=== PATIENT | male | born 1950 | race Caucasian/White ===

== ENCOUNTER 2020-08-07 11:10 | Outpatient (REF) | payer MEDICARE, BC, SELFPAY ==
[2020-08-07 13:48] LABS: MANUAL DIFF FLAG NO
[2020-08-07 13:54] LABS: Basophils Percent Auto 0.4 % (0-2); Eosinophils Absolute Auto 0.2 X10*3/uL (0.0-0.4); Eosinophils Percent Auto 2.4 % (0-4); Hematocrit 42.1 % (42-52); Hemoglobin 14.6 g/dl (14.0-18.0); Imm Gran Abs Auto 0.03 X10*3/uL (0.00-0.03); Imm Gran Pct Auto 0.3 % (0.0-0.4); Lymphocytes Absolute Auto 2.2 X10*3/uL (1.2-4.9); Lymphocytes Percent Auto 23.8 % (20-40); Mean Corpuscular HGB Conc 34.7 g/dl (31.0-36.0); Mean Corpuscular Hemoglobin 31.6 pg (27.0-33.0); Mean Corpuscular Volume 91.1 fL (80-98); Mean Platelet Volume 9.6 fL (9.4-12.4); Monocytes Absolute Auto 0.8 X10*3/uL (0.1-1.2); Monocytes Percent Auto 8.9 % (2-11); Neutrophils Percent Auto 64.2 % (45-73); Platelet Count 319 X10*3/uL (160-400); Red Blood Count 4.62 X10*6/uL (4.60-5.80); Red Cell Distribution Width 13.2 % (11.0-16.0); White Blood Count 9.3 X10*3/uL (4.8-10.8)
[2020-08-07 14:05] LABS: Estimated Average Glucose 140 mg/dL; Hemoglobin A1c % 6.5 %
[2020-08-07 14:33] LABS: Alanine Aminotransferase 22 U/L (0-40); Albumin Level 4.5 g/dL (3.5-5.0); Alkaline Phosphatase 66 U/L (39-117); Anion Gap 14 (12-20); Aspartate Amino Transferase 19 U/L (5-37); Bilirubin Total 0.6 mg/dL (0.0-1.0); Blood Urea Nitrogen 19 mg/dL (9-16); Calcium 10.3 mg/dL (8.4-10.2); Carbon Dioxide 26 mmol/L (22-29); Chloride 100 mmol/L (96-108); Estimated Glomerular Filt Rate > 60; Glucose Random 133 mg/dL (60-115); Potassium 4.7 mmol/l (3.3-5.1); Sodium 135 mmol/L (135-145); Total Protein 7.2 g/dL (6.5-8.0)
== END 2020-08-07 11:11 | disposition home or self-care (01) ==
LOC: HO.10HDL 11:10
PROVIDERS: Visit Provider Internal Medicine
DX: D64.9 Anemia, unspecified (principal); I48.0 Paroxysmal atrial fibrillation; R73.03 Prediabetes
CPT/HCPCS: 36415; 80053; 83036; 85025

== ENCOUNTER 2020-09-06 10:47 | Outpatient (REF) | payer BC, SELFPAY ==
[2020-09-06 15:03] LABS: PSA,Total (Free>4and<10) 4.24 ng/mL (0.00-4.00)
[2020-09-07 12:01] LABS: Percent Free Prostate Spec Ag 22 % (calc) (>25); Prostate Specific Ag Total 4.5 ng/mL (< OR = 4.0)
== END 2020-09-06 10:48 | disposition home or self-care (01) ==
LOC: HO.10HDL 10:47
PROVIDERS: Visit Provider Urology
DX: R97.20 Elevated prostate specific antigen [PSA] (principal)
CPT/HCPCS: 84153

== ENCOUNTER 2020-09-10 12:35 | Outpatient (REF) | payer MEDICARE, SELFPAY ==
--- NOTE | 2020-09-10 13:04 | XR_ITS ---
EXAMINATION: XR FOOT, LEFT CLINICAL INFORMATION: Arthritis COMPARISON: None TECHNIQUE: AP, lateral, and oblique views of the left foot. FINDINGS: There is arthritis at the first MTP and MTT joints with joint space narrowing and osteophyte formation. There is an old healed distal fibular fracture and plate and screws. No acute fracture or dislocation is seen. There is pes planus. Soft tissues are unremarkable. XR/XR foot LT min 3V IMPRESSION: Old trauma to the distal fibula. Arthritis at the first MTP and MTT joints. Pes planus.
[2020-09-10 13:36] LABS: MANUAL DIFF FLAG NO
[2020-09-10 13:53] LABS: Basophils Absolute Auto 0.1 X10*3/uL (0.0-0.2); Basophils Percent Auto 0.6 % (0-2); Eosinophils Absolute Auto 0.2 X10*3/uL (0.0-0.4); Eosinophils Percent Auto 1.5 % (0-4); Hematocrit 39.2 % (42-52); Hemoglobin 13.5 g/dl (14.0-18.0); Imm Gran Abs Auto 0.04 X10*3/uL (0.00-0.03); Imm Gran Pct Auto 0.4 % (0.0-0.4); Lymphocytes Absolute Auto 2.1 X10*3/uL (1.2-4.9); Mean Corpuscular HGB Conc 34.4 g/dl (31.0-36.0); Mean Corpuscular Hemoglobin 31.3 pg (27.0-33.0); Mean Corpuscular Volume 90.7 fL (80-98); Mean Platelet Volume 8.9 fL (9.4-12.4); Monocytes Absolute Auto 0.8 X10*3/uL (0.1-1.2); Monocytes Percent Auto 7.6 % (2-11); Neutrophils Absolute Auto 7.3 X10*3/uL (2.0-8.3); Neutrophils Percent Auto 69.9 % (45-73); Platelet Count 507 X10*3/uL (160-400); Red Blood Count 4.32 X10*6/uL (4.60-5.80); Red Cell Distribution Width 12.8 % (11.0-16.0); White Blood Count 10.4 X10*3/uL (4.8-10.8)
[2020-09-10 14:19] LABS: Alanine Aminotransferase 17 U/L (0-40); Albumin Level 4.3 g/dL (3.5-5.0); Alkaline Phosphatase 79 U/L (39-117); Anion Gap 16 (12-20); Aspartate Amino Transferase 15 U/L (5-37); Bilirubin Total 0.4 mg/dL (0.0-1.0); Blood Urea Nitrogen 17 mg/dL (9-16); Calcium 9.8 mg/dL (8.4-10.2); Carbon Dioxide 25 mmol/L (22-29); Chloride 99 mmol/L (96-108); Estimated Glomerular Filt Rate > 60; Glucose Random 138 mg/dL (60-115); Potassium 4.8 mmol/l (3.3-5.1); Sodium 135 mmol/L (135-145); Total Protein 7.3 g/dL (6.5-8.0)
[2020-09-10 14:37] LABS: Estimated Average Glucose 151 mg/dL; Hemoglobin A1c % 6.9 %
== END 2020-09-10 12:36 | disposition home or self-care (01) ==
LOC: HO.LAB 12:35
PROVIDERS: Visit Provider Internal Medicine
DX: L03.032 Cellulitis of left toe (principal)
CPT/HCPCS: 36415; 73630; 80053; 83036; 85025; 86140; 87071; 87147; 87186; 87205

== ENCOUNTER → 2020-09-11 15:08 | Outpatient (BNVA) | payer SELFPAY | PROVIDERS: PCP Internal Medicine; Visit Provider Surgery | DX: Z76.89 Persons encountering health services in other specified circumstances (principal) ==

== ENCOUNTER → 2020-09-13 12:58 | Outpatient (BNVA) | payer MEDICARE, BC, SELFPAY | PROVIDERS: PCP Internal Medicine; Visit Provider Surgery | DX: M86.9 Osteomyelitis, unspecified (principal) | CPT/HCPCS: 99211 ==

== ENCOUNTER → 2020-09-18 10:22 | Outpatient (BNVA) | payer BC, MEDICARE, SELFPAY | PROVIDERS: PCP Internal Medicine; Referring Provider Internal Medicine; Visit Provider Surgery | DX: Z76.89 Persons encountering health services in other specified circumstances (principal) ==

== ENCOUNTER → 2020-09-19 11:11 | Outpatient (BNVA) | payer SELFPAY | PROVIDERS: PCP Internal Medicine; Visit Provider Internal Medicine | DX: M86.9 Osteomyelitis, unspecified (principal) | CPT/HCPCS: 99212 ==

== ENCOUNTER → 2020-09-25 09:30 | Outpatient (BNVA) | payer SELFPAY | PROVIDERS: PCP Internal Medicine; Visit Provider Surgery | DX: M86.9 Osteomyelitis, unspecified (principal); L97.529 Non-pressure chronic ulcer of other part of left foot with unspecified severity | CPT/HCPCS: 99212 ==

== ENCOUNTER → 2020-10-08 10:20 | Outpatient (BNVA) | payer MEDICARE, BC, SELFPAY | PROVIDERS: PCP Internal Medicine; Visit Provider Internal Medicine | DX: L97.529 Non-pressure chronic ulcer of other part of left foot with unspecified severity (principal); M86.9 Osteomyelitis, unspecified | CPT/HCPCS: 99212 ==

== ENCOUNTER 2020-10-10 11:36 | Inpatient (IN) | payer MEDICARE, BC, SELFPAY ==
[2020-10-04 12:36] VITALS: BMI 27.5
--- NOTE | 2020-10-04 14:42 | P.CONAN_ITS ---
Documented by User: Nikky Francisco 10/04/20 14:45 HPI - Anesthesia Eval Consult details Narrative: 70yo M for Left Partial Amputation 2nd Toe PMFSH Past Medical History Medical History (Updated 10/10/20 @ 11:34 by Paula He) Amputated toe of right foot Arrhythmia History of amputation of toe History of heart valve abnormality History of neuropathy History of tachycardia On anticoagulant therapy Osteomyelitis of second toe of left foot Pre-diabetes Ulcer of left second toe Family History Family History Mother No problems noted. Surgical History Surgical History (Updated 10/04/20 @ 12:52 by Sunita Pacheco) Hx of amputation Status post ORIF of fracture of ankle Social History Social History Alcohol intake: never Smoking Status: Never smoker Use of substances other than those prescribed or required for medical reasons: No Advance Directives: Yes Advance Directives Information Provided: Yes Advance Directives on File: Yes Advance Directives Date on File: 08/07/20 Recently lost weight without trying: No Meds Allergies Allergy/AdvReac Type Severity Reaction Status Date / Time penicillin V Allergy Intermediate rash Verified 10/04/20 12:52 Erythromycin Allergy Intermediate diarrhea Uncoded 10/04/20 12:52 Home Medications Medication Instructions Recorded Confirmed Type apixaban 5 mg tablet 5 mg PO BID 09/11/20 10/04/20 History metoprolol succinate 25 mg 25 mg PO DAILY 09/11/20 10/04/20 History tablet,extended release 24 hr doxycycline monohydrate 1 cap PO BID 10/04/20 10/04/20 History Exam Exam Date and Time: October 04, 2020 1442 Height,Weight and Vital Signs: Height 6 ft 3 in Weight 99.79 kg Pertinent Lab Results Pertinent Lab Results: Laboratory Tests 09/10/20 09/10/20 13:00 13:00 WBC 10.4 Hgb 13.5 L Hct 39.2 L Plt Count 507 H D Sodium 135 Potassium 4.8 Chloride 99 Carbon Dioxide 25 BUN 17 H Creatinine 0.97 Narrative Narrative: EKG 07/11/20: SR with P SVCs @ 74 Echo 10/2019: Nml LV sys function with mild LVH, impaired relaxation, elevated filling pressures; Mild dilated LA; Mod thickening of anterior mitral leaflet with mild prolapse with mild to mod eccentric MR posteriorly directed; Normal RV sys pressure; No pericardial effusion Assessment and Plan Assessment Anesthesia Assessment: Chart Reviewed Documented by User: Paula He 10/10/20 11:52 [facility] Past Medical History Medical History (Updated 10/10/20 @ 11:34 by Paula He) Amputated toe of right foot Arrhythmia History of amputation of toe History of heart valve abnormality History of neuropathy History of tachycardia On anticoagulant therapy Osteomyelitis of second toe of left foot Pre-diabetes Ulcer of left second toe Family History Family History Mother No problems noted. Surgical History Surgical History (Updated 10/04/20 @ 12:52 by Sunita Pacheco) Hx of amputation Status post ORIF of fracture of ankle History of Problems with Anesthesia: No Social History Social History Alcohol intake: never Smoking Status: Never smoker Use of substances other than those prescribed or required for medical reasons: No Advance Directives: Yes Advance Directives Information Provided: Yes Advance Directives on File: Yes Advance Directives Date on File: 08/07/20 Recently lost weight without trying: No Meds Allergies Allergy/AdvReac Type Severity Reaction Status Date / Time penicillin V Allergy Intermediate rash Verified 10/04/20 12:52 Erythromycin Allergy Intermediate diarrhea Uncoded 10/04/20 12:52 Home Medications Medication Instructions Recorded Confirmed Type apixaban 5 mg tablet 5 mg PO BID 09/11/20 10/04/20 History metoprolol succinate 25 mg 25 mg PO DAILY 09/11/20 10/04/20 History tablet,extended release 24 hr doxycycline monohydrate 1 cap PO BID 10/04/20 10/04/20 History Exam Height,Weight and Vital Signs: Vital Signs Temp Pulse Resp BP Pulse Ox 10/10/20 10:11 96.9 F 77 18 145/74 H 97 Narrative Narrative: Overbite, chin recession, small mouth opening Airway Mallampati Class: II TM Dist: >3cm Neck ROM: Full Heart: RRR?murmur Lungs: CTAB Assessment and Plan Assessment Anesthesia Assessment: Anesthesia Plan Discussed and Chart Reviewed Final Anesthetic Review NPO: Yes ASA Class: III Final Preanesthetic Review: No Changes in Pt Med Stat, Meds/Allgs Chart Reviewed, Consent Obtained/Reviewed and Anes Risks/Benef Reviewed Patient Risk: Intermediate Procedure Risk: Low Anesthetic Plan Anesthetic Plan: GA Disposition: Standard PACU
[2020-10-10] VITALS (13 sets, daily range): BP systolic 124–149; BP diastolic 54–84; PULSE 68–101; RESP 12–20; TEMP 35.9–36.4; O2SAT 94–100
[2020-10-10] MEDS: Lactated Ringers 1,000 ML 50 ML IVCONT (10:03)
[2020-10-10] MEDS: ceFAZolin Sodium/Dextrose,Iso 2 GM/50 ML PIGGYBACK IV (10:07)
[2020-10-10 10:28] LABS: COVID-19 Test Negative (Negative)
--- NOTE | 2020-10-10 11:20 | MHC.SHP ---
Pre-Procedural Eval Section A The patient is an INPATIENT: No Changes since office visit: Yes Patient answered all questions; No Cold of Flu in the past 2 weeks, No New Medical Problems and No Changes in Medication The History & Physical has been completed within 30 days and I have reviewed it.: Yes Section B Chief Complaint: Osteomyelitis,Non-pressure chronic ulcer of other Allergies: Allergies Allergy/AdvReac Type Severity Reaction Status Date / Time penicillin V Allergy Intermediate rash Verified 10/04/20 12:52 Erythromycin Allergy Intermediate diarrhea Uncoded 10/04/20 12:52 Plan Patient has been examined and remains a candidate for the planned procedure
--- NOTE | 2020-10-10 12:35 | W.PM.OPN ---
Operative Note Operative Note Date of Service: 10/10/20 Narrative: Preoperative diagnosis: Osteomyelitis distal phalanx left 2nd toe Postoperative diagnosis: Same Procedure: Partial amputation left 2nd toe Acoustic Warfare Analyst: Cecily Fleming p.a.-C Anesthesia: General, laryngeal mask and digital block Specimen: Distal aspect left 2nd toe Estimated blood loss: Less than 2 cc Immediate complications: None Indications: This is a 70-year-old gentleman who developed an ulcer on the tip of his left 2nd toe with associated cellulitis. Examination revealed that the ulcer probe to bone and x-ray findings were consistent with osteomyelitis in the distal phalanx of the left 2nd toe. He was not considered to be an appropriate candidate for long-term antibiotics and amputation was recommended. Procedure in detail: With patient in the supine position after induction of adequate general anesthesia, time-out procedure was performed. He received 2 g of cefazolin for antibiotic prophylaxis. The left foot and ankle were prepped with Betadine solution and were draped sterilely. A fishmouth type incision was marked on the distal aspect of the left 2nd toe and digital block was placed using 4 cc of a mixture of 0.5% Marcaine and 2% lidocaine. Incision was made and was carried through the subcutaneous tissues to the level of the bone. The toe was disarticulated at the interphalangeal joint. Cartilage was removed from the exposed phalanx using the bone cutter and rongeur. A file was then employed to smooth the rough edges of exposed bone. The wound was irrigated with saline solution. There was no significant bleeding. The proximal leg incision was closed with 1 suture of 3-0 nylon on either side. The flaps were then inspected. The posterior flap was significantly longer and it appeared that there would be redundancy of soft tissue. The posterior flap was therefore trimmed to excise a central with of approximately 3 mm of skin and subcutaneous tissues. Only minor bleeding was encountered. The wound was then closed with a single subcutaneous suture of 3 0 Polysorb placed centrally. Skin was closed with interrupted sutures of 3 0 nylon. A quarter-inch [place] drain was trimmed to create a thin drain at approximately 1.3 cm in length. This was placed into the depth of the incision and was brought out between at stitches laterally. A bulky dry sterile dressing was applied. He tolerated the procedure well and was transported to the recovery room in stable condition. Sponge and sharp counts were correct.
[2020-10-10] MEDS: Heparin Sodium,Porcine 5,000 UNIT/ML VIAL 5000 UNIT SUBCUT (14:21)
[2020-10-10 14:26] LABS: Glucose, Whole Blood 155 mg/dL (60-115)
[2020-10-10] MEDS: 0.9 % Sodium Chloride Flush 3 ML SYRINGE IVFLUSH (15:43)
[2020-10-10] MEDS: Docusate Sodium 100 MG CAPSULE PO (21:42)
[2020-10-11] MEDS: Heparin Sodium,Porcine 5,000 UNIT/ML VIAL 5000 UNIT SUBCUT (01:29)
[2020-10-11] MEDS: 0.9 % Sodium Chloride Flush 3 ML SYRINGE IVFLUSH ×2 (01:29→07:45)
[2020-10-11 02:00] VITALS: BP 138/77; PULSE 78; RESP 19; TEMP 36.6; O2SAT 96
[2020-10-11 06:00] VITALS: BP 134/75; PULSE 78; RESP 19; TEMP 36.6; O2SAT 97
[2020-10-11 07:18] VITALS: BP 119/56; PULSE 103; RESP 17; TEMP 36.4; O2SAT 96
[2020-10-11] MEDS: Docusate Sodium 100 MG CAPSULE PO (07:44)
[2020-10-11] MEDS: Metoprolol Succinate ER 25 MG TAB.ER.24H PO (07:44)
--- NOTE | 2020-10-11 08:21 | PM.PNGS ---
Subjective Subjective Date of Service: 10/11/20 Interval history: Alert. Reports that he slept well. No complaints of pain. Physical Exam Vital Signs: Vital Signs: Last Vital Signs Temp 97.6 F 10/11/20 07:18 Pulse 103 H 10/11/20 07:18 Resp 17 10/11/20 07:18 BP 119/56 L 10/11/20 07:18 Pulse Ox 96 10/11/20 07:18 Body Mass Index 27.5 Const: Other: Alert, appears comfortable Resp: Other: Clear to auscultation Cardio: Other: Regular rate and rhythm with an occasional ectopic beat GI: Other: Soft, nontender, nondistended Extrem: Other: Left 2nd toe partial amputation site: Mild edema and mild erythema consistent with hyperemia and bruising, slight bleeding from skin edges. [place] drain in place. Progress Note: A&P Assessment and plan (1) Osteomyelitis of second toe of left foot: Problem details: There is no benefit to antibiotics at this point beyond surgery Status: Acute Assessment and Plan: Treated surgically this admission with partial amputation of the left 2nd toe (2) Ulcer of left second toe: Status: Acute Assessment and Plan: Treated surgically this admission with partial amputation of the left 2nd toe (3) Amputation of toe of left foot: Status: Acute Assessment and Plan: He is doing well day 1 post partial amputation of the left 2nd toe for nonhealing ulcer and associated osteomyelitis of the distal phalanx. He began physical therapy yesterday. He appears stable for discharge home with visiting nurses. He had VNA services prior to this admission. He is chronically anticoagulated on Eliquis, which has been on hold for surgery and will be resumed tomorrow. He will follow up in the office in 2 weeks. Fall Risk Details Current Medications: Current Medications Generic Name Dose Route Start Last Admin Trade Name Freq PRN Reason Stop Dose Admin Acetaminophen 650 mg 10/10/20 13:01 Acetaminophen 325 Mg Tablet PO Q6H PRN Pain, Mild (Pain Scale 1-3) Docusate Sodium 100 mg 10/10/20 21:00 10/11/20 07:44 Docusate Sodium 100 Mg Capsule PO 100 mg BID CODY Administration Heparin Sodium (Porcine) 5,000 unit 10/10/20 13:00 10/11/20 01:29 Heparin Sodium,Porcine 5,000 Unit/Ml Vial SUBCUT 5,000 unit Q12H CODY Administration Metoprolol Succinate 25 mg 10/11/20 09:00 10/11/20 07:44 Metoprolol Succinate Er 25 Mg Tab.Er.24h PO 25 mg DAILY CODY Administration Protocol Morphine Sulfate 2 mg 10/10/20 13:01 Morphine Sulfate 2 Mg/Ml Cartridge IVPUSH Q3H PRN Pain, Moderate (Pain Scale 4-6 Ondansetron HCl 4 mg 10/10/20 13:01 Ondansetron Hcl 4 Mg/2 Ml Vial IVPUSH Q8H PRN Nausea Oxycodone HCl 5 mg 10/10/20 13:01 Oxycodone Hcl Immed Release 5 Mg Tablet PO Q4H PRN Pain, Moderate (Pain Scale 4-6 Sodium Chloride 3 ml 10/10/20 16:00 10/11/20 07:45 0.9 % Sodium Chloride Flush 3 Ml Syringe IVFLUSH 3 ml QSHIFT CODY Administration Time Spent With Patient Time: Total time spent is greater than 50% in coordination of care (as documented) at patient's floor/unit and/or counseling patient: Time with patient: 15 - 24 minutes
--- NOTE | 2020-10-11 08:37 | P.F2F_ITS ---
Service Date Service Date: 10/11/20 Encounter Date of encounter: 10/11/20 Encounter: Postoperative care, dressing change day 1 status post partial amputation left 2nd toe Reasons for Services Signs and symptoms assessed: Monitor for signs and symptoms of infection, bleeding left 2nd toe amputation site. Continue wound care. Patient is to resume Eliquis after VNA visit on 10/12/2020. Reason for care home: wound care (Daily dry sterile dressing left foot, 2nd toe amputation site) Homebound: Leaving the home is medically contraindicated at this time without the asist of a device and/or another person due th the listed conditions above and below. Reason homebound: unsteady gait / fall risk and poor balance / fall risk Homebound supporting statement: Increased instability due to use of offloading shoe left foot postoperatively. Ongoing need for wound care left foot. Certification: Based on the above findings, I certify that this patient is confined to the home and needs intermittent care home care, physical therapy and/or speech therapy, or continues to need occupational therapy. The patient is under my care, and I have initiated the establishment of the plan of care. The patient will be followed by a physician who will periodically review the plan of care.
--- NOTE | 2020-10-11 09:47 | HO.POSTANES ---
Post Anesthesia Evaluation Post Anesthesia Evaluation Vital Signs: Vital Signs Temp Pulse Resp BP Pulse Ox 10/11/20 07:18 97.6 F 103 H 17 119/56 L 96 10/11/20 06:00 97.8 F 78 19 134/75 97 10/11/20 02:00 97.8 F 78 19 138/77 96 Anesthesia: General Mental Status: Awake Pain Control: Satisfactory Nausea/Vomiting: None Hydration: Adequate Anesthesia-Related Issues: No Anes. Related Issues
--- NOTE | 2020-10-11 10:06 | MHC.CM.PN ---
PATIENT IS DISCHARGED HOME WITH RESUMPTION OF HIS [facility] [facility] SERVICES. PATIENT LIVES WITH MOTHER AND SIBLING THERE ARE CANES AND WALKERS IN HE HOME IF PATIENT FEELS THE NEED TO RELY ON POST DISCHARGE. NO [facility]. PATIENT USES [facility] OR [facility] [place] [facility] FOR HIS TRANSPORT NEEDS. IMM 10/11 IN CHART.
--- NOTE | 2020-10-11 10:44 | PM.DS ---
DS: Providers Provider Date of admission: 10/10/20 11:36 Primary care physician: Ramin Medrano MD DS: Diagnosis Discharge Diagnosis (1) Osteomyelitis of second toe of left foot: Status: Resolved Problem details: Treated surgically with partial amputation of left 2nd toe (2) Ulcer of left second toe: Status: Resolved Problem details: Treated surgically with partial amputation left 2nd toe (3) Amputation of toe of left foot: Status: Acute Problem details: Performed for treatment of nonhealing ulcer tip of left 2nd toe with associated osteomyelitis of distal phalanx. DS: Medications Discharge Medications Home Medications: Home Medications Medication Instructions Recorded Confirmed apixaban 5 mg tablet 5 mg PO BID 09/11/20 10/04/20 metoprolol succinate 25 mg 25 mg PO DAILY 09/11/20 10/04/20 tablet,extended release 24 hr DS: Summary Hospital Course Hospital Course: On the day of admission, he was taken to the operating room where partial amputation of the left 2nd toe was carried out. He tolerated the procedure well. He had no difficulty with pain postoperatively. He was seen by Physical therapy on the day of surgery and again the following morning for safety assessment and gait training with offloading shoe for left foot. He was able to ambulate safely using the offloading shoe and a cane. The [place] drain was removed from the operative site left 2nd toe on the 1st postoperative morning and a new dry sterile dressing was applied. He was felt to be stable for discharge following physical therapy assessment on the 1st postoperative day. He is to resume his usual Eliquis dose after he is seen by the visiting nurses on the day following discharge, 10/12/2020. Time Spent with Patient Time attestation: Total time spent providing and/or coordinating discharge services: Less than 30 minutes Physical Exam Vital Signs: Vital Signs: Last Vital Signs Temp 97.6 F 10/11/20 07:18 Pulse 103 H 10/11/20 07:18 Resp 17 10/11/20 07:18 BP 119/56 L 10/11/20 07:18 Pulse Ox 96 10/11/20 07:18 Body Mass Index 27.5 Const: Other: Alert, cooperative, in no distress HENMT: Head: Yes normocephalic and Yes atraumatic Resp: Auscultation: clear to auscultation bilaterally Cardio: Rate: regular rate Rhythm: regular rhythm Extrem: Other: Left 2nd toe partial amputation site sutures intact, slight oozing from suture line with removal of adherent dressing, mild edema and erythema consistent with a combination of hyperemia and mild ecchymotic change DS: Data Data Completed and Pending Pending studies at discharge: Pending at discharge 10/10/20 12:05 Surgical [PTH] Routine Labs on day of discharge: 10/10/20 09:33 ceFAZolin Sodium/Dextrose,Iso [Ancef] 2 gm in 50 ml IV PREOP 10/10/20 09:38 COVID-19 ID NOW ([place]) Stat 10/10/20 09:45 Lactated Ringers [Lr] 1,000 ml IVCONT 50 mls/hr 10/10/20 10:05 Glucose, Whole Blood Routine ceFAZolin Sodium/Dextrose,Iso [Ancef] 2 gm in 50 ml .ROUTE As directed 10/10/20 10:36 Lidocaine HCl 2 % MPF [Xylocaine 2 % MPF] 5 ml .ROUTE .STK-MED ONE Midazolam HCl/PF [Versed] 2 mg .ROUTE .STK-MED ONE fentaNYL citrate/PF [Sublimaze] 50 mcg .ROUTE .STK-MED ONE propofoL [Diprivan] 200 mg IVPUSH .STK-MED ONE 10/10/20 11:16 Bupivacaine MPF 0.5 % [Sensorcaine MPF 0.5% 10 ML] 10 ml .ROUTE .STK-MED ONE Lidocaine HCl 1 % MPF [Xylocaine 1 % MPF] 5 ml .ROUTE .STK-MED ONE 10/10/20 12:25 Transfer Order Routine 10/10/20 14:58 Continuous pulse oximetry CONT Vital Signs Q1H Vital Signs Q5MIN Laboratory Last Values POC Glucose 155 mg/dL (60-115) H 10/10/20 10:05 COVID-19 ([facility]) Negative (Negative) 10/10/20 09:38 COVID-19 Clin Com See Note 10/10/20 09:38 Discharge Plan Discharge Anticipated Discharge Date/Time: 10/11/20 00:36 Patient Disposition: Home Health Service Referrals: Ramin Medrano MD [Primary Care Provider] - Hilda Key MD [Physician] - (Follow-up in the office in 2 weeks) Discharge Medications: Continued metoprolol succinate 25 mg tablet extended release 24 hr 25 mg PO DAILY RF: 0 Held Eliquis 5 mg tablet 5 mg PO BID RF: 0 Hold Instructions: Resume on 10/12/20. Resume taking your Eliquis on 10/12/2020, after your visit with the visiting nurse. Discontinued doxycycline hyclate 100 mg tablet 100 mg PO BID Qty: 14 RF: 0 doxycycline monohydrate 100 mg capsule 1 cap PO BID RF: 0 doxycycline hyclate 100 mg tablet,delayed release (DR/EC) 100 mg PO BID 30 Days Qty: 60 RF: 0 doxycycline monohydrate [Monodox] 100 mg capsule 100 mg PO BID Qty: 30 RF: 1 Discharge Orders: Discharge Order (Routine); Ordered 10/11/20 Ordered By: Hilda Key Diet: advance to usual diet Activity on Discharge: Use cane or walker Activity Restrictions/Additional Instructions: Use your offloading shoe left foot at all times for ambulation. Keep the left foot dressing clean and dry. Use acetaminophen 650 mg every 6 hours if needed for pain. Visit Report Forms: Patient Portal Discharge page Care Plan Goals: Healing of amputation site left 2nd toe, return to normal function Health Concerns: Recent partial amputation left 2nd toe Plan of Treatment: Ambulation with offloading shoe left foot until amputation site is adequately healed, VNA for wound care.
--- NOTE | 2020-10-11 10:50 | PM.DS ---
DS: Providers Provider Date of admission: 10/10/20 11:36 Primary care physician: Ramin Medrano MD DS: Diagnosis Discharge Diagnosis (1) Osteomyelitis of second toe of left foot: Status: Resolved Problem details: Treated surgically with partial amputation of left 2nd toe (2) Ulcer of left second toe: Status: Resolved Problem details: Treated surgically with partial amputation left 2nd toe (3) Amputation of toe of left foot: Status: Acute Problem details: Performed for treatment of nonhealing ulcer tip of left 2nd toe with associated osteomyelitis of distal phalanx. DS: Medications Discharge Medications Home Medications: Home Medications Medication Instructions Recorded Confirmed apixaban 5 mg tablet 5 mg PO BID 09/11/20 10/04/20 metoprolol succinate 25 mg 25 mg PO DAILY 09/11/20 10/04/20 tablet,extended release 24 hr DS: Summary Hospital Course Hospital Course: Brief HPI: This is a 70-year-old gentleman who developed an ulcer on the tip of his left 2nd toe with associated cellulitis. Examination revealed that the ulcer probe to bone and x-ray findings were consistent with osteomyelitis in the distal phalanx of the left 2nd toe. He was not considered to be an appropriate candidate for long-term antibiotics and amputation was recommended. Hospital Course: On the day of admission, he was taken to the operating room where partial amputation of the left 2nd toe was carried out. He tolerated the procedure well. He had no difficulty with pain postoperatively. He was seen by Physical therapy on the day of surgery and again the following morning for safety assessment and gait training with offloading shoe for left foot. He was able to ambulate safely using the offloading shoe and a cane. Dressing change on the 1st postoperative day was clean with mild edema and mild erythema. [place] drain was in place. He was discharged to home on 10/11/20 in stable condition with VNA services. He is to resume his eliquis 10/12/20. He is to ambulate with an offloading shoe until the amputation site is healed. Status at Discharge Functional status at discharge: uses cane/walker Overall status at discharge: patient is progressing back to baseline Time Spent with Patient Time attestation: Total time spent providing and/or coordinating discharge services: Discharge coordination time: Greater than 30 minutes Physical Exam Vital Signs: Vital Signs: Last Vital Signs Temp 97.6 F 10/11/20 07:18 Pulse 103 H 12/10/20 07:18 Resp 17 10/11/20 07:18 BP 119/56 L 10/11/20 07:18 Pulse Ox 96 10/11/20 07:18 Body Mass Index 27.5 Const: General: comfortable, no acute distress and alert Orientation/consciousness: patient oriented x3 Resp: Effort & Inspection: normal respiratory effort Skin: Other: normal color, warm and dry Neuro: General: patient oriented x3 Extrem: Other: left second toe amputation site- clean, mild edema and mild erythema consistent with hyperemia and bruising, slight bleeding from skin edges. [place] drain in place. DS: Data Data Completed and Pending Pending studies at discharge: Pending at discharge 10/10/20 12:05 Surgical [PTH] Routine Labs on day of discharge: 10/10/20 09:33 ceFAZolin Sodium/Dextrose,Iso [Ancef] 2 gm in 50 ml IV PREOP 10/10/20 09:38 COVID-19 ID NOW ([facility]) Stat 10/10/20 09:45 Lactated Ringers [Lr] 1,000 ml IVCONT 50 mls/hr 10/10/20 10:05 Glucose, Whole Blood Routine ceFAZolin Sodium/Dextrose,Iso [Ancef] 2 gm in 50 ml .ROUTE As directed 10/10/20 10:36 Lidocaine HCl 2 % MPF [Xylocaine 2 % MPF] 5 ml .ROUTE .STK-MED ONE Midazolam HCl/PF [Versed] 2 mg .ROUTE .STK-MED ONE fentaNYL citrate/PF [Sublimaze] 50 mcg .ROUTE .STK-MED ONE propofoL [Diprivan] 200 mg IVPUSH .STK-MED ONE 10/10/20 11:16 Bupivacaine MPF 0.5 % [Sensorcaine MPF 0.5% 10 ML] 10 ml .ROUTE .STK-MED ONE Lidocaine HCl 1 % MPF [Xylocaine 1 % MPF] 5 ml .ROUTE .STK-MED ONE 10/10/20 12:25 Transfer Order Routine 10/10/20 14:58 Continuous pulse oximetry CONT Vital Signs Q1H Vital Signs Q5MIN Laboratory Last Values POC Glucose 155 mg/dL (60-115) H 10/10/20 10:05 COVID-19 ([facility]) Negative (Negative) 10/10/20 09:38 COVID-19 Clin Com See Note 10/10/20 09:38 Discharge Plan Discharge Anticipated Discharge Date/Time: 10/11/20 00:36 Patient Disposition: Home Health Service Referrals: Ramin Medrano MD [Primary Care Provider] - Hilda Key MD [Physician] - (Follow-up in the office in 2 weeks) Discharge Medications: Continued metoprolol succinate 25 mg tablet extended release 24 hr 25 mg PO DAILY RF: 0 Held Eliquis 5 mg tablet 5 mg PO BID RF: 0 Hold Instructions: Resume on 10/12/20. Resume taking your Eliquis on 10/12/2020, after your visit with the visiting nurse. Discontinued doxycycline hyclate 100 mg tablet 100 mg PO BID Qty: 14 RF: 0 doxycycline monohydrate 100 mg capsule 1 cap PO BID RF: 0 doxycycline hyclate 100 mg tablet,delayed release (DR/EC) 100 mg PO BID 30 Days Qty: 60 RF: 0 doxycycline monohydrate [Monodox] 100 mg capsule 100 mg PO BID Qty: 30 RF: 1 Discharge Orders: Discharge Order (Routine); Ordered 10/11/20 Ordered By: Hilda Key Diet: advance to usual diet Activity on Discharge: Use cane or walker Activity Restrictions/Additional Instructions: Use your offloading shoe left foot at all times for ambulation. Keep the left foot dressing clean and dry. Use acetaminophen 650 mg every 6 hours if needed for pain. Visit Report Forms: Patient Portal Discharge page Care Plan Goals: Healing of amputation site left 2nd toe, return to normal function Health Concerns: Recent partial amputation left 2nd toe Plan of Treatment: Ambulation with offloading shoe left foot until amputation site is adequately healed, VNA for wound care.
== END 2020-10-11 11:00 | disposition home health service (06) | DRG 504 ==
LOC: HO.SSSA 11:37 → HO.S3 12:40
PROVIDERS: Nurse Practitioner; Admitting Provider Surgery; PCP Internal Medicine; Visit Provider Surgery
PROC: (CPT 28825; principal; 2020-10-10 11:00)
DX: M86.9 Osteomyelitis, unspecified (principal); L97.526 Non-pressure chronic ulcer of other part of left foot with bone involvement without evidence of necrosis; Z20.828 Contact with and (suspected) exposure to other viral communicable diseases; Z88.0 Allergy status to penicillin; Z79.01 Long term (current) use of anticoagulants; Z79.899 Other long term (current) drug therapy
CPT/HCPCS: 28825; 82947; 87635; 88304; 88305; 88311; 97116; 97161; 99024; J0690; J2250; J3010

== ENCOUNTER → 2020-10-23 10:33 | Outpatient (BNVA) | payer MEDICARE, BC, SELFPAY | PROVIDERS: PCP Internal Medicine; Visit Provider Surgery | DX: R73.03 Prediabetes (principal); M86.9 Osteomyelitis, unspecified; Z89.422 Acquired absence of other left toe(s) | CPT/HCPCS: 99212 ==

== ENCOUNTER 2020-11-06 10:19 | Outpatient (REF) | payer MEDICARE, BC, SELFPAY ==
[2020-11-06 14:15] LABS: MANUAL DIFF FLAG NO
[2020-11-06 14:20] LABS: Basophils Percent Auto 0.4 % (0-2); Eosinophils Absolute Auto 0.1 X10*3/uL (0.0-0.4); Eosinophils Percent Auto 1.5 % (0-4); Hematocrit 41.1 % (42-52); Imm Gran Abs Auto 0.02 X10*3/uL (0.00-0.03); Imm Gran Pct Auto 0.2 % (0.0-0.4); Lymphocytes Percent Auto 20.9 % (20-40); Mean Corpuscular HGB Conc 34.1 g/dl (31.0-36.0); Mean Corpuscular Hemoglobin 31.1 pg (27.0-33.0); Mean Corpuscular Volume 91.3 fL (80-98); Mean Platelet Volume 9.6 fL (9.4-12.4); Monocytes Absolute Auto 0.7 X10*3/uL (0.1-1.2); Monocytes Percent Auto 7.3 % (2-11); Neutrophils Absolute Auto 6.6 X10*3/uL (2.0-8.3); Neutrophils Percent Auto 69.7 % (45-73); Platelet Count 303 X10*3/uL (160-400); Red Cell Distribution Width 13.1 % (11.0-16.0); White Blood Count 9.4 X10*3/uL (4.8-10.8)
[2020-11-06 14:41] LABS: Anion Gap 16 (12-20); Blood Urea Nitrogen 18 mg/dL (9-16); Calcium 9.2 mg/dL (8.4-10.2); Carbon Dioxide 25 mmol/L (22-29); Chloride 100 mmol/L (96-108); Estimated Glomerular Filt Rate > 60; Glucose Random 228 mg/dL (60-115); Potassium 4.5 mmol/l (3.3-5.1); Sodium 136 mmol/L (135-145)
[2020-11-06 14:43] LABS: Estimated Average Glucose 146 mg/dL; Hemoglobin A1c % 6.7 %
== END 2020-11-06 10:20 | disposition home or self-care (01) ==
LOC: HO.10HDL 10:19
PROVIDERS: Visit Provider Internal Medicine
DX: E11.9 Type 2 diabetes mellitus without complications (principal); I48.0 Paroxysmal atrial fibrillation
CPT/HCPCS: 36415; 80048; 83036; 85025

== ENCOUNTER → 2020-11-08 10:14 | Outpatient (BNVA) | payer MEDICARE, BC, SELFPAY | PROVIDERS: PCP Internal Medicine; Visit Provider Surgery | DX: S98.132D Complete traumatic amputation of one left lesser toe, subsequent encounter (principal) | CPT/HCPCS: 99212 ==

== ENCOUNTER → 2020-11-22 09:32 | Outpatient (BNVA) | payer MEDICARE, BC, SELFPAY | PROVIDERS: PCP Internal Medicine; Visit Provider Surgery | DX: S98.132D Complete traumatic amputation of one left lesser toe, subsequent encounter (principal); L97.509 Non-pressure chronic ulcer of other part of unspecified foot with unspecified severity | CPT/HCPCS: 99212 ==

== ENCOUNTER → 2020-11-29 11:07 | Outpatient (BNVA) | payer MEDICARE, BC, SELFPAY | PROVIDERS: PCP Internal Medicine; Visit Provider Surgery | DX: L97.529 Non-pressure chronic ulcer of other part of left foot with unspecified severity (principal); Z89.422 Acquired absence of other left toe(s) | CPT/HCPCS: 97597; 99212 ==

== ENCOUNTER 2020-12-06 11:23 | Outpatient (REF) | payer MEDICARE, BC, SELFPAY ==
[2020-12-06 14:34] LABS: PSA,Total (Free>4and<10) 5.75 ng/mL (0.00-4.00)
[2020-12-07 10:27] LABS: Free Prostate Spec Ag 1.3 ng/mL; Percent Free Prostate Spec Ag 27 % (calc) (>25); Prostate Specific Ag Total 4.9 ng/mL (< OR = 4.0)
== END 2020-12-06 11:24 | disposition home or self-care (01) ==
LOC: HO.LAB 11:23
PROVIDERS: PCP Internal Medicine; Visit Provider Urology
DX: R97.20 Elevated prostate specific antigen [PSA] (principal); Z12.5 Encounter for screening for malignant neoplasm of prostate
CPT/HCPCS: 36415; 84153; 84154

== ENCOUNTER → 2020-12-13 11:03 | Outpatient (BNVA) | payer MEDICARE, BC, SELFPAY | PROVIDERS: PCP Internal Medicine; Visit Provider Surgery | DX: L97.509 Non-pressure chronic ulcer of other part of unspecified foot with unspecified severity (principal); S98.132A Complete traumatic amputation of one left lesser toe, initial encounter | CPT/HCPCS: 99212 ==

== ENCOUNTER → 2020-12-27 09:08 | Outpatient (BNVA) | payer MEDICARE, BC, SELFPAY | PROVIDERS: PCP Internal Medicine; Visit Provider Surgery | DX: L97.528 Non-pressure chronic ulcer of other part of left foot with other specified severity (principal) | CPT/HCPCS: 11042; 99212 ==

== ENCOUNTER → 2021-01-07 09:31 | Outpatient (BNVA) | payer MEDICARE, BC, SELFPAY | PROVIDERS: PCP Internal Medicine; Visit Provider Surgery | DX: L84 Corns and callosities (principal); L97.521 Non-pressure chronic ulcer of other part of left foot limited to breakdown of skin | CPT/HCPCS: 11042; 99212 ==

== ENCOUNTER → 2021-01-08 09:10 | Outpatient (REF) | payer MEDICARE, BC, SELFPAY ==
--- NOTE | 2021-01-08 09:30 | CA_ITS ---
Transthoracic Echocardiogram Patient (Last, First, Middle): Shashank Fregoso, Gender: Male Date of : 1950 Age: 70 Procedure Date: 01/08/2021 Procedure Type: Transthoracic Echocardiogram Location: OP Height: 190.5 cm Weight: 97.07 kg BSA: 2.26 m2 Heart Rate: bpm BP: 122 / 79 mmHg Director General: ISELA Referring MD: Sharif Alexander MD Symptoms: I34.1 MITRAL VALVE PROLAPSE Study Quality: Fair ECG Rhythm: Sinus Conclusions: - The left ventricular systolic function is low normal. The visually estimated ejection fraction is between 50-55%. - In some views, LVEDD with mild dilatation at 6 cm, but other views with normal size. Endocardial definition is suboptimal and hence difficult to assess accurately. - The mitral valve appears myxomatous. There is mild anterior mitral leaflet prolapse. There is mild mitral valve regurgitation. - There is mild tricuspid valve regurgitation. Findings Left Ventricle There is mildly increased left ventricular wall thickness. The left ventricular systolic function is low normal. The visually estimated ejection fraction is between 50-55%. There is no evidence of regional wall motion abnormalities. E/E prime ratio is between 8 and 15 consistent with indeterminate filling pressures. Evidence suggests grade I (mild) diastolic dysfunction. In some views, LVEDD with mild dilatation at 6 cm, but other views with normal size. Endocardial definition is suboptimal and hence difficult to assess accurately. Right Ventricle Normal right ventricular cavity size and systolic function. Atria The left atrium is normal in size. There is lipomatous hypertrophy of the interatrial septum. The right atrium is normal in size. Aortic Valve There is a normal trileaflet aortic valve. There is no aortic valve stenosis. There is no aortic valve regurgitation. Mitral Valve The mitral valve appears myxomatous. There is mild anterior mitral leaflet thickening. There is mild mitral annular calcification. There is mild anterior mitral leaflet prolapse. There is mild mitral valve regurgitation. There is no mitral valve stenosis. Pulmonic Valve The pulmonic valve was not well visualized. There is trace pulmonic valve regurgitation. Tricuspid Valve There is mild tricuspid valve regurgitation. The pulmonary artery systolic pressure is normal. Great Vessels The aortic annulus, sinuses of valsalva, and asc aorta are normal in size. Venous The inferior vena cava is normal in size and collapses greater than 50% with inspiration. Pericardium/Pleural There is no evidence of pericardial effusion. Prior Study Comparison Changes noted compared to prior study dated: 10/07/2019. See comment on LV size and EF. Measurements M-Mode Liner Measurements Normals - Women/Men LVIDd: 6.36 3.9-5.3/4.2-5.9 cm LVIDd Index: 2.81 1.9-3.2 cm/m2 LVIDs: 4.81 2.0-3.8 cm M-Mode Volumes LV EDV: 206.00 LV ESV: 108.00 2D Linear Measurements IVSd: 1.30 0.6-0.9/0.6-1.0 cm LVIDd: 6.04 3.9-5.3/4.2-5.9 cm LVIDd Index: 2.67 2.4-3.2/2.2-3.1 cm/m2 LVIDs: 4.96 2.0-3.6 cm LVPWd: 0.85 0.7-1.1 cm LA Diam: 3.80 2.7-3.8/3.0-4.0 cm LAIDs Index: 1.68 1.5-2.3 cm/m2 LV Mass: 343.00 67-162/88-224 g LV Mass Index: 151.77 43-95/49-115 g/m2 LVOT Diam: 2.50 3.0+(-)1.3 cm 2D Systolic Function EF 4C: 68.50 >55% EF 2C: 45.90 >55% EF BiP: 57.80 >55% M-Mode Systolic Function FS: 24.40 27-47/25-43% LVEF: 47.60 >55% Mitral Valve MV Pk E: 0.72 MV PK A: 1.12 MV Decel Time: 283.00 E/A: 0.60 E'Lateral: 6.38 E'Medial: 8.90 E/E' Med: 8.00 E/E' Lat: 11.20 PHT: 83.00 MVA PHT: 2.65 Decel [place]: 2.55 Aortic Valve AoV Pk Henry: 1.03 AoV Pk Grad: 4.00 LVOT LVOT Pk Henry: 0.81 LVOT Mn Henry: 0.54 LVOT VTI: 0.16 LVOT Pk Grad: 3.00 LVOT Mn Grad: 1.00 LVOT Diam: 2.50 LVOT Area: 4.91 Diastolic Function MV Pk E: 0.72 MV Pk A: 1.12 E/A: 0.60 E'Medial: 8.90 E/E' Med: 8.00 E' Laterial: 6.38 E/E' Lat: 11.20 Tricuspid Valve TR Pk Henry: 2.46 TR Pk Grad: 24.00 RA Press: 3.00 RVSP: 27.00 Great Vessels Aorta Ao Asc: 3.30 2.1-3.4 cm Updated in Other Vendor System with Status of Final Darius Chaves MD electronically signed on 01/08/2021 4:47:15 PM with status of Final
== END ==
LOC: HO.CARD 09:10
PROVIDERS: Visit Provider Internal Medicine Cardiovascular Disease
DX: I34.1 Nonrheumatic mitral (valve) prolapse (principal)
CPT/HCPCS: 93306

== ENCOUNTER 2021-01-09 12:23 | Outpatient (REF) | payer MEDICARE, BC, SELFPAY ==
--- NOTE | ~2021-01-09 | MR_ITS ---
EXAMINATION: MR FOOT WITHOUT AND WITH CONTRAST, LEFT CLINICAL INFORMATION: Nonpressure chronic ulcer. Patient reports ulcer left great toe. Patient reports portion of the 2nd digit amputated. COMPARISON: X-ray of the left foot September 2020 TECHNIQUE: MRI of the left foot was performed without and with contrast. 10 mL of Gadavist contrast was given intravenously during the contrast portion of the exam. FINDINGS: GREAT TOE: Along the plantar aspect of the distal great toe beginning at the level of the IP joint, there is abnormal signal in the plantar subcutaneous soft tissues. This probably extends to the cortex of the bone plantar medially. There is partial enhancement of the soft tissues compatible with cellulitis and inflammatory change. I do not see a well circumscribed collection that would suggest an abscess. This abnormal signal and enhancement extends circumferentially along the proximal aspect of the great toe to the level of the metacarpophalangeal joint. There is no bone erosion or abnormal signal within this distal portion of the bone. FIRST MTP JOINT: There is osteoarthritis with marginal osteophytes and a mild joint effusion. First tarsometatarsal joint: There is osteoarthritis with subchondral cystic change and edema crossing the joint along with marginal osteophytes and cartilage heterogeneity. SECOND TOE: There is a blunted appearance of the distal phalanx which may reflect postsurgical change. The marrow signal is normal. The surrounding soft tissues and remaining bone are normal. FOURTH TOE: Unremarkable. FIFTH TOE: There is diffuse marrow edema noted in the distal half of the bone extending from the mid diaphysis to the head. There is no effusion of the 1st metatarsophalangeal joint. Question subtle deformity at the neck raising the question of a nondisplaced fracture. There is minimal, if any, abnormal signal in the soft tissues surrounding this portion of the metacarpal. ADDITIONAL FINDINGS: There is generalized abnormal signal with minimal enhancement in the dorsal subcutaneous soft tissues compatible with mostly edema and perhaps small areas of cellulitis. MUSCLES AND TENDONS: There is prominent atrophy and fatty infiltration throughout the muscles of the foot along with mild edema and partial enhancement. 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 MR/MR foot LT wo/w con IMPRESSION: Great toe: Soft tissue abnormality along the plantar aspect of the distal great toe most likely representing an ulceration and cellulitis. No definite osteomyelitis. 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 Question of postsurgical change in the distal phalanx of the 2nd toe. Abnormality of the 5th metatarsal. The appearance is more suggestive of a posttraumatic etiology, likely stress reaction or stress fracture. Osteomyelitis is thought to be unlikely given that there is no apparent overlying soft tissue inflammatory/infectious process. Abnormality in the subcutaneous soft tissues diffusely predominantly mostly edema perhaps with scattered areas of cellulitis. 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
[2021-01-09 13:20] LABS: Blood Urea Nitrogen 17 mg/dL (9-16); Estimated Glomerular Filt Rate > 60
== END 2021-01-09 12:24 | disposition home or self-care (01) ==
LOC: HO.MRI 12:23
PROVIDERS: Visit Provider Surgery
DX: S98.132A Complete traumatic amputation of one left lesser toe, initial encounter (principal); L97.509 Non-pressure chronic ulcer of other part of unspecified foot with unspecified severity
CPT/HCPCS: 36415; 73720; 82565; 84520; A9585

== ENCOUNTER 2021-01-14 15:07 | Outpatient (REF) | payer MEDICARE, BC, SELFPAY | END 2021-01-14 15:08 | disposition home or self-care (01) | LOC: HO.LNP 15:07 | PROVIDERS: Visit Provider Podiatrist | DX: L97.522 Non-pressure chronic ulcer of other part of left foot with fat layer exposed (principal); L03.032 Cellulitis of left toe | CPT/HCPCS: 87071; 87147; 87205 ==

== ENCOUNTER → 2021-01-23 10:00 | Outpatient (BNVA) | payer MEDICARE, BC, SELFPAY | PROVIDERS: PCP Internal Medicine; Visit Provider Surgery | DX: Z13.89 Encounter for screening for other disorder (principal) | CPT/HCPCS: 11042; 99212 ==

== ENCOUNTER 2021-01-23 10:28 | Inpatient (IN) | payer MEDICARE, BC, SELFPAY ==
[2021-01-23] VITALS (8 sets, daily range): BP systolic 109–165; BP diastolic 43–70; PULSE 67–97; RESP 13–20; TEMP 36.3–36.9; O2SAT 95–98; BMI 31.4
--- NOTE | ~2021-01-23 | US_ITS ---
EXAMINATION: BILATERAL LOWER EXTREMITY DUPLEX DOPPLER ARTERIAL EVALUATION CLINICAL INFORMATION: PVD COMPARISON: None TECHNIQUE: EXAMINATION: COLOR-FLOW DUPLEX IMAGING OF THE BILATERAL LOWER EXTREMITY ARTERIAL SYSTEM. VELOCITY MEASUREMENTS TO THE POPLITEAL ARTERIES.. Findings: Right lower extremity: Common femoral artery has a triphasic waveform with peak systolic velocity of 122 cm/s. Profunda femoral artery has a triphasic waveform with peak systolic velocity of 103 cm/s. The proximal superficial femoral artery waveform is not included on the imaging however on the technologist sheet it is listed as a triphasic waveform with peak systolic velocity of 88 cm/s. Mid superficial femoral artery has a triphasic waveform with peak systolic velocity of 85 cm/s. Distal superficial femoral artery has a triphasic waveform with peak systolic velocity of 68 cm/s. Popliteal artery has a triphasic waveform with peak systolic velocity of 71 cm/s. Distal popliteal artery has a triphasic waveform with peak systolic velocity of 74 cm/s. Posterior tibial artery distally has a triphasic waveform with peak systolic velocity of 86 cm/s. The proximal peroneal artery has a triphasic waveform with peak systolic velocity of 51 cm/s. Left lower extremity: Common femoral artery has a triphasic waveform with peak systolic velocity of 106 cm/s. Profunda femoral artery has a triphasic waveform with peak systolic velocity of 117 cm/s. Proximal superficial femoral artery has a triphasic waveform with peak systolic velocity of 109 cm/s. Mid superficial femoral artery has a triphasic waveform with peak systolic velocity of 115 cm/s. Distal superficial femoral artery has a triphasic waveform with peak systolic velocity of 106 cm/s. Popliteal artery has a triphasic waveform with peak systolic velocity of 97 cm/s. Distal popliteal artery has a triphasic waveform with peak systolic velocity of 89 cm/s. Distal posterior tibial artery has a monophasic waveform with peak systolic velocity of 83 cm/s. Mid posterior tibial artery has a monophasic waveform with peak systolic velocity of 177 cm/s. Proximal posterior tibial artery has a monophasic waveform with peak systolic velocity of 91 cm/s. Proximal peroneal artery has a triphasic waveform with peak systolic velocity of 126 cm/s. US/US arterial duplex LE BI IMPRESSION: No hemodynamically significant peripheral vascular disease seen in the right lower extremity. Hemodynamically significant peripheral vascular disease within the left calf.
--- NOTE | ~2021-01-23 | MR_ITS ---
EXAMINATION: MR FOOT WITHOUT AND WITH CONTRAST, LEFT CLINICAL INFORMATION: Evaluate for osteomyelitis. COMPARISON: MRI of the left foot 01/09/2021. X-ray of the left toes 01/23/2021 TECHNIQUE: MRI of the left foot was performed targeted to the midfoot/forefoot given the clinical indication. FINDINGS: There is irregularity of the soft tissues along the medial aspect of the great toe with the epicenter at the level of the IP joint. This extends over a length of approximately 2.1 cm. It extends essentially the full distance dorsal to plantar over a distance of 3.2 cm. The defect extends down to bone at the level of the joint indicating a depth of approximately 0.8 cm. There is concomitant circumferential abnormal signal throughout the subcutaneous soft tissues circumferentially about the length of the great toe beginning at the TMT joint but most prominent beginning at the level of the MTP joint. The abnormal signal is dark on T1 and bright on T2. There is irregular enhancement of the soft tissues beginning at the level of the proximal phalanx and extending distally. The nonenhancement includes portions of the soft tissue as well as any periarticular location involving the distal end of the proximal phalanx and base of the distal phalanx. This area of nonenhancement may reflect fluid and/or necrotic tissue. The heterogeneity of the signal favors necrotic tissue which extends circumferentially about the joint. The tendons appear intact. There is diffuse signal abnormality within the muscles with concomitant enhancement compatible with myositis. FIFTH METATARSAL: There is persistent abnormal signal involving the distal end of the metatarsal compatible with an incompletely healed fracture, similar to prior. There is abnormal signal in the surrounding soft tissues likely reflecting periosteal reaction and some posttraumatic change, similar to prior. SECOND TOE: Unchanged appearance with a blunted appearance of the distal phalanx which may reflect postsurgical change. The signal remains normal. THIRD TOE: Unremarkable. FOURTH TOE: Unremarkable. Osteoarthritis of the 1st metatarsophalangeal joint with subchondral cystic changes. Edema in the proximal phalanx presumably related to the aforementioned abnormality centered at the IP joint. Persistent osteoarthritis of the 1st tarsometatarsal joint with cartilage loss and subchondral cystic change, unchanged compared to prior. Mild arthrosis of the naviculocuneiform joint manifested by subchondral cystic change. Mild osteoarthritis of the 4th tarsometatarsal joint manifested by subchondral cystic change. SUBCUTANEOUS SOFT TISSUES: Generalized abnormal signal throughout the subcutaneous soft tissues of the midfoot as well as the forefoot compatible with a combination of edema and cellulitis given the partial enhancement. MUSCLES AND TENDONS: Prominent generalized atrophy and fatty infiltration throughout the muscles along with edema on the T2-weighted sequences and partial enhancement. This likely reflects denervation myositis but cannot exclude concomitant infectious myositis given the evidence of infection detailed above. MR/MR foot LT wo/w con IMPRESSION: Progression of the previous infectious/inflammatory process noted in the soft tissues in the great toe on the prior MRI 01/09/2021. The present findings are most compatible with septic arthritis of the IP joint of the great toe with concomitant osteomyelitis of the proximal and distal phalanx of the great toe. There is abnormality in the surrounding soft tissues compatible with progressing ulceration, cellulitis and likely some necrotic soft tissue surrounding the joint. Progression of the generalized subcutaneous abnormality throughout the midfoot and forefoot compatible with a combination of edema and generalized cellulitis. Muscle abnormality slightly more pronounced than prior of uncertain significance. 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 Concomitant infectious myositis cannot be excluded given the progressing inflammatory/infectious process. Abnormality of the 5th metatarsal compatible with an incompletely healed fracture. Stable osteoarthritis.
--- NOTE | ~2021-01-23 | XR_ITS ---
EXAMINATION: XR TOES, LEFT CLINICAL INFORMATION: Left foot ulcer COMPARISON: Previous left foot x-ray September 2020 left foot MRI 01/09/2021 TECHNIQUE: 3 views of the left toes were obtained. FINDINGS: There is orthopedic hardware with plate and screws in the distal fibula. There are postsurgical changes to the distal second toe. There is a healing oblique nondisplaced fracture of the distal fifth metatarsal shaft. . There is arthritis at the first MTP joint with joint space narrowing and osteophyte formation. There is soft tissue swelling over the great toe. No x-ray evidence of osteomyelitis is seen. No radiopaque soft tissue foreign body is seen. XR/XR toe LT min 2V IMPRESSION: Healing fracture of the left fifth metatarsal bone. Arthritis at the first MTP joint. Soft tissue swelling over the great toe. No x-ray evidence of osteomyelitis.
--- NOTE | 2021-01-23 10:46 | ED_ITS ---
HPI - Extremity Injury (Lower) General Chief Complaint: Extremity Injury, Lower Stated Complaint: ulcer lt foot Time Seen by Provider: 01/23/21 10:41 Source: patient and old records reviewed Mode of arrival: wheelchair Limitations: no limitations History of Present Illness HPI Narrative: 71 y/o male with history of paroxysmal afib on Eliquis, pre-DM not on medication, left 2nd toe osteomyelitis s/p amputation in Oct 2020 now with chronic left great toe ulcer who presents to the ER from Dr. Wylie's office for evaluation of worsening wound on his left great toe. Patient reports he has a visiting nurse come 3x a week and there has been more drainage from the wound and more swelling lately. He is a poor historian and cannot characterize the changes that have been going on with his foot. I leave that to the nurses and doctors. He denies fever, chills or increased pain. He reports with his neuropathy he doesn't feel much in either foot. Per Dr. Wylie's documentation today - wound is worsening & has significant drainage with cellulitis on the foot. MRI on 01/09 had no evidence of osteomyelitis. Areas was debrided in the office. Recommending IV antibiotics and admission. MD complaint: foot injury Onset (ago): month(s) Injury: Left: toes (great toe) Type of Injury: unknown Severity: moderate Associated symptoms: swelling and able to partially bear weight Other symptoms: none Treatments prior to arrival: bandage Related Data Home Medications Medication Instructions Recorded Confirmed apixaban 5 mg tablet 5 mg PO BID 09/11/20 01/23/21 cholecalciferol (vitamin D3) 25 25 mcg PO DAILY 10/23/20 01/23/21 mcg (1,000 unit) capsule doxycycline monohydrate 100 mg PO DAILY 01/23/21 01/23/21 Previous Rx's Medication Instructions Recorded metoprolol tartrate 25 mg tablet 25 mg PO BID 90 Days #180 tab 10/23/20 off loading boot #1 ea 12/27/20 Allergies Allergy/AdvReac Type Severity Reaction Status Date / Time penicillin V Allergy Intermediate rash Verified 01/07/21 10:17 Erythromycin Allergy Intermediate diarrhea Uncoded 10/04/20 12:52 Review of Systems Review of Systems: Constitutional: No Fever, No Chills ENT/Mouth: No sore throat, No Rhinorrhea, No Swallowing Difficulty Cardiovascular: No Chest Pain, No SOB, No Orthopnea, +Edema Respiratory: No Cough, No Sputum, No Wheezing, No dyspnea Gastrointestinal: No Nausea, No Vomiting, No Diarrhea, No abdominal Pain Genitourinary: No Dysuria, No Urinary Frequency, No Hematuria Musculoskeletal: No joint pain, No Myalgias Skin: + Skin Lesions, No rash Neuro: No Weakness, + Numbness, No Dizziness, No Headache Psych: No Anxiety/Panic, No Depression Heme/Lymph: No Bruising, No Lymphadenopathy Endocrine: No Polyuria, No Polydipsia [facility] Past Medical History Attestation statement: The following information was validated with the patient. Medical History Amputated toe of right foot Arrhythmia History of amputation of toe History of heart valve abnormality History of neuropathy History of tachycardia On anticoagulant therapy Osteomyelitis of second toe of left foot Pre-diabetes Ulcer of left second toe Surgical History Hx of amputation Status post ORIF of fracture of ankle Family History Family History Mother No problems noted. Social History Social History Alcohol intake: never Smoking Status: Never smoker Use of substances other than those prescribed or required for medical reasons: No Advance Directives: Yes Advance Directives on File: Yes Advance Directives Date on File: 08/07/20 service: Yes Current occupational status: retired Physical Exam Vital Signs: Vital Signs: Last Vital Signs Temp 97.7 F 01/23/21 14:31 Pulse 77 01/23/21 14:31 Resp 17 01/23/21 14:31 BP 127/70 01/23/21 14:31 Pulse Ox 98 01/23/21 14:31 Body Mass Index 31.4 Appearance: Elderly male in bed. Alert. Oriented X3. No acute distress. Eyes: Pupils equal, round and reactive to light. ENT: Pharynx normal. Neck: Normal inspection. Neck supple. CVS: Normal heart rate and rhythm. Pulses normal. Respiratory: No respiratory distress. Breath sounds normal. Abdomen: Soft and nontender. +BS x4 Skin: Skin warm and dry. Normal skin color. Normal skin turgor. No rashes. Extremities: left foot with mild edema and cellulitic changes along the top of his foot extending to great toe. Left great toe with 1.5cm ulcerations medially and on plantar aspect with blackened eschar centrally, yellowed skin surrounding and small amount of yellow drainage. Neuro: Oriented X 3. No motor deficit. + sensory deficits to bilateral plantar aspects of feet Course Course Course Narrative: 71 y/o male with history of pre-DM and chronic toe ulcers with history of amputations presenting with worsening left great toe ulcerations and new cellulitis. Dr. Wylie recommending admission for IV antibiotics. No fevers at home or on arrival. No tachycardia or evidence of sepsis. Will get basic lab workup, XR of toe and blood cultures. Will hold off on LE doppler at this time given he is on Eliquis. Reevaluation(s) Reevaluation #1: XR does not show any evidence of osteomyelitis at this time. No leukocytosis. Hyperglycemia 260's noted, suspect untreated DM contributing to his ongoing non-healing and worsening wounds. A1c added. IV antibiotics ordered with plans for admission. Patient agreeable. Hospitalist aware. Reevaluation #2: Dr. Wylie came to evaluate the patient in the ER - he will follow the patient during admission, may require amputation. Consultations Consultation #1: General Surgery - Dr. Wylie. MDM - Extremity Injury (Lower) Lab Data Attestation: I reviewed the patient's lab results. Result diagrams: 01/23/21 11:08 01/23/21 11:08 Labs: Lab Results 01/23/21 01/23/21 01/23/21 Range/Units 11:08 11:08 11:08 WBC 10.1 (4.8-10.8) X10*3/uL RBC 3.70 L (4.60-5.80) X10*6/uL Hgb 11.2 L (14.0-18.0) g/dl Hct 33.9 L (42-52) % MCV 91.6 (80-98) fL MCH 30.3 (27.0-33.0) pg MCHC 33.0 (31.0-36.0) g/dl RDW 13.2 (11.0-16.0) % Plt Count 395 D (160-400) X10*3/uL MPV 8.9 L (9.4-12.4) fL Immature Gran % (Auto) 0.6 H (0.0-0.4) % Neut % (Auto) 77.2 H (45-73) % Lymph % (Auto) 13.0 L (20-40) % [place] % (Auto) 7.5 (2-11) % Eos % (Auto) 1.3 (0-4) % Baso % (Auto) 0.4 (0-2) % Lymph # (Auto) 1.3 (1.2-4.9) X10*3/uL [place] # (Auto) 0.8 (0.1-1.2) X10*3/uL Eos # (Auto) 0.1 (0.0-0.4) X10*3/uL Baso # (Auto) 0.0 (0.0-0.2) X10*3/uL Abs Immat Gran (auto) 0.06 H (0.00-0.03) X10*3/uL Absolute Neuts (auto) 7.8 (2.0-8.3) X10*3/uL Absolute Nucleated RBC 0.000 (0.0-0.012) X10*3/uL Nucleated RBC % (auto) 0.0 (0.0-0.2) /100WBC ESR 91 H (0-15) MM/HR PT 16.6 H (10.8-13.0) SEC INR 1.4 H (0.9-1.1) APTT 36.5 (24.1-38.0) SEC Sodium (135-145) mmol/L Potassium (3.3-5.1) mmol/L Chloride (96-108) mmol/L Carbon Dioxide (22-29) mmol/L Anion Gap (12-20) BUN (9-16) mg/dL Creatinine (0.5-1.4) mg/dL Estim Creat Clear Calc Estimated GFR Random Glucose (60-115) mg/dL Estimat Average Glucose mg/dL Hemoglobin A1c % % Lactic Acid (0.5-2.0) mmol/L Calcium (8.4-10.2) mg/dL Magnesium (1.6-2.6) mg/dL Total Bilirubin (0.0-1.0) mg/dL Direct Bilirubin (0.0-0.5) mg/dL AST (5-37) U/L ALT (0-40) U/L Alkaline Phosphatase (39-117) U/L C-Reactive Protein (< or = 0.50) mg/dL Total Protein (6.5-8.0) g/dL Albumin (3.5-5.0) g/dL Urine Color Urine Appearance Urine pH (5.0-8.0) Ur Specific [place] (1.005-1.025) Urine Protein (NEG-TRACE) MG/DL Urine Glucose (UA) (NEG) MG/DL Urine Ketones (NEG) MG/DL Urine Blood (NEG) Urine Nitrite (NEG) Ur Leukocyte Esterase (NEG) COVID-19 ([facility]) (Negative) COVID-19 Clin Com 01/23/21 01/23/21 01/23/21 Range/Units 11:08 11:08 11:08 WBC (4.8-10.8) X10*3/uL RBC (4.60-5.80) X10*6/uL Hgb (14.0-18.0) g/dl Hct (42-52) % MCV (80-98) fL MCH (27.0-33.0) pg MCHC (31.0-36.0) g/dl RDW (11.0-16.0) % Plt Count (160-400) X10*3/uL MPV (9.4-12.4) fL Immature Gran % (Auto) (0.0-0.4) % Neut % (Auto) (45-73) % Lymph % (Auto) (20-40) % [place] % (Auto) (2-11) % Eos % (Auto) (0-4) % Baso % (Auto) (0-2) % Lymph # (Auto) (1.2-4.9) X10*3/uL [place] # (Auto) (0.1-1.2) X10*3/uL Eos # (Auto) (0.0-0.4) X10*3/uL Baso # (Auto) (0.0-0.2) X10*3/uL Abs Immat Gran (auto) (0.00-0.03) X10*3/uL Absolute Neuts (auto) (2.0-8.3) X10*3/uL Absolute Nucleated RBC (0.0-0.012) X10*3/uL Nucleated RBC % (auto) (0.0-0.2) /100WBC ESR (0-15) MM/HR PT (10.8-13.0) SEC INR (0.9-1.1) APTT (24.1-38.0) SEC Sodium 134 L (135-145) mmol/L Potassium 5.0 (3.3-5.1) mmol/L Chloride 99 (96-108) mmol/L Carbon Dioxide 25 (22-29) mmol/L Anion Gap 15 (12-20) BUN 18 H (9-16) mg/dL Creatinine 1.04 (0.5-1.4) mg/dL Estim Creat Clear Calc 87.6 Estimated GFR > 60 Random Glucose 259 H (60-115) mg/dL Estimat Average Glucose mg/dL Hemoglobin A1c % % Lactic Acid 1.5 (0.5-2.0) mmol/L Calcium 8.9 (8.4-10.2) mg/dL Magnesium 2.1 (1.6-2.6) mg/dL Total Bilirubin 0.7 (0.0-1.0) mg/dL Direct Bilirubin 0.2 (0.0-0.5) mg/dL AST 18 (5-37) U/L ALT 20 (0-40) U/L Alkaline Phosphatase 99 D (39-117) U/L C-Reactive Protein 8.91 H (< or = 0.50) mg/dL Total Protein 6.6 (6.5-8.0) g/dL Albumin 3.6 (3.5-5.0) g/dL Urine Color Urine Appearance Urine pH (5.0-8.0) Ur Specific [place] (1.005-1.025) Urine Protein (NEG-TRACE) MG/DL Urine Glucose (UA) (NEG) MG/DL Urine Ketones (NEG) MG/DL Urine Blood (NEG) Urine Nitrite (NEG) Ur Leukocyte Esterase (NEG) COVID-19 ([facility]) Negative (Negative) COVID-19 Clin Com See Note 01/23/21 01/23/21 Range/Units 11:08 13:42 WBC (4.8-10.8) X10*3/uL RBC (4.60-5.80) X10*6/uL Hgb (14.0-18.0) g/dl Hct (42-52) % MCV (80-98) fL MCH (27.0-33.0) pg MCHC (31.0-36.0) g/dl RDW (11.0-16.0) % Plt Count (160-400) X10*3/uL MPV (9.4-12.4) fL Immature Gran % (Auto) (0.0-0.4) % Neut % (Auto) (45-73) % Lymph % (Auto) (20-40) % [place] % (Auto) (2-11) % Eos % (Auto) (0-4) % Baso % (Auto) (0-2) % Lymph # (Auto) (1.2-4.9) X10*3/uL [place] # (Auto) (0.1-1.2) X10*3/uL Eos # (Auto) (0.0-0.4) X10*3/uL Baso # (Auto) (0.0-0.2) X10*3/uL Abs Immat Gran (auto) (0.00-0.03) X10*3/uL Absolute Neuts (auto) (2.0-8.3) X10*3/uL Absolute Nucleated RBC (0.0-0.012) X10*3/uL Nucleated RBC % (auto) (0.0-0.2) /100WBC ESR (0-15) MM/HR PT (10.8-13.0) SEC INR (0.9-1.1) APTT (24.1-38.0) SEC Sodium (135-145) mmol/L Potassium (3.3-5.1) mmol/L Chloride (96-108) mmol/L Carbon Dioxide (22-29) mmol/L Anion Gap (12-20) BUN (9-16) mg/dL Creatinine (0.5-1.4) mg/dL Estim Creat Clear Calc Estimated GFR Random Glucose (60-115) mg/dL Estimat Average Glucose 148 mg/dL Hemoglobin A1c % 6.8 % Lactic Acid (0.5-2.0) mmol/L Calcium (8.4-10.2) mg/dL Magnesium (1.6-2.6) mg/dL Total Bilirubin (0.0-1.0) mg/dL Direct Bilirubin (0.0-0.5) mg/dL AST (5-37) U/L ALT (0-40) U/L Alkaline Phosphatase (39-117) U/L C-Reactive Protein (< or = 0.50) mg/dL Total Protein (6.5-8.0) g/dL Albumin (3.5-5.0) g/dL Urine Color YELLOW Urine Appearance CLEAR Urine pH 6.0 (5.0-8.0) Ur Specific [place] 1.015 (1.005-1.025) Urine Protein NEG (NEG-TRACE) MG/DL Urine Glucose (UA) 500 H (NEG) MG/DL Urine Ketones NEG (NEG) MG/DL Urine Blood NEG (NEG) Urine Nitrite NEG (NEG) Ur Leukocyte Esterase NEG (NEG) COVID-19 ([facility]) (Negative) COVID-19 Clin Com Discharge Plan Discharge Clinical Impression: Ulcer of great toe, Cellulitis of foot Patient Disposition: Admitted As Inpatient Prescriptions: No Action metoprolol tartrate 25 mg tablet 25 mg PO BID 90 Days Qty: 180 RF: 3 doxycycline monohydrate 100 mg Capsule 100 mg PO DAILY RF: 0 Eliquis 5 mg tablet 5 mg PO BID RF: 0 Hold Instructions: Resume on 10/12/20. Resume taking your Eliquis on 10/12/2020, after your visit with the visiting nurse. cholecalciferol (vitamin D3) 25 mcg (1,000 unit) capsule 25 mcg PO DAILY RF: 0 (DME) DARKELL off loading boot Kit See Rx Instructions .ROUTE .MEDSUPPLY Qty: 1 RF: 0
[2021-01-23 11:17] LABS: MANUAL DIFF FLAG NO
[2021-01-23 11:22] LABS: Basophils Percent Auto 0.4 % (0-2); Eosinophils Absolute Auto 0.1 X10*3/uL (0.0-0.4); Eosinophils Percent Auto 1.3 % (0-4); Hematocrit 33.9 % (42-52); Hemoglobin 11.2 g/dl (14.0-18.0); Imm Gran Abs Auto 0.06 X10*3/uL (0.00-0.03); Imm Gran Pct Auto 0.6 % (0.0-0.4); Lymphocytes Absolute Auto 1.3 X10*3/uL (1.2-4.9); Mean Corpuscular Hemoglobin 30.3 pg (27.0-33.0); Mean Corpuscular Volume 91.6 fL (80-98); Mean Platelet Volume 8.9 fL (9.4-12.4); Monocytes Absolute Auto 0.8 X10*3/uL (0.1-1.2); Monocytes Percent Auto 7.5 % (2-11); Neutrophils Absolute Auto 7.8 X10*3/uL (2.0-8.3); Neutrophils Percent Auto 77.2 % (45-73); Platelet Count 395 X10*3/uL (160-400); Red Cell Distribution Width 13.2 % (11.0-16.0); White Blood Count 10.1 X10*3/uL (4.8-10.8)
[2021-01-23 11:27] LABS: INTERNATIONAL NORM RATIO 1.4 (0.9-1.1); Prothrombin Time 16.6 SEC (10.8-13.0)
[2021-01-23 11:30] LABS: Partial Thromboplastin Time 36.5 SEC (24.1-38.0)
[2021-01-23 11:41] LABS: COVID-19 Test Negative (Negative); IDNOW Serial# 9DD0AD1C
[2021-01-23 11:45] LABS: Lactic Acid 1.5 mmol/L (0.5-2.0)
[2021-01-23 11:52] LABS: Alanine Aminotransferase 20 U/L (0-40); Albumin Level 3.6 g/dL (3.5-5.0); Alkaline Phosphatase 99 U/L (39-117); Anion Gap 15 (12-20); Aspartate Amino Transferase 18 U/L (5-37); Bilirubin Direct 0.2 mg/dL (0.0-0.5); Bilirubin Total 0.7 mg/dL (0.0-1.0); Blood Urea Nitrogen 18 mg/dL (9-16); C Reactive Protein 8.91 mg/dL (< or = 0.50); Calcium 8.9 mg/dL (8.4-10.2); Carbon Dioxide 25 mmol/L (22-29); Chloride 99 mmol/L (96-108); Creatinine Clr Calc Pharmacy 87.6; Estimated Glomerular Filt Rate > 60; Glucose Random 259 mg/dL (60-115); Magnesium 2.1 mg/dL (1.6-2.6); Sodium 134 mmol/L (135-145); Total Protein 6.6 g/dL (6.5-8.0)
[2021-01-23 12:06] LABS: Erythrocyte Sedimentation Rate 91 MM/HR (0-15)
[2021-01-23] MEDS: Piperacillin Sodium/Tazobactam 3.375 GM in 0.9 % Sodium Chloride 50 ML IV ×2 (12:13→22:23)
[2021-01-23] MEDS: 0.9 % Sodium Chloride 1,000 ML 999 ML IVCONT (12:14)
[2021-01-23 12:39] LABS: Estimated Average Glucose 148 mg/dL; Hemoglobin A1C 145.3335 umol/L; Hemoglobin A1c % 6.8 %
[2021-01-23] MEDS: vancomycin HCL 1,500 MG in 0.9 % Sodium Chloride 500 ML 333.33 MG IV (13:03)
[2021-01-23 13:55] LABS: Glucose Urine UA 500 MG/DL (NEG); Leukocyte Esterase Urine NEG (NEG); Nitrite Urine NEG (NEG); Specific Gravity - Urine 1.015 (1.005-1.025); Urine Blood NEG (NEG); Urine Ketones NEG (NEG); Urine Protein NEG (NEG-TRACE)
[2021-01-23 13:59] LABS: Appearance Urine CLEAR; Color Urine YELLOW
--- NOTE | 2021-01-23 15:24 | P.CONGS_ITS ---
History of Present Illness Consult details Consult date: 01/23/21 Narrative: 71-year-old male who is well known to me. I had sent him to the ER the office because of worsening left big toe ulcer along with cellulitis. He had previously undergone partial amputation of 2nd toe on the left with Dr. Key. Recently, he had developed an ulcer on the left big toe medially. I had been taking care of this in the office with dressing changes. This had been stable but there was some persistent drainage so I had sent him for an MRI 2 weeks ago which did not reveal obvious osteomyelitis on the big toe. I saw him in the office today and I had noticed that the ulcers seem to be worse with significant nonviable tissue both skin and fat. I had to do sharp excisional debridement in the office for the ulcer on the medial aspect of the big toe as well as on the plantar aspect. There was note of cellulitic changes as well on the left foot so I brought him down to the emergency room. He otherwise denied any fever or chills. Review of Systems Constitutional: Constitutional: Denies chills and Denies fever(s) Cardiovascular: Cardiovascular: Denies chest pain, Denies dyspnea and Denies dyspnea on exertion Respiratory: Respiratory: Denies cough, Denies dyspnea and Denies dyspnea on e xertion Gastrointestinal: Gastrointestinal: Denies hematochezia and Denies change in bowel habits Genitourinary: Genitourinary: Denies hematuria and Denies difficulty urinating Musculoskeletal: Musculoskeletal: Denies back pain and Denies limited range of motion Neurologic: Denies focal weakness and Denies convulsions Psychiatric: Psychiatric: Denies depression and Denies mood swings [facility] Past Medical History Medical History Amputated toe of right foot Arrhythmia History of amputation of toe History of heart valve abnormality History of neuropathy History of tachycardia On anticoagulant therapy Osteomyelitis of second toe of left foot Pre-diabetes Ulcer of left second toe Family History Family History Mother No problems noted. Surgical History Surgical History Hx of amputation Status post ORIF of fracture of ankle Social History Social History Alcohol intake: never Smoking Status: Never smoker Use of substances other than those prescribed or required for medical reasons: No Advance Directives: Yes Advance Directives on File: Yes Advance Directives Date on File: 08/07/20 service: Yes Current occupational status: retired Meds Allergies Allergy/AdvReac Type Severity Reaction Status Date / Time penicillin V Allergy Intermediate rash Verified 01/07/21 10:17 Erythromycin Allergy Intermediate diarrhea Uncoded 10/04/20 12:52 Active Medications: Current Medications Generic Name Dose Route Start Last Admin Trade Name Freq PRN Reason Stop Dose Admin Pharmacy Consult 1 each 01/23/21 14:36 Consult Rx Perform Med Rec MISCELLANE ONCE PRN Consult order Home Medications Medication Instructions Recorded Confirmed Last Taken Type apixaban 5 mg tablet 5 mg PO BID 09/11/20 01/23/21 Unknown History cholecalciferol (vitamin D3) 25 25 mcg PO DAILY 10/23/20 01/23/21 Unknown History mcg (1,000 unit) capsule doxycycline monohydrate 100 mg PO DAILY 01/23/21 01/23/21 01/23/21 History Physical Exam Vital Signs: Vital Signs: Last Vital Signs Temp 97.7 F 01/23/21 14:31 Pulse 77 01/23/21 14:31 Resp 17 01/23/21 14:31 BP 127/70 01/23/21 14:31 Pulse Ox 98 01/23/21 14:31 Body Mass Index 31.4 Const: General: comfortable and no acute distress Orientation/consciousness : patient oriented x3 Neck: Neck: Yes no lymphadenopathy Resp: Auscultation: clear to auscultation bilaterally Cardio: Rhythm: regular rhythm GI: Palpation (GI): Soft to palpation, nontender and no guarding Neuro: General: patient oriented x3 Extrem: Other: Left foot - with significant cellulitis of the forefoot. There is an ulcer on the big toe medially as well as plan on the plantar aspect and these had been debrided in the office appeared each had measured about 1.5 cm in diameter. There is note of significant fibrinous exudates as well at this time Results Labs Result diagrams: 01/23/21 11:08 01/23/21 11:08 Labs: Abnormal lab results 01/23/21 01/23/21 01/23/21 Range/Units 11:08 11:08 11:08 RBC 3.70 L (4.60-5.80) X10*6/uL Hgb 11.2 L (14.0-18.0) g/dl Hct 33.9 L (42-52) % MPV 8.9 L (9.4-12.4) fL Immature Gran % (Auto) 0.6 H (0.0-0.4) % Neut % (Auto) 77.2 H (45-73) % Lymph % (Auto) 13.0 L (20-40) % Abs Immat Gran (auto) 0.06 H (0.00-0.03) X10*3/uL ESR 91 H (0-15) MM/HR PT 16.6 H (10.8-13.0) SEC INR 1.4 H (0.9-1.1) Sodium (135-145) mmol/L BUN (9-16) mg/dL Random Glucose (60-115) mg/dL C-Reactive Protein (< or = 0.50) mg/dL Urine Glucose (UA) (NEG) MG/DL 01/23/21 01/23/21 Range/Units 11:08 13:42 RBC (4.60-5.80) X10*6/uL Hgb (14.0-18.0) g/dl Hct (42-52) % MPV (9.4-12.4) fL Immature Gran % (Auto) (0.0-0.4) % Neut % (Auto) (45-73) % Lymph % (Auto) (20-40) % Abs Immat Gran (auto) (0.00-0.03) X10*3/uL ESR (0-15) MM/HR PT (10.8-13.0) SEC INR (0.9-1.1) Sodium 134 L (135-145) mmol/L BUN 18 H (9-16) mg/dL Random Glucose 259 H (60-115) mg/dL C-Reactive Protein 8.91 H (< or = 0.50) mg/dL Urine Glucose (UA) 500 H (NEG) MG/DL Short CBC 01/23/21 Range/Units 11:08 WBC 10.1 (4.8-10.8) X10*3/uL Hgb 11.2 L (14.0-18.0) g/dl Hct 33.9 L (42-52) % Plt Count 395 D (160-400) X10*3/uL BMP 01/23/21 11:08 Sodium 134 L Potassium 5.0 Chloride 99 Carbon Dioxide 25 BUN 18 H Creatinine 1.04 Calcium 8.9 Liver Function 01/23/21 Range/Units 11:08 Total Bilirubin 0.7 (0.0-1.0) mg/dL Direct Bilirubin 0.2 (0.0-0.5) mg/dL AST 18 (5-37) U/L ALT 20 (0-40) U/L Alkaline Phosphatase 99 D (39-117) U/L Albumin 3.6 (3.5-5.0) g/dL Urine 01/23/21 Range/Units 13:42 Urine Color YELLOW Urine Appearance CLEAR Urine pH 6.0 (5.0-8.0) Ur Specific [place] 1.015 (1.005-1.025) Urine Protein NEG (NEG-TRACE) MG/DL Urine Glucose (UA) 500 H (NEG) MG/DL All other labs normal. Assessment and Plan (1) Ulcer of great toe: Status: Acute I have been following him in the office for this. I had noticed this to be worse today with significant nonviable tissue on both the plantar and the medial aspect. There has been more drainage as well. I had changed dressings earlier after doing upper excisional debridement in the office. His MRI from 2 weeks ago did not show any obvious osteomyelitis but I would recommend repeating this because of the obvious worsening. He is to be admitted by the hospitalist service for IV antibiotics. I told him that if the MRI shows osteomyelitis, we may need to consider amputation of the big toe. In the meantime, he needs good wound care. He admits that he has not been taking care of this ulcer himself as he says he could not reach this for dressing changes. He says the visiting nurse comes only 3 times a week and therefore the ulcer become soaked and 30 in between dressing changes. He he also has not had his blood sugars checked at all in several months now. I will follow along while he is in the hospital.
--- NOTE | 2021-01-23 17:06 | PM.IMHP ---
History of Present Illness Date of Service: 01/23/21 Chief Complaint: left first toe ulcer 71M sent from general surgery office (Dr. Wylie) for left first toe ulcer, suspected OM and cellulitis. he has a previous 2nd toe ampitation and subsequently developed the first toe ulcer. he had been seeing surgery and wound care with dressing changes, mri 01/09 did not show OM. but he has been having significant drainage still. he had debridement in office, but due to cellulitis changes was sent to eD for iv abx, mri, and possible amputation. patient denies fever, chills, sob, chest pain, n/v/d. Review of Systems Review of Systems: Constitutional: Denies fever, denies Chills Eyes: denies blurry vision ENT: denies sore throat CVS: denies chest pain Respiratory: Denies dyspnea GI: no abdominal pain : denies dysuria MSK: denies neck pain Skin: denies rash Neuro: denies specific motor weakness Psych: denies suicidal ideation Endocrine: denies heat/cold intoleratnce Hematologic: denies easy bleeding Allergy: denies hives [facility] Medical History Amputated toe of right foot Arrhythmia History of amputation of toe History of heart valve abnormality History of neuropathy Osteomyelitis of second toe of left foot Pre-diabetes Ulcer of left second toe Family History Mother No problems noted. Family history: reviewed and not pertinent Surgical History Hx of amputation Status post ORIF of fracture of ankle Social History Alcohol intake: never Smoking Status: Never smoker Use of substances other than those prescribed or required for medical reasons: No Advance Directives: Yes Advance Directives on File: Yes Advance Directives Date on File: 08/07/20 service: Yes Current occupational status: retired Meds Allergies Allergy/AdvReac Type Severity Reaction Status Date / Time penicillin V Allergy Intermediate rash Verified 01/07/21 10:17 Erythromycin Allergy Intermediate diarrhea Uncoded 10/04/20 12:52 Active Medications: Current Medications Generic Name Dose Route Start Last Admin Trade Name Freq PRN Reason Stop Dose Admin Pharmacy Consult 1 each 01/23/21 14:36 Consult Rx Perform Med Rec MISCELLANE ONCE PRN Consult order Home Medications Medication Instructions Recorded Confirmed Last Taken Type apixaban 5 mg tablet 5 mg PO BID 09/11/20 01/23/21 Unknown History cholecalciferol (vitamin D3) 25 25 mcg PO DAILY 10/23/20 01/23/21 Unknown History mcg (1,000 unit) capsule doxycycline monohydrate 100 mg PO DAILY 01/23/21 01/23/21 01/23/21 History Physical Exam Vital Signs and Narrative: Vital Signs: Last Vital Signs Temp 98.5 F 01/23/21 16:00 Pulse 83 01/23/21 16:00 Resp 16 01/23/21 16:00 BP 109/52 L 01/23/21 16:00 Pulse Ox 97 01/23/21 16:00 Body Mass Index 31.4 General: no acute distress HEENT: atraumatic Neck: normal to visual inspection CVS: S1, S2, RRR Resp: CTA bilateral Chest: non tender GI: soft, non tender, non distended : no CVA tenderness Skin: no rashes Extremities: see picture Neuro: Oriented X3, grossly intact Psych: cooperative Results Labs CBC and Chem 7: 01/23/21 11:08 01/23/21 11:08 Labs: Laboratory Results - last 24 hr 01/23/21 01/23/21 01/23/21 11:08 11:08 11:08 MCV 91.6 MCH 30.3 MCHC 33.0 RDW 13.2 Plt Count 395 D MPV 8.9 L Immature Gran % (Auto) 0.6 H Neut % (Auto) 77.2 H Lymph % (Auto) 13.0 L Hendry % (Auto) 7.5 Eos % (Auto) 1.3 Baso % (Auto) 0.4 Lymph # (Auto) 1.3 Hendry # (Auto) 0.8 Eos # (Auto) 0.1 Baso # (Auto) 0.0 Abs Immat Gran (auto) 0.06 H Absolute Neuts (auto) 7.8 Absolute Nucleated RBC 0.000 Nucleated RBC % (auto) 0.0 ESR 91 H PT 16.6 H INR 1.4 H APTT 36.5 Anion Gap Estim Creat Clear Calc Estimated GFR Random Glucose Estimat Average Glucose Hemoglobin A1c % Lactic Acid Calcium Magnesium Total Bilirubin Direct Bilirubin AST ALT Alkaline Phosphatase C-Reactive Protein Total Protein Albumin Urine Color Urine Appearance Urine pH Ur Specific [place] Urine Protein Urine Glucose (UA) Urine Ketones Urine Blood Urine Nitrite Ur Leukocyte Esterase COVID-19 ([facility]) COVID-19 Clin Com 01/23/21 01/23/21 01/23/21 11:08 11:08 11:08 MCV MCH MCHC RDW Plt Count MPV Immature Gran % (Auto) Neut % (Auto) Lymph % (Auto) Hendry % (Auto) Eos % (Auto) Baso % (Auto) Lymph # (Auto) Hendry # (Auto) Eos # (Auto) Baso # (Auto) Abs Immat Gran (auto) Absolute Neuts (auto) Absolute Nucleated RBC Nucleated RBC % (auto) ESR PT INR APTT Anion Gap 15 Estim Creat Clear Calc 87.6 Estimated GFR > 60 Random Glucose 259 H Estimat Average Glucose Hemoglobin A1c % Lactic Acid 1.5 Calcium 8.9 Magnesium 2.1 Total Bilirubin 0.7 Direct Bilirubin 0.2 AST 18 ALT 20 Alkaline Phosphatase 99 D C-Reactive Protein 8.91 H Total Protein 6.6 Albumin 3.6 Urine Color Urine Appearance Urine pH Ur Specific [place] Urine Protein Urine Glucose (UA) Urine Ketones Urine Blood Urine Nitrite Ur Leukocyte Esterase COVID-19 ([facility]) Negative COVID-19 [place] Com See Note 01/23/21 01/23/21 11:08 13:42 MCV MCH MCHC RDW Plt Count MPV Immature Gran % (Auto) Neut % (Auto) Lymph % (Auto) Hendry % (Auto) Eos % (Auto) Baso % (Auto) Lymph # (Auto) Hendry # (Auto) Eos # (Auto) Baso # (Auto) Abs Immat Gran (auto) Absolute Neuts (auto) Absolute Nucleated RBC Nucleated RBC % (auto) ESR PT INR APTT Anion Gap Estim Creat Clear Calc Estimated GFR Random Glucose Estimat Average Glucose 148 Hemoglobin A1c % 6.8 Lactic Acid Calcium Magnesium Total Bilirubin Direct Bilirubin AST ALT Alkaline Phosphatase C-Reactive Protein Total Protein Albumin Urine Color YELLOW Urine Appearance CLEAR Urine pH 6.0 Ur Specific [place] 1.015 Urine Protein NEG Urine Glucose (UA) 500 H Urine Ketones NEG Urine Blood NEG Urine Nitrite NEG Ur Leukocyte Esterase NEG COVID-19 ([facility]) COVID-19 Clin Com Imaging Radiologist's Impressions: Impressions Toe X-Ray 01/23/21 10:44 IMPRESSION: Healing fracture of the left fifth metatarsal bone. Arthritis at the first MTP joint. Soft tissue swelling over the great toe. No x-ray evidence of osteomyelitis. Assessment and Plan (1) Ulcer of great toe: Qualifiers: Laterality: left Non-pressure ulcer stage: unspecified non-pressure ulcer stage Qualified Code(s): L97.529 - Non-pressure chronic ulcer of other part of left foot with unspecified severity Status: Acute 71M presented from surgical clinic with left first toe ulcer and cellulitis left first toe ulcer and cellulitis concern for blanquita Parker mri arterial duplex surgery following may need amputation preDM hyperglycemia, will cover with sliding scale pafjohann armas lopressor hold eliquis for possible amputation
--- NOTE | 2021-01-23 18:17 | PC.NURSE ---
client brought dinner, soiled and urinated in bed. client changed, skin wiped down with wipes. client did well with sterilift. client ate 100% of dinner. offers no new complaints. pending bed assignment. nad noted.
--- NOTE | 2021-01-23 20:10 | PC.NURSE ---
call for report, nurse stated he will call back
--- NOTE | 2021-01-23 20:35 | PC.NURSE ---
x2 time attempting to give report. Client remains in bed, nad noted,
--- NOTE | 2021-01-23 20:52 | PC.NURSE ---
REPORT GIVEN AT THIS TIME.
[2021-01-23] MEDS: Metoprolol Tartrate 25 MG TABLET PO (22:23)
[2021-01-23] MEDS: Insulin Lispro 100 UNIT/ML 3 ML VIAL SUBCUT (22:31)
[2021-01-23 22:32] LABS: Glucose, Whole Blood 225 mg/dL (60-115)
--- NOTE | 2021-01-23 22:35 | PC.NURSE ---
patient assessed and admitted by resource MARTIN Yuen,alert and oriented,resting in bed ,bed alarm on for safety
[2021-01-24] VITALS (7 sets, daily range): BP systolic 118–136; BP diastolic 52–74; PULSE 74–89; RESP 16–20; TEMP 36.4–36.7; O2SAT 81–98; BMI 31.4
[2021-01-24] MEDS: vancomycin HCL 1,000 MG in 0.9 % Sodium Chloride 250 ML 270 MG IV ×2 (00:44→14:33)
[2021-01-24] MEDS: 0.9 % Sodium Chloride Flush 3 ML SYRINGE IVFLUSH ×4 (00:49→21:18)
[2021-01-24] MEDS: Piperacillin Sodium/Tazobactam 3.375 GM in 0.9 % Sodium Chloride 50 ML IV ×4 (03:44→21:11)
[2021-01-24 06:11] LABS: MANUAL DIFF FLAG NO
[2021-01-24 06:35] LABS: Anion Gap 13 (12-20); Blood Urea Nitrogen 14 mg/dL (9-16); Calcium 8.4 mg/dL (8.4-10.2); Carbon Dioxide 25 mmol/L (22-29); Chloride 104 mmol/L (96-108); Creatinine Clr Calc Pharmacy 109.8; Estimated Glomerular Filt Rate > 60; Glucose Random 180 mg/dL (60-115); Potassium 4.6 mmol/L (3.3-5.1); Sodium 137 mmol/L (135-145)
[2021-01-24 06:40] LABS: Basophils Percent Auto 0.4 % (0-2); Eosinophils Absolute Auto 0.3 X10*3/uL (0.0-0.4); Eosinophils Percent Auto 3.1 % (0-4); Hematocrit 31.8 % (42-52); Hemoglobin 10.4 g/dl (14.0-18.0); Imm Gran Abs Auto 0.04 X10*3/uL (0.00-0.03); Imm Gran Pct Auto 0.5 % (0.0-0.4); Lymphocytes Absolute Auto 1.1 X10*3/uL (1.2-4.9); Lymphocytes Percent Auto 13.2 % (20-40); Mean Corpuscular HGB Conc 32.7 g/dl (31.0-36.0); Mean Corpuscular Hemoglobin 30.3 pg (27.0-33.0); Mean Corpuscular Volume 92.7 fL (80-98); Mean Platelet Volume 8.8 fL (9.4-12.4); Monocytes Absolute Auto 0.6 X10*3/uL (0.1-1.2); Monocytes Percent Auto 7.1 % (2-11); Neutrophils Absolute Auto 6.1 X10*3/uL (2.0-8.3); Neutrophils Percent Auto 75.7 % (45-73); Platelet Count 359 X10*3/uL (160-400); Red Blood Count 3.43 X10*6/uL (4.60-5.80); Red Cell Distribution Width 13.2 % (11.0-16.0); White Blood Count 8.1 X10*3/uL (4.8-10.8)
[2021-01-24 07:50] LABS: Glucose, Whole Blood 175 mg/dL (60-115)
[2021-01-24] MEDS: Insulin Lispro 100 UNIT/ML 3 ML VIAL SUBCUT ×3 (08:18→21:13)
[2021-01-24] MEDS: Metoprolol Tartrate 25 MG TABLET PO ×2 (08:19→21:10)
[2021-01-24] MEDS: Cholecalciferol (Vitamin D3) 25 MCG TABLET PO (08:19)
[2021-01-24] MEDS: Enoxaparin Sodium 40 MG/0.4 ML SYRINGE SUBCUT (08:19)
--- NOTE | 2021-01-24 08:30 | P.PNGS_ITS ---
Subjective Subjective Date of Service: 01/24/21 Interval history: No new complaints Denies pain on the left foot - says he has neuropathy Physical Exam Vital Signs: Vital Signs: Last Vital Signs Temp 97.5 F 01/24/21 07:37 Pulse 81 01/24/21 07:37 Resp 16 01/24/21 07:37 BP 133/74 01/24/21 07:37 Pulse Ox 81 L 01/24/21 07:37 Body Mass Index 31.4 Const: General: comfortable and no acute distress Resp: Effort & Inspection: normal respiratory effort Cardio: Rhythm: regular rhythm GI: Palpation (GI): Soft to palpation and nontender Extrem: Other: Left foot - ulcer on the big toe from lateral to the plantar area; nonviable tissue on base and rim of skin along with pus seen. Bone is exposed; cellulitis stable Progress Note: A&P Assessment and plan (1) Ulcer of great toe: Status: Acute Assessment and Plan: Has worsening ulcer of the big toe with necrotic tissue I proceeded to repeat up excisional debridement bedside using scissors to excise as much of nonviable tissue on the base and the rim of the ulcer Aggregate size of the ulcer is now about 4 x 3 cm Bone is also seen Likely to require big toe amp Repeat MRI Still with cellulitis although not worse Discussed with hospitalist service Fall Risk Details Current Medications: Current Medications Generic Name Dose Route Start Last Admin Trade Name Freq PRN Reason Stop Dose Admin Acetaminophen 650 mg 01/23/21 21:21 Acetaminophen 325 Mg Tablet PO Q6H PRN Pain, Mild (Pain Scale 1-3) Enoxaparin Sodium 40 mg 01/24/21 09:00 01/24/21 08:19 Enoxaparin Sodium 40 Mg/0.4 Ml Syringe SUBCUT 40 mg DAILY [facility] Administration Vancomycin HCl 1,000 mg/ 270 mls @ 270 mls/hr 01/24/21 01:00 01/24/21 01:48 Sodium Chloride IV Infused Q12H [facility] Infusion Piperacillin Sod/Tazobactam 50 mls @ 100 mls/hr 01/23/21 22:00 01/24/21 04:17 Sod 3.375 gm/ Sodium Chloride IV Infused Q6H [facility] Infusion Insulin Human Lispro 0 unit 01/23/21 21:21 01/24/21 08:18 Insulin Lispro 100 Unit/Ml 3 Ml Vial SUBCUT 2 unit QIDACHS [facility] Administration Protocol Metoprolol Tartrate 25 mg 01/23/21 21:21 01/24/21 08:19 Metoprolol Tartrate 25 Mg Tablet PO 25 mg BID [facility] Administration Protocol Pharmacy Consult 1 each 01/23/21 21:21 Consult Rx Vancomycin Dosing MISCELLANE DAILY PRN Consult order Sodium Chloride 3 ml 01/24/21 00:00 01/24/21 08:19 0.9 % Sodium Chloride Flush 3 Ml Syringe IVFLUSH 3 ml QSHIFT [facility] Administration Vitamin D 25 mcg 01/24/21 09:00 01/24/21 08:19 Cholecalciferol (Vitamin D3) 25 Mcg Tablet PO 25 mcg DAILY [facility] Administration Time Spent With Patient Time: Total time spent is greater than 50% in coordination of care (as documented) at patient's floor/unit and/or counseling patient: Time with patient: 15 - 24 minutes
[2021-01-24 11:52] LABS: Glucose, Whole Blood 173 mg/dL (60-115)
--- NOTE | 2021-01-24 12:15 | HO.PM.IMPN ---
Subjective Subjective Date of Service: 01/24/21 Interval History: seen and examined this AM foot feels the same, says he has neuropathy so he doesnt feel much denies fevers or chills ROS General - no fevers or chills Cardiovascular - no chest pain Respiratory - no shortness of breath or cough Abdominal- no abdominal pain, nausea, vomiting, diarrhea Physical Exam Vital Signs: Vital Signs: Last Vital Signs Temp 97.5 F 01/24/21 07:37 Pulse 81 01/24/21 07:37 Resp 16 01/24/21 07:37 BP 133/74 01/24/21 07:37 Pulse Ox 97 01/24/21 08:53 Body Mass Index 31.4 Const: Other: General - no acute distress, appears comfortable Cardiovascular - regular rate and rhythm, S1-S2 Lungs - normal respiratory effort, clear to auscultation bilaterally, no wheezing Abdomen - soft, nontender, no rebound or guarding Extremities - LE in dressing -- changed by gen surg this AM Neuro - awake and alert, no focal deficits Objective Data Current Medications Generic Name Dose Route Start Last Admin Trade Name Yoandyq PRN Reason Stop Dose Admin Acetaminophen 650 mg 01/23/21 21:21 Acetaminophen 325 Mg Tablet PO Q6H PRN Pain, Mild (Pain Scale 1-3) Enoxaparin Sodium 40 mg 01/24/21 09:00 01/24/21 08:19 Enoxaparin Sodium 40 Mg/0.4 Ml Syringe SUBCUT 40 mg DAILY [facility] Administration Vancomycin HCl 1,000 mg/ 270 mls @ 270 mls/hr 01/24/21 01:00 01/24/21 01:48 Sodium Chloride IV Infused Q12H [facility] Infusion Piperacillin Sod/Tazobactam 50 mls @ 100 mls/hr 01/23/21 22:00 01/24/21 11:50 Sod 3.375 gm/ Sodium Chloride IV Infused Q6H [facility] Infusion Insulin Human Lispro 0 unit 01/23/21 21:21 01/24/21 08:18 Insulin Lispro 100 Unit/Ml 3 Ml Vial SUBCUT 2 unit QIDACHS [facility] Administration Protocol Metoprolol Tartrate 25 mg 01/23/21 21:21 01/24/21 08:19 Metoprolol Tartrate 25 Mg Tablet PO 25 mg BID [facility] Administration Protocol Pharmacy Consult 1 each 01/23/21 21:21 Consult Rx Vancomycin Dosing MISCELLANE DAILY PRN Consult order Sodium Chloride 3 ml 01/24/21 00:00 01/24/21 08:19 0.9 % Sodium Chloride Flush 3 Ml Syringe IVFLUSH 3 ml QSHIFT [facility] Administration Vitamin D 25 mcg 01/24/21 09:00 01/24/21 08:19 Cholecalciferol (Vitamin D3) 25 Mcg Tablet PO 25 mcg DAILY [facility] Administration Labs CBC & Chem 7: 01/24/21 05:57 01/24/21 05:57 Assessment and Plan (1) Ulcer of great toe: Status: Acute Assessment and Plan: 71 M being followed in the Gen Surg clinic and admitted from there for worsening ulcer / cellulitis and concern for osteo 1. L first toe Ulcer / cellulitis concern over osteo MRI today vancomcyin/zosyn arterial studies Gen Surg on board -- may need amputation pending MRI 2. Diabetes Mellitis previously was in the pre-diabetic range per patient report. Previous records indicate A1C as high as 6.9 A1c now 6.8 Pt prefers to not start any diabetic meds upon d/c. States he will be seeing his PCP (Dr. Medrano) upon discharge and will decide upon discussing with him. 3. PAF Lopressors Eliquis to be resumed once surgical decision made Full Code DVT, pptx -- Eliquis as above
--- NOTE | 2021-01-24 15:31 | MHC.CM.PN ---
NURSE CLINICAL DOCUMENT IMPROVEMENT EDUCATOR NOTE ELECTRONIC MEDICAL RECORD REVIEWED ALONG , MET WITH PATIENT , EXPLAINED THE ROLE OF THE NURSE CLINICAL DOCUMENT IMPROVEMENT EDUCATOR IN THE TRANSITION FROM THE HOSPITAL TO HOME PATIENT REPORTS THAT HE HAS A HEALTH CARE PROXY AT HOME AND HAS NAMED HIS BROTHER RITU ARTHUR HIS AGENT. (I REQUESTED COPY BE BROUGHT INTO HOSPITAL )HE CONFIRMED PCP DR ELODIA MOSER .PATIENT LIVES WITH HIS BROTHER AND BOTH CARE FOR HIS 95 YEAR OLD MOTHER. PATIENT IS RETIED FROM THE [facility], HE IS NOT CONNECTED WITH THE [facility] AND USES THE [facility] ON [facility]. HE REPORTS THAT HE IS INDEPENDENT IN HIS ADLS AND USES A [facility] TO AMBULATE. HE IS CURRENTLY ACTIVE WITH THE [facility] FOR [facility] FOR WOUND ASSESSMENT AND DRESINGS, HE HAS [facility] FOR FIRST VISIT THIS JANUARY HE HAD A MRI TODAY AND BASED ON THE REULTS HE IS WAITING TO SEE WHAT THE PLAN WILL BE NEXT BEFORE HE CAN MAKE ANY ALTERNATE DECISIONS ABOUT SHORT TERM REHAB, CLINICAL DOCUMENT IMPROVEMENT EDUCATOR TO FOLOW UP TOMORROW
[2021-01-24 16:48] LABS: Glucose, Whole Blood 214 mg/dL (60-115)
--- NOTE | 2021-01-24 17:19 | P.EN_ITS ---
Event Note Date of Service: 01/24/21 Event Note: His arterial Doppler suggests arterial insufficiency of the left l eg. I have recommended hospitalist service to consult Dr. Rodriguez of vascular surgery. I explained this to the patient. He does have significant nonviable tissue that I have debrided on the left big toe and I am not optimistic that this will heal I will continue to debride this periodically. His MRI results are pending I explained to the patient as well that prior to consideration of amputation, he will be evaluated by Dr. Rodriguez for possible need for establishment of adequate arterial flow to the foot.
[2021-01-24 20:47] LABS: Glucose, Whole Blood 215 mg/dL (60-115)
[2021-01-25] VITALS (7 sets, daily range): BP systolic 114–141; BP diastolic 64–78; PULSE 74–88; RESP 14–20; TEMP 35.9–36.6; O2SAT 96–97
[2021-01-25 01:34] LABS: Vancomycin Trough 13.5 mcg/mL (10.0-20.0)
[2021-01-25] MEDS: vancomycin HCL 1,000 MG in 0.9 % Sodium Chloride 250 ML 270 MG IV ×2 (01:56→13:12)
[2021-01-25] MEDS: Piperacillin Sodium/Tazobactam 3.375 GM in 0.9 % Sodium Chloride 50 ML IV ×4 (03:57→21:31)
[2021-01-25 07:22] LABS: Glucose, Whole Blood 151 mg/dL (60-115)
[2021-01-25] MEDS: Insulin Lispro 100 UNIT/ML 3 ML VIAL SUBCUT ×4 (07:58→21:31)
[2021-01-25] MEDS: Metoprolol Tartrate 25 MG TABLET PO ×2 (09:45→21:31)
[2021-01-25] MEDS: Cholecalciferol (Vitamin D3) 25 MCG TABLET PO (09:45)
[2021-01-25] MEDS: Enoxaparin Sodium 40 MG/0.4 ML SYRINGE SUBCUT (09:46)
[2021-01-25] MEDS: 0.9 % Sodium Chloride Flush 3 ML SYRINGE IVFLUSH ×3 (09:46→21:36)
--- NOTE | 2021-01-25 11:14 | P.CONGS_ITS ---
History of Present Illness Consult details Consult date: 01/25/21 Narrative: 71-year-old gentleman who has been seen as an outpatient by General surgery has a persistent nonhealing left lower extremity ulcer. He noted that his prior left 2nd toe was amputated in his gone on to progressed to his right great toe. He was most recently diagnosed with diabetes. He presented to his surgeons office to noted there was concerns of infection and he was subsequently admitted. He now presents for vascular evaluation. Review of Systems Review of Systems: Yes all other systems are reviewed and are negative Constitutional: Constitutional: Reports no additional constitutional complaints ENT: Reports Normal hearing present Cardiovascular: Cardiovascular: Denies chest pain, Denies chest pain at rest, Denies chest pain with activity and Denies pedal edema Respiratory: Respiratory: Denies cough Gastrointestinal: Gastrointestinal: Denies abdominal pain Musculoskeletal: Musculoskeletal: Denies abnormal gait, Denies muscle cramps and Denies radiating pain into limb Integumentary/Breasts: Skin/Breast: Denies skin ulcer and Denies wounds Neurologic: Reports Normal hearing present and Denies abnormal gait Psychiatric: Psychiatric: Reports no additional psychiatric complaints PMFSH Past Medical History Medical History Amputated toe of right foot Arrhythmia History of amputation of toe History of heart valve abnormality History of neuropathy Osteomyelitis of second toe of left foot Pre-diabetes Ulcer of left second toe Family History Family History Mother No problems noted. Family history: reviewed and not pertinent Surgical History Surgical History Hx of amputation Status post ORIF of fracture of ankle Social History Social History Household Members: Family Housing: House Do you presently have visiting nurse or other home services: Yes Alcohol intake: never Smoking Status: Never smoker Second Hand Smoke Exposure: No Use of substances other than those prescribed or required for medical reasons: No Currently Displaying Signs/Symptoms of Drug Intoxication Withdrawal: No Any prior treatment program specific to substance use: No Have you been hit, kicked, punched, or otherwise hurt by someone within the past year? If so, by whom?: No Do you feel safe in your current relationship?: No Current Relationship Is there a partner from a previous relationship who is making you feel unsafe now?: No Are you made to feel afraid or neglected: No Advance Directives: Yes Advance Directives on File: Yes Advance Directives Date on File: 08/07/20 Do you have thoughts of harming others: None Do you have a plan to hurt others: No Plan Recently lost weight without trying: No service: Yes Current occupational status: retired Meds Allergies Allergy/AdvReac Type Severity Reaction Status Date / Time penicillin V Allergy Intermediate rash Verified 01/07/21 10:17 Erythromycin Allergy Intermediate diarrhea Uncoded 10/04/20 12:52 Active Medications: Current Medications Generic Name Dose Route Start Last Admin Trade Name Freq PRN Reason Stop Dose Admin Acetaminophen 650 mg 01/23/21 21:21 Acetaminophen 325 Mg Tablet PO Q6H PRN Pain, Mild (Pain Scale 1-3) Enoxaparin Sodium 40 mg 01/24/21 09:00 01/25/21 09:46 Enoxaparin Sodium 40 Mg/0.4 Ml Syringe SUBCUT 40 mg DAILY [facility] Administration Vancomycin HCl 1,000 mg/ 270 mls @ 270 mls/hr 01/24/21 01:00 01/25/21 03:46 Sodium Chloride IV Infused Q12H [facility] Infusion Piperacillin Sod/Tazobactam 50 mls @ 100 mls/hr 01/23/21 22:00 01/25/21 10:25 Sod 3.375 gm/ Sodium Chloride IV Infused Q6H [facility] Infusion Vancomycin HCl 1,000 mg/ 270 mls @ 270 mls/hr 01/25/21 11:03 Sodium Chloride IV 01/25/21 12:02 PREOP ONE Insulin Human Lispro 0 unit 01/23/21 21:21 01/25/21 07:58 Insulin Lispro 100 Unit/Ml 3 Ml Vial SUBCUT 2 unit QIDACHS [facility] Administration Protocol Metoprolol Tartrate 25 mg 01/23/21 21:21 01/25/21 09:45 Metoprolol Tartrate 25 Mg Tablet PO 25 mg BID [facility] Administration Protocol Pharmacy Consult 1 each 01/23/21 21:21 Consult Rx Vancomycin Dosing MISCELLANE DAILY PRN Consult order Sodium Chloride 3 ml 01/24/21 00:00 01/25/21 09:46 0.9 % Sodium Chloride Flush 3 Ml Syringe IVFLUSH 3 ml QSHIFT [facility] Administration Vitamin D 25 mcg 01/24/21 09:00 01/25/21 09:45 Cholecalciferol (Vitamin D3) 25 Mcg Tablet PO 25 mcg DAILY [facility] Administration Home Medications Medication Instructions Recorded Confirmed Last Taken Type apixaban 5 mg tablet 5 mg PO BID 09/11/20 01/23/21 Unknown History cholecalciferol (vitamin D3) 25 25 mcg PO DAILY 10/23/20 01/23/21 Unknown History mcg (1,000 unit) capsule doxycycline monohydrate 100 mg PO DAILY 01/23/21 01/23/21 01/23/21 History Physical Exam Vital Signs: Vital Signs: Last Vital Signs Temp 97.9 F 01/25/21 07:30 Pulse 86 01/25/21 07:45 Resp 16 01/25/21 07:30 BP 127/69 01/25/21 07:45 Pulse Ox 97 01/25/21 07:45 Body Mass Index 31.4 Const: General: cooperative, healthy appearing and comfortable Orien tation/consciousness: oriented to person, oriented to place and oriented to time HENMT: Head: Yes normal to inspection Neck: Neck: Yes normal visual inspection Carotids: no bruits Chest: Chest palpation & inspection: normal inspection of the chest Resp: Effort & Inspection: normal respiratory effort and able to speak in complete sentences Auscultation: clear to auscultation bilaterally, no crackles, no rales, no rhonchi and no wheezes Cardio: Rate: regular rate Rhythm: regular rhythm Heart sounds: S1 normal heart sound present and S2 normal heart sound present Bruits: no carotid bruits Peripheral pulses: dorsalis pedis present (DP signals only) GI: Inspection: Yes normal to inspection Skin: Wounds: wounds noted (Left foot nonhealing great toe) Hair: normal Neuro: General: oriented to person, oriented to place and oriented to time Cranial nerves: Yes CN's II-XII intact bilaterally and Yes Normal hearing pres ent Cognition (Neuro): normal cognition Motor exam (neuro): 5/5 motor strength present throughout Extrem: Other: venous exam: No significant superficial varicosities or spider telangiectasias, minimal edema General: No clubbing, No cyanosis and No edema Psych: Appearance: grossly normal Mental Status: mental status grossly normal Speech and movement: Normal speech and movement present Results Labs Result diagrams: 01/24/21 05:57 01/24/21 05:57 Labs: Abnormal lab results 01/24/21 01/24/21 01/24/21 Range/Units 11:35 16:21 20:32 POC Glucose 173 H 214 H 215 H (60-115) mg/dL 01/25/21 Range/Units 07:15 POC Glucose 151 H (60-115) mg/dL Urine 01/23/21 Range/Units 13:42 Urine Color YELLOW Urine Appearance CLEAR Urine pH 6.0 (5.0-8.0) Ur Specific [place] 1.015 (1.005-1.025) Urine Protein NEG (NEG-TRACE) MG/DL Urine Glucose (UA) 500 H (NEG) MG/DL All other labs normal. Assessment and Plan (1) PVD (peripheral vascular disease): Status: Acute Patient notes nonhealing left leg ulcer. I have discussed the pathophysiology of peripheral vascular disease with the patient. I have also discussed risk factor modification. I have reviewed the patient's arterial testing which reveals on direct ultrasound below-knee left lower extremity at herosclerotic disease. the patient would benefit from a left leg endovascular peripheral angiogram with possible angioplasty, stent, and/or atherectomy. This has been discussed in detail with the patient along with risks, benefits, and complications. This includes but is not limited to bleeding, infection, heart attack, need for emergent surgical repair, limb ischemia, blood vessel damage, b leeding, puncture, kidney injury, bruising, allergic reaction, and skin reaction. The patient demonstrates a clear understanding. We will schedule for the next appropriate time. Thank you for allowing us to assist in this patient's care. Subsequent to the endovascular intervention will discuss with General surgery regarding further intervention regarding the toes.
[2021-01-25 11:57] LABS: Glucose, Whole Blood 154 mg/dL (60-115)
--- NOTE | 2021-01-25 12:16 | MHC.CM.PN ---
NURSE E COMMERCE ANALYST NOTE ELECTRONIC MEDICAL RECORD REVIEWED ALONG WITH CASE DISCUSSED WITH STAFF NURSE AND ON MULTIPLE DISCIPLINARY ROUNDS. MET WITH PATIENT TODAY HE REPORTED HE IS STILL WAITING FOR THE RESULTS OF HIS MRI, HE REPORTED THE HAD SOME INSUFFICIENCY IN HIS LEFT LEG THAT THE DOPPLER STUDY SHOWED HE IS AWARE THAT HE ALMA BE HERE THROUGH THE WEEKEND PROCEDURE SCHEDULED FOR THURSDAY WITH VASCULAR SURGEON PER DOCUMENTATION PATIENT LEG ULCER RECENTLY DIAGNOSED WITH DIABETES HAS PERSISTENT NON-HEALING LEFT LOWER GREAT TOE GENERAL SURGEON CONTINUES TO FOLLOW FOR POSSIBLE FURTHER DEBRIDEMENT CONTINUE PLAN OF CARE WITH SLIDING SCALE INSULIN AND 2- IV ANTIBIOTICS. MONITORING OF ALL LABS DISCHARGE PLAN TO BE FURTHER DETERMINED INITIALLY RESUMPTION OF HIS [facility] FOR WOUND CARE AND DRESSING CHANGES [facility]ERCE ANALYST TO CONTINUE TO FOLLOW FOR ANY CHANGES IN DISCHARGE NEEDS [facility] STAY HERE OVER THE WEEKEND
--- NOTE | 2021-01-25 13:37 | HO.PM.IMPN ---
Subjective Subjective Date of Service: 01/25/21 Interval History: Patient offers no acute complaints denies pain, no fever chills, no issues overnight. ROS General no headache,no dizziness, no fever chills. CVS no chest pain, no palpitation. Respiratory no cough ,no sob Gastrointestinal no nausea, no vomiting, no abdominal pain Physical Exam Vital Signs: Vital Signs: Last Vital Signs Temp 96.7 F L 01/25/21 10:40 Pulse 74 01/25/21 10:40 Resp 16 01/25/21 07:30 BP 126/69 01/25/21 10:40 Pulse Ox 97 01/25/21 10:40 Body Mass Index 31.4 General - no acute distress, appears comfortable Cardiovascular - regular rate and rhythm, S1-S2 Lungs - normal respiratory effort, clear to auscultation bilaterally, no wheezing, no rhonchi Abdomen - soft, non tender, bowel sounds audible, no rebound or guarding Extremities - LE in dressing , left lower extremity swollen, mild hyperemia dorsum of foot, as per patient has chronic left leg swelling due to history of left ankle fracture. Neuro - awake and alert, no focal deficits Objective Data Current Medications Generic Name Dose Route Start Last Admin Trade Name Freq PRN Reason Stop Dose Admin Acetaminophen 650 mg 01/23/21 21:21 Acetaminophen 325 Mg Tablet PO Q6H PRN Pain, Mild (Pain Scale 1-3) Enoxaparin Sodium 40 mg 01/24/21 09:00 01/25/21 09:46 Enoxaparin Sodium 40 Mg/0.4 Ml Syringe SUBCUT 40 mg DAILY [facility] Administration Vancomycin HCl 1,000 mg/ 270 mls @ 270 mls/hr 01/24/21 01:00 01/25/21 13:12 Sodium Chloride IV 270 mls/hr Q12H [facility] Administration Piperacillin Sod/Tazobactam 50 mls @ 100 mls/hr 01/23/21 22:00 01/25/21 10:25 Sod 3.375 gm/ Sodium Chloride IV Infused Q6H [facility] Infusion Vancomycin HCl 1,000 mg/ 270 mls @ 270 mls/hr 01/28/21 08:00 Sodium Chloride IV 01/28/21 08:59 PREOP ONE Insulin Human Lispro 0 unit 01/23/21 21:21 01/25/21 12:15 Insulin Lispro 100 Unit/Ml 3 Ml Vial SUBCUT 2 unit QIDACHS [facility] Administration Protocol Metoprolol Tartrate 25 mg 01/23/21 21:21 01/25/21 09:45 Metoprolol Tartrate 25 Mg Tablet PO 25 mg BID [facility] Administration Protocol Pharmacy Consult 1 each 01/23/21 21:21 Consult Rx Vancomycin Dosing MISCELLANE DAILY PRN Consult order Sodium Chloride 3 ml 01/24/21 00:00 01/25/21 09:46 0.9 % Sodium Chloride Flush 3 Ml Syringe IVFLUSH 3 ml QSHIFT [facility] Administration Vitamin D 25 mcg 01/24/21 09:00 01/25/21 09:45 Cholecalciferol (Vitamin D3) 25 Mcg Tablet PO 25 mcg DAILY [facility] Administration Labs CBC & Chem 7: 01/24/21 05:57 01/24/21 05:57 Microbiology Microbiology Results: Microbiology 01/23/21 11:08 Blood - Venous Blood Culture - Preliminary No growth after 48 hours. 01/23/21 11:40 Blood - Venous Blood Culture - Preliminary No growth after 24 hours. Assessment and Plan (1) Ulcer of great toe: Status: Acute (2) Cellulitis of foot: Status: Acute (3) PVD (peripheral vascular disease): Status: Acute (4) Pre-diabetes: Problem details: no medications at this time Status: Acute (5) Arrhythmia: Problem details: Paroxysmal afib-on eliquis & metoprolol Status: Acute Assessment and Plan: 71 M being followed in the Gen Surg clinic and admitted from there for worsening ulcer / cellulitis and concern for osteo 1. L first toe Ulcer / cellulitis dorsum of foot No fevers, normal WBC count, no pain due to neuropathy concern over osteo, MRI foot obtained report pending, duplex study lower extremity consistent with hemodynamically significant peripheral vascular disease in left calf Patient seen by Dr. Rodriguez today he scheduled for left foot angiogram on Thursday Will continue iv vancomycin and IV zosyn day [address] Wylie, further surgical intervention after report of angiogram 2. Diabetes Mellitis previously was in the pre-diabetic range per patient report. Previous records indicate A1C as high as 6.9, A1c now 6.8 Pt. prefers not to start any diabetic meds upon d/c. States he will be seeing his PCP (Dr. Medrano) upon discharge and will decide upon discussing treatment with him. Blood sugar currently 150-200 range continue insulin sliding scale 3. PAF Continue Lopressor , is stable blood pressure and pulse, Eliquis to be resumed once surgical decision is made. Full Code DVT, pptx with Lovenox for now
--- NOTE | 2021-01-25 15:42 | P.PNGS_ITS ---
Subjective Subjective Date of Service: 01/25/21 Interval history: Says he is comfortable Denies significant pain on the foot Physical Exam Vital Signs: Vital Signs: Last Vital Signs Temp 97.1 F 01/25/21 15:09 Pulse 86 01/25/21 15:09 Resp 14 01/25/21 15:09 BP 114/64 01/25/21 15:09 Pulse Ox 97 01/25/21 15:09 Body Mass Index 31.4 Laboratory Results - last 24 hr 01/24/21 01/24/21 01/25/21 16:21 20:32 00:14 POC Glucose 214 H 215 H Vancomycin Trough 13.5 01/25/21 01/25/21 07:15 11:52 POC Glucose 151 H 154 H Vancomycin Trough Const: General: comfortable and no acute distress GI: Palpation (GI): Soft to palpation and nontender Extrem: Other: Left foot - dressings clean and dry- had been changed earlier Progress Note: A&P Assessment and plan (1) Osteomyelitis: Status: Acute Assessment and Plan: Has osteomyelitis of the big toe MRI Will need revascularization procedure with Dr. Rodriguez Will discuss option of amputation after revascularization In the meantime will need good wound care Will do periodic debridement of the big toe ulcer understands plan Fall Risk Details Current Medications: Current Medications Generic Name Dose Route Start Last Admin Trade Name Yoandyq PRN Reason Stop Dose Admin Acetaminophen 650 mg 01/23/21 21:21 Acetaminophen 325 Mg Tablet PO Q6H PRN Pain, Mild (Pain Scale 1-3) Enoxaparin Sodium 40 mg 01/24/21 09:00 01/25/21 09:46 Enoxaparin Sodium 40 Mg/0.4 Ml Syringe SUBCUT 40 mg DAILY [facility] Administration Vancomycin HCl 1,000 mg/ 270 mls @ 270 mls/hr 01/24/21 01:00 01/25/21 14:29 Sodium Chloride IV Infused Q12H [facility] Infusion Piperacillin Sod/Tazobactam 50 mls @ 100 mls/hr 01/23/21 22:00 01/25/21 10:25 Sod 3.375 gm/ Sodium Chloride IV Infused Q6H [facility] Infusion Vancomycin HCl 1,000 mg/ 270 mls @ 270 mls/hr 01/28/21 08:00 Sodium Chloride IV 01/28/21 08:59 PREOP ONE Insulin Human Lispro 0 unit 01/23/21 21:21 01/25/21 12:15 Insulin Lispro 100 Unit/Ml 3 Ml Vial SUBCUT 2 unit QIDACHS [facility] Administration Protocol Metoprolol Tartrate 25 mg 01/23/21 21:21 01/25/21 09:45 Metoprolol Tartrate 25 Mg Tablet PO 25 mg BID [facility] Administration Protocol Pharmacy Consult 1 each 01/23/21 21:21 Consult Rx Vancomycin Dosing MISCELLANE DAILY PRN Consult order Sodium Chloride 3 ml 01/24/21 00:00 01/25/21 09:46 0.9 % Sodium Chloride Flush 3 Ml Syringe IVFLUSH 3 ml QSHIFT [facility] Administration Vitamin D 25 mcg 01/24/21 09:00 01/25/21 09:45 Cholecalciferol (Vitamin D3) 25 Mcg Tablet PO 25 mcg DAILY [facility] Administration Time Spent With Patient Time: Total time spent is greater than 50% in coordination of care (as documented) at patient's floor/unit and/or counseling patient: Time with patient: 15 - 24 minutes
[2021-01-25 16:44] LABS: Glucose, Whole Blood 158 mg/dL (60-115)
[2021-01-25 20:32] LABS: Glucose, Whole Blood 188 mg/dL (60-115)
[2021-01-26] MEDS: vancomycin HCL 1,000 MG in 0.9 % Sodium Chloride 250 ML 270 MG IV ×2 (01:52→12:45)
[2021-01-26] MEDS: Piperacillin Sodium/Tazobactam 3.375 GM in 0.9 % Sodium Chloride 50 ML IV ×4 (04:15→21:29)
[2021-01-26 07:31] LABS: Glucose, Whole Blood 157 mg/dL (60-115)
[2021-01-26] MEDS: 0.9 % Sodium Chloride Flush 3 ML SYRINGE IVFLUSH ×2 (07:54→16:37)
[2021-01-26] MEDS: Insulin Lispro 100 UNIT/ML 3 ML VIAL SUBCUT ×4 (07:54→21:27)
[2021-01-26 07:55] VITALS: BP 134/72; PULSE 77
[2021-01-26] MEDS: Metoprolol Tartrate 25 MG TABLET PO ×2 (07:55→21:26)
[2021-01-26] MEDS: Enoxaparin Sodium 40 MG/0.4 ML SYRINGE SUBCUT (07:55)
[2021-01-26] MEDS: Cholecalciferol (Vitamin D3) 25 MCG TABLET PO (07:55)
--- NOTE | 2021-01-26 09:26 | HO.PM.IMPN ---
Subjective Subjective Date of Service: 01/26/21 Interval History: Seen in follow-up of osteomyelitis of the toe. He is a well of a plan for angiogram on Thursday. He offered no complaint at this time.\ Review of Systems General no headache,no dizziness, no fever chills. CVS no chest pain, no palpitation. Respiratory no cough ,no sob Gastrointestinal no nausea, no vomiting, no abdominal pain Musculoskeletal: No pain in the toe. Physical Exam Vital Signs: Vital Signs: Last Vital Signs Temp 97.3 F 01/25/21 23:34 Pulse 77 01/26/21 07:55 Resp 18 01/25/21 23:34 BP 134/72 01/26/21 07:55 Pulse Ox 97 01/25/21 23:34 Body Mass Index 31.4 Const: Other: General - no acute distress, appears comfortable Cardiovascular - regular rate and rhythm, S1-S2 Lungs - normal respiratory effort, clear to auscultation bilaterally, no wheezing Abdomen - soft, nontender, no rebound or guarding Extremities - LE in dressing -- dressing in place. Neuro - awake and alert, no focal deficits Objective Data Current Medications Generic Name Dose Route Start Last Admin Trade Name Freq PRN Reason Stop Dose Admin Acetaminophen 650 mg 01/23/21 21:21 Acetaminophen 325 Mg Tablet PO Q6H PRN Pain, Mild (Pain Scale 1-3) Enoxaparin Sodium 40 mg 01/24/21 09:00 01/26/21 07:55 Enoxaparin Sodium 40 Mg/0.4 Ml Syringe SUBCUT 40 mg DAILY [facility] Administration Vancomycin HCl 1,000 mg/ 270 mls @ 270 mls/hr 01/24/21 01:00 01/26/21 03:52 Sodium Chloride IV Infused Q12H [facility] Infusion Piperacillin Sod/Tazobactam 50 mls @ 100 mls/hr 01/23/21 22:00 01/26/21 05:18 Sod 3.375 gm/ Sodium Chloride IV Infused Q6H [facility] Infusion Vancomycin HCl 1,000 mg/ 270 mls @ 270 mls/hr 01/28/21 08:00 Sodium Chloride IV 01/28/21 08:59 PREOP ONE Insulin Human Lispro 0 unit 01/23/21 21:21 01/26/21 07:54 Insulin Lispro 100 Unit/Ml 3 Ml Vial SUBCUT 2 unit QIDACHS [facility] Administration Protocol Metoprolol Tartrate 25 mg 01/23/21 21:21 01/26/21 07:55 Metoprolol Tartrate 25 Mg Tablet PO 25 mg BID [facility] Administration Protocol Pharmacy Consult 1 each 01/23/21 21:21 Consult Rx Vancomycin Dosing MISCELLANE DAILY PRN Consult order Sodium Chloride 3 ml 01/24/21 00:00 01/26/21 07:54 0.9 % Sodium Chloride Flush 3 Ml Syringe IVFLUSH 3 ml QSHIFT [facility] Administration Vitamin D 25 mcg 01/24/21 09:00 01/26/21 07:55 Cholecalciferol (Vitamin D3) 25 Mcg Tablet PO 25 mcg DAILY [facility] Administration Labs CBC & Chem 7: 01/24/21 05:57 01/24/21 05:57 Microbiology Microbiology Results: Microbiology 01/23/21 11:40 Blood - Venous Blood Culture - Preliminary No growth after 48 hours. 01/23/21 11:08 Blood - Venous Blood Culture - Preliminary No growth after 48 hours. Assessment and Plan (1) Ulcer of great toe: Status: Acute (2) Cellulitis of foot: Status: Acute (3) PVD (peripheral vascular disease): Status: Acute (4) Pre-diabetes: Problem details: no medications at this time Status: Acute (5) Arrhythmia: Problem details: Paroxysmal afib-on eliquis & metoprolol Status: Acute Assessment and Plan: 71 M being followed in the Gen Surg clinic and admitted from there for worsening ulcer / cellulitis and concern for osteo 1. L first toe Ulcer / cellulitis dorsum of foot/MRI 01/24 is compatible with fall osteomyelitis of the left big toe. No fevers, normal WBC count, no pain due to neuropathy Dr. Rodriguez will perform angiogram and possible revascularization. on Sunday 01/28 Continue iv vancomycin and IV zosyn day 4 Surgery (Dr[address] Anmol monreal) is following in the event that he would need ultimate amputation. Id consult 2. Diabetes Mellitis previously was in the pre-diabetic range per patient report. Previous records indicate A1C as high as 6.9, A1c now 6.8 Pt. prefers not to start any diabetic meds upon d/c. States he will be seeing his PCP (Dr. Medrano) upon discharge and will decide upon discussing treatment with him. Blood sugar currently 150-200 range continue insulin sliding scale and diabetic diet. 3. PAF Continue Lopressor , is stable blood pressure and pulse, Eliquis to be resumed once surgical decision is made. Full Code DVT, pptx with Lovenox for now
[2021-01-26 11:18] LABS: Glucose, Whole Blood 199 mg/dL (60-115)
[2021-01-26 12:00] VITALS: BP 114/58; PULSE 78; RESP 12; TEMP 36.3; O2SAT 95
[2021-01-26 13:00] LABS: Vancomycin Trough 18.2 mcg/mL (10.0-20.0)
[2021-01-26 14:18] LABS: Anion Gap 13 (12-20); Blood Urea Nitrogen 13 mg/dL (9-16); Calcium 8.5 mg/dL (8.4-10.2); Carbon Dioxide 25 mmol/L (22-29); Chloride 103 mmol/L (96-108); Creatinine Clr Calc Pharmacy 90.2; Estimated Glomerular Filt Rate > 60; Glucose Random 174 mg/dL (60-115); Potassium 4.1 mmol/L (3.3-5.1); Sodium 137 mmol/L (135-145)
[2021-01-26 15:17] VITALS: BP 138/64; PULSE 88; RESP 16; TEMP 36.1; O2SAT 97
[2021-01-26 16:32] LABS: Glucose, Whole Blood 166 mg/dL (60-115)
[2021-01-26 19:54] VITALS: BP 133/67; PULSE 82; RESP 16; TEMP 36.2; O2SAT 97
[2021-01-26 20:33] LABS: Glucose, Whole Blood 187 mg/dL (60-115)
[2021-01-26 21:26] VITALS: BP 133/67; PULSE 82
[2021-01-26 23:43] VITALS: BP 131/70; PULSE 83; RESP 18; TEMP 36.4; O2SAT 97
[2021-01-27] VITALS (8 sets, daily range): BP systolic 102–145; BP diastolic 51–79; PULSE 68–94; RESP 14–19; TEMP 36–36.7; O2SAT 95–98
[2021-01-27] MEDS: vancomycin HCL 1,000 MG in 0.9 % Sodium Chloride 250 ML 270 MG IV ×2 (00:42→12:21)
[2021-01-27] MEDS: 0.9 % Sodium Chloride Flush 3 ML SYRINGE IVFLUSH ×3 (02:25→16:55)
[2021-01-27] MEDS: Piperacillin Sodium/Tazobactam 3.375 GM in 0.9 % Sodium Chloride 50 ML IV ×4 (04:31→21:28)
[2021-01-27 08:19] LABS: Glucose, Whole Blood 164 mg/dL (60-115)
[2021-01-27] MEDS: Enoxaparin Sodium 40 MG/0.4 ML SYRINGE SUBCUT (08:20)
[2021-01-27] MEDS: Insulin Lispro 100 UNIT/ML 3 ML VIAL SUBCUT ×3 (08:20→21:27)
[2021-01-27] MEDS: Metoprolol Tartrate 25 MG TABLET PO ×2 (08:20→21:26)
[2021-01-27] MEDS: Cholecalciferol (Vitamin D3) 25 MCG TABLET PO (08:20)
--- NOTE | 2021-01-27 10:26 | PM.PNGS ---
Subjective Subjective Date of Service: 01/27/21 Interval history: denies new complaints denies pain on left foot Physical Exam Vital Signs: Vital Signs: Last Vital Signs Temp 98.0 F 01/27/21 07:27 Pulse 90 01/27/21 08:20 Resp 19 01/27/21 07:27 BP 145/74 H 01/27/21 08:20 Pulse Ox 98 01/27/21 07:27 Body Mass Index 31.4 Const: General: comfortable and no acute distress Resp: Effort & Inspection: normal respiratory effort Cardio: Rate: regular rate GI: Palpation (GI): Soft to palpation and nontender Extrem: Other: left foot - ulcer on big toe, some drainage, cellulitis sems to be better Progress Note: A&P Assessment and plan (1) Osteomyelitis: Status: Acute Assessment and Plan: has PVD for angioplasty of left leg tomorrow with Dr. Rodriguez wound care for ulcer likely to need amputation of big toe down the line Fall Risk Details Current Medications: Current Medications Generic Name Dose Route Start Last Admin Trade Name Yoandyq PRN Reason Stop Dose Admin Acetaminophen 650 mg 01/23/21 21:21 Acetaminophen 325 Mg Tablet PO Q6H PRN Pain, Mild (Pain Scale 1-3) Enoxaparin Sodium 40 mg 01/24/21 09:00 01/27/21 08:20 Enoxaparin Sodium 40 Mg/0.4 Ml Syringe SUBCUT 40 mg DAILY [facility] Administration Vancomycin HCl 1,000 mg/ 270 mls @ 270 mls/hr 01/24/21 01:00 01/27/21 02:25 Sodium Chloride IV Infused Q12H [facility] Infusion Piperacillin Sod/Tazobactam 50 mls @ 100 mls/hr 01/23/21 22:00 01/27/21 05:08 Sod 3.375 gm/ Sodium Chloride IV Infused Q6H [facility] Infusion Vancomycin HCl 1,000 mg/ 270 mls @ 270 mls/hr 01/28/21 08:00 Sodium Chloride IV 01/28/21 08:59 PREOP ONE Insulin Human Lispro 0 unit 01/23/21 21:21 01/27/21 08:20 Insulin Lispro 100 Unit/Ml 3 Ml Vial SUBCUT 2 unit QIDACHS [facility] Administration Protocol Metoprolol Tartrate 25 mg 01/23/21 21:21 01/27/21 08:20 Metoprolol Tartrate 25 Mg Tablet PO 25 mg BID [facility] Administration Protocol Pharmacy Consult 1 each 01/23/21 21:21 Consult Rx Vancomycin Dosing MISCELLANE DAILY PRN Consult order Sodium Chloride 3 ml 01/24/21 00:00 01/27/21 08:21 0.9 % Sodium Chloride Flush 3 Ml Syringe IVFLUSH 3 ml QSHIFT [facility] Administration Vitamin D 25 mcg 01/24/21 09:00 01/27/21 08:20 Cholecalciferol (Vitamin D3) 25 Mcg Tablet PO 25 mcg DAILY [facility] Administration Time Spent With Patient Time: Total time spent is greater than 50% in coordination of care (as documented) at patient's floor/unit and/or counseling patient: Time with patient: 15 - 24 minutes
[2021-01-27 11:50] LABS: Glucose, Whole Blood 169 mg/dL (60-115)
--- NOTE | 2021-01-27 14:34 | HO.PM.IMPN ---
Subjective Subjective Date of Service: 01/27/21 Interval History: Patient resting comfortably offers no complaints of pain or distress tolerating diet is aware of his plan of angiogram on Thursday prepared to be NPO after midnight. ROS General no headache, no dizziness, no fever chills. CVS no chest pain, no palpitation. Respiratory no cough, no sob Gastrointestinal no nausea, no vomiting, no abdominal pain Physical Exam Vital Signs: Vital Signs: Last Vital Signs Temp 97.1 F 01/27/21 11:37 Pulse 73 01/27/21 11:37 Resp 16 01/27/21 11:37 BP 120/57 L 01/27/21 11:37 Pulse Ox 96 01/27/21 11:37 Body Mass Index 31.4 General - no acute distress, resting comfortably in bed Cardiovascular - regular rate and rhythm, S1-S2 Lungs - normal respiratory effort, clear to auscultation bilaterally, no wheezing Abdomen - soft, nontender, no rebound or guarding Extremities - LE in dressing, no drainage noted , persistent mild hyperemia dorsum of foot Neuro - awake and alert, no focal deficits Objective Data Current Medications Generic Name Dose Route Start Last Admin Trade Name Freq PRN Reason Stop Dose Admin Acetaminophen 650 mg 01/23/21 21:21 Acetaminophen 325 Mg Tablet PO Q6H PRN Pain, Mild (Pain Scale 1-3) Enoxaparin Sodium 40 mg 01/24/21 09:00 01/27/21 08:20 Enoxaparin Sodium 40 Mg/0.4 Ml Syringe SUBCUT 40 mg DAILY CODY Administration Vancomycin HCl 1,000 mg/ 270 mls @ 270 mls/hr 01/24/21 01:00 01/27/21 13:47 Sodium Chloride IV Infused Q12H CODY Infusion Piperacillin Sod/Tazobactam 50 mls @ 100 mls/hr 01/23/21 22:00 01/27/21 11:30 Sod 3.375 gm/ Sodium Chloride IV Infused Q6H CODY Infusion Vancomycin HCl 1,000 mg/ 270 mls @ 270 mls/hr 01/28/21 08:00 Sodium Chloride IV 01/28/21 08:59 PREOP ONE Insulin Human Lispro 0 unit 01/23/21 21:21 01/27/21 12:20 Insulin Lispro 100 Unit/Ml 3 Ml Vial SUBCUT 2 unit QIDACHS CODY Administration Protocol Metoprolol Tartrate 25 mg 01/23/21 21:21 01/27/21 08:20 Metoprolol Tartrate 25 Mg Tablet PO 25 mg BID CODY Administration Protocol Pharmacy Consult 1 each 01/23/21 21:21 Consult Rx Vancomycin Dosing MISCELLANE DAILY PRN Consult order Sodium Chloride 3 ml 01/24/21 00:00 01/27/21 08:21 0.9 % Sodium Chloride Flush 3 Ml Syringe IVFLUSH 3 ml QSHIFT CODY Administration Vitamin D 25 mcg 01/24/21 09:00 01/27/21 08:20 Cholecalciferol (Vitamin D3) 25 Mcg Tablet PO 25 mcg DAILY CODY Administration Labs CBC & Chem 7: 01/24/21 05:57 01/26/21 13:46 Microbiology Microbiology Results: Microbiology 01/23/21 11:40 Blood - Venous Blood Culture - Preliminary No growth after 48 hours. 01/23/21 11:08 Blood - Venous Blood Culture - Preliminary No growth after 48 hours. Assessment and Plan (1) Osteomyelitis: Status: Acute (2) PVD (peripheral vascular disease): Status: Acute (3) Pre-diabetes: Problem details: no medications at this time Status: Acute (4) Arrhythmia: Problem details: Paroxysmal afib-on eliquis & metoprolol Status: Acute (5) Cellulitis of foot: Status: Acute Assessment and Plan: 71 M being followed in the Gen Surg clinic and admitted from there for worsening ulcer / cellulitis and concern for osteo 1. L first toe Ulcer / cellulitis dorsum of foot/MRI 01/24 is compatible with osteomyelitis of the left big toe. No fevers, normal WBC count, no pain due to neuropathy, is scheduled for angiogram and possible revascularization on Sunday 01/28 Continue iv vancomycin and IV zosyn day [address] Wylie is following in the event that he would need ultimate amputation. Await ID input 2. Diabetes Mellitis Blood sugar remains less than 200, previously was in the pre-diabetic range per patient report. Previous records indicate A1C as high as 6.9, A1c now 6.8 Pt. prefers not to start any diabetic meds upon d/c. States he will be seeing his PCP (Dr. Medrano) upon discharge and will decide upon discussing treatment with him. Blood sugar currently 150-200 range continue insulin sliding scale and diabetic diet. 3. PAF Continue Lopressor ,stable blood pressure and pulse, Eliquis to be resumed once surgical decision is made. Full Code DVT, pptx with Lovenox for now
[2021-01-27 16:38] LABS: Glucose, Whole Blood 123 mg/dL (60-115)
--- NOTE | 2021-01-27 20:31 | P.CNID_ITS ---
History of Present Illness Data of Consult Service Date: 01/27/21 Requesting physician: [facility] Primary Care Provider: Ramin Medrano MD HPI Reason for consult: osteomyelitis left great toe,Group B strep He presents with swelling and discomfort left great toe,suddenly less than a wee k. He has malodor and was sent in by Dr Wylie of Surgery He denies trauma to area. VNA has seen him three times a week and mentioned wound getting worse on toe rapidly Culture shows Group B strep and MRI septic arthritis left great toe and osteomyelitis proximal and distal phalanx left great toe He has no fever or chills Blood cultures negative so far I had seen him October and he had left second toe amputated. Review of Systems Review of Systems: Yes all other systems are reviewed and are negative [facility] Past Medical History Medical History Amputated toe of right foot Arrhythmia History of amputation of toe History of heart valve abnormality History of neuropathy Osteomyelitis Osteomyelitis of second toe of left foot Pre-diabetes Ulcer of left second toe Family History Family History Mother No problems noted. Family history: reviewed and not pertinent Surgical History Surgical History Hx of amputation Status post ORIF of fracture of ankle Social History Social History Household Members: Family Housing: House Do you presently have visiting nurse or other home services: Yes Alcohol intake: never Smoking Status: Never smoker Second Hand Smoke Exposure: No Use of substances other than those prescribed or required for medical reasons: No Currently Displaying Signs/Symptoms of Drug Intoxication Withdrawal: No Any prior treatment program specific to substance use: No Have you been hit, kicked, punched, or otherwise hurt by someone within the past year? If so, by whom?: No Do you feel safe in your current relationship?: No Current Relationship Is there a partner from a previous relationship who is making you feel unsafe now?: No Are you made to feel afraid or neglected: No Advance Directives: Yes Advance Directives on File: Yes Advance Directives Date on File: 08/07/20 Do you have thoughts of harming others: None Do you have a plan to hurt others: No Plan Recently lost weight without trying: No service: Yes Current occupational status: retired Meds Allergies Allergy/AdvReac Type Severity Reaction Status Date / Time penicillin V Allergy Intermediate rash Verified 01/07/21 10:17 Erythromycin Allergy Intermediate diarrhea Uncoded 10/04/20 12:52 Active Medications: Current Medications Generic Name Dose Route Start Last Admin Trade Name Freq PRN Reason Stop Dose Admin Acetaminophen 650 mg 01/23/21 21:21 Acetaminophen 325 Mg Tablet PO Q6H PRN Pain, Mild (Pain Scale 1-3) Enoxaparin Sodium 40 mg 01/24/21 09:00 01/27/21 08:20 Enoxaparin Sodium 40 Mg/0.4 Ml Syringe SUBCUT 40 mg DAILY CODY Administration Vancomycin HCl 1,000 mg/ 270 mls @ 270 mls/hr 01/24/21 01:00 01/27/21 13:47 Sodium Chloride IV Infused Q12H CODY Infusion Piperacillin Sod/Tazobactam 50 mls @ 100 mls/hr 01/23/21 22:00 01/27/21 17:35 Sod 3.375 gm/ Sodium Chloride IV Infused Q6H CODY Infusion Vancomycin HCl 1,000 mg/ 270 mls @ 270 mls/hr 01/28/21 08:00 Sodium Chloride IV 01/28/21 08:59 PREOP ONE Insulin Human Lispro 0 unit 01/23/21 21:21 01/27/21 16:36 Insulin Lispro 100 Unit/Ml 3 Ml Vial SUBCUT Not Given QIDACHS [facility] Protocol Metoprolol Tartrate 25 mg 01/23/21 21:21 01/27/21 08:20 Metoprolol Tartrate 25 Mg Tablet PO 25 mg BID CODY Administration Protocol Pharmacy Consult 1 each 01/23/21 21:21 Consult Rx Vancomycin Dosing MISCELLANE DAILY PRN Consult order Sodium Chloride 3 ml 01/24/21 00:00 01/27/21 16:55 0.9 % Sodium Chloride Flush 3 Ml Syringe IVFLUSH 3 ml QSHIFT CODY Administration Vitamin D 25 mcg 01/24/21 09:00 01/27/21 08:20 Cholecalciferol (Vitamin D3) 25 Mcg Tablet PO 25 mcg DAILY CODY Administration Home Medications Medication Instructions Recorded Confirmed Last Taken Type apixaban 5 mg tablet 5 mg PO BID 09/11/20 01/23/21 Unknown History cholecalciferol (vitamin D3) 25 25 mcg PO DAILY 10/23/20 01/23/21 Unknown History mcg (1,000 unit) capsule doxycycline monohydrate 100 mg PO DAILY 01/23/21 01/23/21 01/23/21 History Physical Exam Vital Signs: Vital Signs: Last Vital Signs Temp 98.0 F 01/27/21 19:16 Pulse 94 01/27/21 19:16 Resp 14 01/27/21 19:16 BP 123/60 01/27/21 19:16 Pulse Ox 98 01/27/21 19:16 Body Mass Index 31.4 Const: General: cooperative HENMT: Head: Yes normal to inspection Mouth: Normal oral and palatal mucosa present Eyes: General: appearance normal, both eyes and all related structures Resp: Effort & Inspection: normal respiratory effort Cardio: Rate: regular rate Rhythm: regular rhythm GI: Palpation (GI): Soft to palpation and nontender : General: Yes no CVA tenderness Back/Spine/Pelvis: Back: no CVA tenderness Skin: General skin exam: no rashes or lesions noted Neuro: Other: neuropathy feet Extrem: Other: right great toe ulcer and necrosis,foul odor,diminished pulses Results Labs CBC & Chem 7: 01/24/21 05:57 01/28/21 07:56 Labs: Short CBC 01/23/21 01/24/21 01/26/21 Range/Units 11:08 05:57 13:46 Creatinine 1.04 0.83 1.01 (0.5-1.4) mg/dL C-Reactive Protein 8.91 H (< or = 0.50) mg/dL Microbiology Microbiology Results: Microbiology 01/23/21 11:40 Blood - Venous Blood Culture - Preliminary No growth after 48 hours. 01/23/21 11:08 Blood - Venous Blood Culture - Preliminary No growth after 48 hours. Assessment and Plan (1) Osteomyelitis: Problem details: Group B strep osteomyelitis great toe He has had prior osteomyelitis left second toe He lists allergy to PCN but has tolerated short term Piperacillin/Tazobac syed,semi-synthetic May develop allergy to Merepenem Status: Acute Continue Vancomycin IV outpatient for 6 weeks and po Doxycycline possible 2-3 months after (2) PVD (peripheral vascular disease): Status: Acute
[2021-01-27 20:41] LABS: Glucose, Whole Blood 176 mg/dL (60-115)
[2021-01-28 00:50] LABS: Vancomycin Trough 18.4 mcg/mL (10.0-20.0)
[2021-01-28] MEDS: vancomycin HCL 1,000 MG in 0.9 % Sodium Chloride 250 ML 270 MG IV ×2 (01:02→14:01)
[2021-01-28] MEDS: 0.9 % Sodium Chloride Flush 3 ML SYRINGE IVFLUSH ×4 (01:06→21:36)
[2021-01-28 03:32] VITALS: BP 127/60; PULSE 72; RESP 18; TEMP 36.1; O2SAT 97
[2021-01-28] MEDS: Piperacillin Sodium/Tazobactam 3.375 GM in 0.9 % Sodium Chloride 50 ML IV ×3 (04:05→21:28)
[2021-01-28 07:34] VITALS: BP 141/67; PULSE 75; RESP 17; TEMP 36.1; O2SAT 98
[2021-01-28 08:03] VITALS: BP 141/67; PULSE 75
[2021-01-28] MEDS: Cholecalciferol (Vitamin D3) 25 MCG TABLET PO (08:03)
[2021-01-28] MEDS: Metoprolol Tartrate 25 MG TABLET PO ×2 (08:03→21:27)
[2021-01-28 08:14] LABS: Glucose, Whole Blood 138 mg/dL (60-115)
[2021-01-28 09:00] LABS: Creatinine Clr Calc Pharmacy 104.7; Estimated Glomerular Filt Rate > 60
[2021-01-28 10:15] LABS: Glucose, Whole Blood 142 mg/dL (60-115)
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
--- NOTE | 2021-01-28 15:39 | MHC.CLN ---
F/U PO INTAKE 75-100% DIET RX: REGULAR -PT MAY BENEFIT FROM 2200DM DIET R/T DX PRE-DM PT PENDING OR TOMORROW WILL CHANGE DIET TO 2200DM FOLLOWING
[2021-01-28 15:53] VITALS: BP 107/59; PULSE 81; RESP 20; TEMP 36.1; O2SAT 98
[2021-01-28 16:36] LABS: Glucose, Whole Blood 183 mg/dL (60-115)
[2021-01-28] MEDS: Insulin Lispro 100 UNIT/ML 3 ML VIAL SUBCUT (16:40)
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
[2021-01-28 19:22] VITALS: BP 135/66; PULSE 80; RESP 20; TEMP 36.5; O2SAT 98
[2021-01-28 20:20] LABS: Glucose, Whole Blood 136 mg/dL (60-115)
[2021-01-28 21:27] VITALS: BP 135/66; PULSE 80
[2021-01-29] VITALS (15 sets, daily range): BP systolic 96–152; BP diastolic 46–78; PULSE 64–102; RESP 16–18; TEMP 36–37.1; O2SAT 96–99
[2021-01-29] MEDS: vancomycin HCL 1,000 MG in 0.9 % Sodium Chloride 250 ML 270 MG IV (00:56)
[2021-01-29] MEDS: Piperacillin Sodium/Tazobactam 3.375 GM in 0.9 % Sodium Chloride 50 ML IV ×2 (03:48→10:31)
--- NOTE | 2021-01-29 07:12 | PC.NURSE ---
buttock/coccyx area redness noted with open area wound to left great toe dressing scant amount of red drainage. patient aware of plan of care rash to abd and legs groin michael aware
[2021-01-29 07:21] LABS: Glucose, Whole Blood 142 mg/dL (60-115)
--- NOTE | 2021-01-29 09:13 | W.PM.OPN ---
Operative Note Operative Note Date of Service: 01/29/21 Narrative: Angiogram report from [facility] Preoperative diagnosis: Atherosclerosis of left lower extremity with nonhealing ulcer Postoperative diagnosis: Same Procedure: 1. Ultrasound-guided right common femoral access 2. Aortogram with left lower extremity runoff 3. Angioplasty of left posterior tibial artery Surgeon:Guillermo Rodriguez M.D. Twisting Department End Finder:None Anesthesia: Local with moderate conscious sedation for a total of 53 minutes, performed by nd Specimens:none Drains:none Estimated blood loss: Less than 10 ml Indications: Very pleasant 71-year-old gentleman with nonhealing left great toe ulcer had undergone noninvasive testing. It demonstrated below-knee disease. He now presents for endovascular intervention. The patient has signed the informed consent after reviewing risks, complications, benefits, and alternatives previously discussed with the patient in my office. The patient was given the opportunity to ask any additional questions or voice any concerns. All questions were answered to the patient's satisfaction. Procedure in detail: Patient was brought to the angiography suite prior to which a time-out was called for patient identification and site verification. Bilateral groins were prepped and draped in the standard surgical fashion. Under ultrasound guidance right common femoral was punctured with micro puncture needle and wire. Subsequently a precision 4 Maori sheath was then placed. ProNoxis wire was advanced to the level of the aorta. 4 Maori Flush catheter was brought up and parked at the level of the renal arteries. Aortogram was then undertaken. Catheter was brought down to the level of the iliac bifurcation. Iliacs were subsequently imaged. Catheter was then brought in up and over to the left side SFA. Runoff study was then undertaken. It was recognized that he had below-knee disease. At this time 5000 units of systemic heparin was administered. After 5 minutes of circulation time and up and over 6 Maori sheath was then placed. Wire was brought down all the way down to the below-knee position which was a Glidewire Advantage. Catheter was then brought to follow-up. We closely imaged the below-knee vessels. It was noted that the anterior tibial occludes and the posterior tibial had multiple stenotic areas throughout. This point we were able to traverse these lesions with an 035 wire and follow-up with a Glidewire. Once this was accomplished it was plasty it with a 3 x 40 balloon. Multiple insufflations were required. Once this was accomplished completion angiogram demonstrated excellent result. Catheter wires sheath was brought back to the ipsilateral side. At this point StarClose closure device was then deployed. Patient tolerated the procedure well. Returned to recovery with stable vitals. Interpretation of films: 1. Ultrasound demonstrates appropriate femoral puncture. Image of which was saved. 2. Aortogram demonstrates appropriate caliber aorta. Minimal disease. Appropriate take-off of the renals. 3. Iliac images demonstrate normal flow throughout bilateral iliacs no significant disease 4. Left lower extremity study demonstrated excellent flow through the common femoral profunda and SFA through its entire length. Good flow through the popliteal artery. Below knee demonstrated peroneal which was the most dominant anterior tibial occluded in the proximal quarter. And posterior tibial had flow all the way down to the ankle there was multiple stenotic segments. Completion angiogram demonstrated excellent flow through the posterior tibial. Conclusion: 1. Successful plasty of posterior tibial artery. Patient is on Eliquis. Aspirin will be added. This note is constructed using voice recognition software. While every effort has been made to ensure accuracy, supervisor turkey farm errors may have been included. Thank you for allowing me to participate in the care of your patient. Yours sincerely, Guillermo Rodriguez MD, FACS, R.P.V.I.
[2021-01-29] MEDS: iohexoL 300 MG/ML 100 ML INFUS..BTL IV (09:37)
[2021-01-29] MEDS: Lidocaine HCl 1 % MPF 5 ML VIAL 10 ML SUBCUT (09:38)
[2021-01-29] MEDS: Aspirin 325 MG TABLET 650 MG PO (09:56)
[2021-01-29 13:06] LABS: Glucose, Whole Blood 140 mg/dL (60-115)
--- NOTE | 2021-01-29 13:53 | MHC.CM.PN ---
NURSE CARE MANGER NOTE ELECTRONIC MEDICAL RECRD REVIEWED AQLONG WITH CASE DISCUSSED WITH STAFF NURSE AND MET BREE BELLA , S/P
--- NOTE | 2021-01-29 13:56 | MHC.CM.PN ---
NURSE BAKERY MACHINE MECHANIC SUPERVISOR NOTE CASE DISCUSSED ON MULTIPLE DISCIPLINARY ROUNDS ,PER CHART DOCUMENTATION PATIENT WITH ATHEROSCLEROSIS OF THE LEFT LOWER EXTREMITY WITH NONHEALING ULCER S/P( SUCCESSFUL PLASTY OF POSTERIOR TIBIAL ARTERY PATIENT IS ON ELIQUIS AND ASPIRIN TO BE ADDED), QUESTION OF WHETHER PATIENT WILL NEED [facility] IV ANTIBIOTICS , AND WILL THEN NEED REHAB FOR ADMINISTRATION OF IV ABX PATIENT DOES NOT HAVE TRANSPORTATION TO COME BACK TO SHORT STAY SURGERY , HAS NO TRANSPORTATION AND [facility] DO[facility] NOT FEEL HE WOULD BE ABLE TO HANDLE THIS, IN DISCUSSION PATIENT IS RELUCTANT IN HAVING ANY IV ANTIBIOTICS AT HOME AND ALSO RELUCATANT TO GO TO SHORT TERM REHAB. CLINICAL UPDATES SENT TO THE REHAB PREVIOUSLY
[2021-01-29] MEDS: diphenhydrAMINE HCL 50 MG/ML VIAL 25 MG IVPUSH (14:08)
[2021-01-29] MEDS: Famotidine 20 MG TABLET PO (14:08)
--- NOTE | 2021-01-29 14:35 | HO.PM.IMPN ---
Subjective Subjective Date of Service: 01/29/21 Interval History: Patient return from or are after having angiogram, noted to have diffuse rash on torso and lower extremities, patient unable to recall when rash started denies any itching or discomfort, Feels rash could be be due to linen, denies fever chills, no shortness of breath no difficulty swallowing or lip swelling. ROS General no headache, no dizziness, no fever chills. CVS no chest pain, no palpitation. Respiratory no cough, no sob Gastrointestinal no nausea, no vomiting, no abdominal pain Physical Exam Vital Signs: Vital Signs: Last Vital Signs Temp 97.1 F 01/29/21 13:00 Pulse 93 01/29/21 13:00 Resp 16 01/29/21 13:00 BP 149/72 H 01/29/21 13:00 Pulse Ox 96 01/29/21 13:00 Body Mass Index 31.4 General - no acute distress, resting comfortably in bed Cardiovascular - regular rate and rhythm, S1-S2 Lungs - normal respiratory effort, clear to auscultation bilaterally, no wheezing Abdomen - soft, nontender, no rebound or guarding Extremities - left big toe ulcer some drainage noted , persistent hyperemia dorsum of foot improving Neuro - awake and alert, no focal deficits. Skin diffuse morbilliform rash back upper trunk inside of both thighs and leg. Objective Data Current Medications Generic Name Dose Route Start Last Admin Trade Name Freq PRN Reason Stop Dose Admin Acetaminophen 650 mg 01/23/21 21:21 Acetaminophen 325 Mg Tablet PO Q6H PRN Pain, Mild (Pain Scale 1-3) Aspirin 81 mg 01/30/21 09:00 Aspirin 81 Mg Tab.Chew PO DAILY [facility] Diphenhydramine HCl 25 mg 01/29/21 14:00 01/29/21 14:09 Diphenhydramine Hcl 25 Mg Tablet PO Not Given Q6H [facility] Enoxaparin Sodium 40 mg 01/24/21 09:00 01/28/21 08:03 Enoxaparin Sodium 40 Mg/0.4 Ml Syringe SUBCUT Not Given DAILY [facility] Famotidine 20 mg 01/29/21 09:00 01/29/21 14:08 Famotidine 20 Mg Tablet PO 20 mg DAILY [facility] Administration Vancomycin HCl 1,000 mg/ 270 mls @ 270 mls/hr 01/24/21 01:00 01/29/21 13:04 Sodium Chloride IV Not Given Q12H [facility] Insulin Human Lispro 0 unit 01/23/21 21:21 01/29/21 13:03 Insulin Lispro 100 Unit/Ml 3 Ml Vial SUBCUT Not Given QIDACHS [facility] Protocol Metoprolol Tartrate 25 mg 01/23/21 21:21 01/29/21 12:48 Metoprolol Tartrate 25 Mg Tablet PO Not Given BID [facility] Protocol Oxycodone HCl 5 mg 01/29/21 09:12 Oxycodone Hcl Immed Release 5 Mg Tablet PO Q4H PRN Pain, Moderate (Pain Scale 4-6 Pharmacy Consult 1 each 01/23/21 21:21 Consult Rx Vancomycin Dosing MISCELLANE DAILY PRN Consult order Sodium Chloride 3 ml 01/24/21 00:00 01/29/21 14:09 0.9 % Sodium Chloride Flush 3 Ml Syringe IVFLUSH Not Given QSHIFT [facility] Vitamin D 25 mcg 01/24/21 09:00 01/29/21 08:34 Cholecalciferol (Vitamin D3) 25 Mcg Tablet PO Not Given DAILY [facility] Labs CBC & Chem 7: 01/24/21 05:57 01/28/21 07:56 Microbiology Microbiology Results: Microbiology 01/23/21 11:40 Blood - Venous Blood Culture - Final No growth after 5 days. 01/23/21 11:08 Blood - Venous Blood Culture - Final No growth after 5 days. Assessment and Plan (1) Osteomyelitis: Problem details: Group B strep osteomyelitis great toe He has had prior osteomyelitis left second toe He lists allergy to PCN but has tolerated short term Piperacillin/Tazobactam,semi-synthetic May develop allergy to Merepenem Status: Acute (2) PVD (peripheral vascular disease): Status: Acute (3) Pre-diabetes: Problem details: no medications at this time Status: Acute (4) Cellulitis of foot: Status: Acute (5) Ulcer of great toe: Status: Acute (6) Arrhythmia: Problem details: Paroxysmal afib-on eliquis & metoprolol Status: Acute Assessment and Plan: 71 M being followed in the Gen Surg clinic and admitted from there for worsening ulcer / cellulitis and concern for osteo 1. L first toe Ulcer / cellulitis dorsum of foot/MRI 01/24 is compatible with osteomyelitis of the left big toe. No fevers, normal WBC count, blood culture negative, wound culture from left foot grew strep vaginal laxity and left 2nd toe grew Staphylococcus aureus MSSA, no pain due to neuropathy, Continue iv vancomycin day 7 and dc IV zosyn due to rash, patient underwent angiogram this morning and had a successful plasty of posterior tibial artery by Dr. Rodriguez, he recommend to continue Eliquis and added aspirin Will discuss with ID regarding antibiotic coverage. Being followed by Dr. Wylie for wound care and possible amputation. 2. Diabetes Mellitis Blood sugar remains less than 200, previously was in the pre-diabetic range per patient report. Previous records indicate A1C as high as 6.9, A1c now 6.8 Pt. prefers not to start any diabetic meds upon d/c. States he will be seeing his PCP (Dr. Medrano) upon discharge and will decide upon discussing treatment with him. Blood sugar currently 150-200 range continue insulin sliding scale and diabetic diet. 3. PAF Continue Lopressor ,stable blood pressure and pulse, will resume Eliquis okay with Dr. Rodriguez 4. Drug rash likely related to Zosyn with prior history of rash to penicillin, will place patient on Benadryl scheduled and as needed and Pepcid, will discontinue Zosyn follow clinical course. Full Code DVT, pptx Will resume Eliquis after discussing with General surgery, continue Lovenox.
[2021-01-29 14:58] LABS: Vancomycin Trough 19.2 mcg/mL (10.0-20.0)
[2021-01-29] MEDS: Enoxaparin Sodium 40 MG/0.4 ML SYRINGE SUBCUT (16:08)
[2021-01-29 16:30] LABS: Glucose, Whole Blood 195 mg/dL (60-115)
[2021-01-29] MEDS: Insulin Lispro 100 UNIT/ML 3 ML VIAL SUBCUT ×2 (17:03→21:17)
[2021-01-29] MEDS: diphenhydrAMINE HCL 25 MG TABLET PO (19:38)
[2021-01-29 20:44] LABS: Glucose, Whole Blood 165 mg/dL (60-115)
[2021-01-29] MEDS: Metoprolol Tartrate 25 MG TABLET PO (21:16)
[2021-01-29] MEDS: 0.9 % Sodium Chloride Flush 3 ML SYRINGE IVFLUSH (21:17)
[2021-01-30] VITALS (7 sets, daily range): BP systolic 108–160; BP diastolic 46–94; PULSE 58–101; RESP 16–19; TEMP 36.1–36.7; O2SAT 93–99
[2021-01-30] MEDS: vancomycin HCL 1,000 MG in 0.9 % Sodium Chloride 250 ML 27 MG IV (00:43)
[2021-01-30] MEDS: diphenhydrAMINE HCL 25 MG TABLET PO ×4 (01:48→20:36)
[2021-01-30 06:36] LABS: MANUAL DIFF FLAG NO
[2021-01-30 06:48] LABS: Basophils Percent Auto 0.3 % (0-2); Eosinophils Absolute Auto 0.4 X10*3/uL (0.0-0.4); Eosinophils Percent Auto 4.1 % (0-4); Hematocrit 38.3 % (42-52); Hemoglobin 12.3 g/dl (14.0-18.0); Imm Gran Abs Auto 0.05 X10*3/uL (0.00-0.03); Imm Gran Pct Auto 0.5 % (0.0-0.4); Lymphocytes Absolute Auto 1.4 X10*3/uL (1.2-4.9); Lymphocytes Percent Auto 13.6 % (20-40); Mean Corpuscular HGB Conc 32.1 g/dl (31.0-36.0); Mean Corpuscular Volume 93.4 fL (80-98); Mean Platelet Volume 8.6 fL (9.4-12.4); Monocytes Absolute Auto 0.6 X10*3/uL (0.1-1.2); Monocytes Percent Auto 5.6 % (2-11); Neutrophils Absolute Auto 7.9 X10*3/uL (2.0-8.3); Neutrophils Percent Auto 75.9 % (45-73); Platelet Count 431 X10*3/uL (160-400); Red Cell Distribution Width 13.5 % (11.0-16.0); White Blood Count 10.5 X10*3/uL (4.8-10.8)
[2021-01-30 07:27] LABS: Anion Gap 14 (12-20); Blood Urea Nitrogen 12 mg/dL (9-16); Calcium 8.1 mg/dL (8.4-10.2); Carbon Dioxide 23 mmol/L (22-29); Chloride 106 mmol/L (96-108); Creatinine Clr Calc Pharmacy 104.7; Estimated Glomerular Filt Rate > 60; Glucose Random 137 mg/dL (60-115); Potassium 4.3 mmol/L (3.3-5.1); Sodium 139 mmol/L (135-145)
[2021-01-30 07:58] LABS: Glucose, Whole Blood 139 mg/dL (60-115)
--- NOTE | 2021-01-30 08:20 | PM.PNGS ---
Subjective Subjective Date of Service: 01/30/21 Interval history: Denies complaints No pain on foot Underwent plasty of the left posterior tibial artery yesterday Physical Exam Vital Signs: Vital Signs: Last Vital Signs Temp 97.4 F 01/30/21 07:27 Pulse 86 01/30/21 07:27 Resp 16 01/30/21 07:27 BP 140/65 H 01/30/21 07:27 Pulse Ox 99 01/30/21 07:27 Body Mass Index 31.4 Chemistry 01/28/21 01/30/21 07:56 05:59 Sodium 139 Potassium 4.3 Carbon Dioxide 23 BUN 12 Creatinine 0.87 0.87 Calcium 8.1 L Hematology 01/30/21 05:59 WBC 10.5 Hgb 12.3 L Plt Count 431 H Const: General: comfortable and no acute distress Resp: Effort & Inspection: normal respiratory effort Cardio: Rate: regular rate Extrem: Other: Dressings dry, no cellulitis Progress Note: A&P Assessment and plan (1) Osteomyelitis: Problem details: Group B strep osteomyelitis great toe He has had prior osteomyelitis left second toe He lists allergy to PCN but has tolerated short term Piperacillin/Tazobactam,semi-synthetic May develop allergy to Merepenem Status: Acute Assessment and Plan: Has ulcer the big toe with osteomyelitis Unlikely to heal Will discuss with vascular regarding timing of amputation if patient prefers this Wound care in the meantime Will monitor patient Fall Risk Details Current Medications: Current Medications Generic Name Dose Route Start Last Admin Trade Name Freq PRN Reason Stop Dose Admin Acetaminophen 650 mg 01/23/21 21:21 Acetaminophen 325 Mg Tablet PO Q6H PRN Pain, Mild (Pain Scale 1-3) Aspirin 81 mg 01/30/21 09:00 Aspirin 81 Mg Tab.Chew PO DAILY [facility] Diphenhydramine HCl 25 mg 01/29/21 14:00 01/30/21 01:48 Diphenhydramine Hcl 25 Mg Tablet PO 25 mg Q6H [facility] Administration Enoxaparin Sodium 40 mg 01/29/21 16:00 01/29/21 16:08 Enoxaparin Sodium 40 Mg/0.4 Ml Syringe SUBCUT 40 mg Q24H [facility] Administration Famotidine 20 mg 01/29/21 09:00 01/29/21 14:08 Famotidine 20 Mg Tablet PO 20 mg DAILY [facility] Administration Vancomycin HCl 1,000 mg/ 270 mls @ 270 mls/hr 01/24/21 01:00 01/30/21 00:43 Sodium Chloride IV 27 mls/hr Q12H [facility] Administration Insulin Human Lispro 0 unit 01/23/21 21:21 01/30/21 07:59 Insulin Lispro 100 Unit/Ml 3 Ml Vial SUBCUT Not Given QIDACHS [facility] Protocol Metoprolol Tartrate 25 mg 01/23/21 21:21 01/29/21 21:16 Metoprolol Tartrate 25 Mg Tablet PO 25 mg BID [facility] Administration Protocol Oxycodone HCl 5 mg 01/29/21 09:12 Oxycodone Hcl Immed Release 5 Mg Tablet PO Q4H PRN Pain, Moderate (Pain Scale 4-6 Pharmacy Consult 1 each 01/23/21 21:21 Consult Rx Vancomycin Dosing MISCELLANE DAILY PRN Consult order Sodium Chloride 3 ml 01/24/21 00:00 01/29/21 21:17 0.9 % Sodium Chloride Flush 3 Ml Syringe IVFLUSH 3 ml QSHIFT [facility] Administration Vitamin D 25 mcg 01/24/21 09:00 01/29/21 08:34 Cholecalciferol (Vitamin D3) 25 Mcg Tablet PO Not Given DAILY [facility] Time Spent With Patient Time: Total time spent is greater than 50% in coordination of care (as documented) at patient's floor/unit and/or counseling patient: Time with patient: 15 - 24 minutes
[2021-01-30] MEDS: Metoprolol Tartrate 25 MG TABLET PO ×2 (08:27→20:36)
[2021-01-30] MEDS: Cholecalciferol (Vitamin D3) 25 MCG TABLET PO (08:27)
[2021-01-30] MEDS: Aspirin 81 MG TAB.CHEW PO (08:27)
[2021-01-30] MEDS: 0.9 % Sodium Chloride Flush 3 ML SYRINGE IVFLUSH ×3 (08:35→20:39)
[2021-01-30] MEDS: Famotidine 20 MG TABLET PO (10:10)
[2021-01-30 12:05] LABS: Glucose, Whole Blood 142 mg/dL (60-115)
--- NOTE | 2021-01-30 12:52 | HO.PM.IMPN ---
Subjective Subjective Date of Service: 01/30/21 Interval History: Patient offers no acute complaints, denies itching, no shortness of breath, no difficulty swallowing, patient noted to have a diarrhea and stool incontinence, no fever chills. ROS General no headache, no dizziness ,no fever chills. CVS no chest pain, no palpitation. Respiratory no cough, no sob Gastrointestinal no nausea, no vomiting, no abdominal pain, pos diarrhea. Physical Exam Vital Signs: Vital Signs: Last Vital Signs Temp 98.0 F 01/30/21 11:35 Pulse 71 01/30/21 11:35 Resp 19 01/30/21 11:35 BP 128/55 L 01/30/21 11:35 Pulse Ox 95 01/30/21 11:35 Body Mass Index 31.4 General - no acute distress, resting comfortably in bed Cardiovascular - regular rate and rhythm, S1-S2 Lungs - normal respiratory effort, clear to auscultation bilaterally, no wheezing Abdomen - soft, nontender, no rebound or guarding Extremities - left big toe ulcer some drainage noted , persistent hyperemia dorsum of foot worse question related to rash Neuro - awake and alert, no focal deficits. Skin diffuse morbilliform hyperemic rash on back, upper trunk, inside of both thighs and leg and upper extremities. Objective Data Current Medications Generic Name Dose Route Start Last Admin Trade Name Freq PRN Reason Stop Dose Admin Acetaminophen 650 mg 01/23/21 21:21 Acetaminophen 325 Mg Tablet PO Q6H PRN Pain, Mild (Pain Scale 1-3) Aspirin 81 mg 01/30/21 09:00 01/30/21 08:27 Aspirin 81 Mg Tab.Chew PO 81 mg DAILY [facility] Administration Calamine 1 appl 01/30/21 13:00 Calamine/Zinc Oxide Lotion 177 Ml Bottle TOPICAL ONCE [facility] Protocol Diphenhydramine HCl 25 mg 01/29/21 14:00 01/30/21 08:27 Diphenhydramine Hcl 25 Mg Tablet PO 25 mg Q6H [facility] Administration Enoxaparin Sodium 40 mg 01/29/21 16:00 01/29/21 16:08 Enoxaparin Sodium 40 Mg/0.4 Ml Syringe SUBCUT 40 mg Q24H [facility] Administration Famotidine 20 mg 01/29/21 09:00 01/30/21 10:10 Famotidine 20 Mg Tablet PO 20 mg DAILY [facility] Administration Vancomycin HCl 1,000 mg/ 270 mls @ 270 mls/hr 01/24/21 01:00 01/30/21 10:54 Sodium Chloride IV Infused Q12H [facility] Infusion Methylprednisolone Sodium 104 mls @ 100 mls/hr 01/30/21 12:51 Succinate 250 mg/ Sodium IV 01/30/21 13:53 Chloride ONCE ONE Insulin Human Lispro 0 unit 01/23/21 21:21 01/30/21 11:56 Insulin Lispro 100 Unit/Ml 3 Ml Vial SUBCUT Not Given QIDACHS [facility] Protocol Metoprolol Tartrate 25 mg 01/23/21 21:21 01/30/21 08:27 Metoprolol Tartrate 25 Mg Tablet PO 25 mg BID [facility] Administration Protocol Oxycodone HCl 5 mg 01/29/21 09:12 Oxycodone Hcl Immed Release 5 Mg Tablet PO Q4H PRN Pain, Moderate (Pain Scale 4-6 Pharmacy Consult 1 each 01/23/21 21:21 Consult Rx Vancomycin Dosing MISCELLANE DAILY PRN Consult order Sodium Chloride 3 ml 01/24/21 00:00 01/30/21 08:35 0.9 % Sodium Chloride Flush 3 Ml Syringe IVFLUSH 3 ml QSHIFT [facility] Administration Vitamin D 25 mcg 01/24/21 09:00 01/30/21 08:27 Cholecalciferol (Vitamin D3) 25 Mcg Tablet PO 25 mcg DAILY [facility] Administration Labs CBC & Chem 7: 01/30/21 05:59 01/30/21 05:59 Microbiology Microbiology Results: Microbiology 01/23/21 11:40 Blood - Venous Blood Culture - Final No growth after 5 days. 01/23/21 11:08 Blood - Venous Blood Culture - Final No growth after 5 days. Assessment and Plan (1) Osteomyelitis: Problem details: Group B strep osteomyelitis great toe He has had prior osteomyelitis left second toe He lists allergy to PCN but has tolerated short term Piperacillin/Tazobactam,semi-synthetic May develop allergy to Merepenem Status: Acute (2) PVD (peripheral vascular disease): Status: Acute (3) Pre-diabetes: Problem details: no medications at this time Status: Acute (4) Arrhythmia: Problem details: Paroxysmal afib-on eliquis & metoprolol Status: Acute (5) Cellulitis of foot: Status: Acute (6) Ulcer of great toe: Status: Acute (7) Amputation of toe of left foot: Problem details: Performed for treatment of nonhealing ulcer tip of left 2nd toe with associated osteomyelitis of distal phalanx. He is doing well. Status: Acute (8) Rash of body: Status: Acute Assessment and Plan: 71 M being followed in the Gen Surg clinic and admitted from there for worsening ulcer / cellulitis and concern for osteo 1. L first toe Ulcer / cellulitis dorsum of foot/MRI 01/24 is compatible with osteomyelitis of the left big toe. No fevers, normal WBC count, blood culture negative, wound culture from left foot grew strep agalactiae and left 2nd toe grew Staphylococcus aureus MSSA, no pain due to neuropathy, Continue iv vancomycin day 8 , patient underwent angiogram and had a successful plasty of posterior tibial artery by Dr. Rodriguez,on 01/29, he recommend to continue Eliquis once okay by general surgeon and added aspirin. Id recommend 4-6 weeks of IV vancomycin followed by doxycycline Being followed by Dr. Wylie for wound care and possible amputation, he will discuss with Dr. Rodriguez for timing of amputation will continue to hold Eliquis. 2. Diabetes Mellitis Blood sugar remains less than 200, previously was in the pre-diabetic range per patient report. Previous records indicate A1C as high as 6.9, A1c now 6.8 Pt. prefers not to start any diabetic meds upon d/c. States he will be seeing his PCP (Dr. Medrano) upon discharge and will decide upon discussing treatment with him. Blood sugar currently 150-200 range continue insulin sliding scale and diabetic diet. 3. PAF Continue Lopressor ,stable blood pressure and pulse, will resume Eliquis once okay with General surgery 4. Drug rash likely related to Zosyn with prior history of rash to penicillin, cont. Benadryl scheduled and Pepcid,due to persistent rash will add IV steroid and calamine 5.Diarrhea question related to antibiotics will check C diff. Full Code DVT, pptx Will resume Eliquis after discussing with General surgery, continue Lovenox.
[2021-01-30] MEDS: Calamine/Zinc Oxide LOTION 177 ML BOTTLE 1 APPL TOPICAL (13:18)
[2021-01-30] MEDS: vancomycin HCL 1,000 MG in 0.9 % Sodium Chloride 250 ML 270 MG IV (14:29)
--- NOTE | 2021-01-30 14:37 | MHC.CLN ---
F/U PO INTAKE 75-100% DIET RX: REGULAR -PT MAY BENEFIT FROM 2200DM DIET R/T DX PRE-DM WILL CHANGE DIET TO 2200DM FOLLOWING
[2021-01-30] MEDS: Enoxaparin Sodium 40 MG/0.4 ML SYRINGE SUBCUT (16:19)
[2021-01-30 16:21] LABS: Glucose, Whole Blood 204 mg/dL (60-115)
[2021-01-30] MEDS: Insulin Lispro 100 UNIT/ML 3 ML VIAL SUBCUT ×2 (16:30→20:36)
--- NOTE | 2021-01-30 18:14 | HO.VASCPN ---
Subjective Subjective Date of Service: 01/30/21 Patient reports: no new complaints and feels better Interval history: He very pleasant 71-year-old gentleman with nonhealing left lower extremity ulcer. He has undergone endovascular intervention. He has no postprocedure complications. He feels fairly well. He states that his foot does feel somewhat warmer. He did see General surgery this morning. He notes no new complaints. He is resting comfortably. Tolerating regular diet with no difficulty. Physical Exam Vital Signs: Vital Signs: Last Vital Signs Temp 97.2 F 01/30/21 15:23 Pulse 79 01/30/21 15:23 Resp 18 01/30/21 15:23 BP 132/69 01/30/21 15:23 Pulse Ox 97 01/30/21 15:23 Body Mass Index 31.4 Const: General: cooperative, healthy appearing and no acute distress Orientation/consciousness: oriented to person, oriented to place and oriented to time HENMT: Head: Yes normal to inspection Neck: Carotids: no bruits Chest: Chest palpation & inspection: normal inspection of the chest Resp: Effort & Inspection: normal respiratory effort and able to speak in complete sentences Auscultation: clear to auscultation bilaterally Cardio: Rate: regular rate Heart sounds: S1 normal heart sound present and S2 normal heart sound present Peripheral pulses: dorsalis pedis present on the left dopplerable GI: Inspection: Yes normal to inspection Skin: General skin exam: no rashes or lesions noted Wounds: wounds noted ( Nonhealing left great toe) Neuro: General: oriented to person, oriented to place, oriented to time and CN's II-XI intact bilaterally Extrem: General: Yes normal to inspection, Yes full ROM and Yes no clubbing, cyanosis or edema Psych: Appearance: grossly normal and well kempt Speech and movement: Normal speech and movement present Affect: normal affect Progress Note: A&P Assessment and plan (1) PVD (peripheral vascular disease): Status: Acute Assessment and Plan: patient has nonhealing left great toe ulceration. He underwent successful endovascular intervention with plasty of left posterior tibial artery. He now in has since has 2 vessel runoff. Should be adequate for healing. Case discussed with General surgery. Stable from a vascular perspective. Upon discharge will need to be maintained on aspirin and he was on Eliquis prior to admission. He can follow up with me as an outpatient in 2 weeks time. Thank you for allowing us to assist in his care. Fall Risk Details Current Medications: Current Medications Generic Name Dose Route Start Last Admin Trade Name Frejaylen PRN Reason Stop Dose Admin Acetaminophen 650 mg 01/23/21 21:21 Acetaminophen 325 Mg Tablet PO Q6H PRN Pain, Mild (Pain Scale 1-3) Aspirin 81 mg 01/30/21 09:00 01/30/21 08:27 Aspirin 81 Mg Tab.Chew PO 81 mg DAILY [facility] Administration Calamine 1 appl 01/30/21 13:00 01/30/21 13:18 Calamine/Zinc Oxide Lotion 177 Ml Bottle TOPICAL 1 appl ONCE [facility] Administration Protocol Diphenhydramine HCl 25 mg 01/29/21 14:00 01/30/21 13:17 Diphenhydramine Hcl 25 Mg Tablet PO 25 mg Q6H [facility] Administration Enoxaparin Sodium 40 mg 01/29/21 16:00 01/30/21 16:19 Enoxaparin Sodium 40 Mg/0.4 Ml Syringe SUBCUT 40 mg Q24H [facility] Administration Famotidine 20 mg 01/29/21 09:00 01/30/21 10:10 Famotidine 20 Mg Tablet PO 20 mg DAILY [facility] Administration Vancomycin HCl 1,000 mg/ 270 mls @ 270 mls/hr 01/24/21 01:00 01/30/21 15:38 Sodium Chloride IV Infused Q12H [facility] In[facility] Insulin Human Lispro 0 unit 01/23/21 21:21 01/30/21 16:30 Insulin Lispro 100 Unit/Ml 3 Ml Vial SUBCUT 4 unit QIDACHS [facility] Administration Protocol Metoprolol Tartrate 25 mg 01/23/21 21:21 01/30/21 08:27 Metoprolol Tartrate 25 Mg Tablet PO 25 mg BID [facility] Administration Protocol Oxycodone HCl 5 mg 01/29/21 09:12 Oxycodone Hcl Immed Release 5 Mg Tablet PO Q4H PRN Pain, Moderate (Pain Scale 4-6 Pharmacy Consult 1 each 01/23/21 21:21 Consult Rx Vancomycin Dosing MISCELLANE DAILY PRN Consult order Sodium Chloride 3 ml 01/24/21 00:00 01/30/21 13:24 0.9 % Sodium Chloride Flush 3 Ml Syringe IVFLUSH 3 ml QSHIFT [facility] Administration Vitamin D 25 mcg 01/24/21 09:00 01/30/21 08:27 Cholecalciferol (Vitamin D3) 25 Mcg Tablet PO 25 mcg DAILY [facility] Administration Time Spent With Patient Time: Total time spent is greater than 50% in coordination of care (as documented) at patient's floor/unit and/or counseling patient: Time with patient: 15 - 24 minutes
[2021-01-30 20:29] LABS: Glucose, Whole Blood 336 mg/dL (60-115)
[2021-01-31] VITALS (9 sets, daily range): BP systolic 113–170; BP diastolic 56–66; PULSE 55–80; RESP 16–18; TEMP 36–36.6; O2SAT 96–100
[2021-01-31 01:09] LABS: Vancomycin Trough 15.1 mcg/mL (10.0-20.0)
[2021-01-31 07:49] LABS: Glucose, Whole Blood 187 mg/dL (60-115)
--- NOTE | 2021-01-31 08:12 | PM.PNGS ---
Subjective Subjective Date of Service: 01/31/21 Interval history: Denies pain on the foot No events overnight Physical Exam Vital Signs: Vital Signs: Last Vital Signs Temp 97.5 F 01/31/21 07:31 Pulse 66 01/31/21 07:31 Resp 17 01/31/21 07:31 BP 120/60 01/31/21 07:31 Pulse Ox 98 01/31/21 07:31 Body Mass Index 31.4 Const: General: comfortable and no acute distress Resp: Effort & Inspection: normal respiratory effort Cardio: Rhythm: regular rhythm GI: Palpation (GI): Soft to palpation and nontender Extrem: Other: Left big toe ulceration, nonviable tissue noted, some drainage Progress Note: A&P Assessment and plan (1) Osteomyelitis: Problem details: Group B strep osteomyelitis great toe He has had prior osteomyelitis left second toe He lists allergy to PCN but has tolerated short term Piperacillin/Tazobactam,semi-synthetic May develop allergy to Merepenem Status: Acute Assessment and Plan: Repeat MRI shows worsening left big toe inflammatory changes Osteomyelitis noted on the proximal and distal phalanx of the toe Discussed this with patient, reviewed options with him including amputation versus long-term antibiotic treatment With the appearance of the ulceration as well as MRI changes, I doubt this will resolve with antibiotic treatment alone He has stated that he wants to proceed with amputation of the big toe. Explained to the technique of this procedure. I reviewed the risks including but not limited to bleeding, infections, poor healing, as well as benefits and alternatives He has given consent Fall Risk Details Current Medications: Current Medications Generic Name Dose Route Start Last Admin Trade Name Yoandyq PRN Reason Stop Dose Admin Acetaminophen 650 mg 01/23/21 21:21 Acetaminophen 325 Mg Tablet PO Q6H PRN Pain, Mild (Pain Scale 1-3) Aspirin 81 mg 01/30/21 09:00 01/30/21 08:27 Aspirin 81 Mg Tab.Chew PO 81 mg DAILY [facility] Administration Calamine 1 appl 01/30/21 13:00 01/30/21 13:18 Calamine/Zinc Oxide Lotion 177 Ml Bottle TOPICAL 1 appl ONCE [facility] Administration Protocol Diphenhydramine HCl 25 mg 01/29/21 14:00 01/31/21 01:46 Diphenhydramine Hcl 25 Mg Tablet PO Not Given Q6H [facility] Enoxaparin Sodium 40 mg 01/29/21 16:00 01/30/21 16:19 Enoxaparin Sodium 40 Mg/0.4 Ml Syringe SUBCUT 40 mg Q24H [facility] Administration Famotidine 20 mg 01/29/21 09:00 01/30/21 10:10 Famotidine 20 Mg Tablet PO 20 mg DAILY [facility] Administration Insulin Human Lispro 0 unit 01/23/21 21:21 01/31/21 07:31 Insulin Lispro 100 Unit/Ml 3 Ml Vial SUBCUT Not Given QIDACHS [facility] Protocol Metoprolol Tartrate 25 mg 01/23/21 21:21 01/30/21 20:36 Metoprolol Tartrate 25 Mg Tablet PO 25 mg BID [facility] Administration Protocol Oxycodone HCl 5 mg 01/29/21 09:12 Oxycodone Hcl Immed Release 5 Mg Tablet PO Q4H PRN Pain, Moderate (Pain Scale 4-6 Sodium Chloride 3 ml 01/24/21 00:00 01/30/21 20:39 0.9 % Sodium Chloride Flush 3 Ml Syringe IVFLUSH 3 ml QSHIFT [facility] Administration Vitamin D 25 mcg 01/24/21 09:00 01/30/21 08:27 Cholecalciferol (Vitamin D3) 25 Mcg Tablet PO 25 mcg DAILY [facility] Administration Time Spent With Patient Time: Total time spent is greater than 50% in coordination of care (as documented) at patient's floor/unit and/or counseling patient: Time with patient: 15 - 24 minutes
[2021-01-31] MEDS: 0.9 % Sodium Chloride Flush 3 ML SYRINGE IVFLUSH ×3 (08:30→21:02)
--- NOTE | 2021-01-31 10:08 | P.CONAN_ITS ---
[facility] Active Problems Active Problems: All Active Problems (Updated 01/30/21 @ 13:00 by Deisy Yao MD) Rash of body (Acute) Osteomyelitis (Acute) PVD (peripheral vascular disease) (Acute) Pre-diabetes (Acute) Arrhythmia (Acute) Cellulitis of foot (Acute) Ulcer of great toe (Acute) Amputation of toe of left foot (Acute) Past Medical History Medical History Amputated toe of right foot Arrhythmia History of amputation of toe History of heart valve abnormality History of neuropathy Osteomyelitis Osteomyelitis of second toe of left foot Pre-diabetes Ulcer of left second toe Family History Family History Mother No problems noted. Surgical History Surgical History Hx of amputation Status post ORIF of fracture of ankle Social History Social History Household Members: Family Housing: House Do you presently have visiting nurse or other home services: Yes Alcohol intake: never Smoking Status: Never smoker Second Hand Smoke Exposure: No Use of substances other than those prescribed or required for medical reasons: No Currently Displaying Signs/Symptoms of Drug Intoxication Withdrawal: No Any prior treatment program specific to substance use: No Have you been hit, kicked, punched, or otherwise hurt by someone within the past year? If so, by whom?: No Do you feel safe in your current relationship?: No Current Relationship Is there a partner from a previous relationship who is making you feel unsafe now?: No Are you made to feel afraid or neglected: No Advance Directives: Yes Advance Directives on File: Yes Advance Directives Date on File: 08/07/20 Do you have thoughts of harming others: None Do you have a plan to hurt others: No Plan Recently lost weight without trying: No service: Yes Current occupational status: retired Meds Allergies Allergy/AdvReac Type Severity Reaction Status Date / Time penicillin V Allergy Intermediate rash Verified 01/07/21 10:17 Erythromycin Allergy Intermediate diarrhea Uncoded 10/04/20 12:52 Active Medications: Current Medications Generic Name Dose Route Start Last Admin Trade Name Freq PRN Reason Stop Dose Admin Acetaminophen 650 mg 01/23/21 21:21 Acetaminophen 325 Mg Tablet PO Q6H PRN Pain, Mild (Pain Scale 1-3) Aspirin 81 mg 01/30/21 09:00 01/31/21 08:19 Aspirin 81 Mg Tab.Chew PO Not Given DAILY [facility] Calamine 1 appl 01/30/21 13:00 01/30/21 13:18 Calamine/Zinc Oxide Lotion 177 Ml Bottle TOPICAL 1 appl ONCE [facility] Administration Protocol Diphenhydramine HCl 25 mg 01/29/21 14:00 01/31/21 08:19 Diphenhydramine Hcl 25 Mg Tablet PO Not Given Q6H [facility] Enoxaparin Sodium 40 mg 01/29/21 16:00 01/30/21 16:19 Enoxaparin Sodium 40 Mg/0.4 Ml Syringe SUBCUT 40 mg Q24H [facility] Administration Famotidine 20 mg 01/29/21 09:00 01/31/21 08:19 Famotidine 20 Mg Tablet PO Not Given DAILY [facility] Insulin Human Lispro 0 unit 01/23/21 21:21 01/31/21 07:31 Insulin Lispro 100 Unit/Ml 3 Ml Vial SUBCUT Not Given QIDACHS [facility] Protocol Metoprolol Tartrate 25 mg 01/23/21 21:21 01/31/21 08:19 Metoprolol Tartrate 25 Mg Tablet PO Not Given BID [facility] Protocol Oxycodone HCl 5 mg 01/29/21 09:12 Oxycodone Hcl Immed Release 5 Mg Tablet PO Q4H PRN Pain, Moderate (Pain Scale 4-6 Sodium Chloride 3 ml 01/24/21 00:00 01/31/21 08:30 0.9 % Sodium Chloride Flush 3 Ml Syringe IVFLUSH 3 ml QSHIFT [facility] Administration Vitamin D 25 mcg 01/24/21 09:00 01/31/21 08:19 Cholecalciferol (Vitamin D3) 25 Mcg Tablet PO Not Given DAILY [facility] Home Medications Medication Instructions Recorded Confirmed Last Taken Type apixaban 5 mg tablet 5 mg PO BID 09/11/20 01/23/21 Unknown History cholecalciferol (vitamin D3) 25 25 mcg PO DAILY 10/23/20 01/23/21 Unknown History mcg (1,000 unit) capsule doxycycline monohydrate 100 mg PO DAILY 01/23/21 01/23/21 01/23/21 History Exam Exam Date and Time: January 31, 2021 1008 Height,Weight and Vital Signs: Height 6 ft 2 in Weight 111.13 kg Last Vital Signs Temp 97.5 F 01/31/21 07:31 Pulse 66 01/31/21 07:31 Resp 17 01/31/21 07:31 BP 120/60 01/31/21 07:31 Pulse Ox 98 01/31/21 07:31 Pertinent Lab Results Pertinent Lab Results: Laboratory Tests 01/23/21 01/23/21 01/23/21 11:08 11:08 11:08 WBC 10.1 RBC 3.70 L Hgb 11.2 L Hct 33.9 L MCV 91.6 MCH 30.3 MCHC 33.0 RDW 13.2 Plt Count 395 D MPV 8.9 L Immature Gran % (Auto) 0.6 H Neut % (Auto) 77.2 H Lymph % (Auto) 13.0 L Morrison % (Auto) 7.5 Eos % (Auto) 1.3 Baso % (Auto) 0.4 Lymph # (Auto) 1.3 Morrison # (Auto) 0.8 Eos # (Auto) 0.1 Baso # (Auto) 0.0 Abs Immat Gran (auto) 0.06 H Absolute Neuts (auto) 7.8 Absolute Nucleated RBC 0.000 Nucleated RBC % (auto) 0.0 ESR 91 H PT 16.6 H INR 1.4 H APTT 36.5 Sodium Potassium Chloride Carbon Dioxide Anion Gap BUN Creatinine Estim Creat Clear Calc Estimated GFR POC Glucose Random Glucose Estimat Average Glucose Hemoglobin A1c % Lactic Acid Calcium Magnesium Total Bilirubin Direct Bilirubin AST ALT Alkaline Phosphatase C-Reactive Protein Total Protein Albumin Urine Color Urine Appearance Urine pH Ur Specific [place] Urine Protein Urine Glucose (UA) Urine Ketones Urine Blood Urine Nitrite Ur Leukocyte Esterase Vancomycin Trough COVID-19 ([facility]) COVID-19 Clin Com 01/23/21 01/23/21 01/23/21 11:08 11:08 11:08 WBC RBC Hgb Hct MCV MCH MCHC RDW Plt Count MPV Immature Gran % (Auto) Neut % (Auto) Lymph % (Auto) Morrison % (Auto) Eos % (Auto) Baso % (Auto) Lymph # (Auto) Morrison # (Auto) Eos # (Auto) Baso # (Auto) Abs Immat Gran (auto) Absolute Neuts (auto) Absolute Nucleated RBC Nucleated RBC % (auto) ESR PT INR APTT Sodium 134 L Potassium 5.0 Chloride 99 Carbon Dioxide 25 Anion Gap 15 BUN 18 H Creatinine 1.04 Estim Creat Clear Calc 87.6 Estimated GFR > 60 POC Glucose Random Glucose 259 H Estimat Average Glucose Hemoglobin A1c % Lactic Acid 1.5 Calcium 8.9 Magnesium 2.1 Total Bilirubin 0.7 Direct Bilirubin 0.2 AST 18 ALT 20 Alkaline Phosphatase 99 D C-Reactive Protein 8.91 H Total Protein 6.6 Albumin 3.6 Urine Color Urine Appearance Urine pH Ur Specific [place] Urine Protein Urine Glucose (UA) Urine Ketones Urine Blood Urine Nitrite Ur Leukocyte Esterase Vancomycin Trough COVID-19 ([facility]) Negative COVID-19 Clin Com See Note 01/23/21 01/23/21 01/23/21 11:08 13:42 22:21 WBC RBC Hgb Hct MCV MCH MCHC RDW Plt Count MPV Immature Gran % (Auto) Neut % (Auto) Lymph % (Auto) [place] % (Auto) Eos % (Auto) Baso % (Auto) Lymph # (Auto) [place] # (Auto) Eos # (Auto) Baso # (Auto) Abs Immat Gran (auto) Absolute Neuts (auto) Absolute Nucleated RBC Nucleated RBC % (auto) ESR PT INR APTT Sodium Potassium Chloride Carbon Dioxide Anion Gap BUN Creatinine Estim Creat Clear Calc Estimated GFR POC Glucose 225 H Random Glucose Estimat Average Glucose 148 Hemoglobin A1c % 6.8 Lactic Acid Calcium Magnesium Total Bilirubin Direct Bilirubin AST ALT Alkaline Phosphatase C-Reactive Protein Total Protein Albumin Urine Color YELLOW Urine Appearance CLEAR Urine pH 6.0 Ur Specific [place] 1.015 Urine Protein NEG Urine Glucose (UA) 500 H Urine Ketones NEG Urine Blood NEG Urine Nitrite NEG Ur Leukocyte Esterase NEG Vancomycin Trough COVID-19 ([facility]) COVID-19 Clin DocASAP 01/24/21 01/24/21 01/24/21 05:57 05:57 07:34 WBC 8.1 RBC 3.43 L Hgb 10.4 L Hct 31.8 L MCV 92.7 MCH 30.3 MCHC 32.7 RDW 13.2 Plt Count 359 MPV 8.8 L Immature Gran % (Auto) 0.5 H Neut % (Auto) 75.7 H Lymph % (Auto) 13.2 L Morrison % (Auto) 7.1 Eos % (Auto) 3.1 Baso % (Auto) 0.4 Lymph # (Auto) 1.1 L [place] # (Auto) 0.6 Eos # (Auto) 0.3 Baso # (Auto) 0.0 Abs Immat Gran (auto) 0.04 H Absolute Neuts (auto) 6.1 Absolute Nucleated RBC 0.000 Nucleated RBC % (auto) 0.0 ESR PT INR APTT Sodium 137 Potassium 4.6 Chloride 104 Carbon Dioxide 25 Anion Gap 13 BUN 14 Creatinine 0.83 Estim Creat Clear Calc 109.8 Estimated GFR > 60 POC Glucose 175 H Random Glucose 180 H Estimat Average Glucose Hemoglobin A1c % Lactic Acid Calcium 8.4 Magnesium Total Bilirubin Direct Bilirubin AST ALT Alkaline Phosphatase C-Reactive Protein Total Protein Albumin Urine Color Urine Appearance Urine pH Ur Specific [place] Urine Protein Urine Glucose (UA) Urine Ketones Urine Blood Urine Nitrite Ur Leukocyte Esterase Vancomycin Trough COVID-19 ([facility]) COVID-19 [employer] 01/24/21 01/24/21 01/24/21 11:35 16:21 20:32 WBC RBC Hgb Hct MCV MCH MCHC RDW Plt Count MPV Immature Gran % (Auto) Neut % (Auto) Lymph % (Auto) Morrison % (Auto) Eos % (Auto) Baso % (Auto) Lymph # (Auto) [place] # (Auto) Eos # (Auto) Baso # (Auto) Abs Immat Gran (auto) Absolute Neuts (auto) Absolute Nucleated RBC Nucleated RBC % (auto) ESR PT INR APTT Sodium Potassium Chloride Carbon Dioxide Anion Gap BUN Creatinine Estim Creat Clear Calc Estimated GFR POC Glucose 173 H 214 H 215 H Random Glucose Estimat Average Glucose Hemoglobin A1c % Lactic Acid Calcium Magnesium Total Bilirubin Direct Bilirubin AST ALT Alkaline Phosphatase C-Reactive Protein Total Protein Albumin Urine Color Urine Appearance Urine pH Ur Specific [place] Urine Protein Urine Glucose (UA) Urine Ketones Urine Blood Urine Nitrite Ur Leukocyte Esterase Vancomycin Trough COVID-19 ([facility]) COVID-19 Clin DocASAP 01/25/21 01/25/21 01/25/21 00:14 07:15 11:52 WBC RBC Hgb Hct MCV MCH MCHC RDW Plt Count MPV Immature Gran % (Auto) Neut % (Auto) Lymph % (Auto) [place] % (Auto) Eos % (Auto) Baso % (Auto) Lymph # (Auto) [place] # (Auto) Eos # (Auto) Baso # (Auto) Abs Immat Gran (auto) Absolute Neuts (auto) Absolute Nucleated RBC Nucleated RBC % (auto) ESR PT INR APTT Sodium Potassium Chloride Carbon Dioxide Anion Gap BUN Creatinine Estim Creat Clear Calc Estimated GFR POC Glucose 151 H 154 H Random Glucose Estimat Average Glucose Hemoglobin A1c % Lactic Acid Calcium Magnesium Total Bilirubin Direct Bilirubin AST ALT Alkaline Phosphatase C-Reactive Protein Total Protein Albumin Urine Color Urine Appearance Urine pH Ur Specific [place] Urine Protein Urine Glucose (UA) Urine Ketones Urine Blood Urine Nitrite Ur Leukocyte Esterase Vancomycin Trough 13.5 COVID-19 ([facility]) COVID-19 Clin Com 01/25/21 01/25/21 01/26/21 16:32 20:28 07:27 WBC RBC Hgb Hct MCV MCH MCHC RDW Plt Count MPV Immature Gran % (Auto) Neut % (Auto) Lymph % (Auto) [place] % (Auto) Eos % (Auto) Baso % (Auto) Lymph # (Auto) [place] # (Auto) Eos # (Auto) Baso # (Auto) Abs Immat Gran (auto) Absolute Neuts (auto) Absolute Nucleated RBC Nucleated RBC % (auto) ESR PT INR APTT Sodium Potassium Chloride Carbon Dioxide Anion Gap BUN Creatinine Estim Creat Clear Calc Estimated GFR POC Glucose 158 H 188 H 157 H Random Glucose Estimat Average Glucose Hemoglobin A1c % Lactic Acid Calcium Magnesium Total Bilirubin Direct Bilirubin AST ALT Alkaline Phosphatase C-Reactive Protein Total Protein Albumin Urine Color Urine Appearance Urine pH Ur Specific [place] Urine Protein Urine Glucose (UA) Urine Ketones Urine Blood Urine Nitrite Ur Leukocyte Esterase Vancomycin Trough COVID-19 ([facility]) COVID-19 [employer] 01/26/21 01/26/21 01/26/21 11:15 12:00 13:46 WBC RBC Hgb Hct MCV MCH MCHC RDW Plt Count MPV Immature Gran % (Auto) Neut % (Auto) Lymph % (Auto) [place] % (Auto) Eos % (Auto) Baso % (Auto) Lymph # (Auto) [place] # (Auto) Eos # (Auto) Baso # (Auto) Abs Immat Gran (auto) Absolute Neuts (auto) Absolute Nucleated RBC Nucleated RBC % (auto) ESR PT INR APTT Sodium 137 Potassium 4.1 Chloride 103 Carbon Dioxide 25 Anion Gap 13 BUN 13 Creatinine 1.01 Estim Creat Clear Calc 90.2 Estimated GFR > 60 POC Glucose 199 H Random Glucose 174 H Estimat Average Glucose Hemoglobin A1c % Lactic Acid Calcium 8.5 Magnesium Total Bilirubin Direct Bilirubin AST ALT Alkaline Phosphatase C-Reactive Protein Total Protein Albumin Urine Color Urine Appearance Urine pH Ur Specific [place] Urine Protein Urine Glucose (UA) Urine Ketones Urine Blood Urine Nitrite Ur Leukocyte Esterase Vancomycin Trough 18.2 COVID-19 ([facility]) COVID-19 [employer] 01/26/21 01/26/21 01/27/21 16:14 20:27 07:28 WBC RBC Hgb Hct MCV MCH MCHC RDW Plt Count MPV Immature Gran % (Auto) Neut % (Auto) Lymph % (Auto) [place] % (Auto) Eos % (Auto) Baso % (Auto) Lymph # (Auto) [place] # (Auto) Eos # (Auto) Baso # (Auto) Abs Immat Gran (auto) Absolute Neuts (auto) Absolute Nucleated RBC Nucleated RBC % (auto) ESR PT INR APTT Sodium Potassium Chloride Carbon Dioxide Anion Gap BUN Creatinine Estim Creat Clear Calc Estimated GFR POC Glucose 166 H 187 H 164 H Random Glucose Estimat Average Glucose Hemoglobin A1c % Lactic Acid Calcium Magnesium Total Bilirubin Direct Bilirubin AST ALT Alkaline Phosphatase C-Reactive Protein Total Protein Albumin Urine Color Urine Appearance Urine pH Ur Specific [place] Urine Protein Urine Glucose (UA) Urine Ketones Urine Blood Urine Nitrite Ur Leukocyte Esterase Vancomycin Trough COVID-19 ([facility]) COVID-19 [employer] 01/27/21 01/27/21 01/27/21 11:39 16:31 20:28 WBC RBC Hgb Hct MCV MCH MCHC RDW Plt Count MPV Immature Gran % (Auto) Neut % (Auto) Lymph % (Auto) [place] % (Auto) Eos % (Auto) Baso % (Auto) Lymph # (Auto) [place] # (Auto) Eos # (Auto) Baso # (Auto) Abs Immat Gran (auto) Absolute Neuts (auto) Absolute Nucleated RBC Nucleated RBC % (auto) ESR PT INR APTT Sodium Potassium Chloride Carbon Dioxide Anion Gap BUN Creatinine Estim Creat Clear Calc Estimated GFR POC Glucose 169 H 123 H 176 H Random Glucose Estimat Average Glucose Hemoglobin A1c % Lactic Acid Calcium Magnesium Total Bilirubin Direct Bilirubin AST ALT Alkaline Phosphatase C-Reactive Protein Total Protein Albumin Urine Color Urine Appearance Urine pH Ur Specific [place] Urine Protein Urine Glucose (UA) Urine Ketones Urine Blood Urine Nitrite Ur Leukocyte Esterase Vancomycin Trough COVID-19 ([facility]) COVID-19 Clin Doc[facility]AP 01/28/21 01/28/21 01/28/21 00:10 07:33 07:56 WBC RBC Hgb Hct MCV MCH MCHC RDW Plt Count MPV Immature Gran % (Auto) Neut % (Auto) Lymph % (Auto) [place] % (Auto) Eos % (Auto) Baso % (Auto) Lymph # (Auto) [place] # (Auto) Eos # (Auto) Baso # (Auto) Abs Immat Gran (auto) Absolute Neuts (auto) Absolute Nucleated RBC Nucleated RBC % (auto) ESR PT INR APTT Sodium Potassium Chloride Carbon Dioxide Anion Gap BUN Creatinine 0.87 Estim Creat Clear Calc 104.7 Estimated GFR > 60 POC Glucose 138 H Random Glucose Estimat Average Glucose Hemoglobin A1c % Lactic Acid Calcium Magnesium Total Bilirubin Direct Bilirubin AST ALT Alkaline Phosphatase C-Reactive Protein Total Protein Albumin Urine Color Urine Appearance Urine pH Ur Specific [place] Urine Protein Urine Glucose (UA) Urine Ketones Urine Blood Urine Nitrite Ur Leukocyte Esterase Vancomycin Trough 18.4 COVID-19 ([facility]) [employer] 01/28/21 01/28/21 01/28/21 10:11 16:29 20:10 WBC RBC Hgb Hct MCV MCH MCHC RDW Plt Count MPV Immature Gran % (Auto) Neut % (Auto) Lymph % (Auto) [place] % (Auto) Eos % (Auto) Baso % (Auto) Lymph # (Auto) [place] # (Auto) Eos # (Auto) Baso # (Auto) Abs Immat Gran (auto) Absolute Neuts (auto) Absolute Nucleated RBC Nucleated RBC % (auto) ESR PT INR APTT Sodium Potassium Chloride Carbon Dioxide Anion Gap BUN Creatinine Estim Creat Clear Calc Estimated GFR POC Glucose 142 H 183 H 136 H Random Glucose Estimat Average Glucose Hemoglobin A1c % Lactic Acid Calcium Magnesium Total Bilirubin Direct Bilirubin AST ALT Alkaline Phosphatase C-Reactive Protein Total Protein Albumin Urine Color Urine Appearance Urine pH Ur Specific [place] Urine Protein Urine Glucose (UA) Urine Ketones Urine Blood Urine Nitrite Ur Leukocyte Esterase Vancomycin Trough COVID-19 ([facility]) COVID-19 [employer] 01/29/21 01/29/21 01/29/21 07:17 12:59 14:20 WBC RBC Hgb Hct MCV MCH MCHC RDW Plt Count MPV Immature Gran % (Auto) Neut % (Auto) Lymph % (Auto) [place] % (Auto) Eos % (Auto) Baso % (Auto) Lymph # (Auto) [place] # (Auto) Eos # (Auto) Baso # (Auto) Abs Immat Gran (auto) Absolute Neuts (auto) Absolute Nucleated RBC Nucleated RBC % (auto) ESR PT INR APTT Sodium Potassium Chloride Carbon Dioxide Anion Gap BUN Creatinine Estim Creat Clear Calc Estimated GFR POC Glucose 142 H 140 H Random Glucose Estimat Average Glucose Hemoglobin A1c % Lactic Acid Calcium Magnesium Total Bilirubin Direct Bilirubin AST ALT Alkaline Phosphatase C-Reactive Protein Total Protein Albumin Urine Color Urine Appearance Urine pH Ur Specific [place] Urine Protein Urine Glucose (UA) Urine Ketones Urine Blood Urine Nitrite Ur Leukocyte Esterase Vancomycin Trough 19.2 COVID-19 ([facility]) COVID-[employer] 01/29/21 01/29/21 01/30/21 16:18 20:33 05:59 WBC 10.5 RBC 4.10 L Hgb 12.3 L Hct 38.3 L D MCV 93.4 MCH 30.0 MCHC 32.1 RDW 13.5 Plt Count 431 H MPV 8.6 L Immature Gran % (Auto) 0.5 H Neut % (Auto) 75.9 H Lymph % (Auto) 13.6 L [place] % (Auto) 5.6 Eos % (Auto) 4.1 H Baso % (Auto) 0.3 Lymph # (Auto) 1.4 [place] # (Auto) 0.6 Eos # (Auto) 0.4 Baso # (Auto) 0.0 Abs Immat Gran (auto) 0.05 H Absolute Neuts (auto) 7.9 Absolute Nucleated RBC 0.000 Nucleated RBC % (auto) 0.0 ESR PT INR APTT Sodium Potassium Chloride Carbon Dioxide Anion Gap BUN Creatinine Estim Creat Clear Calc Estimated GFR POC Glucose 195 H 165 H Random Glucose Estimat Average Glucose Hemoglobin A1c % Lactic Acid Calcium Magnesium Total Bilirubin Direct Bilirubin AST ALT Alkaline Phosphatase C-Reactive Protein Total Protein Albumin Urine Color Urine Appearance Urine pH Ur Specific [place] Urine Protein Urine Glucose (UA) Urine Ketones Urine Blood Urine Nitrite Ur Leukocyte Esterase Vancomycin Trough COVID-19 ([facility]) COVID-19 [employer] 01/30/21 01/30/21 01/30/21 05:59 07:27 11:35 WBC RBC Hgb Hct MCV MCH MCHC RDW Plt Count MPV Immature Gran % (Auto) Neut % (Auto) Lymph % (Auto) [place] % (Auto) Eos % (Auto) Baso % (Auto) Lymph # (Auto) [place] # (Auto) Eos # (Auto) Baso # (Auto) Abs Immat Gran (auto) Absolute Neuts (auto) Absolute Nucleated RBC Nucleated RBC % (auto) ESR PT INR APTT Sodium 139 Potassium 4.3 Chloride 106 Carbon Dioxide 23 Anion Gap 14 BUN 12 Creatinine 0.87 Estim Creat Clear Calc 104.7 Estimated GFR > 60 POC Glucose 139 H 142 H Random Glucose 137 H Estimat Average Glucose Hemoglobin A1c % Lactic Acid Calcium 8.1 L Magnesium Total Bilirubin Direct Bilirubin AST ALT Alkaline Phosphatase C-Reactive Protein Total Protein Albumin Urine Color Urine Appearance Urine pH Ur Specific [place] Urine Protein Urine Glucose (UA) Urine Ketones Urine Blood Urine Nitrite Ur Leukocyte Esterase Vancomycin Trough COVID-19 ([facility]) COVID-19 Clin Com 01/30/21 01/30/21 01/31/21 16:16 20:25 00:11 WBC RBC Hgb Hct MCV MCH MCHC RDW Plt Count MPV Immature Gran % (Auto) Neut % (Auto) Lymph % (Auto) [place] % (Auto) Eos % (Auto) Baso % (Auto) Lymph # (Auto) [place] # (Auto) Eos # (Auto) Baso # (Auto) Abs Immat Gran (auto) Absolute Neuts (auto) Absolute Nucleated RBC Nucleated RBC % (auto) ESR PT INR APTT Sodium Potassium Chloride Carbon Dioxide Anion Gap BUN Creatinine Estim Creat Clear Calc Estimated GFR POC Glucose 204 H 336 H Random Glucose Estimat Average Glucose Hemoglobin A1c % Lactic Acid Calcium Magnesium Total Bilirubin Direct Bilirubin AST ALT Alkaline Phosphatase C-Reactive Protein Total Protein Albumin Urine Color Urine Appearance Urine pH Ur Specific [place] Urine Protein Urine Glucose (UA) Urine Ketones Urine Blood Urine Nitrite Ur Leukocyte Esterase Vancomycin Trough 15.1 COVID-19 ([facility]) COVID-19 Clin Com 01/31/21 07:28 WBC RBC Hgb Hct MCV MCH MCHC RDW Plt Count MPV Immature Gran % (Auto) Neut % (Auto) Lymph % (Auto) [place] % (Auto) Eos % (Auto) Baso % (Auto) Lymph # (Auto) [place] # (Auto) Eos # (Auto) Baso # (Auto) Abs Immat Gran (auto) Absolute Neuts (auto) Absolute Nucleated RBC Nucleated RBC % (auto) ESR PT INR APTT Sodium Potassium Chloride Carbon Dioxide Anion Gap BUN Creatinine Estim Creat Clear Calc Estimated GFR POC Glucose 187 H Random Glucose Estimat Average Glucose Hemoglobin A1c % Lactic Acid Calcium Magnesium Total Bilirubin Direct Bilirubin AST ALT Alkaline Phosphatase C-Reactive Protein Total Protein Albumin Urine Color Urine Appearance Urine pH Ur Specific [place] Urine Protein Urine Glucose (UA) Urine Ketones Urine Blood Urine Nitrite Ur Leukocyte Esterase Vancomycin Trough COVID-19 ([facility]) COVID-19 Clin Com
[2021-01-31 10:48] LABS: Glucose, Whole Blood 132 mg/dL (60-115)
[2021-01-31] MEDS: Lactated Ringers 1,000 ML 20 ML IVCONT (10:54)
--- NOTE | 2021-01-31 12:01 | PM.OP ---
Brief Operative Note Date of Service: 01/31/21 Pre-op diagnosis: osteomyelitis, left big toe Post-op diagnosis: same Procedure: amputation, left big toe Surgeon: Ramin Wylie MD Anesthesia: MAC Estimated blood loss (mL): 25 Pathology: other (big toe) Condition: stable Disposition: PACU
[2021-01-31 12:50] LABS: Glucose, Whole Blood 175 mg/dL (60-115)
--- NOTE | 2021-01-31 14:11 | HO.PM.IMPN ---
Subjective Subjective Date of Service: 01/31/21 Interval History: Patient is NPO for left big toe amputation, patient denies itching, no fever, no chills, no other acute issues overnight. ROS General no headache, no dizziness ,no fever chills. CVS no chest pain, no palpitation. Respiratory no cough, no sob Gastrointestinal no nausea, no vomiting, no abdominal pain, diarrhea resolved . Physical Exam Vital Signs: Vital Signs: Last Vital Signs Temp 97.4 F 01/31/21 12:42 Pulse 60 01/31/21 12:42 Resp 18 01/31/21 12:42 BP 153/66 H 01/31/21 12:42 Pulse Ox 100 01/31/21 12:42 Body Mass Index 31.4 General - no acute distress, resting comfortably in bed Cardiovascular - regular rate and rhythm, S1-S2 Lungs - normal respiratory effort, clear to auscultation bilaterally, no wheezing Abdomen - soft, nontender, no rebound or guarding Extremities - left big toe ulcer, hyperemia dorsum of foot worse question related to rash Neuro - awake and alert, no focal deficits. Skin diffuse morbilliform hyperemic rash on back, upper trunk, inside of both thighs and leg and upper extremities, Less hyperemic this morning. Objective Data Current Medications Generic Name Dose Route Start Last Admin Trade Name Freq PRN Reason Stop Dose Admin Acetaminophen 650 mg 01/23/21 21:21 Acetaminophen 325 Mg Tablet PO Q6H PRN Pain, Mild (Pain Scale 1-3) Acetaminophen 650 mg 01/31/21 10:10 Acetaminophen 325 Mg Tablet PO ONCE PRN Pain, Mild (Pain Scale 1-3) Aspirin 81 mg 01/30/21 09:00 01/31/21 08:19 Aspirin 81 Mg Tab.Chew PO Not Given DAILY [facility] Calamine 1 appl 01/30/21 13:00 01/30/21 13:18 Calamine/Zinc Oxide Lotion 177 Ml Bottle TOPICAL 1 appl ONCE [facility] Administration Protocol Diphenhydramine HCl 25 mg 01/29/21 14:00 01/31/21 08:19 Diphenhydramine Hcl 25 Mg Tablet PO Not Given Q6H [facility] Enoxaparin Sodium 40 mg 01/29/21 16:00 01/30/21 16:19 Enoxaparin Sodium 40 Mg/0.4 Ml Syringe SUBCUT 40 mg Q24H [facility] Administration Famotidine 20 mg 01/29/21 09:00 01/31/21 08:19 Famotidine 20 Mg Tablet PO Not Given DAILY [facility] Fentanyl 50 mcg 01/31/21 10:10 Fentanyl Citrate/Pf 100 Mcg/2 Ml Vial IVPUSH Q5M PRN Pain, Severe (Pain Scale 7-10) Lactated Ringer's 1,000 mls @ 20 mls/hr 01/31/21 10:15 01/31/21 10:54 Lr IVCONT 20 mls/hr .Q24H [facility] Administration Insulin Human Lispro 0 unit 01/23/21 21:21 01/31/21 11:24 Insulin Lispro 100 Unit/Ml 3 Ml Vial SUBCUT Not Given QIDACHS [facility] Protocol Metoprolol Tartrate 25 mg 01/23/21 21:21 01/31/21 08:19 Metoprolol Tartrate 25 Mg Tablet PO Not Given BID [facility] Protocol Ondansetron HCl 4 mg 01/31/21 10:10 Ondansetron Hcl 4 Mg/2 Ml Vial IVPUSH ONCE PRN Nausea and Vomiting Oxycodone HCl 5 mg 01/29/21 09:12 Oxycodone Hcl Immed Release 5 Mg Tablet PO Q4H PRN Pain, Moderate (Pain Scale 4-6 Oxycodone HCl 5 mg 01/31/21 10:10 Oxycodone Hcl Immed Release 5 Mg Tablet PO ONCE PRN Pain, Severe (Pain Scale 7-10) Sodium Chloride 3 ml 01/24/21 00:00 01/31/21 08:30 0.9 % Sodium Chloride Flush 3 Ml Syringe IVFLUSH 3 ml QSHIFT [facility] Administration Vitamin D 25 mcg 01/24/21 09:00 01/31/21 08:19 Cholecalciferol (Vitamin D3) 25 Mcg Tablet PO Not Given DAILY [facility] Labs CBC & Chem 7: 01/30/21 05:59 01/30/21 05:59 Microbiology Microbiology Results: Microbiology 01/23/21 11:40 Blood - Venous Blood Culture - Final No growth after 5 days. 01/23/21 11:08 Blood - Venous Blood Culture - Final No growth after 5 days. Assessment and Plan (1) Cellulitis of foot: Status: Acute (2) Osteomyelitis: Problem details: Group B strep osteomyelitis great toe He has had prior osteomyelitis left second toe He lists allergy to PCN but has tolerated short term Piperacillin/Tazobactam,semi-synthetic May develop allergy to Merepenem Status: Acute (3) Rash of body: Status: Acute (4) PVD (peripheral vascular disease): Status: Acute (5) Pre-diabetes: Problem details: no medications at this time Status: Acute (6) Ulcer of great toe: Status: Acute Assessment and Plan: 71 M being followed in the Gen Surg clinic and admitted from there for worsening ulcer / cellulitis and concern for osteo 1. L first toe Ulcer / cellulitis dorsum of foot/MRI 01/24 is compatible with osteomyelitis of the left big toe. No fevers, normal WBC count, blood culture negative, wound culture from left foot grew strep agalactiae and left 2nd toe grew Staphylococcus aureus MSSA, Patient scheduled for left toe amputation today by General surgery, will continue iv vancomycin day 9 will discuss duration of antibiotic with ID since patient is status post amputation patient underwent angiogram and had a successful plasty of posterior tibial artery by Dr. Rodriguez,on 01/29 Will resume Eliquis once okay by general surgeon 2. Diabetes Mellitis Blood sugar remains less than 200, previously was in the pre-diabetic range per patient report. Previous records indicate A1C as high as 6.9, A1c now 6.8 Pt. prefers not to start any diabetic meds upon d/c. States he will be seeing his PCP (Dr. Medrano) upon discharge and will decide upon discussing treatment with him. Blood sugar currently 150-200 range continue insulin sliding scale and diabetic diet. 3. PAF Continue Lopressor ,stable blood pressure and pulse, will resume Eliquis once okay with General surgery 4. Drug rash likely related to Zosyn with prior history of rash to penicillin, cont. Benadryl scheduled, calamine and Pepcid, rash is improving. 5.Diarrhea question related to antibiotics , resolved, stool not sent for C diff follow clinical course. Full Code DVT, pptx Will resume Eliquis after discussing with General surgery, continue Lovenox.
--- NOTE | 2021-01-31 14:21 | MHC.CM.PN ---
NURSE CONFER[facility] CENTER COORDINATOR NOTE ELECTRONIC MEDICAL RECORDS REVIEWED ALONG WITH CASE DISCUSSED WITH STAFF NURSE AND ON MULTIPLE DISCIPLINARY ROUNDS MET WITH PATIENT , HE HAD AMPUTATION OF THE GREAT BIG TOE Today , anticipate he will start with physical therapy tomorrow and hoping he will not need iv amtibiotics and be able to go home with resumption the [facility] (nsg/pt)
[2021-01-31] MEDS: diphenhydrAMINE HCL 25 MG TABLET PO ×2 (14:49→21:00)
[2021-01-31] MEDS: Enoxaparin Sodium 40 MG/0.4 ML SYRINGE SUBCUT (14:49)
[2021-01-31] MEDS: vancomycin HCL 1,000 MG in 0.9 % Sodium Chloride 250 ML 270 MG IV (15:11)
[2021-01-31 16:20] LABS: Glucose, Whole Blood 184 mg/dL (60-115)
[2021-01-31] MEDS: Insulin Lispro 100 UNIT/ML 3 ML VIAL SUBCUT (16:28)
[2021-01-31 20:49] LABS: Glucose, Whole Blood 131 mg/dL (60-115)
--- NOTE | 2021-01-31 20:58 | W.PM.OPN ---
Operative Note Operative Note Date of Service: 01/31/21 Narrative: Preop diagnosis: osteomyelitis, left big toe Postop diagnosis: the same Procedure: Amputation, left big toe Surgeon: Ramin Wylie MD The patient is a 71M with a big toe ulcer with gangrene and drainage. His MRI had shown osteomyelitis of the proximal and distal phalanx. He wanted to proceed with toe amputation. He was aware of the risks, benefits and alterantives. He did have peripheral arterial disease and needed to have angioplasty of the posterior tibial artery before amputation was planned. He was brought to the OR and placed supine under MAC. The left foot was prepped and draped in the usual sterie fashion.The planned line of incision around the base of the big toe to the interdigital space was marked.. A surgical timeout was done. The patient received Cefazolin IV for prophylaxis. I infitrated the planned line of incision with Lidocaine 1%. I made the incision using a blade 15 around the big toe. This was carried down through the full thickness of the skin and subcutaneous layer using electrocautery. I divided all soft tissues including tendons and ligaments using curved Hsu scissors to expose the metatarsal head. I divided all attachments at the metatarsophalageal joint until the big toe was released.This was sent as a specimen. I used electrocautery to achieve hemostasis. I copiously irrigated. I developed viable flaps on both the dorsal and plantar aspects to allow closure without tension. I reapposed the soft tissues with Polysorb 2-0 interrupted sutures and closed the skin with full thickness Nylon 2-0 interrupted sutures. Xeroform dressings and thick gauze was applied and the foot was wrapped in Kerlix roll. The patient tolerated the procedure well. Initial and final counts of sponges and instruments were correct. EBL was about 25 cc. The patient was awakened and transferred to the RR with stable vital signs..
[2021-01-31] MEDS: Metoprolol Tartrate 25 MG TABLET PO (21:00)
[2021-02-01 03:53] VITALS: BP 135/65; PULSE 68; RESP 17; TEMP 36.6; O2SAT 98
[2021-02-01] MEDS: vancomycin HCL 1,000 MG in 0.9 % Sodium Chloride 250 ML 270 MG IV ×2 (04:04→15:11)
[2021-02-01] MEDS: diphenhydrAMINE HCL 25 MG TABLET PO ×4 (04:04→19:28)
[2021-02-01 07:21] VITALS: BP 153/65; PULSE 69; RESP 18; TEMP 36.5; O2SAT 99
--- NOTE | 2021-02-01 07:38 | HO.POSTANES ---
Post Anesthesia Evaluation Post Anesthesia Evaluation Vital Signs: Vital Signs Temp Pulse Resp BP Pulse Ox 02/01/21 07:21 97.7 F 69 18 153/65 H 99 02/01/21 03:53 97.9 F 68 17 135/65 98 01/31/21 23:46 96.8 F 62 18 139/62 96 01/31/21 21:00 80 140/57 H Anesthesia: Monitored Mental Status: Awake Pain Control: Satisfactory Nausea/Vomiting: None Hydration: Adequate Anesthesia-Related Issues: No Anes. Related Issues
[2021-02-01] MEDS: 0.9 % Sodium Chloride Flush 3 ML SYRINGE IVFLUSH ×2 (07:49→17:31)
[2021-02-01 07:50] LABS: Glucose, Whole Blood 131 mg/dL (60-115)
[2021-02-01 10:10] VITALS: O2SAT 97
[2021-02-01] MEDS: Famotidine 20 MG TABLET PO (10:24)
[2021-02-01] MEDS: Metoprolol Tartrate 25 MG TABLET PO ×2 (10:24→21:20)
[2021-02-01] MEDS: Aspirin 81 MG TAB.CHEW PO (10:25)
[2021-02-01] MEDS: Cholecalciferol (Vitamin D3) 25 MCG TABLET PO (10:25)
[2021-02-01] MEDS: Insulin Lispro 100 UNIT/ML 3 ML VIAL SUBCUT ×2 (11:40→21:20)
[2021-02-01 11:48] LABS: Glucose, Whole Blood 151 mg/dL (60-115)
--- NOTE | 2021-02-01 11:48 | HO.VASCPN ---
Subjective Subjective Date of Service: 02/01/21 Patient reports: feels better Interval history: 71-year-old gentleman status post endovascular intervention and toe amp. He appears to be doing relatively well. Pain is well controlled. He has now developed a generalized body rash which is his main complaint. In general feels well. He notes that his leg does feel significantly better. He is extremely compliant with offloading. He now presents for routine follow-up. Physical Exam Vital Signs: Vital Signs: Last Vital Signs Temp 97.7 F 02/01/21 07:21 Pulse 69 02/01/21 07:21 Resp 18 02/01/21 07:21 BP 153/65 H 02/01/21 07:21 Pulse Ox 97 02/01/21 10:10 Body Mass Index 31.4 Const: General: cooperative, healthy appearing and no acute distress Orientation/consciousness: oriented to person, oriented to place and oriented to time HENMT: Head: Yes normal to inspection Neck: Carotids: no bruits Chest: Chest palpation & inspection: normal inspection of the chest Resp: Effort & Inspection: normal respiratory effort and able to speak in complete sentences Auscultation: clear to auscultation bilaterally Cardio: Rate: regular rate Heart sounds: S1 normal heart sound present and S2 normal heart sound present GI: Inspection: Yes normal to inspection Skin: General skin exam: no rashes or lesions noted Wounds: wounds noted (Left foot dressing clean dry intact) Neuro: General: oriented to person, oriented to place, oriented to time and CN's II-XI intact bilaterally Extrem: General: Yes normal to inspection, Yes full ROM and Yes no clubbing, cyanosis or edema Psych: Appearance: grossly normal and well kempt Speech and movement: Normal speech and movement present Affect: normal affect Progress Note: A&P Assessment and plan (1) PVD (peripheral vascular disease): Status: Acute Assessment and Plan: Patient has undergone successful angioplasty of left posterior tibial artery. He has undergone toe amputation. He appears to be doing relatively well. Patient will need to be maintained on Eliquis an aspirin upon discharge. He will follow up with us approximately 2 weeks after discharge. Continue local wound care and postop care per Dr. Tana monreal. Thank you for allowing us to assist in this patient's care. If there are any questions or concerns please do not hesitate to contact us. Fall Risk Details Current Medications: Current Medications Generic Name Dose Route Start Last Admin Trade Name Freq PRN Reason Stop Dose Admin Acetaminophen 650 mg 01/23/21 21:21 Acetaminophen 325 Mg Tablet PO Q6H PRN Pain, Mild (Pain Scale 1-3) Acetaminophen 650 mg 01/31/21 10:10 Acetaminophen 325 Mg Tablet PO ONCE PRN Pain, Mild (Pain Scale 1-3) Aspirin 81 mg 01/30/21 09:00 02/01/21 10:25 Aspirin 81 Mg Tab.Chew PO 81 mg DAILY [facility] Administration Calamine 1 appl 01/30/21 13:00 01/30/21 13:18 Calamine/Zinc Oxide Lotion 177 Ml Bottle TOPICAL 1 appl ONCE [facility] Administration Protocol Diphenhydramine HCl 25 mg 01/29/21 14:00 02/01/21 10:25 Diphenhydramine Hcl 25 Mg Tablet PO 25 mg Q6H [facility] Administration Enoxaparin Sodium 40 mg 01/29/21 16:00 01/31/21 14:49 Enoxaparin Sodium 40 Mg/0.4 Ml Syringe SUBCUT 40 mg Q24H [facility] Administration Famotidine 20 mg 01/29/21 09:00 02/01/21 10:24 Famotidine 20 Mg Tablet PO 20 mg DAILY [facility] Administration Fentanyl 50 mcg 01/31/21 10:10 Fentanyl Citrate/Pf 100 Mcg/2 Ml Vial IVPUSH Q5M PRN Pain, Severe (Pain Scale 7-10) Vancomycin HCl 1,000 mg/ 270 mls @ 270 mls/hr 01/31/21 15:00 02/01/21 05:31 Sodium Chloride IV Infused Q12H [facility] Infusion Insulin Human Lispro 0 unit 01/23/21 21:21 02/01/21 11:40 Insulin Lispro 100 Unit/Ml 3 Ml Vial SUBCUT 2 unit QIDACHS [facility] Administration Protocol Metoprolol Tartrate 25 mg 01/23/21 21:21 02/01/21 10:24 Metoprolol Tartrate 25 Mg Tablet PO 25 mg BID [facility] Administration Protocol Ondansetron HCl 4 mg 01/31/21 10:10 Ondansetron Hcl 4 Mg/2 Ml Vial IVPUSH ONCE PRN Nausea and Vomiting Oxycodone HCl 5 mg 01/29/21 09:12 Oxycodone Hcl Immed Release 5 Mg Tablet PO Q4H PRN Pain, Moderate (Pain Scale 4-6 Oxycodone HCl 5 mg 01/31/21 10:10 Oxycodone Hcl Immed Release 5 Mg Tablet PO ONCE PRN Pain, Severe (Pain Scale 7-10) Pharmacy Consult 1 each 01/31/21 14:31 Consult Rx Vancomycin Dosing MISCELLANE DAILY PRN Consult order Sodium Chloride 3 ml 01/24/21 00:00 02/01/21 07:49 0.9 % Sodium Chloride Flush 3 Ml Syringe IVFLUSH 3 ml QSHIFT [facility] Administration Vitamin D 25 mcg 01/24/21 09:00 02/01/21 10:25 Cholecalciferol (Vitamin D3) 25 Mcg Tablet PO 25 mcg DAILY [facility] Administration Time Spent With Patient Time: Total time spent is greater than 50% in coordination of care (as documented) at patient's floor/unit and/or counseling patient: Time with patient: 15 - 24 minutes
--- NOTE | 2021-02-01 13:16 | HO.PM.IMPN ---
Subjective Subjective Date of Service: 02/01/21 Interval History: Patient offers no acute complaints resting comfortably in bed, denies itching no foot pain, no fever chills. ROS General no headache, no dizziness ,no fever chills. CVS no chest pain, no palpitation. Respiratory no cough, no sob Gastrointestinal no nausea, no vomiting, no abdominal pain, diarrhea resolved . Physical Exam Vital Signs: Vital Signs: Last Vital Signs Temp 97.7 F 02/01/21 07:21 Pulse 69 02/01/21 07:21 Resp 18 02/01/21 07:21 BP 153/65 H 02/01/21 07:21 Pulse Ox 97 02/01/21 10:10 Body Mass Index 31.4 General - no acute distress, resting comfortably in bed Cardiovascular - regular rate and rhythm, S1-S2 Lungs - normal respiratory effort, clear to auscultation bilaterally, no wheezing Abdomen - soft, nontender, no rebound or guarding Extremities -dressing in place left foot, no drainage, hyperemia dorsum of foot worse related to rash Neuro - awake and alert, no focal deficits. Skin diffuse morbilliform hyperemic rash on back, upper trunk, inside of both thighs and leg and upper extremities, gradually improving with less redness. Objective Data Current Medications Generic Name Dose Route Start Last Admin Trade Name Freq PRN Reason Stop Dose Admin Acetaminophen 650 mg 01/23/21 21:21 Acetaminophen 325 Mg Tablet PO Q6H PRN Pain, Mild (Pain Scale 1-3) Acetaminophen 650 mg 01/31/21 10:10 Acetaminophen 325 Mg Tablet PO ONCE PRN Pain, Mild (Pain Scale 1-3) Aspirin 81 mg 01/30/21 09:00 02/01/21 10:25 Aspirin 81 Mg Tab.Chew PO 81 mg DAILY [facility] Administration Calamine 1 appl 01/30/21 13:00 01/30/21 13:18 Calamine/Zinc Oxide Lotion 177 Ml Bottle TOPICAL 1 appl ONCE [facility] Administration Protocol Diphenhydramine HCl 25 mg 01/29/21 14:00 02/01/21 10:25 Diphenhydramine Hcl 25 Mg Tablet PO 25 mg Q6H [facility] Administration Enoxaparin Sodium 40 mg 01/29/21 16:00 01/31/21 14:49 Enoxaparin Sodium 40 Mg/0.4 Ml Syringe SUBCUT 40 mg Q24H [facility] Administration Famotidine 20 mg 01/29/21 09:00 02/01/21 10:24 Famotidine 20 Mg Tablet PO 20 mg DAILY [facility] Administration Fentanyl 50 mcg 01/31/21 10:10 Fentanyl Citrate/Pf 100 Mcg/2 Ml Vial IVPUSH Q5M PRN Pain, Severe (Pain Scale 7-10) Vancomycin HCl 1,000 mg/ 270 mls @ 270 mls/hr 01/31/21 15:00 02/01/21 05:31 Sodium Chloride IV Infused Q12H [facility] Infusion Insulin Human Lispro 0 unit 01/23/21 21:21 02/01/21 11:40 Insulin Lispro 100 Unit/Ml 3 Ml Vial SUBCUT 2 unit QIDACHS [facility] Administration Protocol Metoprolol Tartrate 25 mg 01/23/21 21:21 02/01/21 10:24 Metoprolol Tartrate 25 Mg Tablet PO 25 mg BID [facility] Administration Protocol Ondansetron HCl 4 mg 01/31/21 10:10 Ondansetron Hcl 4 Mg/2 Ml Vial IVPUSH ONCE PRN Nausea and Vomiting Oxycodone HCl 5 mg 01/29/21 09:12 Oxycodone Hcl Immed Release 5 Mg Tablet PO Q4H PRN Pain, Moderate (Pain Scale 4-6 Oxycodone HCl 5 mg 01/31/21 10:10 Oxycodone Hcl Immed Release 5 Mg Tablet PO ONCE PRN Pain, Severe (Pain Scale 7-10) Pharmacy Consult 1 each 01/31/21 14:31 Consult Rx Vancomycin Dosing MISCELLANE DAILY PRN Consult order Sodium Chloride 3 ml 01/24/21 00:00 02/01/21 07:49 0.9 % Sodium Chloride Flush 3 Ml Syringe IVFLUSH 3 ml QSHIFT [facility] Administration Vitamin D 25 mcg 01/24/21 09:00 02/01/21 10:25 Cholecalciferol (Vitamin D3) 25 Mcg Tablet PO 25 mcg DAILY [facility] Administration Labs CBC & Chem 7: 01/30/21 05:59 01/30/21 05:59 Microbiology Microbiology Results: Microbiology 01/23/21 11:40 Blood - Venous Blood Culture - Final No growth after 5 days. 01/23/21 11:08 Blood - Venous Blood Culture - Final No growth after 5 days. Assessment and Plan (1) Osteomyelitis: Problem details: Group B strep osteomyelitis great toe He has had prior osteomyelitis left second toe He lists allergy to PCN but has tolerated short term Piperacillin/Tazobactam,semi-synthetic May develop allergy to Merepenem Status: Acute (2) Amputation of toe of left foot: Problem details: Performed for treatment of nonhealing ulcer tip of left 2nd toe with associated osteomyelitis of distal phalanx. He is doing well. Status: Acute (3) Rash of body: Status: Acute (4) PVD (peripheral vascular disease): Status: Acute (5) Pre-diabetes: Problem details: no medications at this time Status: Acute (6) Cellulitis of foot: Status: Acute (7) Ulcer of great toe: Status: Acute Assessment and Plan: 71 M being followed in the Gen Surg clinic and admitted from there for worsening ulcer / cellulitis and concern for osteo 1. L first toe Ulcer / cellulitis dorsum of foot/MRI 01/24 compatible with osteomyelitis of the left big toe, patient underwent left toe amputation 01/[address] Wylie, he recommend to resume Eliquis tomorrow, continue dry sterile dressing, will recommend patient to walk on heel will plan discharge on Thursday On iv vancomycin day 10 will discuss duration of antibiotic with ID since patient is status post amputation patient underwent angiogram and had a successful plasty of posterior tibial artery by Dr. Rodriguez,on 01/29 2. Diabetes Mellitis Blood sugar remains less than 200, previously was in the pre-diabetic range per patient report. Previous records indicate A1C as high as 6.9, A1c now 6.8 Pt. prefers not to start any diabetic meds upon d/c. States he will be seeing his PCP (Dr. Medrano) upon discharge and will decide upon discussing treatment with him. Blood sugar currently 150-200 range continue insulin sliding scale and diabetic diet. 3. PAF Continue Lopressor ,stable blood pressure and pulse, will resume Eliquis tomorrow as per General surgery condition 4. Drug rash likely related to Zosyn with prior history of rash to penicillin, cont. Benadryl scheduled, calamine and Pepcid, rash is improving. 5.Diarrhea question related to antibiotics , resolved, stool not sent for C diff follow clinical course. Full Code DVT, pptx Will resume Eliquis tomorrow, continue Lovenox.
--- NOTE | 2021-02-01 13:33 | MHC.CM.PN ---
NURSE CARE MANGER NOTE ELECTRONIC MEDICAL RECORD REVIEWED ALONG WITH CASE DISCUSSED WITH STAFF NURSE AND ON MULTIPLE DISCIPLINARY ROUNDS. MET WITH PATIENT , EXPRESSED THAT HE WAS GLAD HE WAS ABLE TO HAVE THE SURGERY SOONER THAN LATER DISCHARGE PLAN HOME ?THURSDAY WILL NEED NURSING AND HOME PHYSICAL THEAPRY THROUGH THE [facility] ER AND STILL HOPES TP BE ABLE TO GO HOME AND NOT NEED IV ABX, UPDATE SENT TO THE [facility] FOR NURSING WOUND CARE AND HOME PHYSICAL THEAPRY . ANTICIPATE D/C ON THURSDAY
--- NOTE | 2021-02-01 13:47 | P.PNGS_ITS ---
Subjective Subjective Date of Service: 02/01/21 Interval history: States he is comfortable Denies significant pain on the amputation site No complaints Physical Exam Vital Signs: Vital Signs: Last Vital Signs Temp 97.7 F 02/01/21 07:21 Pulse 69 02/01/21 07:21 Resp 18 02/01/21 07:21 BP 153/65 H 02/01/21 07:21 Pulse Ox 97 02/01/21 10:10 Body Mass Index 31.4 Laboratory Results - last 24 hr 01/31/21 01/31/21 02/01/21 16:17 20:16 07:20 POC Glucose 184 H 131 H 131 H 02/01/21 11:32 POC Glucose 151 H Const: General: comfortable and no acute distress Resp: Effort & Inspection: normal respiratory effort Cardio: Rhythm: abnormal rhythm Extrem: Other: Left big toe amputation site clean, sutures intact, skin viable with no gangrene, some redness, no tension, no discharge Progress Note: A&P Assessment and plan (1) Osteomyelitis: Problem details: Group B strep osteomyelitis great toe He has had prior osteomyelitis left second toe He lists allergy to PCN but has tolerated short term Piperacillin/Tazobactam,semi-synthetic May develop allergy to Merepenem Status: Acute Assessment and Plan: Status post big toe amputation left Amputation site clean, sutures intact I changed dressings with dry gauze, wrapped the foot in Kerlix Continue dry dressings daily I have instructed the patient to not bear weight on the forefoot If discharged home this weekend, will see in the office for follow-up visit He may need a visiting nurse to do dressing changes at home Fall Risk Details Current Medications: Current Medications Generic Name Dose Route Start Last Admin Trade Name Freq PRN Reason Stop Dose Admin Acetaminophen 650 mg 01/23/21 21:21 Acetaminophen 325 Mg Tablet PO Q6H PRN Pain, Mild (Pain Scale 1-3) Acetaminophen 650 mg 01/31/21 10:10 Acetaminophen 325 Mg Tablet PO ONCE PRN Pain, Mild (Pain Scale 1-3) Aspirin 81 mg 01/30/21 09:00 02/01/21 10:25 Aspirin 81 Mg Tab.Chew PO 81 mg DAILY [facility] Administration Calamine 1 appl 01/30/21 13:00 01/30/21 13:18 Calamine/Zinc Oxide Lotion 177 Ml Bottle TOPICAL 1 appl ONCE [facility] Administration Protocol Diphenhydramine HCl 25 mg 01/29/21 14:00 02/01/21 10:25 Diphenhydramine Hcl 25 Mg Tablet PO 25 mg Q6H [facility] Administration Enoxaparin Sodium 40 mg 01/29/21 16:00 01/31/21 14:49 Enoxaparin Sodium 40 Mg/0.4 Ml Syringe SUBCUT 40 mg Q24H [facility] Administration Famotidine 20 mg 01/29/21 09:00 02/01/21 10:24 Famotidine 20 Mg Tablet PO 20 mg DAILY [facility] Administration Fentanyl 50 mcg 01/31/21 10:10 Fentanyl Citrate/Pf 100 Mcg/2 Ml Vial IVPUSH Q5M PRN Pain, Severe (Pain Scale 7-10) Vancomycin HCl 1,000 mg/ 270 mls @ 270 mls/hr 01/31/21 15:00 02/01/21 05:31 Sodium Chloride IV Infused Q12H [facility] Infusion Insulin Human Lispro 0 unit 01/23/21 21:21 02/01/21 11:40 Insulin Lispro 100 Unit/Ml 3 Ml Vial SUBCUT 2 unit QIDACHS [facility] Administration Protocol Metoprolol Tartrate 25 mg 01/23/21 21:21 02/01/21 10:24 Metoprolol Tartrate 25 Mg Tablet PO 25 mg BID [facility] Administration Protocol Ondansetron HCl 4 mg 01/31/21 10:10 Ondansetron Hcl 4 Mg/2 Ml Vial IVPUSH ONCE PRN Nausea and Vomiting Oxycodone HCl 5 mg 01/29/21 09:12 Oxycodone Hcl Immed Release 5 Mg Tablet PO Q4H PRN Pain, Moderate (Pain Scale 4-6 Oxycodone HCl 5 mg 01/31/21 10:10 Oxycodone Hcl Immed Release 5 Mg Tablet PO ONCE PRN Pain, Severe (Pain Scale 7-10) Pharmacy Consult 1 each 01/31/21 14:31 Consult Rx Vancomycin Dosing MISCELLANE DAILY PRN Consult order Sodium Chloride 3 ml 01/24/21 00:00 02/01/21 07:49 0.9 % Sodium Chloride Flush 3 Ml Syringe IVFLUSH 3 ml QSHIFT [facility] Administration Vitamin D 25 mcg 01/24/21 09:00 02/01/21 10:25 Cholecalciferol (Vitamin D3) 25 Mcg Tablet PO 25 mcg DAILY [facility] Administration Time Spent With Patient Time: Total time spent is greater than 50% in coordination of care (as document ed) at patient's floor/unit and/or counseling patient: Time with patient: 15 - 24 minutes
[2021-02-01] MEDS: Enoxaparin Sodium 40 MG/0.4 ML SYRINGE SUBCUT (15:10)
[2021-02-01 16:34] LABS: Glucose, Whole Blood 139 mg/dL (60-115)
[2021-02-01 20:48] LABS: Glucose, Whole Blood 175 mg/dL (60-115)
[2021-02-01 21:16] VITALS: BP 145/66; PULSE 84; RESP 20; TEMP 36.3; O2SAT 98
[2021-02-01 21:20] VITALS: BP 145/66; PULSE 84
[2021-02-02] VITALS (7 sets, daily range): BP systolic 110–150; BP diastolic 49–77; PULSE 75–93; RESP 18–20; TEMP 35.9–36.3; O2SAT 97–99
[2021-02-02 03:10] LABS: Vancomycin Trough 9.8 mcg/mL (10.0-20.0)
[2021-02-02] MEDS: diphenhydrAMINE HCL 25 MG TABLET PO ×4 (03:25→21:01)
[2021-02-02 07:23] LABS: Anion Gap 13 (12-20); Blood Urea Nitrogen 21 mg/dL (9-16); Calcium 8.8 mg/dL (8.4-10.2); Carbon Dioxide 25 mmol/L (22-29); Chloride 105 mmol/L (96-108); Creatinine Clr Calc Pharmacy 101.2; Estimated Glomerular Filt Rate > 60; Glucose Random 157 mg/dL (60-115); Potassium 3.9 mmol/L (3.3-5.1); Sodium 139 mmol/L (135-145)
[2021-02-02 08:18] LABS: Glucose, Whole Blood 166 mg/dL (60-115)
[2021-02-02] MEDS: 0.9 % Sodium Chloride Flush 3 ML SYRINGE IVFLUSH ×2 (09:42→17:30)
[2021-02-02] MEDS: Aspirin 81 MG TAB.CHEW PO (09:42)
[2021-02-02] MEDS: Metoprolol Tartrate 25 MG TABLET PO ×2 (09:42→21:01)
[2021-02-02] MEDS: Cholecalciferol (Vitamin D3) 25 MCG TABLET PO (09:42)
[2021-02-02] MEDS: Famotidine 20 MG TABLET PO (09:42)
[2021-02-02] MEDS: Insulin Lispro 100 UNIT/ML 3 ML VIAL SUBCUT ×2 (09:43→17:30)
--- NOTE | 2021-02-02 12:01 | HO.PM.IMPN ---
Subjective Subjective Date of Service: 02/02/21 Interval History: Patient feels warm, no headaches no fevers no other acute complaints, wants to rest today , is willing to be out of bed and ambulate. ROS General no headache, no dizziness ,no fever chills. CVS no chest pain, no palpitation. Respiratory no cough, no sob Gastrointestinal no nausea, no vomiting, no abdominal pain, no recurrent diarrhea . Physical Exam Vital Signs: Vital Signs: Last Vital Signs Temp 97.4 F 02/02/21 08:00 Pulse 88 02/02/21 08:00 Resp 18 02/02/21 08:00 BP 150/77 H 02/02/21 08:00 Pulse Ox 97 02/02/21 08:00 Body Mass Index 31.4 General - no acute distress, resting comfortably in bed Cardiovascular - regular rate and rhythm, S1-S2 Lungs - normal respiratory effort, clear to auscultation bilaterally, no wheezing Abdomen - soft, nontender, no rebound or guarding Extremities -dressing in place left foot, no drainage left lower extremity edema resolved Neuro - awake and alert, no focal deficits. Skin diffuse morbilliform hyperemic rash on back, upper trunk, inside of both thighs and leg and upper extremities, redness lower extremity improved but persist on face and upper body. Objective Data Current Medications Generic Name Dose Route Start Last Admin Trade Name Yoandyq PRN Reason Stop Dose Admin Acetaminophen 650 mg 01/23/21 21:21 Acetaminophen 325 Mg Tablet PO Q6H PRN Pain, Mild (Pain Scale 1-3) Acetaminophen 650 mg 01/31/21 10:10 Acetaminophen 325 Mg Tablet PO ONCE PRN Pain, Mild (Pain Scale 1-3) Apixaban 5 mg 02/02/21 21:00 Apixaban 5 Mg Tablet PO BID [facility] Aspirin 81 mg 01/30/21 09:00 02/02/21 09:42 Aspirin 81 Mg Tab.Chew PO 81 mg DAILY [facility] Administration Calamine 1 appl 01/30/21 13:00 01/30/21 13:18 Calamine/Zinc Oxide Lotion 177 Ml Bottle TOPICAL 1 appl ONCE [facility] Administration Protocol Diphenhydramine HCl 25 mg 01/29/21 14:00 02/02/21 09:42 Diphenhydramine Hcl 25 Mg Tablet PO 25 mg Q6H [facility] Administration Doxycycline Hyclate 100 mg 02/01/21 16:00 02/02/21 03:25 Doxycycline Hyclate 100 Mg Tablet PO 100 mg Q12H [facility] Administration Famotidine 20 mg 01/29/21 09:00 02/02/21 09:42 Famotidine 20 Mg Tablet PO 20 mg DAILY [facility] Administration Insulin Human Lispro 0 unit 01/23/21 21:21 02/02/21 09:43 Insulin Lispro 100 Unit/Ml 3 Ml Vial SUBCUT 2 unit QIDACHS [facility] Administration Protocol Metoprolol Tartrate 25 mg 01/23/21 21:21 02/02/21 09:42 Metoprolol Tartrate 25 Mg Tablet PO 25 mg BID [facility] Administration Protocol Ondansetron HCl 4 mg 01/31/21 10:10 Ondansetron Hcl 4 Mg/2 Ml Vial IVPUSH ONCE PRN Nausea and Vomiting Oxycodone HCl 5 mg 01/29/21 09:12 Oxycodone Hcl Immed Release 5 Mg Tablet PO Q4H PRN Pain, Moderate (Pain Scale 4-6 Oxycodone HCl 5 mg 01/31/21 10:10 Oxycodone Hcl Immed Release 5 Mg Tablet PO ONCE PRN Pain, Severe (Pain Scale 7-10) Pharmacy Consult 1 each 01/31/21 14:31 Consult Rx Vancomycin Dosing MISCELLANE DAILY PRN Consult order Sodium Chloride 3 ml 01/24/21 00:00 02/02/21 09:42 0.9 % Sodium Chloride Flush 3 Ml Syringe IVFLUSH 3 ml QSHIFT [facility] Administration Vitamin D 25 mcg 01/24/21 09:00 02/02/21 09:42 Cholecalciferol (Vitamin D3) 25 Mcg Tablet PO 25 mcg DAILY [facility] Administration Labs CBC & Chem 7: 01/30/21 05:59 02/02/21 06:23 Microbiology Microbiology Results: Microbiology 01/23/21 11:40 Blood - Venous Blood Culture - Final No growth after 5 days. 01/23/21 11:08 Blood - Venous Blood Culture - Final No growth after 5 days. Assessment and Plan (1) Cellulitis of foot: Status: Acute (2) Osteomyelitis: Problem details: Group B strep osteomyelitis great toe He has had prior osteomyelitis left second toe He lists allergy to PCN but has tolerated short term Piperacillin/Tazobactam,semi-synthetic May develop allergy to Merepenem Status: Acute (3) Rash of body: Status: Acute (4) PVD (peripheral vascular disease): Status: Acute (5) Pre-diabetes: Problem details: no medications at this time Status: Acute (6) Ulcer of great toe: Status: Acute (7) Amputation of toe of left foot: Problem details: Performed for treatment of nonhealing ulcer tip of left 2nd toe with associated osteomyelitis of distal phalanx. He is doing well. Status: Acute Assessment and Plan: 71 M being followed in the Gen Surg clinic and admitted from there for worsening ulcer / cellulitis and concern for osteo 1. L first toe Ulcer / cellulitis dorsum of foot/MRI 01/24 compatible with osteomyelitis of the left big toe, patient underwent left toe amputation 01/[address] Wylie, continue dry sterile dressing, will recommend patient to walk on heel will plan discharge on Thursday, resume Eliquis today and DC Lovenox s/p iv vancomycin for 10 days id recommend doxycycline and Augmentin since patient allergic to penicillin will hold Augmentin give doxycycline and will further care discuss case with ID patient underwent angiogram and had a successful plasty of posterior tibial artery by Dr. Rodriguez,on 01/29 2. Diabetes Mellitis Blood sugar remains less than 200, previously was in the pre-diabetic range per patient report. Previous records indicate A1C as high as 6.9, A1c now 6.8 Pt. prefers not to start any diabetic meds upon d/c. States he will be seeing his PCP (Dr. Medrano) upon discharge and will decide upon discussing treatment with him. Blood sugar currently 150-200 range continue insulin sliding scale and diabetic diet. 3. PAF Continue Lopressor ,stable blood pressure and pulse, resume Eliquis today okay with General surgery 4. Drug rash likely related to Zosyn with prior history of rash to penicillin, cont. Benadryl scheduled, calamine and Pepcid, rash is improving slowly. 5.Diarrhea question related to antibiotics , resolved, no recurrent diarrhea Full Code DVT, pptx Will resume Eliquis dc Lovenox.
[2021-02-02 12:03] LABS: Glucose, Whole Blood 140 mg/dL (60-115)
[2021-02-02] MEDS: Apixaban 5 MG TABLET PO (13:51)
[2021-02-02 16:39] LABS: Glucose, Whole Blood 155 mg/dL (60-115)
--- NOTE | 2021-02-02 17:22 | PM.PNGS ---
Subjective Subjective Date of Service: 02/02/21 Interval history: No new complaints. He reports no difficulty with pain at the left great toe amputation site. He hopes to be able to go home tomorrow. He reports that he has been out of bed. Physical Exam Vital Signs: Vital Signs: Last Vital Signs Temp 97 F 02/02/21 15:57 Pulse 78 02/02/21 15:57 Resp 20 02/02/21 15:57 BP 129/67 02/02/21 15:57 Pulse Ox 99 02/02/21 15:57 Body Mass Index 31.4 Const: General: cooperative, no acute distress and alert Extrem: Other: The left great toe amputation site is clean. The skin appears mildly hyperemic. There is no active drainage. No significant edema. Slight bloody staining was present on the dressing. Progress Note: A&P Assessment and plan (1) Ulcer of great toe: Status: Acute Assessment and Plan: Now day 2 post amputation of left 1st toe. Amputation site is clean. Continue daily dressing changes. Will need VNA on discharge. Also requires offloading shoe for left foot. Will order. Fall Risk Details Current Medications: Current Medications Generic Name Dose Route Start Last Admin Trade Name Freq PRN Reason Stop Dose Admin Acetaminophen 650 mg 01/23/21 21:21 Acetaminophen 325 Mg Tablet PO Q6H PRN Pain, Mild (Pain Scale 1-3) Acetaminophen 650 mg 01/31/21 10:10 Acetaminophen 325 Mg Tablet PO ONCE PRN Pain, Mild (Pain Scale 1-3) Apixaban 5 mg 02/02/21 12:00 02/02/21 13:51 Apixaban 5 Mg Tablet PO 5 mg Q12H [facility] Administration Aspirin 81 mg 01/30/21 09:00 02/02/21 09:42 Aspirin 81 Mg Tab.Chew PO 81 mg DAILY [facility] Administration Calamine 1 appl 01/30/21 13:00 01/30/21 13:18 Calamine/Zinc Oxide Lotion 177 Ml Bottle TOPICAL 1 appl ONCE [facility] Administration Protocol Diphenhydramine HCl 25 mg 01/29/21 14:00 02/02/21 13:51 Diphenhydramine Hcl 25 Mg Tablet PO 25 mg Q6H [facility] Administration Doxycycline Hyclate 100 mg 02/01/21 16:00 02/02/21 03:25 Doxycycline Hyclate 100 Mg Tablet PO 100 mg Q12H [facility] Administration Famotidine 20 mg 01/29/21 09:00 02/02/21 09:42 Famotidine 20 Mg Tablet PO 20 mg DAILY [facility] Administration Insulin Human Lispro 0 unit 01/23/21 21:21 02/02/21 13:00 Insulin Lispro 100 Unit/Ml 3 Ml Vial SUBCUT Not Given QIDACHS [facility] Protocol Metoprolol Tartrate 25 mg 01/23/21 21:21 02/02/21 09:42 Metoprolol Tartrate 25 Mg Tablet PO 25 mg BID [facility] Administration Protocol Ondansetron HCl 4 mg 01/31/21 10:10 Ondansetron Hcl 4 Mg/2 Ml Vial IVPUSH ONCE PRN Nausea and Vomiting Oxycodone HCl 5 mg 01/29/21 09:12 Oxycodone Hcl Immed Release 5 Mg Tablet PO Q4H PRN Pain, Moderate (Pain Scale 4-6 Oxycodone HCl 5 mg 01/31/21 10:10 Oxycodone Hcl Immed Release 5 Mg Tablet PO ONCE PRN Pain, Severe (Pain Scale 7-10) Pharmacy Consult 1 each 01/31/21 14:31 Consult Rx Vancomycin Dosing MISCELLANE DAILY PRN Consult order Sodium Chloride 3 ml 01/24/21 00:00 02/02/21 09:42 0.9 % Sodium Chloride Flush 3 Ml Syringe IVFLUSH 3 ml QSHIFT [facility] Administration Vitamin D 25 mcg 01/24/21 09:00 02/02/21 09:42 Cholecalciferol (Vitamin D3) 25 Mcg Tablet PO 25 mcg DAILY [facility] Administration Time Spent With Patient Time: Total time spent is greater than 50% in coordination of care (as documented) at patient's floor/unit and/or counseling patient: Time with patient: less than 15 minutes
[2021-02-02 20:45] LABS: Glucose, Whole Blood 150 mg/dL (60-115)
[2021-02-03] MEDS: Apixaban 5 MG TABLET PO (00:38)
[2021-02-03] MEDS: diphenhydrAMINE HCL 25 MG TABLET PO (03:40)
[2021-02-03 07:28] VITALS: BP 151/67; PULSE 84; RESP 18; TEMP 36.3; O2SAT 98
[2021-02-03 07:47] LABS: Glucose, Whole Blood 142 mg/dL (60-115)
[2021-02-03 08:46] VITALS: BP 151/67; PULSE 84
[2021-02-03] MEDS: Aspirin 81 MG TAB.CHEW PO (08:46)
[2021-02-03] MEDS: Cholecalciferol (Vitamin D3) 25 MCG TABLET PO (08:46)
[2021-02-03] MEDS: Metoprolol Tartrate 25 MG TABLET PO (08:46)
[2021-02-03] MEDS: Famotidine 20 MG TABLET PO (08:47)
--- NOTE | 2021-02-03 09:16 | MHC.CM.PN ---
PATIENT IS DISCHARGED HOME WITH RESUMPTION OF HIS [facility] SERVICES. PATIENT IS ON PO ABX. RN AWARE OF PLAN. IMM 02/03 IN CHART
[2021-02-03 10:00] VITALS: O2SAT 98
--- NOTE | 2021-02-03 10:04 | P.F2F_ITS ---
Service Date Service Date: 02/03/21 Encounter Date of encounter: 02/03/21 Encounter: Pt. is s/p amputation of left first toe. Incision is well approximated. Has small amount of blood-tinged drainage. Slight hyperemia around operative site. Needs daily dressing changes: cleanse incision line wiht NS, cover with non-woven gauze and bulky DSD, light non-compressive cortes wrap. Ambulate with forefoot off-loading shoe. Reasons for Services Reason for half-way: wound care and postoperative assessment and/or care MD Overseeing Care: Ramin Wylie Homebound: Leaving the home is medically contraindicated at this time without the asist of a device and/or another person due th the listed conditions above and below. Reason homebound: unsteady gait / fall risk and weakness related to hospital stay Homebound supporting statement: Weak and unsteady due to disease state, recent left first toe amputation. Certification: Based on the above findings, I certify that this patient is confined to the home and needs intermittent half-way care, physical therapy and/or speech therapy, or continues to need occupational therapy. The patient is under my care, and I have initiated the establishment of the plan of care. The patient will be followed by a physician who will periodically review the plan of care.
--- NOTE | 2021-02-03 10:30 | MHC.INPTTRAN ---
Pt post op day 3 from amputation of L great toe. Dressing changed last 02/03/21. Dressing change orders are to cleanse incision with NS, cover with nonwoven gauze and bulky dressing, light cortes wrap (no compression). Pt should be ambulating using off-loading shoe for L forefoot. Pt alert and oriented, vital signs stable.
--- NOTE | 2021-02-03 11:01 | PM.PNGS ---
Subjective Subjective Date of Service: 02/03/21 Interval history: No complaints. He has received his offloading shoe. He reports that he will be discharged later today. Physical Exam Vital Signs: Vital Signs: Last Vital Signs Temp 97.4 F 02/03/21 07:28 Pulse 84 02/03/21 08:46 Resp 18 02/03/21 07:28 BP 151/67 H 02/03/21 08:46 Pulse Ox 98 02/03/21 10:00 Body Mass Index 31.4 Const: Other: Alert, appears comfortable Extrem: Other: The left foot is warm. The left 1st toe amputation site remains clean and well approximated. There is no active drainage. Slight serosanguineous staining on dressing. The skin adjacent to the amputation site appears less hyperemic. Progress Note: A&P Assessment and plan (1) Ulcer of great toe: Status: Acute Assessment and Plan: Day 3 status post amputation of left great toe for persistent ulcer and osteomyelitis. The wound is clean. He is surgically stable for discharge. He will be followed by the VNA and should follow up with Dr. Wylie in about 10-14 days. Fall Risk Details Current Medications: Current Medications Generic Name Dose Route Start Last Admin Trade Name Freq PRN Reason Stop Dose Admin Acetaminophen 650 mg 01/23/21 21:21 Acetaminophen 325 Mg Tablet PO Q6H PRN Pain, Mild (Pain Scale 1-3) Acetaminophen 650 mg 01/31/21 10:10 Acetaminophen 325 Mg Tablet PO ONCE PRN Pain, Mild (Pain Scale 1-3) Apixaban 5 mg 02/02/21 12:00 02/03/21 00:38 Apixaban 5 Mg Tablet PO 5 mg Q12H [facility] Administration Aspirin 81 mg 01/30/21 09:00 02/03/21 08:46 Aspirin 81 Mg Tab.Chew PO 81 mg DAILY [facility] Administration Calamine 1 appl 01/30/21 13:00 01/30/21 13:18 Calamine/Zinc Oxide Lotion 177 Ml Bottle TOPICAL 1 appl ONCE [facility] Administration Protocol Diphenhydramine HCl 25 mg 01/29/21 14:00 02/03/21 08:49 Diphenhydramine Hcl 25 Mg Tablet PO Not Given Q6H [facility] Doxycycline Hyclate 100 mg 02/01/21 16:00 02/03/21 03:41 Doxycycline Hyclate 100 Mg Tablet PO 100 mg Q12H [facility] Administration Famotidine 20 mg 01/29/21 09:00 02/03/21 08:47 Famotidine 20 Mg Tablet PO 20 mg DAILY [facility] Administration Insulin Human Lispro 0 unit 01/23/21 21:21 02/03/21 07:57 Insulin Lispro 100 Unit/Ml 3 Ml Vial SUBCUT Not Given QIDACHS [facility] Protocol Metoprolol Tartrate 25 mg 01/23/21 21:21 02/03/21 08:46 Metoprolol Tartrate 25 Mg Tablet PO 25 mg BID [facility] Administration Protocol Ondansetron HCl 4 mg 01/31/21 10:10 Ondansetron Hcl 4 Mg/2 Ml Vial IVPUSH ONCE PRN Nausea and Vomiting Oxycodone HCl 5 mg 01/31/21 10:10 Oxycodone Hcl Immed Release 5 Mg Tablet PO ONCE PRN Pain, Severe (Pain Scale 7-10) Pharmacy Consult 1 each 01/31/21 14:31 Consult Rx Vancomycin Dosing MISCELLANE DAILY PRN Consult order Sodium Chloride 3 ml 01/24/21 00:00 02/03/21 08:47 0.9 % Sodium Chloride Flush 3 Ml Syringe IVFLUSH Not Given QSHIFT [facility] Vitamin D 25 mcg 01/24/21 09:00 02/03/21 08:46 Cholecalciferol (Vitamin D3) 25 Mcg Tablet PO 25 mcg DAILY [facility] Administration Time Spent With Patient Time: Total time spent is greater than 50% in coordination of care (as documented) at patient's floor/unit and/or counseling patient: Time with patient: less than 15 minutes
--- NOTE | 2021-02-03 12:04 | P.DS_ITS ---
DS: Providers Provider Date of Service: 02/03/21 Date of admission: 01/23/21 17:05 Primary care physician: Ramin Medrano MD Consults: 01/23/21 15:01 Consult to General Surgery Stat Consulting Provider: Ramin Wylie Reason for consultation: worsening chronic left great toe wound, may need amputation Has provider been notified: Yes 01/24/21 16:37 Consult to Vascular Surgery Routine Consulting Provider: Guillermo Rodriguez Reason for consultation: PAD, needs evaluation prior to possible amputation 01/26/21 09:38 Consult to Infectious Diseases Routine Consulting Provider: Danisha Gomez Reason for consultation: Osteomyelitis of the left big toe. DS: Diagnosis Discharge Diagnosis (1) Ulcer of great toe: Status: Acute DS: Medications Discharge Medications Home Medications: Home Medications Medication Instructions Recorded Confirmed apixaban 5 mg tablet 5 mg PO BID 09/11/20 01/23/21 cholecalciferol (vitamin D3) 25 25 mcg PO DAILY 10/23/20 01/23/21 mcg (1,000 unit) capsule Previous Rx's Medication Instructions Recorded metoprolol tartrate 25 mg tablet 25 mg PO BID 90 Days #180 tab 10/23/20 off loading boot #1 ea 12/27/20 aspirin 81 mg PO DAILY #30 tab 02/03/21 doxycycline hyclate 100 mg PO Q12H 9 Days #18 tab 02/03/21 DS: Summary Hospital Course Hospital Course: History of presenting illness Chief Complaint: left first toe ulcer 71M sent from general surgery office (Dr. Wylie) for left first toe ulcer, suspected OM and cellulitis. he has a previous 2nd toe ampitation and subsequently developed the first toe ulcer. he had been seeing surgery and wound care with dressing changes, mri 01/09 did not show OM. but he has been having significant drainage still. he had debridement in office, but due to cellulitis changes was sent to ED for iv abx, mri, and possible amputation. patient denies fever, chills, sob, chest pain, n/v/d. Hospital course 71 M being followed in the Gen Surgery clinic and admitted from there for worsening ulcer / cellulitis and concern for osteo 1. L first toe Ulcer / cellulitis dorsum of foot/MRI 01/24 compatible with osteomyelitis of the left big toe, patient underwent left toe amputation 01/[address] Wylie, recommend to continue dry sterile dressing, use offloading boot, s/p iv vancomycin for 10 days now being discharged home on doxycycline for 9 more days during hospitalization he underwent angiogram and had a successful plasty of posterior tibial artery by Dr. Rodriguez,on 01/29, recommend outpatient follow-up with Dr. Rodriguez has been recommended to continue Eliquis and aspirin. 2. Diabetes Mellitis Blood sugar remains less than 200, previously was in the pre-diabetic range per patient report. Previous records indicate A1C as high as 6.9, A1c now 6.8 Pt. prefers not to start any diabetic meds upon d/c. States he will be seeing his PCP (Dr. Medrano) upon discharge and will decide upon discussing treatment with him. Blood sugar currently 150-200 range continue insulin sliding scale and diabetic diet. 3. PAF Continue Lopressor and Eliquis 4. Drug rash likely related to Zosyn improving, continue Benadryl and calamine lotion Time Spent with Patient Time attestation: Total time spent providing and/or coordinating discharge services: Discharge coordination time: Greater than 30 minutes Physical Exam Vital Signs: Vital Signs: Last Vital Signs Temp 97.4 F 02/03/21 07:28 Pulse 84 02/03/21 08:46 Resp 18 02/03/21 07:28 BP 151/67 H 02/03/21 08:46 Pulse Ox 98 02/03/21 10:00 Body Mass Index 31.4 General - no acute distress, resting comfortably in bed Cardiovascular - regular rate and rhythm, S1-S2 Lungs - normal respiratory effort, clear to auscultation bilaterally, no wheezi ng Abdomen - soft, nontender, no rebound or guarding Extremities -amputation site clean and well approximated no active drainage noted, left lower extremity edema resolved Neuro - awake and alert, no focal deficits. Skin diffuse morbilliform hyperemic rash on back, upper trunk, inside of both thighs and leg and upper extremities, significantly improved now with mild diffuse hyperemia. DS: Data Data Completed and Pending Completed studies during hospitalization [Text1]: Procedures Detachment at Left 2nd Toe, Low, Open Approach (10/10/20) Pending studies at discharge: Pending at discharge 01/31/21 11:35 Surgical [PTH] Routine Labs on day of discharge: Laboratory Results - last 24 hr 02/02/21 02/02/21 02/02/21 11:37 16:34 20:41 POC Glucose 140 H 155 H 150 H 02/03/21 07:26 POC Glucose 142 H Discharge Plan Discharge Patient Disposition: Home Health Service Referrals: [facility] [Outside] Ramin Medrano MD [Primary Care Provider] - Discharge Medications: New aspirin 81 mg Tablet,Chewable 81 mg PO DAILY Qty: 30 RF: 0 doxycycline hyclate 100 mg Tablet 100 mg PO Q12H 9 Days Qty: 18 RF: 0 Continued metoprolol tartrate 25 mg tablet 25 mg PO BID 90 Days Qty: 180 RF: 3 Eliquis 5 mg tablet 5 mg PO BID RF: 0 Hold Instructions: Resume on 10/12/20. Resume taking your Eliquis on 10/12/2020, after your visit with the visiting nurse. cholecalciferol (vitamin D3) 25 mcg (1,000 unit) capsule 25 mcg PO DAILY RF: 0 (DME) [employer] off loading boot Kit See Rx Instructions .ROUTE .MEDSUPPLY Qty: 1 RF: 0 Discontinued doxycycline monohydrate 100 mg Capsule 100 mg PO DAILY RF: 0 Discharge Orders: Discharge Order (Routine); Ordered 02/03/21 Ordered By: Deisy Yao Diet: diabetic diet Activity on Discharge: As tolerated Stand Alone Forms: Patient Portal Discharge page Care Plan Goals: Continue daily dressing to left big toe and use offloading boot, patient has penicillin allergy that causes rash. Dressing instructions: Cleanse incision line with NS, cover with nonwoven gauze and bulky dsd, light cortes wrap (no compression). Ambulate using off-loading shoe for left forefoot. Health Concerns: Diabetes mellitus follow-up with primary care physician, status post left toe amputation continue daily dressing and follow-up with General surgery/left posterior tibial artery plasty follow-up with Dr. Rodriguez, apply calamine lotion to the rash and use Benadryl as needed for itching Plan of Treatment: Outpatient follow-up with primary care physician, Dr. Rodriguez from vascular surgery and Dr. Wylie from General surgery in next 1-2 Discharge Date/Time: 02/03/21 11:42
== END 2021-02-03 11:42 | disposition home health service (06) | DRG 253 ==
LOC: HO.ED 15:51 → HO.EDOVER 17:49 → HO.S3 20:02
PROVIDERS: Family Medicine; Internal Medicine; Physician Assistant; Surgery; Surgery Vascular Surgery; Admitting Provider Internal Medicine; Emergency Provider Emergency Medicine; PCP Internal Medicine; Visit Provider Hospitalist
PROC: 047S3ZZ Dilation of Left Posterior Tibial Artery, Percutaneous Approach (ICD-10-PCS; principal; 2021-01-29 07:30)
DX: E11.52 Type 2 diabetes mellitus with diabetic peripheral angiopathy with gangrene (principal); M86.172 Other acute osteomyelitis, left ankle and foot; I70.245 Atherosclerosis of native arteries of left leg with ulceration of other part of foot; L03.032 Cellulitis of left toe; E11.621 Type 2 diabetes mellitus with foot ulcer; L97.529 Non-pressure chronic ulcer of other part of left foot with unspecified severity; I48.0 Paroxysmal atrial fibrillation; Z20.822 Contact with and (suspected) exposure to COVID-19; Z88.0 Allergy status to penicillin; Z79.01 Long term (current) use of anticoagulants; Z79.82 Long term (current) use of aspirin; Z79.899 Other long term (current) drug therapy; E11.69 Type 2 diabetes mellitus with other specified complication; B95.1 Streptococcus, group B, as the cause of diseases classified elsewhere
CPT/HCPCS: 11042; 36253; 36415; 73660; 73720; 76937; 80048; 80076; 80202; 81003; 82565; 82947; 83036; 83605; 83735; 85025; 85610; 85652; 85730; 86140; 87040; 87635; 88305; 88311; 93925; 96365; 96366; 96368; 99024; 99152; 99153; 99212; 99284; 99285; A9585; C1725; C1760; C1769; C1887; J0690; J1100; J1200; J1650; J2405; J2543; J2930; J3010; J3370; Q0163; Q9967

== ENCOUNTER 2021-02-18 11:05 | Outpatient (REF) | payer MEDICARE, BC, SELFPAY ==
[2021-02-18 14:11] LABS: MANUAL DIFF FLAG NO
[2021-02-18 14:22] LABS: Basophils Percent Auto 0.6 % (0-2); Eosinophils Absolute Auto 0.2 X10*3/uL (0.0-0.4); Eosinophils Percent Auto 3.1 % (0-4); Hematocrit 36.6 % (42-52); Imm Gran Abs Auto 0.02 X10*3/uL (0.00-0.03); Imm Gran Pct Auto 0.3 % (0.0-0.4); Lymphocytes Absolute Auto 1.4 X10*3/uL (1.2-4.9); Lymphocytes Percent Auto 19.7 % (20-40); Mean Corpuscular HGB Conc 32.8 g/dl (31.0-36.0); Mean Corpuscular Hemoglobin 29.9 pg (27.0-33.0); Mean Platelet Volume 9.7 fL (9.4-12.4); Monocytes Absolute Auto 0.6 X10*3/uL (0.1-1.2); Monocytes Percent Auto 9.1 % (2-11); Neutrophils Absolute Auto 4.7 X10*3/uL (2.0-8.3); Neutrophils Percent Auto 67.2 % (45-73); Platelet Count 393 X10*3/uL (160-400); Red Blood Count 4.02 X10*6/uL (4.60-5.80)
[2021-02-18 14:29] LABS: Estimated Average Glucose 146 mg/dL; Hemoglobin A1c % 6.7 %
[2021-02-18 14:35] LABS: Alanine Aminotransferase 13 U/L (0-40); Alkaline Phosphatase 81 U/L (39-117); Anion Gap 19 (12-20); Aspartate Amino Transferase 15 U/L (5-37); Bilirubin Total 0.5 mg/dL (0.0-1.0); Blood Urea Nitrogen 19 mg/dL (9-16); Calcium 9.3 mg/dL (8.4-10.2); Carbon Dioxide 21 mmol/L (22-29); Chloride 100 mmol/L (96-108); Estimated Glomerular Filt Rate > 60; Glucose Random 182 mg/dL (60-115); Potassium 4.9 mmol/L (3.3-5.1); Sodium 135 mmol/L (135-145); Total Protein 6.9 g/dL (6.5-8.0)
[2021-02-18 14:50] LABS: Vitamin D 25-OH Total 28.7 ng/mL (>30)
== END 2021-02-18 11:06 | disposition home or self-care (01) ==
LOC: HO.10HDL 11:05
PROVIDERS: Visit Provider Internal Medicine
DX: R73.03 Prediabetes (principal); E55.9 Vitamin D deficiency, unspecified; I48.0 Paroxysmal atrial fibrillation
CPT/HCPCS: 36415; 80053; 82306; 83036; 85025

== ENCOUNTER → 2021-03-08 14:24 | Outpatient (BNVA) | payer MEDICARE, BC, SELFPAY | PROVIDERS: PCP Internal Medicine; Referring Provider Internal Medicine; Visit Provider Surgery | DX: Z47.81 Encounter for orthopedic aftercare following surgical amputation (principal); S98.119 Complete traumatic amputation of unspecified great toe | CPT/HCPCS: 99212 ==

== ENCOUNTER → 2021-03-14 10:05 | Outpatient (BNVA) | payer MEDICARE, BC, SELFPAY | PROVIDERS: PCP Internal Medicine; Visit Provider Surgery Vascular Surgery | DX: I73.9 Peripheral vascular disease, unspecified (principal) | CPT/HCPCS: 99212 ==

== ENCOUNTER → 2021-04-03 08:03 | Outpatient (BNVA) | payer MEDICARE, BC, SELFPAY | PROVIDERS: PCP Internal Medicine; Referring Provider Internal Medicine; Visit Provider Surgery | DX: S98.112D Complete traumatic amputation of left great toe, subsequent encounter (principal) | CPT/HCPCS: 99212 ==

== ENCOUNTER → 2021-06-05 08:12 | Outpatient (BNVA) | payer MEDICARE, BC, SELFPAY | PROVIDERS: PCP Internal Medicine; Referring Provider Internal Medicine; Visit Provider Surgery | DX: Z47.81 Encounter for orthopedic aftercare following surgical amputation (principal); Z89.422 Acquired absence of other left toe(s) | CPT/HCPCS: 99212 ==

== ENCOUNTER 2021-06-10 08:33 | Outpatient (REF) | payer MEDICARE, BC, SELFPAY ==
--- NOTE | ~2021-06-10 | US_ITS ---
EXAMINATION: COLOR-FLOW DUPLEX IMAGING OF THE BILATERAL LOWER EXTREMITY ARTERIAL SYSTEM. VELOCITY MEASUREMENTS THROUGHOUT THE FEMORAL ARTERIES WITH ANKLE-BRACHIAL PERIPHERAL ARTERIAL TESTING. Interventional Radiologist: Evangelitsa Hollingsworth M.D., F.S.I.R., F.A.C.R. CLINICAL INFORMATION: This is a 71-year-old male with bilateral peripheral vascular disease. History of amputation of the bilateral toes. RIGHT FEMORAL RUNOFF VELOCITIES: The right common femoral artery measures 103 cm/s and biphasic. The right profunda femoral artery is 77 cm/s and is triphasic. Right proximal superficial femoral artery measures 121 cm/s and triphasic. Mid superficial femoral artery is 111 cm/s and triphasic. Distal right superficial femoral artery measures 83 cm/s and is triphasic. Right popliteal velocity measures 93 cm/s and is triphasic. The posterior tibial artery velocity measures 102 cm/s and was triphasic. The right ankle-brachial index is 1.19. The waveforms were suboptimal for evaluation. LEFT FEMORAL RUNOFF VELOCITIES: The left common femoral artery measures 86 cm/s and triphasic. The left profunda femoral artery is 51 cm/s and is triphasic. Left proximal superficial femoral artery measures 101 cm/s and triphasic. Mid superficial femoral artery is 94 cm/s and triphasic. Distal left superficial femoral artery measures 83 cm/s and is triphasic. Left popliteal velocity measures 86 cm/s and is triphasic. The posterior tibial artery velocity measures 63 cm/s and was monophasic. The left ankle-brachial index is 0.98. The waveforms were suboptimal for evaluation. US/US ASHLEY complete IMPRESSION: 1. Resting peripheral arterial testing without evidence of inflow or outflow disease.
--- NOTE | ~2021-06-10 | US_ITS ---
EXAMINATION: COLOR-FLOW DUPLEX IMAGING OF THE BILATERAL LOWER EXTREMITY ARTERIAL SYSTEM. VELOCITY MEASUREMENTS THROUGHOUT THE FEMORAL ARTERIES WITH ANKLE-BRACHIAL PERIPHERAL ARTERIAL TESTING. Interventional Radiologist: Evangelista Hollingsworth M.D., F.S.I.R., F.A.C.R. CLINICAL INFORMATION: This is a 71-year-old male with bilateral peripheral vascular disease. History of amputation of the bilateral toes. RIGHT FEMORAL RUNOFF VELOCITIES: The right common femoral artery measures 103 cm/s and biphasic. The right profunda femoral artery is 77 cm/s and is triphasic. Right proximal superficial femoral artery measures 121 cm/s and triphasic. Mid superficial femoral artery is 111 cm/s and triphasic. Distal right superficial femoral artery measures 83 cm/s and is triphasic. Right popliteal velocity measures 93 cm/s and is triphasic. The posterior tibial artery velocity measures 102 cm/s and was triphasic. The right ankle-brachial index is 1.19. The waveforms were suboptimal for evaluation. LEFT FEMORAL RUNOFF VELOCITIES: The left common femoral artery measures 86 cm/s and triphasic. The left profunda femoral artery is 51 cm/s and is triphasic. Left proximal superficial femoral artery measures 101 cm/s and triphasic. Mid superficial femoral artery is 94 cm/s and triphasic. Distal left superficial femoral artery measures 83 cm/s and is triphasic. Left popliteal velocity measures 86 cm/s and is triphasic. The posterior tibial artery velocity measures 63 cm/s and was monophasic. The left ankle-brachial index is 0.98. The waveforms were suboptimal for evaluation. US/US arterial duplex LE BI IMPRESSION: 1. Resting peripheral arterial testing without evidence of inflow or outflow disease.
== END 2021-06-10 08:34 | disposition home or self-care (01) ==
LOC: HO.US 08:33
PROVIDERS: Visit Provider Surgery Vascular Surgery
DX: I70.213 Atherosclerosis of native arteries of extremities with intermittent claudication, bilateral legs (principal)
CPT/HCPCS: 93923; 93925

== ENCOUNTER → 2021-06-27 08:59 | Outpatient (BNVA) | payer MEDICARE, BC, SELFPAY | PROVIDERS: PCP Internal Medicine; Referring Provider Internal Medicine; Visit Provider Surgery Vascular Surgery | DX: I73.9 Peripheral vascular disease, unspecified (principal); Z89.412 Acquired absence of left great toe; Z88.1 Allergy status to other antibiotic agents; Z88.0 Allergy status to penicillin | CPT/HCPCS: 99212 ==

== ENCOUNTER 2021-07-09 11:40 | Outpatient (REF) | payer MEDICARE, BC, SELFPAY ==
[2021-07-09 14:00] LABS: MANUAL DIFF FLAG NO
[2021-07-09 14:07] LABS: Basophils Absolute Auto 0.1 X10*3/uL (0.0-0.2); Basophils Percent Auto 0.9 % (0-2); Eosinophils Absolute Auto 0.3 X10*3/uL (0.0-0.4); Eosinophils Percent Auto 3.1 % (0-4); Hematocrit 41.3 % (42-52); Hemoglobin 14.1 g/dl (14.0-18.0); Imm Gran Abs Auto 0.02 X10*3/uL (0.00-0.03); Imm Gran Pct Auto 0.2 % (0.0-0.4); Lymphocytes Absolute Auto 2.1 X10*3/uL (1.2-4.9); Lymphocytes Percent Auto 25.8 % (20-40); Mean Corpuscular HGB Conc 34.1 g/dl (31.0-36.0); Mean Corpuscular Hemoglobin 30.7 pg (27.0-33.0); Mean Platelet Volume 9.6 fL (9.4-12.4); Monocytes Absolute Auto 0.6 X10*3/uL (0.1-1.2); Monocytes Percent Auto 7.6 % (2-11); Neutrophils Absolute Auto 5.1 X10*3/uL (2.0-8.3); Neutrophils Percent Auto 62.4 % (45-73); Platelet Count 279 X10*3/uL (160-400); Red Blood Count 4.59 X10*6/uL (4.60-5.80); Red Cell Distribution Width 13.5 % (11.0-16.0); White Blood Count 8.2 X10*3/uL (4.8-10.8)
[2021-07-09 14:24] LABS: Estimated Average Glucose 128 mg/dL; Hemoglobin A1c % 6.1 %
[2021-07-09 14:25] LABS: Alanine Aminotransferase 12 U/L (0-40); Albumin Level 4.4 g/dL (3.5-5.0); Alkaline Phosphatase 65 U/L (39-117); Anion Gap 13 (12-20); Aspartate Amino Transferase 15 U/L (5-37); Bilirubin Total 0.5 mg/dL (0.0-1.0); Blood Urea Nitrogen 19 mg/dL (9-16); Calcium 10.2 mg/dL (8.4-10.2); Carbon Dioxide 25 mmol/L (22-29); Chloride 103 mmol/L (96-108); Cholesterol 198 mg/dL; Estimated Glomerular Filt Rate > 60; Glucose Fasting 111 mg/dL (60-99); Iron 118 mcg/dL (45-160); Percent Iron Saturation 40 % (15-50); Potassium 4.8 mmol/L (3.3-5.1); Sodium 136 mmol/L (135-145); Total Iron Binding Capacity 298 mcg/dL (228-428); Total Protein 7.1 g/dL (6.5-8.0); Unsaturated Iron Binding 180 ug/dL
[2021-07-09 14:47] LABS: Creatinine Urine 54.89 mg/dL; Microalbum/Creatinine Ratio Ur 10.9 ug/mg cr
[2021-07-09 14:53] LABS: Prostate Specific Antigen 4.12 ng/mL (<0.05-4.0)
== END 2021-07-09 11:41 | disposition home or self-care (01) ==
LOC: HO.10HDL 11:40
PROVIDERS: Visit Provider Internal Medicine
DX: R73.03 Prediabetes (principal); R97.20 Elevated prostate specific antigen [PSA]; I73.9 Peripheral vascular disease, unspecified; Z12.5 Encounter for screening for malignant neoplasm of prostate
CPT/HCPCS: 36415; 80053; 82043; 82465; 83036; 83540; 84153; 85025

== ENCOUNTER → 2021-12-09 12:33 | Outpatient (BNVA) | payer MEDICARE, BC, SELFPAY | PROVIDERS: PCP Internal Medicine; Referring Provider Internal Medicine; Visit Provider Internal Medicine Cardiovascular Disease | DX: I73.9 Peripheral vascular disease, unspecified (principal); I48.0 Paroxysmal atrial fibrillation | CPT/HCPCS: 93005; 99212 ==

== ENCOUNTER 2021-12-11 12:38 | Outpatient (REF) | payer MEDICARE, BC, SELFPAY ==
--- NOTE | ~2021-12-11 | US_ITS ---
EXAMINATION: COLOR-FLOW DUPLEX IMAGING OF THE BILATERAL LOWER EXTREMITY ARTERIAL SYSTEM. VELOCITY MEASUREMENTS THROUGHOUT THE FEMORAL ARTERIES WITH ANKLE-BRACHIAL PERIPHERAL ARTERIAL TESTING. Interventional Radiologist: Evangelista Hollingsworth M.D., F.S.I.R., F.A.C.R. CLINICAL INFORMATION: This is a 71-year-old male with peripheral vascular disease. Diabetes. RIGHT FEMORAL RUNOFF VELOCITIES: The right common femoral artery measures 152 cm/s and triphasic. The right profunda femoral artery is 82 cm/s and is triphasic. Right proximal superficial femoral artery measures 110 cm/s and triphasic. Mid superficial femoral artery is 111 cm/s and triphasic. Distal right superficial femoral artery measures 85 cm/s and is triphasic. Right popliteal velocity measures 85 cm/s and is triphasic. The posterior tibial artery velocity measures 134 cm/s and was triphasic. The right ankle-brachial index is 0.99. LEFT FEMORAL RUNOFF VELOCITIES: The left common femoral artery measures 136 cm/s and triphasic. The right profunda femoral artery is 110 cm/s and is triphasic. Right proximal superficial femoral artery measures 133 cm/s and triphasic. Mid superficial femoral artery is 127 cm/s and triphasic. Distal right superficial femoral artery measures 94 cm/s and is triphasic. Right popliteal velocity measures 96 cm/s and is biphasic. The posterior tibial artery velocity measures 339 cm/s and was monophasic. There is likely high-grade stenosis present in the posterior tibial artery. There is severe atherosclerotic disease present. The left ankle-brachial index is 0.78. US/US arterial duplex LE BI IMPRESSION: 1. Normal right lower extremity peripheral arterial testing without evidence of hemodynamically significant stenosis. 2. Abnormal left lower extremity peripheral arterial testing. There is likely a tibial vessel high-grade hemodynamically significant stenosis.
--- NOTE | ~2021-12-11 | US_ITS ---
EXAMINATION: COLOR-FLOW DUPLEX IMAGING OF THE BILATERAL LOWER EXTREMITY ARTERIAL SYSTEM. VELOCITY MEASUREMENTS THROUGHOUT THE FEMORAL ARTERIES WITH ANKLE-BRACHIAL PERIPHERAL ARTERIAL TESTING. Interventional Radiologist: Evangelista Hollingsworth M.D., F.S.I.R., F.A.C.R. CLINICAL INFORMATION: This is a 71-year-old male with peripheral vascular disease. Diabetes. RIGHT FEMORAL RUNOFF VELOCITIES: The right common femoral artery measures 152 cm/s and triphasic. The right profunda femoral artery is 82 cm/s and is triphasic. Right proximal superficial femoral artery measures 110 cm/s and triphasic. Mid superficial femoral artery is 111 cm/s and triphasic. Distal right superficial femoral artery measures 85 cm/s and is triphasic. Right popliteal velocity measures 85 cm/s and is triphasic. The posterior tibial artery velocity measures 134 cm/s and was triphasic. The right ankle-brachial index is 0.99. LEFT FEMORAL RUNOFF VELOCITIES: The left common femoral artery measures 136 cm/s and triphasic. The right profunda femoral artery is 110 cm/s and is triphasic. Right proximal superficial femoral artery measures 133 cm/s and triphasic. Mid superficial femoral artery is 127 cm/s and triphasic. Distal right superficial femoral artery measures 94 cm/s and is triphasic. Right popliteal velocity measures 96 cm/s and is biphasic. The posterior tibial artery velocity measures 339 cm/s and was monophasic. There is likely high-grade stenosis present in the posterior tibial artery. There is severe atherosclerotic disease present. The left ankle-brachial index is 0.78. US/US ASHLEY complete IMPRESSION: 1. Normal right lower extremity peripheral arterial testing without evidence of hemodynamically significant stenosis. 2. Abnormal left lower extremity peripheral arterial testing. There is likely a tibial vessel high-grade hemodynamically significant stenosis.
== END 2021-12-11 12:39 | disposition home or self-care (01) ==
LOC: HO.US 12:38
PROVIDERS: Visit Provider Surgery Vascular Surgery
DX: I73.9 Peripheral vascular disease, unspecified (principal)
CPT/HCPCS: 93923; 93925

== ENCOUNTER → 2021-12-12 10:55 | Outpatient (BNVA) | payer MEDICARE, BC, SELFPAY | PROVIDERS: PCP Internal Medicine; Visit Provider Surgery Vascular Surgery | DX: I73.9 Peripheral vascular disease, unspecified (principal) | CPT/HCPCS: 99212 ==

== ENCOUNTER 2021-12-30 10:58 | Day surgery (SDC) | payer MEDICARE, BC, SELFPAY ==
[2021-12-30] VITALS (9 sets, daily range): BP systolic 134–159; BP diastolic 69–80; PULSE 91–105; RESP 18–20; TEMP 36.6–36.7; O2SAT 96–97; BMI 26.9
[2021-12-30 12:31] LABS: MANUAL DIFF FLAG NO
[2021-12-30 12:39] LABS: Basophils Percent Auto 0.5 % (0-2); Eosinophils Absolute Auto 0.1 X10*3/uL (0.0-0.4); Eosinophils Percent Auto 1.5 % (0-4); Hematocrit 39.2 % (42.0-52.0); Hemoglobin 13.4 g/dl (14.0-18.0); Imm Gran Abs Auto 0.02 X10*3/uL (0.00-0.03); Imm Gran Pct Auto 0.3 % (0.0-0.4); Lymphocytes Absolute Auto 1.6 X10*3/uL (1.2-4.9); Lymphocytes Percent Auto 22.1 % (20-40); Mean Corpuscular HGB Conc 34.2 g/dl (31.0-36.0); Mean Corpuscular Hemoglobin 31.1 pg (27.0-33.0); Mean Platelet Volume 8.7 fL (9.4-12.4); Monocytes Absolute Auto 0.6 X10*3/uL (0.1-1.2); Monocytes Percent Auto 8.3 % (2-11); Neutrophils Percent Auto 67.3 % (45-73); Platelet Count 225 X10*3/uL (160-400); Red Blood Count 4.31 X10*6/uL (4.60-5.80); Red Cell Distribution Width 13.1 % (11.0-16.0); White Blood Count 7.4 X10*3/uL (4.8-10.8)
[2021-12-30 12:45] LABS: Blood Urea Nitrogen 16 mg/dL (9-16); Estimated Glomerular Filt Rate > 60
[2021-12-30] MEDS: iohexoL 300 MG/ML 100 ML INFUS..BTL IV (14:21)
--- NOTE | 2021-12-30 14:52 | P.OP_ITS ---
Operative Note Operative Note Date of Service: 12/30/21 Narrative: Angiogram report from [facility] Preoperative diagnosis: Atherosclerosis of left lower extremity with nonhealing ulcer Postoperative diagnosis: Same Procedure: 1. Ultrasound-guided right common femoral access 2. Aortogram with left lower extremity runoff Surgeon:Guillermo Rodriguez M.D., FACS, RPVI Title Search Manager:None Anesthesia: Local with moderate conscious sedation. Total intraservice moderate sedation time was 28 minutes. I monitored the patient's level of consciousness and physiologic status continuously throughout the procedure. Specimens:none Drains:none Estimated blood loss: Less than 10 ml Implant: None Indications: 71-year-old gentleman with a history of nonhealing left foot ulcer. He has been treated by Podiatry. He has undergone ultrasound evaluation now presents for endovascular intervention. patient has signed the informed consent after reviewing risks, complications, benefits, and alternatives previously discussed with the patient. The patient was given the opportunity to ask any additional questions or voice any concerns. All questions were answered to the patient's satisfaction. Procedure in detail: Patient was brought to the angiography suite prior to which a time-out was called for patient identification and site verification. Bilateral groins were prepped and draped in the standard surgical fashion. Under ultrasound guidance right common femoral was punctured with micro puncture needle and wire. Subsequently a precision 5 Estonian sheath was then placed. Bentson wire was advanced to the level of the aorta. 5 Estonian Flush catheter was brought up and parked at the level of the renal arteries. Aortogram was then undertaken. Catheter was brought down to the level of the iliac bifurcation. Iliacs were subsequently imaged. Catheter was then brought in up and over to the left side SFA. Runoff study was then undertaken. No int ervention was indicated. Catheter wire sheath was removed. 10 minutes direct pressure was held. Patient tolerated the procedure well. Returned to recovery with stable vitals. Interpretation of films: 1. Ultrasound demonstrates appropriate femoral puncture. Image of which was saved. 2. Aortogram demonstrates appropriate caliber aorta. Minimal disease. Appropriate take-off of the renals. 3. Iliac images demonstrate no significant disease 4. Left Leg Common femoral artery: No significant disease Profundus Femoris: No significant disease Superficial femoral artery: No significant disease Popliteal artery (p1,p2,p3): No significant disease Anterior tibial artery: Occludes after proximal 1/3 Peroneal artery: Patent all the way to the level of the foot Posterior tibial artery: Patent all the way to the level of the foot Dorsalis pedis/plantar arch: Incomplete Conclusion: 1. Successful diagnostic angiogram with adequate supply to heal foot ulcer 2. Anticoagulation status: Resume prior with no change This note is constructed using voice recognition software. While every effort has been made to ensure accuracy, major sales associate errors may have been included. Thank you for allowing me to participate in the care of your patient. Yours sincerely, Guillermo Rodriguez MD, FACS, R.P.V.I.
== END 2021-12-30 17:37 | disposition home or self-care (01) ==
PROVIDERS: Visit Provider Surgery Vascular Surgery
DX: I70.245 Atherosclerosis of native arteries of left leg with ulceration of other part of foot (principal); L97.529 Non-pressure chronic ulcer of other part of left foot with unspecified severity; Z89.421 Acquired absence of other right toe(s); R73.03 Prediabetes; Z88.0 Allergy status to penicillin; Z88.1 Allergy status to other antibiotic agents
CPT/HCPCS: 36247; 36415; 75630; 76937; 82565; 84520; 85025; C1769; C1887; J2250; J3010; Q9967

== ENCOUNTER 2022-01-13 18:37 | Inpatient (IN) | payer MEDICARE, BC, SELFPAY ==
--- NOTE | ~2022-01-13 | XR_ITS ---
EXAMINATION: XR CHEST CLINICAL INFORMATION: Fever with cough. COMPARISON: None TECHNIQUE: Frontal view of the chest was obtained. FINDINGS: Minimal linear markings are seen in the left lower lung. The lungs otherwise clear. The heart and mediastinal structures are unremarkable. XR/XR chest 1V IMPRESSION: Minimal linear markings in the left lower lung suggesting atelectasis/scarring. No overt acute cardiopulmonary process.
--- NOTE | ~2022-01-13 | XR_ITS ---
EXAMINATION: XR FOOT, LEFT CLINICAL INFORMATION: Question third toe osteomyelitis COMPARISON: Left foot radiographs 01/23/2021 and MRI left foot 01/24/2021 TECHNIQUE: AP, lateral, and oblique views of the left foot. FINDINGS: Since the prior study, the patient has undergone amputation of the phalanges of the first toe as well as the possibly a portion of the distal phalanx of the second and probably third toe. No acute fractures are seen. On the AP view, there is some indistinctness seen in a portion of the most distal visualized phalangeal tissue. Again seen is an old fracture of the fibula with plate and screw device present. XR/XR foot LT 2V IMPRESSION: Evidence of previous amputations and ORIF fibula. There is a question of some subtle bone destruction at the distal end of the third most distal phalanx. No fractures.
--- NOTE | ~2022-01-13 | CT_ITS ---
EXAMINATION: CT HEAD WITHOUT CONTRAST CLINICAL INFORMATION: Status post fall. COMPARISON: No relevant prior imaging. TECHNIQUE: Contiguous axial imaging was performed from the skull base to vertex without intravenous administration of contrast. This CT examination was performed using dose optimization techniques as appropriate, variously including the following: *Automated exposure control *Adjustment of mA and/or kV according to patient size (this includes techniques or standardized protocols for targeted exams where dose is matched to indication/reason for exam; i.e. extremities or head) *Use of iterative reconstruction technique DLP: 1173 mGy-cm FINDINGS: There is no acute intracranial hemorrhage or abnormal extra-axial collection. No intracranial mass effect or midline shift. Lateral and third ventricles are normal. No hydrocephalus. Baird-white matter differentiation is preserved and there is no evidence of acute territorial infarct. The calvarium and skull base are intact. Mastoid air cells and middle ear cavities are well aerated. No active paranasal sinus disease. CT/CT head/brain wo con IMPRESSION: Unremarkable CT scan of the head. No evidence of acute territorial infarct or hemorrhage.
--- NOTE | 2022-01-13 18:49 | ED.AMS ---
HPI - Altered Mental Status General Chief Complaint: Altered Mental Status Stated Complaint: WEAKNESS,AMS PER EMS Time Seen by Provider: 01/13/22 18:49 Source: patient Mode of arrival: EMS Limitations: no limitations History of Present Illness HPI narrative: Patient is 72 years so with history of paroxysmal atrial fibrillation on Eliquis with history of diabetes and peripheral vascular disease comes here for weakness and increased confusion since morning today patient denies any fall but was found on the floor by EMS also has cough for last few weeks had rectal temperature of 102.8 degrees on arrival patient is a small wound on left 3rd toe with slight redness for last few days Related Data Home Medications Medication Instructions Recorded Confirmed cholecalciferol (vitamin D3) 25 25 mcg PO DAILY 10/23/20 01/13/22 mcg (1,000 unit) capsule lancets 28 gauge #100 ea 03/14/21 12/09/21 Previous Rx's Medication Instructions Recorded off loading boot ([facility] off #1 ea 12/27/20 loading boot) aspirin 81 mg chewable tablet 81 mg PO DAILY #30 tab 02/03/21 apixaban 5 mg tablet (Eliquis) 5 mg PO BID 90 Days #180 tab 11/18/21 metoprolol tartrate 25 mg tablet 25 mg PO BID 90 Days #180 tab 12/30/21 Allergies Allergy/AdvReac Type Severity Reaction Status Date / Time penicillin V Allergy Intermediate rash Verified 12/30/21 11:40 Erythromycin Allergy Intermediate diarrhea Uncoded 03/14/21 10:20 Review of Systems Review of Systems: Yes all other systems are reviewed and are negative PMFSH Past Medical History Medical History Amputated toe of right foot Amputation of great toe Arrhythmia History of amputation of toe History of heart valve abnormality History of neuropathy Osteomyelitis Osteomyelitis of second toe of left foot Pre-diabetes Ulcer of left second toe Surgical History Hx of amputation Status post ORIF of fracture of ankle Family History Family History Mother No problems noted. Social History Social History Household Members: Family Housing: House Do you presently have visiting nurse or other home services: Yes Alcohol intake: never Second Hand Smoke Exposure: No Advance Directives: Yes Advance Directives Information Provided: No Advance Directives on File: No Advance Directives Date on File: 08/07/20 service: Yes Current occupational status: retired Physical Exam ED Vital Signs: Vital Signs - 24 hr 01/13/22 18:50 01/13/22 19:05 01/13/22 20:33 Temperature 99.1 F 102.8 F H 101.2 F H Pulse Rate 132 H 130 H Respiratory Rate 24 H 22 H Blood Pressure 139/68 120/74 Pulse Oximetry 92 95 01/13/22 20:42 Temperature 101.2 F H Pulse Rate Respiratory Rate Blood Pressure Pulse Oximetry BMI result Body Mass Index 27.7 Appearance: Alert. Oriented X3. No acute distress. Febrile to touch Eyes: No pallor/icterus ENT: Pharynx normal. Oral Mucosa moist Neck: Normal inspection. Neck supple. CVS: Normal heart rate and rhythm. Pulses normal. Respiratory: No respiratory distress. Equal air entry bilateral, no wheezing/rales/rhonchi Abdomen: Soft and nontender. Bowel sounds are present, no mass palpable, no CVA tenderness Skin: Skin warm and dry. Normal skin color. Normal skin turgor. Extremities: No lower extremity edema. No calf tenderness left foot 3rd toes inflamed with erythema and warmth on the dorsum of the foot Neuro: Oriented X 3. No motor deficit. No sensory deficit.No cerebellar signs , cranial nerves II-XII intact MDM - Altered Mental Status MDM Narrative Medical decision making narrative: Patient with infected left 3rd toe with slight cellulitis with fever elevated lactic acid level likely deeper infection will admit patient for infected left foot with cellulitis possible osteomyelitis will give IV vancomycin patient already received Rocephin IV. Lab Data Attestation: I reviewed the patient's lab results. Result diagrams: 01/13/22 19:16 01/13/22 19:16 Labs: Lab Results 01/13/22 01/13/22 01/13/22 Range/Units 19:16 19:16 19:16 WBC 10.3 (4.8-10.8) X10*3/uL RBC 4.14 L (4.60-5.80) X10*6/uL Hgb 12.9 L (14.0-18.0) g/dl Hct 37.9 L (42.0-52.0) % MCV 91.5 (80.0-98.0) fL MCH 31.2 (27.0-33.0) pg MCHC 34.0 (31.0-36.0) g/dl RDW 13.2 (11.0-16.0) % Plt Count 229 (160-400) X10*3/uL MPV 9.1 L (9.4-12.4) fL Immature Gran % (Auto) 0.4 (0.0-0.4) % Neut % (Auto) 88.7 H (45-73) % Lymph % (Auto) 5.6 L (20-40) % Ritchie % (Auto) 5.0 (2-11) % Eos % (Auto) 0.1 (0-4) % Baso % (Auto) 0.2 (0-2) % Lymph # (Auto) 0.6 L (1.2-4.9) X10*3/uL Ritchie # (Auto) 0.5 (0.1-1.2) X10*3/uL Eos # (Auto) 0.0 (0.0-0.4) X10*3/uL Baso # (Auto) 0.0 (0.0-0.2) X10*3/uL Abs Immat Gran (auto) 0.04 H (0.00-0.03) X10*3/uL Absolute Neuts (auto) 9.1 H (2.0-8.3) x10*3/uL Absolute Nucleated RBC 0.000 (0.0-0.012) X10*3/uL Nucleated RBC % (auto) 0.0 (0.0-0.2) /100WBC PT (9.9-13.0) SEC INR (0.9-1.1) APTT (24.1-38.0) SEC Sodium 133 L (135-145) mmol/L Potassium 4.6 (3.3-5.1) mmol/L Chloride 99 (96-108) mmol/L Carbon Dioxide 22 (22-29) mmol/L Anion Gap 17 (12-20) BUN 19 H (9-16) mg/dL Creatinine 1.19 (0.5-1.4) mg/dL Estim Creat Clear Calc 68.0 Estimated GFR > 60 Random Glucose 295 H D (60-115) mg/dL Lactic Acid 2.4 H* (0.5-2.0) mmol/L Lactic Acid F/U @ 2Hr (0.5-2.0) mmol/L Calcium 9.4 D (8.4-10.2) mg/dL Magnesium 1.7 (1.6-2.6) mg/dL Total Bilirubin 1.1 H (0.0-1.0) mg/dL AST 22 D (5-37) U/L ALT 17 (0-40) U/L Alkaline Phosphatase 74 (39-117) U/L Total Protein 7.5 (6.5-8.0) g/dL Albumin 4.2 (3.5-5.0) g/dL Urine Color Urine Appearance Urine pH (5.0-8.0) Ur Specific [place] (1.005-1.025) Urine Protein (NEG-TRACE) MG/DL Urine Glucose (UA) (NEG) MG/DL Urine Ketones (NEG) MG/DL Urine Blood (NEG) Urine Nitrite (NEG) Ur Leukocyte Esterase (NEG) Urine RBC (0) /HPF Urine WBC (0-4) /HPF Ur Squamous Epith Cells /LPF Urine Bacteria /LPF COVID-19 ([facility]) (Negative) COVID-19 Clin Com 01/13/22 01/13/22 01/13/22 Range/Units 19:16 19:16 20:44 WBC (4.8-10.8) X10*3/uL RBC (4.60-5.80) X10*6/uL Hgb (14.0-18.0) g/dl Hct (42.0-52.0) % MCV (80.0-98.0) fL MCH (27.0-33.0) pg MCHC (31.0-36.0) g/dl RDW (11.0-16.0) % Plt Count (160-400) X10*3/uL MPV (9.4-12.4) fL Immature Gran % (Auto) (0.0-0.4) % Neut % (Auto) (45-73) % Lymph % (Auto) (20-40) % Ritchie % (Auto) (2-11) % Eos % (Auto) (0-4) % Baso % (Auto) (0-2) % Lymph # (Auto) (1.2-4.9) X10*3/uL Ritchie # (Auto) (0.1-1.2) X10*3/uL Eos # (Auto) (0.0-0.4) X10*3/uL Baso # (Auto) (0.0-0.2) X10*3/uL Abs Immat Gran (auto) (0.00-0.03) X10*3/uL Absolute Neuts (auto) (2.0-8.3) x10*3/uL Absolute Nucleated RBC (0.0-0.012) X10*3/uL Nucleated RBC % (auto) (0.0-0.2) /100WBC PT 14.0 H (9.9-13.0) SEC INR 1.2 H (0.9-1.1) APTT 38.1 H (24.1-38.0) SEC Sodium (135-145) mmol/L Potassium (3.3-5.1) mmol/L Chloride (96-108) mmol/L Carbon Dioxide (22-29) mmol/L Anion Gap (12-20) BUN (9-16) mg/dL Creatinine (0.5-1.4) mg/dL Estim Creat Clear Calc Estimated GFR Random Glucose (60-115) mg/dL Lactic Acid (0.5-2.0) mmol/L Lactic Acid F/U @ 2Hr (0.5-2.0) mmol/L Calcium (8.4-10.2) mg/dL Magnesium (1.6-2.6) mg/dL Total Bilirubin (0.0-1.0) mg/dL AST (5-37) U/L ALT (0-40) U/L Alkaline Phosphatase (39-117) U/L Total Protein (6.5-8.0) g/dL Albumin (3.5-5.0) g/dL Urine Color YELLOW Urine Appearance CLEAR Urine pH 5.5 (5.0-8.0) Ur Specific [place] 1.020 (1.005-1.025) Urine Protein TRACE (NEG-TRACE) MG/DL Urine Glucose (UA) 500 H (NEG) MG/DL Urine Ketones 5 (NEG) MG/DL Urine Blood 3+ H (NEG) Urine Nitrite NEG (NEG) Ur Leukocyte Esterase NEG (NEG) Urine RBC 5-9 H (0) /HPF Urine WBC 0 (0-4) /HPF Ur Squamous Epith Cells 1+ /LPF Urine Bacteria 1+ /LPF COVID-19 ([facility]) Negative (Negative) COVID-19 Clin Com See Note 01/13/22 Range/Units 21:59 WBC (4.8-10.8) X10*3/uL RBC (4.60-5.80) X10*6/uL Hgb (14.0-18.0) g/dl Hct (42.0-52.0) % MCV (80.0-98.0) fL MCH (27.0-33.0) pg MCHC (31.0-36.0) g/dl RDW (11.0-16.0) % Plt Count (160-400) X10*3/uL MPV (9.4-12.4) fL Immature Gran % (Auto) (0.0-0.4) % Neut % (Auto) (45-73) % Lymph % (Auto) (20-40) % Ritchie % (Auto) (2-11) % Eos % (Auto) (0-4) % Baso % (Auto) (0-2) % Lymph # (Auto) (1.2-4.9) X10*3/uL Ritchie # (Auto) (0.1-1.2) X10*3/uL Eos # (Auto) (0.0-0.4) X10*3/uL Baso # (Auto) (0.0-0.2) X10*3/uL Abs Immat Gran (auto) (0.00-0.03) X10*3/uL Absolute Neuts (auto) (2.0-8.3) x10*3/uL Absolute Nucleated RBC (0.0-0.012) X10*3/uL Nucleated RBC % (auto) (0.0-0.2) /100WBC PT (9.9-13.0) SEC INR (0.9-1.1) APTT (24.1-38.0) SEC Sodium (135-145) mmol/L Potassium (3.3-5.1) mmol/L Chloride (96-108) mmol/L Carbon Dioxide (22-29) mmol/L Anion Gap (12-20) BUN (9-16) mg/dL Creatinine (0.5-1.4) mg/dL Estim Creat Clear Calc Estimated GFR Random Glucose (60-115) mg/dL Lactic Acid (0.5-2.0) mmol/L Lactic Acid F/U @ 2Hr 1.4 (0.5-2.0) mmol/L Calcium (8.4-10.2) mg/dL Magnesium (1.6-2.6) mg/dL Total Bilirubin (0.0-1.0) mg/dL AST (5-37) U/L ALT (0-40) U/L Alkaline Phosphatase (39-117) U/L Total Protein (6.5-8.0) g/dL Albumin (3.5-5.0) g/dL Urine Color Urine Appearance Urine pH (5.0-8.0) Ur Specific [place] (1.005-1.025) Urine Protein (NEG-TRACE) MG/DL Urine Glucose (UA) (NEG) MG/DL Urine Ketones (NEG) MG/DL Urine Blood (NEG) Urine Nitrite (NEG) Ur Leukocyte Esterase (NEG) Urine RBC (0) /HPF Urine WBC (0-4) /HPF Ur Squamous Epith Cells /LPF Urine Bacteria /LPF COVID-19 ([facility]) (Negative) COVID-19 Clin Com ECG Data ECG #1: Attestation: I personally reviewed and interpreted this ECG as follows: Interpretation: Sinus tachycardia with heart rate 131 beats per minute no acute STT wave changes no acute ischemia impression sinus tachycardia Discharge Plan Discharge Clinical Impression: Cellulitis, Fever Patient Disposition: Admitted As Inpatient
[2022-01-13 18:50] VITALS: BP 139/68; PULSE 132; RESP 24; TEMP 37.3; O2SAT 92; BMI 27.7
--- NOTE | 2022-01-13 19:00 | ECG_ITS ---
Test Reason : ams Blood Pressure : / mmHG Vent. Rate : 131 BPM Atrial Rate : 131 BPM P-R Int : 148 ms QRS Dur : 086 ms QT Int : 308 ms P-R-T Axes : 022 030 050 degrees QTc Int : 454 ms Sinus tachycardia Possible Left atrial enlargement Nonspecific ST and T wave abnormality Abnormal ECG No previous ECGs available Referred By: Dominguez Otoole Electronically Signed By:BETSY LOMAS
[2022-01-13 19:05] VITALS: TEMP 39.3
[2022-01-13] MEDS: Acetaminophen 325 MG TABLET 650 MG PO (19:23)
[2022-01-13] MEDS: 0.9 % Sodium Chloride 1,000 ML 999 ML IV (19:25)
[2022-01-13 19:26] LABS: MANUAL DIFF FLAG NO
[2022-01-13 19:30] LABS: Basophils Percent Auto 0.2 % (0-2); Eosinophils Percent Auto 0.1 % (0-4); Hematocrit 37.9 % (42.0-52.0); Hemoglobin 12.9 g/dl (14.0-18.0); Imm Gran Abs Auto 0.04 X10*3/uL (0.00-0.03); Imm Gran Pct Auto 0.4 % (0.0-0.4); Lymphocytes Absolute Auto 0.6 X10*3/uL (1.2-4.9); Lymphocytes Percent Auto 5.6 % (20-40); Mean Corpuscular Hemoglobin 31.2 pg (27.0-33.0); Mean Corpuscular Volume 91.5 fL (80.0-98.0); Mean Platelet Volume 9.1 fL (9.4-12.4); Monocytes Absolute Auto 0.5 X10*3/uL (0.1-1.2); Neutrophils Absolute Auto 9.1 x10*3/uL (2.0-8.3); Neutrophils Percent Auto 88.7 % (45-73); Platelet Count 229 X10*3/uL (160-400); Red Blood Count 4.14 X10*6/uL (4.60-5.80); Red Cell Distribution Width 13.2 % (11.0-16.0); White Blood Count 10.3 X10*3/uL (4.8-10.8)
[2022-01-13 19:37] LABS: INTERNATIONAL NORM RATIO 1.2 (0.9-1.1)
[2022-01-13 19:40] LABS: Partial Thromboplastin Time 38.1 SEC (24.1-38.0)
[2022-01-13 19:43] LABS: Alanine Aminotransferase 17 U/L (0-40); Albumin Level 4.2 g/dL (3.5-5.0); Alkaline Phosphatase 74 U/L (39-117); Anion Gap 17 (12-20); Aspartate Amino Transferase 22 U/L (5-37); Bilirubin Total 1.1 mg/dL (0.0-1.0); Blood Urea Nitrogen 19 mg/dL (9-16); Calcium 9.4 mg/dL (8.4-10.2); Carbon Dioxide 22 mmol/L (22-29); Chloride 99 mmol/L (96-108); Estimated Glomerular Filt Rate > 60; Glucose Random 295 mg/dL (60-115); Magnesium 1.7 mg/dL (1.6-2.6); Potassium 4.6 mmol/L (3.3-5.1); Sodium 133 mmol/L (135-145); Total Protein 7.5 g/dL (6.5-8.0)
[2022-01-13 19:44] LABS: COVID-19 Test Negative (Negative); IDNOW Serial# 16C4AD1C; Lactic Acid 2.4 mmol/L (0.5-2.0)
[2022-01-13 20:33] VITALS: BP 120/74; PULSE 130; RESP 22; TEMP 38.4; O2SAT 95
[2022-01-13 20:42] VITALS: TEMP 38.4
[2022-01-13] MEDS: cefTRIAXone sodium 1 GM in 0.9 % Sodium Chloride 50 ML IV (20:43)
[2022-01-13 20:51] LABS: Appearance Urine CLEAR; Color Urine YELLOW; Glucose Urine UA 500 MG/DL (NEG); Leukocyte Esterase Urine NEG (NEG); Nitrite Urine NEG (NEG); PH 5.5 (5.0-8.0); UACC Culture Trigger NO; Urine Blood 3+ (NEG); Urine Ketones 5 MG/DL (NEG); Urine Protein TRACE MG/DL (NEG-TRACE)
[2022-01-13 21:02] LABS: Bacteria Urine 1+ /LPF; Squamous Epithelial Cell Urine 1+ /LPF; WBC Urine 0 /HPF (0-4)
[2022-01-13 21:24] LABS: Reflex Lactate? Lactic Acid Added
--- NOTE | 2022-01-13 21:39 | PHA.MEDREC ---
Pharmacy Consult ? Medication Reconciliation Pharmacy has completed the medication reconciliation. Spoke with patient in ED who knew all medications. Pt states he took all medications this morning.
[2022-01-13] MEDS: vancomycin HCL 1,000 MG in 0.9 % Sodium Chloride 250 ML 270 MG IV (22:01)
[2022-01-13 22:12] LABS: ~Lactic Acid-LAB USE ONLY 1.4 mmol/L (0.5-2.0)
--- NOTE | 2022-01-13 22:22 | P.HPHOSP_ITS ---
History of Present Illness Date of Service: 01/13/22 Chief Complaint: Generalized weakness 72-year-old male with a past medical history of hypertension, AFib on Eliquis, neuropathy, history of osteomyelitis of the left 2nd toe, history of toe amputation about any ago; peripheral vascular disease, pre diabetes; presented to the hospital today with a chief complaint of generalized weakness. Patient reported that he felt generally weak and unable to get up from the bed. Denies any falls or trauma. Mentions that he has to amputation about any ago and has an infection on the left 3rd toe and has an appointment to follow-up with vascular surgery clinic tomorrow. Denies any fevers and chills. Denies any cough or sputum production. Denies any urinary symptoms. Denies any chest pain or palpitations. Review of all other systems is negative except mentioned above ER course: Per ER team patient noted to have tachycardia, fever, lactic acidosis, lactic acidosis; sepsis in the setting of left 3rd toe cellulitis. Given antibiotics. Admitted to the hospital for further management. Also mentioned that patient reported fall(which he denied to me) to the ER team and had a CT head done which showed no acute findings. [facility] Medical History Amputated toe of right foot Amputation of great toe Arrhythmia History of amputation of toe History of heart valve abnormality History of neuropathy Osteomyelitis Osteomyelitis of second toe of left foot Pre-diabetes Ulcer of left second toe Family History Mother No problems noted. Pertinent family history: Reviewed Surgical History Hx of amputation Status post ORIF of fracture of ankle Social History Household Members: Family Housing: House Do you presently have visiting nurse or other home services: Yes Alcohol intake: never Second Hand Smoke Exposure: No Advance Directives: Yes Advance Directives Information Provided: No Advance Directives on File: No Advance Directives Date on File: 08/07/20 service: Yes Current occupational status: retired Meds Allergies Allergy/AdvReac Type Severity Reaction Status Date / Time penicillin V Allergy Intermediate rash Verified 12/30/21 11:40 Erythromycin Allergy Intermediate diarrhea Uncoded 03/14/21 10:20 Active Medications: Current Medications Apixaban (Apixaban 5 Mg Tablet) 5 mg PO BID [facility] Aspirin (Aspirin 81 Mg Tab.Chew) 81 mg PO DAILY [facility] Dextrose (Dextrose 50 % 25 Gm/50 Ml Vial) 25 gm IVPUSH Q15M PRN; Protocol PRN Reason: per Hypoglycemia Standing Ord. Glucose (Glucose Gel 15 Gm Gel..Gram.) 15 gm PO Q15M PRN; Protocol PRN Reason: per Hypoglycemia Standing Ord. Vancomycin HCl 1,000 mg/ (Sodium Chloride) 270 mls @ 270 mls/hr IV ONCE ONE Stop: 01/13/22 22:38 Last Admin: 01/13/22 22:01 Dose: 270 mls/hr Documented by: Vancomycin HCl 1,000 mg/ (Sodium Chloride) 270 mls @ 270 mls/hr IV Q12H CODY Cefepime HCl 1 gm/ Sodium (Chloride) 50 mls @ 100 mls/hr IV Q8H [facility] Insulin Human Lispro (Insulin Lispro 100 Unit/Ml 3 Ml Vial) 0 unit SUBCUT QIDACHS [facility]; Protocol Metoprolol Tartrate (Metoprolol Tartrate 25 Mg Tablet) 25 mg PO BID [facility]; Protocol Pharmacy Consult (Consult Rx Perform Med Rec) 1 each MISCELLANE ONCE PRN PRN Reason: Consult order Pharmacy Consult (Consult Rx Vancomycin Dosing) 1 each MISCELLANE DAILY PRN PRN Reason: Consult order Vitamin D (Cholecalciferol (Vitamin D3) 25 Mcg Tablet) 25 mcg PO DAILY [facility] Home Medications Medication Instructions Recorded Confirmed Last Taken Type cholecalciferol (vitamin D3) 25 25 mcg PO DAILY 10/23/20 01/13/22 01/13/22 History mcg (1,000 unit) capsule lancets 28 gauge #100 ea 03/14/21 12/09/21 Unknown History Physical Exam Vital Signs and Narrative: Vital Signs: Last Vital Signs Temp 101.2 F H 01/13/22 20:42 Pulse 130 H 01/13/22 20:33 Resp 22 H 01/13/22 20:33 BP 120/74 01/13/22 20:33 Pulse Ox 95 01/13/22 20:33 BMI result Body Mass Index 27.7 Gen: Appears be in no acute distress HEENT: NCAT, Moist mucosa. Pulmonary: Vesicular breath sounds, fair air entry CVS: Normal S1-S2 Abdomen: BS+, Soft, Nontender Extremities: Warm well perfused; noted to have left 3rd toe erythema, warm, tender. Dorsum of the foot is mildly warm but no significant erythema Neuro: Alert and awake. Results Labs CBC and Chem 7: 01/13/22 19:16 01/13/22 19:16 Labs: Laboratory Results - last 24 hr 01/13/22 01/13/22 01/13/22 19:16 19:16 19:16 MCV 91.5 MCH 31.2 MCHC 34.0 RDW 13.2 Plt Count 229 MPV 9.1 L Immature Gran % (Auto) 0.4 Neut % (Auto) 88.7 H Lymph % (Auto) 5.6 L [place] % (Auto) 5.0 Eos % (Auto) 0.1 Baso % (Auto) 0.2 Lymph # (Auto) 0.6 L [place] # (Auto) 0.5 Eos # (Auto) 0.0 Baso # (Auto) 0.0 Abs Immat Gran (auto) 0.04 H Absolute Neuts (auto) 9.1 H Absolute Nucleated RBC 0.000 Nucleated RBC % (auto) 0.0 PT INR APTT Anion Gap 17 Estim Creat Clear Calc 68.0 Estimated GFR > 60 Random Glucose 295 H D Lactic Acid 2.4 H* Lactic Acid F/U @ 2Hr Calcium 9.4 D Magnesium 1.7 Total Bilirubin 1.1 H AST 22 D ALT 17 Alkaline Phosphatase 74 Total Protein 7.5 Albumin 4.2 Urine Color Urine Appearance Urine pH Ur Specific [place] Urine Protein Urine Glucose (UA) Urine Ketones Urine Blood Urine Nitrite Ur Leukocyte Esterase Urine RBC Urine WBC Ur Squamous Epith Cells Urine Bacteria COVID-19 (SREEDHAR) COVID-19 Clin Com 01/13/22 01/13/22 01/13/22 19:16 19:16 20:44 MCV MCH MCHC RDW Plt Count MPV Immature Gran % (Auto) Neut % (Auto) Lymph % (Auto) [place] % (Auto) Eos % (Auto) Baso % (Auto) Lymph # (Auto) [place] # (Auto) Eos # (Auto) Baso # (Auto) Abs Immat Gran (auto) Absolute Neuts (auto) Absolute Nucleated RBC Nucleated RBC % (auto) PT 14.0 H INR 1.2 H APTT 38.1 H Anion Gap Estim Creat Clear Calc Estimated GFR Random Glucose Lactic Acid Lactic Acid F/U @ 2Hr Calcium Magnesium Total Bilirubin AST ALT Alkaline Phosphatase Total Protein Albumin Urine Color YELLOW Urine Appearance CLEAR Urine pH 5.5 Ur Specific [place] 1.020 Urine Protein TRACE Urine Glucose (UA) 500 H Urine Ketones 5 Urine Blood 3+ H Urine Nitrite NEG Ur Leukocyte Esterase NEG Urine RBC 5-9 H Urine WBC 0 Ur Squamous Epith Cells 1+ Urine Bacteria 1+ COVID-19 (SREEDHAR) Negative COVID-19 Clin Com See Note 01/13/22 21:59 MCV MCH MCHC RDW Plt Count MPV Immature Gran % (Auto) Neut % (Auto) Lymph % (Auto) [place] % (Auto) Eos % (Auto) Baso % (Auto) Lymph # (Auto) [place] # (Auto) Eos # (Auto) Baso # (Auto) Abs Immat Gran (auto) Absolute Neuts (auto) Absolute Nucleated RBC Nucleated RBC % (auto) PT INR APTT Anion Gap Estim Creat Clear Calc Estimated GFR Random Glucose Lactic Acid Lactic Acid F/U @ 2Hr 1.4 Calcium Magnesium Total Bilirubin AST ALT Alkaline Phosphatase Total Protein Albumin Urine Color Urine Appearance Urine pH Ur Specific [place] Urine Protein Urine Glucose (UA) Urine Ketones Urine Blood Urine Nitrite Ur Leukocyte Esterase Urine RBC Urine WBC Ur Squamous Epith Cells Urine Bacteria COVID-19 (SREEDHAR) COVID-19 Clin Com Imaging Radiologist's Impressions: Impressions Chest X-Ray 01/13/22 20:04 IMPRESSION: Minimal linear markings in the left lower lung suggesting atelectasis/scarring. No overt acute cardiopulmonary process. Head CT 01/13/22 20:46 IMPRESSION: Unremarkable CT scan of the head. No evidence of acute territorial infarct or hemorrhage. Assessment and Plan (1) PAF (paroxysmal atrial fibrillation): Status: Acute (2) PVD (peripheral vascular disease): Status: Acute (3) Pre-diabetes: Status: Acute (4) Cellulitis: Status: Acute Plan 72-year-old male with a past medical history of hypertension, AFib on Eliquis, neuropathy, history of osteomyelitis of the left 2nd toe, history of toe amputation about any ago; peripheral vascular disease, pre diabetes; presented to the hospital today with a chief complaint of generalized weakness. Noted to have sepsis in the setting of foot infection. A admitted for further manage ment. Sepsis/Left 3rd toe cellulitis: Foot x ray showed: There is a question of some subtle bone destruction at the distal end of the third most distal phalanx. concerning for osteomyelitis. Patient was initially febrile to 101.2, tachy to 130s, lactate of 2.4; given IV fluids. Will give the patient on IV vancomycin and cefepime. Will consult ID and vascular surgery. Tylenol p.r.n. AFib with RVR: Continue home metoprolol and Eliquis. IV metoprolol prn. Urinary retention: Bladder scan showed 788 cc of urine. Davis catheter. Urology follow-up. History of prediabetes: Will obtain hemoglobin A1c. Insulin sliding scale. DVT prophylaxis: Patient on Eliquis Code status: Full code Quality Stroke Does the patient have a stroke diagnosis?: No VTE Prior VTE?: No VTE Risk Level:: Medical - moderate - high VTE Device Contraindication: Treatment Not Indicated VTE Drug Contraindication: N/A - Med Ordered
--- NOTE | 2022-01-13 22:42 | PHA.PROG ---
Admission Date/Time: January 13, 2022 22:21 Indication: Weight in k.6 kg Adjusted body weight in K.94 Serum Creatinine - Last 168 Hours 01/13/22 19:16 Creatinine 1.19 Estimated CrCl and GFR - Last 168 Hours 01/13/22 19:16 Estim Creat Clear Calc 68.0 Estimated GFR > 60 Vancomycin Loading Dose: 2000 Current Vancomycin Dosing Regimen: 1500 Q 24H Vancomycin Monitoring using AUC goal of 400 - 600 range with trough as surrogate marker 442: Date and Time for next Vancomycin Level to be drawn: 01/15 @ 2100 Pharmacist Comments on Vancomycin Plan: Vancomycin dosing will take advantage of [facility] as a clinical decision support tool that uses Bayesian modeling to calculate individual patient's pharmacokinetic parameters and forecast the patient's drug concentration time course with the target goal AUC 24 range of 400 - 600 mg/L/hr.
[2022-01-13 23:02] VITALS: BP 124/54; PULSE 116; RESP 22; TEMP 37.2; O2SAT 95
[2022-01-13 23:05] LABS: Estimated Average Glucose 143 mg/dL; Hemoglobin A1c % 6.6 %
--- NOTE | 2022-01-13 23:39 | PC.NURSE ---
This RN wrapped the PT's left foot with sterile bandages.
[2022-01-14] VITALS (8 sets, daily range): BP systolic 104–183; BP diastolic 60–103; PULSE 80–156; RESP 15–28; TEMP 36.5–39.8; O2SAT 87–100
[2022-01-14] MEDS: 0.9 % Sodium Chloride 1,000 ML 75 ML IVCONT ×2 (00:42→14:10)
[2022-01-14] MEDS: cefEPime HCl 1 GM in 0.9 % Sodium Chloride 50 ML IV ×4 (00:42→23:26)
[2022-01-14] MEDS: Metoprolol Tartrate 5 MG/5 ML VIAL IVPUSH (00:52)
[2022-01-14] MEDS: 0.9 % Sodium Chloride Flush 3 ML SYRINGE IVFLUSH ×3 (01:41→15:46)
[2022-01-14] MEDS: Acetaminophen 325 MG TABLET 650 MG PO ×2 (02:29→11:22)
--- NOTE | 2022-01-14 04:43 | PC.NURSE ---
RECEIVED FROM MAIN ED TO OVERFLOW BED 4...AWAKE...VAGUE BUT CONVERSANT.....SINUS TACH HR 156-160..TACHYPNEIC...BP 183/103..TREMULOUS...TEMP 101.8 RECTAL...HOAPIOTALIST PAGED AND PRESENT...LOPRESSOR 5 MG IV GIVEN...NS 75 CC/HR STARTED...ANTIBIOTICS PER DEC...TYLENOL 650MG PO...C/O INABILITY TO VOID..BLADDER SCANNED >780ml... UPDATED...#16 FR TEMPERATURE MULTANI INSERTED WITH 750ML URINE OBTAINED..CORE TEMP 103.8CURRENTLY TEMP 100.6 AND HR 100-102
[2022-01-14 06:13] LABS: MANUAL DIFF FLAG NO
[2022-01-14 06:16] LABS: Basophils Percent Auto 0.2 % (0-2); Eosinophils Percent Auto 0.1 % (0-4); Hematocrit 34.4 % (42.0-52.0); Hemoglobin 11.4 g/dl (14.0-18.0); Imm Gran Abs Auto 0.05 X10*3/uL (0.00-0.03); Imm Gran Pct Auto 0.6 % (0.0-0.4); Lymphocytes Absolute Auto 0.4 X10*3/uL (1.2-4.9); Lymphocytes Percent Auto 4.7 % (20-40); Mean Corpuscular HGB Conc 33.1 g/dl (31.0-36.0); Mean Corpuscular Hemoglobin 30.9 pg (27.0-33.0); Mean Corpuscular Volume 93.2 fL (80.0-98.0); Mean Platelet Volume 9.2 fL (9.4-12.4); Monocytes Absolute Auto 0.5 X10*3/uL (0.1-1.2); Monocytes Percent Auto 5.5 % (2-11); Neutrophils Absolute Auto 8.1 x10*3/uL (2.0-8.3); Neutrophils Percent Auto 88.9 % (45-73); Platelet Count 220 X10*3/uL (160-400); Red Blood Count 3.69 X10*6/uL (4.60-5.80); Red Cell Distribution Width 13.3 % (11.0-16.0); White Blood Count 9.1 X10*3/uL (4.8-10.8)
[2022-01-14 06:36] LABS: Anion Gap 13 (12-20); Blood Urea Nitrogen 22 mg/dL (9-16); Calcium 8.5 mg/dL (8.4-10.2); Carbon Dioxide 22 mmol/L (22-29); Chloride 105 mmol/L (96-108); Creatinine Clr Calc Pharmacy 55.8; Estimated Glomerular Filt Rate 48; Glucose Random 275 mg/dL (60-115); Potassium 3.8 mmol/L (3.3-5.1); Sodium 136 mmol/L (135-145)
[2022-01-14 07:30] LABS: Glucose, Whole Blood 246 mg/dL (60-115)
[2022-01-14] MEDS: Aspirin 81 MG TAB.CHEW PO (08:15)
[2022-01-14] MEDS: Cholecalciferol (Vitamin D3) 25 MCG TABLET PO (08:15)
[2022-01-14] MEDS: Insulin Lispro 100 UNIT/ML 3 ML VIAL SUBCUT ×3 (08:15→21:11)
[2022-01-14] MEDS: Metoprolol Tartrate 25 MG TABLET PO ×2 (08:15→20:38)
[2022-01-14] MEDS: Apixaban 5 MG TABLET PO ×2 (08:15→20:38)
--- NOTE | 2022-01-14 09:47 | MHC.CM.PN ---
Patient lives in a house with his Brother/HCP/Javed and their Mother, whom they care for. Patient uses a cane at times and has had [facility] in the past. Home/no services is the goal for dc and CM has initiated and will follow for dc planning. IMM addressed with Javed (patient is still in ED) and original will be mailed certified letter to Javed and a copy will be placed on the chart for Patient's review. PCP is Dr. Ramin Medrano and Patient has received [employer] vax X2.
--- NOTE | 2022-01-14 10:41 | PC.NURSE ---
pt desat to 72. RN in room. Pt moving around, and NC dislodged. pt boosted and repositioned. O2 currently at 98 on 3L NC. will continue to monitor.
--- NOTE | 2022-01-14 11:13 | P.PNIM_ITS ---
Subjective Subjective Date of Service: 01/14/22 Interval History: f/u on cellulitis of the foot and suspected osteomylitis of the foot Review of Systems .no fever . some pain in the foot Physical Exam Vital Signs: Vital Signs: Last Vital Signs Temp 103.6 F H 01/14/22 03:37 Pulse 80 01/14/22 09:38 Resp 20 01/14/22 09:38 BP 106/62 01/14/22 09:38 Pulse Ox 100 01/14/22 09:38 BMI result Body Mass Index 27.7 Const: Other: General: AO X 3, no acute distress Resp: CTA bilateral CVS: S1,S2,RRR GI: +BS, NT, no distention Skin: Neuro: motor grossly intact Psych: appropriate affect Objective Data Active Medications Acetaminophen (Acetaminophen 325 Mg Tablet) 650 mg PO Q6H PRN PRN Reason: Pain, Mild (Pain Scale 1-3) Last Admin: 01/14/22 02:29 Dose: 650 mg Documented by: PIPO Apixaban (Apixaban 5 Mg Tablet) 5 mg PO BID [facility] Last Admin: 01/14/22 08:15 Dose: 5 mg Documented by: ALVINA Aspirin (Aspirin 81 Mg Tab.Chew) 81 mg PO DAILY [facility] Last Admin: 01/14/22 08:15 Dose: 81 mg Documented by: ALVINA Dextrose (Dextrose 50 % 25 Gm/50 Ml Vial) 25 gm IVPUSH Q15M PRN; Protocol PRN Reason: per Hypoglycemia Standing Ord. Docusate Sodium (Docusate Sodium 100 Mg Capsule) 100 mg PO DAILY PRN PRN Reason: Constipation Glucose (Glucose Gel 15 Gm Gel..Gram.) 15 gm PO Q15M PRN; Protocol PRN Reason: per Hypoglycemia Standing Ord. Cefepime HCl 1 gm/ Sodium (Chloride) 50 mls @ 100 mls/hr IV Q8H [facility] Last Infusion: 01/14/22 10:24 Dose: 0 mls/hr Documented by: ALVINA Sodium Chloride (Ns) 1,000 mls @ 75 mls/hr IVCONT .[id number] [facility] Last Admin: 01/14/22 00:42 Dose: 75 mls/hr Documented by: PIPO Vancomycin HCl 1,250 mg/ (Sodium Chloride) 250 mls @ 166.667 mls/hr IV Q24H [facility] Insulin Human Lispro (Insulin Lispro 100 Unit/Ml 3 Ml Vial) 0 unit SUBCUT QIDACHS [facility]; Protocol Last Admin: 01/14/22 08:15 Dose: 4 unit Documented by: ALVINA Melatonin (Melatonin 3 Mg Tablet) 6 mg PO BEDTIME PRN PRN Reason: Insomnia Metoprolol Tartrate (Metoprolol Tartrate 25 Mg Tablet) 25 mg PO BID [facility]; Protocol Last Admin: 01/14/22 08:15 Dose: 25 mg Documented by: ALVINA Metoprolol Tartrate (Metoprolol Tartrate 5 Mg/5 Ml Vial) 5 mg IVPUSH Q6H PRN PRN Reason: HR>125 Last Admin: 01/14/22 00:52 Dose: 5 mg Documented by: PIPO Pharmacy Consult (Consult Rx Perform Med Rec) 1 each MISCELLANE ONCE PRN PRN Reason: Consult order Pharmacy Consult (Consult Rx Vancomycin Dosing) 1 each MISCELLANE DAILY PRN PRN Reason: Consult order Sodium Chloride (0.9 % Sodium Chloride Flush 3 Ml Syringe) 3 ml IVFLUSH QSHIFT [facility] Last Admin: 01/14/22 08:15 Dose: 3 ml Documented by: ALVINA Vitamin D (Cholecalciferol (Vitamin D3) 25 Mcg Tablet) 25 mcg PO DAILY [facility] Last Admin: 01/14/22 08:15 Dose: 25 mcg Documented by: ALVINA Labs CBC & Chem 7: 01/14/22 05:54 01/14/22 05:54 Labs: Laboratory Results - last 24 hr 01/13/22 01/13/22 01/13/22 19:16 19:16 19:16 MCV 91.5 MCH 31.2 MCHC 34.0 RDW 13.2 Plt Count 229 MPV 9.1 L Immature Gran % (Auto) 0.4 Neut % (Auto) 88.7 H Lymph % (Auto) 5.6 L [place] % (Auto) 5.0 Eos % (Auto) 0.1 Baso % (Auto) 0.2 Lymph # (Auto) 0.6 L [place] # (Auto) 0.5 Eos # (Auto) 0.0 Baso # (Auto) 0.0 Abs Immat Gran (auto) 0.04 H Absolute Neuts (auto) 9.1 H Absolute Nucleated RBC 0.000 Nucleated RBC % (auto) 0.0 PT INR APTT Anion Gap 17 Estim Creat Clear Calc 68.0 Estimated GFR > 60 POC Glucose Random Glucose 295 H D Estimat Average Glucose Hemoglobin A1c % Lactic Acid 2.4 H* Lactic Acid F/U @ 2Hr Calcium 9.4 D Magnesium 1.7 Total Bilirubin 1.1 H AST 22 D ALT 17 Alkaline Phosphatase 74 Total Protein 7.5 Albumin 4.2 Urine Color Urine Appearance Urine pH Ur Specific [place] Urine Protein Urine Glucose (UA) Urine Ketones Urine Blood Urine Nitrite Ur Leukocyte Esterase Urine RBC Urine WBC Ur Squamous Epith Cells Urine Bacteria COVID-19 ([facility]REEDHAR) COVID-19 Clin Com 01/13/22 01/13/22 01/13/22 19:16 19:16 19:16 MCV MCH MCHC RDW Plt Count MPV Immature Gran % (Auto) Neut % (Auto) Lymph % (Auto) [place] % (Auto) Eos % (Auto) Baso % (Auto) Lymph # (Auto) [place] # (Auto) Eos # (Auto) Baso # (Auto) Abs Immat Gran (auto) Absolute Neuts (auto) Absolute Nucleated RBC Nucleated RBC % (auto) PT 14.0 H INR 1.2 H APTT 38.1 H Anion Gap Estim Creat Clear Calc Estimated GFR POC Glucose Random Glucose Estimat Average Glucose 143 Hemoglobin A1c % 6.6 Lactic Acid Lactic Acid F/U @ 2Hr Calcium Magnesium Total Bilirubin AST ALT Alkaline Phosphatase Total Protein Albumin Urine Color Urine Appearance Urine pH Ur Specific [place] Urine Protein Urine Glucose (UA) Urine Ketones Urine Blood Urine Nitrite Ur Leukocyte Esterase Urine RBC Urine WBC Ur Squamous Epith Cells Urine Bacteria COVID-19 (SREEDHAR) Negative COVID-19 Clin Com See Note 01/13/22 01/13/22 01/14/22 20:44 21:59 05:54 MCV 93.2 MCH 30.9 MCHC 33.1 RDW 13.3 Plt Count 220 MPV 9.2 L Immature Gran % (Auto) 0.6 H Neut % (Auto) 88.9 H Lymph % (Auto) 4.7 L [place] % (Auto) 5.5 Eos % (Auto) 0.1 Baso % (Auto) 0.2 Lymph # (Auto) 0.4 L [place] # (Auto) 0.5 Eos # (Auto) 0.0 Baso # (Auto) 0.0 Abs Immat Gran (auto) 0.05 H Absolute Neuts (auto) 8.1 Absolute Nucleated RBC 0.000 Nucleated RBC % (auto) 0.0 PT INR APTT Anion Gap Estim Creat Clear Calc Estimated GFR POC Glucose Random Glucose Estimat Average Glucose Hemoglobin A1c % Lactic Acid Lactic Acid F/U @ 2Hr 1.4 Calcium Magnesium Total Bilirubin AST ALT Alkaline Phosphatase Total Protein Albumin Urine Color YELLOW Urine Appearance CLEAR Urine pH 5.5 Ur Specific [place] 1.020 Urine Protein TRACE Urine Glucose (UA) 500 H Urine Ketones 5 Urine Blood 3+ H Urine Nitrite NEG Ur Leukocyte Esterase NEG Urine RBC 5-9 H Urine WBC 0 Ur Squamous Epith Cells 1+ Urine Bacteria 1+ COVID-19 (SREEDHAR) COVID-19 [employer] 01/14/22 01/14/22 05:54 07:27 MCV MCH MCHC RDW Plt Count MPV Immature Gran % (Auto) Neut % (Auto) Lymph % (Auto) [place] % (Auto) Eos % (Auto) Baso % (Auto) Lymph # (Auto) [place] # (Auto) Eos # (Auto) Baso # (Auto) Abs Immat Gran (auto) Absolute Neuts (auto) Absolute Nucleated RBC Nucleated RBC % (auto) PT INR APTT Anion Gap 13 Estim Creat Clear Calc 55.8 Estimated GFR 48 POC Glucose 246 H Random Glucose 275 H Estimat Average Glucose Hemoglobin A1c % Lactic Acid Lactic Acid F/U @ 2Hr Calcium 8.5 D Magnesium Total Bilirubin AST ALT Alkaline Phosphatase Total Protein Albumin Urine Color Urine Appearance Urine pH Ur Specific [place] Urine Protein Urine Glucose (UA) Urine Ketones Urine Blood Urine Nitrite Ur Leukocyte Esterase Urine RBC Urine WBC Ur Squamous Epith Cells Urine Bacteria COVID-19 (SREEDHAR) COVID-19 Clin Com Microbiology Microbiology Results: Microbiology 01/13/22 19:37 Blood Culture - Preliminary Blood - Venous Prelim: GPC Gram Stain only Assessment and Plan (1) Cellulitis: Status: Acute Plan 72-year-old male with a past medical history of hypertension, AFib on Eliquis, neuropathy, history of osteomyelitis of the left 2nd toe, history of toe amputation about any ago; peripheral vascular disease, pre diabetes; presented to the hospital today with a chief complaint of generalized weakness.? Noted to have sepsis in the setting of foot infection.? A admitted for further ma nagement.? Sepsis/Left 3rd toe cellulitis: Foot x ray showed:?There is a question of some subtle bone destruction at the distal end of the third most distal phalanx.?concerning for osteomyelitis. Patient was initially febrile to 101.2, tachy to 130s, lactate of 2.4 and therefore meets sepsis criteria Continue IV vancomycin and cefepime.? Cnsult ID and vascular surgery.? Tylenol p.r.n. ?Crhonic AFIB--Continue home metoprolol and Eliquis.? Urinary retention:? Bladder scan showed 788 cc of urine.? Davis catheter.? Urology follow-up. History of prediabetes:? Will obtain hemoglobin A1c.? Insulin sliding scale. DVT prop--Eliquis Quality Stroke Does the patient have a stroke diagnosis?: No VTE Prior VTE?: No VTE Risk Level:: Medical - moderate - high VTE Device Contraindication: Treatment Not Indicated VTE Drug Contraindication: N/A - Med Ordered
--- NOTE | 2022-01-14 12:43 | PC.NURSE ---
pt temperature via catheter probe at 1122 102.2. 650mg PO tylenol given PRN. Temperature at [address] Pichardo notified. Will continue to monitor.
--- NOTE | 2022-01-14 13:01 | PM.CNGS ---
History of Present Illness Consult details Consult date: 01/14/22 Reason for consult: wound care Narrative: Very pleasant 72-year-old gentleman with a prior history of nonhealing left foot ulcer of the left 3rd toe. He originally had a diagnostic angiogram nearly 2 weeks ago with us. He has had this nonhealing ulcer. He had some fevers and weakness yesterday which brought him to the emergency room. He was subsequently worked up and he now presents to us for lower extremity follow-up. Review of Systems Review of Systems: Yes all other systems are reviewed and are negative Constitutional: Constitutional: Reports no additional constitutional complaints ENT: Reports Normal hearing present Cardiovascular: Cardiovascular: Denies chest pain, Denies chest pain at rest, Denies chest pain with activity and Denies pedal edema Respiratory: Respiratory: Denies cough Gastrointestinal: Gastrointestinal: Denies abdominal pain Musculoskeletal: Musculoskeletal: Denies abnormal gait, Denies muscle cramps and Denies radiating pain into limb Integumentary/Breasts: Skin/Breast: Denies skin ulcer and Denies wounds Neurologic: Reports Normal hearing present and Denies abnormal gait Psychiatric: Psychiatric: Reports no additional psychiatric complaints PMFSH Past Medical History Medical History Amputated toe of right foot Amputation of great toe Arrhythmia History of amputation of toe History of heart valve abnormality History of neuropathy Osteomyelitis Osteomyelitis of second toe of left foot Pre-diabetes Ulcer of left second toe Family History Family History Mother No problems noted. Surgical History Surgical History Hx of amputation Status post ORIF of fracture of ankle Social History Social History Household Members: Family Housing: House Do you presently have visiting nurse or other home services: Yes Alcohol intake: never Second Hand Smoke Exposure: No Advance Directives: Yes Advance Directives Information Provided: No Advance Directives on File: No Advance Directives Date on File: 08/07/20 service: No Current occupational status: retired Meds Allergies Allergy/AdvReac Type Severity Reaction Status Date / Time penicillin V Allergy Intermediate rash Verified 12/30/21 11:40 Erythromycin Allergy Intermediate diarrhea Uncoded 03/14/21 10:20 Active Medications: Current Medications Acetaminophen (Acetaminophen 325 Mg Tablet) 650 mg PO Q6H PRN PRN Reason: Pain, Mild (Pain Scale 1-3) Last Admin: 01/14/22 11:22 Dose: 650 mg Documented by: Apixaban (Apixaban 5 Mg Tablet) 5 mg PO BID [facility] Last Admin: 01/14/22 08:15 Dose: 5 mg Documented by: Aspirin (Aspirin 81 Mg Tab.Chew) 81 mg PO DAILY [facility] Last Admin: 01/14/22 08:15 Dose: 81 mg Documented by: Dextrose (Dextrose 50 % 25 Gm/50 Ml Vial) 25 gm IVPUSH Q15M PRN; Protocol PRN Reason: per Hypoglycemia Standing Ord. Docusate Sodium (Docusate Sodium 100 Mg Capsule) 100 mg PO DAILY PRN PRN Reason: Constipation Glucose (Glucose Gel 15 Gm Gel..Gram.) 15 gm PO Q15M PRN; Protocol PRN Reason: per Hypoglycemia Standing Ord. Cefepime HCl 1 gm/ Sodium (Chloride) 50 mls @ 100 mls/hr IV Q8H [facility] Last Infusion: 01/14/22 10:24 Dose: Infused Documented by: Sodium Chloride (Ns) 1,000 mls @ 75 mls/hr IVCONT .[id number] [facility] Last Admin: 01/14/22 00:42 Dose: 75 mls/hr Documented by: Vancomycin HCl 1,250 mg/ (Sodium Chloride) 250 mls @ 166.667 mls/hr IV Q24H [facility] Insulin Human Lispro (Insulin Lispro 100 Unit/Ml 3 Ml Vial) 0 unit SUBCUT QIDACHS [facility]; Protocol Last Admin: 01/14/22 08:15 Dose: 4 unit Documented by: Melatonin (Melatonin 3 Mg Tablet) 6 mg PO BEDTIME PRN PRN Reason: Insomnia Metoprolol Tartrate (Metoprolol Tartrate 25 Mg Tablet) 25 mg PO BID [facility]; Protocol Last Admin: 01/14/22 08:15 Dose: 25 mg Documented by: Metoprolol Tartrate (Metoprolol Tartrate 5 Mg/5 Ml Vial) 5 mg IVPUSH Q6H PRN PRN Reason: HR>125 Last Admin: 01/14/22 00:52 Dose: 5 mg Documented by: Pharmacy Consult (Consult Rx Perform Med Rec) 1 each MISCELLANE ONCE PRN PRN Reason: Consult order Pharmacy Consult (Consult Rx Vancomycin Dosing) 1 each MISCELLANE DAILY PRN PRN Reason: Consult order Sodium Chloride (0.9 % Sodium Chloride Flush 3 Ml Syringe) 3 ml IVFLUSH QSHIFT [facility] Last Admin: 01/14/22 08:15 Dose: 3 ml Documented by: Vitamin D (Cholecalciferol (Vitamin D3) 25 Mcg Tablet) 25 mcg PO DAILY [facility] Last Admin: 01/14/22 08:15 Dose: 25 mcg Documented by: Home Medications Medication Instructions Recorded Confirmed Last Taken Type cholecalciferol (vitamin D3) 25 25 mcg PO DAILY 10/23/20 01/13/22 01/13/22 History mcg (1,000 unit) capsule lancets 28 gauge #100 ea 03/14/21 12/09/21 Unknown History Physical Exam Vital Signs: Vital Signs: Last Vital Signs Temp 102.4 F H 01/14/22 12:14 Pulse 106 H 01/14/22 12:14 Resp 18 01/14/22 12:14 BP 110/71 01/14/22 12:14 Pulse Ox 97 01/14/22 12:14 BMI result Body Mass Index 27.7 Const: General: cooperative, healthy appearing and comfortable Orientation/consciousness: oriented to person, oriented to place and oriented to time HENMT: Head: Yes normal to inspection Neck: Neck: Yes normal visual inspection Carotids: no bruits Chest: Chest palpation & inspection: normal inspection of the chest Resp: Effort & Inspection: normal respiratory effort and able to speak in complete sentences Auscultation: clear to auscultation bilaterally, no crackles, no rales, no rhonchi and no wheezes Cardio: Rate: regular rate Rhythm: regular rhythm Heart sounds: S1 normal heart sound present and S2 normal heart sound present Bruits: no carotid bruits Peripheral pulses: dorsalis pedis present (Bilateral DP signals only) GI: Inspection: Yes normal to inspection Skin: Wounds: wounds noted (Left 3rd toe nonhealing ulcer) Hair: normal Neuro: General: oriented to person, oriented to place and oriented to time Cranial nerves: Yes CN's II-XII intact bilaterally and Yes Normal hearing present Cognition (Neuro): normal cognition Motor exam (neuro): 5/5 motor strength present throughout Extrem: Other: venous exam: No significant superficial varicosities or spider telangiectasias, minimal edema General: No clubbing, No cyanosis and No edema Psych: Appearance: grossly normal Mental Status: mental status grossly normal Speech and movement: Normal speech and movement present Results Labs Result diagrams: 01/14/22 05:54 01/14/22 05:54 Labs: Abnormal lab results 01/13/22 01/13/22 01/13/22 Range/Units 19:16 19:16 19:16 RBC 4.14 L (4.60-5.80) X10*6/uL Hgb 12.9 L (14.0-18.0) g/dl Hct 37.9 L (42.0-52.0) % MPV 9.1 L (9.4-12.4) fL Immature Gran % (Auto) (0.0-0.4) % Neut % (Auto) 88.7 H (45-73) % Lymph % (Auto) 5.6 L (20-40) % Lymph # (Auto) 0.6 L (1.2-4.9) X10*3/uL Abs Immat Gran (auto) 0.04 H (0.00-0.03) X10*3/uL Absolute Neuts (auto) 9.1 H (2.0-8.3) x10*3/uL PT (9.9-13.0) SEC INR (0.9-1.1) APTT (24.1-38.0) SEC Sodium 133 L (135-145) mmol/L BUN 19 H (9-16) mg/dL Creatinine (0.5-1.4) mg/dL POC Glucose (60-115) mg/dL Random Glucose 295 H D (60-115) mg/dL Lactic Acid 2.4 H* (0.5-2.0) mmol/L Total Bilirubin 1.1 H (0.0-1.0) mg/dL Urine Glucose (UA) (NEG) MG/DL Urine Blood (NEG) Urine RBC (0) /HPF 01/13/22 01/13/22 01/14/22 Range/Units 19:16 20:44 05:54 RBC 3.69 L (4.60-5.80) X10*6/uL Hgb 11.4 L (14.0-18.0) g/dl Hct 34.4 L (42.0-52.0) % MPV 9.2 L (9.4-12.4) fL Immature Gran % (Auto) 0.6 H (0.0-0.4) % Neut % (Auto) 88.9 H (45-73) % Lymph % (Auto) 4.7 L (20-40) % Lymph # (Auto) 0.4 L (1.2-4.9) X10*3/uL Abs Immat Gran (auto) 0.05 H (0.00-0.03) X10*3/uL Absolute Neuts (auto) (2.0-8.3) x10*3/uL PT 14.0 H (9.9-13.0) SEC INR 1.2 H (0.9-1.1) APTT 38.1 H (24.1-38.0) SEC Sodium (135-145) mmol/L BUN (9-16) mg/dL Creatinine (0.5-1.4) mg/dL POC Glucose (60-115) mg/dL Random Glucose (60-115) mg/dL Lactic Acid (0.5-2.0) mmol/L Total Bilirubin (0.0-1.0) mg/dL Urine Glucose (UA) 500 H (NEG) MG/DL Urine Blood 3+ H (NEG) Urine RBC 5-9 H (0) /HPF 01/14/22 01/14/22 Range/Units 05:54 07:27 RBC (4.60-5.80) X10*6/uL Hgb (14.0-18.0) g/dl Hct (42.0-52.0) % MPV (9.4-12.4) fL Immature Gran % (Auto) (0.0-0.4) % Neut % (Auto) (45-73) % Lymph % (Auto) (20-40) % Lymph # (Auto) (1.2-4.9) X10*3/uL Abs Immat Gran (auto) (0.00-0.03) X10*3/uL Absolute Neuts (auto) (2.0-8.3) x10*3/uL PT (9.9-13.0) SEC INR (0.9-1.1) APTT (24.1-38.0) SEC Sodium (135-145) mmol/L BUN 22 H (9-16) mg/dL Creatinine 1.45 H (0.5-1.4) mg/dL POC Glucose 246 H (60-115) mg/dL Random Glucose 275 H (60-115) mg/dL Lactic Acid (0.5-2.0) mmol/L Total Bilirubin (0.0-1.0) mg/dL Urine Glucose (UA) (NEG) MG/DL Urine Blood (NEG) Urine RBC (0) /HPF Short CBC 01/13/22 01/14/22 Range/Units 19:16 05:54 WBC 10.3 9.1 (4.8-10.8) X10*3/uL Hgb 12.9 L 11.4 L (14.0-18.0) g/dl Hct 37.9 L 34.4 L (42.0-52.0) % Plt Count 229 220 (160-400) X10*3/uL BMP 01/13/22 01/14/22 19:16 05:54 Sodium 133 L 136 Potassium 4.6 3.8 Chloride 99 105 Carbon Dioxide 22 22 BUN 19 H 22 H Creatinine 1.19 1.45 H Calcium 9.4 D 8.5 D Liver Function 01/13/22 Range/Units 19:16 Total Bilirubin 1.1 H (0.0-1.0) mg/dL AST 22 D (5-37) U/L ALT 17 (0-40) U/L Alkaline Phosphatase 74 (39-117) U/L Albumin 4.2 (3.5-5.0) g/dL Urine 01/13/22 Range/Units 20:44 Urine Color YELLOW Urine Appearance CLEAR Urine pH 5.5 (5.0-8.0) Ur Specific [place] 1.020 (1.005-1.025) Urine Protein TRACE (NEG-TRACE) MG/DL Urine Glucose (UA) 500 H (NEG) MG/DL All other labs normal. Assessment and Plan (1) PVD (peripheral vascular disease): Status: Acute In short patient had undergone diagnostic angiogram on 12/30/2021. At that time there was adequate a supply to heal the foot. Would recommend continued antibiotics. He will require amputation of that left 3rd toe. Would also investigate other sources of fever. We will follow with you. Of note I will be away and Dr. Wylie will be covering in my interim. Thank you for allowing us to participate in his care. If there are any questions or concerns please do not hesitate to contact us. Wound care orders written Procedures Date of Service Date of Service: 01/14/22
[2022-01-14 13:23] LABS: Glucose, Whole Blood 185 mg/dL (60-115)
[2022-01-14 18:26] LABS: Glucose, Whole Blood 142 mg/dL (60-115)
[2022-01-14 21:04] LABS: Glucose, Whole Blood 241 mg/dL (60-115)
[2022-01-14] MEDS: vancomycin HCL 1,250 MG in 0.9 % Sodium Chloride 250 ML 166.67 MG IV (23:26)
[2022-01-15] VITALS (7 sets, daily range): BP systolic 113–138; BP diastolic 56–60; PULSE 83–102; RESP 16–21; TEMP 36.4–37.3; O2SAT 96–99
[2022-01-15] MEDS: 0.9 % Sodium Chloride 1,000 ML 75 ML IVCONT ×2 (03:14→17:45)
--- NOTE | 2022-01-15 04:03 | PC.NURSE ---
This rn took over patient's care at 0030, patient alert, denies pain or discomfort at this time. Patient repositioned with 2 assist, skin care provided. IVF NS @ 75 currently running, vss. Call aguilar within reach.
[2022-01-15] MEDS: cefEPime HCl 1 GM in 0.9 % Sodium Chloride 50 ML IV (07:27)
[2022-01-15] MEDS: Insulin Lispro 100 UNIT/ML 3 ML VIAL SUBCUT ×3 (07:37→16:56)
[2022-01-15] MEDS: 0.9 % Sodium Chloride Flush 3 ML SYRINGE IVFLUSH ×2 (07:41→20:21)
[2022-01-15 07:57] LABS: Glucose, Whole Blood 172 mg/dL (60-115)
[2022-01-15 08:38] LABS: Creatinine Clr Calc Pharmacy 83.4; Estimated Glomerular Filt Rate > 60
--- NOTE | 2022-01-15 09:15 | CA_ITS ---
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 The calculated ejection fraction is 60% by biplane method. - The mitral valve appears myxomatous. There is moderate anterior and mild posterior mitral leaflet thickening. There is mild mitral annular calcification. There is no mitral valve stenosis. No significant regurgitation noted. - No clear evidence of vegetations. Findings Left Ventricle Normal left ventricular cavity size. There is mildly increased left ventricular wall thickness. The left ventricular systolic function is normal. The calculated ejection fraction is 60% by biplane method. There is no evidence of regional wall motion abnormalities. Diastolic function is normal for age. Right Ventricle Normal right ventricular cavity size and systolic function. Atria Both atria are normal in size. Aortic Valve There is a normal trileaflet aortic valve. There is no aortic valve stenosis. The mean gradient is 4 mmHg. There is no aortic valve regurgitation. Mitral Valve The mitral valve appears myxomatous. There is moderate anterior and mild posterior mitral leaflet thickening. There is mild mitral annular calcification. There is no mitral valve stenosis. No significant regurgitation noted. Pulmonic Valve The pulmonic valve was not well visualized. Tricuspid Valve There is trace tricuspid valve regurgitation. The pulmonary artery systolic pressure is normal. Great Vessels The sinuses of valsalva and asc aorta are normal in size. Venous The inferior vena cava is normal in size and collapses greater than 50% with inspiration. Pericardium/Pleural There is no evidence of pericardial effusion. Prior Study Comparison No significant change compared to prior study dated: 01/08/2021. Recommendations, Care & Conclusions Consider a JAIME if clinically appropriate. Measurements 2D Linear Measurements IVSd: 1.27 0.6-0.9/0.6-1.0 cm LVIDd: 4.88 3.9-5.3/4.2-5.9 cm LVIDd Index: 2.13 2.4-3.2/2.2-3.1 cm/m2 LVIDs: 3.12 2.0-3.6 cm LVPWd: 1.26 0.7-1.1 cm LA Diam: 3.70 2.7-3.8/3.0-4.0 cm LAIDs Index: 1.62 1.5-2.3 cm/m2 LV Mass: 302.28 67-162/88-224 g LV Mass Index: 132.00 43-95/49-115 g/m2 LVOT Diam: 2.60 3.0+(-)1.3 cm 2D Systolic Function EF 4C: 66.80 >55% EF 2C: 54.20 >55% EF BiP: 59.90 >55% Mitral Valve MV Pk E: 0.83 MV PK A: 1.22 MV Decel Time: 153.00 E/A: 0.70 E'Lateral: 8.16 E'Medial: 4.46 E/E' Med: 18.50 E/E' Lat: 10.10 PHT: 45.00 MVA PHT: 4.89 Decel [place]: 5.41 Aortic Valve AoV Pk Henry: 1.44 AoV Mn Henry: 0.91 AoV VTI: 0.25 AoV Pk Grad: 8.00 Aov Mn Grad: 4.00 MASON Cont.VTI: 4.62 LVOT LVOT Pk Henry: 1.11 LVOT Mn Henry: 0.71 LVOT VTI: 0.22 LVOT Pk Grad: 5.00 LVOT Mn Grad: 2.00 LVOT Diam: 2.60 LVOT Area: 5.31 Diastolic Function MV Pk E: 0.83 MV Pk A: 1.22 E/A: 0.70 E'Medial: 4.46 E/E' Med: 18.50 E' Laterial: 8.16 E/E' Lat: 10.10 Tricuspid Valve TR Pk Henry: 2.75 TR Pk Grad: 30.00 RA Press: 3.00 RVSP: 33.00 Great Vessels Aorta Sinus of Valsalva: 3.40 2.0-3.[address] [place]: 3.20 1.7-3.4 cm Pulmonary Valve PV Pk Henry: 1.45 Peak PV Grad: 8.00 Updated in Other Vendor System with Status of Final Darius Chaves MD electronically signed on 01/15/2022 12:33:14 PM with status of Final
[2022-01-15] MEDS: Apixaban 5 MG TABLET PO ×2 (09:43→20:18)
[2022-01-15] MEDS: Metoprolol Tartrate 25 MG TABLET PO ×2 (09:44→20:18)
[2022-01-15] MEDS: Cholecalciferol (Vitamin D3) 25 MCG TABLET PO (09:44)
[2022-01-15] MEDS: Aspirin 81 MG TAB.CHEW PO (09:44)
--- NOTE | 2022-01-15 09:55 | P.CDIC_ITS ---
CDI Concurrent Query Documentation Clarification: PHYSICIAN'S DOCUMENTATION REQUEST Date of Query: 01/15/22 0955 Patient Name: Shashank Fregoso Admit Date: 01/13/22 Dear Doctor, A review of the medical record indicates additional documentation may be needed. Please review below and update the documentation accordingly. Risk Factors/Clinical Indicators/Treatments x-ray left foot: ? concern for osteomyelitis per MD progress note 01/14/22: suspected osteomyelitis of foot Based on the above, could you clarify in the Progress Notes the appropriate diagnosis, if significant, that supports the above abnormalities and additional evaluation, monitoring, and/or treatment rendered: * Acute Osteomyelitis * Chronic Osteomyelitis * Other (please specify) * Unable to determine Use of terms such as suspected, likely, concern for, or probable (associated with a specific diagnosis that is being evaluated, monitored, or treated as if it exists) are acceptable and can be coded in the inpatient setting, when documented at the time of discharge. Thank you, Nikky Del Rio RN Extension: [phone] Please use your independent medical judgment in providing your response. THIS QUERY IS PART OF THE PERMANENT MEDICAL RECORD Provider Response: Other Other Diagnosis: Acute osteomylitis
--- NOTE | 2022-01-15 10:35 | HO.VASCPN ---
Subjective Subjective Date of Service: 01/15/22 Patient reports: no new complaints and feels better Interval history: Patient seen and examined. No significant events overnight. Reports that he is doing relatively well. Pain and discomfort in the left foot is improved. He has been maintained on antibiotics. Physical Exam Vital Signs: Vital Signs: Last Vital Signs Temp 97.6 F 01/15/22 08:27 Pulse 98 01/15/22 08:27 Resp 16 01/15/22 08:27 BP 138/57 L 01/15/22 08:27 Pulse Ox 97 01/15/22 08:27 BMI result Body Mass Index 27.7 Const: General: cooperative, healthy appearing and no acute distress Orientation/consciousness: oriented to person, oriented to place and oriented to time HENMT: Head: Yes normal to inspection Neck: Carotids: no bruits Chest: Chest palpation & inspection: normal inspection of the chest Resp: Effort & Inspection: normal respiratory effort and able to speak in complete sentences Auscultation: clear to auscultation bilaterally Cardio: Rate: regular rate Heart sounds: S1 normal heart sound present and S2 normal heart sound present GI: Inspection: Yes normal to inspection Skin: General skin exam: no rashes or lesions noted Wounds: wounds noted (Left 3rd toe with exposed bone) Neuro: General: oriented to person, oriented to place, oriented to time and CN's II-XI intact bilaterally Extrem: General: Yes normal to inspection, Yes full ROM and Yes no clubbing, cyanosis or edema Psych: Appearance: grossly normal and well kempt Speech and movement: Normal speech and movement present Affect: normal affect Progress Note: A&P Assessment and plan (1) PVD (peripheral vascular disease): Status: Acute Assessment and Plan: In short patient is doing well with antibiotics. He will require left 3rd toe amputation. I I will be away starting this evening. Dr. Wylie will be my covering doctor. This case was referred to him. Thank you for allowing us to assist in his care. If there are any questions or concerns please do not hesitate to contact us. Fall Risk Details Current Medications: Current Medications Acetaminophen (Acetaminophen 325 Mg Tablet) 650 mg PO Q6H PRN PRN Reason: Pain, Mild (Pain Scale 1-3) Last Admin: 01/14/22 11:22 Dose: 650 mg Documented by: Apixaban (Apixaban 5 Mg Tablet) 5 mg PO BID [facility] Last Admin: 01/15/22 09:43 Dose: 5 mg Documented by: Aspirin (Aspirin 81 Mg Tab.Chew) 81 mg PO DAILY [facility] Last Admin: 01/15/22 09:44 Dose: 81 mg Documented by: Dextrose (Dextrose 50 % 25 Gm/50 Ml Vial) 25 gm IVPUSH Q15M PRN; Protocol PRN Reason: per Hypoglycemia Standing Ord. Docusate Sodium (Docusate Sodium 100 Mg Capsule) 100 mg PO DAILY PRN PRN Reason: Constipation Glucose (Glucose Gel 15 Gm Gel..Gram.) 15 gm PO Q15M PRN; Protocol PRN Reason: per Hypoglycemia Standing Ord. Cefepime HCl 1 gm/ Sodium (Chloride) 50 mls @ 100 mls/hr IV Q8H [facility] Last Admin: 01/15/22 07:27 Dose: 100 mls/hr Documented by: Sodium Chloride (Ns) 1,000 mls @ 75 mls/hr IVCONT .[id number] [facility] Last Admin: 01/15/22 03:14 Dose: 75 mls/hr Documented by: Vancomycin HCl 1,250 mg/ (Sodium Chloride) 250 mls @ 166.667 mls/hr IV Q24H [facility] Last Infusion: 01/15/22 01:47 Dose: Infused Documented by: Insulin Human Lispro (Insulin Lispro 100 Unit/Ml 3 Ml Vial) 0 unit SUBCUT QIDACHS [facility]; Protocol Last Admin: 01/15/22 07:37 Dose: 2 unit Documented by: Melatonin (Melatonin 3 Mg Tablet) 6 mg PO BEDTIME PRN PRN Reason: Insomnia Metoprolol Tartrate (Metoprolol Tartrate 25 Mg Tablet) 25 mg PO BID [facility]; Protocol Last Admin: 01/15/22 09:44 Dose: 25 mg Documented by: Metoprolol Tartrate (Metoprolol Tartrate 5 Mg/5 Ml Vial) 5 mg IVPUSH Q6H PRN PRN Reason: HR>125 Last Admin: 01/14/22 00:52 Dose: 5 mg Documented by: Pharmacy Consult (Consult Rx Perform Med Rec) 1 each MISCELLANE ONCE PRN PRN Reason: Consult order Pharmacy Consult (Consult Rx Vancomycin Dosing) 1 each MISCELLANE DAILY PRN PRN Reason: Consult order Sodium Chloride (0.9 % Sodium Chloride Flush 3 Ml Syringe) 3 ml IVFLUSH QSHIFT [facility] Last Admin: 01/15/22 07:41 Dose: 3 ml Documented by: Vitamin D (Cholecalciferol (Vitamin D3) 25 Mcg Tablet) 25 mcg PO DAILY [facility] Last Admin: 01/15/22 09:44 Dose: 25 mcg Documented by: Time Spent With Patient Time: Total time spent is greater than 50% in coordination of care (as documented) at patient's floor/unit and/or counseling patient: Time with patient: 15 - 24 minutes Procedures Date of Service Date of Service: 01/15/22 Quality Stroke Does the patient have a stroke diagnosis?: No VTE Prior VTE?: No VTE Risk Level:: Medical - moderate - high VTE Device Contraindication: Treatment Not Indicated VTE Drug Contraindication: N/A - Med Ordered
--- NOTE | 2022-01-15 10:53 | HO.PM.IMPN ---
Subjective Subjective Date of Service: 01/15/22 Interval History: f/u on cellulitis of the foot and suspected osteomylitis of the foot Physical Exam Vital Signs: Vital Signs: Last Vital Signs Temp 97.6 F 01/15/22 08:27 Pulse 98 01/15/22 08:27 Resp 16 01/15/22 08:27 BP 138/57 L 01/15/22 08:27 Pulse Ox 97 01/15/22 08:27 BMI result Body Mass Index 27.7 Const: Other: General: AO X 3, no acute distress Resp: CTA bilateral CVS: S1,S2,RRR GI: +BS, NT, no distention Skin: Neuro: motor grossly intact Psych: appropriate affect Objective Data Active Medications Acetaminophen (Acetaminophen 325 Mg Tablet) 650 mg PO Q6H PRN PRN Reason: Pain, Mild (Pain Scale 1-3) Last Admin: 01/14/22 11:22 Dose: 650 mg Documented by: ALVINA Apixaban (Apixaban 5 Mg Tablet) 5 mg PO BID [facility] Last Admin: 01/15/22 09:43 Dose: 5 mg Documented by: TROY Aspirin (Aspirin 81 Mg Tab.Chew) 81 mg PO DAILY [facility] Last Admin: 01/15/22 09:44 Dose: 81 mg Documented by: TROY Dextrose (Dextrose 50 % 25 Gm/50 Ml Vial) 25 gm IVPUSH Q15M PRN; Protocol PRN Reason: per Hypoglycemia Standing Ord. Docusate Sodium (Docusate Sodium 100 Mg Capsule) 100 mg PO DAILY PRN PRN Reason: Constipation Glucose (Glucose Gel 15 Gm Gel..Gram.) 15 gm PO Q15M PRN; Protocol PRN Reason: per Hypoglycemia Standing Ord. Cefepime HCl 1 gm/ Sodium (Chloride) 50 mls @ 100 mls/hr IV Q8H [facility] Last Admin: 01/15/22 07:27 Dose: 100 mls/hr Documented by: TROY Sodium Chloride (Ns) 1,000 mls @ 75 mls/hr IVCONT .[id number] [facility] Last Admin: 01/15/22 03:14 Dose: 75 mls/hr Documented by: ANDREA Vancomycin HCl 1,250 mg/ (Sodium Chloride) 250 mls @ 166.667 mls/hr IV Q24H [facility] Last Infusion: 01/15/22 01:47 Dose: 0 mls/hr Documented by: ANDREA Insulin Human Lispro (Insulin Lispro 100 Unit/Ml 3 Ml Vial) 0 unit SUBCUT QIDACHS [facility]; Protocol Last Admin: 01/15/22 07:37 Dose: 2 unit Documented by: TROY Melatonin (Melatonin 3 Mg Tablet) 6 mg PO BEDTIME PRN PRN Reason: Insomnia Metoprolol Tartrate (Metoprolol Tartrate 25 Mg Tablet) 25 mg PO BID [facility]; Protocol Last Admin: 01/15/22 09:44 Dose: 25 mg Documented by: TROY Metoprolol Tartrate (Metoprolol Tartrate 5 Mg/5 Ml Vial) 5 mg IVPUSH Q6H PRN PRN Reason: HR>125 Last Admin: 01/14/22 00:52 Dose: 5 mg Documented by: PIPO Pharmacy Consult (Consult Rx Perform Med Rec) 1 each MISCELLANE ONCE PRN PRN Reason: Consult order Pharmacy Consult (Consult Rx Vancomycin Dosing) 1 each MISCELLANE DAILY PRN PRN Reason: Consult order Sodium Chloride (0.9 % Sodium Chloride Flush 3 Ml Syringe) 3 ml IVFLUSH QSHIFT [facility] Last Admin: 01/15/22 07:41 Dose: 3 ml Documented by: TROY Vitamin D (Cholecalciferol (Vitamin D3) 25 Mcg Tablet) 25 mcg PO DAILY [facility] Last Admin: 01/15/22 09:44 Dose: 25 mcg Documented by: TROY Labs CBC & Chem 7: 01/14/22 05:54 01/15/22 08:10 Labs: Laboratory Results - last 24 hr 01/14/22 01/14/22 01/14/22 13:15 18:23 21:00 Estim Creat Clear Calc Estimated GFR POC Glucose 185 H 142 H 241 H 01/15/22 01/15/22 07:34 08:10 Estim Creat Clear Calc 83.4 Estimated GFR > 60 POC Glucose 172 H Microbiology Microbiology Results: Microbiology 01/13/22 19:37 Blood Culture - Preliminary Blood - Venous Staphylococcus species 01/13/22 19:18 Blood Culture - Preliminary Blood - Venous Staphylococcus species Assessment and Plan (1) PVD (peripheral vascular disease): Status: Acute (2) Cellulitis: Status: Acute Plan 72-year-old male with a past medical history of hypertension, AFib on Eliquis, neuropathy, history of osteomyelitis of the left 2nd toe, history of toe amputation about any ago; peripheral vascular disease, pre diabetes; presented to the hospital today with a chief complaint of generalized weakness.? Noted to have sepsis in the setting of foot infection.? A admitted for further management.? Sepsis/Left 3rd toe cellulitis and proable acute osteomylitis of 3rd toe and gram positive cocci bacteremia -Continue Vanco and Zosyn until sensitivity available, -He will require ampuation at later time, Dr. Wylie will be doing this for Dr. Jennifer Mandujano to rule out endocariditis ?Chronic AFIB--Continue home metoprolol and Eliquis.? Urinary retention:? Bladder scan showed 788 cc of urine.? Davis catheter.? Urology follow-up. History of prediabetes:? Will obtain hemoglobin A1c.? Insulin sliding scale. DVT prop--Eliquis Need for inpatient; for IV Abx for sepsis, osteomylitis and eventual need for ampuatation after holding eliquis Quality Stroke Does the patient have a stroke diagnosis?: No VTE Prior VTE?: No VTE Risk Level:: Medical - moderate - high VTE Device Contraindication: Treatment Not Indicated VTE Drug Contraindication: N/A - Med Ordered
--- NOTE | 2022-01-15 12:01 | PC.NURSE ---
alert, speech clear, ate breakfast, nad, now sleeping, sr on monitor w occasional pvc's
[2022-01-15 12:06] LABS: Glucose, Whole Blood 192 mg/dL (60-115)
--- NOTE | 2022-01-15 14:18 | P.CNID_ITS ---
History of Present Illness Data of Consult Service Date: 01/14/22 Requesting physician: Aditya Pichardo Primary Care Provider: Unknown Physician HPI Reason for consult: bacteremia,sepsis He presents with fever and weakness and left third toe erythema. He has had surgery on foot in past due to infection. He has bacteremia,staph species Review of Systems Review of Systems: Yes all other systems are reviewed and are negative PMFSH Past Medical History Medical History (Updated 01/15/22 @ 14:26 by Danisha Gomez MD) Amputated toe of right foot Amputation of great toe Arrhythmia History of amputation of toe History of heart valve abnormality History of neuropathy Osteomyelitis Osteomyelitis Osteomyelitis of second toe of left foot Pre-diabetes Ulcer of left second toe Family History Family History Mother No problems noted. Family history: reviewed and not pertinent Surgical History Surgical History Hx of amputation Status post ORIF of fracture of ankle Social History Social History Household Members: Family Housing: House Do you presently have visiting nurse or other home services: Yes Alcohol intake: never Second Hand Smoke Exposure: No Advance Directives Date on File: 08/07/20 service: No Current occupational status: retired Meds Allergies Allergy/AdvReac Type Severity Reaction Status Date / Time penicillin V Allergy Intermediate rash Verified 12/30/21 11:40 Erythromycin Allergy Intermediate diarrhea Uncoded 03/14/21 10:20 Active Medications: Current Medications Acetaminophen (Acetaminophen 325 Mg Tablet) 650 mg PO Q6H PRN PRN Reason: Pain, Mild (Pain Scale 1-3) Last Admin: 01/14/22 11:22 Dose: 650 mg Documented by: Apixaban (Apixaban 5 Mg Tablet) 5 mg PO BID [facility] Last Admin: 01/15/22 09:43 Dose: 5 mg Documented by: Aspirin (Aspirin 81 Mg Tab.Chew) 81 mg PO DAILY [facility] Last Admin: 01/15/22 09:44 Dose: 81 mg Documented by: Dextrose (Dextrose 50 % 25 Gm/50 Ml Vial) 25 gm IVPUSH Q15M PRN; Protocol PRN Reason: per Hypoglycemia Standing Ord. Docusate Sodium (Docusate Sodium 100 Mg Capsule) 100 mg PO DAILY PRN PRN Reason: Constipation Glucose (Glucose Gel 15 Gm Gel..Gram.) 15 gm PO Q15M PRN; Protocol PRN Reason: per Hypoglycemia Standing Ord. Cefepime HCl 1 gm/ Sodium (Chloride) 50 mls @ 100 mls/hr IV Q8H [facility] Last Infusion: 01/15/22 08:00 Dose: Infused Documented by: Sodium Chloride (Ns) 1,000 mls @ 75 mls/hr IVCONT .[id number] [facility] Last Admin: 01/15/22 03:14 Dose: 75 mls/hr Documented by: Vancomycin HCl 1,250 mg/ (Sodium Chloride) 250 mls @ 166.667 mls/hr IV Q24H [facility] Last Infusion: 01/15/22 01:47 Dose: Infused Documented by: Insulin Human Lispro (Insulin Lispro 100 Unit/Ml 3 Ml Vial) 0 unit SUBCUT QIDACHS [facility]; Protocol Last Admin: 01/15/22 13:17 Dose: 2 unit Documented by: Melatonin (Melatonin 3 Mg Tablet) 6 mg PO BEDTIME PRN PRN Reason: Insomnia Metoprolol Tartrate (Metoprolol Tartrate 25 Mg Tablet) 25 mg PO BID [facility]; Protocol Last Admin: 01/15/22 09:44 Dose: 25 mg Documented by: Metoprolol Tartrate (Metoprolol Tartrate 5 Mg/5 Ml Vial) 5 mg IVPUSH Q6H PRN PRN Reason: HR>125 Last Admin: 01/14/22 00:52 Dose: 5 mg Documented by: Pharmacy Consult (Consult Rx Perform Med Rec) 1 each MISCELLANE ONCE PRN PRN Reason: Consult order Pharmacy Consult (Consult Rx Vancomycin Dosing) 1 each MISCELLANE DAILY PRN PRN Reason: Consult order Sodium Chloride (0.9 % Sodium Chloride Flush 3 Ml Syringe) 3 ml IVFLUSH QSHIFT [facility] Last Admin: 01/15/22 07:41 Dose: 3 ml Documented by: Vitamin D (Cholecalciferol (Vitamin D3) 25 Mcg Tablet) 25 mcg PO DAILY [facility] Last Admin: 01/15/22 09:44 Dose: 25 mcg Documented by: Home Medications Medication Instructions Recorded Confirmed Last Taken Type cholecalciferol (vitamin D3) 25 25 mcg PO DAILY 10/23/20 01/13/22 01/13/22 History mcg (1,000 unit) capsule lancets 28 gauge #100 ea 03/14/21 12/09/21 Unknown History Physical Exam Vital Signs: Vital Signs: Last Vital Signs Temp 97.8 F 01/15/22 12:04 Pulse 83 01/15/22 12:04 Resp 20 01/15/22 12:04 BP 138/57 L 01/15/22 12:04 Pulse Ox 97 01/15/22 12:04 BMI result Body Mass Index 27.7 Eyes: General: appearance normal, both eyes and all related structures Resp: Effort & Inspection: normal respiratory effort Cardio: Rate: regular rate GI: Palpation (GI): Soft to palpation and nontender Neuro: Other: neuropathy feet Extrem: Other: reddened left third toe Results Labs CBC & Chem 7: 01/14/22 05:54 01/15/22 08:10 Labs: BMP 01/15/22 08:10 Creatinine 0.97 Microbiology Microbiology Results: Microbiology 01/13/22 19:37 Blood - Venous Blood Culture - Preliminary Staphylococcus species 01/13/22 19:18 Blood - Venous Blood Culture - Preliminary Staphylococcus species Assessment and Plan (1) Fever: Status: Acute (2) Cellulitis: Status: Acute (3) Osteomyelitis: Status: Acute He likely has osteomyelitis third toe. Organisms are possible staph or strep Bacteremia likely due to foot infection,endocarditis is risk Plan Would give IV Vancomycin and await results of blood culture Echo. Line and six weeks IV antibiotics
--- NOTE | 2022-01-15 16:17 | PM.EVENT ---
Event Note Date of Service: 01/15/22 Event Note: patient and examined has cellulitic changes of the 3rd toe distally note of thick fibrinous exudates and ulcer seen by Dr. Rodriguez - toe amp recommended in view of exposed bone, osteomyelitis of the distal phalanx some improvement with IV antibiotics patient has been on Eliquis hold anti coagulant plan toe amp on Thursday?
[2022-01-15 16:28] LABS: Glucose, Whole Blood 193 mg/dL (60-115)
[2022-01-15 20:44] LABS: Glucose, Whole Blood 145 mg/dL (60-115)
[2022-01-15 21:32] LABS: Vancomycin Trough 6.9 mcg/mL (10.0-20.0)
[2022-01-15] MEDS: vancomycin HCL 1,500 MG in 0.9 % Sodium Chloride 500 ML 333.33 MG IV (22:44)
[2022-01-16 04:00] VITALS: BP 127/65; PULSE 87; RESP 18; TEMP 36.4; O2SAT 98
[2022-01-16 06:30] LABS: Estimated Glomerular Filt Rate > 60
[2022-01-16 07:35] VITALS: BP 109/61; PULSE 102; RESP 19; TEMP 37.1; O2SAT 99
[2022-01-16 07:36] LABS: Glucose, Whole Blood 145 mg/dL (60-115)
--- NOTE | 2022-01-16 07:43 | PHA.PROG ---
Admission Date/Time: January 13, 2022 22:21 Indication: Bone and Joint Infection Weight in k.6 kg Adjusted body weight in Kg: [place] body weight in Kg: Obesity Dosing Indication % IBW: Serum Creatinine - Last 168 Hours 01/13/22 01/14/22 01/15/22 19:16 05:54 08:10 Creatinine 1.19 1.45 H 0.97 01/16/22 05:59 Creatinine 0.88 Estimated CrCl and GFR - Last 168 Hours 01/13/22 01/14/22 01/15/22 19:16 05:54 08:10 Estim Creat Clear Calc 68.0 55.8 83.4 Estimated GFR > 60 48 > 60 01/16/22 05:59 Estim Creat Clear Calc 92.0 Estimated GFR > 60 Vancomycin Loading Dose: Current Vancomycin Dosing Regimen: 2000mg Q24H Vancomycin Monitoring using AUC goal of 400 - 600 range with trough as surrogate marker: Date and Time for next Vancomycin Level to be drawn: 01/17 @ 2100 Vancomycin Trough 6.9 mcg/mL (10.0-20.0) L 01/15/22 20:55 Pharmacist Comments on Vancomycin Plan: PATIENTS RENAL FUNCTION HAS IMPROVED, CURRENT SCR IS 0.88. I RECOMMEND INCREASING REGIMEN TO 2000 MG Q24H. THE MODEL PREDICTS A AUC OF 451 AND A TROUGH OF 11.7. WE WILL CONTINUE TO MONITOR RENAL FUNCTION AND PENDING CULTURES. Vancomycin dosing will take advantage of [employer] as a clinical decision support tool that uses Bayesian modeling to calculate individual patient's pharmacokinetic parameters and forecast the patient's drug concentration time course with the target goal AUC 24 range of 400 - 600 mg/L/hr.
[2022-01-16] MEDS: Cholecalciferol (Vitamin D3) 25 MCG TABLET PO (08:36)
[2022-01-16] MEDS: Metoprolol Tartrate 25 MG TABLET PO ×2 (08:36→21:36)
[2022-01-16] MEDS: 0.9 % Sodium Chloride 1,000 ML 75 ML IVCONT ×2 (08:36→22:05)
[2022-01-16] MEDS: Aspirin 81 MG TAB.CHEW PO (08:36)
--- NOTE | 2022-01-16 09:14 | P.PNIM_ITS ---
Subjective Subjective Date of Service: 01/16/22 Interval History: f/u on cellulitis of the foot and suspected osteomylitis of the foot--no new issues Review of Systems .no fever . some pain in the foot Physical Exam Vital Signs: Vital Signs: Last Vital Signs Temp 98.8 F 01/16/22 07:35 Pulse 102 H 01/16/22 07:35 Resp 19 01/16/22 07:35 BP 109/61 01/16/22 07:35 Pulse Ox 99 01/16/22 07:35 BMI result Body Mass Index 27.7 Const: Other: General: AO X 3, no acute distress Resp: CTA bilateral CVS: S1,S2,RRR GI: +BS, NT, no distention Skin:essentially unchanged Neuro: motor grossly intact Psych: appropriate affect Objective Data Active Medications Acetaminophen (Acetaminophen 325 Mg Tablet) 650 mg PO Q6H PRN PRN Reason: Pain, Mild (Pain Scale 1-3) Last Admin: 01/14/22 11:22 Dose: 650 mg Documented by: ALVINA Apixaban (Apixaban 5 Mg Tablet) 5 mg PO BID [facility] Last Admin: 01/16/22 08:37 Dose: Not Given Documented by: CHERYL Non-Admin Reason: pos.surgery tomorrow Aspirin (Aspirin 81 Mg Tab.Chew) 81 mg PO DAILY [facility] Last Admin: 01/16/22 08:36 Dose: 81 mg Documented by: CHERYL Dextrose (Dextrose 50 % 25 Gm/50 Ml Vial) 25 gm IVPUSH Q15M PRN; Protocol PRN Reason: per Hypoglycemia Standing Ord. Docusate Sodium (Docusate Sodium 100 Mg Capsule) 100 mg PO DAILY PRN PRN Reason: Constipation Glucose (Glucose Gel 15 Gm Gel..Gram.) 15 gm PO Q15M PRN; Protocol PRN Reason: per Hypoglycemia Standing Ord. Sodium Chloride (Ns) 1,000 mls @ 75 mls/hr IVCONT .[id number] [facility] Last Admin: 01/16/22 08:36 Dose: 75 mls/hr Documented by: CHERYL Vancomycin HCl 2,000 mg/ (Sodium Chloride) 540 mls @ 270 mls/hr IV Q24H [facility] Insulin Human Lispro (Insulin Lispro 100 Unit/Ml 3 Ml Vial) 0 unit SUBCUT QIDACHS [facility]; Protocol Last Admin: 01/16/22 07:42 Dose: Not Given Documented by: CHERYL Non-Admin Reason: No Insulin Coverage Melatonin (Melatonin 3 Mg Tablet) 6 mg PO BEDTIME PRN PRN Reason: Insomnia Metoprolol Tartrate (Metoprolol Tartrate 25 Mg Tablet) 25 mg PO BID [facility]; Protocol Last Admin: 01/16/22 08:36 Dose: 25 mg Documented by: CHERYL Metoprolol Tartrate (Metoprolol Tartrate 5 Mg/5 Ml Vial) 5 mg IVPUSH Q6H PRN PRN Reason: HR>125 Last Admin: 01/14/22 00:52 Dose: 5 mg Documented by: PIPO Pharmacy Consult (Consult Rx Perform Med Rec) 1 each MISCELLANE ONCE PRN PRN Reason: Consult order Pharmacy Consult (Consult Rx Vancomycin Dosing) 1 each MISCELLANE DAILY PRN PRN Reason: Consult order Sodium Chloride (0.9 % Sodium Chloride Flush 3 Ml Syringe) 3 ml IVFLUSH QSHIFT [facility] Last Admin: 01/16/22 07:20 Dose: Not Given Documented by: CHERYL Non-Admin Reason: IV Running Vitamin D (Cholecalciferol (Vitamin D3) 25 Mcg Tablet) 25 mcg PO DAILY [facility] Last Admin: 01/16/22 08:36 Dose: 25 mcg Documented by: CHERYL Labs CBC & Chem 7: 01/14/22 05:54 01/16/22 05:59 Labs: Laboratory Results - last 24 hr 01/15/22 01/15/22 01/15/22 12:03 16:24 20:39 Estim Creat Clear Calc Estimated GFR POC Glucose 192 H 193 H 145 H Vancomycin Trough 01/15/22 01/16/22 01/16/22 20:55 05:59 07:32 Estim Creat Clear Calc 92.0 Estimated GFR > 60 POC Glucose 145 H Vancomycin Trough 6.9 L Microbiology Microbiology Results: Microbiology 01/13/22 19:37 Blood Culture - Final Blood - Venous Staphylococcus aureus 01/13/22 19:18 Blood Culture - Final Blood - Venous Staphylococcus aureus Assessment and Plan (1) Osteomyelitis: Status: Acute (2) Chronic a-fib: Status: Acute Plan 72-year-old male with a past medical history of hypertension, AFib on Eliquis, neuropathy, history of osteomyelitis of the left 2nd toe, history of toe amputation about any ago; peripheral vascular disease, pre diabetes; presented to the hospital today with a chief complaint of generalized weakness.? Noted to have sepsis in the setting of foot infection.? A admitted for further management.? Sepsis/Left 3rd toe cellulitis and proable acute osteomylitis of 3rd toe -Continue Vanco and DC Zosyn -He will require ampuation, planned for tomorrow by Dr. Wylie, lula jacksonqumadi today -Echo to rule out endocariditis Staph Aureus Sepsis and bacteremia--probably from toe wound -Continue Vanco as above -Echo no vegetatation -ID is recommending 6 weeks of IV antibiotics ?Chronic AFIB--Continue home metoprolol and Eliquis.? Urinary retention:? Bladder scan showed 788 cc of urine.? Davis catheter.? Urology follow-up. History of prediabetes:? Will obtain hemoglobin A1c.? Insulin sliding scale. DVT prop--Eliquis Need for inpatient: need for IV Abx for sepsis, acute osteomylitis and awaiting ampuatation planned for tomorrow Quality Stroke Does the patient have a stroke diagnosis?: No VTE Prior VTE?: No VTE Risk Level:: Medical - moderate - high VTE Device Contraindication: Treatment Not Indicated VTE Drug Contraindication: N/A - Med Ordered
[2022-01-16 11:11] LABS: Glucose, Whole Blood 154 mg/dL (60-115)
[2022-01-16 12:00] VITALS: BP 110/61; PULSE 86; RESP 18; TEMP 36.5; O2SAT 100
--- NOTE | 2022-01-16 12:07 | PM.PNGS ---
Subjective Subjective Date of Service: 01/16/22 Interval history: Says he feels okay Denies severe pain on the left foot Physical Exam Vital Signs: Vital Signs: Last Vital Signs Temp 98.8 F 01/16/22 07:35 Pulse 102 H 01/16/22 07:35 Resp 19 01/16/22 07:35 BP 109/61 01/16/22 07:35 Pulse Ox 99 01/16/22 07:35 BMI result Body Mass Index 27.7 Const: General: comfortable and no acute distress Resp: Effort & Inspection: normal respiratory effort Cardio: Rhythm: abnormal rhythm Extrem: Other: Left 3rd toe with deep ulcer at the plantar aspect of the tip, significant inflammatory changes and edema, cellulitis Objective Data Active Medications Acetaminophen (Acetaminophen 325 Mg Tablet) 650 mg PO Q6H PRN PRN Reason: Pain, Mild (Pain Scale 1-3) Last Admin: 01/14/22 11:22 Dose: 650 mg Documented by: ALVINA Apixaban (Apixaban 5 Mg Tablet) 5 mg PO BID [facility] Last Admin: 01/16/22 08:37 Dose: Not Given Documented by: CHERYL Non-Admin Reason: pos.surgery tomorrow Aspirin (Aspirin 81 Mg Tab.Chew) 81 mg PO DAILY [facility] Last Admin: 01/16/22 08:36 Dose: 81 mg Documented by: CHERYL Dextrose (Dextrose 50 % 25 Gm/50 Ml Vial) 25 gm IVPUSH Q15M PRN; Protocol PRN Reason: per Hypoglycemia Standing Ord. Docusate Sodium (Docusate Sodium 100 Mg Capsule) 100 mg PO DAILY PRN PRN Reason: Constipation Glucose (Glucose Gel 15 Gm Gel..Gram.) 15 gm PO Q15M PRN; Protocol PRN Reason: per Hypoglycemia Standing Ord. Sodium Chloride (Ns) 1,000 mls @ 75 mls/hr IVCONT .[id number] [facility] Last Admin: 01/16/22 08:36 Dose: 75 mls/hr Documented by: CHERYL Vancomycin HCl 2,000 mg/ (Sodium Chloride) 540 mls @ 270 mls/hr IV Q24H [facility] Cefazolin Sodium/Dextrose (Ancef) 2 gm in 50 mls @ 100 mls/hr IV PREOP ONE Stop: 01/17/22 13:10 Insulin Human Lispro (Insulin Lispro 100 Unit/Ml 3 Ml Vial) 0 unit SUBCUT QIDACHS [facility]; Protocol Last Admin: 01/16/22 07:42 Dose: Not Given Documented by: CHERYL Non-Admin Reason: No Insulin Coverage Melatonin (Melatonin 3 Mg Tablet) 6 mg PO BEDTIME PRN PRN Reason: Insomnia Metoprolol Tartrate (Metoprolol Tartrate 25 Mg Tablet) 25 mg PO BID [facility]; Protocol Last Admin: 01/16/22 08:36 Dose: 25 mg Documented by: CHERYL Metoprolol Tartrate (Metoprolol Tartrate 5 Mg/5 Ml Vial) 5 mg IVPUSH Q6H PRN PRN Reason: HR>125 Last Admin: 01/14/22 00:52 Dose: 5 mg Documented by: PIPO Pharmacy Consult (Consult Rx Perform Med Rec) 1 each MISCELLANE ONCE PRN PRN Reason: Consult order Pharmacy Consult (Consult Rx Vancomycin Dosing) 1 each MISCELLANE DAILY PRN PRN Reason: Consult order Sodium Chloride (0.9 % Sodium Chloride Flush 3 Ml Syringe) 3 ml IVFLUSH QSHIFT [facility] Last Admin: 01/16/22 07:20 Dose: Not Given Documented by: CHERYL Non-Admin Reason: IV Running Vitamin D (Cholecalciferol (Vitamin D3) 25 Mcg Tablet) 25 mcg PO DAILY [facility] Last Admin: 01/16/22 08:36 Dose: 25 mcg Documented by: CHERYL Labs CBC & Chem 7: 01/14/22 05:54 01/16/22 05:59 Labs: Laboratory Results - last 24 hr 01/15/22 01/15/22 01/15/22 12:03 16:24 20:39 Estim Creat Clear Calc Estimated GFR POC Glucose 192 H 193 H 145 H Vancomycin Trough 01/15/22 01/16/22 01/16/22 20:55 05:59 07:32 Estim Creat Clear Calc 92.0 Estimated GFR > 60 POC Glucose 145 H Vancomycin Trough 6.9 L 01/16/22 11:07 Estim Creat Clear Calc Estimated GFR POC Glucose 154 H Vancomycin Trough Microbiology Microbiology Results: Microbiology 01/13/22 19:37 Blood Culture - Final Blood - Venous Staphylococcus aureus 01/13/22 19:18 Blood Culture - Final Blood - Venous Staphylococcus aureus Procedures Date of Service Date of Service: 01/16/22 Progress Note: A&P Assessment and plan (1) Osteomyelitis: Status: Acute Assessment and Plan: He has a deep ulcer of the 3rd toe on the left with cellulitis X-ray suggestive of osteomyelitis of the distal phalanx He does not want to proceed with long-term antibiotics Prefers amputation of the toe He had discussed this as well with Dr. Rodriguez Reviewed with him the technique of this procedure Explained the risks including but not limited to bleeding, infections, poor healing, as well as the benefits and alternatives Mary Jane Saidahilda Plan for toe amputation, 3rd toe left tomorrow Fall Risk Details Current Medications: Current Medications Acetaminophen (Acetaminophen 325 Mg Tablet) 650 mg PO Q6H PRN PRN Reason: Pain, Mild (Pain Scale 1-3) Last Admin: 01/14/22 11:22 Dose: 650 mg Documented by: Apixaban (Apixaban 5 Mg Tablet) 5 mg PO BID [facility] Last Admin: 01/16/22 08:37 Dose: Not Given Documented by: Aspirin (Aspirin 81 Mg Tab.Chew) 81 mg PO DAILY [facility] Last Admin: 01/16/22 08:36 Dose: 81 mg Documented by: Dextrose (Dextrose 50 % 25 Gm/50 Ml Vial) 25 gm IVPUSH Q15M PRN; Protocol PRN Reason: per Hypoglycemia Standing Ord. Docusate Sodium (Docusate Sodium 100 Mg Capsule) 100 mg PO DAILY PRN PRN Reason: Constipation Glucose (Glucose Gel 15 Gm Gel..Gram.) 15 gm PO Q15M PRN; Protocol PRN Reason: per Hypoglycemia Standing Ord. Sodium Chloride (Ns) 1,000 mls @ 75 mls/hr IVCONT .[id number] [facility] Last Admin: 01/16/22 08:36 Dose: 75 mls/hr Documented by: Vancomycin HCl 2,000 mg/ (Sodium Chloride) 540 mls @ 270 mls/hr IV Q24H [facility] Cefazolin Sodium/Dextrose (Ancef) 2 gm in 50 mls @ 100 mls/hr IV PREOP ONE Stop: 01/17/22 13:10 Insulin Human Lispro (Insulin Lispro 100 Unit/Ml 3 Ml Vial) 0 unit SUBCUT QIDACHS [facility]; Protocol Last Admin: 01/16/22 07:42 Dose: Not Given Documented by: Melatonin (Melatonin 3 Mg Tablet) 6 mg PO BEDTIME PRN PRN Reason: Insomnia Metoprolol Tartrate (Metoprolol Tartrate 25 Mg Tablet) 25 mg PO BID [facility]; Protocol Last Admin: 01/16/22 08:36 Dose: 25 mg Documented by: Metoprolol Tartrate (Metoprolol Tartrate 5 Mg/5 Ml Vial) 5 mg IVPUSH Q6H PRN PRN Reason: HR>125 Last Admin: 01/14/22 00:52 Dose: 5 mg Documented by: Pharmacy Consult (Consult Rx Perform Med Rec) 1 each MISCELLANE ONCE PRN PRN Reason: Consult order Pharmacy Consult (Consult Rx Vancomycin Dosing) 1 each MISCELLANE DAILY PRN PRN Reason: Consult order Sodium Chloride (0.9 % Sodium Chloride Flush 3 Ml Syringe) 3 ml IVFLUSH QSHIFT [facility] Last Admin: 01/16/22 07:20 Dose: Not Given Documented by: Vitamin D (Cholecalciferol (Vitamin D3) 25 Mcg Tablet) 25 mcg PO DAILY [facility] Last Admin: 01/16/22 08:36 Dose: 25 mcg Documented by: Time Spent With Patient Time: Total time spent is greater than 50% in coordination of care (as documented) at patient's floor/unit and/or counseling patient: Time with patient: 15 - 24 minutes Quality Stroke Does the patient have a stroke diagnosis?: No VTE Prior VTE?: No VTE Risk Level:: Medical - moderate - high VTE Device Contraindication: Treatment Not Indicated VTE Drug Contraindication: N/A - Med Ordered
[2022-01-16] MEDS: Insulin Lispro 100 UNIT/ML 3 ML VIAL SUBCUT ×2 (12:47→21:37)
--- NOTE | 2022-01-16 14:50 | PC.NURSE ---
Addendum entered by Karin Garcia RN 01/16/22 17:44: Patient is not able to void since FC removal. States has no discomfort or urge. Bladder scanned for [address] Pichardo notified via [employer],no new orders at this time just to monitor. Original Note: FC removed at 11:27 today,first DTV is due at 17:27,if patient still retain urine urology consult should be placed per Dr Pichardo.
[2022-01-16 16:00] VITALS: BP 150/65; PULSE 87; RESP 18; TEMP 36.9; O2SAT 100
[2022-01-16 16:34] LABS: Glucose, Whole Blood 119 mg/dL (60-115)
[2022-01-16 20:43] LABS: Glucose, Whole Blood 169 mg/dL (60-115)
[2022-01-16] MEDS: 0.9 % Sodium Chloride Flush 3 ML SYRINGE IVFLUSH (22:00)
[2022-01-16 22:49] VITALS: BP 117/58; PULSE 86; RESP 18; TEMP 36.8; O2SAT 99
[2022-01-17] VITALS (10 sets, daily range): BP systolic 107–125; BP diastolic 51–64; PULSE 72–106; RESP 16–20; TEMP 36.2–37; O2SAT 97–99
[2022-01-17 06:55] LABS: Creatinine Clr Calc Pharmacy 101.2; Estimated Glomerular Filt Rate > 60
[2022-01-17 07:28] LABS: Glucose, Whole Blood 136 mg/dL (60-115)
[2022-01-17] MEDS: 0.9 % Sodium Chloride Flush 3 ML SYRINGE IVFLUSH ×3 (08:02→23:37)
[2022-01-17] MEDS: Metoprolol Tartrate 25 MG TABLET PO ×2 (08:19→23:37)
[2022-01-17] MEDS: Cholecalciferol (Vitamin D3) 25 MCG TABLET PO (08:20)
--- NOTE | 2022-01-17 08:51 | HE.PHANOTE ---
VANCOMYCIN ADDENDUM: Nurse on 01/17 found the 2 G vanco hanging still full, that was due to be given on 01/16 @ 2300. The nurse Henna Tate never actually gave the dose, though it was documented as given. We will re-time a 2g dose to be given today, 01/17 @ 1000. Next trough will now be drawn on 01/18 @ 0800.
--- NOTE | 2022-01-17 09:59 | HO.PM.IMPN ---
Subjective Subjective Date of Service: 01/17/22 Interval History: f/u on cellulitis of the foot and suspected osteomylitis of the foot--no new issues ready for surgery Davis reinserted overnight d/t urinary retention Review of Systems .no fever . some pain in the foot . urinary retention Physical Exam Vital Signs: Vital Signs: Last Vital Signs Temp 98.2 F 01/17/22 07:23 Pulse 90 01/17/22 07:23 Resp 20 01/17/22 07:23 BP 125/64 01/17/22 07:23 Pulse Ox 99 01/17/22 07:23 BMI result Body Mass Index 27.7 Const: Other: General: AO X 3, no acute distress Resp: CTA bilateral CVS: S1,S2,RRR GI: +BS, NT, no distention Skin:essentially unchanged Neuro: motor grossly intact Psych: appropriate affect Objective Data Active Medications Acetaminophen (Acetaminophen 325 Mg Tablet) 650 mg PO Q6H PRN PRN Reason: Pain, Mild (Pain Scale 1-3) Last Admin: 01/14/22 11:22 Dose: 650 mg Documented by: ALVINA Apixaban (Apixaban 5 Mg Tablet) 5 mg PO BID [facility] Last Admin: 01/17/22 08:00 Dose: Not Given Documented by: CATIA Non-Admin Reason: pre op Aspirin (Aspirin 81 Mg Tab.Chew) 81 mg PO DAILY [facility] Last Admin: 01/17/22 08:16 Dose: Not Given Documented by: CATIA Non-Admin Reason: pre op Dextrose (Dextrose 50 % 25 Gm/50 Ml Vial) 25 gm IVPUSH Q15M PRN; Protocol PRN Reason: per Hypoglycemia Standing Ord. Docusate Sodium (Docusate Sodium 100 Mg Capsule) 100 mg PO DAILY PRN PRN Reason: Constipation Glucose (Glucose Gel 15 Gm Gel..Gram.) 15 gm PO Q15M PRN; Protocol PRN Reason: per Hypoglycemia Standing Ord. Cefazolin Sodium/Dextrose (Ancef) 2 gm in 50 mls @ 100 mls/hr IV PREOP ONE Stop: 01/17/22 13:10 Vancomycin HCl 2,000 mg/ (Sodium Chloride) 540 mls @ 270 mls/hr IV Q24H [facility] Insulin Human Lispro (Insulin Lispro 100 Unit/Ml 3 Ml Vial) 0 unit SUBCUT QIDACHS [facility]; Protocol Last Admin: 01/17/22 08:00 Dose: Not Given Documented by: CATIA Non-Admin Reason: No Insulin Coverage Melatonin (Melatonin 3 Mg Tablet) 6 mg PO BEDTIME PRN PRN Reason: Insomnia Metoprolol Tartrate (Metoprolol Tartrate 25 Mg Tablet) 25 mg PO BID [facility]; Protocol Last Admin: 01/17/22 08:19 Dose: 25 mg Documented by: CATIA Metoprolol Tartrate (Metoprolol Tartrate 5 Mg/5 Ml Vial) 5 mg IVPUSH Q6H PRN PRN Reason: HR>125 Last Admin: 01/14/22 00:52 Dose: 5 mg Documented by: PIPO Pharmacy Consult (Consult Rx Perform Med Rec) 1 each MISCELLANE ONCE PRN PRN Reason: Consult order Pharmacy Consult (Consult Rx Vancomycin Dosing) 1 each MISCELLANE DAILY PRN PRN Reason: Consult order Sodium Chloride (0.9 % Sodium Chloride Flush 3 Ml Syringe) 3 ml IVFLUSH QSHIFT [facility] Last Admin: 01/17/22 08:02 Dose: 3 ml Documented by: CATIA Vitamin D (Cholecalciferol (Vitamin D3) 25 Mcg Tablet) 25 mcg PO DAILY [facility] Last Admin: 01/17/22 08:20 Dose: 25 mcg Documented by: CATIA Labs CBC & Chem 7: 01/14/22 05:54 01/17/22 06:14 Labs: Laboratory Results - last 24 hr 01/16/22 01/16/22 01/16/22 11:07 16:22 20:39 Estim Creat Clear Calc Estimated GFR POC Glucose 154 H 119 H 169 H 01/17/22 01/17/22 06:14 07:22 Estim Creat Clear Calc 101.2 Estimated GFR > 60 POC Glucose 136 H Microbiology Microbiology Results: Microbiology 01/13/22 19:37 Blood Culture - Final Blood - Venous Staphylococcus aureus 01/13/22 19:18 Blood Culture - Final Blood - Venous Staphylococcus aureus Assessment and Plan (1) Osteomyelitis: Status: Acute (2) Chronic a-fib: Status: Acute Plan 72-year-old male with a past medical history of hypertension, AFib on Eliquis, neuropathy, history of osteomyelitis of the left 2nd toe, history of toe amputation about any ago; peripheral vascular disease, pre diabetes; presented to the hospital today with a chief complaint of generalized weakness.? Noted to have sepsis in the setting of foot infection.? A admitted for further management.? Sepsis/Left 3rd toe cellulitis and proable acute osteomylitis of 3rd toe -Continue Vanco and DC Zosyn -He will require ampuation, planned for td01/[address] Wylie, hold eliquis today -Echo : no vegetations Staph Aureus Sepsis and bacteremia- -Change Vanco to Keflex -Echo no vegetatation -ID is recommending 6 weeks of IV antibiotics ?Chronic AFIB--Continue home metoprolol and Eliquis.? Urinary retention:? Bladder scan showed 788 cc of urine.? Davis catheter.? Urology follow-up. History of prediabetes:? Will obtain hemoglobin A1c.? Insulin sliding scale. DVT prop--Eliquis Need for inpatient: need for IV Abx for sepsis, acute osteomylitis and awaiting ampuatation planned for tomorrow Quality Stroke Does the patient have a stroke diagnosis?: No VTE Prior VTE?: No VTE Risk Level:: Medical - moderate - high VTE Device Contraindication: Treatment Not Indicated VTE Drug Contraindication: N/A - Med Ordered
--- NOTE | 2022-01-17 10:19 | P.CDIC_ITS ---
CDI Concurrent Query Documentation Clarification: PHYSICIAN'S DOCUMENTATION REQUEST Date of Query: 01/17/22 1020 Patient Name: Shashank Fregoso Admit Date: 01/13/22 Dear Doctor, A review of the medical record indicates additional documentation may be indicated. Please review below and update the documentation accordingly. Clinical Indicators: Risk Factors/Clinical Indicators/Treatments PMH: PVD, pre-diabetes wound left third toe Per H&P: Left third toe cellulitis Per MD progress note 01/14/22: suspected osteomyelitis Surgical plan for amputation Based on the above, could you please provide, in the Progress Notes, further information regarding the ulcer/wound: * Type (etiology) of ulcer/wound: * Diabetic ulcer * Venous stasis ulcer * Arterial (ischemic) ulcer * Pressure (decubitus) ulcer * Traumatic wound * Other * Unable to determine * For a non-pressure ulcer, please indicate the depth/severity: * Limited to the breakdown of skin * With fat layer exposed * With necrosis of muscle * With necrosis of bone * Other * Unable to determine * If a pressure ulcer, please also include the stage* of the ulcer: * Stage 1 - Skin intact, non-blanchable redness * Stage 2 - Partial thickness loss of dermis, includes intact or open blister * Stage 3 - Full thickness tissue not including bone, tendon, or muscle * Stage 4 - Full thickness tissue loss, including exposed bones, tendon, or muscle * Unstageable - Full thickness tissue loss in which the base of the ulcer is covered by slough (yellow, delvalle, luis, green or brown) and/or eschar (delvalle, brown, or black) in the wound bed. * Suspected deep tissue injury - Purple or maroon localized area of discolored intact skin or blood-filled blister due to damage of underlying soft tissues from pressure and/or shear. The area may be preceded by tissue that is painful, firm, mushy, boggy, warmer, or cooler as compare to adjacent tissue. * Unable to determine *Source: National Pressure Ulcer Advisory Panel (NPUAP) Use of terms such as suspected, likely, concern for, or probable (associated with a specific diagnosis that is being evaluated, monitored, or treated as if it exists) are acceptable and can be coded in the inpatient setting, when documented at the time of discharge. Thank you, Nikky Del Rio RN Extension: [phone] Please use your independent medical judgment in providing your response. THIS QUERY IS PART OF THE PERMANENT MEDICAL RECORD Provider Response: Other Other Diagnosis: Cellulitis not ulcer documented
--- NOTE | 2022-01-17 10:19 | MHC.CDI.CONC ---
CDI Concurrent Query Documentation Clarification: PHYSICIAN'S DOCUMENTATION REQUEST Date of Query: 01/17/22 1020 Patient Name: Shashank Fregoso Admit Date: 01/13/22 Dear Doctor, A review of the medical record indicates additional documentation may be indicated. Please review below and update the documentation accordingly. Clinical Indicators: Risk Factors/Clinical Indicators/Treatments PMH: PVD, pre-diabetes wound left third toe Per H&P: Left third toe cellulitis Per MD progress note 01/14/22: suspected osteomyelitis Surgical plan for amputation Based on the above, could you please provide, in the Progress Notes, further information regarding the ulcer/wound: Type (etiology) of ulcer/wound: Diabetic ulcer Venous stasis ulcer Arterial (ischemic) ulcer Pressure (decubitus) ulcer Traumatic wound Other Unable to determine For a non-pressure ulcer, please indicate the depth/severity: Limited to the breakdown of skin With fat layer exposed With necrosis of muscle With necrosis of bone Other Unable to determine If a pressure ulcer, please also include the stage* of the ulcer: Stage 1 - Skin intact, non-blanchable redness Stage 2 - Partial thickness loss of dermis, includes intact or open blister Stage 3 - Full thickness tissue not including bone, tendon, or muscle Stage 4 - Full thickness tissue loss, including exposed bones, tendon, or muscle Unstageable - Full thickness tissue loss in which the base of the ulcer is covered by slough (yellow, delvalle, luis, green or brown) and/or eschar (delvalle, brown, or black) in the wound bed. Suspected deep tissue injury - Purple or maroon localized area of discolored intact skin or blood-filled blister due to damage of underlying soft tissues from pressure and/or shear. The area may be preceded by tissue that is painful, firm, mushy, boggy, warmer, or cooler as compare to adjacent tissue. Unable to determine *Source: National Pressure Ulcer Advisory Panel (NPUAP) Use of terms such as suspected, likely, concern for, or probable (associated with a specific diagnosis that is being evaluated, monitored, or treated as if it exists) are acceptable and can be coded in the inpatient setting, when documented at the time of discharge. Thank you, Nikky Del Rio RN Extension: [phone] Please use your independent medical judgment in providing your response. THIS QUERY IS PART OF THE PERMANENT MEDICAL RECORD Provider Response: Other Other Diagnosis: Cellulitis not ulcer documented
[2022-01-17 10:27] LABS: Vancomycin Trough 4.6 mcg/mL (10.0-20.0)
[2022-01-17 10:58] LABS: Glucose, Whole Blood 136 mg/dL (60-115)
--- NOTE | 2022-01-17 11:14 | MHC.CM.PN ---
Per ROUNDS discussion, Patient is not yet medically cleared for dc (Toe Amp today, IV Cefazolin, IV Vanco); Home with possible new VNA appears likely and CM will continue to follow.
[2022-01-17] MEDS: Lactated Ringers 1,000 ML 100 ML IVCONT ×2 (12:42→16:51)
--- NOTE | 2022-01-17 12:48 | PC.NURSE ---
Addendum entered by Yulisa Keith RN 01/17/22 12:57: Correction: right great toe amp not leg. Original Note: Skin/wound assessment. Patient has an infected diabetic ulcer on left 3rd toe with osteomyelitis. The toe will be amputated this afternoon, will follow up on Thursday. Patient also has psoriasis over whole body. Also has left second toe amputated and a right leg amp.
--- NOTE | 2022-01-17 13:17 | P.CONAN_ITS ---
HPI - Anesthesia Eval Consult details Narrative: toe amputation PMFSH Active Problems Active Problems: All Active Problems (Updated 01/16/22 @ 09:21 by Aditya Pichardo MD) Chronic a-fib (Acute) Osteomyelitis (Acute) Fever (Acute) Cellulitis (Acute) Amputation of great toe (Acute) Rash of body (Acute) PVD (peripheral vascular disease) (Acute) Pre-diabetes (Acute) Arrhythmia (Acute) Amputation of toe of left foot (Acute) Past Medical History Medical History (Updated 01/16/22 @ 09:21 by Aditya Pichardo MD) Amputated toe of right foot Amputation of great toe Arrhythmia Chronic a-fib History of amputation of toe History of heart valve abnormality History of neuropathy Osteomyelitis Osteomyelitis Osteomyelitis of second toe of left foot Pre-diabetes Ulcer of left second toe Family History Family History Mother No problems noted. Family history of problems with anesthesia: No Surgical History Surgical History Hx of amputation Status post ORIF of fracture of ankle History of Problems with Anesthesia: No Social History Social History Household Members: Family Housing: House Do you presently have visiting nurse or other home services: No Alcohol intake: never Patient Tobacco Use Status: Never used Tobacco Second Hand Smoke Exposure: No Advance Directives Date on File: 08/07/20 service: No Current occupational status: retired Meds Allergies Allergy/AdvReac Type Severity Reaction Status Date / Time penicillin V Allergy Intermediate rash Verified 12/30/21 11:40 Erythromycin Allergy Intermediate diarrhea Uncoded 03/14/21 10:20 Active Medications: Current Medications Acetaminophen (Acetaminophen 325 Mg Tablet) 650 mg PO Q6H PRN PRN Reason: Pain, Mild (Pain Scale 1-3) Last Admin: 01/14/22 11:22 Dose: 650 mg Documented by: Apixaban (Apixaban 5 Mg Tablet) 5 mg PO BID [facility] Last Admin: 01/17/22 08:00 Dose: Not Given Documented by: Aspirin (Aspirin 81 Mg Tab.Chew) 81 mg PO DAILY [facility] Last Admin: 01/17/22 08:16 Dose: Not Given Documented by: Dextrose (Dextrose 50 % 25 Gm/50 Ml Vial) 25 gm IVPUSH Q15M PRN; Protocol PRN Reason: per Hypoglycemia Standing Ord. Docusate Sodium (Docusate Sodium 100 Mg Capsule) 100 mg PO DAILY PRN PRN Reason: Constipation Glucose (Glucose Gel 15 Gm Gel..Gram.) 15 gm PO Q15M PRN; Protocol PRN Reason: per Hypoglycemia Standing Ord. Cefazolin Sodium 1 gm/ Sodium (Chloride) 50 mls @ 100 mls/hr IV Q8H [facility] Last Infusion: 01/17/22 12:42 Dose: Infused Documented by: Insulin Human Lispro (Insulin Lispro 100 Unit/Ml 3 Ml Vial) 0 unit SUBCUT QIDACHS [facility]; Protocol Last Admin: 01/17/22 11:05 Dose: Not Given Documented by: Melatonin (Melatonin 3 Mg Tablet) 6 mg PO BEDTIME PRN PRN Reason: Insomnia Metoprolol Tartrate (Metoprolol Tartrate 25 Mg Tablet) 25 mg PO BID [facility]; Protocol Last Admin: 01/17/22 08:19 Dose: 25 mg Documented by: Metoprolol Tartrate (Metoprolol Tartrate 5 Mg/5 Ml Vial) 5 mg IVPUSH Q6H PRN PRN Reason: HR>125 Last Admin: 01/14/22 00:52 Dose: 5 mg Documented by: Pharmacy Consult (Consult Rx Perform Med Rec) 1 each MISCELLANE ONCE PRN PRN Reason: Consult order Pharmacy Consult (Consult Rx Vancomycin Dosing) 1 each MISCELLANE DAILY PRN PRN Reason: Consult order Sodium Chloride (0.9 % Sodium Chloride Flush 3 Ml [facility]) [facility] Admin: 01/17/22 08:02 Dose: 3 ml Documented by: Vitamin D (Cholecalciferol (Vitamin D3) 25 Mcg Tablet) 25 mcg PO DAILY [facility] Last Admin: 01/17/22 08:20 Dose: 25 mcg Documented by: Home Medications Medication Instructions Recorded Confirmed Last Taken Type cholecalciferol (vitamin D3) 25 25 mcg PO DAILY 10/23/20 01/13/22 01/13/22 History mcg (1,000 unit) capsule lancets 28 gauge #100 ea 03/14/21 12/09/21 Unknown History Exam Exam Date and Time: January 17, 2022 131 Height,Weight and Vital Signs: Height 6 ft 3 in Weight 100.6 kg Last Vital Signs Temp 98.6 F 01/17/22 12:03 Pulse 72 01/17/22 12:03 Resp 16 01/17/22 12:03 BP 118/53 L 01/17/22 12:03 Pulse Ox 99 01/17/22 12:03 Pertinent Lab Results Pertinent Lab Results: Laboratory Tests 01/13/22 01/13/22 01/13/22 19:16 19:16 19:16 WBC 10.3 RBC 4.14 L Hgb 12.9 L Hct 37.9 L MCV 91.5 MCH 31.2 MCHC 34.0 RDW 13.2 Plt Count 229 MPV 9.1 L Immature Gran % (Auto) 0.4 Neut % (Auto) 88.7 H Lymph % (Auto) 5.6 L Whitman % (Auto) 5.0 Eos % (Auto) 0.1 Baso % (Auto) 0.2 Lymph # (Auto) 0.6 L Whitman # (Auto) 0.5 Eos # (Auto) 0.0 Baso # (Auto) 0.0 Abs Immat Gran (auto) 0.04 H Absolute Neuts (auto) 9.1 H Absolute Nucleated RBC 0.000 Nucleated RBC % (auto) 0.0 PT INR APTT Sodium 133 L Potassium 4.6 Chloride 99 Carbon Dioxide 22 Anion Gap 17 BUN 19 H Creatinine 1.19 Estim Creat Clear Calc 68.0 Estimated GFR > 60 POC Glucose Random Glucose 295 H D Estimat Average Glucose Hemoglobin A1c % Lactic Acid 2.4 H* Lactic Acid F/U @ 2Hr Calcium 9.4 D Magnesium 1.7 Total Bilirubin 1.1 H AST 22 D ALT 17 Alkaline Phosphatase 74 Total Protein 7.5 Albumin 4.2 Urine Color Urine Appearance Urine pH Ur Specific [place] Urine Protein Urine Glucose (UA) Urine Ketones Urine Blood Urine Nitrite Ur Leukocyte Esterase Urine RBC Urine WBC Ur Squamous Epith Cells Urine Bacteria Vancomycin Trough COVID-19 ([facility]) COVID-19 Clin Com 01/13/22 01/13/22 01/13/22 19:16 19:16 19:16 WBC RBC Hgb Hct MCV MCH MCHC RDW Plt Count MPV Immature Gran % (Auto) Neut % (Auto) Lymph % (Auto) Whitman % (Auto) Eos % (Auto) Baso % (Auto) Lymph # (Auto) Whitman # (Auto) Eos # (Auto) Baso # (Auto) Abs Immat Gran (auto) Absolute Neuts (auto) Absolute Nucleated RBC Nucleated RBC % (auto) PT 14.0 H INR 1.2 H APTT 38.1 H Sodium Potassium Chloride Carbon Dioxide Anion Gap BUN Creatinine Estim Creat Clear Calc Estimated GFR POC Glucose Random Glucose Estimat Average Glucose 143 Hemoglobin A1c % 6.6 Lactic Acid Lactic Acid F/U @ 2Hr Calcium Magnesium Total Bilirubin AST ALT Alkaline Phosphatase Total Protein Albumin Urine Color Urine Appearance Urine pH Ur Specific [place] Urine Protein Urine Glucose (UA) Urine Ketones Urine Blood Urine Nitrite Ur Leukocyte Esterase Urine RBC Urine WBC Ur Squamous Epith Cells Urine Bacteria Vancomycin Trough COVID-19 ([facility]) Negative COVID-19 Clin Com See Note 01/13/22 01/13/22 01/14/22 20:44 21:59 05:54 WBC 9.1 RBC 3.69 L Hgb 11.4 L Hct 34.4 L MCV 93.2 MCH 30.9 MCHC 33.1 RDW 13.3 Plt Count 220 MPV 9.2 L Immature Gran % (Auto) 0.6 H Neut % (Auto) 88.9 H Lymph % (Auto) 4.7 L Whitman % (Auto) 5.5 Eos % (Auto) 0.1 Baso % (Auto) 0.2 Lymph # (Auto) 0.4 L Whitman # (Auto) 0.5 Eos # (Auto) 0.0 Baso # (Auto) 0.0 Abs Immat Gran (auto) 0.05 H Absolute Neuts (auto) 8.1 Absolute Nucleated RBC 0.000 Nucleated RBC % (auto) 0.0 PT INR APTT Sodium Potassium Chloride Carbon Dioxide Anion Gap BUN Creatinine Estim Creat Clear Calc Estimated GFR POC Glucose Random Glucose Estimat Average Glucose Hemoglobin A1c % Lactic Acid Lactic Acid F/U @ 2Hr 1.4 Calcium Magnesium Total Bilirubin AST ALT Alkaline Phosphatase Total Protein Albumin Urine Color YELLOW Urine Appearance CLEAR Urine pH 5.5 Ur Specific [place] 1.020 Urine Protein TRACE Urine Glucose (UA) 500 H Urine Ketones 5 Urine Blood 3+ H Urine Nitrite NEG Ur Leukocyte Esterase NEG Urine RBC 5-9 H Urine WBC 0 Ur Squamous Epith Cells 1+ Urine Bacteria 1+ Vancomycin Trough COVID-19 ([facility]) COVID-19 Clin Com 01/14/22 01/14/22 01/14/22 05:54 07:27 13:15 WBC RBC Hgb Hct MCV MCH MCHC RDW Plt Count MPV Immature Gran % (Auto) Neut % (Auto) Lymph % (Auto) Whitman % (Auto) Eos % (Auto) Baso % (Auto) Lymph # (Auto) Whitman # (Auto) Eos # (Auto) Baso # (Auto) Abs Immat Gran (auto) Absolute Neuts (auto) Absolute Nucleated RBC Nucleated RBC % (auto) PT INR APTT Sodium 136 Potassium 3.8 Chloride 105 Carbon Dioxide 22 Anion Gap 13 BUN 22 H Creatinine 1.45 H Estim Creat Clear Calc 55.8 Estimated GFR 48 POC Glucose 246 H 185 H Random Glucose 275 H Estimat Average Glucose Hemoglobin A1c % Lactic Acid Lactic Acid F/U @ 2Hr Calcium 8.5 D Magnesium Total Bilirubin AST ALT Alkaline Phosphatase Total Protein Albumin Urine Color Urine Appearance Urine pH Ur Specific [place] Urine Protein Urine Glucose (UA) Urine Ketones Urine Blood Urine Nitrite Ur Leukocyte Esterase Urine RBC Urine WBC Ur Squamous Epith Cells Urine Bacteria Vancomycin Trough COVID-19 ([facility]) COVID-19 [employer] 01/14/22 01/14/22 01/15/22 18:23 21:00 07:34 WBC RBC Hgb Hct MCV MCH MCHC RDW Plt Count MPV Immature Gran % (Auto) Neut % (Auto) Lymph % (Auto) Whitman % (Auto) Eos % (Auto) Baso % (Auto) Lymph # (Auto) Whitman # (Auto) Eos # (Auto) Baso # (Auto) Abs Immat Gran (auto) Absolute Neuts (auto) Absolute Nucleated RBC Nucleated RBC % (auto) PT INR APTT Sodium Potassium Chloride Carbon Dioxide Anion Gap BUN Creatinine Estim Creat Clear Calc Estimated GFR POC Glucose 142 H 241 H 172 H Random Glucose Estimat Average Glucose Hemoglobin A1c % Lactic Acid Lactic Acid F/U @ 2Hr Calcium Magnesium Total Bilirubin AST ALT Alkaline Phosphatase Total Protein Albumin Urine Color Urine Appearance Urine pH Ur Specific [place] Urine Protein Urine Glucose (UA) Urine Ketones Urine Blood Urine Nitrite Ur Leukocyte Esterase Urine RBC Urine WBC Ur Squamous Epith Cells Urine Bacteria Vancomycin Trough COVID-19 ([facility]) COVID-19 [employer] Com 01/15/22 01/15/22 01/15/22 08:10 12:03 16:24 WBC RBC Hgb Hct MCV MCH MCHC RDW Plt Count MPV Immature Gran % (Auto) Neut % (Auto) Lymph % (Auto) Whitman % (Auto) Eos % (Auto) Baso % (Auto) Lymph # (Auto) Whitman # (Auto) Eos # (Auto) Baso # (Auto) Abs Immat Gran (auto) Absolute Neuts (auto) Absolute Nucleated RBC Nucleated RBC % (auto) PT INR APTT Sodium Potassium Chloride Carbon Dioxide Anion Gap BUN Creatinine 0.97 Estim Creat Clear Calc 83.4 Estimated GFR > 60 POC Glucose 192 H 193 H Random Glucose Estimat Average Glucose Hemoglobin A1c % Lactic Acid Lactic Acid F/U @ 2Hr Calcium Magnesium Total Bilirubin AST ALT Alkaline Phosphatase Total Protein Albumin Urine Color Urine Appearance Urine pH Ur Specific [place] Urine Protein Urine Glucose (UA) Urine Ketones Urine Blood Urine Nitrite Ur Leukocyte Esterase Urine RBC Urine WBC Ur Squamous Epith Cells Urine Bacteria Vancomycin Trough COVID-19 ([facility]) COVID-19 [employer] 01/15/22 01/15/22 01/16/22 20:39 20:55 05:59 WBC RBC Hgb Hct MCV MCH MCHC RDW Plt Count MPV Immature Gran % (Auto) Neut % (Auto) Lymph % (Auto) Whitman % (Auto) Eos % (Auto) Baso % (Auto) Lymph # (Auto) Whitman # (Auto) Eos # (Auto) Baso # (Auto) Abs Immat Gran (auto) Absolute Neuts (auto) Absolute Nucleated RBC Nucleated RBC % (auto) PT INR APTT Sodium Potassium Chloride Carbon Dioxide Anion Gap BUN Creatinine 0.88 Estim Creat Clear Calc 92.0 Estimated GFR > 60 POC Glucose 145 H Random Glucose Estimat Average Glucose Hemoglobin A1c % Lactic Acid Lactic Acid F/U @ 2Hr Calcium Magnesium Total Bilirubin AST ALT Alkaline Phosphatase Total Protein Albumin Urine Color Urine Appearance Urine pH Ur Specific [place] Urine Protein Urine Glucose (UA) Urine Ketones Urine Blood Urine Nitrite Ur Leukocyte Esterase Urine RBC Urine WBC Ur Squamous Epith Cells Urine Bacteria Vancomycin Trough 6.9 L COVID-19 ([facility]) COVID-19 [employer] 01/16/22 01/16/22 01/16/22 07:32 11:07 16:22 WBC RBC Hgb Hct MCV MCH MCHC RDW Plt Count MPV Immature Gran % (Auto) Neut % (Auto) Lymph % (Auto) Whitman % (Auto) Eos % (Auto) Baso % (Auto) Lymph # (Auto) [place]man # (Auto) Eos # (Auto) Baso # (Auto) Abs Immat Gran (auto) Absolute Neuts (auto) Absolute Nucleated RBC Nucleated RBC % (auto) PT INR APTT Sodium Potassium Chloride Carbon Dioxide Anion Gap BUN Creatinine Estim Creat Clear Calc Estimated GFR POC Glucose 145 H 154 H 119 H Random Glucose Estimat Average Glucose Hemoglobin A1c % Lactic Acid Lactic Acid F/U @ 2Hr Calcium Magnesium Total Bilirubin AST ALT Alkaline Phosphatase Total Protein Albumin Urine Color Urine Appearance Urine pH Ur Specific [place] Urine Protein Urine Glucose (UA) Urine Ketones Urine Blood Urine Nitrite Ur Leukocyte Esterase Urine RBC Urine WBC Ur Squamous Epith Cells Urine Bacteria Vancomycin Trough COVID-19 ([facility]) COVID-19 [employer] Com 01/16/22 01/17/22 01/17/22 20:39 06:14 07:22 WBC RBC Hgb Hct MCV MCH MCHC RDW Plt Count MPV Immature Gran % (Auto) Neut % (Auto) Lymph % (Auto) Whitman % (Auto) Eos % (Auto) Baso % (Auto) Lymph # (Auto) [place]man # (Auto) Eos # (Auto) Baso # (Auto) Abs Immat Gran (auto) Absolute Neuts (auto) Absolute Nucleated RBC Nucleated RBC % (auto) PT INR APTT Sodium Potassium Chloride Carbon Dioxide Anion Gap BUN Creatinine 0.80 Estim Creat Clear Calc 101.2 Estimated GFR > 60 POC Glucose 169 H 136 H Random Glucose Estimat Average Glucose Hemoglobin A1c % Lactic Acid Lactic Acid F/U @ 2Hr Calcium Magnesium Total Bilirubin AST ALT Alkaline Phosphatase Total Protein Albumin Urine Color Urine Appearance Urine pH Ur Specific [place] Urine Protein Urine Glucose (UA) Urine Ketones Urine Blood Urine Nitrite Ur Leukocyte Esterase Urine RBC Urine WBC Ur Squamous Epith Cells Urine Bacteria Vancomycin Trough COVID-19 ([facility]) COVID-19 [employer] Com 01/17/22 01/17/22 09:57 10:55 WBC RBC Hgb Hct MCV MCH MCHC RDW Plt Count MPV Immature Gran % (Auto) Neut % (Auto) Lymph % (Auto) [place]man % (Auto) Eos % (Auto) Baso % (Auto) Lymph # (Auto) [place] # (Auto) Eos # (Auto) Baso # (Auto) Abs Immat Gran (auto) Absolute Neuts (auto) Absolute Nucleated RBC Nucleated RBC % (auto) PT INR APTT Sodium Potassium Chloride Carbon Dioxide Anion Gap BUN Creatinine Estim Creat Clear Calc Estimated GFR POC Glucose 136 H Random Glucose Estimat Average Glucose Hemoglobin A1c % Lactic Acid Lactic Acid F/U @ 2Hr Calcium Magnesium Total Bilirubin AST ALT Alkaline Phosphatase Total Protein Albumin Urine Color Urine Appearance Urine pH Ur Specific [place] Urine Protein Urine Glucose (UA) Urine Ketones Urine Blood Urine Nitrite Ur Leukocyte Esterase Urine RBC Urine WBC Ur Squamous Epith Cells Urine Bacteria Vancomycin Trough 4.6 L COVID-19 ([facility]) COVID-19 Clin Com Airway Mallampati Class: II Neck ROM: Full Loose/Missing/Broken Teeth: Yes Heart: ok Lungs: ok Assessment and Plan Final Anesthetic Review Family History of Problems with Anesthesia: No History of Problems with Anesthesia: No NPO: Yes ASA Class: III Final Preanesthetic Review: No Changes in Pt Med Stat, Meds/Allgs Chart Reviewed, Consent Obtained/Reviewed and Anes Risks/Benef Reviewed Patient Risk: High Procedure Risk: Low Assessment/Block/Sedation in SS: Assess/Block/Sedation-SS Anesthetic Plan Anesthetic Plan: MAC: and Regional Block Disposition: Standard PACU
--- NOTE | 2022-01-17 14:20 | P.OP_ITS ---
Operative Note Operative Note Date of Service: 01/17/22 Narrative: Preop diagnosis: Osteomyelitis, 3rd toe left, with healing wound Postop diagnosis: The same Procedure: Amputation of the 3rd toe left, including the metatarsal head Surgeon: Ramin Wylie MD commercial loan assistant: VALENCIA Fleming The patient is a 72-year-old male, seen by Dr. Rodriguez with note of a nonhealing wound on the left 3rd toe the plantar aspect distally, along with a signs of osteomyelitis on x-ray. The patient had wanted to proceed with amputation instead of long-term IV antibiotics. He understood the technique of procedure. He was aware of the risks, benefits, and alternatives He was brought to the operating room. He was placed supine under monitored anesthesia care. An ankle block had been done by the anesthesiologist as well. The foot was prepped and draped in the usual sterile fashion. A surgical time- out was done. The patient received cefazolin 2 g IV preoperatively. I infiltrated the planned line of incision surrounding this 3rd toe at the base extending to the dorsum using a blade 15. The incision using blade 15. And this was carried down through the full-thickness skin subcutaneous fat. I used the curved Hsu scissors to dissect through the soft tissues including the tendons surrounding the distal metatarsal the 3rd toe. I was able to identify the metatarsal head. I dissected the metatarsal head to expose this proximally and used a bone cutter to divide this. I completed the amputation by dividing the rest of the soft tissues using curved Hsu. This was then sent for a specimen. I cauterized oozing areas. Once hemostasis was ensured, I copiously irrigated. I reapposed the subcutaneous layer with Dexon 3-0 interrupted sutures. Skin closure was achieved with multiple nylon 3-0 interrupted sutures. Dressings were applied. The area is infiltrated with Marcaine 0.5% for postop analgesia and the procedure was completed. The patient tolerated the procedure well. No complicationsnoted. Initial and final counts of sponges and instruments were correct. Estimated blood loss was about 25 cc The patient was referred to the recovery room with stable vital signs.
[2022-01-17 16:25] LABS: Glucose, Whole Blood 125 mg/dL (60-115)
[2022-01-17 20:25] LABS: Glucose, Whole Blood 172 mg/dL (60-115)
[2022-01-17] MEDS: Insulin Lispro 100 UNIT/ML 3 ML VIAL SUBCUT (23:37)
[2022-01-17] MEDS: Apixaban 5 MG TABLET PO (23:37)
[2022-01-18] VITALS (7 sets, daily range): BP systolic 111–154; BP diastolic 53–71; PULSE 76–95; RESP 17–20; TEMP 36.1–37.1; O2SAT 95–98
[2022-01-18 07:34] LABS: Glucose, Whole Blood 125 mg/dL (60-115)
[2022-01-18 08:11] LABS: Creatinine Clr Calc Pharmacy 102.5; Estimated Glomerular Filt Rate > 60
--- NOTE | 2022-01-18 08:31 | HO.POSTANES ---
Post Anesthesia Evaluation Post Anesthesia Evaluation Vital Signs: Vital Signs Temp Pulse Resp BP Pulse Ox 01/18/22 07:33 97.8 F 76 17 120/57 L 97 01/18/22 03:20 97.6 F 81 18 111/53 L 98 01/17/22 23:54 98.6 F 92 18 123/59 L 97 Anesthesia: Monitored Mental Status: Awake Pain Control: Satisfactory Nausea/Vomiting: None Hydration: Adequate Anesthesia-Related Issues: No Anes. Related Issues
[2022-01-18 08:43] LABS: Vancomycin Trough < 3.0 mcg/mL (10.0-20.0)
--- NOTE | 2022-01-18 10:09 | HO.PM.IMPN ---
Subjective Subjective Date of Service: 01/18/22 Interval History: f/u on cellulitis of the foot and suspected osteomylitis of the foot--no new issues s/p amputation of 3rd toe 01/17 Davis reinserted overnight d/t urinary retention Review of Systems .no fever . some pain in the foot . urinary retention Physical Exam Vital Signs: Vital Signs: Last Vital Signs Temp 97.8 F 01/18/22 07:33 Pulse 76 01/18/22 07:33 Resp 17 01/18/22 07:33 BP 120/57 L 01/18/22 07:33 Pulse Ox 97 01/18/22 07:33 BMI result Body Mass Index 27.7 Const: Other: General: AO X 3, no acute distress Resp: CTA bilateral CVS: S1,S2,RRR GI: +BS, NT, no distention Skin: amputated site dressing in place Neuro: motor grossly intact Psych: appropriate affect Objective Data Active Medications Acetaminophen (Acetaminophen 325 Mg Tablet) 650 mg PO Q6H PRN PRN Reason: Pain, Mild (Pain Scale 1-3) Last Admin: 01/14/22 11:22 Dose: 650 mg Documented by: ALVINA Apixaban (Apixaban 5 Mg Tablet) 5 mg PO BID [facility] Last Admin: 01/17/22 23:37 Dose: 5 mg Documented by: LINO Aspirin (Aspirin 81 Mg Tab.Chew) 81 mg PO DAILY [facility] Last Admin: 01/17/22 08:16 Dose: Not Given Documented by: CATIA Non-Admin Reason: pre op Dextrose (Dextrose 50 % 25 Gm/50 Ml Vial) 25 gm IVPUSH Q15M PRN; Protocol PRN Reason: per Hypoglycemia Standing Ord. Docusate Sodium (Docusate Sodium 100 Mg Capsule) 100 mg PO DAILY PRN PRN Reason: Constipation Fentanyl (Fentanyl Citrate/Pf 100 Mcg/2 Ml Vial) 25 mcg IVPUSH Q5M PRN; Protocol PRN Reason: Pain, Moderate (Pain Scale 4-6 Glucose (Glucose Gel 15 Gm Gel..Gram.) 15 gm PO Q15M PRN; Protocol PRN Reason: per Hypoglycemia Standing Ord. Hydromorphone HCl (Hydromorphone Hcl 0.5 Mg/0.5 Ml Syringe) 0.25 mg IVPUSH Q5M PRN; Protocol PRN Reason: Pain, Severe (Pain Scale 7-10) Cefazolin Sodium 1 gm/ Sodium (Chloride) 50 mls @ 100 mls/hr IV Q8H [facility] Last Infusion: 01/18/22 03:38 Dose: 0 mls/hr Documented by: LINO Lactated Ringer's (Lr) 1,000 mls @ 100 mls/hr IVCONT .Q10H [facility] Last Admin: 01/18/22 02:57 Dose: Not Given Documented by: LINO Non-Admin Reason: IV Running Insulin Human Lispro (Insulin Lispro 100 Unit/Ml 3 Ml Vial) 0 unit SUBCUT QIDACHS [facility]; Protocol Last Admin: 01/18/22 07:38 Dose: Not Given Documented by: LACEY Non-Admin Reason: No Insulin Coverage Melatonin (Melatonin 3 Mg Tablet) 6 mg PO BEDTIME PRN PRN Reason: Insomnia Metoprolol Tartrate (Metoprolol Tartrate 25 Mg Tablet) 25 mg PO BID [facility]; Protocol Last Admin: 01/17/22 23:37 Dose: 25 mg Documented by: LINO Metoprolol Tartrate (Metoprolol Tartrate 5 Mg/5 Ml Vial) 5 mg IVPUSH Q6H PRN PRN Reason: HR>125 Last Admin: 01/14/22 00:52 Dose: 5 mg Documented by: PIPO Ondansetron HCl (Ondansetron Hcl 4 Mg/2 Ml Vial) 4 mg IVPUSH ONCE PRN PRN Reason: Nausea and Vomiting Pharmacy Consult (Consult Rx Perform Med Rec) 1 each MISCELLANE ONCE PRN PRN Reason: Consult order Pharmacy Consult (Consult Rx Vancomycin Dosing) 1 each MISCELLANE DAILY PRN PRN Reason: Consult order Sodium Chloride (0.9 % Sodium Chloride Flush 3 Ml Syringe) 3 ml IVFLUSH QSHIFT [facility] Last Admin: 01/17/22 23:37 Dose: 3 ml Documented by: LINO Vitamin D (Cholecalciferol (Vitamin D3) 25 Mcg Tablet) 25 mcg PO DAILY [facility] Last Admin: 01/17/22 08:20 Dose: 25 mcg Documented by: CATIA Labs CBC & Chem 7: 01/14/22 05:54 01/18/22 07:46 Labs: Laboratory Results - last 24 hr 01/17/22 01/17/22 01/17/22 09:57 10:55 16:22 Estim Creat Clear Calc Estimated GFR POC Glucose 136 H 125 H Vancomycin Trough 4.6 L 01/17/22 01/18/22 01/18/22 20:05 07:30 07:46 Estim Creat Clear Calc Estimated GFR POC Glucose 172 H 125 H Vancomycin Trough < 3.0 L 01/18/22 07:46 Estim Creat Clear Calc 102.5 Estimated GFR > 60 POC Glucose Vancomycin Trough Assessment and Plan (1) Osteomyelitis: Status: Acute (2) Chronic a-fib: Status: Acute Plan 72-year-old male with a past medical history of hypertension, AFib on Eliquis, neuropathy, history of osteomyelitis of the left 2nd toe, history of toe amputation about any ago; peripheral vascular disease, pre diabetes; presented to the hospital today with a chief complaint of generalized weakness.? Noted to have sepsis in the setting of foot infection.? A admitted for further management.? Sepsis/Left 3rd toe cellulitis and diabetic related ulcerand proable acute osteomylitis of 3rd toe -Culture = staph Aureus, Vanco and Zosyn changed to Keflex, will need PICC line Thursday for Iv Abx -Had ampuation on ay 01/[address] Wylie, restart Eliquis today -Echo : no vegetations Staph Aureus Sepsis and bacteremia- -Change Vanco to Keflex -Echo no vegetatation -ID is recommending 6 weeks of IV antibiotics ?Chronic AFIB--Continue home metoprolol and Eliquis.? Urinary retention:? Bladder scan showed 788 cc of urine.? Davis catheter.? Urology follow-up. History of prediabetes:? Will obtain hemoglobin A1c.? Insulin sliding scale. DVT prop--Eliquis Need for inpatient: need for IV Abx for sepsis, acute osteomylitis and awaiting ampuatation planned for tomorrow Quality Stroke Does the patient have a stroke diagnosis?: No VTE Prior VTE?: No VTE Risk Level:: Medical - moderate - high VTE Device Contraindication: Treatment Not Indicated VTE Drug Contraindication: N/A - Med Ordered
[2022-01-18] MEDS: 0.9 % Sodium Chloride Flush 3 ML SYRINGE IVFLUSH ×3 (10:38→20:19)
[2022-01-18] MEDS: Aspirin 81 MG TAB.CHEW PO (10:38)
[2022-01-18] MEDS: Metoprolol Tartrate 25 MG TABLET PO ×2 (10:38→20:19)
[2022-01-18] MEDS: Cholecalciferol (Vitamin D3) 25 MCG TABLET PO (10:38)
[2022-01-18 10:53] LABS: Glucose, Whole Blood 161 mg/dL (60-115)
[2022-01-18] MEDS: Insulin Lispro 100 UNIT/ML 3 ML VIAL SUBCUT ×3 (12:17→20:43)
--- NOTE | 2022-01-18 13:18 | PM.PNGS ---
Subjective Subjective Date of Service: 01/18/22 Interval history: feeling great Physical Exam Vital Signs: Vital Signs: Last Vital Signs Temp 98.2 F 01/18/22 12:00 Pulse 76 01/18/22 12:00 Resp 17 01/18/22 12:00 BP 115/55 L 01/18/22 12:00 Pulse Ox 97 01/18/22 12:00 BMI result Body Mass Index 27.7 Objective Data Active Medications Acetaminophen (Acetaminophen 325 Mg Tablet) 650 mg PO Q6H PRN PRN Reason: Pain, Mild (Pain Scale 1-3) Last Admin: 01/14/22 11:22 Dose: 650 mg Documented by: ALVINA Aspirin (Aspirin 81 Mg Tab.Chew) 81 mg PO DAILY [facility] Last Admin: 01/18/22 10:38 Dose: 81 mg Documented by: LACEY Dextrose (Dextrose 50 % 25 Gm/50 Ml Vial) 25 gm IVPUSH Q15M PRN; Protocol PRN Reason: per Hypoglycemia Standing Ord. Docusate Sodium (Docusate Sodium 100 Mg Capsule) 100 mg PO DAILY PRN PRN Reason: Constipation Fentanyl (Fentanyl Citrate/Pf 100 Mcg/2 Ml Vial) 25 mcg IVPUSH Q5M PRN; Protocol PRN Reason: Pain, Moderate (Pain Scale 4-6 Glucose (Glucose Gel 15 Gm Gel..Gram.) 15 gm PO Q15M PRN; Protocol PRN Reason: per Hypoglycemia Standing Ord. Hydromorphone HCl (Hydromorphone Hcl 0.5 Mg/0.5 Ml Syringe) 0.25 mg IVPUSH Q5M PRN; Protocol PRN Reason: Pain, Severe (Pain Scale 7-10) Cefazolin Sodium 1 gm/ Sodium (Chloride) 50 mls @ 100 mls/hr IV Q8H [facility] Last Infusion: 01/18/22 11:10 Dose: 0 mls/hr Documented by: LACEY Lactated Ringer's (Lr) 1,000 mls @ 100 mls/hr IVCONT .Q10H [facility] Last Admin: 01/18/22 10:44 Dose: Not Given Documented by: LACEY Non-Admin Reason: IV Running Insulin Human Lispro (Insulin Lispro 100 Unit/Ml 3 Ml Vial) 0 unit SUBCUT QIDACHS [facility]; Protocol Last Admin: 01/18/22 12:17 Dose: 2 unit Documented by: LACEY Melatonin (Melatonin 3 Mg Tablet) 6 mg PO BEDTIME PRN PRN Reason: Insomnia Metoprolol Tartrate (Metoprolol Tartrate 25 Mg Tablet) 25 mg PO BID [facility]; Protocol Last Admin: 01/18/22 10:38 Dose: 25 mg Documented by: LACEY Metoprolol Tartrate (Metoprolol Tartrate 5 Mg/5 Ml Vial) 5 mg IVPUSH Q6H PRN PRN Reason: HR>125 Last Admin: 01/14/22 00:52 Dose: 5 mg Documented by: PIPO Ondansetron HCl (Ondansetron Hcl 4 Mg/2 Ml Vial) 4 mg IVPUSH ONCE PRN PRN Reason: Nausea and Vomiting Pharmacy Consult (Consult Rx Perform Med Rec) 1 each MISCELLANE ONCE PRN PRN Reason: Consult order Pharmacy Consult (Consult Rx Vancomycin Dosing) 1 each MISCELLANE DAILY PRN PRN Reason: Consult order Sodium Chloride (0.9 % Sodium Chloride Flush 3 Ml Syringe) 3 ml IVFLUSH QSHIFT [facility] Last Admin: 01/18/22 10:38 Dose: 3 ml Documented by: LACEY Vitamin D (Cholecalciferol (Vitamin D3) 25 Mcg Tablet) 25 mcg PO DAILY [facility] Last Admin: 01/18/22 10:38 Dose: 25 mcg Documented by: LACEY Labs CBC & Chem 7: 01/14/22 05:54 01/18/22 07:46 Labs: Laboratory Results - last 24 hr 01/17/22 01/17/22 01/18/22 16:22 20:05 07:30 Estim Creat Clear Calc Estimated GFR POC Glucose 125 H 172 H 125 H Vancomycin Trough 01/18/22 01/18/22 01/18/22 07:46 07:46 10:50 Estim Creat Clear Calc 102.5 Estimated GFR > 60 POC Glucose 161 H Vancomycin Trough < 3.0 L Procedures Date of Service Date of Service: 01/18/22 Progress Note: A&P Assessment and plan (1) Amputation of toe of left foot: Status: Acute Assessment and Plan: sp amputation of left third toe - incision site looks great. keep covered and change dressing every other day. antibx as per med team fu in the office for suture removal in 10-14 days Fall Risk Details Current Medications: Current Medications Acetaminophen (Acetaminophen 325 Mg Tablet) 650 mg PO Q6H PRN PRN Reason: Pain, Mild (Pain Scale 1-3) Last Admin: 01/14/22 11:22 Dose: 650 mg Documented by: Aspirin (Aspirin 81 Mg Tab.Chew) 81 mg PO DAILY [facility] Last Admin: 01/18/22 10:38 Dose: 81 mg Documented by: Dextrose (Dextrose 50 % 25 Gm/50 Ml Vial) 25 gm IVPUSH Q15M PRN; Protocol PRN Reason: per Hypoglycemia Standing Ord. Docusate Sodium (Docusate Sodium 100 Mg Capsule) 100 mg PO DAILY PRN PRN Reason: Constipation Fentanyl (Fentanyl Citrate/Pf 100 Mcg/2 Ml Vial) 25 mcg IVPUSH Q5M PRN; Protocol PRN Reason: Pain, Moderate (Pain Scale 4-6 Glucose (Glucose Gel 15 Gm Gel..Gram.) 15 gm PO Q15M PRN; Protocol PRN Reason: per Hypoglycemia Standing Ord. Hydromorphone HCl (Hydromorphone Hcl 0.5 Mg/0.5 Ml Syringe) 0.25 mg IVPUSH Q5M PRN; Protocol PRN Reason: Pain, Severe (Pain Scale 7-10) Cefazolin Sodium 1 gm/ Sodium (Chloride) 50 mls @ 100 mls/hr IV Q8H [facility] Last Infusion: 01/18/22 11:10 Dose: Infused Documented by: Lactated Ringer's (Lr) 1,000 mls @ 100 mls/hr IVCONT .Q10H [facility] Last Admin: 01/18/22 10:44 Dose: Not Given Documented by: Insulin Human Lispro (Insulin Lispro 100 Unit/Ml 3 Ml Vial) 0 unit SUBCUT QIDACHS [facility]; Protocol Last Admin: 01/18/22 12:17 Dose: 2 unit Documented by: Melatonin (Melatonin 3 Mg Tablet) 6 mg PO BEDTIME PRN PRN Reason: Insomnia Metoprolol Tartrate (Metoprolol Tartrate 25 Mg Tablet) 25 mg PO BID [facility]; Protocol Last Admin: 01/18/22 10:38 Dose: 25 mg Documented by: Metoprolol Tartrate (Metoprolol Tartrate 5 Mg/5 Ml Vial) 5 mg IVPUSH Q6H PRN PRN Reason: HR>125 Last Admin: 01/14/22 00:52 Dose: 5 mg Documented by: Ondansetron HCl (Ondansetron Hcl 4 Mg/2 Ml Vial) 4 mg IVPUSH ONCE PRN PRN Reason: Nausea and Vomiting Pharmacy Consult (Consult Rx Perform Med Rec) 1 each MISCELLANE ONCE PRN PRN Reason: Consult order Pharmacy Consult (Consult Rx Vancomycin Dosing) 1 each MISCELLANE DAILY PRN PRN Reason: Consult order Sodium Chloride (0.9 % Sodium Chloride Flush 3 Ml Syringe) 3 ml IVFLUSH QSHIFT [facility] Last Admin: 01/18/22 10:38 Dose: 3 ml Documented by: Vitamin D (Cholecalciferol (Vitamin D3) 25 Mcg Tablet) 25 mcg PO DAILY [facility] Last Admin: 01/18/22 10:38 Dose: 25 mcg Documented by: Time Spent With Patient Time: Total time spent is greater than 50% in coordination of care (as documented) at patient's floor/unit and/or counseling patient: Time with patient: less than 15 minutes Quality Stroke Does the patient have a stroke diagnosis?: No VTE Prior VTE?: No VTE Risk Level:: Medical - moderate - high VTE Device Contraindication: Treatment Not Indicated VTE Drug Contraindication: N/A - Med Ordered
[2022-01-18] MEDS: Lactated Ringers 1,000 ML 100 ML IVCONT (15:26)
[2022-01-18 16:38] LABS: Glucose, Whole Blood 168 mg/dL (60-115)
[2022-01-18 20:39] LABS: Glucose, Whole Blood 331 mg/dL (60-115)
[2022-01-19] VITALS (7 sets, daily range): BP systolic 120–176; BP diastolic 57–80; PULSE 78–96; RESP 16–18; TEMP 36.2–37.3; O2SAT 94–98
[2022-01-19] MEDS: Lactated Ringers 1,000 ML 100 ML IVCONT ×2 (01:18→11:51)
[2022-01-19 07:14] LABS: Anion Gap 12 (12-20); Blood Urea Nitrogen 14 mg/dL (9-16); Calcium 8.2 mg/dL (8.4-10.2); Carbon Dioxide 22 mmol/L (22-29); Chloride 108 mmol/L (96-108); Creatinine Clr Calc Pharmacy 112.4; Estimated Glomerular Filt Rate > 60; Glucose Random 134 mg/dL (60-115); Hematocrit 31.4 % (42.0-52.0); Hemoglobin 10.2 g/dl (14.0-18.0); Mean Corpuscular HGB Conc 32.5 g/dl (31.0-36.0); Mean Corpuscular Hemoglobin 30.4 pg (27.0-33.0); Mean Corpuscular Volume 93.7 fL (80.0-98.0); Mean Platelet Volume 9.4 fL (9.4-12.4); Platelet Count 247 X10*3/uL (160-400); Potassium 3.5 mmol/L (3.3-5.1); Red Blood Count 3.35 X10*6/uL (4.60-5.80); Red Cell Distribution Width 13.7 % (11.0-16.0); Sodium 138 mmol/L (135-145); White Blood Count 8.4 X10*3/uL (4.8-10.8)
[2022-01-19 07:43] LABS: Glucose, Whole Blood 129 mg/dL (60-115)
[2022-01-19] MEDS: 0.9 % Sodium Chloride Flush 3 ML SYRINGE IVFLUSH ×3 (08:17→19:38)
[2022-01-19] MEDS: Metoprolol Tartrate 25 MG TABLET PO ×2 (08:17→19:38)
[2022-01-19] MEDS: Aspirin 81 MG TAB.CHEW PO (08:17)
[2022-01-19] MEDS: Cholecalciferol (Vitamin D3) 25 MCG TABLET PO (08:17)
--- NOTE | 2022-01-19 09:28 | HO.PM.IMPN ---
Subjective Subjective Date of Service: 01/19/22 Interval History: f/u on cellulitis of the foot and suspected osteomylitis of the foot--no new issues s/p amputation of 3rd toe 01/17 Davis reinserted overnight d/t urinary retention, has fine rash all over body Review of Systems .no fever . some pain in the foot . urinary retention -rash Physical Exam Vital Signs: Vital Signs: Last Vital Signs Temp 99.2 F 01/19/22 07:53 Pulse 86 01/19/22 07:53 Resp 16 01/19/22 07:53 BP 158/80 H 01/19/22 07:53 Pulse Ox 98 01/19/22 07:53 BMI result Body Mass Index 27.7 Const: Other: General: AO X 3, no acute distress Resp: CTA bilateral CVS: S1,S2,RRR GI: +BS, NT, no distention Skin: amputated site dressing in place, fine rash all over body Neuro: motor grossly intact Psych: appropriate affect Objective Data Active Medications Acetaminophen (Acetaminophen 325 Mg Tablet) 650 mg PO Q6H PRN PRN Reason: Pain, Mild (Pain Scale 1-3) Last Admin: 01/14/22 11:22 Dose: 650 mg Documented by: ALVINA Aspirin (Aspirin 81 Mg Tab.Chew) 81 mg PO DAILY [facility] Last Admin: 01/19/22 08:17 Dose: 81 mg Documented by: LACEY Dextrose (Dextrose 50 % 25 Gm/50 Ml Vial) 25 gm IVPUSH Q15M PRN; Protocol PRN Reason: per Hypoglycemia Standing Ord. Docusate Sodium (Docusate Sodium 100 Mg Capsule) 100 mg PO DAILY PRN PRN Reason: Constipation Fentanyl (Fentanyl Citrate/Pf 100 Mcg/2 Ml Vial) 25 mcg IVPUSH Q5M PRN; Protocol PRN Reason: Pain, Moderate (Pain Scale 4-6 Glucose (Glucose Gel 15 Gm Gel..Gram.) 15 gm PO Q15M PRN; Protocol PRN Reason: per Hypoglycemia Standing Ord. Hydromorphone HCl (Hydromorphone Hcl 0.5 Mg/0.5 Ml Syringe) 0.25 mg IVPUSH Q5M PRN; Protocol PRN Reason: Pain, Severe (Pain Scale 7-10) Cefazolin Sodium 1 gm/ Sodium (Chloride) 50 mls @ 100 mls/hr IV Q8H [facility] Last Admin: 01/19/22 08:09 Dose: Not Given Documented by: LACEY Non-Admin Reason: Physician Held Med Lactated Ringer's (Lr) 1,000 mls @ 100 mls/hr IVCONT .Q10H [facility] Last Admin: 01/19/22 05:09 Dose: Not Given Documented by: MARY Non-Admin Reason: IV Running Insulin Human Lispro (Insulin Lispro 100 Unit/Ml 3 Ml Vial) 0 unit SUBCUT QIDACHS [facility]; Protocol Last Admin: 01/19/22 08:11 Dose: Not Given Documented by: LCAEY Non-Admin Reason: No Insulin Coverage Melatonin (Melatonin 3 Mg Tablet) 6 mg PO BEDTIME PRN PRN Reason: Insomnia Metoprolol Tartrate (Metoprolol Tartrate 25 Mg Tablet) 25 mg PO BID [facility]; Protocol Last Admin: 01/19/22 08:17 Dose: 25 mg Documented by: LACEY Metoprolol Tartrate (Metoprolol Tartrate 5 Mg/5 Ml Vial) 5 mg IVPUSH Q6H PRN PRN Reason: HR>125 Last Admin: 01/14/22 00:52 Dose: 5 mg Documented by: PIPO Ondansetron HCl (Ondansetron Hcl 4 Mg/2 Ml Vial) 4 mg IVPUSH ONCE PRN PRN Reason: Nausea and Vomiting Pharmacy Consult (Consult Rx Perform Med Rec) 1 each MISCELLANE ONCE PRN PRN Reason: Consult order Pharmacy Consult (Consult Rx Vancomycin Dosing) 1 each MISCELLANE DAILY PRN PRN Reason: Consult order Sodium Chloride (0.9 % Sodium Chloride Flush 3 Ml Syringe) 3 ml IVFLUSH QSHIFT [facility] Last Admin: 01/19/22 08:17 Dose: 3 ml Documented by: LACEY Vitamin D (Cholecalciferol (Vitamin D3) 25 Mcg Tablet) 25 mcg PO DAILY [facility] Last Admin: 01/19/22 08:17 Dose: 25 mcg Documented by: LACEY Labs CBC & Chem 7: 01/19/22 06:39 01/19/22 06:39 Labs: Laboratory Results - last 24 hr 01/18/22 01/18/22 01/18/22 10:50 16:34 20:36 MCV MCH MCHC RDW Plt Count MPV Absolute Nucleated RBC Nucleated RBC % (auto) Anion Gap Estim Creat Clear Calc Estimated GFR POC Glucose 161 H 168 H 331 H Random Glucose Calcium 01/19/22 01/19/22 01/19/22 06:39 06:39 07:36 MCV 93.7 MCH 30.4 MCHC 32.5 RDW 13.7 Plt Count 247 MPV 9.4 Absolute Nucleated RBC 0.000 Nucleated RBC % (auto) 0.0 Anion Gap 12 Estim Creat Clear Calc 112.4 Estimated GFR > 60 POC Glucose 129 H Random Glucose 134 H D Calcium 8.2 L Assessment and Plan (1) Osteomyelitis: Status: Acute (2) Chronic a-fib: Status: Acute Plan 72-year-old male with a past medical history of hypertension, AFib on Eliquis, neuropathy, history of osteomyelitis of the left 2nd toe, history of toe amputation about any ago; peripheral vascular disease, pre diabetes; presented to the hospital today with a chief complaint of generalized weakness.? Noted to have sepsis in the setting of foot infection.? A admitted for further management.? Sepsis/Left 3rd toe cellulitis and diabetic related ulcerand proable acute osteomylitis of 3rd toe -Culture = staph Aureus, Vanco and Zosyn changed to Keflex on 01/17 and seem to have devlopped rash to it, will need PICC line Thursday for Iv Abx. Stop Keflex and discuss with ID -Had ampuation on ay 01/[address] Wylie, restart Eliquis today -Echo : no vegetations Staph Aureus Sepsis and bacteremia- -Change Vanco to Keflex -Echo no vegetatation -ID is recommending 6 weeks of IV antibiotics ?Chronic AFIB--Continue home metoprolol and Eliquis.? Urinary retention:? Bladder scan showed 788 cc of urine.? Davis catheter.? Urology consult, add flomax History of prediabetes:? Will obtain hemoglobin A1c.? Insulin sliding scale. DVT prop--Eliquis Need for inpatient: need for IV Abx for sepsis, acute osteomylitis and s/p ampuatation and post surgery care and will need PICC line inserted once blood culture are negative for home infusion of half-way antibiotics Quality Stroke Does the patient have a stroke diagnosis?: No VTE Prior VTE?: No VTE Risk Level:: Medical - moderate - high VTE Device Contraindication: Treatment Not Indicated VTE Drug Contraindication: N/A - Med Ordered
[2022-01-19 11:06] LABS: Glucose, Whole Blood 160 mg/dL (60-115)
[2022-01-19] MEDS: Insulin Lispro 100 UNIT/ML 3 ML VIAL SUBCUT (11:45)
[2022-01-19 16:09] LABS: Glucose, Whole Blood 112 mg/dL (60-115)
[2022-01-19] MEDS: levoFLOXacin/D5W 750 MG/150 ML PIGGYBACK 100 MG IV (18:00)
[2022-01-19 21:11] LABS: Glucose, Whole Blood 149 mg/dL (60-115)
[2022-01-19] MEDS: Apixaban 5 MG TABLET PO (21:16)
[2022-01-20 03:29] VITALS: BP 141/67; PULSE 74; RESP 18; TEMP 36.9; O2SAT 96
[2022-01-20] MEDS: Lactated Ringers 1,000 ML 100 ML IVCONT ×2 (04:22→13:43)
[2022-01-20 06:34] LABS: Estimated Glomerular Filt Rate > 60
[2022-01-20 07:16] VITALS: BP 137/62; PULSE 80; RESP 18; TEMP 36.7; O2SAT 97
[2022-01-20 07:23] LABS: Glucose, Whole Blood 140 mg/dL (60-115)
[2022-01-20] MEDS: Cholecalciferol (Vitamin D3) 25 MCG TABLET PO (08:18)
[2022-01-20] MEDS: Apixaban 5 MG TABLET PO ×2 (08:18→21:42)
[2022-01-20] MEDS: Metoprolol Tartrate 25 MG TABLET PO ×2 (08:18→21:42)
[2022-01-20] MEDS: Aspirin 81 MG TAB.CHEW PO (08:18)
--- NOTE | 2022-01-20 08:18 | PM.PNGS ---
Subjective Subjective Date of Service: 01/20/22 Interval history: denies complaints asking to go home says he feels well Physical Exam Vital Signs: Vital Signs: Last Vital Signs Temp 98.0 F 01/20/22 07:16 Pulse 80 01/20/22 07:16 Resp 18 01/20/22 07:16 BP 137/62 01/20/22 07:16 Pulse Ox 97 01/20/22 07:16 BMI result Body Mass Index 27.7 Const: General: comfortable and no acute distress Resp: Effort & Inspection: normal respiratory effort Extrem: Other: 3rd toe amputation site clean, sutures intact, no infection Objective Data Active Medications Acetaminophen (Acetaminophen 325 Mg Tablet) 650 mg PO Q6H PRN PRN Reason: Pain, Mild (Pain Scale 1-3) Last Admin: 01/14/22 11:22 Dose: 650 mg Documented by: ALVINA Apixaban (Apixaban 5 Mg Tablet) 5 mg PO BID [facility] Last Admin: 01/19/22 21:16 Dose: 5 mg Documented by: HELEN Aspirin (Aspirin 81 Mg Tab.Chew) 81 mg PO DAILY [facility] Last Admin: 01/19/22 08:17 Dose: 81 mg Documented by: LACEY Dextrose (Dextrose 50 % 25 Gm/50 Ml Vial) 25 gm IVPUSH Q15M PRN; Protocol PRN Reason: per Hypoglycemia Standing Ord. Docusate Sodium (Docusate Sodium 100 Mg Capsule) 100 mg PO DAILY PRN PRN Reason: Constipation Fentanyl (Fentanyl Citrate/Pf 100 Mcg/2 Ml Vial) 25 mcg IVPUSH Q5M PRN; Protocol PRN Reason: Pain, Moderate (Pain Scale 4-6 Glucose (Glucose Gel 15 Gm Gel..Gram.) 15 gm PO Q15M PRN; Protocol PRN Reason: per Hypoglycemia Standing Ord. Hydromorphone HCl (Hydromorphone Hcl 0.5 Mg/0.5 Ml Syringe) 0.25 mg IVPUSH Q5M PRN; Protocol PRN Reason: Pain, Severe (Pain Scale 7-10) Lactated Ringer's (Lr) 1,000 mls @ 100 mls/hr IVCONT .Q10H [facility] Last Admin: 01/20/22 04:22 Dose: 100 mls/hr Documented by: HELEN Levofloxacin (Levaquin) 750 mg in 150 mls @ 100 mls/hr IV Q24H [facility] Last Infusion: 01/19/22 19:41 Dose: 0 mls/hr Documented by: HELEN Insulin Human Lispro (Insulin Lispro 100 Unit/Ml 3 Ml Vial) 0 unit SUBCUT QIDACHS [facility]; Protocol Last Admin: 01/20/22 07:29 Dose: Not Given Documented by: CATIA Non-Admin Reason: No Insulin Coverage Melatonin (Melatonin 3 Mg Tablet) 6 mg PO BEDTIME PRN PRN Reason: Insomnia Metoprolol Tartrate (Metoprolol Tartrate 25 Mg Tablet) 25 mg PO BID [facility]; Protocol Last Admin: 01/19/22 19:38 Dose: 25 mg Documented by: HELEN Metoprolol Tartrate (Metoprolol Tartrate 5 Mg/5 Ml Vial) 5 mg IVPUSH Q6H PRN PRN Reason: HR>125 Last Admin: 01/14/22 00:52 Dose: 5 mg Documented by: PIPO Ondansetron HCl (Ondansetron Hcl 4 Mg/2 Ml Vial) 4 mg IVPUSH ONCE PRN PRN Reason: Nausea and Vomiting Pharmacy Consult (Consult Rx Perform Med Rec) 1 each MISCELLANE ONCE PRN PRN Reason: Consult order Pharmacy Consult (Consult Rx Vancomycin Dosing) 1 each MISCELLANE DAILY PRN PRN Reason: Consult order Sodium Chloride (0.9 % Sodium Chloride Flush 3 Ml Syringe) 3 ml IVFLUSH QSHIFT [facility] Last Admin: 01/20/22 07:30 Dose: Not Given Documented by: CATIA Non-Admin Reason: IV Running Vitamin D (Cholecalciferol (Vitamin D3) 25 Mcg Tablet) 25 mcg PO DAILY [facility] Last Admin: 01/19/22 08:17 Dose: 25 mcg Documented by: LACEY Labs CBC & Chem 7: 01/19/22 06:39 01/20/22 06:00 Labs: Laboratory Results - last 24 hr 01/19/22 01/19/22 01/19/22 10:58 16:05 21:07 Estim Creat Clear Calc Estimated GFR POC Glucose 160 H 112 149 H 01/20/22 01/20/22 06:00 07:18 Estim Creat Clear Calc 114.0 Estimated GFR > 60 POC Glucose 140 H Microbiology Microbiology Results: Microbiology 01/18/22 10:45 Blood Culture - Preliminary Blood - Venous No growth after 24 hours. 01/18/22 10:45 Blood Culture - Preliminary Blood - Venous No growth after 24 hours. Procedures Date of Service Date of Service: 01/20/22 Progress Note: A&P Assessment and plan (1) Osteomyelitis: Status: Acute Assessment and Plan: s/p toe amp doing well dressings dry ok to dc home from surgical standpoint ok to see me in office for ffup to remove sutures no weight bearing on forefoot Fall Risk Details Current Medications: Current Medications Acetaminophen (Acetaminophen 325 Mg Tablet) 650 mg PO Q6H PRN PRN Reason: Pain, Mild (Pain Scale 1-3) Last Admin: 01/14/22 11:22 Dose: 650 mg Documented by: Apixaban (Apixaban 5 Mg Tablet) 5 mg PO BID [facility] Last Admin: 01/19/22 21:16 Dose: 5 mg Documented by: Aspirin (Aspirin 81 Mg Tab.Chew) 81 mg PO DAILY [facility] Last Admin: 01/19/22 08:17 Dose: 81 mg Documented by: Dextrose (Dextrose 50 % 25 Gm/50 Ml Vial) 25 gm IVPUSH Q15M PRN; Protocol PRN Reason: per Hypoglycemia Standing Ord. Docusate Sodium (Docusate Sodium 100 Mg Capsule) 100 mg PO DAILY PRN PRN Reason: Constipation Fentanyl (Fentanyl Citrate/Pf 100 Mcg/2 Ml Vial) 25 mcg IVPUSH Q5M PRN; Protocol PRN Reason: Pain, Moderate (Pain Scale 4-6 Glucose (Glucose Gel 15 Gm Gel..Gram.) 15 gm PO Q15M PRN; Protocol PRN Reason: per Hypoglycemia Standing Ord. Hydromorphone HCl (Hydromorphone Hcl 0.5 Mg/0.5 Ml Syringe) 0.25 mg IVPUSH Q5M PRN; Protocol PRN Reason: Pain, Severe (Pain Scale 7-10) Lactated Ringer's (Lr) 1,000 mls @ 100 mls/hr IVCONT .Q10H [facility] Last Admin: 01/20/22 04:22 Dose: 100 mls/hr Documented by: Levofloxacin (Levaquin) 750 mg in 150 mls @ 100 mls/hr IV Q24H [facility] Last Infusion: 01/19/22 19:41 Dose: Infused Documented by: Insulin Human Lispro (Insulin Lispro 100 Unit/Ml 3 Ml Vial) 0 unit SUBCUT QIDACHS [facility]; Protocol Last Admin: 01/20/22 07:29 Dose: Not Given Documented by: Melatonin (Melatonin 3 Mg Tablet) 6 mg PO BEDTIME PRN PRN Reason: Insomnia Metoprolol Tartrate (Metoprolol Tartrate 25 Mg Tablet) 25 mg PO BID [facility]; Protocol Last Admin: 01/19/22 19:38 Dose: 25 mg Documented by: Metoprolol Tartrate (Metoprolol Tartrate 5 Mg/5 Ml Vial) 5 mg IVPUSH Q6H PRN PRN Reason: HR>125 Last Admin: 01/14/22 00:52 Dose: 5 mg Documented by: Ondansetron HCl (Ondansetron Hcl 4 Mg/2 Ml Vial) 4 mg IVPUSH ONCE PRN PRN Reason: Nausea and Vomiting Pharmacy Consult (Consult Rx Perform Med Rec) 1 each MISCELLANE ONCE PRN PRN Reason: Consult order Pharmacy Consult (Consult Rx Vancomycin Dosing) 1 each MISCELLANE DAILY PRN PRN Reason: Consult order Sodium Chloride (0.9 % Sodium Chloride Flush 3 Ml Syringe) 3 ml IVFLUSH QSHIFT [facility] Last Admin: 01/20/22 07:30 Dose: Not Given Documented by: Vitamin D (Cholecalciferol (Vitamin D3) 25 Mcg Tablet) 25 mcg PO DAILY [facility] Last Admin: 01/19/22 08:17 Dose: 25 mcg Documented by: Time Spent With Patient Time: Total time spent is greater than 50% in coordination of care (as documented) at patient's floor/unit and/or counseling patient: Time with patient: 15 - 24 minutes Quality Stroke Does the patient have a stroke diagnosis?: No VTE Prior VTE?: No VTE Risk Level:: Medical - moderate - high VTE Device Contraindication: Treatment Not Indicated VTE Drug Contraindication: N/A - Med Ordered
[2022-01-20] MEDS: Docusate Sodium 100 MG CAPSULE PO (08:22)
[2022-01-20 11:12] VITALS: BP 135/62; PULSE 79; RESP 18; TEMP 36.9; O2SAT 95
[2022-01-20 11:30] LABS: Glucose, Whole Blood 205 mg/dL (60-115)
[2022-01-20] MEDS: Insulin Lispro 100 UNIT/ML 3 ML VIAL SUBCUT ×2 (11:39→21:43)
[2022-01-20] MEDS: Tamsulosin HCL 0.4 MG CAPSULE PO (11:40)
--- NOTE | 2022-01-20 12:02 | MHC.CM.PN ---
Per MD, Patient is not yet medically cleared for dc (needs PICC for likely LT IVABT (VANCO). CM will follow for dc planning.
--- NOTE | 2022-01-20 12:30 | PHA.PROG ---
Admission Date/Time: January 13, 2022 22:21 Indication: bacteremia Weight in k.6 kg Adjusted body weight in K.5 Branscomb body weight in K.94 Serum Creatinine - Last 168 Hours 01/13/22 01/14/22 01/15/22 19:16 05:54 08:10 Creatinine 1.19 1.45 H 0.97 01/16/22 01/17/22 01/18/22 05:59 06:14 07:46 Creatinine 0.88 0.80 0.79 01/19/22 01/20/22 06:39 06:00 Creatinine 0.72 0.71 Estimated CrCl and GFR - Last 168 Hours 01/13/22 01/14/22 01/15/22 19:16 05:54 08:10 Estim Creat Clear Calc 68.0 55.8 83.4 Estimated GFR > 60 48 > 60 01/16/22 01/17/22 01/18/22 05:59 06:14 07:46 Estim Creat Clear Calc 92.0 101.2 102.5 Estimated GFR > 60 > 60 > 60 01/19/22 01/20/22 06:39 06:00 Estim Creat Clear Calc 112.4 114.0 Estimated GFR > 60 > 60 Vancomycin Loading Dose: 1250mg Current Vancomycin Dosing Regimen: 1250 q 12 Vancomycin Monitoring using AUC goal of 400 - 600 range with trough as surrogate marker: 452mg/l/hr Date and Time for next Vancomycin Level to be drawn: 01/21 @ 1100 Vancomycin Trough < 3.0 mcg/mL (10.0-20.0) L 01/18/22 07:46 Pharmacist Comments on Vancomycin Plan: Vancomycin dosing will take advantage of [employer] as a clinical decision support tool that uses Bayesian modeling to calculate individual patient's pharmacokinetic parameters and forecast the patient's drug concentration time course with the target goal AUC 24 range of 400 - 600 mg/L/hr.
[2022-01-20] MEDS: vancomycin HCL 1,250 MG in 0.9 % Sodium Chloride 250 ML 166.67 MG IV (13:40)
[2022-01-20 14:00] VITALS: O2SAT 98
[2022-01-20 15:50] VITALS: BP 145/69; PULSE 111; RESP 18; TEMP 36.8; O2SAT 97
[2022-01-20 16:02] LABS: Glucose, Whole Blood 143 mg/dL (60-115)
[2022-01-20] MEDS: methylPREDNISolone Sod Succ 125 MG/2 ML VIAL IVPUSH (16:29)
--- NOTE | 2022-01-20 16:36 | PC.NURSE ---
1600 finished IV A/B vanco skin increased redness. Dr Pichardo notified. 1620 has sl body tremors skin wm and red. Dr Pichardo aware, ordered IV steroid and given.
--- NOTE | 2022-01-20 16:39 | HO.PM.IMPN ---
Subjective Subjective Date of Service: 01/20/22 Interval History: f/u on cellulitis of the foot and suspected osteomylitis of the foot--no new issues s/p amputation of 3rd toe 01/17 Review of Systems .no fever . some pain in the foot . 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 Neuro: motor grossly intact Psych: appropriate affect Objective Data Active Medications Acetaminophen (Acetaminophen 325 Mg Tablet) 650 mg PO Q6H PRN PRN Reason: Pain, Mild (Pain Scale 1-3) Last Admin: 01/14/22 11:22 Dose: 650 mg Documented by: ALVINA Apixaban (Apixaban 5 Mg Tablet) 5 mg PO BID REPLACED BY [facility] Last Admin: 01/20/22 08:18 Dose: 5 mg Documented by: CATIA Aspirin (Aspirin 81 Mg Tab.Chew) 81 mg PO DAILY REPLACED BY [facility] Last Admin: 01/20/22 08:18 Dose: 81 mg Documented by: CATIA Dextrose (Dextrose 50 % 25 Gm/50 Ml Vial) 25 gm IVPUSH Q15M PRN; Protocol PRN Reason: per Hypoglycemia Standing Ord. Docusate Sodium (Docusate Sodium 100 Mg Capsule) 100 mg PO DAILY PRN PRN Reason: Constipation Last Admin: 01/20/22 08:22 Dose: 100 mg Documented by: CATIA Fentanyl (Fentanyl Citrate/Pf 100 Mcg/2 Ml Vial) 25 mcg IVPUSH Q5M PRN; Protocol PRN Reason: Pain, Moderate (Pain Scale 4-6 Glucose (Glucose Gel 15 Gm Gel..Gram.) 15 gm PO Q15M PRN; Protocol PRN Reason: per Hypoglycemia Standing Ord. Hydromorphone HCl (Hydromorphone Hcl 0.5 Mg/0.5 Ml Syringe) 0.25 mg IVPUSH Q5M PRN; Protocol PRN Reason: Pain, Severe (Pain Scale 7-10) Levofloxacin (Levaquin) 750 mg in 150 mls @ 100 mls/hr IV Q24H REPLACED BY [facility] Last Infusion: 01/19/22 19:41 Dose: 0 mls/hr Documented by: HELEN Vancomycin HCl 1,250 mg/ (Sodium Chloride) 250 mls @ 166.667 mls/hr IV Q12H REPLACED BY [facility] Last Infusion: 01/20/22 15:47 Dose: 0 mls/hr Documented by: CATIA Insulin Human Lispro (Insulin Lispro 100 Unit/Ml 3 Ml Vial) 0 unit SUBCUT QIDACHS REPLACED BY [facility]; Protocol Last Admin: 01/20/22 16:35 Dose: Not Given Documented by: CATIA Non-Admin Reason: No Insulin Coverage Melatonin (Melatonin 3 Mg Tablet) 6 mg PO BEDTIME PRN PRN Reason: Insomnia Metoprolol Tartrate (Metoprolol Tartrate 25 Mg Tablet) 25 mg PO BID REPLACED BY [facility]; Protocol Last Admin: 01/20/22 08:18 Dose: 25 mg Documented by: CATIA Metoprolol Tartrate (Metoprolol Tartrate 5 Mg/5 Ml Vial) 5 mg IVPUSH Q6H PRN PRN Reason: HR>125 Last Admin: 01/14/22 00:52 Dose: 5 mg Documented by: PIPO Ondansetron HCl (Ondansetron Hcl 4 Mg/2 Ml Vial) 4 mg IVPUSH ONCE PRN PRN Reason: Nausea and Vomiting Pharmacy Consult (Consult Rx Perform Med Rec) 1 each MISCELLANE ONCE PRN PRN Reason: Consult order Pharmacy Consult (Consult Rx Vancomycin Dosing) 1 each MISCELLANE DAILY PRN PRN Reason: Consult order Pharmacy Consult (Consult Rx Vancomycin Dosing) 1 each MISCELLANE DAILY PRN PRN Reason: Consult order Sodium Chloride (0.9 % Sodium Chloride Flush 3 Ml Syringe) 3 ml IVFLUSH QSHIFT REPLACED BY [facility] Last Admin: 01/20/22 15:47 Dose: Not Given Documented by: CATIA Non-Admin Reason: IV Running Tamsulosin HCl (Tamsulosin Hcl 0.4 Mg Capsule) 0.4 mg PO DAILY REPLACED BY [facility] Last Admin: 01/20/22 11:40 Dose: 0.4 mg Documented by: CATIA Vitamin D (Cholecalciferol (Vitamin D3) 25 Mcg Tablet) 25 mcg PO DAILY [facility] Last Admin: 01/20/22 08:18 Dose: 25 mcg Documented by: CATIA Labs CBC & Chem 7: 01/19/22 06:39 01/20/22 06:00 Labs: Laboratory Results - last 24 hr 01/19/22 01/20/22 01/20/22 21:07 06:00 07:18 Estim Creat Clear Calc 114.0 Estimated GFR > 60 POC Glucose 149 H 140 H 01/20/22 01/20/22 11:15 15:58 Estim Creat Clear Calc Estimated GFR POC Glucose 205 H 143 H Microbiology Microbiology Results: Microbiology 01/18/22 10:45 Blood Culture - Preliminary Blood - Venous No growth after 48 hours. 01/18/22 10:45 Blood Culture - Preliminary Blood - Venous No growth after 48 hours. Assessment and Plan (1) Osteomyelitis: Status: Acute (2) Chronic a-fib: Status: Acute Plan 72-year-old male with a past medical history of hypertension, AFib on Eliquis, neuropathy, history of osteomyelitis of the left 2nd toe, history of toe amputation about any ago; peripheral vascular disease, pre diabetes; presented to the hospital today with a chief complaint of generalized weakness.? Noted to have sepsis in the setting of foot infection.? A admitted for further management.? Sepsis/Left 3rd toe cellulitis and diabetic related ulcerand proable acute osteomylitis of 3rd toe -Culture = staph Aureus, Vanco and Zosyn changed to Keflex on 01/17 and seem to have devlopped rash to it, will need PICC line Thursday for Iv Abx. Stop Keflex and discuss with ID -Had ampuation on ay 01/[address] Wylie, restart Eliquis today -Echo : no vegetations Staph Aureus Sepsis and bacteremia- -Echo no vegetatation -ID is recommending 6 weeks of IV antibiotics with Vanco, has tendendcy to have red man's syndrome with rapid infusion of vanco so need to slow consdierably ?Chronic AFIB--Continue home metoprolol and Eliquis.? Urinary retention:? Bladder scan showed 788 cc of urine.? Davis catheter.? Urology consult, add flomax History of prediabetes:? Will obtain hemoglobin A1c.? Insulin sliding scale. DVT prop--Eliquis Need for inpatient: need for IV Abx for sepsis, acute osteomylitis and s/p ampuatation and post surgery care and will need PICC line inserted once blood culture are negative for home infusion of residential antibiotics Quality Stroke Does the patient have a stroke diagnosis?: No VTE Prior VTE?: No VTE Risk Level:: Medical - moderate - high VTE Device Contraindication: Treatment Not Indicated VTE Drug Contraindication: N/A - Med Ordered
--- NOTE | 2022-01-20 20:24 | PC.NURSE ---
The whole body rash , skin from head to toe flushed , DR Pichardo was notified solumedrol IV was ordered and administered . Pt is refusing IV antibiotics tonight and DR Pichardo was notified
[2022-01-20 21:22] LABS: Glucose, Whole Blood 209 mg/dL (60-115)
[2022-01-20] MEDS: Acetaminophen 325 MG TABLET 650 MG PO (21:44)
[2022-01-20] MEDS: 0.9 % Sodium Chloride Flush 3 ML SYRINGE IVFLUSH (21:45)
[2022-01-21] VITALS (7 sets, daily range): BP systolic 129–144; BP diastolic 62–78; PULSE 75–110; RESP 18–20; TEMP 36–36.8; O2SAT 95–96
[2022-01-21] MEDS: vancomycin HCL 1,250 MG in 0.9 % Sodium Chloride 250 ML 75 MG IV (01:19)
[2022-01-21 07:22] LABS: Glucose, Whole Blood 220 mg/dL (60-115)
[2022-01-21] MEDS: Aspirin 81 MG TAB.CHEW PO (08:23)
[2022-01-21] MEDS: Metoprolol Tartrate 25 MG TABLET PO ×2 (08:23→21:11)
[2022-01-21] MEDS: Apixaban 5 MG TABLET PO ×2 (08:23→21:11)
[2022-01-21] MEDS: Tamsulosin HCL 0.4 MG CAPSULE PO (08:23)
[2022-01-21] MEDS: Cholecalciferol (Vitamin D3) 25 MCG TABLET PO (08:23)
[2022-01-21] MEDS: Insulin Lispro 100 UNIT/ML 3 ML VIAL SUBCUT ×4 (08:24→21:11)
[2022-01-21] MEDS: 0.9 % Sodium Chloride Flush 3 ML SYRINGE IVFLUSH ×2 (08:25→18:16)
[2022-01-21 08:51] LABS: Creatinine Clr Calc Pharmacy 99.9; Estimated Glomerular Filt Rate > 60
--- NOTE | 2022-01-21 10:39 | P.PNIM_ITS ---
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 some pain in the foot . 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 Neuro: motor grossly intact Psych: appropriate affect Objective Data Active Medications Acetaminophen (Acetaminophen 325 Mg Tablet) 650 mg PO Q6H PRN PRN Reason: Pain, Mild (Pain Scale 1-3) Last Admin: 01/20/22 21:44 Dose: 650 mg Documented by: BRADLEY Apixaban (Apixaban 5 Mg Tablet) 5 mg PO BID [facility] Last Admin: 01/21/22 08:23 Dose: 5 mg Documented by: FELIPA Aspirin (Aspirin 81 Mg Tab.Chew) 81 mg PO DAILY [facility] Last Admin: 01/21/22 08:23 Dose: 81 mg Documented by: FELIPA Dextrose (Dextrose 50 % 25 Gm/50 Ml Vial) 25 gm IVPUSH Q15M PRN; Protocol PRN Reason: per Hypoglycemia Standing Ord. Docusate Sodium (Docusate Sodium 100 Mg Capsule) 100 mg PO DAILY PRN PRN Reason: Constipation Last Admin: 01/20/22 08:22 Dose: 100 mg Documented by: CATIA Fentanyl (Fentanyl Citrate/Pf 100 Mcg/2 Ml Vial) 25 mcg IVPUSH Q5M PRN; Protocol PRN Reason: Pain, Moderate (Pain Scale 4-6 Glucose (Glucose Gel 15 Gm Gel..Gram.) 15 gm PO Q15M PRN; Protocol PRN Reason: per Hypoglycemia Standing Ord. Hydromorphone HCl (Hydromorphone Hcl 0.5 Mg/0.5 Ml Syringe) 0.25 mg IVPUSH Q5M PRN; Protocol PRN Reason: Pain, Severe (Pain Scale 7-10) Vancomycin HCl 1,250 mg/ (Sodium Chloride) 250 mls @ 166.667 mls/hr IV Q12H [facility] Last Infusion: 01/21/22 04:57 Dose: 0 mls/hr Documented by: BRI Insulin Human Lispro (Insulin Lispro 100 Unit/Ml 3 Ml Vial) 0 unit SUBCUT QIDACHS [facility]; Protocol Last Admin: 01/21/22 08:24 Dose: 4 unit Documented by: FELIPA Melatonin (Melatonin 3 Mg Tablet) 6 mg PO BEDTIME PRN PRN Reason: Insomnia Metoprolol Tartrate (Metoprolol Tartrate 25 Mg Tablet) 25 mg PO BID [facility]; Prot ocol Last Admin: 01/21/22 08:23 Dose: 25 mg Documented by: FELIPA Metoprolol Tartrate (Metoprolol Tartrate 5 Mg/5 Ml Vial) 5 mg IVPUSH Q6H PRN PRN Reason: HR>125 Last Admin: 01/14/22 00:52 Dose: 5 mg Documented by: PIPO Ondansetron HCl (Ondansetron Hcl 4 Mg/2 Ml Vial) 4 mg IVPUSH ONCE PRN PRN Reason: Nausea and Vomiting Pharmacy Consult (Consult Rx Perform Med Rec) 1 each MISCELLANE ONCE PRN PRN Reason: Consult order Pharmacy Consult (Consult Rx Vancomycin Dosing) 1 each MISCELLANE DAILY PRN PRN Reason: Consult order Sodium Chloride (0.9 % Sodium Chloride Flush 3 Ml Syringe) 3 ml IVFLUSH QSHIFT [facility] Last Admin: 01/21/22 08:25 Dose: 3 ml Documented by: FELIPA Tamsulosin HCl (Tamsulosin Hcl 0.4 Mg Capsule) 0.4 mg PO DAILY [facility] Last Admin: 01/21/22 08:23 Dose: 0.4 mg Documented by: FELIPA Vitamin D (Cholecalciferol (Vitamin D3) 25 Mcg Tablet) 25 mcg PO DAILY [facility] Last Admin: 01/21/22 08:23 Dose: 25 mcg Documented by: FELIPA Labs CBC & Chem 7: 01/19/22 06:39 01/21/22 07:57 Labs: Laboratory Results - last 24 hr 01/20/22 01/20/22 01/20/22 11:15 15:58 21:18 Estim Creat Clear Calc Estimated GFR POC Glucose 205 H 143 H 209 H 01/21/22 01/21/22 07:07 07:57 Estim Creat Clear Calc 99.9 Estimated GFR > 60 POC Glucose 220 H Microbiology Microbiology Results: Microbiology 01/18/22 10:45 Blood Culture - Preliminary Blood - Venous No growth after 48 hours. 01/18/22 10:45 Blood Culture - Preliminary Blood - Venous No growth after 48 hours. Assessment and Plan (1) Osteomyelitis: Status: Acute (2) Chronic a-fib: Status: Acute Plan 72-year-old male with a past medical history of hypertension, AFib on Eliquis, neuropathy, history of osteomyelitis of the left 2nd toe, history of toe ampu tation about any ago; peripheral vascular disease, pre diabetes; presented to the hospital today with a chief complaint of generalized weakness.? Noted to have sepsis in the setting of foot infection.? A admitted for further management.? Sepsis/Left 3rd toe cellulitis and diabetic related ulcerand proable acute osteomylitis of 3rd toe -Culture = staph Aureus, Vanco and Zosyn changed to Keflex on 01/17 and seem to have devlopped rash to it, will need PICC line Thursday for Iv Abx. Stop Keflex and discuss with ID -Had ampuation on ay 01/[address] Wylie, restart Eliquis today -Echo : no vegetations Staph Aureus Sepsis and bacteremia- -Echo no vegetatation -ID is recommending 6 weeks of IV antibiotics with Vanco, has tendendcy to have red man's syndrome with rapid infusion of vanco so need to slow consdierably ?Chronic AFIB--Continue home metoprolol and Eliquis.? Urinary retention:? Bladder scan showed 788 cc of urine.? Davis catheter.? Urology consult, add flomax History of prediabetes:? Will obtain hemoglobin A1c.? Insulin sliding scale. DVT prop--Eliquis Need for inpatient: need for IV Abx for sepsis, acute osteomylitis and s/p ampuatation and post surgery care and will need PICC , he doesn't think he can do self wound care at home and therefore will need rehab Quality Stroke Does the patient have a stroke diagnosis?: No VTE Prior VTE?: No VTE Risk Level:: Medical - moderate - high VTE Device Contraindication: Treatment Not Indicated VTE Drug Contraindication: N/A - Med Ordered
[2022-01-21 11:20] LABS: Glucose, Whole Blood 218 mg/dL (60-115)
[2022-01-21 12:29] LABS: Vancomycin Random 13.2 mcg/mL (15-20)
--- NOTE | 2022-01-21 12:54 | HE.PHANOTE ---
VANCOMYCIN DOSING ADDENDUM Based of trough of 13.2 and patient infusion related reaction dose decrease to 1000mg q 12. Rate decreased to 2 hours and benadryl added 30min before dose. Next trough tomorrow 01/22 @ 1100. Predicted AUC 438
[2022-01-21 13:29] LABS: COVID-19 Test Negative (Negative)
--- NOTE | 2022-01-21 17:18 | HO.PICC ---
PICC Line Insertion NPICC Diagnosis: [left foot osteomyelitis] Indication: [group home antibiotics needed] Pertinent Labs: [reviewed] Technique: Following informed consent including risks, benefits and alternatives and using sterile technique including cap and mask, sterile gown, glove and drape, the [right] arm was prepped and draped in the usual sterile fashion of full barrier technique with CHG. Following completion of [place] Protocol the skin and soft tissues were anesthetized with 1% Lidocaine plain. Using ultrasound guidance, [right basilic] vein access was attempted twice unsuccessfully by Malika Vargas. Right brachial vein access was obtained on second attempt by Yesi Abdi RN. Over an 0.018 wire through peel-away sheath, a [4 FR single lumen] PICC line was positioned. Catheter length is [45 CM] internal length, [0 CM] external length, for a total trimmed length of [45 CM]. The procedure was performed in [S272]. Tip verification was performed by Taylor Hi with Sherlock 3CG. Tip located in SVC. Ultrasound was used to document vein patency and for needle entry. A formal ultrasound picture and cardiac rhythm strip was recorded. [employer] Pharmacist has released the line for use and it is currently dressed with a StatLock, Tegaderm, and CHG disc. Verification has been performed for blood return and line patency. Arm Circumference: [26 CM] Equipment: [AppUpper - ASO Power PICC Solo] Catheter Type: [4FR single lumen PICC] Lot #: [[id number]]
[2022-01-21 17:34] LABS: Glucose, Whole Blood 214 mg/dL (60-115)
[2022-01-21] MEDS: Famotidine/PF 20 MG/2 ML VIAL IVPUSH (18:15)
[2022-01-21] MEDS: methylPREDNISolone Sod Succ 125 MG/2 ML VIAL 60 MG IVPUSH (18:15)
[2022-01-21] MEDS: diphenhydrAMINE HCL 25 MG TABLET PO (18:16)
[2022-01-21] MEDS: levoFLOXacin/D5W 750 MG/150 ML PIGGYBACK 100 MG IV (18:20)
[2022-01-21 20:07] LABS: Glucose, Whole Blood 213 mg/dL (60-115)
[2022-01-22] VITALS: BP 122/61; PULSE 72; RESP 16; TEMP 36.7; O2SAT 95
[2022-01-22] MEDS: diphenhydrAMINE HCL 25 MG TABLET PO (00:43)
[2022-01-22] MEDS: 0.9 % Sodium Chloride Flush 3 ML SYRINGE IVFLUSH ×2 (00:43→08:05)
[2022-01-22 04:00] VITALS: BP 129/60; PULSE 71; RESP 16; TEMP 36.3; O2SAT 96
[2022-01-22 07:12] LABS: Glucose, Whole Blood 220 mg/dL (60-115)
[2022-01-22 08:00] VITALS: BP 150/72; PULSE 71; RESP 18; TEMP 36.4; O2SAT 97
[2022-01-22] MEDS: Insulin Lispro 100 UNIT/ML 3 ML VIAL SUBCUT ×2 (08:04→11:52)
[2022-01-22] MEDS: Apixaban 5 MG TABLET PO (08:05)
[2022-01-22] MEDS: Metoprolol Tartrate 25 MG TABLET PO (08:05)
[2022-01-22] MEDS: Cholecalciferol (Vitamin D3) 25 MCG TABLET PO (08:05)
[2022-01-22] MEDS: Tamsulosin HCL 0.4 MG CAPSULE PO (08:05)
[2022-01-22] MEDS: Aspirin 81 MG TAB.CHEW PO (08:05)
--- NOTE | 2022-01-22 10:03 | MHC.CM.PN ---
Per MD, Patient will be medically cleared for dc to STR/SNF today. Patient will dc to his first choice SNF- [facility] today at 12:30 PM, via [facility]. IMM addressed with Patient yesterday and the original was given to him and a copy was placed on the chart. Patient is aware of and in agreement with the dc plan.
[2022-01-22 11:03] LABS: Glucose, Whole Blood 218 mg/dL (60-115)
--- NOTE | 2022-01-22 11:26 | PM.DS ---
DS: Providers Provider Date of Service: 01/22/22 Date of admission: 01/13/22 22:21 Primary care physician: Ramin Medrano MD Consults: 01/13/22 22:17 Consult to Infectious Diseases Routine Consulting Provider: Danisha Gomez Reason for consultation: cellulitis Consult to Vascular Surgery Routine Consulting Provider: Guillermo Rodriguez Reason for consultation: Foot infection 01/16/22 11:53 Consult to General Surgery Routine Consulting Provider: Ramin Wylie Reason for consultation: foot infection DS: Diagnosis Discharge Diagnosis (1) Osteomyelitis: Status: Acute DS: Summary Hospital Course Hospital Course: Chief Complaint: Generalized weakness 72-year-old male with a past medical history of hypertension, AFib on Eliquis, neuropathy, history of osteomyelitis of the left 2nd toe, history of toe amputation about any ago; peripheral vascular disease, pre diabetes; presented to the hospital today with a chief complaint of generalized weakness.? Patient reported that he felt generally weak and unable to get up from the bed.? Denies any falls or trauma.? Mentions that he has to amputation about any ago and has an infection on the left 3rd toe and has an appointment to follow-up with vascular surgery clinic tomorrow.? Denies any fevers and chills.? Denies any cough or sputum production.? Denies any urinary symptoms.? Denies any chest pain or palpitations.? Review of all other systems is negative except mentioned above ER course: Per ER team patient noted to have tachycardia, fever, lactic acidosis, lactic acidosis; sepsis in the setting of left 3rd toe cellulitis.? Given antibiotics.? Admitted to the hospital for further management.? Also mentioned that patient reported fall(which he denied to me) to the ER team and had a CT head done which showed no acute findings. Hospital course: Sepsis/Left 3rd toe cellulitis? and diabetic related ulcerand proable acute osteomylitis of 3rd toe -Blood Culture = staph Aureus. He was treated initially with Vanco and Zosyn which was later changed to Vanco alone but then he developped an allergic rash that we initially thought to be sharlene syndrome unfortunately he continues to have diffuse rash lasting days with administration of Vancomycin and therefore changing to IV Levquin which is also sensitive to. He had ampuation on 01/17 by? Dr. Wylie. -Echocardiogram showed no vegetations or endocarditis. Repeat blood cultures have been negative. Staph Aureus Sepsis and bacteremia---See above for management. ?Chronic AFIB--Continue home metoprolol and Eliquis.? Urinary retention:? Bladder scan showed 788 cc of urine.? Davis catheter.? Urology consult, add flomax History of prediabetes:? Will obtain hemoglobin A1c.? Insulin sliding scale. Time Spent with Patient Time attestation: Total time spent providing and/or coordinating discharge services: Discharge coordination time: Greater than 30 minutes Quality: Stroke Does the patient have a stroke diagnosis?: No Physical Exam Vital Signs: Vital Signs: Selected Entries 01/22/22 08:00 Temperature 97.6 F Pulse Rate 71 Respiratory Rate 18 Blood Pressure 150/72 H Pulse Oximetry 97 Oxygen Delivery Me thod Room Air Const: Other: General: AO X 3, no acute distress Resp:? 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 motor grossly intact Psych: appropriate affect DS: Data Data Completed and Pending Completed studies during hospitalization [Text1]: Procedures Detachment at Left 1st Toe, Complete, Open Approach (01/23/21) Detachment at Left 2nd Toe, Low, Open Approach (10/10/20) Dilation of Left Posterior Tibial Artery, Percutaneous Approach (01/23/21) Excision of Left Foot Skin, External Approach (01/23/21) Pending studies at discharge: Pending at discharge 01/17/22 14:07 Surgical [PTH] Routine Labs on day of discharge: Laboratory Results - last 24 hr 01/19/22 01/19/22 01/19/22 10:58 16:05 21:07 Creatinine Estim Creat Clear Calc Estimated GFR POC Glucose 160 H 112 149 H 01/20/22 01/20/22 06:00 07:18 Creatinine 0.71 Estim Creat Clear Calc 114.0 Estimated GFR > 60 POC Glucose 140 H Preliminary micro results at discharge 01/18/22 10:45 Blood Culture - Preliminary Blood - Venous No growth after 24 hours. 01/18/22 10:45 Blood Culture - Preliminary Blood - Venous No growth after 24 hours. Discharge Plan Discharge Anticipated Discharge Date/Time: 01/22/22 11:16 Patient Disposition: Xfer SNF Discharge Diagnosis: Osteomyelitis of the foot Referrals: [facility] [Outside] - 1 Week Ramin Medrano MD [Primary Care Provider] - 1 Week Discharge Medications: New levofloxacin in D5W 750 mg/150 mL Piggyback 750 mg IV Q24H 40 Days 0RF Continued Eliquis 5 mg tablet 5 mg PO BID 90 Days Qty: 180 0RF Hold Instructions: Resume on 10/12/20. Resume taking your Eliquis on 10/12/2020, after your visit with the visiting nurse. metoprolol tartrate 25 mg tablet 25 mg PO BID 90 Days Qty: 180 3RF aspirin 81 mg Tablet,Chewable 81 mg PO DAILY Qty: 30 0RF cholecalciferol (vitamin D3) 25 mcg (1,000 unit) capsule 25 mcg PO DAILY 0RF (DME) [employer] off loading boot Kit See Rx Instructions .ROUTE .MEDSUPPLY Qty: 1 0RF Rx Instructions: As directed (DME) lancets 28 gauge misc See Rx Instructions ea topical DAILY Qty: 100 0RF Rx Instructions: As directed Discharge Orders: Discharge Order (Routine); Ordered 01/22/22 Ordered By: Aditya Pichardo Diet: advance to usual diet Activity on Discharge: As tolerated Stand Alone Forms: Patient Portal Discharge page Activity Restrictions/Additional Instructions: Dry dressings with gauze on the amputation site Wrap the foot with Kerlix roll No weight-bearing on the forefoot Care Plan Goals: Full recovery from amputation Health Concerns: osteomylitis that require amputation Plan of Treatment: Take antibiotics (Levaquin)as recommended and follow up with your Doctor Assessment: as above
--- NOTE | 2022-01-22 12:09 | PM.UROCN ---
History of Present Illness Consult details Consult date: 01/22/22 Narrative: Shashank is a pleasant male. Admits with generalized weakness Davis catheter placed for retention Failure of voiding trial after 2 days Has been on alpha-esha Prior borderline PSA and will addl tomorrow Review of Systems Constitutional: Constitutional: Reports as per HPI and Reports no additional constitutional complaints Cardiovascular: Cardiovascular: Reports as per HPI and Reports no additional cardiovascular complaints Respiratory: Respiratory: Reports as per HPI and Reports no additional respiratory complaints Gastrointestinal: Gastrointestinal: Reports as per HPI and Reports no additional gastrointestinal complaints Genitourinary: Genitourinary: Reports as per HPI Musculoskeletal: Musculoskeletal: Reports no additional musculoskeletal complaints and Reports as per HPI Neurologic: Reports system reviewed and no additional complaints, except as documented and Reports as per HPI [facility] Past Medical History Medical History (Updated 01/22/22 @ 12:12 by David Boateng MD) Amputated toe of right foot Amputation of great toe Arrhythmia Chronic a-fib History of amputation of toe History of heart valve abnormality History of neuropathy Osteomyelitis Osteomyelitis Osteomyelitis of second toe of left foot Pre-diabetes Ulcer of left second toe Family History Family History Mother No problems noted. Family history: reviewed and not pertinent Surgical History Surgical History Hx of amputation Status post ORIF of fracture of ankle Social History Social History Household Members: Family Housing: House Do you presently have visiting nurse or other home services: No Alcohol intake: never Patient Tobacco Use Status: Never used Tobacco Second Hand Smoke Exposure: No Advance Directives Date on File: 08/07/20 service: No Current occupational status: retired Meds Allergies Allergy/AdvReac Type Severity Reaction Status Date / Time penicillin V Allergy Intermediate rash Verified 12/30/21 11:40 Erythromycin Allergy Intermediate diarrhea Uncoded 03/14/21 10:20 Active Medications: Current Medications Acetaminophen (Acetaminophen 325 Mg Tablet) 650 mg PO Q6H PRN PRN Reason: Pain, Mild (Pain Scale 1-3) Last Admin: 01/20/22 21:44 Dose: 650 mg Documented by: Apixaban (Apixaban 5 Mg Tablet) 5 mg PO BID [facility] Last Admin: 01/22/22 08:05 Dose: 5 mg Documented by: Aspirin (Aspirin 81 Mg Tab.Chew) 81 mg PO DAILY [facility] Last Admin: 01/22/22 08:05 Dose: 81 mg Documented by: Dextrose (Dextrose 50 % 25 Gm/50 Ml Vial) 25 gm IVPUSH Q15M PRN; Protocol PRN Reason: per Hypoglycemia Standing Ord. Diphenhydramine HCl (Diphenhydramine Hcl 25 Mg Tablet) 25 mg PO 0030,1230 [facility] Last Admin: 01/22/22 00:43 Dose: 25 mg Documented by: Docusate Sodium (Docusate Sodium 100 Mg Capsule) 100 mg PO DAILY PRN PRN Reason: Constipation Last Admin: 01/20/22 08:22 Dose: 100 mg Documented by: Fentanyl (Fentanyl Citrate/Pf 100 Mcg/2 Ml Vial) 25 mcg IVPUSH Q5M PRN; Protocol PRN Reason: Pain, Moderate (Pain Scale 4-6 Glucose (Glucose Gel 15 Gm Gel..Gram.) 15 gm PO Q15M PRN; Protocol PRN Reason: per Hypoglycemia Standing Ord. Hydromorphone HCl (Hydromorphone Hcl 0.5 Mg/0.5 Ml Syringe) 0.25 mg IVPUSH Q5M PRN; Protocol PRN Reason: Pain, Severe (Pain Scale 7-10) Levofloxacin (Levaquin) 750 mg in 150 mls @ 100 mls/hr IV Q24H [facility] Last Infusion: 01/21/22 21:12 Dose: Infused Documented by: Insulin Human Lispro (Insulin Lispro 100 Unit/Ml 3 Ml Vial) 0 unit SUBCUT QIDACHS [facility]; Protocol Last Admin: 01/22/22 11:52 Dose: 4 unit Documented by: Melatonin (Melatonin 3 Mg Tablet) 6 mg PO BEDTIME PRN PRN Reason: Insomnia Metoprolol Tartrate (Metoprolol Tartrate 25 Mg Tablet) 25 mg PO BID [facility]; Protocol Last Admin: 01/22/22 08:05 Dose: 25 mg Documented by: Metoprolol Tartrate (Metoprolol Tartrate 5 Mg/5 Ml Vial) 5 mg IVPUSH Q6H PRN PRN Reason: HR>125 Last Admin: 01/14/22 00:52 Dose: 5 mg Documented by: Ondansetron HCl (Ondansetron Hcl 4 Mg/2 Ml Vial) 4 mg IVPUSH ONCE PRN PRN Reason: Nausea and Vomiting Pharmacy Consult (Consult Rx Perform Med Rec) 1 each MISCELLANE ONCE PRN PRN Reason: Consult order Pharmacy Consult (Consult Rx Vancomycin Dosing) 1 each MISCELLANE DAILY PRN PRN Reason: Consult order Sodium Chloride (0.9 % Sodium Chloride Flush 3 Ml Syringe) 3 ml IVFLUSH QSHIFT [facility] Last Admin: 01/22/22 08:05 Dose: 3 ml Documented by: Tamsulosin HCl (Tamsulosin Hcl 0.4 Mg Capsule) 0.4 mg PO DAILY [facility] Last Admin: 01/22/22 08:05 Dose: 0.4 mg Documented by: Vitamin D (Cholecalciferol (Vitamin D3) 25 Mcg Tablet) 25 mcg PO DAILY [facility] Last Admin: 01/22/22 08:05 Dose: 25 mcg Documented by: Home Medications Medication Instructions Recorded Confirmed Last Taken Type cholecalciferol (vitamin D3) 25 25 mcg PO DAILY 10/23/20 01/13/22 01/13/22 History mcg (1,000 unit) capsule lancets 28 gauge #100 ea 03/14/21 12/09/21 Unknown History Physical Exam Vital Signs: Vital Signs: Last Vital Signs Temp 97.6 F 01/22/22 08:00 Pulse 71 01/22/22 08:00 Resp 18 01/22/22 08:00 BP 150/72 H 01/22/22 08:00 Pulse Ox 97 01/22/22 08:00 BMI result Body Mass Index 27.7 Const: General: cooperative, healthy appearing, comfortable and no acute distress Orientation/consciousness: patient oriented x3 HEENT: Face and sinus: Yes normal facial exam Mouth: moist mucous membranes Neck: Neck: Yes normal visual inspection, Yes full ROM and Yes trachea midline Chest: Chest palpation & inspection: normal inspection of the chest Resp: Effort & Inspection: normal respiratory effort, able to speak in complete sentences and no respiratory distress GI: Inspection: Yes normal to inspection Back/Spine/Pelvis: Cervical Spine: normal cervical lordosis Thoracic/Lumbar Spine: thoracic and lumbar spine normal to inspection Skin: General skin exam: no rashes or lesions noted Neuro: General: patient oriented x3, tone normal and moves all extremities Extrem: General: Yes normal to inspection and Yes capillary refill normal Results Labs Result diagrams: 01/19/22 06:39 01/21/22 07:57 Labs: Abnormal lab results 01/21/22 01/21/22 01/21/22 Range/Units 11:19 17:32 20:03 POC Glucose 214 H 213 H (60-115) mg/dL Random Vancomycin 13.2 L (15-20) mcg/mL 01/22/22 01/22/22 Range/Units 07:08 10:59 POC Glucose 220 H 218 H (60-115) mg/dL Random Vancomycin (15-20) mcg/mL Urine 01/13/22 Range/Units 20:44 Urine Color YELLOW Urine Appearance CLEAR Urine pH 5.5 (5.0-8.0) Ur Specific [place] 1.020 (1.005-1.025) Urine Protein TRACE (NEG-TRACE) MG/DL Urine Glucose (UA) 500 H (NEG) MG/DL All other labs normal. Assessment and Plan (1) Urinary retention with incomplete bladder emptying: Status: Acute Plan Voiding trial Add finasteride Procedures Date of Service Date of Service: 01/22/22
== END 2022-01-22 13:10 | disposition skilled nursing facility (03) | DRG 854 ==
LOC: HO.ED 19:00 → HO.EDOVER 22:26 → HO.IMC 01-15 12:32
PROVIDERS: Surgery; Admitting Provider Hospitalist; Emergency Provider Internal Medicine; PCP Internal Medicine; Visit Provider Internal Medicine
PROC: 0Y6U0Z0 Detachment at Left 3rd Toe, Complete, Open Approach (ICD-10-PCS; principal; 2022-01-17 13:00)
DX: A41.01 Sepsis due to Methicillin susceptible Staphylococcus aureus (principal); M86.172 Other acute osteomyelitis, left ankle and foot; Z20.822 Contact with and (suspected) exposure to COVID-19; I48.0 Paroxysmal atrial fibrillation; E11.40 Type 2 diabetes mellitus with diabetic neuropathy, unspecified; L27.0 Generalized skin eruption due to drugs and medicaments taken internally; T36.8X5A Adverse effect of other systemic antibiotics, initial encounter; E11.51 Type 2 diabetes mellitus with diabetic peripheral angiopathy without gangrene; E11.69 Type 2 diabetes mellitus with other specified complication; L03.032 Cellulitis of left toe; R33.9 Retention of urine, unspecified; Z88.0 Allergy status to penicillin; Z79.01 Long term (current) use of anticoagulants; Z79.82 Long term (current) use of aspirin; Z79.899 Other long term (current) drug therapy
CPT/HCPCS: 36415; 36573; 70450; 71045; 73620; 80048; 80053; 80202; 81001; 82565; 82947; 83036; 83605; 83735; 85025; 85027; 85610; 85730; 87040; 87077; 87186; 87205; 87635; 88305; 88311; 93005; 93306; 96361; 96365; 96367; 97162; 99024; 99285; C1751; C1758; J0690; J0692; J0696; J1956; J2930; J3010; J3370; Q0163

== ENCOUNTER → 2022-02-05 11:17 | Outpatient (BNVA) | payer MEDICARE, BC, SELFPAY | PROVIDERS: PCP Internal Medicine; Referring Provider Internal Medicine; Visit Provider Surgery | DX: Z89.429 Acquired absence of other toe(s), unspecified side (principal) | CPT/HCPCS: 99202; 99212 ==

== ENCOUNTER → 2022-02-24 10:57 | Outpatient (BNVA) | payer MEDICARE, BC, SELFPAY | PROVIDERS: PCP Internal Medicine; Visit Provider Internal Medicine | DX: Z86.19 Personal history of other infectious and parasitic diseases (principal); Z89.422 Acquired absence of other left toe(s) | CPT/HCPCS: 99212 ==

== ENCOUNTER → 2022-03-05 14:10 | Outpatient (BNVA) | payer MEDICARE, BC, SELFPAY | PROVIDERS: PCP Internal Medicine; Referring Provider Internal Medicine; Visit Provider Surgery | DX: Z09 Encounter for follow-up examination after completed treatment for conditions other than malignant neoplasm (principal); Z89.422 Acquired absence of other left toe(s) | CPT/HCPCS: 99212 ==

== ENCOUNTER 2022-04-02 11:09 | Outpatient (REF) | payer MEDICARE, BC, SELFPAY ==
[2022-04-02 13:05] LABS: MANUAL DIFF FLAG NO
[2022-04-02 13:07] LABS: Basophils Absolute Auto 0.1 X10*3/uL (0.0-0.2); Basophils Percent Auto 0.6 % (0-2); Eosinophils Absolute Auto 0.4 X10*3/uL (0.0-0.4); Eosinophils Percent Auto 3.3 % (0-4); Hematocrit 38.7 % (42.0-52.0); Hemoglobin 12.8 g/dl (14.0-18.0); Imm Gran Abs Auto 0.04 X10*3/uL (0.00-0.03); Imm Gran Pct Auto 0.4 % (0.0-0.4); Lymphocytes Absolute Auto 2.2 X10*3/uL (1.2-4.9); Lymphocytes Percent Auto 20.5 % (20-40); Mean Corpuscular HGB Conc 33.1 g/dl (31.0-36.0); Mean Corpuscular Hemoglobin 29.5 pg (27.0-33.0); Mean Corpuscular Volume 89.2 fL (80.0-98.0); Mean Platelet Volume 9.1 fL (9.4-12.4); Monocytes Absolute Auto 0.8 X10*3/uL (0.1-1.2); Monocytes Percent Auto 7.3 % (2-11); Neutrophils Absolute Auto 7.3 x10*3/uL (2.0-8.3); Neutrophils Percent Auto 67.9 % (45-73); Platelet Count 427 X10*3/uL (160-400); Red Blood Count 4.34 X10*6/uL (4.60-5.80); Red Cell Distribution Width 14.1 % (11.0-16.0); White Blood Count 10.7 X10*3/uL (4.8-10.8)
[2022-04-02 13:18] LABS: Estimated Average Glucose 131 mg/dL; Hemoglobin A1c % 6.2 %
[2022-04-02 13:23] LABS: Alanine Aminotransferase 11 U/L (0-40); Albumin Level 4.1 g/dL (3.5-5.0); Alkaline Phosphatase 77 U/L (39-117); Anion Gap 13 (12-20); Aspartate Amino Transferase 14 U/L (5-37); Bilirubin Total 0.3 mg/dL (0.0-1.0); Blood Urea Nitrogen 20 mg/dL (9-16); Calcium 10.1 mg/dL (8.4-10.2); Carbon Dioxide 26 mmol/L (22-29); Chloride 101 mmol/L (96-108); Estimated Glomerular Filt Rate > 60; Glucose Random 132 mg/dL (60-115); Iron 68 mcg/dL (45-160); Percent Iron Saturation 24 % (15-50); Potassium 4.7 mmol/L (3.3-5.1); Sodium 135 mmol/L (135-145); Total Iron Binding Capacity 287 mcg/dL (228-428); Total Protein 7.4 g/dL (6.5-8.0); Unsaturated Iron Binding 219 ug/dL
== END 2022-04-02 11:10 | disposition home or self-care (01) ==
LOC: HO.10HDL 11:09
PROVIDERS: PCP Internal Medicine; Visit Provider Urology
DX: R33.9 Retention of urine, unspecified (principal); I48.91 Unspecified atrial fibrillation; I73.9 Peripheral vascular disease, unspecified; N40.0 Benign prostatic hyperplasia without lower urinary tract symptoms; E08.40 Diabetes mellitus due to underlying condition with diabetic neuropathy, unspecified
CPT/HCPCS: 36415; 51798; 80053; 83036; 83540; 85025; 99202

== ENCOUNTER → 2022-05-13 09:24 | Outpatient (BNVA) | payer MEDICARE, BC, SELFPAY | PROVIDERS: PCP Internal Medicine; Visit Provider Urology | DX: R33.9 Retention of urine, unspecified (principal) | CPT/HCPCS: 51798 ==

== ENCOUNTER 2022-07-10 18:09 | Inpatient (IN) | payer MEDICARE, BC, SELFPAY ==
--- NOTE | ~2022-07-10 | XR_ITS ---
EXAMINATION: XR CHEST CLINICAL INFORMATION: Covid, shortness of breath COMPARISON: 01/13/2022 TECHNIQUE: Frontal view of the chest was obtained. FINDINGS: Lung volumes are symmetric. Redemonstrated linear atelectasis versus scarring at the left lung base. No focal consolidation is seen. No evidence of pneumothorax, pleural effusion, or pulmonary edema. The cardiomediastinal contour is unremarkable. No acute osseous findings are seen. XR/XR chest 1V IMPRESSION: No acute cardiopulmonary findings.
--- NOTE | ~2022-07-10 | MR_ITS ---
EXAMINATION: MRI OF THE BRAIN WITHOUT CONTRAST CLINICAL INFORMATION: Encephalopathy. COMPARISON: CT scan of the head 07/10/2022. TECHNIQUE: MRI of the brain was obtained using routine sequences without contrast. Multiple sequences are degraded by patient motion artifact. FINDINGS: No diffusion abnormalities are identified to suggest an acute or subacute infarct. No mass effect or midline shift is seen. There is mild commensurate prominence of the ventricles and sulci consistent with mild diffuse volume loss. Overall, accounting for artifact, brain parenchymal signal is unremarkable. No extra-axial fluid collections are seen. The brainstem and cerebellum are normal. No pathologic magnetic susceptibility artifact is identified on the gradient refocused acquisition. The craniovertebral junction, marrow signal, and midline structures are normal. The major intracranial flow-voids at the level of the [place] are preserved. The dural venous sinus flow-voids are maintained. The mastoid air cells are well-aerated. There is mild mucoperiosteal thickening in the sphenoid sinuses bilaterally. There are prominent retention cysts in the inferior maxillary sinuses bilaterally. MR/MR head/brain wo con IMPRESSION: 1. There are no acute bleeds or infarcts. No masses are demonstrated. Brain parenchymal signal is unremarkable.
--- NOTE | ~2022-07-10 | CT_ITS ---
EXAMINATION: CT HEAD WITHOUT CONTRAST CLINICAL INFORMATION: Weakness, altered mental status COMPARISON: 01/13/2022 TECHNIQUE: Contiguous axial imaging was performed from the skull base to vertex without intravenous administration of contrast. This CT examination was performed using dose optimization techniques as appropriate, variously including the following: *Automated exposure control *Adjustment of mA and/or kV according to patient size (this includes techniques or standardized protocols for targeted exams where dose is matched to indication/reason for exam; i.e. extremities or head) *Use of iterative reconstruction technique DLP: 1216 mGy-cm FINDINGS: Suboptimal assessment in some regions due to motion artifact. There is no evidence of acute intracranial hemorrhage or territorial infarction. No abnormal mass-effect or midline shift is seen. Baird to white matter differentiation is well preserved. No extra-axial fluid collections are identified. The ventricles are normal in size. There is no abnormal attenuation within the brain parenchyma. The osseous structures and soft tissues are normal. Partially opacified bilateral maxillary sinuses. The mastoid air cells are well-aerated. CT/CT head/brain wo IV con IMPRESSION: No acute intracranial pathology.
--- NOTE | ~2022-07-10 | XR_ITS ---
EXAMINATION: XR ABDOMEN KUB CLINICAL INDICATION: Screening MRI. COMPARISON: None TECHNIQUE: AP view of the abdomen. FINDINGS: No metallic foreign body in the abdomen or pelvis. Gas in large and small bowel loops without abnormal dilatation. Nonobstructive bowel. Degenerative spondylosis spine. XR/XR KUB IMPRESSION: No metallic foreign body in the abdomen. No acute abnormality.
--- NOTE | ~2022-07-10 | XR_ITS ---
EXAMINATION: XR SOFT TISSUE NECK CLINICAL INDICATION: Rule out foreign body. Bone in throat. COMPARISON: None TECHNIQUE: 2 views of the soft tissue neck were obtained. FINDINGS: The lower soft tissues are not well visualized on the lateral view. No foreign body or abnormal air collection is appreciated. The epiglottis is normal. Prevertebral soft tissues are normal. There are degenerative changes at C4-C5 and C5-C6. XR/XR soft tissue neck IMPRESSION: Limited exam. The lower cervical soft tissues are not well visualized on the lateral view. No foreign body or abnormal air collection seen.
--- NOTE | 2022-07-10 18:37 | ED.GENADULT ---
HPI - General Adult General Chief complaint: Weakness Stated complaint: bone in esophogus Time Seen by Provider: 07/10/22 18:20 Source: EMS Mode of arrival: EMS Limitations: no limitations History of Present Illness HPI narrative: 72-year-old male with a PMHx of A-fib on Eliquis, T2DM, diabetic neuropathy, and urinary retention who presents to the ED with generalized weakness X 1 day. The patient reports that he was in his usual state of health until this morning when he began feeling weak and was unable to get out of bed. He can recall the events of day without issue, he tells me that today was his brother's birthday. His only compalint is weakness, he reports usually he is able to get up and ambulate w/o assistance at home however today he was unable to get up. He denies any abdominal pain, chest pain, shortness of breath, dysuria, changes in vision, headaches, dizziness, fevers, or chills. Of note, he denies any foreign body sensation in his throat currently although this was reported initially on triage. He states that he has phlegm in his throat and a slight sore throat but no object. Related Data Home Medications Medication Instructions Recorded Confirmed lancets 28 gauge #100 ea 03/14/21 07/11/22 dextrose 15 gram/33 gram oral gel 15 g PO 02/05/22 04/02/22 packet (Dex4 Glucose) levofloxacin 750 mg/150 mL in 5 % 750 mg IV Q24H 02/05/22 07/11/22 dextrose intravenous piggyback Previous Rx's Medication Instructions Recorded metoprolol tartrate 25 mg tablet 25 mg PO BID 90 days #180 tabs 12/30/21 levofloxacin 750 mg/150 mL in 5 % 750 mg IV Q24H 40 days 01/22/22 dextrose intravenous piggyback apixaban 5 mg tablet (Eliquis) 5 mg PO BID 90 days #180 tabs 02/18/22 finasteride 5 mg tablet 5 mg PO DAILY 90 days #90 tabs 04/02/22 terazosin 10 mg capsule 10 mg PO BEDTIME 90 days #90 caps 04/02/22 Allergies Allergy/AdvReac Type Severity Reaction Status Date / Time penicillin V Allergy Intermediate rash Verified 04/02/22 11:27 Erythromycin Allergy Intermediate diarrhea Uncoded 04/02/22 11:27 Review of Systems Review of Systems: Constitutional : No Weight loss, No Fever, No Chills, + Fatigue, + Malaise, + generalized weakness ENT/Mouth : No sore throat, No Rhinorrhea Eyes: No Eye Pain, No Swelling, No Redness Cardiovascular : No Chest Pain, No SOB, No Dyspnea on Exertion, No Orthopnea, No Edema, No Palpitations Respiratory : No Cough, No Sputum, No Wheezing Gastrointestinal : No Nausea, No Vomiting, No Diarrhea, No Constipation, No abdominal Pain, No Hematochezia, No Melena Genitourinary : No Dysuria, No Urinary Frequency, No Hematuria, Musculoskeletal : No joint pain, No Myalgias, No Joint Swelling Skin : No Skin Lesions, No rash Neuro : + Weakness, No Numbness, No Dizziness, No Headache Psych : No Anxiety/Panic, No Depression All other systems reviewed and are negative Yes all other systems are reviewed and are negative [facility] Past Medical History Attestation statement: The following information was validated with the patient. Source: old records reviewed and nursing notes reviewed Medical History Amputated toe of right foot Amputation of great toe Amputation of toe of left foot Arrhythmia Chronic a-fib History of amputation of toe History of heart valve abnormality History of neuropathy Osteomyelitis Osteomyelitis Osteomyelitis of second toe of left foot Pre-diabetes PVD (peripheral vascular disease) Ulcer of left second toe Surgical History Hx of amputation Status post amputation of toe Status post ORIF of fracture of ankle Family History Family History Mother No problems noted. Social History Social History Household Members: Family Housing: House Do you presently have visiting nurse or other home services: No Alcohol intake: never Patient Tobacco Use Status: Never used Tobacco Second Hand Smoke Exposure: No Use of substances other than those prescribed or required for medical reasons: No Advance Directives: Yes Advance Directives on File: Yes Advance Directives Date on File: 08/07/20 service: No Current occupational status: retired Physical Exam ED Vital Signs: Vital Signs - 24 hr 07/10/22 18:51 07/10/22 22:03 07/10/22 22:06 Temperature 98.6 F Pulse Rate 119 H 109 H Respiratory Rate 18 18 Blood Pressure 145/67 H 135/48 L Pulse Oximetry 93 95 Oxygen Delivery Method Room Air Room Air BMI result Body Mass Index 27.5 VSS Appearance: Alert.? Oriented X3.? No acute distress.? Head: Normocephalic, atraumatic, no step-offs or deformities Eyes: Pupils equal, round and reactive to light.? ENT: Pharynx normal.? Neck: Normal inspection.? Neck supple.? CVS: Normal heart rate and rhythm.? Pulses normal.? Respiratory: No respiratory distress.? Breath sounds normal.? Abdomen: Soft and nontender.? Skin: Skin warm and dry.? Normal skin color.? Normal skin turgor.? Extremities: No lower extremity edema.? No calf ttp. Global weakness Back: No midline tenderness, no C-spine tenderness, full range of motion, no CVA tenderness bilaterally Neuro: Oriented X 3.? No motor deficit.? No sensory deficit. CN 2-12 intact. GCS 15. NIH 0. No pronator drift. No facial droop. Patient states to weak to ambulate. Course Reevaluation(s) Reevaluation #1: Patient is COVID-19 positive, likely causing his weakness. CBC and chemistry pending. Time: 21:04 Reevaluation #2: CBC appears to be around patient's baseline. Chemistry with no acute electrolyte abnormalities requiring intervention. Patient's troponin is negative, EKG nonischemic unlikely ACS. BNP slightly elevated however low suspicion for CHF, no signs of CHF on exam. Patient's total CK noted to be elevated 1026, receiving IV fluids at this time, will repeat at a later time. Urine, CPK, CT of the head and brain pending. Time: 23:19 Reevaluation #3: CT w/o acute findings. Patient noted to have a urinary tract infection. Patient will be started on antibiotics and will continue to receive IVF. CPK uptrending. Plan to admit patient to hospitalist team for rhabdo, UTI, COVID-19. Time: 00:49 Medical Decision Making MDM Narrative Medical decision making narrative: 72 y/o M with a PMHx of a-fib and DM2 presenting with 1 day of generalized weakness. Family memeber at home w/ similar sx. PE significant for global weakness. However no focal neuro deficits . GCS 15 NIH 0 Plan to obtain basic labs, UA, EKG, troponin, and CPK. Will rule out UTI, electrolyte abnormalities, ACS. No complaints of SOB, patient is anticoagulated, low suspicion for PE. Lab Data Result diagrams: 07/10/22 20:41 07/10/22 20:41 Labs: Lab Results 07/10/22 07/10/22 07/10/22 Range/Units 20:41 20:41 20:41 WBC 5.8 (4.8-10.8) X10*3/uL RBC 4.32 L (4.60-5.80) X10*6/uL Hgb 13.1 L (14.0-18.0) g/dl Hct 38.1 L (42.0-52.0) % MCV 88.2 (80.0-98.0) fL MCH 30.3 (27.0-33.0) pg MCHC 34.4 (31.0-36.0) g/dl RDW 13.6 (11.0-16.0) % Plt Count 185 D (160-400) X10*3/uL MPV 9.0 L (9.4-12.4) fL Immature Gran % (Auto) 0.5 H (0.0-0.4) % Neut % (Auto) 72.8 (45-73) % Lymph % (Auto) 14.0 L (20-40) % [place] % (Auto) 12.4 H (2-11) % Eos % (Auto) 0.0 (0-4) % Baso % (Auto) 0.3 (0-2) % Lymph # (Auto) 0.8 L (1.2-4.9) X10*3/uL [place] # (Auto) 0.7 (0.1-1.2) X10*3/uL Eos # (Auto) 0.0 (0.0-0.4) X10*3/uL Baso # (Auto) 0.0 (0.0-0.2) X10*3/uL Abs Immat Gran (auto) 0.03 (0.00-0.03) X10*3/uL Absolute Neuts (auto) 4.2 (2.0-8.3) x10*3/uL Absolute Nucleated RBC 0.000 (0.0-0.012) X10*3/uL Nucleated RBC % (auto) 0.0 (0.0-0.2) /100WBC PT 13.0 (10.0-13.1) SEC INR 1.1 (0.9-1.1) Sodium 136 (135-145) mmol/L Potassium 4.2 (3.3-5.1) mmol/L Chloride 98 (96-108) mmol/L Carbon Dioxide 25 (22-29) mmol/L Anion Gap 17 (12-20) BUN 23 H (9-16) mg/dL Creatinine 1.27 (0.5-1.4) mg/dL Estim Creat Clear Calc 63.7 Estimated GFR 56 Random Glucose 167 H (60-115) mg/dL Calcium 9.2 D (8.4-10.2) mg/dL Total Bilirubin 0.9 (0.0-1.0) mg/dL AST 28 D (5-37) U/L ALT 16 (0-40) U/L Alkaline Phosphatase 66 (39-117) U/L Total Creatine Kinase (38-174) U/L Troponin I High Sens (<3.5-35.0) ng/L B-Natriuretic Peptide (<100) pg/mL Total Protein 7.2 (6.5-8.0) g/dL Albumin 4.2 (3.5-5.0) g/dL Urine Color Urine Appearance Urine pH (5.0-9.0) Ur Specific [place] (1.005-1.025) Urine Protein (Neg-Trace) mg/dL Urine Glucose (UA) (Negative) mg/dL Urine Ketones (Negative) mg/dL Urine Blood (Negative) Urine Nitrite (Negative) Ur Leukocyte Esterase (Negative) Urine RBC (0-2) /HPF Urine WBC (0-5) /HPF Ur Squamous Epith Cells (0-2) /HPF Urine Bacteria (None Seen) Hyaline Casts (0-2) /LPF Granular Casts Urine Yeast COVID-19 (SREEDHAR) (Negative) COVID-19 Clin Com S. pyogenes GrpA ALFRED (Negative) 07/10/22 07/10/22 07/10/22 Range/Units 20:41 20:41 20:41 WBC (4.8-10.8) X10*3/uL RBC (4.60-5.80) X10*6/uL Hgb (14.0-18.0) g/dl Hct (42.0-52.0) % MCV (80.0-98.0) fL MCH (27.0-33.0) pg MCHC (31.0-36.0) g/dl RDW (11.0-16.0) % Plt Count (160-400) X10*3/uL MPV (9.4-12.4) fL Immature Gran % (Auto) (0.0-0.4) % Neut % (Auto) (45-73) % Lymph % (Auto) (20-40) % [place] % (Auto) (2-11) % Eos % (Auto) (0-4) % Baso % (Auto) (0-2) % Lymph # (Auto) (1.2-4.9) X10*3/uL [place] # (Auto) (0.1-1.2) X10*3/uL Eos # (Auto) (0.0-0.4) X10*3/uL Baso # (Auto) (0.0-0.2) X10*3/uL Abs Immat Gran (auto) (0.00-0.03) X10*3/uL Absolute Neuts (auto) (2.0-8.3) x10*3/uL Absolute Nucleated RBC (0.0-0.012) X10*3/uL Nucleated RBC % (auto) (0.0-0.2) /100WBC PT (10.0-13.1) SEC INR (0.9-1.1) Sodium (135-145) mmol/L Potassium (3.3-5.1) mmol/L Chloride (96-108) mmol/L Carbon Dioxide (22-29) mmol/L Anion Gap (12-20) BUN (9-16) mg/dL Creatinine (0.5-1.4) mg/dL Estim Creat Clear Calc Estimated GFR Random Glucose (60-115) mg/dL Calcium (8.4-10.2) mg/dL Total Bilirubin (0.0-1.0) mg/dL AST (5-37) U/L ALT (0-40) U/L Alkaline Phosphatase (39-117) U/L Total Creatine Kinase 1026 H (38-174) U/L Troponin I High Sens (<3.5-35.0) ng/L B-Natriuretic Peptide (<100) pg/mL Total Protein (6.5-8.0) g/dL Albumin (3.5-5.0) g/dL Urine Color Urine Appearance Urine pH (5.0-9.0) Ur Specific [place] (1.005-1.025) Urine Protein (Neg-Trace) mg/dL Urine Glucose (UA) (Negative) mg/dL Urine Ketones (Negative) mg/dL Urine Blood (Negative) Urine Nitrite (Negative) Ur Leukocyte Esterase (Negative) Urine RBC (0-2) /HPF Urine WBC (0-5) /HPF Ur Squamous Epith Cells (0-2) /HPF Urine Bacteria (None Seen) Hyaline Casts (0-2) /LPF Granular Casts Urine Yeast COVID-19 (SREEDHAR) Positive A (Negative) COVID-19 Clin Com See Note S. pyogenes GrpA ALFRED Negative (Negative) 07/10/22 07/11/22 07/11/22 Range/Units 20:41 00:17 00:17 WBC (4.8-10.8) X10*3/uL RBC (4.60-5.80) X10*6/uL Hgb (14.0-18.0) g/dl Hct (42.0-52.0) % MCV (80.0-98.0) fL MCH (27.0-33.0) pg MCHC (31.0-36.0) g/dl RDW (11.0-16.0) % Plt Count (160-400) X10*3/uL MPV (9.4-12.4) fL Immature Gran % (Auto) (0.0-0.4) % Neut % (Auto) (45-73) % Lymph % (Auto) (20-40) % [place] % (Auto) (2-11) % Eos % (Auto) (0-4) % Baso % (Auto) (0-2) % Lymph # (Auto) (1.2-4.9) X10*3/uL [place] # (Auto) (0.1-1.2) X10*3/uL Eos # (Auto) (0.0-0.4) X10*3/uL Baso # (Auto) (0.0-0.2) X10*3/uL Abs Immat Gran (auto) (0.00-0.03) X10*3/uL Absolute Neuts (auto) (2.0-8.3) x10*3/uL Absolute Nucleated RBC (0.0-0.012) X10*3/uL Nucleated RBC % (auto) (0.0-0.2) /100WBC PT (10.0-13.1) SEC INR (0.9-1.1) Sodium (135-145) mmol/L Potassium (3.3-5.1) mmol/L Chloride (96-108) mmol/L Carbon Dioxide (22-29) mmol/L Anion Gap (12-20) BUN (9-16) mg/dL Creatinine (0.5-1.4) mg/dL Estim Creat Clear Calc Estimated GFR Random Glucose (60-115) mg/dL Calcium (8.4-10.2) mg/dL Total Bilirubin (0.0-1.0) mg/dL AST (5-37) U/L ALT (0-40) U/L Alkaline Phosphatase (39-117) U/L Total Creatine Kinase 2385 H D (38-174) U/L Troponin I High Sens 10.6 (<3.5-35.0) ng/L B-Natriuretic Peptide 135 H (<100) pg/mL Total Protein (6.5-8.0) g/dL Albumin (3.5-5.0) g/dL Urine Color Yellow Urine Appearance Turbid Urine pH 6.5 (5.0-9.0) Ur Specific [place] 1.020 (1.005-1.025) Urine Protein 100 (2+) H (Neg-Trace) mg/dL Urine Glucose (UA) Negative (Negative) mg/dL Urine Ketones Negative (Negative) mg/dL Urine Blood Small (1+) H (Negative) Urine Nitrite Negative (Negative) Ur Leukocyte Esterase Large (3+) H (Negative) Urine RBC 3-5 H (0-2) /HPF Urine WBC >50 H (0-5) /HPF Ur Squamous Epith Cells 0-2 (0-2) /HPF Urine Bacteria Trace (None Seen) Hyaline Casts 6-10 (0-2) /LPF Granular Casts Present Urine Yeast Present COVID-19 (SREEDHAR) (Negative) COVID-19 Clin Com S. pyogenes GrpA ALFRED (Negative) ECG Data Attestation: I personally reviewed and interpreted this ECG as follows: Prior ECG tracings: available for review Interpretation: Ventricular rate of 113, IN normal, QRS normal, QT/QTC normal. EKG sinus tachycardia with frequent PVCs, no ST elevations or inversions concerning for ischemia. When compared to EKG from December 2021 there are now PVCs present. Critical Care Time Critical Care Time Critical Care Time: No Discharge Plan Discharge Clinical Impression: Weakness, COVID, Rhabdomyolysis, Acute UTI Patient Disposition: Admitted As Inpatient
--- NOTE | 2022-07-10 18:47 | ECG_ITS ---
Test Reason : WEAKNESS Blood Pressure : / mmHG Vent. Rate : 113 BPM Atrial Rate : 113 BPM P-R Int : 144 ms QRS Dur : 086 ms QT Int : 328 ms P-R-T Axes : 022 034 046 degrees QTc Int : 449 ms Sinus tachycardia with frequent Premature ventricular complexes and Fusion complexes Possible Left atrial enlargement Nonspecific ST and T wave abnormality Abnormal ECG When compared with ECG of 13-JAN-2022 19:15, Fusion complexes are now Present Premature ventricular complexes are now Present Referred By: Shraddha John Electronically Signed By:TRINIDAD OBRIEN
[2022-07-10 18:51] VITALS: BP 145/67; PULSE 119; RESP 18; O2SAT 93; BMI 27.5
[2022-07-10 20:48] LABS: MANUAL DIFF FLAG NO
[2022-07-10 20:50] LABS: Basophils Percent Auto 0.3 % (0-2); Hematocrit 38.1 % (42.0-52.0); Hemoglobin 13.1 g/dl (14.0-18.0); Imm Gran Abs Auto 0.03 X10*3/uL (0.00-0.03); Imm Gran Pct Auto 0.5 % (0.0-0.4); Lymphocytes Absolute Auto 0.8 X10*3/uL (1.2-4.9); Mean Corpuscular HGB Conc 34.4 g/dl (31.0-36.0); Mean Corpuscular Hemoglobin 30.3 pg (27.0-33.0); Mean Corpuscular Volume 88.2 fL (80.0-98.0); Monocytes Absolute Auto 0.7 X10*3/uL (0.1-1.2); Monocytes Percent Auto 12.4 % (2-11); Neutrophils Absolute Auto 4.2 x10*3/uL (2.0-8.3); Neutrophils Percent Auto 72.8 % (45-73); Platelet Count 185 X10*3/uL (160-400); Red Blood Count 4.32 X10*6/uL (4.60-5.80); Red Cell Distribution Width 13.6 % (11.0-16.0); White Blood Count 5.8 X10*3/uL (4.8-10.8)
[2022-07-10 20:56] LABS: INTERNATIONAL NORM RATIO 1.1 (0.9-1.1)
[2022-07-10 20:59] LABS: Strep A Nucleic Acid Negative (Negative)
[2022-07-10 21:01] LABS: COVID-19 Test Positive (Negative); IDNOW Serial# 16C4AD1C
[2022-07-10 21:19] LABS: Alanine Aminotransferase 16 U/L (0-40); Albumin Level 4.2 g/dL (3.5-5.0); Alkaline Phosphatase 66 U/L (39-117); Anion Gap 17 (12-20); Aspartate Amino Transferase 28 U/L (5-37); Bilirubin Total 0.9 mg/dL (0.0-1.0); Blood Urea Nitrogen 23 mg/dL (9-16); Calcium 9.2 mg/dL (8.4-10.2); Carbon Dioxide 25 mmol/L (22-29); Chloride 98 mmol/L (96-108); Creatinine Clr Calc Pharmacy 63.7; Estimated Glomerular Filt Rate 56; Glucose Random 167 mg/dL (60-115); Potassium 4.2 mmol/L (3.3-5.1); Sodium 136 mmol/L (135-145); Total Protein 7.2 g/dL (6.5-8.0)
[2022-07-10 21:22] LABS: Troponin-I High Sensitivity 10.6 ng/L (<3.5-35.0)
[2022-07-10 21:45] LABS: B Type Natriuretic Peptide 135 pg/mL (<100)
[2022-07-10 22:03] VITALS: BP 135/48; PULSE 109; RESP 18; O2SAT 95
[2022-07-10 22:06] VITALS: TEMP 37
[2022-07-10] MEDS: 0.9 % Sodium Chloride 1,000 ML 999 ML IV ×2 (22:12→23:24)
[2022-07-11 00:24] LABS: Appearance Urine Turbid; Color Urine Yellow; Glucose Urine UA Negative (Negative); Leukocyte Esterase Urine Large (3+) (Negative); Nitrite Urine Negative (Negative); PH 6.5 (5.0-9.0); Urine Blood Small (1+) (Negative); Urine Ketones Negative (Negative); Urine Protein 100 (2+) mg/dL (Neg-Trace)
[2022-07-11 00:37] LABS: Bacteria Urine Trace (None Seen); Granular Casts Urine Present; Squamous Epithelial Cell Urine 0-2 /HPF (0-2); UACC Culture Trigger YES; WBC Urine >50 /HPF (0-5)
[2022-07-11] MEDS: levoFLOXacin/D5W 750 MG/150 ML PIGGYBACK 100 MG IV (01:23)
[2022-07-11] MEDS: 0.9 % Sodium Chloride 1,000 ML 999 ML IV ×2 (01:23)
[2022-07-11 03:13] VITALS: BP 136/57; PULSE 90; RESP 16; TEMP 36.6; O2SAT 96
--- NOTE | 2022-07-11 03:39 | PC.NURSE ---
I assumed nursing care of Shashank at 2300. Since that time he has been resting in bed, sleeping but wakes to verbal stimuli. He makes avoidant eye contact but is otherwise calm and cooperative and able to verbalize his needs. he required some convincing that he has a positive covid diagnosis - despite me showing him the result in epacubetech he still required a lot of explanation to understand that he tested positive for this. Respirations are spontaneous and non-labored. Room air sats 95% or better. RR WNL. Speech clear and appropriate. No chest pain. NO nausea or vomiting. Pt is taking PO fluids without difficulty. He has been voiding into commode both in the bed and while standing at bedside with one stand by assist. Rodney has had L great toe amputation and has some difficulty with steadiness - states he uses a cane at home to assist with ambulation successfully and independently. When sanding with him at the bedside while he stands using urinal he is very slightly unsteady (requires 1 stand by assist). Pt had small episode of of brown stool in bed. Pt states it was diarrhea' but it was not liguid-y. And, again, it was a very small amount.His skin was cleansed and linens changed. Since I arrived at 2300 I have witnessed the completion of 1L of NS and have subsequently infused 3 additional 1L NS boluses, per PA orders for a total of 4L NS boluses here in the ED. In addition UA was obtained and IV Leavquin given for UTI. pt aware that he is to be admitted and verbalizes an understanding of this.
--- NOTE | 2022-07-11 06:13 | PC.NURSE ---
Addendum entered by Shahid Lyon 07/11/22 10:28: Patient also incontinent of watery brown stool. aware. Addendum entered by Shahid Lyon 07/11/22 10:11: Patient seems to be confused and is incontinent of urine and stool. Patient found at edge of bed with urine and clothes on floor. Camera being placed in room. aware Original Note: Shashank was incontinent of a large amount of soft, brown stool. It appears that he attempted to get OOB when he had a bowel movement as stool is noted to be all over the edge of the bed and the floor at the foot of his bed. Bed, floor and the patients' skin were cleansed and dry linens were provided. Mendy MILLER aware and at the bedside.
--- NOTE | 2022-07-11 06:44 | PM.IMHP ---
History of Present Illness Date of Service: 07/11/22 Chief Complaint: weakness This is a 72-year-old male with past medical history of diabetes, chronic AFib, BPH, osteomyelitis status post amputation of left big toe, peripheral vascular disease, presents to the hospital with complaints of weakness. Patient reports that he started feeling weak on the day of presentation, he has also had a cough, with some shortness of breath, for the past 1 week, denies any chest pain, no sputum production. He also has rhinorrhea. He lives with his mother who just been admitted to the hospital today with COVID infection. He is not vaccinated against COVID. No recent trauma or fall, no recent significant immobility. Denies any abdominal pain, nausea or vomiting, has diarrhea this morning with 1 episode in the hospital, reports urinary frequency and urgency with no dysuria, but contributes it to his BPH medications. Patient denies any lower extremity edema. No numbness weakness or tingling. On arrival to the ED patient hemodynamically stable found to have a heart rate of 119 satting 93% on room air Labs are significant for WBC count of 5.8, labs otherwise unremarkable, has a BUN of 23 with a creatinine of 1.27 with a baseline of 0.93, CPK of 2385, BNP of 135, UA that is positive for leukocyte Estrace and WBC with minimal epithelia cells, COVID-19 positive Chest x-ray shows no acute cardiopulmonary disease Head CT negative Patient will be admitted for further management Review of Systems Review of Systems: Yes all other systems are reviewed and are negative [facility] Medical History Amputated toe of right foot Amputation of great toe Amputation of toe of left foot Arrhythmia Chronic a-fib History of amputation of toe History of heart valve abnormality History of neuropathy Osteomyelitis Osteomyelitis Osteomyelitis of second toe of left foot Pre-diabetes PVD (peripheral vascular disease) Ulcer of left second toe Family History (Updated 07/11/22 @ 06:48 by Winnie Brooke MD) Mother CAD (coronary artery disease) Surgical History Hx of amputation Status post amputation of toe Status post ORIF of fracture of ankle Social History Household Members: Family Housing: House Do you presently have visiting nurse or other home services: No Alcohol intake: never Patient Tobacco Use Status: Never used Tobacco Second Hand Smoke Exposure: No Use of substances other than those prescribed or required for medical reasons: No Advance Directives: Yes Advance Directives on File: Yes Advance Directives Date on File: 08/07/20 service: No Current occupational status: retired Meds Allergies Allergy/AdvReac Type Severity Reaction Status Date / Time penicillin V Allergy Intermediate rash Verified 04/02/22 11:27 Erythromycin Allergy Intermediate diarrhea Uncoded 04/02/22 11:27 Active Medications: Current Medications Acetaminophen (Acetaminophen 325 Mg Tablet) 650 mg PO Q6H PRN PRN Reason: Pain, Mild (Pain Scale 1-3) Docusate Sodium (Docusate Sodium 100 Mg Capsule) 100 mg PO DAILY PRN PRN Reason: Constipation Lactated Ringer's (Lr) 1,000 mls @ 100 mls/hr IVCONT .Q10H [facility] Ceftriaxone Sodium 1 gm/ (Sodium Chloride) 50 mls @ 100 mls/hr IV Q24H [facility] Ondansetron HCl (Ondansetron Hcl 4 Mg/2 Ml Vial) 4 mg IVPUSH Q8H PRN PRN Reason: Nausea and Vomiting Pharmacy Consult (Consult Rx Perform Med Rec) 1 each MISCELLANE ONCE PRN PRN Reason: Consult order Sodium Chloride (0.9 % Sodium Chloride Flush 3 Ml Syringe) 3 ml IVFLUSH QSHIFT [facility] Home Medications Medication Instructions Recorded Confirmed Last Taken Type lancets 28 gauge #100 ea 03/14/21 07/11/22 Unknown History levofloxacin 750 mg/150 mL in 5 % 750 mg IV Q24H 02/05/22 07/11/22 Unknown History dextrose intravenous piggyback Physical Exam Vital Signs and Narrative: Vital Signs: Last Vital Signs Temp 97.8 F 07/11/22 03:13 Pulse 90 07/11/22 03:13 Resp 16 07/11/22 03:13 BP 136/57 L 07/11/22 03:13 Pulse Ox 96 07/11/22 03:13 O2 Del Method 07/11/22 03:13 BMI result Body Mass Index 27.5 Const: Other: Poor hygiene General: cooperative and no acute distress Orientation/consciousness: patient oriented x3 Eyes: General: appearance normal, both eyes and all related structures Resp: Effort & Inspection: normal respiratory effort Auscultation: clear to auscultation bilaterally Cardio: Rate: regular rate Rhythm: regular rhythm GI: Palpation (GI): Soft to palpation Auscultation: normal bowel sounds Skin: General skin exam: no rashes or lesions noted Neuro: General: patient oriented x3 Cognition (Neuro): normal cognition Extrem: General: Yes normal to inspection and Yes no pedal edema Results Labs CBC and Chem 7: 07/10/22 20:41 07/10/22 20:41 Labs: Laboratory Results - last 24 hr 07/10/22 07/10/22 07/10/22 20:41 20:41 20:41 MCV 88.2 MCH 30.3 MCHC 34.4 RDW 13.6 Plt Count 185 D MPV 9.0 L Immature Gran % (Auto) 0.5 H Neut % (Auto) 72.8 Lymph % (Auto) 14.0 L [place] % (Auto) 12.4 H Eos % (Auto) 0.0 Baso % (Auto) 0.3 Lymph # (Auto) 0.8 L [place] # (Auto) 0.7 Eos # (Auto) 0.0 Baso # (Auto) 0.0 Abs Immat Gran (auto) 0.03 Absolute Neuts (auto) 4.2 Absolute Nucleated RBC 0.000 Nucleated RBC % (auto) 0.0 PT 13.0 INR 1.1 Anion Gap 17 Estim Creat Clear Calc 63.7 Estimated GFR 56 Random Glucose 167 H Calcium 9.2 D Total Bilirubin 0.9 AST 28 D ALT 16 Alkaline Phosphatase 66 Total Creatine Kinase B-Natriuretic Peptide Total Protein 7.2 Albumin 4.2 Urine Color Urine Appearance Urine pH Ur Specific [place] Urine Protein Urine Glucose (UA) Urine Ketones Urine Blood Urine Nitrite Ur Leukocyte Esterase Urine RBC Urine WBC Ur Squamous Epith Cells Urine Bacteria Hyaline Casts Granular Casts Urine Yeast COVID-19 (SREEDHAR) COVID-19 Clin Com S. pyogenes GrpA ALFRED 07/10/22 07/10/22 07/10/22 20:41 20:41 20:41 MCV MCH MCHC RDW Plt Count MPV Immature Gran % (Auto) Neut % (Auto) Lymph % (Auto) [place] % (Auto) Eos % (Auto) Baso % (Auto) Lymph # (Auto) [place] # (Auto) Eos # (Auto) Baso # (Auto) Abs Immat Gran (auto) Absolute Neuts (auto) Absolute Nucleated RBC Nucleated RBC % (auto) PT INR Anion Gap Estim Creat Clear Calc Estimated GFR Random Glucose Calcium Total Bilirubin AST ALT Alkaline Phosphatase Total Creatine Kinase 1026 H B-Natriuretic Peptide Total Protein Albumin Urine Color Urine Appearance Urine pH Ur Specific [place] Urine Protein Urine Glucose (UA) Urine Ketones Urine Blood Urine Nitrite Ur Leukocyte Esterase Urine RBC Urine WBC Ur Squamous Epith Cells Urine Bacteria Hyaline Casts Granular Casts Urine Yeast COVID-19 (SREEDHAR) Positive A COVID-19 Clin Com See Note S. pyogenes GrpA ALFRED Negative 07/10/22 07/11/22 07/11/22 20:41 00:17 00:17 MCV MCH MCHC RDW Plt Count MPV Immature Gran % (Auto) Neut % (Auto) Lymph % (Auto) [place] % (Auto) Eos % (Auto) Baso % (Auto) Lymph # (Auto) [place] # (Auto) Eos # (Auto) Baso # (Auto) Abs Immat Gran (auto) Absolute Neuts (auto) Absolute Nucleated RBC Nucleated RBC % (auto) PT INR Anion Gap Estim Creat Clear Calc Estimated GFR Random Glucose Calcium Total Bilirubin AST ALT Alkaline Phosphatase Total Creatine Kinase 2385 H D B-Natriuretic Peptide 135 H Total Protein Albumin Urine Color Yellow Urine Appearance Turbid Urine pH 6.5 Ur Specific [place] 1.020 Urine Protein 100 (2+) H Urine Glucose (UA) Negative Urine Ketones Negative Urine Blood Small (1+) H Urine Nitrite Negative Ur Leukocyte Esterase Large (3+) H Urine RBC 3-5 H Urine WBC >50 H Ur Squamous Epith Cells 0-2 Urine Bacteria Trace Hyaline Casts 6-10 Granular Casts Present Urine Yeast Present COVID-19 (SREEDHAR) COVID-19 Clin Com S. pyogenes GrpA ALFRED Imaging Radiologist's Impressions: Impressions Soft Tissue Neck X-Ray 07/10/22 18:47 IMPRESSION: Limited exam. The lower cervical soft tissues are not well visualized on the lateral view. No foreign body or abnormal air collection seen. Chest X-Ray 07/10/22 23:52 IMPRESSION: No acute cardiopulmonary findings. Head CT 07/11/22 00:00 IMPRESSION: No acute intracranial pathology. Assessment and Plan (1) COVID: Status: Acute (2) Rhabdomyolysis: Qualifiers: Rhabdomyolysis type: non-traumatic Qualified Code(s): M62.82 - Rhabdomyolysis Status: Acute (3) Acute UTI: Status: Acute (4) BHUMI (acute kidney injury): Status: Acute (5) Weakness: Status: Acute Plan 72-year-old male with past medical history of diabetes, AFib presents to the hospital with complaints of weakness, cough, found to have COVID-19 infection # acute COVID-19 infection - no hypoxia, no evidence of pneumonia on chest x-ray - continue to monitor oxygen - supportive measures # rhabdomyolysis - no trauma, no recent immobility or fall - will treat with IV fluid - monitor BMP, follow CPK # acute UTI - symptomatic - will treat with IV ceftriaxone - follow cultures # BHUMI - has elevated creatinine and BUN from baseline - will treat with IV fluid - follow BMP # weakness - likely secondary to above - may need PT OT prior to this she # AFib - chronic - continue apixaban and metoprolol for rate control DVT prophylaxis: Apixaban Given rhabdomyolysis as well as BHUMI and acute UTI patient will require minimum 2 night hospital stay for IV fluids, IV antibiotics Quality Stroke Does the patient have a stroke diagnosis?: No VTE Prior VTE?: No VTE Risk Level:: Medical - moderate - high VTE Device Contraindication: Treatment Not Indicated VTE Drug Contraindication: N/A - Med Ordered
[2022-07-11] MEDS: cefTRIAXone sodium 1 GM in 0.9 % Sodium Chloride 50 ML IV (06:59)
[2022-07-11 07:44] VITALS: BP 123/58; PULSE 98; RESP 19; TEMP 36.8; O2SAT 96
[2022-07-11] MEDS: Lactated Ringers 1,000 ML 100 ML IVCONT (07:47)
[2022-07-11] MEDS: Finasteride 5 MG TABLET PO (08:11)
[2022-07-11] MEDS: Metoprolol Tartrate 25 MG TABLET PO ×2 (08:11→22:09)
[2022-07-11] MEDS: Apixaban 5 MG TABLET PO ×2 (08:11→22:10)
[2022-07-11 13:02] LABS: Anion Gap 18 (12-20); Blood Urea Nitrogen 19 mg/dL (9-16); Carbon Dioxide 21 mmol/L (22-29); Chloride 102 mmol/L (96-108); Creatinine Clr Calc Pharmacy 74.2; Estimated Glomerular Filt Rate > 60; Glucose Random 166 mg/dL (60-115); Potassium 3.8 mmol/L (3.3-5.1); Sodium 137 mmol/L (135-145)
[2022-07-11 13:05] VITALS: BP 132/64; PULSE 106; RESP 16; O2SAT 96
[2022-07-11 13:11] LABS: Calcium 7.9 mg/dL (8.4-10.2)
--- NOTE | 2022-07-11 15:40 | MHC.CM.PN ---
[facility] ADDRESSED WITH PATIENT'S BROTHER, LANDON ARTHUR AT [phone], PATIENT HAS COVID. ORIGINAL MAILED VIA CERTIFIED MAIL, COPY TO CHART. IMM ADDENDUM COMPLETED. PATIENT LIVES WITH HIS FAMILY, BROTHER AND MOTHER. IS INDEPENDENT AT HOME AND COMMUNITY USES A [facility] NO HOME SERVICES COVID CLAREX'D X2 PCP: ROCHELLE MOSER NO HCP BROTHER WILL TRANSPORT D/C PLAN: HOME SELF-CARE
--- NOTE | 2022-07-11 16:46 | P.PNIM_ITS ---
Subjective Subjective Date of Service: 07/11/22 Interval History: Encephalopathy possible, generalized weakness. UTI. Review of Systems Patient seems somewhat confuse, otherwise following simple commands, able to answer -denies any abdominal pain or chest pain or shortness of breath or fever or chills or cough or phlegm. Physical Exam Vital Signs: Vital Signs: Last Vital Signs Temp 98.2 F 07/11/22 07:44 Pulse 106 H 07/11/22 13:05 Resp 16 07/11/22 13:05 BP 132/64 07/11/22 13:05 Pulse Ox 96 07/11/22 13:05 O2 Del Method 07/11/22 13:05 BMI result Body Mass Index 27.5 Physical exam: Appearance: Alert.? Oriented X2, near baseline as per family cvs: rrr, [id number] res: clear to auscultation ,no rhonchii or wheezing abd: no rebound or guarding ,nt, bs present. ext pulses present , no cyanosis neuro: nonfocal. Objective Data Active Medications Acetaminophen (Acetaminophen 325 Mg Tablet) 650 mg PO Q6H PRN PRN Reason: Pain, Mild (Pain Scale 1-3) Apixaban (Apixaban 5 Mg Tablet) 5 mg PO BID [facility] Last Admin: 07/11/22 08:11 Dose: 5 mg Documented By: VIC Docusate Sodium (Docusate Sodium 100 Mg Capsule) 100 mg PO DAILY PRN PRN Reason: Constipation Doxazosin Mesylate (Doxazosin Mesylate 2 Mg Tablet) 8 mg PO BEDTIME [facility] Finasteride (Finasteride 5 Mg Tablet) 5 mg PO DAILY [facility] Last Admin: 07/11/22 08:11 Dose: 5 mg Documented By: VIC Lactated Ringer's (Lr) 1,000 mls @ 100 mls/hr IVCONT .Q10H [facility] Last Admin: 07/11/22 07:47 Dose: 100 mls/hr Documented By: VIC Ceftriaxone Sodium 1 gm/ (Sodium Chloride) 50 mls @ 100 mls/hr IV Q24H [facility] Last Infusion: 07/11/22 07:52 Dose: 0 mls/hr Documented By: VIC Metoprolol Tartrate (Metoprolol Tartrate 25 Mg Tablet) 25 mg PO BID [facility]; Protocol Last Admin: 07/11/22 08:11 Dose: 25 mg Documented By: VIC Ondansetron HCl (Ondansetron Hcl 4 Mg/2 Ml Vial) 4 mg IVPUSH Q8H PRN PRN Reason: Nausea and Vomiting Pharmacy Consult (Consult Rx Perform Med Rec) 1 each MISCELLANE ONCE PRN PRN Reason: Consult order Sodium Chloride (0.9 % Sodium Chloride Flush 3 Ml Syringe) 3 ml IVFLUSH QSHIFT [facility] Last Admin: 07/11/22 15:35 Dose: Not Given Documented By: VIC Non-Admin Reason: IV Running Labs CBC & Chem 7: 07/10/22 20:41 07/11/22 12:18 Labs: Laboratory Results - last 24 hr 07/10/22 07/10/22 07/10/22 20:41 20:41 20:41 MCV 88.2 MCH 30.3 MCHC 34.4 RDW 13.6 Plt Count 185 D MPV 9.0 L Immature Gran % (Auto) 0.5 H Neut % (Auto) 72.8 Lymph % (Auto) 14.0 L [place] % (Auto) 12.4 H Eos % (Auto) 0.0 Baso % (Auto) 0.3 Lymph # (Auto) 0.8 L [place] # (Auto) 0.7 Eos # (Auto) 0.0 Baso # (Auto) 0.0 Abs Immat Gran (auto) 0.03 Absolute Neuts (auto) 4.2 Absolute Nucleated RBC 0.000 Nucleated RBC % (auto) 0.0 PT 13.0 INR 1.1 Anion Gap 17 Estim Creat Clear Calc 63.7 Estimated GFR 56 Random Glucose 167 H Calcium 9.2 D Total Bilirubin 0.9 AST 28 D ALT 16 Alkaline Phosphatase 66 Total Creatine Kinase B-Natriuretic Peptide Total Protein 7.2 Albumin 4.2 Urine Color Urine Appearance Urine pH Ur Specific [place] Urine Protein Urine Glucose (UA) Urine Ketones Urine Blood Urine Nitrite Ur Leukocyte Esterase Urine RBC Urine WBC Ur Squamous Epith Cells Urine Bacteria Hyaline Casts Granular Casts Urine Yeast COVID-19 (SREEDHAR) COVID-19 Clin Com S. pyogenes GrpA ALFRED 07/10/22 07/10/22 07/10/22 20:41 20:41 20:41 MCV MCH MCHC RDW Plt Count MPV Immature Gran % (Auto) Neut % (Auto) Lymph % (Auto) [place] % (Auto) Eos % (Auto) Baso % (Auto) Lymph # (Auto) [place] # (Auto) Eos # (Auto) Baso # (Auto) Abs Immat Gran (auto) Absolute Neuts (auto) Absolute Nucleated RBC Nucleated RBC % (auto) PT INR Anion Gap Estim Creat Clear Calc Estimated GFR Random Glucose Calcium Total Bilirubin AST ALT Alkaline Phosphatase Total Creatine Kinase 1026 H B-Natriuretic Peptide Total Protein Albumin Urine Color Urine Appearance Urine pH Ur Specific [place] Urine Protein Urine Glucose (UA) Urine Ketones Urine Blood Urine Nitrite Ur Leukocyte Esterase Urine RBC Urine WBC Ur Squamous Epith Cells Urine Bacteria Hyaline Casts Granular Casts Urine Yeast COVID-19 (SREEDHAR) Positive A COVID-19 Clin Com See Note S. pyogenes GrpA ALFRED Negative 07/10/22 07/11/22 07/11/22 20:41 00:17 00:17 MCV MCH MCHC RDW Plt Count MPV Immature Gran % (Auto) Neut % (Auto) Lymph % (Auto) [place] % (Auto) Eos % (Auto) Baso % (Auto) Lymph # (Auto) [place] # (Auto) Eos # (Auto) Baso # (Auto) Abs Immat Gran (auto) Absolute Neuts (auto) Absolute Nucleated RBC Nucleated RBC % (auto) PT INR Anion Gap Estim Creat Clear Calc Estimated GFR Random Glucose Calcium Total Bilirubin AST ALT Alkaline Phosphatase Total Creatine Kinase 2385 H D B-Natriuretic Peptide 135 H Total Protein Albumin Urine Color Yellow Urine Appearance Turbid Urine pH 6.5 Ur Specific [place] 1.020 Urine Protein 100 (2+) H Urine Glucose (UA) Negative Urine Ketones Negative Urine Blood Small (1+) H Urine Nitrite Negative Ur Leukocyte Esterase Large (3+) H Urine RBC 3-5 H Urine WBC >50 H Ur Squamous Epith Cells 0-2 Urine Bacteria Trace Hyaline Casts 6-10 Granular Casts Present Urine Yeast Present COVID-19 (SREEDHAR) COVID-19 Clin Com S. pyogenes GrpA ALFRED 07/11/22 12:18 MCV MCH MCHC RDW Plt Count MPV Immature Gran % (Auto) Neut % (Auto) Lymph % (Auto) [place] % (Auto) Eos % (Auto) Baso % (Auto) Lymph # (Auto) [place] # (Auto) Eos # (Auto) Baso # (Auto) Abs Immat Gran (auto) Absolute Neuts (auto) Absolute Nucleated RBC Nucleated RBC % (auto) PT INR Anion Gap 18 Estim Creat Clear Calc 74.2 Estimated GFR > 60 Random Glucose 166 H Calcium 7.9 L D Total Bilirubin AST ALT Alkaline Phosphatase Total Creatine Kinase 2427 H B-Natriuretic Peptide Total Protein Albumin Urine Color Urine Appearance Urine pH Ur Specific [place] Urine Protein Urine Glucose (UA) Urine Ketones Urine Blood Urine Nitrite Ur Leukocyte Esterase Urine RBC Urine WBC Ur Squamous Epith Cells Urine Bacteria Hyaline Casts Granular Casts Urine Yeast COVID-19 (SREEDHAR) COVID-19 Clin Com S. pyogenes GrpA ALFRED Assessment and Plan (1) BHUMI (acute kidney injury): Status: Acute (2) Acute UTI: Status: Acute (3) Rhabdomyolysis: Status: Acute Plan 72-year-old male with past medical history of diabetes, AFib presents to the hospital with complaints of weakness, cough, found to have COVID-19 infection # acute COVID-19 infection - no hypoxia, no evidence of pneumonia on chest x-ray -? continue to monitor oxygen - supportive measures # rhabdomyolysis - no trauma, no recent immobility or fall - will treat with IV fluid - monitor BMP, CPK trending up # acute UTI - symptomatic - will treat with IV ceftriaxone Urine culture and blood culture pending # BHUMI - has elevated creatinine and BUN from baseline - impproving with IV fluid - follow BMP # weakness - likely secondary to above - may need PT OT prior to this she # AFib - chronic - continue apixaban and metoprolol for rate control toxic metabolic encephalopathy-multifactorial( as above bhumi,covid,uti,rhabo) cotninue above supportive care ct head neg added mri Pt eval DVT prophylaxis:? Apixaban need for inaptient: Rhabdomyolysis requiring IV fluid, UTI on IV antibiotics Quality Stroke Does the patient have a stroke diagnosis?: No VTE Prior VTE?: No VTE Risk Level:: Medical - moderate - high VTE Device Contraindication: Treatment Not Indicated VTE Drug Contraindication: N/A - Med Ordered
[2022-07-11 17:25] VITALS: BP 162/82; PULSE 84; TEMP 36.8; O2SAT 96
--- NOTE | 2022-07-11 17:50 | PC.NURSE ---
Addendum entered by Shahid Lyon 07/11/22 18:00: Updated MRI about situation who stated they would reach out to Dr. Griggs with a plan. Original Note: Patient a poor historian. Attempted to do MRI screening form. Attempted to call brother Kalyan with no answer. This RN left a message for brother to call back.
--- NOTE | 2022-07-11 20:02 | PC.NURSE ---
PT off unit with transport to MRI. Per RN to RN report received, pt to not be pre medicated for the MRI per MD Griggs. cable mechanic aware, transported provided with brief overview/history on pt's presentation.
[2022-07-11 21:33] VITALS: BP 133/48; PULSE 79; RESP 18; O2SAT 94
[2022-07-11] MEDS: Doxazosin Mesylate 2 MG TABLET 8 MG PO (22:10)
[2022-07-12] VITALS (7 sets, daily range): BP systolic 99–124; BP diastolic 37–50; PULSE 76–96; RESP 16–20; TEMP 36.3–37.2; O2SAT 96–98
[2022-07-12] MEDS: Lactated Ringers 1,000 ML 100 ML IVCONT ×3 (02:02→23:57)
[2022-07-12] MEDS: cefTRIAXone sodium 1 GM in 0.9 % Sodium Chloride 50 ML IV (06:13)
--- NOTE | 2022-07-12 06:13 | PC.NURSE ---
LR infusion held/paused while ceftriaxone infusing per MAR.
[2022-07-12 07:10] LABS: MANUAL DIFF FLAG NO
[2022-07-12 07:15] LABS: Basophils Percent Auto 0.1 % (0-2); Hematocrit 36.1 % (42.0-52.0); Imm Gran Abs Auto 0.04 X10*3/uL (0.00-0.03); Imm Gran Pct Auto 0.4 % (0.0-0.4); Lymphocytes Percent Auto 10.3 % (20-40); Mean Corpuscular HGB Conc 33.2 g/dl (31.0-36.0); Mean Corpuscular Volume 90.3 fL (80.0-98.0); Mean Platelet Volume 9.6 fL (9.4-12.4); Monocytes Absolute Auto 0.4 X10*3/uL (0.1-1.2); Monocytes Percent Auto 4.3 % (2-11); Neutrophils Absolute Auto 8.1 x10*3/uL (2.0-8.3); Neutrophils Percent Auto 84.9 % (45-73); Platelet Count 172 X10*3/uL (160-400); Red Cell Distribution Width 13.9 % (11.0-16.0); White Blood Count 9.6 X10*3/uL (4.8-10.8)
[2022-07-12 07:56] LABS: Anion Gap 17 (12-20); Blood Urea Nitrogen 27 mg/dL (9-16); Calcium 7.9 mg/dL (8.4-10.2); Carbon Dioxide 19 mmol/L (22-29); Chloride 105 mmol/L (96-108); Estimated Glomerular Filt Rate > 60; Glucose Random 137 mg/dL (60-115); Potassium 4.2 mmol/L (3.3-5.1); Sodium 137 mmol/L (135-145)
[2022-07-12 09:00] LABS: Thyroid Stimulating Hormone 0.85 uIU/mL (0.32-4.0)
[2022-07-12] MEDS: Metoprolol Tartrate 25 MG TABLET PO ×2 (09:16→19:48)
[2022-07-12] MEDS: Finasteride 5 MG TABLET PO (09:16)
[2022-07-12] MEDS: Apixaban 5 MG TABLET PO ×2 (09:17→19:48)
--- NOTE | 2022-07-12 13:45 | PC.NURSE ---
PT VS are stable, one of pt IV was removed d/t the iv was dislodged.
--- NOTE | 2022-07-12 14:36 | HO.PM.IMPN ---
Subjective Subjective Date of Service: 07/12/22 Interval History: Encephalopathy possible, generalized weakness.? UTI. Review of Systems confusion seems improving denies any chest pain or sob or abd pain Physical Exam Vital Signs: Vital Signs: Last Vital Signs Temp 98.8 F 07/12/22 13:34 Pulse 93 07/12/22 13:34 Resp 20 07/12/22 13:34 BP 102/47 L 07/12/22 13:34 Pulse Ox 96 07/12/22 13:34 O2 Del Method 07/12/22 13:34 BMI result Body Mass Index 27.5 Appearance: Alert.? Oriented X3, near baseline as per family cvs: rrr, [id number] res: clear to auscultation ,no rhonchii or wheezing abd: no rebound or guarding ,nt, bs present. ext pulses present , no cyanosis neuro: nonfocal. Objective Data Active Medications Acetaminophen (Acetaminophen 325 Mg Tablet) 650 mg PO Q6H PRN PRN Reason: Pain, Mild (Pain Scale 1-3) Apixaban (Apixaban 5 Mg Tablet) 5 mg PO BID [facility] Last Admin: 07/12/22 09:17 Dose: 5 mg Documented By: SAMANTHA Docusate Sodium (Docusate Sodium 100 Mg Capsule) 100 mg PO DAILY PRN PRN Reason: Constipation Doxazosin Mesylate (Doxazosin Mesylate 2 Mg Tablet) 8 mg PO BEDTIME [facility] Last Admin: 07/11/22 22:10 Dose: 8 mg Documented By: YAMILE Finasteride (Finasteride 5 Mg Tablet) 5 mg PO DAILY [facility] Last Admin: 07/12/22 09:16 Dose: 5 mg Documented By: SAMANTHA Lactated Ringer's (Lr) 1,000 mls @ 100 mls/hr IVCONT .Q10H [facility] Last Admin: 07/12/22 13:59 Dose: 1,000 mls/hr Documented By: KARISSA Ceftriaxone Sodium 1 gm/ (Sodium Chloride) 50 mls @ 100 mls/hr IV Q24H [facility] Last Infusion: 07/12/22 06:43 Dose: 100 mls/hr Documented By: YAMILE Metoprolol Tartrate (Metoprolol Tartrate 25 Mg Tablet) 25 mg PO BID [facility]; Protocol Last Admin: 09/10/22 09:16 Dose: 25 mg Documented By: SAMANTHA Ondansetron HCl (Ondansetron Hcl 4 Mg/2 Ml Vial) 4 mg IVPUSH Q8H PRN PRN Reason: Nausea and Vomiting Pharmacy Consult (Consult Rx Perform Med Rec) 1 each MISCELLANE ONCE PRN PRN Reason: Consult order Sodium Chloride (0.9 % Sodium Chloride Flush 3 Ml Syringe) 3 ml IVFLUSH QSHIFT [facility] Last Admin: 07/12/22 09:00 Dose: Not Given Documented By: SAMANTHA Non-Admin Reason: IV Running Labs CBC & Chem 7: 07/12/22 07:03 07/12/22 07:03 Labs: Laboratory Results - last 24 hr 07/12/22 07/12/22 07:03 07:03 MCV 90.3 MCH 30.0 MCHC 33.2 RDW 13.9 Plt Count 172 MPV 9.6 Immature Gran % (Auto) 0.4 Neut % (Auto) 84.9 H Lymph % (Auto) 10.3 L [place] % (Auto) 4.3 Eos % (Auto) 0.0 Baso % (Auto) 0.1 Lymph # (Auto) 1.0 L [place] # (Auto) 0.4 Eos # (Auto) 0.0 Baso # (Auto) 0.0 Abs Immat Gran (auto) 0.04 H Absolute Neuts (auto) 8.1 Absolute Nucleated RBC 0.000 Nucleated RBC % (auto) 0.0 Anion Gap 17 Estim Creat Clear Calc 68.0 Estimated GFR > 60 Random Glucose 137 H Calcium 7.9 L Total Creatine Kinase 1512 H D TSH 0.85 Microbiology Microbiology Results: Microbiology 07/11/22 Unknown Urine Culture - Final Urine clean catch - Urine luis top No growth. Assessment and Plan (1) BHUMI (acute kidney injury): Status: Acute (2) Weakness: Status: Acute (3) Rhabdomyolysis: Status: Acute (4) Acute UTI: Status: Acute (5) Toxic metabolic encephalopathy: Status: Acute Plan 72-year-old male with past medical history of diabetes, AFib presents to the hospital with complaints of weakness, cough, found to have COVID-19 infection # acute COVID-19 infection - no hypoxia, no evidence of pneumonia on chest x-ray -? continue to monitor oxygen - supportive measures # rhabdomyolysis: cpk trending down 1500 - no trauma, no recent immobility or fall - will treat with IV fluid - monitor BMP, CPK trending up # acute UTI - symptomatic - will treat with IV ceftriaxone Urine culture and blood culture pending # BHUMI slightly worseni- has elevated creatinine and BUN from baseline - impproving with IV fluid - follow BMP check pvr # weakness - likely secondary to above - may need PT OT prior to this she # AFib - chronic - continue apixaban and metoprolol for rate control toxic metabolic encephalopathy-multifactorial( as above bhumi,covid,uti,rhabo): improving cotninue above supportive care ct head neg added mri Pt eval DVT prophylaxis:? Apixaban need for inaptient:toxic metabolic encephalopathy,? Rhabdomyolysis requiring IV fluid, UTI on IV antibiotics Quality Stroke Does the patient have a stroke diagnosis?: No VTE Prior VTE?: No VTE Risk Level:: Medical - moderate - high VTE Device Contraindication: Treatment Not Indicated VTE Drug Contraindication: N/A - Med Ordered
[2022-07-12 15:52] LABS: Vitamin B12 735 pg/mL (200-900)
--- NOTE | 2022-07-12 18:41 | PC.NURSE ---
PATIENT WAS INC OF MEDIUM BOWEL MOVEMENT ,
[2022-07-12] MEDS: Doxazosin Mesylate 2 MG TABLET 8 MG PO (19:47)
--- NOTE | 2022-07-12 19:49 | PC.NURSE ---
Pt meds were given, pt was clean and changed. pt vs are stable, we will continue to monitor.
--- NOTE | 2022-07-12 23:32 | PC.NURSE ---
Pt was assisted to the commode, pt urinate on his bed. Pt VS are goign to [facility] once he is finish on the commode.
--- NOTE | 2022-07-12 23:34 | PC.NURSE ---
patient full bed change performed, ivf running per order
[2022-07-13] MEDS: cefTRIAXone sodium 1 GM in 0.9 % Sodium Chloride 50 ML IV (05:47)
[2022-07-13 07:08] LABS: Anion Gap 16 (12-20); Blood Urea Nitrogen 23 mg/dL (9-16); Calcium 8.1 mg/dL (8.4-10.2); Carbon Dioxide 20 mmol/L (22-29); Chloride 107 mmol/L (96-108); Creatinine Clr Calc Pharmacy 96.4; Estimated Glomerular Filt Rate > 60; Glucose Random 103 mg/dL (60-115); Potassium 3.9 mmol/L (3.3-5.1); Sodium 139 mmol/L (135-145)
[2022-07-13 08:18] VITALS: BP 104/45; PULSE 96; RESP 16; TEMP 36.4; O2SAT 98
[2022-07-13] MEDS: Finasteride 5 MG TABLET PO (10:23)
[2022-07-13] MEDS: Apixaban 5 MG TABLET PO (10:23)
[2022-07-13] MEDS: Metoprolol Tartrate 25 MG TABLET PO (10:23)
[2022-07-13] MEDS: Lactated Ringers 1,000 ML 100 ML IVCONT ×2 (10:24→16:49)
[2022-07-13] MEDS: 0.9 % Sodium Chloride Flush 3 ML SYRINGE IVFLUSH (10:25)
--- NOTE | 2022-07-13 12:12 | P.DS_ITS ---
DS: Providers Provider Date of Service: 07/13/22 Date of admission: 07/11/22 06:03 Primary care physician: Unknown Physician DS: Diagnosis Discharge Diagnosis (1) BHUMI (acute kidney injury): Status: Acute (2) Weakness: Status: Acute (3) Rhabdomyolysis: Status: Acute (4) Acute UTI: Status: Acute (5) Toxic metabolic encephalopathy: Status: Acute DS: Summary Hospital Course Hospital Course: 72-year-old male with past medical history of diabetes, chronic AFib, BPH, osteomyelitis status post amputation of left big toe, peripheral vascular disease, presents to the hospital with complaints of weakness.? Patient reports that he started feeling weak on the day of presentation, he has also had a cou gh, with some shortness of breath, for the past 1 week, denies any chest pain, no sputum production.? He also has rhinorrhea.? He lives with his mother who just been admitted to the hospital today with COVID infection.? He is not vaccinated against COVID.? No recent trauma or fall, no recent significant immobility.? Denies any abdominal pain, nausea or vomiting, has diarrhea this morning with 1 episode in the hospital, reports urinary frequency and urgency with no dysuria, but contributes it to his BPH medications. Patient denies any lower extremity edema.? No numbness weakness or tingling.? On arrival to the ED patient hemodynamically stable found to have a heart rate of 119 satting 93% on room air Labs are significant for WBC count of 5.8, labs otherwise unremarkable, has a BUN of 23 with a creatinine of 1.27 with a baseline of 0.93, CPK of 2385, BNP of 135, UA that is positive for leukocyte Estrace and WBC with minimal epithelia cells, COVID-19 positive Chest x-ray shows no acute cardiopulmonary disease Head CT negative Patient will be admitted for further management. Hospital course: Patient came to the hospital because of generalized weakness,toxic metabolic encephalopathy, acute kidney injury( BHUMI), UTI, rhabdomyolysis,covid : Patient was treated with IV hydration, IV antibiotics-seems to be improved significantly with supportive care. ct head and mri brain negative , mental status improved to baseline. Patient does not have leukocytosis or fever or shortness of breath. Now his mental status is at his baseline. Seen by PT recommended-home with services. Plan: Complete course of antibiotic. Encouraged for hydration Follow-up with PCP outpatient. Time Spent with Patient Time attestation: Total time spent providing and/or coordinating discharge services: Discharge coordination time: Greater than 30 minutes Quality: Safe Use of Opioids Does Pt have an Active Cancer Diagnosis on the Problem List?: No Quality: Stroke Does the patient have a stroke diagnosis?: No Physical Exam Vital Signs: Vital Signs: Last Vital Signs Temp 97.5 F 07/13/22 08:18 Pulse 96 07/13/22 08:18 Resp 16 07/13/22 08:18 BP 104/45 L 07/13/22 08:18 Pulse Ox 98 07/13/22 08:18 O2 Del Method 07/13/22 08:18 BMI result Body Mass Index 27.5 Appearance: Alert.? Oriented X3.? not in distress.? cvs: rrr, [id number] , no murmur res: clear to auscultation ,no rhonchii or wheezing abd: no rebound or guarding ,nt, bs present. ext pulses present , no cyanosis. neuro: axo3 , nonfocal. DS: Data Data Completed and Pending Completed studies during hospitalization [Text1]: Procedures Detachment at Left 1st Toe, Complete, Open Approach (01/23/21) Detachment at Left 2nd Toe, Low, Open Approach (10/10/20) Detachment at Left 3rd Toe, Complete, Open Approach (01/13/22) Dilation of Left Posterior Tibial Artery, Percutaneous Approach (01/23/21) Excision of Left Foot Skin, External Approach (01/23/21) Insertion of Infusion Device into Superior Vena Cava, Percutaneous Approach (01/13/22) Labs on day of discharge: Laboratory Results - last 24 hr 07/12/22 07/13/22 07:08 06:30 Sodium 139 Potassium 3.9 Chloride 107 Carbon Dioxide 20 L Anion Gap 16 BUN 23 H Creatinine 0.84 Estim Creat Clear Calc 96.4 Estimated GFR > 60 Random Glucose 103 Calcium 8.1 L Total Creatine Kinase 775 H D Vitamin B12 735 Discharge Plan Discharge Patient Disposition: Home Health Service Discharge Diagnosis: uti,bhumi,rhabdomylysis , toxic metabolic encephalopathy Referrals: Physician,Unknown J [Primary Care Provider] - 1 Week Discharge Medications: New docusate sodium 100 mg Capsule 100 mg PO DAILY PRN (Reason: Constipation) Qty: 30 0RF cefuroxime axetil 250 mg tablet 250 mg PO Q12H Qty: 14 0RF Continued metoprolol tartrate 25 mg tablet 25 mg PO BID 90 Days Qty: 180 3RF Eliquis 5 mg tablet 5 mg PO BID 90 Days Qty: 180 1RF Hold Instructions: Resume on 10/12/20. Resume taking your Eliquis on 10/12/2020, after your visit with the visiting nurse. tamsulosin 0.4 mg capsule 1 cap PO DAILY@1700 (DME) lancets 28 gauge misc See Rx Instructions topical DAILY Qty: 100 Rx Instructions: As directed terazosin 10 mg capsule 10 mg PO BEDTIME 90 Days Qty: 90 1RF finasteride 5 mg tablet 5 mg PO DAILY 90 Days Qty: 90 1RF Discharge Orders: Discharge Order (Routine); Ordered 07/13/22 Ordered By: Ana Cristina Griggs Diet: Advance to usual diet Activity on Discharge: As tolerated Stand Alone Forms: Patient Portal Discharge page Care Plan Goals: Patient came to the hospital because of generalized weakness, confusion(toxic metabolic encephalopathy), acute kidney injury( BHUMI), infection in the urine( UTI), also found to have muscle enzyme leak: Patient was treated with IV hydration, IV antibiotics-seems to be improved significantly with supportive care. Now his mental status is at his baseline. Seen by PT recommended-home with services Health Concerns: as above. If any new confusion or fever or any abdominal pain or new symptoms please call out to the nearest emergency room for further evaluation. Plan of Treatment: Complete course of antibiotic . Encouraged for hydration. Follow-up with PCP. Assessment: As above. Patient Instructions: Acute Kidney Injury (DC), Urinary Tract Infection in Men (DC), Rhabdomyolysis (DC), Encephalopathy (DC)
--- NOTE | 2022-07-13 12:14 | W.MHC.F2F ---
Service Date Service Date: 07/13/22 Encounter Date of encounter: 07/13/22 Encounter: toxic metabolic encephalopathy Reasons for Services Signs and symptoms assessed: uti,gala,rhabdomylysis , toxic metabolic encephalopathy Reason for residential: medication management, medication treatment and teach disease management Reason for physical therapy: home safety and mobility, therapeutic exercises, restore joint function, gait/transfer training, assess need for DME, ADL training, energy conservation and other MD Overseeing Care: Ramin Medrano Homebound: Leaving the home is medically contraindicated at this time without the asist of a device and/or another person due th the listed conditions above and below. Reason homebound: weakness related to hospital stay Homebound supporting statement: Patient is generalized weak post hospitalization and has multiple medical comorbidities needs help to go to appointments Certification: Based on the above findings, I certify that this patient is confined to the home and needs intermittent residential care, physical therapy and/or speech therapy, or continues to need occupational therapy. The patient is under my care, and I have initiated the establishment of the plan of care. The patient will be followed by a physician who will periodically review the plan of care.
--- NOTE | 2022-07-13 12:33 | MHC.CM.PN ---
Addendum entered by Sammie Alicia 07/13/22 13:58: D/C now on hold: pt has developed a body rash (? from ATB). ED RN has called Abhilash, pt's brother and transportation to inform him of pt's continued stay. [facility] updated on d/c hold as well. Original Note: Pt has been medically cleared by MD to d/c to home: Pt aware and in agreement w/plan: states he is weak but better overall. Pt's brother called and will transport pt to home at 2pm today. Pt has [facility] set up through [facility] for RN /PT visits.
--- NOTE | 2022-07-13 13:34 | HO.PM.IMPN ---
Subjective Subjective Date of Service: 07/14/22 Interval History: ? allergy cross to ceftraixone Review of Systems has redness of skin/itching denies any sob or chest pain or nause a Physical Exam Vital Signs: Vital Signs: Last Vital Signs Temp 97.5 F 07/13/22 08:18 Pulse 96 07/13/22 08:18 Resp 16 07/13/22 08:18 BP 104/45 L 07/13/22 08:18 Pulse Ox 98 07/13/22 08:18 O2 Del Method 07/13/22 08:18 BMI result Body Mass Index 27.5 Appearance: Alert.? Oriented X3, near baseline as per family cvs: rrr, [id number] res: clear to auscultation ,no rhonchii or wheezing abd: no rebound or guarding ,nt, bs present. ext pulses present , no cyanosis neuro: nonfocal. skin:diffuse rash , itching Objective Data Active Medications Acetaminophen (Acetaminophen 325 Mg Tablet) 650 mg PO Q6H PRN PRN Reason: Pain, Mild (Pain Scale 1-3) Apixaban (Apixaban 5 Mg Tablet) 5 mg PO BID [facility] Last Admin: 07/13/22 10:23 Dose: 5 mg Documented By: TROY Docusate Sodium (Docusate Sodium 100 Mg Capsule) 100 mg PO DAILY PRN PRN Reason: Constipation Doxazosin Mesylate (Doxazosin Mesylate 2 Mg Tablet) 8 mg PO BEDTIME [facility] Last Admin: 07/12/22 19:47 Dose: 8 mg Documented By: KARISSA Finasteride (Finasteride 5 Mg Tablet) 5 mg PO DAILY [facility] Last Admin: 07/13/22 10:23 Dose: 5 mg Documented By: TROY Lactated Ringer's (Lr) 1,000 mls @ 100 mls/hr IVCONT .Q10H [facility] Last Admin: 07/13/22 10:24 Dose: 100 mls/hr Documented By: TROY Metoprolol Tartrate (Metoprolol Tartrate 25 Mg Tablet) 25 mg PO BID [facility]; Protocol Last Admin: 07/13/22 10:23 Dose: 25 mg Documented By: TROY Ondansetron HCl (Ondansetron Hcl 4 Mg/2 Ml Vial) 4 mg IVPUSH Q8H PRN PRN Reason: Nausea and Vomiting Pharmacy Consult (Consult Rx Perform Med Rec) 1 each MISCELLANE ONCE PRN PRN Reason: Consult order Sodium Chloride (0.9 % Sodium Chloride Flush 3 Ml Syringe) 3 ml IVFLUSH QSHIFT [facility] Last Admin: 07/13/22 10:25 Dose: 3 ml Documented By: TROY Labs CBC & Chem 7: 07/12/22 07:03 07/13/22 06:30 Labs: Laboratory Results - last 24 hr 07/12/22 07/13/22 07:08 06:30 Anion Gap 16 Estim Creat Clear Calc 96.4 Estimated GFR > 60 Random Glucose 103 Calcium 8.1 L Total Creatine Kinase 775 H D Vitamin B12 735 Microbiology Microbiology Results: Microbiology 07/11/22 Unknown Urine Culture - Final Urine clean catch - Urine luis top No growth. Assessment and Plan (1) Toxic metabolic encephalopathy: Status: Acute (2) Acute UTI: Status: Acute (3) Prostatitis: Status: Acute Plan 72-year-old male with past medical history of diabetes, AFib presents to the hospital with complaints of weakness, cough, found to have COVID-19 infection # acute COVID-19 infection - no hypoxia, no evidence of pneumonia on chest x-ray -? continue to monitor oxygen - supportive measures # rhabdomyolysis: cpk trending down 1500 - no trauma, no recent immobility or fall - will treat with IV fluid - monitor BMP, CPK trending up # acute UTI - symptomatic - will treat with IV ceftriaxone Urine culture -neg d/w iD seems has urinary sympoms -possible prostatitis : will switch to levoquin ( she received 3 days antibiotucs -will add levaquin to complete 14 days antibiotics). # BHUMI slightly worseni- has elevated creatinine and BUN from baseline - impproving with IV fluid - follow BMP check pvr # weakness - likely secondary to above - may need PT OT prior to this she # AFib - chronic - continue apixaban and metoprolol for rate control toxic metabolic encephalopathy-multifactorial( as above bhumi,covid,uti,rhabo): improving cotninue above supportive care ct head neg mri-neg difuse rash/itching: ? cross reactivity to ceftriaxone hold ceftin iv steriods and benadryl no respiratory symptoms or cough or mucosal swellin moniter clolsey Pt eval DVT prophylaxis:? Apixaban need for inaptient:toxic metabolic encephalopathy,? Rhabdomyolysis requiring IV fluid, UTI on IV antibiotics, allergic reaction Quality Stroke Does the patient have a stroke diagnosis?: No VTE Prior VTE?: No VTE Risk Level:: Medical - moderate - high VTE Device Contraindication: Treatment Not Indicated VTE Drug Contraindication: N/A - Med Ordered
--- NOTE | 2022-07-13 13:52 | PC.NURSE ---
WHILE GETTING READY TO D/C PT, T/W NOTICED REDNESS ALL OVER SKIN. DR CHEN NOTIFIED, WILL KEEP HIM 1 MORE DAY. TO RECEIVE DIFFERENT ABX AND STEROIDS
[2022-07-13] MEDS: methylPREDNISolone Sod Succ 40 MG/ML VIAL IVPUSH ×2 (14:31→18:41)
[2022-07-13] MEDS: diphenhydrAMINE HCL 50 MG/ML VIAL 12.5 MG IVPUSH (14:31)
--- NOTE | 2022-07-13 14:33 | PC.NURSE ---
pt dressed and ready for discharge but had full body redness and assumed reaction to ceftin, denies sob or itchiness, medicated as ordered,
[2022-07-13 16:53] VITALS: BP 121/66; PULSE 81; RESP 16; TEMP 37.1; O2SAT 95
[2022-07-13 23:39] VITALS: BP 142/85; PULSE 71; RESP 16; TEMP 36.8; O2SAT 97
[2022-07-14] MEDS: Doxazosin Mesylate 2 MG TABLET 8 MG PO (00:58)
[2022-07-14] MEDS: Metoprolol Tartrate 25 MG TABLET PO ×2 (00:58→10:18)
[2022-07-14] MEDS: Apixaban 5 MG TABLET PO ×2 (00:58→10:17)
[2022-07-14 03:50] VITALS: BP 110/75; PULSE 76; RESP 16; O2SAT 97
[2022-07-14] MEDS: Lactated Ringers 1,000 ML 100 ML IVCONT (05:18)
[2022-07-14] MEDS: methylPREDNISolone Sod Succ 40 MG/ML VIAL IVPUSH (06:36)
[2022-07-14 07:09] VITALS: BP 117/57; PULSE 54; RESP 14; TEMP 36.4; O2SAT 95
[2022-07-14 07:29] LABS: Glucose, Whole Blood 195 mg/dL (60-115)
--- NOTE | 2022-07-14 08:50 | PC.NURSE ---
pt a/o x 4 no sob/sergei noted skin pink warm dry speaks in full sentences. lungs - cta, heart sound regular. abd soft and n/t. bs + x 4 quads. pt aware of plan of care.
[2022-07-14 08:54] VITALS: BP 125/56; PULSE 61; RESP 16; O2SAT 94
--- NOTE | 2022-07-14 09:13 | MHC.CM.PN ---
pt dcd from [facility] notified of dc unable to reach brother will continue to try
[2022-07-14 10:14] VITALS: BP 135/67; PULSE 68; RESP 16; TEMP 36.4; O2SAT 95
[2022-07-14] MEDS: 0.9 % Sodium Chloride Flush 3 ML SYRINGE IVFLUSH (10:17)
--- NOTE | 2022-07-14 10:20 | PC.NURSE ---
pt's katty knee slight redness noted, no rash/hives noted. pt to be d/c'd home with brother. dr. morales at bedside, pt aware of plan of care.
== END 2022-07-14 11:08 | disposition home health service (06) | DRG 177 ==
LOC: HO.ED 07-11 00:53 → HO.EDOVER 07-11 06:12
PROVIDERS: Physician Assistant; Admitting Provider Internal Medicine; Emergency Provider Internal Medicine; Visit Provider Internal Medicine
DX: U07.1 COVID-19 (principal); G92.8 Other toxic encephalopathy; I48.20 Chronic atrial fibrillation, unspecified; M86.9 Osteomyelitis, unspecified; N39.0 Urinary tract infection, site not specified; M62.82 Rhabdomyolysis; N17.9 Acute kidney failure, unspecified; E11.69 Type 2 diabetes mellitus with other specified complication; E11.40 Type 2 diabetes mellitus with diabetic neuropathy, unspecified; E11.51 Type 2 diabetes mellitus with diabetic peripheral angiopathy without gangrene; N41.9 Inflammatory disease of prostate, unspecified; N40.0 Benign prostatic hyperplasia without lower urinary tract symptoms; Z28.310 Unvaccinated for COVID-19; Z88.0 Allergy status to penicillin; Z88.1 Allergy status to other antibiotic agents; Z79.01 Long term (current) use of anticoagulants; Z79.899 Other long term (current) drug therapy
CPT/HCPCS: 36415; 70360; 70450; 70551; 71045; 74018; 80048; 80053; 81001; 82550; 82607; 82947; 83880; 84443; 84484; 85025; 85610; 87086; 87635; 87651; 93005; 97161; 99285; J0696; J1200; J1956; J2920

== ENCOUNTER → 2022-07-30 13:16 | Outpatient (BNVA) | payer MEDICARE, BC, SELFPAY | PROVIDERS: Visit Provider Urology | DX: N40.1 Benign prostatic hyperplasia with lower urinary tract symptoms (principal); R33.8 Other retention of urine; E08.40 Diabetes mellitus due to underlying condition with diabetic neuropathy, unspecified; Z79.899 Other long term (current) drug therapy | CPT/HCPCS: 51798; 99212 ==

== ENCOUNTER → 2022-08-27 13:31 | Outpatient (BNVA) | payer MEDICARE, BC, SELFPAY | PROVIDERS: PCP Internal Medicine; Visit Provider Internal Medicine Cardiovascular Disease | DX: I48.0 Paroxysmal atrial fibrillation (principal); Z79.01 Long term (current) use of anticoagulants; Z79.899 Other long term (current) drug therapy | CPT/HCPCS: 93005; 99212 ==

== ENCOUNTER 2022-10-03 10:37 | Outpatient (REF) | payer MEDICARE, BC, SELFPAY | END 2022-10-03 10:38 | disposition home or self-care (01) | LOC: HO.LAB 10:37 | PROVIDERS: Visit Provider Urology | DX: N39.0 Urinary tract infection, site not specified (principal); R33.9 Retention of urine, unspecified; N41.9 Inflammatory disease of prostate, unspecified | CPT/HCPCS: 51798; 87086; 99212 ==

== ENCOUNTER 2022-12-01 08:19 | Outpatient (REF) | payer MEDICARE, BC, SELFPAY ==
[2022-12-01 08:42] LABS: MANUAL DIFF FLAG NO
[2022-12-01 08:51] LABS: Basophils Absolute Auto 0.1 X10*3/uL (0.0-0.2); Basophils Percent Auto 0.7 % (0-2); Eosinophils Absolute Auto 0.3 X10*3/uL (0.0-0.4); Eosinophils Percent Auto 3.6 % (0-4); Hematocrit 39.1 % (42.0-52.0); Hemoglobin 13.3 g/dl (14.0-18.0); Imm Gran Abs Auto 0.02 X10*3/uL (0.00-0.03); Imm Gran Pct Auto 0.3 % (0.0-0.4); Lymphocytes Absolute Auto 1.7 X10*3/uL (1.2-4.9); Lymphocytes Percent Auto 21.9 % (20-40); Mean Corpuscular Hemoglobin 30.2 pg (27.0-33.0); Mean Corpuscular Volume 88.9 fL (80.0-98.0); Mean Platelet Volume 8.7 fL (9.4-12.4); Monocytes Absolute Auto 0.5 X10*3/uL (0.1-1.2); Monocytes Percent Auto 7.2 % (2-11); Neutrophils Percent Auto 66.3 % (45-73); Platelet Count 245 X10*3/uL (160-400); Red Cell Distribution Width 13.2 % (11.0-16.0); White Blood Count 7.5 X10*3/uL (4.8-10.8)
[2022-12-01 09:19] LABS: Estimated Average Glucose 134 mg/dL; Hemoglobin A1c % 6.3 %
[2022-12-01 10:09] LABS: Alanine Aminotransferase 11 U/L (0-40); Albumin Level 4.1 g/dL (3.5-5.0); Alkaline Phosphatase 75 U/L (39-117); Anion Gap 13 (12-20); Aspartate Amino Transferase 16 U/L (5-37); Bilirubin Total 0.6 mg/dL (0.0-1.0); Blood Urea Nitrogen 22 mg/dL (9-16); Calcium 9.8 mg/dL (8.4-10.2); Carbon Dioxide 26 mmol/L (22-29); Chloride 104 mmol/L (96-108); Cholesterol 202 mg/dL; Estimated Glomerular Filt Rate > 60; Glucose Fasting 142 mg/dL (60-99); Glucose Random 143 mg/dL (60-115); HDL Cholesterol 36 mg/dL; LDL Cholesterol Calculated 113 mg/dl; Potassium 4.4 mmol/L (3.3-5.1); Sodium 139 mmol/L (135-145); Total Protein 6.9 g/dL (6.5-8.0); Triglycerides 266 mg/dL
== END 2022-12-01 08:20 | disposition home or self-care (01) ==
LOC: HO.LAB 08:19
PROVIDERS: PCP Internal Medicine; Visit Provider Internal Medicine
DX: I48.0 Paroxysmal atrial fibrillation (principal); I73.9 Peripheral vascular disease, unspecified; R73.03 Prediabetes; I10 Essential (primary) hypertension; E78.5 Hyperlipidemia, unspecified
CPT/HCPCS: 36415; 80048; 80053; 80061; 83036; 85025

== ENCOUNTER 2023-03-25 10:28 | Outpatient (REF) | payer MEDICARE, BC, SELFPAY ==
[2023-03-25 13:36] LABS: MANUAL DIFF FLAG NO
[2023-03-25 13:43] LABS: Basophils Percent Auto 0.5 % (0-2); Eosinophils Absolute Auto 0.2 X10*3/uL (0.0-0.4); Hematocrit 39.5 % (42.0-52.0); Hemoglobin 13.5 g/dl (14.0-18.0); Imm Gran Abs Auto 0.03 X10*3/uL (0.00-0.03); Imm Gran Pct Auto 0.4 % (0.0-0.4); Lymphocytes Absolute Auto 1.6 X10*3/uL (1.2-4.9); Lymphocytes Percent Auto 19.6 % (20-40); Mean Corpuscular HGB Conc 34.2 g/dl (31.0-36.0); Mean Corpuscular Hemoglobin 31.3 pg (27.0-33.0); Mean Corpuscular Volume 91.4 fL (80.0-98.0); Monocytes Absolute Auto 0.6 X10*3/uL (0.1-1.2); Neutrophils Absolute Auto 5.6 x10*3/uL (2.0-8.3); Neutrophils Percent Auto 69.5 % (45-73); Platelet Count 268 X10*3/uL (160-400); Red Blood Count 4.32 X10*6/uL (4.60-5.80); Red Cell Distribution Width 13.5 % (11.0-16.0)
[2023-03-25 14:07] LABS: Anion Gap 14 (12-20); Blood Urea Nitrogen 21 mg/dL (9-16); Carbon Dioxide 27 mmol/L (22-29); Chloride 102 mmol/L (96-108); Estimated Glomerular Filt Rate > 60; Glucose Random 141 mg/dL (60-115); Iron 93 mcg/dL (45-160); Percent Iron Saturation 35 % (15-50); Potassium 4.8 mmol/L (3.3-5.1); Sodium 138 mmol/L (135-145); Total Iron Binding Capacity 263 mcg/dL (228-428); Unsaturated Iron Binding 170 ug/dL
[2023-03-25 14:13] LABS: Estimated Average Glucose 131 mg/dL; Hemoglobin A1c % 6.2 %
== END 2023-03-25 10:29 | disposition home or self-care (01) ==
LOC: HO.10HDL 10:28
PROVIDERS: Visit Provider Internal Medicine
DX: E11.9 Type 2 diabetes mellitus without complications (principal); I48.0 Paroxysmal atrial fibrillation; D64.9 Anemia, unspecified; E55.9 Vitamin D deficiency, unspecified
CPT/HCPCS: 36415; 80048; 82306; 83036; 83540; 85025

== ENCOUNTER → 2023-04-02 09:38 | Outpatient (BNVA) | payer MEDICARE, BC, SELFPAY | PROVIDERS: PCP Internal Medicine; Visit Provider Urology | DX: R33.9 Retention of urine, unspecified (principal); E08.40 Diabetes mellitus due to underlying condition with diabetic neuropathy, unspecified | CPT/HCPCS: 51798; 99212 ==

== ENCOUNTER 2023-06-25 10:29 | Outpatient (REF) | payer MEDICARE, BC, SELFPAY ==
[2023-06-25 13:08] LABS: MANUAL DIFF FLAG NO
[2023-06-25 13:13] LABS: Basophils Absolute Auto 0.1 X10*3/uL (0.0-0.2); Basophils Percent Auto 0.6 % (0-2); Eosinophils Absolute Auto 0.2 X10*3/uL (0.0-0.4); Eosinophils Percent Auto 2.3 % (0-4); Hematocrit 38.7 % (42.0-52.0); Hemoglobin 13.2 g/dl (14.0-18.0); Imm Gran Abs Auto 0.03 X10*3/uL (0.00-0.03); Imm Gran Pct Auto 0.4 % (0.0-0.4); Lymphocytes Absolute Auto 1.5 X10*3/uL (1.2-4.9); Lymphocytes Percent Auto 18.8 % (20-40); Mean Corpuscular HGB Conc 34.1 g/dl (31.0-36.0); Mean Corpuscular Hemoglobin 30.8 pg (27.0-33.0); Mean Corpuscular Volume 90.2 fL (80.0-98.0); Mean Platelet Volume 9.7 fL (9.4-12.4); Monocytes Absolute Auto 0.6 X10*3/uL (0.1-1.2); Monocytes Percent Auto 7.8 % (2-11); Neutrophils Absolute Auto 5.6 x10*3/uL (2.0-8.3); Neutrophils Percent Auto 70.1 % (45-73); Platelet Count 252 X10*3/uL (160-400); Red Blood Count 4.29 X10*6/uL (4.60-5.80); Red Cell Distribution Width 13.3 % (11.0-16.0)
[2023-06-25 13:29] LABS: Alanine Aminotransferase 16 U/L (0-40); Albumin Level 4.1 g/dL (3.5-5.0); Alkaline Phosphatase 62 U/L (39-117); Anion Gap 13 (12-20); Aspartate Amino Transferase 17 U/L (5-37); Bilirubin Total 0.5 mg/dL (0.0-1.0); Blood Urea Nitrogen 21 mg/dL (9-16); Calcium 9.8 mg/dL (8.4-10.2); Carbon Dioxide 25 mmol/L (22-29); Chloride 102 mmol/L (96-108); Estimated Glomerular Filt Rate > 60; Glucose Random 179 mg/dL (60-115); Potassium 4.6 mmol/L (3.3-5.1); Sodium 135 mmol/L (135-145); Total Protein 7.4 g/dL (6.5-8.0)
[2023-06-25 13:48] LABS: Estimated Average Glucose 134 mg/dL; Hemoglobin A1c % 6.3 % (<6.0)
== END 2023-06-25 10:30 | disposition home or self-care (01) ==
LOC: HO.10HDL 10:29
PROVIDERS: Visit Provider Internal Medicine
DX: R73.03 Prediabetes (principal); I48.0 Paroxysmal atrial fibrillation; N40.0 Benign prostatic hyperplasia without lower urinary tract symptoms; G62.9 Polyneuropathy, unspecified
CPT/HCPCS: 36415; 80053; 83036; 85025

== ENCOUNTER 2023-08-26 11:57 | Outpatient (AMB) | payer MEDICARE, BC, SELFPAY ==
--- NOTE | 2023-08-26 12:46 | A.OFFVIS_ITS ---
Intake Vital Signs 08/26/23 12:49 Height 6 ft 3 in Weight 214 lb 4.629 oz BMI 26.8 BP 140/80 H Blood Pressure Location Lt brachial Position Sitting Pulse 81 Intake Visit Reasons: 1 yr f/up Intake Note: 1 year follow up w/ EKG Blind Cleaner Required: No Accompanied by: Self / Same As Patient Allergies penicillin V Allergy (Intermediate, Verified 08/26/23 12:49) rash Erythromycin Allergy (Intermediate, Uncoded 08/26/23 12:49) diarrhea Medication List - Last Reconciled 08/26/23 by Sharif Alexander MD apixaban (Eliquis) 5 mg PO BID 90 days bethanechol chloride 25 mg PO BID 90 days docusate sodium 100 mg PO DAILY PRN finasteride 5 mg PO DAILY 90 days lancets As directed levofloxacin 250 mg PO DAILY metoprolol tartrate 25 mg PO BID 90 days prednisone 20 mg PO DAILY terazosin 10 mg PO BEDTIME 90 days HPI HPI Comments History of Present Illness Details 73-year-old gentleman with history of pa roxysmal atrial fibrillation was here for follow-up. He has been doing well. He had COVID-19 infection in July 2022 and was in the hospital for 4 days. He is saying he has recovered from that. He also had toe amputation due to diabetes. Denying chest pain or shortness of breath. No palpitations. EKG in the office is showing sinus rhythm. No bleeding concerns with Eliquis. 08/26/2023: He returns for follow-up. Marimar buenrostro is undergoing cataract surgery. He also has urinary incontinence and is following in neurology. Blood pressure is a little elevated. Overall clinically stable. No bleeding concerns. [facility] Medical History Amputated toe of right foot Amputation of great toe Amputation of toe of left foot Arrhythmia Chronic a-fib History of amputation of toe History of heart valve abnormality History of neuropathy Osteomyelitis Osteomyelitis Osteomyelitis of second toe of left foot Pre-diabetes PVD (peripheral vascular disease) Ulcer of left second toe Surgical History Status post amputation of toe Hx of amputation Status post ORIF of fracture of ankle Family History Mother CAD (coronary artery disease) Social History Household Members: Family Housing: House Do you presently have visiting nurse or other home services: No Alcohol intake: never Patient Tobacco Use Status: Never used Tobacco Second Hand Smoke Exposure: No Advance Directives Date on File: 08/07/20 service: No Current occupational status: retired Review of Systems Const Denies weakness ENT Denies dizziness Card Denies chest pain, Denies chest pain with activity, Denies syncope, Denies rapid heart rate, Denies pedal edema, Denies edema, Denies leg edema, Denies lightheadedness, Denies palpitations, Denies dyspnea, Denies dyspnea on exertion and Denies orthopnea Resp Denies cough, Denies dyspnea and Denies dyspnea on exertion GI Denies hematochezia and Denies change in stool character Musc Denies abnormal gait, Denies muscle cramps, Denies muscle weakness, Denies numbness, Denies radiating pain into limb and Denies tingling Neuro Denies abnormal gait, Denies dizziness, Denies syncope, Denies numbness, Denies tingling and Denies weakness Endo Denies palpitations Physical Exam Vital Signs: Last Vital Signs Pulse 81 08/26/23 12:49 BP 140/80 H 08/26/23 12:49 BMI result Body Mass Index 26.8 GENERAL APPEARANCE: in no acute distress, pleasant. NECK: no carotid bruit, no jugular venous distention. SKIN: no suspicious lesions, warm and dry. HEART: no murmurs, regular rate and rhythm. LUNGS: clear to auscultation bilaterally. ABDOMEN: soft, nontender. EXTREMITIES: no edema. Office Procedures EKG Details: Sinus rhythm 81 beats per minute, normal axis, normal ECG, QTC 420 milliseconds. [id number], Complete Assessment & Plan Assessment & Plan (1) PAF (paroxysmal atrial fibrillation): Code(s): I48.0 - Paroxysmal atrial fibrillation Plan 73-year-old gentleman here for follow-up. He has background history of paroxysmal atrial fibrillation. He has been on apixaban for anticoagulation and has been tolerating it well. He also has been on metoprolol tartrate 25 mg twice a day. His blood pressure is mildly elevated. I have advised him to increase the metoprolol to 50 mg twice a day. Scripts sent. He can follow up with us once a year. Thank you for allowing me to participate in the care of your patient. Please feel free to contact me if you have any questions. Medications: New metoprolol tartrate 50 mg PO BID 100 tabs 3RF Discontinued metoprolol tartrate Discontinued Reason: None 25 mg PO BID 90 days 180 tabs 3RF Coding Level of Care Code Est Pt Level 3 (81887) Diagnoses PAF (paroxysmal atrial fibrillation) I48.0 CPT Codes EKG - CPT: 69318-[id number], Complete ([id number])
[2023-08-26 12:49] VITALS: BP 140/80; PULSE 81; BMI 26.8
== END 2023-08-26 13:14 | disposition home or self-care (01) ==
PROVIDERS: Visit Provider Internal Medicine Cardiovascular Disease
DX: I48.0 Paroxysmal atrial fibrillation (principal)
CPT/HCPCS: 93010; 99213

== ENCOUNTER → 2023-08-26 11:57 | Outpatient (BNVA) | payer MEDICARE, BC, SELFPAY ==
--- NOTE | 2023-11-17 11:03 | HP_ITS ---
DATE OF SERVICE: 08/26/2023 HISTORY OF PRESENT ILLNESS: The patient is a 73-year-old male who was seen in the office on 11/11/2023, for preop evaluation prior to cataract surgery with Dr. Laurenterg is scheduled for November 23 in November 30. Patient feels well, has no specific complaints. REVIEW OF SYSTEMS: Weight is up about 9 pounds. No fevers, chills, or sweats. No headaches or dizziness. No chest pains or palpitations. No peripheral edema. No coughing or shortness of breath. No heartburn or stomach pains. Some nocturia, occasional incontinence, arthritis in his feet. No speech or confusion problems. Sleep and appetite are normal. No reported seasonal allergies. No bleeding problems. PAST MEDICAL HISTORY: Significant for an allergy to penicillin, atopic dermatitis, [id number] diabetes, paroxysmal atrial fibrillation, low vitamin D, BPH, peripheral neuropathy, anemia. He has been hospitalized in the past for sepsis and cellulitis. He has mitral valve regurg. He has a history of psoriasis, elevated cholesterol. FAMILY HISTORY: Significant for mother in her 90s from heart disease. Father at 76 from COPD. He has 1 brother, in good health. SOCIAL HISTORY: He is single, retired, lives with his brother. PHYSICAL EXAMINATION: GENERAL: He is awake and alert. He is in no distress. VITAL SIGNS: Temperature 97.6, pulse 77, respirations 12, blood pressure 122/70, oxygen saturations 96% on room air. Weight is 213. He is 6 feet 3 inches. HEENT: Pupils equal. Wax cleared from the left. HEART: Sounds S1 and S2. Regular rate. LUNGS: Clear. ABDOMEN: Soft, nontender. EXTREMITIES: No clubbing, cyanosis. 2+ pulses. He does not smoke. NEUROLOGIC: Cranial nerves II through XII are intact. He is alert and oriented. LABORATORY DATA: Last labs show A1c of 6.3. ASSESSMENT AND PLAN: He is medically stable for the proposed procedure. I will be available if there are any medical issues. Handy Medrano MD FC/MODL / [phone]
== END ==
PROVIDERS: Visit Provider Internal Medicine Cardiovascular Disease
DX: I48.0 Paroxysmal atrial fibrillation (principal)
CPT/HCPCS: 93005; 99212

== ENCOUNTER 2023-11-18 10:23 | Outpatient (REF) | payer MEDICARE, BC, SELFPAY ==
[2023-11-18 10:39] LABS: MANUAL DIFF FLAG NO
[2023-11-18 10:53] LABS: Basophils Percent Auto 0.6 % (0-2); Eosinophils Absolute Auto 0.2 X10*3/uL (0.0-0.4); Eosinophils Percent Auto 3.3 % (0-4); Hematocrit 37.2 % (42.0-52.0); Hemoglobin 12.5 g/dl (14.0-18.0); Imm Gran Abs Auto 0.03 X10*3/uL (0.00-0.03); Imm Gran Pct Auto 0.4 % (0.0-0.4); Lymphocytes Absolute Auto 1.5 X10*3/uL (1.2-4.9); Lymphocytes Percent Auto 22.1 % (20-40); Mean Corpuscular HGB Conc 33.6 g/dl (31.0-36.0); Mean Corpuscular Hemoglobin 30.4 pg (27.0-33.0); Mean Corpuscular Volume 90.5 fL (80.0-98.0); Monocytes Absolute Auto 0.6 X10*3/uL (0.1-1.2); Monocytes Percent Auto 7.9 % (2-11); Neutrophils Absolute Auto 4.6 x10*3/uL (2.0-8.3); Neutrophils Percent Auto 65.7 % (45-73); Platelet Count 225 X10*3/uL (160-400); Red Blood Count 4.11 X10*6/uL (4.60-5.80); Red Cell Distribution Width 13.1 % (11.0-16.0)
[2023-11-18 11:01] LABS: Estimated Average Glucose 137 mg/dL; Hemoglobin A1C 150.0641 umol/L; Hemoglobin A1c % 6.4 % (<6.0)
[2023-11-18 11:26] LABS: Alanine Aminotransferase 16 U/L (0-40); Albumin Level 4.1 g/dL (3.5-5.0); Alkaline Phosphatase 57 U/L (39-117); Anion Gap 10 (12-20); Aspartate Amino Transferase 15 U/L (5-37); Bilirubin Total 0.5 mg/dL (0.0-1.0); Blood Urea Nitrogen 25 mg/dL (9-16); Calcium 9.8 mg/dL (8.4-10.2); Carbon Dioxide 28 mmol/L (22-29); Chloride 102 mmol/L (96-108); Estimated Glomerular Filt Rate > 60; Glucose Random 168 mg/dL (60-115); Iron 104 mcg/dL (45-160); Percent Iron Saturation 43 % (15-50); Potassium 5.1 mmol/L (3.3-5.1); Sodium 135 mmol/L (135-145); Total Iron Binding Capacity 244 mcg/dL (228-428); Total Protein 6.9 g/dL (6.5-8.0); Unsaturated Iron Binding 140 ug/dL
[2023-11-18 12:23] LABS: Creatinine Urine 88.44 mg/dL; Microalbum/Creatinine Ratio Ur 261.1 ug/mg cr (<30)
== END 2023-11-18 10:24 | disposition home or self-care (01) ==
LOC: HO.LAB 10:23
PROVIDERS: PCP Internal Medicine; Visit Provider Internal Medicine
DX: D64.9 Anemia, unspecified (principal); I48.0 Paroxysmal atrial fibrillation; E11.9 Type 2 diabetes mellitus without complications; N40.0 Benign prostatic hyperplasia without lower urinary tract symptoms
CPT/HCPCS: 36415; 80053; 82043; 82570; 83036; 83540; 85025

== ENCOUNTER 2023-11-23 09:03 | Day surgery (SDC) | payer MEDICARE, BC, SELFPAY ==
[2023-11-18 09:40] VITALS: BMI 27.0
--- NOTE | 2023-11-19 12:06 | HO.ANESPROP2 ---
Documented by User: Nikky Francisco NP 11/19/23 12:07 HPI - Anesthesia Eval Consult details Narrative: 73yo M for Left Cataract Extraction IOL Insertion Medically cleared No previous cataract on record Eliquis for afib PMFSH Active Problems Active Problems: All Active Problems (Updated 11/19/23 @ 06:54 by Stefany Schaefer RN) PAF (paroxysmal atrial fibrillation) (Acute) Prostatitis (Acute) Acute UTI (Acute) Rhabdomyolysis (Acute) COVID (Acute) Diabetic neuropathy associated with diabetes mellitus due to underlying condition (Acute) Urinary retention with incomplete bladder emptying (Acute) Rash of body (Acute) Status post amputation of toe (Acute) Amputation of great toe (Acute) Arrhythmia (Acute) Past Medical History Medical History Psoriasis Sepsis Elevated cholesterol Anemia BPH (benign prostatic hyperplasia) Diabetes Vitamin D deficiency Neuropathy HTN (hypertension) Chronic a-fib Amputation of great toe Osteomyelitis PVD (peripheral vascular disease) Amputation of toe of left foot Pre-diabetes History of neuropathy Arrhythmia Osteomyelitis of second toe of left foot Ulcer of left second toe Amputated toe of right foot History of amputation of toe History of heart valve abnormality Family History Family History Mother CAD (coronary artery disease) Family history of problems with anesthesia: No Surgical History Surgical History Status post amputation of toe Hx of amputation Status post ORIF of fracture of ankle History of Problems with Anesthesia: No Social History Social History Household Members: Family Housing: House Are you a primary care management specialist to a significant other at home: No Do you presently have visiting nurse or other home services: No Alcohol intake: never Comment: scheduled med Patient Tobacco Use Status: Never used Tobacco Second Hand Smoke Exposure: No Use of substances other than those prescribed or required for medical reasons: Yes Have you been hit, kicked, punched, or otherwise hurt by someone within the past year? If so, by whom?: No Advance Directives: No Advance Directives Information Provided: Yes Advance Directives on File: No Advance Directives Date on File: 08/07/20 Recently lost weight without trying: No Eating poorly because of decreased appetite: No Nutrition Risks: No Nutritional Risk Poor oral hygiene: No service: No Current occupational status: retired Meds Allergies Allergy/AdvReac Type Severity Reaction Status Date / Time penicillin V Allergy Intermediate rash Verified 08/26/23 12:49 Erythromycin Allergy Intermediate diarrhea Uncoded 08/26/23 12:49 Home Medications Medication Instructions Recorded Confirmed Last Taken Type lancets 28 gauge #100 ea 03/14/21 11/18/23 Unknown History finasteride 5 mg tablet 5 mg PO BEDTIME 11/18/23 11/18/23 Unknown History Exam Height,Weight and Vital Signs: Height 6 ft 2 in Weight 95.254 kg Assessment and Plan Assessment Anesthesia Assessment: Chart Reviewed Final Anesthetic Review Family History of Problems with Anesthesia: No History of Problems with Anesthesia: No Documented by User: Russell Wheat MD 11/23/23 12:03 ON LICENSE OF [facility] Past Medical History Medical History Psoriasis Sepsis Elevated cholesterol Anemia BPH (benign prostatic hyperplasia) Diabetes Vitamin D deficiency Neuropathy HTN (hypertension) Chronic a-fib Amputation of great toe Osteomyelitis PVD (peripheral vascular disease) Amputation of toe of left foot Pre-diabetes History of neuropathy Arrhythmia Osteomyelitis of second toe of left foot Ulcer of left second toe Amputated toe of right foot History of amputation of toe History of heart valve abnormality Family History Family History Mother CAD (coronary artery disease) Surgical History Surgical History Status post amputation of toe Hx of amputation Status post ORIF of fracture of ankle Social History Social History Household Members: Family Housing: House Are you a primary care management specialist to a significant other at home: No Do you presently have visiting nurse or other home services: No Alcohol intake: never Comment: scheduled med Patient Tobacco Use Status: Never used Tobacco Second Hand Smoke Exposure: No Use of substances other than those prescribed or required for medical reasons: Yes Have you been hit, kicked, punched, or otherwise hurt by someone within the past year? If so, by whom?: No Advance Directives: No Advance Directives Information Provided: Yes Advance Directives on File: No Advance Directives Date on File: 08/07/20 Recently lost weight without trying: No Eating poorly because of decreased appetite: No Nutrition Risks: No Nutritional Risk Poor oral hygiene: No service: No Current occupational status: retired Meds Allergies Allergy/AdvReac Type Severity Reaction Status Date / Time penicillin V Allergy Intermediate rash Verified 08/26/23 12:49 Erythromycin Allergy Intermediate diarrhea Uncoded 08/26/23 12:49 Home Medications Medication Instructions Recorded Confirmed Last Taken Type lancets 28 gauge #100 ea 03/14/21 11/18/23 Unknown History finasteride 5 mg tablet 5 mg PO BEDTIME 11/18/23 11/18/23 Unknown History Exam Airway Mallampati Class: II TM Dist: >3cm Neck ROM: Full Loose/Missing/Broken Teeth: Yes Heart: irreg irreg s1s2 Lungs: cta b/l Assessment and Plan Assessment Anesthesia Assessment: Anesthesia Plan Discussed Final Anesthetic Review NPO: Yes ASA Class: III Final Preanesthetic Review: No Changes in Pt Med Stat, Meds/Allgs Chart Reviewed, Consent Obtained/Reviewed and Anes Risks/Benef Reviewed Patient Risk: Intermediate Procedure Risk: Low Assessment/Block/Sedation in SS: Assess/Block/Sedation-SS Anesthetic Plan Anesthetic Plan: MAC: Disposition: Standard PACU
--- NOTE | 2023-11-20 08:34 | MHC.SHP ---
Pre-Procedural Eval Section A Date of Service: 11/20/23 The patient is an INPATIENT: No Changes since office visit: No Cold of Flu in the past 2 weeks, No New Medical Problems, No Changes in Medication and No Patient answered all questions The History & Physical has been completed within 30 days and I have reviewed it.: Yes Section B Chief Complaint: Age-related nuclear cataract, left eye Allergies: Allergies Allergy/AdvReac Type Severity Reaction Status Date / Time penicillin V Allergy Intermediate rash Verified 08/26/23 12:49 Erythromycin Allergy Intermediate diarrhea Uncoded 08/26/23 12:49 Plan Diagnosis/Plan: Unchanged I have reviewed the history and physical and performed a pertinent physical examination on my patient. No changes have occurred unless specified. Time Spent With Patient Time: Total time managing care of this patient today ____ minutes.
[2023-11-23] MEDS: Phenylephrine HCL 2.5% Oph SoL 2 ML BOTTLE 1 DROP EYE-LEFT ×3 (11:48→12:07)
[2023-11-23] MEDS: Lactated Ringers 500 ML 50 ML IV (11:48)
[2023-11-23] MEDS: Ketorolac Tromethamine 0.5% Op 5 ML DROPS 1 DROP EYE-LEFT ×3 (11:49→12:07)
[2023-11-23] MEDS: Cyclopentolate 1 % Ophth Sol 2 ML DRPBTL 1 DROP EYE-LEFT ×3 (11:49→12:07)
[2023-11-23] MEDS: Tropicamide 1 % Ophth Sol 3 ML BTL 1 DROP EYE-LEFT ×3 (11:49→12:07)
[2023-11-23] MEDS: Tetracaine HCl/PF 0.5% Oph Sol 4 ML DROPS 1 DROP EYE-LEFT (11:49)
[2023-11-23 12:08] VITALS: BP 154/85; PULSE 71; RESP 18; TEMP 36.4; O2SAT 95
[2023-11-23 12:29] LABS: Glucose, Whole Blood 150 mg/dL (60-115)
--- NOTE | 2023-11-23 13:02 | MHC.SHP ---
Pre-Procedural Eval Section A Date of Service: 11/23/23 The patient is an INPATIENT: No Changes since office visit: No Cold of Flu in the past 2 weeks, No New Medical Problems, No Changes in Medication and No Patient answered all questions The History & Physical has been completed within 30 days and I have reviewed it.: Yes Section B Chief Complaint: Age-related nuclear cataract, left eye Allergies: Allergies Allergy/AdvReac Type Severity Reaction Status Date / Time penicillin V Allergy Intermediate rash Verified 08/26/23 12:49 Erythromycin Allergy Intermediate diarrhea Uncoded 08/26/23 12:49 Plan Diagnosis/Plan: Unchanged I have reviewed the history and physical and performed a pertinent physical examination on my patient. No changes have occurred unless specified. Time Spent With Patient Time: Total time managing care of this patient today ____ minutes.
--- NOTE | 2023-11-23 13:02 | HO.PNOPHT ---
Ophthalmology Procedure Procedure Date of Service: 11/23/23 Ophthalmology Viscoelastic: Healgladis Duet Dual Pack Pro Ophthalmology Lenses: TECMEL [id number] (20) Procedure Notes: PREOPERATIVE DIAGNOSIS: Decreased visual acuity left eye secondary to cataract POSTOPERATIVE DIAGNOSIS: Same PROCEDURE: Left cataract extraction with intraocular lens insertion SURGEON: Bart Arambula M.D. ANESTHESIA: Topical/MAC ESTIMATED BLOOD LOSS: None COMPLICATIONS: None After obtaining informed consent, the patient was brought to the operation room suite and placed in the supine position. After adequate sedation per anesthesia, topical drops of Tetracaine were given to the left eye. The eye was then prepped and draped in the usual sterile fashion. The operating room microscope was then positioned over the operative eye and a lid speculum placed. A paracentesis was created. Viscoelastic was then instilled into the anterior chamber. A three plane incision was then created temporally, utilizing a 2.85 mm keratome. Capsulotomy forceps were then utilized to create a circular tear capsulotomy. Hydrodissection and hydrodelineation were carried out until adequate mobilization of the nucleus occurred. Phacoemulsification was then utilized to remove the dense central nucleus followed by removal of the cortical material utilizing the automated aspiration irrigation unit. Viscoat elastic was instilled into the posterior capsular bag followed by placement of a posterior chamber intraocular lens without difficulty. The residual Viscoat elastic was then removed utilizing the automated IA machine. The wound was check and found to be watertight. The patient tolerated the procedure well and the lid speculum was removed. Intracameral injection of Vigamox 0.1 mL followed by a subtenon injection of Kenalog-40 0.2 mL were administered. The patient will be seen in the a.m.
[2023-11-23 13:37] VITALS: BP 132/78; PULSE 84; RESP 16; TEMP 36.6; O2SAT 96
[2023-11-23 13:42] VITALS: BP 135/78; PULSE 79; RESP 18; TEMP 36.6; O2SAT 95
== END 2023-11-23 13:55 | disposition home or self-care (01) ==
PROVIDERS: PCP Internal Medicine; Visit Provider Ophthalmology
PROC: (CPT 66985; principal; 2023-11-23 12:10)
DX: H25.12 Age-related nuclear cataract, left eye (principal); H54.7 Unspecified visual loss; I10 Essential (primary) hypertension; H18.413 Arcus senilis, bilateral; E11.40 Type 2 diabetes mellitus with diabetic neuropathy, unspecified; E55.9 Vitamin D deficiency, unspecified; Z89.422 Acquired absence of other left toe(s); M86.8X8 Other osteomyelitis, other site; L30.9 Dermatitis, unspecified; I48.0 Paroxysmal atrial fibrillation; Z79.01 Long term (current) use of anticoagulants; Z79.899 Other long term (current) drug therapy; Z88.0 Allergy status to penicillin; Z88.1 Allergy status to other antibiotic agents
CPT/HCPCS: 66984; 82947; J2250; J3010; J3301; V2632

== ENCOUNTER 2023-12-08 14:14 | Outpatient (AMB) | payer MEDICARE, BC, SELFPAY ==
--- NOTE | 2023-12-08 15:23 | A.OFFVIS_ITS ---
Intake Intake Visit Reasons: 6m/PVR Intake Note: Patient is Present for Follow Up Urology Medication: Antibiotic Allergies: Blood Thinners: PVR: 253ml Allergies penicillin V Allergy (Intermediate, Verified 08/26/23 12:49) rash Erythromycin Allergy (Intermediate, Uncoded 08/26/23 12:49) diarrhea Medication List - Last Reconciled 12/08/23 by David Boateng MD apixaban (Eliquis) 5 mg PO BID bethanechol chloride 25 mg PO BID 90 days finasteride 5 mg PO BEDTIME 90 days lancets As directed metoprolol tartrate 50 mg PO BID 90 days terazosin 10 mg PO BEDTIME 90 days HPI HPI Comments History of Present Illness Details Shashank is a pleasant male. He is a patient of Dr. Medrano. He is seen for the following urologic conditions - urinary retention secondary to diabeti c neuropathy High PVR continues PVR today 250 Thinks he empties 8-10 oz per time Continue bethanechol Did discuss possible trial of InterStim We will talk about that again in 6 months Urinary retention Episode of retention in hospital December 2021 Had been started on Flomax Initial high residuals over 400 cc Has frequent small voids suspicious for overflow incontinence Not interested in the catheter Does not have hand mobility to perform clean intermittent catheterization Current therapy bethanechol PFSH Medical History Psoriasis Sepsis Elevated cholesterol Anemia BPH (benign prostatic hyperplasia) Diabetes Vitamin D deficiency Neuropathy HTN (hypertension) Chronic a-fib Amputation of great toe Osteomyelitis PVD (peripheral vascular disease) Amputation of toe of left foot Pre-diabetes History of neuropathy Arrhythmia Osteomyelitis of second toe of left foot Ulcer of left second toe Amputated toe of right foot History of amputation of toe History of heart valve abnormality Surgical History Status post amputation of toe Hx of amputation Status post ORIF of fracture of ankle Family History Mother CAD (coronary artery disease) Social History Household Members: Family Housing: House Are you a primary ocular care technician to a significant other at home: No Do you presently have visiting nurse or other home services: No Alcohol intake: never Comment: scheduled med Patient Tobacco Use Status: Never used Tobacco Second Hand Smoke Exposure: No Advance Directives Date on File: 08/07/20 service: No Current occupational status: retired Office Procedures Post Void Residual Post Residual Void Post Void Residual (PVR): [id number] Void Residual by ultrasound Assessment & Plan Assessment & Plan (1) Prostatitis: Code(s): N41.9 - Inflammatory disease of prostate, unspecified (2) Urinary retention with incomplete bladder emptying: Code(s): R33.9 - Retention of urine, unspecified Plan Six-month follow-up PVR Orders: Orders AMB Post Void Residual by ultrasound Today R33.9 - Retention of urine, unspecified Medications: Changed From finasteride 5 mg PO BEDTIME To finasteride 5 mg PO BEDTIME 90 tabs 1RF 90 days Refilled bethanechol chloride 25 mg PO BID 180 tabs 1RF 90 days R33.9 - Retention of urine, unspecified Patient Instructions: Imaging studies, laboratory and physical exam results were discussed and reviewed in detail. No major barriers to patient understanding were identified. An opportunity to ask questions regarding the treatment plan was provided. All questions were answered. The patient expressed understanding and agreement with the above treatment plan. The patient is aware they should contact our office by phone for worsening of their current condition or the appearance of new urologic symptoms. Compliance is encouraged with any medications and followup testing that is ordered. It is a privilege to participate in the urologic care of your patient. If you have any questions or concerns regarding treatment for the above conditions, or other urologic issues, please do not hesitate to contact me. The office telephone contact is [phone]. This note is constructed using voice recognition software. While every effort has been made to ensure accuracy dispatcher service errors may have been included. Yours sincerely, Dr David Boateng MD, [facility] - Urology Providers of Expert, Compassionate Care for the Genitourinary System Coding Level of Care Code Est Pt Level 4 (76256) Diagnoses Prostatitis N41.9 Urinary retention with incomplete bladder emptying R33.9 CPT Codes Post Residual Void - PVR CPT Code: 54567-Eeph Void Residual by ultrasound ([id number])
== END 2023-12-08 16:05 | disposition home or self-care (01) ==
PROVIDERS: PCP Internal Medicine; Visit Provider Urology
DX: N41.9 Inflammatory disease of prostate, unspecified (principal); R33.9 Retention of urine, unspecified
CPT/HCPCS: 99214

== ENCOUNTER → 2023-12-08 14:14 | Outpatient (BNVA) | payer MEDICARE, BC, SELFPAY | PROVIDERS: PCP Internal Medicine; Visit Provider Urology | DX: N41.9 Inflammatory disease of prostate, unspecified (principal); R33.9 Retention of urine, unspecified | CPT/HCPCS: 51798; 99212 ==

== ENCOUNTER 2024-01-06 08:51 | Outpatient (REF) | payer MEDICARE, BC, SELFPAY | END 2024-01-06 08:52 | disposition home or self-care (01) | LOC: HO.LNP 08:51 | PROVIDERS: Visit Provider Podiatrist | DX: Z13.89 Encounter for screening for other disorder (principal) | CPT/HCPCS: 87070; 87205 ==

== ENCOUNTER 2024-01-25 08:07 | Outpatient (RCR) | payer MEDICARE, BC, SELFPAY ==
--- NOTE | 2024-02-01 19:59 | HP_ITS ---
DATE OF SERVICE: 01/25/2024 HISTORY OF PRESENT ILLNESS: The patient is a 74-year-old male, who is seen in the office on 01/29/2024 for preop evaluation prior to a cataract surgery with Dr. Arambula is scheduled for 02/07. The patient is currently being treated for an infection on his left foot by Dr. Arnold. He is still on oral antibiotics. He has VNA care 3 days a week. He, otherwise, feels well. REVIEW OF SYSTEMS: No chest pains. No shortness of breath and a dry cough. No headaches or dizziness. No fevers or sweats. Weight has been stable. No stomach pains or heartburn. No urinary complaints. Some arthritis and joint pains. Sleep is normal. Appetite is normal. He does get seasonal allergies occasionally. He has chronic atopic dermatitis. PAST MEDICAL HISTORY: Significant for paroxysmal atrial fibrillation on Eliquis, hypertension, BPH, long-term use of anticoagulation, peripheral neuropathy, low vitamin D, psoriasis, history of the left 1st and 2nd toes and right 2nd toes amputated, anemia, vhs-gblgpad-bmbsdqasi diabetes, left foot wound, mitral valve regurg, elevated lipids, venous stasis disease. He had a TNA as 6 years old and fractured right arm as 12 years old. FAMILY HISTORY: Father at 76. Mother in her 90s from congestive heart failure. He has 1 brother with hypertension. SOCIAL HISTORY: He is retired. He lives with his brother. He does not smoke. PHYSICAL EXAMINATION: VITAL SIGNS: Temperature 97.8, pulse 90, respirations 12, pressure 130/70, weight is 209, height is 6 feet 3 inches, oxygen saturation is 95%. GENERAL: He is awake and alert, in no distress. HEENT: Clear. NECK: Supple. No lymph nodes, bruits, or masses. HEART: Sounds S1, S2. Regular rate and rhythm. LUNGS: Clear. ABDOMEN: Soft and nontender with positive bowel sounds. No HSM. EXTREMITIES: He has a dressing on his left foot. No clubbing, cyanosis, or edema on the right. NEUROLOGIC: Cranial nerves II through XII are intact. He moves all extremities normally. ALLERGIES: TO PENICILLIN. PRESENT MEDICINES: Tamsulosin 0.4 mg at bedtime, terazosin 10 mg at bedtime, metoprolol 25 mg p.o. b.i.d., and Eliquis 5 mg p.o. b.i.d. ASSESSMENT AND PLAN: He is medically stable for the proposed cataract surgery. I will be available if there are any medical issues. Handy Medrano MD FC/JONATHAN / [phone]
== END 2024-05-27 12:33 | disposition home or self-care (01) ==
LOC: HO.WCC 08:07
PROVIDERS: PCP Internal Medicine; Visit Provider Physician Assistant
DX: E11.621 Type 2 diabetes mellitus with foot ulcer (principal); L97.522 Non-pressure chronic ulcer of other part of left foot with fat layer exposed; G90.09 Other idiopathic peripheral autonomic neuropathy; I10 Essential (primary) hypertension; Z79.01 Long term (current) use of anticoagulants; Z89.412 Acquired absence of left great toe; Z89.422 Acquired absence of other left toe(s)
CPT/HCPCS: 11042; 99212

== ENCOUNTER 2024-02-05 09:11 | Outpatient (REF) | payer MEDICARE, BC, SELFPAY ==
[2024-02-05 09:37] LABS: MANUAL DIFF FLAG NO
[2024-02-05 09:50] LABS: Basophils Absolute Auto 0.1 X10*3/uL (0.0-0.2); Basophils Percent Auto 0.6 % (0-2); Eosinophils Absolute Auto 0.2 X10*3/uL (0.0-0.4); Eosinophils Percent Auto 2.6 % (0-4); Hematocrit 37.7 % (42.0-52.0); Imm Gran Abs Auto 0.02 X10*3/uL (0.00-0.03); Imm Gran Pct Auto 0.2 % (0.0-0.4); Lymphocytes Absolute Auto 1.6 X10*3/uL (1.2-4.9); Lymphocytes Percent Auto 20.4 % (20-40); Mean Corpuscular HGB Conc 34.5 g/dl (31.0-36.0); Mean Corpuscular Hemoglobin 30.7 pg (27.0-33.0); Mean Corpuscular Volume 88.9 fL (80.0-98.0); Mean Platelet Volume 8.7 fL (9.4-12.4); Monocytes Absolute Auto 0.5 X10*3/uL (0.1-1.2); Monocytes Percent Auto 6.7 % (2-11); Neutrophils Absolute Auto 5.6 x10*3/uL (2.0-8.3); Neutrophils Percent Auto 69.5 % (45-73); Platelet Count 270 X10*3/uL (160-400); Red Blood Count 4.24 X10*6/uL (4.60-5.80); Red Cell Distribution Width 13.1 % (11.0-16.0)
[2024-02-05 10:09] LABS: Estimated Average Glucose 140 mg/dL; Hemoglobin A1C 150.8169 umol/L; Hemoglobin A1c % 6.5 % (<6.0)
[2024-02-05 11:18] LABS: Alanine Aminotransferase 13 U/L (0-40); Albumin Level 3.9 g/dL (3.5-5.0); Alkaline Phosphatase 73 U/L (39-117); Anion Gap 15 (12-20); Aspartate Amino Transferase 14 U/L (5-37); Bilirubin Total 0.4 mg/dL (0.0-1.0); Blood Urea Nitrogen 23 mg/dL (9-16); Calcium 9.8 mg/dL (8.4-10.2); Carbon Dioxide 24 mmol/L (22-29); Chloride 101 mmol/L (96-108); Estimated Glomerular Filt Rate > 60; Glucose Random 257 mg/dL (60-115); Potassium 4.4 mmol/L (3.3-5.1); Sodium 136 mmol/L (135-145); Total Protein 7.3 g/dL (6.5-8.0)
[2024-02-05 11:36] LABS: Vitamin D 25-OH Total 25.8 ng/mL (>30)
[2024-02-05 13:13] LABS: Creatinine Urine 76.26 mg/dL
[2024-02-05 13:25] LABS: Microalbum/Creatinine Ratio Ur 1041.1 ug/mg cr (<30)
== END 2024-02-05 09:12 | disposition home or self-care (01) ==
LOC: HO.LAB 09:11
PROVIDERS: PCP Internal Medicine; Visit Provider Internal Medicine
DX: E11.9 Type 2 diabetes mellitus without complications (principal); I48.0 Paroxysmal atrial fibrillation; I10 Essential (primary) hypertension; N40.0 Benign prostatic hyperplasia without lower urinary tract symptoms; E55.9 Vitamin D deficiency, unspecified
CPT/HCPCS: 36415; 80053; 82043; 82306; 82570; 83036; 85025

== ENCOUNTER 2024-02-08 06:04 | Day surgery (SDC) | payer MEDICARE, BC, SELFPAY ==
[2023-11-18 09:45] VITALS: BMI 27.0
--- NOTE | 2023-11-27 09:06 | P.CONAN_ITS ---
Documented by User: Nikky Francisco NP 11/27/23 09:07 HPI - Anesthesia Eval Consult details Narrative: 73yo M for Right Cataract Extraction IOL Insertion PCP cleared Left eye 11/23/23: Fent 25, Midaz 1 Eliquis for afib PMFSH Active Problems Active Problems: All Active Problems (Updated 11/19/23 @ 06:54 by Stefany Schaefer RN) PAF (paroxysmal atrial fibrillation) (Acute) Prostatitis (Acute) Acute UTI (Acute) Rhabdomyolysis (Acute) COVID (Acute) Diabetic neuropathy associated with diabetes mellitus due to underlying condition (Acute) Urinary retention with incomplete bladder emptying (Acute) Rash of body (Acute) Status post amputation of toe (Acute) Amputation of great toe (Acute) Arrhythmia (Acute) Past Medical History Medical History Psoriasis Sepsis Elevated cholesterol Anemia BPH (benign prostatic hyperplasia) Diabetes Vitamin D deficiency Neuropathy HTN (hypertension) Chronic a-fib Amputation of great toe Osteomyelitis PVD (peripheral vascular disease) Amputation of toe of left foot Pre-diabetes History of neuropathy Arrhythmia Osteomyelitis of second toe of left foot Ulcer of left second toe Amputated toe of right foot History of amputation of toe History of heart valve abnormality Family History Family History Mother CAD (coronary artery disease) Family history of problems with anesthesia: No Surgical History Surgical History Status post amputation of toe Hx of amputation Status post ORIF of fracture of ankle History of Problems with Anesthesia: No Social History Social History Household Members: Family Housing: House Are you a primary school childcare attendant to a significant other at home: No Do you presently have visiting nurse or other home services: No Alcohol intake: never Comment: scheduled med Patient Tobacco Use Status: Never used Tobacco Second Hand Smoke Exposure: No Use of substances other than those prescribed or required for medical reasons: No Have you been hit, kicked, punched, or otherwise hurt by someone within the past year? If so, by whom?: No Advance Directives: Yes Advance Directives Information Provided: No Advance Directives on File: Yes Advance Directives Date on File: 08/07/20 Recently lost weight without trying: No Eating poorly because of decreased appetite: No Nutrition Risks: No Nutritional Risk Poor oral hygiene: No service: No Current occupational status: retired Meds Allergies Allergy/AdvReac Type Severity Reaction Status Date / Time penicillin V Allergy Intermediate rash Verified 08/26/23 12:49 Erythromycin Allergy Intermediate diarrhea Uncoded 08/26/23 12:49 Home Medications Medication Instructions Recorded Confirmed Last Taken Type lancets 28 gauge #100 ea 03/14/21 11/18/23 Unknown History finasteride 5 mg tablet 5 mg PO BEDTIME 11/18/23 11/18/23 Unknown History Exam Height,Weight and Vital Signs: Height 6 ft 2 in Weight 95.254 kg Assessment and Plan Assessment Anesthesia Assessment: Chart Reviewed Final Anesthetic Review Family History of Problems with Anesthesia: No History of Problems with Anesthesia: No Documented by User: Russell Wheat MD 11/30/23 07:03 [facility] Past Medical History Medical History Psoriasis Sepsis Elevated cholesterol Anemia BPH (benign prostatic hyperplasia) Diabetes Vitamin D deficiency Neuropathy HTN (hypertension) Chronic a-fib Amputation of great toe Osteomyelitis PVD (peripheral vascular disease) Amputation of toe of left foot Pre-diabetes History of neuropathy Arrhythmia Osteomyelitis of second toe of left foot Ulcer of left second toe Amputated toe of right foot History of amputation of toe History of heart valve abnormality Family History Family History Mother CAD (coronary artery disease) Surgical History Surgical History Status post amputation of toe Hx of amputation Status post ORIF of fracture of ankle Social History Social History Household Members: Family Housing: House Are you a primary school childcare attendant to a significant other at home: No Do you presently have visiting nurse or other home services: No Alcohol intake: never Comment: scheduled med Patient Tobacco Use Status: Never used Tobacco Second Hand Smoke Exposure: No Use of substances other than those prescribed or required for medical reasons: No Have you been hit, kicked, punched, or otherwise hurt by someone within the past year? If so, by whom?: No Advance Directives: Yes Advance Directives Information Provided: No Advance Directives on File: Yes Advance Directives Date on File: 08/07/20 Recently lost weight without trying: No Eating poorly because of decreased appetite: No Nutrition Risks: No Nutritional Risk Poor oral hygiene: No service: No Current occupational status: retired Meds Allergies Allergy/AdvReac Type Severity Reaction Status Date / Time penicillin V Allergy Intermediate rash Verified 08/26/23 12:49 Erythromycin Allergy Intermediate diarrhea Uncoded 08/26/23 12:49 Home Medications Medication Instructions Recorded Confirmed Last Taken Type lancets 28 gauge #100 ea 03/14/21 11/18/23 Unknown History finasteride 5 mg tablet 5 mg PO BEDTIME 11/18/23 11/18/23 Unknown History Exam Airway Mallampati Class: III TM Dist: >3cm Neck ROM: Full Loose/Missing/Broken Teeth: Yes Heart: irreg irreg s1s2 Lungs: cta b/l Assessment and Plan Assessment Anesthesia Assessment: Anesthesia Plan Discussed Final Anesthetic Review NPO: Yes ASA Class: III Final Preanesthetic Review: No Changes in Pt Med Stat, Meds/Allgs Chart Reviewed, Consent Obtained/Reviewed and Anes Risks/Benef Reviewed Patient Risk: Intermediate Procedure Risk: Low Assessment/Block/Sedation in SS: Assess/Block/Sedation-SS Anesthetic Plan Anesthetic Plan: MAC: Disposition: Standard PACU
[2024-02-02 09:52] VITALS: BMI 27.0
--- NOTE | 2024-02-04 13:49 | P.CONAN_ITS ---
Documented by User: Nikky Francisco NP 02/04/24 13:50 HPI - Anesthesia Eval Consult details Narrative: 74yo M for Right Cataract Extraction IOL Insertion Optimized per PCP Eliquis for PAF No previous cataract on record PMFSH Active Problems Active Problems: All Active Problems PAF (paroxysmal atrial fibrillation) (Acute) Prostatitis (Acute) Acute UTI (Acute) Rhabdomyolysis (Acute) COVID (Acute) Diabetic neuropathy associated with diabetes mellitus due to underlying condition (Acute) Urinary retention with incomplete bladder emptying (Acute) Rash of body (Acute) Status post amputation of toe (Acute) Amputation of great toe (Acute) Arrhythmia (Acute) Past Medical History Medical History Psoriasis Sepsis Elevated cholesterol Anemia BPH (benign prostatic hyperplasia) Diabetes Vitamin D deficiency Neuropathy HTN (hypertension) Chronic a-fib Amputation of great toe Osteomyelitis PVD (peripheral vascular disease) Amputation of toe of left foot Pre-diabetes History of neuropathy Arrhythmia Osteomyelitis of second toe of left foot Ulcer of left second toe Amputated toe of right foot History of heart valve abnormality Family History Family History Mother CAD (coronary artery disease) Family history of problems with anesthesia: No Surgical History Surgical History History of amputation of toe Status post amputation of toe Hx of amputation Status post ORIF of fracture of ankle History of Problems with Anesthesia: No Social History Social History Household Members: Family Housing: House Are you a primary career resource specialist to a significant other at home: No Do you presently have visiting nurse or other home services: Yes (visiting Rn) Alcohol intake: never Comment: scheduled med Patient Tobacco Use Status: Never used Tobacco Second Hand Smoke Exposure: No Use of substances other than those prescribed or required for medical reasons: No Have you been hit, kicked, punched, or otherwise hurt by someone within the past year? If so, by whom?: No Advance Directives: No Advance Directives Information Provided: Yes Advance Directives on File: Yes Advance Directives Date on File: 08/07/20 Recently lost weight without trying: No Eating poorly because of decreased appetite: No Nutrition Risks: No Nutritional Risk Poor oral hygiene: Yes (missing teeth on the lower) service: No Current occupational status: retired Meds Allergies Allergy/AdvReac Type Severity Reaction Status Date / Time penicillin V Allergy Intermediate rash Verified 02/08/24 06:31 Erythromycin Allergy Intermediate diarrhea Uncoded 02/08/24 06:31 Active Medications: Current Medications Acetaminophen (Acetaminophen 325 Mg Tablet) 650 mg PO ONCE PRN PRN Reason: Pain, Mild (Pain Scale 1-3) Home Medications ?Medication ?Instructions ?Recorded ?Confirmed ?Last Taken ?Type lancets 28 gauge #100 ea 03/14/21 12/08/23 Unknown History Exam Height,Weight and Vital Signs: Height 6 ft 2 in Weight 95.254 kg Assessment and Plan Assessment Anesthesia Assessment: Chart Reviewed Final Anesthetic Review Family History of Problems with Anesthesia: No History of Problems with Anesthesia: No Documented by User: Nakita Keys MD 02/08/24 07:53 PMFSH Past Medical History Medical History Psoriasis Sepsis Elevated cholesterol Anemia BPH (benign prostatic hyperplasia) Diabetes Vitamin D deficiency Neuropathy HTN (hypertension) Chronic a-fib Amputation of great toe Osteomyelitis PVD (peripheral vascular disease) Amputation of toe of left foot Pre-diabetes History of neuropathy Arrhythmia Osteomyelitis of second toe of left foot Ulcer of left second toe Amputated toe of right foot History of heart valve abnormality Family History Family History Mother CAD (coronary artery disease) Surgical History Surgical History History of amputation of toe Status post amputation of toe Hx of amputation Status post ORIF of fracture of ankle Social History Social History Household Members: Family Housing: House Are you a primary career resource specialist to a significant other at home: No Do you presently have visiting nurse or other home services: Yes (visiting Rn) Alcohol intake: never Comment: scheduled med Patient Tobacco Use Status: Never used Tobacco Second Hand Smoke Exposure: No Use of substances other than those prescribed or required for medical reasons: No Have you been hit, kicked, punched, or otherwise hurt by someone within the past year? If so, by whom?: No Advance Directives: No Advance Directives Information Provided: Yes Advance Directives on File: Yes Advance Directives Date on File: 08/07/20 Recently lost weight without trying: No Eating poorly because of decreased appetite: No Nutrition Risks: No Nutritional Risk Poor oral hygiene: Yes (missing teeth on the lower) service: No Current occupational status: retired Meds Allergies Allergy/AdvReac Type Severity Reaction Status Date / Time penicillin V Allergy Intermediate rash Verified 02/08/24 06:31 Erythromycin Allergy Intermediate diarrhea Uncoded 02/08/24 06:31 Home Medications ?Medication ?Instructions ?Recorded ?Confirmed ?Last Taken ?Type lancets 28 gauge #100 ea 03/14/21 12/08/23 Unknown History Exam Airway Mallampati Class: II TM Dist: >3cm Heart: rrr Lungs: cta Assessment and Plan Assessment Anesthesia Assessment: Anesthesia Plan Discussed Final Anesthetic Review NPO: Yes ASA Class: III Final Preanesthetic Review: No Changes in Pt Med Stat, Meds/Allgs Chart Reviewed, Consent Obtained/Reviewed and Anes Risks/Benef Reviewed Patient Risk: Intermediate Procedure Risk: Low Anesthetic Plan Anesthetic Plan: MAC: Disposition: Standard PACU
[2024-02-08] MEDS: Tetracaine HCl/PF 0.5% Oph Sol 4 ML DROPS 1 DROP EYE-RIGHT (06:35)
[2024-02-08] MEDS: Cyclopentolate 1 % Ophth Sol 2 ML DRPBTL 1 DROP EYE-RIGHT ×3 (06:38→07:02)
[2024-02-08] MEDS: Tropicamide 1 % Ophth Sol 3 ML BTL 1 DROP EYE-RIGHT ×3 (06:41→07:05)
[2024-02-08] MEDS: Lactated Ringers 500 ML 50 ML IV (06:44)
[2024-02-08] MEDS: Ketorolac Tromethamine 0.5% Op 5 ML DROPS 1 DROP EYE-RIGHT ×3 (06:44→07:08)
[2024-02-08] MEDS: Phenylephrine HCL 2.5% Oph SoL 2 ML BOTTLE 1 DROP EYE-RIGHT ×3 (06:47→07:11)
[2024-02-08 06:48] LABS: Glucose, Whole Blood 171 mg/dL (60-115)
[2024-02-08 06:50] VITALS: BP 164/76; PULSE 107; RESP 16; TEMP 35.7; O2SAT 98; BMI 26.7
--- NOTE | 2024-02-08 07:28 | MHC.SHP ---
Pre-Procedural Eval Section A - 24 Hr Update-Section A only Date of Service: 02/08/24 The patient is an INPATIENT: No Changes since office visit: No Cold of Flu in the past 2 weeks, No New Medical Problems, No Changes in Medication and No Patient answered all questions The patient has been examined within 24 hours of the surgical procedure. The History & Physical has been completed within 30 days and I have reviewed it.: Yes Section B - Complete if H&P > 30 days Chief Complaint: Age-related nuclear cataract, right eye Allergies: Allergies Allergy/AdvReac Type Severity Reaction Status Date / Time penicillin V Allergy Intermediate rash Verified 02/08/24 06:31 Erythromycin Allergy Intermediate diarrhea Uncoded 02/08/24 06:31 Plan Diagnosis/Plan: Unchanged I have reviewed the history and physical and performed a pertinent physical examination on my patient. No changes have occurred unless specified. Time Spent With Patient Time: Total time managing care of this patient today ____ minutes.
--- NOTE | 2024-02-08 07:29 | HO.PNOPHT ---
Ophthalmology Procedure Procedure Date of Service: 02/08/24 Ophthalmology Viscoelastic: Healgladis Duet Dual Pack Pro Ophthalmology Lenses: TECNIS [id number] (19.5) Procedure Notes: PREOPERATIVE DIAGNOSIS: Decreased visual acuity right eye secondary to cataract POSTOPERATIVE DIAGNOSIS: Same PROCEDURE: Right cataract extraction with intraocular lens insertion SURGEON: Bart Arambula M.D. ANESTHESIA: Topical/MAC ESTIMATED BLOOD LOSS: None COMPLICATIONS: None After obtaining informed consent, the patient was brought to the operating room suite and placed in the supine position. After adequate sedation per anesthesia, topical drops of Tetracaine were given to the right eye. The eye was then prepped and draped in the usual sterile fashion. The operating room microscope was then positioned over the operative eye and a lid speculum placed. A paracentesis was created. Viscoelastic was then instilled into the anterior chamber. A three plane incision was then created temporally, utilizing a 2.85 mm keratome. Capsulotomy forceps were then utilized to create a circular tear capsulotomy. Hydrodissection and hydrodelineation were carried out until adequate mobilization of the nucleus occurred. Phacoemulsification was then utilized to remove the dense central nucleus followed by removal of the cortical material utilizing the automated aspiration irrigation unit. Viscoelastic was instilled into the posterior capsular bag followed by placement of a posterior chamber intraocular lens without difficulty. The residual Viscoelastic was then removed utilizing the automated IA machine. The wound was checked and found to be watertight. The patient tolerated the procedure well and the lid speculum was removed. Intracameral injection of Vigamox 0.1 mL followed by a subtenon injection of Kenalog-40 0.2 mL were administered. The patient will be seen in the a.m.
[2024-02-08 08:18] VITALS: BP 139/79; PULSE 107; RESP 18; TEMP 36.1; O2SAT 96
== END 2024-02-08 08:28 | disposition home or self-care (01) ==
PROVIDERS: PCP Internal Medicine; Visit Provider Ophthalmology
PROC: (CPT 66985; principal; 2024-02-08 07:30)
DX: H25.11 Age-related nuclear cataract, right eye (principal); H54.7 Unspecified visual loss; Z96.1 Presence of intraocular lens; I10 Essential (primary) hypertension; E11.9 Type 2 diabetes mellitus without complications; I48.0 Paroxysmal atrial fibrillation; Z89.421 Acquired absence of other right toe(s); Z89.422 Acquired absence of other left toe(s); Z79.01 Long term (current) use of anticoagulants; Z79.899 Other long term (current) drug therapy; Z88.0 Allergy status to penicillin; Z88.1 Allergy status to other antibiotic agents
CPT/HCPCS: 66984; 82947; J2250; J3010; J3301; V2632

== ENCOUNTER 2024-03-03 17:22 | Inpatient (IN) | payer MEDICARE, BC, SELFPAY ==
--- NOTE | ~2024-03-03 | CT_ITS ---
EXAMINATION: CT SCAN OF THE LEFT FOOT WITH CONTRAST CLINICAL INFORMATION: Foot callus, evaluate for osteomyelitis. COMPARISON: X-ray of the left foot March 2024. TECHNIQUE: CT scan of the left lower extremity is performed with contrast. 85 cc of contrast given intravenously. Reconstruction imaging performed at the acquisition workstation. This CT examination was performed using dose optimization techniques as appropriate, variously including the following: *Automated exposure control *Adjustment of mA and/or kV according to patient size (this includes techniques or standardized protocols for targeted exams where dose is matched to indication/reason for exam; i.e. extremities or head) *Use of iterative reconstruction technique FINDINGS There is some irregularity of the plantar medial aspect of the foot at the level of the 1st tarsometatarsal joint. There is some increased density in the plantar subcutaneous soft tissues, compatible with edema and/or cellulitis. No focal fluid collection/abscess detected. I do not see a sinus tract. There is no underlying bone erosion or destruction. ADDITIONAL FINDINGS: Postoperative changes with amputation distal to level of the head of the 1st metatarsal and head of the 3rd metatarsal are unchanged. There is osteoarthritis of the 1st tarsometatarsal joint with marginal osteophytes and subchondral cystic change, and overall [id number] arthrosis. Talonavicular joint: There is mild arthrosis with marginal osteophytes and subchondral cystic change. Talocrural joint: There is hmar-[id number]-[id number] osteoarthritis with marginal osteophytes and subchondral cystic change. There is some irregularity of the tibial articular surface laterally, likely sequela of old fracture. Postop changes in the distal fibula with plate and screw fixation noted and some heterotopic ossification extending along the syndesmosis. There is atrophy and fatty infiltration of the abductor digiti minimi muscle and flexor digitorum brevis. CT/CT foot LT w IV con IMPRESSION: 1. Findings compatible with cellulitis in the plantar medial aspect of the foot at the level of the 1st tarsometatarsal joint. There is no underlying bone erosion or destruction to suggest osteomyelitis. 2. Postoperative changes with amputation distal to the level of the head of the 1st metatarsal and head of the 3rd metatarsal. Additional postoperative and posttraumatic changes in the distal fibula and tibia. 3. 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 4. Atrophy and fatty infiltration of the abductor digiti minimi muscle and flexor digitorum brevis.
--- NOTE | ~2024-03-03 | XR_ITS ---
EXAMINATION: XR CHEST CLINICAL INFORMATION: Cough COMPARISON: 07/10/2022 TECHNIQUE: 2 views of the chest were obtained. FINDINGS: Lungs are well expanded. Old thin linear opacity of scarring in the lingula. There appears to be minimal linear opacity of atelectasis in the inferior ligula adjacent to the paracardiac fat pad. No airspace disease or pleural effusion. The hazy opacity at lung bases seen on the frontal radiograph appears to be due to the soft tissues of the chest wall. Cardiac silhouette has normal size and contour. The pulmonary vascular pattern is normal. No acute osseous abnormality. XR/XR chest 2V IMPRESSION: No radiographic evidence of pneumonia. There are no acute/significant findings compared to the prior exam from 07/10/2022.
--- NOTE | ~2024-03-03 | CT_ITS ---
EXAMINATION: CT ABDOMEN AND PELVIS WITH CONTRAST CLINICAL INFORMATION: Fever, tachycardia and vomiting COMPARISON: None available. TECHNIQUE: Multidetector volumetric images were obtained from the superior aspect of the liver through the pubic symphysis following administration 85 mL of Omnipaque 350 intravenous contrast. Sagittal and coronal reformatted images were obtained on the technologist's workstation. Oral contrast: Yes This CT examination was performed using dose optimization techniques as appropriate, variously including the following: *Automated exposure control *Adjustment of mA and/or kV according to patient size (this includes techniques or standardized protocols for targeted exams where dose is matched to indication/reason for exam; i.e. extremities or head) *Use of iterative reconstruction technique DLP: 1223 mGy-cm FINDINGS: Limited due to motion. LUNG BASES: The visualized lung bases are unremarkable. LIVER, GALLBLADDER, AND BILIARY TREE: Fatty liver. Small gallstones. No biliary duct dilatation. No focal liver lesion. PANCREAS: Unremarkable. SPLEEN: Unremarkable. ADRENAL GLANDS: Unremarkable. KIDNEYS AND URETERS: Mild bilateral hydronephrosis and ureteral dilatation. No stone. BLADDER: Bladder is well distended. Bladder wall appears diffusely thickened and trabeculated. Findings question suggestive of the bladder outline obstruction. GASTROINTESTINAL TRACT: Constipation. Small and large bowel otherwise normal. The appendix is normal. ABDOMINAL WALL: No significant hernia is appreciated. LYMPH NODES: Normal. VASCULAR: Unremarkable. PELVIC VISCERA: Unremarkable. OSSEOUS STRUCTURES: Degenerative changes of the spine and hip joints. CT/CT abdomen pelvis w IV con IMPRESSION: Mild bilateral hydronephrosis and ureteral dilatation. Thick-walled trabeculated bladder suggestive of bladder outlet obstruction. Mild fatty infiltration of the liver. Small gallstones in the gallbladder. Constipation. Fleischner guidelines were followed.
--- NOTE | ~2024-03-03 | XR_ITS ---
EXAMINATION: XR FOOT, LEFT CLINICAL INFORMATION: Plantar foot wound. Osteomyelitis? COMPARISON: 01/13/2022 TECHNIQUE: 3 views of the left foot. FINDINGS: Old healed fracture of the distal fibula with intact lateral fixation plate and fixation screws in place. There appears to be a chronic pes planus and hindfoot valgus configuration. Prior amputation of the 1st and 3rd toes through the region of the metatarsophalangeal joints. The 2nd toe has been amputated through the region of the base of the middle phalanx. The residual bones of the forefoot are intact. No erosions or periostitis. No radiographic evidence of osteomyelitis. There is dorsal osteophyte formation at the first/second tarsometatarsal joints. A bandage is seen at the plantar aspect of the foot. No soft tissue gas or radiopaque foreign body in this region. XR/XR foot LT min 3V IMPRESSION: No acute osseous abnormality in the visualized ankle or foot compared to 01/13/2022. No evidence of osteomyelitis.
[2024-03-03 17:38] VITALS: BP 172/86; PULSE 122; RESP 18; TEMP 39.2; O2SAT 96; BMI 27.3
--- NOTE | 2024-03-03 17:53 | ED_ITS ---
HPI - General Adult General Chief complaint: Weakness Stated complaint: fever Time Seen by Provider: 03/03/24 17:59 Source: patient and EMS Mode of arrival: EMS Limitations: no limitations History of Present Illness HPI narrative: Patient is a 74-year-old male with past medical history of atrial fibrillation on Eliquis, type 2 diabetes with neuropathy, urinary retention, reported history of urosepsis approximately 2 years ago presenting to emergency department for evaluation of weakness and fatigue since this morning and fever. He reports he was feeling well prior to today. He went out shopping with his brother, and fell increasingly more tired, then was noted to be febrile. When asked to review symptoms he does endorse having a nonproductive cough recently which his brother has been experiencing as well. During evaluation he is noted to have a wound to his left foot, which he states he is currently being treated by our wound center and reports currently being on antibiotics for this, but by his account ?things have been healing fine?. Denies dizziness, lightheadedness, headache, neck pain, neck stiffness, chest pain, shortness of breath, difficulty breathing, nausea, vomiting, diarrhea, genitourinary symptoms, numbness or tingling of his extremities, pain to the left foot Related Data Home Medications ?Medication ?Instructions ?Recorded ?Confirmed lancets 28 gauge #100 ea 03/14/21 12/08/23 Previous Rx's ?Medication ?Instructions ?Recorded terazosin 10 mg capsule 10 mg PO BEDTIME 90 days #90 caps 04/02/23 bethanechol chloride 25 mg tablet 25 mg PO BID 90 days #180 tabs 12/08/23 finasteride 5 mg tablet 5 mg PO BEDTIME 90 days #90 tabs 12/08/23 metoprolol tartrate 50 mg tablet 50 mg PO BID 90 days #180 tabs 02/08/24 apixaban 5 mg tablet (Eliquis) 5 mg PO BID #180 tabs 02/16/24 Allergies Allergy/AdvReac Type Severity Reaction Status Date / Time penicillin V Allergy Intermediate rash Verified 03/03/24 17:41 amoxicillin Allergy Unknown Verified 03/03/24 17:41 Erythromycin Allergy Intermediate diarrhea Uncoded 02/08/24 06:31 Review of Systems 2 Review of Systems: Yes all other systems are reviewed and are negative PMFSH Past Medical History Attestation statement: The following information was validated with the patient. Source: old records reviewed Medical History Psoriasis Sepsis Elevated cholesterol Anemia BPH (benign prostatic hyperplasia) Diabetes Vitamin D deficiency Neuropathy HTN (hypertension) Chronic a-fib Amputation of great toe Osteomyelitis PVD (peripheral vascular disease) Amputation of toe of left foot Pre-diabetes History of neuropathy Arrhythmia Osteomyelitis of second toe of left foot Ulcer of left second toe Amputated toe of right foot History of heart valve abnormality Surgical History History of amputation of toe Status post amputation of toe Hx of amputation Status post ORIF of fracture of ankle Family History Family History Mother CAD (coronary artery disease) Social History Social History Household Members: Family Housing: House Are you a primary health care facility administrator to a significant other at home: No Do you presently have visiting nurse or other home services: Yes (visiting Rn) Alcohol intake: never Comment: scheduled med Patient Tobacco Use Status: Never used Tobacco Second Hand Smoke Exposure: No Advance Directives: Yes Advance Directives Information Provided: No Advance Directives on File: No Advance Directives Date on File: 08/07/20 Do you have a plan to hurt others: No Plan service: No Current occupational status: retired Physical Exam ED Vital Signs: Vital Signs - 24 hr 03/03/24 17:38 03/03/24 18:00 03/03/24 18:00 Temperature 102.5 F H Pulse Rate 122 H 115 H Pulse Rate [Monitor] 117 H Respiratory Rate 18 22 H Blood Pressure 172/86 H Pulse Oximetry 96 Oxygen Delivery Method Room Air Room Air 03/03/24 19:17 03/03/24 21:26 03/03/24 23:37 Temperature 100.7 F H 101.5 F H Pulse Rate 106 H 155 H 125 H Pulse Rate [Monitor] Respiratory Rate 20 Blood Pressure 124/55 L Pulse Oximetry 95 Oxygen Delivery Method Room Air 03/04/24 00:00 Temperature 101.3 F H Pulse Rate 113 H Pulse Rate [Monitor] Respiratory Rate 22 H Blood Pressure 119/66 Pulse Oximetry 94 Oxygen Delivery Method Room Air BMI result Body Mass Index 27.3 Appearance: Alert.?Oriented to person, place and time. No acute distress.?Normal affect. Eyes: Pupils equal, round and reactive to light.? ENT: Pharynx normal.?? Neck: Normal inspection.? Neck supple.?? CVS: Heart sounds normal. Normal heart rate and rhythm.? Pulses normal.?? Respiratory: No respiratory distress.? Lung sounds clear to auscultation bilaterally?? Abdomen: Soft and non-tender. Normoactive bowel sounds. Skin: Skin warm and dry.? Normal skin color.? ? Extremities: No lower extremity edema.? No calf TTP. Neuro: Moves all extremities spontaneously. Sensation intact bilaterally. Ambulates with normal steady gait. Course Course Course Narrative: CXR is without acute cardiopulmonary abnormality, XR left foot is without evidence of acute osseous abnormality to suggest osteomyelitis, surrounding erythema is concerning for local wound infection. Urinalysis pending at this time. Viral panel was negative. Reevaluation(s) Reevaluation #1: Advised by nursing staff afebrile, tachy 150s, 4 hours post previous administration will provide additional acetaminophen 650 mg, and 1 L normal saline IV fluid urinalysis pending. Time: 21:41 Reevaluation #2: Nursing staff has advised me that patient threw up almost immediately after taking the 2nd dose of acetaminophen orally. Decision made at this time to have acetaminophen administered via rectal suppository, Zofran IV for vomiting. Urinalysis with microscopic hematuria, 2+ leukocyte esterase and greater than 50 WBC, no urine bacteria or squamous epithelial cells are seen.. CT of the abdomen and pelvis is pending. Time: 22:03 Reevaluation #3: CT of the abdomen pelvis reveals mild bilateral hydronephrosis and ureteral dilation with thickened bladder wall, plan for admission to service, suspect urosepsis. Consulted with Urology, recommendations for Davis catheter insertion. Admitted to medicine service, spoke with hospitalist Dr. Bandar Singh Time: 01:55 Medications Administered Generic Name Dose Route Start Last Admin Trade Name Freq PRN Reason Stop Dose Admin Vancomycin HCl 2,000 mg in 500 mls @ 250 mls/hr 03/04/24 00:30 03/04/24 01:48 Vancomycin/Ns IV 03/04/24 02:29 250 mls/hr ONCE ONE Administration Discontinued Medications Generic Name Dose Route Start Last Admin Trade Name Linda PRN Reason Stop Dose Admin Acetaminophen 975 mg 03/03/24 17:47 03/03/24 17:58 Acetaminophen 325 Mg Tablet PO 03/03/24 17:48 975 mg ONCE ONE Administration Acetaminophen 650 mg 03/03/24 21:28 03/03/24 21:46 Acetaminophen 325 Mg Tablet PO 03/03/24 21:29 650 mg ONCE ONE Administration Acetaminophen 650 mg 03/03/24 22:02 03/03/24 22:14 Acetaminophen Supp 650 Mg Supp.Rect LA 03/03/24 22:03 650 mg ONCE ONE Administration Ceftriaxone Sodium 2 gm/ 50 mls @ 100 mls/hr 03/03/24 17:47 03/03/24 18:27 Sodium Chloride IV 03/03/24 18:16 Infused ONCE ONE Infusion Sodium Chloride 1,000 mls @ 999 mls/hr 03/03/24 18:00 03/03/24 19:15 Ns IV 03/03/24 19:00 Infused .Q1H1M CODY Infusion Sodium Chloride 1,000 mls @ 999 mls/hr 03/03/24 21:30 03/03/24 21:35 Ns IV 03/03/24 22:30 999 mls/hr .Q1H1M CODY Administration Sodium Chloride 1,000 mls @ 999 mls/hr 03/03/24 23:45 03/03/24 23:46 Ns IV 03/04/24 00:45 999 mls/hr .Q1H1M CODY Administration Ibuprofen 600 mg 03/04/24 00:16 03/04/24 01:48 Ibuprofen 600 Mg Tablet PO 03/04/24 00:17 600 mg ONCE STA Administration Iohexol 85 ml 03/03/24 22:31 03/03/24 22:32 Iohexol 350 Mg/Ml 100 Ml Infus..Btl IV 03/03/24 22:32 85 ml ONCE ONE Administration Metoprolol Tartrate 2.5 mg 03/03/24 23:37 03/03/24 23:45 Metoprolol Tartrate 5 Mg/5 Ml Vial IVPUSH 03/03/24 23:38 2.5 mg ONCE ONE Administration Protocol Ondansetron HCl 4 mg 03/03/24 22:03 03/03/24 22:14 Ondansetron Hcl 4 Mg/2 Ml Vial IVPUSH 03/03/24 22:04 4 mg ONCE ONE Administration Medical Decision Making Medical Decision Making MDM Narrative: Patient is a 74-year-old male with past medical history of atrial fibrillation on Eliquis, type 2 diabetes with neuropathy, urinary retention, anemia, hyperlipidemia, BPH, hypertension, amputation to left 1st and 2nd digit secondary to osteomyelitis, reported history of urosepsis approximately 2 years ago presenting to emergency department for evaluation of weakness and fatigue since this morning and fever. Review of symptoms he does endorse nonproductive cough, and is found to have a chronic wound to the plantar aspect of the left foot as her PE portion of this note, there is no active drainage, however there is surrounding erythema. Extremities neurovascularly intact distally. By his account he is prescribed oral antibiotics but does not know the name, on review of pharmacy records last indicated prescription for antibiotics was clindamycin for a 10 day supply 01/06/2024. Sepsis alert was called, at this time no hypotension, or signs of severe sepsis/organ dysfunction, patient received 1 L normal saline IV fluid, acetaminophen for hypothermia, and cover with ceftriaxone for possible respiratory etiology versus osteomyelitis. Differential Diagnosis Differential Diagnoses: The differential diagnosis associated with the presentation includes (Viral syndrome, pneumonia, osteomyelitis, sepsis) Admission/Observation Consideration of admission/observation: Escalation of care including admission/observation considered (See narrative above in course narrative for further detail) Consult Healthcare Provider Management of the patient was discussed with: Hospitalist (See course narrative) and Manager Retail (See course narrative) Lab Data [facility] Lab Attestation statement: I reviewed the patient's lab results. (See course narrative) 03/03/24 17:55 03/03/24 17:55 Labs: Lab Results 03/03/24 03/03/24 03/03/24 Range/Units 17:55 17:59 21:41 WBC 8.9 (4.8-10.8) X10*3/uL RBC 4.05 L (4.60-5.80) X10*6/uL Hgb 12.5 L (14.0-18.0) g/dl Hct 35.1 L (42.0-52.0) % MCV 86.7 (80.0-98.0) fL MCH 30.9 (27.0-33.0) pg MCHC 35.6 (31.0-36.0) g/dl RDW 13.1 (11.0-16.0) % Plt Count 214 (160-400) X10*3/uL MPV 9.0 L (9.4-12.4) fL Immature Gran % (Auto) 0.6 H (0.0-0.4) % Neut % (Auto) 85.3 H (45-73) % Lymph % (Auto) 7.5 L (20-40) % [place] % (Auto) 6.2 (2-11) % Eos % (Auto) 0.1 (0-4) % Baso % (Auto) 0.3 (0-2) % Lymph # (Auto) 0.7 L (1.2-4.9) X10*3/uL [place] # (Auto) 0.6 (0.1-1.2) X10*3/uL Eos # (Auto) 0.0 (0.0-0.4) X10*3/uL Baso # (Auto) 0.0 (0.0-0.2) X10*3/uL Abs Immat Gran (auto) 0.05 H (0.00-0.03) X10*3/uL Absolute Neuts (auto) 7.6 (2.0-8.3) x10*3/uL Absolute Nucleated RBC 0.000 (0.0-0.012) X10*3/uL Nucleated RBC % (auto) 0.0 (0.0-0.2) /100WBC PT 13.2 (11.1-13.3) SEC INR 1.1 (0.9-1.1) Sodium 132 L (135-145) mmol/L Potassium 4.3 (3.3-5.1) mmol/L Chloride 100 (96-108) mmol/L Carbon Dioxide 19 L (22-29) mmol/L Anion Gap 17 (12-20) BUN 26 H (9-16) mg/dL Creatinine 1.12 (0.5-1.4) mg/dL Estim Creat Clear Calc 66.3 Estimated GFR > 60 Random Glucose 187 H (60-115) mg/dL Lactic Acid 2.0 (0.5-2.0) mmol/L Calcium 10.1 (8.4-10.2) mg/dL Magnesium 1.6 (1.6-2.6) mg/dL Total Bilirubin 0.7 (0.0-1.0) mg/dL AST 16 (5-37) U/L ALT 13 (0-40) U/L Alkaline Phosphatase 64 (39-117) U/L C-Reactive Protein 3.07 H (< or = 0.50) mg/dL B-Natriuretic Peptide 53 (<100) pg/mL Total Protein 7.1 (6.5-8.0) g/dL Albumin 3.9 (3.5-5.0) g/dL Urine Color Yellow Urine Appearance Cloudy Urine pH 6.0 (5.0-9.0) Ur Specific [place] 1.020 (1.005-1.025) Urine Protein 300 (3+) H (Neg-Trace) mg/dL Urine Glucose (UA) 250 H (Negative) mg/dL Urine Ketones Negative (Negative) mg/dL Urine Blood Large (3+) H (Negative) Urine Nitrite Negative (Negative) Ur Leukocyte Esterase Moderate (2+) H (Negative) Urine RBC >20 H (0-2) /HPF Urine WBC >50 H (0-5) /HPF Ur Squamous Epith Cells 0-2 (0-2) /HPF Urine Bacteria None Seen (None Seen) Hyaline Casts 0-2 (0-2) /LPF Influenza Type A (PCR) NEGATIVE (Negative) Influenza Type B (PCR) NEGATIVE (Negative) RSV RNA Qual (PCR) NEGATIVE (Negative) SARS-CoV-2 RNA (RT-PCR) NEGATIVE (Negative) Independent Interpretation I performed an independent interpretation of an: Plain X-Ray (No consolidation or infiltrate on CXR, no acute osseous abnormality or fracture in XR foot) Radiology Impression Discussion of test interpretation with radiology: I have reviewed the radiologist's reading. Radiologist Impression: XR/XR foot LT min 3V IMPRESSION: No acute osseous abnormality in the visualized ankle or foot compared to 01/13/2022. No evidence of osteomyelitis. XR/XR chest 2V IMPRESSION: No radiographic evidence of pneumonia. There are no acute/significant findings compared to the prior exam from 07/10/2022. CT/CT abdomen pelvis w IV con IMPRESSION: Mild bilateral hydronephrosis and ureteral dilatation. Thick-walled trabeculated bladder suggestive of bladder outlet obstruction. Mild fatty infiltration of the liver. Small gallstones in the gallbladder. Constipation. Independent Historian Clinical information obtained from an independent historian. History obtained from or confirmed by: EMS External Record Review External record reviewed: Inpatient record and Outpatient record Prescription Management I considered prescription management with: Antibiotic Critical Care Time Critical Care Time Critical Care Time: Yes Total Critical Care Time: 60 Attestation: I personally attest to this critical care time spent taking care of the patient exclusive of all other billable procedures was approximately 60 minutes including initial evaluation of patient, ordering tests, x-ray interpretation, EKG interpretation, IV metoprolol, medical consultation, documentation, re- evaluation. Discharge Plan Discharge Clinical Impression: Acute UTI, Bladder outlet obstruction, Bilateral hydronephrosis, Sepsis, Hyponatremia
[2024-03-03] MEDS: 0.9 % Sodium Chloride 1,000 ML 999 ML IV ×3 (17:54→23:46)
[2024-03-03] MEDS: cefTRIAXone sodium 2 GM in 0.9 % Sodium Chloride 50 ML IV (17:57)
[2024-03-03] MEDS: Acetaminophen 325 MG TABLET 975 MG PO (17:58)
[2024-03-03 18:00] VITALS: PULSE 115; PULSE 117; RESP 22
[2024-03-03 18:05] LABS: MANUAL DIFF FLAG NO
--- NOTE | 2024-03-03 18:07 | PC.NURSE ---
Pt arrived via EMS from home, pt reporting weakness starting today after shopping with his brother. Pt warm to touch, 102/5f temp rectally, pt denies SOB/CP/n/v/d. Reporting cold like symptoms recently. Pt given medications per DEC. Sepsis protocol ordered. Pt is able to speak in full sentences at this time. PORTABLE MACHINE CUTTER at bedside to assess patient, wound noted on Left foot, undressed and redressed at this time mild redness noted around wound scab. Pt brother at bedside. Condom cath placed to collect urine at this time. Pt remains tachy on monitor 120-125 denies any CP/palpitations.
[2024-03-03 18:08] LABS: Basophils Percent Auto 0.3 % (0-2); Eosinophils Percent Auto 0.1 % (0-4); Hematocrit 35.1 % (42.0-52.0); Hemoglobin 12.5 g/dl (14.0-18.0); Imm Gran Abs Auto 0.05 X10*3/uL (0.00-0.03); Imm Gran Pct Auto 0.6 % (0.0-0.4); Lymphocytes Absolute Auto 0.7 X10*3/uL (1.2-4.9); Lymphocytes Percent Auto 7.5 % (20-40); Mean Corpuscular HGB Conc 35.6 g/dl (31.0-36.0); Mean Corpuscular Hemoglobin 30.9 pg (27.0-33.0); Mean Corpuscular Volume 86.7 fL (80.0-98.0); Monocytes Absolute Auto 0.6 X10*3/uL (0.1-1.2); Monocytes Percent Auto 6.2 % (2-11); Neutrophils Absolute Auto 7.6 x10*3/uL (2.0-8.3); Neutrophils Percent Auto 85.3 % (45-73); Platelet Count 214 X10*3/uL (160-400); Red Blood Count 4.05 X10*6/uL (4.60-5.80); Red Cell Distribution Width 13.1 % (11.0-16.0); White Blood Count 8.9 X10*3/uL (4.8-10.8)
[2024-03-03 18:17] LABS: INTERNATIONAL NORM RATIO 1.1 (0.9-1.1); Prothrombin Time 13.2 SEC (11.1-13.3)
[2024-03-03 18:26] LABS: Alanine Aminotransferase 13 U/L (0-40); Albumin Level 3.9 g/dL (3.5-5.0); Alkaline Phosphatase 64 U/L (39-117); Anion Gap 17 (12-20); Aspartate Amino Transferase 16 U/L (5-37); Bilirubin Total 0.7 mg/dL (0.0-1.0); Blood Urea Nitrogen 26 mg/dL (9-16); Calcium 10.1 mg/dL (8.4-10.2); Carbon Dioxide 19 mmol/L (22-29); Chloride 100 mmol/L (96-108); Creatinine Clr Calc Pharmacy 66.3; Estimated Glomerular Filt Rate > 60; Glucose Random 187 mg/dL (60-115); Magnesium 1.6 mg/dL (1.6-2.6); Potassium 4.3 mmol/L (3.3-5.1); Sodium 132 mmol/L (135-145); Total Protein 7.1 g/dL (6.5-8.0)
[2024-03-03 18:33] LABS: B Type Natriuretic Peptide 53 pg/mL (<100)
[2024-03-03 18:48] LABS: Influenza A PCR NEGATIVE (Negative); Influenza B PCR NEGATIVE (Negative); Resp Syncy Virus RNA Qual PCR NEGATIVE (Negative); SARS COV2 PCR INHOUSE NEGATIVE (Negative)
[2024-03-03 19:17] VITALS: BP 124/55; PULSE 106; RESP 20; TEMP 38.2; O2SAT 95
[2024-03-03 21:26] VITALS: PULSE 155; TEMP 38.6
[2024-03-03 21:40] VITALS: BP 181/86; PULSE 147; RESP 27; TEMP 38.6; O2SAT 92
[2024-03-03] MEDS: Acetaminophen 325 MG TABLET 650 MG PO (21:46)
[2024-03-03 21:49] LABS: Appearance Urine Cloudy; Color Urine Yellow; Glucose Urine UA 250 mg/dL (Negative); Leukocyte Esterase Urine Moderate (2+) (Negative); Nitrite Urine Negative (Negative); UMIC TRIGGER UACC YES; Urine Blood Large (3+) (Negative); Urine Ketones Negative (Negative); Urine Protein 300 (3+) mg/dL (Neg-Trace)
[2024-03-03 22:13] LABS: Bacteria Urine None Seen (None Seen); Hyaline Casts Urine 0-2 /LPF (0-2); RBC Urine >20 /HPF (0-2); Squamous Epithelial Cell Urine 0-2 /HPF (0-2); UACC Culture Trigger YES; WBC Urine >50 /HPF (0-5)
[2024-03-03] MEDS: Acetaminophen Supp 650 MG SUPP.RECT PR (22:14)
[2024-03-03] MEDS: ondansetron HCL 4 MG/2 ML VIAL IVPUSH (22:14)
--- NOTE | 2024-03-03 22:28 | ECG_ITS ---
Test Reason : WEAKNESS Blood Pressure : / mmHG Vent. Rate : 121 BPM Atrial Rate : 121 BPM P-R Int : 170 ms QRS Dur : 086 ms QT Int : 308 ms P-R-T Axes : 028 017 067 degrees QTc Int : 437 ms Sinus tachycardia with Premature supraventricular complexes Possible Left atrial enlargement Borderline ECG When compared with ECG of 10-JUL-2022 19:34, Premature ventricular complexes are no longer Present Referred By: Jaci Martinez Electronically Signed By:BETSY LOMAS
[2024-03-03] MEDS: iohexoL 350 MG/ML 100 ML INFUS..BTL 85 ML IV (22:32)
--- NOTE | 2024-03-03 22:42 | ECG_ITS ---
Test Reason : tachy Blood Pressure : / mmHG Vent. Rate : 131 BPM Atrial Rate : 131 BPM P-R Int : 154 ms QRS Dur : 084 ms QT Int : 300 ms P-R-T Axes : 015 020 059 degrees QTc Int : 443 ms Sinus tachycardia Possible Left atrial enlargement Nonspecific ST and T wave abnormality Abnormal ECG When compared with ECG of 03-MAR-2024 17:37, No significant changes seen Referred By: Deisy Yao Electronically Signed By:BETSY LOMAS
[2024-03-03 23:37] VITALS: PULSE 125
[2024-03-03] MEDS: Metoprolol Tartrate 5 MG/5 ML VIAL 2.5 MG IVPUSH (23:45)
--- NOTE | 2024-03-03 23:49 | PC.NURSE ---
IV metoprolol given HR 125 BP:110/66 repeat HR: 113 BP 121/67
[2024-03-04] VITALS (15 sets, daily range): BP systolic 90–159; BP diastolic 45–67; PULSE 95–118; RESP 16–22; TEMP 36.4–39.3; O2SAT 93–97
--- NOTE | 2024-03-04 00:04 | MHC.EDTECH ---
This tech took over care of patient at 2300,hourly rounds and vitals completed,rectal probe placed and temp is 101.3,HR 113 RN aware, Belongings list completed and copy placed in chart.
--- NOTE | 2024-03-04 00:41 | PM.IMHP ---
History of Present Illness Date of Service: 03/04/24 Attending physician on admission: Antonette Singh Chief Complaint: High temperature Shashank Fregoso is a 74 years old man with a past medical history significant for MSSA bacteremia, BPH, chronic atrial fibrillation on Eliquis and chronic left foot ulcer (plantar) was brought to the emergency department by EMS where he was found to have elevated temperature. Patient denied any symptoms such as headache, sore throat, shortness on breath, abdominal pain, nausea, vomiting, diarrhea or dizziness. He reported a very occasional dry cough. He denies pain with urination but noted urinary frequency. He was told by his brother that he was having a fever but he has not aware of it. He mentioned that he has been admitted in the past for sepsis. In the ED, he was found to have tachycardia, fever (max temp is 101.5) and tachypnea. O2 sats are normal on room air. Blood workup showed no leukocytosis, bandemia or lactic acidosis. There is slight hyponatremia. LFTs are normal. Creatinine is 1.12. BNP is 53. Urinalysis showed finding consistent with urinary tract infection and microscopic hematuria. Viral testing for influenza, RSV and COVID-19 is negative. Left foot x-rays three views showed no acute osseous abnormality. Abdomen pelvis CT scan with IV contrast showed mild bilateral hydronephrosis and urethral dilation, thick wall trabeculated bladder suggestive of bladder outlet obstruction, mild fatty infiltration of the liver, cholelithiasis and constipation. ED tx: Ceftriaxone 2 g, acetaminophen 975 mg p.o. + 650 mg x 2, NS 2 L bolus, metoprolol 2.5 mg IV and Zofran 4 mg IV. Review of Systems Review of Systems: All 12 systems were reviewed and normal except as noted in HPI. [facility] Medical History Psoriasis Sepsis Elevated cholesterol Anemia BPH (benign prostatic hyperplasia) Diabetes Vitamin D deficiency Neuropathy HTN (hypertension) Chronic a-fib Amputation of great toe Osteomyelitis PVD (peripheral vascular disease) Amputation of toe of left foot Pre-diabetes History of neuropathy Arrhythmia Osteomyelitis of second toe of left foot Ulcer of left second toe Amputated toe of right foot History of heart valve abnormality Family History Mother CAD (coronary artery disease) Surgical History History of amputation of toe Status post amputation of toe Hx of amputation Status post ORIF of fracture of ankle Social History Household Members: Family Housing: House Are you a primary family day care worker to a significant other at home: No Do you presently have visiting nurse or other home services: Yes (visiting Rn) Alcohol intake: never Comment: scheduled med Patient Tobacco Use Status: Never used Tobacco Second Hand Smoke Exposure: No Advance Directives: Yes Advance Directives Information Provided: No Advance Directives on File: No Advance Directives Date on File: 08/07/20 Do you have a plan to hurt others: No Plan service: No Current occupational status: retired Meds Allergies Allergy/AdvReac Type Severity Reaction Status Date / Time penicillin V Allergy Intermediate rash Verified 03/03/24 17:41 amoxicillin Allergy Unknown Verified 03/03/24 17:41 Erythromycin Allergy Intermediate diarrhea Uncoded 02/08/24 06:31 Active Medications: Current Medications Acetaminophen (Acetaminophen Supp 325 Mg Supp.Rect) [address] Q6H PRN PRN Reason: Pain, Mild (Pain Scale 1-3) Sodium Chloride (Ns) 1,000 mls @ 999 mls/hr IV .Q1H1M CODY Stop: 03/04/24 00:45 Last Admin: 03/03/24 23:46 Dose: 999 mls/hr Lactated Ringer's (Lr) 1,000 mls @ 125 mls/hr IVCONT .Q8H [facility] Vancomycin HCl (Vancomycin/Ns) 2,000 mg in 500 mls @ 250 mls/hr IV ONCE ONE Stop: 03/04/24 02:29 Pharmacy Consult (Consult Rx Vancomycin Dosing) 1 each MISCELLANE DAILY PRN PRN Reason: Consult order Sodium Chloride (0.9 % Sodium Chloride Flush 3 Ml Syringe) 3 ml IVFLUSH QSHIFT [facility] Home Medications ?Medication ?Instructions ?Recorded ?Confirmed ?Last Taken ?Type lancets 28 gauge #100 ea 03/14/21 12/08/23 Unknown History Physical Exam Vital Signs and Narrative: Vital Signs: Last Vital Signs Temp 101.3 F H 03/04/24 00:00 Pulse 113 H 05/03/24 00:00 Resp 22 H 03/04/24 00:00 BP 119/66 03/04/24 00:00 Pulse Ox 94 03/04/24 00:00 O2 Del Method Room Air 03/04/24 00:00 BMI result Body Mass Index 27.3 Constitutional - Awake and Alert, No apparent distress. Acutely ill. Febrile HEENT - PERRLA, EOMI. Dry oral mucosa Heart - Tachycardia, irregular rhythm. Lungs - Normal lung expansion, Normal respiratory effort, No respiratory distress, CTA bilaterally Abdomen- NT / ND; +BS; No rebound or guarding Extremities: Skin - Warm/Dry Neurological - Alert & oriented x3. No focal weakness grossly noted. Psychological - Appropriate affect Results Labs 03/03/24 17:55 03/03/24 17:55 Labs: Laboratory Results - last 24 hr 03/03/24 03/03/24 03/03/24 17:55 17:59 21:41 MCV 86.7 MCH 30.9 MCHC 35.6 RDW 13.1 Plt Count 214 MPV 9.0 L Immature Gran % (Auto) 0.6 H Neut % (Auto) 85.3 H Lymph % (Auto) 7.5 L Iron % (Auto) 6.2 Eos % (Auto) 0.1 Baso % (Auto) 0.3 Lymph # (Auto) 0.7 L Iron # (Auto) 0.6 Eos # (Auto) 0.0 Baso # (Auto) 0.0 Abs Immat Gran (auto) 0.05 H Absolute Neuts (auto) 7.6 Absolute Nucleated RBC 0.000 Nucleated RBC % (auto) 0.0 PT 13.2 INR 1.1 Anion Gap 17 Estim Creat Clear Calc 66.3 Estimated GFR > 60 Random Glucose 187 H Lactic Acid 2.0 Calcium 10.1 Magnesium 1.6 Total Bilirubin 0.7 AST 16 ALT 13 Alkaline Phosphatase 64 B-Natriuretic Peptide 53 Total Protein 7.1 Albumin 3.9 Urine Color Yellow Urine Appearance Cloudy Urine pH 6.0 Ur Specific [place] 1.020 Urine Protein 300 (3+) H Urine Glucose (UA) 250 H Urine Ketones Negative Urine Blood Large (3+) H Urine Nitrite Negative Ur Leukocyte Esterase Moderate (2+) H Urine RBC >20 H Urine WBC >50 H Ur Squamous Epith Cells 0-2 Urine Bacteria None Seen Hyaline Casts 0-2 Influenza Type A (PCR) NEGATIVE Influenza Type B (PCR) NEGATIVE RSV RNA Qual (PCR) NEGATIVE SARS-CoV-2 RNA (RT-PCR) NEGATIVE Imaging Radiologist's Impressions: Impressions Chest X-Ray 03/03/24 18:39 IMPRESSION: No radiographic evidence of pneumonia. There are no acute/significant findings compared to the prior exam from 07/10/2022. Foot X-Ray 03/03/24 18:39 IMPRESSION: No acute osseous abnormality in the visualized ankle or foot compared to 01/13/2022. No evidence of osteomyelitis. Abdomen/Pelvis CT 03/03/24 22:32 IMPRESSION: Mild bilateral hydronephrosis and ureteral dilatation. Thick-walled trabeculated bladder suggestive of bladder outlet obstruction. Mild fatty infiltration of the liver. Small gallstones in the gallbladder. Constipation. Fleischner guidelines were followed. Assessment and Plan (1) Atrial fibrillation with rapid ventricular response: Status: Acute (2) Acute UTI: Status: Acute (3) Bladder outlet obstruction: Status: Acute (4) Hyponatremia: Status: Acute (5) Bilateral hydronephrosis: Status: Acute Plan Shashank Fregoso is a 74 years old man with PMHx significant for MSSA bacteremia admitted with: Urinary tract infection associated with bladder outlet obstruction + bilateral hydronephrosis likely due to BPH. SIRS criteria but no severe sepsis. Admit to hospitalist service. Telemetry. Insert indwelling urinary catheter. Continue IV fluids. Continue empiric IV antibiotic therapy with ceftriaxone. Add vancomycin. Continue tamsulosin and finasteride. Blood and urine cultures obtained -will follow results. Check CRP. Urology consult. Mild hyponatremia. Continue IV fluids. Continue to monitor. Chronic AFib. Continue metoprolol and Eliquis. Chronic left foot ulcer. Wound care. Chronic anemia. Continue to monitor. DVT prophylaxis: Eliquis Code status: Full Patient will need hospitalization for at least 2 midnights for UTI + SIRS treatment with empiric IV antibiotic therapy and IV fluids. Patient will need close monitoring of vital signs. Quality Stroke Does the patient have a stroke diagnosis?: No VTE Prior VTE?: No VTE Risk Level:: Medical - moderate - high VTE Device Contraindication: Treatment Not Indicated VTE Drug Contraindication: N/A - Med Ordered
--- NOTE | 2024-03-04 00:45 | MHC.EDTECH ---
Assisted RN with a Davis placement,(Coude) emptied 675MLS from Davis, vitals taken,rectal temp 100.9 RN is aware
[2024-03-04 01:33] LABS: C Reactive Protein 3.07 mg/dL (< or = 0.50)
[2024-03-04] MEDS: Ibuprofen 600 MG TABLET PO (01:48)
[2024-03-04] MEDS: vancomycin/NS 2,000 MG/500 ML PLAST..BAG 250 MG IV (01:48)
--- NOTE | 2024-03-04 02:24 | MHC.EDTECH ---
Hourly rounds and vitals completed,BP low 90/47,rectal temp 99.9 RN aware at bedside.
[2024-03-04] MEDS: Lactated Ringers 1,000 ML 125 ML IVCONT ×2 (02:28→09:45)
--- NOTE | 2024-03-04 03:11 | MHC.EDTECH ---
Hourly rounds and vitals completed,BP is low 96/45 RN aware at bedside,patient is resting comfortably
--- NOTE | 2024-03-04 06:15 | MHC.EDTECH ---
Emptied 300MLS from Davis,hourly rounds and vitals completed,call aguilar in reach
--- NOTE | 2024-03-04 07:28 | PHA.PROG ---
Admission Date/Time: March 04, 2024 00:20 Indication: Sepsis Weight in k kg Adjusted body weight in K.54 kg Serum Creatinine - Last 168 Hours 03/03/24 17:55 Creatinine 1.12 Estimated CrCl and GFR - Last 168 Hours 03/03/24 17:55 Estim Creat Clear Calc 66.3 Estimated GFR > 60 Vancomycin Loading Dose: 2,000 mg Current Vancomycin Dosing Regimen: 1,500 mg Q24H Vancomycin Monitoring using AUC goal of 400 - 600 range with trough as surrogate marker: 465 mg/L, predicted trough 13.4 mg/L Date and Time for next Vancomycin Level to be drawn: 03/05 @ 21:00 Pharmacist Comments on Vancomycin Plan: Vancomycin dosing will take advantage of Pow[employer] Now as a clinical decision support tool that uses Bayesian modeling to calculate individual patient's pharmacokinetic parameters and forecast the patient's drug concentration time course with the target goal AUC 24 range of 400 - 600 mg/L/hr.
--- NOTE | 2024-03-04 07:33 | PC.NURSE ---
Late documentation: This RN notified by Tech that pt had taken off bp cuff and leads and that he was tachy. 2nd set of bp unable to be obtained d/t pt removing cuff and it did not cycle. Pt rectal temp elevated again. Provider notified and PO tylenol ordered and given but pt vomited right after. Rectal Temp elevated, Zofran and Rectal Tylenol, and fluids given per provider. Pt also had not voided, carmichael ordred by provider. 16F coude used d/t 1st carmichael attempt not successful. 875 output. Continuous rectal temp in place. Pt admitted, given ibuprofen per , temp improved but had a drop in BP, notified and bolus ordered and given. Maintenance fluids given and running at 125/hr. Pt reporting feeling better. Vitals improved.
--- NOTE | 2024-03-04 08:59 | PHA.MEDREC ---
Pharmacy Consult ? Medication Reconciliation Pharmacy has completed the medication reconciliation. Spoke to patient who was a proper historian
[2024-03-04] MEDS: 0.9 % Sodium Chloride Flush 3 ML SYRINGE IVFLUSH (09:45)
[2024-03-04] MEDS: Pantoprazole Sodium 40 MG/10 ML VIAL IVPUSH (09:53)
--- NOTE | 2024-03-04 10:42 | P.EN_ITS ---
Event Note Date of Service: 03/04/24 Event Note: Shashank Fregoso is a 74 years old man with PMHx significant for MSSA bacteremia admitted with: Feeling better this morning denies fever, no chills, no shortness of breath no acute issues since admission, complaining of discomfort anterior chest wall katty aterally noted to have rash On examination awake alert x3 in no acute distress Lungs clear Abdomen soft nontender bowel sounds audible Left foot dressing in place no drainage see pictures in admission note Skin moist hyperemic rash underneath the breasts folds A/P bladder outlet obstruction + bilateral hydronephrosis likely due to BPH, UA unremarkable, normal chest x-ray, normal foot x-ray, no evidence of cellulitis, lactic acid 2.CRP 3.07. Admit to hospitalist service. Telemetry. Insert indwelling urinary catheter. Continue IV fluids. Continue empiric IV antibiotic therapy with ceftriaxone and vancomycin. Continue tamsulosin and finasteride. Sepsis present on admission with tachycardia, tachypnea with positive Blood culture 1/2 , for Gram-positive cocci /urine cultures pending -will follow results. follow Urology consult. Mild acute hyponatremia. Status post IV fluids follow lab Chronic AFib. Continue metoprolol and Eliquis. Chronic left foot ulcer. X-ray foot showed no acute osseous abnormality, Wound care consult pending. Chronic anemia. stable hematocrit Nicole intertrigo placed on nystatin powder b.i.d. under breast Med req completed DVT prophylaxis: Eliquis Code status: Full Patient will need hospitalization for at least 2 midnights for UTI + SIRS treatment with empiric IV antibiotic therapy and IV fluids. Patient will need close monitoring of vital signs. Time Spent With Patient Time: Total time managing care of this patient today ____ minutes.
[2024-03-04] MEDS: Nystatin Powder 15 GM BOTTLE 1 APPL TOPICAL ×2 (14:55→21:01)
--- NOTE | 2024-03-04 16:11 | MHC.CM.PN ---
PT REPORTS HE LIVES WITH HIS BROTHER AND IS INDEPENDENT WITH SELF CARE HE SAYS HE IS ACTIVE WITH A VNA FOR WOUND CARE AT HOME, AND GOES TO THE [facility] HE USES A CANE AT HOME AND A WALKER WHEN HE GOES TO [facility] PT SAYS HE HAS A HCP NAMING HIS BROTHER HIS AGENT, COPY REQUESTED PCP: ROCHELLE MOSER IMM DELIVERED DCP: HOME, RESUME VNA AND WOUND CLINIC BROTHER TO TRANSPORT * CM ATTEMPTED TO CONTACT DR CHILDRESS OFFICE TO OBTAIN THE NAME OF PTS VNA, HOWEVER CALL GOES TO .
[2024-03-04] MEDS: cefTRIAXone sodium 1 GM in 0.9 % Sodium Chloride 50 ML IV (18:00)
[2024-03-04] MEDS: Tamsulosin HCL 0.4 MG CAPSULE PO (20:58)
[2024-03-04] MEDS: Apixaban 5 MG TABLET PO (20:58)
[2024-03-04] MEDS: Metoprolol Tartrate 50 MG TABLET PO (20:59)
[2024-03-04] MEDS: Finasteride 5 MG TABLET PO (21:00)
[2024-03-05] VITALS (7 sets, daily range): BP systolic 99–140; BP diastolic 57–64; PULSE 84–107; RESP 18–20; TEMP 36.6–37.6; O2SAT 92–95
[2024-03-05] MEDS: Acetaminophen Supp 325 MG SUPP.RECT 975 MG PR (00:11)
[2024-03-05] MEDS: vancomycin HCL 1,500 MG in 0.9 % Sodium Chloride 500 ML 333.33 MG IV ×2 (00:27→23:48)
[2024-03-05 03:05] LABS: MANUAL DIFF FLAG NO
[2024-03-05 03:08] LABS: Basophils Percent Auto 0.3 % (0-2); Eosinophils Absolute Auto 0.1 X10*3/uL (0.0-0.4); Eosinophils Percent Auto 0.8 % (0-4); Hemoglobin 10.2 g/dl (14.0-18.0); Imm Gran Abs Auto 0.06 X10*3/uL (0.00-0.03); Imm Gran Pct Auto 0.6 % (0.0-0.4); Lymphocytes Absolute Auto 0.7 X10*3/uL (1.2-4.9); Lymphocytes Percent Auto 6.6 % (20-40); Mean Corpuscular Hemoglobin 30.9 pg (27.0-33.0); Mean Corpuscular Volume 90.9 fL (80.0-98.0); Mean Platelet Volume 9.2 fL (9.4-12.4); Monocytes Absolute Auto 0.9 X10*3/uL (0.1-1.2); Monocytes Percent Auto 9.1 % (2-11); Neutrophils Absolute Auto 8.4 x10*3/uL (2.0-8.3); Neutrophils Percent Auto 82.6 % (45-73); Platelet Count 162 X10*3/uL (160-400); Red Cell Distribution Width 13.5 % (11.0-16.0); White Blood Count 10.2 X10*3/uL (4.8-10.8)
[2024-03-05 03:23] LABS: Lactic Acid 1.2 mmol/L (0.5-2.0)
[2024-03-05 03:30] LABS: Alanine Aminotransferase 55 U/L (0-40); Albumin Level 2.9 g/dL (3.5-5.0); Alkaline Phosphatase 67 U/L (39-117); Anion Gap 14 (12-20); Aspartate Amino Transferase 56 U/L (5-37); Bilirubin Total 0.7 mg/dL (0.0-1.0); Blood Urea Nitrogen 33 mg/dL (9-16); Calcium 7.8 mg/dL (8.4-10.2); Carbon Dioxide 18 mmol/L (22-29); Chloride 108 mmol/L (96-108); Creatinine Clr Calc Pharmacy 49.2; Estimated Glomerular Filt Rate 46; Glucose Random 195 mg/dL (60-115); Potassium 4.2 mmol/L (3.3-5.1); Sodium 136 mmol/L (135-145); Total Protein 5.3 g/dL (6.5-8.0)
[2024-03-05] MEDS: Lactated Ringers 500 ML 999 ML IV (05:53)
--- NOTE | 2024-03-05 06:01 | PM.EVENT ---
Event Note Date of Service: 03/05/24 Event Note: Patient had fever spike of 102.8 and tachycardia. Nurse brought to my attention that patient's Davis is draining almost darkish brown urine. I requested to get AM labs earlier CBC +differential, CMP, lactic acid, total CK and recheck urinalysis. Hemoglobin dropped from 12.5-10.2. There is no leukocytosis or lactic acidosis. Creatinine increased from 1.12 to 1.51. Now transaminases are elevated total CK. Urinalysis has been repeated and showed large blood, moderate leukocyte steroids, RBC > 20 and WBC >50. At 6 AM I did evaluate pt as nurse stated patient was tremulous and red; was concerned patient might be having a bad reaction to vancomycin. Patient is certainly looked flushed however, he does not look like this since admission time (even before receiving 1st dose of vancomycin). He was also shivering and said he is cold. Patient stated he was fine. Most recent temperature is 97.9 degrees. No tachycardia or hypotension. Elevated transaminases likely secondary to rhabdomyolysis possibly due to rigors. Restart IV fluids. Check urine myoglobin. Continue to monitor CK. Elevated creatinine, likely secondary to rhabdomyolysis, poor p.o. intake. Restart IV fluids. Dark brown urine likely multifactorial: hematuria due to UTI and/traumatic, concentrated urine due to dehydration. Pt on Eliquis and aspirin -hold for now. Worsening anemia, likely due to hematuria. Continue to monitor. Eliquis and aspirin on hold now. Time Spent With Patient Time: Total time managing care of this patient today ____ minutes.
[2024-03-05] MEDS: Lactated Ringers 1,000 ML 100 ML IVCONT ×2 (06:33→16:24)
[2024-03-05] MEDS: Cholecalciferol (Vitamin D3) 25 MCG TABLET PO (10:17)
[2024-03-05] MEDS: Metoprolol Tartrate 50 MG TABLET PO ×2 (10:17→20:41)
[2024-03-05] MEDS: Cyanocobalamin (Vitamin B-12) 500 MCG TABLET PO (10:17)
[2024-03-05] MEDS: Pantoprazole Sodium 40 MG/10 ML VIAL IVPUSH (10:17)
[2024-03-05] MEDS: 0.9 % Sodium Chloride Flush 3 ML SYRINGE IVFLUSH ×2 (10:18→16:19)
[2024-03-05] MEDS: Nystatin Powder 15 GM BOTTLE 1 APPL TOPICAL ×2 (10:20→20:45)
--- NOTE | 2024-03-05 12:32 | P.PNIM_ITS ---
Subjective Subjective Date of Service: 03/05/24 Interval History: Overall improving as related to notes. No acute issues overnight Review of Systems Denies chest pain Denies shortness of breath Denies nausea vomiting diarrhea Denies fever chills Physical Exam 2 Vital Signs: Vital Signs: Last Vital Signs Temp 99.4 F 03/05/24 11:00 Pulse 93 03/05/24 11:00 Resp 20 03/05/24 11:00 BP 113/62 03/05/24 11:00 Pulse Ox 95 03/05/24 11:00 O2 Del Method Room Air 03/05/24 11:00 BMI result Body Mass Index 27.3 Const: Other: Awake alert no acute distress Resp: Other: Clear to auscultation bilaterally no rales rhonchi or wheezes Cardio: Other: No S4; positive S1-S2; no S3 murmurs rubs or gallops GI: Other: Soft nontender nondistended normoactive bowel sounds Extrem: Other: No edema bilaterally Objective Data Active Medications Acetaminophen (Acetaminophen Supp 325 Mg Supp.Rect) 975 mg GA Q6H PRN PRN Reason: Pain, Mild (Pain Scale 1-3) Last Admin: 03/05/24 00:11 Dose: 975 mg Documented By: STANLEY Apixaban (Apixaban 5 Mg Tablet) 5 mg PO BID [facility] Last Admin: 03/04/24 20:58 Dose: 5 mg Documented By: STANLEY Cyanocobalamin (Cyanocobalamin (Vitamin B-12) 500 Mcg Tablet) 500 mcg PO DAILY [facility] Last Admin: 03/05/24 10:17 Dose: 500 mcg Documented By: ANA Finasteride (Finasteride 5 Mg Tablet) 5 mg PO BEDTIME [facility] Last Admin: 03/04/24 21:00 Dose: 5 mg Documented By: STANLEY Ceftriaxone Sodium 1 gm/ (Sodium Chloride) 50 mls @ 100 mls/hr IV Q24H [facility] Last Infusion: 03/04/24 18:31 Dose: Infused Documented By: ANDRES Vancomycin HCl 1,500 mg/ (Sodium Chloride) 500 mls @ 333.333 mls/hr IV Q24H [facility] Last Infusion: 03/05/24 05:25 Dose: Infused Documented By: KRISH Lactated Ringer's (Lr) 1,000 mls @ 100 mls/hr IVCONT .Q10H [facility] Stop: 03/06/24 05:44 Last Admin: 03/05/24 06:33 Dose: 100 mls/hr Documented By: KRISH Metoprolol Tartrate (Metoprolol Tartrate 50 Mg Tablet) 50 mg PO BID [facility]; Protocol Last Admin: 03/05/24 10:17 Dose: 50 mg Documented By: ANA Nystatin (Nystatin Powder 15 Gm Bottle) 1 appl TOPICAL BID [facility]; Protocol Last Admin: 03/05/24 10:20 Dose: 1 appl Documented By: ANA Pantoprazole Sodium (Pantoprazole Sodium 40 Mg/10 Ml Vial) 40 mg IVPUSH DAILY [facility] Last Admin: 03/05/24 10:17 Dose: 40 mg Documented By: ANA Pharmacy Consult (Consult Rx Vancomycin Dosing) 1 each MISCELLANE DAILY PRN PRN Reason: Consult order Sodium Chloride (0.9 % Sodium Chloride Flush 3 Ml Syringe) 3 ml IVFLUSH QSHIFT [facility] Last Admin: 03/05/24 10:18 Dose: 3 ml Documented By: ANA Tamsulosin HCl (Tamsulosin Hcl 0.4 Mg Capsule) 0.4 mg PO BEDTIME [facility] Last Admin: 03/04/24 20:58 Dose: 0.4 mg Documented By: STANLEY Vitamin D (Cholecalciferol (Vitamin D3) 25 Mcg Tablet) 25 mcg PO DAILY [facility] Last Admin: 03/05/24 10:17 Dose: 25 mcg Documented By: ANA Labs 03/05/24 02:50 03/05/24 02:50 Labs: Laboratory Results - last 24 hr 03/05/24 02:50 MCV 90.9 MCH 30.9 MCHC 34.0 RDW 13.5 Plt Count 162 MPV 9.2 L Immature Gran % (Auto) 0.6 H Neut % (Auto) 82.6 H Lymph % (Auto) 6.6 L [place] % (Auto) 9.1 Eos % (Auto) 0.8 Baso % (Auto) 0.3 Lymph # (Auto) 0.7 L [place] # (Auto) 0.9 Eos # (Auto) 0.1 Baso # (Auto) 0.0 Abs Immat Gran (auto) 0.06 H Absolute Neuts (auto) 8.4 H Absolute Nucleated RBC 0.000 Nucleated RBC % (auto) 0.0 Anion Gap 14 Estim Creat Clear Calc 49.2 Estimated GFR 46 Random Glucose 195 H Lactic Acid 1.2 Calcium 7.8 L D Total Bilirubin 0.7 AST 56 H ALT 55 H Alkaline Phosphatase 67 Total Creatine Kinase 230 H Total Protein 5.3 L Albumin 2.9 L Microbiology Microbiology Results: Microbiology 03/03/24 17:55 Blood Culture - Preliminary Blood - Venous Staphylococcus species 03/03/24 17:55 Blood Culture - Preliminary Blood - Venous Staphylococcus species 03/03/24 Unknown Urine Culture - Final Urine clean catch - Urine luis top No growth. Assessment and Plan (1) Acute UTI: Status: Acute (2) Hyponatremia: Status: Acute Plan Shashank Fregoso is a 74 years old man with PMHx significant for MSSA bacteremia admitted with pyelonephritis 1. UTI 2/2 blood cultures positive for GPC -ceftriaxone/vancomycin (2) -adjust as per cultures 2. Hyponatremia -resolved with volume repletion -follow renals/divalents Eliquis Full code Patient requires ongoing hospitalization for IV antibiotics to treat bacteremia pending ID Quality Stroke Does the patient have a stroke diagnosis?: No VTE Prior VTE?: No VTE Risk Level:: Medical - moderate - high VTE Device Contraindication: Treatment Not Indicated VTE Drug Contraindication: N/A - Med Ordered
--- NOTE | 2024-03-05 14:35 | P.CONPL_ITS ---
History of Present Illness History of Present Illness Consult date: 03/05/24 Chief complaint: Shortness of breath Narrative: 74-year-old gentleman with underlying history of MSSA bacteremia, BPH, chronic AFib on Eliquis, chronic left foot plantar ulcer admitted on 03/04/2024 with fevers. Patient empirically treated with ceftriaxone for prior history of MSSA bacteremia. His blood cultures growing staphylococcal species. He currently denies any dyspnea. His chest x-ray shows no evidence of lobar pneumonia. Review of Systems 2 Constitutional: Constitutional: Denies daytime sleepiness, Denies excessive sweating, Denies fatigue, Reports fever(s), Denies lethargy, Denies malaise, Denies night sweats, Denies snoring and Denies weight loss Eyes: Eyes: Denies blurry vision and Denies itchy eyes ENT: Denies nasal congestion, Denies post nasal drip, Denies sinus pain, Denies sinus pressure and Denies other ( Thrush) Cardiovascular: Cardiovascular: Denies chest pain, Denies pedal edema, Denies dyspnea, Denies orthopnea and Denies paroxysmal nocturnal dyspnea Respiratory: Respiratory: Denies cough, Denies hemoptysis, Denies excessive phlegm production, Denies dyspnea, Denies snoring and Denies wheezing Gastrointestinal: Gastrointestinal: Denies abdominal pain and Denies heartburn Musculoskeletal: Musculoskeletal: Denies myalgias, Denies arthralgias and Denies joint swelling Integumentary/Breasts: Skin/Breast: Denies rash Neurologic: Denies memory loss and Denies seizure-like activity Psychiatric: Psychiatric: Denies abnormal sleep pattern, Denies anxiety and Denies memory loss Endocrine: Endocrine: Denies excessive sweating, Denies fatigue and Denies heat intolerance Hematologic/Lymphatic: Hematologic/Lymphatic: Denies easy bruising Allergic/Immunologic: Allergic/Immunologic: Denies itchy eyes, Denies seasonal rhinorrhea and Denies wheezing PMFSH Past Medical History Medical History Psoriasis Sepsis Elevated cholesterol Anemia BPH (benign prostatic hyperplasia) Diabetes Vitamin D deficiency Neuropathy HTN (hypertension) Chronic a-fib Amputation of great toe Osteomyelitis PVD (peripheral vascular disease) Amputation of toe of left foot Pre-diabetes History of neuropathy Arrhythmia Osteomyelitis of second toe of left foot Ulcer of left second toe Amputated toe of right foot History of heart valve abnormality Family History Family History Mother CAD (coronary artery disease) Surgical History Surgical History History of amputation of toe Status post amputation of toe Hx of amputation Status post ORIF of fracture of ankle Social History Social History Household Members: Family Housing: House Are you a primary progressive care nurse to a significant other at home: No Do you presently have visiting nurse or other home services: Yes ([facility] for foot dressings) Alcohol intake: never Comment: scheduled med Patient Tobacco Use Status: Never used Tobacco Second Hand Smoke Exposure: No Use of substances other than those prescribed or required for medical reasons: No Have you been hit, kicked, punched, or otherwise hurt by someone within the past year? If so, by whom?: No Do you feel safe in your current relationship?: No Current Relationship Is there a partner from a previous relationship who is making you feel unsafe now?: No Are you made to feel afraid or neglected: No Advance Directives: Yes Advance Directives Information Provided: No Advance Directives on File: No Advance Directives Date on File: 08/07/20 Do you have a plan to hurt others: No Plan Recently lost weight without trying: No Nutrition Risks: No Nutritional Risk service: No Current occupational status: retired Meds Allergies Allergy/AdvReac Type Severity Reaction Status Date / Time penicillin V Allergy Intermediate rash Verified 03/03/24 17:41 amoxicillin Allergy Unknown Verified 03/03/24 17:41 Erythromycin Allergy Intermediate diarrhea Uncoded 02/08/24 06:31 Active Medications: Current Medications Acetaminophen (Acetaminophen Supp 325 Mg Supp.Rect) 975 mg GA Q6H PRN PRN Reason: Pain, Mild (Pain Scale 1-3) Last Admin: 03/05/24 00:11 Dose: 975 mg Apixaban (Apixaban 5 Mg Tablet) 5 mg PO BID [facility] Last Admin: 03/04/24 20:58 Dose: 5 mg Cyanocobalamin (Cyanocobalamin (Vitamin B-12) 500 Mcg Tablet) 500 mcg PO DAILY [facility] Last Admin: 03/05/24 10:17 Dose: 500 mcg Finasteride (Finasteride 5 Mg Tablet) 5 mg PO BEDTIME [facility] Last Admin: 03/04/24 21:00 Dose: 5 mg Ceftriaxone Sodium 1 gm/ (Sodium Chloride) 50 mls @ 100 mls/hr IV Q24H [facility] Last Infusion: 03/04/24 18:31 Dose: Infused Vancomycin HCl 1,500 mg/ (Sodium Chloride) 500 mls @ 333.333 mls/hr IV Q24H [facility] Last Infusion: 03/05/24 05:25 Dose: Infused Lactated Ringer's (Lr) 1,000 mls @ 100 mls/hr IVCONT .Q10H [facility] Stop: 03/06/24 05:44 Last Admin: 03/05/24 06:33 Dose: 100 mls/hr Metoprolol Tartrate (Metoprolol Tartrate 50 Mg Tablet) 50 mg PO BID [facility]; Protocol Last Admin: 03/05/24 10:17 Dose: 50 mg Nystatin (Nystatin Powder 15 Gm Bottle) 1 appl TOPICAL BID [facility]; Protocol Last Admin: 03/05/24 10:20 Dose: 1 appl Pantoprazole Sodium (Pantoprazole Sodium 40 Mg/10 Ml Vial) 40 mg IVPUSH DAILY [facility] Last Admin: 03/05/24 10:17 Dose: 40 mg Pharmacy Consult (Consult Rx Vancomycin Dosing) 1 each MISCELLANE DAILY PRN PRN Reason: Consult order Sodium Chloride (0.9 % Sodium Chloride Flush 3 Ml Syringe) 3 ml IVFLUSH QSHIFT [facility] Last Admin: 03/05/24 10:18 Dose: 3 ml Tamsulosin HCl (Tamsulosin Hcl 0.4 Mg Capsule) 0.4 mg PO BEDTIME [facility] Last Admin: 03/04/24 20:58 Dose: 0.4 mg Vitamin D (Cholecalciferol (Vitamin D3) 25 Mcg Tablet) 25 mcg PO DAILY [facility] Last Admin: 03/05/24 10:17 Dose: 25 mcg Home Medications ?Medication ?Instructions ?Recorded ?Confirmed ?Last Taken ?Type lancets 28 gauge #100 ea 03/14/21 12/08/23 Unknown History aspirin 81 mg tablet,delayed 81 mg PO DAILY 03/04/24 03/04/24 Unknown History release cholecalciferol (vitamin D3) 25 25 mcg PO DAILY 03/04/24 03/04/24 Unknown History mcg (1,000 unit) tablet cyanocobalamin (vitamin B-12) 500 500 mcg PO DAILY 03/04/24 03/04/24 Unknown History mcg tablet tamsulosin 0.4 mg capsule 0.4 mg PO BEDTIME 03/04/24 03/04/24 Unknown History Physical Exam 2 Vital Signs: Vital Signs: Last Vital Signs Temp 99.4 F 03/05/24 11:00 Pulse 93 03/05/24 11:00 Resp 20 03/05/24 11:00 BP 113/62 03/05/24 11:00 Pulse Ox 95 03/05/24 11:00 O2 Del Method Room Air 03/05/24 11:00 BMI result Body Mass Index 27.3 Const: General: no acute distress and alert Nutritional Appearance: not obese Orientation/consciousness: Other orientation findings ( oriented) HEENT: Head: Yes atraumatic Eyes: General: appearance normal, both eyes and all related structures S clerae: sclerae normal EOM: EOMs intact bilaterally Neck: Neck: Yes supple Lymphatic: no lymphadenopathy noted Resp: Effort & Inspection: normal respiratory effort and no use of accessory muscles Auscultation: clear to auscultation bilaterally Cardio: Rate: regular rate Rhythm: regular rhythm Heart sounds: no gallops, no murmurs and no rubs Skin: General skin exam: other ( warm) Extrem: General: No clubbing, No cyanosis and Yes edema (Trace bilateral) Results Laboratory Findings 03/05/24 02:50 03/05/24 02:50 ABG, PT/INR, D-dimer: PT/INR, D-dimer PT 13.2 SEC (11.1-13.3) 03/03/24 17:55 INR 1.1 (0.9-1.1) 03/03/24 17:55 Abnormal lab findings: Abnormal Labs 03/03/24 03/03/24 03/05/24 17:55 21:41 02:50 RBC 4.05 L 3.30 L Hgb 12.5 L 10.2 L Hct 35.1 L 30.0 L MPV 9.0 L 9.2 L Immature Gran % (Auto) 0.6 H 0.6 H Neut % (Auto) 85.3 H 82.6 H Lymph % (Auto) 7.5 L 6.6 L Lymph # (Auto) 0.7 L 0.7 L Abs Immat Gran (auto) 0.05 H 0.06 H Absolute Neuts (auto) 8.4 H Sodium 132 L Carbon Dioxide 19 L 18 L BUN 26 H 33 H Creatinine 1.51 H Random Glucose 187 H 195 H Calcium 7.8 L D AST 56 H ALT 55 H Total Creatine Kinase 230 H C-Reactive Protein 3.07 H Total Protein 5.3 L Albumin 2.9 L Urine Protein 300 (3+) H Urine Glucose (UA) 250 H Urine Blood Large (3+) H Ur Leukocyte Esterase Moderate (2+) H Urine RBC >20 H Urine WBC >50 H Microbiology: Microbiology 03/03/24 17:55 Blood - Venous Blood Culture - Preliminary Staphylococcus species 03/03/24 17:55 Blood - Venous Blood Culture - Preliminary Staphylococcus species 03/03/24 Unknown Urine clean catch - Urine luis top Urine Culture - Final No growth. Assessment and Plan (1) Bacteremia due to Staphylococcus: Status: Acute (2) Sepsis: Status: Acute Plan Impression: 74-year-old gentleman admitted with fevers secondary to staphylococcal bacteremia with possible urinary on skin sources. Patient denies any complains of dyspnea at this time. His x-ray demonstrates no evidence of lobar pneumonia. He maintains normal oximetry on room air. Recommendations: Considering underlying Gram-positive bacteremia, consider repeating blood cultures, and if positive consider evaluation for endocarditis with 2D echocardiogram. Procedures Date of Service Date of Service: 03/05/24
[2024-03-05] MEDS: cefTRIAXone sodium 1 GM in 0.9 % Sodium Chloride 50 ML IV (17:07)
[2024-03-05] MEDS: Tamsulosin HCL 0.4 MG CAPSULE PO (20:41)
[2024-03-05] MEDS: Finasteride 5 MG TABLET PO (20:41)
[2024-03-05 21:37] LABS: Vancomycin Random 14.7 mcg/mL (15-20)
[2024-03-06] MEDS: Lactated Ringers 1,000 ML 100 ML IVCONT (02:42)
[2024-03-06 03:50] VITALS: BP 128/56; PULSE 92; RESP 18; TEMP 37; O2SAT 92
[2024-03-06 06:56] LABS: MANUAL DIFF FLAG NO
[2024-03-06 07:04] LABS: Basophils Percent Auto 0.1 % (0-2); Eosinophils Absolute Auto 0.2 X10*3/uL (0.0-0.4); Eosinophils Percent Auto 2.3 % (0-4); Hemoglobin 10.3 g/dl (14.0-18.0); Imm Gran Abs Auto 0.03 X10*3/uL (0.00-0.03); Imm Gran Pct Auto 0.4 % (0.0-0.4); Lymphocytes Absolute Auto 0.5 X10*3/uL (1.2-4.9); Lymphocytes Percent Auto 6.1 % (20-40); Mean Corpuscular HGB Conc 34.3 g/dl (31.0-36.0); Mean Corpuscular Hemoglobin 30.7 pg (27.0-33.0); Mean Corpuscular Volume 89.6 fL (80.0-98.0); Mean Platelet Volume 9.3 fL (9.4-12.4); Monocytes Absolute Auto 0.2 X10*3/uL (0.1-1.2); Monocytes Percent Auto 2.7 % (2-11); Neutrophils Absolute Auto 6.8 x10*3/uL (2.0-8.3); Neutrophils Percent Auto 88.4 % (45-73); Platelet Count 146 X10*3/uL (160-400); Red Blood Count 3.35 X10*6/uL (4.60-5.80); Red Cell Distribution Width 13.5 % (11.0-16.0); White Blood Count 7.7 X10*3/uL (4.8-10.8)
[2024-03-06 07:17] LABS: Anion Gap 14 (12-20); Blood Urea Nitrogen 28 mg/dL (9-16); Calcium 7.9 mg/dL (8.4-10.2); Carbon Dioxide 19 mmol/L (22-29); Chloride 108 mmol/L (96-108); Creatinine Clr Calc Pharmacy 59.9; Estimated Glomerular Filt Rate 57; Glucose Random 161 mg/dL (60-115); Potassium 3.8 mmol/L (3.3-5.1); Sodium 137 mmol/L (135-145)
[2024-03-06 07:23] VITALS: BP 150/64; PULSE 99; RESP 18; TEMP 36.3; O2SAT 94
[2024-03-06 08:31] VITALS: BP 150/64; PULSE 99
[2024-03-06] MEDS: Metoprolol Tartrate 50 MG TABLET PO ×2 (08:31→20:17)
[2024-03-06] MEDS: Cholecalciferol (Vitamin D3) 25 MCG TABLET PO (08:31)
[2024-03-06] MEDS: Pantoprazole Sodium 40 MG/10 ML VIAL IVPUSH (08:31)
[2024-03-06] MEDS: 0.9 % Sodium Chloride Flush 3 ML SYRINGE IVFLUSH ×3 (08:31→23:43)
[2024-03-06] MEDS: Cyanocobalamin (Vitamin B-12) 500 MCG TABLET PO (08:31)
[2024-03-06] MEDS: Nystatin Powder 15 GM BOTTLE 1 APPL TOPICAL ×2 (08:32→20:17)
[2024-03-06 09:34] LABS: Vancomycin Random 22.6 mcg/mL (15-20)
--- NOTE | 2024-03-06 09:47 | HE.PHANOTE ---
RE: vanco Level on 03/06 came back at 22.6; decreased dose to 1250mg Q24H with predicted AUC of 455mg/L, trough of 13.5. Getting another level before next dose tonight @2100 to confirm clearance
[2024-03-06 11:44] VITALS: BP 134/63; PULSE 92; RESP 18; TEMP 36.4; O2SAT 96
--- NOTE | 2024-03-06 12:50 | HO.PM.IMPN ---
Subjective Subjective Date of Service: 03/06/24 Interval History: No acute issues overnight. Mentation clear Review of Systems Denies chest pain Denies shortness of breath Denies nausea vomiting diarrhea Denies fever chills Physical Exam Vital Signs: Vital Signs: Last Vital Signs Temp 97.6 F 03/06/24 11:44 Pulse 92 03/06/24 11:44 Resp 18 03/06/24 11:44 BP 134/63 03/06/24 11:44 Pulse Ox 96 03/06/24 11:44 O2 Del Method Room Air 03/06/24 11:44 BMI result Body Mass Index 27.3 Const: Other: Awake alert no acute distress Resp: Other: Clear to auscultation bilaterally no rales rhonchi or wheezes Cardio: Other: No S4; positive S1-S2; no S3 murmurs rubs or gallops GI: Other: Soft nontender nondistended normoactive bowel sounds Extrem: Other: No edema bilaterally Objective Data Active Medications Acetaminophen (Acetaminophen Supp 325 Mg Supp.Rect) 975 mg NE Q6H PRN PRN Reason: Pain, Mild (Pain Scale 1-3) Last Admin: 03/05/24 00:11 Dose: 975 mg Documented By: STANLEY Apixaban (Apixaban 5 Mg Tablet) 5 mg PO BID [facility] Last Admin: 03/04/24 20:58 Dose: 5 mg Documented By: STANLEY Cyanocobalamin (Cyanocobalamin (Vitamin B-12) 500 Mcg Tablet) 500 mcg PO DAILY [facility] Last Admin: 03/06/24 08:31 Dose: 500 mcg Documented By: ISAIAS Finasteride (Finasteride 5 Mg Tablet) 5 mg PO BEDTIME [facility] Last Admin: 03/05/24 20:41 Dose: 5 mg Documented By: MACKENZIE Ceftriaxone Sodium 1 gm/ (Sodium Chloride) 50 mls @ 100 mls/hr IV Q24H [facility] Last Infusion: 03/05/24 17:37 Dose: Infused Documented By: ISAIAS Vancomycin HCl 1,250 mg/ (Sodium Chloride) 250 mls @ 166.667 mls/hr IV Q24H [facility] Metoprolol Tartrate (Metoprolol Tartrate 50 Mg Tablet) 50 mg PO BID [facility]; Protocol Last Admin: 03/06/24 08:31 Dose: 50 mg Documented By: ISAIAS Nystatin (Nystatin Powder 15 Gm Bottle) 1 appl TOPICAL BID [facility]; Protocol Last Admin: 03/06/24 08:32 Dose: 1 appl Documented By: ISAIAS Pantoprazole Sodium (Pantoprazole Sodium 40 Mg/10 Ml Vial) 40 mg IVPUSH DAILY [facility] Last Admin: 03/06/24 08:31 Dose: 40 mg Documented By: ISAIAS Pharmacy Consult (Consult Rx Vancomycin Dosing) 1 each MISCELLANE DAILY PRN PRN Reason: Consult order Sodium Chloride (0.9 % Sodium Chloride Flush 3 Ml Syringe) 3 ml IVFLUSH QSHIFT [facility] Last Admin: 03/06/24 08:31 Dose: 3 ml Documented By: ISAIAS Tamsulosin HCl (Tamsulosin Hcl 0.4 Mg Capsule) 0.4 mg PO BEDTIME [facility] Last Admin: 03/05/24 20:41 Dose: 0.4 mg Documented By: MACKENZIE Vitamin D (Cholecalciferol (Vitamin D3) 25 Mcg Tablet) 25 mcg PO DAILY [facility] Last Admin: 03/06/24 08:31 Dose: 25 mcg Documented By: ISAIAS Labs 03/06/24 06:37 03/06/24 06:37 Labs: Laboratory Results - last 24 hr 03/05/24 03/06/24 03/06/24 21:04 06:37 09:10 MCV 89.6 MCH 30.7 MCHC 34.3 RDW 13.5 Plt Count 146 L MPV 9.3 L Immature Gran % (Auto) 0.4 Neut % (Auto) 88.4 H Lymph % (Auto) 6.1 L [place] % (Auto) 2.7 Eos % (Auto) 2.3 Baso % (Auto) 0.1 Lymph # (Auto) 0.5 L [place] # (Auto) 0.2 Eos # (Auto) 0.2 Baso # (Auto) 0.0 Abs Immat Gran (auto) 0.03 Absolute Neuts (auto) 6.8 Absolute Nucleated RBC 0.000 Nucleated RBC % (auto) 0.0 Anion Gap 14 Estim Creat Clear Calc 59.9 Estimated GFR 57 Random Glucose 161 H Calcium 7.9 L Total Creatine Kinase 308 H Random Vancomycin 14.7 L 22.6 H Microbiology Microbiology Results: Microbiology 03/03/24 17:55 Blood Culture - Final Blood - Venous Staphylococcus aureus 05/02/24 17:55 Blood Culture - Final Blood - Venous Staphylococcus aureus Assessment and Plan (1) Bacteremia due to Staphylococcus: Status: Acute (2) Hyponatremia: Status: Acute Plan Shashank Fregoso is a 74 years old man with PMHx significant for MSSA bacteremia admitted with pyelonephritis 1. UTI 2/2 blood cultures positive for MSSA -ceftriaxone/vancomycin (3) -adjust as per cultures 2. Hyponatremia -resolved with volume repletion -follow renals/divalents Eliquis Full code Patient requires ongoing hospitalization for IV antibiotics to treat bacteremia Quality Stroke Does the patient have a stroke diagnosis?: No VTE Prior VTE?: No VTE Risk Level:: Medical - moderate - high VTE Device Contraindication: Treatment Not Indicated VTE Drug Contraindication: N/A - Med Ordered
[2024-03-06 15:17] VITALS: BP 147/68; PULSE 92; RESP 18; TEMP 36.4; O2SAT 94
[2024-03-06] MEDS: cefTRIAXone sodium 1 GM in 0.9 % Sodium Chloride 50 ML IV (16:46)
[2024-03-06 19:12] VITALS: BP 117/60; PULSE 100; RESP 20; TEMP 36.6; O2SAT 92
[2024-03-06] MEDS: Tamsulosin HCL 0.4 MG CAPSULE PO (20:17)
[2024-03-06] MEDS: Finasteride 5 MG TABLET PO (20:17)
[2024-03-06 21:45] LABS: Vancomycin Random 15.5 mcg/mL (15-20)
[2024-03-06] MEDS: vancomycin HCL 1,250 MG in 0.9 % Sodium Chloride 250 ML 166.67 MG IV (23:42)
[2024-03-07] VITALS (9 sets, daily range): BP systolic 106–149; BP diastolic 53–72; PULSE 62–108; RESP 18–22; TEMP 36.1–37.3; O2SAT 88–93
--- NOTE | 2024-03-07 07:00 | CA_ITS ---
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 There is mildly increased left ventricular wall thickness. The visually estimated ejection fraction is between 55-60%. - Elevated filling pressures. - Mildly increased right ventricular cavity size. There is normal right ventricular systolic function. - The mitral valve appears myxomatous. There is moderate anterior mitral leaflet thickening. There is mild mitral annular calcification. There is mild to moderate mitral valve regurgitation. There is no mitral valve stenosis. Findings Left Ventricle Normal left ventricular size and systolic function. There is mildly increased left ventricular wall thickness. The visually estimated ejection fraction is between 55-60%. There is no evidence of regional wall motion abnormalities. Abnormal diastolic function is noted. Spectral Doppler is indicative of an impaired relaxation filling pattern. Elevated filling pressures. Right Ventricle Mildly increased right ventricular cavity size. There is normal right ventricular systolic function. Atria The left atrium is mildly dilated. Aortic Valve The aortic valve structure and function is likely normal. There is no aortic valve stenosis. There is no aortic valve regurgitation. Mitral Valve The mitral valve appears myxomatous. There is moderate anterior mitral leaflet thickening. There is mild mitral annular calcification. There is mild to moderate mitral valve regurgitation. There is no mitral valve stenosis. Pulmonic Valve The pulmonic valve is likely normal. Tricuspid Valve Moderately elevated right atrial pressure. There is no evidence of pulmonary hypertension. Great Vessels There is mild dilatation of the ascending aorta measuring 3.50 cm. The visualized portions of the pulmonary artery and branches are normal. Venous The inferior vena cava is dilated and collapses less than 50% with inspiration. Pericardium/Pleural There is no evidence of pericardial effusion. Prior Study Comparison Changes noted compared to prior study dated: 01/15/2022. Mild to moderate MR. Elevated filling pressures. No obvious vegetation noted. Recommendations, Care & Conclusions Consider a JAIME if clinically appropriate. Measurements 2D Linear Measurements IVSd: 1.27 0.6-0.9/0.6-1.0 cm LVIDd: 5.35 3.9-5.3/4.2-5.9 cm LVIDd Index: 2.43 2.4-3.2/2.2-3.1 cm/m2 LVIDs: 3.21 2.0-3.6 cm LVPWd: 1.26 0.7-1.1 cm Ao Root: 3.00 2.1-3.5 cm LA Diam: 3.80 2.7-3.8/3.0-4.0 cm LAIDs Index: 1.73 1.5-2.3 cm/m2 LV Mass: 349.62 67-162/88-224 g LV Mass Index: 158.92 43-95/49-115 g/m2 LVOT Diam: 2.70 3.0+(-)1.3 cm Mitral Valve MV VTI: 0.47 MV Pk Henry: 1.48 MV Mn Henry: 0.89 MV Pk Grad: 9.00 MV Mn Grad: 4.00 MV Pk E: 0.99 MV PK A: 1.35 MV Decel Time: 222.00 E/A: 0.70 E'Lateral: 5.11 E'Medial: 4.90 E/E' Med: 20.10 E/E' Lat: 19.30 PHT: 65.00 MVA PHT: 3.38 MVA Continuity: 2.57 Decel [place]: 4.44 Aortic Valve AoV Pk Henry: 1.37 AoV Mn Henry: 0.83 AoV VTI: 0.30 AoV Pk Grad: 8.00 Aov Mn Grad: 3.00 [place] Cont.VTI: 4.03 LVOT LVOT Pk Henry: 1.05 LVOT Mn Henry: 0.61 LVOT VTI: 0.21 LVOT Pk Grad: 4.00 LVOT Mn Grad: 2.00 LVOT Diam: 2.70 LVOT Area: 5.73 Diastolic Function MV Pk E: 0.99 MV Pk A: 1.35 E/A: 0.70 E'Medial: 4.90 E/E' Med: 20.10 E' Laterial: 5.11 E/E' Lat: 19.30 Tricuspid Valve TR Pk Henry: 2.68 TR Pk Grad: 29.00 RA Press: 3.00 RVSP: 32.00 Great Vessels Aorta Ao Root-2D: 3.00 2.0-3.7 cm Ao Asc: 3.50 2.1-3.4 cm Pulmonary Valve PV Pk Henry: 1.06 Peak PV Grad: 4.00 Updated in Other Vendor System with Status of Final Sharif Alexander MD electronically signed on 03/07/2024 12:08:37 PM with status of Final
[2024-03-07 07:24] LABS: Creatinine Clr Calc Pharmacy 61.9; Estimated Glomerular Filt Rate 59
[2024-03-07] MEDS: Cholecalciferol (Vitamin D3) 25 MCG TABLET PO (08:23)
[2024-03-07] MEDS: Cyanocobalamin (Vitamin B-12) 500 MCG TABLET PO (08:23)
[2024-03-07] MEDS: Metoprolol Tartrate 50 MG TABLET PO ×2 (08:23→20:11)
[2024-03-07] MEDS: Pantoprazole Sodium 40 MG/10 ML VIAL IVPUSH (08:24)
[2024-03-07] MEDS: 0.9 % Sodium Chloride Flush 3 ML SYRINGE IVFLUSH ×3 (08:24→20:13)
[2024-03-07] MEDS: Nystatin Powder 15 GM BOTTLE 1 APPL TOPICAL ×2 (08:34→20:13)
--- NOTE | 2024-03-07 10:39 | MHC.CM.PN ---
Per ROUNDS discussion, Patient is not yet medically cleared for dc and will benefit from a PT Eval to assist with disposition. CM will follow.
--- NOTE | 2024-03-07 13:02 | P.PNIM_ITS ---
Subjective Subjective Date of Service: 03/07/24 Interval History: No acute issues overnight. Intermittent O2 requirement noted Review of Systems Denies chest pain Denies shortness of breath Denies nausea vomiting diarrhea Denies fever chills Physical Exam 2 Vital Signs: Vital Signs: Last Vital Signs Temp 99.1 F 03/07/24 11:05 Pulse 90 03/07/24 12:30 Resp 20 03/07/24 11:05 BP 110/62 03/07/24 11:05 Pulse Ox 88 L 03/07/24 12:30 O2 Del Method Room Air 03/07/24 11:05 BMI result Body Mass Index 27.3 Const: Other: Awake alert no acute distress Resp: Other: Clear to auscultation bilaterally no rales rhonchi or wheezes Cardio: Other: No S4; positive S1-S2; no S3 murmurs rubs or gallops GI: Other: Soft nontender nondistended normoactive bowel sounds Extrem: Other: No edema bilaterally Objective Data Active Medications Acetaminophen (Acetaminophen Supp 325 Mg Supp.Rect) 975 mg [place] Q6H PRN PRN Reason: Pain, Mild (Pain Scale 1-3) Last Admin: 03/05/24 00:11 Dose: 975 mg Documented By: STANELY Apixaban (Apixaban 5 Mg Tablet) 5 mg PO BID [facility] Last Admin: 03/04/24 20:58 Dose: 5 mg Documented By: STANLEY Cyanocobalamin (Cyanocobalamin (Vitamin B-12) 500 Mcg Tablet) 500 mcg PO DAILY [facility] Last Admin: 03/07/24 08:23 Dose: 500 mcg Documented By: ANA Finasteride (Finasteride 5 Mg Tablet) 5 mg PO BEDTIME [facility] Last Admin: 03/06/24 20:17 Dose: 5 mg Documented By: MACKENZIE Ceftriaxone Sodium 1 gm/ (Sodium Chloride) 50 mls @ 100 mls/hr IV Q24H [facility] Last Infusion: 03/06/24 17:16 Dose: Infused Documented By: ISAIAS Vancomycin HCl 1,250 mg/ (Sodium Chloride) 250 mls @ 166.667 mls/hr IV Q24H [facility] Last Infusion: 03/07/24 01:22 Dose: Infused Documented By: MACKENZIE Metoprolol Tartrate (Metoprolol Tartrate 50 Mg Tablet) 50 mg PO BID [facility]; Protocol Last Admin: 03/07/24 08:23 Dose: 50 mg Documented By: ANA Nystatin (Nystatin Powder 15 Gm Bottle) 1 appl TOPICAL BID [facility]; Protocol Last Admin: 03/07/24 08:34 Dose: 1 appl Documented By: ANA Pharmacy Consult (Consult Rx Vancomycin Dosing) 1 each MISCELLANE DAILY PRN PRN Reason: Consult order Sodium Chloride (0.9 % Sodium Chloride Flush 3 Ml Syringe) 3 ml IVFLUSH QSHIFT [facility] Last Admin: 03/07/24 08:24 Dose: 3 ml Documented By: ANA Tamsulosin HCl (Tamsulosin Hcl 0.4 Mg Capsule) 0.4 mg PO BEDTIME [facility] Last Admin: 03/06/24 20:17 Dose: 0.4 mg Documented By: MACKENZIE Vitamin D (Cholecalciferol (Vitamin D3) 25 Mcg Tablet) 25 mcg PO DAILY [facility] Last Admin: 03/07/24 08:23 Dose: 25 mcg Documented By: ANA Labs 03/06/24 06:37 03/07/24 06:38 Labs: Laboratory Results - last 24 hr 03/06/24 03/07/24 21:20 06:38 Estim Creat Clear Calc 61.9 Estimated GFR 59 Random Vancomycin 15.5 Assessment and Plan (1) Bacteremia due to Staphylococcus: Status: Acute Plan Shashank Fregoso is a 74 years old man with PMHx significant for MSSA bacteremia admitted with pyelonephritis 1. UTI 2/2 blood cultures positive for MSSA -ceftriaxone/vancomycin (4) -ask ID input 2. Hyponatremia -resolved with volume repletion -follow renals/divalents Eliquis Full code Patient requires ongoing hospitalization for IV antibiotics to treat bacteremia Quality Stroke Does the patient have a stroke diagnosis?: No VTE Prior VTE?: No VTE Risk Level:: Medical - moderate - high VTE Device Contraindication: Treatment Not Indicated VTE Drug Contraindication: N/A - Med Ordered
--- NOTE | 2024-03-07 14:13 | MHC.CM.PN ---
PT is recommending STR; CM will follow.
[2024-03-07] MEDS: cefTRIAXone sodium 1 GM in 0.9 % Sodium Chloride 50 ML IV (19:05)
[2024-03-07] MEDS: Tamsulosin HCL 0.4 MG CAPSULE PO (20:11)
[2024-03-07] MEDS: Finasteride 5 MG TABLET PO (20:11)
[2024-03-07 21:29] LABS: Vancomycin Random 12.7 mcg/mL (15-20)
--- NOTE | 2024-03-07 21:35 | HE.PHANOTE ---
VANCO increasing vanco to 1500mg Q24H per subtheraprutic trough of 12.7. Predicted AUC 488, trough 13.4, next trough to be drawn 03/08 2100.
[2024-03-08] VITALS (7 sets, daily range): BP systolic 135–162; BP diastolic 57–79; PULSE 80–92; RESP 16–20; TEMP 36.1–36.8; O2SAT 92–94
[2024-03-08] MEDS: vancomycin HCL 1,500 MG in 0.9 % Sodium Chloride 500 ML 333.33 MG IV (00:20)
[2024-03-08 07:28] LABS: Creatinine Clr Calc Pharmacy 71.4; Estimated Glomerular Filt Rate > 60
[2024-03-08] MEDS: 0.9 % Sodium Chloride Flush 3 ML SYRINGE IVFLUSH ×3 (07:57→20:46)
[2024-03-08] MEDS: Cholecalciferol (Vitamin D3) 25 MCG TABLET PO (07:57)
[2024-03-08] MEDS: Nystatin Powder 15 GM BOTTLE 1 APPL TOPICAL ×2 (07:57→20:46)
[2024-03-08] MEDS: Metoprolol Tartrate 50 MG TABLET PO ×2 (07:57→20:45)
[2024-03-08] MEDS: Cyanocobalamin (Vitamin B-12) 500 MCG TABLET PO (07:57)
--- NOTE | 2024-03-08 11:35 | MHC.CM.PN ---
Second IMM 03/08/24, CM met with pt to ask if he will go to [facility]. He said he wants to go home, that he is active with [facility]. He said he lives with his brother and they help each other with things. We discussed a referral to [facility], he said he will speak to his brother and let me know. CM to send [facility] a message via [employer].
--- NOTE | 2024-03-08 15:27 | P.PNIM_ITS ---
Subjective Subjective Date of Service: 03/08/24 Interval History: Being followed for emesis bacteremia, patient offers no acute complaints denies cough, no shortness of breath, no nausea, no vomiting, no abdominal pain, tolerating diet denies urinary symptoms, no foot pain, no acute events overnight. Review of Systems All other system reviewed and negative. Physical Exam 2 Vital Signs: Vital Signs: Last Vital Signs Temp 96.9 F 03/08/24 15:16 Pulse 80 03/08/24 15:16 Resp 20 03/08/24 15:16 BP 162/79 H 03/08/24 12:00 Pulse Ox 92 03/08/24 15:16 O2 Del Method Room Air 03/08/24 15:16 BMI result Body Mass Index 27.3 Const: Other: General alert oriented x3, resting comfortably in no acute distress. Neck supple no JVD. CVS regular rate rhythm, Respiratory lungs clear to auscultation, no respiratory distress, no wheeze, no rhonchi. Gastrointestinal abdomen soft, non tender, bowel sounds audible, no guarding , no rigidity. Extremities no edema. Neuro non focal , speech clear. Left foot plantar surface dry callus, no surrounding redness Skin /dry skin/moist rash under breasts improving, Objective Data Active Medications Acetaminophen (Acetaminophen Supp 325 Mg Supp.Rect) 975 mg [place] Q6H PRN PRN Reason: Pain, Mild (Pain Scale 1-3) Last Admin: 03/05/24 00:11 Dose: 975 mg Documented By: STANLEY Apixaban (Apixaban 5 Mg Tablet) 5 mg PO BID [facility] Last Admin: 03/04/24 20:58 Dose: 5 mg Documented By: STANLEY Cyanocobalamin (Cyanocobalamin (Vitamin B-12) 500 Mcg Tablet) 500 mcg PO DAILY [facility] Last Admin: 03/08/24 07:57 Dose: 500 mcg Documented By: ANA Finasteride (Finasteride 5 Mg Tablet) 5 mg PO BEDTIME [facility] Last Admin: 03/07/24 20:11 Dose: 5 mg Documented By: MACKENZIE Ceftriaxone Sodium 1 gm/ (Sodium Chloride) 50 mls @ 100 mls/hr IV Q24H COUNT [facility] Last Infusion: 03/07/24 19:47 Dose: Infused Documented By: MACKENZIE Vancomycin HCl 1,500 mg/ (Sodium Chloride) 500 mls @ 333.333 mls/hr IV Q24H COUNT [facility] Last Infusion: 03/08/24 02:00 Dose: Infused Documented By: ADALID Metoprolol Tartrate (Metoprolol Tartrate 50 Mg Tablet) 50 mg PO BID [facility]; Protocol Last Admin: 03/08/24 07:57 Dose: 50 mg Documented By: ANA Nystatin (Nystatin Powder 15 Gm Bottle) 1 appl TOPICAL BID [facility]; Protocol Last Admin: 03/08/24 07:57 Dose: 1 appl Documented By: ANA Pharmacy Consult (Consult Rx Vancomycin Dosing) 1 each MISCELLANE DAILY PRN PRN Reason: Consult order Sodium Chloride (0.9 % Sodium Chloride Flush 3 Ml Syringe) 3 ml IVFLUSH QSHIFT COUNT [facility] Last Admin: 03/08/24 07:57 Dose: 3 ml Documented By: ANA Tamsulosin HCl (Tamsulosin Hcl 0.4 Mg Capsule) 0.4 mg PO BEDTIME [facility] Last Admin: 03/07/24 20:11 Dose: 0.4 mg Documented By: MACKENZIE Vitamin D (Cholecalciferol (Vitamin D3) 25 Mcg Tablet) 25 mcg PO DAILY [facility] Last Admin: 03/08/24 07:57 Dose: 25 mcg Documented By: ANA Labs 03/06/24 06:37 03/08/24 06:20 Labs: Laboratory Results - last 24 hr 03/07/24 03/08/24 21:01 06:20 Estim Creat Clear Calc 71.4 Estimated GFR > 60 Random Vancomycin 12.7 L Assessment and Plan (1) Bacteremia due to Staphylococcus: Status: Acute Plan Shashank Fregoso is a 74 years old man with PMHx significant for MSSA bacteremia admitted with pyelonephritis Sepsis due to MSSA bacteremia Afebrile, normal WBC, offers no acute complaints. UA unremarkable, normal chest x-ray, normal foot x-ray, no evidence of cellulitis, lactic acid 2,CRP 3.07. Urine culture showed no growth, blood cultures x2 grew MSSA, on IV ceftriaxone and vancomycin D4 . Will DC IV vanco Will repeat blood cultures x2, ID eval obtained. Mild acute hyponatremia. Resolved with volume repletion,follow lab History of chronic urinary retention with bilateral hydronephrosis Davis catheter removed patient voiding without difficulty, continue tamsulosin and finasteride. Outpatient urology follow-up Chronic persistent AFib. Continue metoprolol and Eliquis. Chronic left foot ulcer. X-ray foot showed no acute osseous abnormality, Chronic anemia. stable hematocrit Nicole intertrigo placed on nystatin powder b.i.d. under breast DVT prophylaxis: Eliquis Code status: Full Patient will need continued inpatient hospitalization for IV antibiotic therapy and for follow-up on repeat blood cultures and expert consultation. Quality Stroke Does the patient have a stroke diagnosis?: No VTE Prior VTE?: No VTE Risk Level:: Medical - moderate - high VTE Device Contraindication: Treatment Not Indicated VTE Drug Contraindication: N/A - Med Ordered
[2024-03-08] MEDS: cefTRIAXone sodium 1 GM in 0.9 % Sodium Chloride 50 ML IV (16:30)
[2024-03-08] MEDS: Tamsulosin HCL 0.4 MG CAPSULE PO (20:45)
[2024-03-08] MEDS: Finasteride 5 MG TABLET PO (20:45)
[2024-03-08 21:58] LABS: Vancomycin Random 14.1 mcg/mL (15-20)
[2024-03-09] VITALS (7 sets, daily range): BP systolic 113–175; BP diastolic 67–79; PULSE 69–91; RESP 18–20; TEMP 36.2–37.4; O2SAT 92–99
--- NOTE | 2024-03-09 00:23 | W.PM.IDCN ---
History of Present Illness Data of Consult Service Date: 03/08/24 Requesting physician: Deisy aYo Primary Care Provider: Ramin Medrano MD HPI Reason for consult: sepsis<MSSA He presents with weakness and chills. He has relatively nonchanging left plantar ulcer foot. He has MSSA bacteremia. Review of Systems Review of Systems: Yes all other systems are reviewed and are negative PMFSH Past Medical History Medical History Psoriasis Sepsis Elevated cholesterol Anemia BPH (benign prostatic hyperplasia) Diabetes Vitamin D deficiency Neuropathy HTN (hypertension) Chronic a-fib Amputation of great toe Osteomyelitis PVD (peripheral vascular disease) Amputation of toe of left foot Pre-diabetes History of neuropathy Arrhythmia Osteomyelitis of second toe of left foot Ulcer of left second toe Amputated toe of right foot History of heart valve abnormality Family History Family History Mother CAD (coronary artery disease) Surgical History Surgical History History of amputation of toe Status post amputation of toe Hx of amputation Status post ORIF of fracture of ankle Social History Social History Household Members: Family Housing: House Are you a primary managed care nurse to a significant other at home: No Do you presently have visiting nurse or other home services: Yes ([facility] for foot dressings) Alcohol intake: never Comment: scheduled med Patient Tobacco Use Status: Never used Tobacco Second Hand Smoke Exposure: No Use of substances other than those prescribed or required for medical reasons: No Currently Displaying Signs/Symptoms of Drug Intoxication Withdrawal: No Have you been hit, kicked, punched, or otherwise hurt by someone within the past year? If so, by whom?: No Do you feel safe in your current relationship?: No Current Relationship Is there a partner from a previous relationship who is making you feel unsafe now?: No Are you made to feel afraid or neglected: No Advance Directives: Yes Advance Directives Information Provided: No Advance Directives on File: No Advance Directives Date on File: 08/07/20 Do you have a plan to hurt others: No Plan Recently lost weight without trying: No Nutrition Risks: No Nutritional Risk service: No Current occupational status: retired Meds Allergies Allergy/AdvReac Type Severity Reaction Status Date / Time penicillin V Allergy Intermediate rash Verified 03/03/24 17:41 amoxicillin Allergy Unknown Verified 03/03/24 17:41 Erythromycin Allergy Intermediate diarrhea Uncoded 02/08/24 06:31 Active Medications: Current Medications Acetaminophen (Acetaminophen Supp 325 Mg Supp.Rect) 975 mg [place] Q6H PRN PRN Reason: Pain, Mild (Pain Scale 1-3) Last Admin: 03/05/24 00:11 Dose: 975 mg Apixaban (Apixaban 5 Mg Tablet) 5 mg PO BID [facility] Last Admin: 03/04/24 20:58 Dose: 5 mg Cyanocobalamin (Cyanocobalamin (Vitamin B-12) 500 Mcg Tablet) 500 mcg PO DAILY [facility] Last Admin: 03/08/24 07:57 Dose: 500 mcg Finasteride (Finasteride 5 Mg Tablet) 5 mg PO BEDTIME [facility] Last Admin: 03/08/24 20:45 Dose: 5 mg Ceftriaxone Sodium 1 gm/ (Sodium Chloride) 50 mls @ 100 mls/hr IV Q24H [facility] Last Infusion: 03/08/24 18:54 Dose: Infused Metoprolol Tartrate (Metoprolol Tartrate 50 Mg Tablet) 50 mg PO BID [facility]; Protocol Last Admin: 03/08/24 20:45 Dose: 50 mg Nystatin (Nystatin Powder 15 Gm Bottle) 1 appl TOPICAL BID [facility]; Protocol Last Admin: 03/08/24 20:46 Dose: 1 appl Sodium Chloride (0.9 % Sodium Chloride Flush 3 Ml Syringe) 3 ml IVFLUSH QSHIFT [facility] Last Admin: 03/08/24 20:46 Dose: 3 ml Tamsulosin HCl (Tamsulosin Hcl 0.4 Mg Capsule) 0.4 mg PO BEDTIME [facility] Last Admin: 03/08/24 20:45 Dose: 0.4 mg Vitamin D (Cholecalciferol (Vitamin D3) 25 Mcg Tablet) 25 mcg PO DAILY [facility] Last Admin: 03/08/24 07:57 Dose: 25 mcg Home Medications ?Medication ?Instructions ?Recorded ?Confirmed ?Last Taken ?Type lancets 28 gauge #100 ea 03/14/21 12/08/23 Unknown History aspirin 81 mg tablet,delayed 81 mg PO DAILY 03/04/24 03/04/24 Unknown History release cholecalciferol (vitamin D3) 25 25 mcg PO DAILY 03/04/24 03/04/24 Unknown History mcg (1,000 unit) tablet cyanocobalamin (vitamin B-12) 500 500 mcg PO DAILY 03/04/24 03/04/24 Unknown History mcg tablet tamsulosin 0.4 mg capsule 0.4 mg PO BEDTIME 03/04/24 03/04/24 Unknown History Physical Exam Vital Signs: Vital Signs: Last Vital Signs Temp 99.4 F 03/09/24 00:00 Pulse 82 03/09/24 00:00 Resp 20 03/09/24 00:00 BP 149/74 H 03/09/24 00:00 Pulse Ox 96 03/09/24 00:00 O2 Del Method Room Air 03/09/24 00:00 BMI result Body Mass Index 27.3 Const: General: cooperative HEENT: Head: Yes normal to inspection Face and sinus: Yes normal facial exam Mouth: Normal oral and palatal mucosa present Teeth and gingiva: dentition normal Eyes: General: appearance normal, both eyes and all related structures Pupils: Equal, round and reactive pupils present Resp: Effort & Inspection: normal respiratory effort Cardio: Rate: regular rate Rhythm: regular rhythm GI: Palpation (GI): Soft to palpation and nontender : General: Yes no CVA tenderness Back/Spine/Pelvis: Back: no CVA tenderness Skin: General skin exam: no rashes or lesions noted Neuro: General: moves all extremities Cranial nerves: Yes Equal, round and reactive pupils present Extrem: Other: healing area left plantar Psych: Appearance: grossly normal Results Labs 03/06/24 06:37 03/08/24 06:20 Labs: BMP 03/08/24 06:20 Creatinine 1.04 Microbiology Microbiology Results: Microbiology 03/03/24 17:55 Blood - Venous Blood Culture - Final Staphylococcus aureus 03/03/24 17:55 Blood - Venous Blood Culture - Final Staphylococcus aureus 03/03/24 Unknown Urine clean catch - Urine luis top Urine Culture - Final No growth. Assessment and Plan (1) Bacteremia due to Staphylococcus: Status: Acute (2) Sepsis: Status: Acute Plan Check echo if not done Change to Kefzol CHeck MRI foot if able,left
[2024-03-09] MEDS: Nystatin Powder 15 GM BOTTLE 1 APPL TOPICAL ×2 (09:00→20:46)
[2024-03-09] MEDS: Cholecalciferol (Vitamin D3) 25 MCG TABLET PO (09:00)
[2024-03-09] MEDS: Metoprolol Tartrate 50 MG TABLET PO ×2 (09:00→20:45)
[2024-03-09] MEDS: Cyanocobalamin (Vitamin B-12) 500 MCG TABLET PO (09:00)
--- NOTE | 2024-03-09 09:10 | PC.NURSE ---
Informed MD of the following - pt is a DM and doesnt have poc orders or diabetic diet order. pt's BP elevaetd this AM 170s
[2024-03-09 09:23] LABS: Estimated Glomerular Filt Rate > 60
[2024-03-09 09:43] LABS: Glucose, Whole Blood 166 mg/dL (60-115)
--- NOTE | 2024-03-09 11:05 | MHC.CM.PN ---
Pt is not yet ready for DC, awaiting test results for blood cultures. DC plan, pt prefers to go home with services, he has been accepted at some [facility] if he chooses to go.
[2024-03-09 11:18] LABS: Glucose, Whole Blood 142 mg/dL (60-115)
--- NOTE | 2024-03-09 11:57 | P.CONCA_ITS ---
History of Present Illness History of Present Illness Date of Service: 03/09/24 Requesting physician: Deisy Yao Chief complaint: MSSA bacteremia, MVP Narrative: 74-year-old gentleman with background history of peripheral vascular disease with toe amputation of left foot and chronic wound on the left foot presenting with MSSA bacteremia. He said he was having fevers at home then decided come to the emergency department. He had positive blood cultures with MSSA which have cleared since 03/03/2024. His echocardiography was performed which shows mitral valve prolapse which is known. He does not have any obvious vegetation and significant mitral valve regurgitation. As mentioned his blood cultures are clearing already. His left foot wound was dressed by wound care. [facility] Past Medical History Medical History Psoriasis Sepsis Elevated cholesterol Anemia BPH (benign prostatic hyperplasia) Diabetes Vitamin D deficiency Neuropathy HTN (hypertension) Chronic a-fib Amputation of great toe Osteomyelitis PVD (peripheral vascular disease) Amputation of toe of left foot Pre-diabetes History of neuropathy Arrhythmia Osteomyelitis of second toe of left foot Ulcer of left second toe Amputated toe of right foot History of heart valve abnormality Family History Family History Mother CAD (coronary artery disease) Surgical History Surgical History History of amputation of toe Status post amputation of toe Hx of amputation Status post ORIF of fracture of ankle Social History Social History Household Members: Family Housing: House Are you a primary director of health care marketing to a significant other at home: No Do you presently have visiting nurse or other home services: Yes ([facility] for foot dressings) Alcohol intake: never Comment: scheduled med Patient Tobacco Use Status: Never used Tobacco Second Hand Smoke Exposure: No Use of substances other than those prescribed or required for medical reasons: No Currently Displaying Signs/Symptoms of Drug Intoxication Withdrawal: No Have you been hit, kicked, punched, or otherwise hurt by someone within the past year? If so, by whom?: No Do you feel safe in your current relationship?: No Current Relationship Is there a partner from a previous relationship who is making you feel unsafe now?: No Are you made to feel afraid or neglected: No Advance Directives: Yes Advance Directives Information Provided: No Advance Directives on File: No Advance Directives Date on File: 08/07/20 Do you have a plan to hurt others: No Plan Recently lost weight without trying: No Nutrition Risks: No Nutritional Risk service: No Current occupational status: retired Meds Allergies Allergy/AdvReac Type Severity Reaction Status Date / Time penicillin V Allergy Intermediate rash Verified 03/03/24 17:41 amoxicillin Allergy Unknown Verified 03/03/24 17:41 Erythromycin Allergy Intermediate diarrhea Uncoded 02/08/24 06:31 Active Medications: Current Medications Acetaminophen (Acetaminophen Supp 325 Mg Supp.Rect) 975 mg [place] Q6H PRN PRN Reason: Pain, Mild (Pain Scale 1-3) Last Admin: 03/05/24 00:11 Dose: 975 mg Apixaban (Apixaban 5 Mg Tablet) 5 mg PO BID [facility] Last Admin: 03/04/24 20:58 Dose: 5 mg Cyanocobalamin (Cyanocobalamin (Vitamin B-12) 500 Mcg Tablet) 500 mcg PO DAILY [facility] Last Admin: 03/09/24 09:00 Dose: 500 mcg Finasteride (Finasteride 5 Mg Tablet) 5 mg PO BEDTIME [facility] Last Admin: 03/08/24 20:45 Dose: 5 mg Cefazolin Sodium 1 gm/ Sodium (Chloride) 50 mls @ 100 mls/hr IV Q8H [facility] Last Infusion: 03/09/24 09:30 Dose: Infused Metoprolol Tartrate (Metoprolol Tartrate 50 Mg Tablet) 50 mg PO BID [facility]; Protocol Last Admin: 03/09/24 09:00 Dose: 50 mg Nystatin (Nystatin Powder 15 Gm Bottle) 1 appl TOPICAL BID [facility]; Protocol Last Admin: 03/09/24 09:00 Dose: 1 appl Sodium Chloride (0.9 % Sodium Chloride Flush 3 Ml Syringe) [facility] Last Admin: 03/09/24 07:41 Dose: Not Given Tamsulosin HCl (Tamsulosin Hcl 0.4 Mg Capsule) 0.4 mg PO BEDTIME [facility] Last Admin: 03/08/24 20:45 Dose: 0.4 mg Vitamin D (Cholecalciferol (Vitamin D3) 25 Mcg Tablet) 25 mcg PO DAILY [facility] Last Admin: 03/09/24 09:00 Dose: 25 mcg Home Medications ?Medication ?Instructions ?Recorded ?Confirmed ?Last Taken ?Type lancets 28 gauge #100 ea 03/14/21 12/08/23 Unknown History aspirin 81 mg tablet,delayed 81 mg PO DAILY 03/04/24 03/04/24 Unknown History release cholecalciferol (vitamin D3) 25 25 mcg PO DAILY 03/04/24 03/04/24 Unknown History mcg (1,000 unit) tablet cyanocobalamin (vitamin B-12) 500 500 mcg PO DAILY 03/04/24 03/04/24 Unknown History mcg tablet tamsulosin 0.4 mg capsule 0.4 mg PO BEDTIME 03/04/24 03/04/24 Unknown History Physical Exam 2 Vital Signs: Vital Signs: Last Vital Signs Temp 97.2 F 03/09/24 11:46 Pulse 69 03/09/24 11:46 Resp 20 03/09/24 11:46 BP 157/78 H 03/09/24 11:46 Pulse Ox 99 03/09/24 11:46 O2 Del Method Room Air 03/09/24 11:46 BMI result Body Mass Index 27.3 GENERAL APPEARANCE: in no acute distress, pleasant. NECK: no carotid bruit, no jugular venous distention. SKIN: no suspicious lesions, warm and dry. HEART: Late systolic murmur at the apex, regular rate and rhythm. LUNGS: clear to auscultation bilaterally. ABDOMEN: soft, nontender. EXTREMITIES: no edema. Left ankle wound currently dressed. PERIPHERAL PULSES: equal. NEUROLOGIC: No gross deficits, AAO X 3 Objective Labs and Meds 03/06/24 06:37 03/09/24 07:35 Lab results: Laboratory Results - last 24 hr 03/08/24 03/09/24 03/09/24 21:04 07:35 09:40 Hold Purple Top SEE NOTE Creatinine 0.94 Estim Creat Clear Calc 79.0 Estimated GFR > 60 POC Glucose 166 H Random Vancomycin 14.1 L 03/09/24 11:14 Hold Purple Top Creatinine Estim Creat Clear Calc Estimated GFR POC Glucose 142 H Random Vancomycin Assessment and Plan (1) Bacteremia due to Staphylococcus: Status: Acute Plan Pleasant 74-year-old gentleman with background history of mitral valve prolapse presenting with MSSA bacteremia due to wound infection on the left foot. On antibiotics and his cultures are cleared already. ECHO did not raise any obvious concern for vegetation. With myxomatous valve disease the valve leaflets appear thickened which is not unusual. Also with antibiotics his blood cultures have cleared and he has a clear source on the left foot as potential nidus for infection. Continue antibiotics as per ID recommendations. Currently no obvious concern for endocarditis and no JAIME is recommended. Thank you for allowing me to participate in the care of your patient. Please feel free to contact me if you have any questions. Procedures Date of Service Date of Service: 03/09/24
--- NOTE | 2024-03-09 12:29 | HO.WOUND ---
Wound Consult: Initial 74yr old?Male admitted to [facility] on 03/04/24 - See progress notes and H&P for detailed history.? Wound consult placed for Left Plantar Diabetic Wound.? Patient agreeable to assessment and photo documentation.? The left foot was assessed +pp noted - pt reports neuropathy and denies any feeling and is unaware of hoe he originally got this wound to the plantar area. Assessment reveals soft thick callused tissue - easily lifted revealing two small wound beds. They appear clean and do not appear infected at this time. They will likley lbeneft from calluse removal to allow for proper wound healing. Of note the patient does follow [facility] the outpatient wound clinic for the left foot wound. Dr. Yao notified of the wounds and she will consider if she will consult surgery to [facility] inpatient or if patient will have the callus treated at his next follow up appointment with outpt wound center. Left Plantar Foot Etiology: ??Diabetic Wound Measurements: see charting for details Wound Bed: two areas of red moisy clean tissue noted Drainage / Odor: sero sang drainage noted no odor Edges: ? irregular and callused Maryuri wound: ?red pink slight purple noted - not warm to touch and No Induration, Fluctuance noted Pain: patient denies pain Goals of Treatment: ? Callus pare down - Durafiber AG for moisture management and antimicrobial properties. follow up with outpt wound clinic Recommendations: 1. Turn and Reposition every 2 hours and as needed for patient comfort.? Use pillows or wedges to support off loading positions. 2. Off Load all bony prominences with use of pillows and heel boots if needed.? Apply Preventative foams where needed. ? 3. Monitor for incontinence and moisture control, use barrier creams when needed for prevention and treatment. 4. Provide adequate and supplemental nutrition.? 5. When applicable maintain blood glucose levels per Providers order. 6. Left Plantar - Cleanse and irrigate with NS wound wash, pat dry. lightly pack wound beds with cut to size Durafiber AG cover with foam dressing. Change every other day. Recommend follow up out patient Wound Clinic at [address] [place] [id number] and to call for an appointment at time of discharge. [phone].? Re-consult wound care Nurse for wound deterioration or wound changes.
--- NOTE | 2024-03-09 13:50 | HO.PM.IMPN ---
Subjective Subjective Date of Service: 03/09/24 Interval History: Being followed for MSSA bacteremia , patient denies fever, no chills denies foot pain due to neuropathy, tolerating diet, no nausea, no vomiting, no other acute issues overnight. Constitutional All other system reviewed and negative Physical Exam Vital Signs: Vital Signs: Last Vital Signs Temp 97.2 F 03/09/24 11:46 Pulse 69 03/09/24 11:46 Resp 20 03/09/24 11:46 BP 157/78 H 03/09/24 11:46 Pulse Ox 99 03/09/24 11:46 O2 Del Method Room Air 03/09/24 11:46 BMI result Body Mass Index 27.3 Const: Other: General alert oriented x3, resting comfortably in no acute distress. Neck supple, no JVD. CVS regular rate rhythm, Respiratory lungs clear to auscultation, no respiratory distress, no wheeze, no rhonchi. Gastrointestinal abdomen soft, non tender, bowel sounds audible, no guarding , no rigidity. Extremities no edema. Neuro non focal , speech clear. Left foot plantar surface dry callus, no tenderness, no surrounding redness. Skin /dry skin/moist rash under breasts improving, Objective Data Active Medications Acetaminophen (Acetaminophen Supp 325 Mg Supp.Rect) 975 mg NE Q6H PRN PRN Reason: Pain, Mild (Pain Scale 1-3) Last Admin: 03/05/24 00:11 Dose: 975 mg Documented By: STANLEY Apixaban (Apixaban 5 Mg Tablet) 5 mg PO BID [facility] Last Admin: 03/04/24 20:58 Dose: 5 mg Documented By: STANLEY Cyanocobalamin (Cyanocobalamin (Vitamin B-12) 500 Mcg Tablet) 500 mcg PO DAILY [facility] Last Admin: 03/09/24 09:00 Dose: 500 mcg Documented By: TORREY Finasteride (Finasteride 5 Mg Tablet) 5 mg PO BEDTIME [facility] Last Admin: 03/08/24 20:45 Dose: 5 mg Documented By: SHAMAR Cefazolin Sodium 1 gm/ Sodium (Chloride) 50 mls @ 100 mls/hr IV Q8H [facility] Last Infusion: 03/09/24 09:30 Dose: Infused Documented By: TORREY Metoprolol Tartrate (Metoprolol Tartrate 50 Mg Tablet) 50 mg PO BID [facility]; Protocol Last Admin: 03/09/24 09:00 Dose: 50 mg Documented By: TORREY Nystatin (Nystatin Powder 15 Gm Bottle) 1 appl TOPICAL BID [facility]; Protocol Last Admin: 03/09/24 09:00 Dose: 1 appl Documented By: TORREY Sodium Chloride (0.9 % Sodium Chloride Flush 3 Ml Syringe) 3 ml IVFLUSH QSHIFT [facility] Last Admin: 03/09/24 07:41 Dose: Not Given Documented By: TORREY Non-Admin Reason: Previously Administered Tamsulosin HCl (Tamsulosin Hcl 0.4 Mg Capsule) 0.4 mg PO BEDTIME [facility] Last Admin: 03/08/24 20:45 Dose: 0.4 mg Documented By: SHAMAR Vitamin D (Cholecalciferol (Vitamin D3) 25 Mcg Tablet) 25 mcg PO DAILY [facility] Last Admin: 03/09/24 09:00 Dose: 25 mcg Documented By: TORREY Labs 03/06/24 06:37 03/09/24 07:35 Labs: Laboratory Results - last 24 hr 03/08/24 03/09/24 03/09/24 21:04 07:35 09:40 Hold Purple Top SEE NOTE Estim Creat Clear Calc 79.0 Estimated GFR > 60 POC Glucose 166 H Random Vancomycin 14.1 L 03/09/24 11:14 Hold Purple Top Estim Creat Clear Calc Estimated GFR POC Glucose 142 H Random Vancomycin Microbiology Microbiology Results: Microbiology 03/08/24 09:34 Blood Culture - Preliminary Blood - Venous No growth after 24 hours. 03/08/24 09:09 Blood Culture - Preliminary Blood - Venous No growth after 24 hours. Assessment and Plan (1) Bacteremia due to Staphylococcus: Status: Acute Plan Shashank Fregoso is a 74 years old man with PMHx significant for MSSA bacteremia admitted with pyelonephritis Sepsis due to MSSA bacteremia Afebrile, normal WBC, offers no acute complaints. UA unremarkable, normal chest x-ray, normal foot x-ray, no evidence of cellulitis, lactic acid 2,CRP 3.07. 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 Alexander since blood cultures have cleared and no vegetation suspected therefore JAIME not recommended Repeat blood cultures x2 are negative. Case discussed with ID she recommend to obtain CT foot likely cause of infection to rule out osteo to decide duration of antibiotics. Will discuss duration of antibiotics with ID. Mild acute hyponatremia. Resolved with volume repletion,follow lab History of chronic urinary retention with bilateral hydronephrosis Davis catheter removed patient voiding without difficulty, continue tamsulosin and finasteride. Outpatient urology follow-up Chronic persistent AFib. Continue metoprolol and Eliquis. Chronic left foot ulcer. X-ray foot showed no acute osseous abnormality, seen by wound nurse will follow their recommendation Recommendations: 1. Turn and Reposition every 2 hours and as needed for patient comfort.? Use pillows or wedges to support off loading positions. 2. Off Load all bony prominences with use of pillows and heel boots if needed.? Apply Preventative foams where needed. ? 3. Monitor for incontinence and moisture control, use barrier creams when needed for prevention and treatment. 4. Provide adequate and supplemental nutrition.? 5. When applicable maintain blood glucose levels per Providers order. 6. Left Plantar - Cleanse and irrigate with NS wound wash, pat dry. lightly pack wound beds with cut to size Durafiber AG cover with foam dressing. Change every other day. Recommend follow up out patient Wound Clinic at [address] [place] [address] and to call for an appointment at time of discharge. [phone].? Chronic anemia. stable hematocrit Nicole intertrigo placed on nystatin powder b.i.d. under breast DVT prophylaxis: Eliquis Code status: Full Patient will need continued inpatient hospitalization for IV antibiotic therapy and for follow-up on ct foot and expert consultation. Quality Stroke Does the patient have a stroke diagnosis?: No VTE Prior VTE?: No VTE Risk Level:: Medical - moderate - high VTE Device Contraindication: Treatment Not Indicated VTE Drug Contraindication: N/A - Med Ordered
[2024-03-09] MEDS: iohexoL 350 MG/ML 100 ML INFUS..BTL IV (15:37)
[2024-03-09 16:36] LABS: Glucose, Whole Blood 146 mg/dL (60-115)
[2024-03-09] MEDS: Tamsulosin HCL 0.4 MG CAPSULE PO (20:45)
[2024-03-09] MEDS: Finasteride 5 MG TABLET PO (20:45)
[2024-03-09] MEDS: 0.9 % Sodium Chloride Flush 3 ML SYRINGE IVFLUSH (20:51)
[2024-03-09 21:27] LABS: Glucose, Whole Blood 142 mg/dL (60-115)
[2024-03-10] VITALS (8 sets, daily range): BP systolic 149–183; BP diastolic 62–82; PULSE 64–79; RESP 18–20; TEMP 35.8–37.6; O2SAT 94–98
[2024-03-10 06:15] LABS: Creatinine Clr Calc Pharmacy 84.4; Estimated Glomerular Filt Rate > 60
[2024-03-10 07:56] LABS: Glucose, Whole Blood 134 mg/dL (60-115)
[2024-03-10] MEDS: Cyanocobalamin (Vitamin B-12) 500 MCG TABLET PO (08:49)
[2024-03-10] MEDS: Cholecalciferol (Vitamin D3) 25 MCG TABLET PO (08:49)
[2024-03-10] MEDS: Metoprolol Tartrate 50 MG TABLET PO ×2 (08:49→21:37)
[2024-03-10] MEDS: 0.9 % Sodium Chloride Flush 3 ML SYRINGE IVFLUSH (08:51)
[2024-03-10] MEDS: Nystatin Powder 15 GM BOTTLE 1 APPL TOPICAL (08:51)
[2024-03-10 11:19] LABS: Glucose, Whole Blood 134 mg/dL (60-115)
--- NOTE | 2024-03-10 13:46 | MHC.CM.PN ---
EMR REVIEWED, CM MET W/PT WHO REPORTED HE WANTS TO GO HOME [facility]VER PT NEEDS 4WKS IV ABX AND PT IS UNABLE TO DO THEM ON HIS OWN D/T NUEROPATHY IN HANDS, PT ALSO REPORTS HIS BROTHER WOULD BE UNABLE TO ASSIST D/T HIS OWN MEDICAL ISSUES. PT REPORTS HE WENT TO [facility] ABOUT 4YRS AGO FOR THE SAME ISSUE AND WILL GO TO [facility] AGAIN. PT IN IR FOR MIDLINE AT TIME OF THIS NOTE HOWEVER FACILITY UNABLE TO TAKE PT UNTIL TOMORROW, MORNING, PT PREBOOKED FOR 11AM. HOSPITALIST/NSG AWARE
--- NOTE | 2024-03-10 14:17 | HO.PM.IMPN ---
Subjective Subjective Date of Service: 03/10/24 Interval History: Being followed for emesis and bacteremia. Patient sitting comfortably offers no acute complaints, denies fever, no chills, no foot pain no other acute events overnight. Review of Systems All other system reviewed and negative. Physical Exam Vital Signs: Vital Signs: Last Vital Signs Temp 96.4 F L 03/10/24 11:58 Pulse 77 03/10/24 11:58 Resp 18 03/10/24 11:58 BP 166/62 H 03/10/24 11:58 Pulse Ox 97 03/10/24 11:58 O2 Del Method Room Air 03/10/24 11:58 BMI result Body Mass Index 27.3 Const: Other: General alert oriented x3, resting comfortably in no acute distress. Neck supple, no JVD. CVS regular rate rhythm, Respiratory lungs clear to auscultation, no respiratory distress, no wheeze, no rhonchi. Gastrointestinal abdomen soft, non tender, bowel sounds audible, no guarding , no rigidity. Extremities no edema. Neuro non focal , speech clear. Left foot plantar surface dry callus, no tenderness, no surrounding redness. Skin /dry skin/moist rash under breasts improving, Objective Data Active Medications Acetaminophen (Acetaminophen Supp 325 Mg Supp.Rect) 975 mg NE Q6H PRN PRN Reason: Pain, Mild (Pain Scale 1-3) Last Admin: 03/05/24 00:11 Dose: 975 mg Documented By: STANLEY Apixaban (Apixaban 5 Mg Tablet) 5 mg PO BID [facility] Last Admin: 03/04/24 20:58 Dose: 5 mg Documented By: STANLEY Cyanocobalamin (Cyanocobalamin (Vitamin B-12) 500 Mcg Tablet) 500 mcg PO DAILY [facility] Last Admin: 03/10/24 08:49 Dose: 500 mcg Documented By: ANUPAM Finasteride (Finasteride 5 Mg Tablet) 5 mg PO BEDTIME [facility] Last Admin: 03/09/24 20:45 Dose: 5 mg Documented By: STANLEY Cefazolin Sodium 1 gm/ Sodium (Chloride) 50 mls @ 100 mls/hr IV Q8H [facility] Metoprolol Tartrate (Metoprolol Tartrate 50 Mg Tablet) 50 mg PO BID [facility]; Protocol Last Admin: 03/10/24 08:49 Dose: 50 mg Documented By: ANUPAM Nystatin (Nystatin Powder 15 Gm Bottle) 1 appl TOPICAL BID [facility]; Protocol Last Admin: 03/10/24 08:51 Dose: 1 appl Documented By: ANUPAM Sodium Chloride (0.9 % Sodium Chloride Flush 3 Ml Syringe) 3 ml IVFLUSH QSHIFT [facility] Last Admin: 03/10/24 08:51 Dose: 3 ml Documented By: ANUPAM Tamsulosin HCl (Tamsulosin Hcl 0.4 Mg Capsule) 0.4 mg PO BEDTIME [facility] Last Admin: 03/09/24 20:45 Dose: 0.4 mg Documented By: BELOTILIATC Vitamin D (Cholecalciferol (Vitamin D3) 25 Mcg Tablet) 25 mcg PO DAILY [facility] Last Admin: 03/10/24 08:49 Dose: 25 mcg Documented By: ANUPAM Labs 03/06/24 06:37 03/10/24 05:40 Labs: Laboratory Results - last 24 hr 03/09/24 03/09/24 03/10/24 16:31 20:46 05:40 Estim Creat Clear Calc 84.4 Estimated GFR > 60 POC Glucose 146 H 142 H 03/10/24 03/10/24 07:52 11:09 Estim Creat Clear Calc Estimated GFR POC Glucose 134 H 134 H Microbiology Microbiology Results: Microbiology 03/08/24 09:34 Blood Culture - Preliminary Blood - Venous No growth after 48 hours. 03/08/24 09:09 Blood Culture - Preliminary Blood - Venous No growth after 48 hours. Assessment and Plan (1) Bacteremia due to Staphylococcus: Status: Acute Plan Shashank Fregoso is a 74 years old man with PMHx significant for MSSA bacteremia admitted with pyelonephritis Sepsis due to MSSA bacteremia Afebrile, normal WBC, offers no acute complaints. UA unremarkable, normal chest x-ray, normal foot x-ray, no evidence of cellulitis, lactic acid 2,CRP 3.07. 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 Alexander since blood cultures have cleared and no vegetation suspected therefore JAIME not recommended Repeat blood cultures x2 are negative. CT foot showed no osteomyelitis, case discussed with ID she recommend 4 weeks of IV cefazolin/order midline patient will be transferred to rehab facility to finish course of antibiotics Mild acute hyponatremia. Resolved with volume repletion,follow lab History of chronic urinary retention with bilateral hydronephrosis Davis catheter removed patient voiding without difficulty, continue tamsulosin and finasteride. Outpatient urology follow-up Chronic persistent AFib. Continue metoprolol and Eliquis. Chronic left foot ulcer. X-ray foot showed no acute osseous abnormality, seen by wound nurse will follow their recommendation Recommendations: 1. Turn and Reposition every 2 hours and as needed for patient comfort.? Use pillows or wedges to support off loading positions. 2. Off Load all bony prominences with use of pillows and heel boots if needed.? Apply Preventative foams where needed. ? 3. Monitor for incontinence and moisture control, use barrier creams when needed for prevention and treatment. 4. Provide adequate and supplemental nutrition.? 5. When applicable maintain blood glucose levels per Providers order. 6. Left Plantar - Cleanse and irrigate with NS wound wash, pat dry. lightly pack wound beds with cut to size Durafiber AG cover with foam dressing. Change every other day. Recommend follow up out patient Wound Clinic at [address] [place] [id number] and to call for an appointment at time of discharge. [phone].? Chronic anemia. stable hematocrit Nicole intertrigo placed on nystatin powder b.i.d. under breast DVT prophylaxis: Eliquis Code status: Full Patient will need continued inpatient hospitalization for IV antibiotic therapy and for safe disposition. Quality Stroke Does the patient have a stroke diagnosis?: No VTE Prior VTE?: No VTE Risk Level:: Medical - moderate - high VTE Device Contraindication: Treatment Not Indicated VTE Drug Contraindication: N/A - Med Ordered
[2024-03-10] MEDS: Tamsulosin HCL 0.4 MG CAPSULE PO (21:37)
[2024-03-10] MEDS: Finasteride 5 MG TABLET PO (21:42)
[2024-03-10 21:44] LABS: Glucose, Whole Blood 147 mg/dL (60-115)
[2024-03-11 04:00] VITALS: BP 168/74; PULSE 70; RESP 20; TEMP 37.3; O2SAT 94
[2024-03-11] MEDS: 0.9 % Sodium Chloride Flush 3 ML SYRINGE IVFLUSH ×2 (05:06→08:21)
[2024-03-11 06:53] LABS: Creatinine Clr Calc Pharmacy 79.9; Estimated Glomerular Filt Rate > 60
[2024-03-11 07:40] VITALS: BP 159/73; PULSE 66; RESP 16; TEMP 36.2; O2SAT 95
[2024-03-11 07:45] LABS: Glucose, Whole Blood 136 mg/dL (60-115)
[2024-03-11 08:15] VITALS: BP 159/73; PULSE 66; O2SAT 95
[2024-03-11] MEDS: Metoprolol Tartrate 50 MG TABLET PO (08:21)
[2024-03-11] MEDS: Cyanocobalamin (Vitamin B-12) 500 MCG TABLET PO (08:21)
[2024-03-11] MEDS: Cholecalciferol (Vitamin D3) 25 MCG TABLET PO (08:22)
[2024-03-11] MEDS: Nystatin Powder 15 GM BOTTLE 1 APPL TOPICAL (08:22)
--- NOTE | 2024-03-11 09:20 | HO.MIDLINE_ITS ---
Midline Insertion MIDLINE INSERTION Diagnosis: Bacteremia Indication: salvage determiner antibiotics needed Pertinent Labs: reviewed Technique: Using sterile technique including cap and mask, glove and drape, the right arm was prepped and draped in the usual sterile fashion of full barrier technique with CHG. Using ultrasound guidance, Right brachial vein access was obtained on first attempt. A 20G X 8CM non-PASV Midline was positioned. The procedure was performed in S272. Ultrasound was used to document vein patency and for needle entry. A formal ultrasound picture was recorded. [employer] has released the line for use and it is currently dressed with a StatLock, Tegaderm, and CHG disc. Verification has been performed for blood return and line patency. Arm Circumference: 32CM Equipment: BARD PowerGlide ST Midline Catheter Type: 20G X 8CM non-PASV Midline Lot #: [id number]
--- NOTE | 2024-03-11 10:33 | MHC.CM.PN ---
Addendum entered by Kamille Gaytan 03/11/24 11:32: CM CALLED PTS BROTHER, VICENTE [phone] AND UPDATED HIM ON THE DC TIME Original Note: CM MET WITH PT TO DISCUSS DC PLANNING. PT IS AWARE HE WILL DC TO [facility] TODAY DC TIME CHANGED TO 1230 SO THAT PT COULD GET A DOSE OF HIS ABX PRIOR TO DC DBV WILL ORDER THE MEDS THIS MORNING AND HAVE THEM ON HAND FOR HIS EVENING DOSE PT WILL DC TO [facility] TODAY VIA [facility] AT 120 HOURS
--- NOTE | 2024-03-11 10:43 | P.DS_ITS ---
DS: Providers Provider Date of Service: 03/11/24 Date of admission: 03/04/24 00:20 Primary care physician: Ramin Medrano MD Consults: 03/04/24 00:57 Consult to Urology Routine Consulting Provider: David Boateng Reason for consultation: UTI,sepsis,outlet obstruction Has provider been notified: Yes 03/04/24 01:01 Consult to Wound Care Routine Reason for consultation: Left plantar ulcer 03/05/24 00:03 Consult to Pulmonology Routine Consulting Provider: [facility] [facility] Reason for consultation: Hx tobacco smoking. SOB X1 wk, cough Has provider been notified: No 03/08/24 08:44 Consult to Infectious Diseases Routine Consulting Provider: [facility] [place] [facility] Reason for consultation: gm pos bacteremia Has provider been notified: No 03/09/24 07:41 Consult to Cardiology Routine Consulting Provider: [facility] [place] [facility] Reason for consultation: bacteremia /mitral valve myxomatous Has provider been notified: No DS: Diagnosis Discharge Diagnosis (1) Bacteremia due to Staphylococcus: Status: Acute DS: Summary Hospital Course Hospital Course: Date of Service: 03/04/24 Attending physician on admission: Antonette Singh Chief Complaint: High temperature Shashank Fregoso is a 74 years old man with a past medical history significant for MSSA bacteremia, BPH, chronic atrial fibrillation on Eliquis and chronic left foot ulcer (plantar) was brought to the emergency department by EMS where he was found to have elevated temperature. Patient denied any symptoms such as headache, sore throat, shortness on breath, abdominal pain, nausea, vomiting, diarrhea or dizziness. He reported a very occasional dry cough. He denies pain with urination but noted urinary frequency. He was told by his brother that he was having a fever but he has not aware of it. He mentioned that he has been admitted in the past for sepsis. In the ED, he was found to have tachycardia, fever (max temp is 101.5) and tachypnea. O2 sats are normal on room air. Blood workup showed no leukocytosis, bandemia or lactic acidosis. There is slight hyponatremia. LFTs are normal. Creatinine is 1.12. BNP is 53. Urinalysis showed finding consistent with urinary tract infection and microscopic hematuria. Viral testing for influenza, RSV and COVID-19 is negative. Left foot x-rays three views showed no acute osseous abnormality. Abdomen pelvis CT scan with IV contrast showed mild bilateral hydronephrosis and urethral dilation, thick wall trabeculated bladder suggestive of bladder outlet obstruction, mild fatty infiltration of the liver, cholelithiasis and constipation. ED tx: Ceftriaxone 2 g, acetaminophen 975 mg p.o. + 650 mg x 2, NS 2 L bolus, metoprolol 2.5 mg IV and Zofran 4 mg IV. 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 Alexander from Cardiology since blood culture cleared and no vegetation suspected therefore nicola was not recommended CT scan of the foot showed no osteomyelitis , Infectious Disease Dr. Gomez recommended 4 weeks of IV antibiotic Repeat blood cultures came back negative patient is now being discharged to rehab to finish 4 weeks course of antibiotics, midline placed this morning, likely source of bacteremia is likely foot infection Mild acute hyponatremia. Resolved with volume repletion History of chronic urinary retention with bilateral hydronephrosis recommend to continue Flomax and finasteride and follow-up with Urology as outpatient Chronic persistent AFib. In sinus rhythm, Continue metoprolol and Eliquis. Chronic left foot ulcer. X-ray foot showed no acute osseous abnormality, CT foot showed no osteomyelitis, seen by wound nurse with following recommendations 1. Turn and Reposition every 2 hours and as needed for patient comfort.? Use pillows or wedges to support off loading positions. 2. Off Load all bony prominences with use of pillows and heel boots if needed.? Apply Preventative foams where needed. ? 3. Monitor for incontinence and moisture control, use barrier creams when needed for prevention and treatment. 4. Provide adequate and supplemental nutrition.? 5. When applicable maintain blood glucose levels per Providers order. 6. Left Plantar - Cleanse and irrigate with NS wound wash, pat dry. lightly pack wound beds with cut to size Durafiber AG cover with foam dressing. Change every other day. Recommend follow up out patient Wound Clinic at [address] [place] [phone] and to call for an appointment at time of discharge. [phone].? Chronic anemia. stable hematocrit Nicole intertrigo on nystatin powder b.i.d. under breast Time Attestation Discharge Coordination Time (in mins): 36 5 Quality: Safe Use of Opioids Does Pt have an Active Cancer Diagnosis on the Problem List?: No Quality: Stroke Does the patient have a stroke diagnosis?: No Physical Exam Vital Signs: Vital Signs: Last Vital Signs Temp 97.2 F 03/11/24 07:40 Pulse 66 03/11/24 08:15 Resp 16 03/11/24 07:40 BP 159/73 H 03/11/24 08:15 Pulse Ox 95 03/11/24 08:15 O2 Del Method Room Air 03/11/24 07:40 BMI result Body Mass Index 27.3 Const: Other: General alert oriented x3, resting comfortably in no acute distress. Neck supple, no JVD. CVS regular rate rhythm, Respiratory lungs clear to auscultation, no respiratory distress, no wheeze, no rhonchi. Gastrointestinal abdomen soft, non tender, bowel sounds audible, no guarding , no rigidity. Extremities no edema. Neuro non focal , speech clear. Left foot plantar surface dry callus, no tenderness, no surrounding redness. Skin /dry /moist rash under breasts improving, DS: Data Data Completed and Pending Completed studies during hospitalization [Text1]: Procedures Detachment at Left 1st Toe, Complete, Open Approach (01/23/21) Detachment at Left 2nd Toe, Low, Open Approach (10/10/20) Detachment at Left 3rd Toe, Complete, Open Approach (01/13/22) Dilation of Left Posterior Tibial Artery, Percutaneous Approach (01/23/21) Excision of Left Foot Skin, External Approach (01/23/21) Insertion of Infusion Device into Superior Vena Cava, Percutaneous Approach (01/13/22) Labs on day of discharge: Laboratory Results - last 24 hr 03/10/24 03/10/24 03/11/24 11:09 21:38 06:15 Creatinine 0.93 Estim Creat Clear Calc 79.9 Estimated GFR > 60 POC Glucose 134 H 147 H 03/11/24 07:41 Creatinine Estim Creat Clear Calc Estimated GFR POC Glucose 136 H Preliminary micro results at discharge 03/08/24 09:34 Blood Culture - Preliminary Blood - Venous No growth after 48 hours. 03/08/24 09:09 Blood Culture - Preliminary Blood - Venous No growth after 48 hours. Discharge Plan Discharge Anticipated Discharge Date/Time: 03/11/24 10:29 Patient Disposition: Xfer SNF Discharge Diagnosis: Sepsis due to MSSA bacteremia Chronic left foot ulcer Referrals: [facility] [Outside] - 1 Day (SHORT TERM REHAB) Ramin Medrano MD [Primary Care Provider] - 1 Week Discharge Medications: New nystatin 100,000 unit/gram Powder 1 appl topical BID Qty: 15 0RF Protocol: Apply to: Apply to: reash under breast Continued metoprolol tartrate 50 mg tablet 50 mg PO BID 90 Days Qty: 180 3RF Eliquis 5 mg tablet 5 mg PO BID Qty: 180 3RF Hold Instructions: Resume on 10/12/20. Resume taking your Eliquis on 10/12/2020, after your visit with the visiting nurse. cyanocobalamin (vitamin B-12) 500 mcg Tablet 500 mcg PO DAILY tamsulosin 0.4 mg capsule 0.4 mg PO BEDTIME cholecalciferol (vitamin D3) 25 mcg (1,000 unit) Tablet 25 mcg PO DAILY (DME) lancets 28 gauge misc See Rx Instructions topical DAILY Qty: 100 Rx Instructions: As directed finasteride 5 mg tablet 5 mg PO BEDTIME 90 Days Qty: 90 1RF Discontinued aspirin [Aspir-81] 81 mg Tablet,Delayed Release (Dr/Ec) 81 mg PO DAILY Discharge Orders: Discharge Order (Routine); Ordered 03/11/24 Ordered By: Deisy Yao Diet: Advance to usual diet Activity on Discharge: As tolerated Stand Alone Forms: Patient Portal Discharge page Print Language: Latvian Activity Restrictions/Additional Instructions: Topical Wound Care Recommendations: Left Plantar - Cleanse and irrigate with NS wound wash, pat dry. lightly pack wound beds with cut to size Durafiber AG cover with foam dressing. Change every other day. Recommend follow up out patient Wound Clinic at [address] [place] [phone] and to call for an appointment at time of discharge. [phone].? Care Plan Goals: Continue IV cefazolin 1 g q.8 hours through April 05 for total 4 weeks of IV antibiotics midline in place Health Concerns: atrial fibrillation continue home medication Plan of Treatment: Outpatient follow-up with primary care physician/Cardiology and Urology as previously planned Assessment: As above
[2024-03-11 11:47] VITALS: BP 166/70; PULSE 67; RESP 16; TEMP 36.2; O2SAT 97
[2024-03-11 11:48] LABS: Glucose, Whole Blood 159 mg/dL (60-115)
== END 2024-03-11 13:00 | disposition skilled nursing facility (03) | DRG 872 ==
LOC: HO.ED 18:22 → HO.EDOVER 03-04 01:28 → HO.IMC 03-04 08:22
PROVIDERS: Nurse Practitioner Family; Admitting Provider Internal Medicine; Emergency Provider Emergency Medicine; PCP Internal Medicine; Visit Provider Hospitalist
DX: A41.01 Sepsis due to Methicillin susceptible Staphylococcus aureus (principal); N13.6 Pyonephrosis; N13.8 Other obstructive and reflux uropathy; E87.1 Hypo-osmolality and hyponatremia; M62.82 Rhabdomyolysis; I48.19 Other persistent atrial fibrillation; L97.429 Non-pressure chronic ulcer of left heel and midfoot with unspecified severity; E11.51 Type 2 diabetes mellitus with diabetic peripheral angiopathy without gangrene; E11.621 Type 2 diabetes mellitus with foot ulcer; I34.1 Nonrheumatic mitral (valve) prolapse; R31.9 Hematuria, unspecified; B37.2 Candidiasis of skin and nail; E86.0 Dehydration; E11.40 Type 2 diabetes mellitus with diabetic neuropathy, unspecified; Z20.822 Contact with and (suspected) exposure to COVID-19; N40.1 Benign prostatic hyperplasia with lower urinary tract symptoms; Z79.01 Long term (current) use of anticoagulants; Z79.899 Other long term (current) drug therapy
CPT/HCPCS: 0241U; 36410; 36415; 71046; 73630; 73701; 74177; 80048; 80053; 80202; 81001; 82550; 82565; 82947; 83605; 83735; 83880; 85025; 85610; 86140; 87040; 87077; 87086; 87186; 87205; 93005; 93306; 97110; 97116; 97162; 99285; C1758; C9113; J0690; J0696; J2405; J3370; J3371; J7120; Q9957; Q9967

== ENCOUNTER → 2024-03-03 18:21 | Outpatient (BNV) | payer MEDICARE, BC, SELFPAY | PROVIDERS: Emergency Provider Emergency Medicine; PCP Internal Medicine; Visit Provider Internal Medicine | DX: R78.81 Bacteremia (principal); B95.8 Unspecified staphylococcus as the cause of diseases classified elsewhere | CPT/HCPCS: 99223; 99232; 99233; 99239; 99499 ==

== ENCOUNTER → 2024-03-03 22:28 | Outpatient (BNV) | payer MEDICARE, BC, SELFPAY | PROVIDERS: Admitting Provider Internal Medicine; Emergency Provider Emergency Medicine; PCP Internal Medicine; Visit Provider Internal Medicine | DX: I49.1 Atrial premature depolarization (principal); R00.0 Tachycardia, unspecified | CPT/HCPCS: 93010 ==

== ENCOUNTER 2024-03-04 00:20 | Outpatient (BNV) | payer MEDICARE, BC, SELFPAY | END 2024-03-07 07:00 | PROVIDERS: Admitting Provider Internal Medicine; Emergency Provider Emergency Medicine; PCP Internal Medicine; Visit Provider Internal Medicine Cardiovascular Disease | DX: I34.1 Nonrheumatic mitral (valve) prolapse (principal); I34.0 Nonrheumatic mitral (valve) insufficiency; I34.81 Nonrheumatic mitral (valve) annulus calcification | CPT/HCPCS: 93306 ==

== ENCOUNTER → 2024-03-04 00:20 | Outpatient (BNV) | payer MEDICARE, BC, SELFPAY | PROVIDERS: Admitting Provider Internal Medicine; Emergency Provider Emergency Medicine; PCP Internal Medicine; Visit Provider Internal Medicine Cardiovascular Disease | DX: R78.81 Bacteremia (principal); B95.8 Unspecified staphylococcus as the cause of diseases classified elsewhere | CPT/HCPCS: 99222 ==

== ENCOUNTER → 2024-03-04 00:20 | Outpatient (BNV) | payer MEDICARE, BC, SELFPAY | PROVIDERS: Admitting Provider Internal Medicine; Emergency Provider Emergency Medicine; PCP Internal Medicine; Visit Provider Internal Medicine Pulmonary Disease | DX: A41.9 Sepsis, unspecified organism (principal); R78.81 Bacteremia; B95.8 Unspecified staphylococcus as the cause of diseases classified elsewhere | CPT/HCPCS: 99222 ==

== ENCOUNTER → 2024-03-04 00:20 | Outpatient (BNV) | payer MEDICARE, BC, SELFPAY | PROVIDERS: Admitting Provider Internal Medicine; Emergency Provider Emergency Medicine; PCP Internal Medicine; Visit Provider Internal Medicine | DX: R78.81 Bacteremia (principal); A41.9 Sepsis, unspecified organism; B95.8 Unspecified staphylococcus as the cause of diseases classified elsewhere | CPT/HCPCS: 99222 ==

== ENCOUNTER 2024-04-20 13:25 | Outpatient (AMB) | payer MEDICARE, BC, SELFPAY ==
--- NOTE | 2024-04-20 13:26 | A.OFFVIS_ITS ---
Vital Signs 3 04/20/24 13:37 Weight 191 lb Pulse 107 H Pulse Source Pulse Oximeter Temp 98.3 F Temp Source Oral Pulse Oximetry (%) 98 Oxygen Delivery Method Room Air Intake Visit Reasons: reff [facility] [place] follow up Allergies penicillin V Allergy (Intermediate, Verified 04/20/24 13:37) rash amoxicillin Allergy (Verified 04/20/24 13:37) Unknown Erythromycin Allergy (Intermediate, Uncoded 02/08/24 06:31) diarrhea HPI HPI reff [facility] [place] follow up: Details: He has had MSSA bacteremia. He has been on IV Kefzol. He has treatment endocarditis. He has cellulitis,no OM. [facility] Medical History Bladder outlet obstruction Psoriasis Sepsis Elevated cholesterol Anemia BPH (benign prostatic hyperplasia) Diabetes Vitamin D deficiency Neuropathy HTN (hypertension) Chronic a-fib Amputation of great toe Osteomyelitis PVD (peripheral vascular disease) Amputation of toe of left foot Pre-diabetes History of neuropathy Arrhythmia Osteomyelitis of second toe of left foot Ulcer of left second toe Amputated toe of right foot History of heart valve abnormality Surgical History History of amputation of toe Status post amputation of toe Hx of amputation Status post ORIF of fracture of ankle Family History Mother CAD (coronary artery disease) Social History Household Members: Family Housing: House Are you a primary home health care case manager to a significant other at home: No Do you presently have visiting nurse or other home services: Yes ([facility] for foot dressings) Alcohol intake: never Comment: scheduled med Patient Tobacco Use Status: Never used Tobacco Second Hand Smoke Exposure: No Advance Directives Date on File: 08/07/20 service: No Current occupational status: retired Review of Systems Const All systems reviewed & are unremarkable except as noted in HPI and below Physical Exam Vital Signs: Last Vital Signs Temp 98.3 F 04/20/24 13:37 Pulse 107 H 04/20/24 13:37 Pulse Ox 98 04/20/24 13:37 Oxygen Delivery Method Room Air 06/19/24 13:37 Const Other: General: cooperative Orientation/consciousness: patient oriented x3 HEENT Head: Yes normal to inspection Mouth: Normal oral and palatal mucosa present Eyes General: appearance normal, both eyes and all related structures Pupils: Equal, round and reactive pupils present Resp Effort & Inspection: normal respiratory effort Cardio Rate: regular rate Rhythm: regular rhythm GI Palpation (GI): Soft to palpation and nontender General: Yes no CVA tenderness Back/Spine/Pelvis Back: no CVA tenderness Skin General skin exam: no rashes or lesions noted Neuro General: patient oriented x3 Cranial nerves: Yes CN's II-XII intact bilaterally and Yes Equal, round and reactive pupils present Extrem General: Yes normal to inspection Psych Appearance: grossly normal Assessment & Plan Assessment & Plan (1) Bacteremia due to Staphylococcus: Comment: He is doing well Code(s): R78.81 - Bacteremia; B95.8 - Unspecified staphylococcus as the cause of diseases classified elsewhere Category: Medical Plan: Would finish IV Kefzol No po at this time. See prn need. Orders: Orders 2 Blood Culture X2 04/20/24 R78.81 - Bacteremia, B95.8 - Unspecified staphylococcus as the cause of diseases classified elsewhere Coding Level of Care Code Est Pt Level 3 (59501) Diagnoses Bacteremia due to Staphylococcus R78.81; B95.8
[2024-04-20 13:37] VITALS: PULSE 107; TEMP 36.8; O2SAT 98
== END 2024-04-20 13:55 | disposition home or self-care (01) ==
LOC: HO.HID 13:25
PROVIDERS: PCP Internal Medicine; Visit Provider Internal Medicine
DX: R78.81 Bacteremia (principal); B95.8 Unspecified staphylococcus as the cause of diseases classified elsewhere
CPT/HCPCS: 99213

== ENCOUNTER 2024-04-20 13:25 | Outpatient (REF) | payer MEDICARE, BC, SELFPAY | END 2024-04-20 13:26 | disposition home or self-care (01) | LOC: HO.LAB 13:25 | PROVIDERS: PCP Internal Medicine; Visit Provider Internal Medicine | DX: R78.81 Bacteremia (principal); B95.8 Unspecified staphylococcus as the cause of diseases classified elsewhere | CPT/HCPCS: 87040; 99212 ==

== ENCOUNTER 2024-05-20 23:25 | Inpatient (IN) | payer MEDICARE, BC, SELFPAY ==
--- NOTE | 2024-05-20 | ECG_ITS ---
Test Reason : SOB Blood Pressure : / mmHG Vent. Rate : 117 BPM Atrial Rate : 117 BPM P-R Int : 148 ms QRS Dur : 086 ms QT Int : 316 ms P-R-T Axes : 011 039 046 degrees QTc Int : 440 ms Sinus tachycardia Otherwise normal ECG When compared with ECG of 03-MAR-2024 22:42, Nonspecific T wave abnormality no longer evident in Lateral leads Referred By: Generic ED Physician Electronically Signed By:MAURI RG MD
--- NOTE | ~2024-05-20 | US_ITS ---
EXAMINATION: US RETROPERITONEAL LIMITED (RENAL ONLY) CLINICAL INFORMATION: Acute kidney insufficiency. COMPARISON: 03-25 TECHNIQUE: Standard renal and bladder ultrasound FINDINGS: RIGHT KIDNEY: 12.3 x 1.4 x 5.9 cm (SAG x AP x TRV). The kidney is normal in size, contour, and echogenicity. Renal cortical thickness is normal. No stones. No perinephric collection. Mild fullness of the renal collecting system. LEFT KIDNEY: 11.7 x 1.0 x 5.0 cm (SAG x AP x TRV). The kidney is normal in size, contour, and echogenicity. Renal cortical thickness is normal. No calculi or focal parenchymal lesions. Mild dilatation of the intrarenal collecting system. No ureteral jet seen on either side. Bladder diverticula suspected. Layering debris consistent with blood, pus or debris. US/US renal BI IMPRESSION: Mild fullness of the intrarenal collecting system bilaterally persists. No ureteral jets seen. Bladder diverticula. Bladder debris as above. Urologic assessment recommended.
--- NOTE | ~2024-05-20 | CT_ITS ---
EXAMINATION: CT CHEST WITHOUT CONTRAST CLINICAL INFORMATION: Cough and fever. COMPARISON: None available. TECHNIQUE: Multidetector volumetric CT imaging of the chest was done. Axial MIP volume rendering provided. Sagittal and coronal reformatted images were obtained. This CT examination was performed using dose optimization techniques as appropriate, variously including the following: *Automated exposure control *Adjustment of mA and/or kV according to patient size (this includes techniques or standardized protocols for targeted exams where dose is matched to indication/reason for exam; i.e. extremities or head) *Use of iterative reconstruction technique DLP: 276 mGy-cm FINDINGS: COUNTER HAND: Unremarkable. LUNGS: There is scarring and/or subsegmental atelectasis at the lung bases. There is no evidence for active infiltrate. MEDIASTINUM: The mediastinum is normal. CORONARY ARTERY CALCIFICATION: Moderate. PLEURA: There is no pleural effusion. No pleural mass or thickening. AXILLA: No lymphadenopathy. UPPER ABDOMEN: Unremarkable. OSSEOUS STRUCTURES: Unremarkable. CT/CT chest wo IV con IMPRESSION: Scarring and/or subsegmental atelectasis at the lung bases. No evidence for active infiltrate. Fleischner guidelines were followed.
--- NOTE | ~2024-05-20 | XR_ITS ---
EXAMINATION: XR CHEST CLINICAL INFORMATION: Cough. Dyspnea. COMPARISON: 03/03/2024. TECHNIQUE: Frontal view of the chest was obtained. FINDINGS: The patient is mildly rotated. The cardiomediastinal silhouette is stable. There is left lower lung field increased markings/scarring grossly similar to previous. There is no definitive new consolidation or definitive evidence for significant pleural effusions. The bony structures and soft tissues are unremarkable XR/XR chest 1V IMPRESSION: Left lower lung field increased markings/scarring grossly similar to previous. No definitive new consolidation or definitive evidence for significant pleural effusions.
[2024-05-20 23:34] VITALS: BP 138/78; BP 144/81; PULSE 120; RESP 17; TEMP 37.1; O2SAT 95; O2SAT 98; BMI 24.7
[2024-05-20 23:54] LABS: MANUAL DIFF FLAG NO
[2024-05-20 23:55] LABS: Basophils Percent Auto 0.4 % (0-2); Eosinophils Percent Auto 0.2 % (0-4); Hematocrit 30.9 % (42.0-52.0); Hemoglobin 10.8 g/dl (14.0-18.0); Imm Gran Abs Auto 0.03 X10*3/uL (0.00-0.03); Imm Gran Pct Auto 0.3 % (0.0-0.4); Lymphocytes Absolute Auto 1.1 X10*3/uL (1.2-4.9); Lymphocytes Percent Auto 11.6 % (20-40); Mean Corpuscular Hemoglobin 29.8 pg (27.0-33.0); Mean Corpuscular Volume 85.1 fL (80.0-98.0); Mean Platelet Volume 8.3 fL (9.4-12.4); Monocytes Absolute Auto 1.2 X10*3/uL (0.1-1.2); Monocytes Percent Auto 12.3 % (2-11); Neutrophils Absolute Auto 7.4 x10*3/uL (2.0-8.3); Neutrophils Percent Auto 75.2 % (45-73); Platelet Count 259 X10*3/uL (160-400); Red Blood Count 3.63 X10*6/uL (4.60-5.80); White Blood Count 9.8 X10*3/uL (4.8-10.8)
[2024-05-21] VITALS (21 sets, daily range): BP systolic 86–176; BP diastolic 40–110; PULSE 100–165; RESP 18–30; TEMP 35.9–38.9; O2SAT 93–99
--- NOTE | 2024-05-21 | ECG_ITS ---
Test Reason : TACHYCARDIA Blood Pressure : / mmHG Vent. Rate : 155 BPM Atrial Rate : 000 BPM P-R Int : 000 ms QRS Dur : 082 ms QT Int : 318 ms P-R-T Axes : 000 062 069 degrees QTc Int : [address] depression, consider subendocardial injury Abnormal ECG When compared with ECG of 21-MAY-2024 00:06, ST now depressed in Inferior leads ST now depressed in Lateral leads Nonspecific T wave abnormality now evident in Lateral leads Referred By: Alejandrina Torres Electronically Signed By:MAURI RG MD
[2024-05-21 00:10] LABS: Alanine Aminotransferase 7 U/L (0-40); Albumin Level 3.8 g/dL (3.5-5.0); Alkaline Phosphatase 77 U/L (39-117); Anion Gap 18 (12-20); Aspartate Amino Transferase 14 U/L (5-37); Blood Urea Nitrogen 47 mg/dL (9-16); Calcium 9.1 mg/dL (8.4-10.2); Carbon Dioxide 20 mmol/L (22-29); Chloride 100 mmol/L (96-108); Creatinine Clr Calc Pharmacy 45.1; Estimated Glomerular Filt Rate 39; Glucose Random 304 mg/dL (60-115); Potassium 4.6 mmol/L (3.3-5.1); Sodium 133 mmol/L (135-145); Total Protein 7.2 g/dL (6.5-8.0)
[2024-05-21 00:15] LABS: Troponin-I High Sensitivity 6.2 ng/L (<3.5-35.0)
[2024-05-21 00:32] LABS: Influenza A PCR NEGATIVE (Negative); Influenza B PCR NEGATIVE (Negative); Resp Syncy Virus RNA Qual PCR NEGATIVE (Negative); SARS COV2 PCR INHOUSE NEGATIVE (Negative)
[2024-05-21] MEDS: cefTRIAXone sodium 1 GM in 0.9 % Sodium Chloride 50 ML IV (00:46)
[2024-05-21] MEDS: Acetaminophen 325 MG TABLET 650 MG PO ×2 (00:46→09:13)
[2024-05-21 00:56] LABS: Lactic Acid 0.8 mmol/L (0.5-2.0)
[2024-05-21] MEDS: 0.9 % Sodium Chloride 1,000 ML 999 ML IV ×3 (01:05→06:52)
--- NOTE | 2024-05-21 01:13 | ED_ITS ---
HPI - Weakness General Chief complaint: Upper Respiratory Symptoms Stated complaint: weakness Time Seen by Provider: 05/21/24 00:36 Source: patient and old records reviewed Mode of arrival: EMS Limitations: no limitations History of Present Illness ED Provider: MACEY HPI Narrative: 74 yo male with PMH of MSSA bacteremia, PAF on eliquis, prostatitis, DM, HTN, chronic L plantar foot ulcer that was managed and healed well by wound clinic presents today with c/o not feeling well with weakness, cough, poor PO intake for 4 days. He notes his brother has a cold. They have not traveled, no one has taken a covid test. He has not taken tylenol or motrin at home. He couldn't get up today due to being so weak. No n/v/d. MD Complaint: generalized weakness Onset (ago): day(s) (4) Duration: progressively worsening Location: generalized Migration: none Severity: moderate Quality: dull Relieving factors: rest Exacerbating factors: movement and exertion Context: recent illness Associated symptoms: loss of appetite, myalgias and other (cough) Related Data Home Medications ?Medication ?Instructions ?Recorded ?Confirmed lancets 28 gauge #100 ea 03/14/21 12/08/23 cholecalciferol (vitamin D3) 25 25 mcg PO DAILY 03/04/24 03/04/24 mcg (1,000 unit) tablet cyanocobalamin (vitamin B-12) 500 500 mcg PO DAILY 03/04/24 03/04/24 mcg tablet tamsulosin 0.4 mg capsule 0.4 mg PO BEDTIME 03/04/24 03/04/24 Previous Rx's ?Medication ?Instructions ?Recorded finasteride 5 mg tablet 5 mg PO BEDTIME 90 days #90 tabs 12/08/23 metoprolol tartrate 50 mg tablet 50 mg PO BID 90 days #180 tabs 02/08/24 apixaban 5 mg tablet (Eliquis) 5 mg PO BID #180 tabs 02/16/24 Allergies Allergy/AdvReac Type Severity Reaction Status Date / Time penicillin V Allergy Intermediate rash Verified 05/20/24 23:41 amoxicillin Allergy Unknown Verified 05/20/24 23:41 Erythromycin Allergy Intermediate diarrhea Uncoded 05/20/24 23:41 Review of Systems 2 Review of Systems: Constitutional : No Fever, pos Chills, pos Fatigue ENT/Mouth : No sore throat, No Rhinorrhea Eyes: No Eye Pain, No Swelling, No Redness Cardiovascular : No Chest Pain, No SOB, No Dyspnea on Exertion Respiratory : pos Cough, No Sputum Gastrointestinal : No Nausea, No Vomiting, No Diarrhea, No abdominal Pain Genitourinary : No Dysuria, No Urinary Frequency, No Hematuria, Musculoskeletal : No joint pain, No Myalgias, No Joint Swelling Skin : No Skin Lesions, No rash Neuro : pos Weakness, No Numbness, No Dizziness, no Headache Psych : No Anxiety/Panic, No Depression All other systems reviewed and are negative [facility] Past Medical History Attestation statement: The following information was validated with the patient. Source: old records reviewed Medical History Bladder outlet obstruction Psoriasis Sepsis Elevated cholesterol Anemia BPH (benign prostatic hyperplasia) Diabetes Vitamin D deficiency Neuropathy HTN (hypertension) Chronic a-fib Amputation of great toe Osteomyelitis PVD (peripheral vascular disease) Amputation of toe of left foot Pre-diabetes History of neuropathy Arrhythmia Osteomyelitis of second toe of left foot Ulcer of left second toe Amputated toe of right foot History of heart valve abnormality Surgical History History of amputation of toe Status post amputation of toe Hx of amputation Status post ORIF of fracture of ankle Family History Family History Mother CAD (coronary artery disease) Social History Social History Household Members: Family Housing: House Are you a primary care team assistant to a significant other at home: No Do you presently have visiting nurse or other home services: Yes ([facility] for foot dressings) Alcohol intake: never Comment: scheduled med Patient Tobacco Use Status: Never used Tobacco Smoked in Last 30 Days: No Second Hand Smoke Exposure: No Use of substances other than those prescribed or required for medical reasons: No Advance Directives: Yes Advance Directives on File: Yes Advance Directives Date on File: 08/07/20 Do you have a plan to hurt others: No Plan service: No Current occupational status: retired Physical Exam 2 Vital Signs: Vital Signs: Last Vital Signs Temp 102 F H 05/21/24 00:35 Pulse 120 H 05/20/24 23:34 Resp 17 05/20/24 23:34 BP 144/81 H 05/20/24 23:34 Pulse Ox 94 05/21/24 01:05 O2 Del Method Room Air 05/21/24 01:05 BMI result Body Mass Index 24.7 Appearance: Alert. Oriented X3. No acute distress. Eyes: Pupils equal, round and reactive to light. ENT: Pharynx dry MM Neck: Normal inspection. Neck supple. CVS: tachycardic heart rate and rhythm. Pulses normal. Respiratory: No respiratory distress. Breath sounds diminished at the bases Abdomen: Soft and nontender. Skin: Skin warm and dry. pale skin color. Normal skin turgor. Extremities: No lower extremity edema. L foot plantar surface there is a scabbed area but no fluctuance or erythema Neuro: Oriented X 3. No motor deficit. No sensory deficit. Medications Administered Discontinued Medications Generic Name Dose Route Start Last Admin Trade Name Freq PRN Reason Stop Dose Admin Acetaminophen 650 mg 05/21/24 00:30 05/21/24 00:46 Acetaminophen 325 Mg Tablet PO 05/21/24 00:31 650 mg ONCE ONE Administration Ceftriaxone Sodium 1 gm/ 50 mls @ 100 mls/hr 05/21/24 00:30 05/21/24 01:34 Sodium Chloride IV 05/21/24 00:59 Infused ONCE ONE Infusion Sodium Chloride 1,000 mls @ 999 mls/hr 05/21/24 00:35 05/21/24 01:05 Ns IV 05/21/24 01:35 999 mls/hr .Q1H1M ONE Administration Medical Decision Making Medical Decision Making [facility] Narrative: 74 yo male with PMH of MSSA bacteremia, PAF on eliquis, prostatitis, DM, HTN, chronic L plantar foot ulcer here with c/o malaise not feeling well cough for 4 days at this time on exam febrile 102 sepsis protocol done - IVF x 2, empiric ceftriaxone, viral panel, labs, cultures, admission pending labs. He has mild BHUMI Differential Diagnosis Differential Diagnoses: The differential diagnosis associated with the presentation includes UTI, pneumonia, viral syndrome Admission/Observation Consideration of admission/observation: Escalation of care including admission/observation considered admit for BHUMI, culture surveillance Consult Healthcare Provider Management of the patient was discussed with: Hospitalist (will admit) Lab Data [facility] Lab Attestation statement: I reviewed the patient's lab results. 05/20/24 23:48 05/20/24 23:48 Labs: Lab Results 05/20/24 05/21/24 Range/Units 23:48 00:41 WBC 9.8 (4.8-10.8) X10*3/uL RBC 3.63 L (4.60-5.80) X10*6/uL Hgb 10.8 L (14.0-18.0) g/dl Hct 30.9 L (42.0-52.0) % MCV 85.1 (80.0-98.0) fL MCH 29.8 (27.0-33.0) pg MCHC 35.0 (31.0-36.0) g/dl RDW 14.0 (11.0-16.0) % Plt Count 259 D (160-400) X10*3/uL MPV 8.3 L (9.4-12.4) fL Immature Gran % (Auto) 0.3 (0.0-0.4) % Neut % (Auto) 75.2 H (45-73) % Lymph % (Auto) 11.6 L (20-40) % [place] % (Auto) 12.3 H (2-11) % Eos % (Auto) 0.2 (0-4) % Baso % (Auto) 0.4 (0-2) % Lymph # (Auto) 1.1 L (1.2-4.9) X10*3/uL [place] # (Auto) 1.2 (0.1-1.2) X10*3/uL Eos # (Auto) 0.0 (0.0-0.4) X10*3/uL Baso # (Auto) 0.0 (0.0-0.2) X10*3/uL Abs Immat Gran (auto) 0.03 (0.00-0.03) X10*3/uL Absolute Neuts (auto) 7.4 (2.0-8.3) x10*3/uL Absolute Nucleated RBC 0.000 (0.0-0.012) X10*3/uL Nucleated RBC % (auto) 0.0 (0.0-0.2) /100WBC Sodium 133 L (135-145) mmol/L Potassium 4.6 D (3.3-5.1) mmol/L Chloride 100 (96-108) mmol/L Carbon Dioxide 20 L (22-29) mmol/L Anion Gap 18 (12-20) BUN 47 H (9-16) mg/dL Creatinine 1.74 H (0.5-1.4) mg/dL Estim Creat Clear Calc 45.1 Estimated GFR 39 Random Glucose 304 H (60-115) mg/dL Lactic Acid 0.8 (0.5-2.0) mmol/L Calcium 9.1 D (8.4-10.2) mg/dL Total Bilirubin 1.0 (0.0-1.0) mg/dL AST 14 (5-37) U/L ALT 7 (0-40) U/L Alkaline Phosphatase 77 (39-117) U/L Troponin I High Sens 6.2 (<3.5-35.0) ng/L B-Natriuretic Peptide 27 (<100) pg/mL Total Protein 7.2 (6.5-8.0) g/dL Albumin 3.8 (3.5-5.0) g/dL Influenza Type A (PCR) NEGATIVE (Negative) Influenza Type B (PCR) NEGATIVE (Negative) RSV RNA Qual (PCR) NEGATIVE (Negative) SARS-CoV-2 RNA (RT-PCR) NEGATIVE (Negative) Independent Interpretation I performed an independent interpretation of an: EKG and Plain X-Ray (left lung opacity) Interpretation: Rate: 117 Rhythm: sinus tach [place]: normal Normal P waves. Normal EDILBERTO. Normal QRS complex. ST T wave : normal no YADIRA qTC: 440 prior studies: no acute ischemia The study has been interpreted contemporaneously by me. . Radiology Impression Discussion of test interpretation with radiology: I have reviewed the radiologist's reading. Independent Historian Clinical information obtained from an independent historian. History obtained from or confirmed by: EMS External Record Review External record reviewed: Inpatient record Critical Care Time Critical Care Time Critical Care Time: Yes Total Critical Care Time: 40 Attestation: review of records, sepsis protocol, 2L of IVF, admission I attest to this time spent taking care of the patient Discharge Plan Discharge Clinical Impression: BHUMI (acute kidney injury) Fever Qualifiers: Fever type: unspecified Qualified Code(s): R50.9 - Fever, unspecified Patient Disposition: Admitted As Inpatient Print Language: [place]
[2024-05-21 01:46] LABS: B Type Natriuretic Peptide 27 pg/mL (<100)
[2024-05-21 02:04] LABS: Appearance Urine Turbid; Color Urine Straw; Glucose Urine UA 100 mg/dL (Negative); Leukocyte Esterase Urine Large (3+) (Negative); Nitrite Urine Negative (Negative); PH 5.5 (5.0-9.0); UMIC TRIGGER UACC YES; Urine Blood Large (3+) (Negative); Urine Ketones Negative (Negative); Urine Protein 300 (3+) mg/dL (Neg-Trace)
[2024-05-21 02:06] LABS: Bacteria Urine 4+ (None Seen); Hyaline Casts Urine 0-2 /LPF (0-2); RBC Urine >20 /HPF (0-2); Squamous Epithelial Cell Urine 0-2 /HPF (0-2); UACC Culture Trigger YES; WBC Urine >50 /HPF (0-5)
[2024-05-21] MEDS: Azithromycin 500 MG in 0.9 % Sodium Chloride 250 ML 125 MG IV (02:06)
--- NOTE | 2024-05-21 02:38 | PM.IMHP ---
History of Present Illness Date of Service: 05/21/24 Chief Complaint: Fever This is a 74-year-old male with pertinent history of MSSA bacteremia, BPH, permanent atrial fibrillation on Eliquis who presents to the emergency department for evaluation of fever. Patient states he has not been feeling well for the past 3-4 days. He feels weak and has a dry cough. Patient also reports that he had a fever on the day of presentation. States he has had urinary frequency and urgency for a while. No chest pain, palpitations, shortness of breath, abdominal pain, changes in urinary habits. Patient states he could not get up from the bed due to weakness. Of note, patient was recently admitted with emesis a bacteremia and discharged on 03/11/2024 with 4 weeks of IV antibiotics. In the emergency department, patient was found to be febrile with temperature 102 degrees F. Also found to have BHUMI with creatinine 1.7. Patient was resuscitated with IV crystalloids and given IV ceftriaxone in the ER. Review of Systems Constitutional: Constitutional: Reports chills, Reports fever(s), Reports malaise, Reports poor appetite and Reports weakness Cardiovascular: Cardiovascular: Reports no additional cardiovascular complaints Respiratory: Respiratory: Reports no additional respiratory complaints Gastrointestinal: Gastrointestinal: Reports no additional gastrointestinal complaints Neurologic: Reports weakness [facility] Medical History Bladder outlet obstruction Psoriasis Sepsis Elevated cholesterol Anemia BPH (benign prostatic hyperplasia) Diabetes Vitamin D deficiency Neuropathy HTN (hypertension) Chronic a-fib Amputation of great toe Osteomyelitis PVD (peripheral vascular disease) Amputation of toe of left foot Pre-diabetes History of neuropathy Arrhythmia Osteomyelitis of second toe of left foot Ulcer of left second toe Amputated toe of right foot History of heart valve abnormality Family History Mother CAD (coronary artery disease) Surgical History History of amputation of toe Status post amputation of toe Hx of amputation Status post ORIF of fracture of ankle Social History Household Members: Family Housing: House Are you a primary critical care unit manager to a significant other at home: No Do you presently have visiting nurse or other home services: Yes ([facility] for foot dressings) Alcohol intake: never Comment: scheduled med Patient Tobacco Use Status: Never used Tobacco Smoked in Last 30 Days: No Second Hand Smoke Exposure: No Use of substances other than those prescribed or required for medical reasons: No Advance Directives: Yes Advance Directives on File: Yes Advance Directives Date on File: 08/07/20 Do you have a plan to hurt others: No Plan service: No Current occupational status: retired Meds Allergies Allergy/AdvReac Type Severity Reaction Status Date / Time penicillin V Allergy Intermediate rash Verified 05/20/24 23:41 amoxicillin Allergy Unknown Verified 05/20/24 23:41 Erythromycin Allergy Intermediate diarrhea Uncoded 05/20/24 23:41 Active Medications: Current Medications Sodium Chloride (Ns) 1,000 mls @ 999 mls/hr IV .Q1H1M ONE Stop: 05/21/24 02:59 Last Admin: 05/21/24 02:04 Dose: 999 mls/hr Azithromycin 500 mg/ Sodium (Chloride) 250 mls @ 125 mls/hr IV ONCE ONE Stop: 05/21/24 04:02 Last Admin: 05/21/24 02:06 Dose: 125 mls/hr Home Medications ?Medication ?Instructions ?Recorded ?Confirmed ?Last Taken ?Type lancets 28 gauge #100 ea 03/14/21 12/08/23 Unknown History cholecalciferol (vitamin D3) 25 25 mcg PO DAILY 03/04/24 03/04/24 Unknown History mcg (1,000 unit) tablet cyanocobalamin (vitamin B-12) 500 500 mcg PO DAILY 03/04/24 03/04/24 Unknown History mcg tablet tamsulosin 0.4 mg capsule 0.4 mg PO BEDTIME 03/04/24 03/04/24 Unknown History Physical Exam Vital Signs and Narrative: Vital Signs: Last Vital Signs Temp 99.9 F 05/21/24 02:28 Pulse 105 H 05/21/24 02:17 Resp 20 05/21/24 02:17 BP 127/65 05/21/24 02:17 Pulse Ox 94 05/21/24 02:17 O2 Del Method Room Air 05/21/24 02:17 BMI result Body Mass Index 24.7 Elderly male lying in bed in no distress Neck supple, no JVD Tachycardic with regular rhythm, S1-S2 heard Regular breath sounds bilaterally, no wheezing or crackles appreciated Abdomen soft nontender, no guarding, no rigidity Patient is awake, alert and oriented to self, place, time and person ; no focal motor deficit Psych: Normal mood Left plantar foot ulcer with no erythema or fluctuance Results Labs 05/20/24 23:48 05/20/24 23:48 Labs: Laboratory Results - last 24 hr 05/20/24 05/21/24 05/21/24 23:48 00:41 01:50 MCV 85.1 MCH 29.8 MCHC 35.0 RDW 14.0 Plt Count 259 D MPV 8.3 L Immature Gran % (Auto) 0.3 Neut % (Auto) 75.2 H Lymph % (Auto) 11.6 L [place] % (Auto) 12.3 H Eos % (Auto) 0.2 Baso % (Auto) 0.4 Lymph # (Auto) 1.1 L [place] # (Auto) 1.2 Eos # (Auto) 0.0 Baso # (Auto) 0.0 Abs Immat Gran (auto) 0.03 Absolute Neuts (auto) 7.4 Absolute Nucleated RBC 0.000 Nucleated RBC % (auto) 0.0 Anion Gap 18 Estim Creat Clear Calc 45.1 Estimated GFR 39 Random Glucose 304 H Lactic Acid 0.8 Calcium 9.1 D Total Bilirubin 1.0 AST 14 ALT 7 Alkaline Phosphatase 77 Troponin I High Sens 6.2 B-Natriuretic Peptide 27 Total Protein 7.2 Albumin 3.8 Urine Color Straw Urine Appearance Turbid Urine pH 5.5 Ur Specific [place] 1.010 Urine Protein 300 (3+) H Urine Glucose (UA) 100 H Urine Ketones Negative Urine Blood Large (3+) H Urine Nitrite Negative Ur Leukocyte Esterase Large (3+) H Urine RBC >20 H Urine WBC >50 H Ur Squamous Epith Cells 0-2 Urine Bacteria 4+ Hyaline Casts 0-2 Influenza Type A (PCR) NEGATIVE Influenza Type B (PCR) NEGATIVE RSV RNA Qual (PCR) NEGATIVE SARS-CoV-2 RNA (RT-PCR) NEGATIVE Imaging Radiologist's Impressions: Impressions Chest X-Ray 05/21/24 01:14 IMPRESSION: Left lower lung field increased markings/scarring grossly similar to previous. No definitive new consolidation or definitive evidence for significant pleural effusions. Assessment and Plan (1) Sepsis: Status: Acute (2) UTI (urinary tract infection): Status: Acute (3) BHUMI (acute kidney injury): Status: Acute Plan This is a 74-year-old male with pertinent history of MSSA bacteremia, BPH, permanent atrial fibrillation on Eliquis who presents to the emergency department for evaluation of fever. #. Sepsis due to acute UTI: Resuscitated with IV crystalloids. Initiating empiric IV Rocephin. Lactic acid and blood culture obtained. Follow urine culture #. Acute kidney injury stage I: Monitor creatinine and urine output with crystalloid resuscitation. Avoid nephrotoxins #. Hyperglycemia: Initiating Accu-Cheks with sliding scale insulin. Obtain A1c #. Permanent atrial fibrillation: On Eliquis. Continue metoprolol #. Chronic left foot ulcer: No concern for infection on admission. Consulting Wound Care #. Chronic normocytic anemia: Hemoglobin above transfusion threshold Med rec pending DVT prophylaxis: Eliquis Full code Admit as inpatient and will require two night minimum hospital stay for IV antibiotics (as above), which is not possible in a lesser acute setting. Quality Stroke Does the patient have a stroke diagnosis?: No VTE Prior VTE?: No VTE Risk Level:: Medical - moderate - high VTE Device Contraindication: Treatment Not Indicated VTE Drug Contraindication: N/A - Med Ordered
[2024-05-21] MEDS: Acetaminophen 1,000 MG/100 ML PIGGYBACK 400 MG IV (04:08)
--- NOTE | 2024-05-21 04:12 | PC.NURSE ---
pt tachy 160s. had to urinate and have a BM, both done, pt remains tachy and restless, multiple episodes of diarrhea. sample collected. pt washed and changed multiple times. pt medicated per DEC. EKG done per MD Torres.
[2024-05-21] MEDS: Metoprolol Tartrate 5 MG/5 ML VIAL IVPUSH (04:43)
[2024-05-21] MEDS: Lactated Ringers 500 ML IV (04:46)
--- NOTE | 2024-05-21 04:49 | PM.EVENT ---
Event Note Date of Service: 05/21/24 Event Note: Patient with episode of heart rate in the 160s. EKG with SVT. IV Lopressor 5 mg ordered with improvement in heart rate Time Spent With Patient Time: Total time managing care of this patient today ____ minutes.
[2024-05-21 05:13] LABS: Basophils Percent Auto 0.3 % (0-2); Eosinophils Percent Auto 0.2 % (0-4); Hematocrit 29.3 % (42.0-52.0); Hemoglobin 9.9 g/dl (14.0-18.0); Imm Gran Abs Auto 0.03 X10*3/uL (0.00-0.03); Imm Gran Pct Auto 0.5 % (0.0-0.4); Lymphocytes Absolute Auto 0.4 X10*3/uL (1.2-4.9); Lymphocytes Percent Auto 5.7 % (20-40); MANUAL DIFF FLAG SCAN; Mean Corpuscular HGB Conc 33.8 g/dl (31.0-36.0); Mean Corpuscular Hemoglobin 29.6 pg (27.0-33.0); Mean Corpuscular Volume 87.5 fL (80.0-98.0); Mean Platelet Volume 8.7 fL (9.4-12.4); Monocytes Absolute Auto 0.2 X10*3/uL (0.1-1.2); Monocytes Percent Auto 2.4 % (2-11); Neutrophils Absolute Auto 6.1 x10*3/uL (2.0-8.3); Neutrophils Percent Auto 90.9 % (45-73); Platelet Count 237 X10*3/uL (160-400); Red Blood Count 3.35 X10*6/uL (4.60-5.80); SCAN SMEAR FLAG 1; White Blood Count 6.7 X10*3/uL (4.8-10.8)
--- NOTE | 2024-05-21 05:21 | PC.NURSE ---
pt continues to be incont of stool and urine, assist with urinal at pt's request small void, bladder scan after 579ml, MD aware. new order for carmichael cath per . temp increased to 102 rectal after IV tylenol, cold packs in place at this time. LR infusing
[2024-05-21 05:25] LABS: Anion Gap 17 (12-20); Blood Urea Nitrogen 47 mg/dL (9-16); Calcium 8.2 mg/dL (8.4-10.2); Carbon Dioxide 16 mmol/L (22-29); Chloride 106 mmol/L (96-108); Creatinine Clr Calc Pharmacy 42.9; Estimated Glomerular Filt Rate 36; Glucose Random 276 mg/dL (60-115); Potassium 3.8 mmol/L (3.3-5.1); Sodium 135 mmol/L (135-145)
[2024-05-21 05:33] LABS: SLIDE REVIEW VERIFIED
--- NOTE | 2024-05-21 05:35 | PC.NURSE ---
pt off unit to U/S
[2024-05-21 05:48] LABS: CDiff Gene PCR POSITIVE (Negative)
[2024-05-21 06:31] LABS: CDIFF Internal ctrl Dots and bkg OK (V); CDiff Toxin Negative (Negative)
[2024-05-21 06:36] LABS: Estimated Average Glucose 146 mg/dL; Hemoglobin A1c % 6.7 % (<6.0)
--- NOTE | 2024-05-21 06:37 | PC.NURSE ---
carmichael placed 16fr coude , rectal temp 99.6. BPs 80s/40s. fluids started per MD order
--- NOTE | 2024-05-21 06:44 | PM.EVENT ---
Event Note Date of Service: 05/21/24 Event Note: Patient with C diff gene positive but toxin negative. Awaiting ID input Time Spent With Patient Time: Total time managing care of this patient today ____ minutes.
--- NOTE | 2024-05-21 07:25 | MHC.EDTECH ---
This pct upon checking when vitals were do last noticed this patient had a temp of 102 at 04:46 and no temp was taken after that it is now 07:32. RN Aware
[2024-05-21 07:53] LABS: Glucose, Whole Blood 219 mg/dL (60-115)
[2024-05-21] MEDS: Insulin Lispro 100 UNIT/ML 3 ML VIAL SUBCUT ×3 (07:58→18:47)
--- NOTE | 2024-05-21 08:14 | PHA.MEDREC ---
Pharmacy Consult ? Medication Reconciliation Pharmacy has completed the medication reconciliation. Spoke with patient to confirm medications. He last took them yesterday morning.
--- NOTE | 2024-05-21 09:18 | PC.NURSE ---
patient medicated per the MAR for fever. patient takes pills whole with water. resting quietly in bed, reports having an appetite this morning and eating most of breakfast. hr remains 130's on the monitor. offering no complaints at this time. call aguilar within reach
[2024-05-21 11:59] LABS: Adenovirus F 40/41 Not Detected (Not Detect.); Astrovirus Not Detected (Not Detect.); Campylobacter Not Detected (Not Detect.); Cryptosporidium Not Detected (Not Detect.); Cyclospora cayetanensis Not Detected (Not Detect.); E. coli EAEC Not Detected (Not Detect.); E. coli EPEC Not Detected (Not Detect.); E. coli ETEC Not Detected (Not Detect.); E. coli STEC Not Detected (Not Detect.); Entamoeba histolytica Not Detected (Not Detect.); Giardia lamblia Not Detected (Not Detect.); Plesiomonas shigelloides Not Detected (Not Detect.); Rotavirus A Not Detected (Not Detect.); Salmonella Not Detected (Not Detect.); Sapovirus Not Detected (Not Detect.); Shigella sp./EIEC Not Detected (Not Detect.); Vibrio Not Detected (Not Detect.); Vibrio Cholerae Not Detected (Not Detect.); Yersinia enterocolitica Not Detected (Not Detect.)
[2024-05-21 14:00] LABS: Glucose, Whole Blood 235 mg/dL (60-115)
--- NOTE | 2024-05-21 14:00 | MHC.EDTECH ---
Patient given lunch tray
--- NOTE | 2024-05-21 16:08 | P.PNIM_ITS ---
Subjective Subjective Date of Service: 05/21/24 Review of Systems Follow up Sepsis with BHUMI and UTI feeling sleepy Physical Exam 2 Vital Signs: Vital Signs: Last Vital Signs Temp 97.5 F 05/21/24 13:56 Pulse 140 H 05/21/24 13:56 Resp 20 05/21/24 13:56 BP 136/54 L 05/21/24 13:56 Pulse Ox 99 05/21/24 13:56 O2 Del Method Room Air 05/21/24 13:56 BMI result Body Mass Index 24.7 Appearing in no acute distress lung sounds are clear to auscultation heart regular rate rhythm, clear S1, S2 positive bowel sounds, abdomen is soft, nontender neuro patient is alert x3, no focal deficits Objective Data Active Medications Acetaminophen (Acetaminophen 325 Mg Tablet) 650 mg PO Q6H PRN PRN Reason: Pain, Mild (Pain Scale 1-3), fever or headache Last Admin: 05/21/24 09:13 Dose: 650 mg Documented By: JOAN Calcium Carbonate (Calcium Carbonate 750 Mg Tab.Chew) 750 mg PO Q4H PRN PRN Reason: Heartburn Glucose (Glucose Gel 15 Gm Gel..Gram.) 15 gm PO Q15M PRN; Protocol PRN Reason: per Hypoglycemia Standing Ord. Ceftriaxone Sodium 1 gm/ (Sodium Chloride) 50 mls @ 100 mls/hr IV Q24H [facility] Last Admin: 05/21/24 04:00 Dose: Not Given Documented By: TRUE Non-Admin Reason: Previously Administered Dextrose (D10) 250 mls @ 750 mls/hr IV Q15M PRN; Protocol PRN Reason: per Hypoglycemia Standing Ord. Insulin Human Lispro (Insulin Lispro 100 Unit/Ml 3 Ml Vial) 0 [facility]; Protocol Last Admin: 05/21/24 13:48 Dose: 4 unit Documented By: JOAN Magnesium Hydroxide (Milk Of Magnesia 30 Ml Oral.Susp) 30 ml PO DAILY PRN PRN Reason: Constipation Melatonin (Melatonin 3 Mg Tablet) 6 mg PO BEDTIME PRN PRN Reason: Insomnia Ondansetron HCl (Ondansetron Hcl 4 Mg/2 Ml Vial) 4 mg IVPUSH Q8H PRN PRN Reason: Nausea and Vomiting Sodium Chloride (0.9 % Sodium Chloride Flush 3 Ml Syringe) [facility] Last Admin: 05/21/24 08:01 Dose: Not Given Documented By: JOAN Non-Admin Reason: IV Running Labs 05/21/24 05:04 05/21/24 05:04 Labs: Laboratory Results - last 24 hr 05/20/24 05/21/24 05/21/24 23:48 00:41 01:50 MCV 85.1 MCH 29.8 MCHC 35.0 RDW 14.0 Plt Count 259 D MPV 8.3 L Immature Gran % (Auto) 0.3 Neut % (Auto) 75.2 H Lymph % (Auto) 11.6 L [place] % (Auto) 12.3 H Eos % (Auto) 0.2 Baso % (Auto) 0.4 Lymph # (Auto) 1.1 L [place] # (Auto) 1.2 Eos # (Auto) 0.0 Baso # (Auto) 0.0 Abs Immat Gran (auto) 0.03 Absolute Neuts (auto) 7.4 Absolute Nucleated RBC 0.000 Nucleated RBC % (auto) 0.0 Smear Tech's Comments Anion Gap 18 Estim Creat Clear Calc 45.1 Estimated GFR 39 POC Glucose Random Glucose 304 H Estimat Average Glucose Hemoglobin A1c % Lactic Acid 0.8 Calcium 9.1 D Total Bilirubin 1.0 AST 14 ALT 7 Alkaline Phosphatase 77 Troponin I High Sens 6.2 B-Natriuretic Peptide 27 Total Protein 7.2 Albumin 3.8 Urine Color Straw Urine Appearance Turbid Urine pH 5.5 Ur Specific [place] 1.010 Urine Protein 300 (3+) H Urine Glucose (UA) 100 H Urine Ketones Negative Urine Blood Large (3+) H Urine Nitrite Negative Ur Leukocyte Esterase Large (3+) H Urine RBC >20 H Urine WBC >50 H Ur Squamous Epith Cells 0-2 Urine Bacteria 4+ Hyaline Casts 0-2 Stl C. cayetanensis PCR Stool Rotavirus A PCR Stl Adenov F 40/41 PCR Stool Astrovirus (PCR) Stool Campylobacter PCR Stool Cryptosporidium PCR Stl Sh Tox Pr E STEC PCR Stool E coli O157 PCR Stl Enterotoxigenic E PCR Stool EPEC (PCR) Stool EAEC (PCR) Stl E. histolytica PCR Stool Giardia Lamblia PCR Stl P. shigelloides PCR Stool Salmonella PCR Stool Sapovirus (PCR) Stl Shigella/EIEC PCR St Y.enterocolitica PCR Stool Vibrio (PCR) Stl Vibrio cholerae PCR Stl Norovirus GI/GII PCR C. difficile Tox B Gene C. difficile Toxin A&B C. difficile Interpret Influenza Type A (PCR) NEGATIVE Influenza Type B (PCR) NEGATIVE RSV RNA Qual (PCR) NEGATIVE SARS-CoV-2 RNA (RT-PCR) NEGATIVE 05/21/24 05/21/24 05/21/24 04:53 05:04 07:49 MCV 87.5 MCH 29.6 MCHC 33.8 RDW 14.0 Plt Count 237 MPV 8.7 L Immature Gran % (Auto) 0.5 H Neut % (Auto) 90.9 H Lymph % (Auto) 5.7 L [place] % (Auto) 2.4 Eos % (Auto) 0.2 Baso % (Auto) 0.3 Lymph # (Auto) 0.4 L [place] # (Auto) 0.2 Eos # (Auto) 0.0 Baso # (Auto) 0.0 Abs Immat Gran (auto) 0.03 Absolute Neuts (auto) 6.1 Absolute Nucleated RBC 0.000 Nucleated RBC % (auto) 0.0 Smear Tech's Comments VERIFIED Anion Gap 17 Estim Creat Clear Calc 42.9 Estimated GFR 36 POC Glucose 219 H Random Glucose 276 H Estimat Average Glucose 146 Hemoglobin A1c % 6.7 H Lactic Acid Calcium 8.2 L D Total Bilirubin AST ALT Alkaline Phosphatase Troponin I High Sens B-Natriuretic Peptide Total Protein Albumin Urine Color Urine Appearance Urine pH Ur Specific [place] Urine Protein Urine Glucose (UA) Urine Ketones Urine Blood Urine Nitrite Ur Leukocyte Esterase Urine RBC Urine WBC Ur Squamous Epith Cells Urine Bacteria Hyaline Casts Stl C. cayetanensis PCR Not Detected Stool Rotavirus A PCR Not Detected Stl Adenov F 40/41 PCR Not Detected Stool Astrovirus (PCR) Not Detected Stool Campylobacter PCR Not Detected Stool Cryptosporidium PCR Not Detected Stl Sh Tox Pr E STEC PCR Not Detected Stool E coli O157 PCR Not applicable Stl Enterotoxigenic E PCR Not Detected Stool EPEC (PCR) Not Detected Stool EAEC (PCR) Not Detected Stl E. histolytica PCR Not Detected Stool Giardia Lamblia PCR Not Detected Stl P. shigelloides PCR Not Detected Stool Salmonella PCR Not Detected Stool Sapovirus (PCR) Not Detected Stl Shigella/EIEC PCR Not Detected St Y.enterocolitica PCR Not Detected Stool Vibrio (PCR) Not Detected Stl Vibrio cholerae PCR Not Detected Stl Norovirus GI/GII PCR See Comment C. difficile Tox B Gene POSITIVE A* C. difficile Toxin A&B Negative C. difficile Interpret SEE NOTE Influenza Type A (PCR) Influenza Type B (PCR) RSV RNA Qual (PCR) SARS-CoV-2 RNA (RT-PCR) 05/21/24 13:44 MCV MCH MCHC RDW Plt Count MPV Immature Gran % (Auto) Neut % (Auto) Lymph % (Auto) [place] % (Auto) Eos % (Auto) Baso % (Auto) Lymph # (Auto) Pitkin # (Auto) Eos # (Auto) Baso # (Auto) Abs Immat Gran (auto) Absolute Neuts (auto) Absolute Nucleated RBC Nucleated RBC % (auto) Smear Tech's Comments Anion Gap Estim Creat Clear Calc Estimated GFR POC Glucose 235 H Random Glucose Estimat Average Glucose Hemoglobin A1c % Lactic Acid Calcium Total Bilirubin AST ALT Alkaline Phosphatase Troponin I High Sens B-Natriuretic Peptide Total Protein Albumin Urine Color Urine Appearance Urine pH Ur Specific [place] Urine Protein Urine Glucose (UA) Urine Ketones Urine Blood Urine Nitrite Ur Leukocyte Esterase Urine RBC Urine WBC Ur Squamous Epith Cells Urine Bacteria Hyaline Casts Stl C. cayetanensis PCR Stool Rotavirus A PCR Stl Adenov F 40/41 PCR Stool Astrovirus (PCR) Stool Campylobacter PCR Stool Cryptosporidium PCR Stl Sh Tox Pr E STEC PCR Stool E coli O157 PCR Stl Enterotoxigenic E PCR Stool EPEC (PCR) Stool EAEC (PCR) Stl E. histolytica PCR Stool Giardia Lamblia PCR Stl P. shigelloides PCR Stool Salmonella PCR Stool Sapovirus (PCR) Stl Shigella/EIEC PCR St Y.enterocolitica PCR Stool Vibrio (PCR) Stl Vibrio cholerae PCR Stl Norovirus GI/GII PCR C. difficile Tox B Gene C. difficile Toxin A&B C. difficile Interpret Influenza Type A (PCR) Influenza Type B (PCR) RSV RNA Qual (PCR) SARS-CoV-2 RNA (RT-PCR) Assessment and Plan (1) UTI (urinary tract infection): Status: Acute (2) Sepsis: Status: Acute Plan This is a 74-year-old male with pertinent history of MSSA bacteremia, BPH, permanent atrial fibrillation on Eliquis who presents to the emergency department for evaluation of fever. SVT/ST one episode in ED with hr 160 treated with IV lopressor continue home dose of BB Sepsis due to acute UTI Resuscitated with IV crystalloids. IV Rocephin. Lactic acid and blood culture obtained. Follow urine culture PAF continue BB and Alba Acute kidney injury stage I Monitor creatinine and urine output with crystalloid resuscitation. Avoid nephrotoxins Hyperglycemia Initiating Accu-Cheks with sliding scale insulin. Obtain A1c Chronic left foot ulcer No concern for infection on admission. Consulting Wound Care Chronic normocytic anemia Hemoglobin above transfusion threshold DVT prophylaxis: Alba Attending Dr. Pichardo Full code Admit as inpatient and will require two night minimum hospital stay for IV antibiotics (as above), which is not possible in a lesser acute setting. Quality Stroke Does the patient have a stroke diagnosis?: No VTE Prior VTE?: No VTE Risk Level:: Medical - moderate - high VTE Device Contraindication: Treatment Not Indicated VTE Drug Contraindication: N/A - Med Ordered
[2024-05-21] MEDS: Metoprolol Tartrate 25 MG TABLET PO (17:02)
[2024-05-21] MEDS: 0.9 % Sodium Chloride 1,000 ML 100 ML IVCONT (17:02)
[2024-05-21] MEDS: 0.9 % Sodium Chloride Flush 3 ML SYRINGE IVFLUSH ×2 (17:03→22:25)
--- NOTE | 2024-05-21 17:56 | PC.NURSE ---
patient arousable to verbal stimuli w/out issue. IV fluids infusing at this time per the MAR. continues to rest quietly in bed, patient moving on own switching positions, laying on his right side. call aguilar within reach, no complaints at this time
[2024-05-21 18:06] LABS: Glucose, Whole Blood 212 mg/dL (60-115)
--- NOTE | 2024-05-21 18:36 | MHC.EDTECH ---
800 mL urine emptied from catheter.
[2024-05-21 22:19] LABS: Glucose, Whole Blood 176 mg/dL (60-115)
[2024-05-21] MEDS: Metoprolol Tartrate 50 MG TABLET PO (22:24)
[2024-05-21] MEDS: Apixaban 5 MG TABLET PO (22:24)
[2024-05-21] MEDS: Tamsulosin HCL 0.4 MG CAPSULE PO (22:24)
[2024-05-21] MEDS: Finasteride 5 MG TABLET PO (22:24)
[2024-05-22] VITALS (7 sets, daily range): BP systolic 105–123; BP diastolic 49–59; PULSE 57–100; RESP 16–20; TEMP 36.1–37.3; O2SAT 97–99
[2024-05-22] MEDS: 0.9 % Sodium Chloride 1,000 ML 100 ML IVCONT ×3 (01:12→22:48)
[2024-05-22] MEDS: cefTRIAXone sodium 1 GM in 0.9 % Sodium Chloride 50 ML IV (03:12)
--- NOTE | 2024-05-22 08:07 | MHC.CM.PN ---
Addendum entered by Glory Salinas 05/22/24 08:13: Patient no longer attends [facility]. Original Note: CM met with Patient at bedside and addressed IMM with him, providing Patient with the original and a copy has been placed in the chart. Patient lives in a house with his Brother/HCP/Kalyan and he uses both a cane and a walker to assist with mobility. Patient was dc'd from [facility] about a month ago and was sent home with [facility]; Patient's VNA services have ended and he is in agreement to another referral to [facility], but he does nor want to go to [facility] again. CM has initiated and will follow for dc planning. PCP is Dr. Ramin Medrano.
[2024-05-22 08:16] LABS: Glucose, Whole Blood 174 mg/dL (60-115)
[2024-05-22] MEDS: Apixaban 5 MG TABLET PO ×2 (08:30→20:34)
[2024-05-22] MEDS: Metoprolol Tartrate 50 MG TABLET PO ×2 (08:30→20:33)
[2024-05-22] MEDS: 0.9 % Sodium Chloride Flush 3 ML SYRINGE IVFLUSH (08:31)
[2024-05-22] MEDS: Insulin Lispro 100 UNIT/ML 3 ML VIAL SUBCUT ×4 (08:35→21:00)
[2024-05-22 08:45] LABS: Anion Gap 15 (12-20); Blood Urea Nitrogen 35 mg/dL (9-16); Carbon Dioxide 17 mmol/L (22-29); Chloride 111 mmol/L (96-108); Estimated Glomerular Filt Rate 46; Glucose Random 172 mg/dL (60-115); Potassium 3.9 mmol/L (3.3-5.1); Sodium 139 mmol/L (135-145)
[2024-05-22 10:56] LABS: Glucose, Whole Blood 250 mg/dL (60-115)
--- NOTE | 2024-05-22 11:03 | HO.PM.IMPN ---
Subjective Subjective Date of Service: 05/22/24 Review of Systems Follow up Sepsis with BHUMI and UTI feeling sleepy Physical Exam Vital Signs: Vital Signs: Last Vital Signs Temp 97.9 F 05/22/24 10:39 Pulse 57 05/22/24 10:39 Resp 16 05/22/24 10:39 BP 107/56 L 05/22/24 10:39 Pulse Ox 97 05/22/24 10:39 O2 Del Method Room Air 05/22/24 10:39 BMI result Body Mass Index 24.7 Appearing in no acute distress lung sounds are clear to auscultation heart regular rate rhythm, clear S1, S2 positive bowel sounds, abdomen is soft, nontender neuro patient is alert x3, no focal deficits Objective Data Active Medications Acetaminophen (Acetaminophen 325 Mg Tablet) 650 mg PO Q6H PRN PRN Reason: Pain, Mild (Pain Scale 1-3), fever or headache Last Admin: 05/21/24 09:13 Dose: 650 mg Documented By: JOAN Apixaban (Apixaban 5 Mg Tablet) 5 mg PO BID [facility] Last Admin: 05/22/24 08:30 Dose: 5 mg Documented By: JN Calcium Carbonate (Calcium Carbonate 750 Mg Tab.Chew) 750 mg PO Q4H PRN PRN Reason: Heartburn Finasteride (Finasteride 5 Mg Tablet) 5 mg PO BEDTIME [facility] Last Admin: 05/21/24 22:24 Dose: 5 mg Documented By: SHAMAR Glucose (Glucose Gel 15 Gm Gel..Gram.) 15 gm PO Q15M PRN; Protocol PRN Reason: per Hypoglycemia Standing Ord. Ceftriaxone Sodium 1 gm/ (Sodium Chloride) 50 mls @ 100 mls/hr IV Q24H [facility] Last Infusion: 05/22/24 03:42 Dose: Infused Documented By: SHAMAR Dextrose (D10) 250 mls @ 750 mls/hr IV Q15M PRN; Protocol PRN Reason: per Hypoglycemia Standing Ord. Sodium Chloride (Ns) 1,000 mls @ 100 mls/hr IVCONT .Q10H [facility] Last Admin: 05/22/24 01:12 Dose: 100 mls/hr Documented By: SHAMAR Insulin Human Lispro (Insulin Lispro 100 Unit/Ml 3 Ml Vial) 0 unit SUBCUT QIDACHS [facility]; Protocol Last Admin: 05/22/24 08:35 Dose: 2 unit Documented By: JN Magnesium Hydroxide (Milk Of Magnesia 30 Ml Oral.Susp) 30 ml PO DAILY PRN PRN Reason: Constipation Melatonin (Melatonin 3 Mg Tablet) 6 mg PO BEDTIME PRN PRN Reason: Insomnia Metoprolol Tartrate (Metoprolol Tartrate 50 Mg Tablet) 50 mg PO BID [facility]; Protocol Last Admin: 05/22/24 08:30 Dose: 50 mg Documented By: JN Ondansetron HCl (Ondansetron Hcl 4 Mg/2 Ml Vial) 4 mg IVPUSH Q8H PRN PRN Reason: Nausea and Vomiting Sodium Chloride (0.9 % Sodium Chloride Flush 3 Ml Syringe) 3 ml IVFLUSH QSHIFT [facility] Last Admin: 05/22/24 08:31 Dose: 3 ml Documented By: JN Tamsulosin HCl (Tamsulosin Hcl 0.4 Mg Capsule) 0.4 mg PO BEDTIME [facility] Last Admin: 05/21/24 22:24 Dose: 0.4 mg Documented By: SHAMAR Labs 05/21/24 05:04 05/22/24 07:54 Labs: Laboratory Results - last 24 hr 05/21/24 05/21/24 05/21/24 04:53 13:44 18:00 Hold Purple Top Anion Gap Estim Creat Clear Calc Estimated GFR POC Glucose 235 H 212 H Random Glucose Calcium Stl C. cayetanensis PCR Not Detected Stool Rotavirus A PCR Not Detected Stl Adenov F 40/41 PCR Not Detected Stool Astrovirus (PCR) Not Detected Stool Campylobacter PCR Not Detected Stool Cryptosporidium PCR Not Detected Stl Sh Tox Pr E STEC PCR Not Detected Stool E coli O157 PCR Not applicable Stl Enterotoxigenic E PCR Not Detected Stool EPEC (PCR) Not Detected Stool EAEC (PCR) Not Detected Stl E. histolytica PCR Not Detected Stool Giardia Lamblia PCR Not Detected Stl P. shigelloides PCR Not Detected Stool Salmonella PCR Not Detected Stool Sapovirus (PCR) Not Detected Stl Shigella/EIEC PCR Not Detected St Y.enterocolitica PCR Not Detected Stool Vibrio (PCR) Not Detected Stl Vibrio cholerae PCR Not Detected Stl Norovirus GI/GII PCR See Comment 05/21/24 05/22/24 05/22/24 22:14 07:54 08:11 Hold Purple Top SEE NOTE Anion Gap 15 Estim Creat Clear Calc 52.0 Estimated GFR 46 POC Glucose 176 H 174 H Random Glucose 172 H Calcium 8.0 L Stl C. cayetanensis PCR Stool Rotavirus A PCR Stl Adenov F PCR Stool Astrovirus (PCR) Stool Campylobacter PCR Stool Cryptosporidium PCR Stl Sh Tox Pr E STEC PCR Stool E coli O157 PCR Stl Enterotoxigenic E PCR Stool EPEC (PCR) Stool EAEC (PCR) Stl E. histolytica PCR Stool Giardia Lamblia PCR Stl P. shigelloides PCR Stool Salmonella PCR Stool Sapovirus (PCR) Stl Shigella/EIEC PCR St Y.enterocolitica PCR Stool Vibrio (PCR) Stl Vibrio cholerae PCR Stl Norovirus GI/GII PCR 05/22/24 10:43 Hold Purple Top Anion Gap Estim Creat Clear Calc Estimated GFR POC Glucose 250 H Random Glucose Calcium Stl C. cayetanensis PCR Stool Rotavirus A PCR Stl Adenov F PCR Stool Astrovirus (PCR) Stool Campylobacter PCR Stool Cryptosporidium PCR Stl Sh Tox Pr E STEC PCR Stool E coli O157 PCR Stl Enterotoxigenic E PCR Stool EPEC (PCR) Stool EAEC (PCR) Stl E. histolytica PCR Stool Giardia Lamblia PCR Stl P. shigelloides PCR Stool Salmonella PCR Stool Sapovirus (PCR) Stl Shigella/EIEC PCR St Y.enterocolitica PCR Stool Vibrio (PCR) Stl Vibrio cholerae PCR Stl Norovirus GI/GII PCR Microbiology Microbiology Results: Microbiology 05/21/24 00:41 Blood Culture - Preliminary Blood - Venous No growth after 24 hours. 05/21/24 00:41 Blood Culture - Preliminary Blood - Venous No growth after 24 hours. Assessment and Plan (1) UTI (urinary tract infection): Status: Acute (2) Sepsis: Status: Acute Plan This is a 74-year-old male with pertinent history of MSSA bacteremia, BPH, permanent atrial fibrillation on Eliquis who presents to the emergency department for evaluation of fever. SVT/ST one episode in ED with hr 160 s/p treated with IV lopressor continue home dose of BB cardiology consultation>continue current tx, likely not SVT initially Cdiff Toxin B po, Toxin AB neg having diarrhea start oral vancomycin x10 days Sepsis due to acute UTI Resuscitated with IV crystalloids. IV Rocephin. Lactic acid and blood culture obtained. Follow urine culture PAF continue BB and Alba Acute kidney injury stage I creat trending down Monitor creatinine and urine output with crystalloid resuscitation. Avoid nephrotoxins Hyperglycemia A1C 6.7, guidelines suggest tx initiation when A1C is >7 continue ss while inpatient Chronic left foot ulcer No concern for infection on admission. Consulting Wound Care Chronic normocytic anemia Hemoglobin above transfusion threshold DISPO PT consult pending DVT prophylaxis: Alba Attending Dr. Pichardo Full code Quality Stroke Does the patient have a stroke diagnosis?: No VTE Prior VTE?: No VTE Risk Level:: Medical - moderate - high VTE Device Contraindication: Treatment Not Indicated VTE Drug Contraindication: N/A - Med Ordered
--- NOTE | 2024-05-22 12:51 | PM.CNCAR ---
History of Present Illness History of Present Illness Date of Service: 05/22/24 Requesting physician: Samreen Villagran Consult reason: other (Tachycardia) Chief complaint: fever Narrative: I was consulted to see Shashank in cardiology consultation today for tachycardia. Heart rate up to 160 beats per minute question SVT. Initial 12 lead EKG was read by computer as SVT. Although reviewing the EKG appears to be sinus tachycardia with ST T wave abnormality. Patient had no chest pain. Came into the hospital with fever and was diagnose with urosepsis. Currently heart rate has stabilized. He was treated aggressively for sepsis syndrome and is doing well. With any cardiac symptoms. Has prior history of paroxysmal atrial fibrillation Eliquis and metoprolol therapy. Blood pressure has improved. Heart rate is steady. Review of Systems Constitutional: Constitutional: Reports chills, Reports fever(s) and Reports lethargy Cardiovascular: Cardiovascular: Denies chest pain, Reports rapid heart rate, Denies lightheadedness, Denies Loss of Consciousness, Denies palpitations and Denies dyspnea Respiratory: Respiratory: Denies dyspnea Gastrointestinal: Gastrointestinal: Reports no additional gastrointestinal complaints Musculoskeletal: Musculoskeletal: Reports no additional musculoskeletal complaints Neurologic: Reports system reviewed and no additional complaints, except as documented Endocrine: Endocrine: Denies palpitations PMFSH Past Medical History Medical History Bladder outlet obstruction Psoriasis Sepsis Elevated cholesterol Anemia BPH (benign prostatic hyperplasia) Diabetes Vitamin D deficiency Neuropathy HTN (hypertension) Chronic a-fib Amputation of great toe Osteomyelitis PVD (peripheral vascular disease) Amputation of toe of left foot Pre-diabetes History of neuropathy Arrhythmia Osteomyelitis of second toe of left foot Ulcer of left second toe Amputated toe of right foot History of heart valve abnormality Family History Family History Mother CAD (coronary artery disease) Surgical History Surgical History History of amputation of toe Status post amputation of toe Hx of amputation Status post ORIF of fracture of ankle Social History Social History Household Members: Family Housing: House Are you a primary customer care representative to a significant other at home: No Do you presently have visiting nurse or other home services: No (had visiting nurse up until recently) Alcohol intake: never Comment: scheduled med Patient Tobacco Use Status: Never used Tobacco Second Hand Smoke Exposure: No Advance Directives Date on File: 08/07/20 service: No Current occupational status: retired Meds Allergies Allergy/AdvReac Type Severity Reaction Status Date / Time penicillin V Allergy Intermediate rash Verified 05/20/24 23:41 amoxicillin Allergy Unknown Verified 05/20/24 23:41 Erythromycin Allergy Intermediate diarrhea Uncoded 05/20/24 23:41 Active Medications: Current Medications Acetaminophen (Acetaminophen 325 Mg Tablet) 650 mg PO Q6H PRN PRN Reason: Pain, Mild (Pain Scale 1-3), fever or headache Last Admin: 05/21/24 09:13 Dose: 650 mg Apixaban (Apixaban 5 Mg Tablet) 5 mg PO BID [facility] Last Admin: 05/22/24 08:30 Dose: 5 mg Calcium Carbonate (Calcium Carbonate 750 Mg Tab.Chew) 750 mg PO Q4H PRN PRN Reason: Heartburn Finasteride (Finasteride 5 Mg Tablet) 5 mg PO BEDTIME [facility] Last Admin: 05/21/24 22:24 Dose: 5 mg Glucose (Glucose Gel 15 Gm Gel..Gram.) 15 gm PO Q15M PRN; Protocol PRN Reason: per Hypoglycemia Standing Ord. Ceftriaxone Sodium 1 gm/ (Sodium Chloride) 50 mls @ 100 mls/hr IV Q24H [facility] Last Infusion: 05/22/24 03:42 Dose: Infused Dextrose (D10) 250 mls @ 750 mls/hr IV Q15M PRN; Protocol PRN Reason: per Hypoglycemia Standing Ord. Sodium Chloride (Ns) 1,000 mls @ 100 mls/hr IVCONT .Q10H [facility] Last Admin: 05/22/24 12:17 Dose: 100 mls/hr Insulin Human Lispro (Insulin Lispro 100 Unit/Ml 3 Ml Vial) 0 unit SUBCUT QIDACHS [facility]; Protocol Last Admin: 05/22/24 11:29 Dose: 4 unit Magnesium Hydroxide (Milk Of Magnesia 30 Ml Oral.Susp) 30 ml PO DAILY PRN PRN Reason: Constipation Melatonin (Melatonin 3 Mg Tablet) 6 mg PO BEDTIME PRN PRN Reason: Insomnia Metoprolol Tartrate (Metoprolol Tartrate 50 Mg Tablet) 50 mg PO BID [facility]; Protocol Last Admin: 05/22/24 08:30 Dose: 50 mg Ondansetron HCl (Ondansetron Hcl 4 Mg/2 Ml Vial) 4 mg IVPUSH Q8H PRN PRN Reason: Nausea and Vomiting Sodium Chloride (0.9 % Sodium Chloride Flush 3 Ml Syringe) 3 ml IVFLUSH QSHIFT [facility] Last Admin: 05/22/24 08:31 Dose: 3 ml Tamsulosin HCl (Tamsulosin Hcl 0.4 Mg Capsule) 0.4 mg PO BEDTIME [facility] Last Admin: 05/21/24 22:24 Dose: 0.4 mg Vancomycin HCl (Vancomycin Hcl 125 Mg Capsule) 125 mg PO Q6H [facility] Stop: 06/01/24 12:14 Home Medications ?Medication ?Instructions ?Recorded ?Confirmed ?Last Taken ?Type lancets 28 gauge #100 ea 03/14/21 12/08/23 Unknown History cholecalciferol (vitamin D3) 25 25 mcg PO DAILY 03/04/24 05/21/24 05/20/24 History mcg (1,000 unit) tablet cyanocobalamin (vitamin B-12) 500 500 mcg PO DAILY 03/04/24 05/21/24 05/20/24 History mcg tablet tamsulosin 0.4 mg capsule 0.4 mg PO BEDTIME 03/04/24 05/21/24 Unknown History bethanechol chloride 25 mg tablet 25 mg PO BID 05/21/24 05/21/24 05/20/24 History Physical Exam Vital Signs: Vital Signs: Last Vital Signs Temp 97.9 F 05/22/24 10:39 Pulse 57 05/22/24 10:39 Resp 16 05/22/24 10:39 BP 107/56 L 05/22/24 10:39 Pulse Ox 97 05/22/24 10:39 O2 Del Method Room Air 05/22/24 10:39 BMI result Body Mass Index 24.7 Const: General: cooperative, comfortable, no acute distress, alert and awake Nutritional Appearance: average body habitus Orientation/consciousness: patient oriented x3 HEENT: Head: Yes normocephalic and Yes atraumatic Neck: Neck: Yes trachea midline, Yes supple and Yes no JVD Resp: Effort & Inspection: normal respiratory effort Auscultation: clear to auscultation bilaterally Cardio: Jugular venous distension: no JVD Palpation: normal PMI Rate: regular rate Rhythm: regular rhythm Heart sounds: S1 normal heart sound present, S2 normal heart sound present, no click, no gallops and no murmurs GI: Auscultation: normal bowel sounds Skin: General skin exam: erythema and other (Diffuse maculopapular rash) Neuro: General: patient oriented x3 and no focal motor deficits Extrem: General: Yes no clubbing, cyanosis or edema Objective Labs and Meds 05/21/24 05:04 05/22/24 07:54 Lab results: Laboratory Results - last 24 hr 05/21/24 05/21/24 05/21/24 13:44 18:00 22:14 Hold Purple Top Sodium Potassium Chloride Carbon Dioxide Anion Gap BUN Creatinine Estim Creat Clear Calc Estimated GFR POC Glucose 235 H 212 H 176 H Random Glucose Calcium 05/22/24 05/22/24 05/22/24 07:54 08:11 10:43 Hold Purple Top SEE NOTE Sodium 139 Potassium 3.9 Chloride 111 H Carbon Dioxide 17 L Anion Gap 15 BUN 35 H Creatinine 1.51 H Estim Creat Clear Calc 52.0 Estimated GFR 46 POC Glucose 174 H 250 H Random Glucose 172 H Calcium 8.0 L Assessment and Plan (1) Sinus tachycardia: Status: Acute Sinus tachycardia as response to his underlying medical condition with severe sepsis. EKG changes at that time without any evidence of troponin elevation. Most likely rate related. Can consider outpatient myocardial perfusion imaging through his own jewelry consultant. Continue metoprolol therapy. Continue to treat aggressively underlying medical condition. (2) PAF (paroxysmal atrial fibrillation): Status: Acute Paroxysmal atrial fibrillation without any obvious clinical recurrence at this point time. Continue metoprolol therapy. Continue full oral anticoagulation, currently on Eliquis. Continue treat underlying medical condition aggressively. Will sign of the case. Will follow-up as outpatient. Procedures Date of Service Date of Service: 05/22/24
[2024-05-22] MEDS: vancomycin HCL 125 MG CAPSULE PO ×2 (13:02→18:06)
[2024-05-22 16:44] LABS: Glucose, Whole Blood 177 mg/dL (60-115)
[2024-05-22] MEDS: Tamsulosin HCL 0.4 MG CAPSULE PO (20:33)
[2024-05-22] MEDS: Finasteride 5 MG TABLET PO (20:34)
[2024-05-22 20:41] LABS: Glucose, Whole Blood 165 mg/dL (60-115)
[2024-05-23] VITALS (7 sets, daily range): BP systolic 105–138; BP diastolic 55–65; PULSE 87–107; RESP 18–20; TEMP 36.3–36.8; O2SAT 97–100
[2024-05-23] MEDS: cefTRIAXone sodium 1 GM in 0.9 % Sodium Chloride 50 ML IV (03:10)
[2024-05-23] MEDS: vancomycin HCL 125 MG CAPSULE PO ×4 (03:20→20:06)
--- NOTE | 2024-05-23 07:21 | PM.DS ---
DS: Providers Provider Date of admission: 05/21/24 02:36 Primary care physician: Unknown Physician Consults: 05/21/24 06:44 Consult to Infectious Diseases Routine Consulting Provider: [facility] Reason for consultation: ?cdiff 05/21/24 16:18 Consult to Cardiology Routine Consulting Provider: [facility] Reason for consultation: tachycardia, SVT 05/22/24 07:48 Consult to Urology Routine Consulting Provider: [facility] Reason for consultation: abnormal renal us DS: Diagnosis Discharge Diagnosis (1) Sinus tachycardia: Status: Acute (2) PAF (paroxysmal atrial fibrillation): Status: Acute Physical Exam Vital Signs: Vital Signs: Last Vital Signs Temp 97.5 F 05/23/24 03:34 Pulse 87 05/23/24 03:34 Resp 18 05/23/24 03:34 BP 128/59 L 05/23/24 03:34 Pulse Ox 98 05/23/24 03:34 O2 Del Method Room Air 05/23/24 03:34 BMI result Body Mass Index 24.7 DS: Data Data Completed and Pending Completed studies during hospitalization [Text1]: Procedures Detachment at Left 1st Toe, Complete, Open Approach (01/23/21) Detachment at Left 2nd Toe, Low, Open Approach (10/10/20) Detachment at Left 3rd Toe, Complete, Open Approach (01/13/22) Dilation of Left Posterior Tibial Artery, Percutaneous Approach (01/23/21) Excision of Left Foot Skin, External Approach (01/23/21) Insertion of Infusion Device into Right Brachial Vein, Percutaneous Approach (03/04/24) Insertion of Infusion Device into Superior Vena Cava, Percutaneous Approach (01/13/22) Labs on day of discharge: Laboratory Results - last 24 hr 05/22/24 05/22/24 05/22/24 07:54 08:11 10:43 Hold Purple Top SEE NOTE Sodium 139 Potassium 3.9 Chloride 111 H Carbon Dioxide 17 L Anion Gap 15 BUN 35 H Creatinine 1.51 H Estim Creat Clear Calc 52.0 Estimated GFR 46 POC Glucose 174 H 250 H Random Glucose 172 H Calcium 8.0 L 05/22/24 05/22/24 16:35 20:33 Hold Purple Top Sodium Potassium Chloride Carbon Dioxide Anion Gap BUN Creatinine Estim Creat Clear Calc Estimated GFR POC Glucose 177 H 165 H Random Glucose Calcium Preliminary micro results at discharge 05/21/24 00:41 Blood Culture - Preliminary Blood - Venous No growth after 48 hours. 05/21/24 00:41 Blood Culture - Preliminary Blood - Venous No growth after 48 hours. 05/21/24 Unknown Urine Culture - Preliminary Urine Catheterized - Davis Catheter Gram negative randy Discharge Plan Discharge Referrals: Physician,Unknown J [Primary Care Provider] - 1 Week Discharge Medications: No Action metoprolol tartrate 50 mg tablet 50 mg PO BID 90 Days Qty: 180 3RF Eliquis 5 mg tablet 5 mg PO BID Qty: 180 3RF Hold Instructions: Resume on 10/12/20. Resume taking your Eliquis on 10/12/2020, after your visit with the visiting nurse. bethanechol chloride 25 mg tablet 25 mg PO BID cyanocobalamin (vitamin B-12) 500 mcg Tablet 500 mcg PO DAILY tamsulosin 0.4 mg capsule 0.4 mg PO BEDTIME cholecalciferol (vitamin D3) 25 mcg (1,000 unit) Tablet 25 mcg PO DAILY (DME) lancets 28 gauge misc See Rx Instructions topical DAILY Qty: 100 Rx Instructions: As directed finasteride 5 mg tablet 5 mg PO BEDTIME 90 Days Qty: 90 1RF Print Language: Serbian
[2024-05-23 07:38] LABS: Glucose, Whole Blood 167 mg/dL (60-115)
[2024-05-23] MEDS: Insulin Lispro 100 UNIT/ML 3 ML VIAL SUBCUT ×4 (08:22→21:56)
[2024-05-23] MEDS: Apixaban 5 MG TABLET PO ×2 (08:22→20:06)
[2024-05-23] MEDS: Metoprolol Tartrate 50 MG TABLET PO ×2 (08:22→20:06)
[2024-05-23] MEDS: 0.9 % Sodium Chloride 1,000 ML 100 ML IVCONT ×2 (08:28→16:52)
[2024-05-23] MEDS: 0.9 % Sodium Chloride Flush 3 ML SYRINGE IVFLUSH ×3 (08:29→20:13)
[2024-05-23 09:28] LABS: Anion Gap 14 (12-20); Blood Urea Nitrogen 27 mg/dL (9-16); Calcium 7.5 mg/dL (8.4-10.2); Carbon Dioxide 15 mmol/L (22-29); Chloride 114 mmol/L (96-108); Creatinine Clr Calc Pharmacy 58.6; Estimated Glomerular Filt Rate 52; Glucose Random 156 mg/dL (60-115); Potassium 3.8 mmol/L (3.3-5.1); Sodium 139 mmol/L (135-145)
[2024-05-23 11:05] LABS: Glucose, Whole Blood 195 mg/dL (60-115)
--- NOTE | 2024-05-23 15:20 | MHC.CM.PN ---
EMR reviewed and per MD rounds, pt is not medically cleared for discharge due to management of UTI/Sepsis. Anticipating pt will discharge tomorrow home with resumption of previous [facility] services.
[2024-05-23 15:58] LABS: Glucose, Whole Blood 201 mg/dL (60-115)
--- NOTE | 2024-05-23 16:02 | P.CNUR_ITS ---
History of Present Illness Consult details Consult date: 05/23/24 Narrative: CC: Incomplete bladder emptying 74-year-old male Known to Urology Incomplete bladder emptying secondary to diabetic neuropathy Optimized on bladder medications and bethanechol Presents with recurrent UTI - E coli resistant to Bactrim, gentamicin, ampicillin Prior imaging with - Mild bilateral hydronephrosis and ureteral dilatation. Thick-walled trabeculated bladder suggestive of bladder outlet obstruction CIC has previously been discussed May require suprapubic tube placement Outpatient follow-up Review of Systems 2 Constitutional: Constitutional: Denies chills and Denies fever(s) Cardiovascular: Cardiovascular: Reports no additional cardiovascular complaints and Denies syncope Respiratory: Respiratory: Denies cough Gastrointestinal: Gastrointestinal: Denies abdominal pain and Denies heartburn Genitourinary: Genitourinary: Reports as per HPI and Denies change in libido Neurologic: Denies syncope Psychiatric: Psychiatric: Denies change in libido Endocrine: Endocrine: Denies change in libido [facility] Past Medical History Medical History Bladder outlet obstruction Psoriasis Sepsis Elevated cholesterol Anemia BPH (benign prostatic hyperplasia) Diabetes Vitamin D deficiency Neuropathy HTN (hypertension) Chronic a-fib Amputation of great toe Osteomyelitis PVD (peripheral vascular disease) Amputation of toe of left foot Pre-diabetes History of neuropathy Arrhythmia Osteomyelitis of second toe of left foot Ulcer of left second toe Amputated toe of right foot History of heart valve abnormality Family History Family History Mother CAD (coronary artery disease) Surgical History Surgical History History of amputation of toe Status post amputation of toe Hx of amputation Status post ORIF of fracture of ankle Social History Social History Household Members: Family Housing: House Are you a primary healthcare economics consultant to a significant other at home: No Do you presently have visiting nurse or other home services: No (had visiting nurse up until recently) Alcohol intake: never Comment: scheduled med Patient Tobacco Use Status: Never used Tobacco Second Hand Smoke Exposure: No Advance Directives Date on File: 08/07/20 service: No Current occupational status: retired Meds Allergies Allergy/AdvReac Type Severity Reaction Status Date / Time penicillin V Allergy Intermediate rash Verified 05/20/24 23:41 amoxicillin Allergy Unknown Verified 05/20/24 23:41 Erythromycin Allergy Intermediate diarrhea Uncoded 05/20/24 23:41 Active Medications: Current Medications Acetaminophen (Acetaminophen 325 Mg Tablet) 650 mg PO Q6H PRN PRN Reason: Pain, Mild (Pain Scale 1-3), fever or headache Last Admin: 05/21/24 09:13 Dose: 650 mg Apixaban (Apixaban 5 Mg Tablet) 5 mg PO BID [facility] Last Admin: 05/23/24 08:22 Dose: 5 mg Calcium Carbonate (Calcium Carbonate 750 Mg Tab.Chew) 750 mg PO Q4H PRN PRN Reason: Heartburn Finasteride (Finasteride 5 Mg Tablet) 5 mg PO BEDTIME [facility] Last Admin: 05/22/24 20:34 Dose: 5 mg Glucose (Glucose Gel 15 Gm Gel..Gram.) 15 gm PO Q15M PRN; Protocol PRN Reason: per Hypoglycemia Standing Ord. Ceftriaxone Sodium 1 gm/ (Sodium Chloride) 50 mls @ 100 mls/hr IV Q24H [facility] Last Infusion: 05/23/24 03:40 Dose: Infused Dextrose (D10) 250 mls @ 750 mls/hr IV Q15M PRN; Protocol PRN Reason: per Hypoglycemia Standing Ord. Sodium Chloride (Ns) 1,000 mls @ 100 mls/hr IVCONT .Q10H [facility] Last Admin: 05/23/24 08:28 Dose: 100 mls/hr Insulin Human Lispro (Insulin Lispro 100 Unit/Ml 3 Ml Vial) 0 unit SUBCUT QIDACHS [facility]; Protocol Last Admin: 05/23/24 12:02 Dose: 2 unit Magnesium Hydroxide (Milk Of Magnesia 30 Ml Oral.Susp) 30 ml PO DAILY PRN PRN Reason: Constipation Melatonin (Melatonin 3 Mg Tablet) 6 mg PO BEDTIME PRN PRN Reason: Insomnia Metoprolol Tartrate (Metoprolol Tartrate 50 Mg Tablet) 50 mg PO BID [facility]; Protocol Last Admin: 05/23/24 08:22 Dose: 50 mg Ondansetron HCl (Ondansetron Hcl 4 Mg/2 Ml Vial) 4 mg IVPUSH Q8H PRN PRN Reason: Nausea and Vomiting Sodium Chloride (0.9 % Sodium Chloride Flush 3 Ml Syringe) 3 ml IVFLUSH QSHIFT [facility] Last Admin: 05/23/24 08:29 Dose: 3 ml Tamsulosin HCl (Tamsulosin Hcl 0.4 Mg Capsule) 0.4 mg PO BEDTIME [facility] Last Admin: 05/22/24 20:33 Dose: 0.4 mg Vancomycin HCl (Vancomycin Hcl 125 Mg Capsule) 125 mg PO QID@0300,0900,1500,2100 [facility] Last Admin: 05/23/24 15:24 Dose: 125 mg Home Medications ?Medication ?Instructions ?Recorded ?Confirmed ?Last Taken ?Type lancets 28 gauge #100 ea 03/14/21 12/08/23 Unknown History cholecalciferol (vitamin D3) 25 25 mcg PO DAILY 03/04/24 05/21/24 05/20/24 History mcg (1,000 unit) tablet cyanocobalamin (vitamin B-12) 500 500 mcg PO DAILY 03/04/24 05/21/24 05/20/24 History mcg tablet tamsulosin 0.4 mg capsule 0.4 mg PO BEDTIME 03/04/24 05/21/24 Unknown History bethanechol chloride 25 mg tablet 25 mg PO BID 05/21/24 05/21/24 05/20/24 History Physical Exam 2 Vital Signs: Vital Signs: Last Vital Signs Temp 97.3 F 05/23/24 15:47 Pulse 102 H 05/23/24 15:47 Resp 20 05/23/24 15:47 BP 119/56 L 05/23/24 15:47 Pulse Ox 99 05/23/24 15:47 O2 Del Method Room Air 05/23/24 15:47 BMI result Body Mass Index 24.7 Const: General: cooperative, healthy appearing, comfortable and no acute distress Orientation/consciousness: patient oriented x3 HEENT: Face and sinus: Yes normal facial exam Mouth: moist mucous membranes Neck: Neck: Yes normal visual inspection, Yes full ROM and Yes trachea midline Chest: Chest palpation & inspection: normal inspection of the chest Resp: Effort & Inspection: normal respiratory effort, able to speak in complete sentences and no respiratory distress GI: Inspection: Yes normal to inspection Back/Spine/Pelvis: Cervical Spine: normal cervical lordosis Thoracic/Lumbar Spine: thoracic and lumbar spine normal to inspection Skin: General skin exam: no rashes or lesions noted Neuro: General: patient oriented x3, gait normal, tone normal and moves all extremities Extrem: General: Yes normal to inspection and Yes capillary refill normal Results Labs 05/21/24 05:04 05/23/24 08:09 Labs: Abnormal lab results 05/22/24 05/22/24 05/23/24 Range/Units 16:35 20:33 07:33 Chloride (96-108) mmol/L Carbon Dioxide (22-29) mmol/L BUN (9-16) mg/dL POC Glucose 177 H 165 H 167 H (60-115) mg/dL Random Glucose (60-115) mg/dL Calcium (8.4-10.2) mg/dL 05/23/24 05/23/24 05/23/24 Range/Units 08:09 10:55 15:54 Chloride 114 H (96-108) mmol/L Carbon Dioxide 15 L (22-29) mmol/L BUN 27 H (9-16) mg/dL POC Glucose 195 H 201 H (60-115) mg/dL Random Glucose 156 H (60-115) mg/dL Calcium 7.5 L D (8.4-10.2) mg/dL BMP 05/23/24 08:09 Sodium 139 Potassium 3.8 Chloride 114 H Carbon Dioxide 15 L BUN 27 H Creatinine 1.34 Calcium 7.5 L D Urine 05/21/24 Range/Units 01:50 Urine Color Straw Urine Appearance Turbid Urine pH 5.5 (5.0-9.0) Ur Specific [place] 1.010 (1.005-1.025) Urine Protein 300 (3+) H (Neg-Trace) mg/dL Urine Glucose (UA) 100 H (Negative) mg/dL All other labs normal. Assessment and Plan (1) UTI (urinary tract infection): Status: Acute (2) Diabetic neuropathy associated with diabetes mellitus due to underlying condition: Status: Acute (3) Urinary retention with incomplete bladder emptying: Status: Acute Plan Outpatient follow-up Procedures Date of Service Date of Service: 05/23/24
--- NOTE | 2024-05-23 17:09 | HO.PM.IMPN ---
Subjective Subjective Date of Service: 05/23/24 Interval History: Seen in follow up for UTI with sepsis, BHUMI INterval history: Reports rash on bilateral forearms, no pruritus. Still with non bloody diarrhea. No abd pain, fevers, anorexia. Still with intermittent sinus tachycardia/NSVT Review of Systems Review of Systems: Yes all other systems are reviewed and are negative Physical Exam Vital Signs: Vital Signs: Last Vital Signs Temp 97.3 F 05/23/24 15:47 Pulse 102 H 05/23/24 15:47 Resp 20 05/23/24 15:47 BP 119/56 L 05/23/24 15:47 Pulse Ox 99 05/23/24 15:47 O2 Del Method Room Air 05/23/24 15:47 BMI result Body Mass Index 24.7 Constitutional - Awake and Alert, No apparent distress Eyes - PERRLA, EOMI Cardiovascular - S1S2, RRR, No edema Respiratory - Normal lung expansion, Normal respiratory effort, No respiratory distress, CTA bilaterally Gastrointestinal - NT / ND; +BS; No rebound or guarding Extremities - no calf tenderness bilaterally, no swelling Skin - Warm/Dry. maculopapular rash bilateral forearms Neurological - Alert & oriented x3 Psychological - Appropriate affect Objective Data Active Medications Acetaminophen (Acetaminophen 325 Mg Tablet) 650 mg PO Q6H PRN PRN Reason: Pain, Mild (Pain Scale 1-3), fever or headache Last Admin: 05/21/24 09:13 Dose: 650 mg Documented By: JOAN Apixaban (Apixaban 5 Mg Tablet) 5 mg PO BID [facility] Last Admin: 05/23/24 08:22 Dose: 5 mg Documented By: SARAH Calcium Carbonate (Calcium Carbonate 750 Mg Tab.Chew) 750 mg PO Q4H PRN PRN Reason: Heartburn Finasteride (Finasteride 5 Mg Tablet) 5 mg PO BEDTIME [facility] Last Admin: 05/22/24 20:34 Dose: 5 mg Documented By: SHAMAR Glucose (Glucose Gel 15 Gm Gel..Gram.) 15 gm PO Q15M PRN; Protocol PRN Reason: per Hypoglycemia Standing Ord. Ceftriaxone Sodium 1 gm/ (Sodium Chloride) 50 mls @ 100 mls/hr IV Q24H [facility] Last Infusion: 05/23/24 03:40 Dose: Infused Documented By: SHAMAR Dextrose (D10) 250 mls @ 750 mls/hr IV Q15M PRN; Protocol PRN Reason: per Hypoglycemia Standing Ord. Sodium Chloride (Ns) 1,000 mls @ 100 mls/hr IVCONT .Q10H [facility] Last Admin: 05/23/24 16:52 Dose: 100 mls/hr Documented By: SARAH Insulin Human Lispro (Insulin Lispro 100 Unit/Ml 3 Ml Vial) 0 unit SUBCUT QIDACHS [facility]; Protocol Last Admin: 05/23/24 16:14 Dose: 4 unit Documented By: SARAH Magnesium Hydroxide (Milk Of Magnesia 30 Ml Oral.Susp) 30 ml PO DAILY PRN PRN Reason: Constipation Melatonin (Melatonin 3 Mg Tablet) 6 mg PO BEDTIME PRN PRN Reason: Insomnia Metoprolol Tartrate (Metoprolol Tartrate 50 Mg Tablet) 50 mg PO BID [facility]; Protocol Last Admin: 05/23/24 08:22 Dose: 50 mg Documented By: SARAH Ondansetron HCl (Ondansetron Hcl 4 Mg/2 Ml Vial) 4 mg IVPUSH Q8H PRN PRN Reason: Nausea and Vomiting Sodium Chloride (0.9 % Sodium Chloride Flush 3 Ml Syringe) 3 ml IVFLUSH QSHIFT [facility] Last Admin: 05/23/24 16:15 Dose: 3 ml Documented By: SARAH Tamsulosin HCl (Tamsulosin Hcl 0.4 Mg Capsule) 0.4 mg PO BEDTIME [facility] Last Admin: 05/22/24 20:33 Dose: 0.4 mg Documented By: SHAMAR Vancomycin HCl (Vancomycin Hcl 125 Mg Capsule) 125 mg PO QID@0300,0900,1500,2100 [facility] Last Admin: 05/23/24 15:24 Dose: 125 mg Documented By: SARAH Labs 05/21/24 05:04 05/23/24 08:09 Labs: Laboratory Results - last 24 hr 05/22/24 05/23/24 05/23/24 20:33 07:33 08:09 Anion Gap 14 Estim Creat Clear Calc 58.6 Estimated GFR 52 POC Glucose 165 H 167 H Random Glucose 156 H Calcium 7.5 L D 05/23/24 05/23/24 10:55 15:54 Anion Gap Estim Creat Clear Calc Estimated GFR POC Glucose 195 H 201 H Random Glucose Calcium Microbiology Microbiology Results: Microbiology 05/21/24 Unknown Urine Culture - Final Urine Catheterized - Davis Catheter Escherichia coli 05/21/24 00:41 Blood Culture - Preliminary Blood - Venous No growth after 48 hours. 05/21/24 00:41 Blood Culture - Preliminary Blood - Venous No growth after 48 hours. Assessment and Plan (1) UTI (urinary tract infection): Status: Acute (2) Sepsis: Status: Acute Plan This is a 74-year-old male with pertinent history of MSSA bacteremia, BPH, permanent atrial fibrillation on Eliquis who presents to the emergency department for evaluation of fever. SVT/ST - 05/23 NSVT up to 3 beats when ambulating intermittent episodes with HR up to 160-170 with ambulation, resolves with rest. BP stable s/p treated with IV lopressor continue home dose of BB cardiology consultation>continue current tx. Keep K>4 and Mag >4. Repleted. Rediscuss NSVT with cardiology tomorrow Cdiff Toxin B po, Toxin AB neg having diarrhea start oral vancomycin x10 days (initiated 05/22) Sepsis due to acute UTI Resuscitated with IV crystalloids. Urine culture positive for e coli sensitive to ceftriaxone and levaquin IV Rocephin but dc'd duet o drug rash on bilateral forearms (05/21-). Initiate levaquin 750mg daily 05/23 blood cultures negative to date PAF continue BB and Eliquis Acute kidney injury stage I creat trending down Monitor creatinine and urine output. Change NS to LR due to hyperchloremia Avoid nephrotoxins Follow renal function/lytes Hyperglycemia A1C 6.7, guidelines suggest tx initiation when A1C is >7 continue ss while inpatient Chronic left foot ulcer No concern for infection on admission. Consulting Wound Care Chronic normocytic anemia Hemoglobin above transfusion threshold DISPO PT consult pending DVT prophylaxis: Eliquis Full code Sen by PT recommending home with services Patient requires ongoing inpatient stay for ongoing IV antibiotics for UTI with sepsis and ongoing cardiac monitoring given new NS VT requiring repletion of electrolyte levels and expert consultation Quality Stroke Does the patient have a stroke diagnosis?: No VTE Prior VTE?: No VTE Risk Level:: Medical - moderate - high VTE Device Contraindication: Treatment Not Indicated VTE Drug Contraindication: N/A - Med Ordered
[2024-05-23] MEDS: Potassium Chloride Packet 20 MEQ PACKET 40 MEQ PO (17:47)
[2024-05-23] MEDS: levoFLOXacin/D5W 500 MG/100 ML PIGGYBACK 100 MG IV (17:48)
[2024-05-23] MEDS: Lactated Ringers 1,000 ML 100 ML IVCONT (18:09)
[2024-05-23 18:32] LABS: Magnesium 1.9 mg/dL (1.6-2.6)
[2024-05-23] MEDS: levoFLOXacin/D5W 250 MG/50 ML PIGGYBACK 50 MG IV (20:06)
[2024-05-23] MEDS: Finasteride 5 MG TABLET PO (20:06)
[2024-05-23] MEDS: Tamsulosin HCL 0.4 MG CAPSULE PO (20:06)
[2024-05-23 21:18] LABS: Glucose, Whole Blood 166 mg/dL (60-115)
[2024-05-24] VITALS (7 sets, daily range): BP systolic 116–160; BP diastolic 53–74; PULSE 70–93; RESP 18–20; TEMP 36–36.3; O2SAT 96–100
[2024-05-24] MEDS: Lactated Ringers 1,000 ML 100 ML IVCONT (02:51)
[2024-05-24] MEDS: vancomycin HCL 125 MG CAPSULE PO ×4 (02:51→20:39)
[2024-05-24 07:09] LABS: Glucose, Whole Blood 151 mg/dL (60-115)
[2024-05-24] MEDS: Metoprolol Tartrate 50 MG TABLET PO ×2 (08:04→20:39)
[2024-05-24] MEDS: Insulin Lispro 100 UNIT/ML 3 ML VIAL SUBCUT ×3 (08:04→20:42)
[2024-05-24] MEDS: 0.9 % Sodium Chloride Flush 3 ML SYRINGE IVFLUSH ×3 (08:04→23:18)
[2024-05-24] MEDS: Apixaban 5 MG TABLET PO ×2 (08:04→20:39)
[2024-05-24 09:35] LABS: Anion Gap 12 (12-20); Blood Urea Nitrogen 22 mg/dL (9-16); Calcium 7.5 mg/dL (8.4-10.2); Carbon Dioxide 18 mmol/L (22-29); Chloride 113 mmol/L (96-108); Creatinine Clr Calc Pharmacy 63.9; Estimated Glomerular Filt Rate 58; Glucose Random 230 mg/dL (60-115); Magnesium 1.7 mg/dL (1.6-2.6); Potassium 3.5 mmol/L (3.3-5.1); Sodium 139 mmol/L (135-145)
[2024-05-24 11:00] LABS: Glucose, Whole Blood 194 mg/dL (60-115)
--- NOTE | 2024-05-24 15:17 | P.PNIM_ITS ---
Subjective Subjective Date of Service: 05/24/24 Interval History: UTI , BHUMI Review of Systems bhumi seems improved no abd pain tele seems fine Physical Exam 2 Vital Signs: Vital Signs: Last Vital Signs Temp 96.8 F 05/24/24 11:14 Pulse 76 05/24/24 11:14 Resp 20 05/24/24 11:14 BP 120/58 L 05/24/24 11:14 Pulse Ox 100 05/24/24 11:14 O2 Del Method Room Air 05/24/24 11:14 BMI result Body Mass Index 24.7 Appearance: Alert.? Oriented X3.? cvs: rrr, [id number] . res: clear to auscultation ,no rhonchii or wheezing abd: no rebound or guarding ,nt, bs present. ext pulses present , no cyanosis. neuro: axo3 , nonfocal. Objective Data Active Medications Acetaminophen (Acetaminophen 325 Mg Tablet) 650 mg PO Q6H PRN PRN Reason: Pain, Mild (Pain Scale 1-3), fever or headache Last Admin: 05/21/24 09:13 Dose: 650 mg Documented By: JOAN Apixaban (Apixaban 5 Mg Tablet) 5 mg PO BID [facility] Last Admin: 05/24/24 08:04 Dose: 5 mg Documented By: SARAH Calcium Carbonate (Calcium Carbonate 750 Mg Tab.Chew) 750 mg PO Q4H PRN PRN Reason: Heartburn Finasteride (Finasteride 5 Mg Tablet) 5 mg PO BEDTIME [facility] Last Admin: 05/23/24 20:06 Dose: 5 mg Documented By: MACKENZIE Glucose (Glucose Gel 15 Gm Gel..Gram.) 15 gm PO Q15M PRN; Protocol PRN Reason: per Hypoglycemia Standing Ord. Dextrose (D10) 250 mls @ 750 mls/hr IV Q15M PRN; Protocol PRN Reason: per Hypoglycemia Standing Ord. Levofloxacin (Levaquin) 250 mg in 50 mls @ 50 mls/hr IV Q24H [facility] Last Infusion: 05/23/24 21:54 Dose: Infused Documented By: MACKENZIE Levofloxacin (Levaquin) 500 mg in 100 mls @ 100 mls/hr IV Q24H [facility] Last Infusion: 05/23/24 20:14 Dose: Infused Documented By: MACKENZIE Insulin Human Lispro (Insulin Lispro 100 Unit/Ml 3 Ml Vial) 0 unit SUBCUT QIDACHS [facility]; Protocol Last Admin: 05/24/24 11:35 Dose: 2 unit Documented By: SARAH Magnesium Hydroxide (Milk Of Magnesia 30 Ml Oral.Susp) 30 ml PO DAILY PRN PRN Reason: Constipation Melatonin (Melatonin 3 Mg Tablet) 6 mg PO BEDTIME PRN PRN Reason: Insomnia Metoprolol Tartrate (Metoprolol Tartrate 50 Mg Tablet) 50 mg PO BID [facility]; Protocol Last Admin: 05/24/24 08:04 Dose: 50 mg Documented By: SARAH Ondansetron HCl (Ondansetron Hcl 4 Mg/2 Ml Vial) 4 mg IVPUSH Q8H PRN PRN Reason: Nausea and Vomiting Sodium Chloride (0.9 % Sodium Chloride Flush 3 Ml Syringe) 3 ml IVFLUSH QSHIFT [facility] Last Admin: 05/24/24 08:04 Dose: 3 ml Documented By: SARAH Tamsulosin HCl (Tamsulosin Hcl 0.4 Mg Capsule) 0.4 mg PO BEDTIME [facility] Last Admin: 05/23/24 20:06 Dose: 0.4 mg Documented By: MACKENZIE Vancomycin HCl (Vancomycin Hcl 125 Mg Capsule) 125 mg PO QID@0300,0900,1500,2100 [facility] Last Admin: 05/24/24 08:04 Dose: 125 mg Documented By: SARAH Labs 05/21/24 05:04 05/24/24 09:05 Labs: Laboratory Results - last 24 hr 05/23/24 05/23/24 05/23/24 08:09 15:54 21:15 Anion Gap Estim Creat Clear Calc Estimated GFR POC Glucose 201 H 166 H Random Glucose Calcium Magnesium 1.9 05/24/24 05/24/24 05/24/24 07:03 09:05 10:53 Anion Gap 12 Estim Creat Clear Calc 63.9 Estimated GFR 58 POC Glucose 151 H 194 H Random Glucose 230 H Calcium 7.5 L Magnesium 1.7 Assessment and Plan (1) UTI (urinary tract infection): Status: Acute Plan 74-year-old male with pertinent history of MSSA bacteremia, BPH, permanent atrial fibrillation on Eliquis who presents to the emergency department for evaluation of fever. SVT/ST - 05/23 NSVT up to 3 beats when ambulating no new episodes hr improving added potassium and magnesium continue current tx. Keep K>4 and Mag >4. Cdiff Toxin B po, Toxin AB neg having diarrhea start oral vancomycin x10 days (initiated 05/22) Sepsis due to acute UTI Resuscitated with IV crystalloids. Urine culture positive for e coli sensitive to ceftriaxone and levaquin IV Rocephin but dc'd duet o drug rash on bilateral forearms (05/21-). Initiate levaquin 750mg daily 05/23 blood cultures negative to date PAF continue BB and Eliquis Acute kidney injury stage I creat trending down Monitor creatinine and urine output. Change NS to LR due to hyperchloremia Avoid nephrotoxins Follow renal function/lytes Hyperglycemia A1C 6.7, guidelines suggest tx initiation when A1C is >7 continue ss while inpatient Chronic left foot ulcer No concern for infection on admission. Consulting Wound Care Chronic normocytic anemia Hemoglobin above transfusion threshold Left plantar dm wound: seen by wound care recomended : Turn and Reposition every 2 hours and as needed for patient comfort.? Use pillows or wedges to support off loading positions. Off Load all bony prominences with use of pillows and heel boots if needed.? Apply Preventative foams where needed. ? Monitor for incontinence and moisture control, use barrier creams when needed for prevention and treatment. Provide adequate and supplemental nutrition.? When applicable maintain blood glucose levels per Providers order. Left Plantar - Cleanse and irrigate with NS wound wash, pat dry. lightly pack wound beds with cut to size Dur[employer] cover with foam dressing. Change every other day. DISPO PT consult pending DVT prophylaxis: Alba Full code Sen by PT recommending home with services ongoing inpatient stay for ongoing IV antibiotics for UTI with sepsis and ongoing cardiac monitoring given new NS VT requiring repletion of electrolyte levels and expert consultation Quality Stroke Does the patient have a stroke diagnosis?: No VTE Prior VTE?: No VTE Risk Level:: Medical - moderate - high VTE Device Contraindication: Treatment Not Indicated VTE Drug Contraindication: N/A - Med Ordered
[2024-05-24 16:07] LABS: Glucose, Whole Blood 138 mg/dL (60-115)
[2024-05-24] MEDS: Magnesium Oxide 400 MG TABLET PO (17:35)
[2024-05-24] MEDS: levoFLOXacin/D5W 500 MG/100 ML PIGGYBACK 100 MG IV (17:39)
[2024-05-24] MEDS: levoFLOXacin/D5W 250 MG/50 ML PIGGYBACK 50 MG IV (18:39)
[2024-05-24 20:02] LABS: Glucose, Whole Blood 179 mg/dL (60-115)
[2024-05-24] MEDS: Tamsulosin HCL 0.4 MG CAPSULE PO (20:39)
[2024-05-24] MEDS: Finasteride 5 MG TABLET PO (20:40)
[2024-05-25] MEDS: vancomycin HCL 125 MG CAPSULE PO ×2 (03:16→08:26)
[2024-05-25 03:35] VITALS: BP 126/60; PULSE 73; RESP 18; TEMP 36.1; O2SAT 98
[2024-05-25 07:09] VITALS: BP 146/70; PULSE 72; RESP 20; TEMP 36.4; O2SAT 97
[2024-05-25 07:33] LABS: Glucose, Whole Blood 139 mg/dL (60-115)
[2024-05-25] MEDS: Metoprolol Tartrate 50 MG TABLET PO (08:25)
[2024-05-25] MEDS: 0.9 % Sodium Chloride Flush 3 ML SYRINGE IVFLUSH (08:26)
[2024-05-25] MEDS: Apixaban 5 MG TABLET PO (08:26)
[2024-05-25] MEDS: Magnesium Oxide 400 MG TABLET PO (08:26)
[2024-05-25] MEDS: Insulin Lispro 100 UNIT/ML 3 ML VIAL SUBCUT (11:14)
[2024-05-25 11:15] VITALS: BP 131/61; PULSE 64; RESP 20; TEMP 36.1; O2SAT 99
[2024-05-25 11:15] LABS: Glucose, Whole Blood 167 mg/dL (60-115)
--- NOTE | 2024-05-25 12:23 | MHC.CM.PN ---
Second IMM given 05/25. Pt is medically cleared for discharge home with resumption of previous [facility] services. Pts brother Kalyan will transport him home.
--- NOTE | 2024-05-25 12:25 | PM.DS ---
DS: Providers Provider Date of Service: 05/25/24 Date of admission: 05/21/24 02:36 Date of discharge: 05/25/24 Primary care physician: Ramin Medrano MD Consults: 05/21/24 06:44 Consult to Infectious Diseases Routine Consulting Provider: [facility] Reason for consultation: ?cdiff 05/21/24 16:18 Consult to Cardiology Routine Consulting Provider: [facility] Reason for consultation: tachycardia, SVT 05/22/24 07:48 Consult to Urology Routine Consulting Provider: [facility] Reason for consultation: abnormal renal us Attending physician on discharge: Ana Cristina Griggs Discharging clinician: Ana Cristina Griggs DS: Diagnosis Discharge Diagnosis (1) UTI (urinary tract infection): Status: Acute DS: Summary Hospital Course Hospital Course: 74-year-old male with pertinent history of MSSA bacteremia, BPH, permanent atrial fibrillation on Eliquis who presents to the emergency department for evaluation of fever. Patient states he has not been feeling well for the past 3-4 days. He feels weak and has a dry cough. Patient also reports that he had a fever on the day of presentation. States he has had urinary frequency and urgency for a while. No chest pain, palpitations, shortness of breath, abdominal pain, changes in urinary habits. Patient states he could not get up from the bed due to weakness. Of note, patient was recently admitted with emesis a bacteremia and discharged on 03/11/2024 with 4 weeks of IV antibiotics. In the emergency department, patient was found to be febrile with temperature 102 degrees F. Also found to have BHUMI with creatinine 1.7. Patient was resuscitated with IV crystalloids and given IV ceftriaxone in the ER. Hospital course: patient with pertinent history of MSSA bacteremia, BPH, permanent atrial fibrillation on Eliquis who presents to the emergency department for evaluation of fever: Patient was found to have sepsis secondary to UTI, urine and blood culture sent, lactic acid normal , started on IV antibiotics-patient seems to be improved with the above management, no fever, blood cultures neg @48hrs, patient also has C diff positive, diarrhea: Also started on p.o. vanco, diarrhea improving-please complete the course of p.o. vanco for 8 more days.sepsis resolved. In addition patient was seen by Urology for urinary retention and incomplete bladder emptying- patient has Davis which he is going to go outpatient follow-up with Urology, complete antibiotics course, may need outpatient suprapubic catheter. BHUMI also improved with p.o. intake and hydration, monitor BMP outpatient. Patient mostly had episode of sinus tachycardia,?3 beat nsvt: Which seems to be improved with treating underlying above mentioned conditions. Monitor electrolytes and renal function closely. seen by cardiology-recent ef seems fine , tachycardia seems to be improved with treating underlying conditions, further management outpatient. Follow-up with patient outpatient cardiology. plan: Please complete vancomycin 125 mg p.o. q.i.d. for 8 more days. Levaquin 750 mg daily for 7 days. Monitor BMP closely Follow-up with Urology outpatient for further management of catheter and urinary retention. Also consider outpatient follow-up with the Cardiology. Above management discussed with the patient in detail length he understand in agreement with the above plan, time spent 40 minute. Time Attestation Total time managing care of this patient today: 40 mintues. Discharge Coordination Time (in mins): 40 min Quality: Safe Use of Opioids Does Pt have an Active Cancer Diagnosis on the Problem List?: No Quality: Stroke Does the patient have a stroke diagnosis?: No Physical Exam Vital Signs: Vital Signs: Last Vital Signs Temp 97.0 F 05/25/24 11:15 Pulse 64 05/25/24 11:15 Resp 20 05/25/24 11:15 BP 131/61 05/25/24 11:15 Pulse Ox 99 05/25/24 11:15 O2 Del Method Room Air 05/25/24 11:15 BMI result Body Mass Index 24.7 Appearance: Alert.? Oriented X3.? cvs: rrr, [id number] . res: clear to auscultation ,no rhonchii or wheezing abd: no rebound or guarding ,nt, bs present. ext pulses present , no cyanosis. neuro: axo3 , nonfocal. DS: Data Data Completed and Pending Completed studies during hospitalization [Text1]: Procedures Detachment at Left 1st Toe, Complete, Open Approach (01/23/21) Detachment at Left 2nd Toe, Low, Open Approach (10/10/20) Detachment at Left 3rd Toe, Complete, Open Approach (01/13/22) Dilation of Left Posterior Tibial Artery, Percutaneous Approach (01/23/21) Excision of Left Foot Skin, External Approach (01/23/21) Insertion of Infusion Device into Right Brachial Vein, Percutaneous Approach (03/04/24) Insertion of Infusion Device into Superior Vena Cava, Percutaneous Approach (01/13/22) Labs on day of discharge: Laboratory Results - last 24 hr 05/21/24 05/24/24 05/24/24 04:53 15:52 19:58 POC Glucose 138 H 179 H Stool Norovirus (PCR) SEE NOTE 05/25/24 05/25/24 07:08 11:03 POC Glucose 139 H 167 H Stool Norovirus (PCR) Preliminary micro results at discharge 05/21/24 00:41 Blood Culture - Preliminary Blood - Venous No growth after 48 hours. 05/21/24 00:41 Blood Culture - Preliminary Blood - Venous No growth after 48 hours. Imaging Chest x-ray: Radiologist's impression: ITS Impressions Chest X-Ray 05/21/24 01:14 IMPRESSION: Left lower lung field increased markings/scarring grossly similar to previous. No definitive new consolidation or definitive evidence for significant pleural effusions. Chest CT 05/21/24 02:10 IMPRESSION: Scarring and/or subsegmental atelectasis at the lung bases. No evidence for active infiltrate. Fleischner guidelines were followed. Renal Ultrasound 05/21/24 05:50 IMPRESSION: Mild fullness of the intrarenal collecting system bilaterally persists. No ureteral jets seen. Bladder diverticula. Bladder debris as above. Urologic assessment recommended. Discharge Plan Discharge Anticipated Discharge Date/Time: 05/25/24 11:45 Patient Disposition: Home Health Service Discharge Diagnosis: sepsis sec uti , c diff diarrhae, possible sinus tachy. Referrals: [facility] [Outside] - 1 Week David Boateng MD [Physician] - 1 Week Physician,Unknown J [Physician] - 1 Week Discharge Medications: New vancomycin 125 mg Capsule 125 mg PO QID@0300,0900,1500,2100 Qty: 32 0RF magnesium oxide 400 mg (241.3 mg magnesium) Tablet 400 mg PO BIDPC Qty: 20 0RF levofloxacin 750 mg tablet 750 mg PO DAILY Qty: 7 0RF potassium chloride 8 mEq capsule, extended release 8 meq PO DAILY Qty: 4 0RF Continued metoprolol tartrate 50 mg tablet 50 mg PO BID 90 Days Qty: 180 3RF Eliquis 5 mg tablet 5 mg PO BID Qty: 180 3RF Hold Instructions: Resume on 10/12/20. Resume taking your Eliquis on 10/12/2020, after your visit with the visiting nurse. bethanechol chloride 25 mg tablet 25 mg PO BID cyanocobalamin (vitamin B-12) 500 mcg Tablet 500 mcg PO DAILY tamsulosin 0.4 mg capsule 0.4 mg PO BEDTIME cholecalciferol (vitamin D3) 25 mcg (1,000 unit) Tablet 25 mcg PO DAILY (DME) lancets 28 gauge misc See Rx Instructions topical DAILY Qty: 100 Rx Instructions: As directed finasteride 5 mg tablet 5 mg PO BEDTIME 90 Days Qty: 90 1RF Discharge Orders: Discharge Order (Routine); Ordered 05/25/24 Ordered By: Ana Cristina Griggs Diet: Advance to usual diet Activity on Discharge: As tolerated Stand Alone Forms: Patient Portal Discharge page Print Language: [place] Other Ambulatory Orders: Basic Metabolic Panel (Routine) Timeframe: 1 Week Facility: [facility] - Location: Laboratory Ordered By: Ana Cristina Griggs Magnesium (Routine) Timeframe: 1 Week Facility: [facility] - Location: Laboratory Ordered By: Ana Cristina Griggs Care Plan Goals: patient with pertinent history of MSSA bacteremia, BPH, permanent atrial fibrillation on Eliquis who presents to the emergency department for evaluation of fever: Patient was found to have sepsis secondary to UTI, urine and blood culture sent, lactic acid normal , started on IV antibiotics-patient seems to be improved with the above management, no fever, blood cultures neg @48hrs, patient also has C diff positive, diarrhea: Also started on p.o. vanco, diarrhea improving-please complete the course of p.o. vanco for 8 more days. In addition patient was seen by Urology-considering history of urinary retention patient has Davis which he is going to go outpatient follow-up with Urology, complete antibiotics course, may need outpatient suprapubic catheter. BHUMI also improved with p.o. intake and hydration, monitor BMP outpatient. Patient mostly had episode of sinus tachycardia,?3 beat nsvt: Which seems to be improved with treating underlying above mentioned conditions. Monitor electrolytes and renal function closely. seen by cardiology-recent ef seems fine , tachycardia seems to be improved with treating underlying conditions, further management outpatient. Follow-up with patient outpatient cardiology. Health Concerns: as above. Plan of Treatment: as above. Assessment: as above.
--- NOTE | 2024-05-25 12:32 | W.MHC.F2F ---
Service Date Service Date: 05/25/24 Encounter Date of encounter: 05/25/24 Encounter: gala ,sepsis sec uti, sinus tachycardia Reasons for Services Signs and symptoms assessed: Palpitations or any urinary complaints or diarrhea. Reason for nursing home: wound care, medication management, medication treatment and teach disease management Reason for physical therapy: home safety and mobility, therapeutic exercises, restore joint function, gait/transfer training, assess need for DME, ADL training, energy conservation and other MD Overseeing Care: Ramin Medrano Homebound: Leaving the home is medically contraindicated at this time without the asist of a device and/or another person due th the listed conditions above and below. Reason homebound: weakness related to hospital stay Homebound supporting statement: Patient is generalized weak post hospitalization has multiple comorbidities including C diff, UTI, generalized weak -need help to go to her appointments, lab draws, PT, wound care. Certification: Based on the above findings, I certify that this patient is confined to the home and needs intermittent nursing home care, physical therapy and/or speech therapy, or continues to need occupational therapy. The patient is under my care, and I have initiated the establishment of the plan of care. The patient will be followed by a physician who will periodically review the plan of care. Time Spent With Patient Time: Total time managing care of this patient today ____ minutes.
== END 2024-05-25 13:37 | disposition home health service (06) | DRG 872 ==
LOC: HO.ED 05-21 02:00 → HO.EDOVER 05-21 02:42 → HO.S3 05-21 07:54 → HO.EDOVER 05-21 08:07 → HO.IMC 05-21 17:09
PROVIDERS: Nurse Practitioner Acute Care; Physician Assistant; Admitting Provider Student in an Organized Health Care Education/Training Program; Emergency Provider Emergency Medicine; PCP Internal Medicine; Visit Provider Internal Medicine
DX: A41.9 Sepsis, unspecified organism (principal); N17.9 Acute kidney failure, unspecified; N39.0 Urinary tract infection, site not specified; A04.72 Enterocolitis due to Clostridium difficile, not specified as recurrent; I47.10 Supraventricular tachycardia, unspecified; E11.40 Type 2 diabetes mellitus with diabetic neuropathy, unspecified; E11.65 Type 2 diabetes mellitus with hyperglycemia; R33.9 Retention of urine, unspecified; I48.0 Paroxysmal atrial fibrillation; B96.20 Unspecified Escherichia coli [E. coli] as the cause of diseases classified elsewhere; D64.9 Anemia, unspecified; Z20.822 Contact with and (suspected) exposure to COVID-19; Z79.01 Long term (current) use of anticoagulants; Z79.899 Other long term (current) drug therapy
CPT/HCPCS: 0241U; 36415; 71045; 71250; 76775; 80048; 80053; 81001; 81003; 82947; 83036; 83605; 83735; 83880; 84484; 85025; 87040; 87086; 87088; 87186; 87324; 87493; 87507; 92950; 93005; 97161; 99285; C1758; J0131; J0456; J0696; J1956; J7120

== ENCOUNTER → 2024-05-20 | Outpatient (BNV) | payer MEDICARE, BC, SELFPAY | PROVIDERS: Admitting Provider Student in an Organized Health Care Education/Training Program; Emergency Provider Emergency Medicine; Visit Provider Internal Medicine Cardiovascular Disease | DX: R94.31 Abnormal electrocardiogram [ECG] [EKG] (principal) | CPT/HCPCS: 93010 ==

== ENCOUNTER 2024-05-21 02:36 | Outpatient (BNV) | payer MEDICARE, BC, SELFPAY | END 2024-05-21 04:15 | PROVIDERS: Admitting Provider Student in an Organized Health Care Education/Training Program; Emergency Provider Emergency Medicine; Visit Provider Internal Medicine Cardiovascular Disease | DX: R94.31 Abnormal electrocardiogram [ECG] [EKG] (principal) | CPT/HCPCS: 93010 ==

== ENCOUNTER → 2024-05-21 02:36 | Outpatient (BNV) | payer MEDICARE, BC, SELFPAY | PROVIDERS: Admitting Provider Student in an Organized Health Care Education/Training Program; Emergency Provider Emergency Medicine; Visit Provider Student in an Organized Health Care Education/Training Program | DX: N39.0 Urinary tract infection, site not specified (principal) | CPT/HCPCS: 99223; 99231; 99232; 99239; 99499; G0180 ==

== ENCOUNTER → 2024-05-21 02:36 | Outpatient (BNV) | payer MEDICARE, BC, SELFPAY | PROVIDERS: Admitting Provider Student in an Organized Health Care Education/Training Program; Emergency Provider Emergency Medicine; PCP Internal Medicine; Visit Provider Urology | DX: N39.0 Urinary tract infection, site not specified (principal); E08.40 Diabetes mellitus due to underlying condition with diabetic neuropathy, unspecified; R33.9 Retention of urine, unspecified | CPT/HCPCS: 99222 ==

== ENCOUNTER → 2024-05-21 02:36 | Outpatient (BNV) | payer MEDICARE, BC, SELFPAY | PROVIDERS: Admitting Provider Student in an Organized Health Care Education/Training Program; Emergency Provider Emergency Medicine; Visit Provider Internal Medicine Cardiovascular Disease | DX: R00.0 Tachycardia, unspecified (principal); I48.0 Paroxysmal atrial fibrillation | CPT/HCPCS: 99222 ==

== ENCOUNTER 2024-06-07 11:16 | Inpatient (IN) | payer MEDICARE, BC, SELFPAY ==
[2024-06-07] VITALS (12 sets, daily range): BP systolic 111–154; BP diastolic 45–66; PULSE 64–132; RESP 14–20; TEMP 36.8–38.7; O2SAT 97–98; BMI 23.3
--- NOTE | ~2024-06-07 | CT_ITS ---
EXAMINATION: CT OF THE HEAD WITHOUT CONTRAST CT OF THE CERVICAL SPINE WITHOUT CONTRAST CLINICAL INFORMATION: Fall. Positive blood thinners. COMPARISON: CT scan of the head dated 07/11/2022. TECHNIQUE: Contiguous axial imaging was performed from the skullbase to vertex without intravenous administration of contrast. Coronal reformations of the head were obtained. Contiguous axial imaging was then performed from the skull base down to the thoracic inlet. Coronal and sagittal reformations of the cervical spine were obtained. This CT examination was performed using dose optimization techniques as appropriate, variously including the following: *Automated exposure control *Adjustment of mA and/or kV according to patient size (this includes techniques or standardized protocols for targeted exams where dose is matched to indication/reason for exam; i.e. extremities or head) *Use of iterative reconstruction technique DLP: 1100 mGy-cm. FINDINGS: CT scan of the head: Evaluation is limited due to motion artifact. There is no definite evidence of acute intracranial hemorrhage or territorial infarction. No abnormal mass-effect or midline shift is seen. Baird to white matter differentiation is well preserved. No extra-axial fluid collections are identified. The ventricles are normal in size. There is no abnormal attenuation within the brain parenchyma. Calcification of the carotid siphons is noted. The osseous structures and soft tissues are normal. Partial opacification/mucous retention cysts in the maxillary sinuses bilaterally are again noted. The mastoid air cells and visualized portions of the paranasal sinuses are otherwise well-aerated. CT scan of the cervical spine: Normal alignment is seen with no evidence of acute fracture or dislocation. Craniocervical junction and atlantoaxial articulations are intact. Prevertebral soft tissues are normal in thickness. There is severe degenerative disc disease from C4-C5 down to C6-C7 with disc space narrowing and bulky marginal spur formation, including large posterior osteophytes, which project into the thecal sac and causes significant spinal stenosis at all of these levels. Moderate facet arthropathy is seen in the mid cervical spine bilaterally. There is diffuse osteopenia. The included soft tissues of the neck and lung apices are unremarkable. CT/CT cervical spine wo IV con IMPRESSION: CT SCAN OF THE HEAD: 1. Limited assessment due to motion artifact. No definite acute intracranial pathology. 2. Chronic bilateral maxillary sinus disease. CT SCAN OF THE CERVICAL SPINE: 1. No evidence of cervical spine fracture or malalignment. 2. Severe degenerative disc disease in the mid and lower cervical spine with large posterior osteophytes projecting into the thecal sac and causing significant spinal stenosis at all levels from C4-C5 down to C6-C7.
--- NOTE | 2024-06-07 11:46 | ECG_ITS ---
Test Reason : fall Blood Pressure : / mmHG Vent. Rate : 075 BPM Atrial Rate : 075 BPM P-R Int : 158 ms QRS Dur : 082 ms QT Int : 382 ms P-R-T Axes : 021 030 039 degrees QTc Int : 426 ms Normal sinus rhythm Normal ECG When compared with ECG of 21-MAY-2024 04:15, Previous ECG has undetermined rhythm, needs review ST no longer depressed in Inferior leads ST elevation has replaced ST depression in Lateral leads Nonspecific T wave abnormality no longer evident in Lateral leads Referred By: Generic ED Physician Electronically Signed By:MAURI RG MD
--- NOTE | 2024-06-07 12:04 | PC.NURSE ---
Upon initial triage assessment, patient's niyah area found to be covered with stool, entire niyah area reddened/inflamed, patient's R leg has significant wound where urine leg bag attachment has embedded itself into his skin. Patient had full bed bath by this RN and EDT Svetlana, leg bag switched to larger carmichael bag, milky urine seen draining from catheter. Barrier cream applied to niyah area, coccyx area reddened, covered with allevyn.
--- NOTE | 2024-06-07 12:06 | ED.FALL ---
HPI - Fall General Chief Complaint: Fall Stated Complaint: fall this morning, +thinners, increasingly weak Time Seen by Provider: 06/07/24 12:06 Source: patient and RN notes reviewed Mode of arrival: ambulatory Limitations: no limitations History of Present Illness ED Provider: Tosin Worley PA-C HPI Narrative: This is a 74-year-old male with a past medical history of MSSA bacteremia, PAF on eliquis, prostatitis, DM, HTN, chronic L plantar foot ulcer that was managed and healed well by wound clinic, who presents emergency department with complaints of fall out of bed which occurred this morning. Patient states that while he was trying to get up from his bed after sleeping the night and felt weakness in his lower legs and fell onto his left side on the ground. He states that he has had weakness in his lower legs for several weeks. He states that since his last hospital admission he has not felt strength in his lower extremities. He denies hitting his head. No loss of consciousness. He states that he was not on the ground for a prolonged period of time. Patient was recently admitted for sepsis due to UTI. No other complaints or concerns at this time. MD complaint: fall Fall from: out of bed Fall witnessed: no Place fall occurred: home Loss of consciousness: none Prolonged down time: no Symptoms prior to fall: none Severity: moderate Quality: aching Associated symptoms (after fall): denies Related Data Home Medications ?Medication ?Instructions ?Recorded ?Confirmed lancets 28 gauge #100 ea 03/14/21 12/08/23 cholecalciferol (vitamin D3) 25 25 mcg PO DAILY 03/04/24 06/07/24 mcg (1,000 unit) tablet cyanocobalamin (vitamin B-12) 500 500 mcg PO DAILY 03/04/24 06/07/24 mcg tablet tamsulosin 0.4 mg capsule 0.4 mg PO BEDTIME 03/04/24 06/07/24 bethanechol chloride 25 mg tablet 25 mg PO BID 05/21/24 06/07/24 aspirin 81 mg capsule 81 mg PO DAILY 06/07/24 06/07/24 Previous Rx's ?Medication ?Instructions ?Recorded finasteride 5 mg tablet 5 mg PO BEDTIME 90 days #90 tabs 12/08/23 metoprolol tartrate 50 mg tablet 50 mg PO BID 90 days #180 tabs 02/08/24 apixaban 5 mg tablet (Eliquis) 5 mg PO BID #180 tabs 02/16/24 Allergies Allergy/AdvReac Type Severity Reaction Status Date / Time penicillin V Allergy Intermediate rash Verified 06/07/24 11:38 amoxicillin Allergy Unknown Verified 06/07/24 11:38 Erythromycin Allergy Intermediate diarrhea Uncoded 05/20/24 23:41 Review of Systems Review of Systems: Yes all other systems are reviewed and are negative Constitutional: Constitutional: Reports as per [facility] Past Medical History Attestation statement: The following information was validated with the patient. Medical History Bladder outlet obstruction Psoriasis Sepsis Elevated cholesterol Anemia BPH (benign prostatic hyperplasia) Diabetes Vitamin D deficiency Neuropathy HTN (hypertension) Chronic a-fib Amputation of great toe Osteomyelitis PVD (peripheral vascular disease) Amputation of toe of left foot Pre-diabetes History of neuropathy Arrhythmia Osteomyelitis of second toe of left foot Ulcer of left second toe Amputated toe of right foot History of heart valve abnormality Surgical History History of amputation of toe Status post amputation of toe Hx of amputation Status post ORIF of fracture of ankle Family History Family History Mother CAD (coronary artery disease) Social History Social History Household Members: Family Housing: House Are you a primary student career development specialist to a significant other at home: No Do you presently have visiting nurse or other home services: No (had visiting nurse up until recently) Alcohol intake: never Comment: scheduled med Patient Tobacco Use Status: Never used Tobacco Smoked in Last 30 Days: No Second Hand Smoke Exposure: No Use of substances other than those prescribed or required for medical reasons: No Advance Directives: Yes Advance Directives Information Provided: Yes Advance Directives on File: No Advance Directives Date on File: 08/07/20 Do you have a plan to hurt others: No Plan Nutrition Risks: No Nutritional Risk service: No Current occupational status: retired Physical Exam Vital Signs: Vital Signs: Last Vital Signs Temp 101.3 F H 06/07/24 22:54 Pulse 114 H 06/07/24 21:53 Resp 16 06/07/24 21:53 BP 154/62 H 06/07/24 20:00 Pulse Ox 97 06/07/24 20:00 O2 Del Method Room Air 06/07/24 20:00 BMI result Body Mass Index 23.3 Const: General: cooperative, comfortable and no acute distress Orientation/consciousness: patient oriented x3 Limitations: no limitations HEENT: Head: Yes normal to inspection, Yes normocephalic and Yes atraumatic Ears: hearing grossly normal bilaterally General nose exam: Normal external nose present Face and sinus: Yes normal facial exam Mouth: Normal oral and palatal mucosa present, oropharynx normal and moist mucous membranes Throat: Yes posterior oropharynx normal Eyes: General: appearance normal, both eyes and all related structures Eyelids: Yes eyelids normal Conjunctivae: conjunctivae normal Sclerae: sclerae normal Pupils: Equal, round and reactive pupils present EOM: EOMs intact bilaterally Neck: Neck: Yes normal visual inspection, Yes full ROM and Yes no lymphadenopathy Lymphatic: no lymphadenopathy noted Chest: Chest palpation & inspection: normal inspection of the chest Resp: Effort & Inspection: normal respiratory effort and able to speak in complete sentences Auscultation: clear to auscultation bilaterally, no crackles, no rales, no rhonchi and no wheezes Cardio: Rate: regular rate Rhythm: regular rhythm Heart sounds: S1 normal heart sound present and S2 normal heart sound present GI: Inspection: Yes normal to inspection Skin: Other: Right leg with mild skin breakdown with surrounding erythema, induration and warmth. No drainage from the area. This site is particularly over the leg bag that was placed due to catheter placement. General skin exam: no rashes or lesions noted Trauma: no lacerations or abrasions Wounds: no wounds Neuro: General: patient oriented x3 and moves all extremities Cranial nerves: Yes Equal, round and reactive pupils present Extrem: General: Yes normal to inspection Right upper extremity: normal to inspection Left upper extremity: normal to inspection Right lower extremity: normal to inspection Left lower extremity: normal to inspection Course Reevaluation(s) Reevaluation #1: Workup today reassuring. Given deconditioning, patient will be evaluated by PT and case management. He does have starting of cellulitis to his right lower leg due to leg bag. Was anticipating on starting on Keflex however patient states that at his last admission he developed a rash to his bilateral arms, this was Rocephin. Given rash with penicillin and Rocephin, will avoid, will start on doxy. Physician observation initiated pending PT Case Management dispo Time: 16:33 Reevaluation #2: I received report from nursing staff the patient has been experiencing copious amounts of liquid diarrhea in addition to his profound weakness. On review of his labs he is noted to have C diff positive gene in addition to toxin a. He had recent positive gene in May of 2024 but toxin testing was negative at that time. In the setting of his recent antibiotic use or hospitalization, treating accordingly with vancomycin. Admitted to Medicine Service, spoke with hospitalist, Dr. Bandar Singh. Time: 19:00 Medications Administered Generic Name Dose Route Start Last Admin Trade Name Freq PRN Reason Stop Dose Admin Acetaminophen 975 mg 06/07/24 19:55 06/07/24 21:25 Acetaminophen 325 Mg Tablet PO 975 mg Q6H PRN Administration Pain, Mild (Pain Scale 1-3), fever or headache Lactated Ringer's 1,000 mls @ 100 mls/hr 06/07/24 20:00 06/07/24 20:56 Lr IVCONT 100 mls/hr .Q10H CODY Administration Vancomycin HCl 2,000 mg in 500 mls @ 250 mls/hr 06/07/24 21:45 06/07/24 22:44 Vancomycin/Ns IV 06/07/24 23:44 250 mls/hr ONCE ONE Administration Metoprolol Tartrate 50 mg 06/07/24 21:05 06/07/24 21:26 Metoprolol Tartrate 50 Mg Tablet PO 50 mg BID CODY Administration Protocol Discontinued Medications Generic Name Dose Route Start Last Admin Trade Name Freq PRN Reason Stop Dose Admin Doxycycline Monohydrate 100 mg 06/07/24 21:00 06/07/24 20:53 Doxycycline Monohydrate 100 Mg Capsule PO 100 mg BID CODY Administration Sodium Chloride 1,000 mls @ 999 mls/hr 06/07/24 15:13 06/07/24 17:43 Ns IV 06/07/24 16:13 Infused .Q1H1M ONE Infusion Lactated Ringer's 500 mls @ 999 mls/hr 06/07/24 19:58 06/07/24 21:54 Lr IV 06/07/24 20:28 Infused .Q31M STA Infusion Vancomycin HCl 125 mg 06/07/24 19:00 06/07/24 19:59 Vancomycin Hcl 125 Mg Capsule PO 06/07/24 19:01 125 mg ONCE ONE Administration Medical Decision Making Medical Decision Making [facility] Narrative: 74-year-old male with a past medical history of MSSA bacteremia, PAF on eliquis, prostatitis, DM, HTN, chronic L plantar foot ulcer that was managed and healed well by wound clinic, who presents emergency department with complaints of fall out of bed which occurred this morning. He had a fall out of bed due to lower extremity weakness. He has had this issue for several weeks. On arrival, he is alert and oriented x4. CT head and neck was ordered. Labs, EKG, UA also ordered Differential Diagnosis Differential Diagnoses: The differential diagnosis associated with the presentation includes UTI, subdural hemorrhage, CVA-unlikely, deconditioning Admission/Observation Consideration of admission/observation: Escalation of care including admission/observation considered Lab Data [facility] Lab Attestation statement: I reviewed the patient's lab results. No leukocytosis, H&H revealing a normocytic anemia, similar to his baseline, troponin x2 negative. Creatinine 1.32, slightly elevated from baseline at around 1.2 given 1 L of IV fluids. 06/07/24 12:56 06/07/24 12:56 Labs: Lab Results 06/07/24 06/07/24 06/07/24 Range/Units 12:13 12:43 12:56 WBC 10.4 (4.8-10.8) X10*3/uL RBC 3.53 L (4.60-5.80) X10*6/uL Hgb 10.4 L (14.0-18.0) g/dl Hct 31.3 L (42.0-52.0) % MCV 88.7 (80.0-98.0) fL MCH 29.5 (27.0-33.0) pg MCHC 33.2 (31.0-36.0) g/dl RDW 13.8 (11.0-16.0) % Plt Count 362 D (160-400) X10*3/uL MPV 8.7 L (9.4-12.4) fL Immature Gran % (Auto) 0.4 (0.0-0.4) % Neut % (Auto) 71.4 (45-73) % Lymph % (Auto) 17.0 L (20-40) % [place] % (Auto) 7.7 (2-11) % Eos % (Auto) 2.5 (0-4) % Baso % (Auto) 1.0 (0-2) % Lymph # (Auto) 1.8 (1.2-4.9) X10*3/uL [place] # (Auto) 0.8 (0.1-1.2) X10*3/uL Eos # (Auto) 0.3 (0.0-0.4) X10*3/uL Baso # (Auto) 0.1 (0.0-0.2) X10*3/uL Abs Immat Gran (auto) 0.04 H (0.00-0.03) X10*3/uL Absolute Neuts (auto) 7.4 (2.0-8.3) x10*3/uL Absolute Nucleated RBC 0.000 (0.0-0.012) X10*3/uL Nucleated RBC % (auto) 0.0 (0.0-0.2) /100WBC PT 14.6 H (11.1-13.3) SEC INR 1.2 H (0.9-1.1) Sodium 135 (135-145) mmol/L Potassium 4.8 D (3.3-5.1) mmol/L Chloride 100 (96-108) mmol/L Carbon Dioxide 26 (22-29) mmol/L Anion Gap 14 (12-20) BUN 30 H (9-16) mg/dL Creatinine 1.32 (0.5-1.4) mg/dL Estim Creat Clear Calc 59.4 Estimated GFR 53 POC Glucose 183 H (60-115) mg/dL Random Glucose 172 H (60-115) mg/dL Calcium 10.1 D (8.4-10.2) mg/dL Magnesium 1.8 (1.6-2.6) mg/dL Total Bilirubin 0.4 (0.0-1.0) mg/dL AST 12 (5-37) U/L ALT 9 (0-40) U/L Alkaline Phosphatase 84 (39-117) U/L Troponin I High Sens < 2.7 D (<3.5-35.0) ng/L Total Protein 7.3 (6.5-8.0) g/dL Albumin 3.8 (3.5-5.0) g/dL Urine Color Yellow Urine Appearance Clear Urine pH 6.0 (5.0-9.0) Ur Specific [place] <= 1.005 (1.005-1.025) Urine Protein Negative (Neg-Trace) mg/dL Urine Glucose (UA) Negative (Negative) mg/dL Urine Ketones Negative (Negative) mg/dL Urine Blood Negative (Negative) Urine Nitrite Negative (Negative) Ur Leukocyte Esterase Negative (Negative) Stl C. cayetanensis PCR (Not Detect.) Stool Rotavirus A PCR (Not Detect.) Stl Adenov F 40/41 PCR (Not Detect.) Stool Astrovirus (PCR) (Not Detect.) Stool Campylobacter PCR (Not Detect.) Stool Cryptosporidium PCR (Not Detect.) Stl Sh Tox Pr E STEC PCR (Not Detect.) Stool E coli O157 PCR (Not Detect.) Stl Enterotoxigenic E PCR (Not Detect.) Stool EPEC (PCR) (Not Detect.) Stool EAEC (PCR) (Not Detect.) Stl E. histolytica PCR (Not Detect.) Stool Giardia Lamblia PCR (Not Detect.) Stl P. shigelloides PCR (Not Detect.) Stool Salmonella PCR (Not Detect.) Stool Sapovirus (PCR) (Not Detect.) Stl Shigella/EIEC PCR (Not Detect.) St Y.enterocolitica PCR (Not Detect.) Stool Vibrio (PCR) (Not Detect.) Stl Vibrio cholerae PCR (Not Detect.) Stl Norovirus GI/GII PCR (Not Detect.) C. difficile Tox B Gene (Negative) C. difficile Toxin A&B (Negative) C. difficile Interpret 06/07/24 06/07/24 Range/Units 15:48 15:56 WBC (4.8-10.8) X10*3/uL RBC (4.60-5.80) X10*6/uL Hgb (14.0-18.0) g/dl Hct (42.0-52.0) % MCV (80.0-98.0) fL MCH (27.0-33.0) pg MCHC (31.0-36.0) g/dl RDW (11.0-16.0) % Plt Count (160-400) X10*3/uL MPV (9.4-12.4) fL Immature Gran % (Auto) (0.0-0.4) % Neut % (Auto) (45-73) % Lymph % (Auto) (20-40) % [place] % (Auto) (2-11) % Eos % (Auto) (0-4) % Baso % (Auto) (0-2) % Lymph # (Auto) (1.2-4.9) X10*3/uL [place] # (Auto) (0.1-1.2) X10*3/uL Eos # (Auto) (0.0-0.4) X10*3/uL Baso # (Auto) (0.0-0.2) X10*3/uL Abs Immat Gran (auto) (0.00-0.03) X10*3/uL Absolute Neuts (auto) (2.0-8.3) x10*3/uL Absolute Nucleated RBC (0.0-0.012) X10*3/uL Nucleated RBC % (auto) (0.0-0.2) /100WBC PT (11.1-13.3) SEC INR (0.9-1.1) Sodium (135-145) mmol/L Potassium (3.3-5.1) mmol/L Chloride (96-108) mmol/L Carbon Dioxide (22-29) mmol/L Anion Gap (12-20) BUN (9-16) mg/dL Creatinine (0.5-1.4) mg/dL Estim Creat Clear Calc Estimated GFR POC Glucose (60-115) mg/dL Random Glucose (60-115) mg/dL Calcium (8.4-10.2) mg/dL Magnesium (1.6-2.6) mg/dL Total Bilirubin (0.0-1.0) mg/dL AST (5-37) U/L ALT (0-40) U/L Alkaline Phosphatase (39-117) U/L Troponin I High Sens < 2.7 (<3.5-35.0) ng/L Total Protein (6.5-8.0) g/dL Albumin (3.5-5.0) g/dL Urine Color Urine Appearance Urine pH (5.0-9.0) Ur Specific [place] (1.005-1.025) Urine Protein (Neg-Trace) mg/dL Urine Glucose (UA) (Negative) mg/dL Urine Ketones (Negative) mg/dL Urine Blood (Negative) Urine Nitrite (Negative) Ur Leukocyte Esterase (Negative) Stl C. cayetanensis PCR Not Detected (Not Detect.) Stool Rotavirus A PCR Not Detected (Not Detect.) Stl Adenov F 40/41 PCR Not Detected (Not Detect.) Stool Astrovirus (PCR) Not Detected (Not Detect.) Stool Campylobacter PCR Not Detected (Not Detect.) Stool Cryptosporidium PCR Not Detected (Not Detect.) Stl Sh Tox Pr E STEC PCR Not Detected (Not Detect.) Stool E coli O157 PCR Not applicable (Not Detect.) Stl Enterotoxigenic E PCR Not Detected (Not Detect.) Stool EPEC (PCR) Not Detected (Not Detect.) Stool EAEC (PCR) Not Detected (Not Detect.) Stl E. histolytica PCR Not Detected (Not Detect.) Stool Giardia Lamblia PCR Not Detected (Not Detect.) Stl P. shigelloides PCR Not Detected (Not Detect.) Stool Salmonella PCR Not Detected (Not Detect.) Stool Sapovirus (PCR) Not Detected (Not Detect.) Stl Shigella/EIEC PCR Not Detected (Not Detect.) St Y.enterocolitica PCR Not Detected (Not Detect.) Stool Vibrio (PCR) Not Detected (Not Detect.) Stl Vibrio cholerae PCR Not Detected (Not Detect.) Stl Norovirus GI/GII PCR Not Detected (Not Detect.) C. difficile Tox B Gene POSITIVE A* (Negative) C. difficile Toxin A&B Positive A* (Negative) C. difficile Interpret SEE NOTE Independent Interpretation I performed an independent interpretation of an: EKG Interpretation: EKG normal sinus rhythm with no ST elevation or depression. QT QTC 382/426 Radiology Impression Discussion of test interpretation with radiology: I have reviewed the radiologist's reading. Radiologist Impression: CT/CT head/brain wo IV con IMPRESSION: CT SCAN OF THE HEAD: 1. Limited assessment due to motion artifact. No definite acute intracranial pathology. 2. Chronic bilateral maxillary sinus disease. CT SCAN OF THE CERVICAL SPINE: 1. No evidence of cervical spine fracture or malalignment. 2. Severe degenerative disc disease in the mid and lower cervical spine with large posterior osteophytes projecting into the thecal sac and causing significant spinal stenosis at all levels from C4-C5 down to C6-C7. Dictated By: Shanon Roberto MD Discharge Plan Discharge Clinical Impression: Weakness, Cellulitis of right leg, C. difficile diarrhea Patient Disposition: Admitted As Inpatient
[2024-06-07 12:18] LABS: Glucose, Whole Blood 183 mg/dL (60-115)
--- NOTE | 2024-06-07 12:29 | MHC.EDTECH ---
This tech changed pt into hospital gown and changed sheets- pt sheets soiled, pt was cleaned, MARTIN Taylor put rash on pt inner legs, call aguilar within reach.
[2024-06-07 12:51] LABS: Appearance Urine Clear; Color Urine Yellow; Glucose Urine UA Negative (Negative); Leukocyte Esterase Urine Negative (Negative); Nitrite Urine Negative (Negative); Specific Gravity - Urine <= 1.005 (1.005-1.025); Urine Blood Negative (Negative); Urine Ketones Negative (Negative); Urine Protein Negative (Neg-Trace)
[2024-06-07 13:02] LABS: MANUAL DIFF FLAG NO
[2024-06-07 13:04] LABS: Basophils Absolute Auto 0.1 X10*3/uL (0.0-0.2); Eosinophils Absolute Auto 0.3 X10*3/uL (0.0-0.4); Eosinophils Percent Auto 2.5 % (0-4); Hematocrit 31.3 % (42.0-52.0); Hemoglobin 10.4 g/dl (14.0-18.0); Imm Gran Abs Auto 0.04 X10*3/uL (0.00-0.03); Imm Gran Pct Auto 0.4 % (0.0-0.4); Lymphocytes Absolute Auto 1.8 X10*3/uL (1.2-4.9); Mean Corpuscular HGB Conc 33.2 g/dl (31.0-36.0); Mean Corpuscular Hemoglobin 29.5 pg (27.0-33.0); Mean Corpuscular Volume 88.7 fL (80.0-98.0); Mean Platelet Volume 8.7 fL (9.4-12.4); Monocytes Absolute Auto 0.8 X10*3/uL (0.1-1.2); Monocytes Percent Auto 7.7 % (2-11); Neutrophils Absolute Auto 7.4 x10*3/uL (2.0-8.3); Neutrophils Percent Auto 71.4 % (45-73); Platelet Count 362 X10*3/uL (160-400); Red Blood Count 3.53 X10*6/uL (4.60-5.80); Red Cell Distribution Width 13.8 % (11.0-16.0); White Blood Count 10.4 X10*3/uL (4.8-10.8)
[2024-06-07 13:10] LABS: INTERNATIONAL NORM RATIO 1.2 (0.9-1.1); Prothrombin Time 14.6 SEC (11.1-13.3)
[2024-06-07 13:18] LABS: Alanine Aminotransferase 9 U/L (0-40); Albumin Level 3.8 g/dL (3.5-5.0); Alkaline Phosphatase 84 U/L (39-117); Anion Gap 14 (12-20); Aspartate Amino Transferase 12 U/L (5-37); Bilirubin Total 0.4 mg/dL (0.0-1.0); Blood Urea Nitrogen 30 mg/dL (9-16); Calcium 10.1 mg/dL (8.4-10.2); Carbon Dioxide 26 mmol/L (22-29); Chloride 100 mmol/L (96-108); Creatinine Clr Calc Pharmacy 59.4; Estimated Glomerular Filt Rate 53; Glucose Random 172 mg/dL (60-115); Magnesium 1.8 mg/dL (1.6-2.6); Potassium 4.8 mmol/L (3.3-5.1); Sodium 135 mmol/L (135-145); Total Protein 7.3 g/dL (6.5-8.0)
[2024-06-07 13:27] LABS: Troponin-I High Sensitivity < 2.7 ng/L (<3.5-35.0)
--- NOTE | 2024-06-07 14:35 | PC.NURSE ---
Spoke to patient's brother Kalyan about patient's current status, wondering if patient is going to get admitted to hospital. Informed Kalyan we are still awaiting test results, unsure if patient will be admitted versus reccommending rehab, patient seems to be very weak in bed.
--- NOTE | 2024-06-07 14:36 | MHC.EDTECH ---
This tech changed pt linen- pt soiled himself, call aguilar within reach.
[2024-06-07] MEDS: 0.9 % Sodium Chloride 1,000 ML 999 ML IV (15:25)
[2024-06-07 16:21] LABS: Troponin-I High Sensitivity < 2.7 ng/L (<3.5-35.0)
[2024-06-07 17:18] LABS: CDiff Gene PCR POSITIVE (Negative)
[2024-06-07 17:24] LABS: CDIFF Internal ctrl Dots and bkg OK (V); CDiff Toxin Positive (Negative)
[2024-06-07 17:27] LABS: Adenovirus F 40/41 Not Detected (Not Detect.); Astrovirus Not Detected (Not Detect.); Campylobacter Not Detected (Not Detect.); Cryptosporidium Not Detected (Not Detect.); Cyclospora cayetanensis Not Detected (Not Detect.); E. coli EAEC Not Detected (Not Detect.); E. coli EPEC Not Detected (Not Detect.); E. coli ETEC Not Detected (Not Detect.); E. coli STEC Not Detected (Not Detect.); Entamoeba histolytica Not Detected (Not Detect.); Giardia lamblia Not Detected (Not Detect.); Norovirus GI/GII Not Detected (Not Detect.); Plesiomonas shigelloides Not Detected (Not Detect.); Rotavirus A Not Detected (Not Detect.); Salmonella Not Detected (Not Detect.); Sapovirus Not Detected (Not Detect.); Shigella sp./EIEC Not Detected (Not Detect.); Vibrio Not Detected (Not Detect.); Vibrio Cholerae Not Detected (Not Detect.); Yersinia enterocolitica Not Detected (Not Detect.)
--- NOTE | 2024-06-07 18:49 | MHC.EDTECH ---
This tech checked pt vital signs and changed linens- pt soiled himself, call aguilar within reach.
[2024-06-07] MEDS: vancomycin HCL 125 MG CAPSULE PO (19:59)
--- NOTE | 2024-06-07 20:03 | ECG_ITS ---
Test Reason : A FIB Blood Pressure : / mmHG Vent. Rate : 130 BPM Atrial Rate : 130 BPM P-R Int : 144 ms QRS Dur : 082 ms QT Int : 304 ms P-R-T Axes : 043 046 069 degrees QTc Int : 447 ms Sinus tachycardia Possible Left atrial enlargement Nonspecific ST abnormality Abnormal ECG When compared with ECG of 07-JUN-2024 12:01, Vent. rate has increased BY [address] now depressed in Lateral leads Nonspecific T wave abnormality now evident in Inferior leads T wave amplitude has decreased in Lateral leads Referred By: Antonette Singh Electronically Signed By:MAURI RG MD
[2024-06-07] MEDS: Lactated Ringers 500 ML 999 ML IV (20:10)
--- NOTE | 2024-06-07 20:17 | PC.NURSE ---
Patient moved into private room d/t isolation status, underwear trimmer Natividad made aware. Upon moving patient, HR burst to 130's, looked like afib on monitor, ekg ordered, admitter Dr. Portillo made aware. Fluids ordered.
--- NOTE | 2024-06-07 20:45 | PHA.MEDREC ---
Addendum entered by Pietro Acosta RPh 06/07/24 20:56: Reviewed by [facility] Original Note: Pharmacy Consult ? Medication Reconciliation Pharmacy has completed the medication reconciliation. Spoke to patients brother Javed to confirm med list. Brother could only verify a few medication from patients bottles at home. Used claims to confirm other meds. Levofloxacin 750 mg daily last fill 7--24 X7 days, Magnesium oxide 400 mg BIDPC, last fill 7--24 x10 days, Potassium chloride 8 meq daily, last fill 7--24 X8 days and vancomycin 125mg qid, last fill 7-24-24 X8 days. treatment has been completed.
[2024-06-07] MEDS: Doxycycline Monohydrate 100 MG CAPSULE PO (20:53)
[2024-06-07] MEDS: Lactated Ringers 1,000 ML 100 ML IVCONT (20:56)
--- NOTE | 2024-06-07 20:57 | PM.IMHP ---
History of Present Illness Date of Service: 06/07/24 Attending physician on admission: Antonette Singh Chief Complaint: Generalized weakness Shashank Fregoso is a 74 years old man with past medical history significant for chronic indwelling urinary catheter, MSSA bacteremia, essential hypertension, atrial fibrillation on Eliquis, PVD s/p angioplasty of left posterior tibial artery, chronic left plantar foot ulcer was brought to the emergency department after he sustained a fall because he was feeling dizzy. Denies head trauma or loss of consciousness. Patient also complained of multiple events of watery diarrhea over the last several days. He denied abdominal pain, nausea, vomiting, fevers or chills. He also denies headache, shortness for breath, chest pain or palpitations. In the ED to [facility], he was found to have left right lower extremity cellulitis. Denied alcohol abuse, illicit drug use or tobacco smoking. He has history of left 2nd toe osteomyelitis status post amputation. Patient lives with his brother and is unable to take care of himself. Patient was treated with Levaquin last month for UTI/sepsis. In ED, he was found to have tachycardia consistent with rapid atrial fibrillation. Blood pressure is 154/63. Oxygen saturation is normal on room air. Blood workup showed no leukocytosis. Hemoglobin is 10.4 which is around baseline. Platelets are normal. INR is 1.2. There are no electrolyte imbalances. Creatinine is 1.32. LFTs are normal. Troponin negative x2. GI panel was negative except for C diff toxin. ED tx: NS 1 L bolus, vancomycin 125 mg PO. Review of Systems Review of Systems: All 12 systems were reviewed and normal except as noted in HPI. [facility] Medical History Bladder outlet obstruction Psoriasis Sepsis Elevated cholesterol Anemia BPH (benign prostatic hyperplasia) Diabetes Vitamin D deficiency Neuropathy HTN (hypertension) Chronic a-fib Amputation of great toe Osteomyelitis PVD (peripheral vascular disease) Amputation of toe of left foot Pre-diabetes History of neuropathy Arrhythmia Osteomyelitis of second toe of left foot Ulcer of left second toe Amputated toe of right foot History of heart valve abnormality Family History Mother CAD (coronary artery disease) Surgical History History of amputation of toe Status post amputation of toe Hx of amputation Status post ORIF of fracture of ankle Social History Household Members: Family Housing: House Are you a primary clinical care leader to a significant other at home: No Do you presently have visiting nurse or other home services: No (had visiting nurse up until recently) Alcohol intake: never Comment: scheduled med Patient Tobacco Use Status: Never used Tobacco Smoked in Last 30 Days: No Second Hand Smoke Exposure: No Use of substances other than those prescribed or required for medical reasons: No Advance Directives: Yes Advance Directives Information Provided: Yes Advance Directives on File: No Advance Directives Date on File: 08/07/20 Do you have a plan to hurt others: No Plan service: No Current occupational status: retired Meds Allergies Allergy/AdvReac Type Severity Reaction Status Date / Time penicillin V Allergy Intermediate rash Verified 06/07/24 11:38 amoxicillin Allergy Unknown Verified 06/07/24 11:38 Erythromycin Allergy Intermediate diarrhea Uncoded 05/20/24 23:41 Active Medications: Current Medications Acetaminophen (Acetaminophen 325 Mg Tablet) 975 mg PO Q6H PRN PRN Reason: Pain, Mild (Pain Scale 1-3), fever or headache Doxycycline Monohydrate (Doxycycline Monohydrate 100 Mg Capsule) 100 mg PO BID [facility] Last Admin: 06/07/24 20:53 Dose: 100 mg Lactated Ringer's (Lr) 1,000 mls @ 100 mls/hr IVCONT .Q10H [facility] Last Admin: 06/07/24 20:56 Dose: 100 mls/hr Melatonin (Melatonin 3 Mg Tablet) 6 mg PO BEDTIME PRN PRN Reason: Insomnia Sodium Chloride (0.9 % Sodium Chloride Flush 3 Ml Syringe) 3 ml IVFLUSH QSHIFT [facility] Vancomycin HCl (Vancomycin Hcl 125 Mg Capsule) 125 mg PO Q6H [facility] Home Medications ?Medication ?Instructions ?Recorded ?Confirmed ?Last Taken ?Type lancets 28 gauge #100 ea 03/14/21 12/08/23 Unknown History cholecalciferol (vitamin D3) 25 25 mcg PO DAILY 03/04/24 06/07/24 05/20/24 History mcg (1,000 unit) tablet cyanocobalamin (vitamin B-12) 500 500 mcg PO DAILY 03/04/24 06/07/2405/20/24 History mcg tablet tamsulosin 0.4 mg capsule 0.4 mg PO BEDTIME 03/04/24 06/07/24 Unknown History bethanechol chloride 25 mg tablet 25 mg PO BID 05/21/24 06/07/24 05/20/24 History aspirin 81 mg capsule 81 mg PO DAILY 06/07/24 06/07/24 Unknown History Physical Exam Vital Signs and Narrative: Vital Signs: Last Vital Signs Temp 98.3 F 06/07/24 18:00 Pulse 132 H 06/07/24 20:00 Resp 20 06/07/24 20:00 BP 154/62 H 06/07/24 20:00 Pulse Ox 97 06/07/24 20:00 O2 Del Method Room Air 06/07/24 20:00 BMI result Body Mass Index 23.3 Results Labs 06/07/24 12:56 06/07/24 12:56 Labs: Laboratory Results - last 24 hr 06/07/24 06/07/24 06/07/24 12:13 12:43 12:56 MCV 88.7 MCH 29.5 MCHC 33.2 RDW 13.8 Plt Count 362 D MPV 8.7 L Immature Gran % (Auto) 0.4 Neut % (Auto) 71.4 Lymph % (Auto) 17.0 L Collin % (Auto) 7.7 Eos % (Auto) 2.5 Baso % (Auto) 1.0 Lymph # (Auto) 1.8 Collin # (Auto) 0.8 Eos # (Auto) 0.3 Baso # (Auto) 0.1 Abs Immat Gran (auto) 0.04 H Absolute Neuts (auto) 7.4 Absolute Nucleated RBC 0.000 Nucleated RBC % (auto) 0.0 PT 14.6 H INR 1.2 H Anion Gap 14 Estim Creat Clear Calc 59.4 Estimated GFR 53 POC Glucose 183 H Random Glucose 172 H Calcium 10.1 D Magnesium 1.8 Total Bilirubin 0.4 AST 12 ALT 9 Alkaline Phosphatase 84 Troponin I High Sens < 2.7 D Total Protein 7.3 Albumin 3.8 Urine Color Yellow Urine Appearance Clear Urine pH 6.0 Ur Specific Sherwood <= 1.005 Urine Protein Negative Urine Glucose (UA) Negative Urine Ketones Negative Urine Blood Negative Urine Nitrite Negative Ur Leukocyte Esterase Negative Stl C. cayetanensis PCR Stool Rotavirus A PCR Stl Adenov F PCR Stool Astrovirus (PCR) Stool Campylobacter PCR Stool Cryptosporidium PCR Stl Sh Tox Pr E STEC PCR Stool E coli O157 PCR Stl Enterotoxigenic E PCR Stool EPEC (PCR) Stool EAEC (PCR) Stl E. histolytica PCR Stool Giardia Lamblia PCR Stl P. shigelloides PCR Stool Salmonella PCR Stool Sapovirus (PCR) Stl Shigella/EIEC PCR St Y.enterocolitica PCR Stool Vibrio (PCR) Stl Vibrio cholerae PCR Stl Norovirus GI/GII PCR C. difficile Tox B Gene C. difficile Toxin A&B C. difficile Interpret 06/07/24 06/07/24 15:48 15:56 MCV MCH MCHC RDW Plt Count MPV Immature Gran % (Auto) Neut % (Auto) Lymph % (Auto) Collin % (Auto) Eos % (Auto) Baso % (Auto) Lymph # (Auto) Collin # (Auto) Eos # (Auto) Baso # (Auto) Abs Immat Gran (auto) Absolute Neuts (auto) Absolute Nucleated RBC Nucleated RBC % (auto) PT INR Anion Gap Estim Creat Clear Calc Estimated GFR POC Glucose Random Glucose Calcium Magnesium Total Bilirubin AST ALT Alkaline Phosphatase Troponin I High Sens < 2.7 Total Protein Albumin Urine Color Urine Appearance Urine pH Ur Specific Sherwood Urine Protein Urine Glucose (UA) Urine Ketones Urine Blood Urine Nitrite Ur Leukocyte Esterase Stl C. cayetanensis PCR Not Detected Stool Rotavirus A PCR Not Detected Stl Adenov F PCR Not Detected Stool Astrovirus (PCR) Not Detected Stool Campylobacter PCR Not Detected Stool Cryptosporidium PCR Not Detected Stl Sh Tox Pr E STEC PCR Not Detected Stool E coli O157 PCR Not applicable Stl Enterotoxigenic E PCR Not Detected Stool EPEC (PCR) Not Detected Stool EAEC (PCR) Not Detected Stl E. histolytica PCR Not Detected Stool Giardia Lamblia PCR Not Detected Stl P. shigelloides PCR Not Detected Stool Salmonella PCR Not Detected Stool Sapovirus (PCR) Not Detected Stl Shigella/EIEC PCR Not Detected St Y.enterocolitica PCR Not Detected Stool Vibrio (PCR) Not Detected Stl Vibrio cholerae PCR Not Detected Stl Norovirus GI/GII PCR Not Detected C. difficile Tox B Gene POSITIVE A* C. difficile Toxin A&B Positive A* C. difficile Interpret SEE NOTE Imaging Radiologist's Impressions: Impressions Cervical Spine CT 06/07/24 12:58 IMPRESSION: CT SCAN OF THE HEAD: 1. Limited assessment due to motion artifact. No definite acute intracranial pathology. 2. Chronic bilateral maxillary sinus disease. CT SCAN OF THE CERVICAL SPINE: 1. No evidence of cervical spine fracture or malalignment. 2. Severe degenerative disc disease in the mid and lower cervical spine with large posterior osteophytes projecting into the thecal sac and causing significant spinal stenosis at all levels from C4-C5 down to C6-C7. Head CT 06/07/24 12:58 IMPRESSION: CT SCAN OF THE HEAD: 1. Limited assessment due to motion artifact. No definite acute intracranial pathology. 2. Chronic bilateral maxillary sinus disease. CT SCAN OF THE CERVICAL SPINE: 1. No evidence of cervical spine fracture or malalignment. 2. Severe degenerative disc disease in the mid and lower cervical spine with large posterior osteophytes projecting into the thecal sac and causing significant spinal stenosis at all levels from C4-C5 down to C6-C7. Assessment and Plan (1) Rapid atrial fibrillation: Status: Acute (2) Dehydration: Status: Acute (3) Clostridioides difficile infection: Status: Acute Plan Shashank Fregoso is a 74 years old man admitted with: Diarrhea secondary to C.diff infection; it seems to be the 2nd recurrence. Admit to hospitalist service. Start IV hydration. Start treatment with fidaxomicin 200 mg PO bid. Avoid antidiarrhea medications. ID consult. Atrial fibrillation with rapid ventricular response likely triggered by dehydration. Continue IV fluids. Continue metoprolol and Eliquis. Right lower extremity cellulitis. Continue doxycycline IV. BPH. Chronic indwelling urinary catheter. Continue finasteride and tamsulosin. Chronic anemia. Continue to monitor hemoglobin. Generalized weakness. Physiotherapy. Chronic left foot ulcer and PVD. DVT prophylaxis: Eliquis Code status: Full Patient will need hospitalization for at least 2 midnights for C diff infection and dehydration treatment with antibiotics and IV fluids. Patient will need also cardiac monitoring and rate control agents for rapid AFib. Quality Stroke Does the patient have a stroke diagnosis?: No VTE Prior VTE?: No VTE Risk Level:: Medical - moderate - high VTE Device Contraindication: Treatment Not Indicated VTE Drug Contraindication: N/A - Med Ordered
--- NOTE | 2024-06-07 21:19 | PC.NURSE ---
Patient again incontintent of large amount of stool, cleaned and switched to hospital bed.
[2024-06-07] MEDS: Acetaminophen 325 MG TABLET 975 MG PO (21:25)
[2024-06-07] MEDS: Metoprolol Tartrate 50 MG TABLET PO (21:26)
--- NOTE | 2024-06-07 22:12 | PC.NURSE ---
Spoke to pharmacy RE:kurt not stocked, will send more doses down.
[2024-06-07] MEDS: vancomycin/NS 2,000 MG/500 ML PLAST..BAG 250 MG IV (22:44)
[2024-06-08] VITALS (14 sets, daily range): BP systolic 75–133; BP diastolic 30–78; PULSE 74–119; RESP 14–20; TEMP 36.5–39.2; O2SAT 94–99; BMI 24.2
--- NOTE | 2024-06-08 01:46 | MHC.EDTECH ---
Patient incontinent of stool, full bed change with RN, vitals done, call aguilar placed within patients reach.
[2024-06-08] MEDS: Lactated Ringers 1,000 ML 999 ML IV (06:09)
[2024-06-08] MEDS: Acetaminophen 1,000 MG/100 ML PIGGYBACK 400 MG IV (06:09)
[2024-06-08] MEDS: Lactated Ringers 1,000 ML 100 ML IVCONT ×3 (06:10→22:38)
[2024-06-08] MEDS: Fidaxomicin 200 MG TABLET PO ×2 (06:33→17:32)
--- NOTE | 2024-06-08 07:51 | PC.NURSE ---
this RN resumed care of pt at 0645. pt noted to be incontinent of large amount of watery stool. pericare performed. redness/inflammation noted to pt's bottom. after cleaning pt up, pt had another large incontinence episode of watery stool. rectal tube placed per provider order. balloon inflated to 30ml. tube seems to be draining at this time - will document amount in I&O. when changing pt - pt noted to be hot to the touch - rectal temp obtained/displaying 101. pt also hypotensive and tachycardic - HR between 115-120bpm. LR continues to infuse at 100mls/hr. otherwise, pt denies pain/has no complaints. no sob/wob noted. respirations even/unlabored. plan of care ongoing. call aguilar placed within reach.
--- NOTE | 2024-06-08 08:51 | PC.NURSE ---
admitting provider aware pt remains hypotensive at this time. LR continues to infuse. no new orders at this time.
[2024-06-08] MEDS: Apixaban 5 MG TABLET PO ×2 (11:08→20:23)
[2024-06-08] MEDS: Cyanocobalamin (Vitamin B-12) 500 MCG TABLET PO (11:08)
[2024-06-08] MEDS: Cholecalciferol (Vitamin D3) 25 MCG TABLET PO (11:08)
[2024-06-08] MEDS: Bethanechol Chloride 25 MG TABLET PO ×2 (11:08→20:23)
[2024-06-08] MEDS: Aspirin Enteric Coated 81 MG TABLET.DR PO (11:08)
[2024-06-08] MEDS: Doxycycline Hyclate 100 MG in 0.9 % Sodium Chloride 250 ML 166.67 MG IV (11:09)
--- NOTE | 2024-06-08 11:18 | PC.NURSE ---
Assumed care of this patient at 1100, meds delayed d/t pharmacy delivery delayed. Medicated per DEC. Patient awoken, VS checked, temp and BP improved, patient requesting food, snacks and water given.
--- NOTE | 2024-06-08 11:58 | MHC.CM.PN ---
CM attempted to meet with Patient at bedside, in the ED but Patient appeared to be confused. CM spoke with Brother/HCP/Javed @ [phone] and addressed IMM with him (original will be mailed certified mail to Javed and a copy will be placed on the chart). Patient lives in a house with his Brother, he uses a cane and a walker to assist with mobility and he is active with [facility]. Home/resume said services VS STR at [facility] is the tentative plan and [facility] has initiated and will follow for dc planning(PT Eval was attempted). PCP is Dr. Ramin Medrano. Javed is sure he has given [facility] a copy of the HCP but per Medical Records, we do not have a copy; Javed will attempt to bring in another copy.
--- NOTE | 2024-06-08 12:40 | PC.NURSE ---
Upon reviewing the chart, patient's AM labs had not been drawn this morning. Called phlebotomy to inquire why labs had not been drawn, per phleb patient had refused, requesting for phleb to return to attempt to draw patient. Spoke to patient about importance of blood draws, patient agreeable at this time.
--- NOTE | 2024-06-08 13:35 | P.PNIM_ITS ---
Subjective Subjective Date of Service: 06/09/24 Interval History: Being followed for diarrhea/dizziness and fall. Patient noted to have soft blood pressures this morning persistent diarrhea. At present denies abdominal pain, no nausea, no vomiting, denies dizziness, no fevers, feeling tired. Denies right leg pain. Review of Systems All other systems are reviewed and are negative Physical Exam 2 Vital Signs: Vital Signs: Last Vital Signs Temp 98.1 F 06/08/24 11:13 Pulse 100 06/08/24 11:13 Resp 16 06/08/24 11:13 BP 100/78 06/08/24 11:13 Pulse Ox 99 06/08/24 11:13 O2 Del Method Room Air 06/08/24 11:13 BMI result Body Mass Index 23.3 Const: Other: General awake alert x3, resting comfortably in no acute distress. Neck no JVD. CVS regular rate rhythm, Respiratory lungs clear to auscultation, no respiratory distress, no wheeze, no rhonchi. Gastrointestinal abdomen soft, non tender, bowel sounds audible, no guarding , no rigidity. Extremities no LE edema. Right mid leg below-knee open sore, no drainage, mild swelling warmth and hyperemia Neuro non focal Psych appropriate Chronic Davis catheter Rectal bag with liquidy brown stool. Objective Data Active Medications Acetaminophen (Acetaminophen 325 Mg Tablet) 975 mg PO Q6H PRN PRN Reason: Pain, Mild (Pain Scale 1-3), fever or headache Last Admin: 06/07/24 21:25 Dose: 975 mg Documented By: DOROTHEA Apixaban (Apixaban 5 Mg Tablet) 5 mg PO BID [facility] Last Admin: 06/08/24 11:08 Dose: 5 mg Documented By: DOROTHEA Aspirin (Aspirin Enteric Coated 81 Mg Tablet.) 81 mg PO DAILY [facility] Last Admin: 06/08/24 11:08 Dose: 81 mg Documented By: DOROTHEA Bethanechol Chloride (Bethanechol Chloride 25 Mg Tablet) 25 mg PO BID [facility] Last Admin: 06/08/24 11:08 Dose: 25 mg Documented By: DOROTHEA Cyanocobalamin (Cyanocobalamin (Vitamin B-12) 500 Mcg Tablet) 500 mcg PO DAILY [facility] Last Admin: 06/08/24 11:08 Dose: 500 mcg Documented By: DOROTHEA Fidaxomicin (Fidaxomicin 200 Mg Tablet) 200 mg PO Q12H [facility] Stop: 06/18/24 05:59 Last Admin: 06/08/24 06:33 Dose: 200 mg Documented By: DESEAN Finasteride (Finasteride 5 Mg Tablet) 5 mg PO BEDTIME [facility] Lactated Ringer's (Lr) 1,000 mls @ 125 mls/hr IVCONT .Q8H [facility] Last Admin: 06/08/24 06:10 Dose: 100 mls/hr Documented By: DESEAN Doxycycline Hyclate 100 mg/ (Sodium Chloride) 250 mls @ 166.67 mls/hr IV Q12H [facility] Last Infusion: 06/08/24 13:01 Dose: Infused Documented By: DOROTHEA Vancomycin HCl 1,500 mg/ (Sodium Chloride) 500 mls @ 333.333 mls/hr IV Q24H [facility] Melatonin (Melatonin 3 Mg Tablet) 6 mg PO BEDTIME PRN PRN Reason: Insomnia Metoprolol Tartrate (Metoprolol Tartrate 50 Mg Tablet) 50 mg PO BID [facility]; Protocol Last Admin: 06/08/24 09:06 Dose: Not Given Documented By: RIANA Non-Admin Reason: Physician Held Med Comments: hypotensive. not administered per provider order. Sodium Chloride (0.9 % Sodium Chloride Flush 3 Ml Syringe) 3 ml IVFLUSH QSHIFT [facility] Last Admin: 06/08/24 07:50 Dose: Not Given Documented By: RIANA Non-Admin Reason: IV Running Tamsulosin HCl (Tamsulosin Hcl 0.4 Mg Capsule) 0.4 mg PO BEDTIME [facility] Vitamin D (Cholecalciferol (Vitamin D3) 25 Mcg Tablet) 25 mcg PO DAILY [facility] Last Admin: 06/08/24 11:08 Dose: 25 mcg Documented By: DOROTHEA Labs 06/09/24 05:58 06/09/24 05:58 Labs: Laboratory Results - last 24 hr 06/07/24 06/07/24 06/07/24 15:48 15:56 22:05 Lactic Acid 1.0 Troponin I High Sens < 2.7 Stl C. cayetanensis PCR Not Detected Stool Rotavirus A PCR Not Detected Stl Adenov F 40/41 PCR Not Detected Stool Astrovirus (PCR) Not Detected Stool Campylobacter PCR Not Detected Stool Cryptosporidium PCR Not Detected Stl Sh Tox Pr E STEC PCR Not Detected Stool E coli O157 PCR Not applicable Stl Enterotoxigenic E PCR Not Detected Stool EPEC (PCR) Not Detected Stool EAEC (PCR) Not Detected Stl E. histolytica PCR Not Detected Stool Giardia Lamblia PCR Not Detected Stl P. shigelloides PCR Not Detected Stool Salmonella PCR Not Detected Stool Sapovirus (PCR) Not Detected Stl Shigella/EIEC PCR Not Detected St Y.enterocolitica PCR Not Detected Stool Vibrio (PCR) Not Detected Stl Vibrio cholerae PCR Not Detected Stl Norovirus GI/GII PCR Not Detected C. difficile Tox B Gene POSITIVE A* C. difficile Toxin A&B Positive A* C. difficile Interpret SEE NOTE Assessment and Plan (1) C. difficile diarrhea: Status: Acute (2) Dehydration: Status: Acute (3) Rapid atrial fibrillation: Status: Acute (4) Cellulitis of right leg: Status: Acute Plan Shashank Fregoso is a 74 years old man admitted with: Diarrhea secondary to C.diff infection; it seems to be the 2nd recurrence. Continue IV fluid, fidaxomicin 200 mg PO bid. Avoid antidiarrhea medications. Initial normal WBC, bumped up to 25,000, follow CBC , electrolyte and clinical course. Obtain ID consult Atrial fibrillation with rapid ventricular response likely triggered by dehydration. Continue IV fluids. Continue metoprolol and Eliquis. Right lower extremity cellulitis with sepsis present on admission. Tachycardia due to atrial fibrillation/low blood pressure due to dehydration with poor po intake and diarrhea not due to severe sepsis. Continue IV vanco and DC IV doxy, follow ID consult. Follow wound care consult Hypotension due to poor by mouth intake/diarrhea and beta-blockers, Acute hypo magnesemia likely due to GI loss will replete and follow labs. BPH. Chronic indwelling urinary catheter. Continue finasteride and tamsulosin. Chronic anemia. Continue to monitor hemoglobin. Fall due to Dizziness likely due to dehydration, CT head and C-spine unremarkable, treat infection as above, obtain PT eval prior to discharge. DVT prophylaxis: Eliquis Code status: Full Patient will need continued inpatient hospitalization for C diff infection and dehydration treatment with antibiotics and IV fluids. Patient will need also cardiac monitoring and rate control agents for rapid AFib. Quality Stroke Does the patient have a stroke diagnosis?: No VTE Prior VTE?: No VTE Risk Level:: Medical - moderate - high VTE Device Contraindication: Treatment Not Indicated VTE Drug Contraindication: N/A - Med Ordered
[2024-06-08] MEDS: Acetaminophen 325 MG TABLET 975 MG PO (13:43)
[2024-06-08 14:10] LABS: Hematocrit 30.1 % (42.0-52.0); Hemoglobin 10.3 g/dl (14.0-18.0); Mean Corpuscular HGB Conc 34.2 g/dl (31.0-36.0); Mean Corpuscular Hemoglobin 29.8 pg (27.0-33.0); Mean Platelet Volume 8.9 fL (9.4-12.4); Platelet Count 374 X10*3/uL (160-400); Red Blood Count 3.46 X10*6/uL (4.60-5.80); White Blood Count 25.5 X10*3/uL (4.8-10.8)
--- NOTE | 2024-06-08 14:19 | PC.NURSE ---
Phleb at bedside drawing labs. Patient repositioned in bed, still c/o of lethargy, ate 50% of lunch.
[2024-06-08 14:37] LABS: Band Neutrophils Percent 24 % (3-5); Basophils Abs Manual 0.3 X10*3/uL (0.0-0.2); Basophils Percent Manual 1 % (0-2); Lymphocytes Absolute Manual 1.5 X10*3/uL (1.2-4.9); Lymphocytes Percent Manual 6 % (20-40); Monocytes Absolute Manual 2.3 X10*3/uL (0.1-1.2); Monocytes Percent Manual 9 % (2-11); Neutrophils Absolute Manual 21.4 X10*3/uL (2.0-8.3); Neutrophils Percent Manual 60 % (45-73)
[2024-06-08 14:38] LABS: RBC Morphology NORMAL
[2024-06-08 14:39] LABS: Platelet Estimate NORMAL (NORMAL); Platelet Morphology Comment NORMAL; Toxic Vacuolation PRESENT
--- NOTE | 2024-06-08 14:49 | PC.NURSE ---
Patient continues to have trending low BPs, 80's-90's/40's, lethargic in bed, labs started to result WBC noted to jump from 10.4 to 25.5, admitting provider Dr. Yao made aware will come down to reassess patient.
--- NOTE | 2024-06-08 15:00 | PC.NURSE ---
Patient's R leg wound area warm to touch, draining small amount yellow purulent drainage. Dr. Yao to bedside, will review abx order, and order 1x dose midodrine.
[2024-06-08 15:36] LABS: Alanine Aminotransferase 8 U/L (0-40); Albumin Level 2.9 g/dL (3.5-5.0); Alkaline Phosphatase 69 U/L (39-117); Anion Gap 14 (12-20); Aspartate Amino Transferase 19 U/L (5-37); Bilirubin Total 0.5 mg/dL (0.0-1.0); Blood Urea Nitrogen 24 mg/dL (9-16); Calcium 8.5 mg/dL (8.4-10.2); Carbon Dioxide 19 mmol/L (22-29); Chloride 107 mmol/L (96-108); Estimated Glomerular Filt Rate 53; Glucose Random 218 mg/dL (60-115); Magnesium 1.3 mg/dL (1.6-2.6); Potassium 4.7 mmol/L (3.3-5.1); Sodium 135 mmol/L (135-145); Total Protein 5.9 g/dL (6.5-8.0)
[2024-06-08] MEDS: Magnesium Sulfate/H2O 2 GM/50 ML PIGGYBACK IV (15:59)
[2024-06-08] MEDS: Midodrine HCl 5 MG TABLET PO (15:59)
[2024-06-08] MEDS: Albumin Human 25 % 100 ML IV ×2 (16:00→17:39)
[2024-06-08 16:59] LABS: Lactic Acid 2.1 mmol/L (0.5-2.0)
[2024-06-08 18:37] LABS: Reflex Lactate? Lactic Acid Added
[2024-06-08 19:17] LABS: ~Lactic Acid-LAB USE ONLY 1.9 mmol/L (0.5-2.0)
[2024-06-08] MEDS: Finasteride 5 MG TABLET PO (20:23)
[2024-06-08] MEDS: Metoprolol Tartrate 50 MG TABLET PO (20:23)
[2024-06-08] MEDS: Tamsulosin HCL 0.4 MG CAPSULE PO (20:23)
--- NOTE | 2024-06-08 21:17 | HO.WOUND ---
Wound Consult: Initial 74yr old?[place] [facility] - See progress notes and H&P for detailed history.? Wound consult placed for Right Leg Wound POA.? Patient agreeable to assessment and photo documentation.?Per nurse and provider wound is in direct relation to Leg bag strap which has since been removed. Right Medial Leg Etiology: ?Device related Unstageable Pressure Injury - Present on Admission Wound Bed: adherent thick yellow slough Drainage / Odor: creamy yellow drainage noted on dressing Edges: ? irregular Maryuri wound: Mild erythema - ? No Induration, Fluctuance or Warmth noted Pain: pt denies pain Goals of Treatment: ? Santyl for enzymatic debridement and Off load pressure Perineal area Etiology: ??MASD with Fungal Dermatitis - Present on Admission Wound Bed: red pink blanchable tissue with advancing boarders of macular rash Drainage / Odor: moisture noted Edges: ? advancing Maryuri wound: Intact No Induration, Fluctuance or Warmth noted Pain: denies Goals of Treatment: ? Barrier cream to protect from moisture and friction and antifungal powder Recommendations: 1. Turn and Reposition every 2 hours and as needed for patient comfort.? Use pillows or wedges to support off loading positions. 2. Off Load all bony prominences with use of pillows and heel boots if needed.? Apply Preventative foams where needed. ? 3. Monitor for incontinence and moisture control, use barrier creams when needed for prevention and treatment. 4. Provide adequate and supplemental nutrition.? 5. Continue low air loss mattress. 6. When applicable maintain blood glucose levels per Providers order. 7. Perineal area - Off Load Pressure - Cleanse with PH balance spray or wipes, pat dry. ?Apply antifungal powder per provider order. Be sure to dust off excess to prevent caking. Apply thin layer of Triad to wound bed - only pat and dab no scrub and rub when soiling occurs. Reapply thin layer PRN after each episode of incontinence. 8. Right Medial Leg - Cleanse with NS moist gauze, pat dry. Apply skin prep to periwound. Apply thick layer of Santyl to wound bed cover with NS moist gauze followed by dry gauze ABD pad. Change daily. Re-consult wound care Nurse for wound deterioration or wound changes.
[2024-06-08] MEDS: vancomycin HCL 1,500 MG in 0.9 % Sodium Chloride 500 ML 333.3 MG IV (22:36)
[2024-06-09] MEDS: Lactated Ringers 1,000 ML 125 ML IVCONT (01:55)
[2024-06-09 03:36] VITALS: BP 117/53; PULSE 97; RESP 20; TEMP 36.2; O2SAT 98
[2024-06-09] MEDS: Fidaxomicin 200 MG TABLET PO ×2 (05:48→18:01)
[2024-06-09 06:14] LABS: Hematocrit 27.6 % (42.0-52.0); Hemoglobin 9.1 g/dl (14.0-18.0); Mean Corpuscular Hemoglobin 29.4 pg (27.0-33.0); Mean Corpuscular Volume 89.3 fL (80.0-98.0); Platelet Count 259 X10*3/uL (160-400); Red Blood Count 3.09 X10*6/uL (4.60-5.80)
--- NOTE | 2024-06-09 06:17 | PC.NURSE ---
Rectal tube came out. New one replaced. Tolerated well.Draining brown liquid stool.100 ml stool since tube replaced at 2200.
[2024-06-09 07:06] VITALS: BP 121/56; PULSE 105; RESP 18; TEMP 36.6; O2SAT 97
[2024-06-09 07:24] LABS: Anion Gap 13 (12-20); Blood Urea Nitrogen 23 mg/dL (9-16); Calcium 8.4 mg/dL (8.4-10.2); Carbon Dioxide 20 mmol/L (22-29); Chloride 108 mmol/L (96-108); Creatinine Clr Calc Pharmacy 57.8; Estimated Glomerular Filt Rate 51; Glucose Random 131 mg/dL (60-115); Magnesium 1.9 mg/dL (1.6-2.6); Potassium 3.6 mmol/L (3.3-5.1); Sodium 137 mmol/L (135-145)
[2024-06-09] MEDS: Bethanechol Chloride 25 MG TABLET PO ×2 (08:30→21:30)
[2024-06-09] MEDS: Aspirin Enteric Coated 81 MG TABLET.DR PO (08:30)
[2024-06-09] MEDS: 0.9 % Sodium Chloride Flush 3 ML SYRINGE IVFLUSH ×2 (08:30→18:00)
[2024-06-09] MEDS: Apixaban 5 MG TABLET PO ×2 (08:30→21:30)
[2024-06-09] MEDS: Cholecalciferol (Vitamin D3) 25 MCG TABLET PO (08:30)
[2024-06-09] MEDS: Cyanocobalamin (Vitamin B-12) 500 MCG TABLET PO (08:30)
[2024-06-09] MEDS: Metoprolol Tartrate 50 MG TABLET PO ×2 (08:30→21:29)
[2024-06-09 10:34] VITALS: BMI 24.2
[2024-06-09 12:00] VITALS: BP 102/52; PULSE 82; RESP 18; TEMP 36; O2SAT 98
--- NOTE | 2024-06-09 14:49 | P.PNIM_ITS ---
Subjective Subjective Date of Service: 06/09/24 Interval History: Being followed for C diff infections/right leg cellulitis likely due to Davis bag leg strap. Patient incontinent of large loose green stool this morning, denies fever, no chills, no abdominal pain, no nausea, no vomiting tolerated 100% of breakfast, denies right leg pain or discomfort, no acute issues overnight, rectal bag with green loose stool. Feels tired. Review of Systems All other system reviewed and negative Physical Exam 2 Vital Signs: Vital Signs: Last Vital Signs Temp 96.8 F 06/09/24 12:00 Pulse 82 06/09/24 12:00 Resp 18 06/09/24 12:00 BP 102/52 L 06/09/24 12:00 Pulse Ox 98 06/09/24 12:00 O2 Del Method Room Air 06/09/24 12:00 BMI result Body Mass Index 24.2 Const: Other: General awake alert x3, resting comfortably in no acute distress. Neck no JVD. CVS regular rate rhythm, Respiratory lungs clear to auscultation, no respiratory distress, no wheeze, no rhonchi. Gastrointestinal abdomen soft, non tender, bowel sounds audible, no guarding , no rigidity. Extremities no LE edema. Right leg below-knee open sore, with adherent thick yellow slough, unstageable pressure injury, no drainage, mild swelling warmth and hyperemia, no tenderness Neuro non focal Psych appropriate Chronic Davis catheter Rectal bag with liquidy green stool. Objective Data Active Medications Acetaminophen (Acetaminophen 325 Mg Tablet) 975 mg PO Q6H PRN PRN Reason: Pain, Mild (Pain Scale 1-3), fever or headache Last Admin: 06/08/24 13:43 Dose: 975 mg Documented By: DOROTHEA Apixaban (Apixaban 5 Mg Tablet) 5 mg PO BID [facility] Last Admin: 06/09/24 08:30 Dose: 5 mg Documented By: VIRGILIO Aspirin (Aspirin Enteric Coated 81 Mg Tablet.) 81 mg PO DAILY [facility] Last Admin: 06/09/24 08:30 Dose: 81 mg Documented By: VIRGILIO Bethanechol Chloride (Bethanechol Chloride 25 Mg Tablet) 25 mg PO BID [facility] Last Admin: 06/09/24 08:30 Dose: 25 mg Documented By: VIRGILIO Collagenase (Collagenase Clostridium Hist. 30 Gm Tube) 1 appl TOPICAL DAILY [facility]; Protocol Cyanocobalamin (Cyanocobalamin (Vitamin B-12) 500 Mcg Tablet) 500 mcg PO DAILY [facility] Last Admin: 06/09/24 08:30 Dose: 500 mcg Documented By: VIRGILIO Fidaxomicin (Fidaxomicin 200 Mg Tablet) 200 mg PO Q12H [facility] Stop: 06/18/24 05:59 Last Admin: 06/09/24 05:48 Dose: 200 mg Documented By: STEVE Finasteride (Finasteride 5 Mg Tablet) 5 mg PO BEDTIME [facility] Last Admin: 06/08/24 20:23 Dose: 5 mg Documented By: STEVE Melatonin (Melatonin 3 Mg Tablet) 6 mg PO BEDTIME PRN PRN Reason: Insomnia Metoprolol Tartrate (Metoprolol Tartrate 50 Mg Tablet) 50 mg PO BID [facility]; Protocol Last Admin: 06/09/24 08:30 Dose: 50 mg Documented By: VIRGILIO Pharmacy Consult (Consult Rx Vancomycin Dosing) 1 each MISCELLANE DAILY [facility] Sodium Chloride (0.9 % Sodium Chloride Flush 3 Ml Syringe) 3 ml IVFLUSH QSHIFT [facility] Last Admin: 06/09/24 08:30 Dose: 3 ml Documented By: VIRGILIO Tamsulosin HCl (Tamsulosin Hcl 0.4 Mg Capsule) 0.4 mg PO BEDTIME [facility] Last Admin: 06/08/24 20:23 Dose: 0.4 mg Documented By: STEVE Vitamin D (Cholecalciferol (Vitamin D3) 25 Mcg Tablet) 25 mcg PO DAILY [facility] Last Admin: 06/09/24 08:30 Dose: 25 mcg Documented By: VIRGILIO Labs 06/09/24 05:58 06/09/24 05:58 Labs: Laboratory Results - last 24 hr 06/08/24 06/08/24 06/08/24 14:00 16:32 19:00 MCV MCH MCHC RDW Plt Count MPV Absolute Nucleated RBC Nucleated RBC % (auto) Anion Gap 14 Estim Creat Clear Calc 59.0 Estimated GFR 53 Random Glucose 218 H Lactic Acid 2.1 H* Lactic Acid F/U @ 2Hr 1.9 Calcium 8.5 D Magnesium 1.3 L* Total Bilirubin 0.5 AST 19 ALT 8 Alkaline Phosphatase 69 Total Protein 5.9 L Albumin 2.9 L 06/09/24 05:58 MCV 89.3 MCH 29.4 MCHC 33.0 RDW 14.0 Plt Count 259 D MPV 9.0 L Absolute Nucleated RBC 0.000 Nucleated RBC % (auto) 0.0 Anion Gap 13 Estim Creat Clear Calc 57.8 Estimated GFR 51 Random Glucose 131 H Lactic Acid Lactic Acid F/U @ 2Hr Calcium 8.4 Magnesium 1.9 Total Bilirubin AST ALT Alkaline Phosphatase Total Protein Albumin Microbiology Microbiology Results: Microbiology 06/07/24 12:56 - Preliminary Blood - Venous No growth after 24 hours. 06/07/24 12:56 Blood Culture - Preliminary Blood - Venous No growth after 24 hours. Assessment and Plan (1) C. difficile diarrhea: Status: Acute (2) Dehydration: Status: Acute (3) Rapid atrial fibrillation: Status: Acute (4) Cellulitis of right leg: Status: Acute Plan Shashank Fregoso is a 74 years old man admitted with: Diarrhea secondary to C.diff infection; it seems to be the 2nd recurrence. Persistent diarrhea, tolerating by mouth, continue fidaxomicin 200 mg PO bid. Avoid antidiarrhea medications. Initial normal WBC, bumped up to 25,000 on 06/08 likely reactive, repeat WBC 06/09 normalized , stable electrolytes DC IV fluids Follow ID consult Atrial fibrillation with rapid ventricular response likely triggered by dehydration noted on . No recurrent episodes,continue metoprolol and Eliquis. Right lower extremity cellulitis /unstageable pressure sore with sepsis present on admission. Not due to diabetes, likely due to pressure from Davis bag strap Seen by wound nurse will place on santyl DC IV vancomycin, blood cultures x2 negative times 24 hours, follow final blood c/s and clinical course. Hypotension resolved was likely due to poor by mouth intake/diarrhea and beta- blockers, Acute lactic acidosis due to dehydration, treated with IV fluid repeat lactic acid normalized. Acute hypo magnesemia likely due to GI loss ,Repleted and normalized. BPH. Chronic indwelling urinary catheter. Continue finasteride and tamsulosin. Chronic anemia. stable, Continue to monitor hemoglobin. Fall due to Dizziness likely due to dehydration, CT head and C-spine unremarkable, treat infection as above, obtain PT eval prior to discharge. DVT prophylaxis: Eliquis Code status: Full Patient will need continued inpatient hospitalization for C diff infection and dehydration treatment with antibiotics and close fluid and electrolyte monitoring Patient will also need cardiac monitoring and rate control agents for rapid AFib. Quality Stroke Does the patient have a stroke diagnosis?: No VTE Prior VTE?: No VTE Risk Level:: Medical - moderate - high VTE Device Contraindication: Treatment Not Indicated VTE Drug Contraindication: N/A - Med Ordered
--- NOTE | 2024-06-09 14:50 | P.CDIM_ITS ---
PROVIDER RESPONSE TEXT: To clarify, the appropriate diagnosis supported by the clinical indicators: No, Cellulitis is not related to / associated with / due to Diabetes QUERY TEXT: PHYSICIAN'S DOCUMENTATION REQUEST Date of Query: 06/09/2024 02:31 PM EDT Patient Name: Shashank Fregoso Admit Date: 06/07/2024 Dear Deisy Yao MD, A review of the medical record indicates additional documentation may be needed. Please review below and update the documentation accordingly. Documentation includes the conditions of Cellulitis and Diabetes. Clinical Indicators: Right lower extremity cellulitis IV Doxycycline PMH DM Please clarify the relationship between these conditions: Yes, Cellulitis is related to / associated with / due to Diabetes No, Cellulitis is not related to / associated with / due to Diabetes Other (explain) Clinically unable to determine (explain) Thank you, Nikky Del Rio RN Use of terms such as suspected, likely, concern for, or probable (associated with a specific diagnosi s that is being evaluated, monitored, or treated as if it exists) are acceptable and can be coded in the inpatient se tting, when documented at the time of discharge. Please use your independent medical judgment in providing your response. THIS QUERY IS PART OF THE PERMANENT MEDICAL RECORD
[2024-06-09 15:25] VITALS: BP 107/50; PULSE 74; RESP 20; TEMP 36.4; O2SAT 96
[2024-06-09] MEDS: Collagenase Clostridium Hist. 30 GM TUBE 1 APPL TOPICAL (18:00)
[2024-06-09 19:16] VITALS: BP 113/53; PULSE 95; RESP 17; TEMP 36.7; O2SAT 96
[2024-06-09 21:29] VITALS: BP 113/53; PULSE 95
[2024-06-09] MEDS: Tamsulosin HCL 0.4 MG CAPSULE PO (21:30)
[2024-06-09] MEDS: Finasteride 5 MG TABLET PO (21:30)
[2024-06-09 21:49] LABS: Vancomycin Random 16.7 mcg/mL (15-20)
--- NOTE | 2024-06-09 22:39 | W.PM.IDCN ---
History of Present Illness Data of Consult Service Date: 06/08/24 Requesting physician: Deisy Yao Primary Care Provider: Ramin Medrano MD HPI Reason for consult: Cdiff in stool He presents with watery loose stools as well as hyptension and temperature to 102 for a day. He has some right leg swelling as well. He was discharged on 05/25 with Levaquin ,urine infection concern. He has rectal tube. He has been started on Fidaxomicin. Review of Systems Review of Systems: Yes Unobtainable due to mental status [facility] Past Medical History Medical History Bladder outlet obstruction Psoriasis Sepsis Elevated cholesterol Anemia BPH (benign prostatic hyperplasia) Diabetes Vitamin D deficiency Neuropathy HTN (hypertension) Chronic a-fib Amputation of great toe Osteomyelitis PVD (peripheral vascular disease) Amputation of toe of left foot Pre-diabetes History of neuropathy Arrhythmia Osteomyelitis of second toe of left foot Ulcer of left second toe Amputated toe of right foot History of heart valve abnormality Family History Family History Mother CAD (coronary artery disease) Family history: reviewed and not pertinent Surgical History Surgical History History of amputation of toe Status post amputation of toe Hx of amputation Status post ORIF of fracture of ankle Social History Social History Household Members: Family Housing: House Are you a primary healthcare science specialist to a significant other at home: No Do you presently have visiting nurse or other home services: Yes (home comfort services [facility]) Alcohol intake: never Comment: scheduled med Patient Tobacco Use Status: Never used Tobacco Smoked in Last 30 Days: No Second Hand Smoke Exposure: No Use of substances other than those prescribed or required for medical reasons: No Currently Displaying Signs/Symptoms of Drug Intoxication Withdrawal: No Have you been hit, kicked, punched, or otherwise hurt by someone within the past year? If so, by whom?: No Do you feel safe in your current relationship?: Yes Is there a partner from a previous relationship who is making you feel unsafe now?: No Are you made to feel afraid or neglected: No Advance Directives: Yes Advance Directives Information Provided: Yes Advance Directives on File: No Advance Directives Date on File: 08/07/20 Do you have a plan to hurt others: No Plan Recently lost weight without trying: Yes How much weight loss: 14-23 pounds Eating poorly because of decreased appetite: Yes Nutrition screen score: 5 Nutrition Risks: Dental problems Poor oral hygiene: No (recently lost 2 teeth they just fell out ) service: No Current occupational status: retired Meds Allergies Allergy/AdvReac Type Severity Reaction Status Date / Time penicillin V Allergy Intermediate rash Verified 06/07/24 11:38 amoxicillin Allergy Unknown Verified 06/07/24 11:38 Erythromycin Allergy Intermediate diarrhea Uncoded 05/20/24 23:41 Active Medications: Current Medications Acetaminophen (Acetaminophen 325 Mg Tablet) 975 mg PO Q6H PRN PRN Reason: Pain, Mild (Pain Scale 1-3), fever or headache Last Admin: 06/08/24 13:43 Dose: 975 mg Apixaban (Apixaban 5 Mg Tablet) 5 mg PO BID [facility] Last Admin: 06/09/24 21:30 Dose: 5 mg Aspirin (Aspirin Enteric Coated 81 Mg Tablet.Dr) 81 mg PO DAILY [facility] Last Admin: 06/09/24 08:30 Dose: 81 mg Bethanechol Chloride (Bethanechol Chloride 25 Mg Tablet) 25 mg PO BID [facility] Last Admin: 06/09/24 21:30 Dose: 25 mg Collagenase (Collagenase Clostridium Hist. 30 Gm Tube) 1 appl TOPICAL DAILY [facility]; Protocol Last Admin: 06/09/24 18:00 Dose: 1 appl Cyanocobalamin (Cyanocobalamin (Vitamin B-12) 500 Mcg Tablet) 500 mcg PO DAILY [facility] Last Admin: 06/09/24 08:30 Dose: 500 mcg Fidaxomicin (Fidaxomicin 200 Mg Tablet) 200 mg PO Q12H [facility] Stop: 06/18/24 05:59 Last Admin: 06/09/24 18:01 Dose: 200 mg Finasteride (Finasteride 5 Mg Tablet) 5 mg PO BEDTIME [facility] Last Admin: 06/09/24 21:30 Dose: 5 mg Melatonin (Melatonin 3 Mg Tablet) 6 mg PO BEDTIME PRN PRN Reason: Insomnia Metoprolol Tartrate (Metoprolol Tartrate 50 Mg Tablet) 50 mg PO BID [facility]; Protocol Last Admin: 06/09/24 21:29 Dose: 50 mg Sodium Chloride (0.9 % Sodium Chloride Flush 3 Ml Syringe) 3 ml IVFLUSH QSHIFT [facility] Last Admin: 06/09/24 18:00 Dose: 3 ml Tamsulosin HCl (Tamsulosin Hcl 0.4 Mg Capsule) 0.4 mg PO BEDTIME [facility] Last Admin: 06/09/24 21:30 Dose: 0.4 mg Vitamin D (Cholecalciferol (Vitamin D3) 25 Mcg Tablet) 25 mcg PO DAILY [facility] Last Admin: 06/09/24 08:30 Dose: 25 mcg Home Medications ?Medication ?Instructions ?Recorded ?Confirmed ?Last Taken ?Type lancets 28 gauge #100 ea 03/14/21 12/08/23 Unknown History cholecalciferol (vitamin D3) 25 25 mcg PO DAILY 03/04/24 06/07/24 05/20/24 History mcg (1,000 unit) tablet cyanocobalamin (vitamin B-12) 500 500 mcg PO DAILY 03/04/24 06/07/24 05/20/24 History mcg tablet tamsulosin 0.4 mg capsule 0.4 mg PO BEDTIME 03/04/24 06/07/24 Unknown History bethanechol chloride 25 mg tablet 25 mg PO BID 05/21/24 06/07/24 05/20/24 History aspirin 81 mg capsule 81 mg PO DAILY 06/07/24 06/07/24 Unknown History Physical Exam Vital Signs: Vital Signs: Last Vital Signs Temp 98.0 F 06/09/24 19:16 Pulse 95 06/09/24 21:29 Resp 17 06/09/24 19:16 BP 113/53 L 06/09/24 21:29 Pulse Ox 96 06/09/24 19:16 O2 Del Method Room Air 06/09/24 19:16 BMI result Body Mass Index 24.2 GI: Other: mild abdominal discomfort Results Labs 06/09/24 05:58 06/09/24 05:58 Labs: Short CBC 06/09/24 Range/Units 05:58 WBC 8.0 (4.8-10.8) X10*3/uL Hgb 9.1 L (14.0-18.0) g/dl Hct 27.6 L (42.0-52.0) % Plt Count 259 D (160-400) X10*3/uL BMP 06/09/24 05:58 Sodium 137 Potassium 3.6 D Chloride 108 Carbon Dioxide 20 L BUN 23 H Creatinine 1.36 Calcium 8.4 Microbiology Microbiology Results: Microbiology 06/07/24 12:56 Blood - Venous - Preliminary No growth after 48 hours. 06/07/24 12:56 Blood - Venous Blood Culture - Preliminary No growth after 48 hours. Assessment and Plan (1) C. difficile diarrhea: Status: Acute (2) Clostridioides difficile infection: Status: Acute (3) Dehydration: Status: Acute (4) Rapid atrial fibrillation: Status: Acute Plan He has likely Cdiff diarrhea,true. I dont think he has cellulitis of leg. Fidaxomicin may be used for 10 days. If it is not covered may switch to po Vancomycin 125 mg qid. Whenever on antibiotics again may give prophylactic po Vancomycin 125 mg qid as long as on antibiotics and for 48 hours after. No antibiotics for cellulitis needed.
[2024-06-10] VITALS (9 sets, daily range): BP systolic 96–147; BP diastolic 55–69; PULSE 59–94; RESP 17–23; TEMP 35.6–36.9; O2SAT 97–99
[2024-06-10] MEDS: Fidaxomicin 200 MG TABLET PO ×2 (06:00→18:27)
[2024-06-10] MEDS: Cholecalciferol (Vitamin D3) 25 MCG TABLET PO (07:39)
[2024-06-10] MEDS: Apixaban 5 MG TABLET PO ×2 (07:39→21:11)
[2024-06-10] MEDS: Cyanocobalamin (Vitamin B-12) 500 MCG TABLET PO (07:39)
[2024-06-10] MEDS: Aspirin Enteric Coated 81 MG TABLET.DR PO (07:40)
[2024-06-10] MEDS: 0.9 % Sodium Chloride Flush 3 ML SYRINGE IVFLUSH ×3 (07:40→21:11)
[2024-06-10] MEDS: Bethanechol Chloride 25 MG TABLET PO ×2 (07:40→21:11)
[2024-06-10] MEDS: Metoprolol Tartrate 50 MG TABLET PO ×2 (07:50→21:11)
[2024-06-10 08:59] LABS: Hematocrit 28.8 % (42.0-52.0); Hemoglobin 9.5 g/dl (14.0-18.0); Mean Corpuscular Hemoglobin 29.4 pg (27.0-33.0); Mean Corpuscular Volume 89.2 fL (80.0-98.0); Mean Platelet Volume 9.3 fL (9.4-12.4); Platelet Count 312 X10*3/uL (160-400); Red Blood Count 3.23 X10*6/uL (4.60-5.80); Red Cell Distribution Width 13.8 % (11.0-16.0)
[2024-06-10 09:01] LABS: Anion Gap 13 (12-20); Blood Urea Nitrogen 30 mg/dL (9-16); Calcium 8.6 mg/dL (8.4-10.2); Carbon Dioxide 21 mmol/L (22-29); Chloride 109 mmol/L (96-108); Creatinine Clr Calc Pharmacy 58.2; Estimated Glomerular Filt Rate 52; Glucose Random 167 mg/dL (60-115); Potassium 3.5 mmol/L (3.3-5.1); Sodium 139 mmol/L (135-145)
--- NOTE | 2024-06-10 11:45 | MHC.CLN ---
F/U PT WITH INCREASED NUTRITION RISK R/T PRESSURE INJURY PO INTAKE 100% X 2 MEALS DIET RX: 2GM NA -APPROPRIATE NOTED DM -MONITOR BS CLOSELY PT RECEIVING ENSURE MAX TID TO PROMOTE WOUND HEALING SUPP TO PROVIDE 450KCALS, 90G PROTEIN MONITOR PO INTAKE AND ENCOURAGE SUPPLEMENT
--- NOTE | 2024-06-10 12:52 | MHC.CM.PN ---
CM met with Patient at bedside to discuss PT's recommendation for STR. Patient's first choice facility/[facility] does not have an available bed; Patient has agreed to a local SNF search. CM will follow.
--- NOTE | 2024-06-10 13:14 | MHC.CM.PN ---
No male beds available from SNF search; [facility] may have a bed over the weekend. CM will follow.
--- NOTE | 2024-06-10 14:48 | HO.PM.IMPN ---
Subjective Subjective Date of Service: 06/10/24 Interval History: Feeling significantly better this morning denies abdominal pain, no nausea, no vomiting, diarrhea improving, no fevers no chills no lightheadedness or dizziness, denies leg pain wishes to be discharged to rehab since unable to take care of himself, lives at home with brother. Review of Systems All other system reviewed and are negative. Physical Exam Vital Signs: Vital Signs: Last Vital Signs Temp 98.5 F 06/10/24 12:00 Pulse 90 06/10/24 12:00 Resp 20 06/10/24 12:00 BP 110/68 06/10/24 12:00 Pulse Ox 99 06/10/24 12:00 O2 Del Method Room Air 06/10/24 12:00 BMI result Body Mass Index 24.2 Const: Other: General awake alert x3, resting comfortably in no acute distress. Neck no JVD. CVS regular rate rhythm, Respiratory lungs clear to auscultation, no respiratory distress, no wheeze, no rhonchi. Gastrointestinal abdomen soft, non tender, bowel sounds audible, no guarding , no rigidity. Extremities no LE edema. Right leg below-knee open sore, with adherent thick yellow slough, un stageable pressure injury, improving, no drainage, swelling warmth and hyperemia improving, no tenderness Neuro non focal Psych appropriate Chronic Davis catheter Rectal bag no stool this a.m. Objective Data Active Medications Acetaminophen (Acetaminophen 325 Mg Tablet) 975 mg PO Q6H PRN PRN Reason: Pain, Mild (Pain Scale 1-3), fever or headache Last Admin: 06/08/24 13:43 Dose: 975 mg Documented By: DOROTHEA Apixaban (Apixaban 5 Mg Tablet) 5 mg PO BID [facility] Last Admin: 06/10/24 07:39 Dose: 5 mg Documented By: VIRGILIO Aspirin (Aspirin Enteric Coated 81 Mg Tablet.) 81 mg PO DAILY [facility] Last Admin: 06/10/24 07:40 Dose: 81 mg Documented By: VIRGILIO Bethanechol Chloride (Bethanechol Chloride 25 Mg Tablet) 25 mg PO BID [facility] Last Admin: 06/10/24 07:40 Dose: 25 mg Documented By: VIRGILIO Collagenase (Collagenase Clostridium Hist. 30 Gm Tube) 1 appl TOPICAL DAILY [facility]; Protocol Last Admin: 06/09/24 18:00 Dose: 1 appl Documented By: ISAIAS Cyanocobalamin (Cyanocobalamin (Vitamin B-12) 500 Mcg Tablet) 500 mcg PO DAILY [facility] Last Admin: 06/10/24 07:39 Dose: 500 mcg Documented By: VIRGILIO Fidaxomicin (Fidaxomicin 200 Mg Tablet) 200 mg PO Q12H [facility] Stop: 06/18/24 05:59 Last Admin: 06/10/24 06:00 Dose: 200 mg Documented By: STEVE Finasteride (Finasteride 5 Mg Tablet) 5 mg PO BEDTIME [facility] Last Admin: 06/09/24 21:30 Dose: 5 mg Documented By: STEVE Melatonin (Melatonin 3 Mg Tablet) 6 mg PO BEDTIME PRN PRN Reason: Insomnia Metoprolol Tartrate (Metoprolol Tartrate 50 Mg Tablet) 50 mg PO BID [facility]; Protocol Last Admin: 06/10/24 07:50 Dose: 50 mg Documented By: VIRGILIO Sodium Chloride (0.9 % Sodium Chloride Flush 3 Ml Syringe) 3 ml IVFLUSH QSHIFT [facility] Last Admin: 06/10/24 07:40 Dose: 3 ml Documented By: VIRGILIO Tamsulosin HCl (Tamsulosin Hcl 0.4 Mg Capsule) 0.4 mg PO BEDTIME [facility] Last Admin: 06/09/24 21:30 Dose: 0.4 mg Documented By: STEVE Vitamin D (Cholecalciferol (Vitamin D3) 25 Mcg Tablet) 25 mcg PO DAILY [facility] Last Admin: 06/10/24 07:39 Dose: 25 mcg Documented By: VIRGILIO Labs 06/10/24 08:06 06/10/24 08:06 Labs: Laboratory Results - last 24 hr 06/09/24 06/10/24 20:53 08:06 MCV 89.2 MCH 29.4 MCHC 33.0 RDW 13.8 Plt Count 312 MPV 9.3 L Absolute Nucleated RBC 0.000 Nucleated RBC % (auto) 0.0 Anion Gap 13 Estim Creat Clear Calc 58.2 Estimated GFR 52 Random Glucose 167 H Calcium 8.6 Random Vancomycin 16.7 Microbiology Microbiology Results: Microbiology 06/07/24 12:56 - Preliminary Blood - Venous No growth after 48 hours. 06/07/24 12:56 Blood Culture - Preliminary Blood - Venous No growth after 48 hours. Assessment and Plan (1) C. difficile diarrhea: Status: Acute (2) Dehydration: Status: Acute (3) Rapid atrial fibrillation: Status: Acute (4) Cellulitis of right leg: Status: Acute Plan Shashank Fregoso is a 74 years old man admitted with: Diarrhea secondary to C.diff infection; Diarrhea improving, tolerating by mouth, continue fidaxomicin 200 mg PO bid. Avoid antidiarrhea medications. Initial normal WBC, bumped up to 25,000 on 06/08 likely reactive, repeat WBC 06/09 normalized , stable electrolytes Recommend outpatient ID follow-up Atrial fibrillation with rapid ventricular response likely triggered by dehydration noted on . No recurrent episodes,continue metoprolol and Eliquis. Right lower extremity cellulitis /unstageable pressure sore with sepsis present on admission. Not due to diabetes, likely due to pressure from Davis bag strap Seen by wound nurse will place on santyl Symptoms improved, antibiotic discontinued. Hypotension resolved, was likely due to poor by mouth intake/diarrhea and beta-blockers, Acute lactic acidosis due to dehydration, treated with IV fluid repeat lactic acid normalized. Acute hypo magnesemia likely due to GI loss ,Repleted and normalized. BPH. Chronic indwelling urinary catheter. Continue finasteride and tamsulosin. Outpatient follow-up with Dr. Boateng Chronic anemia. stable, Continue to monitor hemoglobin. Fall due to Dizziness likely due to dehydration, CT head and C-spine unremarkable, treat infection as above, PT recommend short-term rehab DVT prophylaxis: Eliquis Code status: Full Disposition to rehab cm securing safe discharge. Patient will need continued inpatient hospitalization for C diff infection and dehydration treatment need close fluid and electrolyte monitoring Patient will also need cardiac monitoring and rate control agents for rapid AFib. Quality Stroke Does the patient have a stroke diagnosis?: No VTE Prior VTE?: No VTE Risk Level:: Medical - moderate - high VTE Device Contraindication: Treatment Not Indicated VTE Drug Contraindication: N/A - Med Ordered
[2024-06-10] MEDS: Collagenase Clostridium Hist. 30 GM TUBE 1 APPL TOPICAL (18:28)
[2024-06-10] MEDS: Finasteride 5 MG TABLET PO (21:11)
[2024-06-10] MEDS: Tamsulosin HCL 0.4 MG CAPSULE PO (21:11)
[2024-06-11 03:24] VITALS: BP 116/64; PULSE 84; RESP 21; TEMP 36.1; O2SAT 99
[2024-06-11] MEDS: Fidaxomicin 200 MG TABLET PO ×2 (05:31→18:04)
[2024-06-11 06:57] LABS: Estimated Glomerular Filt Rate 54
[2024-06-11 07:46] VITALS: BP 141/66; PULSE 89; RESP 20; TEMP 36.2; O2SAT 100
[2024-06-11] MEDS: Aspirin Enteric Coated 81 MG TABLET.DR PO (09:43)
[2024-06-11] MEDS: Cholecalciferol (Vitamin D3) 25 MCG TABLET PO (09:43)
[2024-06-11] MEDS: 0.9 % Sodium Chloride Flush 3 ML SYRINGE IVFLUSH ×2 (09:43→18:05)
[2024-06-11] MEDS: Apixaban 5 MG TABLET PO (09:43)
[2024-06-11] MEDS: Metoprolol Tartrate 50 MG TABLET PO (09:44)
[2024-06-11] MEDS: Bethanechol Chloride 25 MG TABLET PO (09:44)
[2024-06-11] MEDS: Cyanocobalamin (Vitamin B-12) 500 MCG TABLET PO (09:44)
[2024-06-11] MEDS: Collagenase Clostridium Hist. 30 GM TUBE 1 APPL TOPICAL (10:09)
[2024-06-11 11:03] VITALS: BP 117/59; PULSE 89; RESP 20; TEMP 36.3; O2SAT 98
--- NOTE | 2024-06-11 15:05 | P.PNIM_ITS ---
Subjective Subjective Date of Service: 06/11/24 Interval History: Being followed for C diff infection. Feeling better this morning denies abdominal pain, no nausea, no vomiting tolerating diet, bowel movement more formed and less frequent. Review of Systems All other system reviewed and negative Physical Exam 2 Vital Signs: Vital Signs: Last Vital Signs Temp 97.4 F 06/11/24 11:03 Pulse 89 06/11/24 11:03 Resp 20 06/11/24 11:03 BP 117/59 L 06/11/24 11:03 Pulse Ox 98 06/11/24 11:03 O2 Del Method Room Air 06/11/24 11:03 BMI result Body Mass Index 24.2 Const: Other: General awake alert x3, resting comfortably in no acute distress. Neck no JVD. CVS regular rate rhythm, Respiratory lungs clear to auscultation, no respiratory distress, no wheeze, no rhonchi. Gastrointestinal abdomen soft, non tender, bowel sounds audible, no guarding , no rigidity. Extremities no LE edema. Right leg below-knee open sore, with adherent thick yellow slough significantly improved, un stageable pressure injury, improving, no drainage, swelling warmth and hyperemia improving, no tenderness Neuro non focal Psych appropriate Chronic Davis catheter Rectal bag brown stools. Objective Data Active Medications Acetaminophen (Acetaminophen 325 Mg Tablet) 975 mg PO Q6H PRN PRN Reason: Pain, Mild (Pain Scale 1-3), fever or headache Last Admin: 06/08/24 13:43 Dose: 975 mg Documented By: DOROTHEA Apixaban (Apixaban 5 Mg Tablet) 5 mg PO BID [facility] Last Admin: 06/11/24 09:43 Dose: 5 mg Documented By: DIANA Aspirin (Aspirin Enteric Coated 81 Mg Tablet.) 81 mg PO DAILY [facility] Last Admin: 06/11/24 09:43 Dose: 81 mg Documented By: DIANA Bethanechol Chloride (Bethanechol Chloride 25 Mg Tablet) 25 mg PO BID [facility] Last Admin: 06/11/24 09:44 Dose: 25 mg Documented By: DIANA Collagenase (Collagenase Clostridium Hist. 30 Gm Tube) 1 appl TOPICAL DAILY [facility]; Protocol Last Admin: 06/11/24 10:09 Dose: 1 appl Documented By: DIANA Cyanocobalamin (Cyanocobalamin (Vitamin B-12) 500 Mcg Tablet) 500 mcg PO DAILY [facility] Last Admin: 06/11/24 09:44 Dose: 500 mcg Documented By: DIANA Fidaxomicin (Fidaxomicin 200 Mg Tablet) 200 mg PO Q12H [facility] Stop: 06/18/24 05:59 Last Admin: 06/11/24 05:31 Dose: 200 mg Documented By: PRASHANTH Finasteride (Finasteride 5 Mg Tablet) 5 mg PO BEDTIME [facility] Last Admin: 06/10/24 21:11 Dose: 5 mg Documented By: PRASHANTH Melatonin (Melatonin 3 Mg Tablet) 6 mg PO BEDTIME PRN PRN Reason: Insomnia Metoprolol Tartrate (Metoprolol Tartrate 50 Mg Tablet) 50 mg PO BID [facility]; Protocol Last Admin: 06/11/24 09:44 Dose: 50 mg Documented By: DIANA Sodium Chloride (0.9 % Sodium Chloride Flush 3 Ml Syringe) 3 ml IVFLUSH QSHIFT [facility] Last Admin: 06/11/24 09:43 Dose: 3 ml Documented By: DIANA Tamsulosin HCl (Tamsulosin Hcl 0.4 Mg Capsule) 0.4 mg PO BEDTIME [facility] Last Admin: 06/10/24 21:11 Dose: 0.4 mg Documented By: PRASHANTH Vitamin D (Cholecalciferol (Vitamin D3) 25 Mcg Tablet) 25 mcg PO DAILY [facility] Last Admin: 06/11/24 09:43 Dose: 25 mcg Documented By: DIANA Labs 06/10/24 08:06 06/11/24 05:56 Labs: Laboratory Results - last 24 hr 06/11/24 05:56 Estim Creat Clear Calc 60.0 Estimated GFR 54 Assessment and Plan (1) C. difficile diarrhea: Status: Acute Plan Shashank Fregoso is a 74 years old man admitted with: Diarrhea secondary to C.diff infection; Diarrhea improving, tolerating by mouth, on fidaxomicin 200 mg PO bid started on 06/08. Initial normal WBC, bumped up to 25,000 on 06/08 likely reactive, repeat WBC 06/09 normalized , stable electrolytes If fidaxomicin not covered by insurance will transition to by mouth vancomycin for total 10 days upon dc Id recommend prophylactic by mouth vancomycin 125 q.i.d. as long as on antibiotics and for 48 hours after, whenever patient is placed on antibiotics again. dc rectal tube Atrial fibrillation with rapid ventricular response likely triggered by dehydration noted on . No recurrent episodes,continue metoprolol and Eliquis. Right lower extremity cellulitis /unstageable pressure sore with sepsis present on admission. Not due to diabetes, likely due to pressure from Davis bag strap Seen by wound nurse on santyl Right leg redness improved, antibiotic discontinued. Hypotension resolved, was likely due to poor by mouth intake/diarrhea and beta- blockers, Acute lactic acidosis due to dehydration, treated with IV fluid repeat lactic acid normalized. Acute hypo magnesemia likely due to GI loss ,Repleted and normalized. BPH. Chronic indwelling urinary catheter. Continue finasteride and tamsulosin. Outpatient follow-up with Dr. Boateng Chronic anemia. stable, Continue to monitor hemoglobin. Fall due to Dizziness likely due to dehydration, CT head and C-spine unremarkable, treat infection as above, PT recommend short-term rehab DVT prophylaxis: Eliquis Code status: Full Disposition to rehab cm securing safe discharge. Patient will need continued inpatient hospitalization for C diff infection and dehydration treatment need close fluid and electrolyte monitoring Patient will also need cardiac monitoring and rate control agents for rapid AFib. Quality Stroke Does the patient have a stroke diagnosis?: No VTE Prior VTE?: No VTE Risk Level:: Medical - moderate - high VTE Device Contraindication: Treatment Not Indicated VTE Drug Contraindication: N/A - Med Ordered
--- NOTE | 2024-06-11 15:42 | P.DS_ITS ---
DS: Providers Provider Date of Service: 06/11/24 Date of admission: 06/07/24 19:55 Date of discharge: 06/11/24 Primary care physician: Ramin Medrano MD Consults: 06/07/24 16:34 Consult to Case Management Stat Comment: 06/07/24 21:07 Consult to Infectious Diseases Routine Consulting Provider: [facility] Reason for consultation: Diarrhea, C diff infection Has provider been notified: No 06/08/24 15:01 Consult to Wound Care Routine Reason for consultation: R leg wound from leg bag DS: Diagnosis Discharge Diagnosis (1) C. difficile diarrhea: Status: Acute DS: Summary Hospital Course Hospital Course: History of presenting illness: Date of Service: 06/07/24 Attending physician on admission: Antonette Singh Chief Complaint: Generalized weakness Shashank Fregoso is a 74 years old man with past medical history significant for chronic indwelling urinary catheter, MSSA bacteremia, essential hypertension, atrial fibrillation on Eliquis, PVD s/p angioplasty of left posterior tibial artery, chronic left plantar foot ulcer was brought to the emergency department after he sustained a fall because he was feeling dizzy. Denies head trauma or l oss of consciousness. Patient also complained of multiple events of watery diarrhea over the last several days. He denied abdominal pain, nausea, vomiting, fevers or chills. He also denies headache, shortness for breath, chest pain or palpitations. In the ED to [facility], he was found to have left right lower extremity cellulitis. Denied alcohol abuse, illicit drug use or tobacco smoking. He has history of left 2nd toe osteomyelitis status post amputation. Patient lives with his brother and is unable to take care of himself. Patient was treated with Levaquin last month for UTI/sepsis. In ED, he was found to have tachycardia consistent with rapid atrial fibrillation. Blood pressure is 154/63. Oxygen saturation is normal on room air. Blood workup showed no leukocytosis. Hemoglobin is 10.4 which is around baseline. Platelets are normal. INR is 1.2. There are no electrolyte imbalances. Creatinine is 1.32. LFTs are normal. Troponin negative x2. GI panel was negative except for C diff toxin. ED tx: NS 1 L bolus, vancomycin 125 mg PO. Hospital course: Shashank Fregoso is a 74 years old man admitted with diarrhea and diagnosed to have recurrent C diff infection and sepsis initially treated with fidaxomicin 200 mg by mouth b.i.d. received 3 days of therapy, WBC normalized, diarrhea slow down patient evaluated by Infectious Disease she recommend total 10 days of treatment will discharge him on vancomycin 125 mg q.i.d. for 7 more days, if patient is placed on antibiotic for some reason ID recommend prophylactic by mouth vancomycin 125 mg q.i.d. as long as on antibiotic and for 48 hours after recommend outpatient follow-up with ID, noted to stable chronic anemia. Patient noted to have an episode of Atrial fibrillation with rapid ventricular response likely triggered by dehydration noted on , treated with beta- blockers with good affect noted to have no recurrent episodes. continue metoprolol and Eliquis. Right lower extremity unstageable pressure sore present on admission, Not due to diabetes, likely due to pressure from Davis bag strap , seen by wound nurse continue daily dressing with Santyl, initially felt to have right lower extremity cellulitis and placed on antibiotics later discontinued as per ID recommendation. Hypotension resolved, was likely due to poor by mouth intake/diarrhea and beta- blockers. Acute lactic acidosis due to dehydration, treated with IV fluid repeat lactic acid normalized. Acute hypo magnesemia likely due to GI loss ,Repleted and normalized. BPH. Chronic indwelling urinary catheter. Continue finasteride and tamsulosin. Outpatient follow-up with Dr. Boateng Fall due to Dizziness likely due to dehydration, CT head and C-spine unremarkable, seen by Physical therapy and is being discharged to rehab due to weakness. Time Attestation Discharge Coordination Time (in mins): 40 Quality: Safe Use of Opioids Does Pt have an Active Cancer Diagnosis on the Problem List?: No Quality: Stroke Does the patient have a stroke diagnosis?: No Physical Exam Vital Signs: Vital Signs: Last Vital Signs Temp 97.4 F 06/11/24 11:03 Pulse 89 06/11/24 11:03 Resp 20 06/11/24 11:03 BP 117/59 L 06/11/24 11:03 Pulse Ox 98 06/11/24 11:03 O2 Del Method Room Air 06/11/24 11:03 BMI result Body Mass Index 24.2 Const: Other: General awake alert x3, resting comfortably in no acute distress. Neck no JVD. CVS regular rate rhythm, Respiratory lungs clear to auscultation, no respiratory distress, no wheeze, no rhonchi. Gastrointestinal abdomen soft, non tender, bowel sounds audible, no guarding , no rigidity. Extremities no LE edema. Right leg below-knee open sore, with adherent thick yellow slough significantly improved, un stageable pressure injury, improving, no drainage, swelling warmth and hyperemia improved, no tenderness Neuro non focal Psych appropriate Chronic Davis catheter DS: Data Data Completed and Pending Completed studies during hospitalization [Text1]: Procedures Detachment at Left 1st Toe, Complete, Open Approach (01/23/21) Detachment at Left 2nd Toe, Low, Open Approach (10/10/20) Detachment at Left 3rd Toe, Complete, Open Approach (01/13/22) Dilation of Left Posterior Tibial Artery, Percutaneous Approach (01/23/21) Excision of Left Foot Skin, External Approach (01/23/21) Insertion of Infusion Device into Right Brachial Vein, Percutaneous Approach (03/04/24) Insertion of Infusion Device into Superior Vena Cava, Percutaneous Approach (01/13/22) Labs on day of discharge: Laboratory Results - last 24 hr 06/11/24 05:56 Creatinine 1.31 Estim Creat Clear Calc 60.0 Estimated GFR 54 Preliminary micro results at discharge 06/07/24 12:56 - Preliminary Blood - Venous No growth after 48 hours. 06/07/24 12:56 Blood Culture - Preliminary Blood - Venous No growth after 48 hours. Discharge Plan Discharge Anticipated Discharge Date/Time: 06/11/24 15:38 Patient Disposition: Xfer SNF Discharge Diagnosis: C diff colitis Referrals: Ramin Medrano MD [Primary Care Provider] - 1 Week Discharge Medications: New Santyl 250 unit/gram Ointment 1 appl topical DAILY Qty: 15 0RF Protocol: Apply to: Apply to: rt leg wound Continued metoprolol tartrate 50 mg tablet 50 mg PO BID 90 Days Qty: 180 3RF Eliquis 5 mg tablet 5 mg PO BID Qty: 180 3RF Hold Instructions: Resume on 10/12/20. Resume taking your Eliquis on 10/12/2020, after your visit with the visiting nurse. bethanechol chloride 25 mg tablet 25 mg PO BID aspirin 81 mg Capsule 81 mg PO DAILY cyanocobalamin (vitamin B-12) 500 mcg Tablet 500 mcg PO DAILY tamsulosin 0.4 mg capsule 0.4 mg PO BEDTIME cholecalciferol (vitamin D3) 25 mcg (1,000 unit) Tablet 25 mcg PO DAILY (DME) lancets 28 gauge misc See Rx Instructions topical DAILY Qty: 100 Rx Instructions: As directed finasteride 5 mg tablet 5 mg PO BEDTIME 90 Days Qty: 90 1RF Discharge Orders: Discharge Order (Routine); Ordered 06/11/24 Ordered By: Deisy Yao Diet: Advance to usual diet Activity on Discharge: As tolerated Stand Alone Forms: Patient Portal Discharge page Print Language: Vincentian Care Plan Goals: Recurrent C diff infection continue vancomycin 125 mg q.i.d. for 7 more days Continue all home medications Daily right leg dressing change. Health Concerns: Atrial fibrillation Continue Davis catheter Plan of Treatment: Outpatient follow-up with primary care physician call for appointment Assessment: As above
[2024-06-11 15:51] VITALS: BP 101/58; PULSE 84; RESP 17; TEMP 36.6; O2SAT 98
--- NOTE | 2024-06-11 15:57 | MHC.CM.PN ---
Second IMM 06/11/24, pt. has been medically cleared for DC. He will go today to [facility] via [facility]. CM notified pt.'s brother Abhilash via phone call.
== END 2024-06-11 18:20 | disposition skilled nursing facility (03) | DRG 872 ==
LOC: HO.ED 16:34 → HO.EDOVER 19:59 → HO.S3 06-08 10:09 → HO.EDOVER 06-08 10:33 → HO.IMC 06-08 15:43
PROVIDERS: Physician Assistant Medical; Admitting Provider Internal Medicine; Emergency Provider Emergency Medicine; PCP Internal Medicine; Visit Provider Hospitalist
DX: A41.9 Sepsis, unspecified organism (principal); A04.71 Enterocolitis due to Clostridium difficile, recurrent; L03.115 Cellulitis of right lower limb; E87.21 Acute metabolic acidosis; I95.9 Hypotension, unspecified; L89.890 Pressure ulcer of other site, unstageable; I48.91 Unspecified atrial fibrillation; N40.0 Benign prostatic hyperplasia without lower urinary tract symptoms; D64.9 Anemia, unspecified; E86.0 Dehydration; E83.42 Hypomagnesemia; Z79.01 Long term (current) use of anticoagulants; Z79.82 Long term (current) use of aspirin; Z79.899 Other long term (current) drug therapy
CPT/HCPCS: 36415; 70450; 72125; 80048; 80053; 80202; 81003; 82565; 82947; 83605; 83735; 84484; 85007; 85025; 85027; 85610; 87040; 87324; 87493; 87507; 93005; 97162; 99285; C1758; J0131; J3370; J3371; J3475; J7120; P9047

== ENCOUNTER → 2024-06-07 11:46 | Outpatient (BNV) | payer MEDICARE, BC, SELFPAY | PROVIDERS: Emergency Provider Emergency Medicine; PCP Internal Medicine; Visit Provider Internal Medicine Cardiovascular Disease | DX: R55 Syncope and collapse (principal) | CPT/HCPCS: 93010 ==

== ENCOUNTER → 2024-06-07 19:55 | Outpatient (BNV) | payer MEDICARE, BC, SELFPAY | PROVIDERS: Admitting Provider Internal Medicine; Emergency Provider Emergency Medicine; PCP Internal Medicine; Visit Provider Internal Medicine | DX: A04.72 Enterocolitis due to Clostridium difficile, not specified as recurrent (principal) | CPT/HCPCS: 99223; 99232; 99239 ==

== ENCOUNTER → 2024-06-07 19:55 | Outpatient (BNV) | payer MEDICARE, BC, SELFPAY | PROVIDERS: Admitting Provider Internal Medicine; Emergency Provider Emergency Medicine; PCP Internal Medicine; Visit Provider Internal Medicine | DX: A04.72 Enterocolitis due to Clostridium difficile, not specified as recurrent (principal); A49.8 Other bacterial infections of unspecified site; E86.0 Dehydration; I48.91 Unspecified atrial fibrillation | CPT/HCPCS: 99222 ==

== ENCOUNTER 2024-07-02 08:45 | Inpatient (IN) | payer MEDICARE, BC, SELFPAY ==
[2024-07-02] VITALS (13 sets, daily range): BP systolic 91–160; BP diastolic 57–85; PULSE 82–161; RESP 16–23; TEMP 36.6–38.7; O2SAT 95–100; BMI 25.0
--- NOTE | 2024-07-02 | ECG_ITS ---
Test Reason : TACHYCARDIA Blood Pressure : / mmHG Vent. Rate : 154 BPM Atrial Rate : 000 BPM P-R Int : 000 ms QRS Dur : 082 ms QT Int : 298 ms P-R-T Axes : 000 014 158 degrees QTc Int : 477 ms Atrial fibrillation with rapid ventricular response with premature ventricular or aberrantly conducted complexes Possible Anterior infarct , age undetermined Abnormal ECG When compared with ECG of 07-JUN-2024 20:03, Atrial fibrillation has replaced Sinus rhythm Nonspecific T wave abnormality now evident in Lateral leads Referred By: Alejandrina Torres Electronically Signed By:TRINIDAD OBRIEN
--- NOTE | ~2024-07-02 | CT_ITS ---
EXAMINATION: CT ABDOMEN AND PELVIS WITH CONTRAST CLINICAL INFORMATION: Hematuria COMPARISON: CT abdomen/pelvis March 03, 2024 TECHNIQUE: Multiple axial images were obtained from the superior aspect of the liver through the pubic symphysis after the administration of 85 mL of intravenous Omnipaque. Images were evaluated on independent dedicated 3-D workstation and 3-D images were reconstructed with concurrent radiologist supervision and subsequently interpreted. Oral contrast was not administered. This CT examination was performed using dose optimization techniques as appropriate, variously including the following: *Automated exposure control *Adjustment of mA and/or kV according to patient size (this includes techniques or standardized protocols for targeted exams where dose is matched to indication/reason for exam; i.e. extremities or head) *Use of iterative reconstruction technique DLP: 587 mGy-cm FINDINGS: LUNG BASES: The visualized lung bases are clear. CARDIOMEDIASTINUM: The visualized heart is normal in size without pericardial effusion. Mild coronary artery calcification. LIVER: Homogeneous in attenuation. Normal in size. GALLBLADDER: Cholelithiasis. Noninflamed. BILIARY SYSTEM: No intrahepatic or extrahepatic biliary dilation. PANCREAS: Homogeneous in attenuation. SPLEEN: Normal in size. GENITOURINARY: Bilateral kidneys demonstrate symmetric enhancement. No perinephric fluid collection. No renal calculi. Severe distention of the urinary bladder with nondependent foci of gas, circumferential wall thickening, and pericystic inflammatory changes. Upstream mild bilateral hydroureter and hydronephrosis. Transurethral Davis catheter terminates within the membranous urethra. ADRENAL GLANDS: Unremarkable. REPRODUCTIVE: Prostate present with coarse calcifications. GASTROINTESTINAL: The visualized alimentary tract is normal in course. No evidence of obstruction. APPENDIX: The appendix is seen in its entirety and is unremarkable. PERITONEUM: No pneumoperitoneum. No intra-abdominal fluid collection. VASCULATURE: The abdominal aorta is normal in course and caliber. LYMPH NODES: No pathologically enlarged abdominal or pelvic lymph nodes. SOFT TISSUES/MUSCULOSKELETAL: Multilevel degenerative changes of the lumbar spine. No acute fractures or focal osseous lesions. CT/CT abdomen pelvis wo IV con IMPRESSION: Severe distention of the urinary bladder with circumferential wall thickening, gas, and perivesicular stranding resulting in mild upstream hydroureteronephrosis. Transurethral Davis catheter tip terminates within the membranous urethra. Fleischner guidelines were followed. Electronically signed by: Sylvester Lopez DO 07/02/2024 10:31 PM EDT RP
--- NOTE | 2024-07-02 09:19 | PC.NURSE ---
patient arrives via EMS from home, was [facility] , patient was admitted to rehab facility s/p c.diff. patient states he has been dealing with this diarrhea on and off since december, was discharged from rehab but tells this RN that he never stopped having diarrhea. patient states sometimes he is able to know when he has to use the bathroom and others he is incontinent of stool. patient presents covered in stool, changed into appropriate hospital attire and cleaned by this RN. moisture associated skin rash noted to niyah area, patient cleaned and dried by this RN. patient also presents with chronic carmichael, carmichael is in garbage bag upon arrival, patient states its been leaking so they put it in the garbage bag. garbrage bag noted to be fillled with urine. leg bag replaced by this RN at this time. carmichael appears dirty, patient unsure when it was last changed. patient denies any abdominal pain, nausea or vomiting, states he is just tired of having diarrhea. denies fevers or chills. abdomen soft and nontender, normoactive BS appreciated in all four quadrants. patient alert and oriented x4. answering questions appropriately. VSS upon arrival. patient states he usually ambulates at home with a walker and is supposed to have [facility] come and check his carmichael. lives at home with his brother, patient presents disheveled and appears uncared for.
--- NOTE | 2024-07-02 09:44 | ED_ITS ---
HPI - Nausea/Vomiting/Diarrhea General Chief complaint: Nausea/Vomiting/Diarrhea Stated complaint: Diarrhea Time Seen by Provider: 07/02/24 09:16 Source: patient Mode of arrival: EMS Limitations: no limitations History of Present Illness HPI Narrative: This is a 74 years old male with history of C difficile colitis, AFib indwelling catheter presented to the emergency department complaining of diarrhea. He was recently discharged from nursing facility to home he called the ambulance today because his going multiple times to the bathroom MD elicited complaint: nausea and diarrhea Onset (ago): week(s) Description of diarrhea: watery Associated nausea: Yes Associated abdominal pain: No Quality: cramping Related Data Home Medications ?Medication ?Instructions ?Recorded ?Confirmed lancets 28 gauge #100 ea 03/14/21 12/08/23 cholecalciferol (vitamin D3) 25 25 mcg PO DAILY 03/04/24 07/02/24 mcg (1,000 unit) tablet cyanocobalamin (vitamin B-12) 500 500 mcg PO DAILY 03/04/24 07/02/24 mcg tablet tamsulosin 0.4 mg capsule 0.4 mg PO BEDTIME 03/04/24 07/02/24 bethanechol chloride 25 mg tablet 25 mg PO BID 05/21/24 07/02/24 aspirin 81 mg capsule 81 mg PO DAILY 06/07/24 07/02/24 Previous Rx's ?Medication ?Instructions ?Recorded finasteride 5 mg tablet 5 mg PO BEDTIME 90 days #90 tabs 12/08/23 metoprolol tartrate 50 mg tablet 50 mg PO BID 90 days #180 tabs 02/08/24 apixaban 5 mg tablet (Eliquis) 5 mg PO BID #180 tabs 02/16/24 collagenase clostridium histo. 250 1 appl topical DAILY #15 grams 06/10/24 unit/gram topical ointment (Santyl) bethanechol chloride 25 mg tablet 25 mg PO BID 90 days #180 tabs 06/20/24 Allergies Allergy/AdvReac Type Severity Reaction Status Date / Time penicillin V Allergy Intermediate rash Verified 07/02/24 09:08 amoxicillin Allergy Unknown Verified 07/02/24 09:08 Erythromycin Allergy Intermediate diarrhea Uncoded 07/02/24 09:08 Review of Systems 2 Constitutional: Constitutional: Reports no additional constitutional complaints Respiratory: Respiratory: Reports no additional respiratory complaints Gastrointestinal: Gastrointestinal: Reports diarrhea and Reports nausea [facility] Past Medical History Attestation statement: The following information was validated with the patient. [facility] Narrative: C difficile colitis, atrial fibrillation Medical History Bladder outlet obstruction Psoriasis Sepsis Elevated cholesterol Anemia BPH (benign prostatic hyperplasia) Diabetes Vitamin D deficiency Neuropathy HTN (hypertension) Chronic a-fib Amputation of great toe Osteomyelitis PVD (peripheral vascular disease) Amputation of toe of left foot Pre-diabetes History of neuropathy Arrhythmia Osteomyelitis of second toe of left foot Ulcer of left second toe Amputated toe of right foot History of heart valve abnormality Surgical History History of amputation of toe Status post amputation of toe Hx of amputation Status post ORIF of fracture of ankle Family History Family History Mother CAD (coronary artery disease) Social History Social History Household Members: Family Housing: House Are you a primary field care coordinator to a significant other at home: No Do you presently have visiting nurse or other home services: Yes (home comfort services [facility] [place]) Alcohol intake: never Comment: scheduled med Patient Tobacco Use Status: Never used Tobacco Smoked in Last 30 Days: No Second Hand Smoke Exposure: No Use of substances other than those prescribed or required for medical reasons: No Advance Directives: No Advance Directives Information Provided: Yes Advance Directives Date on File: 08/07/20 Do you have a plan to hurt others: No Plan service: No Current occupational status: retired Physical Exam 2 Vital Signs: Vital Signs: Last Vital Signs Temp 98.4 F 07/02/24 14:00 Pulse 106 H 07/02/24 14:00 Resp 19 07/02/24 14:00 BP 160/59 H 07/02/24 14:00 Pulse Ox 100 07/02/24 14:00 O2 Del Method Room Air 07/02/24 14:00 BMI result Body Mass Index 25.0 Const: General: cooperative Nutritional Appearance: average body habitus Orientation/consciousness: oriented to person and patient oriented x3 L imitations: no limitations HEENT: Head: Yes normal to inspection Face and sinus: Yes normal facial exam Mouth: Normal oral and palatal mucosa present Throat: Yes posterior oropharynx normal Neck: Neck: Yes normal visual inspection Chest: Chest palpation & inspection: normal inspection of the chest Resp: Effort & Inspection: normal respiratory effort Auscultation: clear to auscultation bilaterally Cardio: Jugular venous distension: no JVD Rate: regular rate Rhythm: r egular rhythm GI: Inspection: Yes normal to inspection Palpation (GI): Soft to palpation, not firm and nontender Skin: General skin exam: no rashes or lesions noted Lesions: no lesions Rashes: no rashes Neuro: General: oriented to person and patient oriented x3 Cranial nerves: Yes CN's II-XII intact bilaterally Course Reevaluation(s) Reevaluation #1: Labs are within normal limits the vital signs normal, I do not think this patient needs criteria for admission, he was recent at the rehab, we will consult case management coordinator and PT Time: 10:29 Reevaluation #2: Patient was seen by the case management coordinator PT, this is no safe discharge, case management coordinator will place the patient nursing facility. To be noted during his stay in the emergency department and no diarrhea was noted. I sent anyway a request for C diff if he has diarrhea. At this point we will start ED observation Time: 15:43 Reevaluation #3: Pt was signed off to Dr Lopez Time: 15:58 Medications Administered Discontinued Medications Generic Name Dose Route Start Last Admin Trade Name Freq PRN Reason Stop Dose Admin Sodium Chloride 1,000 mls @ 999 mls/hr 07/02/24 09:30 07/02/24 10:56 Ns IVCONT 07/02/24 10:30 Infused .Q1H1M CODY Infusion Medical Decision Making Medical Decision Making [facility] Narrative: Patient presented with diarrhea will obtain labs electrolyte will give IV fluids Differential Diagnosis Differential Diagnoses: The differential diagnosis associated with the presentation includes C difficile colitis dehydration renal failure Admission/Observation Consideration of admission/observation: Escalation of care including admission/observation considered Lab Data [facility] Lab Attestation statement: I reviewed the patient's lab results. 07/02/24 09:45 07/02/24 09:45 Labs: Lab Results 07/02/24 Range/Units 09:45 WBC 12.6 H (4.8-10.8) X10*3/uL RBC 4.14 L D (4.60-5.80) X10*6/uL Hgb 11.6 L D (14.0-18.0) g/dl Hct 35.6 L D (42.0-52.0) % MCV 86.0 (80.0-98.0) fL MCH 28.0 (27.0-33.0) pg MCHC 32.6 (31.0-36.0) g/dl RDW 14.2 (11.0-16.0) % Plt Count 398 D (160-400) X10*3/uL MPV 8.7 L (9.4-12.4) fL Immature Gran % (Auto) 0.6 H (0.0-0.4) % Neut % (Auto) 76.9 H (45-73) % Lymph % (Auto) 10.9 L (20-40) % Osborne % (Auto) 9.0 (2-11) % Eos % (Auto) 1.9 (0-4) % Baso % (Auto) 0.7 (0-2) % Lymph # (Auto) 1.4 (1.2-4.9) X10*3/uL Osborne # (Auto) 1.1 (0.1-1.2) X10*3/uL Eos # (Auto) 0.2 (0.0-0.4) X10*3/uL Baso # (Auto) 0.1 (0.0-0.2) X10*3/uL Abs Immat Gran (auto) 0.07 H (0.00-0.03) X10*3/uL Absolute Neuts (auto) 9.7 H (2.0-8.3) x10*3/uL Absolute Nucleated RBC 0.000 (0.0-0.012) X10*3/uL Nucleated RBC % (auto) 0.0 (0.0-0.2) /100WBC Sodium 138 (135-145) mmol/L Potassium 4.0 (3.3-5.1) mmol/L Chloride 106 (96-108) mmol/L Carbon Dioxide 24 (22-29) mmol/L Anion Gap 12 (12-20) BUN 17 H (9-16) mg/dL Creatinine 1.39 (0.5-1.4) mg/dL Estim Creat Clear Calc 56.5 Estimated GFR 50 Random Glucose 202 H (60-115) mg/dL Calcium 10.0 D (8.4-10.2) mg/dL Total Bilirubin 0.5 (0.0-1.0) mg/dL AST 9 (5-37) U/L ALT 7 (0-40) U/L Alkaline Phosphatase 68 (39-117) U/L Total Protein 7.1 (6.5-8.0) g/dL Albumin 3.6 (3.5-5.0) g/dL Discharge Plan Discharge Clinical Impression: Adult failure to thrive Diarrhea Qualifiers: Diarrhea type: unspecified type Qualified Code(s): R19.7 - Diarrhea, unspecified Patient Disposition: Still a Patient Prescriptions: No Action metoprolol tartrate 50 mg tablet 50 mg PO BID 90 Days Qty: 180 3RF Eliquis 5 mg tablet 5 mg PO BID Qty: 180 3RF bethanechol chloride 25 mg tablet 25 mg PO BID 90 Days Qty: 180 1RF bethanechol chloride 25 mg tablet 25 mg PO BID aspirin 81 mg Capsule 81 mg PO DAILY Santyl 250 unit/gram Ointment 1 appl topical DAILY Qty: 15 0RF Protocol: Apply to: Apply to: rt leg wound cyanocobalamin (vitamin B-12) 500 mcg Tablet 500 mcg PO DAILY tamsulosin 0.4 mg capsule 0.4 mg PO BEDTIME cholecalciferol (vitamin D3) 25 mcg (1,000 unit) Tablet 25 mcg PO DAILY (DME) lancets 28 gauge misc See Rx Instructions topical DAILY Qty: 100 Rx Instructions: As directed finasteride 5 mg tablet 5 mg PO BEDTIME 90 Days Qty: 90 1RF Print Language: [place]se
[2024-07-02] MEDS: 0.9 % Sodium Chloride 1,000 ML 999 ML IVCONT (09:47)
[2024-07-02 09:52] LABS: MANUAL DIFF FLAG NO
[2024-07-02 09:53] LABS: Basophils Absolute Auto 0.1 X10*3/uL (0.0-0.2); Basophils Percent Auto 0.7 % (0-2); Eosinophils Absolute Auto 0.2 X10*3/uL (0.0-0.4); Eosinophils Percent Auto 1.9 % (0-4); Hematocrit 35.6 % (42.0-52.0); Hemoglobin 11.6 g/dl (14.0-18.0); Imm Gran Abs Auto 0.07 X10*3/uL (0.00-0.03); Imm Gran Pct Auto 0.6 % (0.0-0.4); Lymphocytes Absolute Auto 1.4 X10*3/uL (1.2-4.9); Lymphocytes Percent Auto 10.9 % (20-40); Mean Corpuscular HGB Conc 32.6 g/dl (31.0-36.0); Mean Platelet Volume 8.7 fL (9.4-12.4); Monocytes Absolute Auto 1.1 X10*3/uL (0.1-1.2); Neutrophils Absolute Auto 9.7 x10*3/uL (2.0-8.3); Neutrophils Percent Auto 76.9 % (45-73); Platelet Count 398 X10*3/uL (160-400); Red Blood Count 4.14 X10*6/uL (4.60-5.80); Red Cell Distribution Width 14.2 % (11.0-16.0); White Blood Count 12.6 X10*3/uL (4.8-10.8)
[2024-07-02 10:07] LABS: Alanine Aminotransferase 7 U/L (0-40); Albumin Level 3.6 g/dL (3.5-5.0); Alkaline Phosphatase 68 U/L (39-117); Anion Gap 12 (12-20); Aspartate Amino Transferase 9 U/L (5-37); Bilirubin Total 0.5 mg/dL (0.0-1.0); Blood Urea Nitrogen 17 mg/dL (9-16); Carbon Dioxide 24 mmol/L (22-29); Chloride 106 mmol/L (96-108); Creatinine Clr Calc Pharmacy 56.5; Estimated Glomerular Filt Rate 50; Glucose Random 202 mg/dL (60-115); Sodium 138 mmol/L (135-145); Total Protein 7.1 g/dL (6.5-8.0)
--- NOTE | 2024-07-02 12:16 | PC.NURSE ---
PT at bedside for eval
--- NOTE | 2024-07-02 12:36 | PC.NURSE ---
patient ambulated with walker with PT with steady gait. placed back on stretcher, states he has not needed to have a bowel movement since he has been here. all safety maintained. currently resting comfortably on ED stretcher
--- NOTE | 2024-07-02 13:30 | PC.NURSE ---
patient resting comfortably on stretcher at this time, not offering any complaints provided with ice chips per request. awaiting case management eval
--- NOTE | 2024-07-02 13:46 | PC.NURSE ---
case management at bedside for eval at this time
--- NOTE | 2024-07-02 14:04 | MHC.CM.PN ---
CM RECEIVED ED CONSULT. CM MET WITH PT AT BEDSIDE, PT LIVES WITH BROTHER BUT IS STRUGGLING BECAUSE OF THE LOOSE STOOLS AND INCONTINENCE. HIS BROTHER IS UNABLE TO ASSIST HIM WITH PERSONAL CARE. PER P.T. , NO INDICATION OF NEED FOR P.T. SERVICES. PT ADMITS TO NEEDING MORE ASSIST AT HOME AND MAY NEED A HIGHER LEVEL OF CARE. PT DOES NOT FEEL ABLE TO GO HOME DUE TO HIS CONTINUED LOOSE STOOLS AND INCONTINENCE. PROVIDER UPDATED AND PT WILL NEED TO SPEAK WITH A FINANCIAL COUNSELOR REGARDING LTC/MH BENEFITS. CM WILL CONTINUE TO FOLLOW FOR PLAN. PT IS ACTIVE WITH [facility]. RETURN REFERRAL SENT.
--- NOTE | 2024-07-02 15:40 | PC.NURSE ---
Med list reviewed with patient
[2024-07-02 16:18] LABS: CDiff Gene PCR POSITIVE (Negative)
--- NOTE | 2024-07-02 16:45 | PC.NURSE ---
upon arrival to overflow unit bed 6 - carmichael bag has minimal amount of bloody drainage in it. groin area appears red/raw. plan to apply barrier cream at this time.
[2024-07-02 16:57] LABS: Glucose, Whole Blood 175 mg/dL (60-115)
[2024-07-02 17:20] LABS: CDiff Toxin Positive (Negative)
[2024-07-02 17:21] LABS: CDIFF Internal ctrl Dots and bkg OK (V)
[2024-07-02] MEDS: Lactated Ringers 1,000 ML 125 ML IVCONT (18:07)
[2024-07-02] MEDS: vancomycin HCL 125 MG CAPSULE PO ×2 (18:07→23:34)
--- NOTE | 2024-07-02 18:14 | PC.NURSE ---
MD Meredith at bedside to evaluate pt
--- NOTE | 2024-07-02 18:16 | PM.IMHP ---
History of Present Illness Date of Service: 07/02/24 Chief Complaint: diarrhea, hematuria, weakness 74M PMH cdif colitis, bph with chronic carmichael, pafib on eliquis, PVD, CKD III, presented with diarrhea. patient had been admitted to [facility] 06/07/24 - 06/11/24 for cdif colitis, treated with course of vancomycin and discharged to SNF. he has since completed course. he had some improvement in diarrhea, but states never fully went away and worsened after finishing vancomycin. patient was discharged from SNF and at home reports feeling weak, inability to get to toilet on time, so came to ED. in ED initially placed on ED observation, cdif pcr and toxin came back positive, patient then noted to have hematuria in chronic carmichael. he denies chest pain, fever, chills, abdominal pain, sob. Review of Systems Review of Systems: Yes all other systems are reviewed and are negative [facility] Medical History Bladder outlet obstruction Psoriasis Sepsis Elevated cholesterol Anemia BPH (benign prostatic hyperplasia) Diabetes Vitamin D deficiency Neuropathy HTN (hypertension) Chronic a-fib Amputation of great toe Osteomyelitis PVD (peripheral vascular disease) Amputation of toe of left foot Pre-diabetes History of neuropathy Arrhythmia Osteomyelitis of second toe of left foot Ulcer of left second toe Amputated toe of right foot History of heart valve abnormality Family History Mother CAD (coronary artery disease) Surgical History History of amputation of toe Status post amputation of toe Hx of amputation Status post ORIF of fracture of ankle Social History Household Members: Family Housing: House Are you a primary respiratory care program director to a significant other at home: No Do you presently have visiting nurse or other home services: Yes (home comfort services [facility]) Alcohol intake: never Comment: scheduled med Patient Tobacco Use Status: Never used Tobacco Smoked in Last 30 Days: No Second Hand Smoke Exposure: No Use of substances other than those prescribed or required for medical reasons: No Advance Directives: No Advance Directives Information Provided: Yes Advance Directives Date on File: 08/07/20 Do you have a plan to hurt others: No Plan service: No Current occupational status: retired Meds Allergies Allergy/AdvReac Type Severity Reaction Status Date / Time penicillin V Allergy Intermediate rash Verified 07/02/24 09:08 amoxicillin Allergy Unknown Verified 07/02/24 09:08 Erythromycin Allergy Intermediate diarrhea Uncoded 07/02/24 09:08 Active Medications: Current Medications Collagenase (Collagenase Clostridium Hist. 30 Gm Tube) 1 appl TOPICAL DAILY CODY; Protocol Cyanocobalamin (Cyanocobalamin (Vitamin B-12) 500 Mcg Tablet) 500 mcg PO DAILY CODY Finasteride (Finasteride 5 Mg Tablet) 5 mg PO BEDTIME CODY Lactated Ringer's (Lr) 1,000 mls @ 125 mls/hr IVCONT .Q8H CODY Last Admin: 07/02/24 18:07 Dose: 125 mls/hr Metoprolol Tartrate (Metoprolol Tartrate 50 Mg Tablet) 50 mg PO BID CODY; Protocol Tamsulosin HCl (Tamsulosin Hcl 0.4 Mg Capsule) 0.4 mg PO BEDTIME CODY Vancomycin HCl (Vancomycin Hcl 125 Mg Capsule) 125 mg PO Q6H CODY Vitamin D (Cholecalciferol (Vitamin D3) 25 Mcg Tablet) 25 mcg PO DAILY [facility] Home Medications ?Medication ?Instructions ?Recorded ?Confirmed ?Last Taken ?Type lancets 28 gauge #100 ea 03/14/21 12/08/23 Unknown History cholecalciferol (vitamin D3) 25 25 mcg PO DAILY 03/04/24 07/02/24 07/02/24 History mcg (1,000 unit) tablet cyanocobalamin (vitamin B-12) 500 500 mcg PO DAILY 03/04/24 07/02/24 07/02/24 History mcg tablet tamsulosin 0.4 mg capsule 0.4 mg PO BEDTIME 03/04/24 07/02/24 07/01/24 History bethanechol chloride 25 mg tablet 25 mg PO BID 05/21/24 07/02/24 07/02/24 History aspirin 81 mg capsule 81 mg PO DAILY 06/07/24 07/02/24 07/02/24 History Physical Exam Vital Signs and Narrative: Vital Signs: Last Vital Signs Temp 98.4 F 07/02/24 16:00 Pulse 85 07/02/24 16:00 Resp 17 07/02/24 16:00 BP 149/71 H 07/02/24 16:00 Pulse Ox 95 07/02/24 16:00 O2 Del Method Room Air 07/02/24 16:00 BMI result Body Mass Index 25.0 General: AO X 3, no acute distress Resp: CTA bilateral, no accessory muscles used CVS: S1,S2,RRR GI: soft, non tender, non distended Neuro: motor grossly intact, alert Psych: appropriate affect, appropriate insight resting tremor blood in carmichael Results Labs 07/02/24 09:45 07/02/24 09:45 Labs: Laboratory Results - last 24 hr 07/02/24 07/02/24 07/02/24 09:45 15:15 16:52 MCV 86.0 MCH 28.0 MCHC 32.6 RDW 14.2 Plt Count 398 D MPV 8.7 L Immature Gran % (Auto) 0.6 H Neut % (Auto) 76.9 H Lymph % (Auto) 10.9 L King % (Auto) 9.0 Eos % (Auto) 1.9 Baso % (Auto) 0.7 Lymph # (Auto) 1.4 King # (Auto) 1.1 Eos # (Auto) 0.2 Baso # (Auto) 0.1 Abs Immat Gran (auto) 0.07 H Absolute Neuts (auto) 9.7 H Absolute Nucleated RBC 0.000 Nucleated RBC % (auto) 0.0 Anion Gap 12 Estim Creat Clear Calc 56.5 Estimated GFR 50 POC Glucose 175 H Random Glucose 202 H Calcium 10.0 D Total Bilirubin 0.5 AST 9 ALT 7 Alkaline Phosphatase 68 Total Protein 7.1 Albumin 3.6 C. difficile Tox B Gene POSITIVE A* C. difficile Toxin A&B Positive A* C. difficile Interpret SEE NOTE Assessment and Plan (1) Diarrhea: Qualifiers: Diarrhea type: unspecified type Qualified Code(s): R19.7 - Diarrhea, unspecified Status: Acute Plan 74M PMH cdif colitis, bph with chronic carmichael, pafib on eliquis, PVD, CKD III, presented with diarrhea recurrent cdif colitis (3rd episode) restart vanco po likely requires taper and lifelong prophylaxis ID eval gross hematuria monitor cbc hold eliquis, asa check ct abd pafib metopolol, hold eliquis pvd hold asa CKD III at baseline (creatinine around 1.3) bph with chronic carmichael continue flomax, finasteride dvt prophylaxis - mechanical due to hematuria full code patient with severe diarrhea due to cdif and gross hemautria, likely will need atleast 2 midnights to obtain formed stools and resolve hematuria, therefore, expected to require atleast 2 midnights inpatient Quality Stroke Does the patient have a stroke diagnosis?: No VTE Prior VTE?: No VTE Risk Level:: Medical - moderate - high VTE Device Contraindication: N/A - Device Ordered VTE Drug Contraindication: Treatment Not Indicated
--- NOTE | 2024-07-02 18:30 | PHA.MEDREC ---
Addendum entered by Aniket Menezes RPh 07/02/24 18:37: Med rec was reviewed by [facility]. Original Note: Pharmacy Consult ? Medication Reconciliation Pharmacy has completed the medication reconciliation. Reviewed med rec done by nursing.
--- NOTE | 2024-07-02 19:14 | PC.NURSE ---
this rn assumed care of pt, pt resting in stretcher, no acute distress noted. pt noted to have bright red blood in carmichael bag at this time, denies any urinary symptoms.
[2024-07-02] MEDS: Acetaminophen 325 MG TABLET 650 MG PO (19:30)
--- NOTE | 2024-07-02 19:37 | PC.NURSE ---
pt noted to be tachy 130s-140s upon retrieving vitals, aware at this time, steel die engraver Tess aware of pt condition. orders as follows.
--- NOTE | 2024-07-02 19:50 | PC.NURSE ---
pt moved to main ED at this time due to change in condition.
[2024-07-02] MEDS: Metoprolol Tartrate 5 MG/5 ML VIAL IVPUSH (19:59)
[2024-07-02] MEDS: Metoprolol Tartrate 50 MG TABLET PO (20:01)
[2024-07-02] MEDS: Tamsulosin HCL 0.4 MG CAPSULE PO (20:01)
--- NOTE | 2024-07-02 20:05 | PC.NURSE ---
pt brought over to ED bed 22 from overflow unit d/t HR being > 150 in afib RVR. ekg done on arrival to ED, 5mg iv lopressor given and bedtime dose of metoprolol po. rectal temp 101.7, tylenol administered by previous RN at 19:30. pt is on athletic monitor in no apparent distress denying chest pains or sob. per MD anderson orders being changed to med tele.
[2024-07-02] MEDS: Lactated Ringers 500 ML IV (20:12)
[2024-07-02] MEDS: metroNIDAZOLE/NS 500 MG/100 ML PIGGYBACK 100 MG IV (20:15)
--- NOTE | 2024-07-02 20:19 | PC.NURSE ---
pt meeting sepsis criteria for high HR and fever along with c diff infection, MD anderson ordered bolus of 500cc LR and iv flagyl. currently running. pt has no apparent distress no complaints or pain
--- NOTE | 2024-07-02 20:21 | PC.NURSE ---
pt going to CT scan prior to being brought upstairs
[2024-07-02] MEDS: Finasteride 5 MG TABLET PO (23:34)
[2024-07-03] VITALS (12 sets, daily range): BP systolic 91–148; BP diastolic 47–93; PULSE 90–126; RESP 16–20; TEMP 36.1–38.3; O2SAT 97–100
--- NOTE | 2024-07-03 01:40 | PM.EVENT ---
Event Note Date of Service: 07/03/24 Event Note: Patient went into AFib with RVR last night> rate controlled with IV metoprolol 5 mg. Time Spent With Patient Time: Total time managing care of this patient today ____ minutes.
[2024-07-03 03:57] LABS: Appearance Urine Turbid; Color Urine BROWN; Glucose Urine UA 100 mg/dL (Negative); Leukocyte Esterase Urine Moderate (2+) (Negative); Nitrite Urine Positive (Negative); UMIC TRIGGER UACC YES; Urine Blood Large (3+) (Negative); Urine Ketones Negative (Negative); Urine Protein 300 (3+) mg/dL (Neg-Trace)
[2024-07-03 03:59] LABS: Bacteria Urine 1+ (None Seen); Hyaline Casts Urine 0-2 /LPF (0-2); RBC Urine >20 /HPF (0-2); Squamous Epithelial Cell Urine 0-2 /HPF (0-2); UACC Culture Trigger YES; WBC Urine >50 /HPF (0-5)
[2024-07-03] MEDS: Acetaminophen 325 MG TABLET 650 MG PO ×3 (04:17→20:22)
[2024-07-03] MEDS: Lactated Ringers 1,000 ML 125 ML IVCONT ×3 (05:14→20:22)
[2024-07-03] MEDS: vancomycin HCL 125 MG CAPSULE PO ×4 (05:56→23:11)
[2024-07-03 07:22] LABS: Hematocrit 30.2 % (42.0-52.0); Mean Corpuscular HGB Conc 33.1 g/dl (31.0-36.0); Mean Corpuscular Hemoglobin 28.4 pg (27.0-33.0); Mean Corpuscular Volume 85.8 fL (80.0-98.0); Mean Platelet Volume 9.3 fL (9.4-12.4); Platelet Count 351 X10*3/uL (160-400); Red Blood Count 3.52 X10*6/uL (4.60-5.80); Red Cell Distribution Width 14.5 % (11.0-16.0)
[2024-07-03 07:26] LABS: Anion Gap 12 (12-20); Blood Urea Nitrogen 18 mg/dL (9-16); Carbon Dioxide 20 mmol/L (22-29); Chloride 108 mmol/L (96-108); Creatinine Clr Calc Pharmacy 49.1; Estimated Glomerular Filt Rate 43; Glucose Fasting 238 mg/dL (60-99); Potassium 3.4 mmol/L (3.3-5.1); Sodium 137 mmol/L (135-145)
[2024-07-03 07:50] LABS: Calcium 8.8 mg/dL (8.4-10.2); Magnesium 1.5 mg/dL (1.6-2.6)
--- NOTE | 2024-07-03 09:10 | P.PNIM_ITS ---
Subjective Subjective Date of Service: 07/03/24 Interval History: ongoing diarrhea, fever overnight Physical Exam 2 Vital Signs: Vital Signs: Last Vital Signs Temp 97 F 07/03/24 08:00 Pulse 98 07/03/24 08:00 Resp 16 07/03/24 08:00 BP 109/57 L 07/03/24 08:00 Pulse Ox 98 07/03/24 08:00 O2 Del Method Room Air 07/03/24 08:00 BMI result Body Mass Index 25.0 General: AO X 3, frail, ill appearing, incontinent with loose brown stool Resp: CTA bilateral, no accessory muscles used CVS: S1,S2,RRR GI: soft, non tender, non distended t Objective Data Active Medications Acetaminophen (Acetaminophen 325 Mg Tablet) 650 mg PO Q6H PRN PRN Reason: Pain, Mild (Pain Scale 1-3), fever or headache Last Admin: 07/03/24 04:17 Dose: 650 mg Documented By: KERRIE Calcium Carbonate (Calcium Carbonate 750 Mg Tab.Chew) 750 mg PO Q4H PRN PRN Reason: Heartburn Collagenase (Collagenase Clostridium Hist. 30 Gm Tube) 1 appl TOPICAL DAILY [facility]; Protocol Cyanocobalamin (Cyanocobalamin (Vitamin B-12) 500 Mcg Tablet) 500 mcg PO DAILY [facility] Finasteride (Finasteride 5 Mg Tablet) 5 mg PO BEDTIME [facility] Last Admin: 07/02/24 23:34 Dose: 5 mg Documented By: KERRIE Lactated Ringer's (Lr) 1,000 mls @ 125 mls/hr IVCONT .Q8H [facility] Last Admin: 07/03/24 05:14 Dose: 125 mls/hr Documented By: KERRIE Ceftriaxone Sodium 1 gm/ (Sodium Chloride) 50 mls @ 100 mls/hr IV Q24H [facility] Magnesium Hydroxide (Milk Of Magnesia 30 Ml Oral.Susp) 30 ml PO DAILY PRN PRN Reason: Constipation Melatonin (Melatonin 3 Mg Tablet) 6 mg PO BEDTIME PRN PRN Reason: Insomnia Metoprolol Tartrate (Metoprolol Tartrate 50 Mg Tablet) 50 mg PO BID [facility]; Protocol Last Admin: 07/02/24 20:01 Dose: 50 mg Documented By: DENISE Sodium Chloride (0.9 % Sodium Chloride Flush 3 Ml Syringe) 3 ml IVFLUSH QSHIFT [facility] Last Admin: 07/03/24 01:05 Dose: Not Given Documented By: KERRIE Non-Admin Reason: Previously Administered Tamsulosin HCl (Tamsulosin Hcl 0.4 Mg Capsule) 0.4 mg PO BEDTIME [facility] Last Admin: 07/02/24 20:01 Dose: 0.4 mg Documented By: DENISE Vancomycin HCl (Vancomycin Hcl 125 Mg Capsule) 125 mg PO Q6H [facility] Last Admin: 07/03/24 05:56 Dose: 125 mg Documented By: KERRIE Vitamin D (Cholecalciferol (Vitamin D3) 25 Mcg Tablet) 25 mcg PO DAILY [facility] Labs 07/03/24 06:19 07/03/24 06:19 Labs: Laboratory Results - last 24 hr 07/02/24 07/02/24 07/02/24 09:45 15:15 16:52 MCV 86.0 MCH 28.0 MCHC 32.6 RDW 14.2 Plt Count 398 D MPV 8.7 L Immature Gran % (Auto) 0.6 H Neut % (Auto) 76.9 H Lymph % (Auto) 10.9 L Jones % (Auto) 9.0 Eos % (Auto) 1.9 Baso % (Auto) 0.7 Lymph # (Auto) 1.4 Jones # (Auto) 1.1 Eos # (Auto) 0.2 Baso # (Auto) 0.1 Abs Immat Gran (auto) 0.07 H Absolute Neuts (auto) 9.7 H Absolute Nucleated RBC 0.000 Nucleated RBC % (auto) 0.0 Anion Gap 12 Estim Creat Clear Calc 56.5 Estimated GFR 50 POC Glucose 175 H Random Glucose 202 H Fasting Glucose Lactic Acid Calcium 10.0 D Magnesium Total Bilirubin 0.5 AST 9 ALT 7 Alkaline Phosphatase 68 Total Protein 7.1 Albumin 3.6 Urine Color Urine Appearance Urine pH Ur Specific [place] Urine Protein Urine Glucose (UA) Urine Ketones Urine Blood Urine Nitrite Ur Leukocyte Esterase Urine RBC Urine WBC Ur Squamous Epith Cells Urine Bacteria Hyaline Casts C. difficile Tox B Gene POSITIVE A* C. difficile Toxin A&B Positive A* C. difficile Interpret SEE NOTE 07/02/24 07/03/24 07/03/24 20:11 03:30 06:19 MCV 85.8 MCH 28.4 MCHC 33.1 RDW 14.5 Plt Count 351 MPV 9.3 L Immature Gran % (Auto) Neut % (Auto) Lymph % (Auto) Jones % (Auto) Eos % (Auto) Baso % (Auto) Lymph # (Auto) Jones # (Auto) Eos # (Auto) Baso # (Auto) Abs Immat Gran (auto) Absolute Neuts (auto) Absolute Nucleated RBC 0.000 Nucleated RBC % (auto) 0.0 Anion Gap 12 Estim Creat Clear Calc 49.1 Estimated GFR 43 POC Glucose Random Glucose Fasting Glucose 238 H Lactic Acid 2.0 Calcium 8.8 D Magnesium 1.5 L Total Bilirubin AST ALT Alkaline Phosphatase Total Protein Albumin Urine Color BROWN Urine Appearance Turbid Urine pH 6.0 Ur Specific [place] 1.020 Urine Protein 300 (3+) H Urine Glucose (UA) 100 H Urine Ketones Negative Urine Blood Large (3+) H Urine Nitrite Positive H Ur Leukocyte Esterase Moderate (2+) H Urine RBC >20 H Urine WBC >50 H Ur Squamous Epith Cells 0-2 Urine Bacteria 1+ Hyaline Casts 0-2 C. difficile Tox B Gene C. difficile Toxin A&B C. difficile Interpret Assessment and Plan (1) Diarrhea: Status: Acute Plan 74M PMH cdif colitis, bph with chronic carmichael, pafib on eliquis, PVD, CKD III, presented with diarrhea recurrent cdif colitis (3rd episode) with sepsis restarted vanco po 07/02/24 likely requires taper +/- lifelong prophylaxis ID eval gross hematuria with malpositioned chronic carmichael, uti, bilateral hydronephrosis monitor cbc holding eliquis, asa repplace carmichael rocephin, follow up cultures pafib metopolol, hold eliquis pvd hold asa gala on CKD III hypovolemic and obstructive ivf, replace carmichael, monitor bph with chronic carmichael continue flomax, finasteride dvt prophylaxis - mechanical due to hematuria full code reason for continued hospitalization:gala, fevers Quality Stroke Does the patient have a stroke diagnosis?: No VTE Prior VTE?: No VTE Risk Level:: Medical - moderate - high VTE Device Contraindication: N/A - Device Ordered VTE Drug Contraindication: Treatment Not Indicated
[2024-07-03] MEDS: Cyanocobalamin (Vitamin B-12) 500 MCG TABLET PO (09:31)
[2024-07-03] MEDS: Cholecalciferol (Vitamin D3) 25 MCG TABLET PO (09:31)
[2024-07-03] MEDS: Metoprolol Tartrate 50 MG TABLET PO ×2 (09:32→20:22)
[2024-07-03] MEDS: 0.9 % Sodium Chloride Flush 3 ML SYRINGE IVFLUSH (09:32)
[2024-07-03] MEDS: cefTRIAXone sodium 1 GM in 0.9 % Sodium Chloride 50 ML IV ×2 (09:33→20:22)
[2024-07-03] MEDS: Magnesium Sulfate/H2O 2 GM/50 ML PIGGYBACK IV (14:36)
[2024-07-03] MEDS: Zinc Oxide 20% Ointment 28.35 GM TUBE 1 APPL TOPICAL ×2 (16:45→23:11)
[2024-07-03] MEDS: Metoprolol Tartrate 5 MG/5 ML VIAL IVPUSH ×2 (17:57→21:15)
[2024-07-03] MEDS: Finasteride 5 MG TABLET PO (20:22)
[2024-07-03] MEDS: Tamsulosin HCL 0.4 MG CAPSULE PO (20:22)
[2024-07-03] MEDS: Lactated Ringers 1,000 ML 999 ML IV (23:11)
[2024-07-04] VITALS (30 sets, daily range): BP systolic 70–154; BP diastolic 33–64; PULSE 79–128; RESP 12–22; TEMP 36.1–37.2; O2SAT 92–100; BMI 23.1
--- NOTE | 2024-07-04 00:47 | PM.EVENT ---
Event Note Date of Service: 07/04/24 Event Note: RN reported hypotension. Patient feels lightheaded. Ordered 30 cc/kg fluid bolus. Also ordered lactic acid and blood culture. Is on antibiotics. Time Spent With Patient Time: Total time managing care of this patient today ____ minutes.
[2024-07-04] MEDS: LACTATED RINGERS 2520 ML IVCONT (01:00)
[2024-07-04 02:48] LABS: Lactic Acid 4.1 mmol/L (0.5-2.0)
--- NOTE | 2024-07-04 04:05 | P.PNCC_ITS ---
Critical Care Event Note Summary Date of Service: 07/04/24 Code activated: No Narrative: This case had a high probability of a clinically significant, sudden, or life threatening deterioration of this patient's condition which required my full and direct attention, intervention and personal management. Critical Care Time (minutes): 60 Comment: Clinical Precedent to this date: ?Patient is a 74-year-old male with underlying history of passing diff colitis x2 episode, BPH with chronic Davis, paroxysmal AFib who was on Eliquis, peripheral vascular disease, CKD stage 3, and bladder outlet obstruction, right foot toe amputation with left 2nd toe ulcer and osteomyelitis, neuropathy, hypertension, vitamin-D deficiency, diabetes, among others. Patient had been admitted by the hospitalist team on 07/01 due to his 3rd episode of C diff colitis treated with p.o. vancomycin and IV metronidazole.? His blood thinners have been as well as aspirin due to risk of b leeding and hematuria.? He was also found to have a urinary tract infection with E coli organisms which are sensitive to Rocephin which she is receiving Today pt around 01:00 patient progressively became more hypotensive despite of IV fluids.? Lactic acid is elevated, he has already received 30 mL/kilogram of IV fluids and his blood pressure is still around 70 systolic, it looks like the patient has a Gram-positive cocci Gram stain in 1 of his blood culture bottles for which she was not being treated even though in the past he had Staphylococcus bacteremia.? Given his decompensation he will need to be transferred to the ICU. Sepsis physical exam performed at 03:50 VS: ?70/42, 86, 18, 97% on room air, 97 degrees F General:? Alert not oriented, Somnolent, in a like position. Skin: ?Maculopapular rash on an erythematous base around groin, testicles and into the perineum area consistent with a candidal infection noted. Left great toe and 2nd toe have been amputated.? Right 2nd toe amputation.? Otherwise ?Intact, no lesions or rash HEENT:? Normocephalic, atraumatic, extraocular movements intact buccal mucosa dry Cardiac:? Clear S1-S2, no murmurs rubs or gallops. Pulmonary:? Decreased lung sounds bilaterally with coarse lung sounds at the bases. Abdomen:? Protuberant, positive bowel sounds in all 4 quadrants.? Soft, distended and hyper-resonant, nontender. ?Rectal tube in place with scant green fecal matter, Davis catheter with very thick sediment but no actual urine. Musculoskeletal:? Patient is in a like position Neurologic:? As above, no focal deficits. Vascular:? 2+ pulses upper and lower extremities distally. ?2nd capillary refill bilateral upper and lower extremities. SIGNIFICANT LABORATORY DATA: ?Lactic acid of 4.1; other labs reviewed, new set of laboratories will be obtained now REVIEW OF IMAGES: CT abdomen pelvis performed on 07/02/2024 IMPRESSION: Severe distention of the urinary bladder with circumferential wall thickening, gas, and perivesicular stranding resulting in mild upstream hydroureteronephrosis. Transurethral Davis catheter tip terminates within the membranous urethra. ASSESSMENT: 1. Acute septic versus hypovolemic shock (multifactorial in the setting of UTI/C diff colitis) 2. Reactive intermittent tachycardia 3. Infectious leukocytosis 4. Metabolic and lactic acidosis due to the above 5. BHUMI on CKD stage 3 vol depletion vs ATN 6. E coli Urinary tract infection 7. C diff colitis 8. Candidiasis of the groin and testicular area PLAN OF CARE: Patient will be transferred to the ICU, monitor vital signs, I and O's, has received 30 mL/kilos ready, we will give him albumin and start him on Levophed, he is on Rocephin which is covered in the E coli based on sensitivity, Flagyl intravenously and oral vancomycin, will broaden his antibiotics to vancomycin IV given that his positive culture is Gram-positive cocci however will cover him until more definite results are achieved, as this can be a contaminant as well..? We will recheck laboratories including lactic acid, magnesium, phosphorus, venous blood gas. ?We will order MRSA swab him from the nares and repeat blood cultures are already pending. ?Will discuss the case with Dr. Ann for possible repeat CT abdomen and pelvis in the morning throughout the possibility of underlying abscess on or around the bladder. We will start him on nystatin powder Will hold Proscar and Flomax. ?Replete electrolytes accordingly. ? GI PROPHYLAXIS: ?Will start him on IV PPI DVT PROPHYLAXIS: ?Pneumatic stockings only due to reported hematuria. ? Critical care time used for critical evaluation of this patient, diagnosis, treatment and coordination of care, review her records and documentation TOTAL CRITICAL CARE TIME? 60? MIN . discussion and coordination with consultants, completely separate from any procedures performed. Patient's care was discussed in detail with Dr. Ann is aware of all the above as well as the plan of care for this patient. Full progress note
[2024-07-04 04:24] LABS: Reflex Lactate? Lactic Acid Added
[2024-07-04] MEDS: Norepinephrine Bitartrate/D5W 8 MG/250 ML PLAST..BAG 7.88 MG IVCONT (04:35)
[2024-07-04] MEDS: Albumin Human 25 % 100 ML 133.33 ML IV ×2 (04:36→05:11)
--- NOTE | 2024-07-04 04:37 | PC.NURSE ---
Patient at beginning of shift noted to be diaphoretic and febrile easily arousable by name, confused and resting peacefully in bed with heart rate sustaining in the 130s-150s. Tylenol 650mg PO and scheduled metoprolol 50mg PO administered. MD notified and ordered metoprolol 5mg IVpush and administered. At 00:25 patient had manual blood pressure 70/40 MD notifed and ordered 1L bolus of LR and given. Patient still hypotensive, MD ordered 2,520mls/hr LR and given. New blood cultures and labs ordered and phlebotomy in to take them. BP retaken 70/42. MD notifed and patient transferred to ICU. Report given to ICU nurse.
[2024-07-04] MEDS: metroNIDAZOLE/NS 500 MG/100 ML PIGGYBACK 100 MG IV (04:45)
[2024-07-04] MEDS: vancomycin HCL 1,250 MG in 0.9 % Sodium Chloride 250 ML 166.67 MG IV (04:51)
[2024-07-04 04:57] LABS: VBG HCO3 9 mmol/L (22-26); VBG pCO2 14 mmHg; VBG pH 7.43 (7.32-7.43); VBG pO2 129 mmHg
[2024-07-04] MEDS: vancomycin HCL 125 MG CAPSULE PO (04:57)
[2024-07-04] MEDS: ondansetron HCL 4 MG/2 ML VIAL IVPUSH (04:58)
[2024-07-04 05:00] LABS: Basophils Absolute Auto 0.1 X10*3/uL (0.0-0.2); Basophils Percent Auto 0.6 % (0-2); Eosinophils Percent Auto 0.2 % (0-4); Hematocrit 28.3 % (42.0-52.0); Imm Gran Abs Auto 0.17 X10*3/uL (0.00-0.03); Lymphocytes Absolute Auto 0.3 X10*3/uL (1.2-4.9); Lymphocytes Percent Auto 1.9 % (20-40); MANUAL DIFF FLAG SCAN; Mean Corpuscular HGB Conc 31.8 g/dl (31.0-36.0); Mean Corpuscular Hemoglobin 28.3 pg (27.0-33.0); Mean Platelet Volume 9.6 fL (9.4-12.4); Monocytes Absolute Auto 0.2 X10*3/uL (0.1-1.2); Monocytes Percent Auto 1.4 % (2-11); Neutrophils Absolute Auto 16.4 x10*3/uL (2.0-8.3); Neutrophils Percent Auto 94.9 % (45-73); Platelet Count 252 X10*3/uL (160-400); Red Blood Count 3.18 X10*6/uL (4.60-5.80); Red Cell Distribution Width 14.6 % (11.0-16.0); SCAN SMEAR FLAG 1; White Blood Count 17.3 X10*3/uL (4.8-10.8)
[2024-07-04 05:00] LABS: Venous Blood Gas Refer to POC result
[2024-07-04 05:20] LABS: ~Lactic Acid-LAB USE ONLY 3.1 mmol/L (0.5-2.0)
[2024-07-04 05:22] LABS: Alanine Aminotransferase 13 U/L (0-40); Alkaline Phosphatase 57 U/L (39-117); Anion Gap 17 (12-20); Aspartate Amino Transferase 34 U/L (5-37); Bilirubin Total 0.5 mg/dL (0.0-1.0); Blood Urea Nitrogen 27 mg/dL (9-16); Calcium 8.2 mg/dL (8.4-10.2); Carbon Dioxide 15 mmol/L (22-29); Chloride 108 mmol/L (96-108); Creatinine Clr Calc Pharmacy 29.9; Estimated Glomerular Filt Rate 24; Glucose Random 204 mg/dL (60-115); Potassium 4.4 mmol/L (3.3-5.1); Sodium 136 mmol/L (135-145); Total Protein 5.6 g/dL (6.5-8.0)
[2024-07-04 05:28] LABS: Troponin-I High Sensitivity 22.2 ng/L (<3.5-35.0)
[2024-07-04 05:34] LABS: SLIDE REVIEW VERIFIED
[2024-07-04] MEDS: Sodium Bicarbonate 8.4% 50 MEQ/50 ML SYRINGE IVPUSH (05:38)
[2024-07-04 06:00] LABS: Magnesium 1.6 mg/dL (1.6-2.6); Phosphorus 4.1 mg/dL (2.7-4.5)
--- NOTE | 2024-07-04 06:12 | PC.NURSE ---
Pt transferred to ICU from [facility] at approx 0400. Upon initial assessment- pt A&Ox3/4, drowsy, makes needs known and follows simple commands. Afebrile. Afib on tele, HR 90s. Levophed ordered and titrated to maintain MAP > 65. Saturating 100% on room air, LS congested with non-productive cough. Pt with nausea/dry heaving, given PRN zofran per DEC. FMS in place, draining dark brown, liquid stool. Coude carmichael catheter in place, bag changed, UOP approx 10 mL/hr- PA aware, order to irrigate 60 mL with return of fluid. Albumin 100 mL IV x2, 1 amp of bicarb IVP given and bicarb gtt ordered per DEC. Skin overall intact- IAD/fungal to B/L groin/niyah area/buttocks; barrier cream applied, nystatin ordered per DEC. Pt aware of plan of care. Bed locked in lowest position, call aguilar in reach.
[2024-07-04 06:58] LABS: Reflex Lactate? 2 Y
--- NOTE | 2024-07-04 07:30 | PHA.PROG ---
Admission Date/Time: July 02, 2024 18:15 Indication: BACTEREMIA Weight in k kg Serum Creatinine - Last 168 Hours 07/02/24 07/03/24 07/04/24 09:45 06:19 04:50 Creatinine 1.39 1.60 H 2.61 H Estimated CrCl and GFR - Last 168 Hours 07/02/24 07/03/24 07/04/24 09:45 06:19 04:50 Estim Creat Clear Calc 56.5 49.1 29.9 Estimated GFR 50 43 24 Vancomycin Loading Dose: 1250 Current Vancomycin Dosing Regimen: 750 Q 24H Vancomycin Monitoring using AUC goal of 400 - 600 range with trough as surrogate marker: 491 Date and Time for next Vancomycin Level to be drawn: 07/06 @ 0600 Pharmacist Comments on Vancomycin Plan: Vancomycin dosing will take advantage of [employer] as a clinical decision support tool that uses Bayesian modeling to calculate individual patient's pharmacokinetic parameters and forecast the patient's drug concentration time course with the target goal AUC 24 range of 400 - 600 mg/L/hr.
[2024-07-04] MEDS: 0.9 % Sodium Chloride Flush 3 ML SYRINGE IVFLUSH ×2 (08:27→15:32)
[2024-07-04] MEDS: Sodium Bicarbonate 8.4% 150 MEQ in Dextrose 5 % 850 ML 100 MEQ IV ×2 (08:27→18:19)
[2024-07-04] MEDS: Cyanocobalamin (Vitamin B-12) 500 MCG TABLET PO (08:28)
[2024-07-04] MEDS: Cholecalciferol (Vitamin D3) 25 MCG TABLET PO (08:28)
[2024-07-04] MEDS: Zinc Oxide 20% Ointment 28.35 GM TUBE 1 APPL TOPICAL ×3 (08:29→20:52)
[2024-07-04 09:09] LABS: ~Lactic Acid-LAB USE ONLY 2.3 mmol/L (0.5-2.0)
[2024-07-04] MEDS: Lactated Ringers 500 ML IVCONT ×2 (09:10→18:20)
[2024-07-04] MEDS: Albumin Human 25 % 50 ML 100 ML IV (09:10)
[2024-07-04] MEDS: Calcium Gluconate/NaCl,Iso-Osm 1 GM/50 ML PLAST..BAG IV (09:10)
[2024-07-04] MEDS: Nystatin Powder 15 GM BOTTLE 1 APPL TOPICAL ×3 (09:41→20:52)
[2024-07-04] MEDS: Fidaxomicin 200 MG TABLET PO ×2 (09:41→20:49)
--- NOTE | 2024-07-04 10:27 | MHC.CLN ---
NUTRITION DIET=DIABETIC 1800 KCALS. SIGNIFICANT WEIGHT LOSS X 5 MONTHS -11%. RECURRENT C-DIFF (X3) DIARRHEA CONTRIBUTING TO SIGNIFICANT WEIGHT LOSS. NO PRESSURE INJURIES. PO APPEARS POOR, APPROX 25%. FOLLOW FOR INTAKE AND DIET TOLERANCE. SEE CLINICAL NUTRITION ASSESSMENT 07/04/24.
[2024-07-04] MEDS: cefTRIAXone sodium 1 GM in 0.9 % Sodium Chloride 50 ML IV ×2 (10:51→22:05)
[2024-07-04 19:07] LABS: Anion Gap 15 (12-20); Blood Urea Nitrogen 29 mg/dL (9-16); Calcium 8.2 mg/dL (8.4-10.2); Carbon Dioxide 22 mmol/L (22-29); Chloride 106 mmol/L (96-108); Creatinine Clr Calc Pharmacy 35.8; Estimated Glomerular Filt Rate 30; Glucose Random 198 mg/dL (60-115); Magnesium 1.5 mg/dL (1.6-2.6); Phosphorus 2.9 mg/dL (2.7-4.5); Potassium 3.1 mmol/L (3.3-5.1); Sodium 140 mmol/L (135-145)
[2024-07-04] MEDS: Potassium Chloride Packet 20 MEQ PACKET 40 MEQ PO (20:52)
[2024-07-04] MEDS: Magnesium Sulfate/H2O 2 GM/50 ML PIGGYBACK IV (20:52)
[2024-07-04] MEDS: Phentolamine Mesylate 5 MG VIAL SUBCUT (21:39)
[2024-07-04] MEDS: Norepinephrine Bitartrate/D5W 8 MG/250 ML PLAST..BAG 12.6 MG IVCONT (22:04)
--- NOTE | 2024-07-04 23:20 | HO.SKINPHOTO ---
Location: Right Forearm Category: Extravasation Upon initial assessment at 1999- site assessed with levophed infusing, pt denies any s/s but new blanching to surrounding tissue, and erythema noted directly at end of IV catheter. Attempted to aspirate medication from catheter and IV removed. [employer]ACHINE Nael notified, Phentolamine ordered and administered per DEC. Site outlined with surgical marker and warm packs applied.
[2024-07-05] VITALS (32 sets, daily range): BP systolic 77–144; BP diastolic 38–67; PULSE 96–138; RESP 12–19; TEMP 36–36.8; O2SAT 92–100; BMI 23.3
[2024-07-05] MEDS: 0.9 % Sodium Chloride Flush 3 ML SYRINGE IVFLUSH ×4 (00:38→20:12)
[2024-07-05] MEDS: Pantoprazole Sodium 40 MG/10 ML VIAL IVPUSH (05:09)
[2024-07-05 05:18] LABS: MANUAL DIFF FLAG NO
[2024-07-05 05:19] LABS: Basophils Percent Auto 0.3 % (0-2); Eosinophils Absolute Auto 0.3 X10*3/uL (0.0-0.4); Eosinophils Percent Auto 3.4 % (0-4); Hematocrit 28.6 % (42.0-52.0); Hemoglobin 9.1 g/dl (14.0-18.0); Imm Gran Abs Auto 0.04 X10*3/uL (0.00-0.03); Imm Gran Pct Auto 0.4 % (0.0-0.4); Lymphocytes Absolute Auto 0.5 X10*3/uL (1.2-4.9); Mean Corpuscular HGB Conc 31.8 g/dl (31.0-36.0); Mean Corpuscular Hemoglobin 27.9 pg (27.0-33.0); Mean Corpuscular Volume 87.7 fL (80.0-98.0); Mean Platelet Volume 9.6 fL (9.4-12.4); Monocytes Absolute Auto 0.3 X10*3/uL (0.1-1.2); Monocytes Percent Auto 2.8 % (2-11); Neutrophils Absolute Auto 8.1 x10*3/uL (2.0-8.3); Neutrophils Percent Auto 88.1 % (45-73); Platelet Count 247 X10*3/uL (160-400); Red Blood Count 3.26 X10*6/uL (4.60-5.80); Red Cell Distribution Width 14.6 % (11.0-16.0); White Blood Count 9.2 X10*3/uL (4.8-10.8)
[2024-07-05 05:34] LABS: Albumin Level 2.9 g/dL (3.5-5.0)
[2024-07-05 05:44] LABS: Anion Gap 15 (12-20); Blood Urea Nitrogen 28 mg/dL (9-16); Calcium 8.2 mg/dL (8.4-10.2); Carbon Dioxide 22 mmol/L (22-29); Chloride 108 mmol/L (96-108); Creatinine Clr Calc Pharmacy 38.9; Estimated Glomerular Filt Rate 33; Glucose Random 180 mg/dL (60-115); Phosphorus 2.5 mg/dL (2.7-4.5); Potassium 3.8 mmol/L (3.3-5.1); Sodium 141 mmol/L (135-145)
[2024-07-05] MEDS: Albumin Human 25 % 100 ML IV ×2 (07:06→08:31)
--- NOTE | 2024-07-05 07:39 | PM.CCPN ---
Subjective Subjective Date of Service: 07/05/24 Interval History: no significant overnight events Critical Care Time (minutes): 60 Physical Exam Vital Signs: Vital Signs: Last Vital Signs Temp 98.0 F 07/05/24 05:00 Pulse 113 H 07/05/24 07:00 Resp 17 07/05/24 07:00 BP 112/61 07/05/24 07:00 Pulse Ox 98 07/05/24 07:00 O2 Del Method Room Air 07/05/24 07:00 BMI result Body Mass Index 23.3 Const: General: cooperative, healthy appearing, comfortable, no acute distress, well developed, alert, awake and Physically active Orientation/consciousness: patient oriented x3 HEENT: Head: Yes normal to inspection, Yes normocephalic and Yes atraumatic Eyes: General: appearance normal, both eyes and all related structures Neck: Neck: Yes normal visual inspection, Yes full ROM, Yes no meningeal signs, Yes trachea midline and Yes supple Chest: Chest palpation & inspection: normal inspection of the chest Resp: Other: no appreciable rales, rhonchi, wheezing Effort & Inspection: normal respiratory effort Cardio: Rate: tachycardic Rhythm: abnormal rhythm GI: Inspection: Yes normal to inspection, No Abdominal wall edema and No distended Palpation (GI): Soft to palpation, not firm, nontender, no guarding and not rigid Skin: Other: appreciable purpura R upper extremity w/ some surrounding erythema; compartments soft throughout Neuro: General: patient oriented x3, tone normal, moves all extremities, no meningeal signs and no focal motor deficits Extrem: General: Yes normal to inspection, Yes full ROM and Yes capillary refill normal Psych: Appearance: grossly normal Objective Data Labs 07/05/24 05:02 07/05/24 05:02 Labs: Laboratory Results - last 24 hr 07/04/24 07/04/24 07/05/24 08:41 18:18 05:02 WBC 9.2 RBC 3.26 L Hgb 9.1 L Hct 28.6 L MCV 87.7 MCH 27.9 MCHC 31.8 RDW 14.6 Plt Count 247 MPV 9.6 Immature Gran % (Auto) 0.4 Neut % (Auto) 88.1 H Lymph % (Auto) 5.0 L [place] % (Auto) 2.8 Eos % (Auto) 3.4 Baso % (Auto) 0.3 Lymph # (Auto) 0.5 L [place] # (Auto) 0.3 Eos # (Auto) 0.3 Baso # (Auto) 0.0 Abs Immat Gran (auto) 0.04 H Absolute Neuts (auto) 8.1 Absolute Nucleated RBC 0.000 Nucleated RBC % (auto) 0.0 Sodium 140 141 Potassium 3.1 L D 3.8 D Chloride 106 108 Carbon Dioxide 22 22 Anion Gap 15 15 BUN 29 H 28 H Creatinine 2.18 H 2.02 H Estim Creat Clear Calc 35.8 38.9 Estimated GFR 30 33 Random Glucose 198 H 180 H Lactic Acid F/U @ 4Hr 2.3 H* Calcium 8.2 L 8.2 L Phosphorus 2.9 2.5 L Magnesium 1.5 L 2.0 Albumin 2.9 L Microbiology Microbiology Results: Microbiology 07/04/24 01:31 Blood - Venous Blood Culture - Preliminary No growth after 24 hours. 07/04/24 01:31 Blood - Venous Blood Culture - Preliminary No growth after 24 hours. 07/02/24 20:11 Blood - Venous Blood Culture - Preliminary No growth after 48 hours. 07/03/24 Unknown Urine Catheterized - Davis Catheter Urine Culture - Preliminary Culture in progress. 07/02/24 20:11 Blood - Venous Blood Culture - Preliminary Gram positive cocci Progress Note: A&P Assessment and plan (1) Clostridioides difficile infection: Status: Acute (2) Hypotension: Status: Acute Plan Patient is a 74 Y M with hypertension, diabetes mellitus, c/b paroxysmal atrial fibrillation on apixaban, peripheral artery disease s/p multiple toe amputations, BPH w/ chronic urinary catheter, and prior c. diff infections, initially presenting to emergency department on 07/01 w/ diarrhea, found to have c. diff infection and urinary tract infection, admitted to medicine; on 07/03 PM, patient developed hypotension N: no acute issues CV: hypotension, likely multifactorial, hypovolemia, distributive; norepinephrine gtt, wean as tolerated R: no acute issues GI: c. diff, on fidoxamicin PO : acute renal insufficiency, to monitor renal indices H: hematuria, improved; to resume home apixaban ID: c. diff, on fidoxamicin PO, gram positive bacteremia on vancomycin IV, likely urinary tract infection, on ceftriaxone E: diabetes mellitus, to monitor hypo-/hyper-glycemia P: no acute issues Quality Stroke Does the patient have a stroke diagnosis?: No VTE Prior VTE?: No VTE Risk Level:: Medical - moderate - high VTE Device Contraindication: N/A - Device Ordered VTE Drug Contraindication: N/A - Med Ordered
[2024-07-05 07:55] LABS: Glucose, Whole Blood 172 mg/dL (60-115)
[2024-07-05] MEDS: Fidaxomicin 200 MG TABLET PO ×2 (08:31→20:10)
[2024-07-05] MEDS: Apixaban 5 MG TABLET PO ×2 (08:31→20:09)
[2024-07-05] MEDS: Insulin Lispro 100 UNIT/ML 3 ML VIAL SUBCUT ×2 (08:33→17:31)
[2024-07-05] MEDS: Calcium Gluconate/NaCl,Iso-Osm 1 GM/50 ML PLAST..BAG IV (08:34)
[2024-07-05] MEDS: vancomycin HCL 750 MG in 0.9 % Sodium Chloride 250 ML 265 MG IV (08:34)
[2024-07-05] MEDS: Potassium Phosphate/NS 15 MMOL/250 ML PLAST..BAG 62.5 MMOL IV ×2 (08:34→14:16)
--- NOTE | 2024-07-05 08:36 | MHC.CLN ---
F/U PO INTAKE 25% X2 DIET RX: DIABETIC 1800 KCALS SIGNIFICANT WEIGHT LOSS X 5 MONTHS -11%. RECURRENT C-DIFF (X3) DIARRHEA CONTRIBUTING TO SIGNIFICANT WEIGHT LOSS. RECOMMEND INCREASING KCALS TO 2200DM R/T INCREASED NUTRITION RISK R/T POOR PO AND C-DIFF MONITOR PO INTAKE CLOSELY
[2024-07-05] MEDS: Metoprolol Tartrate 5 MG/5 ML VIAL IVPUSH (08:58)
[2024-07-05] MEDS: Lactated Ringers 500 ML IVCONT (09:00)
[2024-07-05] MEDS: Zinc Oxide 20% Ointment 28.35 GM TUBE 1 APPL TOPICAL ×3 (09:53→20:11)
[2024-07-05] MEDS: cefTRIAXone sodium 1 GM in 0.9 % Sodium Chloride 50 ML IV ×2 (10:20→21:20)
[2024-07-05] MEDS: Nystatin Powder 15 GM BOTTLE 1 APPL TOPICAL ×3 (10:30→20:11)
--- NOTE | 2024-07-05 13:12 | MHC.CM.PN ---
Pt continues care in ICU: remains on pressors for BP support, IV ATB for bacteremia/UTI. Pt from home w/existing VNA: had recently been to SNF - will make referrals in the event he needs to return. CM to follow.
[2024-07-05 14:12] LABS: Glucose, Whole Blood 198 mg/dL (60-115)
[2024-07-05 16:06] LABS: Glucose, Whole Blood 182 mg/dL (60-115)
[2024-07-05] MEDS: Metoprolol Tartrate 25 MG TABLET PO (18:05)
[2024-07-05 20:13] LABS: Glucose, Whole Blood 140 mg/dL (60-115)
[2024-07-06] VITALS (17 sets, daily range): BP systolic 94–125; BP diastolic 48–79; PULSE 86–116; RESP 15–20; TEMP 36–36.9; O2SAT 93–99; BMI 23.8
[2024-07-06] MEDS: Melatonin 3 MG TABLET PO (00:28)
[2024-07-06 05:39] LABS: MANUAL DIFF FLAG NO
[2024-07-06 05:41] LABS: Basophils Percent Auto 0.2 % (0-2); Eosinophils Absolute Auto 0.7 X10*3/uL (0.0-0.4); Hematocrit 26.9 % (42.0-52.0); Hemoglobin 8.6 g/dl (14.0-18.0); Imm Gran Abs Auto 0.04 X10*3/uL (0.00-0.03); Imm Gran Pct Auto 0.5 % (0.0-0.4); Lymphocytes Absolute Auto 0.8 X10*3/uL (1.2-4.9); Lymphocytes Percent Auto 9.4 % (20-40); Mean Corpuscular Hemoglobin 28.3 pg (27.0-33.0); Mean Corpuscular Volume 88.5 fL (80.0-98.0); Mean Platelet Volume 9.8 fL (9.4-12.4); Monocytes Absolute Auto 0.5 X10*3/uL (0.1-1.2); Monocytes Percent Auto 5.7 % (2-11); Neutrophils Absolute Auto 6.2 x10*3/uL (2.0-8.3); Neutrophils Percent Auto 75.2 % (45-73); Platelet Count 203 X10*3/uL (160-400); Red Blood Count 3.04 X10*6/uL (4.60-5.80); Red Cell Distribution Width 14.7 % (11.0-16.0); White Blood Count 8.2 X10*3/uL (4.8-10.8)
[2024-07-06 06:08] LABS: Anion Gap 16 (12-20); Blood Urea Nitrogen 28 mg/dL (9-16); Calcium 8.1 mg/dL (8.4-10.2); Carbon Dioxide 20 mmol/L (22-29); Chloride 109 mmol/L (96-108); Creatinine Clr Calc Pharmacy 46.5; Estimated Glomerular Filt Rate 40; Glucose Random 136 mg/dL (60-115); Magnesium 1.9 mg/dL (1.6-2.6); Phosphorus 2.9 mg/dL (2.7-4.5); Potassium 3.7 mmol/L (3.3-5.1); Sodium 141 mmol/L (135-145)
--- NOTE | 2024-07-06 07:46 | P.CDIM_ITS ---
PROVIDER RESPONSE TEXT: To clarify, the appropriate diagnosis supported by the clinical indicators: Acute QUERY TEXT: PHYSICIAN'S DOCUMENTATION REQUEST Date of Query: 07/05/2024 09:50 AM EDT Patient Name: Shashank Fregoso Admit Date: 07/02/2024 Dear Carline Ann MD, A review of the medical record indicates additional documentation may be needed. Please review below and update the documentation accordingly. Clinical Indicators: ICU progress note dated 07/04 - Metabolic and lactic acidosis due to the above. LA 4.1 Lactic acid is elevated, he has already received 30 ml/kilogram of IV fluids. Clarify which of the following accurately represents the acuity of the metabolic acidosis/lactic acid osis: Possible options might include: Acute Chronic Other (explain) Clinically unable to determine (explain) Thank you, Florencia Mccollum, CCS, CDIS Use of terms such as suspected, likely, concern for, or probable (associated with a specific diagnosi s that is being evaluated, monitored, or treated as if it exists) are acceptable and can be coded in the inpatient se tting, when documented at the time of discharge. Please use your independent medical judgment in providing your response. THIS QUERY IS PART OF THE PERMANENT MEDICAL RECORD
[2024-07-06 07:49] LABS: Glucose, Whole Blood 134 mg/dL (60-115)
--- NOTE | 2024-07-06 07:57 | P.PNCC_ITS ---
Subjective Subjective Date of Service: 07/06/24 Interval History: no significant overnight events Critical Care Time (minutes): 60 Physical Exam 2 Vital Signs: Vital Signs: Last Vital Signs Temp 97.2 F 07/06/24 00:00 Pulse 103 H 07/06/24 07:00 Resp 18 07/06/24 07:00 BP 117/56 L 07/06/24 07:00 Pulse Ox 97 07/06/24 07:00 O2 Del Method Room Air 07/06/24 07:00 BMI result Body Mass Index 23.8 Const: General: cooperative, healthy appearing, comfortable, no acute distress, well developed, alert, awake and Physically active O rientation/consciousness: patient oriented x3 HEENT: Head: Yes normal to inspection, Yes normocephalic and Yes atraumatic Eyes: General: appearance normal, both eyes and all related structures Neck: Neck: Yes normal visual inspection, Yes full ROM, Yes no meningeal signs, Yes trachea midline and Yes supple Chest: Chest palpation & inspection: normal inspection of the chest Resp: Other: no appreciable rales, rhonchi, wheezing Effort & Inspection: normal respiratory effort Cardio: Rate: regular rate Rhythm: abnormal rhythm GI: Inspection: Yes normal to inspection, No Abdominal wall edema and No distended Palpation (GI): Soft to palpation, not firm, nontender, no guarding and not rigid Skin: General skin exam: no rashes or lesions noted Neuro: General: patient oriented x3, tone normal, moves all extremities, no meningeal signs and no focal motor deficits Extrem: General: Yes normal to inspection, Yes full ROM and Yes capillary refill normal Psych: Appearance: grossly normal Objective Data Labs 07/06/24 05:03 07/06/24 05:03 Labs: Laboratory Results - last 24 hr 07/05/24 07/05/24 07/05/24 14:06 16:03 20:10 WBC RBC Hgb Hct MCV MCH MCHC RDW Plt Count MPV Immature Gran % (Auto) Neut % (Auto) Lymph % (Auto) Cameron % (Auto) Eos % (Auto) Baso % (Auto) Lymph # (Auto) Cameron # (Auto) Eos # (Auto) Baso # (Auto) Abs Immat Gran (auto) Absolute Neuts (auto) Absolute Nucleated RBC Nucleated RBC % (auto) Sodium Potassium Chloride Carbon Dioxide Anion Gap BUN Creatinine Estim Creat Clear Calc Estimated GFR POC Glucose 198 H 182 H 140 H Random Glucose Calcium Phosphorus Magnesium Albumin 07/06/24 07/06/24 05:03 07:45 WBC 8.2 RBC 3.04 L Hgb 8.6 L Hct 26.9 L MCV 88.5 MCH 28.3 MCHC 32.0 RDW 14.7 Plt Count 203 MPV 9.8 Immature Gran % (Auto) 0.5 H Neut % (Auto) 75.2 H Lymph % (Auto) 9.4 L Cameron % (Auto) 5.7 Eos % (Auto) 9.0 H Baso % (Auto) 0.2 Lymph # (Auto) 0.8 L Cameron # (Auto) 0.5 Eos # (Auto) 0.7 H Baso # (Auto) 0.0 Abs Immat Gran (auto) 0.04 H Absolute Neuts (auto) 6.2 Absolute Nucleated RBC 0.000 Nucleated RBC % (auto) 0.0 Sodium 141 Potassium 3.7 Chloride 109 H Carbon Dioxide 20 L Anion Gap 16 BUN 28 H Creatinine 1.69 H Estim Creat Clear Calc 46.5 Estimated GFR 40 POC Glucose 134 H Random Glucose 136 H Calcium 8.1 L Phosphorus 2.9 Magnesium 1.9 Albumin 3.0 L Microbiology Microbiology Results: Microbiology 07/03/24 Unknown Urine Catheterized - Davis Catheter Urine Culture - Final Enterobacter cloacae complex Morganella morganii ssp atiya 07/04/24 01:31 Blood - Venous Blood Culture - Preliminary No growth after 48 hours. 07/04/24 01:31 Blood - Venous Blood Culture - Preliminary No growth after 48 hours. 07/02/24 20:11 Blood - Venous Blood Culture - Final Coag negative Staphylococcus 07/02/24 20:11 Blood - Venous Blood Culture - Preliminary No growth after 48 hours. Progress Note: A&P Assessment and plan (1) Hypotension: Status: Acute (2) Clostridioides difficile infection: Status: Acute (3) PAF (paroxysmal atrial fibrillation): Status: Acute Plan Patient is a 74 Y M with hypertension, diabetes mellitus, c/b paroxysmal atrial fibrillation on apixaban, peripheral artery disease s/p multiple toe amputations, BPH w/ chronic urinary catheter, and prior c. diff infections, initially presenting to emergency department on 07/01 w/ diarrhea, found to have c. diff infection and urinary tract infection, admitted to medicine; on 07/03 PM, patient developed hypotension N: no acute issues CV: hypotension, likely multifactorial, hypovolemia, distributive, resolved R: no acute issues GI: c. diff, on fidoxamicin PO : acute renal insufficiency, to monitor renal indices H: hematuria, improved; to resume home apixaban ID: c. diff, on fidoxamicin PO, urinary tract infection, on ceftriaxone E: diabetes mellitus, to monitor hypo-/hyper-glycemia P: no acute issues Quality Stroke Does the patient have a stroke diagnosis?: No VTE Prior VTE?: No VTE Risk Level:: Medical - moderate - high VTE Device Contraindication: N/A - Device Ordered VTE Drug Contraindication: N/A - Med Ordered
[2024-07-06] MEDS: 0.9 % Sodium Chloride Flush 3 ML SYRINGE IVFLUSH (08:26)
[2024-07-06] MEDS: Sodium Bicarbonate 8.4% 50 MEQ/50 ML SYRINGE IVPUSH (08:28)
[2024-07-06] MEDS: Albumin Human 25 % 100 ML IV ×2 (08:28→10:31)
[2024-07-06] MEDS: Calcium Gluconate/NaCl,Iso-Osm 1 GM/50 ML PLAST..BAG IV (08:28)
[2024-07-06] MEDS: Fidaxomicin 200 MG TABLET PO ×2 (08:29→20:45)
[2024-07-06] MEDS: Metoprolol Tartrate 25 MG TABLET PO ×2 (08:30→20:45)
[2024-07-06] MEDS: Apixaban 5 MG TABLET PO ×2 (08:30→20:45)
[2024-07-06] MEDS: Nystatin Powder 15 GM BOTTLE 1 APPL TOPICAL ×2 (08:52→22:11)
[2024-07-06] MEDS: Zinc Oxide 20% Ointment 28.35 GM TUBE 1 APPL TOPICAL ×2 (08:52→22:11)
[2024-07-06] MEDS: Collagenase Clostridium Hist. 30 GM TUBE 1 APPL TOPICAL (08:52)
--- NOTE | 2024-07-06 09:22 | MHC.CLN ---
F/U PO INTAKE 50% X3 DIET RX: 2200DM-APPROPRIATE SIGNIFICANT WEIGHT LOSS X 5 MONTHS -11% RECURRENT C-DIFF (X3) DIARRHEA CONTRIBUTING TO SIGNIFICANT WEIGHT LOSS CONTINUE TO MONITOR PO INTAKE CLOSELY
--- NOTE | 2024-07-06 10:25 | P.CDIM_ITS ---
PROVIDER RESPONSE TEXT: To clarify, the appropriate diagnosis supported by the clinical indicators: Yes the UTI is related to / associated with / due to the chronic urinary catheter QUERY TEXT: PHYSICIAN'S DOCUMENTATION REQUEST Date of Query: 07/06/2024 08:42 AM EDT Patient Name: Shashank Fregoso Admit Date: 07/02/2024 Dear Carline Ann MD, A review of the medical record indicates additional documentation may be needed. Please review below and update the documentation accordingly. Clinical Indicators: Patient with chronic urinary catheter found to have UTI. ICU note 06/03 - Patient admitted 07/01 for C diff colitis, found to have a urinary tract infection with E coli organisms which are sensitive to Rocephin to which she was receiving. UA + Please clarify the relationship between these conditions if any: Yes the UTI is related to / associated with / due to the chronic urinary catheter No, the UTI is not related to / associated with / due to the chronic urinary catheter Other (explain) Clinically unable to determine (explain) Thank you, Florencia Mccollum, CCS, CDIS Use of terms such as suspected, likely, concern for, or probable (associated with a specific diagnosi s that is being evaluated, monitored, or treated as if it exists) are acceptable and can be coded in the inpatient se tting, when documented at the time of discharge. Please use your independent medical judgment in providing your response. THIS QUERY IS PART OF THE PERMANENT MEDICAL RECORD
[2024-07-06 11:10] LABS: Glucose, Whole Blood 186 mg/dL (60-115)
[2024-07-06] MEDS: Insulin Lispro 100 UNIT/ML 3 ML VIAL SUBCUT ×2 (11:36→22:09)
--- NOTE | 2024-07-06 12:00 | PC.NURSE ---
pt sent to [facility] with miriam carmichael and verbal order do not remove per Dr. Ann
--- NOTE | 2024-07-06 12:34 | W.PM.IDCN ---
History of Present Illness Data of Consult Service Date: 07/05/24 Requesting physician: Carline Ann Primary Care Provider: Ramin Medrano MD HPI Reason for consult: sepsis,Cdiff,bacteriruia He presents with fecal incontinence. He also has had some blood in urine. He has chronic Davis cath, CT shows some distention. I saw him 06/09 in hospital and was discharged on po Vancomycin for 10 days. He had positive Cdiff on 05/21,06/07 and 07/02. He has had hypotension and has been in ICU. He has urine enterobacter and morganella. Review of Systems Review of Systems: Yes all other systems are reviewed and are negative PMFSH Past Medical History Medical History (Updated 07/06/24 @ 12:38 by Danisha Gomez MD) Bacteriuria Bladder outlet obstruction Psoriasis Sepsis Elevated cholesterol Anemia BPH (benign prostatic hyperplasia) Diabetes Vitamin D deficiency Neuropathy HTN (hypertension) Chronic a-fib Amputation of great toe Osteomyelitis PVD (peripheral vascular disease) Amputation of toe of left foot Pre-diabetes History of neuropathy Arrhythmia Osteomyelitis of second toe of left foot Ulcer of left second toe Amputated toe of right foot History of heart valve abnormality Family History Family History Mother CAD (coronary artery disease) Surgical History Surgical History History of amputation of toe Status post amputation of toe Hx of amputation Status post ORIF of fracture of ankle Social History Social History Household Members: Other Housing: [facility] Are you a primary medicare specialist to a significant other at home: No Do you presently have visiting nurse or other home services: Yes ([facility]) Alcohol intake: never Comment: scheduled med Patient Tobacco Use Status: Never used Tobacco Second Hand Smoke Exposure: No Advance Directives Date on File: 08/07/20 service: No Current occupational status: retired Meds Allergies Allergy/AdvReac Type Severity Reaction Status Date / Time penicillin V Allergy Intermediate rash Verified 07/02/24 09:08 amoxicillin Allergy Unknown Verified 07/02/24 09:08 Erythromycin Allergy Intermediate diarrhea Uncoded 07/02/24 09:08 Active Medications: Current Medications Acetaminophen (Acetaminophen 325 Mg Tablet) 650 mg PO Q6H PRN PRN Reason: Pain, Mild (Pain Scale 1-3), fever or headache Last Admin: 07/03/24 20:22 Dose: 650 mg Apixaban (Apixaban 5 Mg Tablet) 5 mg PO BID [facility] Last Admin: 07/06/24 08:30 Dose: 5 mg Collagenase (Collagenase Clostridium Hist. 30 Gm Tube) 1 appl TOPICAL DAILY [facility]; Protocol Last Admin: 07/06/24 08:52 Dose: 1 appl Fidaxomicin (Fidaxomicin 200 Mg Tablet) 200 mg PO Q12H [facility] Last Admin: 07/06/24 08:29 Dose: 200 mg Finasteride (Finasteride 5 Mg Tablet) 5 mg PO BEDTIME [facility] Last Admin: 07/03/24 20:22 Dose: 5 mg Glucose (Glucose Gel 15 Gm Gel..Gram.) 15 gm PO Q15M PRN; Protocol PRN Reason: per Hypoglycemia Standing Ord. Dextrose (D10) 250 mls @ 750 mls/hr IV Q15M PRN; Protocol PRN Reason: per Hypoglycemia Standing Ord. Meropenem 1 gm/ Sodium (Chloride) 100 mls @ 200 mls/hr IV Q12H [facility] Last Infusion: 07/06/24 10:37 Dose: Infused Insulin Human Lispro (Insulin Lispro 100 Unit/Ml 3 Ml Vial) 0 unit SUBCUT QIDACHS [facility]; Protocol Last Admin: 07/06/24 11:36 Dose: 2 unit Melatonin (Melatonin 3 Mg Tablet) 3 mg PO BEDTIME PRN PRN Reason: Sleep Last Admin: 07/06/24 00:28 Dose: 3 mg Metoprolol Tartrate (Metoprolol Tartrate 25 Mg Tablet) 25 mg PO BID [facility]; Protocol Last Admin: 07/06/24 08:30 Dose: 25 mg Nystatin (Nystatin Powder 15 Gm Bottle) 1 appl TOPICAL TID [facility]; Protocol Last Admin: 07/06/24 08:52 Dose: 1 appl Ondansetron HCl (Ondansetron Hcl 4 Mg/2 Ml Vial) 4 mg IVPUSH Q6H PRN PRN Reason: Nausea Last Admin: 07/04/24 04:58 Dose: 4 mg Sodium Chloride (0.9 % Sodium Chloride Flush 3 Ml Syringe) 3 ml IVFLUSH QSHIFT [facility] Last Admin: 07/06/24 08:26 Dose: 3 ml Tamsulosin HCl (Tamsulosin Hcl 0.4 Mg Capsule) 0.4 mg PO BEDTIME [facility] Last Admin: 07/03/24 20:22 Dose: 0.4 mg Zinc Oxide (Zinc Oxide 20% Ointment 28.35 Gm Tube) 1 appl TOPICAL TID [facility]; Protocol Last Admin: 07/06/24 08:52 Dose: 1 appl Home Medications ?Medication ?Instructions ?Recorded ?Confirmed ?Last Taken ?Type lancets 28 gauge #100 ea 03/14/21 12/08/23 Unknown History cholecalciferol (vitamin D3) 25 25 mcg PO DAILY 03/04/24 07/02/24 07/02/24 History mcg (1,000 unit) tablet cyanocobalamin (vitamin B-12) 500 500 mcg PO DAILY 03/04/24 07/02/24 07/02/24 History mcg tablet tamsulosin 0.4 mg capsule 0.4 mg PO BEDTIME 03/04/24 07/02/24 07/01/24 History bethanechol chloride 25 mg tablet 25 mg PO BID 05/21/24 07/02/24 07/02/24 History aspirin 81 mg capsule 81 mg PO DAILY 06/07/24 07/02/24 07/02/24 History Physical Exam Vital Signs: Vital Signs: Last Vital Signs Temp 98.5 F 07/06/24 08:00 Pulse 86 07/06/24 11:00 Resp 15 07/06/24 11:00 BP 109/48 L 07/06/24 11:00 Pulse Ox 99 07/06/24 11:00 O2 Del Method Room Air 07/06/24 11:00 BMI result Body Mass Index 23.8 Skin: Other: reddened skin back Results Labs 07/06/24 05:03 07/06/24 05:03 Labs: Short CBC 07/06/24 Range/Units 05:03 WBC 8.2 (4.8-10.8) X10*3/uL Hgb 8.6 L (14.0-18.0) g/dl Hct 26.9 L (42.0-52.0) % Plt Count 203 (160-400) X10*3/uL BMP 07/06/24 05:03 Sodium 141 Potassium 3.7 Chloride 109 H Carbon Dioxide 20 L BUN 28 H Creatinine 1.69 H Calcium 8.1 L Liver Function 07/06/24 Range/Units 05:03 Albumin 3.0 L (3.5-5.0) g/dL Microbiology Microbiology Results: Microbiology 07/03/24 Unknown Urine Catheterized - Davis Catheter Urine Culture - Final Enterobacter cloacae complex Morganella morganii ssp atiya 07/04/24 01:31 Blood - Venous Blood Culture - Preliminary No growth after 48 hours. 07/04/24 01:31 Blood - Venous Blood Culture - Preliminary No growth after 48 hours. 07/02/24 20:11 Blood - Venous Blood Culture - Final Coag negative Staphylococcus 07/02/24 20:11 Blood - Venous Blood Culture - Preliminary No growth after 48 hours. Assessment and Plan (1) Hypotension: Status: Acute (2) C. difficile diarrhea: Status: Acute (3) Sepsis: Status: Acute (4) Bacteriuria: Status: Acute Plan He has Cdiff. He is probably colonized with morganella and enterobacter as is not bacteremic,however had hematuria. Cdiff probably wont get better until off antibiotics. Would give no more than 7 d IV antibiotics, Merem appropriate for urine Would not continue Fidaxomicin as has had prior admission and didnt make much difference as it usually doesnt. Give po Vancomycin 125 mg qid for 10 days and then po taper 125 tid one week ,125 bid one week,125 daily one week,125 every other day for a week and then consistently 125 mg every ,,Thursday. Watch redness skin ? drug reaction or usual state
[2024-07-06 16:16] LABS: Glucose, Whole Blood 139 mg/dL (60-115)
[2024-07-06 20:38] LABS: Glucose, Whole Blood 152 mg/dL (60-115)
[2024-07-07] VITALS (8 sets, daily range): BP systolic 91–150; BP diastolic 55–71; PULSE 82–110; RESP 17–18; TEMP 36.3–36.8; O2SAT 93–98; BMI 23.8
[2024-07-07 07:33] LABS: MANUAL DIFF FLAG NO
[2024-07-07 07:56] LABS: Basophils Percent Auto 0.3 % (0-2); Eosinophils Absolute Auto 0.6 X10*3/uL (0.0-0.4); Hemoglobin 8.9 g/dl (14.0-18.0); Imm Gran Abs Auto 0.03 X10*3/uL (0.00-0.03); Imm Gran Pct Auto 0.5 % (0.0-0.4); Lymphocytes Absolute Auto 0.7 X10*3/uL (1.2-4.9); Lymphocytes Percent Auto 10.4 % (20-40); Mean Corpuscular HGB Conc 31.8 g/dl (31.0-36.0); Mean Corpuscular Hemoglobin 28.2 pg (27.0-33.0); Mean Corpuscular Volume 88.6 fL (80.0-98.0); Monocytes Absolute Auto 0.3 X10*3/uL (0.1-1.2); Monocytes Percent Auto 5.1 % (2-11); Neutrophils Absolute Auto 4.7 x10*3/uL (2.0-8.3); Neutrophils Percent Auto 74.7 % (45-73); Platelet Count 177 X10*3/uL (160-400); Red Blood Count 3.16 X10*6/uL (4.60-5.80); Red Cell Distribution Width 14.6 % (11.0-16.0); White Blood Count 6.2 X10*3/uL (4.8-10.8)
[2024-07-07 08:06] LABS: Anion Gap 13 (12-20); Blood Urea Nitrogen 27 mg/dL (9-16); Calcium 8.5 mg/dL (8.4-10.2); Carbon Dioxide 27 mmol/L (22-29); Chloride 107 mmol/L (96-108); Creatinine Clr Calc Pharmacy 49.1; Estimated Glomerular Filt Rate 43; Glucose Random 129 mg/dL (60-115); Magnesium 1.8 mg/dL (1.6-2.6); Phosphorus 2.5 mg/dL (2.7-4.5); Potassium 3.5 mmol/L (3.3-5.1); Sodium 143 mmol/L (135-145)
[2024-07-07 08:34] LABS: Glucose, Whole Blood 115 mg/dL (60-115)
[2024-07-07] MEDS: vancomycin HCL 125 MG CAPSULE PO ×3 (08:38→20:49)
[2024-07-07] MEDS: 0.9 % Sodium Chloride Flush 3 ML SYRINGE IVFLUSH ×2 (08:38)
[2024-07-07] MEDS: Apixaban 5 MG TABLET PO ×2 (08:38→21:08)
[2024-07-07] MEDS: Lactated Ringers 1,000 ML 999 ML IV (09:27)
[2024-07-07] MEDS: Zinc Oxide 20% Ointment 28.35 GM TUBE 1 APPL TOPICAL ×3 (09:30→21:04)
[2024-07-07] MEDS: Nystatin Powder 15 GM BOTTLE 1 APPL TOPICAL ×3 (09:31→21:06)
--- NOTE | 2024-07-07 10:25 | MHC.CM.PN ---
Per ROUNDS discussion, CDiff is improving but Patient needs a PT eval to assist with disposition and he is not yet medically cleared for dc. CM will follow.
[2024-07-07] MEDS: Lactated Ringers 1,000 ML 100 ML IVCONT ×2 (10:39→20:45)
[2024-07-07 11:57] LABS: Glucose, Whole Blood 165 mg/dL (60-115)
[2024-07-07] MEDS: Insulin Lispro 100 UNIT/ML 3 ML VIAL SUBCUT (12:13)
--- NOTE | 2024-07-07 14:54 | HO.PM.IMPN ---
Subjective Subjective Date of Service: 07/07/24 Interval History: seen and evaluated this morning 1 episode of diarrhea overnight denies fever or chills no other reported events Review of Systems Review of Systems: Yes all other systems are reviewed and are negative Physical Exam Vital Signs: Vital Signs: Last Vital Signs Temp 98.1 F 07/07/24 12:00 Pulse 110 H 07/07/24 12:00 Resp 18 07/07/24 12:00 BP 149/66 H 07/07/24 12:00 Pulse Ox 98 07/07/24 12:00 O2 Del Method Room Air 07/07/24 12:00 BMI result Body Mass Index 23.8 Const: Other: Constitutional : interactive, not in distress Cardiovascular : no JVP, no lower extremity edema Respiratory : bilateral chest movement, not in resp distress Gastrointestinal: soft, lax, Non tender Skin : Warm, Dry Neurological : Alert & oriented , No focal deficit Objective Data Active Medications Acetaminophen (Acetaminophen 325 Mg Tablet) 650 mg PO Q6H PRN PRN Reason: Pain, Mild (Pain Scale 1-3), fever or headache Last Admin: 07/03/24 20:22 Dose: 650 mg Documented By: SHAQ Apixaban (Apixaban 5 Mg Tablet) 5 mg PO BID [facility] Last Admin: 07/07/24 08:38 Dose: 5 mg Documented By: SARAH Collagenase (Collagenase Clostridium Hist. 30 Gm Tube) 1 appl TOPICAL DAILY [facility]; Protocol Last Admin: 07/07/24 09:32 Dose: Not Given Documented By: SARAH Non-Admin Reason: Med Not Available Finasteride (Finasteride 5 Mg Tablet) 5 mg PO BEDTIME [facility] Last Admin: 07/03/24 20:22 Dose: 5 mg Documented By: SHAQ Glucose (Glucose Gel 15 Gm Gel..Gram.) 15 gm PO Q15M PRN; Protocol PRN Reason: per Hypoglycemia Standing Ord. Dextrose (D10) 250 mls @ 750 mls/hr IV Q15M PRN; Protocol PRN Reason: per Hypoglycemia Standing Ord. Meropenem 1 gm/ Sodium (Chloride) 100 mls @ 200 mls/hr IV Q12H [facility] Last Infusion: 07/07/24 09:28 Dose: Infused Documented By: SARAH Lactated Ringer's (Lr) 1,000 mls @ 100 mls/hr IVCONT .Q10H [facility] Last Admin: 07/07/24 10:39 Dose: 100 mls/hr Documented By: SARAH Insulin Human Lispro (Insulin Lispro 100 Unit/Ml 3 Ml Vial) 0 unit SUBCUT QIDACHS [facility]; Protocol Last Admin: 07/07/24 12:13 Dose: 2 unit Documented By: SARAH Melatonin (Melatonin 3 Mg Tablet) 3 mg PO BEDTIME PRN PRN Reason: Sleep Last Admin: 07/06/24 00:28 Dose: 3 mg Documented By: PIPO Metoprolol Tartrate (Metoprolol Tartrate 25 Mg Tablet) 25 mg PO BID [facility]; Protocol Last Admin: 07/07/24 08:45 Dose: Not Given Documented By: SARAH Non-Admin Reason: Physician Held Med Nystatin (Nystatin Powder 15 Gm Bottle) 1 appl TOPICAL TID [facility]; Protocol Last Admin: 07/07/24 09:31 Dose: 1 appl Documented By: SARAH Ondansetron HCl (Ondansetron Hcl 4 Mg/2 Ml Vial) 4 mg IVPUSH Q6H PRN PRN Reason: Nausea Last Admin: 07/04/24 04:58 Dose: 4 mg Documented By: FELIZ Sodium Chloride (0.9 % Sodium Chloride Flush 3 Ml Syringe) 3 ml IVFLUSH QSHIFT [facility] Last Admin: 07/07/24 08:38 Dose: 3 ml Documented By: SARAH Tamsulosin HCl (Tamsulosin Hcl 0.4 Mg Capsule) 0.4 mg PO BEDTIME [facility] Last Admin: 07/03/24 20:22 Dose: 0.4 mg Documented By: SHAQ Vancomycin HCl (Vancomycin Hcl 125 Mg Capsule) 125 mg PO Q6H [facility] Last Admin: 07/07/24 08:38 Dose: 125 mg Documented By: SARAH Zinc Oxide (Zinc Oxide 20% Ointment 28.35 Gm Tube) 1 appl TOPICAL TID [facility]; Protocol Last Admin: 07/07/24 09:30 Dose: 1 appl Documented By: SARAH Labs 07/07/24 06:31 07/07/24 06:31 Labs: Laboratory Results - last 24 hr 07/06/24 07/06/24 07/07/24 16:13 20:34 06:31 MCV 88.6 MCH 28.2 MCHC 31.8 RDW 14.6 Plt Count 177 MPV 10.0 Immature Gran % (Auto) 0.5 H Neut % (Auto) 74.7 H Lymph % (Auto) 10.4 L Mcduffie % (Auto) 5.1 Eos % (Auto) 9.0 H Baso % (Auto) 0.3 Lymph # (Auto) 0.7 L Mcduff[place] # (Auto) 0.3 Eos # (Auto) 0.6 H Baso # (Auto) 0.0 Abs Immat Gran (auto) 0.03 Absolute Neuts (auto) 4.7 Absolute Nucleated RBC 0.000 Nucleated RBC % (auto) 0.0 Anion Gap 13 Estim Creat Clear Calc 49.1 Estimated GFR 43 POC Glucose 139 H 152 H Random Glucose 129 H Calcium 8.5 Phosphorus 2.5 L Magnesium 1.8 07/07/24 07/07/24 08:30 11:49 MCV MCH MCHC RDW Plt Count MPV Immature Gran % (Auto) Neut % (Auto) Lymph % (Auto) Mcduffie % (Auto) Eos % (Auto) Baso % (Auto) Lymph # (Auto) Mcduffie # (Auto) Eos # (Auto) Baso # (Auto) Abs Immat Gran (auto) Absolute Neuts (auto) Absolute Nucleated RBC Nucleated RBC % (auto) Anion Gap Estim Creat Clear Calc Estimated GFR POC Glucose 115 165 H Random Glucose Calcium Phosphorus Magnesium Assessment and Plan (1) Bacteriuria: Status: Acute (2) Hypotension: Status: Acute (3) Diarrhea: Status: Acute (4) Adult failure to thrive: Status: Acute (5) C. 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 Diarrhea resolving changed to Fidoxamicin PO in ICU then ID rec restarting Vancomycin and follow tapering dose upon discharge gross hematuria with malpositioned chronic carmichael, uti, bilateral hydronephrosis restart eliquis, hold asa carmichael replaced Change Abx to Meropenem 07/06/2024 ID rec 1 week of Abx then discharge on Vancomycin PO only pafib metopolol, hold eliquis pvd hold asa gala on CKD III 2/2 hypovolemic and obstructive improved with IVF monitor BMP bph with chronic carmichael continue flomax, finasteride dvt prophylaxis - mechanical due to hematuria full code reason for continued hospitalization:gala,hypotension and need for IV antibiotics for treatment of UTI per ID recommendations. Quality Stroke Does the patient have a stroke diagnosis?: No VTE Prior VTE?: No VTE Risk Level:: Medical - moderate - high VTE Device Contraindication: N/A - Device Ordered VTE Drug Contraindication: N/A - Med Ordered
[2024-07-07 15:52] LABS: Glucose, Whole Blood 136 mg/dL (60-115)
[2024-07-07] MEDS: Metoprolol Tartrate 25 MG TABLET PO ×2 (17:15→20:49)
[2024-07-07 20:46] LABS: Glucose, Whole Blood 150 mg/dL (60-115)
[2024-07-08] VITALS (8 sets, daily range): BP systolic 115–135; BP diastolic 54–87; PULSE 62–97; RESP 16–21; TEMP 36–36.9; O2SAT 96–100; BMI 24.6
[2024-07-08] MEDS: 0.9 % Sodium Chloride Flush 3 ML SYRINGE IVFLUSH ×3 (00:30→15:33)
[2024-07-08] MEDS: vancomycin HCL 125 MG CAPSULE PO ×4 (02:51→21:15)
[2024-07-08 06:21] LABS: MANUAL DIFF FLAG NO
[2024-07-08] MEDS: Lactated Ringers 1,000 ML 100 ML IVCONT (06:38)
[2024-07-08 06:43] LABS: Basophils Percent Auto 0.3 % (0-2); Eosinophils Absolute Auto 0.5 X10*3/uL (0.0-0.4); Eosinophils Percent Auto 7.5 % (0-4); Hemoglobin 8.7 g/dl (14.0-18.0); Imm Gran Abs Auto 0.05 X10*3/uL (0.00-0.03); Imm Gran Pct Auto 0.7 % (0.0-0.4); Lymphocytes Absolute Auto 1.1 X10*3/uL (1.2-4.9); Lymphocytes Percent Auto 15.7 % (20-40); Mean Corpuscular HGB Conc 31.1 g/dl (31.0-36.0); Mean Corpuscular Hemoglobin 27.4 pg (27.0-33.0); Mean Corpuscular Volume 88.3 fL (80.0-98.0); Mean Platelet Volume 9.8 fL (9.4-12.4); Monocytes Absolute Auto 0.5 X10*3/uL (0.1-1.2); Monocytes Percent Auto 7.2 % (2-11); Neutrophils Absolute Auto 4.6 x10*3/uL (2.0-8.3); Neutrophils Percent Auto 68.6 % (45-73); Platelet Count 185 X10*3/uL (160-400); Red Blood Count 3.17 X10*6/uL (4.60-5.80); Red Cell Distribution Width 14.6 % (11.0-16.0); White Blood Count 6.8 X10*3/uL (4.8-10.8)
[2024-07-08 06:47] LABS: Anion Gap 12 (12-20); Blood Urea Nitrogen 22 mg/dL (9-16); Calcium 8.6 mg/dL (8.4-10.2); Carbon Dioxide 27 mmol/L (22-29); Chloride 107 mmol/L (96-108); Estimated Glomerular Filt Rate 54; Glucose Random 139 mg/dL (60-115); Magnesium 1.7 mg/dL (1.6-2.6); Phosphorus 2.1 mg/dL (2.7-4.5); Potassium 3.8 mmol/L (3.3-5.1); Sodium 142 mmol/L (135-145)
--- NOTE | 2024-07-08 07:10 | P.CDIM_ITS ---
PROVIDER RESPONSE TEXT: To clarify, the appropriate diagnosis supported by the clinical indicators: Acute renal failure (BHUMI) QUERY TEXT: PHYSICIAN'S DOCUMENTATION REQUEST Date of Query: 07/07/2024 09:00 AM EDT Patient Name: Shashank Fregoso Admit Date: 07/02/2024 Dear Td Lackey MD, A review of the medical record indicates additional documentation may be needed. Please review below and update the documentation accordingly. Clinical Indicators: Progress note 07/03 within the Plan: BHUMI & CKD stage 3 ICU progress note 07/05 & 07/06 - Acute renal insufficiency Please clarify which of the following accurately represents the patient's renal status : Acute renal failure (BHUMI) Acute renal insufficiency Other (explain) Clinically unable to determine (explain) Thank you, Florencia Mccollum, CCS, CDIS Use of terms such as suspected, likely, concern for, or probable (associated with a specific diagnosi s that is being evaluated, monitored, or treated as if it exists) are acceptable and can be coded in the inpatient se tting, when documented at the time of discharge. Please use your independent medical judgment in providing your response. THIS QUERY IS PART OF THE PERMANENT MEDICAL RECORD
[2024-07-08 07:48] LABS: Glucose, Whole Blood 130 mg/dL (60-115)
[2024-07-08] MEDS: Metoprolol Tartrate 25 MG TABLET PO ×2 (09:37→21:15)
[2024-07-08] MEDS: Apixaban 5 MG TABLET PO ×2 (09:38→21:15)
[2024-07-08] MEDS: Zinc Oxide 20% Ointment 28.35 GM TUBE 1 APPL TOPICAL ×3 (09:39→21:30)
[2024-07-08] MEDS: Nystatin Powder 15 GM BOTTLE 1 APPL TOPICAL ×3 (09:39→21:17)
--- NOTE | 2024-07-08 10:21 | MHC.CLN ---
F/U PO INTAKE 50% AVG. DIET RX: 2200DM-APPROPRIATE CONTINUE TO MONITOR PO INTAKE CLOSELY
[2024-07-08] MEDS: Insulin Lispro 100 UNIT/ML 3 ML VIAL SUBCUT (12:14)
[2024-07-08 12:49] LABS: Glucose, Whole Blood 159 mg/dL (60-115)
--- NOTE | 2024-07-08 13:26 | MHC.CM.PN ---
EMR reviewed and per MD rounds, pt is not medically cleared for discharge due to management of diarrhea/c.diff infection requiring antibiotics, anticipating pt will be here until antibiotic coarse finishes on Thursday 07/12.
--- NOTE | 2024-07-08 14:21 | HO.PM.IMPN ---
Subjective Subjective Date of Service: 07/08/24 Interval History: seen and evaluated this morning 1 episode of diarrhea overnight denies fever or chills no other reported events Physical Exam Vital Signs: Vital Signs: Last Vital Signs Temp 97.6 F 07/08/24 11:43 Pulse 97 07/08/24 11:43 Resp 16 07/08/24 11:43 BP 115/72 07/08/24 11:43 Pulse Ox 99 07/08/24 11:43 O2 Del Method Room Air 07/08/24 11:43 BMI result Body Mass Index 24.6 Const: Other: Constitutional : interactive, not in distress Cardiovascular : no JVP, no lower extremity edema Respiratory : bilateral chest movement, not in resp distress Gastrointestinal: soft, lax, Non tender Skin : Warm, Dry Neurological : Alert & oriented , No focal deficit Objective Data Active Medications Acetaminophen (Acetaminophen 325 Mg Tablet) 650 mg PO Q6H PRN PRN Reason: Pain, Mild (Pain Scale 1-3), fever or headache Last Admin: 07/03/24 20:22 Dose: 650 mg Documented By: SHAQ Apixaban (Apixaban 5 Mg Tablet) 5 mg PO BID [facility] Last Admin: 07/08/24 09:38 Dose: 5 mg Documented By: DIANA Collagenase (Collagenase Clostridium Hist. 30 Gm Tube) 1 appl TOPICAL DAILY [facility]; Protocol Last Admin: 07/08/24 09:57 Dose: Not Given Documented By: DIANA Non-Admin Reason: med not aval Finasteride (Finasteride 5 Mg Tablet) 5 mg PO BEDTIME [facility] Last Admin: 07/03/24 20:22 Dose: 5 mg Documented By: SHAQ Glucose (Glucose Gel 15 Gm Gel..Gram.) 15 gm PO Q15M PRN; Protocol PRN Reason: per Hypoglycemia Standing Ord. Dextrose (D10) 250 mls @ 750 mls/hr IV Q15M PRN; Protocol PRN Reason: per Hypoglycemia Standing Ord. Meropenem 1 gm/ Sodium (Chloride) 100 mls @ 200 mls/hr IV Q12H [facility] Last Infusion: 07/08/24 10:40 Dose: Infused Documented By: DIANA Insulin Human Lispro (Insulin Lispro 100 Unit/Ml 3 Ml Vial) 0 unit SUBCUT QIDACHS [facility]; Protocol Last Admin: 07/08/24 12:14 Dose: 2 unit Documented By: DIANA Lactic Acid (Ammonium Lactate 12 % Lotion 226 Gm Bottle) 1 appl TOPICAL BID [facility]; Protocol Melatonin (Melatonin 3 Mg Tablet) 3 mg PO BEDTIME PRN PRN Reason: Sleep Last Admin: 07/06/24 00:28 Dose: 3 mg Documented By: PIPO Metoprolol Tartrate (Metoprolol Tartrate 25 Mg Tablet) 25 mg PO BID [facility]; Protocol Last Admin: 07/08/24 09:37 Dose: 25 mg Documented By: DIANA Nystatin (Nystatin Powder 15 Gm Bottle) 1 appl TOPICAL TID [facility]; Protocol Last Admin: 07/08/24 09:39 Dose: 1 appl Documented By: DIANA Ondansetron HCl (Ondansetron Hcl 4 Mg/2 Ml Vial) 4 mg IVPUSH Q6H PRN PRN Reason: Nausea Last Admin: 07/04/24 04:58 Dose: 4 mg Documented By: FELIZ Sodium Chloride (0.9 % Sodium Chloride Flush 3 Ml Syringe) [facility] Last Admin: 07/08/24 09:37 Dose: 3 ml Documented By: DIANA Tamsulosin HCl (Tamsulosin Hcl 0.4 Mg Capsule) 0.4 mg PO BEDTIME [facility] Last Admin: 07/03/24 20:22 Dose: 0.4 mg Documented By: SHAQ Vancomycin HCl (Vancomycin Hcl 125 Mg Capsule) 125 mg PO Q6H [facility] Last Admin: 07/08/24 09:38 Dose: 125 mg Documented By: DIANA Zinc Oxide (Zinc Oxide 20% Ointment 28.35 Gm Tube) 1 appl TOPICAL TID [facility]; Protocol Last Admin: 07/08/24 09:39 Dose: 1 appl Documented By: DIANA Labs 07/08/24 05:57 07/08/24 05:57 Labs: Laboratory Results - last 24 hr 07/07/24 07/07/24 07/08/24 15:40 20:40 05:57 MCV 88.3 MCH 27.4 MCHC 31.1 RDW 14.6 Plt Count 185 MPV 9.8 Immature Gran % (Auto) 0.7 H Neut % (Auto) 68.6 Lymph % (Auto) 15.7 L [place] % (Auto) 7.2 Eos % (Auto) 7.5 H Baso % (Auto) 0.3 Lymph # (Auto) 1.1 L [place] # (Auto) 0.5 Eos # (Auto) 0.5 H Baso # (Auto) 0.0 Abs Immat Gran (auto) 0.05 H Absolute Neuts (auto) 4.6 Absolute Nucleated RBC 0.000 Nucleated RBC % (auto) 0.0 Anion Gap 12 Estim Creat Clear Calc 60.0 Estimated GFR 54 POC Glucose 136 H 150 H Random Glucose 139 H Calcium 8.6 Phosphorus 2.1 L Magnesium 1.7 07/08/24 07/08/24 07:27 11:15 MCV MCH MCHC RDW Plt Count MPV Immature Gran % (Auto) Neut % (Auto) Lymph % (Auto) [place] % (Auto) Eos % (Auto) Baso % (Auto) Lymph # (Auto) [place] # (Auto) Eos # (Auto) Baso # (Auto) Abs Immat Gran (auto) Absolute Neuts (auto) Absolute Nucleated RBC Nucleated RBC % (auto) Anion Gap Estim Creat Clear Calc Estimated GFR POC Glucose 130 H 159 H Random Glucose Calcium Phosphorus Magnesium Microbiology Microbiology Results: Microbiology 07/02/24 20:11 Blood Culture - Final Blood - Venous No growth after 5 days. Assessment and Plan (1) Bacteriuria: Status: Acute (2) Hypotension: Status: Acute (3) Adult failure to thrive: Status: Acute (4) Diarrhea: Status: Acute (5) C. 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 Diarrhea resolving changed to Fidoxamicin PO in ICU then ID rec restarting Vancomycin and follow tapering dose upon discharge gross hematuria with malpositioned chronic carmichael, uti, bilateral hydronephrosis restart eliquis, hold asa carmichael replaced Change Abx to Meropenem 07/06/2024 ID rec 1 week of Abx then discharge on Vancomycin PO only Hypotension multifactorial requiring ICU admission, resolved restart BP meds as tolerated Keep on IVF today pafib metopolol, hold eliquis pvd hold asa gala on CKD III 2/2 hypovolemic and obstructive improved with IVF monitor BMP bph with chronic carmichael continue flomax, finasteride dvt prophylaxis - mechanical due to hematuria full code reason for continued hospitalization:gala,hypotension and need for IV antibiotics for treatment of UTI per ID recommendations. Quality Stroke Does the patient have a stroke diagnosis?: No VTE Prior VTE?: No VTE Risk Level:: Medical - moderate - high VTE Device Contraindication: N/A - Device Ordered VTE Drug Contraindication: N/A - Med Ordered
[2024-07-08 16:17] LABS: Glucose, Whole Blood 137 mg/dL (60-115)
[2024-07-08 20:40] LABS: Glucose, Whole Blood 139 mg/dL (60-115)
[2024-07-08] MEDS: Melatonin 3 MG TABLET PO (21:15)
[2024-07-08] MEDS: Ammonium Lactate 12 % Lotion 226 GM BOTTLE 1 APPL TOPICAL (23:15)
[2024-07-09] MEDS: 0.9 % Sodium Chloride Flush 3 ML SYRINGE IVFLUSH ×3 (00:33→15:27)
[2024-07-09 02:51] VITALS: BP 151/74; PULSE 92; RESP 21; TEMP 36.3; O2SAT 99
[2024-07-09] MEDS: vancomycin HCL 125 MG CAPSULE PO ×4 (03:23→21:43)
[2024-07-09 07:06] VITALS: BP 121/75; PULSE 87; RESP 20; TEMP 36; O2SAT 96
[2024-07-09 07:08] LABS: Glucose, Whole Blood 121 mg/dL (60-115)
--- NOTE | 2024-07-09 07:39 | PC.NURSE ---
Patient has an uneventful night. No complaints voiced during the shift. Vancomycin 125 po given as ordered. Davis catheter draining clear yellow urine. No signs of distress noted.
[2024-07-09] MEDS: Apixaban 5 MG TABLET PO ×2 (08:14→21:42)
[2024-07-09] MEDS: Metoprolol Tartrate 25 MG TABLET PO ×2 (08:14→21:42)
[2024-07-09] MEDS: Nystatin Powder 15 GM BOTTLE 1 APPL TOPICAL ×3 (08:16→21:45)
[2024-07-09] MEDS: Ammonium Lactate 12 % Lotion 226 GM BOTTLE 1 APPL TOPICAL ×2 (08:16→21:45)
[2024-07-09 08:25] LABS: Basophils Percent Auto 0.4 % (0-2); Eosinophils Absolute Auto 0.3 X10*3/uL (0.0-0.4); Eosinophils Percent Auto 4.3 % (0-4); Hematocrit 30.1 % (42.0-52.0); Hemoglobin 9.5 g/dl (14.0-18.0); Imm Gran Abs Auto 0.04 X10*3/uL (0.00-0.03); Imm Gran Pct Auto 0.6 % (0.0-0.4); Lymphocytes Absolute Auto 1.5 X10*3/uL (1.2-4.9); Lymphocytes Percent Auto 20.3 % (20-40); Mean Corpuscular HGB Conc 31.6 g/dl (31.0-36.0); Mean Corpuscular Hemoglobin 27.5 pg (27.0-33.0); Mean Platelet Volume 9.5 fL (9.4-12.4); Monocytes Absolute Auto 0.4 X10*3/uL (0.1-1.2); Monocytes Percent Auto 5.6 % (2-11); Neutrophils Absolute Auto 4.9 x10*3/uL (2.0-8.3); Neutrophils Percent Auto 68.8 % (45-73); Platelet Count 215 X10*3/uL (160-400); Red Blood Count 3.46 X10*6/uL (4.60-5.80); Red Cell Distribution Width 14.6 % (11.0-16.0); White Blood Count 7.1 X10*3/uL (4.8-10.8)
[2024-07-09] MEDS: Zinc Oxide 20% Ointment 28.35 GM TUBE 1 APPL TOPICAL ×3 (08:25→21:45)
[2024-07-09 08:31] LABS: Anion Gap 13 (12-20); Blood Urea Nitrogen 17 mg/dL (9-16); Calcium 8.7 mg/dL (8.4-10.2); Carbon Dioxide 25 mmol/L (22-29); Chloride 107 mmol/L (96-108); Creatinine Clr Calc Pharmacy 71.4; Estimated Glomerular Filt Rate > 60; Glucose Random 127 mg/dL (60-115); Magnesium 1.5 mg/dL (1.6-2.6); Phosphorus 2.3 mg/dL (2.7-4.5); Potassium 3.4 mmol/L (3.3-5.1); Sodium 142 mmol/L (135-145)
[2024-07-09 10:58] LABS: Glucose, Whole Blood 205 mg/dL (60-115)
[2024-07-09 10:59] VITALS: BP 119/60; PULSE 85; RESP 20; TEMP 36.4; O2SAT 98
--- NOTE | 2024-07-09 11:29 | P.PNIM_ITS ---
Subjective Subjective Date of Service: 07/09/24 Interval History: seen and evaluated this morning Denies any fever or chills having bowel movements but no abdominal pain no other reported events Review of Systems Review of Systems: Yes all other systems are reviewed and are negative Physical Exam 2 Vital Signs: Vital Signs: Last Vital Signs Temp 97.6 F 07/09/24 10:59 Pulse 85 07/09/24 10:59 Resp 20 07/09/24 10:59 BP 119/60 07/09/24 10:59 Pulse Ox 98 07/09/24 10:59 O2 Del Method Room Air 07/09/24 10:59 BMI result Body Mass Index 24.6 Const: Other: Constitutional : interactive, not in distress Cardiovascular : no JVP, no lower extremity edema Respiratory : bilateral chest movement, not in resp distress Gastrointestinal: soft, lax, Non tender Skin : Warm, Dry Neurological : Alert & oriented , No focal deficit Objective Data Active Medications Acetaminophen (Acetaminophen 325 Mg Tablet) 650 mg PO Q6H PRN PRN Reason: Pain, Mild (Pain Scale 1-3), fever or headache Last Admin: 07/03/24 20:22 Dose: 650 mg Documented By: SHAQ Apixaban (Apixaban 5 Mg Tablet) 5 mg PO BID [facility] Last Admin: 07/09/24 08:14 Dose: 5 mg Documented By: BRENDEN Collagenase (Collagenase Clostridium Hist. 30 Gm Tube) 1 appl TOPICAL DAILY [facility]; Protocol Last Admin: 07/08/24 09:57 Dose: Not Given Documented By: DIANA Non-Admin Reason: med not aval Finasteride (Finasteride 5 Mg Tablet) 5 mg PO BEDTIME [facility] Last Admin: 07/03/24 20:22 Dose: 5 mg Documented By: SHAQ Glucose (Glucose Gel 15 Gm Gel..Gram.) 15 gm PO Q15M PRN; Protocol PRN Reason: per Hypoglycemia Standing Ord. Dextrose (D10) 250 mls @ 750 mls/hr IV Q15M PRN; Protocol PRN Reason: per Hypoglycemia Standing Ord. Meropenem 1 gm/ Sodium (Chloride) 100 mls @ 200 mls/hr IV Q12H [facility] Last Infusion: 07/09/24 08:48 Dose: Infused Documented By: BRENDEN Insulin Human Lispro (Insulin Lispro 100 Unit/Ml 3 Ml Vial) 0 unit SUBCUT QIDACHS [facility]; Protocol Last Admin: 07/09/24 08:15 Dose: Not Given Documented By: BRENDEN Non-Admin Reason: No Insulin Coverage Lactic Acid (Ammonium Lactate 12 % Lotion 226 Gm Bottle) 1 appl TOPICAL BID [facility]; Protocol Last Admin: 07/09/24 08:16 Dose: 1 appl Documented By: BRENDEN Melatonin (Melatonin 3 Mg Tablet) 3 mg PO BEDTIME PRN PRN Reason: Sleep Last Admin: 07/08/24 21:15 Dose: 3 mg Documented By: NEDA Metoprolol Tartrate (Metoprolol Tartrate 25 Mg Tablet) 25 mg PO BID [facility]; Protocol Last Admin: 07/09/24 08:14 Dose: 25 mg Documented By: BRENDEN Nystatin (Nystatin Powder 15 Gm Bottle) 1 appl TOPICAL TID [facility]; Protocol Last Admin: 07/09/24 08:16 Dose: 1 appl Documented By: BRENDEN Ondansetron HCl (Ondansetron Hcl 4 Mg/2 Ml Vial) 4 mg IVPUSH Q6H PRN PRN Reason: Nausea Last Admin: 07/04/24 04:58 Dose: 4 mg Documented By: FELIZ Sodium Chloride (0.9 % Sodium Chloride Flush 3 Ml Syringe) [facility] Last Admin: 07/09/24 08:15 Dose: 3 ml Documented By: BRENDEN Tamsulosin HCl (Tamsulosin Hcl 0.4 Mg Capsule) 0.4 mg PO BEDTIME [facility] Last Admin: 07/03/24 20:22 Dose: 0.4 mg Documented By: SHAQ Vancomycin HCl (Vancomycin Hcl 125 Mg Capsule) 125 mg PO Q6H [facility] Last Admin: 07/09/24 08:16 Dose: 125 mg Documented By: BRENDEN Zinc Oxide (Zinc Oxide 20% Ointment 28.35 Gm Tube) 1 appl TOPICAL TID [facility]; Protocol Last Admin: 07/09/24 08:25 Dose: 1 appl Documented By: BRENDEN Labs 07/09/24 08:07 07/09/24 08:07 Labs: Laboratory Results - last 24 hr 07/08/24 07/08/24 07/08/24 11:15 16:14 20:36 MCV MCH MCHC RDW Plt Count MPV Immature Gran % (Auto) Neut % (Auto) Lymph % (Auto) [place] % (Auto) Eos % (Auto) Baso % (Auto) Lymph # (Auto) [place] # (Auto) Eos # (Auto) Baso # (Auto) Abs Immat Gran (auto) Absolute Neuts (auto) Absolute Nucleated RBC Nucleated RBC % (auto) Anion Gap Estim Creat Clear Calc Estimated GFR POC Glucose 159 H 137 H 139 H Random Glucose Calcium Phosphorus Magnesium 07/09/24 07/09/24 07/09/24 06:54 08:07 10:54 MCV 87.0 MCH 27.5 MCHC 31.6 RDW 14.6 Plt Count 215 MPV 9.5 Immature Gran % (Auto) 0.6 H Neut % (Auto) 68.8 Lymph % (Auto) 20.3 [place] % (Auto) 5.6 Eos % (Auto) 4.3 H Baso % (Auto) 0.4 Lymph # (Auto) 1.5 [place] # (Auto) 0.4 Eos # (Auto) 0.3 Baso # (Auto) 0.0 Abs Immat Gran (auto) 0.04 H Absolute Neuts (auto) 4.9 Absolute Nucleated RBC 0.000 Nucleated RBC % (auto) 0.0 Anion Gap 13 Estim Creat Clear Calc 71.4 Estimated GFR > 60 POC Glucose 121 H 205 H Random Glucose 127 H Calcium 8.7 Phosphorus 2.3 L Magnesium 1.5 L Microbiology Microbiology Results: Microbiology 07/04/24 01:31 Blood Culture - Final Blood - Venous No growth after 5 days. 07/04/24 01:31 Blood Culture - Final Blood - Venous No growth after 5 days. Assessment and Plan (1) Bacteriuria: Status: Acute (2) Hypotension: Status: Acute (3) C. 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 Diarrhea resolving changed to Fidoxamicin PO in ICU then ID rec restarting Vancomycin and follow tapering dose upon discharge gross hematuria with malpositioned chronic carmichael, UTI w MDR bacterias, bilateral hydronephrosis restart eliquis, hold asa carmichael replaced Change Abx to Meropenem 07/06/2024 ID rec 1 week of Abx then discharge on Vancomycin PO only Hypotension multifactorial requiring ICU admission, resolved restart BP meds as tolerated Keep on IVF today pafib metopolol, hold eliquis pvd hold asa gala on CKD III 2/2 hypovolemic and obstructive improved with IVF monitor BMP bph with chronic carmichael continue flomax, finasteride dvt prophylaxis - mechanical due to hematuria full code reason for continued hospitalization:gala,hypotension and need for IV antibiotics for treatment of UTI per ID recommendations. Quality Stroke Does the patient have a stroke diagnosis?: No VTE Prior VTE?: No VTE Risk Level:: Medical - moderate - high VTE Device Contraindication: N/A - Device Ordered VTE Drug Contraindication: N/A - Med Ordered
[2024-07-09] MEDS: Insulin Lispro 100 UNIT/ML 3 ML VIAL SUBCUT (12:23)
[2024-07-09] MEDS: Magnesium Sulfate/H2O 2 GM/50 ML PIGGYBACK IV (15:27)
[2024-07-09 15:51] VITALS: BP 163/64; PULSE 97; RESP 18; TEMP 36.4; O2SAT 98
[2024-07-09 16:36] LABS: Glucose, Whole Blood 116 mg/dL (60-115)
[2024-07-09 19:47] VITALS: BP 156/70; PULSE 102; RESP 18; TEMP 36.2; O2SAT 97
[2024-07-09 20:40] LABS: Glucose, Whole Blood 141 mg/dL (60-115)
[2024-07-09 21:42] VITALS: BP 156/70; PULSE 102
[2024-07-10] VITALS (7 sets, daily range): BP systolic 133–143; BP diastolic 58–78; PULSE 67–100; RESP 16–20; TEMP 36.1–36.2; O2SAT 94–100; BMI 24.0
[2024-07-10] MEDS: 0.9 % Sodium Chloride Flush 3 ML SYRINGE IVFLUSH ×3 (00:01→14:40)
[2024-07-10] MEDS: vancomycin HCL 125 MG CAPSULE PO ×4 (02:24→20:28)
[2024-07-10 06:56] LABS: MANUAL DIFF FLAG NO
[2024-07-10 07:05] LABS: Glucose, Whole Blood 117 mg/dL (60-115)
[2024-07-10 07:10] LABS: Basophils Percent Auto 0.3 % (0-2); Eosinophils Absolute Auto 0.5 X10*3/uL (0.0-0.4); Eosinophils Percent Auto 5.8 % (0-4); Hematocrit 28.5 % (42.0-52.0); Imm Gran Abs Auto 0.05 X10*3/uL (0.00-0.03); Imm Gran Pct Auto 0.6 % (0.0-0.4); Lymphocytes Absolute Auto 2.1 X10*3/uL (1.2-4.9); Lymphocytes Percent Auto 27.1 % (20-40); Mean Corpuscular HGB Conc 31.6 g/dl (31.0-36.0); Mean Corpuscular Hemoglobin 27.8 pg (27.0-33.0); Mean Platelet Volume 9.6 fL (9.4-12.4); Monocytes Absolute Auto 0.8 X10*3/uL (0.1-1.2); Monocytes Percent Auto 10.3 % (2-11); Neutrophils Absolute Auto 4.3 x10*3/uL (2.0-8.3); Neutrophils Percent Auto 55.9 % (45-73); Platelet Count 226 X10*3/uL (160-400); Red Blood Count 3.24 X10*6/uL (4.60-5.80); Red Cell Distribution Width 14.6 % (11.0-16.0); White Blood Count 7.7 X10*3/uL (4.8-10.8)
[2024-07-10 07:25] LABS: Anion Gap 14 (12-20); Blood Urea Nitrogen 14 mg/dL (9-16); Calcium 8.6 mg/dL (8.4-10.2); Carbon Dioxide 26 mmol/L (22-29); Chloride 106 mmol/L (96-108); Creatinine Clr Calc Pharmacy 87.3; Estimated Glomerular Filt Rate > 60; Glucose Random 127 mg/dL (60-115); Magnesium 1.8 mg/dL (1.6-2.6); Phosphorus 2.2 mg/dL (2.7-4.5); Potassium 3.5 mmol/L (3.3-5.1); Sodium 142 mmol/L (135-145)
[2024-07-10] MEDS: Magnesium Oxide 400 MG TABLET PO (08:31)
[2024-07-10] MEDS: Apixaban 5 MG TABLET PO ×2 (08:31→20:28)
[2024-07-10] MEDS: Metoprolol Tartrate 25 MG TABLET PO ×2 (08:31→20:28)
[2024-07-10] MEDS: Nystatin Powder 15 GM BOTTLE 1 APPL TOPICAL ×3 (08:32→20:28)
[2024-07-10] MEDS: Ammonium Lactate 12 % Lotion 226 GM BOTTLE 1 APPL TOPICAL ×2 (08:32→20:29)
[2024-07-10] MEDS: Zinc Oxide 20% Ointment 28.35 GM TUBE 1 APPL TOPICAL ×3 (08:32→20:28)
[2024-07-10 10:52] LABS: Glucose, Whole Blood 178 mg/dL (60-115)
[2024-07-10] MEDS: Insulin Lispro 100 UNIT/ML 3 ML VIAL SUBCUT (12:20)
--- NOTE | 2024-07-10 13:17 | HO.PM.IMPN ---
Subjective Subjective Date of Service: 07/10/24 Interval History: seen and evaluated this morning Denies any fever or chills having loose bowel movements but no abdominal pain or fever no other reported events Review of Systems Review of Systems: Yes all other systems are reviewed and are negative Physical Exam Vital Signs: Vital Signs: Last Vital Signs Temp 97.2 F 07/10/24 10:52 Pulse 94 07/10/24 10:52 Resp 18 07/10/24 10:52 BP 133/67 07/10/24 10:52 Pulse Ox 97 07/10/24 10:52 O2 Del Method Room Air 07/10/24 10:52 BMI result Body Mass Index 24.0 Const: Other: Constitutional : interactive, not in distress Cardiovascular : no JVP, no lower extremity edema Respiratory : bilateral chest movement, not in resp distress Gastrointestinal: soft, lax, Non tender Skin : Warm, Dry Neurological : Alert & oriented , No focal deficit Objective Data Active Medications Acetaminophen (Acetaminophen 325 Mg Tablet) 650 mg PO Q6H PRN PRN Reason: Pain, Mild (Pain Scale 1-3), fever or headache Last Admin: 07/03/24 20:22 Dose: 650 mg Documented By: SHAQ Apixaban (Apixaban 5 Mg Tablet) 5 mg PO BID [facility] Last Admin: 07/10/24 08:31 Dose: 5 mg Documented By: BRENDEN Collagenase (Collagenase Clostridium Hist. 30 Gm Tube) 1 appl TOPICAL DAILY [facility]; Protocol Last Admin: 07/10/24 09:41 Dose: Not Given Documented By: BRENDEN Non-Admin Reason: See Note Finasteride (Finasteride 5 Mg Tablet) 5 mg PO BEDTIME [facility] Last Admin: 07/03/24 20:22 Dose: 5 mg Documented By: SHAQ Glucose (Glucose Gel 15 Gm Gel..Gram.) 15 gm PO Q15M PRN; Protocol PRN Reason: per Hypoglycemia Standing Ord. Dextrose (D10) 250 mls @ 750 mls/hr IV Q15M PRN; Protocol PRN Reason: per Hypoglycemia Standing Ord. Meropenem 1 gm/ Sodium (Chloride) 100 mls @ 200 mls/hr IV Q12H [facility] Last Infusion: 07/10/24 09:10 Dose: Infused Documented By: BRENDEN Insulin Human Lispro (Insulin Lispro 100 Unit/Ml 3 Ml Vial) 0 unit SUBCUT QIDACHS [facility]; Protocol Last Admin: 07/10/24 12:20 Dose: 2 unit Documented By: BRENDEN Lactic Acid (Ammonium Lactate 12 % Lotion 226 Gm Bottle) 1 appl TOPICAL BID [facility]; Protocol Last Admin: 07/10/24 08:32 Dose: 1 appl Documented By: BRENDEN Magnesium Oxide (Magnesium Oxide 400 Mg Tablet) 400 mg PO DAILY [facility] Last Admin: 07/10/24 08:31 Dose: 400 mg Documented By: BRENDEN Melatonin (Melatonin 3 Mg Tablet) 3 mg PO BEDTIME PRN PRN Reason: Sleep Last Admin: 07/08/24 21:15 Dose: 3 mg Documented By: NEDA Metoprolol Tartrate (Metoprolol Tartrate 25 Mg Tablet) 25 mg PO BID [facility]; Protocol Last Admin: 07/10/24 08:31 Dose: 25 mg Documented By: BRENDEN Nystatin (Nystatin Powder 15 Gm Bottle) 1 appl TOPICAL TID [facility]; Protocol Last Admin: 07/10/24 08:32 Dose: 1 appl Documented By: BRENDEN Ondansetron HCl (Ondansetron Hcl 4 Mg/2 Ml Vial) 4 mg IVPUSH Q6H PRN PRN Reason: Nausea Last Admin: 07/04/24 04:58 Dose: 4 mg Documented By: FELIZ Sodium Chloride (0.9 % Sodium Chloride Flush 3 Ml Syringe) 3 ml IVFLUSH QSHIFT [facility] Last Admin: 07/10/24 08:32 Dose: 3 ml Documented By: BRENDEN Tamsulosin HCl (Tamsulosin Hcl 0.4 Mg Capsule) 0.4 mg PO BEDTIME [facility] Last Admin: 07/03/24 20:22 Dose: 0.4 mg Documented By: SHAQ Vancomycin HCl (Vancomycin Hcl 125 Mg Capsule) 125 mg PO Q6H [facility] Last Admin: 07/10/24 08:31 Dose: 125 mg Documented By: BRENDEN Zinc Oxide (Zinc Oxide 20% Ointment 28.35 Gm Tube) 1 appl TOPICAL TID [facility]; Protocol Last Admin: 07/10/24 08:32 Dose: 1 appl Documented By: BRENDEN Labs 07/10/24 06:41 07/10/24 06:41 Labs: Laboratory Results - last 24 hr 07/09/24 07/09/24 07/10/24 16:26 20:37 06:41 MCV 88.0 MCH 27.8 MCHC 31.6 RDW 14.6 Plt Count 226 MPV 9.6 Immature Gran % (Auto) 0.6 H Neut % (Auto) 55.9 Lymph % (Auto) 27.1 [place] % (Auto) 10.3 Eos % (Auto) 5.8 H Baso % (Auto) 0.3 Lymph # (Auto) 2.1 [place] # (Auto) 0.8 Eos # (Auto) 0.5 H Baso # (Auto) 0.0 Abs Immat Gran (auto) 0.05 H Absolute Neuts (auto) 4.3 Absolute Nucleated RBC 0.000 Nucleated RBC % (auto) 0.0 Anion Gap 14 Estim Creat Clear Calc 87.3 Estimated GFR > 60 POC Glucose 116 H 141 H Random Glucose 127 H Calcium 8.6 Phosphorus 2.2 L Magnesium 1.8 07/10/24 07/10/24 07:01 10:45 MCV MCH MCHC RDW Plt Count MPV Immature Gran % (Auto) Neut % (Auto) Lymph % (Auto) [place] % (Auto) Eos % (Auto) Baso % (Auto) Lymph # (Auto) [place] # (Auto) Eos # (Auto) Baso # (Auto) Abs Immat Gran (auto) Absolute Neuts (auto) Absolute Nucleated RBC Nucleated RBC % (auto) Anion Gap Estim Creat Clear Calc Estimated GFR POC Glucose 117 H 178 H Random Glucose Calcium Phosphorus Magnesium Assessment and Plan (1) Bacteriuria: Status: Acute (2) Diarrhea: Status: Acute (3) Adult failure to thrive: Status: Acute (4) C. 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) with sepsis Diarrhea resolving changed to Fidoxamicin PO in ICU then ID rec restarting Vancomycin and follow LONG tapering dose upon discharge gross hematuria with malpositioned chronic carmichael, UTI w MDR bacterias, bilateral hydronephrosis restart eliquis, hold asa carmichael replaced Change Abx to Meropenem 07/06/2024 ID rec 1 week of Abx inpatient then discharge on Vancomycin PO only Hypotension multifactorial requiring ICU admission, resolved restart BP meds as tolerated Keep on IVF today pafib metopolol, hold eliquis pvd hold asa gala on CKD III 2/2 hypovolemic and obstructive improved with IVF monitor BMP bph with chronic carmichael continue flomax, finasteride dvt prophylaxis - mechanical due to hematuria full code reason for continued hospitalization:gala,hypotension and need for IV antibiotics for treatment of UTI per ID recommendations while monitoring C.Diff diarrhea. Quality Stroke Does the patient have a stroke diagnosis?: No VTE Prior VTE?: No VTE Risk Level:: Medical - moderate - high VTE Device Contraindication: N/A - Device Ordered VTE Drug Contraindication: N/A - Med Ordered
[2024-07-10 16:34] LABS: Glucose, Whole Blood 105 mg/dL (60-115)
[2024-07-10 20:57] LABS: Glucose, Whole Blood 148 mg/dL (60-115)
[2024-07-11] MEDS: vancomycin HCL 125 MG CAPSULE PO ×4 (00:31→20:07)
[2024-07-11] MEDS: 0.9 % Sodium Chloride Flush 3 ML SYRINGE IVFLUSH ×3 (00:36→15:28)
[2024-07-11 04:00] VITALS: BP 132/80; PULSE 91; RESP 16; TEMP 36.2; O2SAT 96
[2024-07-11 06:17] LABS: Hematocrit 27.7 % (42.0-52.0); Hemoglobin 8.8 g/dl (14.0-18.0); Mean Corpuscular HGB Conc 31.8 g/dl (31.0-36.0); Mean Corpuscular Hemoglobin 27.8 pg (27.0-33.0); Mean Corpuscular Volume 87.7 fL (80.0-98.0); Mean Platelet Volume 9.5 fL (9.4-12.4); Platelet Count 265 X10*3/uL (160-400); Red Blood Count 3.16 X10*6/uL (4.60-5.80); Red Cell Distribution Width 14.7 % (11.0-16.0)
[2024-07-11 06:20] LABS: MANUAL DIFF FLAG NO
[2024-07-11 06:25] LABS: Basophils Percent Auto 0.4 % (0-2); Eosinophils Absolute Auto 0.4 X10*3/uL (0.0-0.4); Eosinophils Percent Auto 4.7 % (0-4); Imm Gran Abs Auto 0.08 X10*3/uL (0.00-0.03); Lymphocytes Absolute Auto 2.2 X10*3/uL (1.2-4.9); Lymphocytes Percent Auto 27.2 % (20-40); Monocytes Absolute Auto 0.7 X10*3/uL (0.1-1.2); Monocytes Percent Auto 8.5 % (2-11); Neutrophils Absolute Auto 4.7 x10*3/uL (2.0-8.3); Neutrophils Percent Auto 58.2 % (45-73)
[2024-07-11 06:39] LABS: Anion Gap 14 (12-20); Blood Urea Nitrogen 12 mg/dL (9-16); Calcium 8.5 mg/dL (8.4-10.2); Carbon Dioxide 26 mmol/L (22-29); Chloride 106 mmol/L (96-108); Creatinine Clr Calc Pharmacy 91.4; Estimated Glomerular Filt Rate > 60; Glucose Random 123 mg/dL (60-115); Magnesium 1.7 mg/dL (1.6-2.6); Sodium 143 mmol/L (135-145)
[2024-07-11 07:52] LABS: Glucose, Whole Blood 113 mg/dL (60-115)
[2024-07-11 08:00] VITALS: BP 147/76; PULSE 86; RESP 20; TEMP 36.1; O2SAT 97
[2024-07-11] MEDS: Metoprolol Tartrate 25 MG TABLET PO ×2 (09:57→20:07)
[2024-07-11] MEDS: Ammonium Lactate 12 % Lotion 226 GM BOTTLE 1 APPL TOPICAL ×2 (09:57→20:08)
[2024-07-11] MEDS: Magnesium Oxide 400 MG TABLET PO (09:57)
[2024-07-11] MEDS: Apixaban 5 MG TABLET PO ×2 (09:57→20:08)
[2024-07-11] MEDS: Zinc Oxide 20% Ointment 28.35 GM TUBE 1 APPL TOPICAL ×3 (09:58→20:08)
--- NOTE | 2024-07-11 10:11 | MHC.CLN ---
F/U PO INTAKE 75-100% DIET RX: 2200DM-APPROPRIATE NOTED WT TRENDING UP CONTINUE TO MONITOR PO INTAKE AND ENCOURAGE SUPPLEMENTS
--- NOTE | 2024-07-11 10:22 | MHC.CM.PN ---
CM met with Patient and his Brother at bedside. Per ROUNDS discussion, dc to [facility] is anticipated for tomorrow; [facility] CM will follow.
[2024-07-11] MEDS: Nystatin Powder 15 GM BOTTLE 1 APPL TOPICAL ×3 (11:04→20:08)
[2024-07-11 11:32] VITALS: BP 127/74; PULSE 89; RESP 16; TEMP 36; O2SAT 96
[2024-07-11 11:42] LABS: Glucose, Whole Blood 124 mg/dL (60-115)
--- NOTE | 2024-07-11 11:54 | P.PNIM_ITS ---
Subjective Subjective Date of Service: 07/11/24 Interval History: seen and evaluated this morning Denies any fever or chills had 2 bowel movements but no abdominal pain or fever no other reported events Review of Systems Review of Systems: Yes all other systems are reviewed and are negative Physical Exam 2 Vital Signs: Vital Signs: Last Vital Signs Temp 96.8 F 07/11/24 11:32 Pulse 89 07/11/24 11:32 Resp 16 07/11/24 11:32 BP 127/74 07/11/24 11:32 Pulse Ox 96 07/11/24 11:32 O2 Del Method Room Air 07/11/24 11:32 BMI result Body Mass Index 24.0 Const: Other: Constitutional : interactive, not in distress Cardiovascular : no JVP, no lower extremity edema Respiratory : bilateral chest movement, not in resp distress Gastrointestinal: soft, lax, Non tender Skin : Warm, Dry Neurological : Alert & oriented , No focal deficit Objective Data Active Medications Acetaminophen (Acetaminophen 325 Mg Tablet) 650 mg PO Q6H PRN PRN Reason: Pain, Mild (Pain Scale 1-3), fever or headache Last Admin: 07/03/24 20:22 Dose: 650 mg Documented By: SAHQ Apixaban (Apixaban 5 Mg Tablet) 5 mg PO BID CODY Last Admin: 07/11/24 09:57 Dose: 5 mg Documented By: LACEY Collagenase (Collagenase Clostridium Hist. 30 Gm Tube) 1 appl TOPICAL DAILY CODY; Protocol Last Admin: 07/11/24 10:40 Dose: Not Given Documented By: LACEY Non-Admin Reason: Patient Condition Contraindication Finasteride (Finasteride 5 Mg Tablet) 5 mg PO BEDTIME CODY Last Admin: 07/03/24 20:22 Dose: 5 mg Documented By: SHAQ Glucose (Glucose Gel 15 Gm Gel..Gram.) 15 gm PO Q15M PRN; Protocol PRN Reason: per Hypoglycemia Standing Ord. Dextrose (D10) 250 mls @ 750 mls/hr IV Q15M PRN; Protocol PRN Reason: per Hypoglycemia Standing Ord. Meropenem 1 gm/ Sodium (Chloride) 100 mls @ 200 mls/hr IV Q8H [facility] Last Infusion: 07/11/24 10:41 Dose: Infused Documented By: LACEY Insulin Human Lispro (Insulin Lispro 100 Unit/Ml 3 Ml Vial) 0 unit SUBCUT QIDACHS [facility]; Protocol Last Admin: 07/11/24 11:45 Dose: Not Given Documented By: LACEY Non-Admin Reason: No Insulin Coverage Lactic Acid (Ammonium Lactate 12 % Lotion 226 Gm Bottle) 1 appl TOPICAL BID [facility]; Protocol Last Admin: 07/11/24 09:57 Dose: 1 appl Documented By: LACEY Magnesium Oxide (Magnesium Oxide 400 Mg Tablet) 400 mg PO DAILY [facility] Last Admin: 07/11/24 09:57 Dose: 400 mg Documented By: LACEY Melatonin (Melatonin 3 Mg Tablet) 3 mg PO BEDTIME PRN PRN Reason: Sleep Last Admin: 07/08/24 21:15 Dose: 3 mg Documented By: NEDA Metoprolol Tartrate (Metoprolol Tartrate 25 Mg Tablet) 25 mg PO BID [facility]; Protocol Last Admin: 07/11/24 09:57 Dose: 25 mg Documented By: LACEY Nystatin (Nystatin Powder 15 Gm Bottle) 1 appl TOPICAL TID [facility]; Protocol Last Admin: 07/11/24 11:04 Dose: 1 appl Documented By: LACEY Ondansetron HCl (Ondansetron Hcl 4 Mg/2 Ml Vial) 4 mg IVPUSH Q6H PRN PRN Reason: Nausea Last Admin: 07/04/24 04:58 Dose: 4 mg Documented By: FELIZ Sodium Chloride (0.9 % Sodium Chloride Flush 3 Ml Syringe) [facility] Last Admin: 07/11/24 09:57 Dose: 3 ml Documented By: LACEY Tamsulosin HCl (Tamsulosin Hcl 0.4 Mg Capsule) 0.4 mg PO BEDTIME [facility] Last Admin: 07/03/24 20:22 Dose: 0.4 mg Documented By: SHAQ Vancomycin HCl (Vancomycin Hcl 125 Mg Capsule) 125 mg PO Q6H [facility] Last Admin: 07/11/24 09:57 Dose: 125 mg Documented By: LACEY Zinc Oxide (Zinc Oxide 20% Ointment 28.35 Gm Tube) 1 appl TOPICAL TID [facility]; Protocol Last Admin: 07/11/24 09:58 Dose: 1 appl Documented By: LACEY Labs 07/11/24 05:48 07/11/24 05:48 Labs: Laboratory Results - last 24 hr 07/10/24 07/10/24 07/11/24 16:30 20:44 05:48 MCV 87.7 MCH 27.8 MCHC 31.8 RDW 14.7 Plt Count 265 MPV 9.5 Immature Gran % (Auto) 1.0 H Neut % (Auto) 58.2 Lymph % (Auto) 27.2 Cass % (Auto) 8.5 Eos % (Auto) 4.7 H Baso % (Auto) 0.4 Lymph # (Auto) 2.2 Cass # (Auto) 0.7 Eos # (Auto) 0.4 Baso # (Auto) 0.0 Abs Immat Gran (auto) 0.08 H Absolute Neuts (auto) 4.7 Absolute Nucleated RBC 0.000 Nucleated RBC % (auto) 0.0 Anion Gap 14 Estim Creat Clear Calc Estimated GFR POC Glucose 105 148 H Random Glucose Calcium Phosphorus Magnesium 07/11/24 07/11/24 07/11/24 05:48 05:48 05:48 MCV MCH MCHC RDW Plt Count MPV Immature Gran % (Auto) Neut % (Auto) Lymph % (Auto) Cass % (Auto) Eos % (Auto) Baso % (Auto) Lymph # (Auto) Cass # (Auto) Eos # (Auto) Baso # (Auto) Abs Immat Gran (auto) Absolute Neuts (auto) Absolute Nucleated RBC Nucleated RBC % (auto) Anion Gap Cancelled Estim Creat Clear Calc 91.4 Cancelled Estimated GFR > 60 Cancelled POC Glucose Random Glucose 123 H Calcium Phosphorus Magnesium 07/11/24 07/11/24 07/11/24 05:48 05:48 07:34 MCV MCH MCHC RDW Plt Count MPV Immature Gran % (Auto) Neut % (Auto) Lymph % (Auto) Cass % (Auto) Eos % (Auto) Baso % (Auto) Lymph # (Auto) Cass # (Auto) Eos # (Auto) Baso # (Auto) Abs Immat Gran (auto) Absolute Neuts (auto) Absolute Nucleated RBC Nucleated RBC % (auto) Anion Gap Estim Creat Clear Calc Estimated GFR POC Glucose 113 Random Glucose Cancelled Calcium 8.5 Cancelled Phosphorus 2.0 L Magnesium 1.7 09/09/24 11:15 MCV MCH MCHC RDW Plt Count MPV Immature Gran % (Auto) Neut % (Auto) Lymph % (Auto) Cass % (Auto) Eos % (Auto) Baso % (Auto) Lymph # (Auto) Cass # (Auto) Eos # (Auto) Baso # (Auto) Abs Immat Gran (auto) Absolute Neuts (auto) Absolute Nucleated RBC Nucleated RBC % (auto) Anion Gap Estim Creat Clear Calc Estimated GFR POC Glucose 124 H Random Glucose Calcium Phosphorus Magnesium Assessment and Plan (1) Bacteriuria: Status: Acute (2) Hypotension: Status: Acute (3) Adult failure to thrive: Status: Acute (4) C. 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) with sepsis Diarrhea resolving changed to Fidoxamicin PO in ICU then ID rec restarting Vancomycin and follow LONG tapering dose upon discharge gross hematuria with malpositioned chronic carmichael, UTI w MDR bacterias, bilateral hydronephrosis restart eliquis, hold asa carmichael replaced Meropenem 07/06/2024 to finish 07/12 ID rec 1 week of Abx inpatient then discharge on Vancomycin PO only Hypotension, resolved multifactorial requiring ICU admission, resolved restart BP meds as tolerated dc IVF today pafib metopolol, hold eliquis pvd hold asa gala on CKD III 2/2 hypovolemic and obstructive improved with IVF monitor BMP bph with chronic carmichael continue flomax, finasteride dvt prophylaxis - mechanical due to hematuria full code reason for continued hospitalization:gala,hypotension and need for IV antibiotics for treatment of UTI per ID recommendations while monitoring C.Diff diarrhea. Quality Stroke Does the patient have a stroke diagnosis?: No VTE Prior VTE?: No VTE Risk Level:: Medical - moderate - high VTE Device Contraindication: N/A - Device Ordered VTE Drug Contraindication: N/A - Med Ordered
--- NOTE | 2024-07-11 12:18 | MHC.CM.PN ---
CM assisted Patient with the completion of a HCP; he named his Brother/Javed as his Agent.
[2024-07-11 16:00] VITALS: BP 146/71; PULSE 89; RESP 16; TEMP 36.1; O2SAT 95
[2024-07-11 16:45] LABS: Glucose, Whole Blood 113 mg/dL (60-115)
[2024-07-11] MEDS: Potassium Chloride ER 20 MEQ TAB.ER.PRT 40 MEQ PO (16:58)
[2024-07-11 20:07] VITALS: PULSE 111
[2024-07-11 20:43] VITALS: BP 150/63; PULSE 106; RESP 20; O2SAT 97
[2024-07-11 21:19] LABS: Glucose, Whole Blood 170 mg/dL (60-115)
[2024-07-11] MEDS: Insulin Lispro 100 UNIT/ML 3 ML VIAL SUBCUT (21:44)
[2024-07-12] VITALS: BP 126/61; PULSE 82; RESP 20; TEMP 36.3; O2SAT 99
[2024-07-12] MEDS: 0.9 % Sodium Chloride Flush 3 ML SYRINGE IVFLUSH ×2 (01:07→09:02)
[2024-07-12] MEDS: vancomycin HCL 125 MG CAPSULE PO ×2 (01:07→09:02)
[2024-07-12 04:00] VITALS: BP 171/88; PULSE 95; RESP 20; TEMP 36.4; O2SAT 96
[2024-07-12 07:16] LABS: Creatinine Clr Calc Pharmacy 95.8; Estimated Glomerular Filt Rate > 60
[2024-07-12 07:50] VITALS: BP 148/82; PULSE 87; RESP 20; TEMP 36.1; O2SAT 99
[2024-07-12 08:07] LABS: Glucose, Whole Blood 102 mg/dL (60-115)
[2024-07-12] MEDS: Magnesium Oxide 400 MG TABLET PO (09:02)
[2024-07-12] MEDS: Potassium Chloride ER 20 MEQ TAB.ER.PRT 40 MEQ PO (09:02)
[2024-07-12] MEDS: Apixaban 5 MG TABLET PO (09:02)
[2024-07-12] MEDS: Zinc Oxide 20% Ointment 28.35 GM TUBE 1 APPL TOPICAL (09:03)
[2024-07-12] MEDS: Ammonium Lactate 12 % Lotion 226 GM BOTTLE 1 APPL TOPICAL (09:03)
[2024-07-12] MEDS: Nystatin Powder 15 GM BOTTLE 1 APPL TOPICAL (09:03)
[2024-07-12 09:06] VITALS: BP 172/92; PULSE 108
[2024-07-12] MEDS: Metoprolol Tartrate 25 MG TABLET PO (09:06)
--- NOTE | 2024-07-12 09:29 | MHC.CM.PN ---
Per MD, Patient is medically cleared for dc to SNF/STR today. Patient will dc to his first choice SNF/[facility] today at 1:30PM, via [facility]. CM spoke with Brother/HCP/AmorJaved @ [phone] and informed him of the dc plan. IMM addressed.
--- NOTE | 2024-07-12 11:15 | MHC.SL.SWA ---
Speech Pathologist Impression: Risk of Aspiration Due to: None Dysphasia Diet Status: Liquid Consistency and Strategies for Safe Swallow: Liquid Intake Recommendation: Thin Liquid Intake Strategies: Small Sips Unrestricted Solid Food Consistency: Dietary Recommendations: Regular Oral Medication Intake: Whole with Liquid Please contact the pharmacy regarding appropriate crushable or liquid drug formulations that are available whenever modified delivery is recommended. Compensatory Strategies and Precautions to be Taken for Safe Swallow: Sitting Upright (90 deg) Supervision While Eating and Drinking for Safe Swallow: Intermittent Supervision Swallowing Recommended Treatments: Compens. Strategy Educat. Recommendation for Speech: Discharged with Instructions for Home Use Comment: Recommend continue regular solids and thin liquids. Meds whole with liquid or puree, as preferred. Take meds slowly, x1-2 at a time. No skilled Speech Therapy indicated at this time. Frequency/Duration: N/a Timeline to reassess: PRN Sizing Machine Tender Clinican/Clinical Fellow: No Supervisory Statement: I have reviewed and agree with the student/clinical fellow's documentation: N/A Speech Language Pathologist: Warren Maxwell M.A., CCC-VIRTUAL ASSISTANT FOR [employer]
--- NOTE | 2024-07-12 11:27 | PM.DS ---
DS: Providers Provider Date of Service: 07/12/24 Date of admission: 07/02/24 18:15 Date of discharge: 07/12/24 Primary care physician: Ramin Medrano MD Consults: 07/02/24 18:06 Consult to Infectious Diseases Routine Consulting Provider: [facility] Reason for consultation: recurrent cdif 07/04/24 08:58 Consult to Infectious Diseases Routine Consulting Provider: JAYY BO Reason for consultation: Recurrent C Diff Infection Has provider been notified: Yes 07/06/24 08:03 Consult to Infectious Diseases Routine Consulting Provider: JAYY BO Reason for consultation: UTI Has provider been notified: No 07/10/24 18:10 Consult to Wound Care Routine Reason for consultation: right hip pupped blister are , DS: Diagnosis Discharge Diagnosis (1) Bacteriuria: Status: Acute (2) Hypotension: Status: Acute (3) Adult failure to thrive: Status: Acute (4) C. difficile diarrhea: Status: Acute (5) Diarrhea: Status: Acute (6) UTI (urinary tract infection): Status: Acute (7) Sepsis: Status: Acute (8) Clostridioides difficile infection: Status: Acute (9) Weakness: Status: Acute DS: Summary Hospital Course Hospital Course: Admission note HPI 74M PMH cdif colitis, bph with chronic carmichael, pafib on eliquis, PVD, CKD III, presented with diarrhea. patient had been admitted to [facility] 06/07/24 - 06/11/24 for cdif colitis, treated with course of vancomycin and discharged to SNF. he has since completed course. he had some improvement in diarrhea, but states never fully went away and worsened after finishing vancomycin. patient was discharged from SNF and at home reports feeling weak, inability to get to toilet on time, so came to ED. in ED initially placed on ED observation, cdif pcr and toxin came back positive, patient then noted to have hematuria in chronic carmichael. he denies chest pain, fever, chills, abdominal pain, sob. Hospital course # Recurrent cdif colitis (3rd episode) with sepsis Diarrhea resolved. he might have one or two loose bowel movements daily but no more fever or abdominal pain. tolerating diet well. changed to Fidoxamicin PO in ICU then ID rec restarting Vancomycin and follow LONG tapering dose upon discharge as described below. # Gross hematuria with malpositioned chronic carmichael, UTI w MDR bacterias, bilateral hydronephrosis Carmichael was replaced with good response as hematuria resolved and kidney function improved. Treated with Meropenem for MDR UTI Enterobacter and Morganella. Evaluated by ID who recommended 1 week of IV antibiotics then to stop all antibiotics and focus on C.Diff treatment with oral Vancomycin. # Hypotension, resolved Noticed at presentation and was multifactorial requiring ICU admission and IV fluids support, resolved and he was restarted his BP medications with fair tolerance. # Hx PAF, Continue metopolol, Eliquis # PVD, restart asa # BHUMI on CKD III 2/2 hypovolemic and obstructive, improved back to normal baseline with resolution of obstruction and usage of IVF. # Hx BPH with chronic carmichael, continue flomax, finasteride, voiding trial as outpatient upon follow up with Urology. Discharge plan Continue Magnesium supplement Nystatin and Zinc Oxide for skin care PO Vancomycin 125 mg qid for 10 days then po taper 125 tid one week then 125 mg 125 bid one week then 125 mg daily one week then consistently 125 mg every M,W,F To follow up with Urology in 2 weeks time Time Attestation Discharge Coordination Time (in mins): 44 Quality: Safe Use of Opioids Does Pt have an Active Cancer Diagnosis on the Problem List?: No Quality: Stroke Does the patient have a stroke diagnosis?: No Physical Exam Vital Signs: Vital Signs: Last Vital Signs Temp 97 F 07/12/24 07:50 Pulse 108 H 07/12/24 09:06 Resp 20 07/12/24 07:50 BP 172/92 H 07/12/24 09:06 Pulse Ox 99 07/12/24 07:50 O2 Del Method Room Air 07/12/24 07:50 BMI result Body Mass Index 24.0 Const: Other: Constitutional : interactive, not in distress Cardiovascular : no JVP, no lower extremity edema Respiratory : bilateral chest movement, not in resp distress Gastrointestinal: soft, lax, Non tender Skin : Warm, Dry Urology: Carmichael in place with clear urine in bag Neurological : Alert & oriented , No focal deficit DS: Data Data Completed and Pending Completed studies during hospitalization [Text1]: Procedures Detachment at Left 1st Toe, Complete, Open Approach (01/23/21) Detachment at Left 2nd Toe, Low, Open Approach (10/10/20) Detachment at Left 3rd Toe, Complete, Open Approach (01/13/22) Dilation of Left Posterior Tibial Artery, Percutaneous Approach (01/23/21) Excision of Left Foot Skin, External Approach (01/23/21) Insertion of Infusion Device into Right Brachial Vein, Percutaneous Approach (03/04/24) Insertion of Infusion Device into Superior Vena Cava, Percutaneous Approach (01/13/22) Labs on day of discharge: Laboratory Results - last 24 hr 07/11/24 07/11/24 07/11/24 11:15 16:41 20:29 Hold Purple Top Creatinine Estim Creat Clear Calc Estimated GFR POC Glucose 124 H 113 170 H 07/12/24 07/12/24 06:42 07:55 Hold Purple Top SEE NOTE Creatinine 0.82 Estim Creat Clear Calc 95.8 Estimated GFR > 60 POC Glucose 102 Imaging Chest x-ray: Radiologist's impression: ITS Impressions Abdomen/Pelvis CT 07/02/24 20:19 IMPRESSION: Severe distention of the urinary bladder with circumferential wall thickening, gas, and perivesicular stranding resulting in mild upstream hydroureteronephrosis. Transurethral Carmichael catheter tip terminates within the membranous urethra. Fleischner guidelines were followed. Electronically signed by: Sylvester Lopez DO 07/02/2024 10:31 PM EDT RP Discharge Plan Discharge Anticipated Discharge Date/Time: 07/12/24 11:13 Patient Disposition: Xfer [facility] Discharge Diagnosis: Diarrhea from C.Diff Urine infection Referrals: Artie [facility] [place] [Outside] - 1 Week Ramin Medrano MD [Primary Care Provider] - 1 Week Discharge Medications: New zinc oxide 20 % Ointment 1 appl topical TID Qty: 30 0RF Protocol: Apply to: Apply to: buttocks, irritated areas vancomycin 125 mg Capsule See Rx Instructions .ROUTE .COMPLEX Qty: 100 0RF Rx Instructions: po Vancomycin 125 mg qid for 10 days then po taper 125 tid one week then 125 mg 125 bid one week then 125 mg daily one week then consistently 125 mg every M,W,F magnesium oxide 400 mg (241.3 mg magnesium) Tablet 400 mg PO DAILY Qty: 90 0RF nystatin 100,000 unit/gram Powder 1 appl topical TID Qty: 30 0RF Protocol: Apply to: Apply to: groin/testicular are Continued metoprolol tartrate 50 mg tablet 50 mg PO BID 90 Days Qty: 180 3RF Eliquis 5 mg tablet 5 mg PO BID Qty: 180 3RF bethanechol chloride 25 mg tablet 25 mg PO BID aspirin 81 mg Capsule 81 mg PO DAILY Santyl 250 unit/gram Ointment 1 appl topical DAILY Qty: 15 0RF Protocol: Apply to: Apply to: rt leg wound cyanocobalamin (vitamin B-12) 500 mcg Tablet 500 mcg PO DAILY tamsulosin 0.4 mg capsule 0.4 mg PO BEDTIME cholecalciferol (vitamin D3) 25 mcg (1,000 unit) Tablet 25 mcg PO DAILY (DME) lancets 28 gauge misc See Rx Instructions topical DAILY Qty: 100 Rx Instructions: As directed finasteride 5 mg tablet 5 mg PO BEDTIME 90 Days Qty: 90 1RF Discharge Orders: Discharge Order (Routine); Ordered 07/12/24 Ordered By: Td Lackey Diet: Advance to usual diet Activity on Discharge: As tolerated Stand Alone Forms: Patient Portal Discharge page Print Language: Turkmen Care Plan Goals: You were treated for resistant bacterial UTI and C.Diff infection with diarrhea as you were seen by infectious disease specialist. Continue Magnesium supplement Nystatin and Zinc Oxide for skin care PO Vancomycin 125 mg qid for 10 days then po taper 125 tid one week then 125 mg 125 bid one week then 125 mg daily one week then consistently 125 mg every M,W,F Health Concerns: Read below Plan of Treatment: Read below Assessment: Read below
[2024-07-12 11:49] VITALS: BP 140/82; PULSE 105; RESP 20; TEMP 36.7; O2SAT 96
[2024-07-12] MEDS: Metoprolol Tartrate 50 MG TABLET PO (11:54)
[2024-07-12] MEDS: Insulin Lispro 100 UNIT/ML 3 ML VIAL SUBCUT (11:55)
[2024-07-12 12:08] LABS: Glucose, Whole Blood 175 mg/dL (60-115)
--- NOTE | 2024-07-12 15:56 | P.CDIM_ITS ---
PROVIDER RESPONSE TEXT: To clarify, the appropriate diagnosis supported by the clinical indicators: Hypokalemia: acute QUERY TEXT: PHYSICIAN'S DOCUMENTATION REQUEST Date of Query: 07/12/2024 07:50 AM EDT Patient Name: Shashank Fregoso Admit Date: 07/02/2024 Dear Td Lackey MD, A review of the medical record indicates additional documentation may be needed. Please review below and update the documentation accordingly. Clinical Indicators: LAB FINDINGS: potassium 3.0 L Klor-Con Based on the above, is there a diagnosis that correlates with these lab findings: Hypokalemia resolved, possible, probable etc. Labs indicate a diagnosis of (please specify) Other (explain) Clinically unable to determine (explain) Thank you, Florencia Mccollum, CCS, CDIS Use of terms such as suspected, likely, concern for, or probable (associated with a specific diagnosi s that is being evaluated, monitored, or treated as if it exists) are acceptable and can be coded in the inpatient se tting, when documented at the time of discharge. Please use your independent medical judgment in providing your response. THIS QUERY IS PART OF THE PERMANENT MEDICAL RECORD
== END 2024-07-12 14:06 | disposition skilled nursing facility (03) | DRG 698 ==
LOC: HO.ED 16:32 → HO.EDOVER 18:21 → HO.IMC 20:05 → HO.ICU 07-04 03:53 → HO.IMC 07-06 11:53
PROVIDERS: Emergency Medicine; Internal Medicine Critical Care Medicine; Nurse Practitioner Family; Physician Assistant Medical; Student in an Organized Health Care Education/Training Program; Admitting Provider Internal Medicine; Emergency Provider Emergency Medicine Emergency Medical Services; PCP Internal Medicine; Visit Provider Student in an Organized Health Care Education/Training Program
DX: T83.511A Infection and inflammatory reaction due to indwelling urethral catheter, initial encounter (principal); A41.9 Sepsis, unspecified organism; N13.6 Pyonephrosis; A04.71 Enterocolitis due to Clostridium difficile, recurrent; N17.9 Acute kidney failure, unspecified; E87.21 Acute metabolic acidosis; Z16.24 Resistance to multiple antibiotics; I95.9 Hypotension, unspecified; E11.51 Type 2 diabetes mellitus with diabetic peripheral angiopathy without gangrene; E11.22 Type 2 diabetes mellitus with diabetic chronic kidney disease; I48.0 Paroxysmal atrial fibrillation; B96.89 Other specified bacterial agents as the cause of diseases classified elsewhere; E87.6 Hypokalemia; E86.1 Hypovolemia; R31.0 Gross hematuria; N40.0 Benign prostatic hyperplasia without lower urinary tract symptoms; I73.9 Peripheral vascular disease, unspecified; N18.30 Chronic kidney disease, stage 3 unspecified; Z79.01 Long term (current) use of anticoagulants; Z79.82 Long term (current) use of aspirin; Z79.899 Other long term (current) drug therapy
CPT/HCPCS: 36415; 74176; 80048; 80053; 81001; 82040; 82565; 82803; 82947; 83605; 83735; 84100; 84484; 85025; 85027; 87040; 87076; 87086; 87088; 87186; 87205; 87324; 87493; 92610; 92950; 93005; 97161; 97162; 97530; 99285; C1758; J0613; J0696; J1836; J2185; J2405; J2470; J2760; J3370; J3371; J3475; J7120; P9047

== ENCOUNTER → 2024-07-02 18:15 | Outpatient (BNV) | payer MEDICARE, BC, SELFPAY | PROVIDERS: Admitting Provider Internal Medicine; Emergency Provider Emergency Medicine Emergency Medical Services; PCP Internal Medicine; Visit Provider Internal Medicine | DX: A41.9 Sepsis, unspecified organism (principal); R82.71 Bacteriuria; I95.9 Hypotension, unspecified; R62.7 Adult failure to thrive; A04.72 Enterocolitis due to Clostridium difficile, not specified as recurrent; R19.7 Diarrhea, unspecified; N39.0 Urinary tract infection, site not specified; R53.1 Weakness | CPT/HCPCS: 99223; 99232; 99239 ==

== ENCOUNTER → 2024-07-02 18:15 | Outpatient (BNV) | payer MEDICARE, BC, SELFPAY | PROVIDERS: Admitting Provider Internal Medicine; Emergency Provider Emergency Medicine Emergency Medical Services; PCP Internal Medicine; Visit Provider Internal Medicine | DX: I95.9 Hypotension, unspecified (principal); A04.72 Enterocolitis due to Clostridium difficile, not specified as recurrent; A41.9 Sepsis, unspecified organism; R82.71 Bacteriuria | CPT/HCPCS: 99222 ==

== ENCOUNTER → 2024-07-02 18:15 | Outpatient (BNV) | payer MEDICARE, BC, SELFPAY | PROVIDERS: Admitting Provider Internal Medicine; Emergency Provider Emergency Medicine Emergency Medical Services; PCP Internal Medicine; Visit Provider Physician Assistant Medical | DX: I48.0 Paroxysmal atrial fibrillation (principal); I95.9 Hypotension, unspecified; A04.72 Enterocolitis due to Clostridium difficile, not specified as recurrent | CPT/HCPCS: 99291 ==

== ENCOUNTER 2024-08-11 08:30 | Outpatient (AMB) | payer MEDICARE, BC, SELFPAY ==
--- NOTE | 2024-08-11 09:17 | MHC.OFFVIS ---
Intake Visit Reasons: PVR, follow up. Intake Note: Patient is Present for PVR/Catheter removed at Nursing Facility Urology Med: Finasteride, Bethanechol, Tamsulosin Antibiotic Allergy:Penicillin, Amoxicillin, Erythromycin Blood Thinner: Eliquis, Aspirin Last PVR: 253ml Todays PVR: 293 Trade Mark Attorney Required: No Accompanied by: Self / Same As Patient Allergies penicillin V Allergy (Intermediate, Verified 08/11/24 09:59) rash amoxicillin Allergy (Verified 08/11/24 09:59) Unknown Erythromycin Allergy (Intermediate, Uncoded 08/11/24 09:59) diarrhea Medication List - Last Reconciled 08/11/24 by David Boateng MD apixaban (Eliquis) 5 mg PO BID aspirin 81 mg PO DAILY bethanechol chloride 25 mg PO BID 90 days cholecalciferol (vitamin D3) 25 mcg PO DAILY collagenase clostridium histo. (Santyl) 1 appl See Protocol topical DAILY cyanocobalamin (vitamin B-12) 500 mcg PO DAILY finasteride 5 mg PO BEDTIME 90 days lancets As directed magnesium oxide 400 mg PO DAILY metoprolol tartrate 50 mg PO BID 90 days nystatin 1 appl See Protocol topical TID tamsulosin 0.4 mg PO BEDTIME 90 days vancomycin po Vancomycin 125 mg qid for 10 days then po taper 125 tid one week then 125 mg 125 bid one week then 125 mg daily one week then consistently 125 mg every M,W,F zinc oxide 20% 1 appl See Protocol topical TID HPI Comments Details: Shashank is a pleasant male. He is a patient of Dr. Medrano. 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 High PVR continues PVR today 250 Had episode with indwelling Davis catheter Catheter removed 2 or 3 days ago and has been able to empty using urinal Does maintain high residual Continue current medications Did discuss possible trial of InterStim We will talk about that again in 6 months Urinary retention Episode of retention in hospital December 2021 Had been started on Flomax Initial high residuals over 400 cc Has frequent small voids suspicious for overflow incontinence Not interested in the catheter Does not have hand mobility to perform clean intermittent catheterization Current therapy bethanechol PFSH Medical History (Updated 07/20/24 @ 00:02 by Background Dayne) PAF (paroxysmal atrial fibrillation) Bacteriuria Bladder outlet obstruction Psoriasis Sepsis Elevated cholesterol Anemia BPH (benign prostatic hyperplasia) Diabetes Vitamin D deficiency Neuropathy HTN (hypertension) Chronic a-fib Amputation of great toe Osteomyelitis PVD (peripheral vascular disease) Amputation of toe of left foot Pre-diabetes History of neuropathy Arrhythmia Osteomyelitis of second toe of left foot Ulcer of left second toe Amputated toe of right foot History of heart valve abnormality Surgical History (Updated 07/20/24 @ 00:02 by Casandra Oscar) History of amputation of toe Status post amputation of toe Hx of amputation Status post ORIF of fracture of ankle Family History Mother CAD (coronary artery disease) Social History Household Members: Other Housing: Shelter Are you a primary medicare nurse to a significant other at home: No Do you presently have visiting nurse or other home services: Yes (home comfort services [facility]) Alcohol intake: never Comment: scheduled med Patient Tobacco Use Status: Never used Tobacco Second Hand Smoke Exposure: No Advance Directives Date on File: 08/07/20 service: No Current occupational status: retired Review of Systems Const Denies chills and Denies fever(s) Card Reports no additional complaints and Denies syncope Resp Denies cough GI Denies abdominal pain and Denies heartburn Reports as per HPI and Denies change in libido Neuro Denies syncope Psych Denies change in libido Endo Denies change in libido Physical Exam Const General: cooperative, healthy appearing, comfortable and no acute distress Orientation/consciousness: patient oriented x3 HEENT Face and sinus: Yes normal facial exam Mouth: moist mucous membranes Neck Neck: Yes normal visual inspection, Yes full ROM and Yes trachea midline Chest Chest palpation & inspection: normal inspection of the chest Resp Effort & Inspection: normal respiratory effort, able to speak in complete sentences and no respiratory distress GI Inspection: Yes normal to inspection Back/Spine/Pelvis Cervical Spine: normal cervical lordosis Thoracic/Lumbar Spine: thoracic and lumbar spine normal to inspection Skin General skin exam: no rashes or lesions noted Neuro General: patient oriented x3, gait normal, tone normal and moves all extremities Extrem General: Yes normal to inspection and Yes capillary refill normal Office Procedures Post Void Residual Post Residual Void Post Void Residual (PVR): 293 [address]109-Yahd Void Residual by ultrasound Assessment & Plan Assessment & Plan (1) Urinary retention with incomplete bladder emptying: Code(s): R33.9 - Retention of urine, unspecified Category: Medical (2) Bilateral hydronephrosis: Code(s): N13.30 - Unspecified hydronephrosis Category: Medical Plan Six-month follow-up office PVR Orders: Orders AMB Post Void Residual by ultrasound Today R33.9 - Retention of urine, unspecified Medications: Changed From bethanechol chloride 25 mg PO BID To bethanechol chloride 25 mg PO BID 90 days 180 tabs 1RF From tamsulosin 0.4 mg PO BEDTIME To tamsulosin 0.4 mg PO BEDTIME 90 days 90 caps 1RF Refilled finasteride 5 mg PO BEDTIME 90 days 90 tabs 1RF Patient Instructions: Imaging studies, laboratory and physical exam results were discussed and reviewed in detail. No major barriers to patient understanding were identified. An opportunity to ask questions regarding the treatment plan was provided. All questions were answered. The patient expressed understanding and agreement with the above treatment plan. The patient is aware they should contact our office by phone for worsening of their current condition or the appearance of new urologic symptoms. Compliance is encouraged with any medications and followup testing that is ordered. It is a privilege to participate in the urologic care of your patient. If you have any questions or concerns regarding treatment for the above conditions, or other urologic issues, please do not hesitate to contact me. The office telephone contact is [phone]. This note is constructed using voice recognition software. While every effort has been made to ensure accuracy jewelry manager errors may have been included. Yours sincerely, Dr David Boateng MD, [facility] - Urology Providers of Expert, Compassionate Care for the Genitourinary System Coding Level of Care Code Est Pt Level 3 (71067) Diagnoses Urinary retention with incomplete bladder emptying R33.9 Bilateral hydronephrosis N13.30 CPT Codes Post Residual Void - PVR CPT Code: 22670-Fpmz Void Residual by ultrasound ([id number])
== END 2024-08-11 10:34 | disposition home or self-care (01) ==
LOC: HO.HUSH 08:30
PROVIDERS: PCP Internal Medicine; Visit Provider Urology
DX: R33.9 Retention of urine, unspecified (principal); N13.30 Unspecified hydronephrosis
CPT/HCPCS: 99213

== ENCOUNTER → 2024-08-11 08:30 | Outpatient (BNVA) | payer MEDICARE, BC, SELFPAY | PROVIDERS: PCP Internal Medicine; Visit Provider Urology | DX: R33.9 Retention of urine, unspecified (principal); N13.30 Unspecified hydronephrosis; E11.40 Type 2 diabetes mellitus with diabetic neuropathy, unspecified | CPT/HCPCS: 51798; 99212 ==

== ENCOUNTER 2024-11-07 01:01 | Inpatient (IN) | payer MEDICARE, BC, SELFPAY ==
[2024-11-07] VITALS (15 sets, daily range): BP systolic 95–140; BP diastolic 49–72; PULSE 93–128; RESP 14–16; TEMP 36.4–38; O2SAT 91–100; BMI 21.1
--- NOTE | 2024-11-07 | ECG_ITS ---
Test Reason : TACHYCARDIA Blood Pressure : / mmHG Vent. Rate : 124 BPM Atrial Rate : 000 BPM P-R Int : 000 ms QRS Dur : 094 ms QT Int : 338 ms P-R-T Axes : 000 073 -15 degrees QTc Int : 485 ms Atrial fibrillation with rapid ventricular response ST depression lateral leads, possible ischemia Abnormal ECG When compared with ECG of 02-JUL-2024 19:51, Questionable change in QRS axis Referred By: Generic ED Physician Electronically Signed By:BETSY LOMAS
--- OUTSIDE RECORDS SUMMARY | 2024-11-07 01:23 | XMS_ITS ---
Author Organization [facility] Address [address] [place] [address] Care Team Providers [employer] Recruiter Name Role Phone Ramin Medrano MD Primary Care Provider Berry Quiles [phone] REASON FOR VISIT NS Encounters Encounter Location Date Provider Diagnosis [facility] [address] [place] [address] 06/09/2024 Berry Arnold Plan Of Treatment No Information Progress Notes * Shashank FREGOSO JrDOB:[birth year] (74 yo M)Acc No.[id number]:06/09/2024 Patient:?Shashank Fregoso :1950???Age:74 Y???Sex:Male Address:[address] [place], [address] * true * Date:? Generated for Melchori natty/Carmen/eTransmitting on:?11/07/2024 01:23 AM EST
--- OUTSIDE RECORDS SUMMARY | 2024-11-07 01:23 | XMS_ITS | Patient Health Record ---
[facility] Address [address] [facility] [place] [address] Care Team Providers [employer] Customer Experience Advisor Name Role Phone Ramin Medrano MD Primary Care Provider Berry Quiles Unavailable [phone] Allergies Allergen (clinical drug ingredient) Drug/Non Drug Allergy documented on EMR Reaction Allergy Type Onset Date Status Erythrocin Unknown Drug Allergy Active Penicillin Unknown Drug Allergy Active Reason For Referral No Information Medications Medication SIG (Take, Route, Frequency, Duration) Notes Start Date End Date Status Clindamycin HCl 300 MG 1 capsule Orally every 6 hrs for 10 day(s) Active D3 Vitamin Active Aspirin 81 81 MG 1 tablet Orally Once a day for 30 day(s) 12/28/2020 Active Doxycycline Hyclate 100 MG Oral for 7 Not-Taking Eliquis 5 MG as directed Orally Active Clindamycin HCl 150 MG Oral for 8 Not-Taking Doxycycline Monohydrate 100 MG 1 capsule Orally Once a day for 30 days 01/15/2021 Not-Taking Doxycycline Monohydrate 100 MG Oral for 15 Not-Taking Terazosin HCl 10 MG TAKE 1 CAPSULE BY MO UTH EVERYDAY AT BEDTIME Oral for 90 Active Vitamin B12 Active Extra Depth Diabetic Shoes with 3 Pair Custom heat-molded multi-density innersoles for 1 year Dx: Active Finasteride 5 MG TAKE 1 TABLET BY BESSIE TH EVERY DAY Oral for 90 Active Silver sulfADIAZINE 1 % External for 20 Not-Taking Metoprolol Tartrate 25 MG as directed Or al Twice a day Active Immunizations Vaccine Route Administration Date Status Comme nts COVID-19 Moderna Vaccine Unknown 08/13/2021 Administere d 1st 07/15/21 2nd 08/13/21 Influenza Unknown 10/30/2021 Refused Pneumococcal Unknown 07/03/2021 Administered Social History Tobacco Use: Social History Observation Description Date Details (start date - stop date) Never Smoker NA - NA Tobacco Use/Smoking Question Answer Notes Are you a: nonsmoker Additional Findings: Tobacco Non-User Current no n-smoker Alcohol Screen Question Answer Notes Did you have a drink containing alcohol in the p ast year? No Points 0 Interpretation Negative Tobacco use other than smoking: Question Answer Notes Are you an other tobacco user? No Problems Problem Type SNOMED Code ICD Code Onset Dates Problem Status W/U Status Risk Notes Problem Non-pressure chronic ulcer of other part of right foot with fat layer exposed (L97.512) Active confirmed Problem Chronic ulcer of foot (508846176) Non-pressure chronic ulcer of other part of left foot with fat layer exposed (L97.522) Active confirmed Problem Non-pressure chronic ulcer of other part of left foot limited to breakdown of skin (L97.521) Active confirmed Problem Non-pressure chronic ulcer of other part of right foot limited to breakdown of skin (L97.511) Active confirmed Problem Polyneuropathy due to type 2 diabetes mellitus (885541316) Type 2 diabetes mellitus with diabetic polyneuropathy (E11.42) Active confirmed Problem Polyneuropathy due to diabetes mellitus type I (897023817) Type 1 diabetes mellitus with diabetic polyneuropathy (E10.42) Active confirmed Problem 292698496 Hammertoe of lef t foot (M20.42) Active confirmed Problem 43586910744485515 Subacute osteomyelitis of left foot (M86.272) Active confirmed Problem 244697536983599 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) Active confirmed Vital Signs Blood pressure diastolic 80 mm Hg 02/25/2024 Height 6ft 3in in 02/25/2024 Blood pressure systolic 140 mm Hg 02/25/2024 Weight 200 lbs 02/25/2024 BMI 25.00 kg/m2 02/25/2024 Procedures Procedure Date Ordered Date Performed Result Body Sit e 38432-JUFTVJE SKIN/TISSUE 01/06/2024 N/A 91914-[id number] SKIN/TISSUE 2024 N/A Encounters Encounter Location Date Provider Diagnosis [facility] [place] [address] [place] [address] 01/06/2024 Berry Arnold Type 2 diabetes mellitus with diabetic polyneuropathy E11.42 ; Pain in right toe(s) M79.674 ; Tinea unguium B35.1 ; Pain in left toe(s) M79.675 ; Hammertoe of left foot M20.42 ; Xerosis cutis L85.3 ; Non-pressure chronic ulcer of other part of left foot with fat layer exposed L97.522 and Cellulitis of left foot L03.116 [facility] [place] [address] [place] [address] 2024 Berry Arnold Type 2 diabetes mellitus with diabetic polyneuropathy E11.42 and Non-pressure chronic ulcer of other part of left foot with fat layer exposed L97.522 [facility] [address] [address] 02/25/2024 Berry Arnold Type 2 diabetes mellitus with diabetic polyneuropathy E11.42 and Non-pressure chronic ulcer of other part of left foot with fat layer exposed L97.522 [facility] [address] [address] 12/28/2023 [facility] [address] [place] [address] 01/06/2024 [facility] [address] [address] 01/06/2024 [facility] [address] [address] 01/06/2024 [facility] [address] [address] 01/07/2024 [facility] [address] [address] 02/04/2024 [facility] [address] [address] 02/16/2024 [facility] [address] [address] 05/09/2024 [facility] [address] [address] 06/09/2024 Berry Arnold Assessments Encounter Date Diagnosis (ICD Code) Assessment Notes Treatment Notes Treatment Clinical Notes Section Notes 01/06/2024 Type 2 diabetes mellitus with diabetic polyneuropathy (ICD-10 - E11.42) 02/25/2024 Non-pressure chronic ulcer of other part of left foot with fat layer exposed (ICD-10 - L97.522) 02/25/2024 Type 2 diabetes mellitus with diabetic polyneuropathy (ICD-10 - E11.42) 2024 Non-pressure chronic ulcer of other part of left foot with fat layer exposed (ICD-10 - L97.522) 2024 Type 2 diabetes mellitus with diabetic polyneuropathy (ICD-10 - E11.42) 01/06/2024 Pain in right toe(s) (ICD-10 - M79.674) 01/06/2024 Pain in left toe(s) (ICD-10 - M79.675) 01/06/2024 Tinea unguium (ICD-10 - B35.1) 01/06/2024 Hammertoe of left foot (ICD-10 - M20.42) 01/06/2024 Xerosis cutis (ICD-10 - L85.3) 01/06/2024 Non-pressure chronic ulcer of other part of left foot with fat layer exposed (ICD-10 - L97.522) 01/06/2024 Cellulitis of left foot (ICD-10 - L03.116) Plan Of Treatment Pending Test Test Name Order Date X ray : Foot, left 3V 01/14/2021 X ray : Foot, left 3V 11/14/2021 X ray : Foot, left 3V 01/06/2024 X ray : Foot, right 3V 01/14/2021 [id number] SKIN/TISSUE 12/04/2021 45703-[id number] SKIN/TISSUE 01/14/2021 39734-JRJNKQB SKIN/TISSUE 01/06/2024 45553-[id number] SKIN/TISSUE 2024 98975-JZKK SKIN LESIONS, OVER 4 01/15/20 21 40272-AKVS SKIN LESIONS, OVER 4 07/03/20 21 85353-BOJG SKIN LESIONS, OVER 4 10/30/20 21 13218-YXYM SKIN LESIONS, OVER 4 12/17/19 23 26156-GEPW SKIN LESIONS, 2 TO 4 03/13/20 22 Insurance Providers Payer Name Payer Address Payer Phone Subscriber Number Group Number Insured Name Patient Relationship to Insured Coverage Start Date Coverage End Date [employer] [address] [place] [address] [id number] Shashank Fregoso Self - patient is the insured [facility] [address] [place] [address] [id number] Shashank Fregoso Self - patient is the insured Medical (General) History Medical History History ICD Code Arthritis Broken bones Neuropathy Poor circulation Psoriasis Measles Chicken pox Joint implants/screws type II diabetes Surgical History Surgery Date(Month/Year) amputation, toe Left 10/2020 angiogram /ultrasound 12/2020 amputation, toe Left 12/2021 Hospitalization History Reason Date(Month/Year) C-collapsed in bed Infection Left Toe 10 days Rehab 6 weeks 01/13/22
--- OUTSIDE RECORDS SUMMARY | 2024-11-07 01:23 | XMS_ITS ---
Author Organization [facility] Address [address] [place] [address] Care Team Providers Care Fuel Quality Tech Name Role Phone Ramin Medrano MD Primary Care Provider Berry Quiles Unavailable [phone] REASON FOR VISIT Painful nail(s) aggrevated by shoes and causing difficulty standing/walking. Medications Medication SIG (Take, Route, Frequency, Duration) Notes Start Date End Date Status Extra Depth Diabetic Shoes with 3 Pair Custom heat-molded multi-density innersoles for 1 year Dx: Active Encounters Encounter Location Date Provider Diagnosis [facility] [address] [place] [address] 05/09/2024 Berry Arnold Type 2 diabetes mellitus with diabetic polyneuropathy E11.42 ; Pain in right toe(s) M79.674 ; Tinea unguium B35.1 ; Pain in left toe(s) M79.675 ; Hammertoe of left foot M20.42 and Xerosis cutis L85.3 Assessments Encounter Date Diagnosis (ICD Code) Assessment Notes Treatment Notes Treatment Clinical Notes Section Notes 05/09/2024 Type 2 diabetes mellitus with diabetic polyneuropathy (ICD-10 - E11.42) 05/09/2024 Pain in right toe(s) (ICD-10 - M79.674) 05/09/2024 Tinea unguium (ICD-10 - B35.1) 05/09/2024 Pain in left toe(s) (ICD-10 - M79.675) 05/09/2024 Hammertoe of left foot (ICD-10 - M20.42) 05/09/2024 Xerosis cutis (ICD-10 - L85.3) Plan Of Treatment Medication Medication Name Sig Start Date Stop Date Notes Extra Depth Diabetic Shoes w ith 3 Pair Custom heat-molded multi-density innersoles for 1 year Dx: Next Appt Details Follow Up: 3 Months, Reason: Procedure Notes * Category Sub-Category Detail Notes Debride Nail 6-10 Nail debridement Nail debridem ent performed extensively to reduce/remove overall nail length and girth, subungual debris, and necrotic tissue, by manual and electrical means with use of a nail nipper and/or dremel, to more viable healthy nail plate or bed tissue 6-10. Silver nitrate used for any petechial bleeding as necessary. Patient chooses, no pharmaceutical tx (87168) Keratoma Treatment Parring or Cutting o f Benign Hyperkeratotic Lesion(s) 14780 (2-4 Lesions) - The Benign hyperkeratotic lesions, as described above were pared, and/or cut utilizing a sterile #15 blade, tissue nippers, and/or dremel, Q7 Progress Notes * Shashank FREGOSO JrDOB:[birth year] (74 yo M)Acc No.[id number]:05/09/2024 Progress Note Patient:?Shashank FREGOSO r Provider:?Berry Arnold DPM :1950???Age:74 Y???Sex:Male Juan Pablo e:05/09/2024 Address:[address] [place], [place] [id number] Pcp:Ramin Medrano MD Subjective: * Chief Complaints: * ???1. Painful nail(s) aggrev ated by shoes and causing difficulty standing/walking.. * HPI: ???Painful Nails:?Pt States Last PCP Visit:?Date:?07/03/2023 * ROS:?General/Constitutional:?Nausea?denies.?Vomiting?denies.?Hunger Thirst?denies.?Loss appetite?denies.?Chills?denies.?Fatigue?denies.?Fever?denies.?Night Sweats?denies.?Unexplained weight loss?denies.?Unexplained weight gain?denies.?HEENTM:?Dentures?denies.?Dizziness?denies.?Glasses/contacts?admits.?Retinopathy?de nies.?Blurred/double vision?denies.?TMJ?denies.?Discharge/drainage?denies.?Implants?denies.?Sore throat?denies.?Dental implants?denies.?Hard of hearing ?denies.?Difficulty chewing/swallowing/speaking?denies.?Nose bleeds?denies.?Sore mouth?denies.?Respiratory:?On Oxygen?denies.?Pneumonia/pleurisy?denies.?Bronchitis?denies.?Emphysema?denies.?C oughing?admits.?Cough blood?denies.?Shortness of breath?denies.?Wheezing?denies.?Cardiovascular:?Pacemaker?denies.?MVP?denies.?WPW?denies.?CHF?denies.?Heart attack?denies.?Septal defect?denies.?Rapid beat?denies.?Chest pain ?denies.?Atrial Fib.?admits.?Murmur/Palpitations?admits.?Gastrointestinal:?Hemorrhoids?denies.?Stomach/Abdominal pain?denies.?Dark blood stool?denies.?Irritable bowel ?denies.?Constipation?denies.?Diarrhea?denies.?Hematology:?Swelling?admits.?Clots?denies.?Varicose Veins?denies.?Bruising?denies.?Bleeding problem?denies.?Genitourinary:?Blood urine?denies.?Frequent/Painfu/urination/bladder control?denies.?Kidney stones?denies.?Infection (UTI)?denies.?Nephropathy?admits.?sex trans dis (STD)?denies.?Prostate?denies.?Musculoskeletal:?Hammertoes?denies.?Bunions?admits.?Back Pain?denies.?Muscle Cramps/ Resting?denies.?Muscle cramps / walking?denies.?Generalized aches and pains?denies.?Weakness?denies.?Integ.:?Sawyer?denies.?Scars?denies.?Corns/calluses?admits.?Ingrown nails?denies.?Painful nails?denies.?Open Sores?denies.?Rashes?denies.?Neurologic:?Difficulty sleeping?denies.?Brain disorder?denies.?Numbness?admits.?Balance trouble?denies.?Confusion?denies.?Fainting/blackouts?denies.?Tingling?admits.?Tr emors?denies.? * Medical History:? Objective: * Vitals:? * Examination: ???Neurological: ?SENSORY:? Neurological exam demonstrates, reduced vibration sensation, reduced light touch sensation, reduced sharp/dull pin prick discrimination , 5.07 monofilament test performed at plantar aspects of 5 varied sites per foot shows sensation, reduced , B/L, at Forefoot, at Midfoot.?Vascular: ?DP PULSES (B):? 1/4, B/L.?PT PULSES (B):? 2/4, B/L.?EDEMA (C):? 1/4, B/L, Feet, Feet, Leg(s).?Nails: ?NAILS are:?Elongated, overgrown, dystrophic, lytic, greater than 3mm thick, discolored and friable with crumbly malodorous subungual debris, with dull to no pain on palpation due to neuropathy, , T3, T4, T5, T6, T7, T9.?General Examination: ?GENERAL APPEARANCE:?Reveals a pleasant, alert, well nourished, well developed, well hydrated individual, who demonstrates proper attention to hygene/body habitus, and is in no acute distress.?ORIENTED:?person, place, and time.?FOOT EXAM:?Orthopedic: ?MUSCLE STRENGTH:?5/5 all groups in a symmetrical fashion , B/L.?FOOT MORPHOLOGY:? Pes Planus structure, B/L.?DIGITAL DEFORMITIES:? Amputation T7, ta, t2 and partial t1, Digital contracture, of all other toes, B/L, non-reducable with WB or to push-up test, no over, nor underlapping.?Dermatologic: ?SKIN FINDINGS:? Skin exam reveals Keratotic lesion(s) located at, T3, T6, Plantar, Skin exam reveals Keratotic lesion(s) located at, Plantar, Midfoot, Left , Plantar, IPJ, T5, Plantar, Heel(s), B/L .?Ophthalmology Referral: ?DIABETES EYE EXAM? Assessment: * Assessment: 1.?Type 2 diabetes mellitus with diabetic polyneuropathy - E11.42???2.?Pain in right toe(s) - M79.674???3.?Tinea unguium - B35.1 (Primary)???4.?Pain in left toe(s) - M79.675???5.?Hammertoe of left foot - M20.42???6.?Xerosis cutis - L85.3??? Plan: * Treatment: * Procedures:?Debride Nail 6-10:?Nail debridement?Nail debridement performed extensively to reduce/remove overall nail length and girth, subungual debris, and necrotic tissue, by manual and electrical means with use of a nail nipper and/or dremel, to more viable healthy nail plate or bed tissue 6-10. Silver nitrate used for any petechial bleeding as necessary. Patient chooses, no pharmaceutical tx (43816).?Keratoma Treatment:?Parring or Cutting of Benign Hyperkeratotic Lesion(s)?57641 (2-4 Lesions) - The Benign hyperkeratotic lesions, as described above were pared, and/or cut utilizing a sterile #15 blade, tissue nippers, and/or dremel, Q7.? * Procedure Codes:?51016 DEBRI DE NAIL, 6 OR MORE, Modifiers: XS , 27445 TRIM SKIN LESIONS, OVER 4, Modifiers: XS * Follow Up:?3 Months * Images: * The named appointment provid er may or may not be the originator of this progress note, and it is not deemed complete until electronically signed by the appointment provider. Sign off status: Pending * Provider:?Berry Arnold DPM Date:? 024 Generated for Gaurang luz/Carmen/Peterson on:?11/07/2024 01:23 AM EST History and Physical Notes * HPI (History of Present Illness) Category Sub-Category Detail Notes Category Not es Painful Nails Pt States Last PCP Visit: Date:: 07/03/2023 Examination Category Sub-Category Detail Notes Category Not es Neurological SENSORY: Neurological exa m demonstrates, reduced vibration sensation, reduced light touch sensation, reduced sharp/dull pin prick discrimination , 5.07 monofilament test performed at plantar aspects of 5 varied sites per foot shows sensation, reduced , B/L, at Forefoot, at Midfoot Dermatologic SKIN FINDINGS: Skin exam reveal s Keratotic lesion(s) located at, T3, T6, Plantar, Skin exam reveals Keratotic lesion(s) located at, Plantar, Midfoot, Left , Plantar, IPJ, T5, Plantar, Heel(s), B/L Orthopedic FOOT MORPHOLOGY: Pes Planus structure, B/ L DIGITAL DEFORMITIES: Amputation T7, ta, t2 and partial t1, Digital contracture, of all other toes, B/L, non-reducable with WB or to push-up test, no over, nor underlapping MUSCLE STRENGTH: 5/5 all groups in a symmetrical fashion , B/L General Examination GENERAL APPEARANCE: Reveals a pleasant, alert, well nourished, well developed, well hydrated individual, who demonstrates proper attention to hygene/body habitus, and is in no acute distress FOOT EXAM: Lower Extremity Neurological Exa m performed:: Yes Visual exam of foot performed:: Yes Date: 06/17/2023 Sensory testing performed:: sensations d iminished Pedal pulse taking performed:: 2+ ORIENTED: person, place, and t carlos Ophthalmology Referral DIABETES EYE EXAM Diabetic Retinopa thy Screening:: No Findings of Diabetic Eye Exam:: no retin opathy Vascular DP PULSES (B): 1/4, B/L PT PULSES (B): 2/4, B/L EDEMA (C): 1/4, B/L, Feet, Feet , Leg(s) Nails NAILS are: Elongated, overg rown, dystrophic, lytic, greater than 3mm thick, discolored and friable with crumbly malodorous subungual debris, with dull to no pain on palpation due to neuropathy, , T3, T4, T5, T6, T7, T9
--- OUTSIDE RECORDS SUMMARY | 2024-11-07 01:23 | XMS_ITS ---
Author Organization [facility] Address [address] [place] [address] Care Team Providers Care High Pressure Operator Name Role Phone Ramin Medrano MD Primary Care Provider Berry Quiles [phone] REASON FOR VISIT Painful nail(s) aggrevated by shoes and causing difficulty standing/walking., Open sore Medications Medication SIG (Take, Route, Frequency, Duration) Notes Start Date End Date Status Extra Depth Diabetic Shoes with 3 Pair Custom heat-molded multi-density innersoles for 1 year Dx: Active Clindamycin HCl 300 MG 1 capsule Orally every 6 hrs for 10 day(s) Active Encounters Encounter Location Date Provider Diagnosis [facility] [address] [place] [address] 06/08/2024 Berry Arnold Type 2 diabetes mellitus with diabetic polyneuropathy E11.42 ; Pain in right toe(s) M79.674 ; Tinea unguium B35.1 ; Pain in left toe(s) M79.675 ; Hammertoe of left foot M20.42 ; Xerosis cutis L85.3 ; Non-pressure chronic ulcer of other part of left foot with fat layer exposed L97.522 and Cellulitis of left foot L03.116 Assessments Encounter Date Diagnosis (ICD Code) Assessment Notes Treatment Notes Treatment Clinical Notes Section Notes 06/08/2024 Type 2 diabetes mellitus with diabetic polyneuropathy (ICD-10 - E11.42) 06/08/2024 Pain in right toe(s) (ICD-10 - M79.674) 06/08/2024 Tinea unguium (ICD-10 - B35.1) 06/08/2024 Pain in left toe(s) (ICD-10 - M79.675) 06/08/2024 Hammertoe of left foot (ICD-10 - M20.42) 06/08/2024 Xerosis cutis (ICD-10 - L85.3) 06/08/2024 Non-pressure chronic ulcer of other part of left foot with fat layer exposed (ICD-10 - L97.522) 06/08/2024 Cellulitis of left foot (ICD-10 - L03.116) Plan Of Treatment Medication Medication Name Sig Start Date Stop Date Notes Extra Depth Diabetic Shoes w ith 3 Pair Custom heat-molded multi-density innersoles for 1 year Dx: Clindamycin HCl 300 MG 1 capsule Orally every 6 hrs for 10 day(s) Next Appt Details Follow Up: 1 Week, Reason: Procedure Notes * Category Sub-Category Detail [...] as necessary. Patient chooses, no pharmaceutical tx (84089) Debride skin and subQ Open wound Open wound selective debridement of devitalized soft tissue, fibrin, epidermis, dermis, thru skin and subcutaneous tissue, first 20 sq cm or less, using sterile sharp dissection. Pt. deferred anesthesia. Sterile antibiotic dressing applied, Wound Care, The patient was instructed on importance of proper wound care consisting of pressure reduction, maintainance of moist wound environment, and regular debridement of devitilized tissue, The patient is to cleanse the wound with warm soapy water/peroxide/saline or betadine BID based on product availability , The patient is to apply Antibiotic Oint. to the wound and cover with a DSD , The patient was instructed to change dressings according to orders or PRN saturation, leaks , The patient was instructed to monitor and report any signs or symptoms of infection or any untoward reactions (14067), Keratoma Treatment Parring or Cutting o f Benign Hyperkeratotic Lesion(s) 03545 (2-4 Lesions) - The Benign hyperkeratotic lesions, as described above were pared, and/or cut utilizing a sterile #15 blade, tissue nippers, and/or deepali, Q7 Progress Notes * Shashank FREGOSO JrDOB:[birth year] (74 yo M)Acc No.[id number]:06/08/2024 Progress Note Patient:?Shashank FREGOSO J r Provider:?Berry Arnold DPM :1950???Age:74 Y???Sex:Male Juan Pablo e:06/08/2024 Address:[address] [place] [address], [facility] [place] Pcp:Ramin Medrano MD Subjective: * Chief Complaints: * ???1. Painful nail(s) aggrev ated by shoes and causing difficulty standing/walking.. 2. Open sore. * HPI: ???Skin problems:?Nature:?Ulcer, bleeding.?Location:?Bottom, Midfoot, Left .?Onset/Cause:?unknown; dpn.?Course:?improved.?Treatments:?compliance with wound care daily and he?started at [facility] on 01/25/24 adn seeing them weekly and also having vna services.? * ROS:?General/Constitutional:?Nausea?denies.?Vomiting?denies.?Hunger Thirst?denies.?Loss appetite?denies.?Chills?denies.?Fatigue?denies.?Fever?denies.?Night Sweats?denies.?Unexplained weight loss?denies.?Unexplained [...] at Forefoot, at Midfoot.?Vascular: ?DP PULSES (B):? 11/05, B/L.?PT PULSES (B):? 12/06, B/L.?EDEMA (C):? 11/05, B/L, Feet, Feet, Leg(s).?Nails: ?NAILS are:?Elongated, overgrown, [...] , Plantar, IPJ, T5, Plantar, Heel(s), B/L .?ULCER:?LOCATION--plantar left midfoot --plantar first cuneiform, SIZE, 18mm X 15mm X 3mm, BASE, fibro-granular, RIM, hyperkeratotic, UNDERMINING, mild, TRACKING, Sub Q with Fat layer exposed,NECROTIC TISSUE, loosely-adherent yellow slough, DRAINAGE, serous, moderate, MALODOR, absent, CALOR, absent, ERYTHEMA, mild with no pop .?Ophthalmology Referral: ?DIABETES EYE EXAM? Assessment: * Assessment: 1.?Type 2 diabetes mellitus with diabetic polyneuropathy - E11.42???2.?Pain in right toe(s) - M79.674???3.?Tinea unguium - B35.1 (Primary)???4.?Pain in left toe(s) - M79.675???5.?Hammertoe of left foot - M20.42 ??6.?Xerosis cutis - L85.3???7.?Non-pressure chronic ulcer of other part of left foot with fat layer exposed - L97.522???8.?Cellulitis of left foot - L03.116??? Plan: * Treatment: 2.?Cellulitis of left foot? Start Clindamycin HCl Capsule, 300 MG, 1 capsule, Orally, every 6 hrs, 10 day(s), 40.?? * Procedures:?Debride Nail 6-10:?Nail debridement?Nail debridement performed extensively to reduce/remove overall nail length and girth, subungual debris, and necrotic tissue, by manual and electrical means with use of a nail nipper and/or deepali to more viable healthy nail plate or bed tissue 6-10. Silver nitrate used for any petechial bleeding as necessary. Patient chooses, no pharmaceutical tx (32412).?Debride skin and subQ:?Open wound?Open wound selective debridement of devitalized soft tissue, fibrin, epidermis, dermis, thru skin and subcutaneous tissue, first 20 sq cm or less, using sterile sharp dissection. Pt. deferred anesthesia. Sterile antibiotic dressing applied, Wound Care, The patient was instructed on importance of proper wound care consisting of pressure reduction, maintainance of moist wound environment, and regular debridement of devitilized tissue, The patient is to cleanse the wound with warm soapy water/peroxide/saline or betadine BID based on product availability , The patient is to apply Antibiotic Oint. to the wound and cover with a DSD , The patient was instructed to change dressings according to orders or PRN saturation, leaks , The patient was instructed to monitor and report any signs or symptoms of infection or any untoward reactions (01081), .?Keratoma Treatment:?Parring or Cutting of Benign Hyperkeratotic Lesion(s)?19790 (2-4 Lesions) - The Benign hyperkeratotic lesions, as described above were pared, and/or cut utilizing a sterile #15 blade, tissue nippers, and/or dremel, Q7.? * Procedure Codes:?78300 DEBRI DE NAIL, 6 OR MORE, Modifiers: XS , 04734 TRIM SKIN LESIONS, OVER 4, Modifiers: XS , 52111 X-RAY EXAM OF LEFT FOOT 3V, Modifiers: 26 , LT, 17829 DEBRIDE SKIN/TISSUE, Modifiers: XS * Follow Up:?1 Week * Images: * The named appointment provid er may or may not be the originator of this progress note, and it is not deemed complete until electronically signed by the appointment provider. Sign off status: Pending * Provider:?Berry Arnold DPM Date:? 024 Generated for Gaurang luz/Carmen/Moeitting on:?11/07/2024 01:23 AM EST History and Physical Notes * HPI (History of Present Illness) Category Sub-Category Detail Notes Category Not es Skin problems Nature: Ulcer, bleeding Location: Bottom, Midfoot, Lef t Onset/Cause: unknown; dpn Course: improved Treatments: compliance with woun d care daily and he started at [facility] on 01/25/24 adn seeing them weekly and also having vna services Examination Category Sub-Category Detail Notes Category Not [...] , Plantar, IPJ, T5, Plantar, Heel(s), B/L ULCER: LOCATION--plantar le ft midfoot --plantar first cuneiform, SIZE, 18mm X 15mm X 3mm, BASE, fibro-granular, RIM, hyperkeratotic, UNDERMINING, mild, TRACKING, Sub Q with Fat layer exposed,NECROTIC TISSUE, loosely-adherent yellow slough, DRAINAGE, serous, moderate, MALODOR, absent, CALOR, absent, ERYTHEMA, mild with no pop Orthopedic FOOT MORPHOLOGY: Pes Planus structure, B/ [...] Visual exam of foot performed:: Yes Date: 01/06/2024 Sensory testing performed:: sensations d iminished Pedal [...]
--- OUTSIDE RECORDS SUMMARY | 2024-11-07 01:24 | XMS_ITS | Clinical Summary ---
Author Organization Unknown Care Team Providers Care Erosion Control Coordinator Name Role Phone SHANTI MILLER, ROCHELLE Unavailable Unavailable LADARIUS PRINTING FILM STRIPPER, HANNAH Unavailable Unavail able ELIN RITTERN, ROZINA Unavailable Unavailjayla JIMÉNEZ RN, MELISSA Unavailable Unavailable KALETINA PRINTING FILM STRIPPER, SHARRON Unavailable Unavailab le Payers Payer Name Policy Type Policy Number Effective Date Expira tion Date MEDICARE - [facility] - PD [id number] [facility] [id number] Problems Condition Name Condition Details Condition Category Status Onset Date Resolution Date Last Treatment Date Treating Clinician Comments URINARY TRACT INFECTION, SITE NOT SPECIFIED Active 07-15 00:00: 00 COVID-19 Active 07-15 00:00: 00 ESSENTIAL (PRIMARY) HYPERTENSION Active 07-15 00:00: 00 CHRONIC ATRIAL FIBRILLATION , UNSPECIFIED Active 07-15 00:00: 00 TYPE 2 DIABETES W DIABETIC PERIPHERAL ANGIOPATH W/O GANGRENE Active 07-15 00:00: 00 TYPE 2 DIABETES MELLITUS WITH DIABETIC NEUROPATHY, UNSP Active 07-15 00:00: 00 BENIGN PROSTATIC HYPERPLASIA WITH LOWER URINARY TRACT SYMP Active 07-15 00:00: 00 OTHER RETENTION OF URINE Active 07-15 00:00: 00 EDITOR GREETING CARD (CURRENT) USE OF ANTICOAGULAN TS Active 07-15 00:00: 00 MCC (CURRENT) USE OF SYSTEMIC STEROIDS Active 07-15 00:00: 00 ACQUIRED ABSENCE OF RIGHT FOOT Active 07-15 00:00: 00 ACQUIRED ABSENCE OF OTHER LEFT TOE(S) Active 07-15 00:00: 00 HISTORY OF FALLING Active 07-15 00:00: 00 Allergies, Adverse Reactions, Alerts Allergy Name Allergy Type Status Severity Reaction(s) Onset Date Inactive Date Treating Clinician Comments PENICILLIN Propensity to adverse reactions Active 07-15 16:45: 07 ERYTHROMYCIN Propensity to adverse reactions Active 07-15 16:45: 20 Medications Ordered Medication Name Filled Medication Name Start Date Stop Date Current Medication? Ordering Clinician Indication Dosage Frequency Signature (SIG) Comments Components Eliquis 5 mg tablet 1-17 00:00: 00 07-10 23:59 :00 No [id number] Per instruc tions TWICE A DAY Per instructio ns TWICE A DAY (route: oral) Med Classific ation: Hematolog ical Agents metoprolol tartrate 25 mg tablet 2-28 00:00: 00 07-10 23:59 :00 No [id number] Per instruc tions TWICE A DAY Per instructio ns TWICE A DAY (route: oral) Med Classific ation: Cardiovas cular Therapy Agents Aspirin Low Dose 81 mg tablet,anastasiya yed release 03-10 00:00: 00 07-10 23:59 :00 No [id number] 1 tablet DAILY 1 tablet DAILY (route: oral) Med Classific ation: Hematolog ical Agents B12 Active 1,000 mcg chewable tablet 03-10 00:00: 00 07-10 23:59 :00 No [id number] 1 tablet DAILY 1 tablet DAILY (route: oral) Med Classific ation: Electroly te Balance-N utritiona l Products finasteride 5 mg tablet 04-03 00:00: 00 07-10 23:59 :00 No [id number] 1 tablet DAILY 1 tablet DAILY (route: oral) Med Classific ation: Genitouri nary Therapy Flomax 0.4 mg capsule - 00:00: 00 07-10 23:59 :00 No [id number] 1 capsule BEDTIME 1 capsule BEDTIME (route: oral) Med Classific ation: Genitouri nary Therapy metoprolol tartrate 25 mg tablet 8-24 00:00: 00 01-23 23:59 :00 No [id number] 1 tablet TWICE A DAY 1 tablet TWICE A DAY (route: oral) Med Classific ation: Cardiovas cular Therapy Agents finasteride 5 mg tablet 06-23 00:00: 00 01-23 23:59 :00 No [id number] 1 tablet EVERY DAY 1 tablet EVERY DAY (route: oral) Med Classific ation: Genitouri nary Therapy terazosin 10 mg capsule 06-23 00:00: 00 01-23 23:59 :00 No [id number] 1 capsule EVERYDAY AT BEDTIME 1 capsule EVERYDAY AT BEDTIME (route: oral) Med Classific ation: Cardiovas cular Therapy Agents tamsulosin 0.4 mg capsule 06-21 00:00: 00 01-23 23:59 :00 No [id number] 1 capsule EVERYDAY AT BEDTIME 1 capsule EVERYDAY AT BEDTIME (route: oral) Med Classific ation: Genitouri nary Therapy diphenhydra mine 25 mg tablet 07-15 00:00: 00 01-23 23:59 :00 No [id number] 1 tablet 3 TIMES DAILY 1 tablet 3 TIMES DAILY (route: oral) Med Classific ation: Respirato ry Therapy Agents docusate sodium 100 mg tablet 07-15 00:00: 00 01-23 23:59 :00 No [id number] 1 tablet DAILY 1 tablet DAILY (route: oral) Med Classific ation: Gastroint estinal Therapy Agents Eliquis 5 mg tablet 07-15 00:00: 00 01-23 23:59 :00 No [id number] 1 tablet DAILY 1 tablet DAILY (route: oral) Med Classific ation: Hematolog ical Agents prednisone 20 mg tablet 07-15 00:00: 00 07-19 23:59 :00 No [id number] 1 tablet DAILY 1 tablet DAILY (route: oral) Med Classific ation: Endocrine bethanechol chloride 50 mg tablet 08-01 00:00: 00 01-23 23:59 :00 No [id number] 50 mg 2 TIMES DAILY 50 mg 2 TIMES DAILY (route: oral) Med Classific ation: Genitouri nary Therapy Immunizations Ordered Immunization Name Filled Immunization Name Date Status Comments Refusal Reason COVID-19, COVID-19 2022-01-06 00:00:00 PNEUMOCOCCAL (PPV), PPV 2020-07-09 00:00:00 Vital Signs Vital Name Observation Time Observation Value Commen ts Temperature 2022-09-02 12:41:00.000 97.9 [degF] Temperature 2022-08-26 18:06:00.000 98.6 [degF] Temperature 2022-08-19 21:08:00.000 98.6 [degF] Temperature 2022-08-12 20:40:00.000 98.6 [degF] Temperature 2022-08-06 10:24:00.000 97.9 [degF] Temperature 2022-08-05 10:22:00.000 97.8 [degF] Temperature 2022-08-01 15:28:00.000 98.6 [degF] Temperature 2022-07-31 10:13:00.000 97.9 [degF] Temperature 2022-07-23 12:11:00.000 97.9 [degF] Temperature 2022-07-22 20:01:00.000 97.5 [degF] Temperature 2022-07-15 11:25:00.000 98.9 [degF] BMI (%) 2022-07-15 11:25:00.000 23 kg/m2 Height 2022-07-15 11:25:00.000 75 [in_us] Pulse 2022-09-02 12:41:00.000 73 /min Pulse 2022-08-26 18:06:00.000 80 /min Pulse 2022-08-19 21:08:00.000 80 /min Pulse 2022-08-12 20:40:00.000 80 /min Pulse 2022-08-06 10:24:00.000 74 /min Pulse 2022-08-05 10:22:00.000 78 /min Pulse 2022-08-01 15:28:00.000 80 /min Pulse 2022-07-31 10:13:00.000 72 /min Pulse 2022-07-23 12:11:00.000 72 /min Pulse 2022-07-22 20:01:00.000 68 /min Pulse 2022-07-15 11:25:00.000 86 /min O2 Saturation (%) 2022-08-19 21:08:00.000 98 % O2 Saturation (%) 2022-08-06 10:24:00.000 98 % O2 Saturation (%) 2022-07-31 10:13:00.000 97 % O2 Saturation (%) 2022-07-23 12:11:00.000 98 % O2 Saturation (%) 2022-07-22 20:01:00.000 98 % O2 Saturation (%) 2022-07-15 11:25:00.000 98 % Respirations 2022-09-02 12:41:00.000 18 /min Respirations 2022-08-26 18:06:00.000 18 /min Respirations 2022-08-19 21:08:00.000 18 /min Respirations 2022-08-12 20:40:00.000 20 /min Respirations 2022-08-06 10:24:00.000 16 /min Respirations 2022-08-05 10:22:00.000 16 /min Respirations 2022-08-01 15:28:00.000 18 /min Respirations 2022-07-31 10:13:00.000 16 /min Respirations 2022-07-23 12:11:00.000 16 /min Respirations 2022-07-22 20:01:00.000 16 /min Respirations 2022-07-15 11:25:00.000 20 /min Weight (lbs) 2022-08-26 18:07:00.000 192 [lb_av] Weight (lbs) 2022-07-15 11:25:00.000 192 [lb_av] Systolic Blood Pressure 2022-09-02 12:41:00.000 126 mm [Hg] Systolic Blood Pressure 2022-08-26 18:06:00.000 140 mm [Hg] Systolic Blood Pressure 2022-08-19 21:08:00.000 140 mm [Hg] Systolic Blood Pressure 2022-08-12 20:40:00.000 120 mm [Hg] Systolic Blood Pressure 2022-08-06 10:24:00.000 126 mm [Hg] Systolic Blood Pressure 2022-08-05 10:22:00.000 117 mm [Hg] Systolic Blood Pressure 2022-08-01 15:28:00.000 140 mm [Hg] Systolic Blood Pressure 2022-07-31 10:13:00.000 124 mm [Hg] Systolic Blood Pressure 2022-07-23 12:11:00.000 130 mm [Hg] Systolic Blood Pressure 2022-07-22 20:01:00.000 142 mm [Hg] Systolic Blood Pressure 2022-07-15 11:25:00.000 138 mm [Hg] Diastolic Blood Pressure 2022-09-02 12:41:00.000 58 mm [Hg] Diastolic Blood Pressure 2022-08-26 18:06:00.000 74 mm [Hg] Diastolic Blood Pressure 2022-08-19 21:08:00.000 60 mm [Hg] Diastolic Blood Pressure 2022-08-12 20:40:00.000 60 mm [Hg] Diastolic Blood Pressure 2022-08-06 10:24:00.000 80 mm [Hg] Diastolic Blood Pressure 2022-08-05 10:22:00.000 72 mm [Hg] Diastolic Blood Pressure 2022-08-01 15:28:00.000 74 mm [Hg] Diastolic Blood Pressure 2022-07-31 10:13:00.000 76 mm [Hg] Diastolic Blood Pressure 2022-07-23 12:11:00.000 84 mm [Hg] Diastolic Blood Pressure 2022-07-22 20:01:00.000 68 mm [Hg] Diastolic Blood Pressure 2022-07-15 11:25:00.000 74 mm [Hg] Plan of Treatment Planned Activity Planned Date Details Comments Future Scheduled Test SKILLED NU RSE TO EVALUATE PATIENT, IDENTIFY PRIMARY AND CO-MORBID CONDITIONS CODED PER CODING GUIDELINES, AND DEVELOP PATIENT SPECIFIC PLAN OF CARE THAT INCLUDES PATIENT GOAL FOR HOME HEALTH. CLINICAL SUMMARY (SOC/ELVER/RECERT, 10 DAY, 60 DAY) THE PATIENT IS RECEIVING HOMECARE DUE TO DISEASE MANAGEMENT AND EDUCATION RECENT HOSPITALIZATION/INPATIENT ADMISSION RELATED TO: UTI AND COVID 19 NEW OR CHANGED MEDICATIONS: ORAL STERIODS PATIENT LIVING SITUATION/CAREGIVER STATUS: LIVES WITH MOTHER AND BROTHER RECENT FALLS: NONE SUMMARIZE SKILLED NEED: DISEASE MANAGEMENT AND EDUCATION ADDITIONAL DISCIPLINES NEEDED OR DECLINED ORDERED SERVICES: PT [code = SKILLED NURSE TO EVALUATE PATIENT, IDENTIFY PRIMARY AND CO-MORBID CONDITIONS CODED PER CODING GUIDELINES, AND DEVELOP PATIENT SPECIFIC PLAN OF CARE THAT INCLUDES PATIENT GOAL FOR HOME HEALTH. CLINICAL SUMMARY (SOC/ELVER/RECERT, 10 DAY, 60 DAY) THE PATIENT IS RECEIVING HOMECARE DUE TO DISEASE MANAGEMENT AND EDUCATION RECENT HOSPITALIZATION/INPATIENT ADMISSION RELATED TO: UTI AND COVID 19 NEW OR CHANGED MEDICATIONS: ORAL STERIODS PATIENT LIVING SITUATION/CAREGIVER STATUS: LIVES WITH MOTHER AND BROTHER RECENT FALLS: NONE SUMMARIZE SKILLED NEED: DISEASE MANAGEMENT AND EDUCATION ADDITIONAL DISCIPLINES NEEDED OR DECLINED ORDERED SERVICES: PT] Future Scheduled Test SKILLED NU RSE FOR O/A OF LOWER EXTREMITIES TO IDENTIFY CHANGES OR LESIONS ASSOCIATED WITH DIABETES MELLITUS FOR EARLY INTERVENTIONS OF COMPLICATIONS. SKILLED NURSE TO PROVIDE INSTRUCTION ON PROPER DIABETIC SKIN/FOOT CARE. [code = SKILLED NURSE FOR O/A OF LOWER EXTREMITIES TO IDENTIFY CHANGES OR LESIONS ASSOCIATED WITH DIABETES MELLITUS FOR EARLY INTERVENTIONS OF COMPLICATIONS. SKILLED NURSE TO PROVIDE INSTRUCTION ON PROPER DIABETIC SKIN/FOOT CARE.] Future Scheduled Test SKILLED NU RSE TO REVIEW PATIENT MEDICATIONS. INSTRUCT PATIENT/CAREGIVER ON MONITORING OF EFFECTIVENESS, ADVERSE DRUG REACTIONS, SIDE EFFECTS OF ALL MEDICATIONS (PRESCRIPTION/-OTC), AND HOW AND WHEN TO REPORT PROBLEMS. [code = SKILLED NURSE TO REVIEW PATIENT MEDICATIONS. INSTRUCT PATIENT/CAREGIVER ON MONITORING OF EFFECTIVENESS, ADVERSE DRUG REACTIONS, SIDE EFFECTS OF ALL MEDICATIONS (PRESCRIPTION/-OTC), AND HOW AND WHEN TO REPORT PROBLEMS.] Future Scheduled Test SKILLED NU RSE TO PERFORM HOME SAFETY AND FALL ASSESSMENT AND PROVIDE INSTRUCTION TO IMPLEMENT HOME SAFETY AND FALL PREVENTION STRATEGIES. [code = SKILLED NURSE TO PERFORM HOME SAFETY AND FALL ASSESSMENT AND PROVIDE INSTRUCTION TO IMPLEMENT HOME SAFETY AND FALL PREVENTION STRATEGIES.] Future Scheduled Test SKILLED NU RSE TO OBTAIN PULSE OXIMETRY MEASUREMENT PRN FOR SIGNS AND SYMPTOMS OF SHORTNESS OF BREATH, ACTIVITY INTOLERANCE AND WHEN OXYGEN IS ORDERED. [code = SKILLED NURSE TO OBTAIN PULSE OXIMETRY MEASUREMENT PRN FOR SIGNS AND SYMPTOMS OF SHORTNESS OF BREATH, ACTIVITY INTOLERANCE AND WHEN OXYGEN IS ORDERED.] Future Scheduled Test PATIENT DA SILVA S A RISK OF REHOSPITALIZATION. SKILLED NURSE TO ESTABLISH SUPPORT MEASURES TO MINIMIZE RISK OF REHOSPITALIZATION, AND INSTRUCT PATIENT/CAREGIVER ON METHODS TO REDUCE AVOIDABLE HOSPITALIZATION. [code = PATIENT HAS A RISK OF REHOSPITALIZATION. SKILLED NURSE TO ESTABLISH SUPPORT MEASURES TO MINIMIZE RISK OF REHOSPITALIZATION, AND INSTRUCT PATIENT/CAREGIVER ON METHODS TO REDUCE AVOIDABLE HOSPITALIZATION.] Future Scheduled Test SKILLED NU RSE TO PROVIDE INSTRUCTION TO PATIENT/CAREGIVER RELATED TO DISCHARGE PLANNING. [code = SKILLED NURSE TO PROVIDE INSTRUCTION TO PATIENT/CAREGIVER RELATED TO DISCHARGE PLANNING.] Future Scheduled Test SKILLED NU RSE FOR OBSERVATION AND ASSESSMENT OF PATIENTS PAIN LEVEL AND EFFECTIVENESS OF PAIN MANAGEMENT REGIMEN. SKILLED NURSE TO INSTRUCT PATIENT/CAREGIVER REGARDING PHARMACOLOGIC AND NON-PHARMACOLOGIC PAIN CONTROL MEASURES. SKILLED NURSE TO REPORT TO PHYSICIAN IF PAIN IS UNCONTROLLED WITH CURRENT PAIN MANAGEMENT REGIMEN. [code = SKILLED NURSE FOR OBSERVATION AND ASSESSMENT OF PATIENTS PAIN LEVEL AND EFFECTIVENESS OF PAIN MANAGEMENT REGIMEN. SKILLED NURSE TO INSTRUCT PATIENT/CAREGIVER REGARDING PHARMACOLOGIC AND NON-PHARMACOLOGIC PAIN CONTROL MEASURES. SKILLED NURSE TO REPORT TO PHYSICIAN IF PAIN IS UNCONTROLLED WITH CURRENT PAIN MANAGEMENT REGIMEN.] Future Scheduled Test SKILLED NU RSE FOR O/A, TEACHING AND MANAGEMENT OF BPH FOR EARLY IDENTIFICATION OF EXACERBATION OF DISEASE PROCESS [code = SKILLED NURSE FOR O/A, TEACHING AND MANAGEMENT OF BPH FOR EARLY IDENTIFICATION OF EXACERBATION OF DISEASE PROCESS] Future Scheduled Test SKILLED NU RSE FOR O/A OF RESPIRATORY SYSTEM TO IDENTIFY CHANGES ASSOCIATED WITH EXACERBATION AND TO PROVIDE SKILLED TEACHING ON MANAGEMENT OF COVID 19 RESPIRATORY DISEASE PROCESS. [code = SKILLED NURSE FOR O/A OF RESPIRATORY SYSTEM TO IDENTIFY CHANGES ASSOCIATED WITH EXACERBATION AND TO PROVIDE SKILLED TEACHING ON MANAGEMENT OF COVID 19 RESPIRATORY DISEASE PROCESS.] Future Scheduled Test SKILLED NU RSE FOR O/A OF MUSCULOSKELETAL STATUS AND TEACHING ON MEASURES TO MANAGE OSTEOMYELITIS AND TO MAINTAIN SAFETY WITH ACTIVITY [code = SKILLED NURSE FOR O/A OF MUSCULOSKELETAL STATUS AND TEACHING ON MEASURES TO MANAGE OSTEOMYELITIS AND TO MAINTAIN SAFETY WITH ACTIVITY ] Future Scheduled Test SKILLED NU RSE FOR O/A TO IDENTIFY CHANGES ASSOCIATED WITH NEUROPATHY AND PROVIDE INSTRUCTION RELATED TO SAFETY MEASURES TO PREVENT INJURY SECONDARY TO IMPAIRED NEUROLOGICAL STATUS. SKILLED NURSE TO REPORT SIGNIFICANT CHANGES OF NEUROLOGIC STATUS TO PHYSICIAN FOR EARLY INTERVENTION. [code = SKILLED NURSE FOR O/A TO IDENTIFY CHANGES ASSOCIATED WITH NEUROPATHY AND PROVIDE INSTRUCTION RELATED TO SAFETY MEASURES TO PREVENT INJURY SECONDARY TO IMPAIRED NEUROLOGICAL STATUS. SKILLED NURSE TO REPORT SIGNIFICANT CHANGES OF NEUROLOGIC STATUS TO PHYSICIAN FOR EARLY INTERVENTION.] Future Scheduled Test SKILLED NU RSE FOR O/A AND SKILLED TEACHING IN MANAGEMENT OF PERIPHERAL VASCULAR DISEASE. [code = SKILLED NURSE FOR O/A AND SKILLED TEACHING IN MANAGEMENT OF PERIPHERAL VASCULAR DISEASE.] Future Scheduled Test SKILLED NU RSE TO ASSESS PATIENT'S SKIN INTEGRITY AND INSTRUCT PATIENT/CAREGIVER ON MEASURES TO PREVENT PRESSURE ULCERS. [code = SKILLED NURSE TO ASSESS PATIENT'S SKIN INTEGRITY AND INSTRUCT PATIENT/CAREGIVER ON MEASURES TO PREVENT PRESSURE ULCERS.] Future Scheduled Test PHYSICAL T HERAPIST TO EVALUATE PATIENT FOR STRENGTHENING AND MOBILITY [code = PHYSICAL THERAPIST TO EVALUATE PATIENT FOR STRENGTHENING AND MOBILITY ] Future Scheduled Test INSTRUCTED PATIENT/CAREGIVER ON SIGNS AND SYMPTOMS, RISK FACTORS, COMPLICATIONS, AND MANAGEMENT OF ATRIAL FIBRILLATION. [code = INSTRUCTED PATIENT/CAREGIVER ON SIGNS AND SYMPTOMS, RISK FACTORS, COMPLICATIONS, AND MANAGEMENT OF ATRIAL FIBRILLATION.] Future Scheduled Test SKILLED NU RSE TO PROVIDE TEACHING ON SIGNS AND SYMPTOMS AND MANAGEMENT OF HYPERTENSION. [code = SKILLED NURSE TO PROVIDE TEACHING ON SIGNS AND SYMPTOMS AND MANAGEMENT OF HYPERTENSION.] Future Scheduled Test SKILLED NU RSE FOR O/A AND TEACHING OF DIABETIC MANAGEMENT INCLUDING SPECIFY BLOOD SUGAR MONITORING/USE OF GLUCOMETER, DIABETIC DIET, LOWER EXTREMITY SKIN INSPECTION, PROPER SKIN/FOOT CARE, AND SIGNS AND SYMPTOMS HYPO/HYPERGLYCEMIA TO REPORT AND METHODS TO MANAGE). [code = SKILLED NURSE FOR O/A AND TEACHING OF DIABETIC MANAGEMENT INCLUDING SPECIFY BLOOD SUGAR MONITORING/USE OF GLUCOMETER, DIABETIC DIET, LOWER EXTREMITY SKIN INSPECTION, PROPER SKIN/FOOT CARE, AND SIGNS AND SYMPTOMS HYPO/HYPERGLYCEMIA TO REPORT AND METHODS TO MANAGE).] Future Scheduled Test SKILLED NU RSE FOR O/A AND SKILLED TEACHING RELATED TO SIGNS AND SYMPTOMS AND MANAGEMENT OF RIGHT/LEFT GREAT TOE AMPUTATION. [code = SKILLED NURSE FOR O/A AND SKILLED TEACHING RELATED TO SIGNS AND SYMPTOMS AND MANAGEMENT OF RIGHT/LEFT GREAT TOE AMPUTATION.] Goal 2022-09-02 Patient Goal - TO GET STRONG ER Goal Provider Goal - A PLAN OF CARE WILL BE ESTABLISHED THAT MEETS PATIENT'S [facility] NEEDS AND INCLUDES PATIENT GOAL FOR HOME HEALTH. Goal Provider Goal - CHANGES IN LOWER EXTREMITIES WILL BE IDENTIFIED AND REPORTED TO MD FOR PROMPT INTERVENTION TO PREVENT ASSOCIATED RISKS THROUGHOUT THE CERTIFICATION PERIOD. PATIENT/CAREGIVER WILL VERBALIZE UNDERSTANDING OF PROPER DIABETIC SKIN/FOOT CARE BY THE END OF THE CERTIFICATION PERIOD. Goal Provider Goal - PATIENT/CAREGIVER WILL VERBALIZE UNDERSTANDING OF EDUCATION PROVIDED ON MEDICATIONS BY THE END OF THE CERTIFICATION PERIOD. Goal Provider Goal - PATIENT/CAREGIVER WILL VERBALIZE/DEMONSTRATE EFFECTIVE HOME SAFETY AND FALL PREVENTION STRATEGIES THROUGHOUT CERTIFICATION PERIOD. Goal Provider Goal - PULSE OXIMETER RESULTS OBTAINED NEEDED FOR RESPIRATORY COMPLICATIONS. Goal Provider Goal - PATIENT WILL HAVE SUPPORT MEASURES ESTABLISHED TO PREVENT REHOSPITALIZATION AND PATIENT/CAREGIVER WILL VERBALIZE/DEMONSTRATE METHODS TO REDUCE AVOIDABLE HOSPITALIZATION BY END OF CERT PERIOD Goal Provider Goal - PATIENT/CAREGIVER WILL VERBALIZE UNDERSTANDING OF DISCHARGE PLANNING INSTRUCTIONS BY DATE OF DISCHARGE. Goal Provider Goal - PATIENT/CAREGIVER WILL DEMONSTRATE UNDERSTANDING OF PHARMACOLOGIC AND NONPHARMACOLOGIC PAIN CONTROL MEASURES AND PATIENT WILL HAVE IMPROVEMENT IN PAIN INTERFERING WITH ACTIVITY EVIDENCED BY PAIN CONTROLLED AT LEVEL OF 7 OR LESS BY END OF CERTIFICATION PERIOD. Goal Provider Goal - PATIENT/CAREGIVER WILL VERBALIZE UNDERSTANDING OF GENITOURINARY DISEASE PROCESS, AND EXACERBATIONS OF GENITOURINARY DISEASE WILL BE PROMPTLY IDENTIFIED FOR EARLY INTERVENTION THROUGHOUT THE CERTIFICATION PERIOD. Goal Provider Goal - PATIENT/CAREGIVER WILL VERBALIZE/DEMONSTRATE MANAGEMENT OF RESPIRATORY DISEASE PROCESS. CHANGES IN RESPIRATORY STATUS WILL BE IDENTIFIED AND REPORTED TO PHYSICIAN FOR PROMPT INTERVENTION THROUGHOUT THE CERTIFICATION PERIOD. Goal Provider Goal - PATIENT/CAREGIVER WILL VERBALIZE/DEMONSTRATE ABILITY TO MANAGE MUSCULOSKELETAL DISEASE WHILE MAINTAINING SAFETY BY THE END OF THE EPISODE. Goal Provider Goal - CHANGES IN NEUROLOGIC STATUS WILL BE IDENTIFIED AND REPORTED TO THE PHYSICIAN FOR PROMPT INTERVENTION OF ASSOCIATED RISK. PATIENT/CAREGIVER WILL VERBALIZE/DEMONSTRATE APPROPRIATE SAFETY MEASURES TO PREVENT INJURY BY THE END OF THE CERTIFICATION PERIOD. Goal Provider Goal - PATIENT/CARGIVER WILL VERBALIZE/DEMONSTRATE THE ABILITY TO MANAGE CIRCULATORY DISEASE PROCESS AND EXACERBATIONS WILL BE IDENTIFIED FOR EARLY INTERVENTION THROUGHOUT THE CERTIFICATION PERIOD. Goal Provider Goal - PATIENT/CAREGIVER WILL VERBALIZE UNDERSTANDING OF PRESSURE ULCER PREVENTION BY THE END OF THE EPISODE. Goal Provider Goal - A PHYSICAL THERAPY EVALUATION TO BE COMPLETED WITH RECOMMENDATIONS AND/OR WRITTEN PLAN OF TREATMENT ESTABLISHED FOR PHYSICIANS SIGNATURE. Goal Provider Goal - PATIENT/CAREGIVER WILL VERBALIZE UNDERSTANDING OF SIGNS AND SYMPTOMS, COMPLICATIONS, AND MANAGEMENT OF ATRIAL FIBRILLATION BY THE END OF THE EPISODE. Goal Provider Goal - PATIENT/CAREGIVER WILL VERBALIZE SIGNS AND SYMPTOMS OF HYPERTENSION AND WILL BE ABLE TO DEMONSTRATE ABILITY TO MANAGE EXACERBATION BY THE END OF THE EPISODE. Goal Provider Goal - PATIENT/CAREGIVER WILL VERBALIZE/DEMONSTRATE KNOWLEDGE OF DIABETIC MANAGEMENT. CHANGES IN DIABETIC STATUS WILL BE IDENTIFIED AND REPORTED TO PHYSICIAN FOR PROMPT INTERVENTION THROUGHOUT THE CERTIFICATION PERIOD. Goal Provider Goal - PATIENT/CAREGIVER WILL VERBALIZE UNDERSTANDING OF MUSCULOSKELETAL DISEASE INCLUDING SIGNS AND SYMPTOMS, MANAGEMENT, AND PRESCRIBED TREATMENT REGIMEN BY END OF EPISODE. Reason for Visit INDEPENDENT IN THE HOME Encounters Start Date/Time End Date/Time Encounter Type Admission Type Attending [facility] Care Department Encounter ID Discharge Date Discharge Status Discharge Condition Discharge Reason Percent Goals Met 2022-07-15 00:00:00 2022-09-02 00:00:00 Outpatient MELISSA FREED [facility] [id number] 00:00:00 DISCHARGE TO HOME OR SELF CARE INDEPENDEN T IN THE HOME GOALS MET ( ONLY) [id number]
[2024-11-07] MEDS: 0.9 % Sodium Chloride 1,000 ML 999 ML IV (01:54)
[2024-11-07 01:58] LABS: Basophils Percent Auto 0.2 % (0-2); Eosinophils Absolute Auto 0.2 X10*3/uL (0.0-0.4); Eosinophils Percent Auto 1.4 % (0-4); Hematocrit 36.8 % (42.0-52.0); Hemoglobin 11.8 g/dl (14.0-18.0); Imm Gran Abs Auto 0.06 X10*3/uL (0.00-0.03); Imm Gran Pct Auto 0.5 % (0.0-0.4); Lymphocytes Absolute Auto 0.4 X10*3/uL (1.2-4.9); Lymphocytes Percent Auto 3.1 % (20-40); MANUAL DIFF FLAG SCAN; Mean Corpuscular HGB Conc 32.1 g/dl (31.0-36.0); Mean Corpuscular Hemoglobin 28.8 pg (27.0-33.0); Mean Corpuscular Volume 89.8 fL (80.0-98.0); Mean Platelet Volume 8.8 fL (9.4-12.4); Monocytes Absolute Auto 0.5 X10*3/uL (0.1-1.2); Neutrophils Percent Auto 90.8 % (45-73); Platelet Count 407 X10*3/uL (160-400); Red Cell Distribution Width 18.3 % (11.0-16.0); SCAN SMEAR FLAG 1; White Blood Count 13.2 X10*3/uL (4.8-10.8)
[2024-11-07] MEDS: ondansetron HCL 4 MG/2 ML VIAL IVPUSH (02:03)
[2024-11-07] MEDS: Acetaminophen 1,000 MG/100 ML PIGGYBACK 400 MG IV (02:03)
--- NOTE | 2024-11-07 02:04 | ED_ITS ---
HPI - Nausea/Vomiting/Diarrhea General Chief complaint: Nausea/Vomiting/Diarrhea Stated complaint: NAUSEA/VOMITTING Time Seen by Provider: 11/07/24 01:34 Source: patient Mode of arrival: ambulatory Limitations: no limitations History of Present Illness ED Provider: HPI Narrative: Patient recently discharge to home after 4 weeks of stay at [facility] after sacral wound infection and sepsis in [facility] with a history of C diff in the past 06/25 other residents in the shelter also had similar symptoms Related Data Home Medications ?Medication ?Instructions ?Recorded ?Confirmed lancets 28 gauge #100 ea 03/14/21 08/11/24 cholecalciferol (vitamin D3) 25 25 mcg PO DAILY 03/04/24 08/11/24 mcg (1,000 unit) tablet cyanocobalamin (vitamin B-12) 500 500 mcg PO DAILY 03/04/24 08/11/24 mcg tablet aspirin 81 mg capsule 81 mg PO DAILY 06/07/24 08/11/24 Previous Rx's ?Medication ?Instructions ?Recorded metoprolol tartrate 50 mg tablet 50 mg PO BID 90 days #180 tabs 02/08/24 apixaban 5 mg tablet (Eliquis) 5 mg PO BID #180 tabs 02/16/24 collagenase clostridium histo. 250 1 appl topical DAILY #15 grams 06/10/24 unit/gram topical ointment (Santyl) magnesium oxide 400 mg (241.3 mg 400 mg PO DAILY #90 tabs 07/12/24 magnesium) tablet nystatin 100,000 unit/gram topical 1 appl topical TID #30 grams 07/12/24 powder vancomycin 125 mg capsule See Rx Instructions .Route 07/12/24 .COMPLEX #100 caps zinc oxide 20 % topical ointment 1 appl topical TID #30 grams 07/12/24 bethanechol chloride 25 mg tablet 25 mg PO BID 90 days #180 tabs 08/11/24 finasteride 5 mg tablet 5 mg PO BEDTIME 90 days #90 tabs 08/11/24 tamsulosin 0.4 mg capsule 0.4 mg PO BEDTIME 90 days #90 caps 08/11/24 Allergies Allergy/AdvReac Type Severity Reaction Status Date / Time penicillin V Allergy Intermediate rash Verified 11/07/24 01:16 amoxicillin Allergy Unknown Verified 11/07/24 01:16 Erythromycin Allergy Intermediate diarrhea Uncoded 08/11/24 09:59 Review of Systems 2 Review of Systems: Yes all other systems are reviewed and are negative [facility] Past Medical History Medical History PAF (paroxysmal atrial fibrillation) Bacteriuria Bladder outlet obstruction Psoriasis Sepsis Elevated cholesterol Anemia BPH (benign prostatic hyperplasia) Diabetes Vitamin D deficiency Neuropathy HTN (hypertension) Chronic a-fib Amputation of great toe Osteomyelitis PVD (peripheral vascular disease) Amputation of toe of left foot Pre-diabetes History of neuropathy Arrhythmia Osteomyelitis of second toe of left foot Ulcer of left second toe Amputated toe of right foot History of heart valve abnormality Surgical History History of amputation of toe Status post amputation of toe Hx of amputation Status post ORIF of fracture of ankle Family History Family History Mother CAD (coronary artery disease) Social History Social History Household Members: Other Housing: Residential Are you a primary family day care provider to a significant other at home: No Do you presently have visiting nurse or other home services: Yes (home comfort services [facility]) Alcohol intake: never Comment: scheduled med Patient Tobacco Use Status: Never used Tobacco Smoked in Last 30 Days: No Second Hand Smoke Exposure: No Use of substances other than those prescribed or required for medical reasons: No Advance Directives: Yes Advance Directives on File: Yes Advance Directives Date on File: 08/07/20 Do you have a plan to hurt others: No Plan Nutrition Risks: No Nutritional Risk service: No Current occupational status: retired Physical Exam 2 Vital Signs: Vital Signs: Last Vital Signs Temp 98.5 F 11/07/24 04:02 Pulse 94 11/07/24 05:31 Resp 16 11/07/24 05:31 BP 110/52 L 11/07/24 05:31 Pulse Ox 96 11/07/24 05:31 O2 Del Method Room Air 11/07/24 05:31 BMI result Body Mass Index 20.0 Appearance: Alert. Oriented X3. No acute distress. Eyes: No pallor or icterus ENT: Pharynx normal. Oral Mucosa moist Neck: Normal inspection. Neck supple. CVS: Tachycardia irregularly irregular Pulses normal. Respiratory: No respiratory distress. Equal air entry bilateral, no wheezing/rales/rhonchi Abdomen: Soft and nontender. Bowel sounds are present, no mass palpable, no CVA tenderness Skin: Skin warm and dry. Normal skin color. Normal skin turgor. Sacral decub++ Extremities: No lower extremity edema. No calf tenderness Neuro: Oriented X 3. No motor deficit. No sensory deficit.No cerebellar signs , cranial nerves II-XII intact decreased muscle mass in lower extremity Medications Administered Discontinued Medications Generic Name Dose Route Start Last Admin Trade Name Freq PRN Reason Stop Dose Admin Fidaxomicin 200 mg 11/07/24 03:18 11/07/24 04:01 Fidaxomicin 200 Mg Tablet PO 11/07/24 03:19 200 mg ONCE ONE Administration Sodium Chloride 1,000 mls @ 999 mls/hr 11/07/24 01:34 11/07/24 03:30 Ns IV 11/07/24 02:34 Infused .Q1H1M ONE Infusion Acetaminophen 1,000 mg in 100 mls @ 400 mls/hr 11/07/24 01:57 11/07/24 02:20 Ofirmev IV 11/07/24 02:11 Infused ONCE ONE Infusion Metronidazole 500 mg in 100 mls @ 100 mls/hr 11/07/24 04:04 11/07/24 06:04 Flagyl IV 11/07/24 05:03 Infused ONCE ONE Infusion Lactated Ringer's 1,000 mls @ 999 mls/hr 11/07/24 04:15 11/07/24 05:04 Lr IV 11/07/24 05:15 Infused .Q1H1M CODY Infusion Ondansetron HCl 4 mg 11/07/24 01:57 11/07/24 02:03 Ondansetron Hcl 4 Mg/2 Ml Vial IVPUSH 11/07/24 01:58 4 mg ONCE ONE Administration Medical Decision Making Medical Decision Making [facility] Narrative: Patient with acute diarrhea workup showed C diff toxin negative but gene positive 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 Final culture is pending will admit patient for increased weakness and profuse diarrhea Differential Diagnosis Differential Diagnoses: The differential diagnosis associated with the presentation includes Colitis/viral/C diff Admission/Observation Consideration of admission/observation: Escalation of care including admission/observation considered Consult Healthcare Provider Management of the patient was discussed with: Hospitalist Lab Data MDM Lab Attestation statement: I reviewed the patient's lab results. 11/07/24 05:15 11/07/24 05:15 Labs: Lab Results 11/07/24 11/07/24 Range/Units 01:48 02:06 WBC 13.2 H (4.8-10.8) X10*3/uL RBC 4.10 L D (4.60-5.80) X10*6/uL Hgb 11.8 L D (14.0-18.0) g/dl Hct 36.8 L D (42.0-52.0) % MCV 89.8 (80.0-98.0) fL MCH 28.8 (27.0-33.0) pg MCHC 32.1 (31.0-36.0) g/dl RDW 18.3 H (11.0-16.0) % Plt Count 407 H D (160-400) X10*3/uL MPV 8.8 L (9.4-12.4) fL Immature Gran % (Auto) 0.5 H (0.0-0.4) % Neut % (Auto) 90.8 H (45-73) % Lymph % (Auto) 3.1 L (20-40) % Henderson % (Auto) 4.0 (2-11) % Eos % (Auto) 1.4 (0-4) % Baso % (Auto) 0.2 (0-2) % Lymph # (Auto) 0.4 L (1.2-4.9) X10*3/uL Henderson # (Auto) 0.5 (0.1-1.2) X10*3/uL Eos # (Auto) 0.2 (0.0-0.4) X10*3/uL Baso # (Auto) 0.0 (0.0-0.2) X10*3/uL Abs Immat Gran (auto) 0.06 H (0.00-0.03) X10*3/uL Absolute Neuts (auto) 12.0 H (2.0-8.3) x10*3/uL Absolute Nucleated RBC 0.000 (0.0-0.012) X10*3/uL Nucleated RBC % (auto) 0.0 (0.0-0.2) /100WBC Smear Tech's Comments VERIFIED Sodium 140 (135-145) mmol/L Potassium 4.6 D (3.3-5.1) mmol/L Chloride 104 (96-108) mmol/L Carbon Dioxide 27 (22-29) mmol/L Anion Gap 14 (12-20) BUN 54 H (9-16) mg/dL Creatinine 1.21 (0.5-1.4) mg/dL Estim Creat Clear Calc 55.9 Estimated GFR 59 Random Glucose 218 H (60-115) mg/dL Lactic Acid 2.1 H* (0.5-2.0) mmol/L Calcium 10.1 D (8.4-10.2) mg/dL Total Bilirubin 0.6 (0.0-1.0) mg/dL AST 19 (5-37) U/L ALT 9 (0-40) U/L Alkaline Phosphatase 80 (39-117) U/L Total Protein 7.9 (6.5-8.0) g/dL Albumin 3.7 (3.5-5.0) g/dL C. difficile Tox B Gene POSITIVE A* (Negative) C. difficile Toxin A&B Negative (Negative) C. difficile Interpret SEE NOTE Influenza Type A (PCR) NEGATIVE (Negative) Influenza Type B (PCR) NEGATIVE (Negative) RSV RNA Qual (PCR) NEGATIVE (Negative) SARS-CoV-2 RNA (RT-PCR) NEGATIVE (Negative) Discharge Plan Discharge Clinical Impression: Acute colitis, Diarrhea, History of Clostridioides difficile infection Patient Disposition: Admitted As Inpatient
[2024-11-07 02:15] LABS: Alanine Aminotransferase 9 U/L (0-40); Albumin Level 3.7 g/dL (3.5-5.0); Anion Gap 14 (12-20); Aspartate Amino Transferase 19 U/L (5-37); Bilirubin Total 0.6 mg/dL (0.0-1.0); Blood Urea Nitrogen 54 mg/dL (9-16); Calcium 10.1 mg/dL (8.4-10.2); Carbon Dioxide 27 mmol/L (22-29); Chloride 104 mmol/L (96-108); Creatinine Clr Calc Pharmacy 55.9; Estimated Glomerular Filt Rate 59; Glucose Random 218 mg/dL (60-115); Potassium 4.6 mmol/L (3.3-5.1); Sodium 140 mmol/L (135-145); Total Protein 7.9 g/dL (6.5-8.0)
[2024-11-07 02:17] LABS: Lactic Acid 2.1 mmol/L (0.5-2.0)
[2024-11-07 02:32] LABS: SLIDE REVIEW VERIFIED
[2024-11-07 02:33] LABS: Influenza A PCR NEGATIVE (Negative); Influenza B PCR NEGATIVE (Negative); Resp Syncy Virus RNA Qual PCR NEGATIVE (Negative); SARS COV2 PCR INHOUSE NEGATIVE (Negative)
[2024-11-07 02:35] LABS: Alkaline Phosphatase 80 U/L (39-117)
--- NOTE | 2024-11-07 02:40 | PC.NURSE ---
pt tee from home, was d/c from [facility] yesterday with [facility], they stated facility had outbreak of a GI virus. pt woke up approx 2300 reporting sudden onset n/v/d/sinus congestion. on arrival pt incontinent of diarrhea, clothes removed, niyah care provided bed linen changed, unable to obtain sample. [id number] stage 3 tunneling pressure ulcer noted to coccyx see report by MD for picture. pt had 2nd episode of liquid diarrhea, cleaned up, dressing removed froom wound and wound cleaned as well. per MD, to put rectal tube in d/t breakdown of skin. sample sent to lab. bilat iv established. ekg and labs obtained. pt at baseline per brother axox3. on arrival temp/vitals reported to MD. pt placed on cardiac monitoring. denies pain. currently resting comfortably, call aguilar within reach.
[2024-11-07 03:14] LABS: CDiff Gene PCR POSITIVE (Negative)
[2024-11-07 03:50] LABS: CDIFF Internal ctrl Dots and bkg OK (V)
[2024-11-07 03:51] LABS: CDiff Toxin Negative (Negative)
[2024-11-07 03:54] LABS: Reflex Lactate? Lactic Acid Added
[2024-11-07] MEDS: Fidaxomicin 200 MG TABLET PO ×3 (04:01→20:32)
--- NOTE | 2024-11-07 04:03 | P.HPHOSP_ITS ---
History of Present Illness Date of Service: 11/07/24 Chief Complaint: Vomiting and diarrhea This is a 74-year-old male with pertinent history of MSSA bacteremia, BPH, permanent atrial fibrillation on Eliquis, peripheral vascular disease, recurrent C diff colitis, chronic kidney disease stage III, [id number] diabetes mellitus who presents to the emergency department for evaluation of vomiting and diarrhea. Patient was recently admitted at [facility] for sepsis due to sacral wound infection and discharged to rehab facility. States he was discharged home from rehab facility after a 4 week stay. Patient started having multiple episodes of nausea and vomiting 1 day prior to presentation. He had 4 episodes of nonbloody emesis and 4 episodes of nonbloody diarrhea. Denies abdominal pain. States the residents in the correction also had similar symptoms. No fever, chills, chest pain, palpitations, shortness of breath, changes in urinary habits. In the emergency department, patient was found to be febrile with temp 100.4 degrees, leukocytosis 13.2 and C diff gene noted to be positive. Review of Systems 2 Constitutional: Constitutional: Reports fatigue and Reports malaise Cardiovascular: Cardiovascular: Reports no additional cardiovascular complaints Respiratory: Respiratory: Reports no additional respiratory complaints Gastrointestinal: Gastrointestinal: Reports diarrhea, Reports loose stools, Reports nausea and Reports vomiting Genitourinary: Genitourinary: Reports no additional male genitourinary complaints Endocrine: Endocrine: Reports fatigue [facility] Medical History PAF (paroxysmal atrial fibrillation) Bacteriuria Bladder outlet obstruction Psoriasis Sepsis Elevated cholesterol Anemia BPH (benign prostatic hyperplasia) Diabetes Vitamin D deficiency Neuropathy HTN (hypertension) Chronic a-fib Amputation of great toe Osteomyelitis PVD (peripheral vascular disease) Amputation of toe of left foot Pre-diabetes History of neuropathy Arrhythmia Osteomyelitis of second toe of left foot Ulcer of left second toe Amputated toe of right foot History of heart valve abnormality Family History Mother CAD (coronary artery disease) Surgical History History of amputation of toe Status post amputation of toe Hx of amputation Status post ORIF of fracture of ankle Social History Household Members: Other Housing: Shelter Are you a primary health care legal assistant to a significant other at home: No Do you presently have visiting nurse or other home services: Yes (home comfort services [facility]) Alcohol intake: never Comment: scheduled med Patient Tobacco Use Status: Never used Tobacco Smoked in Last 30 Days: No Second Hand Smoke Exposure: No Use of substances other than those prescribed or required for medical reasons: No Advance Directives: Yes Advance Directives on File: Yes Advance Directives Date on File: 08/07/20 Do you have a plan to hurt others: No Plan Nutrition Risks: No Nutritional Risk service: No Current occupational status: retired Meds Allergies Allergy/AdvReac Type Severity Reaction Status Date / Time penicillin V Allergy Intermediate rash Verified 11/07/24 01:16 amoxicillin Allergy Unknown Verified 11/07/24 01:16 Erythromycin Allergy Intermediate diarrhea Uncoded 08/11/24 09:59 Home Medications ?Medication ?Instructions ?Recorded ?Confirmed ?Last Taken ?Type lancets 28 gauge #100 ea 03/14/21 08/11/24 Unknown History cholecalciferol (vitamin D3) 25 25 mcg PO DAILY 03/04/24 08/11/24 07/02/24 History mcg (1,000 unit) tablet cyanocobalamin (vitamin B-12) 500 500 mcg PO DAILY 03/04/24 08/11/24 07/02/24 History mcg tablet aspirin 81 mg capsule 81 mg PO DAILY 06/07/24 08/11/24 07/02/24 History Physical Exam 2 Vital Signs and Narrative: Vital Signs: Last Vital Signs Temp 100.4 F 11/07/24 01:20 Pulse 125 H 11/07/24 01:15 Resp 16 11/07/24 01:15 BP 120/72 11/07/24 01:15 Pulse Ox 100 11/07/24 01:15 O2 Del Method Room Air 11/07/24 01:15 BMI result Body Mass Index 20.0 Elderly male lying in bed in no distress Neck supple, no JVD Irregularly irregular, S1-S2 heard Regular breath sounds bilaterally, no wheezing or crackles appreciated Abdomen soft nontender, no guarding, no rigidity Patient is awake, alert and oriented x3 ; no focal motor deficit Psych: Normal mood Results Labs 11/07/24 01:48 11/07/24 01:48 Labs: Laboratory Results - last 24 hr 11/07/24 11/07/24 01:48 02:06 MCV 89.8 MCH 28.8 MCHC 32.1 RDW 18.3 H Plt Count 407 H D MPV 8.8 L Immature Gran % (Auto) 0.5 H Neut % (Auto) 90.8 H Lymph % (Auto) 3.1 L Hughes % (Auto) 4.0 Eos % (Auto) 1.4 Baso % (Auto) 0.2 Lymph # (Auto) 0.4 L Hughes # (Auto) 0.5 Eos # (Auto) 0.2 Baso # (Auto) 0.0 Abs Immat Gran (auto) 0.06 H Absolute Neuts (auto) 12.0 H Absolute Nucleated RBC 0.000 Nucleated RBC % (auto) 0.0 Smear Tech's Comments VERIFIED Anion Gap 14 Estim Creat Clear Calc 55.9 Estimated GFR 59 Random Glucose 218 H Lactic Acid 2.1 H* Calcium 10.1 D Total Bilirubin 0.6 AST 19 ALT 9 Alkaline Phosphatase 80 Total Protein 7.9 Albumin 3.7 C. difficile Tox B Gene POSITIVE A* C. difficile Toxin A&B Negative C. difficile Interpret SEE NOTE Influenza Type A (PCR) NEGATIVE Influenza Type B (PCR) NEGATIVE RSV RNA Qual (PCR) NEGATIVE SARS-CoV-2 RNA (RT-PCR) NEGATIVE Assessment and Plan (1) Intractable vomiting: Status: Acute (2) Intractable diarrhea: Status: Acute Plan This is a 74-year-old male with pertinent history of MSSA bacteremia, BPH, permanent atrial fibrillation on Eliquis, peripheral vascular disease, recurrent C diff colitis, chronic kidney disease stage III, ezo-pesmper-vbhyjxbkc diabetes mellitus who presents to the emergency department for evaluation of vomiting and diarrhea #. Intractable vomiting and diarrhea: Meets SIRS criteria. Resuscitated with IV crystalloids. GI panel pending. C diff gene positive but toxin negative. Initiated on fidaxomicin. ID consulted from the ER. Blood culture pending. Clear liquid diet and advance as tolerated #. Ycw-[id number] diabetes mellitus with hyperglycemia: Initiating Accu-Cheks with sliding scale insulin. Last A1c 6.7, repeat #. Acute lactic acidosis due to sepsis #. Permanent atrial fibrillation: On Eliquis. Continue metoprolol #. Peripheral vascular disease: On aspirin #. Chronic normocytic anemia: Hemoglobin above transfusion threshold #. Chronic kidney disease: Creatinine at baseline. Monitor and avoid nephrotoxins #. BPH: On Flomax and finasteride Med rec pending DVT prophylaxis: Alba Full code Admit as inpatient and will require two night minimum hospital stay for antibiotics (as above), which is not possible in a lesser acute setting. Quality Stroke Does the patient have a stroke diagnosis?: No VTE Prior VTE?: No VTE Risk Level:: Medical - moderate - high VTE Device Contraindication: Treatment Not Indicated VTE Drug Contraindication: N/A - Med Ordered
[2024-11-07] MEDS: Lactated Ringers 1,000 ML 999 ML IV ×2 (04:10→12:21)
--- NOTE | 2024-11-07 04:10 | PC.NURSE ---
MD made aware of BP. LR infusing per mar.
[2024-11-07 04:59] LABS: ~Lactic Acid-LAB USE ONLY 2.9 mmol/L (0.5-2.0)
[2024-11-07] MEDS: metroNIDAZOLE/NS 500 MG/100 ML PIGGYBACK 100 MG IV (05:04)
[2024-11-07 05:44] LABS: Basophils Percent Auto 0.2 % (0-2); Eosinophils Absolute Auto 0.1 X10*3/uL (0.0-0.4); Eosinophils Percent Auto 0.9 % (0-4); Hematocrit 31.9 % (42.0-52.0); Hemoglobin 9.9 g/dl (14.0-18.0); Imm Gran Abs Auto 0.04 X10*3/uL (0.00-0.03); Imm Gran Pct Auto 0.4 % (0.0-0.4); Lymphocytes Absolute Auto 0.3 X10*3/uL (1.2-4.9); Lymphocytes Percent Auto 3.1 % (20-40); MANUAL DIFF FLAG SCAN; Mean Corpuscular Hemoglobin 28.8 pg (27.0-33.0); Mean Corpuscular Volume 92.7 fL (80.0-98.0); Mean Platelet Volume 9.2 fL (9.4-12.4); Monocytes Absolute Auto 0.4 X10*3/uL (0.1-1.2); Monocytes Percent Auto 4.3 % (2-11); Neutrophils Percent Auto 91.1 % (45-73); Platelet Count 343 X10*3/uL (160-400); Red Blood Count 3.44 X10*6/uL (4.60-5.80); Red Cell Distribution Width 18.2 % (11.0-16.0); SCAN SMEAR FLAG 1; White Blood Count 9.9 X10*3/uL (4.8-10.8)
[2024-11-07 06:01] LABS: Anion Gap 14 (12-20); Blood Urea Nitrogen 50 mg/dL (9-16); Calcium 8.6 mg/dL (8.4-10.2); Carbon Dioxide 22 mmol/L (22-29); Chloride 107 mmol/L (96-108); Creatinine Clr Calc Pharmacy 61.5; Estimated Glomerular Filt Rate > 60; Glucose Random 301 mg/dL (60-115); Potassium 4.6 mmol/L (3.3-5.1); Sodium 138 mmol/L (135-145)
[2024-11-07 06:41] LABS: Reflex Lactate? 2 Y
[2024-11-07 07:09] LABS: Estimated Average Glucose 114 mg/dL; Hemoglobin A1c % 5.6 % (<6.0); Total Hemoglobin (HGBA1C) 2557.0728 umol/L
[2024-11-07 07:30] LABS: Glucose, Whole Blood 136 mg/dL (60-115)
[2024-11-07] MEDS: 0.9 % Sodium Chloride Flush 3 ML SYRINGE IVFLUSH ×3 (07:36→20:34)
--- NOTE | 2024-11-07 08:00 | PC.NURSE ---
This RN and second RN did full bed change with new linens and cleaned pt. Rectal tube placement confirmed with no output, MD aware.
[2024-11-07 09:22] LABS: ~Lactic Acid-LAB USE ONLY 1.8 mmol/L (0.5-2.0)
[2024-11-07 10:49] LABS: Adenovirus F 40/41 Not Detected (Not Detect.); Astrovirus Not Detected (Not Detect.); Campylobacter Not Detected (Not Detect.); Cryptosporidium Not Detected (Not Detect.); Cyclospora cayetanensis Not Detected (Not Detect.); E. coli EAEC Not Detected (Not Detect.); E. coli EPEC Not Detected (Not Detect.); E. coli ETEC Not Detected (Not Detect.); E. coli STEC Not Detected (Not Detect.); Entamoeba histolytica Not Detected (Not Detect.); Giardia lamblia Not Detected (Not Detect.); Plesiomonas shigelloides Not Detected (Not Detect.); Rotavirus A Not Detected (Not Detect.); Salmonella Not Detected (Not Detect.); Sapovirus Not Detected (Not Detect.); Shigella sp./EIEC Not Detected (Not Detect.); Vibrio Not Detected (Not Detect.); Vibrio Cholerae Not Detected (Not Detect.); Yersinia enterocolitica Not Detected (Not Detect.)
[2024-11-07 11:52] LABS: Glucose, Whole Blood 136 mg/dL (60-115)
--- NOTE | 2024-11-07 12:14 | PHA.MEDREC ---
Addendum entered by Vijaya Frederick RPh 11/07/24 12:26: Reviewed by [facility] Original Note: Pharmacy Consult ? Medication Reconciliation Pharmacy has completed the medication reconciliation. Utilized list from [facility] to confirm med list.
[2024-11-07 12:45] LABS: Lactic Acid 2.8 mmol/L (0.5-2.0)
[2024-11-07] MEDS: Albumin Human 25 % 100 ML 133.33 ML IV ×2 (13:31→14:14)
[2024-11-07 14:17] LABS: Reflex Lactate? Lactic Acid Added
--- NOTE | 2024-11-07 14:31 | HO.SKINPHOTO ---
Location: coccyx perineal
--- NOTE | 2024-11-07 14:43 | PM.EVENT ---
Event Note Date of Service: 11/07/24 Event Note: Chart reviewed patient examined. C diff refractory. Presents to floor with some relative hypotension and tachycardia. Given bolus of 1 L of lactated Ringer's 2 bottles of albumin with improvement in pressure. Otherwise agree with H&P and plan as outlined Time Spent With Patient Time: Total time managing care of this patient today ____ minutes.
[2024-11-07 15:14] LABS: ~Lactic Acid-LAB USE ONLY 2.5 mmol/L (0.5-2.0)
--- NOTE | 2024-11-07 15:35 | MHC.CLN ---
NUTRITION CONSULT 11/07. DIET=CL. +C-DIFF. ADDING ENSURE CLEAR TID. PROVIDES 720 KCALS, 24 G PROTEIN. SIGNIFICANT WEIGHT LOSS X 6 MONTHS, -14.9%. COMPLETE NUTRITION ASSESSMENT TO FOLLOW.
--- NOTE | 2024-11-07 15:38 | HO.WOUND ---
Wound Consult: Initial 74yr old male [place] [facility] [place] - See progress notes and H&P for detailed history.? Wound consult placed for Coccyx wound POA.? Patient agreeable to assessment and photo documentation.? Patient reports he has had the wound for sometime and resulted after a stay at an outside facility. He reports the wound was significantly larger in past suspect stage 4, however at this time wound bed with adherent slough will stage as unstageable at this time - of note depth is approximately 2cm. Coccyx Etiology: ?Unstageable Pressure injury ?Present on Admission Measurements: 2cm x 3cm x 2cm Wound Bed: Adherent yellow slough Drainage / Odor: delvalle drainage - no odor noted Edges: ? macerated and epibole and irregluar Maryuri wound: ?dark red blanchable tissue - MASD and maceration No Induration, Fluctuance or Warmth noted Pain: patient reports pain Goals of Treatment: Durafiber packing for moisture managment and autoytic debridement ? Recommendations: 1. Turn and Reposition every 2 hours and as needed for patient comfort.? Use pillows or wedges to support off loading positions. 2. Off Load all bony prominences with use of pillows and heel boots if needed.? Apply Preventative foams where needed. ? 3. Monitor for incontinence and moisture control, use barrier creams when needed for prevention and treatment. 4. Provide adequate and supplemental nutrition.? 5. Order low air loss mattress. 6. When applicable maintain blood glucose levels per Providers order. 7. Coccyx - Off Load Pressure with Q2hr turns and pillows. Cleanse and irrigate with NS, pat dry. Apply skin prep to periwound. Lightly pack wound bed with Durafiber Ag, fill space, cover with foam dressing. Change every other day and PRN. Re-consult wound care Nurse for wound deterioration or wound changes.
[2024-11-07 16:15] LABS: Glucose, Whole Blood 155 mg/dL (60-115)
--- NOTE | 2024-11-07 16:30 | W.PM.IDCN ---
History of Present Illness Data of Consult Service Date: 11/07/24 Requesting physician: Bart Lopez Primary Care Provider: Ramin Medrano MD HPI Reason for consult: recurrent Cdiff He presents with diarrhea,watery for last two to three days. He has no fever or chills. He was at Rehab and roommate apparently had norovirus. He has positive Cdiff. He had been at [facility] and treated for decubitus sepsis. I had seen him in July and he was supposed to be on chronic Cdiff preventive rx with Vancomycin 125 mg every ,,Thursday but apparently stopped taking it. Review of Systems Review of Systems: Yes Unobtainable due to mental condition [facility] Past Medical History Medical History (Updated 11/07/24 @ 16:36 by Danisha Gomez MD) PAF (paroxysmal atrial fibrillation) Bacteriuria Bladder outlet obstruction Psoriasis Sepsis Elevated cholesterol Anemia BPH (benign prostatic hyperplasia) Diabetes Vitamin D deficiency Neuropathy HTN (hypertension) Chronic a-fib Amputation of great toe Osteomyelitis PVD (peripheral vascular disease) Amputation of toe of left foot Pre-diabetes History of neuropathy Arrhythmia Osteomyelitis of second toe of left foot Ulcer of left second toe Amputated toe of right foot History of heart valve abnormality Family History Family History Mother CAD (coronary artery disease) Family history: reviewed and not pertinent Surgical History Surgical History History of amputation of toe Status post amputation of toe Hx of amputation Status post ORIF of fracture of ankle Social History Social History Household Members: Family Household Members Other:: Bother Housing: House Are you a primary workforce investment act career manager to a significant other at home: No Do you presently have visiting nurse or other home services: Yes (living Nurse) Alcohol intake: never Comment: scheduled med Patient Tobacco Use Status: Never used Tobacco Second Hand Smoke Exposure: No Advance Directives Date on File: 08/07/20 service: No Current occupational status: retired Meds Allergies Allergy/AdvReac Type Severity Reaction Status Date / Time penicillin V Allergy Intermediate rash Verified 11/07/24 01:16 amoxicillin Allergy Unknown Verified 11/07/24 01:16 Erythromycin Allergy Intermediate diarrhea Uncoded 08/11/24 09:59 Active Medications: Current Medications Acetaminophen (Acetaminophen 325 Mg Tablet) 650 mg PO Q6H PRN PRN Reason: Pain, Mild 1-3,fever,headache Calcium Carbonate (Calcium Carbonate 750 Mg Tab.Chew) 750 mg PO Q4H PRN PRN Reason: Heartburn Fidaxomicin (Fidaxomicin 200 Mg Tablet) 200 mg PO Q12H [facility] Last Admin: 11/07/24 08:06 Dose: 200 mg Glucose (Glucose Gel 15 Gm Gel..Gram.) 15 gm PO Q15M PRN; Protocol PRN Reason: per Hypoglycemia Standing Ord. Dextrose (D10) 250 mls @ 750 mls/hr IV Q15M PRN; Protocol PRN Reason: per Hypoglycemia Standing Ord. Insulin Human Lispro (Insulin Lispro 100 Unit/Ml 3 Ml Vial) 0 unit SUBCUT QIDACHS [facility]; Protocol Last Admin: 11/07/24 11:53 Dose: Not Given Magnesium Hydroxide (Milk Of Magnesia 30 Ml Oral.Susp) 30 ml PO DAILY PRN PRN Reason: Constipation Melatonin (Melatonin 3 Mg Tablet) 6 mg PO BEDTIME PRN PRN Reason: Insomnia Ondansetron HCl (Ondansetron Hcl 4 Mg/2 Ml Vial) 4 mg IVPUSH Q8H PRN PRN Reason: Nausea and Vomiting Sodium Chloride (0.9 % Sodium Chloride Flush 3 Ml Syringe) 3 ml IVFLUSH QSHIFT [facility] Last Admin: 11/07/24 15:26 Dose: 3 ml Home Medications ?Medication ?Instructions ?Recorded ?Confirmed ?Last Taken ?Type lancets 28 gauge #100 ea 03/14/21 08/11/24 Unknown History acetaminophen 325 mg tablet 650 mg PO Q4H PRN Fever Or Pain 11/07/24 11/07/24 Unknown History amiodarone 200 mg tablet 200 mg PO DAILY 11/07/24 11/07/24 Unknown History bisacodyl 10 mg rectal suppository 10 mg LA DAILY PRN Constipation 11/07/24 11/07/24 Unknown History dapagliflozin propanediol 10 mg 10 mg PO DAILY 11/07/24 11/07/24 Unknown History tablet (Farxiga) folic acid 1 mg tablet 1 mg PO DAILY 11/07/24 11/07/24 Unknown History glucagon 1 mg/0.2 mL subcutaneous 1 mg subcut Q15M PRN loww sugar 11/07/24 11/07/24 Unknown History solution insulin glargine 100 unit/mL 12 unit subcut BEDTIME 11/07/24 11/07/24 Unknown History subcutaneous solution insulin lispro 100 unit/mL 2 - 10 sliding scale dose subcut 11/07/24 11/07/24 Unknown History subcutaneous solution TID magnesium hydroxide 400 mg/5 mL 30 ml PO BEDTIME PRN Constipation 11/07/24 11/07/24 Unknown History oral suspension (Milk of Magnesia) metoprolol tartrate 25 mg tablet 25 mg PO BID 11/07/24 11/07/24 Unknown History midodrine 10 mg tablet 10 mg PO Q8H PRN sbp < 90 11/07/24 11/07/24 Unknown History potassium chloride 8 mEq 8 meq PO BID 11/07/24 11/07/24 Unknown History capsule,extended release sodium phosphates 19 gram-7 118 ml LA DAILY PRN Constipation 11/07/24 11/07/24 Unknown History gram/118 mL enema (Fleet Enema) thiamine HCl (vitamin B1) 100 mg 100 mg PO DAILY 11/07/24 11/07/24 Unknown History tablet Physical Exam Vital Signs: Vital Signs: Last Vital Signs Temp 97.8 F 11/07/24 15:37 Pulse 107 H 11/07/24 15:37 Resp 16 11/07/24 15:37 BP 122/51 L 11/07/24 15:37 Pulse Ox 98 11/07/24 15:37 O2 Del Method Room Air 11/07/24 15:37 BMI result Body Mass Index 21.1 Psych: Other: sleepy Results Labs 11/07/24 05:15 11/07/24 05:15 Labs: Short CBC 11/07/24 11/07/24 Range/Units 01:48 05:15 WBC 13.2 H 9.9 (4.8-10.8) X10*3/uL Hgb 11.8 L D 9.9 L (14.0-18.0) g/dl Hct 36.8 L D 31.9 L (42.0-52.0) % Plt Count 407 H D 343 (160-400) X10*3/uL BMP 11/07/24 11/07/24 01:48 05:15 Sodium 140 138 Potassium 4.6 D 4.6 Chloride 104 107 Carbon Dioxide 27 22 BUN 54 H 50 H Creatinine 1.21 1.10 Calcium 10.1 D 8.6 D Liver Function 11/07/24 Range/Units 01:48 Total Bilirubin 0.6 (0.0-1.0) mg/dL AST 19 (5-37) U/L ALT 9 (0-40) U/L Alkaline Phosphatase 80 (39-117) U/L Albumin 3.7 (3.5-5.0) g/dL Assessment and Plan (1) History of Clostridioides difficile infection: Status: Acute (2) Diarrhea: Status: Acute (3) Sepsis: Status: Acute Plan Cdiff sepsis cause Po Vancomycin 125 mg tid for 10 days and then taper as previous. Do not stop ,continue at 125 mg ,,Thu IV Flagyl if not improving.
[2024-11-07 16:40] LABS: Reflex Lactate? 2 Y
[2024-11-07] MEDS: Insulin Lispro 100 UNIT/ML 3 ML VIAL SUBCUT (17:01)
[2024-11-07 17:52] LABS: ~Lactic Acid-LAB USE ONLY 2.7 mmol/L (0.5-2.0)
[2024-11-07 20:36] LABS: Glucose, Whole Blood 119 mg/dL (60-115)
[2024-11-08 05:13] VITALS: BP 114/59; PULSE 95; RESP 18; TEMP 36.6; O2SAT 98
[2024-11-08 07:20] LABS: Glucose, Whole Blood 115 mg/dL (60-115)
[2024-11-08 07:38] VITALS: BP 101/52; PULSE 86; RESP 16; TEMP 37.1; O2SAT 100
[2024-11-08] MEDS: 0.9 % Sodium Chloride Flush 3 ML SYRINGE IVFLUSH ×2 (08:24→15:51)
[2024-11-08] MEDS: vancomycin HCL 125 MG CAPSULE PO ×3 (08:24→21:24)
--- NOTE | 2024-11-08 08:29 | MHC.IC ---
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
--- NOTE | 2024-11-08 09:15 | MHC.CM.PN ---
Patient lives in a home w/ his brother and a live-in caregiver. Ambulates w/ cane, walker PRN. DC'd from [facility] on 11/05 and was schedule for SOC with [facility] today for SN (wound care) and PT. Reports they are working w/ [facility] for additional supports. Referral sent via [facility] to follow up. PCP Ramin Medrano MD HCP on file and verified. IMM delivered. DP: Goal is home w/ brother/caregiver, start services w/ [facility]. Brother to transport. CM will continue to follow.
[2024-11-08 11:14] LABS: Glucose, Whole Blood 109 mg/dL (60-115)
[2024-11-08 11:59] VITALS: BMI 21.1
[2024-11-08 14:43] LABS: Norovirus Stool PCR DETECTED
--- NOTE | 2024-11-08 14:53 | P.PNIM_ITS ---
Subjective Subjective Date of Service: 11/08/24 Interval History: Continues to stool. No blood noted Review of Systems Denies chest pain Denies shortness of breath Denies fever and chills Admits to diarrhea without nausea and vomiting Physical Exam 2 Vital Signs: Vital Signs: Last Vital Signs Temp 98.7 F 11/08/24 07:38 Pulse 86 11/08/24 07:38 Resp 16 11/08/24 07:38 BP 101/52 L 11/08/24 07:38 Pulse Ox 100 11/08/24 07:38 O2 Del Method Room Air 11/08/24 07:38 BMI result Body Mass Index 21.1 Objective Data Active Medications Acetaminophen (Acetaminophen 325 Mg Tablet) 650 mg PO Q6H PRN PRN Reason: Pain, Mild 1-3,fever,headache Calcium Carbonate (Calcium Carbonate 750 Mg Tab.Chew) 750 mg PO Q4H PRN PRN Reason: Heartburn Glucose (Glucose Gel 15 Gm Gel..Gram.) 15 gm PO Q15M PRN; Protocol PRN Reason: per Hypoglycemia Standing Ord. Dextrose (D10) 250 mls @ 750 mls/hr IV Q15M PRN; Protocol PRN Reason: per Hypoglycemia Standing Ord. Insulin Human Lispro (Insulin Lispro 100 Unit/Ml 3 Ml Vial) 0 unit SUBCUT QIDACHS [facility]; Protocol Last Admin: 11/08/24 11:23 Dose: Not Given Documented By: BAO Non-Admin Reason: No Insulin Coverage Magnesium Hydroxide (Milk Of Magnesia 30 Ml Oral.Susp) 30 ml PO DAILY PRN PRN Reason: Constipation Melatonin (Melatonin 3 Mg Tablet) 6 mg PO BEDTIME PRN PRN Reason: Insomnia Ondansetron HCl (Ondansetron Hcl 4 Mg/2 Ml Vial) 4 mg IVPUSH Q8H PRN PRN Reason: Nausea and Vomiting Sodium Chloride (0.9 % Sodium Chloride Flush 3 Ml Syringe) [facility] Admin: 11/08/24 08:24 Dose: 3 ml Documented By: BAO Vancomycin HCl (Vancomycin Hcl 125 Mg Capsule) 125 mg PO Q6H [facility] Stop: 11/18/24 07:14 Last Admin: 11/08/24 14:21 Dose: 125 mg Documented By: BAO Labs 11/07/24 05:15 11/07/24 05:15 Labs: Laboratory Results - last 24 hr 11/07/24 11/07/24 11/07/24 02:06 14:37 16:11 POC Glucose 155 H Lactic Acid F/U @ 2Hr 2.5 H* Lactic Acid F/U @ 4Hr Stool Norovirus (PCR) DETECTED 11/07/24 11/07/24 11/08/24 17:11 20:32 07:11 POC Glucose 119 H 115 Lactic Acid F/U @ 2Hr Lactic Acid F/U @ 4Hr 2.7 H* Stool Norovirus (PCR) 11/08/24 11:02 POC Glucose 109 Lactic Acid F/U @ 2Hr Lactic Acid F/U @ 4Hr Stool Norovirus (PCR) Microbiology Microbiology Results: Microbiology 11/07/24 12:14 Blood Culture - Preliminary Blood - Venous No growth after 24 hours. 11/07/24 12:14 Blood Culture - Preliminary Blood - Venous No growth after 24 hours. 11/07/24 01:51 Blood Culture - Preliminary Blood - Venous No growth after 24 hours. 11/07/24 01:48 Blood Culture - Preliminary Blood - Venous No growth after 24 hours. Assessment and Plan (1) History of Clostridioides difficile infection: Status: Acute (2) Norovirus: Status: Acute Plan This is a 74-year-old male with pertinent history of MSSA bacteremia, BPH, permanent atrial fibrillation on Eliquis, peripheral vascular disease, recurrent C diff colitis, chronic kidney disease stage III, gdd-alldayk-rqobjmytb diabetes mellitus who presents to the emergency department for evaluation of vomiting and diarrhea. Specimens positive for C diff and norovirus 1.CDiff/Norovirus -continue vancomycin q.i.d.(12/09) -positive for norovirus today -we will add IV Flagyl -continue volume repletion 2.Uta-slzzjao-yarzeahwx diabetes mellitus -acceptable control on current therapies -lispro correctional scale 3.Permanent atrial fibrillation -acceptable rate control on current therapies -continue Eliquis -adjust therapies as clinically indicated 4.Chronic kidney disease -at baseline -follow renals/divalents Eliquis Full code Patient will require ongoing hospitalization for IV fluids to treat diarrhea secondary to C diff and norovirus Quality Stroke Does the patient have a stroke diagnosis?: No VTE Prior VTE?: No VTE Risk Level:: Medical - moderate - high VTE Device Contraindication: Treatment Not Indicated VTE Drug Contraindication: N/A - Med Ordered
[2024-11-08 15:04] VITALS: BP 118/69; PULSE 97; RESP 16; TEMP 36.3; O2SAT 98
[2024-11-08] MEDS: metroNIDAZOLE/NS 500 MG/100 ML PIGGYBACK 100 MG IV ×2 (15:51→21:24)
[2024-11-08] MEDS: Lactated Ringers 1,000 ML 100 ML IVCONT (15:51)
[2024-11-08 16:18] LABS: Glucose, Whole Blood 189 mg/dL (60-115)
[2024-11-08] MEDS: Insulin Lispro 100 UNIT/ML 3 ML VIAL SUBCUT (17:26)
[2024-11-08 18:57] VITALS: BP 102/68; PULSE 117; RESP 16; TEMP 36.6; O2SAT 96
[2024-11-08 20:51] LABS: Glucose, Whole Blood 144 mg/dL (60-115)
[2024-11-09] MEDS: vancomycin HCL 125 MG CAPSULE PO ×4 (00:34→19:42)
[2024-11-09 04:00] VITALS: BP 119/55; PULSE 72; RESP 16; TEMP 36.3; O2SAT 94
[2024-11-09 05:57] LABS: MANUAL DIFF FLAG NO
[2024-11-09 06:16] LABS: Alanine Aminotransferase 9 U/L (0-40); Albumin Level 3.2 g/dL (3.5-5.0); Alkaline Phosphatase 54 U/L (39-117); Anion Gap 11 (12-20); Aspartate Amino Transferase 25 U/L (5-37); Blood Urea Nitrogen 16 mg/dL (9-16); Calcium 8.6 mg/dL (8.4-10.2); Carbon Dioxide 22 mmol/L (22-29); Chloride 106 mmol/L (96-108); Creatinine Clr Calc Pharmacy 83.6; Estimated Glomerular Filt Rate > 60; Glucose Fasting 135 mg/dL (60-99); Potassium 3.5 mmol/L (3.3-5.1); Sodium 135 mmol/L (135-145)
[2024-11-09 06:17] LABS: Basophils Percent Auto 0.1 % (0-2); Eosinophils Absolute Auto 0.1 X10*3/uL (0.0-0.4); Eosinophils Percent Auto 0.7 % (0-4); Hematocrit 26.9 % (42.0-52.0); Hemoglobin 8.6 g/dl (14.0-18.0); Imm Gran Abs Auto 0.03 X10*3/uL (0.00-0.03); Imm Gran Pct Auto 0.4 % (0.0-0.4); Lymphocytes Absolute Auto 1.5 X10*3/uL (1.2-4.9); Lymphocytes Percent Auto 19.6 % (20-40); Mean Corpuscular Hemoglobin 28.7 pg (27.0-33.0); Mean Corpuscular Volume 89.7 fL (80.0-98.0); Mean Platelet Volume 9.2 fL (9.4-12.4); Monocytes Absolute Auto 0.4 X10*3/uL (0.1-1.2); Monocytes Percent Auto 5.4 % (2-11); Neutrophils Absolute Auto 5.5 x10*3/uL (2.0-8.3); Neutrophils Percent Auto 73.8 % (45-73); Platelet Count 295 X10*3/uL (160-400); Red Cell Distribution Width 17.9 % (11.0-16.0); White Blood Count 7.5 X10*3/uL (4.8-10.8)
[2024-11-09 07:23] VITALS: BP 141/74; PULSE 95; RESP 16; TEMP 36.7; O2SAT 95
[2024-11-09 07:29] LABS: Glucose, Whole Blood 141 mg/dL (60-115)
[2024-11-09] MEDS: metroNIDAZOLE/NS 500 MG/100 ML PIGGYBACK 100 MG IV ×3 (07:44→22:34)
[2024-11-09] MEDS: Lactated Ringers 1,000 ML 100 ML IVCONT (07:56)
--- NOTE | 2024-11-09 10:58 | MHC.CLN ---
F/U DIET ADVANCED TO FULL LIQUIDS. CHANGING SUPPLEMENT TO ENSURE TID. PROVIDES 1050 KCALS, 60 G PROTEIN. PATIENT WITH UNSTAGEABLE AREA TO COCCYX. SUPPLEMENT TO PROMOTE NUTRITIONAL STTUS AND WOUND HEALING. FOLLOW FOR DIET ADVANCEMENT, GI STATUS, INTAKE AND WOUND HEALING.
[2024-11-09 11:27] LABS: Glucose, Whole Blood 192 mg/dL (60-115)
--- NOTE | 2024-11-09 11:55 | MHC.CM.PN ---
Per MD rounds patient not medically cleared for dc. CM will continue to follow.
--- NOTE | 2024-11-09 12:12 | P.PNIM_ITS ---
Subjective Subjective Date of Service: 11/09/24 Interval History: Tolerating full liquids; wishes advancement of diet. Stool appears to be thickening Review of Systems Denies chest pain Denies shortness of breath Denies fever and chills Admits to diarrhea without nausea and vomiting Physical Exam 2 Vital Signs: Vital Signs: Last Vital Signs Temp 98.0 F 11/09/24 07:23 Pulse 95 11/09/24 07:23 Resp 16 11/09/24 07:23 BP 141/74 H 11/09/24 07:23 Pulse Ox 95 11/09/24 07:23 O2 Del Method Room Air 11/09/24 07:23 BMI result Body Mass Index 21.1 Const: Other: Awake alert no acute distress Resp: Other: Clear to auscultation bilaterally no rales rhonchi or wheezes Cardio: Other: No S4; positive S1-S2; no S3 murmurs rubs or gallops GI: Other: Soft nontender nondistended normoactive bowel sounds Extrem: Other: No edema bilaterally Psych: Other: sleepy Objective Data Active Medications Acetaminophen (Acetaminophen 325 Mg Tablet) 650 mg PO Q6H PRN PRN Reason: Pain, Mild 1-3,fever,headache Calcium Carbonate (Calcium Carbonate 750 Mg Tab.Chew) 750 mg PO Q4H PRN PRN Reason: Heartburn Glucose (Glucose Gel 15 Gm Gel..Gram.) 15 gm PO Q15M PRN; Protocol PRN Reason: per Hypoglycemia Standing Ord. Dextrose (D10) 250 mls @ 750 mls/hr IV Q15M PRN; Protocol PRN Reason: per Hypoglycemia Standing Ord. Lactated Ringer's (Lr) 1,000 mls @ 100 mls/hr IVCONT .Q10H [facility] Last Infusion: 11/09/24 11:49 Dose: 0 mls/hr Documented By: SABAS Metronidazole (Flagyl) 500 mg in 100 mls @ 100 mls/hr IV Q8H [facility] Last Infusion: 11/09/24 09:49 Dose: Infused Documented By: SABAS Insulin Human Lispro (Insulin Lispro 100 Unit/Ml 3 Ml Vial) 0 unit SUBCUT QIDACHS [facility]; Protocol Last Admin: 11/09/24 07:53 Dose: Not Given Documented By: SABAS Non-Admin Reason: No Insulin Coverage Magnesium Hydroxide (Milk Of Magnesia 30 Ml Oral.Susp) 30 ml PO DAILY PRN PRN Reason: Constipation Melatonin (Melatonin 3 Mg Tablet) 6 mg PO BEDTIME PRN PRN Reason: Insomnia Ondansetron HCl (Ondansetron Hcl 4 Mg/2 Ml Vial) 4 mg IVPUSH Q8H PRN PRN Reason: Nausea and Vomiting Sodium Chloride (0.9 % Sodium Chloride Flush 3 Ml Syringe) 3 ml IVFLUSH QSHIFT [facility] Last Admin: 11/09/24 07:58 Dose: Not Given Documented By: SABAS Non-Admin Reason: IV Running Vancomycin HCl (Vancomycin Hcl 125 Mg Capsule) 125 mg PO Q6H [facility] Stop: 11/18/24 07:14 Last Admin: 11/09/24 07:44 Dose: 125 mg Documented By: SABAS Labs 11/09/24 05:39 11/09/24 05:39 Labs: Laboratory Results - last 24 hr 11/07/24 11/08/24 11/08/24 02:06 16:06 20:42 MCV MCH MCHC RDW Plt Count MPV Immature Gran % (Auto) Neut % (Auto) Lymph % (Auto) Lyon % (Auto) Eos % (Auto) Baso % (Auto) Lymph # (Auto) Lyon # (Auto) Eos # (Auto) Baso # (Auto) Abs Immat Gran (auto) Absolute Neuts (auto) Absolute Nucleated RBC Nucleated RBC % (auto) Anion Gap Estim Creat Clear Calc Estimated GFR POC Glucose 189 H 144 H Fasting Glucose Calcium Total Bilirubin AST ALT Alkaline Phosphatase Total Protein Albumin Stool Norovirus (PCR) DETECTED 11/09/24 11/09/24 11/09/24 05:39 07:22 11:14 MCV 89.7 MCH 28.7 MCHC 32.0 RDW 17.9 H Plt Count 295 MPV 9.2 L Immature Gran % (Auto) 0.4 Neut % (Auto) 73.8 H Lymph % (Auto) 19.6 L Lyon % (Auto) 5.4 Eos % (Auto) 0.7 Baso % (Auto) 0.1 Lymph # (Auto) 1.5 Lyon # (Auto) 0.4 Eos # (Auto) 0.1 Baso # (Auto) 0.0 Abs Immat Gran (auto) 0.03 Absolute Neuts (auto) 5.5 Absolute Nucleated RBC 0.000 Nucleated RBC % (auto) 0.0 Anion Gap 11 L Estim Creat Clear Calc 83.6 Estimated GFR > 60 POC Glucose 141 H 192 H Fasting Glucose 135 H Calcium 8.6 Total Bilirubin 1.0 AST 25 ALT 9 Alkaline Phosphatase 54 Total Protein 6.0 L Albumin 3.2 L Stool Norovirus (PCR) Microbiology Microbiology Results: Microbiology 11/07/24 01:51 Blood Culture - Preliminary Blood - Venous No growth after 48 hours. 11/07/24 01:48 Blood Culture - Preliminary Blood - Venous No growth after 48 hours. 11/07/24 12:14 Blood Culture - Preliminary Blood - Venous No growth after 24 hours. 11/07/24 12:14 Blood Culture - Preliminary Blood - Venous No growth after 24 hours. Assessment and Plan (1) History of Clostridioides difficile infection: Status: Acute (2) Norovirus: Status: Acute Plan This is a 74-year-old male with pertinent history of MSSA bacteremia, BPH, permanent atrial fibrillation on Eliquis, peripheral vascular disease, recurrent C diff colitis, chronic kidney disease stage III, imx-aullzdx-husijavtl diabetes mellitus who presents to the emergency department for evaluation of vomiting and diarrhea. Specimens positive for C diff and norovirus 1.CDiff/Norovirus -continue vancomycin q.i.d.(01/06) -positive for norovirus today -we will add IV Flagyl(2) -continue volume repletion -advance diet to full liquids 2.Qii-wnuxbyo-mveewcpco diabetes mellitus -acceptable control on current therapies -lispro correctional scale 3.Permanent atrial fibrillation -acceptable rate control on current therapies -continue Eliquis -adjust therapies as clinically indicated 4.Chronic kidney disease -at baseline -follow renals/divalents Eliquis Full code Patient will require ongoing hospitalization for IV fluids to treat diarrhea secondary to C diff and norovirus Quality Stroke Does the patient have a stroke diagnosis?: No VTE Prior VTE?: No VTE Risk Level:: Medical - moderate - high VTE Device Contraindication: Treatment Not Indicated VTE Drug Contraindication: N/A - Med Ordered
[2024-11-09] MEDS: Insulin Lispro 100 UNIT/ML 3 ML VIAL SUBCUT ×3 (13:00→20:32)
[2024-11-09 13:45] LABS: Glucose, Whole Blood 157 mg/dL (60-115)
[2024-11-09 13:53] VITALS: BP 114/81; PULSE 146; RESP 18; TEMP 36.3; O2SAT 96
--- NOTE | 2024-11-09 14:00 | PC.NURSE ---
Patient had unwitnessed fall. At aprox 1335 bed alarm went off in patient room, upon entering the room MANAGER [employer]G noticed patient on the floor. Patient stated I have rolled out of bed onto the floor while trying to reposition . MANAGER [facility] called for help, Dr. Lopez at bedside with additional nursing staff. After assessment by MD patient was helped off the floor to the chair. VS stable except elevated HR at 146bpm. Assessment performed by RN, no changed since morning assessment. Rectal tube pulled out during the fall, per MD tube was not replaced. Davis catheter in place. Patient was helped to the chair for assessment and requested to stay in the recliner. Patient denied head strike stating I have rolled out on my butt No noticeable injuries. Camera placed in the room for additional monitoring. Patient already had bed/chair alarm in place. Will continue hourly rounding and monitor for possible changes/complaints. Family notified of the incident.
[2024-11-09 14:59] VITALS: BP 114/81; PULSE 146; RESP 18; TEMP 36.3; O2SAT 96
[2024-11-09 15:10] VITALS: BP 128/67; PULSE 121; RESP 24; TEMP 36.3; O2SAT 98
[2024-11-09] MEDS: 0.9 % Sodium Chloride Flush 3 ML SYRINGE IVFLUSH (15:19)
[2024-11-09 16:18] LABS: Glucose, Whole Blood 214 mg/dL (60-115)
[2024-11-09 19:01] VITALS: BP 125/77; PULSE 94; RESP 18; TEMP 36.9; O2SAT 94
[2024-11-09 19:47] LABS: Glucose, Whole Blood 197 mg/dL (60-115)
[2024-11-10] MEDS: vancomycin HCL 125 MG CAPSULE PO ×4 (01:48→18:32)
[2024-11-10] MEDS: Lactated Ringers 1,000 ML 100 ML IVCONT ×2 (02:25→12:38)
[2024-11-10 03:00] VITALS: BP 128/58; PULSE 98; RESP 18; TEMP 36.7; O2SAT 95
[2024-11-10] MEDS: metroNIDAZOLE/NS 500 MG/100 ML PIGGYBACK 100 MG IV ×3 (06:29→22:22)
[2024-11-10 06:31] LABS: Alanine Aminotransferase 6 U/L (0-40); Albumin Level 3.1 g/dL (3.5-5.0); Alkaline Phosphatase 97 U/L (39-117); Anion Gap 12 (12-20); Aspartate Amino Transferase 24 U/L (5-37); Bilirubin Total 0.7 mg/dL (0.0-1.0); Blood Urea Nitrogen 14 mg/dL (9-16); Calcium 8.1 mg/dL (8.4-10.2); Carbon Dioxide 22 mmol/L (22-29); Chloride 106 mmol/L (96-108); Creatinine Clr Calc Pharmacy 89.9; Estimated Glomerular Filt Rate > 60; Glucose Fasting 116 mg/dL (60-99); Potassium 3.4 mmol/L (3.3-5.1); Sodium 137 mmol/L (135-145); Total Protein 5.8 g/dL (6.5-8.0)
[2024-11-10 07:46] LABS: Glucose, Whole Blood 140 mg/dL (60-115)
[2024-11-10 08:08] VITALS: BP 121/53; PULSE 93; RESP 12; TEMP 37; O2SAT 95
--- NOTE | 2024-11-10 10:58 | PC.NURSE ---
Late entry for 11/09: Family notified of patient fall with no injury. Family updated on current plan of care and in agreement.
[2024-11-10 11:34] LABS: Glucose, Whole Blood 212 mg/dL (60-115)
--- NOTE | 2024-11-10 12:12 | HO.PM.IMPN ---
Subjective Subjective Date of Service: 11/10/24 Interval History: Continues to have loose stools. Slightly confused. Review of Systems Denies chest pain Denies shortness of breath Denies fever and chills Admits to diarrhea without nausea and vomiting Physical Exam Vital Signs: Vital Signs: Last Vital Signs Temp 98.6 F 11/10/24 08:08 Pulse 93 11/10/24 08:08 Resp 12 11/10/24 08:08 BP 121/53 L 11/10/24 08:08 Pulse Ox 95 11/10/24 08:08 O2 Del Method Room Air 11/10/24 08:08 O2 Flow Rate 3 11/10/24 03:00 BMI result Body Mass Index 21.1 Const: Other: Awake alert no acute distress Resp: Other: Clear to auscultation bilaterally no rales rhonchi or wheezes Cardio: Other: No S4; positive S1-S2; no S3 murmurs rubs or gallops GI: Other: Soft nontender nondistended normoactive bowel sounds Extrem: Other: No edema bilaterally Psych: Other: sleepy Objective Data Active Medications Acetaminophen (Acetaminophen 325 Mg Tablet) 650 mg PO Q6H PRN PRN Reason: Pain, Mild 1-3,fever,headache Calcium Carbonate (Calcium Carbonate 750 Mg Tab.Chew) 750 mg PO Q4H PRN PRN Reason: Heartburn Glucose (Glucose Gel 15 Gm Gel..Gram.) 15 gm PO Q15M PRN; Protocol PRN Reason: per Hypoglycemia Standing Ord. Dextrose (D10) 250 mls @ 750 mls/hr IV Q15M PRN; Protocol PRN Reason: per Hypoglycemia Standing Ord. Lactated Ringer's (Lr) 1,000 mls @ 100 mls/hr IVCONT .Q10H [facility] Last Admin: 11/10/24 02:25 Dose: 100 mls/hr Documented By: DUNG Metronidazole (Flagyl) 500 mg in 100 mls @ 100 mls/hr IV Q8H [facility] Last Infusion: 11/10/24 08:12 Dose: Infused Documented By: RINA Insulin Human Lispro (Insulin Lispro 100 Unit/Ml 3 Ml Vial) 0 unit SUBCUT QIDACHS [facility]; Protocol Last Admin: 11/10/24 07:57 Dose: Not Given Documented By: RINA Non-Admin Reason: No Insulin Coverage Magnesium Hydroxide (Milk Of Magnesia 30 Ml Oral.Susp) 30 ml PO DAILY PRN PRN Reason: Constipation Melatonin (Melatonin 3 Mg Tablet) 6 mg PO BEDTIME PRN PRN Reason: Insomnia Ondansetron HCl (Ondansetron Hcl 4 Mg/2 Ml Vial) 4 mg IVPUSH Q8H PRN PRN Reason: Nausea and Vomiting Sodium Chloride (0.9 % Sodium Chloride Flush 3 Ml Syringe) 3 ml IVFLUSH QSHIFT [facility] Last Admin: 11/10/24 07:36 Dose: Not Given Documented By: RINA Non-Admin Reason: IV Running Vancomycin HCl (Vancomycin Hcl 125 Mg Capsule) 125 mg PO Q6H [facility] Stop: 11/18/24 07:14 Last Admin: 11/10/24 08:03 Dose: 125 mg Documented By: RINA Labs 11/09/24 05:39 11/10/24 05:31 Labs: Laboratory Results - last 24 hr 11/09/24 11/09/24 11/09/24 13:40 16:03 19:05 Hold Purple Top Anion Gap Estim Creat Clear Calc Estimated GFR POC Glucose 157 H 214 H 197 H Fasting Glucose Calcium Total Bilirubin AST ALT Alkaline Phosphatase Total Protein Albumin 11/10/24 11/10/24 11/10/24 05:31 07:39 11:29 Hold Purple Top SEE NOTE Anion Gap 12 Estim Creat Clear Calc 89.9 Estimated GFR > 60 POC Glucose 140 H 212 H Fasting Glucose 116 H Calcium 8.1 L Total Bilirubin 0.7 AST 24 ALT 6 Alkaline Phosphatase 97 Total Protein 5.8 L Albumin 3.1 L Microbiology Microbiology Results: Microbiology 11/07/24 12:14 Blood Culture - Preliminary Blood - Venous No growth after 48 hours. 11/07/24 12:14 Blood Culture - Preliminary Blood - Venous No growth after 48 hours. Assessment and Plan (1) History of Clostridioides difficile infection: Status: Acute (2) Norovirus: Status: Acute Plan This is a 74-year-old male with pertinent history of MSSA bacteremia, BPH, permanent atrial fibrillation on Eliquis, peripheral vascular disease, recurrent C diff colitis, chronic kidney disease stage III, lrn-dfzkmxl-eltgeukuf diabetes mellitus who presents to the emergency department for evaluation of vomiting and diarrhea. Specimens positive for C diff and norovirus 1.CDiff/Norovirus -continue vancomycin q.i.d.(02/06) -positive for norovirus today -IV Flagyl(3) -continue volume repletion -advance diet to full liquids 2.Xwj-dnosqbw-aqfnwbmgb diabetes mellitus -acceptable control on current therapies -lispro correctional scale 3.Permanent atrial fibrillation -acceptable rate control on current therapies -continue Eliquis -adjust therapies as clinically indicated 4.Chronic kidney disease -at baseline -follow renals/divalents Eliquis Full code Patient will require ongoing hospitalization for IV fluids to treat diarrhea secondary to C diff and norovirus Quality Stroke Does the patient have a stroke diagnosis?: No VTE Prior VTE?: No VTE Risk Level:: Medical - moderate - high VTE Device Contraindication: Treatment Not Indicated VTE Drug Contraindication: N/A - Med Ordered
[2024-11-10] MEDS: Insulin Lispro 100 UNIT/ML 3 ML VIAL SUBCUT ×2 (12:16→21:25)
[2024-11-10 15:51] VITALS: BP 119/54; PULSE 100; RESP 12; TEMP 36.1; O2SAT 96
[2024-11-10 16:17] LABS: Glucose, Whole Blood 149 mg/dL (60-115)
[2024-11-10 19:18] VITALS: BP 104/70; PULSE 102; RESP 16; TEMP 36.2; O2SAT 96
[2024-11-10 20:26] LABS: Glucose, Whole Blood 172 mg/dL (60-115)
[2024-11-10] MEDS: Apixaban 5 MG TABLET PO (21:26)
[2024-11-11] MEDS: vancomycin HCL 125 MG CAPSULE PO ×4 (01:11→21:01)
[2024-11-11 03:03] VITALS: BP 112/66; PULSE 87; RESP 18; TEMP 36; O2SAT 97
[2024-11-11] MEDS: metroNIDAZOLE/NS 500 MG/100 ML PIGGYBACK 100 MG IV (06:05)
[2024-11-11 06:38] LABS: Alanine Aminotransferase 7 U/L (0-40); Alkaline Phosphatase 91 U/L (39-117); Anion Gap 10 (12-20); Aspartate Amino Transferase 21 U/L (5-37); Bilirubin Total 0.4 mg/dL (0.0-1.0); Blood Urea Nitrogen 15 mg/dL (9-16); Calcium 8.4 mg/dL (8.4-10.2); Carbon Dioxide 24 mmol/L (22-29); Chloride 108 mmol/L (96-108); Creatinine Clr Calc Pharmacy 83.6; Estimated Glomerular Filt Rate > 60; Glucose Fasting 129 mg/dL (60-99); Potassium 4.1 mmol/L (3.3-5.1); Sodium 138 mmol/L (135-145); Total Protein 5.7 g/dL (6.5-8.0)
[2024-11-11 07:37] LABS: Glucose, Whole Blood 115 mg/dL (60-115)
[2024-11-11 07:58] VITALS: BP 115/63; PULSE 79; RESP 18; TEMP 36.2; O2SAT 96
--- NOTE | 2024-11-11 08:22 | P.CDIM_ITS ---
PROVIDER RESPONSE TEXT: To clarify, the appropriate diagnosis supported by the clinical indicators: Pressure Injury unstageable coccyx: suspected QUERY TEXT: PHYSICIAN'S DOCUMENTATION REQUEST Date of Query: 11/09/2024 06:36 AM EST Patient Name: Shashank Fregoso Admit Date: 11/07/2024 Dear Bart Lopez DO, A review of the medical record indicates additional documentation may be needed. Please review below and update the documentation accordingly. Clinical Indicators: Wound care notes dated 11/07 - Unstageable pressure injury coccyx - present on admission Macerated and epibole and irregular. Durafiber packing for moisture management and autolytic debridement. Based on the above, could you please provide further information regarding the ulcer/wound/injury: Pressure Injury unstageable coccyx Possible, probable, suspected, etc. Other etiology of skin integrity Other (explain) Clinically unable to determine (explain) Thank you, Florencia Mccollum, CCS, CDIS Use of terms such as suspected, likely, concern for, or probable (associated with a specific diagnosi s that is being evaluated, monitored, or treated as if it exists) are acceptable and can be coded in the inpatient se tting, when documented at the time of discharge. Please use your independent medical judgment in providing your response. THIS QUERY IS PART OF THE PERMANENT MEDICAL RECORD
--- NOTE | 2024-11-11 08:22 | P.CDIM_ITS ---
PROVIDER RESPONSE TEXT: To clarify, the appropriate diagnosis supported by the clinical indicators: Pressure injury coccyx unstageable: suspected QUERY TEXT: PHYSICIAN'S DOCUMENTATION REQUEST Date of Query: 11/08/2024 05:29 AM EST Patient Name: Shashank Fregoso Admit Date: 11/07/2024 Dear Bart Lopez DO, A review of the medical record indicates additional documentation may be needed. Please review below and update the documentation accordingly. Clinical Indicators: Wound care notes 11/07 - Unstageable pressure injury coccyx, present on admission. macerated, epibole and irregular Durafiber packing for moisture management and autoytic debridement. Based on the above, could you please provide further information regarding the ulcer/wound/injury: Pressure injury coccyx unstageable Possible, probable, suspected etc. Other etiology Other (explain) Clinically unable to determine (explain) Thank you, Florencia Mccollum, CCS, CDIS Use of terms such as suspected, likely, concern for, or probable (associated with a specific diagnosi s that is being evaluated, monitored, or treated as if it exists) are acceptable and can be coded in the inpatient se tting, when documented at the time of discharge. Please use your independent medical judgment in providing your response. THIS QUERY IS PART OF THE PERMANENT MEDICAL RECORD
--- NOTE | 2024-11-11 08:22 | P.CDIM_ITS ---
PROVIDER RESPONSE TEXT: To clarify, the appropriate diagnosis supported by the clinical indicators: SIRS QUERY TEXT: PHYSICIAN'S DOCUMENTATION REQUEST Date of Query: 11/09/2024 07:21 AM EST Patient Name: Shashank Fregoso Admit Date: 11/07/2024 Dear Bart Lopez DO, A review of the medical record indicates additional documentation may be needed. Please review below and update the documentation accordingly. Clinical indicators: H&P 11/07 within the written Plan: Intractable vomiting and diarrhea, meets SIRS criteria. Acute lactic acidosis due to sepsis. IV crystalloids, Cdiff positive. WBC 13.2 Temp 100.4 HR 125 LA 2.8 ID 11/07 - Sepsis, Cdiff Sepsis Vancomycin Sepsis Systemic manifestations of infection, with 2 or more SIRS criteria which include: Fever > 100.4?F or hypothermia < 96.8?F Leukocytosis - WBC > 12,000 or leukopenia, WBC < 4,000, or > 10% bands Tachycardia- > 90 beats/minute Tachypnea- RR > 20 breaths/minute or PaCO2 < 32mmH Based on the above information, consistency and clarity of a noted PDX within the medical record: Sepsis is/was present After study Sepsis has been ruled out SIRS Other (explain) Clinically unable to determine (explain) Thank you, Florencia Mccollum, CCS, CDIS Use of terms such as suspected, likely, concern for, or probable (associated with a specific diagnosi s that is being evaluated, monitored, or treated as if it exists) are acceptable and can be coded in the inpatient se tting, when documented at the time of discharge. Please use your independent medical judgment in providing your response. THIS QUERY IS PART OF THE PERMANENT MEDICAL RECORD
[2024-11-11] MEDS: Apixaban 5 MG TABLET PO ×2 (08:45→21:01)
[2024-11-11 09:10] VITALS: BP 115/63; PULSE 79; O2SAT 96
--- NOTE | 2024-11-11 11:02 | MHC.CM.PN ---
Addendum entered by Ana Rosa Cannon RN 11/11/24 16:02: *Correction - CM attempted to call brother/HCP x3 to update on cancelled dc. No answer and no voicemail box. Addendum entered by Ana Rosa Cannon RN 11/11/24 15:56: Per dc cancelled. [facility] and family updated. Original Note: Per MD patient medically cleared for dc home w/ brother & parts delivery driver. PT rec home w/ services. Patient prefers [facility], as they were previously scheduled for SOC. They are aware of dc. BLS transport scheduled for 2:30 pm. Patient, HCP/brother, RN and MD aware.
--- NOTE | 2024-11-11 11:29 | P.DS_ITS ---
DS: Providers Provider Date of Service: 11/11/24 Date of admission: 11/07/24 04:02 Date of discharge: 11/11/24 Primary care physician: Ramin Medrano MD Consults: 11/07/24 03:18 Consult to Infectious Diseases Routine Consulting Provider: Danisha Gomez Reason for consultation: C diff colitis Has provider been notified: Yes 11/07/24 13:29 Consult to Wound Care Routine Reason for consultation: PI DS: Diagnosis Discharge Diagnosis (1) History of Clostridioides difficile infection: Status: Acute (2) Norovirus: Status: Acute DS: Summary Hospital Course Hospital Course: 74-year-old male with pertinent history of MSSA bacteremia, BPH, permanent atrial fibrillation on Eliquis, peripheral vascular disease, recurrent C diff c olitis, chronic kidney disease stage III, xop-irsxfuz-exzxbrhba diabetes mellitus who presents to the emergency department for evaluation of vomiting and diarrhea. Patient was recently admitted at [facility] for sepsis due to sacral wound infection and discharged to rehab facility. States he was discharged home from rehab facility after a 4 week stay. Patient started having multiple episodes of nausea and vomiting 1 day prior to presentation. He had 4 episodes of nonbloody emesis and 4 episodes of nonbloody diarrhea. Denies abdominal pain. States the residents in the half-way also had similar symptoms. No fever, chills, chest pain, palpitations, shortness of breath, changes in urinary habits. In the emergency department, patient was found to be febrile with temp 100.4 deg olesya, leukocytosis 13.2 and C diff gene noted to be positive. Hospital Course Patient was admitted to the general medical floor and started on vancomycin 125 mg q.i.d.. IV Flagyl was also initiated. Initially, secondary to increased stooling, rectal tube was placed. Over the next 72 hours, patient's diarrhea improved 2 soft formed in the rectal tube was removed. Over the last 48 hours has tolerated a regular diet. Was seen by Physical therapy who deemed him an acceptable candidate to go home with services. At this time he will be discharged on a slow vancomycin taper as outlined. He will follow up with his PCP next available Time Attestation Discharge Coordination Time (in mins): 35 Quality: Safe Use of Opioids Does Pt have an Active Cancer Diagnosis on the Problem List?: No Quality: Stroke Does the patient have a stroke diagnosis?: No Physical Exam Vital Signs: Vital Signs: Last Vital Signs Temp 97.1 F 11/11/24 07:58 Pulse 79 11/11/24 09:10 Resp 18 11/11/24 07:58 BP 115/63 11/11/24 09:10 Pulse Ox 96 11/11/24 09:10 O2 Del Method Room Air 11/11/24 07:58 O2 Flow Rate 3 11/10/24 03:00 BMI result Body Mass Index 21.1 Const: Other: Awake alert no acute distress Resp: Other: Clear to auscultation bilaterally no rales rhonchi or wheezes Cardio: Other: No S4; positive S1-S2; no S3 murmurs rubs or gallops GI: Other: Soft nontender nondistended normoactive bowel sounds Extrem: Other: No edema bilaterally Psych: Other: sleepy DS: Data Data Completed and Pending Completed studies during hospitalization [Text1]: Procedures Detachment at Left 1st Toe, Complete, Open Approach (01/23/21) Detachment at Left 2nd Toe, Low, Open Approach (10/10/20) Detachment at Left 3rd Toe, Complete, Open Approach (01/13/22) Dilation of Left Posterior Tibial Artery, Percutaneous Approach (01/23/21) Excision of Left Foot Skin, External Approach (01/23/21) Insertion of Infusion Device into Right Brachial Vein, Percutaneous Approach (03/04/24) Insertion of Infusion Device into Superior Vena Cava, Percutaneous Approach (01/13/22) Introduction of Vasopressor into Peripheral Vein, Percutaneous Approach (07/02/24) Labs on day of discharge: Laboratory Results - last 24 hr 11/10/24 11/10/24 11/10/24 11:29 16:06 20:21 Sodium Potassium Chloride Carbon Dioxide Anion Gap BUN Creatinine Estim Creat Clear Calc Estimated GFR POC Glucose 212 H 149 H 172 H Fasting Glucose Calcium Total Bilirubin AST ALT Alkaline Phosphatase Total Protein Albumin 11/11/24 11/11/24 05:58 07:22 Sodium 138 Potassium 4.1 D Chloride 108 Carbon Dioxide 24 Anion Gap 10 L BUN 15 Creatinine 0.85 Estim Creat Clear Calc 83.6 Estimated GFR > 60 POC Glucose 115 Fasting Glucose 129 H Calcium 8.4 Total Bilirubin 0.4 AST 21 ALT 7 Alkaline Phosphatase 91 Total Protein 5.7 L Albumin 3.0 L Preliminary micro results at discharge 11/07/24 12:14 Blood Culture - Preliminary Blood - Venous No growth after 48 hours. 11/07/24 12:14 Blood Culture - Preliminary Blood - Venous No growth after 48 hours. 11/07/24 01:51 Blood Culture - Preliminary Blood - Venous No growth after 48 hours. 11/07/24 01:48 Blood Culture - Preliminary Blood - Venous No growth after 48 hours. Discharge Plan Discharge Anticipated Discharge Date/Time: 11/11/24 11:18 Patient Disposition: Home Health Service Discharge Diagnosis: C diff colitis Referrals: [facility] [Outside] - 3-5 Days ([facility] will call you to schedule home appointments) Ramin Medrano MD [Primary Care Provider] - 1 Week Discharge Medications: New vancomycin 125 mg capsule See Rx Instructions .ROUTE .COMPLEX Qty: 70 0RF Rx Instructions: 125 mg orally: 1 p.o. q.i.d. x7 days, 1 p.o. t.i.d. x7 days, 1 p.o. b.i.d. x7 days, 1 p.o. daily x7 days. Continued Eliquis 5 mg tablet 5 mg PO BID Qty: 180 3RF magnesium oxide 400 mg (241.3 mg magnesium) Tablet 400 mg PO DAILY Qty: 90 0RF amiodarone 200 mg tablet 200 mg PO DAILY insulin lispro 100 unit/mL solution 2 - 10 sliding scale dose subcut TID Protocol: Insulin Correction Scale Less than or equal to 110 ---- Give (units): 0 111 to 150 Give (units): 0 151 to 200 Give (units): 2 201 to 250 Give (units): 4 251 to 300 Give (units): 6 301 to 350 Give (units): 8 Greater than 350 Give (units): 10 Call if Blood Glucose > : 350 Rx Instructions: 150-199=2 units, 200-249=4 units, 250-299=6 units, 300-349=8, 350-399=10 units metoprolol tartrate 25 mg tablet 25 mg PO BID dapagliflozin propanediol [Farxiga] 10 mg tablet 10 mg PO DAILY potassium chloride 8 mEq capsule, extended release 8 meq PO BID acetaminophen 325 mg Tablet 650 mg PO Q4H PRN (Reason: Fever Or Pain) insulin glargine 100 unit/mL Solution 12 unit subcut BEDTIME thiamine HCl (vitamin B1) 100 mg Tablet 100 mg PO DAILY magnesium hydroxide [Milk of Magnesia] 400 mg/5 mL Suspension 30 ml PO BEDTIME PRN (Reason: Constipation) Rx Instructions: If no BM in 3 days bisacodyl 10 mg Suppository 10 mg NC DAILY PRN (Reason: Constipation) Rx Instructions: If M.O.M no effective Fleet Enema 19-7 gram/118 mL Enema 118 ml NC DAILY PRN (Reason: Constipation) Rx Instructions: If Ducolax supp. no effective folic acid 1 mg Tablet 1 mg PO DAILY midodrine 10 mg Tablet 10 mg PO Q8H PRN (Reason: sbp < 90) Rx Instructions: do not give last dose of day after 6PM or within 4 hrs of bedtime glucagon 1 mg/0.2 mL Solution 1 mg SUBCUT Q15M PRN (Reason: loww sugar) Rx Instructions: until target blood sugar attained (DME) lancets 28 gauge misc See Rx Instructions topical DAILY Qty: 100 Rx Instructions: As directed bethanechol chloride 25 mg tablet 25 mg PO BID 90 Days Qty: 180 1RF Discharge Orders: Discharge Order (Routine); Ordered 11/11/24 Ordered By: Bart Lopez Diet: Advance to usual diet Activity on Discharge: As tolerated Stand Alone Forms: Patient Portal Discharge page Print Language: Hebrew Care Plan Goals: Vancomycin 125 mg 4 times a day for 1 week, then vancomycin 125 mg 3 times a day for 1 week, then vancomycin 125 mg 2 times a day for 1 week and then vancomycin daily for 1 week. When this taper is complete you will need to take vancomycin 125 mg daily on Thursday and Thursday Health Concerns: Resume all other medicines as taken prior to the hospital Plan of Treatment: Resume VNA services and follow up with the PCP next available Assessment: See discharge summary
[2024-11-11 11:34] LABS: Glucose, Whole Blood 166 mg/dL (60-115)
[2024-11-11] MEDS: Insulin Lispro 100 UNIT/ML 3 ML VIAL SUBCUT ×2 (12:21→21:01)
--- NOTE | 2024-11-11 13:29 | PC.NURSE ---
1230 carmichael catheter replaced per Dr. Lopez due to discharged coming from urethra, 16fr carmichael inserted, balloon inflated with 10cc NS, pt tolerated well
--- NOTE | 2024-11-11 13:38 | P.F2F_ITS ---
Service Date Service Date: 11/11/24 Encounter Date of encounter: 11/11/24 Encounter: Acute hospitalization Reasons for Services Signs and symptoms assessed: Medication management and physical therapy Reason for penitentiary: medication management, medication treatment and teach disease management Reason for occupational therapy: home safety and mobility and restore joint function Homebound: Leaving the home is medically contraindicated at this time without the asist of a device and/or another person due th the listed conditions above and below. Reason homebound: unsteady gait / fall risk and unable to drive Certification: Based on the above findings, I certify that this patient is confined to the home and needs intermittent penitentiary care, physical therapy and/or speech ther apy, or continues to need occupational therapy. The patient is under my care, and I have initiated the establishment of the plan of care. The patient will be followed by a physician who will periodically review the plan of care. Time Spent With Patient Time: Total time managing care of this patient today ____ minutes.
[2024-11-11 16:00] VITALS: BP 138/70; PULSE 90; RESP 20; TEMP 36.6; O2SAT 95
[2024-11-11 16:23] LABS: Glucose, Whole Blood 122 mg/dL (60-115)
--- NOTE | 2024-11-11 17:21 | PC.NURSE ---
F/C replaced and draining, a few clots noted, MD notified and primary RN. Pt tolerated well and thanked this greeting card writer for his bladder relief.
[2024-11-11 20:00] VITALS: BP 137/71; PULSE 114; RESP 18; TEMP 36.7; O2SAT 97
[2024-11-11 20:09] LABS: Glucose, Whole Blood 225 mg/dL (60-115)
[2024-11-12] MEDS: vancomycin HCL 125 MG CAPSULE PO ×3 (01:11→13:18)
[2024-11-12 07:56] LABS: Glucose, Whole Blood 130 mg/dL (60-115)
[2024-11-12 08:09] VITALS: BP 129/60; PULSE 93; RESP 18; TEMP 36.1; O2SAT 97
[2024-11-12] MEDS: Metoprolol Tartrate 25 MG TABLET PO (08:55)
[2024-11-12] MEDS: Apixaban 5 MG TABLET PO (08:55)
[2024-11-12] MEDS: Folic Acid 1 MG TABLET PO (08:55)
[2024-11-12] MEDS: Amiodarone HCL 200 MG TABLET PO (08:55)
[2024-11-12] MEDS: Thiamine HCL 100 MG TABLET PO (08:55)
[2024-11-12 09:29] LABS: Hematocrit 27.5 % (42.0-52.0); Hemoglobin 9.1 g/dl (14.0-18.0)
[2024-11-12 11:38] LABS: Glucose, Whole Blood 219 mg/dL (60-115)
[2024-11-12] MEDS: Insulin Lispro 100 UNIT/ML 3 ML VIAL SUBCUT (11:58)
--- NOTE | 2024-11-12 12:31 | PM.DS ---
DS: Providers Provider Date of Service: 11/12/24 Date of admission: 11/07/24 04:02 Date of discharge: 11/12/24 Primary care physician: Ramin Medrano MD Consults: 11/07/24 03:18 Consult to Infectious Diseases Routine Consulting Provider: Danisha Gomez Reason for consultation: C diff colitis Has provider been notified: Yes 11/07/24 13:29 Consult to Wound Care Routine Reason for consultation: PI DS: Diagnosis Discharge Diagnosis (1) Norovirus: Status: Acute (2) Clostridioides difficile infection: Status: Acute DS: Summary Hospital Course Hospital Course: From the history and physical by the admitting hospitalist, Hipolito Torres MD, 11/07/24: This is a 74-year-old male with pertinent history of MSSA bacteremia, BPH, permanent atrial fibrillation on Eliquis, peripheral vascular disease, recurrent C diff colitis, chronic kidney disease stage III, aok-rltvnit-bfbyklktb diabetes mellitus who presents to the emergency department for evaluation of vomiting and diarrhea. Patient was recently admitted at [facility] for sepsis due to sacral wound infection and discharged to rehab facility. States he was discharged home from rehab facility after a 4 week stay. Patient started having multiple episodes of nausea and vomiting 1 day prior to presentation. He had 4 episodes of nonbloody emesis and 4 episodes of nonbloody diarrhea. Denies abdominal pain. States the residents in the residential also had similar symptoms. No fever, chills, chest pain, palpitations, shortness of breath, changes in urinary habits. In the emergency department, patient was found to be febrile with temp 100.4 degrees, leukocytosis 13.2 and C diff gene noted to be positive. He was admitted to the general medical floor and started on vancomycin 125 mg q.i.d.. IV Flagyl was also initiated. Initially, secondary to increased stooling, rectal tube was placed. Notably, he also tested positive for norovirus. Over the next 72 hours, patient's diarrhea improved 2 soft formed in the rectal tube was removed. Over the last 72 hours has tolerated a regular diet. Was seen by Physical therapy who deemed him an acceptable candidate to go home with services. At this time he will be discharged on a slow vancomycin taper as outlined. Discharge was delayed by 1 day due to minor hematuria from Davis catheter change. Eliquis was continued as per home dosing. Time Attestation Discharge Coordination Time (in mins): 45 Quality: Safe Use of Opioids Does Pt have an Active Cancer Diagnosis on the Problem List?: No Quality: Stroke Does the patient have a stroke diagnosis?: No Physical Exam Vital Signs: Vital Signs: Last Vital Signs Temp 96.9 F 11/12/24 08:09 Pulse 93 11/12/24 08:09 Resp 18 11/12/24 08:09 BP 129/60 11/12/24 08:09 Pulse Ox 97 11/12/24 08:09 O2 Del Method Room Air 11/12/24 08:09 O2 Flow Rate 3 11/10/24 03:00 BMI result Body Mass Index 21.1 Gen: in no acute distress HEENT: sclera anicteric, moist mucus membranes Neck: supple Lungs: clear to auscultation bilaterally Heart: regular rate and rhythm, no murmurs Abd: soft, non-tender, non-distended : Davis with clear urine Ext: no edema Skin: warm/well-perfused Neuro: alert and oriented x3, no focal findings Psych: appropriate affect DS: Data Data Completed and Pending Completed studies during hospitalization [Text1]: Laboratory Results WBC 7.5 X10*3/uL (4.8-10.8) 11/09/24 05:39 RBC 3.00 X10*6/uL (4.60-5.80) L 11/09/24 05:39 Hgb 9.1 g/dl (14.0-18.0) L 11/12/24 09:23 Hct 27.5 % (42.0-52.0) L 11/12/24 09:23 MCV 89.7 fL (80.0-98.0) 11/09/24 05:39 MCH 28.7 pg (27.0-33.0) 11/09/24 05:39 MCHC 32.0 g/dl (31.0-36.0) 11/09/24 05:39 RDW 17.9 % (11.0-16.0) H 11/09/24 05:39 Plt Count 295 X10*3/uL (160-400) 11/09/24 05:39 MPV 9.2 fL (9.4-12.4) L 11/09/24 05:39 Immature Gran % (Auto) 0.4 % (0.0-0.4) 11/09/24 05:39 Neut % (Auto) 73.8 % (45-73) H 11/09/24 05:39 Lymph % (Auto) 19.6 % (20-40) L 11/09/24 05:39 Mccreary % (Auto) 5.4 % (2-11) 11/09/24 05:39 Eos % (Auto) 0.7 % (0-4) 11/09/24 05:39 Baso % (Auto) 0.1 % (0-2) 11/09/24 05:39 Lymph # (Auto) 1.5 X10*3/uL (1.2-4.9) 11/09/24 05:39 Mccreary # (Auto) 0.4 X10*3/uL (0.1-1.2) 11/09/24 05:39 Eos # (Auto) 0.1 X10*3/uL (0.0-0.4) 11/09/24 05:39 Baso # (Auto) 0.0 X10*3/uL (0.0-0.2) 11/09/24 05:39 Abs Immat Gran (auto) 0.03 X10*3/uL (0.00-0.03) 11/09/24 05:39 Absolute Neuts (auto) 5.5 x10*3/uL (2.0-8.3) 11/09/24 05:39 Absolute Nucleated RBC 0.000 X10*3/uL (0.0-0.012) 11/09/24 05:39 Nucleated RBC % (auto) 0.0 /100WBC (0.0-0.2) 11/09/24 05:39 Smear Tech's Comments VERIFIED 11/07/24 01:48 Hold Purple Top SEE NOTE 11/10/24 05:31 Sodium 138 mmol/L (135-145) 11/11/24 05:58 Potassium 4.1 mmol/L (3.3-5.1) D 11/11/24 05:58 Chloride 108 mmol/L (96-108) 11/11/24 05:58 Carbon Dioxide 24 mmol/L (22-29) 11/11/24 05:58 Anion Gap 10 (12-20) L 11/11/24 05:58 BUN 15 mg/dL (9-16) 11/11/24 05:58 Creatinine 0.85 mg/dL (0.5-1.4) 11/11/24 05:58 Estim Creat Clear Calc 83.6 11/11/24 05:58 Estimated GFR > 60 11/11/24 05:58 POC Glucose 219 mg/dL (60-115) H 11/12/24 11:28 Random Glucose 301 mg/dL (60-115) H 11/07/24 05:15 Fasting Glucose 129 mg/dL (60-99) H 11/11/24 05:58 Estimat Average Glucose 114 mg/dL 11/07/24 05:15 Hemoglobin A1c % 5.6 % (<6.0) 11/07/24 05:15 Lactic Acid 2.8 mmol/L (0.5-2.0) H* 11/07/24 12:13 Lactic Acid F/U @ 2Hr 2.5 mmol/L (0.5-2.0) H* 11/07/24 14:37 Lactic Acid F/U @ 4Hr 2.7 mmol/L (0.5-2.0) H* 11/07/24 17:11 Calcium 8.4 mg/dL (8.4-10.2) 11/11/24 05:58 Total Bilirubin 0.4 mg/dL (0.0-1.0) 11/11/24 05:58 AST 21 U/L (5-37) 11/11/24 05:58 ALT 7 U/L (0-40) 11/11/24 05:58 Alkaline Phosphatase 91 U/L (39-117) 11/11/24 05:58 Total Protein 5.7 g/dL (6.5-8.0) L 11/11/24 05:58 Albumin 3.0 g/dL (3.5-5.0) L 11/11/24 05:58 Stl C. cayetanensis PCR Not Detected (Not Detect.) 11/07/24 02:06 Stool Rotavirus A PCR Not Detected (Not Detect.) 11/07/24 02:06 Stl Adenov F 40/41 PCR Not Detected (Not Detect.) 11/07/24 02:06 Stool Astrovirus (PCR) Not Detected (Not Detect.) 11/07/24 02:06 Stool Campylobacter PCR Not Detected (Not Detect.) 11/07/24 02:06 Stool Cryptosporidium PCR Not Detected (Not Detect.) 11/07/24 02:06 Stl Sh Tox Pr E STEC PCR Not Detected (Not Detect.) 11/07/24 02:06 Stool E coli O157 PCR Not applicable (Not Detect.) 11/07/24 02:06 Stl Enterotoxigenic E PCR Not Detected (Not Detect.) 11/07/24 02:06 Stool EPEC (PCR) Not Detected (Not Detect.) 11/07/24 02:06 Stool EAEC (PCR) Not Detected (Not Detect.) 11/07/24 02:06 Stl E. histolytica PCR Not Detected (Not Detect.) 11/07/24 02:06 Stool Giardia Lamblia PCR Not Detected (Not Detect.) 11/07/24 02:06 Stl P. shigelloides PCR Not Detected (Not Detect.) 11/07/24 02:06 Stool Salmonella PCR Not Detected (Not Detect.) 11/07/24 02:06 Stool Sapovirus (PCR) Not Detected (Not Detect.) 11/07/24 02:06 Stl Shigella/EIEC PCR Not Detected (Not Detect.) 11/07/24 02:06 St Y.enterocolitica PCR Not Detected (Not Detect.) 11/07/24 02:06 Stool Vibrio (PCR) Not Detected (Not Detect.) 11/07/24 02:06 Stl Vibrio cholerae PCR Not Detected (Not Detect.) 11/07/24 02:06 Stool Norovirus (PCR) DETECTED 11/07/24 02:06 Stl Norovirus GI/GII PCR See Comment (Not Detect.) 11/07/24 02:06 C. difficile Tox B Gene POSITIVE (Negative) A* 11/07/24 02:06 C. difficile Toxin A&B Negative (Negative) 11/07/24 02:06 C. difficile Interpret SEE NOTE 11/07/24 02:06 Influenza Type A (PCR) NEGATIVE (Negative) 11/07/24 01:48 Influenza Type B (PCR) NEGATIVE (Negative) 11/07/24 01:48 RSV RNA Qual (PCR) NEGATIVE (Negative) 11/07/24 01:48 SARS-CoV-2 RNA (RT-PCR) NEGATIVE (Negative) 11/07/24 01:48 Discharge Plan Discharge Anticipated Discharge Date/Time: 11/11/24 11:18 Patient Disposition: Home Health Service Discharge Diagnosis: C diff colitis Referrals: [facility] [Outside] - 3-5 Days ([facility] will call you to schedule home appointments) Ramin Medrano MD [Primary Care Provider] - 1 Week Discharge Medications: New vancomycin 125 mg capsule See Rx Instructions .ROUTE .COMPLEX Qty: 70 0RF Rx Instructions: 125 mg orally: 1 p.o. q.i.d. x7 days, 1 p.o. t.i.d. x7 days, 1 p.o. b.i.d. x7 days, 1 p.o. daily x7 days. Continued Eliquis 5 mg tablet 5 mg PO BID Qty: 180 3RF magnesium oxide 400 mg (241.3 mg magnesium) Tablet 400 mg PO DAILY Qty: 90 0RF amiodarone 200 mg tablet 200 mg PO DAILY insulin lispro 100 unit/mL solution 2 - 10 sliding scale dose subcut TID Protocol: Insulin Correction Scale Less than or equal to 110 ---- Give (units): 0 111 to 150 Give (units): 0 151 to 200 Give (units): 2 201 to 250 Give (units): 4 251 to 300 Give (units): 6 301 to 350 Give (units): 8 Greater than 350 Give (units): 10 Call if Blood Glucose > : 350 Rx Instructions: 150-199=2 units, 200-249=4 units, 250-299=6 units, 300-349=8, 350-399=10 units metoprolol tartrate 25 mg tablet 25 mg PO BID dapagliflozin propanediol [Farxiga] 10 mg tablet 10 mg PO DAILY potassium chloride 8 mEq capsule, extended release 8 meq PO BID acetaminophen 325 mg Tablet 650 mg PO Q4H PRN (Reason: Fever Or Pain) insulin glargine 100 unit/mL Solution 12 unit subcut BEDTIME thiamine HCl (vitamin B1) 100 mg Tablet 100 mg PO DAILY magnesium hydroxide [Milk of Magnesia] 400 mg/5 mL Suspension 30 ml PO BEDTIME PRN (Reason: Constipation) Rx Instructions: If no BM in 3 days bisacodyl 10 mg Suppository 10 mg OK DAILY PRN (Reason: Constipation) Rx Instructions: If M.O.M no effective Fleet Enema 19-7 gram/118 mL Enema 118 ml OK DAILY PRN (Reason: Constipation) Rx Instructions: If Ducolax supp. no effective folic acid 1 mg Tablet 1 mg PO DAILY midodrine 10 mg Tablet 10 mg PO Q8H PRN (Reason: sbp < 90) Rx Instructions: do not give last dose of day after 6PM or within 4 hrs of bedtime glucagon 1 mg/0.2 mL Solution 1 mg SUBCUT Q15M PRN (Reason: loww sugar) Rx Instructions: until target blood sugar attained (DME) lancets 28 gauge misc See Rx Instructions topical DAILY Qty: 100 Rx Instructions: As directed bethanechol chloride 25 mg tablet 25 mg PO BID 90 Days Qty: 180 1RF Discharge Orders: Discharge Order (Routine); Ordered 11/12/24 Ordered By: Donna Pisano Diet: Advance to usual diet Activity on Discharge: As tolerated Stand Alone Forms: Patient Portal Discharge page Print Language: Armenian Care Plan Goals: Vancomycin 125 mg 4 times a day for 1 week, then vancomycin 125 mg 3 times a day for 1 week, then vancomycin 125 mg 2 times a day for 1 week and then vancomycin daily for 1 week. When this taper is complete you will need to take vancomycin 125 mg daily on Thursday and Thursday Health Concerns: Resume all other medicines as taken prior to the hospital Plan of Treatment: Resume VNA services and follow up with the PCP next available Assessment: See discharge summary
--- NOTE | 2024-11-12 12:57 | MHC.CM.PN ---
amb re booked for today at 3 brother yara aware [facility] notified
== END 2024-11-12 15:15 | disposition home health service (06) | DRG 392 ==
LOC: HO.ED 02:34 → HO.EDOVER 04:14 → HO.S3 09:28
PROVIDERS: Hospitalist; Admitting Provider Student in an Organized Health Care Education/Training Program; Emergency Provider Internal Medicine; PCP Internal Medicine; Visit Provider Family Medicine
DX: A08.11 Acute gastroenteropathy due to Norwalk agent (principal); I48.21 Permanent atrial fibrillation; A04.71 Enterocolitis due to Clostridium difficile, recurrent; E11.65 Type 2 diabetes mellitus with hyperglycemia; E11.51 Type 2 diabetes mellitus with diabetic peripheral angiopathy without gangrene; N40.0 Benign prostatic hyperplasia without lower urinary tract symptoms; L89.150 Pressure ulcer of sacral region, unstageable; N18.30 Chronic kidney disease, stage 3 unspecified; E11.22 Type 2 diabetes mellitus with diabetic chronic kidney disease; D63.1 Anemia in chronic kidney disease; Z79.4 Long term (current) use of insulin; Z79.01 Long term (current) use of anticoagulants; Z79.899 Other long term (current) drug therapy
CPT/HCPCS: 0241U; 36415; 80048; 80053; 82947; 83036; 83605; 85014; 85018; 85025; 87040; 87324; 87493; 87507; 93005; 97162; 99285; C1758; J0131; J1836; J2405; J7120; P9047

== ENCOUNTER → 2024-11-07 01:41 | Outpatient (BNV) | payer MEDICARE, BC, SELFPAY | PROVIDERS: Admitting Provider Student in an Organized Health Care Education/Training Program; Emergency Provider Internal Medicine; PCP Internal Medicine; Visit Provider Internal Medicine | DX: R94.31 Abnormal electrocardiogram [ECG] [EKG] (principal) | CPT/HCPCS: 93010 ==

== ENCOUNTER → 2024-11-07 04:02 | Outpatient (BNV) | payer MEDICARE, BC, SELFPAY | PROVIDERS: Admitting Provider Student in an Organized Health Care Education/Training Program; Emergency Provider Internal Medicine; PCP Internal Medicine; Visit Provider Student in an Organized Health Care Education/Training Program | DX: Z86.19 Personal history of other infectious and parasitic diseases (principal); A08.11 Acute gastroenteropathy due to Norwalk agent | CPT/HCPCS: G0180 ==

== ENCOUNTER → 2024-11-07 04:02 | Outpatient (BNV) | payer MEDICARE, BC, SELFPAY | PROVIDERS: Admitting Provider Student in an Organized Health Care Education/Training Program; Emergency Provider Internal Medicine; PCP Internal Medicine; Visit Provider Internal Medicine | DX: Z86.19 Personal history of other infectious and parasitic diseases (principal); R19.7 Diarrhea, unspecified; A41.9 Sepsis, unspecified organism | CPT/HCPCS: 99222 ==

== ENCOUNTER 2024-11-22 12:12 | Outpatient (REF) | payer MEDICARE, BC, SELFPAY ==
[2024-11-22 13:04] LABS: MANUAL DIFF FLAG NO
[2024-11-22 13:14] LABS: Basophils Absolute Auto 0.1 X10*3/uL (0.0-0.2); Basophils Percent Auto 0.8 % (0-2); Eosinophils Absolute Auto 0.1 X10*3/uL (0.0-0.4); Eosinophils Percent Auto 1.3 % (0-4); Hematocrit 36.2 % (42.0-52.0); Hemoglobin 11.3 g/dl (14.0-18.0); Imm Gran Abs Auto 0.03 X10*3/uL (0.00-0.03); Imm Gran Pct Auto 0.3 % (0.0-0.4); Lymphocytes Absolute Auto 1.8 X10*3/uL (1.2-4.9); Lymphocytes Percent Auto 16.4 % (20-40); Mean Corpuscular HGB Conc 31.2 g/dl (31.0-36.0); Mean Corpuscular Volume 92.8 fL (80.0-98.0); Mean Platelet Volume 8.9 fL (9.4-12.4); Monocytes Absolute Auto 0.7 X10*3/uL (0.1-1.2); Monocytes Percent Auto 6.2 % (2-11); Neutrophils Absolute Auto 8.3 x10*3/uL (2.0-8.3); Red Cell Distribution Width 16.8 % (11.0-16.0)
[2024-11-22 13:18] LABS: Estimated Average Glucose 108 mg/dL; Hemoglobin A1C 105.1658 umol/L; Hemoglobin A1c % 5.4 % (<6.0); Platelet Count 592 X10*3/uL (160-400); Total Hemoglobin (HGBA1C) 2937.5379 umol/L
[2024-11-22 13:28] LABS: Alanine Aminotransferase 13 U/L (0-40); Albumin Level 4.1 g/dL (3.5-5.0); Alkaline Phosphatase 73 U/L (39-117); Anion Gap 14 (12-20); Aspartate Amino Transferase 18 U/L (5-37); Bilirubin Total 0.4 mg/dL (0.0-1.0); Blood Urea Nitrogen 32 mg/dL (9-16); Calcium 9.6 mg/dL (8.4-10.2); Carbon Dioxide 26 mmol/L (22-29); Chloride 103 mmol/L (96-108); Estimated Glomerular Filt Rate > 60; Glucose Random 113 mg/dL (60-115); Magnesium 2.1 mg/dL (1.6-2.6); Potassium 4.7 mmol/L (3.3-5.1); Sodium 138 mmol/L (135-145); Total Protein 8.3 g/dL (6.5-8.0)
[2024-11-22 13:46] LABS: Vitamin D 25-OH Total 37.8 ng/mL (>30)
--- OUTSIDE RECORDS SUMMARY | 2024-11-22 13:50 | XMS_ITS ---
Author Organization [facility] acute [facility] Address [address] [facility] [place] [address] Care Team Providers Care Screw Machine Tender Name Role Phone Ramin Medrano MD Primary Care Provider Berry Quiles [phone] REASON FOR VISIT NS Encounters Encounter Location Date Provider Diagnosis [facility] [address] [place] [address] 06/09/2024 Berry Arnold Plan Of Treatment No Information Progress Notes * Shashank FREGOSO JrDOB:[birth year] (74 yo M)Acc No.[id number]:06/09/2024 Patient:?Shashank Fregoso :1950???Age:74 Y???Sex:Male Address:[address] [place], [address] * true * Date:? Generated for Melchori natty/Carmen/eTransmitting on:?11/22/2024 01:50 PM EST
--- OUTSIDE RECORDS SUMMARY | 2024-11-22 13:50 | XMS_ITS | Encounter Summary ---
Author Organization [facility] Address [address] [place] [address] Care Team Providers Care Progress Worker Name Role Phone Juan Carlos Luna MD Primary Care Provider Encounter Details Date Type Department Care Team (Latest Contact Info) Description 09/23/2024 Lab Requisition [facility] - Main Lab [address] [facility] [place] [address] Vanessa Winslow MD [address] [place] [address] [id number] Type 2 diabetes mellitus without complications (CMS/HCC); Essential (primary) hypertension; Unspecified atrial fibrillation (CMS/HCC) Social History Tobacco Use Types Packs/Day Years Used Date Smoking Tobacco: Never Smokeless Tobacco: Never Alcohol Use Standard Drinks/Week Comments Yes 0 (1 standard drink = 0.6 oz pur e alcohol) Sex and Gender Information Value Date Recorded Sex Assigned at Not on file Gender Identity Not on file Sexual Orientation Not on file documented as of this encounter Plan of Treatment Not on file documented as of this encounter Procedures Procedure Name Priority Date/Time Associated Diagnosis Comments COMPLETE BLOOD COUNT Routine 09/23/2024 7:27 AM EST Type 2 diabetes mellitus without complications (CMS/HCC) Essential (primary) hypertension Unspecified atrial fibrillation (CMS/HCC) THYROID STIMULATING HORMONE Routine 09/23/2024 7:27 AM EST Type 2 diabetes mellitus without complications (CMS/HCC) Essential (primary) hypertension Unspecified atrial fibrillation (CMS/HCC) THYROXINE FREE Routine 09/23/2024 7:27 AM EST Type 2 diabetes mellitus without complications (CMS/HCC) Essential (primary) hypertension Unspecified atrial fibrillation (CMS/HCC) MAGNESIUM Routine 09/23/2024 7:27 AM EST Type 2 diabetes mellitus without complications (CMS/HCC) Essential (primary) hypertension Unspecified atrial fibrillation (CMS/HCC) HEMOGLOBIN A1C Routine 09/23/2024 7:27 AM EST Type 2 diabetes mellitus without complications (CMS/HCC) Essential (primary) hypertension Unspecified atrial fibrillation (CMS/HCC) COMPREHENSIVE METABOLIC PANEL Routine 09/23/2024 7:27 AM EST Type 2 diabetes mellitus without complications (CMS/HCC) Essential (primary) hypertension Unspecified atrial fibrillation (CMS/HCC) documented in this encounter Results * (ABNORMAL) Magnesium (09/23/2024 7:27 AM EST) Magnesium 1.7(L) 1.9 - 2.6 mg/dL LAB CHEMISTRY METHOD 09/23/2024 10:44 AM EST [facility] Blood Venous blood specimen / Unknown Venipuncture / Unknown 09/23/2024 7:27 AM EST 09/23/2024 9:33 AM EST Vanessa Winslow MD LAB BLOOD ORDERABLES Performing Organization Address City/[facility]/ZIP Co de Phone Number [facility] [address] [place] [address], * Thyroxine free (09/23/2024 7:27 AM EST) Free T4 1.33 0.70 - 1.80 ng/dL LAB CHEMISTRY METHOD 09/23/2024 10:51 AM EST [facility] Blood Venous blood specimen / Unknown Venipuncture / Unknown 09/23/2024 7:27 AM EST 09/23/2024 9:33 AM EST Vanessa Winslow MD LAB BLOOD ORDERABLES [facility] [address] [place] [address], * Thyroid stimulating hormone (09/23/2024 7:27 AM EST) [facility] TSH 3.43 0.40 - 4.00 mcIU/mL LAB CHEMISTRY METHOD 09/23/2024 10:51 AM EST [facility] Blood Venous blood specimen / Unknown Venipuncture / Unknown 09/23/2024 7:27 AM EST 09/23/2024 9:33 AM EST Vanessa Winslow MD LAB BLOOD ORDERABLES Performing Organization Address [facility]/ZIP Co de Phone Number [facility] [address] [place] [address], * Hemoglobin A1c (09/23/2024 7:27 AM EST) [facility] Hemoglobin A1C 6.2 <6.5 % LAB CHEMISTRY METHOD 09/23/2024 11:40 AM EST [facility] Mean Bld Glu Estim. 131 mg/dL LAB CHEMISTRY METHOD 09/23/2024 11:40 AM EST [facility] Blood Venous blood specimen / Unknown Venipuncture / Unknown 09/23/2024 7:27 AM EST 09/23/2024 9:33 AM EST Vanessa Winslow MD LAB BLOOD ORDERABLES [facility] [address] [place] [address], [place] [phone] * (ABNORMAL) Comprehensive metabolic panel (09/23/2024 7:27 AM EST) [facility] Sodium 141 133 - 145 mmol/L LAB CHEMISTRY METHOD 09/23/2024 10:45 AM EST [facility] Potassium 4.3 3.5 - 5.5 mmol/L LAB CHEMISTRY METHOD 09/23/2024 10:45 AM [facility] Chloride 109 96 - 110 mmol/L LAB CHEMISTRY METHOD 09/23/2024 10:45 AM [facility] CO2 23 21 - 32 mmol/L LAB CHEMISTRY METHOD 09/23/2024 10:45 AM [facility] Anion Gap 9 3 - 11 LAB CHEMISTRY METHOD 09/23/2024 10:45 AM [facility] Glucose 88 70 - 100 mg/dL LAB CHEMISTRY METHOD 09/23/2024 10:45 AM [facility] BUN 18 5 - 25 mg/dL LAB CHEMISTRY METHOD 09/23/2024 10:45 AM [facility] Creatinine 1.23 0.70 - 1.30 mg/dL LAB CHEMISTRY METHOD 09/23/2024 10:45 AM [facility] eGFR 62 >=60 mL/min/1. 73m2 LAB CHEMISTRY METHOD 09/23/2024 10:45 AM [facility] Comment:Calculation based on the??Chronic Kidney Disease Epidemiology Collaboration (CKD-EPI) equation refit??without adjustment for race. BUN/Creatinine Ratio 14.6 LAB CHEMISTRY METHOD 09/23/2024 10:45 AM [facility] Calcium 8.5 8.5 - 10.5 mg/dL LAB CHEMISTRY METHOD 09/23/2024 10:45 AM [facility] AST (SGOT) 23 10 - 42 unit/L LAB CHEMISTRY METHOD 09/23/2024 10:45 AM [facility] ALT (SGPT) 22 10 - 60 unit/L LAB CHEMISTRY METHOD 09/23/2024 10:45 AM [facility] Alkaline Phosphatase 119 42 - 121 unit/L LAB CHEMISTRY METHOD 09/23/2024 10:45 AM [facility] Total Protein 5.5(L) 6.0 - 8.0 g/dL LAB CHEMISTRY METHOD 09/23/2024 10:45 AM EST [facility] Albumin 2.1(L) 3.2 - 5.0 g/dL LAB CHEMISTRY METHOD 09/23/2024 10:45 AM [facility] Total Bilirubin 0.6 0.0 - 1.4 mg/dL LAB CHEMISTRY METHOD 09/23/2024 10:45 AM [facility] Blood Venous blood specimen / Unknown Venipuncture / Unknown 09/23/2024 7:27 AM EST 09/23/2024 9:33 AM EST Vanessa Winslow MD LAB BLOOD ORDERABLES [facility] [address] [place] [address], * (ABNORMAL) Complete blood count (09/23/2024 7:27 AM EST) WBC 5.4 4.8 - 10.8 K/mcL LAB HEMETOLOGY METHOD 09/23/2024 10:24 AM [facility] RBC 3.30(L) 4.50 - 5.50 M/mcL LAB HEMETOLOGY METHOD 09/23/2024 10:24 AM [facility] Hemoglobin 8.8(L) 13.5 - 17.5 g/dL LAB HEMETOLOGY METHOD 09/23/2024 10:24 AM [facility] Hematocrit 29.3(L) 42.0 - 54.0 % LAB HEMETOLOGY METHOD 09/23/2024 10:24 AM [facility] MCV 89.1 79.0 - 98.0 FL LAB HEMETOLOGY METHOD 09/23/2024 10:24 AM [facility] MCH 26.7(L) 27.0 - 32.0 pcg LAB HEMETOLOGY METHOD 09/23/2024 10:24 AM [facility] MCHC 30.0(L) 32.0 - 37.0 g/dL LAB HEMETOLOGY METHOD 09/23/2024 10:24 AM [facility] RDW 16.4(H) 11.0 - 15.0 % LAB HEMETOLOGY METHOD 09/23/2024 10:24 AM [facility] Platelets 231 130 - 400 K/mcL LAB HEMETOLOGY METHOD 09/23/2024 10:24 AM [facility] MPV 9.8 7.0 - 11.0 FL LAB HEMETOLOGY METHOD 09/23/2024 10:24 AM [facility] NRBC 0.0 <1.0 % LAB HEMETOLOGY METHOD 09/23/2024 10:24 AM [facility] NRBC Absolute 0.00 <0.10 K/mcL LAB HEMETOLOGY METHOD 09/23/2024 10:24 AM [facility] Blood Venous blood specimen / Unknown Venipuncture / Unknown 09/23/2024 7:27 AM EST 09/23/2024 9:33 AM EST Vanessa Winslow MD LAB BLOOD ORDERABLES [facility] [address] [place], [place] [address] [phone] documented in this encounter Visit Diagnoses Diagnosis Type 2 diabetes mellitus without complications (CMS/HCC) Essential (primary) hypertension Unspecified essential hypertension Unspecified atrial fibrillation (CMS/HCC) documented in this encounter Care Teams Progress Worker Relationship Specialty Start Date End Date Juan Carlos Luna MD PCP - General Internal Medicine 06/12/15 documented as of this encounter
--- OUTSIDE RECORDS SUMMARY | 2024-11-22 13:50 | XMS_ITS | Encounter Summary ---
Author Organization [facility] Address [address] [place] [address] Care Team Providers Care Desulfurizer Machine Name Role Phone Juan Carlos Luna MD Primary Care Provider [phone] Encounter Details Date Type Department Care Team (Latest Contact Info) Description 10/21/2024 Lab Requisition [facility] - Main Lab [address] [facility] [place] [address] Vanessa Winslow MD [address] [place] [phone] Metabolic encephalopathy Social History Tobacco Use Types Packs/Day Years [...] Associated Diagnosis Comments COMPLETE BLOOD COUNT Routine 10/21/2024 6:03 AM EST Metabolic encephalopathy BASIC METABOLIC PANEL Routine 10/21/2024 6:03 AM EST Metabolic encephalopathy documented in this encounter Results * (ABNORMAL) Basic metabolic panel (10/21/2024 6:03 AM EST) Sodium 140 133 - 145 mmol/L LAB CHEMISTRY METHOD 10/21/2024 11:16 AM EST [facility] Potassium 5.0 3.5 - 5.5 mmol/L LAB CHEMISTRY METHOD 10/21/2024 11:16 AM EST [facility] Chloride 108 96 - 110 mmol/L LAB CHEMISTRY METHOD 10/21/2024 11:16 AM [facility] CO2 26 21 - 32 mmol/L LAB CHEMISTRY METHOD 10/21/2024 11:16 AM [facility] Anion Gap 6 3 - 11 LAB CHEMISTRY METHOD 10/21/2024 11:16 AM [facility] Glucose 142(H) 70 - 100 mg/dL LAB CHEMISTRY METHOD 10/21/2024 11:16 AM [facility] BUN 41(H) 5 - 25 mg/dL LAB CHEMISTRY METHOD 10/21/2024 11:16 AM [facility] Creatinine 1.21 0.70 - 1.30 mg/dL LAB CHEMISTRY METHOD 10/21/2024 11:16 AM [facility] eGFR 63 >=60 mL/min/1. 73m2 LAB CHEMISTRY METHOD 10/21/2024 11:16 AM [facility] Comment:Calculation based on the??Chronic Kidney Disease Epidemiology Collaboration (CKD-EPI) equation refit??without adjustment for race. BUN/Creatinine Ratio 33.9 LAB CHEMISTRY METHOD 10/21/2024 11:16 AM [facility] Calcium 9.1 8.5 - 10.5 mg/dL LAB CHEMISTRY METHOD 10/21/2024 11:16 AM [facility] Blood Venous blood specimen / Unknown Venipuncture / Unknown 10/21/2024 6:03 AM EST 10/21/2024 10:16 AM EST Vanessa Winslow MD LAB BLOOD ORDERABLES [facility] [address] [place] [address], * (ABNORMAL) Complete blood count (10/21/2024 6:03 AM EST) WBC 9.3 4.8 - 10.8 K/mcL LAB HEMETOLOGY METHOD 10/21/2024 10:58 AM [facility] RBC 3.30(L) 4.50 - 5.50 M/mcL LAB HEMETOLOGY METHOD 10/21/2024 10:58 AM [facility] Hemoglobin 9.3(L) 13.5 - 17.5 g/dL LAB HEMETOLOGY METHOD 10/21/2024 10:58 AM [facility] Hematocrit 31.0(L) 42.0 - 54.0 % LAB HEMETOLOGY METHOD 10/21/2024 10:58 AM [facility] MCV 93.7 79.0 - 98.0 FL LAB HEMETOLOGY METHOD 10/21/2024 10:58 AM [facility] MCH 28.1 27.0 - 32.0 pcg LAB HEMETOLOGY METHOD 10/21/2024 10:58 AM [facility] MCHC 30.0(L) 32.0 - 37.0 g/dL LAB HEMETOLOGY METHOD 10/21/2024 10:58 AM [facility] RDW 19.2(H) 11.0 - 15.0 % LAB HEMETOLOGY METHOD 10/21/2024 10:58 AM [facility] Platelets 396 130 - 400 K/mcL LAB HEMETOLOGY METHOD 10/21/2024 10:58 AM [facility] MPV 9.8 7.0 - 11.0 FL LAB HEMETOLOGY METHOD 10/21/2024 10:58 AM [facility] NRBC 0.0 <1.0 % LAB HEMETOLOGY METHOD 10/21/2024 10:58 AM [facility] NRBC Absolute 0.00 <0.10 K/mcL LAB HEMETOLOGY METHOD 10/21/2024 10:58 AM [facility] Blood Venous blood specimen / Unknown Venipuncture / Unknown 10/21/2024 6:03 AM EST 10/21/2024 10:16 AM EST Vanessa Winslow MD LAB BLOOD ORDERABLES [facility] [address] [place] [address], documented in this encounter Visit Diagnoses Diagnosis Metabolic encephalopathy documented in this encounter Care Teams Desulfurizer Machine Relationship Specialty Start Date End Date Juan Carlos Luna MD PCP - General Internal Medicine 06/12/15 documented as of this encounter
--- OUTSIDE RECORDS SUMMARY | 2024-11-22 13:50 | XMS_ITS | Encounter Summary ---
Author Organization [facility] Address [address] [place] [address] Care Team Providers Care Burn Out Tender Lace Name Role Phone Juan Carlos Luna MD Primary Care Provider [phone] Encounter Details Date Type Department Care Team (Late st Contact Info) Description 10/21/2024 Lab Requisition [facility] - Main Lab [address] [facility] [place] [address] Vanessa Winslow MD [address] [place] [id number] Urinary tract infection, site not specified Social History Tobacco Use Types Packs/Day Years [...] Procedure Name Priority Date/Time Associated Diagnosis Comments URINALYSIS WITH REFLEX MICROSCOPIC Routine 10/20/2024 8:00 PM EST Urinary tract infection, site not specified BAIRD URINE CULTURE TUBE Routine 10/20/2024 8:00 PM EST Urinary tract infection, site not specified URINALYSIS WITH REFLEX MICROSCOPIC Routine 10/20/2024 8:00 PM EST Urinary tract infection, site not specified documented in this encounter Results * (ABNORMAL) Urinalysis with reflex microscopic (10/20/2024 8:00 PM EST) Specific [place] Urine 1.022 1.003 - 1.030 LAB URINALYSIS - AUTOMATED METHOD 10/21/2024 11:30 AM [facility] pH, Urine 7.0 5.0 - 8.0 pH LAB URINALYSIS - AUTOMATED METHOD 10/21/2024 11:30 AM [facility] Leukocytes, Urine Moderate(A) Negative LAB URINALYSIS - AUTOMATED METHOD 10/21/2024 11:30 AM [facility] Nitrite, Urine Negative Negative LAB URINALYSIS - AUTOMATED METHOD 10/21/2024 11:30 AM [facility] Protein, Urine 100(A) <=Trace mg/dL LAB URINALYSIS - AUTOMATED METHOD 10/21/2024 11:30 AM [facility] Glucose, Urine >=1000(A) Negative mg/dL LAB URINALYSIS - AUTOMATED METHOD 10/21/2024 11:30 AM [facility] Ketones, Urine Negative Negative mg/dL LAB URINALYSIS - AUTOMATED METHOD 10/21/2024 11:30 AM [facility] Urobilinogen , Urine 0.2 0.2 - 1.0 mg/dL LAB URINALYSIS - AUTOMATED METHOD 10/21/2024 11:30 AM [facility] Bilirubin, Urine Negative Negative LAB URINALYSIS - AUTOMATED METHOD 10/21/2024 11:30 AM [facility] Blood, Urine Small(A) Negative LAB URINALYSIS - AUTOMATED METHOD 10/21/2024 11:30 AM [facility] RBC, Urine 8.6(H) 0 - 4 /HPF LAB URINALYSIS - AUTOMATED METHOD 10/21/2024 11:30 AM [facility] WBC, Urine 293.5(H) 0 - 4 /HPF LAB URINALYSIS - AUTOMATED METHOD 10/21/2024 11:30 AM [facility] Squamous Epithelial, Urine 3 0 - 60 /LPF LAB URINALYSIS - AUTOMATED METHOD 10/21/2024 11:30 AM [facility] Bacteria, Urine Negative Negative /HPF LAB URINALYSIS - AUTOMATED METHOD 10/21/2024 11:30 AM [facility] Hyaline Casts, Urine 0.0 0 - 3 /LPF LAB URINALYSIS - AUTOMATED METHOD 10/21/2024 11:30 AM [facility] Urine Urine specimen obtained by clean catch procedure / Unknown Non-blood Collection / Unknown 10/20/2024 8:00 PM EST 10/21/2024 9:44 AM EST Vanessa Winslow MD LAB URINE ORDERABLES [facility] [address] [place] [address], [place] [phone] * Baird urine culture tube (10/20/2024 8:00 PM EST) Extra Tube Hold for add-ons. 10/21/2024 11:01 AM [facility] Comment:Auto resulted. Urine Urine specimen obtained by clean catch procedure / Unknown Non-blood Collection / Unknown 10/20/2024 8:00 PM EST 10/21/2024 9:44 AM EST Vanessa Winslow MD LAB URINE ORDERABLES [facility] [address] [place] [address], [place] [phone] documented in this encounter Visit Diagnoses Diagnosis Urinary tract infection, site not specified documented in this encounter Care Teams Burn Out Tender Lace Relationship Specialty Start Date End Date Juan Carlos Luna MD PCP - General Internal Medicine 06/12/15 documented as of this encounter
--- OUTSIDE RECORDS SUMMARY | 2024-11-22 13:50 | XMS_ITS | Clinical Summary ---
Author Organization [facility] Address [address] [place] [address] Care Team Providers Care Scissors Grinder Name Role Phone Juan Carlos Luna MD Primary Care Provider Tiff cotter Allergies Active Allergy Reactions Criticality Noted Date Comments Erythromycin 05/25/2015 Penicillins 05/25/2015 Medications Medication Sig Dispensed Refills Start Date End Date Status lisinopril-hydroch lorothiazide (PRINZIDE,ZESTORET IC) tablet 20-12.5 mg Take 1 tablet by mouth daily. 90 tablet 3 08/04/2017 Active aspirin 81 MG chewable tablet Chew 1 tablet (81 mg total) by mouth daily. 30 tablet 0 09/19/2017 Active apixaban (ELIQUIS) 2.5 MG TABS tablet Take 1 tablet (2.5 mg total) by mouth every 12 (twelve) hours. 60 tablet 3 09/21/2017 Active aluminum sulfate-calcium acetate (DOMEBORO) packet Apply 2 packets topically 3 (three) times a day. 100 each 12 09/22/2017 Active Cholecalciferol (VITAMIN D3) 2000 UNITS TABS Take 2,000 Units by mouth daily. 0 Active cyanocobalamin 1000 MCG tablet Take 1 tablet (1,000 mcg total) by mouth daily. 150 tablet 1 11/02/2017 Active miconazole (MICATIN) 2 % powder Apply topically 2 (two) times a day. 70 g 0 11/02/2017 Active Tbo-Filgrastim (GRANIX) 480 MCG/0.8ML SOSY injection Give 480 mcg subcutaneous only if ANC IS LESS THAN 1000 3 Syringe 3 11/02/2017 Active Active Problems Problem Noted Date Diagnosed Date Osteomyelitis of toe of right foot 08/20/2018 Overview: third toe Fever 10/28/2017 Agranulocytosis 10/28/2017 Dysphasia 10/28/2017 Diarrhea 10/27/2017 Leukopenia 10/27/2017 Neutropenia 10/27/2017 Acute kidney injury 10/27/2017 Dehydration 10/27/2017 Hypotension 10/27/2017 Anemia 10/27/2017 Dysphagia 10/27/2017 Diabetes mellitus 10/27/2017 Superficial thrombophlebitis of left upper extre mity 10/27/2017 Postoperative state 09/29/2017 Anxiety disorder 05/25/2015 BP (high blood pressure) 05/25/2015 Benign localized hyperplasia of prostate 015 History of colon polyps History of mitral valve prolapse Immunizations Name Administration Dates Next Due Td (Tenivac) 09/09/2017 Family History Medical History Relation Name Comments Hemochromatosis Father Learning disabilities Maternal Grandmother Heart disease Mother Relation Name Status Comments Father Maternal Grandmother Mother Social History Tobacco Use Types Packs/Day Years Used Date Smoking Tobacco: Never Smokeless Tobacco: Never Alcohol Use Standard Drinks/Week Comments Yes 0 (1 standard drink = 0.6 oz pur e alcohol) Rare Sex and Gender Information Value Date Recorded Sex Assigned at Not on file Gender Identity Not on file Sexual Orientation Not on file Last Filed Vital Signs Vital Sign Reading Time Taken Comments Blood Pressure 137/77 11/04/2017 11:00 AM EST Pulse 150 11/04/2017 2:46 PM EST Temperature 36.7 ??C (98.1 ??F) 11/04/2017 11:[address] Respiratory Rate 18 11/04/2017 11:00 AM EST Oxygen Saturation 98% 11/04/2017 11:00 AM EST Inhaled Oxygen Concentration - - Weight 99.8 kg (220 lb) 11/11/2017 1:46 PM EST Height 193 cm (6' 4 ) 11/11/2017 1:46 PM EST Body Mass Index 26.78 11/11/2017 1:46 PM EST Plan of Treatment Health Maintenance Due Date Last Done Comments Hepatitis C Screening 1950 COVID-19 Vaccine (#1) 01/14/1955 Pneumococcal Vaccine (1 of 2 - PCV) 1957 Diabetes: Eye Exam (No Retinopathy) 1969 Diabetes: Microalbumin Test 1969 Shingrix-Zoster Vaccine (1 of 2) 1970 RSV Adult > 60+ Yrs or (1 - Risk 60-74 years 1-dose series) 2011 Hemoglobin A1C Due 05/09/2018 11/09/2017, 09/09/2017 Preventative Health Evaluation 08/14/2018 08/14/2017, 07/22/2016, 06/12/2015 Colon Cancer Screening (Colonoscopy) 06/08/2019 06/08/2009 Depression Screening 08/20/2019 08/20/2018, 08/14/2017, 08/14/2017, Additional history exists Diabetes: Foot Exam 08/20/2019 08/20/2018 Fall Risk Assessment 08/20/2019 08/20/2018, 08/14/2017, 08/14/2017, Additional history exists Influenza Vaccine (#1) 2024 DTap / Tdap / Td (3 - Td or Tdap) 09/09/2027 09/09/2017, 06/16/2015 Hepatitis B Vaccines Aged Out No long er eligible based on patient's age to complete this topic RSV Ped < 20 months Aged Out No longe r eligible based on patient's age to complete this topic Medical Devices Implanted Type Area Fastener Sewing Machine Operator Device Identifier Shelf Expiration Date Model / Serial / Lot Sponge Surgifoam 100 [id number] 12.5x8cm Hemostatic Agent - [id number] - [id number] Implanted:Qty: 1 on 09/14/2017 [place] Carline Price DPM [place] [facility] [place] Hemostatic Agent [employer] 02/10/2021 1974 / / [id number] Advance Directives For more information, please contact: [phone] Latest Code Status on File Code Status Date Activated Date Inactivated Comments Full Code 10/28/2017 12:29 AM 11/04/2017 11:33 PM Thi s code status was ascertained in the following way: per retirement documentation. . Code Status History Code Status Date Activated Date Inactivated Comments Full Code 09/09/2017 8:34 PM 09/23/2017 3:01 AM This code status was ascertained in the following way: discussion with patient . Care Teams Scissors Grinder Relationship Specialty Start Date End Date Juan Carlos Luna MD PCP - General Internal Medicine 06/12/15
--- OUTSIDE RECORDS SUMMARY | 2024-11-22 13:50 | XMS_ITS | Clinical Summary ---
Author Organization [address] Address [address] [place] [address] Phone Care Team Providers Care Heel Slicker Name Role Phone Juan Carlos Luna MD Primary Care Provider [phone] Encounters Date Type Department Care Team Description 10/21/2024 Lab Requisition [facility] Lab [address] [place] [phone] Vanessa Winslow MD Metabolic encephalopathy 10/21/2024 Lab Requisition [facility] Lab [address] [place] [phone] Vanessa Winslow MD Urinary tract infection, site not specified 10/19/2024 Lab Requisition [facility] Lab [address] [place] [phone] Vanessa Winslow MD Unspecified atrial fibrillation (CMS/HCC); Type 2 diabetes mellitus with diabetic chronic kidney disease (CMS/HCC) 09/26/2024 Lab Requisition [facility] Lab [address] [place] [phone] Vanessa Winslow MD Magnesium deficiency; Hyperkalemia; Sepsis, unspecified organism (CMS/HCC) 09/23/2024 Lab Requisition [facility] Lab [address] [place] [phone] Vanessa Winslow MD Type 2 diabetes mellitus without complications (CMS/HCC); Essential (primary) hypertension; Unspecified atrial fibrillation (CMS/HCC) from Last 3 Months Surgical History Surgery Date Site/Laterality Comments OTHER SURGICAL HISTORY PROCEDURE:Left fibular fracture;COMMENT:01/14 COLONOSCOPY 06/22/2003 PROCEDURE:COLONOSCOPY;COMMENT:Yesi Berger - Benign appearing polyp at 20 cm COLONOSCOPY 06/08/2009 PROCEDURE:COLONOSCOPY;COMMENT:Yesi Berger - Colonic diverticulosis INCISION AND DRAINAGE FOOT 09/18/2017 Right PROCEDURE:INCISION AND DRAINAGE FOOT;COMMENT:Procedure: I&D FOOT; Surgeon: Carline Price DPM; Location: [facility] MAIN OPERATING ROOM; Service: Podiatry; Laterality: Right; LAYERED WOUND CLOSURE 09/18/2017 Right PROCEDURE:LAYERED WOUND CLOSURE;COMMENT:Procedure: CLOSURE WOUND SECONDARY; Surgeon: Carline Price DPM; Location: [facility] MAIN OPERATING ROOM; Service: Podiatry; Laterality: Right; INCISION AND DRAINAGE FOOT 09/14/2017 Right PROCEDURE:INCISION AND DRAINAGE FOOT;COMMENT:Procedure: I&D FOOT WITH REMOVAL OF BONE; Surgeon: Carline Price DPM; Location: [facility] AMBULATORY SURGERY; Service: Podiatry; Laterality: Right; TOE AMPUTATION 09/10/2017 Right PROCEDURE:TOE AMPUTATION;COMMENT:Procedure: AMPUTATION TOE, I&D RIGHT FOOT WITH REMOVAL OF BONE; Surgeon: Carline Price DPM; Location: [facility] MAIN OPERATING ROOM; Service: Podiatry; Laterality: Right; Medical History Medical History Date Comments Anxiety disorder 05/25/2015 DX:Anxiety diso rder BP (high blood pressure) 05/25/2015 DX:BP ( high blood pressure) Benign localized hyperplasia of prostate 05/25/2015 DX:Benign localized hyperpla beverley of prostate History of colon polyps DX:Histo ry of colon polyps History of mitral valve prolapse DX:History of mitral valve prolapse Diabetes mellitus (CMS/HCC) DX:D iabetes mellitus ([facility]);COMMENT:A1c 6.07 September 2017 Osteomyelitis of toe of righ t foot (CMS/HCC) DX:Osteomyelitis of toe of r ight foot ([facility]);COMMENT:third toe Family History Medical History Relation Name Comments [...] on file Sexual Orientation Not on file Obstetrics History Plan of Treatment Health Maintenance Due Date Last Done Comments COVID-19 Vaccine (#1) 01/14/1956 Pneumococcal Vaccine: 65+ Years (1 of 2 - PCV) 1957 Diabetes: Annual Foot Exam 1961 Diabetes: Annual Retina Eye Exam 1961 Zoster Vaccines (1 of 2) 1970 RSV Immunization Patients 60+ Years Old (1 - Risk 60-74 years 1-dose series) 2011 Influenza Vaccine (#1) 2024 Abdominal Aortic Aneurysm (AAA) Screen 09/23/2024 Cholesterol Screening (Lipid Panel) 09/23/2024 Colorectal Cancer Screening: Colonoscopy 09/23/2024 Depression Screening 09/23/2024 Diabetes: Annual Urine Albumin-Creatinine Ratio (uACR) 09/23/2024 Falls Risk Assessment 09/23/2024 Hepatitis C Screening 09/23/2024 Medicare Annual Wellness Visit 09/23/2024 Social Influencers of Health Screening 09/23/2024 Diabetes: Blood Sugar Control Test (HGBA1C) 03/23/2025 09/23/2024 Diabetes: Annual GFR (Glomerular Filtration Rate) 10/21/2025 10/21/2024, 10/19/2024, 09/26/2024, Additional history exists Hypertension/CHF/CAD Annual BMP Blood Test 10/21/2025 10/21/2024, 10/19/2024, 09/26/2024, Additional history exists DTaP,Tdap,and Td Vaccines (2 - Td or Tdap) 09/09/2027 09/09/2017 HIB Vaccines Aged Out No longer eligi ble based on patient's age to complete this topic HPV Vaccines Aged Out No longer eligi ble based on patient's age to complete this topic Hepatitis A Vaccines Aged Out No long er eligible based on patient's age to complete this topic Hepatitis B Vaccines Aged Out No long er eligible based on patient's age to complete this topic IPV Vaccines Aged Out No longer eligi ble based on patient's age to complete this topic MMR Vaccines Aged Out No longer eligi ble based on patient's age to complete this topic Meningococcal ACWY Vaccine Aged Out N o longer eligible based on patient's age to complete this topic RSV Immunization Patients Under 20 months Aged Out No longer eligible based on patient's age to complete this topic Varicella Vaccines Aged Out No longer eligible based on patient's age to complete this topic Procedures Procedure Name Priority Date/Time Associated Diagnosis Comments BASIC METABOLIC PANEL Routine 10/21/2024 6:03 AM EST Metabolic encephalopathy COMPLETE BLOOD COUNT Routine 10/21/2024 6:03 AM EST Metabolic encephalopathy URINALYSIS WITH REFLEX MICROSCOPIC Routine 10/20/2024 8:00 PM EST Urinary tract infection, site not specified BAIRD URINE CULTURE TUBE Routine 10/20/2024 8:00 PM EST Urinary tract infection, site not specified URINALYSIS WITH REFLEX MICROSCOPIC Routine 10/20/2024 8:00 PM EST Urinary tract infection, site not specified BASIC METABOLIC PANEL Routine 10/19/2024 10:30 AM EST Unspecified atrial fibrillation (CMS/HCC) Type 2 diabetes mellitus with diabetic chronic kidney disease (CMS/HCC) COMPLETE BLOOD COUNT Routine 10/19/2024 10:30 AM EST Unspecified atrial fibrillation (CMS/HCC) Type 2 diabetes mellitus with diabetic chronic kidney disease (CMS/HCC) BASIC METABOLIC PANEL Routine 09/26/2024 4:48 AM EST Magnesium deficiency Hyperkalemia Sepsis, unspecified organism (CMS/HCC) COMPLETE BLOOD COUNT Routine 09/26/2024 4:48 AM EST Magnesium deficiency Hyperkalemia Sepsis, unspecified organism (CMS/HCC) MAGNESIUM Routine 09/26/2024 4:48 AM EST Magnesium deficiency Hyperkalemia Sepsis, unspecified organism (CMS/HCC) MAGNESIUM Routine 09/23/2024 7:27 AM EST [...] Essential (primary) hypertension Unspecified atrial fibrillation (CMS/HCC) COMPLETE BLOOD COUNT Routine 09/23/2024 7:27 AM EST Type 2 diabetes mellitus without complications (CMS/HCC) Essential (primary) hypertension Unspecified atrial fibrillation (CMS/HCC) from Last 3 Months Results * (ABNORMAL) Complete blood count (10/21/2024 6:03 AM EST) Only the most recent of4 resultswithin the time period is included. WBC 9.3 4.8 - 10.8 K/mcL LAB HEMETOLOGY METHOD 10/21/2024 10:[address] [facility] RBC 3.30(L) 4.50 - 5.50 M/mcL LAB HEMETOLOGY METHOD 10/21/2024 10:[address] [facility] Hemoglobin 9.3(L) 13.5 - 17.5 g/dL LAB HEMETOLOGY METHOD 10/21/2024 10:[address] [facility] Hematocrit 31.0(L) 42.0 - 54.0 % LAB HEMETOLOGY METHOD 10/21/2024 10:[address] [facility] MCV 93.7 79.0 - 98.0 FL LAB HEMETOLOGY METHOD 10/21/2024 10:58 AM EST [facility] MCH 28.1 27.0 - 32.0 pcg LAB HEMETOLOGY METHOD 10/21/2024 10:[address] [facility] MCHC 30.0(L) 32.0 - 37.0 g/dL LAB HEMETOLOGY METHOD 10/21/2024 10:58 AM EST [facility] RDW 19.2(H) 11.0 - 15.0 % LAB HEMETOLOGY METHOD 10/21/2024 10:[address] [facility] Platelets 396 130 - 400 K/mcL LAB HEMETOLOGY METHOD 10/21/2024 10:[address] [facility] MPV 9.8 7.0 - 11.0 FL LAB HEMETOLOGY METHOD 10/21/2024 10:58 AM EST [facility] NRBC 0.0 <1.0 % LAB HEMETOLOGY METHOD 10/21/2024 10:[address] [facility] NRBC Absolute 0.00 <0.10 K/mcL LAB HEMETOLOGY METHOD 10/21/2024 10:[address] [facility] Blood Venous blood specimen / Unknown Venipuncture / Unknown 10/21/2024 6:03 AM EST 10/21/2024 10:16 AM EST Vanessa Winslow MD LAB BLOOD ORDERABLES [facility] [address] [place] [address], * (ABNORMAL) Basic metabolic panel (10/21/2024 6:03 AM EST) Only the most recent of3 resultswithin the time period is included. Sodium 140 133 - 145 mmol/L LAB CHEMISTRY METHOD 10/21/2024 11:16 AM EST [facility] Potassium 5.0 3.5 - 5.5 mmol/L LAB CHEMISTRY METHOD 10/21/2024 11:[address] [facility] Chloride 108 96 - 110 mmol/L LAB CHEMISTRY METHOD 10/21/2024 11:[address] [facility] CO2 26 21 - 32 mmol/L LAB CHEMISTRY METHOD 10/21/2024 11:[address] [facility] Anion Gap 6 3 - 11 LAB CHEMISTRY METHOD 10/21/2024 11:[address] [facility] Glucose 142(H) 70 - 100 mg/dL LAB CHEMISTRY METHOD 10/21/2024 11:[address] [facility] BUN 41(H) 5 - 25 mg/dL LAB CHEMISTRY METHOD 10/21/2024 11:[address] [facility] Creatinine 1.21 0.70 - 1.30 mg/dL LAB CHEMISTRY METHOD 10/21/2024 11:[address] [facility] eGFR 63 >=60 mL/min/1. 73m2 LAB CHEMISTRY METHOD 10/21/2024 11:[address] [facility] Comment:Calculation based on the??Chronic Kidney Disease Epidemiology Collaboration (CKD-EPI) equation refit??without adjustment for race. BUN/Creatinine Ratio 33.9 LAB CHEMISTRY METHOD 10/21/2024 11:[address] [facility] Calcium 9.1 8.5 - 10.5 mg/dL LAB CHEMISTRY METHOD 10/21/2024 11:[address] [facility] Blood Venous blood specimen / Unknown Venipuncture / Unknown 10/21/2024 6:03 AM EST 10/21/2024 10:16 AM EST Vanessa Winslow MD LAB BLOOD ORDERABLES [facility] [address] [place] [address], * (ABNORMAL) Urinalysis with reflex microscopic (10/20/2024 8:00 PM EST) Specific [place] Urine 1.022 1.003 - 1.030 LAB URINALYSIS - AUTOMATED METHOD 10/21/2024 11:[address] [facility] pH, Urine 7.0 5.0 - 8.0 pH LAB URINALYSIS - AUTOMATED METHOD 10/21/2024 11:[address] [facility] Leukocytes, Urine Moderate(A) Negative LAB URINALYSIS - AUTOMATED METHOD 10/21/2024 11:[address] [facility] Nitrite, Urine Negative Negative LAB URINALYSIS - AUTOMATED METHOD 10/21/2024 11:[address] [facility] Protein, Urine 100(A) <=Trace mg/dL LAB URINALYSIS - AUTOMATED METHOD 10/21/2024 11:[address] [facility] Glucose, Urine >=1000(A) Negative mg/dL LAB URINALYSIS - AUTOMATED METHOD 10/21/2024 11:[address] [facility] Ketones, Urine Negative Negative mg/dL LAB URINALYSIS - AUTOMATED METHOD 10/21/2024 11:[address] [facility] Urobilinogen , Urine 0.2 0.2 - 1.0 mg/dL LAB URINALYSIS - AUTOMATED METHOD 10/21/2024 11:[address] [facility] Bilirubin, Urine Negative Negative LAB URINALYSIS - AUTOMATED METHOD 10/21/2024 11:[address] [facility] Blood, Urine Small(A) Negative LAB URINALYSIS - AUTOMATED METHOD 10/21/2024 11:[address] [facility] RBC, Urine 8.6(H) 0 - 4 /HPF LAB URINALYSIS - AUTOMATED METHOD 10/21/2024 11:[address] [facility] WBC, Urine 293.5(H) 0 - 4 /HPF LAB URINALYSIS - AUTOMATED METHOD 10/21/2024 11:[address] [facility] Squamous Epithelial, Urine 3 0 - 60 /LPF LAB URINALYSIS - AUTOMATED METHOD 10/21/2024 11:[address] [facility] Bacteria, Urine Negative Negative /HPF LAB URINALYSIS - AUTOMATED METHOD 10/21/2024 11:[address] [facility] Hyaline Casts, Urine 0.0 0 - 3 /LPF LAB URINALYSIS - AUTOMATED METHOD 10/21/2024 11:[address] [facility] Urine Urine specimen obtained by clean catch procedure / Unknown Non-blood Collection / Unknown 10/20/2024 8:00 PM EST 10/21/2024 9:44 AM EST Vanessa Winslow MD LAB URINE ORDERABLES Performing Organization Address [facility]/ZIP Co de Phone Number [facility] [address] [place] [address], * Baird urine culture tube (10/20/2024 8:00 PM EST) Extra Tube Hold for add-ons. 10/21/2024 11:[address] [facility] Comment:Auto resulted. Urine Urine specimen obtained by clean catch procedure / Unknown Non-blood Collection / Unknown 10/20/2024 8:00 PM EST 10/21/2024 9:44 AM EST Vanessa Winslow MD LAB URINE ORDERABLES Performing Organization Address City/[facility]/ZIP Co de Phone Number [facility] [address] [place] [address], [place] [phone] * (ABNORMAL) Magnesium (09/26/2024 4:48 AM EST) Only the most recent of2 resultswithin the time period is included. Magnesium 1.8(L) 1.9 - 2.6 mg/dL LAB CHEMISTRY METHOD 09/26/2024 12:10 PM EST [facility] Blood Venous blood specimen / Unknown Venipuncture / Unknown 09/26/2024 4:48 AM EST 09/26/2024 10:23 AM EST Vanessa Winslow MD LAB BLOOD ORDERABLES [facility] [address] [place] [address], * Thyroid stimulating hormone (09/23/2024 7:27 AM EST) [facility] TSH 3.43 0.40 - 4.00 mcIU/mL LAB CHEMISTRY METHOD 09/23/2024 10:51 AM EST [facility] Blood Venous blood specimen / Unknown Venipuncture / Unknown 09/23/2024 7:27 AM EST 09/23/2024 9:33 AM EST Vanessa Winslow MD LAB BLOOD ORDERABLES Performing Organization Address City/[facility]/ZIP Co de Phone Number [facility] [address] [place] [address], [place] [phone] * Thyroxine free (09/23/2024 7:27 AM EST) [facility] Free T4 1.33 0.70 - 1.80 ng/dL LAB CHEMISTRY METHOD 09/23/2024 10:51 AM EST [facility] Blood Venous blood specimen / Unknown Venipuncture / Unknown 09/23/2024 7:27 AM EST 09/23/2024 9:33 AM EST Vanessa Winslow MD LAB BLOOD ORDERABLES [facility] [address] [place] [address], [place] [phone] * Hemoglobin A1c (09/23/2024 7:27 AM EST) [facility] Hemoglobin A1C 6.2 <6.5 % LAB CHEMISTRY METHOD 09/23/2024 11:[address] [facility] Mean Bld Glu Estim. 131 mg/dL LAB CHEMISTRY METHOD 09/23/2024 11:[address] [facility] Blood Venous blood specimen / Unknown Venipuncture / Unknown 09/23/2024 7:27 AM EST 09/23/2024 9:33 AM EST Vanessa Winslow MD LAB BLOOD ORDERABLES [facility] [address] [place] [address], * (ABNORMAL) Comprehensive metabolic panel (09/23/2024 7:27 AM EST) [facility] Sodium 141 133 - 145 mmol/L LAB CHEMISTRY METHOD 09/23/2024 10:[address] [facility] Potassium 4.3 3.5 - 5.5 mmol/L LAB CHEMISTRY METHOD 09/23/2024 10:[address] [facility] Chloride 109 96 - 110 mmol/L LAB CHEMISTRY METHOD 09/23/2024 10:[address] [facility] CO2 23 21 - 32 mmol/L LAB CHEMISTRY METHOD 09/23/2024 10:[address] [facility] Anion Gap 9 3 - 11 LAB CHEMISTRY METHOD 09/23/2024 10:[address] [facility] Glucose 88 70 - 100 mg/dL LAB CHEMISTRY METHOD 09/23/2024 10:[address] [facility] BUN 18 5 - 25 mg/dL LAB CHEMISTRY METHOD 09/23/2024 10:[address] [facility] Creatinine 1.23 0.70 - 1.30 mg/dL LAB CHEMISTRY METHOD 09/23/2024 10:[address] [facility] eGFR 62 >=60 mL/min/1. 73m2 LAB CHEMISTRY METHOD 09/23/2024 10:[address] [facility] Comment:Calculation based on the??Chronic Kidney Disease Epidemiology Collaboration (CKD-EPI) equation refit??without adjustment for race. BUN/Creatinine Ratio 14.6 LAB CHEMISTRY METHOD 09/23/2024 10:[address] [facility] Calcium 8.5 8.5 - 10.5 mg/dL LAB CHEMISTRY METHOD 09/23/2024 10:[address] [facility] AST (SGOT) 23 10 - 42 unit/L LAB CHEMISTRY METHOD 09/23/2024 10:[address] [facility] ALT (SGPT) 22 10 - 60 unit/L LAB CHEMISTRY METHOD 09/23/2024 10:[address] [facility] Alkaline Phosphatase 119 42 - 121 unit/L LAB CHEMISTRY METHOD 09/23/2024 10:[address] [facility] Total Protein 5.5(L) 6.0 - 8.0 g/dL LAB CHEMISTRY METHOD 09/23/2024 10:[address] [facility] Albumin 2.1(L) 3.2 - 5.0 g/dL LAB CHEMISTRY METHOD 09/23/2024 10:[address] [facility] Total Bilirubin 0.6 0.0 - 1.4 mg/dL LAB CHEMISTRY METHOD 09/23/2024 10:[address] [facility] Blood Venous blood specimen / Unknown Venipuncture / Unknown 09/23/2024 7:27 AM EST 09/23/2024 9:33 AM EST Vanessa Winslow MD LAB BLOOD ORDERABLES [facility] [address] [place] [address], from Last 3 Months Care Teams Heel Slicker Relationship Specialty Start Date End Date Juan Carlos Luna MD PCP - General Internal Medicine 06/12/15
--- OUTSIDE RECORDS SUMMARY | 2024-11-22 13:50 | XMS_ITS | Encounter Summary ---
Author Organization [facility] Address [address] [place] [address] Care Team Providers Care Director Of Therapy Services Name Role Phone Juan Carlos Luna MD Primary Care Provider [phone] Encounter Details Date Type Department Care Team (Late st Contact Info) Description 09/26/2024 Lab Requisition [facility] [address] [facility] [place] [address] Vanessa Winslow MD [address] [place] [id number] Magnesium deficiency; Hyperkalemia; Sepsis, unspecified organism (CMS/HCC) Social History Tobacco Use Types Packs/Day [...] Associated Diagnosis Comments COMPLETE BLOOD COUNT Routine 09/26/2024 4:48 AM EST Magnesium deficiency Hyperkalemia Sepsis, unspecified organism (CMS/HCC) MAGNESIUM Routine 09/26/2024 4:48 AM EST Magnesium deficiency Hyperkalemia Sepsis, unspecified organism (CMS/HCC) BASIC METABOLIC PANEL Routine 09/26/2024 4:48 AM EST Magnesium deficiency Hyperkalemia Sepsis, unspecified organism (CMS/HCC) documented in this encounter Results * (ABNORMAL) Basic metabolic panel (09/26/2024 4:48 AM EST) Sodium 142 133 - 145 mmol/L LAB CHEMISTRY METHOD 09/26/2024 12:10 PM [facility] Potassium 5.5 3.5 - 5.5 mmol/L LAB CHEMISTRY METHOD 09/26/2024 12:10 PM [facility] Chloride 110 96 - 110 mmol/L LAB CHEMISTRY METHOD 09/26/2024 12:10 PM [facility] CO2 23 21 - 32 mmol/L LAB CHEMISTRY METHOD 09/26/2024 12:10 PM [facility] Anion Gap 9 3 - 11 LAB CHEMISTRY METHOD 09/26/2024 12:10 PM [facility] Glucose 102(H) 70 - 100 mg/dL LAB CHEMISTRY METHOD 09/26/2024 12:10 PM [facility] BUN 18 5 - 25 mg/dL LAB CHEMISTRY METHOD 09/26/2024 12:10 PM [facility] Creatinine 1.31(H) 0.70 - 1.30 mg/dL LAB CHEMISTRY METHOD 09/26/2024 12:10 PM [facility] eGFR 57(L) >=60 mL/min/1. 73m2 LAB CHEMISTRY METHOD 09/26/2024 12:10 PM [facility] Comment:Calculation based on the??Chronic Kidney Disease Epidemiology Collaboration (CKD-EPI) equation refit??without adjustment for race. BUN/Creatinine Ratio 13.7 LAB CHEMISTRY METHOD 09/26/2024 12:10 PM [facility] Calcium 8.7 8.5 - 10.5 mg/dL LAB CHEMISTRY METHOD 09/26/2024 12:10 PM [facility] Blood Venous blood specimen / Unknown Venipuncture / Unknown 09/26/2024 4:48 AM EST 09/26/2024 10:23 AM EST Vanessa Winslow MD LAB BLOOD ORDERABLES [facility] [address] [place] [address], * (ABNORMAL) Complete blood count (09/26/2024 4:48 AM EST) [facility] Signature WBC 6.1 4.8 - 10.8 K/mcL LAB HEMETOLOGY METHOD 09/26/2024 10:59 AM EST [facility] RBC 3.30(L) 4.50 - 5.50 M/mcL LAB HEMETOLOGY METHOD 09/26/2024 10:59 AM [facility] Hemoglobin 9.0(L) 13.5 - 17.5 g/dL LAB HEMETOLOGY METHOD 09/26/2024 10:59 AM [facility] Hematocrit 29.8(L) 42.0 - 54.0 % LAB HEMETOLOGY METHOD 09/26/2024 10:59 AM [facility] MCV 89.5 79.0 - 98.0 FL LAB HEMETOLOGY METHOD 09/26/2024 10:59 AM [facility] MCH 27.0 27.0 - 32.0 pcg LAB HEMETOLOGY METHOD 09/26/2024 10:59 AM [facility] MCHC 30.2(L) 32.0 - 37.0 g/dL LAB HEMETOLOGY METHOD 09/26/2024 10:59 AM [facility] RDW 16.9(H) 11.0 - 15.0 % LAB HEMETOLOGY METHOD 09/26/2024 10:59 AM [facility] Platelets 291 130 - 400 K/mcL LAB HEMETOLOGY METHOD 09/26/2024 10:59 AM [facility] MPV 9.7 7.0 - 11.0 FL LAB HEMETOLOGY METHOD 09/26/2024 10:59 AM [facility] NRBC 0.0 <1.0 % LAB HEMETOLOGY METHOD 09/26/2024 10:59 AM EST [facility] NRBC Absolute 0.00 <0.10 K/mcL LAB HEMETOLOGY METHOD 09/26/2024 10:59 AM EST [facility] Blood Venous blood specimen / Unknown Venipuncture / Unknown 09/26/2024 4:48 AM EST 09/26/2024 10:23 AM EST Vanessa Winslow MD LAB BLOOD ORDERABLES [facility] [address] [place] [address], * (ABNORMAL) Magnesium (09/26/2024 4:48 AM EST) Magnesium 1.8(L) 1.9 - 2.6 mg/dL LAB CHEMISTRY METHOD 09/26/2024 12:10 PM EST [facility] Blood Venous blood specimen / Unknown Venipuncture / Unknown 09/26/2024 4:48 AM EST 09/26/2024 10:23 AM EST Vanessa Winslow MD LAB BLOOD ORDERABLES [facility] [address] [place] [address], documented in this encounter Visit Diagnoses Diagnosis Magnesium deficiency Disorders of magnesium metabolism Hyperkalemia Hyperpotassemia Sepsis, unspecified organism (CMS/HCC) documented in this encounter Care Teams Director Of Therapy Services Relationship Specialty Start Date End Date Juan Carlos Luna MD PCP - General Internal Medicine 06/12/15 documented as of this encounter
--- OUTSIDE RECORDS SUMMARY | 2024-11-22 13:50 | XMS_ITS ---
Author Organization [facility] Address [address] [place] [address] Care Team Providers Care Manufacturing Automation Engineer Name Role Phone Ramin Medrano MD Primary Care Provider Berry Quiles [phone] REASON FOR VISIT Painful nail(s) aggrevated by shoes and causing difficulty standing/walking., Open sore Medications Medication SIG (Take, Route, Frequency, Duration) Notes Start Date End Date Status Extra Depth Diabetic Shoes with 3 Pair Custom heat-molded multi-density innersoles for 1 year Dx: Active Clindamycin HCl 300 MG 1 capsule Orally every 6 hrs for 10 day(s) Active Encounters Encounter Location Date Provider Diagnosis [facility] [address] [place] [address] 06/08/2024 Berry Arnold Type 2 diabetes mellitus [...] as necessary. Patient chooses, no pharmaceutical tx (58574) Debride skin and subQ Open wound Open [...] symptoms of infection or any untoward reactions (55490), Keratoma Treatment Parring or Cutting o f Benign Hyperkeratotic Lesion(s) 06205 (2-4 Lesions) - The Benign hyperkeratotic lesions, as described above were pared, and/or cut utilizing a sterile #15 blade, tissue nippers, and/or deepali, Q7 Progress Notes * Shashank FREGOSO JrDOB:[birth year] (74 yo M)Acc No.[id number]:06/08/2024 Progress Note Patient:?Shashank FREGOSO J r Provider:?Berry Arnold DPM :1950???Age:74 Y???Sex:Male Juan Pablo e:06/08/2024 Address:[address] [place] [address], [facility] [place], [id number] Pcp:Ramin Medrano MD Subjective: * Chief Complaints: * ???1. Painful nail(s) aggrev ated by shoes and causing difficulty standing/walking.. 2. Open sore. * HPI: ???Skin problems:?Nature:?Ulcer, bleeding.?Location:?Bottom, Midfoot, Left .?Onset/Cause:?unknown; dpn.?Course:?improved.?Treatments:?compliance with wound care daily and he?started at [facility] on 01/25/24 adn seeing them weekly and [...] as necessary. Patient chooses, no pharmaceutical tx (65454).?Debride skin and subQ:?Open wound?Open wound selective debridement [...] symptoms of infection or any untoward reactions (22254), .?Keratoma Treatment:?Parring or Cutting of Benign Hyperkeratotic Lesion(s)?71401 (2-4 Lesions) - The Benign hyperkeratotic lesions, as described above were pared, and/or cut utilizing a sterile #15 blade, tissue nippers, and/or dremel, Q7.? * Procedure Codes:?09070 DEBRI DE NAIL, 6 OR MORE, Modifiers: XS , 82008 TRIM SKIN LESIONS, OVER 4, Modifiers: XS , 99388 X-RAY EXAM OF LEFT FOOT 3V, Modifiers: 26 , LT, [address] DEBRIDE SKIN/TISSUE, Modifiers: XS * Follow Up:?1 Week * Images: * The named appointment provid er may or may not be the originator of this progress note, and it is not deemed complete until electronically signed by the appointment provider. Sign off status: Pending * Provider:?Berry Arnold DPM Date:? 024 Generated for Gaurang luz/Carmen/Peterson on:?11/22/2024 01:50 PM EST History and Physical Notes * HPI (History of Present Illness) Category Sub-Category Detail Notes Category Not es Skin problems Nature: Ulcer, bleeding Location: Bottom, Midfoot, Lef t Onset/Cause: unknown; dpn Course: improved Treatments: compliance with woun d care daily and he started at [facility] on 01/25/24 adn seeing them weekly and [...]
--- OUTSIDE RECORDS SUMMARY | 2024-11-22 13:50 | XMS_ITS | Encounter Summary ---
Author Organization [facility] Address [address] [place] [address] Care Team Providers Care Book Packer Name Role Phone Juan Carlos Luna MD Primary Care Provider [phone] Encounter Details Date Type Department Care Team (Late st Contact Info) Description 10/19/2024 Lab Requisition [facility] - Main Lab [address] [facility] [place] [address] Vanessa Winslow MD [address] [place] [address] [phone] Unspecified atrial fibrillation (CMS/HCC); Type 2 diabetes mellitus with diabetic chronic kidney disease (CMS/HCC) Social History Tobacco Use Types Packs/Day [...] Associated Diagnosis Comments COMPLETE BLOOD COUNT Routine 10/19/2024 10:30 AM EST Unspecified atrial fibrillation (CMS/HCC) Type 2 diabetes mellitus with diabetic chronic kidney disease (CMS/HCC) BASIC METABOLIC PANEL Routine 10/19/2024 10:30 AM EST Unspecified atrial fibrillation (CMS/HCC) Type 2 diabetes mellitus with diabetic chronic kidney disease (CMS/HCC) documented in this encounter Results * (ABNORMAL) Basic metabolic panel (10/19/2024 10:30 AM EST) Sodium 139 133 - 145 mmol/L LAB CHEMISTRY METHOD 10/19/2024 2:04 PM [facility] Potassium 4.7 3.5 - 5.5 mmol/L LAB CHEMISTRY METHOD 10/19/2024 2:04 PM [facility] Chloride 107 96 - 110 mmol/L LAB CHEMISTRY METHOD 10/19/2024 2:04 PM [facility] CO2 24 21 - 32 mmol/L LAB CHEMISTRY METHOD 10/19/2024 2:04 PM [facility] Anion Gap 8 3 - 11 LAB CHEMISTRY METHOD 10/19/2024 2:04 PM [facility] Glucose 179(H) 70 - 100 mg/dL LAB CHEMISTRY METHOD 10/19/2024 2:04 PM [facility] BUN 42(H) 5 - 25 mg/dL LAB CHEMISTRY METHOD 10/19/2024 2:04 PM [facility] Comment:Results verified by repeat testing Creatinine 1.40(H) 0.70 - 1.30 mg/dL LAB CHEMISTRY METHOD 10/19/2024 2:04 PM [facility] eGFR 53(L) >=60 mL/min/1. 73m2 LAB CHEMISTRY METHOD 10/19/2024 2:04 PM [facility] Comment:Calculation based on the??Chronic Kidney Disease Epidemiology Collaboration (CKD-EPI) equation refit??without adjustment for race. BUN/Creatinine Ratio 30.0 LAB CHEMISTRY METHOD 10/19/2024 2:04 PM [facility] Calcium 9.5 8.5 - 10.5 mg/dL LAB CHEMISTRY METHOD 10/19/2024 2:04 PM [facility] Blood Venous blood specimen / Unknown Venipuncture / Unknown 10/19/2024 10:30 AM EST 10/19/2024 11:49 AM EST Vanessa Winslow MD LAB BLOOD ORDERABLES [facility] [address] [place] [address], * (ABNORMAL) Complete blood count (10/19/2024 10:30 AM EST) WBC 12.6(H) 4.8 - 10.8 K/mcL LAB HEMETOLOGY METHOD 10/19/2024 1:32 PM EST [facility] RBC 3.50(L) 4.50 - 5.50 M/mcL LAB HEMETOLOGY METHOD 10/19/2024 1:32 PM EST [facility] Hemoglobin 9.7(L) 13.5 - 17.5 g/dL LAB HEMETOLOGY METHOD 10/19/2024 1:32 PM [facility] Hematocrit 31.9(L) 42.0 - 54.0 % LAB HEMETOLOGY METHOD 10/19/2024 1:32 PM EST [facility] MCV 91.7 79.0 - 98.0 FL LAB HEMETOLOGY METHOD 10/19/2024 1:32 PM EST [facility] MCH 27.9 27.0 - 32.0 pcg LAB HEMETOLOGY METHOD 10/19/2024 1:32 PM [facility] MCHC 30.4(L) 32.0 - 37.0 g/dL LAB HEMETOLOGY METHOD 10/19/2024 1:32 PM EST [facility] RDW 19.3(H) 11.0 - 15.0 % LAB HEMETOLOGY METHOD 10/19/2024 1:32 PM EST [facility] Platelets 485(H) 130 - 400 K/mcL LAB HEMETOLOGY METHOD 10/19/2024 1:32 PM EST [facility] MPV 9.6 7.0 - 11.0 FL LAB HEMETOLOGY METHOD 10/19/2024 1:32 PM [facility] NRBC 0.0 <1.0 % LAB HEMETOLOGY METHOD 10/19/2024 1:32 PM EST [facility] NRBC Absolute 0.00 <0.10 K/mcL LAB HEMETOLOGY METHOD 10/19/2024 1:32 PM EST [facility] Blood Venous blood specimen / Unknown Venipuncture / Unknown 10/19/2024 10:30 AM EST 10/19/2024 11:49 AM EST Vanessa Winslow MD LAB BLOOD ORDERABLES [facility] [address] [place], [place] [address] [phone] documented in this encounter Visit Diagnoses Diagnosis Unspecified atrial fibrillation (CMS/HCC) Type 2 diabetes mellitus with diabetic chronic kidney disease (CMS/HCC) documented in this encounter Care Teams Book Packer Relationship Specialty Start Date End Date Juan Carlos Luna MD PCP - General Internal Medicine 06/12/15 documented as of this encounter
--- OUTSIDE RECORDS SUMMARY | 2024-11-22 13:51 | XMS_ITS | Patient Health Record ---
Author Organization [facility] Address [address] [facility] [place] [address] Care Team Providers Care Custom Protection Officer Name Role Phone Ramin Medrano MD Primary Care Provider Berry Quiles Unavailable [phone] Allergies Allergen (clinical drug ingredient) Drug/Non Drug [...] Active confirmed Problem Chronic ulcer of foot (891780119) Non-pressure chronic ulcer of other part of left foot with fat layer exposed (L97.522) Active confirmed Problem Non-pressure chronic ulcer of other part of left foot limited to breakdown of skin (L97.521) Active confirmed Problem Non-pressure chronic ulcer of other part of right foot limited to breakdown of skin (L97.511) Active confirmed Problem Polyneuropathy due to type 2 diabetes mellitus (370028669) Type 2 diabetes mellitus with diabetic polyneuropathy (E11.42) Active confirmed Problem Polyneuropathy due to diabetes mellitus type I (183126553) Type 1 diabetes mellitus with diabetic polyneuropathy (E10.42) Active confirmed Problem 877277941 Hammertoe of lef t foot (M20.42) Active confirmed Problem [id number] Subacute osteomyelitis of left foot (M86.272) Active confirmed Problem 017606319094860 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) Active confirmed Vital Signs Blood pressure diastolic 80 mm Hg 02/25/2024 Height 6ft 3in in 02/25/2024 Blood pressure systolic 140 mm Hg 02/25/2024 Weight 200 lbs 02/25/2024 BMI 25.00 kg/m2 02/25/2024 Procedures Procedure Date Ordered Date Performed Result Body Sit e 68585-TGSYPPI SKIN/TISSUE 01/06/2024 N/A 35175-LQWUSXC SKIN/TISSUE 2024 N/A Encounters Encounter Location Date Provider Diagnosis [facility] [place] [address] [place] [address] 01/06/2024 Berry Arnold Type 2 diabetes mellitus with diabetic polyneuropathy E11.42 ; Pain in right toe(s) M79.674 ; Tinea unguium B35.1 ; Pain in left toe(s) M79.675 ; Hammertoe of left foot M20.42 ; Xerosis cutis L85.3 ; Non-pressure chronic ulcer of other part of left foot with fat layer exposed L97.522 and Cellulitis of left foot L03.116 [facility] [place] [address] [place] [address] 2024 Berry Arnold Type 2 diabetes mellitus with diabetic polyneuropathy E11.42 and Non-pressure chronic ulcer of other part of left foot with fat layer exposed L97.522 [facility] [address] [address] 02/25/2024 Berry Arnold Type 2 diabetes mellitus with diabetic polyneuropathy E11.42 and Non-pressure chronic ulcer of other part of left foot with fat layer exposed L97.522 [facility] [address] [address] 12/28/2023 [facility] [address] [place] [address] 01/06/2024 [facility] [address] [address] 01/06/2024 [facility] [address] [address] 01/06/2024 [facility] [address] [address] 01/07/2024 [facility] [address] [address] 02/04/2024 [facility] [address] [address] 02/16/2024 [facility] [address] [address] 05/09/2024 [facility] [address] [address] 06/09/2024 Berry Arnold Assessments Encounter Date Diagnosis [...] X ray : Foot, right 3V 01/14/2021 42424-TXUZKQZ SKIN/TISSUE 12/04/2021 09700-ERAKXGA SKIN/TISSUE 01/14/2021 94903-MDRTODE SKIN/TISSUE 01/06/2024 96696-SSZMHMR SKIN/TISSUE 2024 93903-ADYL SKIN LESIONS, OVER 4 01/15/20 21 13956-GGBM SKIN LESIONS, OVER 4 07/03/20 21 52412-BDQB SKIN LESIONS, OVER 4 10/30/20 21 26375-CYZM SKIN LESIONS, OVER 4 12/17/19 23 24047-ULEC SKIN LESIONS, 2 TO 4 03/13/20 22 Insurance Providers Payer Name Payer Address Payer Phone Subscriber Number Group Number Insured Name Patient Relationship to Insured Coverage Start Date Coverage End Date Medicare [employer] [address] [place] [address] [id number] Shashank Fregoso Self - patient is the insured [facility] [address] [place] [address] [id number] Shashank Fregoso Self - patient is the [...]
--- OUTSIDE RECORDS SUMMARY | 2024-11-22 13:51 | XMS_ITS ---
Author Organization [facility] on Address Unknown Problems Problem Status Start Date End Date CELLULITIS OF RIGHT LOWER LI MB (Primary) (L03.115 - ICD-10-CM) ACTIVE 06/11/2024 ENTEROCOLITIS DUE TO CLOSTRI DIUM DIFFICILE, NOT SPECIFIED RECURRENT (A04.72 - ICD-10-CM) ACTIVE 06/11/2024 SEPSIS, UNSPECIFIED ORGANISM (A41.9 - ICD-10-CM) ACTIV E 06/11/2024 ACUTE KIDNEY FAILURE, UNSPECIFIED (N17.9 - ICD-10-CM) ACTIVE 06/11/2024 URINARY TRACT INFECTION, SIT E NOT SPECIFIED (N39.0 - ICD-10-CM) ACTIVE 06/11/2024 TYPE 2 DIABETES MELLITUS WIT H DIABETIC NEUROPATHY, UNSPECIFIED (E11.40 - ICD-10-CM) ACTIVE 06/11/2024 NON-PRESSURE CHRONIC ULCER O F OTHER PART OF LEFT FOOT WITH UNSPECIFIED SEVERITY (L97.529 - ICD-10-CM) ACTIVE 06/11/2024 LOCAL INFECTION OF THE SKIN AND SUBCUTANEOUS TISSUE, UNSPECIFIED (L08.9 - ICD-10-CM) ACTIVE 06/11/2024 UNSPECIFIED ATRIAL FIBRILLATION (I48.91 - ICD-10-CM) A CTIVE 06/11/2024 OBSTRUCTIVE AND REFLUX UROPA THY, UNSPECIFIED (N13.9 - ICD-10-CM) ACTIVE 06/11/2024 ESSENTIAL (PRIMARY) HYPERTENSION (I10 - ICD-10-CM) ACT LULA 06/11/2024 PERIPHERAL VASCULAR DISEASE, UNSPECIFIED (I73.9 - ICD-10-CM) ACTIVE 06/11/2024 BLADDER-NECK OBSTRUCTION (N32.0 - ICD-10-CM) ACTIVE 06/11/2024 OTHER HYDRONEPHROSIS (N13.39 - ICD-10-CM) ACTIVE 06/11/2024 ANEMIA, UNSPECIFIED (D64.9 - ICD-10-CM) ACTIVE 0 06/11/2024 Encounters Encounter Performer Performer Role Encounter Diagnoses Location Date Discharge - Discharged to home or self care - Home - Other [facility] 06/11/2024 07:22 pm EDT - 06/30/2024 11:18 am EDT Immunizations Vaccine Date SARS-COV-2 (COVID-19) 08/22/2021 12:00 a m EDT SARS-COV-2 (COVID-19) 07/15/2021 12:00 a m EDT Prevnar 20 Pneumococcal conjugate (PCV20 ) RSV, recombinant, protein subunit RSVpre F, adjuvant rec COVID-19 vaccine, vector-nr, rS-Ad26, PF , 0.5 mL Social History
--- OUTSIDE RECORDS SUMMARY | 2024-11-22 13:51 | XMS_ITS ---
Author Organization [facility] Address [address] [place] [address] Care Team Providers Care Rn Nursery Name Role Phone Ramin Medrano MD Primary Care Provider Berry Quiles Unavailable [phone] REASON FOR VISIT Painful nail(s) aggrevated by shoes and causing difficulty standing/walking. Medications Medication SIG (Take, Route, Frequency, Duration) Notes Start Date End Date Status Extra Depth Diabetic Shoes with 3 Pair Custom heat-molded multi-density innersoles for 1 year Dx: Active Encounters Encounter Location Date Provider Diagnosis [facility] [address] [place] [address] 05/09/2024 Berry Arnold Type 2 diabetes mellitus [...] as necessary. Patient chooses, no pharmaceutical tx (99135) Keratoma Treatment Parring or Cutting o f Benign Hyperkeratotic Lesion(s) 04986 (2-4 Lesions) - The Benign hyperkeratotic lesions, as described above were pared, and/or cut utilizing a sterile #15 blade, tissue nippers, and/or dremel, Q7 Progress Notes * Shashank FREGOSO JrDOB:[birth year] (74 yo M)Acc No.[id number]:05/09/2024 Progress Note Patient:?Shashank FREGOSO r Provider:?Berry Arnold DPM :1950???Age:74 Y???Sex:Male Juan Pablo e:05/09/2024 Address:[address] [place], [place] [id number] Pcp:Ramin Medrano MD Subjective: * Chief Complaints: [...] as necessary. Patient chooses, no pharmaceutical tx (48479).?Keratoma Treatment:?Parring or Cutting of Benign Hyperkeratotic Lesion(s)?33080 (2-4 Lesions) - The Benign hyperkeratotic lesions, as described above were pared, and/or cut utilizing a sterile #15 blade, tissue nippers, and/or dremel, Q7.? * Procedure Codes:?97098 DEBRI DE NAIL, 6 OR MORE, Modifiers: XS , 42862 TRIM SKIN LESIONS, OVER 4, Modifiers: XS [...]
== END 2024-11-22 12:13 | disposition home or self-care (01) ==
LOC: HO.10HDL 12:12
PROVIDERS: Visit Provider Internal Medicine
DX: I48.91 Unspecified atrial fibrillation (principal); I10 Essential (primary) hypertension; N40.0 Benign prostatic hyperplasia without lower urinary tract symptoms; E55.9 Vitamin D deficiency, unspecified
CPT/HCPCS: 36415; 80053; 82306; 83036; 83735; 85025

== ENCOUNTER → 2024-12-07 08:54 | Outpatient (BNVA) | payer MEDICARE, BC, SELFPAY | PROVIDERS: PCP Internal Medicine; Visit Provider Urology | DX: R33.9 Retention of urine, unspecified (principal) | CPT/HCPCS: 51700; 51798 ==

== ENCOUNTER 2025-01-19 14:36 | Outpatient (AMB) | payer MEDICARE, BC, SELFPAY ==
[2025-01-19 15:09] VITALS: BP 124/70; PULSE 75; RESP 17; TEMP 36.4; O2SAT 99; BMI 22.1
--- NOTE | 2025-01-19 15:09 | A.OFFPC_ITS ---
Vital Signs 01/19/25 15:09 Height 6 ft 2 in Weight 172 lb BMI 22.1 BP 124/70 Blood Pressure Location Lt brachial Position Sitting Respiration 17 Pulse 75 Pulse Source Pulse Oximeter Temp 97.6 F Temp Source Axillary Pulse Oximetry (%) 99 Intake Visit Reasons: Routine Intake Note: Pt is here for a follow up appt to see the Doctor. Cloth Mercerizer Back Tender Required: No Allergies penicillin V Allergy (Intermediate, Verified 01/19/25 15:16) rash amoxicillin Allergy (Verified 01/19/25 15:16) Unknown Erythromycin Allergy (Intermediate, Uncoded 01/19/25 15:16) diarrhea Fall risk assessment: No Falls in past year Dental Screening Did you have a dental visit in the last 12 months?: No Did you have a dental problem in the last 6 months where you did not have access to dental care?: No Was dental information given to patient?: No HPI HPI Comments History of Present Illness Details 75 yo male with past medical of afib, ht n, bph, anemia, presenting for follow up Difficult year with 4 hospitalizations-had uti, sepsis, norovirus, c diff. Feels well presently Endocrine: Diabetes. Last A1C 5.4% November. CV: Seeing cardiology 01/27. Afib on eliquis and metoprolol Urology: Follows with Dr Boateng. On finasteride. Off catheter. ROS CONSTITUTIONAL: Denies weight loss, fever and chills. HEENT: Denies changes in vision and hearing. RESPIRATORY: Denies SOB and cough. CV: Denies palpitations and CP GI: Denies abdominal pain, nausea, vomiting and diarrhea. : Denies dysuria and urinary frequency. MSK: Denies new myalgia and joint pain. SKIN: Denies rash and pruritus. NEUROLOGICAL: Denies headache PSYCHIATRIC: Denies recent changes in mood. PHYSICAL EXAM: GENERAL: Alert and oriented x 3. NAD EYES: EOMI. Anicteric. HENT: Moist mucous membranes. No scleral icterus. No cervical lymphadenopathy. LUNGS: Clear to auscultation bilaterally. CARDIOVASCULAR: Regular rate and rhythm. No murmur. No JVD. ABDOMEN: Soft, non-tender +bs EXTREMITIES: No edema. Non-tender. SKIN: No rashes or lesions. Warm. NEUROLOGIC: No focal neurological deficits. CN II-XII grossly intact PSYCHIATRIC: Cooperative. Appropriate mood and affect [facility] Medical History (Updated 01/22/25 @ 19:30 by Nusrat Mcdonald MD) PAF (paroxysmal atrial fibrillation) History of Clostridioides difficile infection Bacteriuria Bladder outlet obstruction Psoriasis Sepsis Elevated cholesterol Anemia BPH (benign prostatic hyperplasia) Diabetes Vitamin D deficiency Neuropathy HTN (hypertension) Chronic a-fib Amputation of great toe Osteomyelitis PVD (peripheral vascular disease) Amputation of toe of left foot Pre-diabetes History of neuropathy Arrhythmia Osteomyelitis of second toe of left foot Ulcer of left second toe Amputated toe of right foot History of heart valve abnormality Surgical History History of amputation of toe Status post amputation of toe Hx of amputation Status post ORIF of fracture of ankle Family History Mother CAD (coronary artery disease) Social History Household Members: Family Household Members Other:: Bother Housing: House Are you a primary geriatric personal care aide to a significant other at home: No Do you presently have visiting nurse or other home services: Yes (living Nurse) Alcohol intake: never Comment: s/p unwitnessed fall, camera placed in room for additional monitoring Patient Tobacco Use Status: Never used Tobacco e-Cigarette/Vaping Use: Never Used Second Hand Smoke Exposure: No Advance Directives Date on File: 08/07/20 service: No Current occupational status: retired Cognitive needs: No Hearing needs: No Vision needs: No Questionnaire Thrive Questionnaire Date Thrive assessed: 11/08/24 Physical exam (Primary Care) Vital Signs: Last Vital Signs Temp 97.6 F 01/19/25 15:09 Pulse 75 01/19/25 15:09 Resp 17 01/19/25 15:09 BP 124/70 01/19/25 15:09 Pulse Ox 99 01/19/25 15:09 BMI result Body Mass Index 22.1 Tobacco/Smoking Status: Tobacco use Status Patient Tobacco Use Status Never used Tobacco 01/19/25 15:23 e-Cigarette/Vaping Use Never Used 01/19/25 15:23 Thrive Assessment: Date of Thrive Assessment Date Thrive assessed 11/08/24 01/19/25 15:23 Coding Level of Care Code New Pt Level 4 (68019) Complex EM visit Add On G2211 Diagnoses Diabetic polyneuropathy associated with diabetes mellitus due to underlying condition E08.42 Diabetes mellitus complication detail: diabetic polyneuropathy PAF (paroxysmal atrial fibrillation) I48.0 Assessment & Plan Assessment & Plan (1) Diabetic neuropathy associated with diabetes mellitus due to underlying condition: Code(s): E08.40 - Diabetes mellitus due to underlying condition with diabetic neuropathy, unspecified Category: Medical Qualifiers: Diabetes mellitus complication detail: diabetic polyneuropathy Qualified Code(s): E08.42 - Diabetes mellitus due to underlying condition with diabetic polyneuropathy (2) PAF (paroxysmal atrial fibrillation): Code(s): I48.0 - Paroxysmal atrial fibrillation Category: Medical Plan 75 year old for follow up. Past medical, surgical, social and family history reviewed. labs ordered. follow up diabetes Orders: Orders Complete Blood Count Auto Diff 2 Months E08.40 - Diabetes mellitus due to underlying condition with diabetic neuropathy, unspecified, Z13.0 - Encounter for screening for diseases of the blood and blood-forming organs and certain disorders involving the immune mechanism Comprehensive Met. Panel 2 Months E08.40 - Diabetes mellitus due to underlying condition with diabetic neuropathy, unspecified, Z13.0 - Encounter for screening for diseases of the blood and blood-forming organs and certain disorders involving the immune mechanism Hemoglobin A1c 2 Months E08.40 - Diabetes mellitus due to underlying condition with diabetic neuropathy, unspecified, Z13.0 - Encounter for screening for diseases of the blood and blood-forming organs and certain disorders involving the immune mechanism Lipid Panel 2 Months E08.40 - Diabetes mellitus due to underlying condition with diabetic neuropathy, unspecified, Z13.0 - Encounter for screening for diseases of the blood and blood-forming organs and certain disorders involving the immune mechanism TSH reflex Free T4 2 Months E08.40 - Diabetes mellitus due to underlying condition with diabetic neuropathy, unspecified, Z13.0 - Encounter for screening for diseases of the blood and blood-forming organs and certain disorders involving the immune mechanism
== END 2025-01-19 15:40 | disposition home or self-care (01) ==
LOC: HO.HMCHD 14:36
PROVIDERS: PCP Internal Medicine; Visit Provider Internal Medicine
DX: I48.0 Paroxysmal atrial fibrillation (principal); E08.42 Diabetes mellitus due to underlying condition with diabetic polyneuropathy

== ENCOUNTER → 2025-01-19 14:36 | Outpatient (BNVA) | payer MEDICARE, BC, SELFPAY | PROVIDERS: PCP Internal Medicine; Visit Provider Internal Medicine | DX: I48.0 Paroxysmal atrial fibrillation (principal); E08.42 Diabetes mellitus due to underlying condition with diabetic polyneuropathy; I48.91 Unspecified atrial fibrillation; I10 Essential (primary) hypertension; N40.0 Benign prostatic hyperplasia without lower urinary tract symptoms | CPT/HCPCS: 99202 ==

== ENCOUNTER 2025-01-27 09:41 | Outpatient (AMB) | payer MEDICARE, BC, SELFPAY ==
--- NOTE | 2025-01-27 10:02 | A.OFFVIS_ITS ---
Vital Signs 01/27/25 10:03 Height 6 ft 2 in Weight 178 lb 9.191 oz BMI 22.9 BP 110/70 Blood Pressure Location Lt brachial Position Sitting Pulse 67 Pulse Source Monitor Intake Visit Reasons: r/s 08/17/24 1 yr followup w/ekg Intake Note: r/s 1 yr f/up Shop Lead Required: No Accompanied by: Self / Same As Patient Allergies penicillin V Allergy (Intermediate, Verified 01/19/25 15:16) rash amoxicillin Allergy (Verified 01/19/25 15:16) Unknown Erythromycin Allergy (Intermediate, Uncoded 01/19/25 15:16) diarrhea Medication List - Last Reconciled 01/27/25 by Sharif Alexandre MD acetaminophen 650 mg PO Q4H PRN amiodarone 200 mg PO DAILY apixaban (Eliquis) 5 mg PO BID bethanechol chloride 25 mg PO BID 90 days bisacodyl 10 mg NE DAILY PRN dapagliflozin propanediol (Farxiga) 10 mg PO DAILY folic acid 1 mg PO DAILY glucagon 1 mg subcut Q15M PRN lancets As directed magnesium hydroxide (Milk of Magnesia) 30 mL PO BEDTIME PRN magnesium oxide 400 mg PO DAILY metoprolol tartrate 25 mg PO BID midodrine 10 mg PO Q8H PRN potassium chloride ER 8 mEq PO BID sodium phosphates 19-7 gram/118 mL (Fleet Enema) 118 mL NE DAILY PRN thiamine HCl (vitamin B1) 100 mg PO DAILY HPI Comments Details: 75-year-old gentleman with history of paroxysmal atrial fibrillation was here for follow-up. He has been doing well. He had COVID-19 infection in July 2022 and was in the hospital for 4 days. He is saying he has recovered from that. He also had toe amputation due to diabetes. Denying chest pain or shortness of breath. No palpitations. EKG in the office is showing sinus rhythm. No bleeding concerns with Eliquis. 08/26/2023: He returns for follow-up. He is undergoing cataract surgery. He also has urinary incontinence and is following in neurology. Blood pressure is a little elevated. Overall clinically stable. No bleeding concerns. 01/27/2025: Here for follow-up. He had a rough last year unfortunately and had multiple issues including urinary tract infection and sepsis for which she was in the intensive care unit at [facility]. He also had norovirus after that. He has lost a lot of weight. It appears he was started on amiodarone at [facility] along with metoprolol potentially for rate control during his sepsis episode. He is taking medication regularly. Heart rate is well controlled. Denying any significant symptoms currently. [facility] Medical History (Updated 01/27/25 @ 11:25 by Sharif Alexander MD) PAF (paroxysmal atrial fibrillation) History of Clostridioides difficile infection Bacteriuria Bladder outlet obstruction Psoriasis Sepsis Elevated cholesterol Anemia BPH (benign prostatic hyperplasia) Diabetes Vitamin D deficiency Neuropathy HTN (hypertension) Chronic a-fib Amputation of great toe Osteomyelitis PVD (peripheral vascular disease) Amputation of toe of left foot Pre-diabetes History of neuropathy Arrhythmia Osteomyelitis of second toe of left foot Ulcer of left second toe Amputated toe of right foot History of heart valve abnormality Surgical History History of amputation of toe Status post amputation of toe Hx of amputation Status post ORIF of fracture of ankle Family History Mother CAD (coronary artery disease) Social History Household Members: Family Household Members Other:: Bother Housing: House Are you a primary child care assistant to a significant other at home: No Do you presently have visiting nurse or other home services: Yes (living Nurse) Alcohol intake: never Comment: s/p unwitnessed fall, camera placed in room for additional monitoring Patient Tobacco Use Status: Never used Tobacco e-Cigarette/Vaping Use: Never Used Second Hand Smoke Exposure: No Advance Directives Date on File: 08/07/20 service: No Current occupational status: retired Cognitive needs: No Hearing needs: No Vision needs: No Physical Exam Vital Signs: Last Vital Signs Pulse 67 01/27/25 10:03 BP 110/70 01/27/25 10:03 BMI result Body Mass Index 22.9 GENERAL APPEARANCE: in no acute distress, pleasant. NECK: no carotid bruit, no jugular venous distention. SKIN: no suspicious lesions, warm and dry. HEART: Late systolic murmur at the apex, irregularly irregular rhythm. LUNGS: clear to auscultation bilaterally. ABDOMEN: soft, nontender. EXTREMITIES: no edema. PERIPHERAL PULSES: equal. NEUROLOGIC: No gross deficits, AAO X 3 Office Procedures EKG Details: Atrial fibrillation 67 beats per minute, rightward axis, QTC 448 milliseconds. [id number], Complete Assessment & Plan Assessment & Plan (1) Chronic a-fib: Code(s): I48.20 - Chronic atrial fibrillation, unspecified Category: Medical Plan 75 gentleman who is here for follow-up. He has background of permanent atrial fibrillation. He was being rate controlled in the past and has been on Eliquis 5 mg twice a day. Recent admissions with sepsis and it appears amiodarone was added for rate controlled. His heart rates are well controlled currently with amiodarone and metoprolol tartrate 25 mg twice a day. I will continue both for now. Continue anticoagulation as before. 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 Clinically stable otherwise. Walking with a walker and I have advised him to stay active as much as he can. Thank you for allowing me to participate in the care of your patient. Please feel free to contact me if you have any questions. Coding Level of Care Code Est Pt Level 4 (33557) Complex EM visit Add On G2211 Diagnoses Chronic a-fib I48.20 CPT Codes EKG - CPT: 24665-[id number], Complete ([id number])
[2025-01-27 10:03] VITALS: BP 110/70; PULSE 67; BMI 22.9
== END 2025-01-27 10:28 | disposition home or self-care (01) ==
LOC: HO.HCS 09:42
PROVIDERS: PCP Internal Medicine; Visit Provider Internal Medicine Cardiovascular Disease
DX: I48.20 Chronic atrial fibrillation, unspecified (principal)
CPT/HCPCS: 93010; 99214; G2211

== ENCOUNTER → 2025-01-27 09:41 | Outpatient (BNVA) | payer MEDICARE, BC, SELFPAY | PROVIDERS: PCP Internal Medicine; Visit Provider Internal Medicine Cardiovascular Disease | DX: I48.20 Chronic atrial fibrillation, unspecified (principal); R94.31 Abnormal electrocardiogram [ECG] [EKG] | CPT/HCPCS: 93005; 99212 ==

== ENCOUNTER 2025-02-10 10:04 | Outpatient (AMB) | payer MEDICARE, BC, SELFPAY ==
--- NOTE | 2025-02-10 10:13 | A.OFFVIS_ITS ---
Intake Visit Reasons: 6m/PVR Intake Note: Patient is present for 6M/PVR Urology Medication:BETHANECHOLE CHLORIDE,POTASSIUM CHLORIDE,VITAMIN B1 Antibiotic Allergy:PENICILLIN,AMOXICILLIN,ERYTHROMYCIN Blood Thinner:NONE Last PVR:293ML'S Todays PVR:225ML'S Alliance Director Required: No Allergies penicillin V Allergy (Intermediate, Verified 02/10/25 10:14) rash amoxicillin Allergy (Verified 02/10/25 10:14) Unknown Erythromycin Allergy (Intermediate, Uncoded 02/10/25 10:14) diarrhea HPI Comments Details: Shashank is a pleasant male. He is a patient of Dr. Medrano. 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 High PVR continues PVR today 250 Continue current medications - bethanechol Reporting episodes of incontinence in the evening Clinical picture consistent with detrusor hyperactivity, impaired contractility Has been on apixaban Will obtain UDS Likely to recommend trial InterStim Urinary retention Episode of retention in hospital December 2021 Had been started on Flomax Initial high residuals over 400 cc Has frequent small voids suspicious for overflow incontinence Not interested in the catheter Does not have hand mobility to perform clean intermittent catheterization Current therapy bethanechol [facility] Medical History (Updated 01/27/25 @ 11:25 by Sharif Alexander MD) PAF (paroxysmal atrial fibrillation) History of Clostridioides difficile infection Bacteriuria Bladder outlet obstruction Psoriasis Sepsis Elevated cholesterol Anemia BPH (benign prostatic hyperplasia) Diabetes Vitamin D deficiency Neuropathy HTN (hypertension) Chronic a-fib Amputation of great toe Osteomyelitis PVD (peripheral vascular disease) Amputation of toe of left foot Pre-diabetes History of neuropathy Arrhythmia Osteomyelitis of second toe of left foot Ulcer of left second toe Amputated toe of right foot History of heart valve abnormality Surgical History History of amputation of toe Status post amputation of toe Hx of amputation Status post ORIF of fracture of ankle Family History Mother CAD (coronary artery disease) Social History Household Members: Family Household Members Other:: Bother Housing: House Are you a primary child adolescent care to a significant other at home: No Do you presently have visiting nurse or other home services: Yes (living Nurse) Alcohol intake: never Comment: s/p unwitnessed fall, camera placed in room for additional monitoring Patient Tobacco Use Status: Never used Tobacco e-Cigarette/Vaping Use: Never Used Second Hand Smoke Exposure: No Advance Directives Date on File: 08/07/20 service: No Current occupational status: retired Cognitive needs: No Hearing needs: No Vision needs: No Review of Systems Const Denies chills and Denies fever(s) Card Reports no additional complaints and Denies syncope Resp Denies cough GI Denies abdominal pain and Denies heartburn Reports as per HPI and Denies change in libido Neuro Denies syncope Psych Denies change in libido Endo Denies change in libido Physical Exam Const General: cooperative, healthy appearing, comfortable and no acute distress Orientation/consciousness: patient oriented x3 HEENT Face and sinus: Yes normal facial exam Mouth: moist mucous membranes Neck Neck: Yes normal visual inspection, Yes full ROM and Yes trachea midline Chest Chest palpation & inspection: normal inspection of the chest Resp Effort & Inspection: normal respiratory effort, able to speak in complete sen tences and no respiratory distress GI Inspection: Yes normal to inspection Back/Spine/Pelvis Cervical Spine: normal cervical lordosis Thoracic/Lumbar Spine: thoracic and lumbar spine normal to inspection Skin General skin exam: no rashes or lesions noted Neuro General: patient oriented x3, gait normal, tone normal and moves all extremities Extrem General: Yes normal to inspection and Yes capillary refill normal Office Procedures Post Void Residual Post Residual Void Post Void Residual (PVR): 225 [id number] Void Residual by ultrasound Assessment & Plan Assessment & Plan (1) Bilateral hydronephrosis: Code(s): N13.30 - Unspecified hydronephrosis Category: Medical (2) Urinary retention with incomplete bladder emptying: Code(s): R33.9 - Retention of urine, unspecified Category: Medical Plan Urodynamics Orders: Orders AMB Urinalysis Automated Today Z13.9 - Encounter for screening, unspecified Patient Instructions: This note is constructed using voice recognition software. While every effort has been made to ensure accuracy rip/mould operator errors may have been included. Imaging studies, laboratory and physical exam results were discussed and reviewed in detail. No major barriers to patient understanding were identified. An opportunity to ask questions regarding the treatment plan was provided. All questions were answered. The patient expressed understanding and agreement with the above treatment plan. The patient is aware they should contact our office by phone for worsening of their current condition or the appearance of new urologic symptoms. Compliance is encouraged with any medications and followup testing that is ordered. It is a privilege to participate in the urologic care of your patient. If you have any questions or concerns regarding treatment for the above conditions, or other urologic issues, please do not hesitate to contact me. The office telephone contact is [phone]. Sincerely, Dr David Boateng MD, [facility] - Urology Compassionate Specialist Care for the Genitourinary System Coding Level of Care Code Est Pt Level 3 (70690) Diagnoses Bilateral hydronephrosis N13.30 Urinary retention with incomplete bladder emptying R33.9 CPT Codes Post Residual Void - PVR CPT Code: 19668-Yhyh Void Residual by ultrasound ([id number])
--- OUTSIDE RECORDS SUMMARY | 2025-02-10 10:43 | XMS_ITS | Clinical Summary ---
Author Organization [facility] Address [address] [place] [address] Care Team Providers Care Quality Officer Name Role Phone Juan Carlos Luna MD [...] this topic Medical Devices Implanted Type Area Dominatrix Device Identifier Shelf Expiration Date Model / Serial / Lot Sponge Surgifoam 100 [id number] 12.5x8cm Hemostatic Agent - [id number] - [id number] Implanted:Qty: 1 on 09/14/2017 by Carline Price DPM at [facility] and Med Hemostatic Agent [employer] 02/10/2021 1974 / / [id number] Advance Directives For more information, please contact: [phone] Latest Code Status on File Code Status Date Activated Date Inactivated Comments Full Code 10/28/2017 12:29 AM 11/04/2017 11:33 PM Thi s code status was ascertained in the following way: per detention documentation. . Code Status History Code Status Date Activated Date Inactivated Comments Full Code 09/09/2017 8:34 PM 09/23/2017 3:01 AM This code status was ascertained in the following way: discussion with patient . Care Teams Quality Officer Relationship Specialty Start Date End Date Juan Carlos Luna MD PCP - General Internal Medicine 06/12/15
--- OUTSIDE RECORDS SUMMARY | 2025-02-10 10:43 | XMS_ITS | Encounter Summary ---
Author Organization [facility] Address [address] [place] [address] Care Team Providers Care Bottom Buffer Name Role Phone Juan Carlos Luna PT Primary Care Provider [phone] Encounter Details Date Type Department Care Team (Late st Contact Info) Description 09/26/[address] [facility] - Main Lab [address] [facility] [place] [address] Vanessa Winslow MD [address] [place] [id number] Magnesium deficiency; Hyperkalemia; Sepsis, unspecified organism (CMS/HCC V24, CMS/HCC V28) Social History Tobacco Use Types Packs/Day Years Used Date Smoking Tobacco: Never Smokeless Tobacco: Never Alcohol Use Standard Drinks/Week Comments Yes 0 (1 standard drink = 0.6 oz pur e alcohol) Sex and Gender Information Value Date Recorded Sex Assigned at Not on file Legal Sex Male 11:34 PM EST Gender Identity Not on file Sexual Orientation [...] mmol/L LAB CHEMISTRY METHOD 09/26/2024 12:10 PM [facility] Potassium 5.5 3.5 - 5.5 mmol/L LAB CHEMISTRY METHOD 09/26/2024 12:10 PM [facility] Chloride 110 96 - 110 mmol/L LAB CHEMISTRY METHOD 09/26/2024 12:10 PM [facility] CO2 23 21 - 32 mmol/L LAB CHEMISTRY METHOD 09/26/2024 12:10 PM [facility] Anion Gap 9 3 - 11 LAB CHEMISTRY METHOD 09/26/2024 12:10 PM [facility] Glucose 102(H) 70 - 100 mg/dL LAB CHEMISTRY METHOD 09/26/2024 12:10 PM [facility] BUN 18 5 - 25 mg/dL LAB CHEMISTRY METHOD 09/26/2024 12:10 PM [facility] Creatinine 1.31(H) 0.70 - 1.30 mg/dL LAB CHEMISTRY METHOD 09/26/2024 12:10 PM [facility] eGFR 57(L) >=60 mL/min/1. 73m2 LAB CHEMISTRY METHOD 09/26/2024 12:10 PM [facility] Comment:Calculation based on the??Chronic Kidney Disease Epidemiology Collaboration (CKD-EPI) equation refit??without adjustment for race. BUN/Creatinine Ratio 13.7 LAB CHEMISTRY METHOD 09/26/2024 12:10 PM [facility] Calcium 8.7 8.5 - 10.5 mg/dL LAB CHEMISTRY METHOD 09/26/2024 12:10 PM [facility] Blood Venous blood specimen / Unknown Venipuncture / Unknown 09/26/2024 4:48 AM EST 09/26/2024 10:23 AM EST us Vanessa Winslow MD LAB BLOOD ORDERABLES Final Res ult [facility] [address] [place] [address], * (ABNORMAL) Complete blood count (09/26/2024 4:48 AM EST) WBC 6.1 4.8 - 10.8 K/mcL LAB HEMETOLOGY METHOD 09/26/2024 10:59 AM [facility] RBC 3.30(L) 4.50 - 5.50 M/mcL LAB HEMETOLOGY METHOD 09/26/2024 10:59 AM [facility] Hemoglobin 9.0(L) 13.5 - 17.5 g/dL LAB HEMETOLOGY METHOD 09/26/2024 10:59 AM [facility] Hematocrit 29.8(L) 42.0 - 54.0 % LAB HEMETOLOGY METHOD 09/26/2024 10:59 AM [facility] MCV 89.5 79.0 - 98.0 FL LAB HEMETOLOGY METHOD 09/26/2024 10:59 AM [facility] MCH 27.0 27.0 - 32.0 pcg LAB HEMETOLOGY METHOD 09/26/2024 10:59 AM [facility] MCHC 30.2(L) 32.0 - 37.0 g/dL LAB HEMETOLOGY METHOD 09/26/2024 10:59 AM [facility] RDW 16.9(H) 11.0 - 15.0 % LAB HEMETOLOGY METHOD 09/26/2024 10:59 AM [facility] Platelets 291 130 - 400 K/mcL LAB HEMETOLOGY METHOD 09/26/2024 10:59 AM [facility] MPV 9.7 7.0 - 11.0 FL LAB HEMETOLOGY METHOD 09/26/2024 10:59 AM EST [facility] NRBC 0.0 <1.0 % LAB HEMETOLOGY METHOD 09/26/2024 10:59 AM EST [facility] NRBC Absolute 0.00 <0.10 K/mcL LAB HEMETOLOGY METHOD 09/26/2024 10:59 AM EST [facility] Blood Venous blood specimen / Unknown Venipuncture / Unknown 09/26/2024 4:48 AM EST 09/26/2024 10:23 AM EST Vanessa Winslow MD LAB BLOOD ORDERABLES Final Res ult [facility] [address] [place] [address], [place] [phone] * (ABNORMAL) Magnesium (09/26/2024 4:48 AM EST) Magnesium 1.8(L) 1.9 - 2.6 mg/dL LAB CHEMISTRY METHOD 09/26/2024 12:10 PM EST [facility] Blood Venous blood specimen / Unknown Venipuncture / Unknown 09/26/2024 4:48 AM EST 09/26/2024 10:23 AM EST Vanessa Winslow MD LAB BLOOD ORDERABLES Final Res ult [facility] [address] [place] [address], [place] [phone] documented in this encounter Visit Diagnoses Diagnosis Magnesium deficiency Disorders of magnesium metabolism Hyperkalemia Hyperpotassemia Sepsis, unspecified organism (CMS/HCC V24, CMS/HCC V28) documented in this encounter Care Teams Bottom Buffer Relationship Specialty Start Date End Date Juan Carlos Luna, PT PCP - General Internal Medicine 06/12/15 documented as of this encounter
--- OUTSIDE RECORDS SUMMARY | 2025-02-10 10:43 | XMS_ITS | Encounter Summary ---
Author Organization [facility] Address [address] [place] [address] Care Team Providers Care Machine Plate Stacker Name Role Phone Juan Carlos Luna PT Primary Care Provider [phone] Encounter Details Date Type Department Care Team (Late st Contact Info) Description 10/19/2024 Lab Requisition [facility] - Main Lab [address] [facility] [place] [address] Vanessa Winslow MD [address] [place] [phone] Unspecified atrial fibrillation (CMS/HCC V24, CMS/HCC V28); Type 2 diabetes mellitus with diabetic chronic kidney disease (CMS/HCC V24, CMS/HCC V28) Social History Tobacco [...] mmol/L LAB CHEMISTRY METHOD 10/19/2024 2:04 PM [facility] Potassium 4.7 3.5 - 5.5 mmol/L LAB CHEMISTRY METHOD 10/19/2024 2:04 PM [facility] Chloride 107 96 - 110 mmol/L LAB CHEMISTRY METHOD 10/19/2024 2:04 PM [facility] CO2 24 21 - 32 mmol/L LAB CHEMISTRY METHOD 10/19/2024 2:04 PM [facility] Anion Gap 8 3 - 11 LAB CHEMISTRY METHOD 10/19/2024 2:04 PM [facility] Glucose 179(H) 70 - 100 mg/dL LAB CHEMISTRY METHOD 10/19/2024 2:04 PM [facility] BUN 42(H) 5 - 25 mg/dL LAB CHEMISTRY METHOD 10/19/2024 2:04 PM [facility] Comment:Results verified by repeat testing Creatinine 1.40(H) 0.70 - 1.30 mg/dL LAB CHEMISTRY METHOD 10/19/2024 2:04 PM [facility] eGFR 53(L) >=60 mL/min/1. 73m2 LAB CHEMISTRY METHOD 10/19/2024 2:04 PM [facility] Comment:Calculation based on the??Chronic Kidney Disease Epidemiology Collaboration (CKD-EPI) equation refit??without adjustment for race. BUN/Creatinine Ratio 30.0 LAB CHEMISTRY METHOD 10/19/2024 2:04 PM [facility] Calcium 9.5 8.5 - 10.5 mg/dL LAB CHEMISTRY METHOD 10/19/2024 2:04 PM [facility] Blood Venous blood specimen / Unknown Venipuncture / Unknown 10/19/2024 10:30 AM EST 10/19/2024 11:49 AM EST us Vanessa Winslow MD LAB BLOOD ORDERABLES Final Res ult [facility] [address] [place] [address], * (ABNORMAL) Complete blood count (10/19/2024 10:30 AM EST) WBC 12.6(H) 4.8 - 10.8 K/mcL LAB HEMETOLOGY METHOD 10/19/2024 1:32 PM EST [facility] RBC 3.50(L) 4.50 - 5.50 M/mcL LAB HEMETOLOGY METHOD 10/19/2024 1:32 PM [facility] Hemoglobin 9.7(L) 13.5 - 17.5 g/dL LAB HEMETOLOGY METHOD 10/19/2024 1:32 PM [facility] Hematocrit 31.9(L) 42.0 - 54.0 % LAB HEMETOLOGY METHOD 10/19/2024 1:32 PM [facility] MCV 91.7 79.0 - 98.0 FL LAB HEMETOLOGY METHOD 10/19/2024 1:32 PM [facility] MCH 27.9 27.0 - 32.0 pcg LAB HEMETOLOGY METHOD 10/19/2024 1:32 PM [facility] MCHC 30.4(L) 32.0 - 37.0 g/dL LAB HEMETOLOGY METHOD 10/19/2024 1:32 PM [facility] RDW 19.3(H) 11.0 - 15.0 % LAB HEMETOLOGY METHOD 10/19/2024 1:32 PM [facility] Platelets 485(H) 130 - 400 K/mcL LAB HEMETOLOGY METHOD 10/19/2024 1:32 PM [facility] MPV 9.6 7.0 - 11.0 FL LAB HEMETOLOGY METHOD 10/19/2024 1:32 PM EST [facility] NRBC 0.0 <1.0 % LAB HEMETOLOGY METHOD 10/19/2024 1:32 PM EST [facility] NRBC Absolute 0.00 <0.10 K/mcL LAB HEMETOLOGY METHOD 10/19/2024 1:32 PM EST [facility] Blood Venous blood specimen / Unknown Venipuncture / Unknown 10/19/2024 10:30 AM EST 10/19/2024 11:49 AM EST us Vanessa Winslow MD LAB BLOOD ORDERABLES Final Res ult [facility] [address] [place] [address], documented in this encounter Visit Diagnoses Diagnosis Unspecified atrial fibrillation (CMS/HCC V24, CMS/HCC V28) Type 2 diabetes mellitus with diabetic chronic kidney disease (CMS/HCC V24, CMS/HCC V28) documented in this encounter Care Teams Machine Plate Stacker Relationship Specialty Start Date End Date Juan Carlos Luna PT PCP - General Internal Medicine 06/12/15 documented as of this encounter
--- OUTSIDE RECORDS SUMMARY | 2025-02-10 10:43 | XMS_ITS | Encounter Summary ---
Author Organization [facility] Address [address] [place] [address] Care Team Providers Care Retail Store Clerk Name Role Phone Juan Carlos Luna PT Primary Care Provider [phone] Encounter Details Date Type Department Care Team (Latest Contact Info) Description 10/21/2024 Lab Requisition [facility] - Main Lab [address] [facility] [place] [phone] aVnessa Winslow MD [address] [place] [id number] Metabolic encephalopathy Social History Tobacco Use Types [...] LAB CHEMISTRY METHOD 10/21/2024 11:16 AM EST [facility] Potassium 5.0 3.5 - 5.5 [...] 6:03 AM EST 10/21/2024 10:16 AM EST us Vanessa Winslow MD LAB BLOOD ORDERABLES Final Res ult [facility] [address] [place] [address], [place] [phone] * (ABNORMAL) Complete blood count (10/21/2024 6:03 AM EST) [facility] WBC 9.3 4.8 - 10.8 K/mcL LAB [...] FL LAB HEMETOLOGY METHOD 10/21/2024 10:[address] [facility] MCH 28.1 27.0 - 32.0 pcg LAB HEMETOLOGY METHOD 10/21/2024 10:[address] [facility] MCHC 30.0(L) 32.0 - 37.0 g/dL LAB HEMETOLOGY METHOD 10/21/2024 10:[address] [facility] RDW 19.2(H) 11.0 - 15.0 % LAB HEMETOLOGY METHOD 10/21/2024 10:[address] [facility] Platelets 396 130 - 400 K/mcL LAB HEMETOLOGY METHOD 10/21/2024 10:[address] [facility] MPV 9.8 7.0 - 11.0 FL LAB HEMETOLOGY METHOD 10/21/2024 10:[address] [facility] NRBC 0.0 <1.0 % LAB HEMETOLOGY METHOD 10/21/2024 10:[address] [facility] NRBC Absolute 0.00 <0.10 K/mcL LAB HEMETOLOGY METHOD 10/21/2024 10:58 AM EST [facility] Blood Venous blood specimen / Unknown Venipuncture / Unknown 10/21/2024 6:03 AM EST 10/21/2024 10:16 AM EST us Vanessa Winslow MD LAB BLOOD ORDERABLES Final Res ult [facility] [address] [place] [address], documented in this encounter Visit Diagnoses Diagnosis Metabolic encephalopathy documented in this encounter Care Teams Retail Store Clerk Relationship Specialty Start Date End Date Juan Carlos Luna, PT PCP - General Internal Medicine 06/12/15 documented as of this encounter
--- OUTSIDE RECORDS SUMMARY | 2025-02-10 10:43 | XMS_ITS | Encounter Summary ---
Author Organization [facility] Address [address] [place] [address] Care Team Providers Care Bridal Stylist Sales Consultant Name Role Phone Juan Carlos Luna PT Primary Care Provider [phone] Encounter Details Date Type Department Care Team (Latest Contact Info) Description 09/23/[address] [facility] - Main Lab [address] [facility] [place] [address] Vanessa Winslow MD [address] [place] [id number] Type 2 diabetes mellitus without complications (CMS/HCC V24, CMS/HCC V28); Essential (primary) hypertension; Unspecified atrial fibrillation (CMS/HCC V24, CMS/HCC V28) Social History Tobacco [...] LAB CHEMISTRY METHOD 09/23/2024 10:44 AM EST [facility] Blood Venous blood specimen / Unknown Venipuncture / Unknown 09/23/2024 7:27 AM EST 09/23/2024 9:33 AM EST us Vanessa Winslow MD LAB BLOOD ORDERABLES Final Res ult [facility] [address] [place] [address], * Thyroxine free (09/23/2024 7:27 AM EST) Free T4 1.33 0.70 - 1.80 ng/dL LAB CHEMISTRY METHOD 09/23/2024 10:51 AM EST [facility] Blood Venous blood specimen / Unknown Venipuncture / Unknown 09/23/2024 7:27 AM EST 09/23/2024 9:33 AM EST Vanessa Winslow MD LAB BLOOD ORDERABLES Final Res ult Performing Organization Address City/[facility]/ZIP Co de Phone Number [facility] [address] [place] [address], [place] [phone] * Thyroid stimulating hormone (09/23/2024 7:27 AM EST) Pathologist [facility] TSH 3.43 0.40 - 4.00 mcIU/mL LAB CHEMISTRY METHOD 09/23/2024 10:51 AM EST [facility] Blood Venous blood specimen / Unknown Venipuncture / Unknown 09/23/2024 7:27 AM EST 09/23/2024 9:33 AM EST Vanessa Winslow MD LAB BLOOD ORDERABLES Final Res ult Performing Organization Address [facility]/ZIP Co de Phone Number [facility] [address] [place] [address], [place] [phone] * Hemoglobin A1c (09/23/2024 7:27 AM EST) [facility] Hemoglobin A1C 6.2 <6.5 % LAB CHEMISTRY METHOD 09/23/2024 11:40 AM EST [facility] Mean Bld Glu Estim. 131 mg/dL LAB CHEMISTRY METHOD 09/23/2024 11:40 AM EST [facility] Blood Venous blood specimen / Unknown Venipuncture / Unknown 09/23/2024 7:27 AM EST 09/23/2024 9:33 AM EST Vanessa Winslow MD LAB BLOOD ORDERABLES Final Res ult Performing Organization Address City/[facility]/ZIP Co de Phone Number [facility] [address] [place] [address], [place] [phone] * (ABNORMAL) Comprehensive metabolic panel (09/23/2024 7:27 AM EST) [facility] Signature Sodium 141 133 - 145 mmol/L LAB CHEMISTRY METHOD 09/23/2024 10:45 AM [facility] Potassium 4.3 3.5 - 5.5 mmol/L LAB CHEMISTRY METHOD 09/23/2024 10:45 AM [facility] Chloride 109 96 - 110 mmol/L LAB CHEMISTRY METHOD 09/23/2024 10:45 AM [facility] CO2 23 21 - 32 mmol/L LAB CHEMISTRY METHOD 09/23/2024 10:45 AM [facility] Anion Gap 9 3 - 11 LAB CHEMISTRY METHOD 09/23/2024 10:45 AM [facility] Glucose 88 70 - 100 mg/dL LAB CHEMISTRY METHOD 09/23/2024 10:45 AM [facility] BUN 18 5 - 25 mg/dL LAB CHEMISTRY METHOD 09/23/2024 10:45 AM [facility] Creatinine 1.23 0.70 - 1.30 mg/dL LAB CHEMISTRY METHOD 09/23/2024 10:45 AM [facility] eGFR 62 >=60 mL/min/1. 73m2 LAB CHEMISTRY METHOD 09/23/2024 10:45 AM [facility] Comment:Calculation based on the??Chronic Kidney Disease Epidemiology Collaboration (CKD-EPI) equation refit??without adjustment for race. BUN/Creatinine Ratio 14.6 LAB CHEMISTRY METHOD 09/23/2024 10:45 AM [facility] Calcium 8.5 8.5 - 10.5 mg/dL LAB CHEMISTRY METHOD 09/23/2024 10:45 AM [facility] AST (SGOT) 23 10 - 42 unit/L LAB CHEMISTRY METHOD 09/23/2024 10:45 AM [facility] ALT (SGPT) 22 10 - 60 unit/L LAB CHEMISTRY METHOD 09/23/2024 10:45 AM [facility] Alkaline Phosphatase 119 42 - 121 unit/L LAB CHEMISTRY METHOD 09/23/2024 10:45 AM EST [facility] Total Protein 5.5(L) 6.0 - 8.0 g/dL LAB CHEMISTRY METHOD 09/23/2024 10:45 AM [facility] Albumin 2.1(L) 3.2 - 5.0 g/dL LAB CHEMISTRY METHOD 09/23/2024 10:45 AM [facility] Total Bilirubin 0.6 0.0 - 1.4 mg/dL LAB CHEMISTRY METHOD 09/23/2024 10:45 AM [facility] Blood Venous blood specimen / Unknown Venipuncture / Unknown 09/23/2024 7:27 AM EST 09/23/2024 9:33 AM EST us Vanessa Winslow MD LAB BLOOD ORDERABLES Final Res ult [facility] [address] [place] [address], [place] [phone] * (ABNORMAL) Complete blood count (09/23/2024 7:27 AM EST) WBC 5.4 4.8 - 10.8 K/mcL LAB HEMETOLOGY METHOD 09/23/2024 10:24 AM [facility] RBC 3.30(L) 4.50 - 5.50 M/mcL LAB HEMETOLOGY METHOD 09/23/2024 10:24 AM [facility] Hemoglobin 8.8(L) 13.5 - 17.5 g/dL LAB HEMETOLOGY METHOD 09/23/2024 10:24 AM [facility] Hematocrit 29.3(L) 42.0 - 54.0 % LAB HEMETOLOGY METHOD 09/23/2024 10:24 AM [facility] MCV 89.1 79.0 - 98.0 FL LAB HEMETOLOGY METHOD 09/23/2024 10:24 AM EST [facility] MCH 26.7(L) 27.0 - 32.0 pcg LAB HEMETOLOGY METHOD 09/23/2024 10:24 AM [facility] MCHC 30.0(L) 32.0 - 37.0 g/dL LAB HEMETOLOGY METHOD 09/23/2024 10:24 AM [facility] RDW 16.4(H) 11.0 - 15.0 % LAB HEMETOLOGY METHOD 09/23/2024 10:24 AM EST [facility] Platelets 231 130 - 400 K/mcL LAB HEMETOLOGY METHOD 09/23/2024 10:24 AM [facility] MPV 9.8 7.0 - 11.0 FL LAB HEMETOLOGY METHOD 09/23/2024 10:24 AM EST [facility] NRBC 0.0 <1.0 % LAB HEMETOLOGY METHOD 09/23/2024 10:24 AM [facility] NRBC Absolute 0.00 <0.10 K/mcL LAB HEMETOLOGY METHOD 09/23/2024 10:24 AM [facility] Blood Venous blood specimen / Unknown Venipuncture / Unknown 09/23/2024 7:27 AM EST 09/23/2024 9:33 AM EST us Vanessa Winslow MD LAB BLOOD ORDERABLES Final Res ult [facility] [address] [place] [address], documented in this encounter Visit Diagnoses Diagnosis Type 2 diabetes mellitus without complications (CMS/HCC V24, CMS/HCC V28) Essential (primary) hypertension Unspecified essential hypertension Unspecified atrial fibrillation (CMS/HCC V24, CMS/HCC V28) documented in this encounter Care Teams Bridal Stylist Sales Consultant Relationship Specialty Start Date End Date Juan Carlos Luna, PT PCP - General Internal Medicine 06/12/15 documented as of this encounter
--- OUTSIDE RECORDS SUMMARY | 2025-02-10 10:43 | XMS_ITS | Clinical Summary ---
Author Organization [address] Address [address] [place] [address] Phone Care Team Providers Care Fireworks Display Specialist Name Role Phone CherylJuan Carlos Sujit PT Primary Care Provider [phone] Surgical History Surgery Date Site/Laterality Comments OTHER SURGICAL HISTORY PROCEDURE:Left fibular fracture;COMMENT:01/14 COLONOSCOPY 06/22/2003 PROCEDURE:COLONOSCOPY;COMMENT:Yesi Berger - Benign appearing polyp at 20 cm COLONOSCOPY 06/08/2009 PROCEDURE:COLONOSCOPY;COMMENT:Yesi Berger - Colonic diverticulosis INCISION AND DRAINAGE FOOT 09/18/2017 Right PROCEDURE:INCISION AND DRAINAGE FOOT;COMMENT:Procedure: I&D FOOT; Surgeon: Carline Price DPM; Location: [facility]; Service: Podiatry; Laterality: Right; LAYERED WOUND CLOSURE 09/18/2017 Right PROCEDURE:LAYERED WOUND CLOSURE;COMMENT:Procedure: CLOSURE WOUND SECONDARY; Surgeon: Carline Price DPM; Location: [facility]; Service: Podiatry; Laterality: Right; INCISION AND DRAINAGE FOOT 09/14/2017 Right PROCEDURE:INCISION AND DRAINAGE FOOT;COMMENT:Procedure: I&D FOOT WITH REMOVAL OF BONE; Surgeon: Carline Price DPM; Location: [facility]; Service: Podiatry; Laterality: Right; TOE AMPUTATION 09/10/2017 Right PROCEDURE:TOE AMPUTATION;COMMENT:Procedure: AMPUTATION TOE, I&D RIGHT FOOT WITH REMOVAL OF BONE; Surgeon: Carline Price DPM; Location: [facility]; Service: Podiatry; Laterality: Right; Medical History Medical History Date Comments Anxiety disorder 05/25/2015 DX:Anxiety diso rder BP (high blood pressure) 05/25/2015 DX:BP ( high blood pressure) Benign localized hyperplasia of prostate 05/25/2015 DX:Benign localized hyperpla beverley of prostate History of colon polyps DX:Histo ry of colon polyps History of mitral valve prolapse DX:History of mitral valve prolapse Diabetes mellitus ([facility] V 24, [facility] V28) DX:Diabetes mellitus ([facility]);COMMENT:A1c 6.07 September 2017 Osteomyelitis of toe of righ t foot ([facility] V24, [facility] V28) DX:Osteomyelitis of toe of right foot ([facility]);COMMENT:third toe Family History Medical History Relation Name [...] Last Done Comments COVID-19 Vaccine (#1) 01[birth year]14/1955 Diabetes: Annual Foot Exam 1961 Diabetes: Annual Retina Eye Exam 1961 Pneumococcal Vaccine: 50+ Years (1 of 2 - PCV) 1970 Zoster Vaccines (1 of 2) 1970 RSV Immunization Adult Patients (1 - Risk 60-74 years 1-dose series) 2011 Abdominal Aortic Aneurysm (AAA) Screen 09/23/2024 Cholesterol Screening (Lipid Panel) 09/23/2024 Colorectal Cancer Screening: Colonoscopy 09/23/2024 Depression Screening 09/23/2024 Diabetes: Annual Urine Albumin-Creatinine Ratio (uACR) 09/23/2024 Falls Risk Assessment 09/23/2024 Hepatitis C Screening 09/23/2024 Medicare Annual Wellness Visit 09/23/2024 Social Influencers of Health Screening 09/23/2024 Diabetes: Blood Sugar Control Test (HGBA1C) 03/23/2025 09/23/2024 Influenza Vaccine (Season Ended) 2025 Diabetes: Annual GFR (Glomerular Filtration Rate) 10/21/2025 [...] patient's age to complete this topic Meningococcal B Vaccine Aged Out No l onger eligible based on patient's age to complete this topic RSV Immunization Patients Under 20 months Aged Out No longer eligible based on patient's age to complete this topic Varicella Vaccines Aged Out No longer eligible based on patient's age to complete this topic Procedures Procedure Name Priority Date/Time Associated Diagnosis Comments BASIC METABOLIC PANEL Routine 10/21/2024 6:03 AM EST Metabolic encephalopathy HEMOGLOBIN A1C Routine 09/23/2024 7:27 AM EST Type 2 diabetes mellitus without complications (CMS/HCC) Essential (primary) hypertension Unspecified atrial fibrillation (CMS/HCC) from Last 3 Months or Most Recently Relevant to Health Maintenance Results * (ABNORMAL) Basic metabolic panel (10/21/2024 6:03 AM EST) Sodium 140 133 - 145 mmol/L LAB CHEMISTRY METHOD 10/21/2024 11:16 AM EST [facility] Potassium 5.0 3.5 - 5.5 mmol/L LAB CHEMISTRY METHOD 10/21/2024 11:16 AM EST [facility] Chloride 108 96 - 110 mmol/L LAB CHEMISTRY METHOD 10/21/2024 11:16 AM EST [facility] CO2 26 21 - 32 mmol/L LAB CHEMISTRY METHOD 10/21/2024 11:16 AM [facility] Anion Gap 6 3 - 11 LAB CHEMISTRY METHOD 10/21/2024 11:16 AM [facility] Glucose 142(H) 70 - 100 mg/dL LAB CHEMISTRY METHOD 10/21/2024 11:16 AM EST [facility] BUN 41(H) 5 - 25 mg/dL LAB CHEMISTRY METHOD 10/21/2024 11:16 AM [facility] Creatinine 1.21 0.70 - 1.30 mg/dL LAB CHEMISTRY METHOD 10/21/2024 11:16 AM [facility] eGFR 63 >=60 mL/min/1. 73m2 LAB CHEMISTRY METHOD 10/21/2024 11:16 AM EST [facility] Comment:Calculation based on the??Chronic Kidney Disease Epidemiology Collaboration (CKD-EPI) equation refit??without adjustment for race. BUN/Creatinine Ratio 33.9 LAB CHEMISTRY METHOD 10/21/2024 11:16 AM [facility] Calcium 9.1 8.5 - 10.5 mg/dL LAB CHEMISTRY METHOD 10/21/2024 11:16 AM [facility] Blood Venous blood specimen / Unknown Venipuncture / Unknown 10/21/2024 6:03 AM EST 10/21/2024 10:16 AM EST us Vanessa Winslow MD LAB BLOOD ORDERABLES Final Res ult [facility] [address] [place] [address], * Hemoglobin A1c (09/23/2024 7:27 AM EST) Hemoglobin A1C 6.2 <6.5 % LAB CHEMISTRY METHOD 09/23/2024 11:40 AM EST [facility] Mean Bld Glu Estim. 131 mg/dL LAB CHEMISTRY METHOD 09/23/2024 11:40 AM EST [facility] Blood Venous blood specimen / Unknown Venipuncture / Unknown 09/23/2024 7:27 AM EST 09/23/2024 9:33 AM EST us Vanessa Winslow MD LAB BLOOD ORDERABLES Final Res ult [facility] [address] [place] [address], [place] [phone] from Last 3 Months or Most Recently Relevant to Health Maintenance Insurance MEDICARE [facility] Care Teams Fireworks Display Specialist Relationship Specialty Start Date End Date Juan Carlos Luna PT PCP - General Internal Medicine 06/12/15
--- OUTSIDE RECORDS SUMMARY | 2025-02-10 10:43 | XMS_ITS | Encounter Summary ---
Author Organization [facility] Address [address] [place] [address] Care Team Providers Care Cemetery Keeper Name Role Phone Juan Carlos Luna PT Primary Care Provider [phone] Encounter Details Date Type Department Care Team (Late st Contact Info) Description 10/21/2024 Lab Requisition [facility] - Main Lab [address] [facility] [employer] [address] Vanessa Winslow MD [address] [place] [id number] Urinary tract infection, site not specified Social [...] reflex microscopic (10/20/2024 8:00 PM EST) Specific [place] Urine 1.022 1.003 - 1.030 LAB URINALYSIS - AUTOMATED METHOD 10/21/2024 11:30 AM [facility] pH, Urine 7.0 5.0 - 8.0 pH LAB URINALYSIS - AUTOMATED METHOD 10/21/2024 11:30 AM [facility] Leukocytes, Urine Moderate(A) Negative LAB URINALYSIS - AUTOMATED METHOD 10/21/2024 11:30 AM [facility] Nitrite, Urine Negative Negative LAB URINALYSIS - AUTOMATED METHOD 10/21/2024 11:30 AM [facility] Protein, Urine 100(A) <=Trace mg/dL LAB URINALYSIS - AUTOMATED METHOD 10/21/2024 11:30 AM [facility] Glucose, Urine >=1000(A) Negative mg/dL LAB URINALYSIS - AUTOMATED METHOD 10/21/2024 11:30 AM [facility] Ketones, Urine Negative Negative mg/dL LAB URINALYSIS - AUTOMATED METHOD 10/21/2024 11:30 AM [facility] Urobilinogen , Urine 0.2 0.2 - 1.0 mg/dL LAB URINALYSIS - AUTOMATED METHOD 10/21/2024 11:30 AM [facility] Bilirubin, Urine Negative Negative LAB URINALYSIS - AUTOMATED METHOD 10/21/2024 11:30 AM [facility] Blood, Urine Small(A) Negative LAB URINALYSIS - AUTOMATED METHOD 10/21/2024 11:30 AM [facility] RBC, Urine 8.6(H) 0 - 4 /HPF LAB URINALYSIS - AUTOMATED METHOD 10/21/2024 11:30 AM [facility] WBC, Urine 293.5(H) 0 - 4 /HPF LAB URINALYSIS - AUTOMATED METHOD 10/21/2024 11:30 AM [facility] Squamous Epithelial, Urine 3 0 - 60 /LPF LAB URINALYSIS - AUTOMATED METHOD 10/21/2024 11:30 AM [facility] Bacteria, Urine Negative Negative /HPF LAB URINALYSIS - AUTOMATED METHOD 10/21/2024 11:30 AM [facility] Hyaline Casts, Urine 0.0 0 - 3 /LPF LAB URINALYSIS - AUTOMATED METHOD 10/21/2024 11:30 AM [facility] Urine Urine specimen obtained by clean catch procedure / Unknown Non-blood Collection / Unknown 10/20/2024 8:00 PM EST 10/21/2024 9:44 AM EST Vanessa Winslow MD LAB URINE ORDERABLES Final Res ult Performing Organization Address [facility]/ZIP Co de Phone Number [facility] [address] [place] [address], [place] [phone] * Baird urine culture tube (10/20/2024 8:00 PM EST) Extra Tube Hold for add-ons. 10/21/2024 11:01 AM [facility] Comment:Auto resulted. Urine Urine specimen obtained by clean catch procedure / Unknown Non-blood Collection / Unknown 10/20/2024 8:00 PM EST 10/21/2024 9:44 AM EST us Vanessa Winslow MD LAB URINE ORDERABLES Final Res ult Performing Organization Address City/[facility]/ZIP Co de Phone Number [facility] [address] [place] [address], [place] [phone] documented in this encounter Visit Diagnoses Diagnosis Urinary tract infection, site not specified documented in this encounter Care Teams Cemetery Keeper Relationship Specialty Start Date End Date Juan Carlos Luna, PT PCP - General Internal Medicine 06/12/15 documented as of this encounter
== END 2025-02-10 10:59 | disposition home or self-care (01) ==
LOC: HO.HUSH 10:04
PROVIDERS: PCP Internal Medicine; Visit Provider Urology
DX: N13.30 Unspecified hydronephrosis (principal); R33.9 Retention of urine, unspecified; Z13.9 Encounter for screening, unspecified
CPT/HCPCS: 99213

== ENCOUNTER 2025-02-10 10:04 | Outpatient (REF) | payer MEDICARE, BC, SELFPAY ==
--- OUTSIDE RECORDS SUMMARY | 2025-02-10 12:55 | XMS_ITS | Encounter Summary ---
Author Organization [facility] Address [address] [place] [address] Care Team Providers Care Chest Painting Leader Name Role Phone Juan Carlos Luna PT Primary Care Provider Encounter Details Date Type Department Care Team (Late st Contact Info) Description 10/21/2024 Lab Requisition [facility] - Main Lab 299 [facility] [place] [address] Vanessa Winslow MD [address] [place] [id number] Urinary tract infection, site not specified Social [...] reflex microscopic (10/20/2024 8:00 PM EST) Specific [place] Urine 1.022 1.003 - 1.030 LAB URINALYSIS - AUTOMATED METHOD 10/21/2024 11:30 AM [facility] pH, Urine 7.0 5.0 - 8.0 pH LAB URINALYSIS - AUTOMATED METHOD 10/21/2024 11:30 AM [facility] Leukocytes, Urine Moderate(A) Negative LAB URINALYSIS - AUTOMATED METHOD 10/21/2024 11:30 AM [facility] Nitrite, Urine Negative Negative LAB URINALYSIS - AUTOMATED METHOD 10/21/2024 11:30 AM [facility] Protein, Urine 100(A) <=Trace mg/dL LAB URINALYSIS - AUTOMATED METHOD 10/21/2024 11:30 AM [facility] Glucose, Urine >=1000(A) Negative mg/dL LAB URINALYSIS - AUTOMATED METHOD 10/21/2024 11:30 AM [facility] Ketones, Urine Negative Negative mg/dL LAB URINALYSIS - AUTOMATED METHOD 10/21/2024 11:30 AM [facility] Urobilinogen , Urine 0.2 0.2 - 1.0 mg/dL LAB URINALYSIS - AUTOMATED METHOD 10/21/2024 11:30 AM [facility] Bilirubin, Urine Negative Negative LAB URINALYSIS - AUTOMATED METHOD 10/21/2024 11:30 AM [facility] Blood, Urine Small(A) Negative LAB URINALYSIS - AUTOMATED METHOD 10/21/2024 11:30 AM [facility] RBC, Urine 8.6(H) 0 - 4 /HPF LAB URINALYSIS - AUTOMATED METHOD 10/21/2024 11:30 AM [facility] WBC, Urine 293.5(H) 0 - 4 /HPF LAB URINALYSIS - AUTOMATED METHOD 10/21/2024 11:30 AM [facility] Squamous Epithelial, Urine 3 0 - 60 /LPF LAB URINALYSIS - AUTOMATED METHOD 10/21/2024 11:30 AM [facility] Bacteria, Urine Negative Negative /HPF LAB URINALYSIS - AUTOMATED METHOD 10/21/2024 11:30 AM [facility] Hyaline Casts, Urine 0.0 0 - 3 /LPF LAB URINALYSIS - AUTOMATED METHOD 10/21/2024 11:30 AM [facility] Urine Urine specimen obtained by clean catch procedure / Unknown Non-blood Collection / Unknown 10/20/2024 8:00 PM EST 10/21/2024 9:44 AM EST Vanessa Winslow MD LAB URINE ORDERABLES Final Res ult Performing Organization Address [facility]/ZIP Co de Phone Number [facility] [address] [place] [address], [place] [phone] * Baird urine culture tube (10/20/2024 8:00 PM EST) Extra Tube Hold for add-ons. 10/21/2024 11:01 AM [facility] Comment:Auto resulted. Urine Urine specimen obtained by clean catch procedure / Unknown Non-blood Collection / Unknown 10/20/2024 8:00 PM EST 10/21/2024 9:44 AM EST us Vanessa Winslow MD LAB URINE ORDERABLES Final Res ult Performing Organization Address City/[facility]/ZIP Co de Phone Number [facility] [address] [place] [address], [place] [phone] documented in this encounter Visit Diagnoses Diagnosis Urinary tract infection, site not specified documented in this encounter Care Teams Chest Painting Leader Relationship Specialty Start Date End Date Juan Carlos Luna, PT PCP - General Internal Medicine 06/12/15 documented as of this encounter
--- OUTSIDE RECORDS SUMMARY | 2025-02-10 12:55 | XMS_ITS | Encounter Summary ---
Author Organization [facility] Address [address] [place] [address] Care Team Providers Care County Administrator Name Role Phone Juan Carlos Luna PT Primary Care Provider [phone] Encounter Details Date Type Department Care Team (Late st Contact Info) Description 10/19/2024 Lab Requisition [facility] - Main Lab 299 [facility] [place] [address] Vanessa Winslow MD [address] [place] [id number] Unspecified atrial fibrillation (CMS/HCC V24, CMS/HCC V28); [...] mmol/L LAB CHEMISTRY METHOD 10/19/2024 2:04 PM [facility] Potassium 4.7 3.5 - 5.5 mmol/L LAB CHEMISTRY METHOD 10/19/2024 2:04 PM [facility] Chloride 107 96 - 110 mmol/L LAB CHEMISTRY METHOD 10/19/2024 2:04 PM [facility] CO2 24 21 - 32 mmol/L LAB CHEMISTRY METHOD 10/19/2024 2:04 PM [facility] Anion Gap 8 3 - 11 LAB CHEMISTRY METHOD 10/19/2024 2:04 PM [facility] Glucose 179(H) 70 - 100 mg/dL LAB CHEMISTRY METHOD 10/19/2024 2:04 PM [facility] BUN 42(H) 5 - 25 mg/dL LAB CHEMISTRY METHOD 10/19/2024 2:04 PM [facility] Comment:Results verified by repeat testing Creatinine 1.40(H) 0.70 - 1.30 mg/dL LAB CHEMISTRY METHOD 10/19/2024 2:04 PM [facility] eGFR 53(L) >=60 mL/min/1. 73m2 LAB CHEMISTRY METHOD 10/19/2024 2:04 PM [facility] Comment:Calculation based on the??Chronic Kidney Disease Epidemiology Collaboration (CKD-EPI) equation refit??without adjustment for race. BUN/Creatinine Ratio 30.0 LAB CHEMISTRY METHOD 10/19/2024 2:04 PM [facility] Calcium 9.5 8.5 - 10.5 mg/dL LAB CHEMISTRY METHOD 10/19/2024 2:04 PM [facility] Blood Venous blood specimen / Unknown Venipuncture / Unknown 10/19/2024 10:30 AM EST 10/19/2024 11:49 AM EST us Vanessa Winslow MD LAB BLOOD ORDERABLES Final Res ult [facility] [address] [place] [address], * (ABNORMAL) Complete blood count (10/19/2024 10:30 AM EST) WBC 12.6(H) 4.8 - 10.8 K/mcL LAB HEMETOLOGY METHOD 10/19/2024 1:32 PM EST [facility] RBC 3.50(L) 4.50 - 5.50 M/mcL LAB HEMETOLOGY METHOD 10/19/2024 1:32 PM [facility] Hemoglobin 9.7(L) 13.5 - 17.5 g/dL LAB HEMETOLOGY METHOD 10/19/2024 1:32 PM [facility] Hematocrit 31.9(L) 42.0 - 54.0 % LAB HEMETOLOGY METHOD 10/19/2024 1:32 PM [facility] MCV 91.7 79.0 - 98.0 FL LAB HEMETOLOGY METHOD 10/19/2024 1:32 PM [facility] MCH 27.9 27.0 - 32.0 pcg LAB HEMETOLOGY METHOD 10/19/2024 1:32 PM [facility] MCHC 30.4(L) 32.0 - 37.0 g/dL LAB HEMETOLOGY METHOD 10/19/2024 1:32 PM [facility] RDW 19.3(H) 11.0 - 15.0 % LAB HEMETOLOGY METHOD 10/19/2024 1:32 PM [facility] Platelets 485(H) 130 - 400 K/mcL LAB HEMETOLOGY METHOD 10/19/2024 1:32 PM [facility] MPV 9.6 7.0 - 11.0 FL LAB HEMETOLOGY METHOD 10/19/2024 1:32 PM EST [facility] NRBC 0.0 <1.0 % LAB HEMETOLOGY METHOD 10/19/2024 1:32 PM EST [facility] NRBC Absolute 0.00 <0.10 K/mcL LAB HEMETOLOGY METHOD 10/19/2024 1:32 PM EST [facility] Blood Venous blood specimen / Unknown Venipuncture / Unknown 10/19/2024 10:30 AM EST 10/19/2024 11:49 AM EST us Vanessa Winslow MD LAB BLOOD ORDERABLES Final Res ult [facility] [address] [place] [address], documented in this encounter Visit Diagnoses Diagnosis Unspecified atrial fibrillation (CMS/HCC V24, CMS/HCC V28) Type 2 diabetes mellitus with diabetic chronic kidney disease (CMS/HCC V24, CMS/HCC V28) documented in this encounter Care Teams County Administrator Relationship Specialty Start Date End Date Juan Carlos Luna PT PCP - General Internal Medicine 06/12/15 documented as of this encounter
--- OUTSIDE RECORDS SUMMARY | 2025-02-10 12:55 | XMS_ITS | Encounter Summary ---
Author Organization [facility] Address [address] [place] [address] Care Team Providers Care Video Library Assistant Name Role Phone Juan Carlos Luna PT Primary Care Provider [phone] Encounter Details Date Type Department Care Team (Latest Contact Info) Description 10/21/2024 Lab Requisition [facility] - Main Lab 299 [facility] [place] [id number] Vanessa Winslow MD [address] [place] [address] Metabolic encephalopathy Social History Tobacco Use Types [...] LAB CHEMISTRY METHOD 10/21/2024 11:16 AM EST [facility] Potassium 5.0 3.5 - 5.5 mmol/L LAB CHEMISTRY METHOD 10/21/2024 11:16 AM [facility] Chloride 108 96 - 110 mmol/L LAB CHEMISTRY METHOD 10/21/2024 11:16 AM [facility] CO2 26 21 - 32 mmol/L LAB CHEMISTRY METHOD 10/21/2024 11:16 AM [facility] Anion Gap 6 3 - 11 LAB CHEMISTRY METHOD 10/21/2024 11:16 AM [facility] Glucose 142(H) 70 - 100 mg/dL LAB CHEMISTRY METHOD 10/21/2024 11:16 AM [facility] BUN 41(H) 5 - 25 mg/dL LAB CHEMISTRY METHOD 10/21/2024 11:16 AM [facility] Creatinine 1.21 0.70 - 1.30 mg/dL LAB CHEMISTRY METHOD 10/21/2024 11:16 AM [facility] eGFR 63 >=60 mL/min/1. 73m2 LAB CHEMISTRY METHOD 10/21/2024 11:16 AM [facility] Comment:Calculation based on the??Chronic Kidney Disease Epidemiology Collaboration (CKD-EPI) equation refit??without adjustment for race. BUN/Creatinine Ratio 33.9 LAB CHEMISTRY METHOD 10/21/2024 11:16 AM [facility] Calcium 9.1 8.5 - 10.5 mg/dL LAB CHEMISTRY METHOD 10/21/2024 11:16 AM [facility] Blood Venous blood specimen / Unknown Venipuncture / Unknown 10/21/2024 6:03 AM EST 10/21/2024 10:16 AM EST us Vanessa Winslow MD LAB BLOOD ORDERABLES Final Res ult [facility] [address] [place] [address], [place] [phone] * (ABNORMAL) Complete blood count (10/21/2024 6:03 AM EST) [facility] WBC 9.3 4.8 - 10.8 K/mcL LAB HEMETOLOGY METHOD 10/21/2024 10:58 AM [facility] RBC 3.30(L) 4.50 - 5.50 M/mcL LAB HEMETOLOGY METHOD 10/21/2024 10:58 AM [facility] Hemoglobin 9.3(L) 13.5 - 17.5 g/dL LAB HEMETOLOGY METHOD 10/21/2024 10:58 AM [facility] Hematocrit 31.0(L) 42.0 - 54.0 % LAB HEMETOLOGY METHOD 10/21/2024 10:58 AM [facility] MCV 93.7 79.0 - 98.0 FL LAB HEMETOLOGY METHOD 10/21/2024 10:58 AM [facility] MCH 28.1 27.0 - 32.0 pcg LAB HEMETOLOGY METHOD 10/21/2024 10:58 AM [facility] MCHC 30.0(L) 32.0 - 37.0 g/dL LAB HEMETOLOGY METHOD 10/21/2024 10:58 AM [facility] RDW 19.2(H) 11.0 - 15.0 % LAB HEMETOLOGY METHOD 10/21/2024 10:58 AM [facility] Platelets 396 130 - 400 K/mcL LAB HEMETOLOGY METHOD 10/21/2024 10:58 AM [facility] MPV 9.8 7.0 - 11.0 FL LAB HEMETOLOGY METHOD 10/21/2024 10:58 AM [facility] NRBC 0.0 <1.0 % LAB HEMETOLOGY METHOD 10/21/2024 10:58 AM [facility] NRBC Absolute 0.00 <0.10 K/mcL LAB HEMETOLOGY METHOD 10/21/2024 10:58 AM EST [facility] Blood Venous blood specimen / Unknown Venipuncture / Unknown 10/21/2024 6:03 AM EST 10/21/2024 10:16 AM EST us Vanessa Winslow MD LAB BLOOD ORDERABLES Final Res ult [facility] [address] [place] [address], documented in this encounter Visit Diagnoses Diagnosis Metabolic encephalopathy documented in this encounter Care Teams Video Library Assistant Relationship Specialty Start Date End Date Juan Carlos Luna, PT PCP - General Internal Medicine 06/12/15 documented as of this encounter
--- OUTSIDE RECORDS SUMMARY | 2025-02-10 12:55 | XMS_ITS | Encounter Summary ---
Author Organization [facility] Address [address] [place] [address] Care Team Providers Care Life Skills Teacher Name Role Phone Juan Carlos Luna PT Primary Care Provider [phone] Encounter Details Date Type Department Care Team (Latest Contact Info) Description 09/23/2024 Lab Requisition [facility] - Main Lab 299 [facility] [place] [address] Vanessa Winslow MD [address] [place] [address] Type 2 diabetes mellitus without complications (CMS/HCC [...] LAB CHEMISTRY METHOD 09/23/2024 10:44 AM EST [facility] Blood Venous blood specimen / Unknown Venipuncture / Unknown 09/23/2024 7:27 AM EST 09/23/2024 9:33 AM EST us Vanessa Winslow MD LAB BLOOD ORDERABLES Final Res ult [facility] [address] [place] [address], * Thyroxine free (09/23/2024 7:27 AM EST) Free T4 1.33 0.70 - 1.80 ng/dL LAB CHEMISTRY METHOD 09/23/2024 10:51 AM EST [facility] Blood Venous blood specimen / Unknown Venipuncture / Unknown 09/23/2024 7:27 AM EST 09/23/2024 9:33 AM EST Vanessa Winslow MD LAB BLOOD ORDERABLES Final Res ult Performing Organization Address City/[facility]/ZIP Co de Phone Number [facility] [address] [place] [address], [place] [phone] * Thyroid stimulating hormone (09/23/2024 7:27 AM EST) Pathologist [facility] TSH 3.43 0.40 - 4.00 mcIU/mL LAB CHEMISTRY METHOD 09/23/2024 10:51 AM EST [facility] Blood Venous blood specimen / Unknown Venipuncture / Unknown 09/23/2024 7:27 AM EST 09/23/2024 9:33 AM EST Vanessa Winslow MD LAB BLOOD ORDERABLES Final Res ult Performing Organization Address [facility]/ZIP Co de Phone Number [facility] [address] [place] [address], [place] [phone] * Hemoglobin A1c (09/23/2024 7:27 AM EST) [facility] Hemoglobin A1C 6.2 <6.5 % LAB CHEMISTRY METHOD 09/23/2024 11:40 AM EST [facility] Mean Bld Glu Estim. 131 mg/dL LAB CHEMISTRY METHOD 09/23/2024 11:40 AM EST [facility] Blood Venous blood specimen / Unknown Venipuncture / Unknown 09/23/2024 7:27 AM EST 09/23/2024 9:33 AM EST Vanessa Winslow MD LAB BLOOD ORDERABLES Final Res ult Performing Organization Address City/[facility]/ZIP Co de Phone Number [facility] [address] [place] [address], [place] [phone] * (ABNORMAL) Comprehensive metabolic panel (09/23/2024 7:27 AM EST) [facility] Signature Sodium 141 133 - 145 mmol/L LAB CHEMISTRY METHOD 09/23/2024 10:45 AM [facility] Potassium 4.3 3.5 - 5.5 mmol/L LAB CHEMISTRY METHOD 09/23/2024 10:45 AM [facility] Chloride 109 96 - 110 mmol/L LAB CHEMISTRY METHOD 09/23/2024 10:45 AM [facility] CO2 23 21 - 32 mmol/L LAB CHEMISTRY METHOD 09/23/2024 10:45 AM [facility] Anion Gap 9 3 - 11 LAB CHEMISTRY METHOD 09/23/2024 10:45 AM [facility] Glucose 88 70 - 100 mg/dL LAB CHEMISTRY METHOD 09/23/2024 10:45 AM [facility] BUN 18 5 - 25 mg/dL LAB CHEMISTRY METHOD 09/23/2024 10:45 AM [facility] Creatinine 1.23 0.70 - 1.30 mg/dL LAB CHEMISTRY METHOD 09/23/2024 10:45 AM [facility] eGFR 62 >=60 mL/min/1. 73m2 LAB CHEMISTRY METHOD 09/23/2024 10:45 AM [facility] Comment:Calculation based on the??Chronic Kidney Disease Epidemiology Collaboration (CKD-EPI) equation refit??without adjustment for race. BUN/Creatinine Ratio 14.6 LAB CHEMISTRY METHOD 09/23/2024 10:45 AM [facility] Calcium 8.5 8.5 - 10.5 mg/dL LAB CHEMISTRY METHOD 09/23/2024 10:45 AM [facility] AST (SGOT) 23 10 - 42 unit/L LAB CHEMISTRY METHOD 09/23/2024 10:45 AM [facility] ALT (SGPT) 22 10 - 60 unit/L LAB CHEMISTRY METHOD 09/23/2024 10:45 AM [facility] Alkaline Phosphatase 119 42 - 121 unit/L LAB CHEMISTRY METHOD 09/23/2024 10:45 AM EST [facility] Total Protein 5.5(L) 6.0 - 8.0 g/dL LAB CHEMISTRY METHOD 09/23/2024 10:45 AM [facility] Albumin 2.1(L) 3.2 - 5.0 g/dL LAB CHEMISTRY METHOD 09/23/2024 10:45 AM [facility] Total Bilirubin 0.6 0.0 - 1.4 mg/dL LAB CHEMISTRY METHOD 09/23/2024 10:45 AM [facility] Blood Venous blood specimen / Unknown Venipuncture / Unknown 09/23/2024 7:27 AM EST 09/23/2024 9:33 AM EST us Vanessa Winslow MD LAB BLOOD ORDERABLES Final Res ult [facility] [address] [place] [address], [place] [phone] * (ABNORMAL) Complete blood count (09/23/2024 7:27 AM EST) WBC 5.4 4.8 - 10.8 K/mcL LAB HEMETOLOGY METHOD 09/23/2024 10:24 AM [facility] RBC 3.30(L) 4.50 - 5.50 M/mcL LAB HEMETOLOGY METHOD 09/23/2024 10:24 AM [facility] Hemoglobin 8.8(L) 13.5 - 17.5 g/dL LAB HEMETOLOGY METHOD 09/23/2024 10:24 AM [facility] Hematocrit 29.3(L) 42.0 - 54.0 % LAB HEMETOLOGY METHOD 09/23/2024 10:24 AM [facility] MCV 89.1 79.0 - 98.0 FL LAB HEMETOLOGY METHOD 09/23/2024 10:24 AM EST [facility] MCH 26.7(L) 27.0 - 32.0 pcg LAB HEMETOLOGY METHOD 09/23/2024 10:24 AM [facility] MCHC 30.0(L) 32.0 - 37.0 g/dL LAB HEMETOLOGY METHOD 09/23/2024 10:24 AM [facility] RDW 16.4(H) 11.0 - 15.0 % LAB HEMETOLOGY METHOD 09/23/2024 10:24 AM EST [facility] Platelets 231 130 - 400 K/mcL LAB HEMETOLOGY METHOD 09/23/2024 10:24 AM [facility] MPV 9.8 7.0 - 11.0 FL LAB HEMETOLOGY METHOD 09/23/2024 10:24 AM EST [facility] NRBC 0.0 <1.0 % LAB HEMETOLOGY METHOD 09/23/2024 10:24 AM [facility] NRBC Absolute 0.00 <0.10 K/mcL LAB HEMETOLOGY METHOD 09/23/2024 10:24 AM [facility] Blood Venous blood specimen / Unknown Venipuncture / Unknown 09/23/2024 7:27 AM EST 09/23/2024 9:33 AM EST us Vanessa Winslow MD LAB BLOOD ORDERABLES Final Res ult [facility] [address] [place] [address], documented in this encounter Visit Diagnoses Diagnosis Type 2 diabetes mellitus without complications (CMS/HCC V24, CMS/HCC V28) Essential (primary) hypertension Unspecified essential hypertension Unspecified atrial fibrillation (CMS/HCC V24, CMS/HCC V28) documented in this encounter Care Teams Life Skills Teacher Relationship Specialty Start Date End Date Juan Carlos Luna, PT PCP - General Internal Medicine 06/12/15 documented as of this encounter
--- OUTSIDE RECORDS SUMMARY | 2025-02-10 12:55 | XMS_ITS | Encounter Summary ---
Author Organization [facility] Address [address] [place] [address] Care Team Providers Care Senior Ui Ux Designer Name Role Phone Juan Carlos Luna PT Primary Care Provider [phone] Encounter Details Date Type Department Care Team (Late st Contact Info) Description 09/26/2024 Lab Requisition [facility] - Main Lab 299 [facility] [place] [address] Vanessa Winslow MD [address] [place] [address] Magnesium deficiency; Hyperkalemia; Sepsis, unspecified organism (CMS/HCC [...] mmol/L LAB CHEMISTRY METHOD 09/26/2024 12:10 PM [facility] Potassium 5.5 3.5 - 5.5 mmol/L LAB CHEMISTRY METHOD 09/26/2024 12:10 PM [facility] Chloride 110 96 - 110 mmol/L LAB CHEMISTRY METHOD 09/26/2024 12:10 PM [facility] CO2 23 21 - 32 mmol/L LAB CHEMISTRY METHOD 09/26/2024 12:10 PM [facility] Anion Gap 9 3 - 11 LAB CHEMISTRY METHOD 09/26/2024 12:10 PM [facility] Glucose 102(H) 70 - 100 mg/dL LAB CHEMISTRY METHOD 09/26/2024 12:10 PM [facility] BUN 18 5 - 25 mg/dL LAB CHEMISTRY METHOD 09/26/2024 12:10 PM [facility] Creatinine 1.31(H) 0.70 - 1.30 mg/dL LAB CHEMISTRY METHOD 09/26/2024 12:10 PM [facility] eGFR 57(L) >=60 mL/min/1. 73m2 LAB CHEMISTRY METHOD 09/26/2024 12:10 PM [facility] Comment:Calculation based on the??Chronic Kidney Disease Epidemiology Collaboration (CKD-EPI) equation refit??without adjustment for race. BUN/Creatinine Ratio 13.7 LAB CHEMISTRY METHOD 09/26/2024 12:10 PM [facility] Calcium 8.7 8.5 - 10.5 mg/dL LAB CHEMISTRY METHOD 09/26/2024 12:10 PM [facility] Blood Venous blood specimen / Unknown Venipuncture / Unknown 09/26/2024 4:48 AM EST 09/26/2024 10:23 AM EST us Vanessa Winslow MD LAB BLOOD ORDERABLES Final Res ult [facility] [address] [place] [address], * (ABNORMAL) Complete blood count (09/26/2024 4:48 AM EST) WBC 6.1 4.8 - 10.8 K/mcL LAB HEMETOLOGY METHOD 09/26/2024 10:59 AM [facility] RBC 3.30(L) 4.50 - 5.50 M/mcL LAB HEMETOLOGY METHOD 09/26/2024 10:59 AM [facility] Hemoglobin 9.0(L) 13.5 - 17.5 g/dL LAB HEMETOLOGY METHOD 09/26/2024 10:59 AM [facility] Hematocrit 29.8(L) 42.0 - 54.0 % LAB HEMETOLOGY METHOD 09/26/2024 10:59 AM [facility] MCV 89.5 79.0 - 98.0 FL LAB HEMETOLOGY METHOD 09/26/2024 10:59 AM [facility] MCH 27.0 27.0 - 32.0 pcg LAB HEMETOLOGY METHOD 09/26/2024 10:59 AM [facility] MCHC 30.2(L) 32.0 - 37.0 g/dL LAB HEMETOLOGY METHOD 09/26/2024 10:59 AM [facility] RDW 16.9(H) 11.0 - 15.0 % LAB HEMETOLOGY METHOD 09/26/2024 10:59 AM [facility] Platelets 291 130 - 400 K/mcL LAB HEMETOLOGY METHOD 09/26/2024 10:59 AM [facility] MPV 9.7 7.0 - 11.0 FL LAB HEMETOLOGY METHOD 09/26/2024 10:59 AM EST [facility] NRBC 0.0 <1.0 % LAB HEMETOLOGY METHOD 09/26/2024 10:59 AM EST [facility] NRBC Absolute 0.00 <0.10 K/mcL LAB HEMETOLOGY METHOD 09/26/2024 10:59 AM EST [facility] Blood Venous blood specimen / Unknown Venipuncture / Unknown 09/26/2024 4:48 AM EST 09/26/2024 10:23 AM EST Vanessa Winslow MD LAB BLOOD ORDERABLES Final Res ult [facility] [address] [place] [address], [place] [phone] * (ABNORMAL) Magnesium (09/26/2024 4:48 AM EST) Magnesium 1.8(L) 1.9 - 2.6 mg/dL LAB CHEMISTRY METHOD 09/26/2024 12:10 PM EST [facility] Blood Venous blood specimen / Unknown Venipuncture / Unknown 09/26/2024 4:48 AM EST 09/26/2024 10:23 AM EST Vanessa Winslow MD LAB BLOOD ORDERABLES Final Res ult [facility] [address] [place] [address], [place] [phone] documented in this encounter Visit Diagnoses Diagnosis Magnesium deficiency Disorders of magnesium metabolism Hyperkalemia Hyperpotassemia Sepsis, unspecified organism (CMS/HCC V24, CMS/HCC V28) documented in this encounter Care Teams Senior Ui Ux Designer Relationship Specialty Start Date End Date Juan Carlos Luna, PT PCP - General Internal Medicine 06/12/15 documented as of this encounter
--- OUTSIDE RECORDS SUMMARY | 2025-02-10 12:56 | XMS_ITS | Clinical Summary ---
Author Organization [address] Address [address] [place] [address] Phone Care Team Providers Care Customizer Name Role Phone CherylJuan Carlos Sujit PT Primary Care Provider [phone] Surgical History Surgery Date Site/Laterality Comments OTHER SURGICAL HISTORY PROCEDURE:Left fibular fracture;COMMENT:01/14 COLONOSCOPY 06/22/2003 PROCEDURE:COLONOSCOPY;COMMENT:Yesi Berger - Benign appearing polyp at 20 cm COLONOSCOPY 06/08/2009 PROCEDURE:COLONOSCOPY;COMMENT:Yesi Berger - Colonic diverticulosis INCISION AND DRAINAGE FOOT 09/18/2017 Right PROCEDURE:INCISION AND DRAINAGE FOOT;COMMENT:Procedure: I&D FOOT; Surgeon: Carline Price DPM; Location: [facility]; Service: Podiatry; Laterality: Right; LAYERED WOUND CLOSURE 09/18/2017 Right PROCEDURE:LAYERED WOUND CLOSURE;COMMENT:Procedure: CLOSURE WOUND SECONDARY; Surgeon: Carline Price DPM; Location: [facility]; Service: Podiatry; Laterality: Right; INCISION AND DRAINAGE FOOT 09/14/2017 Right PROCEDURE:INCISION AND DRAINAGE FOOT;COMMENT:Procedure: I&D FOOT WITH REMOVAL OF BONE; Surgeon: Carline Price DPM; Location: [facility]; Service: Podiatry; Laterality: Right; TOE AMPUTATION 09/10/2017 Right PROCEDURE:TOE AMPUTATION;COMMENT:Procedure: AMPUTATION TOE, I&D RIGHT FOOT WITH REMOVAL OF BONE; Surgeon: Carline Price DPM; Location: [facility]; Service: Podiatry; Laterality: Right; Medical History Medical History Date Comments Anxiety disorder 05/25/2015 DX:Anxiety diso rder BP (high blood pressure) 05/25/2015 DX:BP ( high blood pressure) Benign localized hyperplasia of prostate 05/25/2015 DX:Benign localized hyperpla beverley of prostate History of colon polyps DX:Histo ry of colon polyps History of mitral valve prolapse DX:History of mitral valve prolapse Diabetes mellitus ([facility] V 24, [facility] V28) DX:Diabetes mellitus ([facility]);COMMENT:A1c 6.07 September 2017 Osteomyelitis of toe of righ t foot ([facility] V24, [facility] V28) DX:Osteomyelitis of toe of right foot ([facility]);COMMENT:third toe Family History Medical History Relation [...] 10/21/2024 11:16 AM EST [facility] Chloride 108 96 - 110 mmol/L LAB CHEMISTRY METHOD 10/21/2024 11:16 AM EST [facility] CO2 26 21 - 32 mmol/L LAB CHEMISTRY METHOD 10/21/2024 11:16 AM [facility] Anion Gap 6 3 - 11 LAB CHEMISTRY METHOD 10/21/2024 11:16 AM [facility] Glucose 142(H) 70 - 100 mg/dL LAB CHEMISTRY METHOD 10/21/2024 11:16 AM EST [facility] BUN 41(H) 5 - 25 mg/dL LAB CHEMISTRY METHOD 10/21/2024 11:16 AM [facility] Creatinine 1.21 0.70 - 1.30 mg/dL LAB CHEMISTRY METHOD 10/21/2024 11:16 AM [facility] eGFR 63 >=60 mL/min/1. 73m2 LAB CHEMISTRY METHOD 10/21/2024 11:16 AM EST [facility] Comment:Calculation based on the??Chronic Kidney Disease Epidemiology Collaboration (CKD-EPI) equation refit??without adjustment for race. BUN/Creatinine Ratio 33.9 LAB CHEMISTRY METHOD 10/21/2024 11:16 AM [facility] Calcium 9.1 8.5 - 10.5 mg/dL LAB CHEMISTRY METHOD 10/21/2024 11:16 AM [facility] Blood Venous blood specimen / Unknown Venipuncture / Unknown 10/21/2024 6:03 AM EST 10/21/2024 10:16 AM EST us Vanessa Winslow MD LAB BLOOD ORDERABLES Final Res ult [facility] [address] [place] [address], * Hemoglobin A1c (09/23/2024 7:27 AM EST) Hemoglobin A1C 6.2 <6.5 % LAB CHEMISTRY METHOD 09/23/2024 11:40 AM EST [facility] Mean Bld Glu Estim. 131 mg/dL LAB CHEMISTRY METHOD 09/23/2024 11:40 AM EST [facility] Blood Venous blood specimen / Unknown Venipuncture / Unknown 09/23/2024 7:27 AM EST 09/23/2024 9:33 AM EST us Vanessa Winslow MD LAB BLOOD ORDERABLES Final Res ult [facility] [address] [place] [address], [place] [phone] from Last 3 Months or Most Recently Relevant to Health Maintenance Insurance MEDICARE [facility] Care Teams Customizer Relationship Specialty Start Date End Date Juan Carlos Luna PT PCP - General Internal Medicine 06/12/15
--- OUTSIDE RECORDS SUMMARY | 2025-02-10 12:56 | XMS_ITS | Clinical Summary ---
Author Organization [facility] Address [address] [place] [address] Care Team Providers Care Auto Dealership Porter Name Role Phone Juan Carlos Luna MD [...] this topic Medical Devices Implanted Type Area Print Operator Device Identifier Shelf Expiration Date Model / Serial / Lot Sponge Surgifoam 100 [id number] 12.5x8cm Hemostatic Agent - [id number] - [id number] Implanted:Qty: 1 on 09/14/2017 by Carline Price DPM at [facility] Hemostatic Agent [employer] 02/10/2021 1974 / / [id number] Advance Directives For more information, please contact: [phone] Latest Code Status on File Code Status Date Activated Date Inactivated Comments Full Code 10/28/2017 12:29 AM 11/04/2017 11:33 PM Thi s code status was ascertained in the following way: per fci documentation. . Code Status History Code Status Date Activated Date Inactivated Comments Full Code 09/09/2017 8:34 PM 09/23/2017 3:01 AM This code status was ascertained in the following way: discussion with patient . Care Teams Auto Dealership Porter Relationship Specialty Start Date End Date Juan Carlos Luna MD PCP - General Internal Medicine 06/12/15
== END 2025-02-10 10:05 | disposition home or self-care (01) ==
LOC: HO.LAB 10:04
PROVIDERS: PCP Internal Medicine; Visit Provider Urology
DX: N39.0 Urinary tract infection, site not specified (principal); B95.1 Streptococcus, group B, as the cause of diseases classified elsewhere; N13.30 Unspecified hydronephrosis; R33.9 Retention of urine, unspecified; N32.89 Other specified disorders of bladder; E11.9 Type 2 diabetes mellitus without complications; Z13.9 Encounter for screening, unspecified
CPT/HCPCS: 51798; 81003; 87086; 87147; 99212

== ENCOUNTER 2025-03-23 13:39 | Outpatient (AMB) | payer MEDICARE, BC, SELFPAY ==
--- OUTSIDE RECORDS SUMMARY | 2025-03-23 13:50 | XMS_ITS | Encounter Summary ---
Author Organization [facility] Address [address] [place] [address] Care Team Providers Care Manual Arts Therapy Teacher Name Role Phone Juan Carlos Luna PT Primary Care Provider [phone] Encounter Details Date Type Department Care Team (Latest Contact Info) Description 10/21/2024 Lab Requisition [facility] - Main Lab [address] [facility] [place] [employer] [id number] Vanessa Winslow MD [address] [place] [id number] Metabolic encephalopathy Social History Tobacco Use Types [...] MD LAB BLOOD ORDERABLES Final Res ult [facility] [address] [place] [address], [place] [phone] * (ABNORMAL) Complete blood count (10/21/2024 6:03 AM EST) [facility] WBC 9.3 4.8 - 10.8 K/mcL [...] LAB HEMETOLOGY METHOD 10/21/2024 10:58 AM EST [facility] Blood Venous blood specimen / Unknown Venipuncture / Unknown 10/21/2024 6:03 AM EST 10/21/2024 10:16 AM EST us Vanessa Winslow MD LAB BLOOD ORDERABLES Final Res ult [facility] [address] [place] [address], documented in this encounter Visit Diagnoses Diagnosis Metabolic encephalopathy documented in this encounter Care Teams Manual Arts Therapy Teacher Relationship Specialty Start Date End Date Juan Carlos Luna, PT PCP - General Internal Medicine 06/12/15 documented as of this encounter
[2025-03-23 13:56] VITALS: BP 144/75; PULSE 70; RESP 14; TEMP 36.4; O2SAT 99; BMI 22.6
--- NOTE | 2025-03-23 13:56 | A.OFFPC_ITS ---
Vital Signs 03/23/25 13:56 Height 6 ft 2 in Weight 176 lb BMI 22.6 BP 144/75 H Respiration 14 Pulse 70 Pulse Source Pulse Oximeter Temp 97.6 F Temp Source Temporal Artery Scan Pulse Oximetry (%) 99 Oxygen Delivery Method Room Air Intake Visit Reasons: Routine 2 month F/U - see comments Director Of Special Services Required: No Accompanied by: Self / Same As Patient Allergies penicillin V Allergy (Intermediate, Verified 03/23/25 13:56) rash amoxicillin Allergy (Verified 03/23/25 13:56) Unknown Erythromycin Allergy (Intermediate, Uncoded 03/23/25 13:56) diarrhea Tobacco use date assessed: 03/23/25 Fall risk assessment: 1 Fall in past year Last assessed Fall Risk: 03/23/25 Dental Screening Dental Screen Date: 03/23/25 Did you have a dental visit in the last 12 months?: Yes Did you have a dental problem in the last 6 months where you did not have access to dental care?: No Was dental information given to patient?: Patient has dentist HPI HPI Comments History of Present Illness Details 75 yo male with past medical of afib, ht n, bph, anemia, presenting for follow up Difficult year with 4 hospitalizations-had uti, sepsis, norovirus, c diff. Feels well presently Endocrine: Diabetes. Last A1C 5.4% November. CV: Saw cardiology 01/27. Afib on eliquis and metoprolol. Urology: Follows with Dr Boateng. On finasteride. Off catheter. ROS CONSTITUTIONAL: Denies weight loss, fever and chills. HEENT: Denies changes in vision and hearing. RESPIRATORY: Denies SOB and cough. CV: Denies palpitations and CP GI: Denies abdominal pain, nausea, vomiting and diarrhea. : Denies dysuria and urinary frequency. MSK: Denies new myalgia and joint pain. SKIN: Denies rash and pruritus. NEUROLOGICAL: Denies headache PSYCHIATRIC: Denies recent changes in mood. PHYSICAL EXAM: GENERAL: Alert and oriented x 3. NAD EYES: EOMI. Anicteric. HENT: Moist mucous membranes. No scleral icterus. No cervical lymphadenopathy. LUNGS: Clear to auscultation bilaterally. CARDIOVASCULAR: Regular rate and rhythm. No murmur. No JVD. ABDOMEN: Soft, non-tender +bs EXTREMITIES: No edema. Non-tender. SKIN: No rashes or lesions. Warm. NEUROLOGIC: No focal neurological deficits. CN II-XII grossly intact PSYCHIATRIC: Cooperative. Appropriate mood and affect. [facility] Medical History PAF (paroxysmal atrial fibrillation) History of Clostridioides difficile infection Bacteriuria Bladder outlet obstruction Psoriasis Sepsis Elevated cholesterol Anemia BPH (benign prostatic hyperplasia) Diabetes Vitamin D deficiency Neuropathy HTN (hypertension) Chronic a-fib Amputation of great toe Osteomyelitis PVD (peripheral vascular disease) Amputation of toe of left foot Pre-diabetes History of neuropathy Arrhythmia Osteomyelitis of second toe of left foot Ulcer of left second toe Amputated toe of right foot History of heart valve abnormality Surgical History History of amputation of toe Status post amputation of toe Hx of amputation Status post ORIF of fracture of ankle Family History Mother CAD (coronary artery disease) Social History Household Members: Family Household Members Other:: Bother Housing: House Are you a primary spiritual care coordinator to a significant other at home: No Do you presently have visiting nurse or other home services: Yes (living Nurse) Alcohol intake: current Alcohol intake frequency: holidays/special occasions only Patient Tobacco Use Status: Never used Tobacco e-Cigarette/Vaping Use: Never Used Second Hand Smoke Exposure: No Advance Directives Date on File: 08/07/20 service: No Current occupational status: retired Cognitive needs: Yes (walker) Hearing needs: No Vision needs: Yes (reading glasses) Questionnaire PHQ-9 Over the last 2 weeks, how often have you been bothered by any of the following problems? 1. Little interest or pleasure in doing things: not at all 2. Feeling down, depressed, or hopeless: not at all 3. Trouble falling or staying asleep, or sleeping too much: not at all 4. Feeling tired or having little energy: not at all 5. Poor appetite or overeating: not at all 6. Feeling bad about yourself - or that you are a failure or have let yourself or your family down: not at all 7. Trouble concentrating on things, such as reading the newspaper or watching television: not at all 8. Moving or speaking so slowly that other people could have noticed. Or the opposite - being so fidgety or restless that you have been moving around a lot more than usual: not at all 9. Thoughts that you would be better off or of hurting yourself in some way: not at all Total score: 0 Depression Screening Interpretation: Negative Depression Screening Done: Yes [id number] - PHQ-9 Billing: Yes Source: Developed by Drs. Albert Goldman, Cecy Kenyon, Ochoa Carbajal and colleagues, with an educational carmelo from [employer]. Thrive Questionnaire Date Thrive assessed: 03/23/25 I am a: Patient What is your living situation today?: I have a steady place to live Within the past 12 months, did the food you bought not last and you didn't have the money to get more?: Never true Within the past 12 months, did you worry whether your food would run out before you got money to buy more?: Never true Do you have trouble paying for medicines?: No Do you have trouble getting transportation to medical appointments?: No Do you have trouble paying your heating and electricity bill?: No Do you have trouble taking care of your child, family member or friend?: No Do you have trouble with day-to-day activities such as bathing, preparing meals, shopping, managing finances, etc.?: Yes (has a live in nurse) Are you currently unemployed and looking for a job?: No Are you interested in more education?: No Please select the resources that you would like help with: None THRIVE Score: 0 AUDIT C Alcohol Use Questionnaire (AUDIT-C) 1. How often do you have a drink containing alcohol?: Never 3. How often do you have six or more drinks on one occasion?: Never Total Score: 0 UTE-7 AMB Questionnaire UTE-7 Date UTE - 7 assessed: 03/23/25 Feeling nervous, anxious, or on edge: 0 = Not at all Not being able to stop or control worryin = Not at all Worrying too much about different things: 0 = Not at all Trouble relaxin = Not at all Being so restless that it is hard to sit still: 0 = Not at all Becoming easily annoyed or irritable: 0 = Not at all Feeling afraid as if something awful might happen: 0 = Not at all Total UET-7 score (0-4 normal; 5-9 mild; 10-14 moderate; 15-21 severe): 0 Source: Developed by Drs. Albert Goldman, Cecy Kenyon, Ochoa Carbajal and colleagues, with an educational carmelo from [employer]. Physical exam (Primary Care) Vital Signs: Last Vital Signs Temp 97.6 F 03/23/25 13:56 Pulse 70 03/23/25 13:56 Resp 14 03/23/25 13:56 BP 144/75 H 03/23/25 13:56 Pulse Ox 99 03/23/25 13:56 Oxygen Delivery Method Room Air 03/23/25 13:56 BMI result Body Mass Index 22.6 Tobacco/Smoking Status: Tobacco use Status Tobacco use date assessed 03/23/25 03/23/25 14:07 Patient Tobacco Use Status Never used Tobacco 03/23/25 14:07 e-Cigarette/Vaping Use Never Used 03/23/25 14:07 PHQ-9: PHQ-9 Score PHQ-9: Total score 0 03/26/25 17:38 Depression Screening Interpretation: Negative Thrive Assessment: Date of Thrive Assessment Date Thrive assessed 03/23/25 03/23/25 14:07 Coding Level of Care Code Est Pt Level 4 (63407) Diagnoses PAF (paroxysmal atrial fibrillation) I48.0 Chronic a-fib I48.20 Diabetic polyneuropathy associated with diabetes mellitus due to underlying condition E08.42 Diabetes mellitus complication detail: diabetic polyneuropathy Additional Codes PHQ-9 - 58178 - PHQ-9 Billing: Yes ([id number]) Assessment & Plan Assessment & Plan (1) PAF (paroxysmal atrial fibrillation): Code(s): I48.0 - Paroxysmal atrial fibrillation Category: Medical (2) Chronic a-fib: Code(s): I48.20 - Chronic atrial fibrillation, unspecified Category: Medical (3) Diabetic neuropathy associated with diabetes mellitus due to underlying condition: Code(s): E08.40 - Diabetes mellitus due to underlying condition with diabetic neuropathy, unspecified Category: Medical Qualifiers: Diabetes mellitus complication detail: diabetic polyneuropathy Qualified Code(s): E08.42 - Diabetes mellitus due to underlying condition with diabetic polyneuropathy Plan 75 y/o male for follow up Bilateral hand pain-voltaren ordered Rash b/l hands Groin rash-ordered Orders: Orders Comprehensive Met. Panel 4 Months E08.42 - Diabetes mellitus due to underlying condition with diabetic polyneuropathy, N17.9 - Acute kidney failure, unspecified, R53.1 - Weakness Complete Blood Count Auto Diff 4 Months E08.42 - Diabetes mellitus due to und erlying condition with diabetic polyneuropathy, N17.9 - Acute kidney failure, unspecified, R53.1 - Weakness Hemoglobin A1c 4 Months E08.42 - Diabetes mellitus due to underlying condition with diabetic polyneuropathy, N17.9 - Acute kidney failure, unspecified, R53.1 - Weakness Medications: New diclofenac sodium 3% 1 appl topical BID 100 grams 1RF betamethasone, augmented 0.05 % (Diprolene (augmented)) 1 appl topical BID PRN 50 grams 3RF skin irritation-arms clotrimazole-betamethasone 1-0.05 % 1 appl topical BID 45 grams 3RF groin rash 4 weeks acetaminophen 500 mg PO BID 180 caps 3RF
== END 2025-03-23 14:57 | disposition home or self-care (01) ==
LOC: HO.HMCHD 13:39
PROVIDERS: PCP Internal Medicine; Visit Provider Internal Medicine
DX: I48.0 Paroxysmal atrial fibrillation (principal); I48.20 Chronic atrial fibrillation, unspecified; E08.42 Diabetes mellitus due to underlying condition with diabetic polyneuropathy

== ENCOUNTER → 2025-03-23 13:39 | Outpatient (BNVA) | payer MEDICARE, BC, SELFPAY | PROVIDERS: PCP Internal Medicine; Visit Provider Internal Medicine | DX: I48.0 Paroxysmal atrial fibrillation (principal); I48.20 Chronic atrial fibrillation, unspecified; E08.42 Diabetes mellitus due to underlying condition with diabetic polyneuropathy; I10 Essential (primary) hypertension; Z79.01 Long term (current) use of anticoagulants; Z79.899 Other long term (current) drug therapy | CPT/HCPCS: 96127; 99212 ==

== ENCOUNTER 2025-03-31 09:09 | Outpatient (REF) | payer MEDICARE, BC, SELFPAY | END 2025-03-31 09:10 | disposition home or self-care (01) | LOC: HO.LAB 09:09 | PROVIDERS: PCP Internal Medicine; Visit Provider Urology | DX: N39.0 Urinary tract infection, site not specified (principal); N32.0 Bladder-neck obstruction; Z13.9 Encounter for screening, unspecified | CPT/HCPCS: 81003; 87086; 87088; 87186 ==

== ENCOUNTER 2025-03-31 09:09 | Outpatient (AMB) | payer MEDICARE, BC, SELFPAY ==
--- OUTSIDE RECORDS SUMMARY | 2025-03-31 09:19 | XMS_ITS | Clinical Summary ---
Author Organization [address] Address [address] [place] [address] Phone Care Team Providers Care Manager Operations Name Role Phone LunaJuan Carlos Sujit PT Primary Care Provider [phone] Surgical History Surgery Date Site/Laterality Comments OTHER SURGICAL HISTORY PROCEDURE:Left fibular fracture;COMMENT:01/14 COLONOSCOPY 06/22/2003 PROCEDURE:COLONOSCOPY;COMMENT:Yesi Berger - Benign appearing polyp at 20 cm COLONOSCOPY 06/08/2009 PROCEDURE:COLONOSCOPY;COMMENT:Yesi Berger - Colonic diverticulosis INCISION AND DRAINAGE FOOT 09/18/2017 Right PROCEDURE:INCISION AND DRAINAGE FOOT;COMMENT:Procedure: I&D FOOT; Surgeon: Carline Price DPM; Location: [facility] MAIN OPERATING ROOM; Service: Podiatry; Laterality: Right; LAYERED WOUND CLOSURE 09/18/2017 Right PROCEDURE:LAYERED WOUND CLOSURE;COMMENT:Procedure: CLOSURE WOUND SECONDARY; Surgeon: Carline Price DPM; Location: [facility] MAIN OPERATING ROOM; Service: Podiatry; Laterality: Right; INCISION AND DRAINAGE FOOT 09/14/2017 Right PROCEDURE:INCISION AND DRAINAGE FOOT;COMMENT:Procedure: I&D FOOT WITH REMOVAL OF BONE; Surgeon: Carline Price DPM; Location: [facility] AMBULATORY SURGERY; Service: Podiatry; Laterality: Right; TOE AMPUTATION 09/10/2017 Right PROCEDURE:TOE AMPUTATION;COMMENT:Procedure: AMPUTATION TOE, I&D RIGHT FOOT WITH REMOVAL OF BONE; Surgeon: Carline Price DPM; Location: [facility] MAIN OPERATING ROOM; Service: Podiatry; Laterality: Right; Medical History Medical History Date Comments Anxiety disorder 05/25/2015 DX:Anxiety diso rder BP (high blood pressure) 05/25/2015 DX:BP ( high blood pressure) Benign localized hyperplasia of prostate 05/25/2015 DX:Benign localized hyperpla beverley of prostate History of colon polyps DX:Histo ry of colon polyps History of mitral valve prolapse DX:History of mitral valve prolapse Diabetes mellitus ([facility] V 24, [facility] V28) DX:Diabetes mellitus ([facility]);COMMENT:A1c 6.07 September 2017 Osteomyelitis of toe of righ t foot ([facility] V24, [facility] V28) DX:Osteomyelitis of toe of right foot ([facility]);COMMENT:third toe Family History Medical History [...] LAB CHEMISTRY METHOD 10/21/2024 11:[address] [facility] Potassium 5.0 3.5 - 5.5 mmol/L LAB CHEMISTRY METHOD 10/21/2024 11:[address] [facility] Chloride 108 96 - 110 mmol/L LAB CHEMISTRY METHOD 10/21/2024 11:[address] [facility] CO2 26 21 - 32 mmol/L LAB CHEMISTRY METHOD 10/21/2024 11:16 AM [facility] Anion Gap 6 3 - 11 LAB CHEMISTRY METHOD 10/21/2024 11:16 AM [facility] Glucose 142(H) 70 - 100 mg/dL LAB CHEMISTRY METHOD 10/21/2024 11:[address] [facility] BUN 41(H) 5 - 25 mg/dL LAB CHEMISTRY METHOD 10/21/2024 11:16 AM [facility] Creatinine 1.21 0.70 - 1.30 mg/dL LAB CHEMISTRY METHOD 10/21/2024 11:16 AM [facility] eGFR 63 >=60 mL/min/1. 73m2 LAB CHEMISTRY METHOD 10/21/2024 11:[address] [facility] Comment:Calculation based on the??Chronic Kidney Disease Epidemiology Collaboration (CKD-EPI) equation refit??without adjustment for race. BUN/Creatinine Ratio 33.9 LAB CHEMISTRY METHOD 10/21/2024 11:16 AM [facility] Calcium 9.1 8.5 - 10.5 mg/dL LAB CHEMISTRY METHOD 10/21/2024 11:16 AM [facility] Blood Venous blood specimen / Unknown Venipuncture / Unknown 10/21/2024 6:03 AM EST 10/21/2024 10:16 AM EST us Vanessa Winslow MD LAB BLOOD ORDERABLES Final Res ult [facility] [address] [place] [address], * Hemoglobin A1c (09/23/2024 7:27 AM EST) Hemoglobin A1C 6.2 <6.5 % LAB CHEMISTRY METHOD 09/23/2024 11:[address] [facility] Mean Bld Glu Estim. 131 mg/dL LAB CHEMISTRY METHOD 09/23/2024 11:40 AM EST [facility] Blood Venous blood specimen / Unknown Venipuncture / Unknown 09/23/2024 7:27 AM EST 09/23/2024 9:33 AM EST us Vanessa Winslow MD LAB BLOOD ORDERABLES Final Res ult [facility] [address] [place] [address], [place] [phone] from Last 3 Months or Most Recently Relevant to Health Maintenance Insurance MEDICARE [facility] Care Teams Manager Operations Relationship Specialty Start Date End Date Juan Carlos Luna PT PCP - General Internal Medicine 06/12/15
--- NOTE | 2025-03-31 10:32 | AM.OFFVISNUR ---
Intake Visit Reasons: UA Allergies penicillin V Allergy (Intermediate, Verified 03/23/25 13:56) rash amoxicillin Allergy (Verified 03/23/25 13:56) Unknown Erythromycin Allergy (Intermediate, Uncoded 03/23/25 13:56) diarrhea Nursing Note Patient presents to the office today for urodynamic testing. Urine collected via straight cath for urinalysis dip testing. Urine appears yellow cloudy and +leuks and +Blood. Reviewed results with Dr. Pastrana and decision to cx urodynamics for today. Urine sent to lab for culture. Will follow up Thursday with culture results and plan for rescheduling. Results AMB Urinalysis, Automated UA Leukoctes 125 Jamey/uL Last Edit by Sunita Marques RN on 03/31/25 10:32 UA Nitrite Negative Last Edit by Sunita Marques RN on 03/31/25 10:32 UA Urobilinogen 0.2 mg/dL Last Edit by Sunita Marques RN on 03/31/25 10:32 UA Protein 15 mg/dL Last Edit by Sunita Marques RN on 03/31/25 10:32 UA pH 6.0 Last Edit by Sunita Marques RN on 03/31/25 10:32 UA Blood 200 Trevon/uL Last Edit by Sunita Marques RN on 03/31/25 10:32 UA Specific [place] 1.0 Last Edit by Sunita Marques RN on 03/31/25 10:32 UA Ketone Negative Last Edit by Sunita Marques RN on 03/31/25 10:32 UA Bilirubin 0 mg/dL Last Edit by Sunita Marques RN on 03/31/25 10:32 UA Glucose 1000 mg/dL Last Edit by Sunita Marques RN on 03/31/25 10:32 Assessment & Plan Assessment & Plan Orders: Orders AMB Urinalysis Automated Today Z13.9 - Encounter for screening, unspecified Urine Culture Today N39.0 - Urinary tract infection, site not specified Coding
== END 2025-03-31 10:35 | disposition home or self-care (01) ==
PROVIDERS: PCP Internal Medicine; Visit Provider Urology
DX: Z13.9 Encounter for screening, unspecified (principal)

== ENCOUNTER 2025-04-04 09:34 | Outpatient (REF) | payer MEDICARE, BC, SELFPAY ==
--- OUTSIDE RECORDS SUMMARY | 2025-04-04 10:40 | XMS_ITS | Encounter Summary ---
Author Organization [facility] Address [address] [place] [address] Care Team Providers Care Site Head Name Role Phone Juan Carlos Luna PT Primary Care Provider [phone] Encounter Details Date Type Department Care Team (Latest Contact Info) Description 10/21/2024 Lab Requisition [facility] - Main Lab [address] [facility] [place] [id number] Vanessa Winslow MD [address] [place] [id number] Metabolic encephalopathy Social History Tobacco Use Types [...] mmol/L LAB CHEMISTRY METHOD 10/21/2024 11:16 AM [facility] Chloride 108 96 - 110 mmol/L LAB CHEMISTRY METHOD 10/21/2024 11:16 AM [facility] CO2 26 21 - 32 mmol/L LAB CHEMISTRY METHOD 10/21/2024 11:16 AM [facility] Anion Gap 6 3 - 11 LAB CHEMISTRY METHOD 10/21/2024 11:16 AM [facility] Glucose 142(H) 70 - 100 mg/dL LAB CHEMISTRY METHOD 10/21/2024 11:16 AM [facility] BUN 41(H) 5 - 25 mg/dL LAB CHEMISTRY METHOD 10/21/2024 11:16 AM [facility] Creatinine 1.21 0.70 - 1.30 mg/dL LAB CHEMISTRY METHOD 10/21/2024 11:16 AM [facility] eGFR 63 >=60 mL/min/1. 73m2 LAB CHEMISTRY METHOD 10/21/2024 11:16 AM [facility] Comment:Calculation based on the??Chronic Kidney Disease Epidemiology Collaboration (CKD-EPI) equation refit??without adjustment for race. BUN/Creatinine Ratio 33.9 LAB CHEMISTRY METHOD 10/21/2024 11:16 AM [facility] Calcium 9.1 8.5 - 10.5 mg/dL LAB CHEMISTRY METHOD 10/21/2024 11:16 AM [facility] Blood Venous blood specimen / Unknown Venipuncture / Unknown 10/21/2024 6:03 AM EST 10/21/2024 10:16 AM EST us Vanessa Winslow MD LAB BLOOD ORDERABLES Final Res ult [facility] [address] [place] [address], [place] [phone] * (ABNORMAL) Complete blood count (10/21/2024 6:03 AM EST) [facility] WBC 9.3 4.8 - 10.8 K/mcL LAB HEMETOLOGY METHOD 10/21/2024 10:58 AM [facility] RBC 3.30(L) 4.50 - 5.50 M/mcL LAB HEMETOLOGY METHOD 10/21/2024 10:58 AM [facility] Hemoglobin 9.3(L) 13.5 - 17.5 g/dL LAB HEMETOLOGY METHOD 10/21/2024 10:58 AM [facility] Hematocrit 31.0(L) 42.0 - 54.0 % LAB HEMETOLOGY METHOD 10/21/2024 10:58 AM [facility] MCV 93.7 79.0 - 98.0 FL LAB HEMETOLOGY METHOD 10/21/2024 10:58 AM [facility] MCH 28.1 27.0 - 32.0 pcg LAB HEMETOLOGY METHOD 10/21/2024 10:58 AM [facility] MCHC 30.0(L) 32.0 - 37.0 g/dL LAB HEMETOLOGY METHOD 10/21/2024 10:58 AM [facility] RDW 19.2(H) 11.0 - 15.0 % LAB HEMETOLOGY METHOD 10/21/2024 10:58 AM [facility] Platelets 396 130 - 400 K/mcL LAB HEMETOLOGY METHOD 10/21/2024 10:58 AM [facility] MPV 9.8 7.0 - 11.0 FL LAB HEMETOLOGY METHOD 10/21/2024 10:58 AM [facility] NRBC 0.0 <1.0 % LAB HEMETOLOGY METHOD 10/21/2024 10:58 AM [facility] NRBC Absolute 0.00 <0.10 K/mcL LAB HEMETOLOGY METHOD 10/21/2024 10:58 AM EST [facility] Blood Venous blood specimen / Unknown Venipuncture / Unknown 10/21/2024 6:03 AM EST 10/21/2024 10:16 AM EST us Vanessa Winslow MD LAB BLOOD ORDERABLES Final Res ult [facility] [address] [place] [address], documented in this encounter Visit Diagnoses Diagnosis Metabolic encephalopathy documented in this encounter Care Teams Site Head Relationship Specialty Start Date End Date Juan Carlos Luna, PT PCP - General Internal Medicine 06/12/15 documented as of this encounter
[2025-04-04 10:47] LABS: MANUAL DIFF FLAG NO
[2025-04-04 11:16] LABS: Basophils Percent Auto 0.5 % (0-2); Eosinophils Absolute Auto 0.2 X10*3/uL (0.0-0.4); Eosinophils Percent Auto 1.9 % (0-4); Hematocrit 39.7 % (42.0-52.0); Hemoglobin 12.9 g/dl (14.0-18.0); Imm Gran Abs Auto 0.03 X10*3/uL (0.00-0.03); Imm Gran Pct Auto 0.3 % (0.0-0.4); Lymphocytes Absolute Auto 1.7 X10*3/uL (1.2-4.9); Lymphocytes Percent Auto 20.1 % (20-40); Mean Corpuscular HGB Conc 32.5 g/dl (31.0-36.0); Mean Corpuscular Hemoglobin 29.3 pg (27.0-33.0); Mean Platelet Volume 9.3 fL (9.4-12.4); Monocytes Absolute Auto 0.7 X10*3/uL (0.1-1.2); Monocytes Percent Auto 7.8 % (2-11); Neutrophils Percent Auto 69.4 % (45-73); Platelet Count 289 X10*3/uL (160-400); Red Blood Count 4.41 X10*6/uL (4.60-5.80); Red Cell Distribution Width 14.3 % (11.0-16.0); White Blood Count 8.6 X10*3/uL (4.8-10.8)
[2025-04-04 11:25] LABS: Estimated Average Glucose 128 mg/dL; Hemoglobin A1C 149.2012 umol/L; Hemoglobin A1c % 6.1 % (<6.0)
[2025-04-04 11:33] LABS: Alanine Aminotransferase 13 U/L (0-40); Albumin Level 4.2 g/dL (3.5-5.0); Alkaline Phosphatase 90 U/L (39-117); Anion Gap 11 (12-20); Aspartate Amino Transferase 23 U/L (5-37); Bilirubin Total 0.5 mg/dL (0.0-1.0); Blood Urea Nitrogen 42 mg/dL (9-16); Calcium 9.5 mg/dL (8.4-10.2); Carbon Dioxide 27 mmol/L (22-29); Chloride 105 mmol/L (96-108); Cholesterol 205 mg/dL (<200); Estimated Glomerular Filt Rate 50; Glucose Random 99 mg/dL (60-115); HDL Cholesterol 48 mg/dL (>40); LDL Cholesterol Calculated 118 mg/dL (<100); Potassium 4.7 mmol/L (3.3-5.1); Sodium 138 mmol/L (135-145); Total Protein 7.5 g/dL (6.5-8.0); Triglycerides 197 mg/dL (<150)
[2025-04-04 11:36] LABS: TSH reflex Free T4 1.86 uIU/mL (0.32-4.0)
== END 2025-04-04 09:35 | disposition home or self-care (01) ==
LOC: HO.10HDL 09:34
PROVIDERS: Visit Provider Internal Medicine
DX: Z13.0 Encounter for screening for diseases of the blood and blood-forming organs and certain disorders involving the immune mechanism (principal); E08.40 Diabetes mellitus due to underlying condition with diabetic neuropathy, unspecified
CPT/HCPCS: 36415; 80053; 80061; 83036; 84443; 85025

== ENCOUNTER 2025-07-14 08:13 | Outpatient (AMB) | payer MEDICARE, BC, SELFPAY ==
--- OUTSIDE RECORDS SUMMARY | 2025-07-14 08:29 | XMS_ITS | Encounter Summary ---
Author Organization [facility] Address [address] [place] [address] Care Team Providers Care Hat Brim Curler Name Role Phone Juan Carlos Luna PT Primary Care Provider [phone] Encounter Details Date Type Department Care Team (Latest Contact Info) Description 09/23/2024 Lab Requisition [facility] - Main Lab 299 [facility] [place] [address] Vanessa Winslow MD [address] [place] [address] Type 2 diabetes mellitus without complications (CMS/HCC [...] LAB CHEMISTRY METHOD 09/23/2024 10:44 AM EST [facility] Blood Venous blood specimen / Unknown Venipuncture / Unknown 09/23/2024 7:27 AM EST 09/23/2024 9:33 AM EST us Vanessa Winslow MD LAB BLOOD ORDERABLES Final Res ult [facility] LAB [address] [place] [address], * Thyroxine free (09/23/2024 7:27 AM EST) Free T4 1.33 0.70 - 1.80 ng/dL LAB CHEMISTRY METHOD 09/23/2024 10:51 AM EST [facility] Blood Venous blood specimen / Unknown Venipuncture / Unknown 09/23/2024 7:27 AM EST 09/23/2024 9:33 AM EST Vanessa Winslow MD LAB BLOOD ORDERABLES Final Res ult Performing Organization Address City/[facility]/ZIP Co de Phone Number [facility] LAB [address] [place] [address], [place] [phone] * Thyroid stimulating hormone (09/23/2024 7:27 AM EST) Pathologist [facility] TSH 3.43 0.40 - 4.00 mcIU/mL LAB CHEMISTRY METHOD 09/23/2024 10:51 AM EST [facility] Blood Venous blood specimen / Unknown Venipuncture / Unknown 09/23/2024 7:27 AM EST 09/23/2024 9:33 AM EST Vanessa Winslow MD LAB BLOOD ORDERABLES Final Res ult Performing Organization Address [facility]/ZIP Co de Phone Number [facility] [address] [place] [address], [place] [phone] * Hemoglobin A1c (09/23/2024 7:27 AM EST) [facility] Hemoglobin A1C 6.2 <6.5 % LAB CHEMISTRY METHOD 09/23/2024 11:40 AM EST [facility] Mean Bld Glu Estim. 131 mg/dL LAB CHEMISTRY METHOD 09/23/2024 11:40 AM EST [facility] Blood Venous blood specimen / Unknown Venipuncture / Unknown 09/23/2024 7:27 AM EST 09/23/2024 9:33 AM EST Vanessa Winslow MD LAB BLOOD ORDERABLES Final Res ult Performing Organization Address City/[facility]/ZIP Co de Phone Number [facility] [address] [place] [address], [place] [phone] * (ABNORMAL) Comprehensive metabolic panel (09/23/2024 7:27 AM EST) [facility] Signature Sodium 141 133 - 145 mmol/L LAB CHEMISTRY METHOD 09/23/2024 10:45 AM [facility] Potassium 4.3 3.5 - 5.5 mmol/L LAB CHEMISTRY METHOD 09/23/2024 10:45 AM [facility] Chloride 109 96 - 110 mmol/L LAB CHEMISTRY METHOD 09/23/2024 10:45 AM [facility] CO2 23 21 - 32 mmol/L LAB CHEMISTRY METHOD 09/23/2024 10:45 AM [facility] Anion Gap 9 3 - 11 LAB CHEMISTRY METHOD 09/23/2024 10:45 AM [facility] Glucose 88 70 - 100 mg/dL LAB CHEMISTRY METHOD 09/23/2024 10:45 AM [facility] BUN 18 5 - 25 mg/dL LAB CHEMISTRY METHOD 09/23/2024 10:45 AM [facility] Creatinine 1.23 0.70 - 1.30 mg/dL LAB CHEMISTRY METHOD 09/23/2024 10:45 AM [facility] eGFR 62 >=60 mL/min/1. 73m2 LAB CHEMISTRY METHOD 09/23/2024 10:45 AM [facility] Comment:Calculation based on the Chronic Kidney Disease Epidemiology Collaboration (CKD-EPI) equation refit without adjustment for race. BUN/Creatinine Ratio 14.6 LAB CHEMISTRY METHOD 09/23/2024 10:45 AM [facility] Calcium 8.5 8.5 - 10.5 mg/dL LAB CHEMISTRY METHOD 09/23/2024 10:45 AM [facility] AST (SGOT) 23 10 - 42 unit/L LAB CHEMISTRY METHOD 09/23/2024 10:45 AM [facility] ALT (SGPT) 22 10 - 60 unit/L LAB CHEMISTRY METHOD 09/23/2024 10:45 AM [facility] Alkaline Phosphatase 119 42 - 121 unit/L LAB CHEMISTRY METHOD 09/23/2024 10:45 AM [facility] Total Protein 5.5(L) 6.0 - 8.0 g/dL LAB CHEMISTRY METHOD 09/23/2024 10:45 AM [facility] Albumin 2.1(L) 3.2 - 5.0 g/dL LAB CHEMISTRY METHOD 09/23/2024 10:45 AM [facility] Total Bilirubin 0.6 0.0 - 1.4 mg/dL LAB CHEMISTRY METHOD 09/23/2024 10:45 AM [facility] Blood Venous blood specimen / Unknown Venipuncture / Unknown 09/23/2024 7:27 AM EST 09/23/2024 9:33 AM EST us Vanessa Winslow MD LAB BLOOD ORDERABLES Final Res ult [facility] [address] [place] [address], [place] [phone] * (ABNORMAL) Complete blood count (09/23/2024 7:27 AM EST) WBC 5.4 4.8 - 10.8 K/mcL LAB HEMETOLOGY METHOD 09/23/2024 10:24 AM [facility] RBC 3.30(L) 4.50 - 5.50 M/mcL LAB HEMETOLOGY METHOD 09/23/2024 10:24 AM [facility] Hemoglobin 8.8(L) 13.5 - 17.5 g/dL LAB HEMETOLOGY METHOD 09/23/2024 10:24 AM [facility] Hematocrit 29.3(L) 42.0 - 54.0 % LAB HEMETOLOGY METHOD 09/23/2024 10:24 AM [facility] MCV 89.1 79.0 - 98.0 FL LAB HEMETOLOGY METHOD 09/23/2024 10:24 AM EST [facility] MCH 26.7(L) 27.0 - 32.0 pcg LAB HEMETOLOGY METHOD 09/23/2024 10:24 AM [facility] MCHC 30.0(L) 32.0 - 37.0 g/dL LAB HEMETOLOGY METHOD 09/23/2024 10:24 AM [facility] RDW 16.4(H) 11.0 - 15.0 % LAB HEMETOLOGY METHOD 09/23/2024 10:24 AM EST [facility] Platelets 231 130 - 400 K/mcL LAB HEMETOLOGY METHOD 09/23/2024 10:24 AM [facility] MPV 9.8 7.0 - 11.0 FL LAB HEMETOLOGY METHOD 09/23/2024 10:24 AM EST [facility] NRBC 0.0 <1.0 % LAB HEMETOLOGY METHOD 09/23/2024 10:24 AM [facility] NRBC Absolute 0.00 <0.10 K/mcL LAB HEMETOLOGY METHOD 09/23/2024 10:24 AM [facility] Blood Venous blood specimen / Unknown Venipuncture / Unknown 09/23/2024 7:27 AM EST 09/23/2024 9:33 AM EST us Vanessa Winslow MD LAB BLOOD ORDERABLES Final Res ult [facility] [address] [place] [address], documented in this encounter Visit Diagnoses Diagnosis Type 2 diabetes mellitus without complications (CMS/HCC V24, CMS/HCC V28) Essential (primary) hypertension Unspecified essential hypertension Unspecified atrial fibrillation (CMS/HCC V24, CMS/HCC V28) documented in this encounter Care Teams Hat Brim Curler Relationship Specialty Start Date End Date Juan Carlos Luna, PT PCP - General Internal Medicine 06/12/15 documented as of this encounter
--- OUTSIDE RECORDS SUMMARY | 2025-07-14 08:29 | XMS_ITS | Clinical Summary ---
Author Organization [facility] Address [address] [place] [address] Care Team Providers Care Product Communications Manager Name Role Phone Juan Carlos Luna MD [...] 150 11/04/2017 2:46 PM EST Temperature 36.7 C (98.1 F) 11/04/2017 11:00 AM EST Respiratory Rate 18 11/04/2017 11:00 AM EST [...] 08/14/2017, Additional history exists Influenza Vaccine (#1) 2025 DTap / Tdap / Td (3 - Td or Tdap) 09/09/2027 09/09/2017, 06/16/2015 Hepatitis B Vaccines Aged Out No long er eligible based on patient's age to complete this topic RSV Ped < 20 months Aged Out No longe r eligible based on patient's age to complete this topic Medical Devices Implanted Type Area Truss Maker Device Identifier Shelf Expiration Date Model / Serial / Lot Sponge Surgifoam 100 [id number] 12.5x8cm Hemostatic Agent - [id number] - [id number] Implanted:Qty: 1 on 09/14/2017 by Carline Price DPM [place] [facility] [place] [facility] [place] Hemostatic Agent [employer] 02/10/2021 1974 / / [id number] Advance Directives For more information, please contact: [phone] Latest Code Status on File Code Status Date Activated Date Inactivated Comments Full Code 10/28/2017 12:29 AM 11/04/2017 11:33 PM Thi s code status was ascertained in the following way: per residential documentation. . Code Status History Code Status Date Activated Date Inactivated Comments Full Code 09/09/2017 8:34 PM 09/23/2017 3:01 AM This code status was ascertained in the following way: discussion with patient . Care Teams Product Communications Manager Relationship Specialty Start Date End Date Juan Carlos Luna MD PCP - General Internal Medicine 06/12/15
--- OUTSIDE RECORDS SUMMARY | 2025-07-14 08:29 | XMS_ITS | Encounter Summary ---
Author Organization [facility] Address [address] [place] [address] Care Team Providers Care Lead Cook Name Role Phone Juan Carlos Luna PT Primary Care Provider Encounter Details Date Type Department Care Team (Latest Contact Info) Description 10/21/2024 Lab Requisition [facility] - Main Lab 299 [facility] for; to ([place]) [place] [id number] Vanessa Winslow MD [address] [place] [address] Metabolic encephalopathy Social History Tobacco Use Types [...] mmol/L LAB CHEMISTRY METHOD 10/21/2024 11:16 AM [facility] Chloride 108 96 - 110 mmol/L LAB CHEMISTRY METHOD 10/21/2024 11:16 AM [facility] CO2 26 21 - 32 mmol/L LAB CHEMISTRY METHOD 10/21/2024 11:16 AM [facility] Anion Gap 6 3 - 11 LAB CHEMISTRY METHOD 10/21/2024 11:16 AM [facility] Glucose 142(H) 70 - 100 mg/dL LAB CHEMISTRY METHOD 10/21/2024 11:16 AM [facility] BUN 41(H) 5 - 25 mg/dL LAB CHEMISTRY METHOD 10/21/2024 11:16 AM [facility] Creatinine 1.21 0.70 - 1.30 mg/dL LAB CHEMISTRY METHOD 10/21/2024 11:16 AM [facility] eGFR 63 >=60 mL/min/1. 73m2 LAB CHEMISTRY METHOD 10/21/2024 11:16 AM [facility] LAB Comment:Calculation based on the Chronic Kidney Disease Epidemiology Collaboration (CKD-EPI) equation refit without adjustment for race. BUN/Creatinine Ratio 33.9 LAB CHEMISTRY METHOD 10/21/2024 11:16 AM [facility] Calcium 9.1 8.5 - 10.5 mg/dL LAB CHEMISTRY METHOD 10/21/2024 11:16 AM [facility] Blood Venous blood specimen / Unknown Venipuncture / Unknown 10/21/2024 6:03 AM EST 10/21/2024 10:16 AM EST us Vanessa Winslow MD LAB BLOOD ORDERABLES Final Res ult [facility] [address] [place] [address], [place] [phone] * (ABNORMAL) Complete blood count (10/21/2024 6:03 AM EST) Pathologist [facility] WBC 9.3 4.8 - 10.8 K/mcL LAB HEMETOLOGY METHOD 10/21/2024 10:58 AM [facility] RBC 3.30(L) 4.50 - 5.50 M/mcL LAB HEMETOLOGY METHOD 10/21/2024 10:58 AM [facility] Hemoglobin 9.3(L) 13.5 - 17.5 g/dL LAB HEMETOLOGY METHOD 10/21/2024 10:58 AM [facility] Hematocrit 31.0(L) 42.0 - 54.0 % LAB HEMETOLOGY METHOD 10/21/2024 10:58 AM [facility] MCV 93.7 79.0 - 98.0 FL LAB HEMETOLOGY METHOD 10/21/2024 10:58 AM [facility] MCH 28.1 27.0 - 32.0 pcg LAB HEMETOLOGY METHOD 10/21/2024 10:58 AM [facility] MCHC 30.0(L) 32.0 - 37.0 g/dL LAB HEMETOLOGY METHOD 10/21/2024 10:58 AM [facility] RDW 19.2(H) 11.0 - 15.0 % LAB HEMETOLOGY METHOD 10/21/2024 10:58 AM [facility] Platelets 396 130 - 400 K/mcL LAB HEMETOLOGY METHOD 10/21/2024 10:58 AM [facility] MPV 9.8 7.0 - 11.0 FL LAB HEMETOLOGY METHOD 10/21/2024 10:58 AM [facility] NRBC 0.0 <1.0 % LAB HEMETOLOGY METHOD 10/21/2024 10:58 AM [facility] NRBC Absolute 0.00 <0.10 K/mcL LAB HEMETOLOGY METHOD 10/21/2024 10:58 AM [facility] Blood Venous blood specimen / Unknown Venipuncture / Unknown 10/21/2024 6:03 AM EST 10/21/2024 10:16 AM EST us Vanessa Winslow MD LAB BLOOD ORDERABLES Final Res ult [facility] [address] [place] [address], documented in this encounter Visit Diagnoses Diagnosis Metabolic encephalopathy documented in this encounter Care Teams Lead Cook Relationship Specialty Start Date End Date Juan Carlos Luna, PT PCP - General Internal Medicine 06/12/15 documented as of this encounter
--- OUTSIDE RECORDS SUMMARY | 2025-07-14 08:29 | XMS_ITS | Encounter Summary ---
Author Organization [facility] Address [address] [place] [address] Care Team Providers Care Warehouse Delivery Driver Name Role Phone Juan Carlos Luna PT Primary Care Provider [phone] Encounter Details Date Type Department Care Team (Late st Contact Info) Description 10/19/[address] [facility] - Main Lab [address] [facility] [place] [address] Vanessa Winslow MD [address] [place] [address] Unspecified atrial fibrillation (CMS/HCC V24, CMS/HCC V28); [...] mmol/L LAB CHEMISTRY METHOD 10/19/2024 2:[address] [facility] Potassium 4.7 3.5 - 5.5 mmol/L LAB CHEMISTRY METHOD 10/19/2024 2:[address] [facility] Chloride 107 96 - 110 mmol/L LAB CHEMISTRY METHOD 10/19/2024 2:[address] [facility] CO2 24 21 - 32 mmol/L LAB CHEMISTRY METHOD 10/19/2024 2:[address] [facility] Anion Gap 8 3 - 11 LAB CHEMISTRY METHOD 10/19/2024 2:[address] [facility] Glucose 179(H) 70 - 100 mg/dL LAB CHEMISTRY METHOD 10/19/2024 2:[address] [facility] BUN 42(H) 5 - 25 mg/dL LAB CHEMISTRY METHOD 10/19/2024 2:[address] [facility] LAB Comment:Results verified by repeat testing Creatinine 1.40(H) 0.70 - 1.30 mg/dL LAB CHEMISTRY METHOD 10/19/2024 2:[address] [facility] eGFR 53(L) >=60 mL/min/1. 73m2 LAB CHEMISTRY METHOD 10/19/2024 2:[address] [facility] Comment:Calculation based on the Chronic Kidney Disease Epidemiology Collaboration (CKD-EPI) equation refit without adjustment for race. BUN/Creatinine Ratio 30.0 LAB CHEMISTRY METHOD 10/19/2024 2:[address] [facility] Calcium 9.5 8.5 - 10.5 mg/dL LAB CHEMISTRY METHOD 10/19/2024 2:[address] [facility] Blood Venous blood specimen / Unknown Venipuncture / Unknown 10/19/2024 10:30 AM EST 10/19/2024 11:49 AM EST us Vanessa Winslow MD LAB BLOOD ORDERABLES Final Res ult [facility] [address] [place] [address], * (ABNORMAL) Complete blood count (10/19/2024 10:30 AM EST) WBC 12.6(H) 4.8 - 10.8 K/mcL LAB HEMETOLOGY METHOD 10/19/2024 1:32 PM EST [facility] RBC 3.50(L) 4.50 - 5.50 M/mcL LAB HEMETOLOGY METHOD 10/19/2024 1:[address] [facility] Hemoglobin 9.7(L) 13.5 - 17.5 g/dL LAB HEMETOLOGY METHOD 10/19/2024 1:[address] [facility] Hematocrit 31.9(L) 42.0 - 54.0 % LAB HEMETOLOGY METHOD 10/19/2024 1:32 PM EST [facility] MCV 91.7 79.0 - 98.0 FL LAB HEMETOLOGY METHOD 10/19/2024 1:[address] [facility] MCH 27.9 27.0 - 32.0 pcg LAB HEMETOLOGY METHOD 10/19/2024 1:[address] [facility] MCHC 30.4(L) 32.0 - 37.0 g/dL LAB HEMETOLOGY METHOD 10/19/2024 1:[address] [facility] RDW 19.3(H) 11.0 - 15.0 % LAB HEMETOLOGY METHOD 10/19/2024 1:[address] [facility] Platelets 485(H) 130 - 400 K/mcL LAB HEMETOLOGY METHOD 10/19/2024 1:[address] [facility] MPV 9.6 7.0 - 11.0 FL LAB HEMETOLOGY METHOD 10/19/2024 1:32 PM EST [facility] NRBC 0.0 <1.0 % LAB HEMETOLOGY METHOD 10/19/2024 1:32 PM EST [facility] NRBC Absolute 0.00 <0.10 K/mcL LAB HEMETOLOGY METHOD 10/19/2024 1:32 PM EST [facility] Blood Venous blood specimen / Unknown Venipuncture / Unknown 10/19/2024 10:30 AM EST 10/19/2024 11:49 AM EST us Vanessa Winslow MD LAB BLOOD ORDERABLES Final Res ult [facility] [address] [place] [address], documented in this encounter Visit Diagnoses Diagnosis Unspecified atrial fibrillation (CMS/HCC V24, CMS/HCC V28) 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
--- OUTSIDE RECORDS SUMMARY | 2025-07-14 08:29 | XMS_ITS ---
Author Organization [facility] on Care Team Providers Care End User Consultant Name Role Phone Nikky Paz Unavailable Unavailable Silas, Ted Unavailable Unavailable Moon, Rosanna Unavailable Unavailable Antonella Gamboa Unavailable Unavailable Rosaura, Shelia Unavailable Unavailable Ralph, Bello Unavailable Unavailable Garcia, Latha Unavailable Unavailable Allergies and adverse reactions No Known Allergies Care Team Name Role Address Phone Organization Dates Nikky Paz PCP [address] [place] [address], [place], [address], [place] (Office): : [facility] [place] [facility] 06/11/2024 - 06/30/2024 Ted Rosen [address] [place] [address], [facility] [place] (Office): [facility] [place] 06/11/2024 - 06/30/2024 Rosanna Mustafa [address] [place], [address], [place] (Office): [facility] [place] [facility] 06/11/2024 - 06/30/2024 Antonella Gamboa [address] [place], [address], [place] (Office): [facility] [place] 06/11/2024 - 06/30/2024 Shelia Kaplan [address] [place], [address], [place] (Office): : [facility] [place] 06/11/2024 - 06/30/2024 Bello Rosas [address] [place], [address], [place] (Office): [facility] [place] 06/11/2024 - 06/30/2024 Latha Garcia [address] [place] [address], [address], [place] (Office): : [facility] [place] 06/11/2024 - 06/30/2024 Immunizations Immunization Status Vaccine Details Vaccine Code CodeSystem Date Notes SARS-COV-2 (COVID-19) completed SARS-COV-2 (COVID-19) vaccine, mRNA, spike protein, LNP, preservative free, 100 mcg/0.5mL dose or 50 mcg/0.25mL dose Mfg: Moderna Step 2 of Multi-step with next step required 207 CVX created date: 06/16/2024 administer ed date: 08/22/2021 Verified in [facility]IS. SARS-COV-2 (COVID-19) completed SARS-COV-2 (COVID-19) vaccine, mRNA, spike protein, LNP, preservative free, 100 mcg/0.5mL dose or 50 mcg/0.25mL dose Mfg: Moderna Step 1 of Multi-step with next step required 207 CVX created date: 06/16/2024 administer ed date: 07/15/2021 Verified in MIIS. Prevnar 20 Pneumococcal conjugate (PCV20) new Pneumococcal conjugate vaccine 20-valent (PCV20), polysaccharide [id number] conjugate, adjuvant, preservative free 216 CVX created date: 06/22/2024 consent date: 06/22/2024 Educated by Julee Beard RN on 06/22/2024 RSV, recombinant, protein subunit RSVpreF, adjuvant rec new Respiratory syncytial virus (RSV), vaccine, recombinant, protein subunit RSV prefusion F, adjuvant reconstituted, 0.5 mL, preservative free 303 CVX created date: 06/22/2024 consent date: 06/22/2024 Educated by Julee Beard RN on 06/22/2024 COVID-19 vaccine, vector-nr, rS-Ad26, PF, 0.5 mL cancelled SARS-COV-2 (COVID-19) vaccine, vector non-replicating, recombinant spike protein-Ad26, preservative free, 0.5 mL 212 CVX created date: 06/22/2024 consent date: 06/22/2024 Educated by Julee Beard RN on 06/22/2024 Mental Status Section Date Assessment Total Score Description 06/30/2024 BIMS 14 cognitively int act CAM 0 No delirium ind icated PHQ-9 00 06/17/2024 BIMS 13 cognitively int act CAM 0 No delirium ind icated PHQ-9 08 mild depression Problems Problem # Description Date of onset Resolved Date Code CodeSystem Concern Status 1 ACUTE KIDNEY FAILURE, UNSPECIFIED 06/11/[address] active 2 ANEMIA, UNSPECIFIED 06/11/[address] active 3 BLADDER-NECK OBSTRUCTION 06/11/[address] active 4 CELLULITIS OF RIGHT LOWER LIMB 06/11/[id number] active 5 ENTEROCOLITIS DUE TO CLOSTRIDIUM DIFFICILE, NOT SPECIFIED RECURRENT 06/11/[address] active 6 ESSENTIAL (PRIMARY) HYPERTENSION 06/11/[address] active 7 LOCAL INFECTION OF THE SKIN AND SUBCUTANEOUS TISSUE, UNSPECIFIED 06/11/[address] active 8 NON-PRESSURE CHRONIC ULCER OF OTHER PART OF LEFT FOOT WITH UNSPECIFIED SEVERITY 06/11/[address] active 9 OBSTRUCTIVE AND REFLUX UROPATHY, UNSPECIFIED 06/11/[address] active 10 OTHER HYDRONEPHROSIS 06/11/[address] active 11 PERIPHERAL VASCULAR DISEASE, UNSPECIFIED 06/11/[address] active 12 SEPSIS, UNSPECIFIED ORGANISM 06/11/[address] active 13 TYPE 2 DIABETES MELLITUS WITH DIABETIC NEUROPATHY, UNSPECIFIED 06/11/[address] active 14 UNSPECIFIED ATRIAL FIBRILLATION 06/11/[address] active 15 URINARY TRACT INFECTION, SITE NOT SPECIFIED 06/11/[address] active Reason for Referral No Reasons for Referral Entered Social History Social History Observation Description Start Date End Date Code Code System Current Smoking Status Tobacco smoking consumption unknown 638686827 SNOMED CT Sex Assigned At Male 1950 65365-5 [facility] Gender Identity Sexual Orientation Vital Signs Code Code System Vitals Name Values and Units Timing Information 9279-1 [facility] Respiratory Rate Value=17.0 Units=/m in 06/30/2024 8462-4 [facility] Blood Pressure-Diastolic Value=65 Un its=mmHg 06/30/2024 8480-6 [facility] Blood Pressure-Systolic Ncpyo=635 Un its=mmHg 06/30/2024 8310-5 [facility] Body Temperature Value=97.8 Units= F 06/30/2024 8867-4 [facility] Heart rate Value=75.0 Units=/min 66066-9 [facility] O2 % BldC Oximetry Value=97.0 Units= % 06/30/2024 60294-2 [facility] Pain Level Value=0.0 06/30/2024 2339-0 [facility] Blood Sugar Fdpus=334.0 Units=mg/dL 06/30/2024 27080-6 [facility] Weight Eiozo=717.0 Units=Lbs 8302-2 [facility] Height Value=68.0 Units=Inches 06/13/2024
--- OUTSIDE RECORDS SUMMARY | 2025-07-14 08:29 | XMS_ITS | Encounter Summary ---
Author Organization [facility] Address [address] [place] [address] Care Team Providers Care Inspector Of Dredging Name Role Phone Juan Carlos Luna PT Primary Care Provider [phone] Encounter Details Date Type Department Care Team (Late st Contact Info) Description 10/21/2024 Lab Requisition [facility] - Main Lab [address] [facility] [place] [address] Vanessa Winslow MD [address] [place] [id number] Urinary tract infection, site not specified Social [...] EST Urinary tract infection, site not specified BARID URINE CULTURE TUBE Routine 10/20/2024 8:00 PM EST Urinary tract infection, site not specified URINALYSIS WITH REFLEX MICROSCOPIC Routine 10/20/2024 8:00 PM EST Urinary tract infection, site not specified documented in this encounter Results * (ABNORMAL) Urinalysis with reflex microscopic (10/20/2024 8:00 PM EST) Specific [place] Urine 1.022 1.003 - 1.030 LAB URINALYSIS - AUTOMATED METHOD 10/21/2024 11:30 AM [facility] pH, Urine 7.0 5.0 - 8.0 pH LAB URINALYSIS - AUTOMATED METHOD 10/21/2024 11:30 AM [facility] Leukocytes, Urine Moderate(A) Negative LAB URINALYSIS - AUTOMATED METHOD 10/21/2024 11:30 AM [facility] Nitrite, Urine Negative Negative LAB URINALYSIS - AUTOMATED METHOD 10/21/2024 11:30 AM [facility] Protein, Urine 100(A) <=Trace mg/dL LAB URINALYSIS - AUTOMATED METHOD 10/21/2024 11:30 AM [facility] Glucose, Urine >=1000(A) Negative mg/dL LAB URINALYSIS - AUTOMATED METHOD 10/21/2024 11:30 AM [facility] Ketones, Urine Negative Negative mg/dL LAB URINALYSIS - AUTOMATED METHOD 10/21/2024 11:30 AM [facility] Urobilinogen , Urine 0.2 0.2 - 1.0 mg/dL LAB URINALYSIS - AUTOMATED METHOD 10/21/2024 11:30 AM [facility] Bilirubin, Urine Negative Negative LAB URINALYSIS - AUTOMATED METHOD 10/21/2024 11:30 AM [facility] Blood, Urine Small(A) Negative LAB URINALYSIS - AUTOMATED METHOD 10/21/2024 11:30 AM [facility] RBC, Urine 8.6(H) 0 - 4 /HPF LAB URINALYSIS - AUTOMATED METHOD 10/21/2024 11:30 AM [facility] WBC, Urine 293.5(H) 0 - 4 /HPF LAB URINALYSIS - AUTOMATED METHOD 10/21/2024 11:30 AM [facility] Squamous Epithelial, Urine 3 0 - 60 /LPF LAB URINALYSIS - AUTOMATED METHOD 10/21/2024 11:30 AM [facility] Bacteria, Urine Negative Negative /HPF LAB URINALYSIS - AUTOMATED METHOD 10/21/2024 11:30 AM [facility] Hyaline Casts, Urine 0.0 0 - 3 /LPF LAB URINALYSIS - AUTOMATED METHOD 10/21/2024 11:30 AM [facility] Urine Urine specimen obtained by clean catch procedure / Unknown Non-blood Collection / Unknown 10/20/2024 8:00 PM EST 10/21/2024 9:44 AM EST Vanessa Winslow MD LAB URINE ORDERABLES Final Res ult Performing Organization Address [facility]/ZIP Co de Phone Number [facility] [address] [place] [address], [place] [phone] * Baird urine culture tube (10/20/2024 8:00 PM EST) Extra Tube Hold for add-ons. 10/21/2024 11:01 AM [facility] Comment:Auto resulted. Urine Urine specimen obtained by clean catch procedure / Unknown Non-blood Collection / Unknown 10/20/2024 8:00 PM EST 10/21/2024 9:44 AM EST us Vanessa Winslow MD LAB URINE ORDERABLES Final Res ult Performing Organization Address City/[facility]/ZIP Co de Phone Number [facility] [address] [place] [address], [place] [phone] documented in this encounter Visit Diagnoses Diagnosis Urinary tract infection, site not specified documented in this encounter Care Teams Inspector Of Dredging Relationship Specialty Start Date End Date Juan Carlos Luna, PT PCP - General Internal Medicine 06/12/15 documented as of this encounter
--- OUTSIDE RECORDS SUMMARY | 2025-07-14 08:29 | XMS_ITS | Encounter Summary ---
Author Organization [facility] Address [address] [place] [address] Care Team Providers Care Multiple Slide Operator Name Role Phone Juan Carlos Luna PT Primary Care Provider [phone] Encounter Details Date Type Department Care Team (Late st Contact Info) Description 09/26/2024 Lab Requisition [facility] - Main Lab [address] [facility] [place] [address] Vanessa Winslow MD [address] [place] [phone] Magnesium deficiency; Hyperkalemia; Sepsis, unspecified organism (CMS/HCC [...] mmol/L LAB CHEMISTRY METHOD 09/26/2024 12:10 PM [facility] Potassium 5.5 3.5 - 5.5 mmol/L LAB CHEMISTRY METHOD 09/26/2024 12:10 PM [facility] Chloride 110 96 - 110 mmol/L LAB CHEMISTRY METHOD 09/26/2024 12:10 PM [facility] CO2 23 21 - 32 mmol/L LAB CHEMISTRY METHOD 09/26/2024 12:10 PM [facility] Anion Gap 9 3 - 11 LAB CHEMISTRY METHOD 09/26/2024 12:10 PM [facility] Glucose 102(H) 70 - 100 mg/dL LAB CHEMISTRY METHOD 09/26/2024 12:10 PM [facility] BUN 18 5 - 25 mg/dL LAB CHEMISTRY METHOD 09/26/2024 12:10 PM [facility] Creatinine 1.31(H) 0.70 - 1.30 mg/dL LAB CHEMISTRY METHOD 09/26/2024 12:10 PM [facility] eGFR 57(L) >=60 mL/min/1. 73m2 LAB CHEMISTRY METHOD 09/26/2024 12:10 PM [facility] Comment:Calculation based on the Chronic Kidney Disease Epidemiology Collaboration (CKD-EPI) equation refit without adjustment for race. BUN/Creatinine Ratio 13.7 LAB CHEMISTRY METHOD 09/26/2024 12:10 PM [facility] Calcium 8.7 8.5 - 10.5 mg/dL LAB CHEMISTRY METHOD 09/26/2024 12:10 PM [facility] Blood Venous blood specimen / Unknown Venipuncture / Unknown 09/26/2024 4:48 AM EST 09/26/2024 10:23 AM EST us Vanessa Winslow MD LAB BLOOD ORDERABLES Final Res ult [facility] [address] [place] [address], * (ABNORMAL) Complete blood count (09/26/2024 4:48 AM EST) WBC 6.1 4.8 - 10.8 K/mcL LAB HEMETOLOGY METHOD 09/26/2024 10:59 AM EST [facility] RBC 3.30(L) 4.50 - 5.50 M/[facility] LAB HEMETOLOGY METHOD 09/26/2024 10:59 AM [facility] Hemoglobin 9.0(L) 13.5 - 17.5 g/dL LAB HEMETOLOGY METHOD 09/26/2024 10:59 AM [facility] Hematocrit 29.8(L) 42.0 - 54.0 % LAB HEMETOLOGY METHOD 09/26/2024 10:59 AM EST [facility] MCV 89.5 79.0 - 98.0 FL LAB HEMETOLOGY METHOD 09/26/2024 10:59 AM [facility] MCH 27.0 27.0 - 32.0 pcg LAB HEMETOLOGY METHOD 09/26/2024 10:59 AM [facility] MCHC 30.2(L) 32.0 - 37.0 g/dL LAB HEMETOLOGY METHOD 09/26/2024 10:59 AM EST [facility] RDW 16.9(H) 11.0 - 15.0 % LAB HEMETOLOGY METHOD 09/26/2024 10:59 AM [facility] Platelets 291 130 - 400 K/mcL LAB HEMETOLOGY METHOD 09/26/2024 10:59 AM [facility] MPV 9.7 7.0 - 11.0 FL LAB HEMETOLOGY METHOD 09/26/2024 10:59 AM EST [facility] NRBC 0.0 <1.0 % LAB HEMETOLOGY METHOD 09/26/2024 10:59 AM EST [facility] NRBC Absolute 0.00 <0.10 K/mcL LAB HEMETOLOGY METHOD 09/26/2024 10:59 AM EST [facility] Blood Venous blood specimen / Unknown Venipuncture / Unknown 09/26/2024 4:48 AM EST 09/26/2024 10:23 AM EST Vanessa Winslow MD LAB BLOOD ORDERABLES Final Res ult [facility] [address] [place] [address], [place] [phone] * (ABNORMAL) Magnesium (09/26/2024 4:48 AM EST) Magnesium 1.8(L) 1.9 - 2.6 mg/dL LAB CHEMISTRY METHOD 09/26/2024 12:10 PM EST [facility] Blood Venous blood specimen / Unknown Venipuncture / Unknown 09/26/2024 4:48 AM EST 09/26/2024 10:23 AM EST Vanessa Winslow MD LAB BLOOD ORDERABLES Final Res ult [facility] [address] [place] [address], [place] [phone] documented in this encounter Visit Diagnoses Diagnosis Magnesium deficiency Disorders of magnesium metabolism Hyperkalemia Hyperpotassemia Sepsis, unspecified organism (CMS/HCC V24, CMS/HCC V28) documented in this encounter Care Teams Multiple Slide Operator Relationship Specialty Start Date End Date Juan Carlos Luna, PT PCP - General Internal Medicine 06/12/15 documented as of this encounter
--- OUTSIDE RECORDS SUMMARY | 2025-07-14 08:29 | XMS_ITS | Clinical Summary ---
Author Organization [address] Address [address] [place] [address] Phone Care Team Providers Care Forestry Pilot Name Role Phone CherylJuan Carlos Sujit PT Primary Care Provider [phone] Surgical History Surgery Date Site/Laterality Comments OTHER SURGICAL HISTORY PROCEDURE:Left fibular fracture;COMMENT:01/14 COLONOSCOPY 06/22/2003 PROCEDURE:COLONOSCOPY;COMMENT:Yesi Berger - Benign appearing polyp at 20 cm COLONOSCOPY 06/08/2009 PROCEDURE:COLONOSCOPY;COMMENT:Yesi Berger - Colonic diverticulosis INCISION AND DRAINAGE FOOT 09/18/2017 Right PROCEDURE:INCISION AND DRAINAGE FOOT;COMMENT:Procedure: I&D FOOT; Surgeon: Carline Price DPM; Location: [facility] MAIN OPERATING ROOM; Service: Podiatry; Laterality: Right; LAYERED WOUND CLOSURE 09/18/2017 Right PROCEDURE:LAYERED WOUND CLOSURE;COMMENT:Procedure: CLOSURE WOUND SECONDARY; Surgeon: Carline Price DPM; Location: [facility] MAIN OPERATING ROOM; Service: Podiatry; Laterality: Right; INCISION AND DRAINAGE FOOT 09/14/2017 Right PROCEDURE:INCISION AND DRAINAGE FOOT;COMMENT:Procedure: I&D FOOT WITH REMOVAL OF BONE; Surgeon: Carline Price DPM; Location: [facility] AMBULATORY SURGERY; Service: Podiatry; Laterality: Right; TOE AMPUTATION 09/10/2017 Right PROCEDURE:TOE AMPUTATION;COMMENT:Procedure: AMPUTATION TOE, I&D RIGHT FOOT WITH REMOVAL OF BONE; Surgeon: Carline Price DPM; Location: [facility] MAIN OPERATING ROOM; Service: Podiatry; Laterality: Right; Medical History Medical History Date Comments Anxiety disorder 05/25/2015 DX:Anxiety diso rder BP (high blood pressure) 05/25/2015 DX:BP ( high blood pressure) Benign localized hyperplasia of prostate 05/25/2015 DX:Benign localized hyperpla beverley of prostate History of colon polyps DX:Histo ry of colon polyps History of mitral valve prolapse DX:History of mitral valve prolapse Diabetes mellitus ([facility] V 24, [facility] V28) DX:Diabetes mellitus ([facility]);COMMENT:A1c 6.07 September 2017 Osteomyelitis of toe of righ t foot ([facility] V24, [facility] V28) DX:Osteomyelitis of toe of right foot ([facility]);COMMENT:third toe Family History Medical History Relation [...] Panel) 09/23/2024 Colorectal Cancer Screening: Colonoscopy 09/23/2024 Diabetes: Annual Urine Albumin-Creatinine Ratio (uACR) 09/23/2024 Falls Risk Assessment 09/23/2024 Hepatitis C Screening 09/23/2024 Medicare Annual Wellness Visit 09/23/2024 Social Influencers of Health Screening 09/23/2024 Depression Screening 11/02/2024 Diabetes: Blood Sugar Control Test (HGBA1C) 03/23/2025 09/23/2024 Influenza Vaccine (#1) 2025 Diabetes: Annual GFR (Glomerular Filtration Rate) [...] LAB CHEMISTRY METHOD 10/21/2024 11:16 AM EST [facility] Potassium 5.0 3.5 - 5.5 mmol/L LAB CHEMISTRY METHOD 10/21/2024 11:16 AM EST [facility] Chloride 108 96 - 110 mmol/L LAB CHEMISTRY METHOD 10/21/2024 11:16 AM EST [facility] CO2 26 21 - 32 mmol/L LAB CHEMISTRY METHOD 10/21/2024 11:16 AM [facility] Anion Gap 6 3 - 11 LAB CHEMISTRY METHOD 10/21/2024 11:16 AM [facility] Glucose 142(H) 70 - 100 mg/dL LAB CHEMISTRY METHOD 10/21/2024 11:16 AM [facility] BUN 41(H) 5 - 25 mg/dL LAB CHEMISTRY METHOD 10/21/2024 11:16 AM [facility] Creatinine 1.21 0.70 - 1.30 mg/dL LAB CHEMISTRY METHOD 10/21/2024 11:16 AM [facility] eGFR 63 >=60 mL/min/1. 73m2 LAB CHEMISTRY METHOD 10/21/2024 11:16 AM [facility] Comment:Calculation based on the Chronic Kidney Disease Epidemiology Collaboration (CKD-EPI) equation refit without adjustment for race. BUN/Creatinine Ratio 33.9 LAB CHEMISTRY METHOD 10/21/2024 11:16 AM [facility] Calcium 9.1 8.5 - 10.5 mg/dL LAB CHEMISTRY METHOD 10/21/2024 11:16 AM [facility] Blood Venous blood specimen / Unknown Venipuncture / Unknown 10/21/2024 6:03 AM EST 10/21/2024 10:16 AM EST us Vanessa Winslow MD LAB BLOOD ORDERABLES Final Res ult [facility] [address] [place] [address], * Hemoglobin A1c (09/23/2024 7:27 AM EST) Hemoglobin A1C 6.2 <6.5 % LAB CHEMISTRY METHOD 09/23/2024 11:40 AM EST [facility] Mean Bld Glu Estim. 131 mg/dL LAB CHEMISTRY METHOD 09/23/2024 11:40 AM EST [facility] Blood Venous blood specimen / Unknown Venipuncture / Unknown 09/23/2024 7:27 AM EST 09/23/2024 9:33 AM EST us Vanessa Winslow MD LAB BLOOD ORDERABLES Final Res ult [facility] [address] [place] [address], [place] [phone] from Last 3 Months or Most Recently Relevant to Health Maintenance Insurance MEDICARE [facility] Care Teams Forestry Pilot Relationship Specialty Start Date End Date Juan Carlos Luna PT PCP - General Internal Medicine 06/12/15
[2025-07-14 08:31] VITALS: BP 130/62; PULSE 110; BMI 24.7
--- NOTE | 2025-07-14 08:31 | A.OFFVIS_ITS ---
Vital Signs 07/14/25 08:31 Height 6 ft 2 in Weight 192 lb 3.889 oz BMI 24.7 BP 130/62 Blood Pressure Location Lt brachial Position Sitting Pulse 110 H Pulse Source Monitor Intake Visit Reasons: 5m follow up r/s 06-28-25 Vice President Payer Required: No Allergies penicillin V Allergy (Intermediate, Verified 07/14/25 08:34) rash amoxicillin Allergy (Verified 07/14/25 08:34) Unknown Erythromycin Allergy (Intermediate, Uncoded 07/14/25 08:34) diarrhea Medication List - Last Reconciled 07/14/25 by ANGELA LayC acetaminophen 500 mg PO BID amiodarone 200 mg PO DAILY apixaban (Eliquis) 5 mg PO BID betamethasone, augmented 0.05 % (Diprolene (augmented)) 1 appl topical BID PRN bethanechol chloride 25 mg PO BID 90 days bisacodyl 10 mg WA DAILY PRN clotrimazole-betamethasone 1-0.05 % 1 appl topical BID 4 weeks dapagliflozin propanediol (Farxiga) 10 mg PO DAILY diclofenac sodium 3% 1 appl topical BID finasteride 5 mg PO BEDTIME folic acid 1 mg PO DAILY glucagon 1 mg subcut Q15M PRN lancets As directed magnesium hydroxide (Milk of Magnesia) 30 mL PO BEDTIME PRN magnesium oxide 400 mg PO DAILY metoprolol tartrate 25 mg PO BID midodrine 10 mg PO Q8H PRN nitrofurantoin monohyd/m-cryst 100 mg (Macrobid) 100 mg PO BID 7 days potassium chloride ER 8 mEq PO BID sodium phosphates 19-7 gram/118 mL (Fleet Enema) 118 mL WA DAILY PRN tamsulosin 0.4 mg PO BEDTIME thiamine HCl (vitamin B1) 100 mg PO DAILY HPI HPI 5m follow up r/s 06-28-25: Details: Shashank is a 75-year-old male with past medical history of hypertension, hyperlipidemia, diabetes, persistent atrial fibrillation, [id number] mitral regurgitation who presents for follow-up. Today he reports that he has been doing well cardiac-merritt. His primary concern is of urinary issues and he follows with Dr. Boateng. He has not been having any heart palpitations, lightheadedness, chest discomfort, shortness of breath, leg edema. He does only light physical activities and ambulates with a walker. He reports compliance with all his medications. No bleeding issues reported. [facility] Medical History (Updated 07/14/25 @ 12:21 by ANGELA LayC) PAF (paroxysmal atrial fibrillation) History of Clostridioides difficile infection Bacteriuria Bladder outlet obstruction Psoriasis Sepsis Elevated cholesterol Anemia BPH (benign prostatic hyperplasia) Diabetes Vitamin D deficiency Neuropathy HTN (hypertension) Chronic a-fib Amputation of great toe Osteomyelitis PVD (peripheral vascular disease) Amputation of toe of left foot Pre-diabetes History of neuropathy Arrhythmia Osteomyelitis of second toe of left foot Ulcer of left second toe Amputated toe of right foot History of heart valve abnormality Surgical History History of amputation of toe Status post amputation of toe Hx of amputation Status post ORIF of fracture of ankle Family History Mother CAD (coronary artery disease) Social History Household Members: Family Household Members Other:: Bother Housing: House Are you a primary child care worker to a significant other at home: No Do you presently have visiting nurse or other home services: Yes (living Nurse) Alcohol intake: current Alcohol intake frequency: holidays/special occasions only Patient Tobacco Use Status: Never used Tobacco e-Cigarette/Vaping Use: Never Used Second Hand Smoke Exposure: No Advance Directives Date on File: 08/07/20 service: No Current occupational status: retired Cognitive needs: Yes (walker) Hearing needs: No Vision needs: Yes (reading glasses) Review of Systems Const All systems reviewed & are unremarkable except as noted in HPI and below ENT Denies dizziness Card Denies chest pain, Denies chest pain at rest, Denies chest pain with activity, Denies rapid heart rate, Denies pedal edema, Denies edema, Denies leg edema, Denies lightheadedness, Denies palpitations, Denies dyspnea, Denies dyspnea on exertion and Denies orthopnea Resp Denies cough, Denies dyspnea and Denies dyspnea on exertion GI Denies hematochezia and Denies change in stool character Musc Denies abnormal gait, Denies limited range of motion, Denies muscle cramps, Denies muscle weakness, Denies numbness, Denies radiating pain into limb, Denies stiffness and Denies tingling Neuro Denies abnormal gait, Denies dizziness, Denies numbness and Denies tingling Endo Denies palpitations Physical Exam Vital Signs: Last Vital Signs Pulse 110 H 07/14/25 08:31 BP 130/62 07/14/25 08:31 BMI result Body Mass Index 24.7 Const General: cooperative, healthy appearing, comfortable and no acute distress Orientation/consciousness: patient oriented x3 Neck Neck: Yes no JVD Resp Effort & Inspection: normal respiratory effort Auscultation: clear to auscultation bilaterally, no crackles, no rales, no rhonchi and no wheezes Cardio Jugular venous distension: no JVD Rate: tachycardic Rhythm: abnormal rhythm Heart sounds: S1 normal heart sound present, S2 normal heart sound present, no gallops, no murmurs and no rubs Neuro General: patient oriented x3 Extrem General: Yes normal to inspection, No no pedal edema and No calf tenderness Psych Appearance: grossly normal Mental Status: mental status grossly normal Speech and movement: Normal speech and movement present Office Procedures EKG Details: Today, read by me, atrial fibrillation with RVR with frequent PVCs versus aberrantly conducted complexes, rate 110, QTC 473 milliseconds [id number], Complete Assessment & Plan Assessment & Plan (1) Chronic a-fib: Code(s): I48.20 - Chronic atrial fibrillation, unspecified Category: Medical Plan: History of chronic atrial fibrillation treated with heart rate control. He is on amiodarone and metoprolol to help with rate control. Labs done 04/04/2025 showed normal AST and ALT, TSH 1.86. He is on Eliquis for anticoagulation. No bleeding issues reported. EKG today showing atrial fibrillation with rapid ventricular response, frequent PVCs, rate 110. He tells me he has visiting nurses at home that tell him his heart rate is normal. Will check Holter monitor to assess average heart rate and frequency of PVCs. Will update echocardiogram to ensure EF remains normal. No med changes made at this time. Cardiology office visit 6 months, sooner if needed. (2) Mitral regurgitation: Code(s): I34.0 - Nonrheumatic mitral (valve) insufficiency Category: Medical Plan: Last echo 03/07/2025 shows EF 55-60%, [id number] mitral regurgitation. No signs of heart failure on examination. I will be updating echocardiogram as above. (3) HTN (hypertension): Code(s): I10 - Essential (primary) hypertension Category: Medical Plan: Blood pressure goal less than 130/80. At goal at present. No med changes made. (4) PVCs (premature ventricular contractions): Code(s): I49.3 - Ventricular premature depolarization Category: Medical Plan: Frequent PVCs noted on today's EKG. He denies any heart palpitations. Checking Holter monitor to assess frequency. Continue amiodarone and metoprolol. Plan Time spent on chart review, documentation, interview and assessment Orders: Orders CA echo transthoracic complete Today I34.0 - Nonrheumatic mitral (valve) insufficiency, I48.20 - Chronic atrial fibrillation, unspecified ECG 3 day holter monitor Today I48.20 - Chronic atrial fibrillation, unspecified, I49.3 - Ventricular premature depolarization Coding Level of Care Code Est Pt Level 4 (99133) Complex EM visit Add On G2211 Diagnoses Chronic a-fib I48.20 Mitral regurgitation I34.0 HTN (hypertension) I10 PVCs (premature ventricular contractions) I49.3 CPT Codes EKG - CPT: 21673-[id number], Complete ([id number]) Time Spent (min) 28
== END 2025-07-14 08:55 | disposition home or self-care (01) ==
LOC: HO.HCS 08:13
PROVIDERS: PCP Internal Medicine; Visit Provider Nurse Practitioner Family
DX: I48.20 Chronic atrial fibrillation, unspecified (principal); I34.0 Nonrheumatic mitral (valve) insufficiency; I10 Essential (primary) hypertension; I49.3 Ventricular premature depolarization
CPT/HCPCS: 93010; 99214; G2211

== ENCOUNTER → 2025-07-14 08:13 | Outpatient (BNVA) | payer MEDICARE, BC, SELFPAY | PROVIDERS: PCP Internal Medicine; Visit Provider Nurse Practitioner Family | DX: I34.0 Nonrheumatic mitral (valve) insufficiency (principal); I49.3 Ventricular premature depolarization; I10 Essential (primary) hypertension; I48.20 Chronic atrial fibrillation, unspecified | CPT/HCPCS: 93005; 99212 ==

== ENCOUNTER 2025-07-20 13:20 | Outpatient (AMB) | payer MEDICARE, BC, SELFPAY ==
--- NOTE | 2025-07-20 13:37 | A.OFFPC_ITS ---
Vital Signs 07/20/25 14:04 Height 6 ft 2 in Weight 192 lb BMI 24.6 BP 128/52 L Blood Pressure Location Lt brachial Position Sitting Respiration 17 Pulse 92 Pulse Source Pulse Oximeter Temp 97.5 F Temp Source Temporal Artery Scan Pulse Oximetry (%) 98 Oxygen Delivery Method Room Air Intake Visit Reasons: Routine Teacher Of The Emotionally Disturbed Required: No Accompanied by: nurse Chelsea Allergies penicillin V Allergy (Intermediate, Verified 07/20/25 13:37) rash amoxicillin Allergy (Verified 07/20/25 13:37) Unknown Erythromycin Allergy (Intermediate, Uncoded 07/14/25 08:34) diarrhea Tobacco use date assessed: 03/23/25 Fall risk assessment: No Falls in past year Last assessed Fall Risk: 07/20/25 Dental Screening Dental Screen Date: 07/20/25 Did you have a dental visit in the last 12 months?: Yes Did you have a dental problem in the last 6 months where you did not have access to dental care?: Yes Was dental information given to patient?: Patient has dentist HPI HPI Comments History of Present Illness Details The patient is a 75-year-old male presenting with urinary issues and rash. Over the past year, the patient has been hospitalized four times due to recurrent urinary tract infections and sepsis, leading to an evaluation for bladder dysfunction. He is scheduled for urological testing to assess bladder function, as he experiences urinary incontinence, particularly during the day, requiring the use of absorbent pads which fill rapidly. He was previously on tamsulosin for benign prostatic hyperplasia but indicates a medication change, attributing its cessation due to a misunderstanding with the prescribing team. He resides in an assisted living facility, though he is able to perform most activities of daily living independently. He reports recent symptoms of a rash which have worsened since initial onset, presenting on his arms, back, chest, and the groin area. This symptom's presence has been concurrent with incontin ence, possibly exacerbated by prolonged moisture. Additionally, he experiences coughing potentially due to environmental allergies with no accompanying fever, chills, or phlegm. Medical History: - History of Atrial Fibrillation, manage d with medications including Eliquis and amiodarone - History of Hypertension, managed with metoprolol tartrate 25mg twice daily - Diagnosis of Type 2 Diabetes Mellitus, managed with Farxiga - History of elevated cholesterol levels , not on current cholesterol-lowering treatment despite high levels Medications: - Eliquis for Atrial Fibrillation - Amiodarone for Atrial Fibrillation - Metoprolol tartrate 25mg twice daily f or Hypertension - Finasteride 5mg for Benign Prostatic H yperplasia - Farxiga for Type 2 Diabetes Mellitus Diagnostic Results: - Labs: Elevated cholesterol levels with a total cholesterol over 200mg/dL and LDL over 110mg/dL - Tests: Previously low A1c level of 6.1 %, noted in April Social: - Resides in assisted living but is capa ble of performing most activities of daily living independently [facility] Medical History (Updated 07/20/25 @ 14:22 by Tye Miller MD) Urinary incontinence PAF (paroxysmal atrial fibrillation) History of Clostridioides difficile infection Bacteriuria Bladder outlet obstruction Psoriasis Sepsis Elevated cholesterol Anemia BPH (benign prostatic hyperplasia) Diabetes Vitamin D deficiency Neuropathy HTN (hypertension) Chronic a-fib Amputation of great toe Osteomyelitis PVD (peripheral vascular disease) Amputation of toe of left foot Pre-diabetes History of neuropathy Arrhythmia Osteomyelitis of second toe of left foot Ulcer of left second toe Amputated toe of right foot History of heart valve abnormality Surgical History History of amputation of toe Status post amputation of toe Hx of amputation Status post ORIF of fracture of ankle Family History Mother CAD (coronary artery disease) Social History Household Members: Family Household Members Other:: Bother Housing: House Are you a primary child care aide to a significant other at home: No Do you presently have visiting nurse or other home services: Yes (living Nurse) Alcohol intake: current Alcohol intake frequency: holidays/special occasions on ly Patient Tobacco Use Status: Never used Tobacco e-Cigarette/Vaping Use: Never Used Second Hand Smoke Exposure: No Advance Directives Date on File: 08/07/20 service: No Current occupational status: retired Cognitive needs: Yes (walker) Hearing needs: No Vision needs: Yes (reading glasses) Questionnaire Thrive Questionnaire Date Thrive assessed: 03/23/25 AUDIT C Alcohol Use Questionnaire (AUDIT-C) 1. How often do you have a drink containing alcohol?: Never 3. How often do you have six or more drinks on one occasion?: Never Total Score: 0 UTE-7 AMB Questionnaire UTE-7 Date UTE - 7 assessed: 03/23/25 Source: Developed by Drs. Albert Goldman, Cecy Kenyon, Ochoa Carbajal and colleagues, with an educational carmelo from [employer]. Review of Systems Const Details: - Genitourinary: Reports urinary incontinence; denies nighttime incontinence recently - Dermatological: Reports rash on arms, back, chest, and groin area - Respiratory: Reports cough; denies fever or productive sputum All systems reviewed & are unremarkable except as reviewed in HPI and above Physical exam (Primary Care) Vital Signs: Last Vital Signs Temp 97.5 F 07/20/25 14:04 Pulse 92 07/20/25 14:04 Resp 17 07/20/25 14:04 BP 128/52 L 07/20/25 14:04 Pulse Ox 98 07/20/25 14:04 Oxygen Delivery Method Room Air 07/20/25 14:04 BMI result Body Mass Index 24.6 Tobacco/Smoking Status: Tobacco use Status Tobacco use date assessed 03/23/25 07/20/25 13:38 Patient Tobacco Use Status Never used Tobacco 07/20/25 13:38 e-Cigarette/Vaping Use Never Used 07/20/25 13:38 Thrive Assessment: Date of Thrive Assessment Date Thrive assessed 03/23/25 07/20/25 13:38 Const Other: General: Alert and oriented, Well nourished, No acute distress. Eye: Pupils are equal, round and reactive to light, Intact accommodation, Extraocular movements are intact, Normal conjunctiva, Vision unchanged. HENT: Normocephalic, Atraumatic, Tympanic membranes are clear, Normal hearing, Oral mucosa is moist, No pharyngeal erythema, Ear canals patent. Respiratory: Lungs CTA bilaterally, No wheeze, Respirations are non-labored. Cardiovascular: Regular rate, Regular rhythm, S1 auscultated, S2 auscultated, No murmur, Good pulses equal in all extremities, Normal peripheral perfusion, No edema. Gastrointestinal: Soft, Non-tender, Non-distended, Normal bowel sounds, No organomegaly. Musculoskeletal: Normal range of motion, Normal strength, No tenderness, No swelling, No deformity, Normal gait. Integumentary: Warm, Dry, [place], Intact, Rash present on arms, back, chest, and groin. Neurologic: Alert, Oriented, Normal sensory, Normal motor function, No focal defects, Cranial Nerves II-XII are grossly intact, Normal deep tendon reflexes. Psychiatric: Cooperative, Appropriate mood & affect, Normal judgment. Coding Level of Care Code Est Pt Level 4 (39640) Complex EM visit Add On G2211 Diagnoses Hypertension, unspecified type I10 Hypertension type: unspecified Chronic a-fib I48.20 Benign prostatic hyperplasia with lower urinary tract symptoms, symptom details unspecified N40.1 Lower urinary tract symptom detail: unspecified Lower urinary tract symptom presence: symptoms present Type 2 diabetes mellitus without complication, without long-term current use of insulin E11.9 Diabetes mellitus type: type 2 Diabetes mellitus termination clerk insulin use: without retirement use Diabetes mellitus complication status: without complication Urinary incontinence, unspecified type R32 Urinary Incontinence type: unspecified incontinence Assessment & Plan Assessment & Plan (1) HTN (hypertension): Comment: - Continue metoprolol tartrate 25mg twice daily. - Regular blood pressure monitoring. Code(s): I10 - Essential (primary) hypertension Category: Medical Qualifiers: Hypertension type: unspecified Qualified Code(s): I10 - Essential (primary) hypertension (2) Chronic a-fib: Comment: - Continue with current medication regimen: Eliquis and amiodarone. - Monitor and adjust treatment as needed. Code(s): I48.20 - Chronic atrial fibrillation, unspecified Category: Medical (3) BPH (benign prostatic hyperplasia): Comment: - Continue finasteride 5mg daily - Previously on Tamsulosin but discontinued previously (Unclear reasons), will await urology evalution to determine if medication to be resumed Code(s): N40.0 - Benign prostatic hyperplasia without lower urinary tract symptoms Category: Medical Qualifiers: Lower urinary tract symptom detail: unspecified Lower urinary tract symptom presence: symptoms present Qualified Code(s): N40.1 - Benign prostatic hyperplasia with lower urinary tract symptoms (4) Diabetes: Comment: - Continue Farxiga and monitor HbA1c every 3 months. (Ordered today) Code(s): E11.9 - Type 2 diabetes mellitus without complications Category: Medical Qualifiers: Diabetes mellitus type: type 2 Diabetes mellitus termination clerk insulin use: without termination clerk use Diabetes mellitus complication status: without complication Qualified Code(s): E11.9 - Type 2 diabetes mellitus without complications (5) Urinary incontinence: Comment: - Continue use of absorbent pads, advise on regular changing to prevent skin irritation. - Scheduled urodynamic testing to evaluate bladder function. - Following with Urology tomorrow Code(s): R32 - Unspecified urinary incontinence Category: Medical Qualifiers: Urinary Incontinence type: unspecified incontinence Qualified Code(s): R32 - Unspecified urinary incontinence Plan: Health Maintenance: - Recommend initiating cholesterol-lowering medication given elevated lipid levels. - Regular monitoring of A1c levels and blood pressure. Patient was informed and verbally consented to the use of an ambient scribe for clinic note documentation during this visit. Plan During the visit, we extensively reviewed the patient's issues with bladder and urinary incontinence, related to his benign prostatic hyperplasia and discussed upcoming urodynamic studies for a thorough evaluation. We considered his recent skin rash, possibly exacerbated by incontinence, and encouraged diligent pad changes to mitigate severe irritation. I discussed the importance of cholesterol management given his elevated levels. An approach involving potential medicative management is recommended. We addressed his atrial fibrillation management, affirming the continued necessity of Eliquis and amiodarone. I also advised regular blood pressure and A1c checks, congruent with his hypertension and diabetes management respectively, emphasizing the necessity for a holistic control of these chronic conditions. Anticipatory guidance regarding environmental measures was provided for his cough, highlighting symptom monitoring and infection prevention. Orders: Orders Hemoglobin A1c Today E11.9 - Type 2 diabetes mellitus without complications SARS-CoV2/FLU/RSV Today R09.89 - Other specified symptoms and signs involving the circulatory and respiratory systems Medications: New atorvastatin (Lipitor) 20 mg PO BEDTIME 90 tabs 3RF Patient Instructions: - Change absorbent pads regularly and dry affected areas thoroughly to prevent skin irritation. - Monitor for any resurgence of urinary symptoms or infections. - Continue medication regimen for atrial fibrillation, hypertension, and diabetes. - Obtain scheduled blood work and recommended screening for cholesterol and kidney function. - Attend urology appointment for further bladder function evaluation. - Report any new or worsening symptoms immediately. - Consider lifestyle modifications to address high cholesterol. - Return for follow-up in three months, with possible phone visit.
[2025-07-20 14:04] VITALS: BP 128/52; PULSE 92; RESP 17; TEMP 36.4; O2SAT 98; BMI 24.6
--- OUTSIDE RECORDS SUMMARY | 2025-07-20 15:20 | XMS_ITS | Encounter Summary ---
Author Organization [facility] Address [address] [place] [address] Care Team Providers Care Lining Maker Name Role Phone Juan Carlos Luna PT Primary Care Provider [phone] Encounter Details Date Type Department Care Team (Latest Contact Info) Description 10/21/2024 Lab Requisition [facility] - Main Lab [address] [facility] [place] [id number] Vanessa Winslow MD [address] [place] [id number] Metabolic encephalopathy Social History Tobacco Use Types [...] LAB CHEMISTRY METHOD 10/21/2024 11:16 AM EST [facility] Potassium 5.0 3.5 - 5.5 mmol/L LAB CHEMISTRY METHOD 10/21/2024 11:16 AM [facility] Chloride 108 96 - 110 mmol/L LAB CHEMISTRY METHOD 10/21/2024 11:16 AM [facility] CO2 26 21 - 32 mmol/L LAB CHEMISTRY METHOD 10/21/2024 11:16 AM [facility] Anion Gap 6 3 - 11 LAB CHEMISTRY METHOD 10/21/2024 11:16 AM [facility] Glucose 142(H) 70 - 100 mg/dL LAB CHEMISTRY METHOD 10/21/2024 11:16 AM [facility] BUN 41(H) 5 - 25 mg/dL LAB CHEMISTRY METHOD 10/21/2024 11:16 AM [facility] Creatinine 1.21 0.70 - 1.30 mg/dL LAB CHEMISTRY METHOD 10/21/2024 11:16 AM [facility] eGFR 63 >=60 mL/min/1. 73m2 LAB CHEMISTRY METHOD 10/21/2024 11:16 AM [facility] Comment:Calculation based on the Chronic Kidney Disease Epidemiology Collaboration (CKD-EPI) equation refit without adjustment for race. BUN/Creatinine Ratio 33.9 LAB CHEMISTRY METHOD 10/21/2024 11:16 AM [facility] Calcium 9.1 8.5 - 10.5 mg/dL LAB CHEMISTRY METHOD 10/21/2024 11:16 AM [facility] Blood Venous blood specimen / Unknown Venipuncture / Unknown 10/21/2024 6:03 AM EST 10/21/2024 10:16 AM EST us Vanessa Winslow MD LAB BLOOD ORDERABLES Final Res ult [facility] [address] [place] [address], [place] [phone] * (ABNORMAL) Complete blood count (10/21/2024 6:03 AM EST) Pathologist [facility] WBC 9.3 4.8 - 10.8 K/mcL LAB HEMETOLOGY METHOD 10/21/2024 10:58 AM [facility] RBC 3.30(L) 4.50 - 5.50 M/mcL LAB HEMETOLOGY METHOD 10/21/2024 10:58 AM [facility] Hemoglobin 9.3(L) 13.5 - 17.5 g/dL LAB HEMETOLOGY METHOD 10/21/2024 10:58 AM [facility] Hematocrit 31.0(L) 42.0 - 54.0 % LAB HEMETOLOGY METHOD 10/21/2024 10:58 AM [facility] MCV 93.7 79.0 - 98.0 FL LAB HEMETOLOGY METHOD 10/21/2024 10:58 AM [facility] MCH 28.1 27.0 - 32.0 pcg LAB HEMETOLOGY METHOD 10/21/2024 10:58 AM [facility] MCHC 30.0(L) 32.0 - 37.0 g/dL LAB HEMETOLOGY METHOD 10/21/2024 10:58 AM [facility] RDW 19.2(H) 11.0 - 15.0 % LAB HEMETOLOGY METHOD 10/21/2024 10:58 AM [facility] Platelets 396 130 - 400 K/mcL LAB HEMETOLOGY METHOD 10/21/2024 10:58 AM [facility] MPV 9.8 7.0 - 11.0 FL LAB HEMETOLOGY METHOD 10/21/2024 10:58 AM [facility] NRBC 0.0 <1.0 % LAB HEMETOLOGY METHOD 10/21/2024 10:58 AM [facility] NRBC Absolute 0.00 <0.10 K/mcL LAB HEMETOLOGY METHOD 10/21/2024 10:58 AM [facility] Blood Venous blood specimen / Unknown Venipuncture / Unknown 10/21/2024 6:03 AM EST 10/21/2024 10:16 AM EST us Vanessa Winslow MD LAB BLOOD ORDERABLES Final Res ult [facility] [address] [place] [address], documented in this encounter Visit Diagnoses Diagnosis Metabolic encephalopathy documented in this encounter Care Teams Lining Maker Relationship Specialty Start Date End Date Juan Carlos Luna, PT PCP - General Internal Medicine 06/12/15 documented as of this encounter
--- OUTSIDE RECORDS SUMMARY | 2025-07-20 15:20 | XMS_ITS | Encounter Summary ---
Author Organization [facility] Address [address] [place] [address] Care Team Providers Care [employer]plands Division Director Name Role Phone Juan Carlos Luna PT Primary Care Provider [phone] Encounter Details Date Type Department Care Team (Latest Contact Info) Description 09/23/2024 Lab Requisition [facility] - Main Lab [address] [facility] [place] [address] Vanessa Winslow MD [address] [place] [id number] Type 2 diabetes mellitus without complications (CMS/HCC [...] Res ult [facility] [address] [place] [address], * Thyroxine free (09/23/2024 7:27 AM EST) Free T4 1.33 0.70 - 1.80 ng/dL LAB CHEMISTRY METHOD 09/23/2024 10:51 AM EST [facility] Blood Venous blood specimen / Unknown Venipuncture / Unknown 09/23/2024 7:27 AM EST 09/23/2024 9:33 AM EST Vanessa Winslow MD LAB BLOOD ORDERABLES Final Res ult Performing Organization Address City/[facility]/ZIP Co de Phone Number [facility] [address] [place] [address], [place] [phone] * Thyroid stimulating hormone (09/23/2024 7:27 AM EST) Pathologist [facility] TSH 3.43 0.40 - 4.00 mcIU/mL LAB CHEMISTRY METHOD 09/23/2024 10:51 AM EST [facility] Blood Venous blood specimen / Unknown Venipuncture / Unknown 09/23/2024 7:27 AM EST 09/23/2024 9:33 AM EST Vanessa Winslow MD LAB BLOOD ORDERABLES Final Res ult Performing Organization Address [facility]/ZIP Co de Phone Number [facility] [address] [place] [address], [place] [phone] * Hemoglobin A1c (09/23/2024 7:27 AM EST) [facility] Hemoglobin A1C 6.2 <6.5 % LAB CHEMISTRY METHOD 09/23/2024 11:40 AM EST [facility] Mean Bld Glu Estim. 131 mg/dL LAB CHEMISTRY METHOD 09/23/2024 11:40 AM EST [facility] Blood Venous blood specimen / Unknown Venipuncture / Unknown 09/23/2024 7:27 AM EST 09/23/2024 9:33 AM EST Vanessa Winslow MD LAB BLOOD ORDERABLES Final Res ult Performing Organization Address City/[facility]/ZIP Co de Phone Number [facility] [address] [place] [address], [place] [phone] * (ABNORMAL) Comprehensive metabolic panel (09/23/2024 7:27 AM EST) [facility] Signature Sodium 141 133 - 145 mmol/L LAB CHEMISTRY METHOD 09/23/2024 10:45 AM [facility] Potassium 4.3 3.5 - 5.5 mmol/L LAB CHEMISTRY METHOD 09/23/2024 10:45 AM [facility] Chloride 109 96 - 110 mmol/L LAB CHEMISTRY METHOD 09/23/2024 10:45 AM [facility] CO2 23 21 - 32 mmol/L LAB CHEMISTRY METHOD 09/23/2024 10:45 AM [facility] Anion Gap 9 3 - 11 LAB CHEMISTRY METHOD 09/23/2024 10:45 AM [facility] Glucose 88 70 - 100 mg/dL LAB CHEMISTRY METHOD 09/23/2024 10:45 AM [facility] BUN 18 5 - 25 mg/dL LAB CHEMISTRY METHOD 09/23/2024 10:45 AM [facility] Creatinine 1.23 0.70 - 1.30 mg/dL LAB CHEMISTRY METHOD 09/23/2024 10:45 AM [facility] eGFR 62 >=60 mL/min/1. 73m2 LAB CHEMISTRY METHOD 09/23/2024 10:45 AM [facility] Comment:Calculation based on the Chronic Kidney Disease Epidemiology Collaboration (CKD-EPI) equation refit without adjustment for race. BUN/Creatinine Ratio 14.6 LAB CHEMISTRY METHOD 09/23/2024 10:45 AM [facility] Calcium 8.5 8.5 - 10.5 mg/dL LAB CHEMISTRY METHOD 09/23/2024 10:45 AM [facility] AST (SGOT) 23 10 - 42 unit/L LAB CHEMISTRY METHOD 09/23/2024 10:45 AM [facility] ALT (SGPT) 22 10 - 60 unit/L LAB CHEMISTRY METHOD 09/23/2024 10:45 AM [facility] Alkaline Phosphatase 119 42 - 121 unit/L LAB CHEMISTRY METHOD 09/23/2024 10:45 AM [facility] Total Protein 5.5(L) 6.0 - 8.0 g/dL LAB CHEMISTRY METHOD 09/23/2024 10:45 AM [facility] Albumin 2.1(L) 3.2 - 5.0 g/dL LAB CHEMISTRY METHOD 09/23/2024 10:45 AM [facility] Total Bilirubin 0.6 0.0 - 1.4 mg/dL LAB CHEMISTRY METHOD 09/23/2024 10:45 AM [facility] Blood Venous blood specimen / Unknown Venipuncture / Unknown 09/23/2024 7:27 AM EST 09/23/2024 9:33 AM EST us Vanessa Winslow MD LAB BLOOD ORDERABLES Final Res ult [facility] [address] [place] [address], [place] [phone] * (ABNORMAL) Complete blood count (09/23/2024 7:27 AM EST) WBC 5.4 4.8 - 10.8 K/mcL LAB HEMETOLOGY METHOD 09/23/2024 10:24 AM [facility] RBC 3.30(L) 4.50 - 5.50 M/mcL LAB HEMETOLOGY METHOD 09/23/2024 10:24 AM [facility] Hemoglobin 8.8(L) 13.5 - 17.5 g/dL LAB HEMETOLOGY METHOD 09/23/2024 10:24 AM [facility] Hematocrit 29.3(L) 42.0 - 54.0 % LAB HEMETOLOGY METHOD 09/23/2024 10:24 AM [facility] MCV 89.1 79.0 - 98.0 FL LAB HEMETOLOGY METHOD 09/23/2024 10:24 AM EST [facility] MCH 26.7(L) 27.0 - 32.0 pcg LAB HEMETOLOGY METHOD 09/23/2024 10:24 AM [facility] MCHC 30.0(L) 32.0 - 37.0 g/dL LAB HEMETOLOGY METHOD 09/23/2024 10:24 AM [facility] RDW 16.4(H) 11.0 - 15.0 % LAB HEMETOLOGY METHOD 09/23/2024 10:24 AM EST [facility] Platelets 231 130 - 400 K/mcL LAB HEMETOLOGY METHOD 09/23/2024 10:24 AM [facility] MPV 9.8 7.0 - 11.0 FL LAB HEMETOLOGY METHOD 09/23/2024 10:24 AM EST [facility] NRBC 0.0 <1.0 % LAB HEMETOLOGY METHOD 09/23/2024 10:24 AM [facility] NRBC Absolute 0.00 <0.10 K/mcL LAB HEMETOLOGY METHOD 09/23/2024 10:24 AM [facility] Blood Venous blood specimen / Unknown Venipuncture / Unknown 09/23/2024 7:27 AM EST 09/23/2024 9:33 AM EST us Vanessa Winslow MD LAB BLOOD ORDERABLES Final Res ult [facility] [address] [place] [address], documented in this encounter Visit Diagnoses Diagnosis Type 2 diabetes mellitus without complications (CMS/HCC V24, CMS/HCC V28) Essential (primary) hypertension Unspecified essential hypertension Unspecified atrial fibrillation (CMS/HCC V24, CMS/HCC V28) documented in this encounter Care Teams [employer] Division Director Relationship Specialty Start Date End Date Juan Carlos Luna, PT PCP - General Internal Medicine 06/12/15 documented as of this encounter
--- OUTSIDE RECORDS SUMMARY | 2025-07-20 15:20 | XMS_ITS | Encounter Summary ---
Author Organization [facility] Address [address] [place] [address] Care Team Providers Care Headstart Teacher Name Role Phone Juan Carlos Luna PT Primary Care Provider [phone] Encounter Details Date Type Department Care Team (Late st Contact Info) Description 10/21/2024 Lab Requisition [facility] - Main Lab 299 [facility] [place] [address] Vanessa Winslow MD [address] [place] [address] Urinary tract infection, site not specified Social [...] reflex microscopic (10/20/2024 8:00 PM EST) Specific [place] Urine 1.022 1.003 - 1.030 LAB URINALYSIS - AUTOMATED METHOD 10/21/2024 11:30 AM [facility] pH, Urine 7.0 5.0 - 8.0 pH LAB URINALYSIS - AUTOMATED METHOD 10/21/2024 11:30 AM [facility] Leukocytes, Urine Moderate(A) Negative LAB URINALYSIS - AUTOMATED METHOD 10/21/2024 11:30 AM [facility] Nitrite, Urine Negative Negative LAB URINALYSIS - AUTOMATED METHOD 10/21/2024 11:30 AM [facility] Protein, Urine 100(A) <=Trace mg/dL LAB URINALYSIS - AUTOMATED METHOD 10/21/2024 11:30 AM [facility] Glucose, Urine >=1000(A) Negative mg/dL LAB URINALYSIS - AUTOMATED METHOD 10/21/2024 11:30 AM [facility] Ketones, Urine Negative Negative mg/dL LAB URINALYSIS - AUTOMATED METHOD 10/21/2024 11:30 AM [facility] Urobilinogen , Urine 0.2 0.2 - 1.0 mg/dL LAB URINALYSIS - AUTOMATED METHOD 10/21/2024 11:30 AM [facility] Bilirubin, Urine Negative Negative LAB URINALYSIS - AUTOMATED METHOD 10/21/2024 11:30 AM [facility] Blood, Urine Small(A) Negative LAB URINALYSIS - AUTOMATED METHOD 10/21/2024 11:30 AM [facility] RBC, Urine 8.6(H) 0 - 4 /HPF LAB URINALYSIS - AUTOMATED METHOD 10/21/2024 11:30 AM [facility] WBC, Urine 293.5(H) 0 - 4 /HPF LAB URINALYSIS - AUTOMATED METHOD 10/21/2024 11:30 AM [facility] Squamous Epithelial, Urine 3 0 - 60 /LPF LAB URINALYSIS - AUTOMATED METHOD 10/21/2024 11:30 AM [facility] Bacteria, Urine Negative Negative /HPF LAB URINALYSIS - AUTOMATED METHOD 10/21/2024 11:30 AM [facility] Hyaline Casts, Urine 0.0 0 - 3 /LPF LAB URINALYSIS - AUTOMATED METHOD 10/21/2024 11:30 AM [facility] Urine Urine specimen obtained by clean catch procedure / Unknown Non-blood Collection / Unknown 10/20/2024 8:00 PM EST 10/21/2024 9:44 AM EST Vanessa Winslow MD LAB URINE ORDERABLES Final Res ult Performing Organization Address [facility]/ZIP Co de Phone Number [facility] [address] [place] [address], [place] [phone] * Baird urine culture tube (10/20/2024 8:00 PM EST) Extra Tube Hold for add-ons. 10/21/2024 11:01 AM [facility] Comment:Auto resulted. Urine Urine specimen obtained by clean catch procedure / Unknown Non-blood Collection / Unknown 10/20/2024 8:00 PM EST 10/21/2024 9:44 AM EST us Vanessa Winslow MD LAB URINE ORDERABLES Final Res ult Performing Organization Address City/[facility]/ZIP Co de Phone Number [facility] [address] [place] [address], [place] [phone] documented in this encounter Visit Diagnoses Diagnosis Urinary tract infection, site not specified documented in this encounter Care Teams Headstart Teacher Relationship Specialty Start Date End Date Juan Carlos Luna, PT PCP - General Internal Medicine 06/12/15 documented as of this encounter
--- OUTSIDE RECORDS SUMMARY | 2025-07-20 15:20 | XMS_ITS | Encounter Summary ---
Author Organization [facility] Address [address] [place] [address] Care Team Providers Care Mattress Finisher Name Role Phone Juan Carlos Luna PT Primary Care Provider Encounter Details Date Type Department Care Team (Late st Contact Info) Description 09/26/2024 Lab Requisition [facility] - Main Lab 299 [facility] [place] [address] Vanessa Winslow MD [address] [place] [address] Magnesium deficiency; Hyperkalemia; Sepsis, unspecified organism (CMS/HCC [...] mmol/L LAB CHEMISTRY METHOD 09/26/2024 12:10 PM [facility] Potassium 5.5 3.5 - 5.5 mmol/L LAB CHEMISTRY METHOD 09/26/2024 12:10 PM [facility] Chloride 110 96 - 110 mmol/L LAB CHEMISTRY METHOD 09/26/2024 12:10 PM [facility] CO2 23 21 - 32 mmol/L LAB CHEMISTRY METHOD 09/26/2024 12:10 PM [facility] Anion Gap 9 3 - 11 LAB CHEMISTRY METHOD 09/26/2024 12:10 PM [facility] Glucose 102(H) 70 - 100 mg/dL LAB CHEMISTRY METHOD 09/26/2024 12:10 PM [facility] BUN 18 5 - 25 mg/dL LAB CHEMISTRY METHOD 09/26/2024 12:10 PM [facility] Creatinine 1.31(H) 0.70 - 1.30 mg/dL LAB CHEMISTRY METHOD 09/26/2024 12:10 PM [facility] eGFR 57(L) >=60 mL/min/1. 73m2 LAB CHEMISTRY METHOD 09/26/2024 12:10 PM [facility] Comment:Calculation based on the Chronic Kidney Disease Epidemiology Collaboration (CKD-EPI) equation refit without adjustment for race. BUN/Creatinine Ratio 13.7 LAB CHEMISTRY METHOD 09/26/2024 12:10 PM [facility] Calcium 8.7 8.5 - 10.5 mg/dL LAB CHEMISTRY METHOD 09/26/2024 12:10 PM [facility] Blood Venous blood specimen / Unknown Venipuncture / Unknown 09/26/2024 4:48 AM EST 09/26/2024 10:23 AM EST us Vanessa Winslow MD LAB BLOOD ORDERABLES Final Res ult [facility] [address] [place] [address], * (ABNORMAL) Complete blood count (09/26/2024 4:48 AM EST) WBC 6.1 4.8 - 10.8 K/mcL LAB HEMETOLOGY METHOD 09/26/2024 10:59 AM EST [facility] RBC 3.30(L) 4.50 - 5.50 M/[facility] LAB HEMETOLOGY METHOD 09/26/2024 10:59 AM [facility] Hemoglobin 9.0(L) 13.5 - 17.5 g/dL LAB HEMETOLOGY METHOD 09/26/2024 10:59 AM [facility] Hematocrit 29.8(L) 42.0 - 54.0 % LAB HEMETOLOGY METHOD 09/26/2024 10:59 AM EST [facility] MCV 89.5 79.0 - 98.0 FL LAB HEMETOLOGY METHOD 09/26/2024 10:59 AM [facility] MCH 27.0 27.0 - 32.0 pcg LAB HEMETOLOGY METHOD 09/26/2024 10:59 AM [facility] MCHC 30.2(L) 32.0 - 37.0 g/dL LAB HEMETOLOGY METHOD 09/26/2024 10:59 AM EST [facility] RDW 16.9(H) 11.0 - 15.0 % LAB HEMETOLOGY METHOD 09/26/2024 10:59 AM [facility] Platelets 291 130 - 400 K/mcL LAB HEMETOLOGY METHOD 09/26/2024 10:59 AM [facility] MPV 9.7 7.0 - 11.0 FL LAB HEMETOLOGY METHOD 09/26/2024 10:59 AM EST [facility] NRBC 0.0 <1.0 % LAB HEMETOLOGY METHOD 09/26/2024 10:59 AM EST [facility] NRBC Absolute 0.00 <0.10 K/mcL LAB HEMETOLOGY METHOD 09/26/2024 10:59 AM EST [facility] Blood Venous blood specimen / Unknown Venipuncture / Unknown 09/26/2024 4:48 AM EST 09/26/2024 10:23 AM EST Vanessa Winslow MD LAB BLOOD ORDERABLES Final Res ult [facility] [address] [place] [address], [place] [phone] * (ABNORMAL) Magnesium (09/26/2024 4:48 AM EST) Magnesium 1.8(L) 1.9 - 2.6 mg/dL LAB CHEMISTRY METHOD 09/26/2024 12:10 PM EST [facility] Blood Venous blood specimen / Unknown Venipuncture / Unknown 09/26/2024 4:48 AM EST 09/26/2024 10:23 AM EST Vanessa Winslow MD LAB BLOOD ORDERABLES Final Res ult [facility] [address] [place] [address], [place] [phone] documented in this encounter Visit Diagnoses Diagnosis Magnesium deficiency Disorders of magnesium metabolism Hyperkalemia Hyperpotassemia Sepsis, unspecified organism (CMS/HCC V24, CMS/HCC V28) documented in this encounter Care Teams Mattress Finisher Relationship Specialty Start Date End Date Juan Carlos Luna, PT PCP - General Internal Medicine 06/12/15 documented as of this encounter
--- OUTSIDE RECORDS SUMMARY | 2025-07-20 15:20 | XMS_ITS | Encounter Summary ---
Author Organization [facility] Address [address] [place] [address] Care Team Providers Care Spa Consultant Name Role Phone Juan Carlos Luna PT Primary Care Provider [phone] Encounter Details Date Type Department Care Team (Late st Contact Info) Description 10/19/[address] [facility] - Main Lab 299 [facility] [place] [address] Vanessa Winslow MD [address] [place] [address] Unspecified atrial fibrillation (CMS/HCC V24, CMS/HCC V28); [...] mmol/L LAB CHEMISTRY METHOD 10/19/2024 2:04 PM [facility] Potassium 4.7 3.5 - 5.5 mmol/L LAB CHEMISTRY METHOD 10/19/2024 2:04 PM [facility] Chloride 107 96 - 110 mmol/L LAB CHEMISTRY METHOD 10/19/2024 2:04 PM [facility] CO2 24 21 - 32 mmol/L LAB CHEMISTRY METHOD 10/19/2024 2:04 PM [facility] Anion Gap 8 3 - 11 LAB CHEMISTRY METHOD 10/19/2024 2:04 PM [facility] Glucose 179(H) 70 - 100 mg/dL LAB CHEMISTRY METHOD 10/19/2024 2:04 PM [facility] BUN 42(H) 5 - 25 mg/dL LAB CHEMISTRY METHOD 10/19/2024 2:04 PM [facility] Comment:Results verified by repeat testing Creatinine 1.40(H) 0.70 - 1.30 mg/dL LAB CHEMISTRY METHOD 10/19/2024 2:04 PM [facility] eGFR 53(L) >=60 mL/min/1. 73m2 LAB CHEMISTRY METHOD 10/19/2024 2:04 PM [facility] Comment:Calculation based on the Chronic Kidney Disease Epidemiology Collaboration (CKD-EPI) equation refit without adjustment for race. BUN/Creatinine Ratio 30.0 LAB CHEMISTRY METHOD 10/19/2024 2:04 PM [facility] Calcium 9.5 8.5 - 10.5 mg/dL LAB CHEMISTRY METHOD 10/19/2024 2:04 PM [facility] Blood Venous blood specimen / Unknown Venipuncture / Unknown 10/19/2024 10:30 AM EST 10/19/2024 11:49 AM EST us Vanessa Winslow MD LAB BLOOD ORDERABLES Final Res ult [facility] [address] [place] [address], * (ABNORMAL) Complete blood count (10/19/2024 10:30 AM EST) WBC 12.6(H) 4.8 - 10.8 K/mcL LAB HEMETOLOGY METHOD 10/19/2024 1:32 PM EST [facility] RBC 3.50(L) 4.50 - 5.50 M/mcL LAB HEMETOLOGY METHOD 10/19/2024 1:32 PM [facility] Hemoglobin 9.7(L) 13.5 - 17.5 g/dL LAB HEMETOLOGY METHOD 10/19/2024 1:32 PM [facility] Hematocrit 31.9(L) 42.0 - 54.0 % LAB HEMETOLOGY METHOD 10/19/2024 1:32 PM EST [facility] MCV 91.7 79.0 - 98.0 FL LAB HEMETOLOGY METHOD 10/19/2024 1:32 PM [facility] MCH 27.9 27.0 - 32.0 pcg LAB HEMETOLOGY METHOD 10/19/2024 1:32 PM [facility] MCHC 30.4(L) 32.0 - 37.0 g/dL LAB HEMETOLOGY METHOD 10/19/2024 1:32 PM [facility] RDW 19.3(H) 11.0 - 15.0 % LAB HEMETOLOGY METHOD 10/19/2024 1:32 PM [facility] Platelets 485(H) 130 - 400 K/mcL LAB HEMETOLOGY METHOD 10/19/2024 1:32 PM [facility] MPV 9.6 7.0 - 11.0 FL LAB HEMETOLOGY METHOD 10/19/2024 1:32 PM EST [facility] NRBC 0.0 <1.0 % LAB HEMETOLOGY METHOD 10/19/2024 1:32 PM EST [facility] NRBC Absolute 0.00 <0.10 K/mcL LAB HEMETOLOGY METHOD 10/19/2024 1:32 PM EST [facility] Blood Venous blood specimen / Unknown Venipuncture / Unknown 10/19/2024 10:30 AM EST 10/19/2024 11:49 AM EST us Vanessa Winslow MD LAB BLOOD ORDERABLES Final Res ult [facility] [address] [place] [address], documented in this encounter Visit Diagnoses Diagnosis Unspecified atrial fibrillation (CMS/HCC V24, CMS/HCC V28) Type 2 diabetes mellitus with diabetic chronic kidney disease (CMS/HCC V24, CMS/HCC V28) documented in this encounter Care Teams Spa Consultant Relationship Specialty Start Date End Date Juan Carlos Luna, PT PCP - General Internal Medicine 06/12/15 documented as of this encounter
--- OUTSIDE RECORDS SUMMARY | 2025-07-20 15:21 | XMS_ITS | Clinical Summary ---
Author Organization [address] Address [address] [place] [address] Phone Care Team Providers Care Glass Driller Name Role Phone LunaJuan Carlos Sujit PT Primary Care Provider [phone] Surgical History Surgery Date Site/Laterality Comments OTHER SURGICAL HISTORY PROCEDURE:Left fibular fracture;COMMENT:01/14 COLONOSCOPY 06/22/2003 PROCEDURE:COLONOSCOPY;COMMENT:Yesi Berger - Benign appearing polyp at 20 cm COLONOSCOPY 06/08/2009 PROCEDURE:COLONOSCOPY;COMMENT:Yesi Berger - Colonic diverticulosis INCISION AND DRAINAGE FOOT 09/18/2017 Right PROCEDURE:INCISION AND DRAINAGE FOOT;COMMENT:Procedure: I&D FOOT; Surgeon: Carline Price DPM; Location: [facility] MAIN OPERATING ROOM; Service: Podiatry; Laterality: Right; LAYERED WOUND CLOSURE 09/18/2017 Right PROCEDURE:LAYERED WOUND CLOSURE;COMMENT:Procedure: CLOSURE WOUND SECONDARY; Surgeon: Carline Price DPM; Location: [facility] MAIN OPERATING ROOM; Service: Podiatry; Laterality: Right; INCISION AND DRAINAGE FOOT 09/14/2017 Right PROCEDURE:INCISION AND DRAINAGE FOOT;COMMENT:Procedure: I&D FOOT WITH REMOVAL OF BONE; Surgeon: Carline Price DPM; Location: [facility] AMBULATORY SURGERY; Service: Podiatry; Laterality: Right; TOE AMPUTATION 09/10/2017 Right PROCEDURE:TOE AMPUTATION;COMMENT:Procedure: AMPUTATION TOE, I&D RIGHT FOOT WITH REMOVAL OF BONE; Surgeon: Carline Price DPM; Location: [facility] MAIN OPERATING ROOM; Service: Podiatry; [...] DX:History of mitral valve prolapse Diabetes mellitus ([facility] V 24, [facility] V28) DX:Diabetes mellitus ([facility]);COMMENT:A1c 6.07 September 2017 Osteomyelitis of toe of righ t foot ([facility] V24, [facility] V28) DX:Osteomyelitis of toe of right foot ([facility]);COMMENT:third toe Family History Medical [...] LAB CHEMISTRY METHOD 10/21/2024 11:16 AM EST [facility] Potassium 5.0 3.5 - 5.5 mmol/L LAB CHEMISTRY METHOD 10/21/2024 11:16 AM EST [facility] Chloride 108 96 - 110 mmol/L LAB CHEMISTRY METHOD 10/21/2024 11:16 AM EST [facility] CO2 26 21 - 32 mmol/L LAB CHEMISTRY METHOD 10/21/2024 11:[address] [facility] Anion Gap 6 3 - 11 LAB CHEMISTRY METHOD 10/21/2024 11:[address] [facility] Glucose 142(H) 70 - 100 mg/dL LAB CHEMISTRY METHOD 10/21/2024 11:[address] [facility] BUN 41(H) 5 - 25 mg/dL LAB CHEMISTRY METHOD 10/21/2024 11:[address] [facility] Creatinine 1.21 0.70 - 1.30 mg/dL LAB CHEMISTRY METHOD 10/21/2024 11:[address] [facility] eGFR 63 >=60 mL/min/1. 73m2 LAB CHEMISTRY METHOD 10/21/2024 11:[address] [facility] Comment:Calculation based on the Chronic Kidney Disease Epidemiology Collaboration (CKD-EPI) equation refit without adjustment for race. BUN/Creatinine Ratio 33.9 LAB CHEMISTRY METHOD 10/21/2024 11:[address] [facility] Calcium 9.1 8.5 - 10.5 mg/dL LAB CHEMISTRY METHOD 10/21/2024 11:[address] [facility] Blood Venous blood specimen / Unknown Venipuncture / Unknown 10/21/2024 6:03 AM EST 10/21/2024 10:16 AM EST us Vanessa Winslow MD LAB BLOOD ORDERABLES Final Res ult [facility] [address] [place] [address], * Hemoglobin A1c (09/23/2024 7:27 AM EST) Hemoglobin A1C 6.2 <6.5 % LAB CHEMISTRY METHOD 09/23/2024 11:40 AM EST [facility] Mean Bld Glu Estim. 131 mg/dL LAB CHEMISTRY METHOD 09/23/2024 11:40 AM EST [facility] Blood Venous blood specimen / Unknown Venipuncture / Unknown 09/23/2024 7:27 AM EST 09/23/2024 9:33 AM EST us Vanessa Winslow MD LAB BLOOD ORDERABLES Final Res ult [facility] ([facility] [address] [place] [address], [place] [phone] from Last 3 Months or Most Recently Relevant to Health Maintenance Insurance MEDICARE [facility] Care Teams Glass Driller Relationship Specialty Start Date End Date Juan Carlos Luna PT PCP - General Internal Medicine 06/12/15
--- OUTSIDE RECORDS SUMMARY | 2025-07-20 15:21 | XMS_ITS | Clinical Summary ---
Author Organization [facility] Address [address] [place] [address] Care Team Providers Care Engineering Technologist Name Role Phone Juan Carlos Luna MD [...] this topic Medical Devices Implanted Type Area Senior Principal Process Engineer Device Identifier Shelf Expiration Date Model / Serial / Lot Sponge Surgifoam 100 [id number] 12.5x8cm Hemostatic Agent - [id number] - [id number] Implanted:Qty: 1 on 09/14/2017 by Carline Price DPM at [facility] Hemostatic Agent [employer] 02/10/2021 [id number] / / [id number] Insurance Payer Benefit Plan / Group Subscriber ID Effective Dates Phone Address Type [facility] [id number] 2003-Pres ent [address] [place] [address] PPO MEDICARE MEDICARE A INPT ONLY [id number] 2016-Prese nt [address] [address] [place] [address] Medicare Advance Directives For more information, please contact: [phone] Latest Code Status on File Code Status [...] way: discussion with patient . Care Teams Engineering Technologist Relationship Specialty Start Date End Date Juan Carlos Luna MD PCP - General Internal Medicine 06/12/15
== END 2025-07-20 14:22 | disposition home or self-care (01) ==
LOC: HO.HMCHD 13:20
PROVIDERS: PCP Student in an Organized Health Care Education/Training Program; Visit Provider Student in an Organized Health Care Education/Training Program
DX: I10 Essential (primary) hypertension (principal); I48.20 Chronic atrial fibrillation, unspecified; N40.1 Benign prostatic hyperplasia with lower urinary tract symptoms; E11.9 Type 2 diabetes mellitus without complications; R32 Unspecified urinary incontinence

== ENCOUNTER → 2025-07-20 13:20 | Outpatient (BNVA) | payer MEDICARE, BC, SELFPAY | PROVIDERS: PCP Student in an Organized Health Care Education/Training Program; Visit Provider Student in an Organized Health Care Education/Training Program | DX: I10 Essential (primary) hypertension (principal); I48.20 Chronic atrial fibrillation, unspecified; N40.0 Benign prostatic hyperplasia without lower urinary tract symptoms; E11.9 Type 2 diabetes mellitus without complications; R32 Unspecified urinary incontinence; Z79.01 Long term (current) use of anticoagulants; Z79.84 Long term (current) use of oral hypoglycemic drugs; Z79.899 Other long term (current) drug therapy | CPT/HCPCS: 99212 ==

== ENCOUNTER 2025-07-21 10:01 | Outpatient (AMB) | payer MEDICARE, BC, SELFPAY ==
--- OUTSIDE RECORDS SUMMARY | 2025-07-21 10:35 | XMS_ITS | Encounter Summary ---
Author Organization [facility] Address [address] [place] [address] Care Team Providers Care Vegetable Washer Name Role Phone Juan Carlos Luna PT Primary Care Provider [phone] Encounter Details Date Type Department Care Team (Late st Contact Info) Description 10/21/2024 Lab Requisition [facility] - Main Lab 299 [facility] [place] [address] Vanessa Winslow MD [address] [place] [address] Urinary tract infection, site not specified Social [...] reflex microscopic (10/20/2024 8:00 PM EST) Specific [place] Urine 1.022 1.003 - 1.030 LAB URINALYSIS - AUTOMATED METHOD 10/21/2024 11:30 AM [facility] pH, Urine 7.0 5.0 - 8.0 pH LAB URINALYSIS - AUTOMATED METHOD 10/21/2024 11:30 AM [facility] Leukocytes, Urine Moderate(A) Negative LAB URINALYSIS - AUTOMATED METHOD 10/21/2024 11:30 AM [facility] Nitrite, Urine Negative Negative LAB URINALYSIS - AUTOMATED METHOD 10/21/2024 11:30 AM [facility] Protein, Urine 100(A) <=Trace mg/dL LAB URINALYSIS - AUTOMATED METHOD 10/21/2024 11:30 AM [facility] Glucose, Urine >=1000(A) Negative mg/dL LAB URINALYSIS - AUTOMATED METHOD 10/21/2024 11:30 AM [facility] Ketones, Urine Negative Negative mg/dL LAB URINALYSIS - AUTOMATED METHOD 10/21/2024 11:30 AM [facility] Urobilinogen , Urine 0.2 0.2 - 1.0 mg/dL LAB URINALYSIS - AUTOMATED METHOD 10/21/2024 11:30 AM [facility] Bilirubin, Urine Negative Negative LAB URINALYSIS - AUTOMATED METHOD 10/21/2024 11:30 AM [facility] Blood, Urine Small(A) Negative LAB URINALYSIS - AUTOMATED METHOD 10/21/2024 11:30 AM [facility] RBC, Urine 8.6(H) 0 - 4 /HPF LAB URINALYSIS - AUTOMATED METHOD 10/21/2024 11:30 AM [facility] WBC, Urine 293.5(H) 0 - 4 /HPF LAB URINALYSIS - AUTOMATED METHOD 10/21/2024 11:30 AM [facility] Squamous Epithelial, Urine 3 0 - 60 /LPF LAB URINALYSIS - AUTOMATED METHOD 10/21/2024 11:30 AM [facility] Bacteria, Urine Negative Negative /HPF LAB URINALYSIS - AUTOMATED METHOD 10/21/2024 11:30 AM [facility] Hyaline Casts, Urine 0.0 0 - 3 /LPF LAB URINALYSIS - AUTOMATED METHOD 10/21/2024 11:30 AM [facility] Urine Urine specimen obtained by clean catch procedure / Unknown Non-blood Collection / Unknown 10/20/2024 8:00 PM EST 10/21/2024 9:44 AM EST Vanessa Winslow MD LAB URINE ORDERABLES Final Res ult Performing Organization Address [facility]/ZIP Co de Phone Number [facility] [address] [place] [address], [place] [phone] * Baird urine culture tube (10/20/2024 8:00 PM EST) Extra Tube Hold for add-ons. 10/21/2024 11:01 AM [facility] Comment:Auto resulted. Urine Urine specimen obtained by clean catch procedure / Unknown Non-blood Collection / Unknown 10/20/2024 8:00 PM EST 10/21/2024 9:44 AM EST us Vanessa Winslow MD LAB URINE ORDERABLES Final Res ult Performing Organization Address City/[facility]/ZIP Co de Phone Number [facility] [address] [place] [address], [place] [phone] documented in this encounter Visit Diagnoses Diagnosis Urinary tract infection, site not specified documented in this encounter Care Teams Vegetable Washer Relationship Specialty Start Date End Date Juan Carlos Luna, PT PCP - General Internal Medicine 06/12/15 documented as of this encounter
--- OUTSIDE RECORDS SUMMARY | 2025-07-21 10:35 | XMS_ITS | Encounter Summary ---
Author Organization [facility] Address [address] [place] [address] Care Team Providers Care Grey Washer Name Role Phone Juan Carlos Luna PT Primary Care Provider [phone] Encounter Details Date Type Department Care Team (Late st Contact Info) Description 10/19/2024 Lab Requisition [facility] - Main Lab 299 [facility] [place] [address] Vanessa Winslow MD [address] [place] [address] Unspecified atrial fibrillation (CMS/HCC V24, CMS/HCC V28); [...] mmol/L LAB CHEMISTRY METHOD 10/19/2024 2:04 PM [facility] Potassium 4.7 3.5 - 5.5 mmol/L LAB CHEMISTRY METHOD 10/19/2024 2:04 PM [facility] Chloride 107 96 - 110 mmol/L LAB CHEMISTRY METHOD 10/19/2024 2:04 PM [facility] CO2 24 21 - 32 mmol/L LAB CHEMISTRY METHOD 10/19/2024 2:04 PM [facility] Anion Gap 8 3 - 11 LAB CHEMISTRY METHOD 10/19/2024 2:04 PM [facility] Glucose 179(H) 70 - 100 mg/dL LAB CHEMISTRY METHOD 10/19/2024 2:04 PM [facility] BUN 42(H) 5 - 25 mg/dL LAB CHEMISTRY METHOD 10/19/2024 2:04 PM [facility] Comment:Results verified by repeat testing Creatinine 1.40(H) 0.70 - 1.30 mg/dL LAB CHEMISTRY METHOD 10/19/2024 2:04 PM [facility] eGFR 53(L) >=60 mL/min/1. 73m2 LAB CHEMISTRY METHOD 10/19/2024 2:04 PM [facility] Comment:Calculation based on the Chronic Kidney Disease Epidemiology Collaboration (CKD-EPI) equation refit without adjustment for race. BUN/Creatinine Ratio 30.0 LAB CHEMISTRY METHOD 10/19/2024 2:04 PM [facility] Calcium 9.5 8.5 - 10.5 mg/dL LAB CHEMISTRY METHOD 10/19/2024 2:04 PM [facility] Blood Venous blood specimen / Unknown Venipuncture / Unknown 10/19/2024 10:30 AM EST 10/19/2024 11:49 AM EST us Vanessa Winslow MD LAB BLOOD ORDERABLES Final Res ult [facility] [address] [place] [address], * (ABNORMAL) Complete blood count (10/19/2024 10:30 AM EST) WBC 12.6(H) 4.8 - 10.8 K/mcL LAB HEMETOLOGY METHOD 10/19/2024 1:32 PM EST [facility] RBC 3.50(L) 4.50 - 5.50 M/mcL LAB HEMETOLOGY METHOD 10/19/2024 1:32 PM [facility] Hemoglobin 9.7(L) 13.5 - 17.5 g/dL LAB HEMETOLOGY METHOD 10/19/2024 1:32 PM [facility] Hematocrit 31.9(L) 42.0 - 54.0 % LAB HEMETOLOGY METHOD 10/19/2024 1:32 PM EST [facility] MCV 91.7 79.0 - 98.0 FL LAB HEMETOLOGY METHOD 10/19/2024 1:32 PM [facility] MCH 27.9 27.0 - 32.0 pcg LAB HEMETOLOGY METHOD 10/19/2024 1:32 PM [facility] MCHC 30.4(L) 32.0 - 37.0 g/dL LAB HEMETOLOGY METHOD 10/19/2024 1:32 PM [facility] RDW 19.3(H) 11.0 - 15.0 % LAB HEMETOLOGY METHOD 10/19/2024 1:32 PM [facility] Platelets 485(H) 130 - 400 K/mcL LAB HEMETOLOGY METHOD 10/19/2024 1:32 PM [facility] MPV 9.6 7.0 - 11.0 FL LAB HEMETOLOGY METHOD 10/19/2024 1:32 PM EST [facility] NRBC 0.0 <1.0 % LAB HEMETOLOGY METHOD 10/19/2024 1:32 PM EST [facility] NRBC Absolute 0.00 <0.10 K/mcL LAB HEMETOLOGY METHOD 10/19/2024 1:32 PM EST [facility] Blood Venous blood specimen / Unknown Venipuncture / Unknown 10/19/2024 10:30 AM EST 10/19/2024 11:49 AM EST us Vanessa Winslow MD LAB BLOOD ORDERABLES Final Res ult [facility] [address] [place] [address], documented in this encounter Visit Diagnoses Diagnosis Unspecified atrial fibrillation (CMS/HCC V24, CMS/HCC V28) 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
--- OUTSIDE RECORDS SUMMARY | 2025-07-21 10:35 | XMS_ITS | Encounter Summary ---
Author Organization [facility] Address [address] [place] [address] Care Team Providers Care Electrical Mechanical Technician Name Role Phone Juan Carlos Luna PT Primary Care Provider [phone] Encounter Details Date Type Department Care Team (Latest Contact Info) Description 10/21/2024 Lab Requisition [facility] - Main Lab 299 [facility] [employer] [phone] Vanessa Winslow MD [address] [place] [address] Metabolic encephalopathy Social History Tobacco Use Types [...] LAB CHEMISTRY METHOD 10/21/2024 11:16 AM EST [facility] Potassium 5.0 3.5 - 5.5 mmol/L LAB CHEMISTRY METHOD 10/21/2024 11:16 AM [facility] Chloride 108 96 - 110 mmol/L LAB CHEMISTRY METHOD 10/21/2024 11:16 AM [facility] CO2 26 21 - 32 mmol/L LAB CHEMISTRY METHOD 10/21/2024 11:16 AM [facility] Anion Gap 6 3 - 11 LAB CHEMISTRY METHOD 10/21/2024 11:16 AM [facility] Glucose 142(H) 70 - 100 mg/dL LAB CHEMISTRY METHOD 10/21/2024 11:16 AM [facility] BUN 41(H) 5 - 25 mg/dL LAB CHEMISTRY METHOD 10/21/2024 11:16 AM [facility] Creatinine 1.21 0.70 - 1.30 mg/dL LAB CHEMISTRY METHOD 10/21/2024 11:16 AM [facility] eGFR 63 >=60 mL/min/1. 73m2 LAB CHEMISTRY METHOD 10/21/2024 11:16 AM [facility] Comment:Calculation based on the Chronic Kidney Disease Epidemiology Collaboration (CKD-EPI) equation refit without adjustment for race. BUN/Creatinine Ratio 33.9 LAB CHEMISTRY METHOD 10/21/2024 11:16 AM [facility] Calcium 9.1 8.5 - 10.5 mg/dL LAB CHEMISTRY METHOD 10/21/2024 11:16 AM [facility] Blood Venous blood specimen / Unknown Venipuncture / Unknown 10/21/2024 6:03 AM EST 10/21/2024 10:16 AM EST us Vanessa Winslow MD LAB BLOOD ORDERABLES Final Res ult [facility] [address] [place] [address], [place] [phone] * (ABNORMAL) Complete blood count (10/21/2024 6:03 AM EST) Pathologist [facility] WBC 9.3 4.8 - 10.8 K/mcL LAB HEMETOLOGY METHOD 10/21/2024 10:58 AM [facility] RBC 3.30(L) 4.50 - 5.50 M/mcL LAB HEMETOLOGY METHOD 10/21/2024 10:58 AM [facility] Hemoglobin 9.3(L) 13.5 - 17.5 g/dL LAB HEMETOLOGY METHOD 10/21/2024 10:58 AM [facility] Hematocrit 31.0(L) 42.0 - 54.0 % LAB HEMETOLOGY METHOD 10/21/2024 10:58 AM [facility] MCV 93.7 79.0 - 98.0 FL LAB HEMETOLOGY METHOD 10/21/2024 10:58 AM [facility] MCH 28.1 27.0 - 32.0 pcg LAB HEMETOLOGY METHOD 10/21/2024 10:58 AM [facility] MCHC 30.0(L) 32.0 - 37.0 g/dL LAB HEMETOLOGY METHOD 10/21/2024 10:58 AM [facility] RDW 19.2(H) 11.0 - 15.0 % LAB HEMETOLOGY METHOD 10/21/2024 10:58 AM [facility] Platelets 396 130 - 400 K/mcL LAB HEMETOLOGY METHOD 10/21/2024 10:58 AM [facility] MPV 9.8 7.0 - 11.0 FL LAB HEMETOLOGY METHOD 10/21/2024 10:58 AM [facility] NRBC 0.0 <1.0 % LAB HEMETOLOGY METHOD 10/21/2024 10:58 AM [facility] NRBC Absolute 0.00 <0.10 K/mcL LAB HEMETOLOGY METHOD 10/21/2024 10:58 AM [facility] Blood Venous blood specimen / Unknown Venipuncture / Unknown 10/21/2024 6:03 AM EST 10/21/2024 10:16 AM EST us Vanessa Winslow MD LAB BLOOD ORDERABLES Final Res ult [facility] [address] [place] [address], documented in this encounter Visit Diagnoses Diagnosis Metabolic encephalopathy documented in this encounter Care Teams Electrical Mechanical Technician Relationship Specialty Start Date End Date Juan Carlos Luna, PT PCP - General Internal Medicine 06/12/15 documented as of this encounter
--- OUTSIDE RECORDS SUMMARY | 2025-07-21 10:36 | XMS_ITS | Encounter Summary ---
Author Organization [facility] Address [address] [place] [address] Care Team Providers Care Biometrics Experimentalist Name Role Phone Juan Carlos Luna PT Primary Care Provider [phone] Encounter Details Date Type Department Care Team (Late st Contact Info) Description 09/26/2024 Lab Requisition [facility] - Main Lab 299 [facility] [place] [address] Vanessa Winslow MD [address] [place] [address] Magnesium deficiency; Hyperkalemia; Sepsis, unspecified organism (CMS/HCC [...] [facility] Comment:Calculation based on the Chronic [...] Final Res ult [facility] [address] [place] [address], * (ABNORMAL) Complete blood count (09/26/2024 4:48 AM EST) WBC 6.1 4.8 - 10.8 K/mcL LAB HEMETOLOGY METHOD 09/26/2024 10:59 AM EST [facility] RBC 3.30(L) 4.50 - 5.50 M/[facility] LAB HEMETOLOGY METHOD 09/26/2024 10:59 AM [facility] Hemoglobin 9.0(L) 13.5 - 17.5 g/dL LAB HEMETOLOGY METHOD 09/26/2024 10:59 AM [facility] Hematocrit 29.8(L) 42.0 - 54.0 % LAB HEMETOLOGY METHOD 09/26/2024 10:59 AM EST [facility] MCV 89.5 79.0 - 98.0 FL LAB HEMETOLOGY METHOD 09/26/2024 10:59 AM [facility] MCH 27.0 27.0 - 32.0 pcg LAB HEMETOLOGY METHOD 09/26/2024 10:59 AM [facility] MCHC 30.2(L) 32.0 - 37.0 g/dL LAB HEMETOLOGY METHOD 09/26/2024 10:59 AM EST [facility] RDW 16.9(H) 11.0 - 15.0 % LAB HEMETOLOGY METHOD 09/26/2024 10:59 AM [facility] Platelets 291 130 - 400 K/mcL LAB HEMETOLOGY METHOD 09/26/2024 10:59 AM [facility] MPV 9.7 7.0 - 11.0 FL LAB HEMETOLOGY METHOD 09/26/2024 10:59 AM EST [facility] NRBC 0.0 <1.0 % LAB HEMETOLOGY METHOD 09/26/2024 10:59 AM EST [facility] NRBC Absolute 0.00 <0.10 K/mcL LAB HEMETOLOGY METHOD 09/26/2024 10:59 AM EST [facility] Blood Venous blood specimen / Unknown Venipuncture / Unknown 09/26/2024 4:48 AM EST 09/26/2024 10:23 AM EST Vanessa Winslow MD LAB BLOOD ORDERABLES Final Res ult [facility] [address] [place] [address], [place] [phone] * (ABNORMAL) Magnesium (09/26/2024 4:48 AM EST) Magnesium 1.8(L) 1.9 - 2.6 mg/dL LAB CHEMISTRY METHOD 09/26/2024 12:10 PM EST [facility] Blood Venous blood specimen / Unknown Venipuncture / Unknown 09/26/2024 4:48 AM EST 09/26/2024 10:23 AM EST Vanessa Winslow MD LAB BLOOD ORDERABLES Final Res ult [facility] [address] [place] [address], [place] [phone] documented in this encounter Visit Diagnoses Diagnosis Magnesium deficiency Disorders of magnesium metabolism Hyperkalemia Hyperpotassemia Sepsis, unspecified organism (CMS/HCC V24, CMS/HCC V28) documented in this encounter Care Teams Biometrics Experimentalist Relationship Specialty Start Date End Date Juan Carlos Luna, PT PCP - General Internal Medicine 06/12/15 documented as of this encounter
--- OUTSIDE RECORDS SUMMARY | 2025-07-21 10:36 | XMS_ITS | Clinical Summary ---
Author Organization [facility] Address [address] [place] [address] Care Team Providers Care Aircraft Magneto Mechanic Name Role Phone Juan Carlos Luna MD [...] this topic Medical Devices Implanted Type Area Scada Technician Device Identifier Shelf Expiration Date Model / Serial / Lot Sponge Surgifoam 100 [id number] 12.5x8cm Hemostatic Agent - [id number] - [id number] Implanted:Qty: 1 on 09/14/2017 by Carline Price DPM at [facility] Hemostatic Agent [employer] 02/10/2021 1974 / / [id number] Advance Directives For more information, please contact: [phone] Latest Code Status on File Code Status [...] way: discussion with patient . Care Teams Aircraft Magneto Mechanic Relationship Specialty Start Date End Date Juan Carlos Luna MD PCP - General Internal Medicine 06/12/15
--- OUTSIDE RECORDS SUMMARY | 2025-07-21 10:36 | XMS_ITS | Encounter Summary ---
Author Organization [facility] Address [address] [place] [address] Care Team Providers Care Packer And Carry Out Name Role Phone Juan Carlos Luna PT Primary Care Provider [phone] Encounter Details Date Type Department Care Team (Latest Contact Info) Description 09/23/2024 Lab Requisition [facility] - Main Lab 299 [facility] [place] [address] Vanessa Winslow MD [address] [place] [address] Type 2 diabetes mellitus without complications (CMS/HCC [...] LAB CHEMISTRY METHOD 09/23/2024 10:44 AM EST [facility] Blood Venous blood specimen / Unknown Venipuncture / Unknown 09/23/2024 7:27 AM EST 09/23/2024 9:33 AM EST us Vanessa Winslow MD LAB BLOOD ORDERABLES Final Res ult [facility] [address] [place] [address], * Thyroxine free (09/23/2024 7:27 AM EST) Free T4 1.33 0.70 - 1.80 ng/dL LAB CHEMISTRY METHOD 09/23/2024 10:51 AM EST [facility] Blood Venous blood specimen / Unknown Venipuncture / Unknown 09/23/2024 7:27 AM EST 09/23/2024 9:33 AM EST Vanessa Winslow MD LAB BLOOD ORDERABLES Final Res ult Performing Organization Address City/[facility]/ZIP Co de Phone Number [facility] [address] [place] [address], [place] [phone] * Thyroid stimulating hormone (09/23/2024 7:27 AM EST) Pathologist [facility] TSH 3.43 0.40 - 4.00 mcIU/mL LAB CHEMISTRY METHOD 09/23/2024 10:51 AM EST [facility] Blood Venous blood specimen / Unknown Venipuncture / Unknown 09/23/2024 7:27 AM EST 09/23/2024 9:33 AM EST Vanessa Winslow MD LAB BLOOD ORDERABLES Final Res ult Performing Organization Address [facility]/ZIP Co de Phone Number [facility] [address] [place] [address], [place] [phone] * Hemoglobin A1c (09/23/2024 7:27 AM EST) [facility] Hemoglobin A1C 6.2 <6.5 % LAB CHEMISTRY METHOD 09/23/2024 11:40 AM EST [facility] Mean Bld Glu Estim. 131 mg/dL LAB CHEMISTRY METHOD 09/23/2024 11:40 AM EST [facility] Blood Venous blood specimen / Unknown Venipuncture / Unknown 09/23/2024 7:27 AM EST 09/23/2024 9:33 AM EST Vanessa Winslow MD LAB BLOOD ORDERABLES Final Res ult Performing Organization Address City/[facility]/ZIP Co de Phone Number [facility] [address] [place] [address], [place] [phone] * (ABNORMAL) Comprehensive metabolic panel (09/23/2024 7:27 AM EST) [facility] Signature Sodium 141 133 - 145 mmol/L LAB CHEMISTRY METHOD 09/23/2024 10:45 AM [facility] Potassium 4.3 3.5 - 5.5 mmol/L LAB CHEMISTRY METHOD 09/23/2024 10:45 AM [facility] Chloride 109 96 - 110 mmol/L LAB CHEMISTRY METHOD 09/23/2024 10:45 AM [facility] CO2 23 21 - 32 mmol/L LAB CHEMISTRY METHOD 09/23/2024 10:45 AM [facility] Anion Gap 9 3 - 11 LAB CHEMISTRY METHOD 09/23/2024 10:45 AM [facility] Glucose 88 70 - 100 mg/dL LAB CHEMISTRY METHOD 09/23/2024 10:45 AM [facility] BUN 18 5 - 25 mg/dL LAB CHEMISTRY METHOD 09/23/2024 10:45 AM [facility] Creatinine 1.23 0.70 - 1.30 mg/dL LAB CHEMISTRY METHOD 09/23/2024 10:45 AM [facility] eGFR 62 >=60 mL/min/1. 73m2 LAB CHEMISTRY METHOD 09/23/2024 10:45 AM [facility] Comment:Calculation based on the Chronic Kidney Disease Epidemiology Collaboration (CKD-EPI) equation refit without adjustment for race. BUN/Creatinine Ratio 14.6 LAB CHEMISTRY METHOD 09/23/2024 10:45 AM [facility] Calcium 8.5 8.5 - 10.5 mg/dL LAB CHEMISTRY METHOD 09/23/2024 10:45 AM [facility] AST (SGOT) 23 10 - 42 unit/L LAB CHEMISTRY METHOD 09/23/2024 10:45 AM [facility] ALT (SGPT) 22 10 - 60 unit/L LAB CHEMISTRY METHOD 09/23/2024 10:45 AM [facility] Alkaline Phosphatase 119 42 - 121 unit/L LAB CHEMISTRY METHOD 09/23/2024 10:45 AM [facility] Total Protein 5.5(L) 6.0 - 8.0 g/dL LAB CHEMISTRY METHOD 09/23/2024 10:45 AM [facility] Albumin 2.1(L) 3.2 - 5.0 g/dL LAB CHEMISTRY METHOD 09/23/2024 10:45 AM [facility] Total Bilirubin 0.6 0.0 - 1.4 mg/dL LAB CHEMISTRY METHOD 09/23/2024 10:45 AM [facility] Blood Venous blood specimen / Unknown Venipuncture / Unknown 09/23/2024 7:27 AM EST 09/23/2024 9:33 AM EST us Vanessa Winslow MD LAB BLOOD ORDERABLES Final Res ult [facility] [address] [place] [address], [place] [phone] * (ABNORMAL) Complete blood count (09/23/2024 7:27 AM EST) WBC 5.4 4.8 - 10.8 K/mcL LAB HEMETOLOGY METHOD 09/23/2024 10:24 AM [facility] RBC 3.30(L) 4.50 - 5.50 M/mcL LAB HEMETOLOGY METHOD 09/23/2024 10:24 AM [facility] Hemoglobin 8.8(L) 13.5 - 17.5 g/dL LAB HEMETOLOGY METHOD 09/23/2024 10:24 AM [facility] Hematocrit 29.3(L) 42.0 - 54.0 % LAB HEMETOLOGY METHOD 09/23/2024 10:24 AM [facility] MCV 89.1 79.0 - 98.0 FL LAB HEMETOLOGY METHOD 09/23/2024 10:24 AM EST [facility] MCH 26.7(L) 27.0 - 32.0 pcg LAB HEMETOLOGY METHOD 09/23/2024 10:24 AM [facility] MCHC 30.0(L) 32.0 - 37.0 g/dL LAB HEMETOLOGY METHOD 09/23/2024 10:24 AM [facility] RDW 16.4(H) 11.0 - 15.0 % LAB HEMETOLOGY METHOD 09/23/2024 10:24 AM EST [facility] Platelets 231 130 - 400 K/mcL LAB HEMETOLOGY METHOD 09/23/2024 10:24 AM [facility] MPV 9.8 7.0 - 11.0 FL LAB HEMETOLOGY METHOD 09/23/2024 10:24 AM EST [facility] NRBC 0.0 <1.0 % LAB HEMETOLOGY METHOD 09/23/2024 10:24 AM [facility] NRBC Absolute 0.00 <0.10 K/mcL LAB HEMETOLOGY METHOD 09/23/2024 10:24 AM [facility] Blood Venous blood specimen / Unknown Venipuncture / Unknown 09/23/2024 7:27 AM EST 09/23/2024 9:33 AM EST us Vanessa Winslow MD LAB BLOOD ORDERABLES Final Res ult [facility] [address] [place] [address], documented in this encounter Visit Diagnoses Diagnosis Type 2 diabetes mellitus without complications (CMS/HCC V24, CMS/HCC V28) Essential (primary) hypertension Unspecified essential hypertension Unspecified atrial fibrillation (CMS/HCC V24, CMS/HCC V28) documented in this encounter Care Teams Packer And Carry Out Relationship Specialty Start Date End Date Juan Carlos Luna, PT PCP - General Internal Medicine 06/12/15 documented as of this encounter
--- OUTSIDE RECORDS SUMMARY | 2025-07-21 10:36 | XMS_ITS | Clinical Summary ---
Author Organization [address] Address [address] [place] [address] Phone Care Team Providers Care Lead Clinical Research Coordinator Name Role Phone CherylJuan Carlos Sujit PT Primary Care Provider [phone] Surgical History Surgery Date Site/Laterality Comments OTHER SURGICAL HISTORY PROCEDURE:Left fibular fracture;COMMENT:01/14 COLONOSCOPY 06/22/2003 PROCEDURE:COLONOSCOPY;COMMENT:Yesi Berger - Benign appearing polyp at 20 cm COLONOSCOPY 06/08/2009 PROCEDURE:COLONOSCOPY;COMMENT:Yesi Berger - Colonic diverticulosis INCISION AND DRAINAGE FOOT 09/18/2017 Right PROCEDURE:INCISION AND DRAINAGE FOOT;COMMENT:Procedure: I&D FOOT; Surgeon: Carline Price DPM; Location: [facility] MAIN [facility]PER[facility] ROOM; Service: Podiatry; Laterality: Right; LAYERED WOUND CLOSURE 09/18/2017 Right PROCEDURE:LAYERED WOUND CLOSURE;COMMENT:Procedure: CLOSURE WOUND SECONDARY; Surgeon: Carline Price DPM; Location: [facility]IN [facility]PER[facility] RO[facility]; Service: Podiatry; Laterality: Right; INCISION AND DRAINAGE FOOT 09/14/2017 Right PROCEDURE:INCISION AND DRAINAGE FOOT;COMMENT:Procedure: I&D FOOT WITH REMOVAL OF BONE; Surgeon: Carline Price DPM; Location: [facility]ERY; Service: Podiatry; Laterality: Right; TOE AMPUTATION 09/10/2017 Right PROCEDURE:TOE AMPUTATION;COMMENT:Procedure: AMPUTATION TOE, I&D RIGHT FOOT WITH REMOVAL OF BONE; Surgeon: Carline Price DPM; Location: [facility] MAIN OPERATING RO[facility]; Service: Podiatry; Laterality: Right; [...] valve prolapse Diabetes mellitus ([facility] V 24, [facility] V28) DX:Diabetes mellitus ([facility]);COMMENT:A1c 6.07 September 2017 Osteomyelitis of toe of righ t foot ([facility] V24, [facility] V28) DX:Osteomyelitis of toe of right foot ([facility]);COMMENT:third toe Family History Medical History Relation [...] LAB CHEMISTRY METHOD 10/21/2024 11:16 AM EST [facility] Potassium 5.0 3.5 - 5.5 mmol/L LAB CHEMISTRY METHOD 10/21/2024 11:16 AM EST [facility] Chloride 108 96 - 110 mmol/L LAB CHEMISTRY METHOD 10/21/2024 11:16 AM EST [facility] CO2 26 21 - 32 mmol/L LAB CHEMISTRY METHOD 10/21/2024 11:16 AM [facility] Anion Gap 6 3 - 11 LAB CHEMISTRY METHOD 10/21/2024 11:16 AM [facility] Glucose 142(H) 70 - 100 mg/dL LAB CHEMISTRY METHOD 10/21/2024 11:16 AM [facility] BUN 41(H) 5 - 25 mg/dL LAB CHEMISTRY METHOD 10/21/2024 11:16 AM [facility] Creatinine 1.21 0.70 - 1.30 mg/dL LAB CHEMISTRY METHOD 10/21/2024 11:16 AM [facility] eGFR 63 >=60 mL/min/1. 73m2 LAB CHEMISTRY METHOD 10/21/2024 11:16 AM [facility] Comment:Calculation based on the Chronic Kidney Disease Epidemiology Collaboration (CKD-EPI) equation refit without adjustment for race. BUN/Creatinine Ratio 33.9 LAB CHEMISTRY METHOD 10/21/2024 11:16 AM [facility] Calcium 9.1 8.5 - 10.5 mg/dL LAB CHEMISTRY METHOD 10/21/2024 11:16 AM [facility] Blood Venous blood specimen / Unknown Venipuncture / Unknown 10/21/2024 6:03 AM EST 10/21/2024 10:16 AM EST us Vanessa Winslow MD LAB BLOOD ORDERABLES Final Res ult [facility] [address] [place] [address], * Hemoglobin A1c (09/23/2024 7:27 AM EST) Hemoglobin A1C 6.2 <6.5 % LAB CHEMISTRY METHOD 09/23/2024 11:40 AM EST [facility] Mean Bld Glu Estim. 131 mg/dL LAB CHEMISTRY METHOD 09/23/2024 11:40 AM EST [facility] Blood Venous blood specimen / Unknown Venipuncture / Unknown 09/23/2024 7:27 AM EST 09/23/2024 9:33 AM EST us Vanessa Winslow MD LAB BLOOD ORDERABLES Final Res ult [facility] [address] [place] [address], [place] [phone] from Last 3 Months or Most Recently Relevant to Health Maintenance Insurance MEDICARE [facility] Care Teams Lead Clinical Research Coordinator Relationship Specialty Start Date End Date Juan Carlos Luna PT PCP - General Internal Medicine 06/12/15
--- NOTE | 2025-07-21 10:38 | A.OFFVIS_ITS ---
Intake Visit Reasons: UroD Intake Note: Urine cloudy, will hold on UDS, urine for culture Allergies penicillin V Allergy (Intermediate, Verified 07/20/25 13:37) rash amoxicillin Allergy (Verified 07/20/25 13:37) Unknown Erythromycin Allergy (Intermediate, Uncoded 07/14/25 08:34) diarrhea Medication List - Last Reconciled 07/21/25 by Kerri Wilks MD acetaminophen 500 mg PO BID amiodarone 200 mg PO DAILY apixaban (Eliquis) 5 mg PO BID atorvastatin (Lipitor) 20 mg PO BEDTIME betamethasone, augmented 0.05 % (Diprolene (augmented)) 1 appl topical BID PRN bethanechol chloride 25 mg PO BID 90 days bisacodyl 10 mg NM DAILY PRN clotrimazole-betamethasone 1-0.05 % 1 appl topical BID 4 weeks dapagliflozin propanediol (Farxiga) 10 mg PO DAILY diclofenac sodium 3% 1 appl topical BID doxycycline hyclate 100 mg PO BID 7 days finasteride 5 mg PO BEDTIME folic acid 1 mg PO DAILY lancets As directed magnesium oxide 400 mg PO DAILY metoprolol tartrate 25 mg PO BID potassium chloride ER 8 mEq PO BID tamsulosin 0.4 mg PO BEDTIME thiamine HCl (vitamin B1) 100 mg PO DAILY HPI Comments Details: 07/21/25-- History of Present Illness The patient is a 75-year-old male presenting with voiding dysfunction. The patient has a history of cloudy urine and incomplete bladder emptying, which has been persistent despite previous antibiotic treatment. The condition is likely due to neurogenic bladder associated with diabetic neuropathy, leading to urine retention and sediment formation. Previous interventions included antibiotic therapy, which did not resolve the issue, and the patient has experienced recurrent urinary sediment due to incomplete bladder emptying. Discussed use of catheters for self- catheterization. The patient reports wearing male incontinence underwear and occasionally experiences urine leakage at night, resulting in odor upon waking. Plan 1. Voiding Dysfunction - Initiate clean intermittent catheterization twice daily to ensure complete bladder emptying. - Urine culture to be performed to assess for infection. - Prescribe antibiotics over the weekend to address potential urinary tract infection. 2. Neurogenic Bladder Due To Diabetic Neuropathy - Follow-up with nurse for catheterization teaching and management. [facility] Medical History Urinary incontinence PAF (paroxysmal atrial fibrillation) History of Clostridioides difficile infection Bacteriuria Bladder outlet obstruction Psoriasis Sepsis Elevated cholesterol Anemia BPH (benign prostatic hyperplasia) Diabetes Vitamin D deficiency Neuropathy HTN (hypertension) Chronic a-fib Amputation of great toe Osteomyelitis PVD (peripheral vascular disease) Amputation of toe of left foot Pre-diabetes History of neuropathy Arrhythmia Osteomyelitis of second toe of left foot Ulcer of left second toe Amputated toe of right foot History of heart valve abnormality Surgical History History of amputation of toe Status post amputation of toe Hx of amputation Status post ORIF of fracture of ankle Family History Mother CAD (coronary artery disease) Social History Household Members: Family Household Members Other:: Bother Housing: House Are you a primary health care / medical job titles to a significant other at home: No Do you presently have visiting nurse or other home services: Yes (living Nurse) Alcohol intake: current Alcohol intake frequency: holidays/special occasions only Patient Tobacco Use Status: Never used Tobacco e-Cigarette/Vaping Use: Never Used Second Hand Smoke Exposure: No Advance Directives Date on File: 08/07/20 service: No Current occupational status: retired Cognitive needs: Yes (walker) Hearing needs: No Vision needs: Yes (reading glasses) Review of Systems Const All systems reviewed & are unremarkable except as noted in HPI and below Reports no additional complaints Eyes Reports no additional complaints ENT Reports no additional complaints Card Reports no additional complaints Resp Reports no additional complaints GI Reports no additional complaints Reports as per HPI Musc Reports no additional complaints Skin/Breast Reports system reviewed and no additional complaints, except as documented Neuro Reports no additional complaints Psych Reports no additional complaints Endo Reports no additional complaints Nimesh/Lymph Reports no additional complaints Aller/Immun Reports no additional complaints Office Procedures Bladder/Catheter Procedure Details: Patient was bladder scanned for 324mls, 14fr straight catheter inserted, patient tolerated insertion well. Dr. Pastrana will send urine for testing as patient showing UTI on UA. Emptied 375mls from bladder via catheter. Dr. Pastrana in room to discuss with patient. 53207-Bbjqql Bladder Catheter Procedure code (CPT) selection complete Post Void Residual Post Residual Void Post Void Residual (PVR): 324 [id number]-[id number] Void Residual by ultrasound Urodynamic Studies Consent Discussed risk and benefit or proposed procedure with the patient. Information consent for procedure given to the patient. Discussed technical aspects, risks, benefits and alternatives in full. Addressed all of the patient's questions and concerns regarding the procedure. The patient demonstrated knowledge and understanding. They wish to proceed with this procedure. Preparation The patient was prepped in the usual manner. A development writer was present and in the room. Genitalia was prepped with betadine solution in a sterile manner. Prep: The patient was prepped in the usual manner. A development writer was present and in the room. Genitalia was prepped with betadine solution in a sterile manner. Max flow rate: 3.2ml/s Average flow rate: 1.1ml/s Voided volume: 11ml PVR: 324 Voiding time: 20 seconds Flow time: 4.5 seconds Flow index max : 0.3 Flow index av.1 [id number]-Jvlqjrbmygcb Procedure code (CPT) selection complete Results AMB Urinalysis, Automated UA Leukoctes 500 Jamey/uL Last Edit by Parker Mccauley LPN on 07/21/25 10:44 UA Nitrite Negative Last Edit by Parker Mccauley LPN on 07/21/25 10:44 UA Urobilinogen 3.5 mg/dL Last Edit by Parker Mccauley LPN on 07/21/25 10:44 UA Protein 0.3 mg/dL Last Edit by Parker Mccauley LPN on 07/21/25 10:44 UA pH 6.0 Last Edit by Parker Mccauley LPN on 07/21/25 10:44 UA Blood 200 Trevon/uL Last Edit by Parker Mccauley LPN on 07/21/25 10:44 UA Specific Calvert 1.015 Last Edit by Parker Mccauley LPN on 07/21/25 10:44 UA Ketone Negative Last Edit by Parker Mccauley LPN on 07/21/25 10:44 UA Bilirubin 0 mg/dL Last Edit by Parker Mccauley LPN on 07/21/25 10:44 UA Glucose 0 mg/dL Last Edit by Parker Mccauley LPN on 07/21/25 10:44 Results Reviewed Results Reviewed: Laboratory Last Values Urine pH (Auto) 6.0 07/21/25 10:39 Specific Calvert (Auto) 1.015 07/21/25 10:39 Urine Protein (Auto) 0.3 mg/dL 07/21/25 10:39 Glucose (UA)(Auto) 0 mg/dL 07/21/25 10:39 Urine Ketones (Auto) Negative 07/21/25 10:39 Urine Blood (Auto) 200 Trevon/uL 07/21/25 10:39 Urine Nitrite (Auto) Negative 07/21/25 10:39 Urine Bilirubin (Auto) 0 mg/dL 07/21/25 10:39 Urine Urobilinogen (Auto) 3.5 mg/dL 07/21/25 10:39 Leukocyte Esterase (Auto) 500 Jamey/uL 07/21/25 10:39 Assessment & Plan Assessment & Plan (1) Voiding dysfunction: Code(s): N39.8 - Other specified disorders of urinary system Category: Medical (2) Urinary retention: Code(s): R33.9 - Retention of urine, unspecified Category: Medical (3) Pyuria: Code(s): R82.81 - Pyuria Category: Medical Plan Plan 1. Voiding Dysfunction - Initiate clean intermittent catheterization twice daily to ensure complete bladder emptying. - Urine culture to be performed to assess for infection. - Prescribe antibiotics over the weekend to address potential urinary tract infection. 2. Neurogenic Bladder Due To Diabetic Neuropathy - Follow-up with nurse for catheterization teaching and management. - reschedule UDS Orders: Orders Urine Culture 07/21/25 N39.0 - Urinary tract infection, site not specified, R32 - Unspecified urinary incontinence, R33.9 - Retention of urine, unspecified AMB Bladder/Catheter Procedure 07/21/25 N39.0 - Urinary tract infection, site not specified, R32 - Unspecified urinary incontinence, R33.9 - Retention of urine, unspecified AMB Post Void Residual by ultrasound 07/21/25 N39.0 - Urinary tract infection, site not specified, R32 - Unspecified urinary incontinence, R33.9 - Retention of urine, unspecified AMB Urinalysis Automated 07/21/25 N39.0 - Urinary tract infection, site not specified, R32 - Unspecified urinary incontinence, R33.9 - Retention of urine, unspecified AMB Urodynamics Studies 09/19/25 R32 - Unspecified urinary incontinence, R33.9 - Retention of urine, unspecified Medications: New doxycycline hyclate 100 mg PO BID 14 tabs 0RF 7 days Patient Instructions: The patient had an opportunity to ask questions regarding treatment plan. The patient expressed understanding and agreement with the above treatment plan. The patient is aware they should contact our office by phone for worsening of their current condition or the appearance of new symptoms. Compliance is encouraged with any medications and followup testing that is ordered. It is a privilege to be allowed the opportunity to participate in the urologic care of your patient. If you have any questions or concerns regarding treatment for the above conditions please do not hesitate to contact me. The office telephone contact is [phone]. This note is constructed in part using voice recognition software. While every effort has been made to ensure accuracy scene and lighting design lecturer errors may have been included. Yours sincerely, Kerri Wilks MD Scribe Plan - Not visible on output: Patient was informed and verbally consented to the use of an ambient scribe for clinic note documentation during this visit. Coding Level of Care Code Est Pt Level 4 (05110) Complex EM visit Add On G2211 Diagnoses Voiding dysfunction N39.8 Urinary retention R33.9 Pyuria R82.81 CPT Codes Bladder/Catheter Procedure - CPT: 34245-Ojkoev Bladder Catheter ([id number]) Post Residual Void - PVR CPT Code: 54207-Gsgb Void Residual by ultrasound ([id number]) Urodynamic Studies - CPT: 88854-Iqjtzig-Ztijbptndrlp ([id number])
== END 2025-07-21 10:59 | disposition home or self-care (01) ==
LOC: HO.HUSH 10:01
PROVIDERS: PCP Internal Medicine; Visit Provider Urology
DX: N39.8 Other specified disorders of urinary system (principal); R33.9 Retention of urine, unspecified; R82.81 Pyuria
CPT/HCPCS: 51741; 99214; G2211

== ENCOUNTER 2025-07-21 10:01 | Outpatient (REF) | payer MEDICARE, BC, SELFPAY ==
[2025-07-21 12:23] LABS: Resp Syncy Virus RNA Qual PCR NEGATIVE (Negative); SARS COV2 PCR INHOUSE NEGATIVE (Negative)
[2025-07-21 12:32] LABS: Hemoglobin A1C 138.7329 umol/L; Total Hemoglobin (HGBA1C) 3184.7019 umol/L
== END 2025-07-21 10:02 | disposition home or self-care (01) ==
LOC: HO.LAB 10:01
PROVIDERS: Absent Provider Student in an Organized Health Care Education/Training Program; PCP Student in an Organized Health Care Education/Training Program; Visit Provider Urology
DX: E11.21 Type 2 diabetes mellitus with diabetic nephropathy (principal); N39.8 Other specified disorders of urinary system; R09.89 Other specified symptoms and signs involving the circulatory and respiratory systems; R32 Unspecified urinary incontinence; R33.9 Retention of urine, unspecified
CPT/HCPCS: 51741; 51798; 81003; 83036; 87086; 87088; 87147; 87186; 87637; 99212

== ENCOUNTER 2025-08-04 11:14 | Outpatient (AMB) | payer MEDICARE, BC, SELFPAY ==
--- NOTE | 2025-08-04 11:14 | MHC.OFFVIS ---
Intake Visit Reasons: F/U Procedure discussion? Intake Note: patient presents today for: follow up procedure discussion urology medications: finasteride, tamsulosin, vitb1, potassium blood thinners: eliquis today's PVR: 487mls Vault Worker Required: No Accompanied by: Health Care Proxy Allergies penicillin V Allergy (Intermediate, Verified 08/04/25 11:15) rash amoxicillin Allergy (Verified 08/04/25 11:15) Unknown Erythromycin Allergy (Intermediate, Uncoded 08/04/25 11:15) diarrhea HPI Comments Details: Shashank is a pleasant male. He is a patient of Dr. Medrano. 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 Continued high PVR Urodynamic assessment indicate need for clean intermittent catheterization Limited hand mobility Would move to suprapubic tube Urinary retention Episode of retention in hospital December 2021 Had been started on Flomax Initial high residuals over 400 cc Has frequent small voids suspicious for overflow incontinence Not interested in the catheter Does not have hand mobility to perform clean intermittent catheterization Current therapy bethanechol [facility] Medical History Urinary incontinence PAF (paroxysmal atrial fibrillation) History of Clostridioides difficile infection Bacteriuria Bladder outlet obstruction Psoriasis Sepsis Elevated cholesterol Anemia BPH (benign prostatic hyperplasia) Diabetes Vitamin D deficiency Neuropathy HTN (hypertension) Chronic a-fib Amputation of great toe Osteomyelitis PVD (peripheral vascular disease) Amputation of toe of left foot Pre-diabetes History of neuropathy Arrhythmia Osteomyelitis of second toe of left foot Ulcer of left second toe Amputated toe of right foot History of heart valve abnormality Surgical History History of amputation of toe Status post amputation of toe Hx of amputation Status post ORIF of fracture of ankle Family History Mother CAD (coronary artery disease) Social History Household Members: Family Household Members Other:: Bother Housing: House Are you a primary care transitions manager to a significant other at home: No Do you presently have visiting nurse or other home services: Yes (living Nurse) Alcohol intake: current Alcohol intake frequency: holidays/special occasions only Patient Tobacco Use Status: Never used Tobacco e-Cigarette/Vaping Use: Never Used Second Hand Smoke Exposure: No Advance Directives Date on File: 08/07/20 service: No Current occupational status: retired Cognitive needs: Yes (walker) Hearing needs: No Vision needs: Yes (reading glasses) Review of Systems Const Denies chills and Denies fever(s) Card Reports no additional complaints and Denies syncope Resp Denies cough GI Denies abdominal pain and Denies heartburn Reports as per HPI and Denies change in libido Neuro Denies syncope Psych Denies change in libido Endo Denies change in libido Physical Exam Const General: cooperative, healthy appearing, comfortable and no acute distress Orientation/consciousness: patient oriented x3 HEENT Face and sinus: Yes normal facial exam Mouth: moist mucous membranes Neck Neck: Yes normal visual inspection, Yes full ROM and Yes trachea midline Chest Chest palpation & inspection: normal inspection of the chest Resp Effort & Inspection: normal respiratory effort, able to speak in complete sentences and no respiratory distress GI Inspection: Yes normal to inspection Back/Spine/Pelvis Cervical Spine: normal cervical lordosis Thoracic/Lumbar Spine: thoracic and lumbar spine normal to inspection Skin General skin exam: no rashes or lesions noted Neuro General: patient oriented x3, gait normal, tone normal and moves all extremities Extrem General: Yes normal to inspection and Yes capillary refill normal Assessment & Plan Assessment & Plan (1) Urinary retention with incomplete bladder emptying: Code(s): R33.9 - Retention of urine, unspecified Category: Medical Plan Risks, benefits and alternatives to therapy were discussed. These include but are not limited to infection, bleeding, damage to local organs and tissues, need for further interventions. Anesthetic risks regarding cardiac arrhythmia, blood clots, and potential mortality were discussed. The patient understands the typical recovery time and the outpatient nature of the procedure. After consideration of these risks the patient gives full informed consent and they wish to move ahead with the procedure. - cystoscopy suprapubic tube placement Patient Instructions: This note is constructed using voice recognition software. While every effort has been made to ensure accuracy polygraph examiner errors may have been included. Imaging studies, laboratory and physical exam results were discussed and reviewed in detail. No major barriers to patient understanding were identified. An opportunity to ask questions regarding the treatment plan was provided. All questions were answered. The patient expressed understanding and agreement with the above treatment plan. The patient is aware they should contact our office by phone for worsening of their current condition or the appearance of new urologic symptoms. Compliance is encouraged with any medications and followup testing that is ordered. It is a privilege to participate in the urologic care of your patient. If you have any questions or concerns regarding treatment for the above conditions, or other urologic issues, please do not hesitate to contact me. The office telephone contact is [phone]. Sincerely, Dr David Boateng MD, [facility] - Urology Compassionate Specialist Care for the Genitourinary System Coding Level of Care Code Est Pt Level 4 (79698) Diagnoses Urinary retention with incomplete bladder emptying R33.9
--- OUTSIDE RECORDS SUMMARY | 2025-08-04 12:27 | XMS_ITS | Encounter Summary ---
Author Organization [facility] Address [address] [place] [address] Care Team Providers Care Cook Dessert Name Role Phone Juan Carlos Luna PT Primary Care Provider [phone] Encounter Details Date Type Department Care Team (Latest Contact Info) Description 09/23/[address] [facility] - Main Lab [address] [facility] [place] [address] Vanessa Winslow MD [address] [place] [id number] Type 2 diabetes mellitus without complications (CMS/HCC [...] LAB CHEMISTRY METHOD 09/23/2024 10:44 AM EST [facility] Blood Venous blood specimen / Unknown Venipuncture / Unknown 09/23/2024 7:27 AM EST 09/23/2024 9:33 AM EST us Vanessa Winslow MD LAB BLOOD ORDERABLES Final Res ult [facility] [address] [place] [address], * Thyroxine free (09/23/2024 7:27 AM EST) Free T4 1.33 0.70 - 1.80 ng/dL LAB CHEMISTRY METHOD 09/23/2024 10:51 AM EST [facility] Blood Venous blood specimen / Unknown Venipuncture / Unknown 09/23/2024 7:27 AM EST 09/23/2024 9:33 AM EST Vanessa Winslow MD LAB BLOOD ORDERABLES Final Res ult Performing Organization Address City/[facility]/ZIP Co de Phone Number [facility] [address] [place] [address], [place] [phone] * Thyroid stimulating hormone (09/23/2024 7:27 AM EST) Pathologist [facility] TSH 3.43 0.40 - 4.00 mcIU/mL LAB CHEMISTRY METHOD 09/23/2024 10:51 AM EST [facility] Blood Venous blood specimen / Unknown Venipuncture / Unknown 09/23/2024 7:27 AM EST 09/23/2024 9:33 AM EST Vanessa Winslow MD LAB BLOOD ORDERABLES Final Res ult Performing Organization Address [facility]/ZIP Co de Phone Number [facility] [address] [place] [address], [place] [phone] * Hemoglobin A1c (09/23/2024 7:27 AM EST) [facility] Hemoglobin A1C 6.2 <6.5 % LAB CHEMISTRY METHOD 09/23/2024 11:40 AM EST [facility] Mean Bld Glu Estim. 131 mg/dL LAB CHEMISTRY METHOD 09/23/2024 11:40 AM EST [facility] Blood Venous blood specimen / Unknown Venipuncture / Unknown 09/23/2024 7:27 AM EST 09/23/2024 9:33 AM EST Vanessa Winslow MD LAB BLOOD ORDERABLES Final Res ult Performing Organization Address City/[facility]/ZIP Co de Phone Number [facility] [address] [place] [address], [place] [phone] * (ABNORMAL) Comprehensive metabolic panel (09/23/2024 7:27 AM EST) [facility] Signature Sodium 141 133 - 145 [...] MD LAB BLOOD ORDERABLES Final Res ult [facility] [address] [place] [address], [place] [phone] * (ABNORMAL) Complete blood count (09/23/2024 7:27 AM EST) WBC 5.4 4.8 - 10.8 K/mcL LAB HEMETOLOGY METHOD 09/23/2024 10:[address] [facility] RBC 3.30(L) 4.50 - 5.50 M/mcL LAB HEMETOLOGY METHOD 09/23/2024 10:[address] [facility] Hemoglobin 8.8(L) 13.5 - 17.5 g/dL LAB HEMETOLOGY METHOD 09/23/2024 10:[address] [facility] Hematocrit 29.3(L) 42.0 - 54.0 % LAB HEMETOLOGY METHOD 09/23/2024 10:[address] [facility] MCV 89.1 79.0 - 98.0 FL LAB HEMETOLOGY METHOD 09/23/2024 10:24 AM EST [facility] MCH 26.7(L) 27.0 - 32.0 pcg LAB HEMETOLOGY METHOD 09/23/2024 10:[address] [facility] MCHC 30.0(L) 32.0 - 37.0 g/dL LAB HEMETOLOGY METHOD 09/23/2024 10:[address] [facility] RDW 16.4(H) 11.0 - 15.0 % LAB HEMETOLOGY METHOD 09/23/2024 10:24 AM EST [facility] Platelets 231 130 - 400 K/mcL LAB HEMETOLOGY METHOD 09/23/2024 10:[address] [facility] MPV 9.8 7.0 - 11.0 FL LAB HEMETOLOGY METHOD 09/23/2024 10:24 AM EST [facility] NRBC 0.0 <1.0 % LAB HEMETOLOGY METHOD 09/23/2024 10:[address] [facility] NRBC Absolute 0.00 <0.10 K/mcL LAB HEMETOLOGY METHOD 09/23/2024 10:[address] [facility] Blood Venous blood specimen / Unknown Venipuncture / Unknown 09/23/2024 7:27 AM EST 09/23/2024 9:33 AM EST us Vanessa Winslow MD LAB BLOOD ORDERABLES Final Res ult [facility] [address] [place] [address], documented in this encounter Visit Diagnoses Diagnosis Type 2 diabetes mellitus without complications (CMS/HCC V24, CMS/HCC V28) Essential (primary) hypertension Unspecified essential hypertension Unspecified atrial fibrillation (CMS/HCC V24, CMS/HCC V28) documented in this encounter Care Teams Cook Dessert Relationship Specialty Start Date End Date Juan Carlos Luna, PT PCP - General Internal Medicine 06/12/15 documented as of this encounter
--- OUTSIDE RECORDS SUMMARY | 2025-08-04 12:27 | XMS_ITS | Encounter Summary ---
Author Organization [facility] Address [address] [place] [address] Care Team Providers Care Deputy Editor In Chief Name Role Phone Juan Carlos Luna PT Primary Care Provider [phone] Encounter Details Date Type Department Care Team (Latest Contact Info) Description 10/21/2024 Lab Requisition [facility] - Main Lab [address] [facility] [employer] [place] [id number] Vanessa Winslow MD [address] [place] [id number] Metabolic encephalopathy Social History Tobacco Use Types [...] [facility] Comment:Calculation based on the [...] ult [facility] [address] [place] [address], [place] [phone] * (ABNORMAL) Complete blood count (10/21/2024 6:03 AM EST) Pathologist [facility] WBC 9.3 4.8 - 10.8 K/mcL LAB [...] 10:58 AM [facility] Blood Venous blood specimen / Unknown Venipuncture / Unknown 10/21/2024 6:03 AM EST 10/21/2024 10:16 AM EST us Vanessa Winslow MD LAB BLOOD ORDERABLES Final Res ult [facility] [address] [place] [address], documented in this encounter Visit Diagnoses Diagnosis Metabolic encephalopathy documented in this encounter Care Teams Deputy Editor In Chief Relationship Specialty Start Date End Date Juan Carlos Luna, PT PCP - General Internal Medicine 06/12/15 documented as of this encounter
--- OUTSIDE RECORDS SUMMARY | 2025-08-04 12:27 | XMS_ITS | Clinical Summary ---
Author Organization [facility] Address [address] [place] [address] Care Team Providers Care Materials Mgmt Tech Name Role Phone Juan Carlos Luna MD [...] this topic Medical Devices Implanted Type Area Fireperson Device Identifier Shelf Expiration Date Model / Serial / Lot Sponge Surgifoam 100 [id number] 12.5x8cm Hemostatic Agent - [id number] - [id number] Implanted:Qty: 1 on 09/14/2017 by Carline Price DPM at [facility] Hemostatic Agent [employer] 02/10/2021 [id number] / / [id number] Insurance Payer Benefit Plan / Group Subscriber ID Effective Dates Phone Address Type [facility] [id number] 2003-Pres ent [address] [place] [address] PPO MEDICARE MEDICARE A INPT ONLY [id number] 2016-Prese nt [address] [address] [place] [address] Medicare Advance Directives For more information, please contact: [phone] Latest Code Status on File Code Status Date Activated Date Inactivated Comments Full Code 10/28/2017 12:29 AM 11/04/2017 11:33 PM Thi s code status was ascertained in the following way: per prison documentation. . Code Status History Code Status Date Activated Date Inactivated Comments Full Code 09/09/2017 8:34 PM 09/23/2017 3:01 AM This code status was ascertained in the following way: discussion with patient . Care Teams Materials Mgmt Tech Relationship Specialty Start Date End Date Juan Carlos Luna MD PCP - General Internal Medicine 06/12/15
--- OUTSIDE RECORDS SUMMARY | 2025-08-04 12:27 | XMS_ITS | Encounter Summary ---
Author Organization [facility] Address [address] [place] [address] Care Team Providers Care Planer Stone Name Role Phone Juan Carlos Luna PT Primary Care Provider Encounter Details Date Type Department Care Team (Late st Contact Info) Description 10/21/2024 Lab Requisition [facility] - Main Lab 299 [facility] [employer] [place] [address] Vanessa Winslow MD [address] [place] [id number] Urinary tract infection, site not specified Social [...] reflex microscopic (10/20/2024 8:00 PM EST) Specific [place] Urine 1.022 1.003 - 1.030 LAB URINALYSIS - AUTOMATED METHOD 10/21/2024 11:30 AM [facility] pH, Urine 7.0 5.0 - 8.0 pH LAB URINALYSIS - AUTOMATED METHOD 10/21/2024 11:30 AM [facility] Leukocytes, Urine Moderate(A) Negative LAB URINALYSIS - AUTOMATED METHOD 10/21/2024 11:30 AM [facility] Nitrite, Urine Negative Negative LAB URINALYSIS - AUTOMATED METHOD 10/21/2024 11:30 AM [facility] Protein, Urine 100(A) <=Trace mg/dL LAB URINALYSIS - AUTOMATED METHOD 10/21/2024 11:30 AM [facility] Glucose, Urine >=1000(A) Negative mg/dL LAB URINALYSIS - AUTOMATED METHOD 10/21/2024 11:30 AM [facility] Ketones, Urine Negative Negative mg/dL LAB URINALYSIS - AUTOMATED METHOD 10/21/2024 11:30 AM [facility] Urobilinogen , Urine 0.2 0.2 - 1.0 mg/dL LAB URINALYSIS - AUTOMATED METHOD 10/21/2024 11:30 AM [facility] Bilirubin, Urine Negative Negative LAB URINALYSIS - AUTOMATED METHOD 10/21/2024 11:30 AM [facility] Blood, Urine Small(A) Negative LAB URINALYSIS - AUTOMATED METHOD 10/21/2024 11:30 AM [facility] RBC, Urine 8.6(H) 0 - 4 /HPF LAB URINALYSIS - AUTOMATED METHOD 10/21/2024 11:30 AM [facility] WBC, Urine 293.5(H) 0 - 4 /HPF LAB URINALYSIS - AUTOMATED METHOD 10/21/2024 11:30 AM [facility] Squamous Epithelial, Urine 3 0 - 60 /LPF LAB URINALYSIS - AUTOMATED METHOD 10/21/2024 11:30 AM [facility] Bacteria, Urine Negative Negative /HPF LAB URINALYSIS - AUTOMATED METHOD 10/21/2024 11:30 AM [facility] Hyaline Casts, Urine 0.0 0 - 3 /LPF LAB URINALYSIS - AUTOMATED METHOD 10/21/2024 11:30 AM [facility] Urine Urine specimen obtained by clean catch procedure / Unknown Non-blood Collection / Unknown 10/20/2024 8:00 PM EST 10/21/2024 9:44 AM EST Vanessa Winslow MD LAB URINE ORDERABLES Final Res ult Performing Organization Address [facility]/ZIP Co de Phone Number [facility] [address] [place] [address], [place] [phone] * Baird urine culture tube (10/20/2024 8:00 PM EST) Extra Tube Hold for add-ons. 10/21/2024 11:01 AM [facility] Comment:Auto resulted. Urine Urine specimen obtained by clean catch procedure / Unknown Non-blood Collection / Unknown 10/20/2024 8:00 PM EST 10/21/2024 9:44 AM EST us Vanessa Winslow MD LAB URINE ORDERABLES Final Res ult Performing Organization Address City/[facility]/ZIP Co de Phone Number [facility] [address] [place] [address], [place] [phone] documented in this encounter Visit Diagnoses Diagnosis Urinary tract infection, site not specified documented in this encounter Care Teams Planer Stone Relationship Specialty Start Date End Date Juan Carlos Luna, PT PCP - General Internal Medicine 06/12/15 documented as of this encounter
--- OUTSIDE RECORDS SUMMARY | 2025-08-04 12:27 | XMS_ITS | Encounter Summary ---
Author Organization [facility] Address [address] [place] [address] Care Team Providers Care Relocation Services Specialist Name Role Phone Juan Carlos Luna PT Primary Care Provider [phone] Encounter Details Date Type Department Care Team (Late st Contact Info) Description 10/19/2024 Lab Requisition [facility] - Main Lab 299 [facility] [place] [address] Vanessa Winslow MD [address] [place] [id number] Unspecified atrial fibrillation (CMS/HCC V24, CMS/HCC V28); [...] mmol/L LAB CHEMISTRY METHOD 10/19/2024 2:04 PM [facility] Potassium 4.7 3.5 - 5.5 mmol/L LAB CHEMISTRY METHOD 10/19/2024 2:04 PM [facility] Chloride 107 96 - 110 mmol/L LAB CHEMISTRY METHOD 10/19/2024 2:04 PM [facility] CO2 24 21 - 32 mmol/L LAB CHEMISTRY METHOD 10/19/2024 2:04 PM [facility] Anion Gap 8 3 - 11 LAB CHEMISTRY METHOD 10/19/2024 2:04 PM [facility] Glucose 179(H) 70 - 100 mg/dL LAB CHEMISTRY METHOD 10/19/2024 2:04 PM [facility] BUN 42(H) 5 - 25 mg/dL LAB CHEMISTRY METHOD 10/19/2024 2:04 PM [facility] Comment:Results verified by repeat testing Creatinine 1.40(H) 0.70 - 1.30 mg/dL LAB CHEMISTRY METHOD 10/19/2024 2:04 PM [facility] eGFR 53(L) >=60 mL/min/1. 73m2 LAB CHEMISTRY METHOD 10/19/2024 2:04 PM [facility] Comment:Calculation based on the Chronic Kidney Disease Epidemiology Collaboration (CKD-EPI) equation refit without adjustment for race. BUN/Creatinine Ratio 30.0 LAB CHEMISTRY METHOD 10/19/2024 2:04 PM [facility] Calcium 9.5 8.5 - 10.5 mg/dL LAB CHEMISTRY METHOD 10/19/2024 2:04 PM [facility] Blood Venous blood specimen / Unknown Venipuncture / Unknown 10/19/2024 10:30 AM EST 10/19/2024 11:49 AM EST us Vanessa Winslow MD LAB BLOOD ORDERABLES Final Res ult [facility] [address] [place] [address], * (ABNORMAL) Complete blood count (10/19/2024 10:30 AM EST) WBC 12.6(H) 4.8 - 10.8 K/mcL LAB HEMETOLOGY METHOD 10/19/2024 1:32 PM EST [facility] RBC 3.50(L) 4.50 - 5.50 M/mcL LAB HEMETOLOGY METHOD 10/19/2024 1:32 PM [facility] Hemoglobin 9.7(L) 13.5 - 17.5 g/dL LAB HEMETOLOGY METHOD 10/19/2024 1:32 PM [facility] Hematocrit 31.9(L) 42.0 - 54.0 % LAB HEMETOLOGY METHOD 10/19/2024 1:32 PM EST [facility] MCV 91.7 79.0 - 98.0 FL LAB HEMETOLOGY METHOD 10/19/2024 1:32 PM [facility] MCH 27.9 27.0 - 32.0 pcg LAB HEMETOLOGY METHOD 10/19/2024 1:32 PM [facility] MCHC 30.4(L) 32.0 - 37.0 g/dL LAB HEMETOLOGY METHOD 10/19/2024 1:32 PM [facility] RDW 19.3(H) 11.0 - 15.0 % LAB HEMETOLOGY METHOD 10/19/2024 1:32 PM [facility] Platelets 485(H) 130 - 400 K/mcL LAB HEMETOLOGY METHOD 10/19/2024 1:32 PM [facility] MPV 9.6 7.0 - 11.0 FL LAB HEMETOLOGY METHOD 10/19/2024 1:32 PM EST [facility] NRBC 0.0 <1.0 % LAB HEMETOLOGY METHOD 10/19/2024 1:32 PM EST [facility] NRBC Absolute 0.00 <0.10 K/mcL LAB HEMETOLOGY METHOD 10/19/2024 1:32 PM EST [facility] Blood Venous blood specimen / Unknown Venipuncture / Unknown 10/19/2024 10:30 AM EST 10/19/2024 11:49 AM EST us Vanessa Winslow MD LAB BLOOD ORDERABLES Final Res ult [facility] [address] [place] [address], documented in this encounter Visit Diagnoses Diagnosis Unspecified atrial fibrillation (CMS/HCC V24, CMS/HCC V28) Type 2 diabetes mellitus with diabetic chronic kidney disease (CMS/HCC V24, CMS/HCC V28) documented in this encounter Care Teams Relocation Services Specialist Relationship Specialty Start Date End Date Juan Carlos Luna, PT PCP - General Internal Medicine 06/12/15 documented as of this encounter
--- OUTSIDE RECORDS SUMMARY | 2025-08-04 12:27 | XMS_ITS | Encounter Summary ---
Author Organization [facility] Address [address] [place] [address] Care Team Providers Care Gas Manager Name Role Phone Juan Carlos Luna PT Primary Care Provider [phone] Encounter Details Date Type Department Care Team (Late st Contact Info) Description 09/26/2024 Lab Requisition [facility] - Main Lab 299 [facility] [place] [address] Vanessa Winslow MD [address] [place] [phone] Magnesium deficiency; Hyperkalemia; Sepsis, unspecified organism (CMS/HCC [...] mmol/L LAB CHEMISTRY METHOD 09/26/2024 12:10 PM [facility] Potassium 5.5 3.5 - 5.5 mmol/L LAB CHEMISTRY METHOD 09/26/2024 12:10 PM [facility] Chloride 110 96 - 110 mmol/L LAB CHEMISTRY METHOD 09/26/2024 12:10 PM [facility] CO2 23 21 - 32 mmol/L LAB CHEMISTRY METHOD 09/26/2024 12:10 PM [facility] Anion Gap 9 3 - 11 LAB CHEMISTRY METHOD 09/26/2024 12:10 PM [facility] Glucose 102(H) 70 - 100 mg/dL LAB CHEMISTRY METHOD 09/26/2024 12:10 PM [facility] BUN 18 5 - 25 mg/dL LAB CHEMISTRY METHOD 09/26/2024 12:10 PM [facility] Creatinine 1.31(H) 0.70 - 1.30 mg/dL LAB CHEMISTRY METHOD 09/26/2024 12:10 PM [facility] eGFR 57(L) >=60 mL/min/1. 73m2 LAB CHEMISTRY METHOD 09/26/2024 12:10 PM [facility] Comment:Calculation based on the Chronic Kidney Disease Epidemiology Collaboration (CKD-EPI) equation refit without adjustment for race. BUN/Creatinine Ratio 13.7 LAB CHEMISTRY METHOD 09/26/2024 12:10 PM [facility] Calcium 8.7 8.5 - 10.5 mg/dL LAB CHEMISTRY METHOD 09/26/2024 12:10 PM [facility] Blood Venous blood specimen / Unknown Venipuncture / Unknown 09/26/2024 4:48 AM EST 09/26/2024 10:23 AM EST us Vanessa Winslow MD LAB BLOOD ORDERABLES Final Res ult [facility] [address] [place] [address], * (ABNORMAL) Complete blood count (09/26/2024 4:48 AM EST) WBC 6.1 4.8 - 10.8 K/mcL LAB HEMETOLOGY METHOD 09/26/2024 10:[address] [facility] RBC 3.30(L) 4.50 - 5.50 M/[facility] LAB HEMETOLOGY METHOD 09/26/2024 10:59 AM [facility] Hemoglobin 9.0(L) 13.5 - 17.5 g/dL LAB HEMETOLOGY METHOD 09/26/2024 10:59 AM [facility] Hematocrit 29.8(L) 42.0 - 54.0 % LAB HEMETOLOGY METHOD 09/26/2024 10:[address] [facility] MCV 89.5 79.0 - 98.0 FL LAB HEMETOLOGY METHOD 09/26/2024 10:59 AM [facility] MCH 27.0 27.0 - 32.0 pcg LAB HEMETOLOGY METHOD 09/26/2024 10:59 AM [facility] MCHC 30.2(L) 32.0 - 37.0 g/dL LAB HEMETOLOGY METHOD 09/26/2024 10:[address] [facility] RDW 16.9(H) 11.0 - 15.0 % LAB HEMETOLOGY METHOD 09/26/2024 10:59 AM [facility] Platelets 291 130 - 400 K/mcL LAB HEMETOLOGY METHOD 09/26/2024 10:59 AM [facility] MPV 9.7 7.0 - 11.0 FL LAB HEMETOLOGY METHOD 09/26/2024 10:[address] [facility] NRBC 0.0 <1.0 % LAB HEMETOLOGY METHOD 09/26/2024 10:[address] [facility] NRBC Absolute 0.00 <0.10 K/mcL LAB HEMETOLOGY METHOD 09/26/2024 10:[address] [facility] Blood Venous blood specimen / Unknown Venipuncture / Unknown 09/26/2024 4:48 AM EST 09/26/2024 10:23 AM EST Vanessa Winslow MD LAB BLOOD ORDERABLES Final Res ult [facility] [address] [place] [address], [place] [phone] * (ABNORMAL) Magnesium (09/26/2024 4:48 AM EST) Magnesium 1.8(L) 1.9 - 2.6 mg/dL LAB CHEMISTRY METHOD 09/26/2024 12:[address] [facility] Blood Venous blood specimen / Unknown Venipuncture / Unknown 09/26/2024 4:48 AM EST 09/26/2024 10:23 AM EST Vanessa Winslow MD LAB BLOOD ORDERABLES Final Res ult [facility] [address] [place] [address], [place] [phone] documented in this encounter Visit Diagnoses Diagnosis Magnesium deficiency Disorders of magnesium metabolism Hyperkalemia Hyperpotassemia Sepsis, unspecified organism (CMS/HCC V24, CMS/HCC V28) documented in this encounter Care Teams Gas Manager Relationship Specialty Start Date End Date Juan Carlos Luna, PT PCP - General Internal Medicine 06/12/15 documented as of this encounter
--- OUTSIDE RECORDS SUMMARY | 2025-08-04 12:27 | XMS_ITS | Clinical Summary ---
Author Organization [address] Address [address] [place] [address] Phone Care Team Providers Care Medication Specialist Name Role Phone LunaJuan Carlos Sujit PT Primary Care Provider [phone] Surgical History Surgery Date Site/Laterality Comments OTHER SURGICAL HISTORY PROCEDURE:Left fibular fracture;COMMENT:01/14 COLONOSCOPY 06/22/2003 PROCEDURE:COLONOSCOPY;COMMENT:Yesi Berger - Benign appearing polyp at 20 cm COLONOSCOPY 06/08/2009 PROCEDURE:COLONOSCOPY;COMMENT:Yesi Berger - Colonic diverticulosis INCISION AND DRAINAGE FOOT 09/18/2017 Right PROCEDURE:INCISION AND DRAINAGE FOOT;COMMENT:Procedure: I&D FOOT; Surgeon: Carline Price DPM; Location: [facility] MAIN OPERATING ROOM; Service: Podiatry; Laterality: Right; LAYERED WOUND CLOSURE 09/18/2017 Right PROCEDURE:LAYERED WOUND CLOSURE;COMMENT:Procedure: CLOSURE WOUND SECONDARY; Surgeon: Carline Price DPM; Location: [facility] MAIN OPERATING ROOM; Service: Podiatry; Laterality: Right; INCISION AND DRAINAGE FOOT 09/14/2017 Right PROCEDURE:INCISION AND DRAINAGE FOOT;COMMENT:Procedure: I&D FOOT WITH REMOVAL OF BONE; Surgeon: Carline Price DPM; Location: [facility] AMBULATORY SURGERY; Service: Podiatry; Laterality: Right; TOE AMPUTATION 09/10/2017 Right PROCEDURE:TOE AMPUTATION;COMMENT:Procedure: AMPUTATION TOE, I&D RIGHT FOOT WITH REMOVAL OF BONE; Surgeon: Carline Price DPM; Location: [facility] MAIN OPERATING ROOM; Service: Podiatry; Laterality: [...] of mitral valve prolapse Diabetes mellitus ([facility] V 24, [facility] V28) DX:Diabetes mellitus ([facility]);COMMENT:A1c 6.07 September 2017 Osteomyelitis of toe of righ t foot ([facility] V24, [facility] V28) DX:Osteomyelitis of toe of right foot ([facility]);COMMENT:third toe Family History Medical History [...] Health Maintenance Due Date Last Done Comments Colorectal Cancer Screening: Colonoscopy 1950 COVID-19 Vaccine (#1) 01/14/1956 Diabetes: Annual Foot Exam 1961 Diabetes: Annual Retina Eye Exam 1961 Pneumococcal Vaccine: 50+ Years (1 of 2 - PCV) 1970 Zoster Vaccines (1 of 2) 1970 RSV Immunization Adult Patients (1 - Risk 60-74 years 1-dose series) 2011 Abdominal Aortic Aneurysm (AAA) Screen 09/23/2024 Cholesterol Screening (Lipid Panel) 09/23/2024 Diabetes: Annual Urine Albumin-Creatinine Ratio (uACR) [...] LAB CHEMISTRY METHOD 10/21/2024 11:[address] [facility] Potassium 5.0 3.5 - 5.5 mmol/L LAB CHEMISTRY METHOD 10/21/2024 11:[address] [facility] Chloride 108 96 - 110 mmol/L LAB CHEMISTRY METHOD 10/21/2024 11:[address] [facility] CO2 26 21 [...] [facility] Comment:Calculation based on the Chronic [...] MD LAB BLOOD ORDERABLES Final Res ult [facility] [address] [place] [address], * Hemoglobin A1c (09/23/2024 7:27 AM EST) Hemoglobin A1C 6.2 <6.5 % LAB CHEMISTRY METHOD 09/23/2024 11:[address] [facility] Mean Bld Glu Estim. 131 mg/dL LAB CHEMISTRY METHOD 09/23/2024 11:40 AM EST [facility] Blood Venous blood specimen / Unknown Venipuncture / Unknown 09/23/2024 7:27 AM EST 09/23/2024 9:33 AM EST us Vanessa Winslow MD LAB BLOOD ORDERABLES Final Res ult [facility] ([facility]) [facility] [address] [place] [address], [place] [phone] from Last 3 Months or Most Recently Relevant to Health Maintenance Insurance MEDICARE [facility] Care Teams Medication Specialist Relationship Specialty Start Date End Date Juan Carlos Luna PT PCP - General Internal Medicine 06/12/15
== END 2025-08-04 11:58 | disposition home or self-care (01) ==
LOC: HO.HUSH 11:14
PROVIDERS: PCP Internal Medicine; Visit Provider Urology
DX: R33.9 Retention of urine, unspecified (principal); Z13.9 Encounter for screening, unspecified
CPT/HCPCS: 99214

== ENCOUNTER → 2025-08-04 11:14 | Outpatient (BNVA) | payer MEDICARE, BC, SELFPAY | PROVIDERS: PCP Internal Medicine; Visit Provider Urology | DX: R33.9 Retention of urine, unspecified (principal); E11.40 Type 2 diabetes mellitus with diabetic neuropathy, unspecified | CPT/HCPCS: 51798; 81003; 99212 ==

== ENCOUNTER → 2025-08-09 11:29 | Outpatient (REF) | payer MEDICARE, BC, SELFPAY ==
--- NOTE | 2025-08-09 11:32 | CA_ITS ---
Transthoracic Echocardiogram Amended Patient (Last, First, Middle): Shashank Fregoso, Gender: M Date of : 1950 Age: 75 Procedure Date: 08/09/2025 Procedure Type: Transthoracic Echocardiogram Location: OP Height: 187.96 cm Weight: 86.18 kg BSA: 2.13 m2 Heart Rate: 92 bpm BP: 160 / 82 mmHg Hospice Patient Care Secretary: GLORIA Referring MD: Kayli Barney SOCIAL WORKER CLINICAL-Sujit Aboriginal Education Worker Coordinator: Irwin Maxwell MD Symptoms: I48.20 - Chronic atrial fibrillation, unspecified Study Quality: Adequate ECG Rhythm: Atrial flutter Conclusions: - 1. Mildly dilated left ventricle with severely reduced LV ejection fraction at 25-30% 2. Moderately reduced RV systolic function 3. Moderate biatrial enlargement 4. Hwru-uu-[id number] mitral regurgitation 5. Normal RV systolic pressure 6. No gross pericardial effusion Findings Left Ventricle Mildly increased left ventricular cavity size. There is normal left ventricular wall thickness. The left ventricular systolic function is severely decreased. The visually estimated ejection fraction is between 25 30%. There is severe global hypokinesis. Spectral Doppler is indicative of a pseudonormal filling pattern. Right Ventricle Mildly increased right ventricular cavity size. There is moderately decreased right ventricular systolic function. Atria The left atrium is moderately dilated. There is no evidence of interatrial shunt. The right atrium is moderately dilated. Aortic Valve Normal aortic valve structure and function. There is no aortic valve stenosis. There is no aortic valve regurgitation. Mitral Valve There is moderate anterior and posterior mitral leaflet thickening. There is mild mitral annular calcification. There is mild to moderate mitral valve regurgitation. There is no mitral valve stenosis. Pulmonic Valve The pulmonic valve is likely normal. Tricuspid Valve Normal tricuspid valve structure. There is mild tricuspid valve regurgitation. The right ventricular systolic pressure is 33 mmHg. Normal right atrial pressure. There is no evidence of pulmonary hypertension. Great Vessels All visible segments of the aorta are normal in size. The pulmonary artery was not well visualized. There is no dilatation of the ascending aorta measuring 3.30 cm. Venous The inferior vena cava is normal in size and collapses greater than 50% with inspiration. Pericardium/Pleural There is no evidence of pericardial effusion. Prior Study Comparison Significant changes compared to prior study dated: 03/07/2024. LV systolic function significantly reduced. Clinical correlation suggested Measurements 2D Linear Measurements IVSd: 1.05 0.6-0.9/0.6-1.0 cm LVIDd: 6.20 3.9-5.3/4.2-5.9 cm LVIDd Index: 2.91 2.4-3.2/2.2-3.1 cm/m2 LVIDs: 4.85 2.0-3.6 cm LA Diam: 5.00 2.7-3.8/3.0-4.0 cm LAIDs Index: 2.35 1.5-2.3 cm/m2 LVOT Diam: 2.50 3.0+(-)1.3 cm 2D Volumes LA Vol: 48.40 2D Systolic Function EF 4C: 34.20 >55% EF 2C: 24.60 >55% EF BiP: 27.80 >55% Mitral Valve MV Pk E: 1.42 E'Lateral: 6.47 E'Medial: 6.04 E/E' Med: 23.50 E/E' Lat: 21.90 MR Vol - PW Dopp: 28.32 MR VTI: 1.77 MR ERO: 16.00 MR Alias Henry: 0.39 MR RAD: 0.60 Aortic Valve AoV Pk Henry: 0.94 AoV Pk Grad: 3.00 MASON: 3.32 LVOT LVOT Pk Henry: 0.63 LVOT Mn Henry: 0.43 LVOT VTI: 0.12 LVOT Pk Grad: 2.00 LVOT Mn Grad: 1.00 LVOT Diam: 2.50 LVOT Area: 4.91 Diastolic Function MV Pk E: 1.42 E'Medial: 6.04 E/E' Med: 23.50 E' Laterial: 6.47 E/E' Lat: 21.90 Right Ventricle TAPSE (mm): 12.30 Tricuspid Valve TR Pk Henry: 2.74 TR Pk Grad: 30.00 RA Press: 3.00 RVSP: 33.00 Great Vessels Aorta Sinus of Valsalva: 3.20 2.0-3.5 cm Ao Asc: 3.30 2.1-3.4 cm Ao Arch: 2.90 Pulmonary Veins Pulm Vein S/D 0.50 Pulmonary Valve PV Pk Henry: 1.05 Peak PV Grad: 4.00 Updated in Other Vendor System with Status of Final Irwin Maxwell MD electronically signed on 08/09/2025 4:51:36 PM with status of Final
== END ==
LOC: HO.CARD 11:29
PROVIDERS: Visit Provider Nurse Practitioner Family
DX: I48.20 Chronic atrial fibrillation, unspecified (principal); I49.3 Ventricular premature depolarization; I34.0 Nonrheumatic mitral (valve) insufficiency
CPT/HCPCS: 93242; 93306

== ENCOUNTER → 2025-08-09 11:32 | Outpatient (BNV) | payer MEDICARE, BC, SELFPAY | PROVIDERS: Visit Provider Internal Medicine Cardiovascular Disease | DX: I51.7 Cardiomegaly (principal); I34.0 Nonrheumatic mitral (valve) insufficiency | CPT/HCPCS: 93306 ==

== ENCOUNTER → 2025-10-12 08:28 | Outpatient (REF) | payer MEDICARE, BC, SELFPAY ==
--- NOTE | ~2025-10-12 | NM_ITS ---
Lexiscan Myocardial perfusion study Indication: Cardiomyopathy to evaluate for myocardial ischemia Technique: The patient was brought in for a Lexiscan perfusion study on 10/12/2025 and was injected 0.4 mg of Lexiscan intravenously. Within a minute of this injection 30 mCi of sestamibi was given intravenously. Images were obtained using the SPECT gamma camera interlaced with the gating device. Images were obtained in supine position. Resting perfusion study was performed on 10/16/2025. Patient was administered 30 mCi of sestamibi intravenously at rest. Images were then obtained in supine position. Images were processed with the software and compared side to side in short axis, horizontal long axis and vertical long axis views. Images obtained without without CT attenuation. Total DLP 181 mGy-cm. Findings: The stress perfusion study showed nonattenuated images show moderately reduced uptake in the lateral wall of the LV myocardium. Attenuated corrected images show normal uptake of radiotracer in all segments of the LV myocardium. The gated study shows normal LV systolic function with calculated LVEF of 46%. LV cavity is normal in size. The gated study shows normal systolic wall thickening and contraction of segments. Resting study shows no significant change in perfusion pattern compared to stress perfusion study. Gating at rest was not performed due to atrial fibrillation. The findings are consistent with no reversible defect suggestive of ischemia, likely normal myocardial perfusion. NM/NM cardiolite stress test Impression: 1. Myocardial perfusion imaging study shows likely normal myocardial perfusion 2. Gated LVEF is 46% 3. Transient ischemic dilatation not present Nondiagnostic changes on EKG. Electronically signed by: Irwin Maxwell MD 10/16/2025 03:24 PM [facility]
--- NOTE | 2025-10-12 08:31 | CA_ITS ---
Acquisition Time: 2025-10-12 08:50:43 Total Exercise Time: 00:02:00 Test Indications: CARDIOMYOPATHY Medications: Protocol: LEXISCAN Max HR: 112 BPM 76% of Pred: 146 BPM Max BP: 120/78 mmHG Max Work Load: 1.0 METS Pharmacological Stress test with Lexiscan, with reports of right arm pain, with frequent PVCs, with normotensive response to injection. Nondiagnostic EKG for ischemia. In recovery, pt treated with IVP Aminophylline 75 mg to reverse Lexiscan after which pt feeling back to baseline. Nuclear images pending. Test reviewed with Dr. Maxwell. Referred By: Kayli Barney Electronically Signed By: Wojciech Caldwell
== END ==
LOC: HO.CARD 08:28
PROVIDERS: PCP Student in an Organized Health Care Education/Training Program; Visit Provider Nurse Practitioner Family
DX: R93.1 Abnormal findings on diagnostic imaging of heart and coronary circulation (principal); I42.9 Cardiomyopathy, unspecified; I48.20 Chronic atrial fibrillation, unspecified
CPT/HCPCS: 78452; 93017; A9500; J0280; J2785

== ENCOUNTER → 2025-10-12 08:31 | Outpatient (BNV) | payer MEDICARE, BC, SELFPAY | PROVIDERS: PCP Student in an Organized Health Care Education/Training Program | DX: I42.9 Cardiomyopathy, unspecified (principal) | CPT/HCPCS: 78452; 93016; 93018 ==

== ENCOUNTER 2025-10-19 13:45 | Outpatient (AMB) | payer MEDICARE, BC, SELFPAY ==
--- NOTE | 2025-10-19 13:05 | A.OFFPC_ITS ---
Intake Visit Reasons: Telehealth / 3 Month F/U Allergies penicillin V Allergy (Intermediate, Verified 08/04/25 11:15) rash amoxicillin Allergy (Verified 08/04/25 11:15) Unknown Erythromycin Allergy (Intermediate, Uncoded 08/04/25 11:15) diarrhea Medication List - Last Reconciled 10/19/25 by Tye Miller MD acetaminophen 500 mg PO BID amiodarone 200 mg PO DAILY apixaban (Eliquis) 5 mg PO BID atorvastatin (Lipitor) 20 mg PO BEDTIME betamethasone, augmented 0.05 % (Diprolene (augmented)) 1 appl topical BID PRN bethanechol chloride 25 mg PO BID 90 days bisacodyl 10 mg [place] DAILY PRN clotrimazole-betamethasone 1-0.05 % 1 appl topical BID 4 weeks dapagliflozin propanediol (Farxiga) 10 mg PO DAILY 90 days diclofenac sodium 3% 1 appl topical BID finasteride 5 mg PO BEDTIME 90 days folic acid 1 mg PO DAILY 90 days lancets As directed magnesium oxide 400 mg PO DAILY metoprolol tartrate 25 mg PO BID potassium chloride ER 8 mEq PO BID tamsulosin 0.4 mg PO BEDTIME thiamine HCl (vitamin B1) 100 mg PO DAILY Tobacco use date assessed: 10/19/25 Fall risk assessment: No Falls in past year Last assessed Fall Risk: 10/19/25 Dental Screening Dental Screen Date: 10/19/25 Did you have a dental visit in the last 12 months?: Yes HPI HPI Comments History of Present Illness Details History of Present Illness The patient is a 75 year old male presenting for a three-month check-in and medication management. He has a history of atrial fibrillation, for which he takes amiodarone 200 mg daily and Eliquis 5 mg twice daily for anticoagulation. His cardiac history is also managed with atorvastatin 20 mg for cholesterol, Farxiga 10 mg daily, and metoprolol tartrate 25 mg. The patient has a history of urinary obstruction and benign prostatic hyperpl du, managed with bethanechol 25 mg twice daily, finasteride 5 mg at night, and tamsulosin 0.4 mg at night. He continues to experience bladder problems, specifically incomplete bladder emptying and wetting pads in the morning. He reports having sent a message to his urologist's office, Dr. Boateng, but has not yet received a response. He currently has a persistent cold, which he feels is not improving due to the weather. He confirmed he is not currently taking doxycycline. Medical History: - Atrial fibrillation - Hyperlipidemia - Urinary obstruction - Benign prostatic hyperplasia Medications: - Amiodarone 200 mg once daily for atria l fibrillation. - Eliquis 5 mg twice daily for anticoagu lation. - Atorvastatin 20 mg for cholesterol. - Bethanechol 25 mg twice daily for urin tigre obstruction. - Farxiga 10 mg once daily for a heart c ondition. - Finasteride 5 mg at night for the pros white. - Metoprolol tartrate 25 mg for a heart condition. - Tamsulosin 0.4 mg at night for the pro state. - The patient is not taking doxycycline. Results [facility] Medical History (Updated 10/19/25 @ 13:15 by Tye Miller MD) Urinary incontinence PAF (paroxysmal atrial fibrillation) History of Clostridioides difficile infection Bacteriuria Bladder outlet obstruction Psoriasis Sepsis Elevated cholesterol Anemia BPH (benign prostatic hyperplasia) Diabetes Vitamin D deficiency Neuropathy HTN (hypertension) Chronic a-fib Amputation of great toe Osteomyelitis PVD (peripheral vascular disease) Amputation of toe of left foot Pre-diabetes History of neuropathy Arrhythmia Osteomyelitis of second toe of left foot Ulcer of left second toe Amputated toe of right foot History of heart valve abnormality Surgical History History of amputation of toe Status post amputation of toe Hx of amputation Status post ORIF of fracture of ankle Family History Mother CAD (coronary artery disease) Social History Household Members: Family Household Members Other:: Bother Housing: House Are you a primary out of school hours care worker to a significant other at home: No Do you presently have visiting nurse or other home services: Yes (living Nurse) Alcohol intake: current Alcohol intake frequency: holidays/special occasions only Patient Tobacco Use Status: Never used Tobacco e-Cigarette/Vaping Use: Never Used Second Hand Smoke Exposure: No Advance Directives Date on File: 08/07/20 service: No Current occupational status: retired Cognitive needs: Yes (walker) Hearing needs: No Vision needs: Yes (reading glasses) Questionnaire Thrive Questionnaire Date Thrive assessed: 03/23/25 UTE-7 AMB Questionnaire UTE-7 Date UTE - 7 assessed: 03/23/25 Source: Developed by Drs. Albert Goldman, Cecy Kenyon, Ochoa Carbajal and colleagues, with an educational carmelo from [employer]. Review of Systems Narrative Review of Systems - Genitourinary: Reports incomplete bladder emptying and requires changing wet pads in the morning. - Respiratory: Reports a persistent cold. Denies shortness of breath. - Cardiovascular: Denies chest pain. - Gastrointestinal: Reports normal bowel movements. Physical exam (Primary Care) Tobacco/Smoking Status: Tobacco use Status Tobacco use date assessed 10/19/25 10/19/25 13:06 Patient Tobacco Use Status Never used Tobacco 10/19/25 13:06 e-Cigarette/Vaping Use Never Used 10/19/25 13:06 Thrive Assessment: Date of Thrive Assessment Date Thrive assessed 03/23/25 10/19/25 13:06 Telehealth Telehealth Telehealth Platform: Telephone Location of provider rendering services: practice address Location of patient: address on file Patient Identification confirmed using: Name, : Yes Telehealth method: voice only Patient verbally consented to treatment: Yes Patient verbally consented to billing insurance company: Yes Patient informed of any privacy concerns related to visit: Yes Minutes spent on Phone/Video with Pt.: 10 Coding Level of Care Code Tele Est Pt Level 4 (18748) Add On Problem Visit Only Diagnoses Urinary incontinence, unspecified type R32 Urinary Incontinence type: unspecified incontinence Benign prostatic hyperplasia with lower urinary tract symptoms, symptom details unspecified N40.1 Lower urinary tract symptom presence: symptoms present Lower urinary tract symptom detail: unspecified Hypertension, unspecified type I10 Hypertension type: unspecified Chronic a-fib I48.20 Type 2 diabetes mellitus without complication, without long-term current use of insulin E11.9 Diabetes mellitus type: type 2 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 - A refill for tamsulosin will be sent to the pharmacy. - The patient has attempted to contact his urologist, Dr. Boateng, and is awaiting a response. Code(s): R32 - Unspecified urinary incontinence Category: Medical Qualifiers: Urinary Incontinence type: unspecified incontinence Qualified Code(s): R32 - Unspecified urinary incontinence (2) BPH (benign prostatic hyperplasia): Comment: - Continue finasteride 5mg daily & tamsulosin .4mg QHS Code(s): N40.0 - Benign prostatic hyperplasia without lower urinary tract symptoms Category: Medical Qualifiers: Lower urinary tract symptom presence: symptoms present Lower urinary tract symptom detail: unspecified Qualified Code(s): N40.1 - Benign prostatic hyperplasia with lower urinary tract symptoms (3) HTN (hypertension): Comment: - Continue metoprolol tartrate 25mg twice daily. - Regular blood pressure monitoring. Code(s): I10 - Essential (primary) hypertension Category: Medical Qualifiers: Hypertension type: unspecified Qualified Code(s): I10 - Essential (primary) hypertension (4) Chronic a-fib: Comment: - Continue with current medication regimen: Eliquis and amiodarone. - Monitor and adjust treatment as needed. Code(s): I48.20 - Chronic atrial fibrillation, unspecified Category: Medical (5) Diabetes: Comment: - Continue Farxiga and monitor HbA1c every 3 months. (Ordered today) Code(s): E11.9 - Type 2 diabetes mellitus without complications Category: Medical Qualifiers: Diabetes mellitus type: type 2 Diabetes mellitus fpc insulin use: without fpc use Diabetes mellitus complication status: without complication Qualified Code(s): E11.9 - Type 2 diabetes mellitus without complications Plan I reviewed the patient's current medications, including amiodarone, Eliquis, atorvastatin, bethanechol, Farxiga, finasteride, and metoprolol tartrate, and confirmed their continued use. I will send in a refill for tamsulosin. We discussed his ongoing urinary issues, including incomplete bladder emptying, and his attempts to contact his urologist's office. Regarding his persistent cold, I advised using [id number] remedies. We scheduled a follow-up telehealth appointment in three months, on January 17 at 11 AM. The patient was advised to reach out to the office if any new concerns arise. Medications: Refilled tamsulosin 0.4 mg PO BEDTIME 30 caps 1RF Patient Instructions: - Continue to take your current medications as prescribed. - A prescription refill for Tamsulosin will be sent to your pharmacy. - For your persistent cold, you may use [id number] remedies. - We have scheduled your next follow-up call for January 17 at 11:00 AM. - Please contact our office if you have any questions or if your symptoms change.
--- OUTSIDE RECORDS SUMMARY | 2025-10-19 17:57 | XMS_ITS | Clinical Summary ---
Author Organization Formerly [facility] Prior to 04/01/25 Address [address] [place] [address] Care Team Providers Care Claim Processor Name Role Phone Juan Carlos Luna MD [...] this topic Medical Devices Implanted Type Area Counselor Education Professor Device Identifier Shelf Expiration Date Model / Serial / Lot Sponge Surgifoam 100 [id number] [id number] Hemostatic Agent - [id number] - [id number] Implanted:Qty: 1 on 09/14/2017 [place] Carline Price DPM [place] [facility] [place] Hemostatic Agent [employer] 02/10/2021 1974 / / [id number] Advance Directives For more information, please contact: [phone] Latest Code Status on File Code Status [...] way: discussion with patient . Care Teams Claim Processor Relationship Specialty Start Date End Date Juan Carlos Luna MD PCP - General Internal Medicine 06/12/15
--- OUTSIDE RECORDS SUMMARY | 2025-10-19 17:57 | XMS_ITS | Encounter Summary ---
Author Organization [facility] Address [address] [place] [address] Care Team Providers Care Area Cleaner Name Role Phone Juan Carlos Luna PT Primary Care Provider [phone] Encounter Details Date Type Department Care Team (Late st Contact Info) Description 10/19/2024 Lab Requisition [facility] - Main Lab [address] [facility] [place] [address] Vanessa Winslow MD [address] [place] [id number] Unspecified atrial fibrillation (CMS/HCC V24, CMS/HCC V28); [...] mmol/L LAB CHEMISTRY METHOD 10/19/2024 2:04 PM [facility] Potassium 4.7 3.5 - 5.5 mmol/L LAB CHEMISTRY METHOD 10/19/2024 2:04 PM [facility] Chloride 107 96 - 110 mmol/L LAB CHEMISTRY METHOD 10/19/2024 2:04 PM [facility] CO2 24 21 - 32 mmol/L LAB CHEMISTRY METHOD 10/19/2024 2:04 PM [facility] Anion Gap 8 3 - 11 LAB CHEMISTRY METHOD 10/19/2024 2:04 PM [facility] Glucose 179(H) 70 - 100 mg/dL LAB CHEMISTRY METHOD 10/19/2024 2:04 PM [facility] BUN 42(H) 5 - 25 mg/dL LAB CHEMISTRY METHOD 10/19/2024 2:04 PM [facility] Comment:Results verified by repeat testing Creatinine 1.40(H) 0.70 - 1.30 mg/dL LAB CHEMISTRY METHOD 10/19/2024 2:04 PM [facility] eGFR 53(L) >=60 mL/min/1. 73m2 LAB CHEMISTRY METHOD 10/19/2024 2:04 PM [facility] Comment:Calculation based on the Chronic Kidney Disease Epidemiology Collaboration (CKD-EPI) equation refit without adjustment for race. BUN/Creatinine Ratio 30.0 LAB CHEMISTRY METHOD 10/19/2024 2:04 PM [facility] Calcium 9.5 8.5 - 10.5 mg/dL LAB CHEMISTRY METHOD 10/19/2024 2:04 PM [facility] Blood Venous blood specimen / Unknown Venipuncture / Unknown 10/19/2024 10:30 AM EST 10/19/2024 11:49 AM EST us Vanessa Winslow MD LAB BLOOD ORDERABLES Final Res ult [facility] [address] [place] [address], * (ABNORMAL) Complete blood count (10/19/2024 10:30 AM EST) WBC 12.6(H) 4.8 - 10.8 K/mcL LAB HEMETOLOGY METHOD 10/19/2024 1:32 PM EST [facility] RBC 3.50(L) 4.50 - 5.50 M/mcL LAB HEMETOLOGY METHOD 10/19/2024 1:32 PM [facility] Hemoglobin 9.7(L) 13.5 - 17.5 g/dL LAB HEMETOLOGY METHOD 10/19/2024 1:32 PM [facility] Hematocrit 31.9(L) 42.0 - 54.0 % LAB HEMETOLOGY METHOD 10/19/2024 1:32 PM EST [facility] MCV 91.7 79.0 - 98.0 FL LAB HEMETOLOGY METHOD 10/19/2024 1:32 PM [facility] MCH 27.9 27.0 - 32.0 pcg LAB HEMETOLOGY METHOD 10/19/2024 1:32 PM [facility] MCHC 30.4(L) 32.0 - 37.0 g/dL LAB HEMETOLOGY METHOD 10/19/2024 1:32 PM [facility] RDW 19.3(H) 11.0 - 15.0 % LAB HEMETOLOGY METHOD 10/19/2024 1:32 PM [facility] Platelets 485(H) 130 - 400 K/mcL LAB HEMETOLOGY METHOD 10/19/2024 1:32 PM [facility] MPV 9.6 7.0 - 11.0 FL LAB HEMETOLOGY METHOD 10/19/2024 1:32 PM EST [facility] NRBC 0.0 <1.0 % LAB HEMETOLOGY METHOD 10/19/2024 1:32 PM EST [facility] NRBC Absolute 0.00 <0.10 K/mcL LAB HEMETOLOGY METHOD 10/19/2024 1:32 PM EST [facility] Blood Venous blood specimen / Unknown Venipuncture / Unknown 10/19/2024 10:30 AM EST 10/19/2024 11:49 AM EST us Vanessa Winslow MD LAB BLOOD ORDERABLES Final Res ult [facility] [address] [place] [address], documented in this encounter Visit Diagnoses Diagnosis Unspecified atrial fibrillation (CMS/HCC V24, CMS/HCC V28) Type 2 diabetes mellitus with diabetic chronic kidney disease (CMS/HCC V24, CMS/HCC V28) documented in this encounter Care Teams Area Cleaner Relationship Specialty Start Date End Date Juan Carlos Luna, PT PCP - General Internal Medicine 06/12/15 documented as of this encounter
--- OUTSIDE RECORDS SUMMARY | 2025-10-19 17:57 | XMS_ITS | Encounter Summary ---
Author Organization [facility] Address [address] [place] [address] Care Team Providers Care Filling Operator Name Role Phone Juan Carlos Luna PT Primary Care Provider [phone] Encounter Details Date Type Department Care Team (Latest Contact Info) Description 09/23/2024 Lab Requisition [facility] - Main Lab [address] [facility] [place] [address] Vanessa Winslow MD [address] [place] [id number] Type 2 diabetes mellitus without complications (CMS/HCC [...] LAB CHEMISTRY METHOD 09/23/2024 10:44 AM EST [facility] Blood Venous blood specimen / Unknown Venipuncture / Unknown 09/23/2024 7:27 AM EST 09/23/2024 9:33 AM EST us Vanessa Winslow MD LAB BLOOD ORDERABLES Final Res ult [facility] [address] [place] [address], * Thyroxine free (09/23/2024 7:27 AM EST) Free T4 1.33 0.70 - 1.80 ng/dL LAB CHEMISTRY METHOD 09/23/2024 10:51 AM EST [facility] Blood Venous blood specimen / Unknown Venipuncture / Unknown 09/23/2024 7:27 AM EST 09/23/2024 9:33 AM EST Vanessa Winslow MD LAB BLOOD ORDERABLES Final Res ult Performing Organization Address City/[facility]/ZIP Co de Phone Number [facility] [address] [place] [address], [place] [phone] * Thyroid stimulating hormone (09/23/2024 7:27 AM EST) Pathologist [facility] TSH 3.43 0.40 - 4.00 mcIU/mL LAB CHEMISTRY METHOD 09/23/2024 10:51 AM EST [facility] Blood Venous blood specimen / Unknown Venipuncture / Unknown 09/23/2024 7:27 AM EST 09/23/2024 9:33 AM EST Vanessa Winslow MD LAB BLOOD ORDERABLES Final Res ult Performing Organization Address [facility]/ZIP Co de Phone Number [facility] [address] [place] [address], [place] [phone] * Hemoglobin A1c (09/23/2024 7:27 AM EST) [facility] Hemoglobin A1C 6.2 <6.5 % LAB CHEMISTRY METHOD 09/23/2024 11:40 AM EST [facility] Mean Bld Glu Estim. 131 mg/dL LAB CHEMISTRY METHOD 09/23/2024 11:40 AM EST [facility] Blood Venous blood specimen / Unknown Venipuncture / Unknown 09/23/2024 7:27 AM EST 09/23/2024 9:33 AM EST Vanessa Winslow MD LAB BLOOD ORDERABLES Final Res ult Performing Organization Address City/[facility]/ZIP Co de Phone Number [facility] [address] [place] [address], [place] [phone] * (ABNORMAL) Comprehensive metabolic panel (09/23/2024 7:27 AM EST) [facility] Signature Sodium 141 133 - 145 mmol/L LAB CHEMISTRY METHOD 09/23/2024 10:45 AM [facility] Potassium 4.3 3.5 - 5.5 mmol/L LAB CHEMISTRY METHOD 09/23/2024 10:45 AM [facility] Chloride 109 96 - 110 mmol/L LAB CHEMISTRY METHOD 09/23/2024 10:45 AM [facility] CO2 23 21 - 32 mmol/L LAB CHEMISTRY METHOD 09/23/2024 10:45 AM [facility] Anion Gap 9 3 - 11 LAB CHEMISTRY METHOD 09/23/2024 10:45 AM [facility] Glucose 88 70 - 100 mg/dL LAB CHEMISTRY METHOD 09/23/2024 10:45 AM [facility] BUN 18 5 - 25 mg/dL LAB CHEMISTRY METHOD 09/23/2024 10:45 AM [facility] Creatinine 1.23 0.70 - 1.30 mg/dL LAB CHEMISTRY METHOD 09/23/2024 10:45 AM [facility] eGFR 62 >=60 mL/min/1. 73m2 LAB CHEMISTRY METHOD 09/23/2024 10:45 AM [facility] Comment:Calculation based on the Chronic Kidney Disease Epidemiology Collaboration (CKD-EPI) equation refit without adjustment for race. BUN/Creatinine Ratio 14.6 LAB CHEMISTRY METHOD 09/23/2024 10:45 AM [facility] Calcium 8.5 8.5 - 10.5 mg/dL LAB CHEMISTRY METHOD 09/23/2024 10:45 AM [facility] AST (SGOT) 23 10 - 42 unit/L LAB CHEMISTRY METHOD 09/23/2024 10:45 AM [facility] ALT (SGPT) 22 10 - 60 unit/L LAB CHEMISTRY METHOD 09/23/2024 10:45 AM [facility] Alkaline Phosphatase 119 42 - 121 unit/L LAB CHEMISTRY METHOD 09/23/2024 10:45 AM [facility] Total Protein 5.5(L) 6.0 - 8.0 g/dL LAB CHEMISTRY METHOD 09/23/2024 10:45 AM [facility] Albumin 2.1(L) 3.2 - 5.0 g/dL LAB CHEMISTRY METHOD 09/23/2024 10:45 AM [facility] Total Bilirubin 0.6 0.0 - 1.4 mg/dL LAB CHEMISTRY METHOD 09/23/2024 10:45 AM [facility] Blood Venous blood specimen / Unknown Venipuncture / Unknown 09/23/2024 7:27 AM EST 09/23/2024 9:33 AM EST us Vanessa Winslow MD LAB BLOOD ORDERABLES Final Res ult [facility] [address] [place] [address], [place] [phone] * (ABNORMAL) Complete blood count (09/23/2024 7:27 AM EST) WBC 5.4 4.8 - 10.8 K/mcL LAB HEMETOLOGY METHOD 09/23/2024 10:24 AM [facility] RBC 3.30(L) 4.50 - 5.50 M/mcL LAB HEMETOLOGY METHOD 09/23/2024 10:24 AM [facility] Hemoglobin 8.8(L) 13.5 - 17.5 g/dL LAB HEMETOLOGY METHOD 09/23/2024 10:24 AM [facility] Hematocrit 29.3(L) 42.0 - 54.0 % LAB HEMETOLOGY METHOD 09/23/2024 10:24 AM [facility] MCV 89.1 79.0 - 98.0 FL LAB HEMETOLOGY METHOD 09/23/2024 10:24 AM EST [facility] MCH 26.7(L) 27.0 - 32.0 pcg LAB HEMETOLOGY METHOD 09/23/2024 10:24 AM [facility] MCHC 30.0(L) 32.0 - 37.0 g/dL LAB HEMETOLOGY METHOD 09/23/2024 10:24 AM [facility] RDW 16.4(H) 11.0 - 15.0 % LAB HEMETOLOGY METHOD 09/23/2024 10:24 AM EST [facility] Platelets 231 130 - 400 K/mcL LAB HEMETOLOGY METHOD 09/23/2024 10:24 AM [facility] MPV 9.8 7.0 - 11.0 FL LAB HEMETOLOGY METHOD 09/23/2024 10:24 AM EST [facility] NRBC 0.0 <1.0 % LAB HEMETOLOGY METHOD 09/23/2024 10:24 AM [facility] NRBC Absolute 0.00 <0.10 K/mcL LAB HEMETOLOGY METHOD 09/23/2024 10:24 AM [facility] Blood Venous blood specimen / Unknown Venipuncture / Unknown 09/23/2024 7:27 AM EST 09/23/2024 9:33 AM EST us Vanessa Winslow MD LAB BLOOD ORDERABLES Final Res ult [facility] [address] [place] [address], documented in this encounter Visit Diagnoses Diagnosis Type 2 diabetes mellitus without complications (CMS/HCC V24, CMS/HCC V28) Essential (primary) hypertension Unspecified essential hypertension Unspecified atrial fibrillation (CMS/HCC V24, CMS/HCC V28) documented in this encounter Care Teams Filling Operator Relationship Specialty Start Date End Date Juan Carlos Luna, PT PCP - General Internal Medicine 06/12/15 documented as of this encounter
--- OUTSIDE RECORDS SUMMARY | 2025-10-19 17:57 | XMS_ITS | Encounter Summary ---
Author Organization [facility] Address [address] [place] [address] Care Team Providers Care Statement Clerks Supervisor Name Role Phone Juan Carlos Luna PT Primary Care Provider [phone] Encounter Details Date Type Department Care Team (Latest Contact Info) Description 10/21/[address] [facility] - Main Lab [address] [facility] [place] [id number] Vanessa Winslow MD [address] [place] [id number] Metabolic encephalopathy Social History Tobacco Use Types [...] ult [facility] [address] [place] [address], [place] [phone] * (ABNORMAL) Complete blood count (10/21/2024 6:03 AM EST) Pathologist [facility] WBC 9.3 4.8 - 10.8 K/mcL [...] ult [facility] [address] [place] [address], documented in this encounter Visit Diagnoses Diagnosis Metabolic encephalopathy documented in this encounter Care Teams Statement Clerks Supervisor Relationship Specialty Start Date End Date Juan Carlos Luna, PT PCP - General Internal Medicine 06/12/15 documented as of this encounter
--- OUTSIDE RECORDS SUMMARY | 2025-10-19 17:57 | XMS_ITS | Encounter Summary ---
Author Organization [facility] Address [address] [place] [address] Care Team Providers Care Valve Lapper Name Role Phone Juan Carlos Luna PT Primary Care Provider [phone] Encounter Details Date Type Department Care Team (Late st Contact Info) Description 09/26/2024 Lab Requisition [facility] - Main Lab [address] [facility] [place] [address] Vanessa Winslow MD [address] [place] [id number] Magnesium deficiency; Hyperkalemia; Sepsis, unspecified organism (CMS/HCC [...] mmol/L LAB CHEMISTRY METHOD 09/26/2024 12:10 PM [facility] Potassium 5.5 3.5 - 5.5 mmol/L LAB CHEMISTRY METHOD 09/26/2024 12:10 PM [facility] Chloride 110 96 - 110 mmol/L LAB CHEMISTRY METHOD 09/26/2024 12:10 PM [facility] CO2 23 21 - 32 mmol/L LAB CHEMISTRY METHOD 09/26/2024 12:10 PM [facility] Anion Gap 9 3 - 11 LAB CHEMISTRY METHOD 09/26/2024 12:10 PM [facility] Glucose 102(H) 70 - 100 mg/dL LAB CHEMISTRY METHOD 09/26/2024 12:10 PM [facility] BUN 18 5 - 25 mg/dL LAB CHEMISTRY METHOD 09/26/2024 12:10 PM [facility] Creatinine 1.31(H) 0.70 - 1.30 mg/dL LAB CHEMISTRY METHOD 09/26/2024 12:10 PM [facility] eGFR 57(L) >=60 mL/min/1. 73m2 LAB CHEMISTRY METHOD 09/26/2024 12:10 PM [facility] Comment:Calculation based on the Chronic Kidney Disease Epidemiology Collaboration (CKD-EPI) equation refit without adjustment for race. BUN/Creatinine Ratio 13.7 LAB CHEMISTRY METHOD 09/26/2024 12:10 PM [facility] Calcium 8.7 8.5 - 10.5 mg/dL LAB CHEMISTRY METHOD 09/26/2024 12:10 PM [facility] Blood Venous blood specimen / Unknown Venipuncture / Unknown 09/26/2024 4:48 AM EST 09/26/2024 10:23 AM EST us Vanessa Winslow MD LAB BLOOD ORDERABLES Final Res ult [facility] [address] [place] [address], * (ABNORMAL) Complete blood count (09/26/2024 4:48 AM EST) WBC 6.1 4.8 - 10.8 K/mcL LAB HEMETOLOGY METHOD 09/26/2024 10:59 AM EST [facility] RBC 3.30(L) 4.50 - 5.50 M/[facility] LAB HEMETOLOGY METHOD 09/26/2024 10:59 AM [facility] Hemoglobin 9.0(L) 13.5 - 17.5 g/dL LAB HEMETOLOGY METHOD 09/26/2024 10:59 AM [facility] Hematocrit 29.8(L) 42.0 - 54.0 % LAB HEMETOLOGY METHOD 09/26/2024 10:59 AM EST [facility] MCV 89.5 79.0 - 98.0 FL LAB HEMETOLOGY METHOD 09/26/2024 10:59 AM [facility] MCH 27.0 27.0 - 32.0 pcg LAB HEMETOLOGY METHOD 09/26/2024 10:59 AM [facility] MCHC 30.2(L) 32.0 - 37.0 g/dL LAB HEMETOLOGY METHOD 09/26/2024 10:59 AM EST [facility] RDW 16.9(H) 11.0 - 15.0 % LAB HEMETOLOGY METHOD 09/26/2024 10:59 AM [facility] Platelets 291 130 - 400 K/mcL LAB HEMETOLOGY METHOD 09/26/2024 10:59 AM [facility] MPV 9.7 7.0 - [...] ult [facility] [address] [place] [address], [place] [phone] * (ABNORMAL) Magnesium (09/26/2024 4:48 AM EST) Magnesium 1.8(L) 1.9 - 2.6 mg/dL LAB CHEMISTRY METHOD 09/26/2024 12:10 PM EST [facility] Blood Venous blood specimen / Unknown Venipuncture / Unknown 09/26/2024 4:48 AM EST 09/26/2024 10:23 AM EST Vanessa Winslow MD LAB BLOOD ORDERABLES Final Res ult [facility] [address] [place] [address], [place] [phone] documented in this encounter Visit Diagnoses Diagnosis Magnesium deficiency Disorders of magnesium metabolism Hyperkalemia Hyperpotassemia Sepsis, unspecified organism (CMS/HCC V24, CMS/HCC V28) documented in this encounter Care Teams Valve Lapper Relationship Specialty Start Date End Date Juan Carlos Luna, PT PCP - General Internal Medicine 06/12/15 documented as of this encounter
--- OUTSIDE RECORDS SUMMARY | 2025-10-19 17:57 | XMS_ITS | Clinical Summary ---
Author Organization [address] Address [address] [place] [address] Phone Care Team Providers Care Hand Rug Braider Name Role Phone LunaJuan Carlos Sujit PT Primary Care Provider [phone] Surgical History Surgery Date Site/Laterality Comments OTHER SURGICAL HISTORY PROCEDURE:Left fibular fracture;COMMENT:01/14 COLONOSCOPY 06/22/2003 PROCEDURE:COLONOSCOPY;COMMENT:Yesi Berger - Benign appearing polyp at 20 cm COLONOSCOPY 06/08/2009 PROCEDURE:COLONOSCOPY;COMMENT:Yesi Berger - Colonic diverticulosis INCISION AND DRAINAGE FOOT 09/18/2017 Right PROCEDURE:INCISION AND DRAINAGE FOOT;COMMENT:Procedure: I&D FOOT; Surgeon: Carline Price DPM; Location: MAIN OPERATING ROOM; Service: Podiatry; Laterality: Right; LAYERED WOUND CLOSURE 09/18/2017 Right PROCEDURE:LAYERED WOUND CLOSURE;COMMENT:Procedure: CLOSURE WOUND SECONDARY; Surgeon: Carline Price DPM; Location: MAIN OPERATING ROOM; Service: Podiatry; Laterality: Right; INCISION AND DRAINAGE FOOT 09/14/2017 Right PROCEDURE:INCISION AND DRAINAGE FOOT;COMMENT:Procedure: I&D FOOT WITH REMOVAL OF BONE; Surgeon: Carline Price DPM; Location: AMBULATORY SURGERY; Service: Podiatry; Laterality: Right; TOE AMPUTATION 09/10/2017 Right PROCEDURE:TOE AMPUTATION;COMMENT:Procedure: AMPUTATION TOE, I&D RIGHT FOOT WITH REMOVAL OF BONE; Surgeon: Carline Price DPM; Location: MAIN OPERATING ROOM; Service: Podiatry; Laterality: Right; Medical History Medical History Date Comments Anxiety disorder 05/25/2015 DX:Anxiety diso rder BP (high blood pressure) 05/25/2015 DX:BP ( high blood pressure) Benign localized hyperplasia of prostate 05/25/2015 DX:Benign localized hyperpla beverley of prostate History of colon polyps DX:Histo ry of colon polyps History of mitral valve prolapse DX:History of mitral valve prolapse Diabetes mellitus ([facility] V 24, [facility] V28) DX:Diabetes mellitus ([facility]);COMMENT:A1c 6.07 September 2017 Osteomyelitis of toe of righ t foot ([facility] V24, [facility] V28) DX:Osteomyelitis of toe of right foot ([facility]);COMMENT:third toe Family History Medical History Relation Name [...] on file Sexual Orientation Not on file Plan of Treatment Health Maintenance Due Date Last Done Comments Colorectal Cancer Screening: Colonoscopy 1951 COVID-19 Vaccine (#1) 01/14/1956 Diabetes: Annual Foot Exam 1961 Diabetes: Annual Retina Eye Exam 1961 Pneumococcal Vaccine: 50+ Years (1 of 2 - PCV) 1970 Zoster Vaccines (1 of 2) 1970 RSV Immunization Adult Patients (1 - Risk 50-74 years 1-dose series) 2001 Abdominal Aortic Aneurysm (AAA) Screen 09/23/2024 Cholesterol [...] 11:16 AM EST [facility] Chloride 108 96 - 110 mmol/L LAB CHEMISTRY METHOD 10/21/2024 11:16 AM EST [facility] CO2 26 21 - 32 mmol/L LAB CHEMISTRY METHOD 10/21/2024 11:16 AM [facility] Anion Gap 6 3 - 11 LAB CHEMISTRY METHOD 10/21/2024 11:16 AM [facility] Glucose 142(H) 70 - 100 mg/dL LAB CHEMISTRY METHOD 10/21/2024 11:16 AM [facility] BUN 41(H) 5 - 25 mg/dL LAB CHEMISTRY METHOD 10/21/2024 11:16 AM [facility] Creatinine 1.21 0.70 - 1.30 mg/dL LAB CHEMISTRY METHOD 10/21/2024 11:16 AM [facility] eGFR 63 >=60 mL/min/1. 73m2 LAB CHEMISTRY METHOD 10/21/2024 11:16 AM [facility] Comment:Calculation based on the Chronic Kidney Disease Epidemiology Collaboration (CKD-EPI) equation refit without adjustment for race. BUN/Creatinine Ratio 33.9 LAB CHEMISTRY METHOD 10/21/2024 11:16 AM [facility] Calcium 9.1 8.5 - 10.5 mg/dL LAB CHEMISTRY METHOD 10/21/2024 11:16 AM [facility] Blood Venous blood specimen / Unknown Venipuncture / Unknown 10/21/2024 6:03 AM EST 10/21/2024 10:16 AM EST us Vanessa Winslow MD LAB BLOOD ORDERABLES Final Res ult [facility] [address] [place] [address], * Hemoglobin A1c (09/23/2024 7:27 AM EST) Hemoglobin A1C 6.2 <6.5 % LAB CHEMISTRY METHOD 09/23/2024 11:40 AM EST [facility] Mean Bld Glu Estim. 131 mg/dL LAB CHEMISTRY METHOD 09/23/2024 11:40 AM EST [facility] Blood Venous blood specimen / Unknown Venipuncture / Unknown 09/23/2024 7:27 AM EST 09/23/2024 9:33 AM EST us Vanessa Winslow MD LAB BLOOD ORDERABLES Final Res ult [facility] [address] [place] [address], from Last 3 Months or Most Recently Relevant to Health Maintenance Insurance MEDICARE [facility] Care Teams Hand Rug Braider Relationship Specialty Start Date End Date Juan Carlos Luna PT PCP - General Internal Medicine 06/12/15
--- OUTSIDE RECORDS SUMMARY | 2025-10-19 17:57 | XMS_ITS | Encounter Summary ---
Author Organization [facility] Address [address] [place] [address] Care Team Providers Care Walking Dragline Operator Name Role Phone Juan Carlos Luna PT Primary Care Provider [phone] Encounter Details Date Type Department Care Team (Late st Contact Info) Description 10/21/2024 Lab Requisition [facility] - Main Lab [address] [facility] [place] [address] Vanessa Winslow MD [address] [place] [id number] Urinary tract infection, site not specified Social [...] reflex microscopic (10/20/2024 8:00 PM EST) Specific [place] Urine 1.022 1.003 - 1.030 LAB URINALYSIS [...] ORDERABLES Final Res ult Performing Organization Address [facility]/ZIP Co de Phone Number [facility] [address] [place] [address], [place] [phone] * Baird urine culture tube (10/20/2024 8:00 PM EST) Extra Tube Hold for add-ons. 10/21/2024 11:01 AM [facility] Comment:Auto resulted. Urine Urine specimen obtained by clean catch procedure / Unknown Non-blood Collection / Unknown 10/20/2024 8:00 PM EST 10/21/2024 9:44 AM EST us Vanessa Winslow MD LAB URINE ORDERABLES Final Res ult Performing Organization Address City/[facility]/ZIP Co de Phone Number [facility] [address] [place] [address], [place] [phone] documented in this encounter Visit Diagnoses Diagnosis Urinary tract infection, site not specified documented in this encounter Care Teams Walking Dragline Operator Relationship Specialty Start Date End Date Juan Carlos Luna, PT PCP - General Internal Medicine 06/12/15 documented as of this encounter
== END 2025-10-19 13:46 | disposition home or self-care (01) ==
LOC: HO.HMCHD 13:45
PROVIDERS: PCP Student in an Organized Health Care Education/Training Program; Visit Provider Student in an Organized Health Care Education/Training Program
DX: R32 Unspecified urinary incontinence (principal); N40.1 Benign prostatic hyperplasia with lower urinary tract symptoms; I10 Essential (primary) hypertension; I48.20 Chronic atrial fibrillation, unspecified; E11.9 Type 2 diabetes mellitus without complications